=== PATIENT | female | born 1965 | race Caucasian/White ===

== ENCOUNTER → 2016-03-15 | Outpatient (CLI) | payer OTHER ==
--- NOTE | 2016-03-16 07:45 | REP ---
Clinical: Pain. Technique: AP, lateral, bilateral oblique and sunrise views of the left knee. Findings: Osteophyte formation along the lateral femoral condyle as well as tibial plateau and patellar margin are appreciated with associated increased sclerosis to the tibial surface and mild medial joint space narrowing. No acute fracture or dislocation. No obvious effusion. Impression: Mild tricompartmental osteoarthritic degenerative changes. Signed by Zachary Escamilla MD 03/16/2016 07:36 A
== END ==
LOC: M ADAMS 13:21
PROVIDERS: ATTEND Physician Assistant Medical
DX: M25.562 Pain in left knee (principal)

== ENCOUNTER → 2016-04-27 | Outpatient (CLI) | payer OTHER ==
--- NOTE | 2016-04-27 17:51 | REP ---
DUPLEX UPPER EXTREMITY ULTRASOUND: REASON: Arm pain. COMPARISON: None. Multiple sonographic images of the deep venous structures of the left upper extremity were obtained in the longitudinal and transverse scan planes along with Doppler interrogative technique, augmentation, and color flow imaging. There is a small amount of echogenic material seen in the left cephalic vein with a decreased response to augmentation. The remainder of the deep vein structures are normal. IMPRESSION: Small thrombus incompletely occluding the left cephalic vein questionably a deep venous structure. This should be correlated clinically with appropriate followup. Signed by Tommy Lin DO 04/27/2016 06:15 P
== END ==
LOC: M RAD 16:30
PROVIDERS: ATTEND Physician Assistant
DX: M77.12 Lateral epicondylitis, left elbow (principal)

== ENCOUNTER → 2016-04-27 | Outpatient (CLI) | payer OTHER ==
--- NOTE | 2016-04-27 16:00 | REP ---
Left elbow series: Five views: History: Lateral epicondylitis. Findings: Five views of the left elbow demonstrate normal alignment. Bones, joints, and soft tissues are unremarkable. No evidence of joint effusion, erosive change or periarticular calcification. No spurring is visible. Impression: Radiographically normal left elbow series. Signed by Maynor Bridges MD 04/27/2016 05:00 P
== END ==
LOC: M ADAMS 15:06
PROVIDERS: ATTEND Physician Assistant
DX: M77.12 Lateral epicondylitis, left elbow (principal)

== ENCOUNTER → 2016-04-27 | Outpatient (REF) | payer OTHER ==
[2016-04-27 20:18] LABS: BASO # 0.1 K/mm3 (0.0-0.2); BASO % 0.7 % (0.0-1.0); EOS # 0.2 K/mm3 (0.0-0.50); EOS % 1.8 % (0.0-3.0); LARGE UNSTAINED CELL # 0.4 K/mm3 (0.0-0.4); LARGE UNSTAINED CELL % 3.3 % (0.0-4.0); LYMPH # 3.8 K/mm3 (1.5-4.5); LYMPH % 36.5 % (24.0-44.0); MEAN CORPUSCULAR HEMOGLOBIN 31.9 pg (27.0-33.0); MEAN CORPUSCULAR HGB CONC 34.1 g/dl (32.0-36.5); MEAN CORPUSCULAR VOLUME 93.7 fl (80.0-96.0); MONO # 0.6 K/mm3 (0.0-0.8); MONO % 5.3 % (0.0-5.0); NEUTROPHILS # 5.5 K/mm3 (1.8-7.7); NEUTROPHILS % 52.4 % (36.0-66.0); PLATELET COUNT, AUTOMATED 234 k/mm3 (150-450); RED CELL DISTRIBUTION WIDTH 12.8 % (11.5-14.5); WHITE BLOOD COUNT 10.4 K/mm3 (4.0-10.0)
[2016-04-27 20:57] LABS: ERYTHROCYTE SEDIMENTATION RATE 15 mm/hr (0-20)
== END ==
LOC: M SFHCADAM 15:02
PROVIDERS: ATTEND Physician Assistant
DX: M77.12 Lateral epicondylitis, left elbow (principal)

== ENCOUNTER → 2016-06-08 | Outpatient (REF) | payer OTHER ==
[2016-06-08 19:39] LABS: MEAN CORPUSCULAR HEMOGLOBIN 31.9 pg (27.0-33.0); MEAN CORPUSCULAR HGB CONC 34.1 g/dl (32.0-36.5); MEAN CORPUSCULAR VOLUME 93.6 fl (80.0-96.0); RED CELL DISTRIBUTION WIDTH 13.2 % (11.5-14.5); WHITE BLOOD COUNT 10.9 K/mm3 (4.0-10.0)
== END ==
LOC: M SFHCADAM 14:18
PROVIDERS: ATTEND Physician Assistant
DX: I82.629 Acute embolism and thrombosis of deep veins of unspecified upper extremity (principal)

== ENCOUNTER 2016-12-04 05:09 | Emergency (ER) | payer OTHER, SELFPAY ==
[~2016-12-04] VITALS: Ht 160 cm; Wt 81.8 kg
[2016-12-04] MEDS ORDERED: METF500T13 PO (05:19)
[2016-12-04] MEDS ORDERED: LISI10TA4 PO (05:19)
[2016-12-04] MEDS ORDERED: XARE20TA PO (05:19)
[2016-12-04] MEDS ORDERED: METO50TA7 PO (05:19)
[2016-12-04] MEDS ORDERED: LEVO50TA5 PO (05:19)
[2016-12-04 05:21] VITALS: BP 138/100
== END 2016-12-04 07:30 | disposition left against medical advice (07) ==
LOC: M ED 05:09
DX: H57.9 Unspecified disorder of eye and adnexa (principal); Z53.29 Procedure and treatment not carried out because of patient's decision for other reasons

== ENCOUNTER 2016-12-11 15:02 | Emergency (ER) | payer OTHER, SELFPAY ==
[~2016-12-11] VITALS: Ht 160 cm; Wt 84.1 kg
[~2016-12-11 15:02] MED LIST: LEVO50TA5 PO; LISI10TA4 PO; METF500T13 PO; METO50TA7 PO; XARE20TA PO
[2016-12-11] MEDS ORDERED: TYLE325T5 PO (15:10)
[2016-12-11] MEDS ORDERED: ALBUTEROL SULFATE 2.5 MG/0.5 ML INH NEB SOLN NEB ONE (16:00)
--- NOTE | 2016-12-11 16:56 | REP ---
CHEST, TWO VIEWS: COMPARISON: 08/23/2014 There is no evidence of acute infiltrate. No pleural effusion is seen. The heart is normal in size. The mediastinal silhouette is unremarkable. The visualized osseous structures are intact. IMPRESSION: No acute pulmonary disease. Signed by Carlitos Barnhart MD 12/12/2016 07:56 P
[2016-12-11] MEDS ORDERED: predniSONE 20 MG TAB PO ONE (18:00)
[2016-12-11] MEDS ORDERED: ALBUTEROL 90 MCG/ACT 8GM HFA INHALER INH ONE (18:00)
[2016-12-11] MEDS ORDERED: PRED20TA PO (18:00)
[2016-12-11] MEDS ORDERED: PROAAER10 INH (18:02)
[2016-12-11 18:36] VITALS: BP 132/75
== END 2016-12-11 18:38 | disposition home or self-care (01) ==
LOC: M ED 15:02
DX: J20.9 Acute bronchitis, unspecified (principal); I10 Essential (primary) hypertension; E11.9 Type 2 diabetes mellitus without complications; Z86.718 Personal history of other venous thrombosis and embolism; J30.89 Other allergic rhinitis; F17.210 Nicotine dependence, cigarettes, uncomplicated

== ENCOUNTER → 2016-12-20 | Outpatient (REF) | payer OTHER ==
[~2016-12-20] MED LIST changes: +PRED20TA PO; +PROAAER10 INH; +TYLE325T5 PO
[2016-12-20 20:03] LABS: MEAN CORPUSCULAR HEMOGLOBIN 31.6 pg (27.0-33.0); MEAN CORPUSCULAR HGB CONC 33.3 g/dl (32.0-36.5); MEAN CORPUSCULAR VOLUME 94.9 fl (80.0-96.0); PLATELET COUNT, AUTOMATED 232 10^3/uL (150-450); RED CELL DISTRIBUTION WIDTH 13.2 % (11.5-14.5); WHITE BLOOD COUNT 11.3 10^3/uL (4.0-10.0)
[2016-12-20 20:43] LABS: ALBUMIN 3.3 GM/DL (3.2-5.2); ALBUMIN/GLOBULIN RATIO 0.85 (1.00-1.93); ALKALINE PHOSPHATASE 97 U/L (45-117); ALT/SGPT 41 U/L (12-78); ANION GAP 10 MEQ/L (8-16); AST/SGOT 26 U/L (15-37); BILIRUBIN,TOTAL 0.4 MG/DL (0.2-1.0); BLOOD UREA NITROGEN 6 MG/DL (7-18); CALCIUM LEVEL 9.1 MG/DL (8.5-10.1); CARBON DIOXIDE LEVEL 26 MEQ/L (21-32); CHLORIDE LEVEL 101 MEQ/L (98-107); CHOLESTEROL LEVEL 194 MG/DL (<200); GLOMERULAR FILTRATION RATE > 60.0 (>58); GLUCOSE, FASTING 142 MG/DL (70-105); POTASSIUM SERUM 4.4 MEQ/L (3.5-5.1); SODIUM LEVEL 137 MEQ/L (136-145); TOTAL PROTEIN 7.2 GM/DL (6.4-8.2); TRIGLYCERIDES LEVEL 466 MG/DL (<150)
== END ==
LOC: M SFHCADAM 11:44
PROVIDERS: ATTEND Physician Assistant
DX: I82.629 Acute embolism and thrombosis of deep veins of unspecified upper extremity (principal); E03.9 Hypothyroidism, unspecified; E11.9 Type 2 diabetes mellitus without complications; E78.5 Hyperlipidemia, unspecified; F17.200 Nicotine dependence, unspecified, uncomplicated; Z79.899 Other long term (current) drug therapy

== ENCOUNTER → 2017-03-28 | Outpatient (REF) | payer OTHER ==
[2017-03-28 20:20] LABS: HEMATOCRIT 44.8 % (36.0-47.0); HEMOGLOBIN 14.9 g/dl (12.0-16.0); MEAN CORPUSCULAR HEMOGLOBIN 31.5 pg (27.0-33.0); MEAN CORPUSCULAR HGB CONC 33.3 g/dl (32.0-36.5); MEAN CORPUSCULAR VOLUME 94.7 fl (80.0-96.0); PLATELET COUNT, AUTOMATED 229 10^3/uL (150-450); RED BLOOD COUNT 4.73 10^6/uL (4.00-5.40); RED CELL DISTRIBUTION WIDTH 12.8 % (11.5-14.5); WHITE BLOOD COUNT 11.7 10^3/uL (4.0-10.0)
[2017-03-28 20:37] LABS: ESTIMATED AVERAGE GLUCOSE 146 MG/DL (60-110); HEMOGLOBIN A1c 6.7 %
[2017-03-28 20:44] LABS: ALBUMIN 3.8 GM/DL (3.2-5.2); ALBUMIN/GLOBULIN RATIO 0.95 (1.00-1.93); ALKALINE PHOSPHATASE 84 U/L (45-117); ALT/SGPT 44 U/L (12-78); ANION GAP 7 MEQ/L (8-16); AST/SGOT 27 U/L (7-37); BILIRUBIN,TOTAL 0.4 MG/DL (0.2-1.0); BLOOD UREA NITROGEN 9 MG/DL (7-18); CARBON DIOXIDE LEVEL 28 MEQ/L (21-32); CHLORIDE LEVEL 104 MEQ/L (98-107); CREATININE FOR GFR 0.79 MG/DL (0.55-1.30); GLOMERULAR FILTRATION RATE > 60.0 (>58); GLUCOSE, FASTING 120 MG/DL (70-100); POTASSIUM SERUM 4.7 MEQ/L (3.5-5.1); SODIUM LEVEL 139 MEQ/L (136-145); TOTAL PROTEIN 7.8 GM/DL (6.4-8.2)
== END ==
LOC: M SFHCADAM 19:37
DX: E13.9 Other specified diabetes mellitus without complications (principal)

== ENCOUNTER → 2018-06-25 | Outpatient (REF) | payer OTHER ==
[2018-06-25 15:35] LABS: BLOOD UREA NITROGEN 8 MG/DL (7-18); CALCIUM LEVEL 9.3 MG/DL (8.5-10.1); CARBON DIOXIDE LEVEL 28 MEQ/L (21-32); CHLORIDE LEVEL 103 MEQ/L (98-107); CREATININE FOR GFR 0.84 MG/DL (0.55-1.30); GLOMERULAR FILTRATION RATE > 60.0 (>51); GLUCOSE, FASTING 149 MG/DL (70-100); POTASSIUM SERUM 4.7 MEQ/L (3.5-5.1); SODIUM LEVEL 137 MEQ/L (136-145)
[2018-06-25 15:53] LABS: HEMOGLOBIN A1c 7.5 %
== END ==
LOC: M SFHCADAM 12:59
PROVIDERS: ATTEND Physician Assistant
DX: I10 Essential (primary) hypertension (principal); E13.9 Other specified diabetes mellitus without complications

== ENCOUNTER → 2018-12-30 | Outpatient (REF) | payer OTHER ==
[2018-12-30 14:07] LABS: HEMATOCRIT 45.4 % (36.0-47.0); MEAN CORPUSCULAR HEMOGLOBIN 31.8 pg (27.0-33.0); MEAN CORPUSCULAR VOLUME 96.2 fl (80.0-96.0); PLATELET COUNT, AUTOMATED 228 10^3/uL (150-450); RED BLOOD COUNT 4.72 10^6/uL (4.00-5.40); WHITE BLOOD COUNT 9.7 10^3/uL (4.0-10.0)
[2018-12-30 14:22] LABS: ALBUMIN 3.6 GM/DL (3.2-5.2); ALT/SGPT 55 U/L (12-78); BILIRUBIN,TOTAL 0.6 MG/DL (0.2-1.0); BLOOD UREA NITROGEN 11 MG/DL (7-18); CALCIUM LEVEL 9.5 MG/DL (8.5-10.1); CARBON DIOXIDE LEVEL 29 MEQ/L (21-32); CHLORIDE LEVEL 102 MEQ/L (98-107); CHOLESTEROL LEVEL 133 MG/DL (<200); CREATININE FOR GFR 0.87 MG/DL (0.55-1.30); GLOMERULAR FILTRATION RATE > 60.0 (>51); GLUCOSE, FASTING 167 MG/DL (70-100); HDL CHOLESTEROL 35 MG/DL (>40); LDL CHOLESTEROL 19 MG/DL (<100); NON-HDL-C 98 MG/DL; POTASSIUM SERUM 4.4 MEQ/L (3.5-5.1); SODIUM LEVEL 140 MEQ/L (136-145); TOTAL PROTEIN 7.5 GM/DL (6.4-8.2); TRIGLYCERIDES LEVEL 395 MG/DL (<150)
[2018-12-30 14:44] LABS: MAU/CREAT RATIO 24.6 MCG/MG (0.0-30.0)
[2018-12-30 15:18] LABS: HEMOGLOBIN A1c 7.7 %
== END ==
LOC: M SFHCADAM 08:23
PROVIDERS: ATTEND Physician Assistant
DX: E03.9 Hypothyroidism, unspecified (principal); F17.210 Nicotine dependence, cigarettes, uncomplicated; E11.9 Type 2 diabetes mellitus without complications; E78.00 Pure hypercholesterolemia, unspecified

== ENCOUNTER → 2019-04-07 | Outpatient (REF) | payer OTHER ==
[2019-04-07 14:03] LABS: BLOOD UREA NITROGEN 11 MG/DL (7-18); CALCIUM LEVEL 9.5 MG/DL (8.5-10.1); CARBON DIOXIDE LEVEL 26 MEQ/L (21-32); CHLORIDE LEVEL 103 MEQ/L (98-107); CREATININE FOR GFR 0.81 MG/DL (0.55-1.30); FREE T4 1.14 NG/DL (0.76-1.46); GLOMERULAR FILTRATION RATE > 60.0 (>51); GLUCOSE, FASTING 147 MG/DL (70-100); POTASSIUM SERUM 4.7 MEQ/L (3.5-5.1); SODIUM LEVEL 138 MEQ/L (136-145)
[2019-04-07 14:34] LABS: HEMOGLOBIN A1c 7.4 %
== END ==
LOC: M SFHCADAM 09:59
PROVIDERS: ATTEND Physician Assistant
DX: E11.21 Type 2 diabetes mellitus with diabetic nephropathy (principal); E03.9 Hypothyroidism, unspecified

== ENCOUNTER 2019-05-15 07:35 | Inpatient (IN) | payer OTHER ==
[2019-05-15] VITALS (15 sets, daily range): BP systolic 112–179; BP diastolic 62–94
[~2019-05-15] VITALS: Ht 160 cm; Wt 87.8 kg
[~2019-05-15 07:35] MED LIST changes: +ceFAZolin SOD 2 GM in IV 1 EA IV ONE
[2019-05-15 08:11] LABS: BASO # 0.1 10^3/uL (0.0-0.2); BASO % 0.4 % (0.0-1.0); EOS # 0.2 10^3/uL (0.0-0.5); EOS % 1.4 % (0.0-3.0); HEMATOCRIT 41.1 % (36.0-47.0); HEMOGLOBIN 13.7 g/dl (12.0-15.5); LYMPH # 3.8 10^3/uL (1.5-5.0); LYMPH % 32.2 % (24.0-44.0); MEAN CORPUSCULAR HEMOGLOBIN 31.6 pg (27.0-33.0); MEAN CORPUSCULAR HGB CONC 33.3 g/dl (32.0-36.5); MEAN CORPUSCULAR VOLUME 94.7 fl (80.0-96.0); MONO # 0.9 10^3/uL (0.0-0.8); MONO % 7.2 % (0.0-5.0); NEUTROPHILS # 6.9 10^3/uL (1.5-8.5); NEUTROPHILS % 58.5 % (36.0-66.0); PLATELET COUNT, AUTOMATED 305 10^3/uL (150-450); RED BLOOD COUNT 4.34 10^6/uL (4.00-5.40); WHITE BLOOD COUNT 11.8 10^3/uL (4.0-10.0)
[2019-05-15] MEDS ORDERED: ACETAMINOPHEN 325 MG TAB PO ONE (08:30)
[2019-05-15] MEDS ORDERED: COMBIVENT RESPIMAT 100-20MCG INHALER 4GM INH ONE (08:30)
[2019-05-15 08:36] LABS: ALBUMIN 3.7 GM/DL (3.2-5.2); ALT/SGPT 30 U/L (12-78); BILIRUBIN,DIRECT 0.1 MG/DL (0.0-0.2); BILIRUBIN,TOTAL 0.3 MG/DL (0.2-1.0); BLOOD UREA NITROGEN 8 MG/DL (7-18); CALCIUM LEVEL 9.8 MG/DL (8.5-10.1); CARBON DIOXIDE LEVEL 24 MEQ/L (21-32); CHLORIDE LEVEL 100 MEQ/L (98-107); CK-MB VALUE MASS < 1.0 NG/ML (<3.6); CPK CREATINE PHOSPHOKINASE 76 U/L (26-192); CREATININE FOR GFR 0.85 MG/DL (0.55-1.30); GLOMERULAR FILTRATION RATE > 60.0 (>51); GLUCOSE, FASTING 157 MG/DL (70-100); LIPASE 216 U/L (73-393); MB/CK RELATIVE INDEX 1.32 (< OR =4); NT-PRO BNP 77 PG/ML (<125); POTASSIUM SERUM 4.5 MEQ/L (3.5-5.1); SODIUM LEVEL 132 MEQ/L (136-145); TOTAL PROTEIN 7.7 GM/DL (6.4-8.2); TROPONIN I < 0.02 NG/ML (< 0.10)
[2019-05-15] MEDS ORDERED: LEVO75TA4 PO (08:42)
[2019-05-15] MEDS ORDERED: ATOR40TA75 PO (08:42)
[2019-05-15] MEDS ORDERED: METF10004 PO (08:42)
[2019-05-15] MEDS ORDERED: GLUC500C37 PO (08:44)
[2019-05-15] MEDS ORDERED: VITA200028 PO (08:44)
--- NOTE | 2019-05-15 08:57 | REP ---
PORTABLE CHEST X-RAY: SINGLE VIEW. HISTORY: Chest pain. Comparison chest x-ray: December 11, 2016. FINDINGS: Cardiac silhouette is rather dramatically larger than it was December 11, 2016. Cardiac chamber enlargement versus pericardial effusion. There is mediastinal widening bilaterally as well. Vascular engorgement versus adenopathy. The lung zheng are clear. Pulmonary vasculature is not increased. Pleural angles are sharp. IMPRESSION: Moderate new cardiomegaly. Widened mediastinum most likely vascular engorgement. Cannot exclude adenopathy. Electronically Signed by Maynor Bridges MD 05/15/2019 09:31 A
[2019-05-15] MEDS ORDERED: ISOVUE-370 76% 100ML VIAL (Q9967) As Ordered ONE (09:26)
--- NOTE | 2019-05-15 10:24 | REP ---
CT PULMONARY ANGIOGRAM: With IV contrast. HISTORY: Chest pain. COMPARISON STUDIES: Comparison is made with today's portable chest x-ray. CONTRAST DOSE: 75 mL of Isovue [address] TECHNIQUE: Helical scanning is acquired and overlapping 1.5 mm and contiguous 3 mm axial images are reformatted. In addition, maximum intensity projection and multiplanar re-formation images are generated in sagittal and coronal imaging projections. CT PULMONARY ANGIOGRAPHIC FINDINGS: There is evidence of a diffuse goiter. In addition, there is bulky pretracheal and paratracheal mediastinal lymphadenopathy, measuring 6 x 6 cm in transverse dimension at the level of the top of the arch. This correlates with the mediastinal widening superiorly. There are scattered smaller nodes in the AP window region of the mediastinum and the just anterior to the superior vena cava. The superior vena cava is displaced laterally by the adenopathy and slightly compressed. It is patent. There is good opacification of the pulmonary arterial tree. There is no CT evidence to suggest pulmonary embolus. No aortic aneurysm or dissection is seen. There is however a large pericardial effusion and there is some flattening of the interventricular septum. Large pericardial effusion accounts for the widening of the cardiac silhouette on the radiographs. There is subcarinal lymphadenopathy. No visible upper abdominal nodes are seen. Visualized upper abdominal structures are unremarkable. The lung zheng are clear. No infiltrate is seen. No pleural effusion is seen. IMPRESSION: Bulky mediastinal lymphadenopathy. Large pericardial effusion. Slight straightening of the interventricular septum which may be a feature of right heart strain . Diffuse goiter at the thoracic inlet. Mild compression of the superior vena cava. Findings suggestive of lymphoma versus other metastatic malignancy with secondary pericardial effusion. Electronically Signed by Maynor Bridges MD 05/15/2019 12:08 P
[2019-05-15] MEDS ORDERED: BISACODYL 10 MG SUPP PR PRN (10:30)
[2019-05-15] MEDS ORDERED: ACETAMINOPHEN TAB 650MG DOSE (2X325MG) PO PRN (10:30)
[2019-05-15] MEDS ORDERED: ONDANSETRON 4MG/2ML VIAL (J2405) IV PRN ×2 (10:30→17:00)
[2019-05-15] MEDS ORDERED: LEVALBUTEROL 1.25 MG/0.5 ML CONCENTRATE NEB NEB PRN (10:30)
[2019-05-15 10:45] LABS: INR 1.01
[2019-05-15] MEDS ORDERED: ACET-683 PO (10:51)
[2019-05-15] MEDS ORDERED: THERTAB52 PO (10:53)
[2019-05-15] MEDS ORDERED: ACETAMINOPHEN 500 MG TAB PO PRN (11:15)
[2019-05-15] MEDS: MOM 30ML SUSPENSION UDC PO SCH (11:25)
[2019-05-15] MEDS ORDERED: GLUCOSE 4 GM CHEW TABLET PO PRN (11:45)
[2019-05-15] MEDS ORDERED: DEXTROSE 50% 50 ML SYRINGE IV PRN (11:45)
[2019-05-15] MEDS ORDERED: GLUCAGON FOR INJ 1 MG VIAL (J1610) SC PRN (11:45)
[2019-05-15] MEDS: HumaLOG INSULIN (NovoLOG) PER UNIT SC SCH ×2 (12:00→18:02)
[2019-05-15] MEDS ORDERED: BUPIVACAINE HCL 0.25% 10 ML VIAL As Ordered ONE (12:13)
[2019-05-15] MEDS ORDERED: BUPIVACAINE LIPOSOME/PF 1.3% 20ML VIAL (13.3MG/ML)(EXPAREL)(C9290 PER1MG) As Ordered ONE ×2 (12:13→14:08)
[2019-05-15] MEDS ORDERED: THROMBIN SOLN 20,000 UNITS KIT As Ordered ONE (12:25)
[2019-05-15] MEDS ORDERED: EPINEPHrine 1MG/10ML SYRINGE 1.5IN As Ordered ONE (12:26)
[2019-05-15] MEDS ORDERED: CETACAINE SPRAY 5GM As Ordered ONE (12:26)
[2019-05-15] MEDS ORDERED: MUPIROCIN 2% OINT 22 GM TUBE As Ordered ONE (12:26)
[2019-05-15] MEDS ORDERED: ALBUTEROL SULFATE 2.5 MG/0.5 ML INH NEB SOLN NEB PRN (12:30)
[2019-05-15] MEDS: PANTOPRAZOLE 40MG TAB (PROTONIX) PO SCH (12:30)
[2019-05-15] MEDS: DOCUSATE SODIUM 100 MG CAP PO SCH ×2 (12:30→20:37)
[2019-05-15] MEDS: KETOROLAC 30 MG/ML VIAL (J1885) IV SCH ×2 (12:30→17:41)
[2019-05-15] MEDS: HEPARIN SOD (PORCINE) 5000 UNITS/ML VIAL (J1644 PER 1000UNITS) SC SCH ×2 (12:30→20:36)
[2019-05-15 13:04] LABS: CK-MB VALUE MASS < 1.0 NG/ML (<3.6); CPK CREATINE PHOSPHOKINASE 70 U/L (26-192); MB/CK RELATIVE INDEX 1.43 (< OR =4); NT-PRO BNP 63 PG/ML (<125); TROPONIN I < 0.02 NG/ML (< 0.10)
[2019-05-15] MEDS ORDERED: ceFAZolin 2 GM/D5W 50 ML IV BAG (J0690 PER 500MG) As Ordered ONE (13:08)
--- NOTE | 2019-05-15 13:32 | HPE ---
DATE OF ADMISSION: 05/15/2019 CHIEF COMPLAINT: "my ears felt clogged. I couldn't lay down in bed." HISTORY OF PRESENT ILLNESS: This is a 54-year-old female who presented to the emergency room with sinus and ear problems since Sunday into Sunday. The patient says that her ears felt clogged and that she could not breathe very well through her nose. She otherwise denies any fever or chills. She has a chronic cough on and off, but usually clear. She had taken some Tylenol without any improvement. She took some sinus severe over the counter acetaminophen without any improvement. She thought that her cough was due to allergies that she gets this time of year. She has noticed that when she lays down at less than 45 degrees that she has trouble breathing and cannot get comfortable. She otherwise denies any night sweats. She denies any shortness of breath. She says that she is able to walk her four dogs around [place] one lap per dog without any difficulty. She denies any dyspnea on exertion. No chest pain, pressure or tightness. No lightheadedness or dizziness. She otherwise denies any weight loss when she was seen by Yeny Joiner in March, she weighs around 193 pounds and has not changed since. Her appetite has been the same. She denied any weakness, fatigue. She does get some diarrhea when she eats greasy food, but has not had any for a long time. She denies any bright red blood per rectum, melena or black tarry stools. [place] and says that she was managing okay, cooking and cleaning, doing the laundry, without any difficulty. She came into the hospital today because of the persistent sinus congestion as well as difficulty laying down in bed with some congestion. The patient denies any documented weight loss. She denies any night sweats. No changes in energy. Her appetite has been the same. She has had no recent travel and no sick contacts. The patient continues to smoke cigarettes, but has no diagnosis of chronic obstructive pulmonary disease (COPD) or emphysema. She is down to a 1/2 pack per day from her chronic 1 pack a day since she was a teenager. She otherwise has not had any use of any inhalers. She has not seen a airline reservationist in the past. Never had any heart issues or heart attack. She is a known diabetic and hypertensive. No headaches. No changes in vision. In the ER, she was found to have cardiomegaly on chest x-ray and tachycardic. CT of chest performed shows a large pericardial effusion. Dr. Woody Quispe, thoracic surgery, was consulted for stat echo. The patient has been kept nothing by mouth (n.p.o.) to go into the OR. She has bulky lymphadenopathy. Differential diagnosis includes lymphoma or primary lung cancer in light of the smoking history. The hospitalist was called to admit. The patient has been signed out to Dr. Silvino Cardona, [facility] provider, today. PAST MEDICAL HISTORY: 1. Diabetes. 2. Hypertension. 3. Hypercholesterolemia. 4. Active smoking, has smoked over 30 pack years of smoking and still at less than 1/2 a pack per day. 5. Hypothyroidism. 6. Bilateral degenerative disk disease of the hips. 7. Lumbar disk disease. 8. She had a deep vein thrombosis (DVT) in the upper arm in 2017, completed anticoagulation. 9. Nicotine dependence. ALLERGIES: No known drug allergies. SURGICAL HISTORY: 1. Tubal ligation. HOME MEDICATIONS: - metformin 1 gram twice a day and 500 q.p.m. - glucosamine one tablet twice a day - multivitamin one tablet q.p.m. - Tylenol 1 gram q. 6 hours as needed - Atorvastatin 40 mg q.p.m. - Vitamin D 2000 units q.p.m. - levothyroxine 75 mg q.a.m. - lisinopril 10 mg q.p.m. 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 She lives in [place] along with her and four dogs. She has a glass of wine, the last one was New Years Saundra. She does not usually drink on a weekly basis. Denies any recreational drug use. The patient had been smoking a pack a day since she was a teenager and down to about a 1/2 pack a day now, about a 30 pack year history of smoking. No other relatives in the home. No other pets. No recent travel. No sick exposure. FAMILY HISTORY: Mother is with heart failure at age 74, diabetes, hypertension, and hypercholesterolemia. Father still alive, age 75, with hypertension, Meniere's disease. She has one brother and one sister, both of which have hypertension. Maternal grandmother with questionable cancer. No breast, colon, or ovarian cancer in the family. REVIEW OF SYSTEMS: Per history of present illness (HPI), 12 point system otherwise negative. PHYSICAL EXAMINATION: Temperature 97.8, pulse 105, respiratory rate 20, blood pressure 140/66, 98% on room air. Generally, the patient is awake, alert and oriented times three, answering questions appropriately. She is in no respiratory distress. Currently at 45 degrees angle on the bed in the intensive care unit with an echo being done at the bedside. The patient has jugular venous distention (JVD). No thyromegaly or cervical lymphadenopathy. Moist mucous membranes. Pupils round and reactive, anicteric, with no jaundice. No use of respiratory accessory muscles. There is no carotid bruit. No stridor. Lungs are clear to auscultation. No wheezing, rales or rhonchi. Air entry is equal. Heart: S1, S2. Distant heart sounds with slightly displaced point of maximal impulse. Positive jugular venous distention. Abdomen is soft, nontender and nondistended. Obese abdomen. Extremities: No cyanosis or clubbing. Skin: [place] in color, dry, warm to touch. LABORATORY DATA: White count 11.8, hemoglobin 13, hematocrit 41, platelet count 305, with 58% neutrophils, 32% lymphocytes, 7% monocytes, 1.4 eosinophils. Sodium 132, potassium 4.5, chloride 100, bicarbonate 24, BUN 8, creatinine 0.85, glucose 157, calcium 9.8, total bilirubin 0.3, direct bilirubin 0.1, AST 13, ALT 30, alkaline phosphatase 70, total CK 76, MB fraction less than 1, troponin less than 0.02, BNP 77, total protein 7.7, albumin 3.7, lipase 216. INR 1.01. Respiratory panel 05/15/[address] is negative. IMAGING STUDIES: CT of chest with evidence of diffuse goiter. In addition, there is bulky pretracheal and peritracheal mediastinal lymphadenopathy measuring 6x6 cm in transverse dimension at the level of the arch, correlating with mediastinal widening superiorly. There are scattered smaller nodes in the AP window of the mediastinum anterior to superior vena cava. The superior vena cava is displaced laterally by the adenopathy and slightly compressed. It is patent. There is good opacification of the pulmonary arterial tree. There is no CT evidence to suggest pulmonary embolism. There is a large pericardial effusion and flattening of the interventricular septum that accounts for widening of the cardiac silhouette on the radiograph. There is a subcarinal lymphadenopathy with no visible upper abdominal nodes. Visualized upper abdominal structures are unremarkable. The lungs are clear. No infiltrate is seen. No pleural effusion is seen. Bulky mediastinal lymphadenopathy. Large pericardial effusion. Slight straightening of the interventricular septum which may be a feature of right heart strain. Diffuse goiter at the thoracic inlet. Mild compression of the superior vena cava. Findings suggestive of lymphoma versus other metastatic malignancy with secondary pericardial effusion. ASSESSMENT AND PLAN: This is a 54-year-old female with history of diabetes, hypertension, obesity, hypercholesterolemia, and active smoking, who presents to the emergency room with complaints of unable to lie down, feeling uncomfortable, with nasal congestion and ear fullness. The patient was found to have a large pericardial effusion with bulky mediastinal and hilar lymphadenopathy and diffuse goiter. She was admitted as an inpatient to the intensive care unit for emergency pericardial window. IMPRESSION: 1. Large pericardial effusion. In light of previous history of smoking and bulky lymphadenopathy, most likely secondary to a malignancy. Whether this is primary or due to lymphoma, we are currently uncertain. Thoracic surgeon, Dr. Woody Quispe, has been consulted for an emergent pericardial window and possible drainage placement. She is currently kept n.p.o. on IV fluids. Hyperglycemic protocol in light of her history of diabetes. Her has been made aware of the emergent need to bring her to surgery and stat echocardiogram has been performed. She still has good blood pressure, maintaining 140 to 150 and 98% on room air. Depending on the cytology report, will defer to Dr. Silvino Cardona, who is the [facility] physician secondary connector armature today to consult medical oncology in the near future. Will check Coxsackie virus, LOIS, as part of the differential. 2. Goiter. Check thyroid function tests and adjust patient's Synthroid as needed. Due to recent contrast study, we are unable to get radioactive iodine thyroid uptake scan, but may benefit from a thyroid ultrasound, which can be deferred in light of the emergent need for pericardial window today. 3. Hypertension. Currently controlled on metoprolol and lisinopril. Patient is not suffering for acute hypotension and does not appear to be in tamponade at this time. 4. Active smoking. The patient has been given a nicotine patch. She has been counseled about smoking cessation in light of the bulky lymphadenopathy and pericardial effusion. There is still a likelihood that this could be a primary lung cancer. We will await the cytology reports. Nebulizer treatments as needed. She does not appear to have any significant wheezing. Her lungs are clear on auscultation. 5. Type 2 diabetes. Due to n.p.o. status, the patient will be kept on IV fluids while nothing by mouth as she is headed to the operating room for a pericardial window. Hyperglycemic protocol and finger sticks every 6 hours. Hold oral hypoglycemics during the hospital stay in light of the recent IV contrast. Her metformin will also be held due to increased risk of lactic acidosis. 6. Vitamin D deficiency. Once she is taking oral intake, she may be resumed back on her home dose of vitamin D. 7. Hypercholesterolemia. Check lipid panel in the morning. 8. Obesity. Body mass index (BMI) of 34. Complicating care. No documented history of any obstructive sleep apnea. 9. Deep vein thrombosis prophylaxis. Compression stockings. The patient is going to the operating room and cannot be placed on anticoagulant. 10. Diet. Nothing by mouth status with IV fluids as the patient is going to the operating room. Patient has been signed out to [facility] Provider, Dr. Silvino BROWN
[2019-05-15] MEDS ORDERED: ROCURONIUM BROMIDE 50 MG/5 ML VIAL As Ordered ONE ×2 (13:35→13:46)
[2019-05-15] MEDS ORDERED: LIDOCAINE 2% INJ 100 MG/5 ML SDV (FOR ANES.) As Ordered ONE (13:35)
[2019-05-15] MEDS ORDERED: dexameTHASONE 4 MG/ML 1ML VIAL (J1100) As Ordered ONE (13:35)
[2019-05-15] MEDS ORDERED: propofoL 200 MG/20 ML VIAL As Ordered ONE (13:35)
[2019-05-15] MEDS ORDERED: MIDAZOLAM INJ 2 MG/2 ML VIAL (J2250) As Ordered ONE ×2 (13:35→16:11)
[2019-05-15] MEDS ORDERED: ONDANSETRON 4MG/2ML VIAL (J2405) As Ordered ONE (13:35)
[2019-05-15] MEDS ORDERED: fentaNYL 100 MCG/2 ML INJECTION (J3010) As Ordered ONE ×2 (13:35→13:36)
[2019-05-15] MEDS ORDERED: PHENYLephrine HCL 500 MCG/5 ML (100MCG/ML) SYRINGE (J2370) As Ordered ONE ×2 (13:38→13:44)
[2019-05-15] MEDS ORDERED: SUGAMMADEX SODIUM 500 MG/5 ML VIAL (BRIDION) As Ordered ONE (13:47)
--- NOTE | 2019-05-15 13:53 | CR ---
DATE OF CONSULTATION: 05/15/2019 The patient seen at the request of Dr. Husain and the hospitalist service for pericardial effusion and a mediastinal mass. HISTORY OF PRESENT ILLNESS: The patient is a 54-year-old white female who has noticed that her sinuses and her nose have been stuffy and running. She, however, has not had a cough nor sputum production. She has noticed that the last 3 days, she has not been able to lie flat and has propped herself up on pillows in order to breathe at night. Nonetheless, she does not complain of shortness of breath on exertion and is able to walk all four of her dogs without difficulty. When she does cough, she has increased chest pain. The chest pain is centered in the middle of the chest. Her cough has come in paroxysms. She attributed her cough to a postnasal drip. She has had no fevers, chills, or sweats, and no weight loss. She was seen in the emergency room where a chest x-ray revealed a large globular heart, and a chest CT revealed a moderate pericardial effusion with a large mediastinal mass. PAST MEDICAL HISTORY: 1. Diabetes. 2. Hypertension. 3. Hypercholesterolemia. 4. Hypothyroidism. PAST SURGERIES: A tubal ligation at the age of 28. 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 EXPOSURES: She has four dogs, David, at home. No birds or cats. No prior exposure to tuberculosis. HABITS: She smokes about 1/2 pack per day of cigarettes that she obtains from the [facility] [place]. She does not imbibe alcohol and no illicit drugs. TRAVEL HISTORY: No travel to the [facility] or [facility]. No foreign travel. FAMILY HISTORY: Mother of cardiac complications. Father is alive and well with diabetes. REVIEW OF SYSTEMS: CONSTITUTIONAL: See history of present illness (HPI). EYES: Without diplopia, amaurosis fugax, or prior jaundice. NOSE: Without epistaxis. MOUTH: Has dentures. PULMONARY: See HPI. CARDIAC: See HPI. Without intermittent claudication. Has noted some increased swelling in her ankles lately and indentation of her legs with her socks. No prior history of myocardial infarction. GASTROINTESTINAL (GI): Without nausea, vomiting, diarrhea, constipation, melena, hematochezia, hematemesis, or abdominal pain. GENITOURINARY (): Without hematuria or dysuria or prior history of renal stones. ENDOCRINE: With diabetes and with hypothyroidism. NEUROLOGICAL: Without paresthesias, paralyses, or prior seizures. HEMATOLOGIC: Without prolonged bleeding times. PSYCHIATRIC: Without pathological anxieties, depressions, or psychoses. INVESTIGATIONS: White count is 11.8 with a hemoglobin and hematocrit of 13.7 and 41.1 with a platelet count of 305. Differential shows 58% neutrophils, 32% lymphocytes, and 7% monocytes. There are no immature forms, no toxic granulations. Her electrolytes show a sodium of 132 with the remainder of electrolytes normal. The BUN and creatinine of 8 and 0.85 and a glucose of 157, an AST and ALT of 13 and 30 respectively. Albumin is 3.7. Troponin is less than 0.02. PT/INR is 13.0 and 1.01 respectively. Her chest x-ray shows a very large globular heart. It is done portably. Costophrenic angles are sharp. I see no infiltrates on the AP view. Chest CT done with contrast under angiographic protocol does not show a pulmonary embolism. She has a large mediastinal mass which measures 6 x 6 cm. It is not compressing the trachea. The esophagus is displaced. It extends almost to the sternal notch. She has a concentric pericardial effusion, however, more posterior than lateral. Maximum measurements are 2 cm laterally and 1 cm anteriorly. I do not see any lung masses per se. There are no liver lesions in that portion of the liver that is visualized on the CT scan. Adrenals have a normal configuration. The spleen looks to have a normal size. SVC is compressed to 6 x 8 mm just superior to right pulmonary artery crossing beneath it. Echocardiogram shows right atrial collapse. There is not enough room anteriorly to safely place a tube pericardiostomy per continuously. IMPRESSION: 1. Pericardial effusion. 2. Mediastinal mass. 3. Diabetes. 4. Hypertension. 5. Hypothyroidism. 6. Hypercholesterolemia. 7. Impending SVC syndrome with SVC compression PLAN AND DISCUSSION: The first order of business is to relieve the pericardial effusion. I will, therefore, take her to the operating room where I will undertake a pericardial window. Will then proceed to a mediastinoscopy and take samples of the mass. Hopefully, we will have a diagnosis by end of the day or at least by tomorrow. I will send them for frozen sections, as well as permanent sections. The patient understands the risks and benefits of the operation and is willing to proceed. I have spoken to her over the phone, as he is not allowed in the hospital per Department of Health ([place]) directive. MTDD
[2019-05-15] MEDS: LEVALBUTEROL 1.25 MG/0.5 ML CONCENTRATE NEB NEB SCH ×2 (14:00→20:01)
[2019-05-15] MEDS ORDERED: NORCO, ANEXSIA 5/325MG TABLET (HYDROcodone/ACETAMINOPHEN) PO PRN (14:30)
[2019-05-15] MEDS ORDERED: PERCOCET 5MG/325MG TAB PO PRN ×2 (14:30)
[2019-05-15 15:00] LABS: APPEARANCE, BODY FLUID TURBID (CLEAR); SOURCE, BODY FLUID PERICARDIAL; SPEC. GRAVITY BODY FLUIDS 1.036 (NOT ESTABLISHED)
[2019-05-15 15:01] LABS: PH BODY FLUID 7.784 UNITS (NOT ESTABLISHED); SOURCE, BODY FLUID pH PERICARDIAL
[2019-05-15 15:35] LABS: LDH, BODY FLUID 847 U/L (NOT ESTABLISHED); SOURCE, BODY FLUID ALBUMIN PERICARDIAL; SOURCE, BODY FLUID GLUCOSE PERICARDIAL; SOURCE, BODY FLUID LDH PERICARDIAL; SOURCE, BODY FLUID TOT PROTEIN PERICARDIAL; TOTAL PROTEIN, BODY FLUID 6.2 G/DL (NOT ESTABLISHED)
[2019-05-15] MEDS ORDERED: ACETAMINOPHEN 1000MG 100ML IV BTL (OFIRMEV) (J0131 PER 10MG) As Ordered ONE (15:38)
[2019-05-15] MEDS ORDERED: HYDROmorphone HCL 2 MG/ML 1ML VIAL (J1170) As Ordered ONE (16:16)
[2019-05-15 16:51] LABS: ABG BASE EXCESS -5.6 (-2.0-2.0); ABG HCO3 20.9 MEQ/L (22.0-26.0); ABG PARTIAL PRESSURE CO2 44.4 mmHg (35.0-45.0); ABG PARTIAL PRESSURE O2 81.4 mmHg (75.0-100.0); ABG STANDARD HCO3 19.8 MEQ/L (22.0-26.0); ABG TOTAL CO2 22.2 MEQ/L (22.0-29.0)
[2019-05-15] MEDS ORDERED: LR 1,000 ML IV SCH (17:00)
[2019-05-15] MEDS ORDERED: oxyCODONE 5MG TAB PO PRN (17:00)
[2019-05-15] MEDS ORDERED: METOCLOPRAMIDE INJ 10MG/2ML VIAL (J2765) IV PRN (17:00)
[2019-05-15] MEDS ORDERED: fentaNYL 100 MCG/2 ML INJECTION (J3010) IV PRN (17:00)
[2019-05-15 17:09] LABS: BASO % 0.2 % (0.0-1.0); EOS % 0.2 % (0.0-3.0); HEMATOCRIT 40.4 % (36.0-47.0); HEMOGLOBIN 13.4 g/dl (12.0-15.5); LYMPH # 2.6 10^3/uL (1.5-5.0); LYMPH % 15.1 % (24.0-44.0); MEAN CORPUSCULAR HEMOGLOBIN 31.8 pg (27.0-33.0); MEAN CORPUSCULAR HGB CONC 33.2 g/dl (32.0-36.5); MEAN CORPUSCULAR VOLUME 95.7 fl (80.0-96.0); MONO # 0.4 10^3/uL (0.0-0.8); MONO % 2.4 % (0.0-5.0); NEUTROPHILS % 81.4 % (36.0-66.0); PLATELET COUNT, AUTOMATED 303 10^3/uL (150-450); RED BLOOD COUNT 4.22 10^6/uL (4.00-5.40); WHITE BLOOD COUNT 17.2 10^3/uL (4.0-10.0)
[2019-05-15 17:13] LABS: BLOOD UREA NITROGEN 7 MG/DL (7-18); CALCIUM LEVEL 8.1 MG/DL (8.5-10.1); CARBON DIOXIDE LEVEL 22 MEQ/L (21-32); CHLORIDE LEVEL 105 MEQ/L (98-107); GLOMERULAR FILTRATION RATE > 60.0 (>51); GLUCOSE, FASTING 236 MG/DL (70-100); SODIUM LEVEL 135 MEQ/L (136-145)
--- NOTE | 2019-05-15 17:16 | REP ---
PORTABLE CHEST: AP portable view of the chest is performed and compared to prior study of 05/15/2019, earlier today. A drainage tube is seen overlying the right lung base and another is seen overlying the upper abdomen just to the right of midline. There has been drainage of the large pericardial effusion. There is a small amount of pericardial air noted. The cardiac silhouette has significantly decreased in size. Mediastinal mass is again noted. There appears to be a tiny right apical pneumothorax present. No infiltrate is seen in either lung. Electronically Signed by Carlitos Barnhart MD 05/15/2019 05:45 P
[2019-05-15] MEDS: KCL 20MEQ IN D5/NS 1000ML 1,000 ML IV SCH (17:40)
--- NOTE | 2019-05-15 17:43 | REPVR ---
PROCEDURE INFORMATION: Exam: CT Chest Without Contrast Exam date and time: 05/15/2019 4:54 PM Age: 54 years old Clinical indication: Other: Mediastinal hematoma; Additional info: Mediastinal hematoma after mediastinoscopy? ? TECHNIQUE: Imaging protocol: Computed tomography of the chest without contrast. 3D rendering: MIP and/or 3D reconstructed images were created by the technologist. Radiation optimization: All CT scans at this facility use at least one of these dose optimization techniques: automated exposure control; mA and/or kV adjustment per patient size (includes targeted exams where dose is matched to clinical indication); or iterative reconstruction. COMPARISON: CT ANGIO CHEST 05/15/2019 9:38 AM FINDINGS: Thyroid: Redemonstration of enlarged thyroid gland, potentially reflecting goiter. Lungs: Inferior approach right thoracostomy catheter in place. Trace right apical pneumothorax, likely secondary to placement of thoracostomy tube. Linear atelectasis in the right lower lobe. Heart: No cardiomegaly. Resolution of previously seen pericardial effusion, status post placement of inferior drainage catheter. Mediastinum: Small degree of anterior mediastinal gas, likely postprocedural. Aorta: Mild atherosclerotic calcifications of the aorta. Lymph nodes: Redemonstration of bulky conglomerate mediastinal adenopathy versus mediastinal mass. Bones/joints: No acute osseus lesion or fracture. Soft tissues: Postprocedural gas within the soft tissues of the anterior chest wall and neck. IMPRESSION: 1. Postoperative changes compatible with mediastinoscopy and placement of multiple surgical drains/tubes, as detailed above. 2. No evidence of acute anterior mediastinal hematoma. 3. Redemonstration of bulky conglomerate mediastinal adenopathy versus mediastinal mass. 4. Trace right apical pneumothorax, likely secondary to placement of right thoracostomy tube. 5. Resolution of previously seen pericardial effusion, status post placement of inferior drainage catheter. 6. Redemonstration of enlarged thyroid gland, potentially reflecting goiter. Recommend correlation with thyroid ultrasound. Electronically signed by: Maxim Mckeon On 05/15/2019 17:42:55 PM
[2019-05-15] MEDS: dexameTHASONE 20 MG/5 ML VIAL (J1100) IV SCH (18:02)
[2019-05-15] MEDS: METOPROLOL TART 50 MG TAB PO SCH (20:36)
[2019-05-15] MEDS: ceFAZolin SOD 1 GM in D5W MINI-BAG PLUS 50 ML IV SCH (20:37)
[2019-05-15] MEDS ORDERED: ATORVASTATIN 20 MG TAB PO SCH (21:00)
[2019-05-15] MEDS ORDERED: lisinopriL 10 MG TAB PO SCH (21:00)
[2019-05-15] MEDS ORDERED: VITAMIN D 1,000 INTERNATIONAL UNITS TABLET PO SCH (21:00)
[2019-05-16] VITALS (12 sets, daily range): BP systolic 116–187; BP diastolic 59–82
--- NOTE | 2019-05-16 00:35 | CR ---
DATE OF CONSULTATION: 05/15/2019 Extremely brief initial consult note. 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 REFERRING PHYSICIAN: Woody Quispe MD HISTORY OF PRESENT ILLNESS: Ms. Garvey is a 54-year-old woman with smoking history, presented to the emergency room following 3 days during which she has progressive inability to lie flat at night because of breathing difficulties, which she attributed to nasal congestion. She had apparently had no change in her baseline exercise tolerance but developed increasing chest pain when she coughed. On admission to the hospital today, plain chest x-ray showed moderate cardiomegaly and a widened mediastinum. CT angio showed bulky mediastinal lymphadenopathy and a large pericardial effusion with slight straightening of the interventricular septum suggesting right heart strain. In addition, diffuse goiter present. Mild SVC compression. The patient underwent a procedure under Dr. Quispe to decompress the pericardium. The patient tolerated procedure well but did have some bleeding. Her hemoglobin and hematocrit normal on admission. Preliminary pathology from pericardial lymph node and fluid cytology positive for small cell lung carcinoma. The patient was seen in the intensive care unit (ICU) shortly after she returned from the CT suite. Chest CT showed re-demonstration of enlarged thyroid, trace right apical pneumothorax likely secondary to thoracostomy tube, resolution of previously seen pericardial effusion, no cardiomegaly, small degree of anterior mediastinal gas, likely post procedural, and re-demonstration of bulky conglomerate mediastinal adenopathy versus mediastinal mass. Sugey was groggy, able to answer questions with one word but clearly unable to fully attend and be interviewed. She was informed of the cancer diagnosis by Dr. Quispe, and repeated back that she understood she had cancer. Dr. Quispe and I briefly spoke to her about the need for treatment fairly urgently with chemotherapy and radiation if possible. She did not engage in this conversation. Dr. Quispe contacted the patient's . IMPRESSION: Small cell lung carcinoma with large mediastinal conglomerate adenopathy versus mass, malignant pericardial effusion status post pericardiocentesis. Whether limited or advanced or extensive stage unclear. SVC impingement by mediastinal mass on imaging; no clinical evidence of neck swelling, facial swelling on inspection. PLAN: 1. Ms. Garvey needs immediate treatment for her small cell to prevent evolution to superior vena cava syndrome. As a temporizing measure, dexamethasone 10 mg three times a day should be started. This was discussed with Dr. Cardona. He is putting in the order. 2. Between Dr. Cardona, Dr. Quispe, and myself, we discussed optimal treatment for Ms. Garvey, which would be combined chemo radiation. Earlier in the evening, I discussed this with our nurse manager intermediate and with Dr. Jarvis Kilgore of radiation oncology. There will be difficulties delivering treatment over the weekend based on facility availability of radiation personnel, the same applies for chemotherapy. Because of this, we have all agreed as a first measure we will seek transfer to outside hospital where treatment could be immediately begun and continued. However, provisionally I have written orders and discussed with pharmacy carboplatin/etoposide with oral etoposide possibly being substituted on days two and three if it is available to us in appropriate time. I will return to interviewing and examine Sugey when she is more lucid. 3. Recommend CT abdomen/pelvis, head complete staging. Thank you for this consult. Will follow. 05/16/19 addendum: pt is to be transferred to [facility] for urgently needed treatment that cannot be administered here MTDD
[2019-05-16] MEDS: LEVALBUTEROL 1.25 MG/0.5 ML CONCENTRATE NEB NEB SCH ×2 (01:19→07:45)
[2019-05-16] MEDS: dexameTHASONE 20 MG/5 ML VIAL (J1100) IV SCH ×2 (01:25→10:25)
[2019-05-16] MEDS: KCL 20MEQ IN D5/NS 1000ML 1,000 ML IV SCH (04:37)
[2019-05-16] MEDS: KETOROLAC 30 MG/ML VIAL (J1885) IV SCH ×3 (05:33→12:21)
[2019-05-16] MEDS: ceFAZolin SOD 1 GM in D5W MINI-BAG PLUS 50 ML IV SCH ×2 (05:33→12:21)
[2019-05-16] MEDS: HumaLOG INSULIN (NovoLOG) PER UNIT SC SCH ×4 (05:34→12:21)
[2019-05-16 05:43] LABS: BASO % 0.1 % (0.0-1.0); HEMATOCRIT 38.5 % (36.0-47.0); HEMOGLOBIN 12.9 g/dl (12.0-15.5); LYMPH # 1.2 10^3/uL (1.5-5.0); LYMPH % 7.4 % (24.0-44.0); MEAN CORPUSCULAR HEMOGLOBIN 31.2 pg (27.0-33.0); MEAN CORPUSCULAR HGB CONC 33.5 g/dl (32.0-36.5); MEAN CORPUSCULAR VOLUME 93.2 fl (80.0-96.0); MONO # 0.6 10^3/uL (0.0-0.8); MONO % 3.5 % (0.0-5.0); NEUTROPHILS # 13.8 10^3/uL (1.5-8.5); NEUTROPHILS % 88.4 % (36.0-66.0); PLATELET COUNT, AUTOMATED 283 10^3/uL (150-450); RED BLOOD COUNT 4.13 10^6/uL (4.00-5.40); WHITE BLOOD COUNT 15.6 10^3/uL (4.0-10.0)
[2019-05-16 05:58] LABS: ABG BASE EXCESS -3.2 (-2.0-2.0); ABG HCO3 20.1 MEQ/L (22.0-26.0); ABG O2 SATURATION 95.4 % (95.0-99.0); ABG PARTIAL PRESSURE CO2 31.2 mmHg (35.0-45.0); ABG PARTIAL PRESSURE O2 75.6 mmHg (75.0-100.0); ABG STANDARD HCO3 21.8 MEQ/L (22.0-26.0); ABG TOTAL CO2 21.1 MEQ/L (22.0-29.0); ABG pH (ARTERIAL) 7.427 UNITS (7.350-7.450)
[2019-05-16] MEDS ORDERED: MUPIROCIN 2% OINT 22 GM TUBE TOP ONE (06:00)
[2019-05-16] MEDS ORDERED: LEVOTHYROXINE 75MCG TABLET (0.075MG) PO SCH (06:00)
[2019-05-16 06:01] LABS: BLOOD UREA NITROGEN 10 MG/DL (7-18); CALCIUM LEVEL 8.5 MG/DL (8.5-10.1); CARBON DIOXIDE LEVEL 23 MEQ/L (21-32); CHLORIDE LEVEL 103 MEQ/L (98-107); CHOLESTEROL LEVEL 96 MG/DL (<200); CHOLESTEROL RISK RATIO 2.181 (<5); CREATININE FOR GFR 0.77 MG/DL (0.55-1.30); FREE THYROXINE INDEX 2.9 % (1.3-4.8); GLOMERULAR FILTRATION RATE > 60.0 (>51); GLUCOSE, FASTING 240 MG/DL (70-100); HDL CHOLESTEROL 44 MG/DL (>40); LDL CHOLESTEROL 20 MG/DL (<100); NON-HDL-C 52 MG/DL; POTASSIUM SERUM 4.3 MEQ/L (3.5-5.1); SODIUM LEVEL 133 MEQ/L (136-145); T UPTAKE 32 % (30-39); THYROID STIMULATING HORMONE 0.662 uIU/ML (0.358-3.740); THYROXINE (T4) 9.1 UG/DL (4.5-12.0); TRIGLYCERIDES LEVEL 159 MG/DL (<150)
--- NOTE | 2019-05-16 07:42 | RO ---
DATE OF PROCEDURE: 05/15/2019 PREPROCEDURE DIAGNOSIS: Pericardial effusion, tamponade. POSTPROCEDURE DIAGNOSIS: Pericardial effusion, tamponade. PROCEDURE: 1. Pericardial window. 2. Pericardiostomy. 3. Distal sternectomy and xiphoidectomy. SURGEON: Dr. Woody Quispe M1 ARMOR CREWMAN: ANESTHESIA: FINDINGS: The pericardium was drained of 500 mL of serosanguineous fluid. It was definitely red tinged. A piece of pericardium was taken to create the window and sent for pathology. There was also a mediastinal node that I came across which I excised and sent for pathology. I did not see pericardial studding. There was no exudative process over the heart. DESCRIPTION OF PROCEDURE: Under satisfactory general anesthesia, the patient prepped and draped in the usual sterile fashion. A midline incision spanning the xiphoid process and the epigastrium was made. Incision was carried down through subcutaneous tissue and the linea alba was divided in the midline. The xiphoid process was freed of connective tissue and removed. The distal sternum was also removed in order to work with rongeurs in order to fit the Rultract blade beneath it. This was filed off to smooth it out. The sternum was elevated and pericardial fat was removed from the underlying pericardium. There was a 1 cm node which I noted and which I excised en toto and sent for pathology. The pericardium was incised with the above results of 500 mL of serosanguineous fluid being removed. The pleura was entered and a pericardial window was then created between the pericardium and the pleura by removing a piece of pericardium. After achieving adequate hemostasis, two chest tubes were placed, one in the pleura and one pericardial in the pericardial well. They were secured to the abdominal wall. The Rultract retractor was removed and the linea alba was closed with running #0 Vicryl suture, the subcutaneous tissue closed with running #3-0 Vicryl suture and the skin closed with running #3-0 Monopril subcuticular suture. Prior to closure of each layer, the incision was infiltrated with Exparel and Marcaine solution. The patient tolerated the procedure well and then was prepared for the mediastinoscopy. [facility]
--- NOTE | 2019-05-16 08:27 | REP ---
CHEST X-RAY: Two views. HISTORY: Pericardial effusion. COMPARISON STUDY: 4:38 p.m. film 05/15/2019. Also reviewed is the 7:49 a.m. film from 05/15/2019. FINDINGS: A right pleural drainage catheter and a pericardial drainage catheter are noted in place. Heart size is improved from yesterday morning's radiograph. There is no longer evidence of pneumopericardium. Mediastinal widening persists. There are two surgical clips above the suprasternal notch. There is bibasilar plate-like atelectasis. No infiltrate is seen. IMPRESSION: Mild bibasilar plate-like atelectasis. Pericardial and right pleural drainage catheters in place. Electronically Signed by Maynor Bridges MD 05/16/2019 08:41 A
--- NOTE | 2019-05-16 08:27 | RO ---
DATE OF PROCEDURE: 05/15/2019 PREPROCEDURE DIAGNOSIS: Mediastinal mass. POSTPROCEDURE DIAGNOSIS: Small cell carcinoma. PROCEDURE: Mediastinoscopy. SURGEON: Dr. Woody Quispe. CERTIFIED PHARMACY TECH: None. ANESTHESIA: General. FINDINGS: The mediastinal mass upon being biopsied bleed quite profusely. This was noted to be secondary to upper extremity hypertension secondary to her superior vena cava (SVC) compression. It was eventually controlled with compression and Tisseel glue along with prothrombin and Gelfoam. Frozen section came back small cell carcinoma. I personally went to the lab to look at the slides. DESCRIPTION OF PROCEDURE: Under satisfactory general anesthesia, the patient was prepped and draped in the usual sterile fashion. A suprasternal notch incision was made and carried down through the subcutaneous tissue. There were two very large veins which were identified just off the midline and ligated with #3-0 Vicryl suture. These were much larger than usual. The thyroid was also enlarged and had to be swept superiorly in order to enter the pretracheal space. Entering the pretracheal space was also made difficult with the amount of adipose tissue. Nonetheless, the pretracheal space was finally entered and the tumor was found to be densely adherent to the trachea once passing the innominate artery. The mass was aspirated and tested to make sure that it was not a vascular structure and then it was biopsied with two large chunks. These bled quite profusely and needed direct compression to stop them followed by electrocautery and Tisseel glue along with thrombin Gelfoam. After having achieved adequate hemostasis, the strap muscles were closed with running #3-0 Vicryl suture and the subcutaneous tissues were closed with #3-0 Vicryl sutures and the skin with #4-0 Monocryl subcuticular suture. The patient tolerated the procedure well left the operating room in satisfactory condition.
[2019-05-16] MEDS: METOPROLOL TART 50 MG TAB PO SCH (08:41)
[2019-05-16] MEDS: PANTOPRAZOLE 40MG TAB (PROTONIX) PO SCH (08:41)
[2019-05-16] MEDS: HEPARIN SOD (PORCINE) 5000 UNITS/ML VIAL (J1644 PER 1000UNITS) SC SCH (08:41)
[2019-05-16] MEDS: MOM 30ML SUSPENSION UDC PO SCH (08:42)
[2019-05-16] MEDS: DOCUSATE SODIUM 100 MG CAP PO SCH (08:42)
[2019-05-16] MEDS ORDERED: NICOTINE 14 MG/24 HR TRANSDERMAL TD SCH (09:00)
[2019-05-16] MEDS ORDERED: CALCIUM CARBONATE 500 MG CHEW U/D PO PRN (09:30)
--- NOTE | 2019-05-16 10:34 | IPN ---
DATE: 05/15/2019 This is now the first postoperative day for Ms. Garvey, status post a pericardial window tube pericardiostomy along with a mediastinoscopy for a mediastinal mass, which is biopsy-proven now as small cell carcinoma. Because we do not have the facilities, at this time, to treat her with inpatient chemotherapy, Dr. Cardona has arranged for her to be transferred to [facility]. I will remove her tubes today as she has drained a trivial amount over the last 12 hours. She had a considerable amount of pulmonary embolus (PE) yesterday postoperatively, which has been now relatively well controlled. After removing his chest tubes, it is even better. I did obtain a CT scan of her just after surgery as she had so much pain fearing that she may have had a mediastinal hematoma, as there was bleeding from the mediastinoscopy secondary to her venous obstruction, secondary to her compressed superior vena cava. There was no hematoma. Her vital signs show a maximum temperature (T-max) of 99.0 with a heart rate that ranges between 119 and 107 in a sinus tachycardia, respiratory rate of 18-24 without the use of accessory muscles, who is 95% saturated on 2 liters nasal cannula and now on room air. Her blood pressure is ranging between 140/73 to 187/79. Her intake and output over the past 24 hours is recorded as 1315 in and 1810 out for a negativity of 500 mL. Yesterday show put out a total of 177 mL out the pericardial tube and 163 mL out the pleural tube. In the last 12 hours, she has put out 15 mL and 34 mL respectively with standing today. On physical examination, her lungs show equal breath sounds on either side. There is some coarse rhonchi muscles which clear with coughing. Percussion note is full to the diaphragm. Cardiac exam is without murmurs, clicks, gallops or rubs. I cannot feel her point of maximum impulse (PMI). S1 and S2 are normal. Abdomen is soft and nontender. Bowel sounds are positive. There is no hepatomegaly. No costovertebral angle (CVA) tenderness. She has eating breakfast today without difficulty. Extremities still show 1+ pretibial edema with no calf tenderness. No differential swelling of the upper extremities. Skin is warm, dry and perfused without cyanosis or mottling including that of the nail beds and knees. Neck is supple. There is no jugular venous distention. No subcutaneous emphysema. Trachea is midline. Mouth shows her mucous membranes to be pink and moist. Lips and commissures are without lesions. There is no thrush. Eyes show her pupils to be equal and reactive. Extraocular movements intact. Sclerae nonicteric. Neurologic shows II-XII intact along with gross motor and gross sensation intact. Patient transferred from the chair to the bed without difficulty. Psychiatric showed her to be awake, alert and oriented times three with appropriate and affect and conversational. We have all told her, her diagnosis and she understands and she also understands that we are transferring her to [place]. Her white count today is 15.6 with hemoglobin and hematocrit 12.9 and 38.5 respectively with a platelet count of 283. Differential shows 88% neutrophils, 7% lymphocytes, 3% monocytes. There are no immature forms or toxic granulations. Her electrolytes show a marginally low sodium of 133 with the remainder of her electrolytes normal. BUN and creatinine are 10 and 0.77, with a glucose of 240 and a calcium of 8.5. She remains on Toradol. Her TSH is 0.662 within normal limits. Her chest x-ray today was done, for some reason anteroposterior (AP) and shows her lungs fully expanded to the chest wall. Chest tubes are in good place on the lateral film. I seen no infiltrates posteriorly on the lateral film and none on the AP film. Her mediastinal mass is unchanged but her heart size is back to normal and no longer globular as it was when she was admitted. Her pericardial fluid came back with a pH of 7.7 with a glucose of 158 and LDH of 847. There were 3400 white cells, 89% of which of mononuclear lymphocytes. This is probably going to represent a malignant type pericardial effusion. The cytology on the fluid is still pending. Bacteriology: Grafting shows no organisms. IMPRESSION: 1. Small cell carcinoma mediastinum without an obvious lung mass. 2. Pericardial effusion. 3. Impending SVC syndrome. 4. Hypertension. 5. Diabetes. 6. Hypothyroidism. 7. Hypercholesterolemia. PLAN/DISCUSSION: I have already removed the chest tubes today. She will be transferred to [place] later this morning. She has suture tags at the end of each incision in the neck and in the epigastrium, which can be removed with the tag which can be removed in 5 days but just cutting them off. She evidently has a followup appointment with the cancer center here in 3 weeks. I will not need to see her in surgical followup unless necessary.
--- NOTE | 2019-05-16 17:59 | DSES ---
DATE OF ADMISSION: 05/15/2019 DATE OF DISCHARGE: 05/16/2019 DISCHARGE DIAGNOSES: 1. Superior vena cava syndrome, national cancer institute (NCI) grade 2, moderate, secondary to small-cell lung carcinoma (CA). 2. Hypoxic respiratory failure, secondary to number one. 3. Pericardial effusion/tamponade, secondary to number one, status post pericardial window on 05/15/2019. 4. Pleural effusion, status post chest tube placement on 05/15/2019. 5. A 35-pack year smoking history. 6. Obesity. 7. Diabetes mellitus, type 2, non-insulin dependent without complication. 8. Hypertension, essential. 9. Hyperlipidemia. 10. Hypothyroidism. 11. Thyroid goiter without obstruction. 12. Vitamin D deficiency. HOSPITAL COURSE: The patient presented to [facility] ([facility]) Emergency Room (ER) with a three-day history of progressive orthopnea, dyspnea on exertion, and nasal and facial congestion which she felt was related to an upper respiratory infection. She was found by chest x-ray and then subsequent CT of the chest to have a widened mediastinum with cardiomegaly secondary to bulky mediastinal lymphadenopathy and a large pericardial effusion causing straightening of the intraventricular septum with mild superior vena cava (SVC) compression. Given this, she underwent an emergent mediastinoscopy with biopsies and pericardial window and chest tube placement. The pericardium was drained of 500 mL of serosanguineous fluid. Over the last 12 hours, it drained 15 mL. The chest tube drained 34 mL over the last 12 hours. Therefore given minimal output, Dr. Quispe elected to remove both tubes and thereby the patient was downgraded a medical/surgical bed. The case was discussed with the chief of medical oncology, Dr. Katelin James, who felt that the required definitive treatment would be immediate IV chemotherapy consisting of etoposide which because of the lack of staffing would not be able to be adequately delivered to the patient. There, it was elected to transfer the patient to [facility]. Accepting physician, Dr. Rios, accepted the patient in to a medical/surgical bed. She was transferred on current medications of: - nicotine patch 14 mg daily - insulin Lispro sliding scale before meals and at bedtime - levothyroxine 75 mcg by mouth daily - atorvastatin 40 mg by mouth daily - vitamin D 2000 by mouth daily - lisinopril 10 by mouth daily - metoprolol tartrate 50 by mouth twice a day - cefazolin 1 gram IV every eight hours - dexamethasone 10 mg IV every eight hours - pantoprazole 40 mg by mouth daily - docusate 100 by mouth daily - heparin 5000 subcutaneous twice a day - D5 half-normal with 20 KCl at 75 an hour
--- NOTE | 2019-05-16 18:36 | ECGEPIP ---
[facility] - ED Test Date: 2019-05-15 Pat Name: ALEXA TOMLIN Department: Room: - Gender: Female Automatic Blocker: aguila : 1965 Requested By: Laura Rodriges Order Number: [id number] Reading MD: Laura Rodriges Measurements Intervals [place] Rate: 97 P: 50 [place]: 175 QRS: 44 QRSD: 86 T: 52 QT: 331 QTc: 422 Interpretive Statements SINUS RHYTHM LOW QRS VOLTAGE IN PRECORDIAL LEADS PRWP INCREASED RATE 08/23/14 Electronically Signed on 05-16-2019 18:35:02 EDT by Laura Rodriges
[2019-05-16] MEDS ORDERED: HumaLOG INSULIN (NovoLOG) PER UNIT SC SCH (21:00)
--- NOTE | 2019-05-17 09:37 | ECHO ---
DATE OF PROCEDURE: 05/15/2019 PATIENT LOCATION: Room 3203 REFERRING PROVIDER: Dr. Yesenia Anglin REASON FOR THE STUDY: Pericardial effusion. 2D MEASUREMENTS: IVS: 1.2 cm LV: 4.2 cm LVPW: 1.2 cm LA: 3.6 cm Aorta: 3.5 cm IVC: 2.1 cm DOPPLER MEASUREMENTS: Peak velocity across the aortic valve: 1.5 meters per second Peak velocity across the LVOT: 1.0 meters per second Mitral E: 0.63, Mitral A: 0.86 with a ratio of 0.7 2D COMMENTS: 1. Normal left ventricular size, wall thickness, and normal global left ventricular systolic function. The estimated left ventricular systolic ejection fraction is 60-65%. 2. Normal left atrium. Normal right atrium and right ventricle. 3. The atrial septum appeared to be normal without evidence of defect or shunt. 4. Normal aortic root. 5. A large pleural effusion was noted with increased echogenicity that may be related to a condition of fibrinous material. There was some echocardiographic evidence of early cardiac tamponade with some collapse of the right atrium and variation in the mitral inflow pattern. The IVC also was dilated. 6. The aortic valve, mitral valve, and tricuspid valve appeared to be normal. The pulmonic valve was not well visualized. 7. The inferior vena cava was mildly enlarged, central venous pressure is probably elevated. DOPPLER: No significant valvular abnormalities detected. IMPRESSION: 1. Normal global left ventricular systolic function. There are some features of grade 1 left ventricular diastolic dysfunction manifested by abnormal relaxation. 2. Large pericardial effusion that may be related to malignancy with some early echocardiographic evidence of cardiac tamponade. It was reported that the patient was taken to the OR for pericardial window and biopsy. She was found to have on CT angio a large pericardial effusion with a mediastinal mass. MTDD
[2019-05-18 00:16] LABS: COXSACKIE TYPE B1 Negative (Neg:<1:8); COXSACKIE TYPE B2 Negative (Neg:<1:8); COXSACKIE TYPE B3 Negative (Neg:<1:8); COXSACKIE TYPE B4 Negative (Neg:<1:8); COXSACKIE TYPE B5 Negative (Neg:<1:8); COXSACKIE TYPE B6 Negative (Neg:<1:8)
[2019-05-20 00:07] LABS: ANTINUCLEAR ANTIBODIES DIRECT Negative (Negative); COXSACKIE TYPE A-16 IgM Negative titer (Neg:<1:10); COXSACKIE TYPE A-24 IgM Negative titer (Neg:<1:10); COXSACKIE TYPE A-7 IgM Negative titer (Neg:<1:10); COXSACKIE TYPE A-9 IgM Negative titer (Neg:<1:10)
== END 2019-05-16 13:28 | disposition short-term general hospital (02) | DRG 121 ==
LOC: M ED 07:35 → M ED INP 10:21 → ENRESERV 10:45 → M ICU 11:24
PROVIDERS: ADMIT Thoracic Surgery (Cardiothoracic Vascular Surgery); ATTEND Family Medicine
PROC: 0B9N00Z Drainage of Right Pleura with Drainage Device, Open Approach (ICD-10-PCS; 2019-05-15)
PROC: 0BB Respiratory System, Excision (ICD-10-PCS; 2019-05-15)
PROC: 0WBC0ZX Excision of Mediastinum, Open Approach, Diagnostic (ICD-10-PCS; 2019-05-15)
PROC: 0PB00ZZ Excision of Sternum, Open Approach (ICD-10-PCS; 2019-05-15)
PROC: 02BN0ZZ Excision of Pericardium, Open Approach (ICD-10-PCS; 2019-05-15)
PROC: 0W3C0ZZ Control Bleeding in Mediastinum, Open Approach (ICD-10-PCS; 2019-05-15)
PROC: 0W9D00Z Drainage of Pericardial Cavity with Drainage Device, Open Approach (ICD-10-PCS; principal; 2019-05-15 12:11)
PROC: 07B70ZX Excision of Thorax Lymphatic, Open Approach, Diagnostic (ICD-10-PCS; 2019-05-15 12:11)
DX: C34.90 Malignant neoplasm of unspecified part of unspecified bronchus or lung (principal); I31.4 Cardiac tamponade; J96.91 Respiratory failure, unspecified with hypoxia; I31.3 Pericardial effusion (noninflammatory); I87.1 Compression of vein; I10 Essential (primary) hypertension; F17.210 Nicotine dependence, cigarettes, uncomplicated; E11.9 Type 2 diabetes mellitus without complications; E78.00 Pure hypercholesterolemia, unspecified; E03.9 Hypothyroidism, unspecified; M16.0 Bilateral primary osteoarthritis of hip; M51.36 Other intervertebral disc degeneration, lumbar region; Z86.718 Personal history of other venous thrombosis and embolism; Z79.84 Long term (current) use of oral hypoglycemic drugs; Z79.899 Other long term (current) drug therapy; E66.9 Obesity, unspecified; Z68.34 Body mass index [BMI] 34.0-34.9, adult; R59.0 Localized enlarged lymph nodes; E04.0 Nontoxic diffuse goiter; E55.9 Vitamin D deficiency, unspecified; D48.7 Neoplasm of uncertain behavior of other specified sites

== ENCOUNTER 2019-11-17 07:51 | Emergency (ER) | payer OTHER ==
[~2019-11-17] VITALS: Ht 160 cm; Wt 83.2 kg
[~2019-11-17 07:51] MED LIST changes: +ACET-683 PO; +ATOR40TA75 PO; +FULP6INJ SC; +GLUC500C37 PO; +LEVO75TA4 PO; +METF10004 PO; +ONDA8TAB10 PO; +PROC10TA4 PO; +THERTAB52 PO; +VITA200028 PO; -ceFAZolin SOD 2 GM in IV 1 EA IV ONE
[2019-11-17] MEDS ORDERED: ONDANSETRON 4MG/2ML VIAL IV ONE (08:30)
[2019-11-17] MEDS ORDERED: ISOVUE-370 76% 100ML VIAL As Ordered ONE (08:30)
[2019-11-17] MEDS ORDERED: ASPIRIN 81 MG CHEW TABLET PO ONE (08:30)
[2019-11-17 08:33] LABS: BASO % 0.4 % (0.0-1.0); EOS # 0.1 10^3/uL (0.0-0.5); EOS % 1.3 % (0.0-3.0); HEMATOCRIT 40.7 % (36.0-47.0); HEMOGLOBIN 14.4 g/dl (12.0-15.5); LYMPH # 2.2 10^3/uL (1.5-5.0); LYMPH % 31.5 % (24.0-44.0); MEAN CORPUSCULAR HEMOGLOBIN 34.9 pg (27.0-33.0); MEAN CORPUSCULAR HGB CONC 35.4 g/dl (32.0-36.5); MEAN CORPUSCULAR VOLUME 98.5 fl (80.0-96.0); MONO # 0.5 10^3/uL (0.0-0.8); MONO % 7.2 % (0.0-5.0); NEUTROPHILS # 4.1 10^3/uL (1.5-8.5); NEUTROPHILS % 59.2 % (36.0-66.0); PLATELET COUNT, AUTOMATED 208 10^3/uL (150-450); RED BLOOD COUNT 4.13 10^6/uL (4.00-5.40)
[2019-11-17] MEDS ORDERED: MEMA10TA19 PO (08:33)
--- NOTE | 2019-11-17 08:34 | REPVR ---
PROCEDURE INFORMATION: Exam: XR Chest, 1 View Exam date and time: 11/17/2019 8:12 AM Age: 54 years old Clinical indication: Shortness of breath; Additional info: Chest pain TECHNIQUE: Imaging protocol: XR of the chest Views: 1 view. COMPARISON: NE - Chest, 2 view PA, Lat 05/16/2019 7:31:27 AM FINDINGS: Lungs: Unremarkable. No consolidation. Pleural space: Unremarkable. No pleural effusion. No pneumothorax. Heart/Mediastinum: Previous chest tube and mediastinal drain have been removed. Bones/joints: Unremarkable. IMPRESSION: No evidence for acute pulmonary disease. Electronically signed by: Corey Frederick On 11/17/2019 08:33:48 AM
[2019-11-17 08:47] LABS: INR 0.85; PROTHROMBIN TIME 11.8 SECONDS (12.5-14.3)
[2019-11-17 08:48] LABS: PARTIAL THROMBOPLASTIN TIME 27.3 SECONDS (24.2-38.5)
[2019-11-17 09:01] LABS: ALBUMIN 3.8 GM/DL (3.2-5.2); BILIRUBIN,DIRECT 0.1 MG/DL (0.0-0.2); BILIRUBIN,TOTAL 0.5 MG/DL (0.2-1.0); TOTAL PROTEIN 7.5 GM/DL (6.4-8.2)
--- NOTE | 2019-11-17 09:05 | REPVR ---
PROCEDURE INFORMATION: Exam: CT Angiography Chest With Contrast Exam date and time: 11/17/2019 8:42 AM Age: 54 years old Clinical indication: Pain; Other: HX pericardial effusion, RO pe TECHNIQUE: Imaging protocol: Computed tomographic angiography of the chest with intravenous contrast. 3D rendering (Not supervised by radiologist): MIP and/or 3D reconstructed images were created by the technologist. Radiation optimization: All CT scans at this facility use at least one of these dose optimization techniques: automated exposure control; mA and/or kV adjustment per patient size (includes targeted exams where dose is matched to clinical indication); or iterative reconstruction. Contrast material: ISOVUE 370; Contrast volume: 75 ml; Contrast route: INTRAVENOUS (IV); COMPARISON: CT ANGIO CHEST 05/15/2019 9:38 AM FINDINGS: Pulmonary arteries: No pulmonary embolus is identified. Aorta: The thoracic aorta is nonaneurysmal. Atherosclerotic vascular calcifications are again present. Lungs: There is a stable 4 mm nodule in the right middle lobe (image [id number]). Minor dependent atelectasis is present bilaterally. The lungs are otherwise clear. The central airways appear patent. Pleural space: Unremarkable. No pneumothorax. No pleural effusion. Heart: Coronary artery calcifications are again present. Previous pericardial effusion has essentially resolved. Lymph nodes: There is again conglomerate soft tissue density in the mediastinum, likely lymphadenopathy, with dominant areas of abnormality measuring approximately 4.8 x 3.9 cm in the precarinal region, 2.7 x 2.2 cm anterior to the SVC and 2.1 x 3.5 cm in the subcarinal region. Findings are overall fairly stable. Spleen: There is similar mild splenomegaly. Bones/joints: Degenerative changes again involve the spine and shoulders. Soft tissues: Unremarkable. IMPRESSION: 1. No pulmonary embolus identified. 2. Essential interval resolution of pericardial effusion since 05/15/19. 3. Persistent conglomerate soft tissue density in the mediastinum, likely lymphadenopathy, overall fairly stable. 4. Stable 4 mm right middle lobe nodule. For patients at low risk (minimal or absent history of smoking and of other known risk factors), no routine follow-up is indicated. For patients at high risk (history of smoking or of other known risk factors), consider optional CT at 12 months. (Baltazar et al., Fleischner Society, 2017) 5. Similar mild splenomegaly. Electronically signed by: Corey Frederick On 11/17/2019 09:04:38 AM
[2019-11-17] MEDS: MORPHINE 2 MG/ML 1ML VIAL (J2270) IV PRN ×2 (09:09→10:50)
[2019-11-17 12:00] VITALS: BP 124/80
--- NOTE | 2019-11-17 20:00 | ED PDOC ---
Post-Departure Follow-Up ruben medrano faxed formal report of ct chest for fu Faith Dixon MD Nov 17, 2019 20:00
--- NOTE | 2019-11-17 20:27 | ECGEPIP ---
[facility] - ED Test Date: 2019-11-17 Pat Name: ALEXA TOMLIN Department: Room: - Gender: Female Corporate Buyer: enedelia rangel : 1965 Requested By: Faith Marcelo Order Number: [id number] Reading MD: Laura Rodriges Measurements Intervals [place] Rate: 91 P: 46 ND: 183 QRS: 39 QRSD: 83 T: 43 QT: 327 QTc: 403 Interpretive Statements SINUS RHYTHM Electronically Signed on 11-17-2019 20:27:14 EDT by Laura Rodriges
--- NOTE | 2019-11-17 20:29 | ECGEPIP ---
[facility] - ED Test Date: 2019-11-17 Pat Name: ALEXA TOMLIN Department: Room: - Gender: Female Perinatal Nurse: enedelia rangel : 1965 Requested By: Faith Marcelo Order Number: [id number] Reading MD: Laura Rodriges Measurements Intervals [place] Rate: 102 P: 44 [place]: 168 QRS: 29 QRSD: 89 T: 39 QT: 327 QTc: 426 Interpretive Statements SINUS TACHYCARDIA ABNORMAL RHYTHM ECG INCREASED RATE 11/17/19 08:10 Electronically Signed on 11-17-2019 20:29:27 EDT by Laura Rodriges
== END 2019-11-17 12:15 | disposition home or self-care (01) ==
LOC: M ED 07:51
DX: R07.9 Chest pain, unspecified (principal); R00.0 Tachycardia, unspecified; R94.31 Abnormal electrocardiogram [ECG] [EKG]; R91.1 Solitary pulmonary nodule; E11.9 Type 2 diabetes mellitus without complications; I10 Essential (primary) hypertension; E78.5 Hyperlipidemia, unspecified; Z86.718 Personal history of other venous thrombosis and embolism; Z86.711 Personal history of pulmonary embolism; C34.90 Malignant neoplasm of unspecified part of unspecified bronchus or lung; Z87.891 Personal history of nicotine dependence; Z79.84 Long term (current) use of oral hypoglycemic drugs; Z79.899 Other long term (current) drug therapy
CPT/HCPCS: 71045; 71275; 80047; 80076; 85025; 85610; 85730; 93005; 93041; 94760; 96374; 96375; 99285; J2270; J2405; Q9967

== ENCOUNTER → 2019-12-29 | Outpatient (REF) | payer OTHER ==
[~2019-12-29] MED LIST changes: +MEMA10TA19 PO
[2019-12-29 16:41] LABS: ALBUMIN 3.8 GM/DL (3.2-5.2); BILIRUBIN,TOTAL 0.5 MG/DL (0.2-1.0); CHOLESTEROL RISK RATIO 3.181 (<5); CREATININE FOR GFR 1.52 MG/DL (0.55-1.30); FREE T4 1.34 NG/DL (0.76-1.46); GLOMERULAR FILTRATION RATE 38.2 (>51); POTASSIUM SERUM 5.1 MEQ/L (3.5-5.1); TOTAL PROTEIN 7.1 GM/DL (6.4-8.2)
[2019-12-29 18:46] LABS: HEMOGLOBIN A1c 7.2 %
== END ==
LOC: M SFHCADAM 09:59
PROVIDERS: ATTEND Physician Assistant
DX: E11.21 Type 2 diabetes mellitus with diabetic nephropathy (principal); E03.9 Hypothyroidism, unspecified; E78.5 Hyperlipidemia, unspecified; I10 Essential (primary) hypertension

== ENCOUNTER 2020-01-07 03:01 | Emergency (ER) | payer OTHER ==
[~2020-01-07] VITALS: Ht 160 cm; Wt 78.5 kg
[2020-01-07] MEDS ORDERED: ALLO100T PO (03:09)
[2020-01-07 04:02] LABS: BASO % 0.4 % (0.0-1.0); EOS # 0.1 10^3/uL (0.0-0.5); EOS % 1.3 % (0.0-3.0); HEMATOCRIT 35.4 % (36.0-47.0); HEMOGLOBIN 11.9 g/dl (12.0-15.5); LYMPH # 2.3 10^3/uL (1.5-5.0); LYMPH % 24.4 % (24.0-44.0); MEAN CORPUSCULAR HEMOGLOBIN 33.1 pg (27.0-33.0); MEAN CORPUSCULAR HGB CONC 33.6 g/dl (32.0-36.5); MEAN CORPUSCULAR VOLUME 98.6 fl (80.0-96.0); MONO # 0.7 10^3/uL (0.0-0.8); NEUTROPHILS # 6.1 10^3/uL (1.5-8.5); NEUTROPHILS % 66.5 % (36.0-66.0); PLATELET COUNT, AUTOMATED 248 10^3/uL (150-450); RED BLOOD COUNT 3.59 10^6/uL (4.00-5.40); WHITE BLOOD COUNT 9.2 10^3/uL (4.0-10.0)
[2020-01-07 04:53] LABS: CALCIUM LEVEL 9.7 MG/DL (8.5-10.1); CREATININE FOR GFR 1.48 MG/DL (0.55-1.30); GLOMERULAR FILTRATION RATE 39.4 (>51); POTASSIUM SERUM 4.4 MEQ/L (3.5-5.1)
[2020-01-07 04:55] LABS: ALBUMIN 3.8 GM/DL (3.2-5.2); BILIRUBIN,DIRECT 0.1 MG/DL (0.0-0.2)
[2020-01-07 05:10] LABS: BILIRUBIN,TOTAL 0.4 MG/DL (0.2-1.0); TOTAL PROTEIN 7.1 GM/DL (6.4-8.2)
[2020-01-07] MEDS ORDERED: NS 1,000 ML IV ONE (06:30)
[2020-01-07] MEDS ORDERED: MORPHINE 4 MG/ML 1ML VIAL/SYRINGE (J2270) IV ONE (06:30)
--- NOTE | 2020-01-07 08:14 | REPVR ---
PROCEDURE INFORMATION: Exam: CT Abdomen And Pelvis Without Contrast Exam date and time: 01/07/2020 6:30 AM Age: 54 years old Clinical indication: Abdominal pain; Flank; Right; Additional info: Right flank pain TECHNIQUE: Imaging protocol: Computed tomography of the abdomen and pelvis without contrast. Radiation optimization: All CT scans at this facility use at least one of these dose optimization techniques: automated exposure control; mA and/or kV adjustment per patient size (includes targeted exams where dose is matched to clinical indication); or iterative reconstruction. COMPARISON: CR HIPS BILAT W-AP PELVIS 08/05/2015 2:54 PM FINDINGS: Heart: Small pericardial effusion. Liver: Normal. No mass. Gallbladder and bile ducts: Possible sludge formation within the gallbladder. Pancreas: Normal. No ductal dilation. Spleen: Normal. No splenomegaly. Adrenal glands: Nodule left adrenal gland measures 2.5 cm. Kidneys and ureters: Stranding surrounding both kidneys. Calcification at the medial left renal sinus could be renal vascular versus nonobstructive within a collecting structure measures 0.33 cm. No ureteral calculus or obstruction. Stomach and bowel: Colonic diverticuli. Featureless nondistended left colon. Appendix: No evidence of appendicitis. Intraperitoneal space: Unremarkable. No free air. No significant fluid collection. Vasculature: Unremarkable. No abdominal aortic aneurysm. Lymph nodes: Unremarkable. No enlarged lymph nodes. Urinary bladder: Unremarkable as visualized. Reproductive: Unremarkable as visualized. Bones/joints: Nonspecific focus of sclerosis left iliac bone. Foci of areas of sclerosis scattered throughout the spine. Destructive process of the posterior aspect of L1 vertebral body with pathologic fracture through the cortex of the inferior endplate posteriorly. Lucent destructive process extends into the right pedicle. Soft tissues: Umbilical hernia containing fatty omentum. Focal protuberant extension of the midline upper abdominal margin into the subcutaneous soft tissues without definite breech of the peritoneal margin. Focal segment of confluent small bowel in the central abdomen right of midline suggesting wall thickening and artifact extension related to intraluminal nonspecific hyperdense material. There are a few scattered flecks of hyperdense material within the colon. IMPRESSION: 1. Destructive bone process of L1 with a pathologic fracture of the inferior endplate of L1 posteriorly. Findings are concerning for primary bone neoplasm or metastases. 2. Multiple foci of areas of sclerosis of the spine which are nonspecific although underlying process of mixed lytic and sclerotic metastases could be included in the differential. Although findings could reflect areas of bone island. Lesion within L4 could possibly reflect yoly angioma. Further evaluation clinically is recommended. In accordance to the clinical history of lung cancer further comparison surveillance assessment or further follow-up staging imaging or correlation to PET imaging is recommended. 3. Focal segment of confluent small bowel central abdomen right of midline with underlying wall thickening is nonspecific could suggest enteritis versus other etiology and appears to contain hyperdense intraluminal material. 4. Left adrenal gland mass/nodule. This is a newly developed finding within the left adrenal gland compared to the prior chest CT of 05/15/2019 and would be suspicious for possible metastases. Recommend adrenal CT. May consider chemical shift MRI (CS-MR). 5. Left renal sinus calcification which could be nonobstructive collecting structure versus renal vascular calcification. 6. Umbilical hernia containing fatty omentum. 7. Pericardial effusion. COMMENTS: Consistent with the [employer]'s Incidental Findings Committee white paper (J Am Talia Radiol 2017): For any incidental adrenal lesion greater than 1 cm but less than 4 cm classified in this report as benign, likely benign, or containing fat (including classification as an adenoma or myelolipoma), no follow-up imaging is recommended per consensus recommendations based on imaging criteria. Further lab evaluation could be pursued if warranted based on clinical findings. Electronically signed by: Dolly Hernandez On 01/07/2020 08:14:06 AM
[2020-01-07] MEDS ORDERED: NORC1TAB7 PO ×2 (11:26→11:28)
[2020-01-07] MEDS ORDERED: CEFD1CAP8 PO (11:26)
[2020-01-07 11:35] VITALS: BP 112/72
--- NOTE | 2020-01-07 12:22 | RADONC.CN ---
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 Moore and Dr. Rios. She completed WBRT with Dr. Moore earlier this year and 4 cycles of ch emoimmunotherapy (quartz valley doublet + atezolizumab) with good response noted. She remains on single agent atezolizumab which started in July 2019. She presented to the ED at [facility] with increasing low back pain. A CT abdomen pelvis was completed here which shows a pathologic L1 right pedicle fracture, without evidence of vertebral body collapse or retropulsion into the spinal canal. Per her myChart (my only access to her [facility] medical records at time of visit today) this metastatic lesion was present without pathologic fracture on CT abdomen from 09/26/19. I have been asked to assess for any urgent indication for RT to this lesion. Diagnosis/Treatment History Oncologic History As above Interval History Patient reports subacute onset of low back pain over the past 2 weeks. Last night the pain had progressed to the point where she could no longer sleep or lay comfortably. This prompted her to present to ED. Since coming to the ED her pain is under much better control. She is eager to go home. She reports the pain is located in the low back BL, but with a right sided predominance. It is constant sharp and does not radiate down the legs. The pain medication she has received has reduced it to 3/10 but last night it was 10/10. She reports no motor weakness of lower extremities, no saddle anesthesia, or sensory changes, and no bowel or bladder incontinence or retention. She expressed desire to keep her oncologic care in [place]. States she has a follow up with Dr. Moore on 01/19/20 to review an MRI head. Past Medical History: ES SCLC Hypothyroid HTN HPL Past Surgical History: Tubal ligation Thoracentesis Family History: Non-Contributory Social History: Former smoker 50+ pk year Non-drinker Allergies / Meds Allergies: Coded Allergies: No Known Allergies (Unverified , 05/15/19) Home Meds Active Scripts Hydrocodone/Acetaminophen ([place] 5-325 Tablet) 1 Each Tablet, 1-2 TAB PO Q4-6HP PRN for pain MDD 12 Tablet(s) for 5 Days, #30 TAB Prov:ALESSANDRO ZHENG PA-C 01/07/20 Hydrocodone/Acetaminophen ([place] 5-325 Tablet) 1 Each Tablet, 1-2 TAB PO Q4-6HP PRN for pain MDD 12 Tablet(s) for 5 Days, #30 TAB Prov:ALESSANDRO ZHENG PA-C 01/07/20 Cefdinir (Cefdinir) 300 Mg Capsule, 1 CAP PO BID for 10 Days, #20 CAP Prov:ALESSANDRO ZHENG PA-C 01/07/20 Ondansetron HCl (Ondansetron HCl) 8 Mg Tablet, 8 MG PO Q6H PRN for NAUSEA OR VOMITING, #30 TAB 3 Refills Prov:Katelin James MD 06/06/19 Reported Medications Allopurinol (Allopurinol) 100 Mg Tablet, 100 MG PO DAILY for 30 Days, #30 TAB 01/07/20 Memantine HCl (Memantine HCl) 10 Mg Tablet, 10 MG PO BID 11/17/19 Multivitamin,Therapeutic (Thera-Tabs) 1 Each Tablet, 1 TAB PO QPM, TAB 05/15/19 Acetaminophen (Acetaminophen) 500 Mg Tablet, 1000 MG PO Q6H PRN for PAIN 05/15/19 Glucosa Catalan 2Kcl/Chondroitin Catalan (Glucosamine & Chondroitin Cap) 1 Each Capsule, 1 EACH PO BID, CAP 05/15/19 Atorvastatin Calcium (Atorvastatin Calcium) 40 Mg Tablet, 40 MG PO QPM 05/15/19 Levothyroxine Sodium (LEVOTHYROXINE SODIUM) 75 Mcg Tablet, 75 MG PO QAM 05/15/19 Metformin HCl (Metformin HCl) 1,000 Mg Tablet, 1000 MG PO BID 1500MG TOTAL AT 1800 :PATIENT RECEIVED CONTRAST ON 05/15/19 05/15/19 Lisinopril (Lisinopril) 10 Mg Tab, 10 MG PO QPM 12/04/16 Metoprolol Tartrate (Metoprolol Tartrate) 50 Mg Tab, 50 MG PO BID 12/04/16 Metformin HCl (Metformin HCl) 500 Mg Tab, 500 MG PO QPM 1500MGS TOTAL AT 1800 :PATIENT RECEIVED CONTRAST ON 05/15/19 12/04/16 Discontinued Reported Medications Ergocalciferol (Vitamin D2) (Vitamin D2) 2,000 Unit Tablet, 2000 MG PO QPM 05/15/19 Discontinued Scripts Prochlorperazine Maleate (Prochlorperazine Maleate) 10 Mg Tablet, 10 MG PO Q8HP PRN for NAUSEA OR VOMITING, #30 TAB 3 Refills Prov:Katelin James MD 06/06/19 Review of Systems Constitutional: Denies: Chills, Fever, Night Sweats Eyes: Denies: Pain, Vision change HEENT: Denies: Head Aches, Dysphagia, Sore Throat Skin: Denies: Rash, Lesions, Bruising Pulmonary: Reports: Cough; Denies: Dyspnea Cardiovascular: Denies: Chest Pain, Palpitations, Edema Gastrointestinal: Denies: Nausea, Vomiting, Abdominal Pain, Diarrhea Genitourinary: Denies: Dysuria, Frequency, Incontinence Hematologic: Denies: Bruising, Petecchia, Enlarged Lymph Nodes Musculoskeletal: Reports: Back pain; Denies: Neck pain, Shoulder pain, Leg pain, Joint pain Neurological: Denies: Weakness, Numbness, Incoordination Psych: Reports: Mood Normal; Denies: Memory Issues, Thoughts of Self Harm Vital Signs Vital Signs Date Time Temp Pulse Resp B/P (MAP) Pulse Ox O2 Delivery O2 Flow Rate FiO2 01/07/20 10:45 104 98/63 (75) 98 01/07/20 07:28 16 Room Air 01/07/20 03:02 98.2 General Exam: Positive: Alert, Cooperative, No Acute Distress Eye Exam: Positive: PERRLA, EOMI ENT EXAM: Positive: Mucous membr. moist/pink, Pharynx Normal Neck Exam: Positive: Supple; Negative: Thyromegaly, Lymphadenopathy Chest Exam: Positive: Normal air movement; Negative: Rales, Rhonchi, Wheezing Heart Exam: Positive: Rate Normal, Regular Rhythm Abdomen Exam: Negative: Normal bowel sounds, BS Hyperactive, BS Hypoactive, Soft, Tenderness, Hepatospenomegaly, Mass, Hernia, Other Extremity Exam: Negative: Edema, Tenderness Skin Exam: Positive: Nl turgor and temperature; Negative: Rash Neuro Exam: Positive: Normal Gait, Normal Speech, Normal Tone, Sensation Intact, Cranial Nerves 3-12 NL, Reflexes 2+ Psych Exam: Positive: Mental status NL, Mood NL, Memory Intact Other Physical Findings Paraspinal tenderness right CVA Diagnostic and Laboratory Diagnostic Review Radiologic images, relevant labs and pathology reports were personally reviewed and discussed with Ms. Garvey. Laboratory Tests 01/07/20 03:50 Laboratory Tests 01/07/20 03:50: White Blood Count 9.2, Red Blood Count 3.59L, Hemoglobin 11.9L, Hematocrit 35.4L, Mean Corpuscular Volume 98.6H, Mean Corpuscular Hemoglobin 33.1H, Mean Corpuscular Hemoglobin Concent 33.6, Red Cell Distribution Width 14.2, Platelet Count 248, Immature Granulocyte % (Auto) 0.4, Neutrophils (%) (Auto) 66.5H, Lymphocytes (%) (Auto) 24.4, Monocytes (%) (Auto) 7.0H, Eosinophils (%) (Auto) 1.3, Basophils (%) (Auto) 0.4, Neutrophils # (Auto) 6.1, Lymphocytes # (Auto) 2.3, Monocytes # (Auto) 0.7, Eosinophils # (Auto) 0.1, Basophils # (Auto) 0.0, Nucleated Red Blood Cells % (auto) 0.0, Sodium Level 134L, Potassium Level 4.4, Chloride Level 101, Carbon Dioxide Level 23, Anion Gap 10, Blood Urea Nitrogen 13, Creatinine 1.48H, Glomerular Filtration Rate 39.4L, Fasting Glucose 150H, Calcium Level 9.7, Total Bilirubin 0.4, Direct Bilirubin 0.1, Aspartate Amino Transf (AST/SGOT) 26, Alanine Aminotransferase (ALT/SGPT) 27, Alkaline Phosphatase 69, Total Protein 7.1, Albumin 3.8, Albumin/Globulin Ratio 1.2, Lipase 156 01/07/20 06:42: Urine Color YELLOW, Urine Appearance CLOUDYH, Urine pH 5.0, Urine Specific [place] 1.017, Urine Protein NEGATIVE, Urine Glucose (UA) NEGATIVE, Urine Ketones NEGATIVE, Urine Blood NEGATIVE, Urine Nitrite NEGATIVE, Urine Bilirubin NEGATIVE, Urine Urobilinogen 0.2, Urine Leukocyte Esterase 3+H, Urine WBC (Auto) 13H, Urine RBC (Auto) 6H, Urine Hyaline Casts (Auto) 1, Urine Bacteria (Auto) 1+H, Urine Squamous Epithelial Cells 12, Urine Mucus (Auto) SMALL, Urine Sperm (Auto) Assessment and Plan Impression Ms. 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 Moore and Dr. Rios. She completed WBRT with Dr. Moore earlier this year and 4 cycles of chemoimmunotherapy (quartz valley doublet + atezolizumab) with good response noted. She remains on single agent atezolizumab which started in July 2019. She presented to the ED at [facility] with increasing low back pain. A CT abdomen pelvis was completed here which shows a pathologic L1 right pedicle fracture, without evidence of vertebral body collapse or retropulsion into the spinal canal. Per her Go[employer] (my only access to her [facility] medical records at time of visit today) this metastatic lesion was present without pathologic fracture on CT abdomen from 09/26/19. I have been asked to assess for any urgent indication for RT to this lesion. Stage SCLC stage IV (extensive stage) Performance Status ECOG 1 Plan We had an extensive discussion with Ms. Garvey regarding the diagnosis at hand and available therapeutic options. I believe her pain is related to new pathologic fracture of the right L1 pedicle from progression of a pre-existing metastasis there (it was mentioned on report from CT abdomen pelvis 09/25/09 from [facility], which patient showed me through her [facility]). I do not see any evidence of impingement on the spinal canal at this or any other level visible on her recent CT abdomen pelvis from this ED visit. She has no signs of cord compression. Therefore there is no urgent indication for radiation or elective admission to the hospital for cancer treatment. Rather as I know her radiation oncologist Dr. Moore well, I have (with the patient's permission) reached out to him to get her in for follow up sooner than later. He said he would get her in to the office this week. She may ultimately undergo additional diagnostic imaging (i.e. spine MRI) if he sees fit, but based on the lack of cord compression symptoms at this time I do not think that is an emergent need. We instructed the patient that if there were any questions,concerns or changes in clinical status in the interim to contact us. Recommendations No indication for emergent RT Appropriate follow up with Dr. Moore (radiation oncology @ [facility]) facilitated per patient's preference CRISTIAN ROSENBERG MD Jan 07, 2020 12:21
--- NOTE | 2020-01-07 13:13 | ED PDOC ---
Post-Departure Follow-Up ruben medrano faxed formal report of ct abd/p for fu Faith Dixon MD Jan 07, 2020 13:13
--- NOTE | 2020-01-07 13:52 | CR.PDOC ---
General Date of Consultation: Jan 07, 2020 Consultation REASON FOR CONSULTATION/CHIEF COMPLAINT: ERIKA, UTI, Pathological fracture of lumber vertebra HISTORY OF PRESENT ILLNESS: This is a 54 year old female with metastatic small cell cancer of lung s/p chemo now on immunotherapy , s/p whole brain radiation presented to ED with right lower back and flank pain . The pain started 3 days ago she was trying to manage it with tylenol, skelaxin , heating pads with no relief, The pain was sharp aching constant 10/10 in intensity before now 3/10 after getting pain meds in the ED. She came to the ED for this intractable pain. She reports no motor weakness of lower extremities, no saddle anesthesia, or sensory changes, and no bowel or bladder incontinence or retention. She had CT abd pelvis done and was found to have bone mets through out her spine and L1 right pedicle pathological fracture without cord compromise. She was found to have a dirty UA with only 13 wbcs and 1+ bacteria. She denied any dysuria or urgency or hematuria. She was also noted to have mild ERIKA with Creatinine of 1.47 which is in fact better than her number on 12/29/19 which wad 1.57. She denied any chest pain ro SOB, denied any diarrhea or abdominal pain, denied any headache, denied any bowel problems, denied any leg swelling. It is constant sharp and does not radiate down the legs. ALLERGIES: Please see below. HOME MEDICATIONS: Please see below. PAST MEDICAL HISTORY: SMALL CELL LUNG CANCER WITH BRAIN METS DIAGNOSED 04/2019 S?p Brain radiation Dr Rios Med Onc [phone], Dr Moore [phone] rad onc HTN DM TYPE 2 HYPOTHYROIDISM BL HIP DEGENERATIVE CHANGES AND SPURRING PER X-RAY 07/2015 LUMBAR MODERATE DDD PER X-RAY 07/2015 DVT UPPER EXTREMITY 04/28/16 HYPERLIPIDEMIA PAST SURGICAL HISTORY: TUBAL LIGATION 1989 FAMILY HISTORY: FATHER: ALIVE 75 YRS, LOW BLOOD SUGAR, MEINEIRE, HTN MOTHER: ALIVE 74 YRS, DM, HTN, HYPERCHOLESTEROLEMIA SIBLINGS: HTN, TACHYCARDIA MATERNAL GRAND MOTHER: ?STOMACH CA SOCIAL HISTORY: Ex smoker, No alcohol or drugs REVIEW OF SYSTEMS: All 11 point review of systems are negative except as above in HPI PHYSICAL EXAMINATION: VITAL SIGNS: Please see below. GENERAL APPEARANCE: Awake alert, oriented x 3 , in no acute distress. HEENT: Normocephalic , atraumatic, moist mucous membranes anicteric eyes RESPIRATORY: Clear to auscultation bilaterally CARDIOVASCULAR: S1, s2 regular mildly tachycardic, no rub murmur or gallop ABDOMEN: obese, soft, nontender , normal bowel sounds. Back: Tenderness to palpation on the right lower back just above the hip bone. EXTREMITIES: No edema NEUROLOGICAL: No focal neurodeficits, no bowel or bladder issues, LABORATORY DATA: Please see below. ASSESSMENT/PLAN: Mild ERIKA: probably due to poor oral intake on the back ground of lisinopril. No obstruction in CT abd and pelvis. Patient received 1 l ivf, BPs on the lower side. Instructed to stop lisinopril for now. Possible UTI: dirty UA, culture have been sent will give a course of Cefdinir Lumber vertebral LI right pedicle pathological fracture and mets through out the spine. Patient's Med-Onc was contacted by ED and they are going to schedule her with their own spinal surgeon and see her early current appointment is on 01/21/20. Seen by Dr Campuzano our rad-onc . She is a candidate for palliative radiation to the spine but as there is no cord compromise does not need to be admitted for this. pain control with norco. Dr Campuzano reached out to her own Rad -Onc at [facility] Dr Moore and he is going to see her this week. Vital Signs/I&O Vital Signs Date Time Temp Pulse Resp B/P (MAP) Pulse Ox O2 Delivery O2 Flow Rate FiO2 01/07/20 08:45 107 109/70 (83) 100 01/07/20 07:28 16 Room Air 01/07/20 03:02 98.2 Laboratory Data Labs 24H Laboratory Tests 2 01/07/20 03:50: Immature Granulocyte % (Auto) 0.4, Neutrophils (%) (Auto) 66.5H, Lymphocytes (%) (Auto) 24.4, Monocytes (%) (Auto) 7.0H, Eosinophils (%) (Auto) 1.3, Basophils (%) (Auto) 0.4, Neutrophils # (Auto) 6.1, Lymphocytes # (Auto) 2.3, Monocytes # (Auto) 0.7, Eosinophils # (Auto) 0.1, Basophils # (Auto) 0.0, Nucleated Red Blood Cells % (auto) 0.0, Anion Gap 10, Glomerular Filtration Rate 39.4L, Calcium Level 9.7, Total Bilirubin 0.4, Direct Bilirubin 0.1, Aspartate Amino Transf (AST/SGOT) 26, Alanine Aminotransferase (ALT/SGPT) 27, Alkaline Phosphatase 69, Total Protein 7.1, Albumin 3.8, Albumin/Globulin Ratio 1.2, Lipase 156 01/07/20 06:42: Urine Color YELLOW, Urine Appearance CLOUDYH, Urine pH 5.0, Urine Specific [place] 1.017, Urine Protein NEGATIVE, Urine Glucose (UA) NEGATIVE, Urine Ketones NEGATIVE, Urine Blood NEGATIVE, Urine Nitrite NEGATIVE, Urine Bilirubin NEGATIVE, Urine Urobilinogen 0.2, Urine Leukocyte Esterase 3+H, Urine WBC (Auto) 13H, Urine RBC (Auto) 6H, Urine Hyaline Casts (Auto) 1, Urine Bacteria (Auto) 1+H, Urine Squamous Epithelial Cells 12, Urine Mucus (Auto) SMALL, Urine Sperm (Auto) CBC/BMP Laboratory Tests 01/07/20 03:50 Microbiology Microbiology 01/07/20 Urine Culture, Received Pending Allergies Coded Allergies: No Known Allergies (Unverified , 05/15/19) Home Medications Scheduled Allopurinol (Allopurinol) 100 Mg Tablet, 100 MG PO DAILY for 30 Days, #30 (Reported) Atorvastatin Calcium (Atorvastatin Calcium) 40 Mg Tablet, 40 MG PO QPM, (Reported) Cefdinir (Cefdinir) 300 Mg Capsule, 1 CAP PO BID for 10 Days, #20 Glucosa Catalan 2Kcl/Chondroitin Catalan (Glucosamine & Chondroitin Cap) 1 Each Capsule, 1 EACH PO BID, (Reported) Levothyroxine Sodium (Levothyroxine Sodium) 75 Mcg Tablet, 75 MG PO QAM, (Re ported) Lisinopril (Lisinopril) 10 Mg Tab, 10 MG PO QPM, (Reported) Memantine HCl (Memantine HCl) 10 Mg Tablet, 10 MG PO BID, (Reported) Metformin HCl (Metformin HCl) 500 Mg Tab, 500 MG PO QPM, (Reported) 1500MGS TOTAL AT 1800 :PATIENT RECEIVED CONTRAST ON 05/15/19 Metformin HCl (Metformin HCl) 1,000 Mg Tablet, 1,000 MG PO BID, (Reported) 1500MG TOTAL AT 1800 :PATIENT RECEIVED CONTRAST ON 05/15/19 Metoprolol Tartrate (Metoprolol Tartrate) 50 Mg Tab, 50 MG PO BID, (Reported) Multivitamin,Therapeutic (Thera-Tabs) 1 Each Tablet, 1 TAB PO QPM, (Reported) Scheduled PRN Acetaminophen (Acetaminophen) 500 Mg Tablet, 1,000 MG PO Q6H PRN for PAIN, (Reported) Hydrocodone/Acetaminophen ([place] 5-325 Tablet) 1 Each Tablet, 1-2 TAB PO Q4-6HP PRN for pain for 5 Days, #30 Hydrocodone/Acetaminophen ([place] 5-325 Tablet) 1 Each Tablet, 1-2 TAB PO Q4-6HP PRN for pain for 5 Days, #30 Ondansetron HCl (Ondansetron HCl) 8 Mg Tablet, 8 MG PO Q6H PRN for NAUSEA OR VOMITING, #30 ELSA ROLDAN MD Jan 07, 2020 11:20
== END 2020-01-07 11:42 | disposition home or self-care (01) ==
LOC: M ED 03:01
DX: M84.58XA Pathological fracture in neoplastic disease, other specified site, initial encounter for fracture (principal); N39.0 Urinary tract infection, site not specified; N17.9 Acute kidney failure, unspecified; C34.90 Malignant neoplasm of unspecified part of unspecified bronchus or lung; C79.31 Secondary malignant neoplasm of brain; C79.51 Secondary malignant neoplasm of bone; E27.9 Disorder of adrenal gland, unspecified; K63.89 Other specified diseases of intestine; N28.89 Other specified disorders of kidney and ureter; K42.9 Umbilical hernia without obstruction or gangrene; I31.3 Pericardial effusion (noninflammatory); E11.9 Type 2 diabetes mellitus without complications; E03.9 Hypothyroidism, unspecified; Z86.718 Personal history of other venous thrombosis and embolism; F17.200 Nicotine dependence, unspecified, uncomplicated; Z92.21 Personal history of antineoplastic chemotherapy; Z79.84 Long term (current) use of oral hypoglycemic drugs; Z79.899 Other long term (current) drug therapy
CPT/HCPCS: 74176; 80048; 80076; 81001; 83690; 85025; 87088; 87186; 96361; 96374; 99284; J2270

== ENCOUNTER → 2020-02-19 | Outpatient (CLI) | payer OTHER ==
[~2020-02-19] MED LIST changes: +ALLO100T PO; +CEFD1CAP8 PO; +NORC1TAB7 PO
[2020-02-19 09:36] LABS: BASO % 0.5 % (0.0-1.0); EOS # 0.2 10^3/uL (0.0-0.5); EOS % 2.9 % (0.0-3.0); HEMOGLOBIN 11.1 g/dl (12.0-15.5); LYMPH # 0.9 10^3/uL (1.5-5.0); LYMPH % 15.4 % (24.0-44.0); MEAN CORPUSCULAR HEMOGLOBIN 34.7 pg (27.0-33.0); MEAN CORPUSCULAR HGB CONC 33.6 g/dl (32.0-36.5); MEAN CORPUSCULAR VOLUME 103.1 fl (80.0-96.0); MONO # 0.7 10^3/uL (0.0-0.8); MONO % 12.5 % (0.0-5.0); NEUTROPHILS % 67.7 % (36.0-66.0); PLATELET COUNT, AUTOMATED 198 10^3/uL (150-450); WHITE BLOOD COUNT 5.9 10^3/uL (4.0-10.0)
[2020-02-19 09:56] LABS: BILIRUBIN,TOTAL 0.2 MG/DL (0.2-1.0); CALCIUM LEVEL 9.1 MG/DL (8.5-10.1); CREATININE FOR GFR 1.31 MG/DL (0.55-1.30); GLOMERULAR FILTRATION RATE 45.4 (>51); POTASSIUM SERUM 4.2 MEQ/L (3.5-5.1); THYROID STIMULATING HORMONE 9.07 uIU/ML (0.358-3.740); TOTAL PROTEIN 6.2 GM/DL (6.4-8.2)
== END ==
LOC: M LAB 08:59
PROVIDERS: ATTEND Physician Assistant Medical
DX: C34.90 Malignant neoplasm of unspecified part of unspecified bronchus or lung (principal)

== ENCOUNTER → 2020-03-12 | Outpatient (CLI) | payer OTHER | LOC: M LABSMTC 09:46 | PROVIDERS: ATTEND Neurological Surgery | DX: Z20.822 Contact with and (suspected) exposure to COVID-19 (principal); C79.31 Secondary malignant neoplasm of brain ==

== ENCOUNTER → 2020-03-22 | Outpatient (CLI) | payer OTHER ==
[~2020-03-22] MED LIST changes: +LISI10TA22 PO; -LISI10TA4 PO
--- NOTE | 2020-03-22 09:55 | REP ---
INDICATION: CHRONIC KIDNEY DISEASE, STAGE 3A COMPARISON: None TECHNIQUE: Real time bhandari scale ultrasound examination using curved array transducer. FINDINGS: Bilateral kidneys are normal in contour, size, echogenicity, and reniform shape. No hydronephrosis, nephrolithiasis, cystic or renal mass lesion. Right kidney measures 9.5 x 4.3 x 3.8 cm. Left kidney measures 9.6 x 4.8 x 4.9 cm. Bladder is under distended and grossly normal. IMPRESSION: 1. Normal renal ultrasound <Electronically signed by Zachary Escamilla > 03/22/20 [id number]
== END ==
LOC: M RAD 09:22
PROVIDERS: ATTEND Physician Assistant
DX: N18.31 Chronic kidney disease, stage 3a (principal)

== ENCOUNTER 2020-04-12 15:01 | Inpatient (IN) | payer OTHER ==
[~2020-04-12] VITALS: Ht 157.5 cm; Wt 67.5 kg
--- OUTSIDE RECORDS SUMMARY | 2020-04-12 15:06 | CCD ---
Author Author [facility] Organization [facility] Address Unknown Phone Unavailable Care Team Providers Care Tumblers Supervisor Name Role Phone Yeny Joiner Unavailable PROBLEMS Type Condition ICD9-CM Code [id number] Code Onset Dates Condition S tatus SNOMED Code Notes Problem Essential (primary) hypertension I10 Active 59157038 Problem Hyperlipemia E78.5 Active 87405620 Problem Hypothyroidism E03.9 Active 77514335 Problem Vitamin D deficiency E55.9 Active 32084016 Problem Primary osteoarthritis of right hip M16.11 Acti ve 764089447 Problem Psoriasis L40.9 Active 7869885 Problem Controlled type 2 diabetes m ellitus without complication, without long- term current use of insulin E11.9 Active 13160362 4 Problem Pure hypercholesterolemia E78.00 Active 887219 004 Problem Cigarette nicotine dependence without complication F17.210 Active 42591635 Problem Enlarged thyroid E04.9 Active 1807513 Problem Oropharyngeal dysphagia R13.12 Active 93581404 Problem Primary malignant neoplasm o f lung metastatic to other site, unspecified laterality C34.90 Active 84933672 Problem Acute deep vein thrombosis ( DVT) of upper extremity, unspecified laterality, unspecified vein I82.629 Active 7536367 17342649 Problem 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 Activ e 50260483 Problem 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.218 Active [id number] Problem Small cell lung cancer C34.90 Active 125439069 Problem Brain mass G93.89 Active 872910934 ALLERGIES No Known Allergies ENCOUNTERS from 1965 to 2020-03-19 Encounter Location Date Provider Diagnosis [facility] [place] [address] [place] [address] Feb, Reg lin Joiner Hypothyroidism E03.9 ; Primary malignant neoplasm of lung metastatic to other site, unspecified laterality C34.90 ; Essential (primary) hypertension I10 and Controlled type 2 diabetes mellitus without complication, without long-term current use of insulin E11.9 IMMUNIZATIONS No Information SOCIAL HISTORY Tobacco Use: Social History Observation Description Date Details (start date - stop date) Former Smoker Sex Assigned At : Social History Observation Description Sex Assigned At Unknown Audit Question Answer Notes Total Score: 1 Interpretation: Alcohol Education Sexual Hx: Question Answer Notes Had sex in the last 12 months (vaginal, oral, or anal)? Yes Have you ever had an STD? No with Men only Use protection? No Drug and Alcohol Question Answer Notes Total Score: 0 Interpretation: No problems reported Alcohol Screening: Question Answer Notes Did you have a drink containing alcohol in the past year? Ye s Points 1 Interpretation Negative How often did you have six or more drinks on one occas ion in the past year? Never (0 points) How many drinks did you have on a typica l day when you were drinking in the past year? 1 or 2 (0 points) How often did you have a drink containing alcohol in t he past year? Monthly or less (1 point) BMI Care Goal Follow-Up Question Answer Notes Above Normal BMI Follow-Up Dietary management educatio n, guidance, and counseling Tobacco Use: Question Answer Notes Are you a: former smoker How long has it been since you last smoked? 3-6 months REASON FOR REFERRAL No Information VITAL SIGNS Weight 161.4 lbs Feb, Height 63 in Feb, BMI 28.59 kg/m2 Feb, Heart Rate 103 /min Feb, Respiratory Rate 18 /min Feb, Temperature 98.1 degrees Fahrenheit Feb, Oximetry 100 Feb, Blood pressure systolic 110 mm Hg Feb, Blood pressure diastolic 62 mm Hg Feb, MEDICATIONS Medication SIG (Take, Route, Frequency, Duration) Notes Start Da te End Date Status Aleve 220 MG 1 capsule with food or milk as needed Orally every 12 hrs for 7 day(s) Mar, Not-Taking Ventolin HFA 108 (90 Base) MCG/ACT 1 puff as needed In halation every 4 hrs as needed for SOB for 30 days Jan, Activ e Yuma 5-325 MG 1 tablet as needed Orally every 6 hrs Active Vqhvsq-Hyibuyltz-MSH Complex OTC 2 tablet Orally Once a day Active Blood Glucose Test - as directed In Vitro Dx: E11.21 Daily for 3 0 days Dec, Active Metformin HCl 1000 MG 1 tablet with a meal orally twice daily Active Lancets - as directed Dx: E11.21 Daily for 30 days Dec Active Glucometer as directed Dx E11.21 Daily for 30 days Dec, Active Clobetasol Propionate E 0.05 % 1 application Externall y Twice a day to rash on thigh for 10 day(s) Dec, Active Allopurinol 300 MG 1 tablet Orally Once a day for 30 day(s) June, Active Multivitamins OTC 1 tablet Orally Once a day Active Atorvastatin Calcium 20 MG 1 tablet Orally Once a day 2019 Active Metoprolol Tartrate 50 MG 1 tablet Orally Twice a day Active Memantine HCl 10 MG TAKE ONE TABLET BY MOUTH TWO TIMES A DAY Oral bid Active Aspirin 81 MG 1 tablet Orally Once a day Dec, Active Lisinopril 10 MG TAKE ONE TABLET BY MOUTH EVERY DAY orally once daily Not-Taking Cortisporin 3.5-83066-3 4 drops into affected ear Ot ic Three times a day for 10 day(s) Jan, Not-Taking Vitamin D (Cholecalciferol) 2000 1 tablet Orally Once a day Apr, Active Levothyroxine Sodium 125 MCG 1 tablet in the morning o n an empty stomach Orally Once a day Active Blood Pressure Kit - as directed _ Dx: I10 for 90 days Apr, Active PROCEDURES No Information RESULTS No Results REASON FOR VISIT 1 month lab follow up MEDICAL (GENERAL) HISTORY Type Description Date Medical History small cell lung cancer with brain mets diagnosed 04/2019, comp fx suspected spinal mets - Following with Oncology in [place] Medical History HTN Medical History DM Type 2 Medical History Hypothyroidism Medical History BL hip Degenerative changes and spuring per x-ray 07/2015 Medical History Lumbar moderate DDD per x-ray 07/2015 Medical History DVT upper extremity 04/28/16 Medical History Hyperlipidemia Medical History Nicotine dep Surgical History tubal ligation 1989 Hospitalization History child Hospitalization History chest pain 05/15- Goals Section No Information Health Concerns No Information MEDICAL EQUIPMENT No Information MENTAL STATUS No Information FUNCTIONAL STATUS No Information ASSESSMENTS Encounter Date Diagnosis Assessment Notes Treatment Notes Treatm ent Clinical Notes Feb, Hypothyroidism (ICD-10 - E03.9) Feb, Primary malignant neoplasm o f lung metastatic to other site, unspecified laterality (ICD-10 - C34.90) tx per oncology as above Feb, Essential (primary) hypertension (ICD-10 - I10) Feb, Controlled type 2 diabetes m ellitus without complication, without long-term current use of insulin (ICD-10 - E11.9) PLAN OF TREATMENT Medication Medication Name Sig Start Date Stop Date Metoprolol Tartrate 50 MG 1 tablet Orally Twice a day Metformin HCl 1000 MG 1 tablet with a meal orally twice daily Aspirin 81 MG 1 tablet Orally Once a day Dec, Levothyroxine Sodium 125 MCG 1 tablet in the morning o n an empty stomach Orally Once a day Atorvastatin Calcium 20 MG 1 tablet Orally Once a day Dec, Treatment Notes Assessment Notes Clinical Notes Primary malignant neoplasm of lung metas tatic to other site, unspecified laterality tx per oncology as above Next Appt Details 3 Months Reason: Insurance Providers Payer Name Payer Address Payer Phone Insured Name Patient Relati onship to Insured Coverage Start Date Coverage End Date [facility] [employer]POR[employer] CLAIMS DEPT [address] [facility] [phone] ALEXA TOMLIN self
--- OUTSIDE RECORDS SUMMARY | 2020-04-12 15:06 | CCD | Summary of Care ---
Author Author [facility] Organization [facility] Address Unknown Phone Unavailable Care Team Providers Care Commercial Underwriter Name Role Phone Yeny Joiner PCP Unavailable Reason for Visit * Reason Comments Follow-up follow up Encounter Details Care Team Description Date Type Department Jose Wei MD [address] [place] [address] Encounter for palliative care (Primary D x); Small cell lung cancer 03/09/2020 Telemedicine Multidisciplinary Programs [address] [facility] [address] [facility] [place] [address] Allergies Comments Active Allergy Reactions Severity Noted Date Pollen Extract Other (See 05/16/2019 Comments) documented as of this encounter (statuses as of 03/09/2020) Medications End Date Status Medication Sig Dispensed Refills Start Date 05/18/2020 Active Atorvastatin Calcium 40 Take 1 tablet 30 tablet MG Oral Tablet (LIPITOR) by mouth 0 every evening Additional Information Patient taking differently: 20 mg Oral Every evening, Reported on 01/19/2020 3:10 PM 05/18/2020 Active Metoprolol Tartrate 50 MG Take 1 tablet 60 tablet Oral Tablet (LOPRESSOR) by mouth Two 0 Times Daily Additional Information Patient taking differently: 25 mg Oral 2 Times Daily, Reported on 01/12/2020 12:53 PM 05/18/2020 Active Allopurinol 300 MG Oral Take 1 tablet 30 tablet Tablet (ZYLOPRIM) by mouth 0 daily Active metFORMIN HCl 1000 MG Take 1,000 mg 0 Oral Tablet (GLUCOPHAGE) by mouth nightly Active Glucosamine HCl Take 1 tablet 0 (GLUCOSAMINE PO) by mouth Two Times Daily Active Tab-A-William/Beta Carotene Take 1 tablet 0 Oral Tablet by mouth daily Active Aspirin 81 MG Oral Tablet Take 81 mg by 0 mouth daily Active HYDROcodone-Acetaminophen Take 1 tablet 0 5-325 MG Oral Tablet by mouth (LORTAB) every 6 (six) hours as needed for Pain Active Ondansetron HCl (ZOFRAN Take by mouth 0 PO) 03/24/2020 Active LORazepam 0.5 MG Oral Take 1 tablet 45 tablet 0 Tablet (Ativan) by mouth 1 every 8 (eight) hours as needed for Anxiety, Max Daily Dose: 1.5 mg documented as of this encounter (statuses as of 03/09/2020) Active Problems Problem Noted Date Encounter for palliative care 07/23/2019 Overview: Symptoms limited at postchemo nausea, n o longer depressed. Advised to bring back HCP form as we have only second pa ge scanned in [employer]. Has her with her son as alternate designated as HCP. Handed full set of advance directives for review. Small cell lung cancer 05/16/2019 Cancer Staging: Clinical stage from 08/27: Stage IVB (cT0, cN2, cM1c) - Signed by Corey Moore MD on 09/29/2019 documented as of this encounter (statuses as of 03/09/2020) Social History Date Tobacco Use Types Packs/Day Years Used Quit: 05/16/2019 Former Smoker Cigarettes 0.5 40 Smokeless Tobacco: Never Used Drinks/Week oz/Week Comments Alcohol Use Not Currently Sex Assigned at Date Recorded Not on file Date Recorded COVID-19 Exposure Response 02/23/2020 8:43 AM EST In the last month, have you been in contact with No / Unsure someone who was confirmed or suspected to have Coronavirus / COVID-19? documented as of this encounter Last Filed Vital Signs Reading Time Taken Comments Vital Sign 119/70 03/09/2020 1:23 PM EST pt reported bp Blood Pressure - - Pulse - - Temperature - - Respiratory Rate - - Oxygen Saturation - - Inhaled Oxygen Concentration 74.8 kg (165 lb) 03/09/2020 1:23 PM EST Weight 154.9 cm (5' 0.98") 03/09/2020 1:23 PM EST Height 31.19 03/09/2020 1:23 PM EST Body Mass Index documented in this encounter Patient Instructions * Patient Instructions* Jose Wei MD - 03/09/2020 2:15 PM EST Follow up in 6-8 weeks in infusion ideally or remotely. Lorazepam refilled at [facility] in [place]. Patient Education What Is Palliative Care? Both the person receiving treatment and family members help direct the plan of c are with the palliative care team. Palliative care is a way to improve quality of life for someone who is being nyasia ated for a serious illness. Topalliatemeans to ease the symptoms of an i llness.Palliative care providers are experts in easing symptoms that cause d istress. These may include pain, nausea,vomiting, anxiety, constipation, sleeping, and breathing problems. The people who are being treated and their samira ed ones are given emotional and spiritual support. Palliative care is given at t he same time astraditionalmedical care. Active treatment for the illness does not stop. Goals of palliative care Easing symptoms that cause distress. The main goal of palliative care is to ease symptoms. Symptoms may affect a persons ability to eat, be active, or spend time with others. Medicines and other methods are used. This gives the p erson a better quality of life while the illness is being treated. Coordinating care. This helps to make sure that each care provider is aware of the goals of care. Communication is done on a regular basis among all team m embers to make sure that the care goals are met. Meeting emotional and spiritual needs. The care team helps both the person being treated and family members cope with stress, depression, anxiety, and othe r issues. They can set up meetings with a counselor or guest advisor as kary red. Giving information and helping with decisions. Care providers can help peop le and their families get the information they need. They can also help when car e decisions need to be made. Helping create an advance care plan. This is a series of legal documents th at note a persons wishes for their future healthcare. It helps to make audrey e that if people cant speak for themselves, their wishes can still be molina ied out. The documents vary by state. Working with your palliative care team Palliative care is given by a team of people who focus on the physical, emotiona l, and psychosocial aspects of advanced illness. The team may include a palliati ve care provider or nurse, social media assistant, pharmacist, dietitian, counselor, spir itual advisor, and others. To get the most of palliative care, both the person a nd his or her loved ones have a role. What a person who is receiving medical treatment can do Tell your healthcare provider you are thinking about palliative care. Ask what p alliative services are available in your area. To ensure the best care, learn what you can about your illness and the goals of your care. If you are having pain and other symptoms due to a serious illness, a sk your healthcare provider for a palliative care referral. Treating these symptoms is best for your health and quality of life. If you need support in other ways, speak up. The care team is there to help you get what you need. What a family member can do Talk with the palliative care team often. Do your best to understand your loved ones illness and goals of care. When decisions need to be made, act on you r loved ones wishes. And if you have a concern or question, speak up. You can help the team make sure that your loved one has the best quality of life pos gwyn. Date Last Reviewed: 04/26/201619993803-6366 [employer] [address] [place] [address] 36. All rights reserved. This information is not intended as a substitute for p rofessional medical care. Always follow your healthcare professional's instructi ons. documented in this encounter Progress Notes * Jose Wei MD - 03/09/2020 2:15 PM ESTSummary: pall phone f/u Palliative Care Follow Up Note Appointment Location: Telephone Location/Type of Cancer: Lung Medical Oncologist: Flori Rios MD Interval History: Sugey Garvey is a 54 y.o. female seen today for follow up palliative care. Noted plans for reimaging GKS and chemo planned to start early next month. Appetite Ok, right hip pain, right leg desiree when getting cold. Takes Advil fo r the pain and heating pad, lorazepam 0.5 here and there, helping at night, able to sleep better. Overall no more nausea, having GK scheduled next week and chemo to start beginni ng of next month. Oncologic History: Lung, small cell lung cancer, [id number], extensive stage( brain mets, bone, pericardial effusion) Prior Therapy: - cisplatin/etoposide, s/p 4 cycles (atez added final two cycles), last dose on 07/23/2019; - maintenance atezolizumab - WBRT 3000 cGy in 10 fractions - completed 10/17/19. Concurrent memantine - palliative radiation to mediastinum and lower spine, 2000 cGy in 5 fractions c ompleted 01/20/2020 The information in this section was copied forward from a previous note for hist orical reference. Symptom Assessment 07/23/2019 02/04/2020 03/09/2020 Pain 0 10 - Pain Location - Back Hip(s) Fatigue No Yes - Drowsiness No Yes - Nausea Yes Yes No Vomitting Yes Yes No Lack Of Appetite No Yes No Constipation No No No Diarrhea No No No Dyspnea No - - Depression No - - Anxiety No Yes Yes OBJECTIVE: Vitals: Visit Vitals BP 119/70 Comment: pt reported bp Ht 1.549 m Wt 74.8 kg (165 lb) LMP (LMP Unknown) BMI 31.19 kg/m Physical Exam: Appears coherent Alert, oriented x 3 Data Reviewed: Pertinent data reviewed Reference #: [id number] My Prescriptions Patient Name: Sugey Garvey Date: 1965 Address: [address] [place] [address] Sex: Female Rx Written Rx Dispensed Drug Quantity Days Supply Prescriber Name Payment Method Dispenser 02/04/2020 02/06/2020 lorazepam 0.5 mg tablet 30 8 Jose Wei V Insuranc e [facility] #4 Others' Prescriptions Patient Name: Sugey Garvey Date: 1965 Address: [address] [place] [address] Sex: Female Rx Written Rx Dispensed Drug Quantity Days Supply Prescriber Name Payment Method Dispenser 01/12/2020 01/12/2020 hydrocodone-acetaminophen 5-325 mg tablet 30 5 [facility] Insurance [facility] #4 01/07/2020 01/07/2020 hydrocodone-acetaminophen 5-325 mg tablet 30 5 Radha Mora RPA-C Insurance [facility] #4 Patient Name: Sugey Garvey Date: 1965 Address: [address] [place] [address] Sex: Female Rx Written Rx Dispensed Drug Quantity Days Supply Prescriber Name Payment Method Dispenser 05/20/2019 05/20/2019 hydrocodone-acetaminophen 5-325 mg tablet 12 3 [facility] Insurance [facility] O * - Drugs marked with an asterisk are compound drugs. If the compound drug is ma de up of more than one controlled substance, then each controlled DIAGNOSIS: 1. Encounter for palliative care 2. Small cell lung cancer ASSESSMENT AND PLAN: Sugey Garvey is actually doing better than expected considering advanced todd gnancy and only palliative treatment available. 1. Encounter for palliative care- we discussed goals as remaining focused on sym ptoms and being able to address them timely. Sugey states she benefited from t he use of lorazepam, that she takes at night usually for both anxiety and sleep and I have refilled lorazepam 0.5 mg po q 8h prn for 45 tabs with NR. Sugey re michael positive otherwise willing to continue with treatment. 2. Widely metastatic small cell lung cancer- noted plans to continue with GK nex t week for brain lesions and systemic chemo to start next month. Advanced Care Planning: HCP on file HCP Status: Confirmed on File MOLST Status: Not Created Discussion of Hospice: Hospice 03/09/2020 Discussion of Hospice? No Referred to Hospice? - Other services involved in care today: Follow Up Appointment: Return in about 2 months (around 05/07/2020) for symptom c ontrol, goals of care. Issues to discuss during next visit: as above Refer to: This is a telephonic visit which was performed without the use of video technolo gy due to patient inability to connect with video. The patient was informed of t he risks including security breach, technological failure, inability to perform a physical exam which could delay or prevent an accurate diagnosis, and potentia l complications from treatment decisions rendered over a telephonic platform. Th e patient understands and consented to the use of a telephonic visit/telephone c all. Time spent on visit excluding Advance Care Plannin Time spent Advance Care Plannin Pasniciuc, Silviu V, MD documented in this encounter Plan of Treatment Care Team Description Date Type Specialty Chuy Ferguson MD [address] [place] [id number] 03/17/2020 Appointment 03/17/2020 Appointment Radiology Kameron Rios MD [address] [place] [address] [phone] 03/31/2020 Office Visit Hematology and Onco logy Health Maintenance Due Date Last Done Comments MMR Vaccines (1 of - 04/26/1966 Standard series) Varicella Vaccines (1 of [birth year]26/1966 2 - 2-dose childhood series) Pneumococcal Vaccine: 04/26/1973 Pediatrics (0 to 5 Years) and At-Risk Patients (6 to 64 Years) (1 of 3 - PCV13) DTaP,Tdap,and Td Vaccines 04/26/1974 (1 - Tdap) HIV Screening 04/26/1980 Cervical Cancer Screening 04/26/1988 5 years Breast Cancer Screening 2 04/26/2017 years Colon Cancer Screening 10 04/26/2017 yrs Influenza Vaccine 11/27/2019 Pneumococcal Vaccine: 65+ 04/26/2032 Years (1 of 1 - PPSV23) HIB Vaccines Aged Out No longer eligible based on patient's age to complete this topic Hepatitis A Vaccines Aged Out No longer eligibl e based on patient's age to complete this topic Hepatitis B Vaccines Aged Out No longer eligibl e based on patient's age to complete this topic IPV Vaccines Aged Out No longer eligible based on patient's age to complete this topic documented as of this encounter Results Not on filedocumented in this encounter Visit Diagnoses Diagnosis Encounter for palliative care - Primary Small cell lung cancer Malignant neoplasm of bronchus and lung , unspecified site documented in this encounter
--- OUTSIDE RECORDS SUMMARY | 2020-04-12 15:06 | CCD | Summary of Care ---
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 She pre medicate herself with imodium and zofran which works for pt she informed me. . Pt states she took both of these meds just right before MN last night for her MRI scan today. Pharmacy was contacted and informed of this information. Libertad Kruger RN talked with Filemon Gill pharmacist and he states pt is ok to have contrast this am. Gadolinium Derivatives Low 03/17/2020 Pollen Extract Other (See 05/16/2019 Comments) documented as of this encounter (statuses as of 03/31/2020) Medications End Date Status Medication Sig Dispensed Refills Start Date 05/18/2020 Active Atorvastatin Calcium 40 Take 1 tablet 30 tablet 11 MG Oral Tablet (LIPITOR) by mouth 0 every evening Additional Information Patient taking differently: 20 mg Oral Every evening, Reported on 01/19/2020 3:10 PM 05/18/2020 Active Metoprolol Tartrate 50 MG Take 1 tablet 60 tablet 11 Oral Tablet (LOPRESSOR) by mouth Two 0 Times Daily 05/18/2020 Active Allopurinol 300 MG Oral Take 1 tablet 30 tablet 11 Tablet (ZYLOPRIM) by mouth 0 daily Active [...] HCl (ZOFRAN Take by mouth 0 PO) Active Memantine HCl 5 MG Oral Take 10 mg by 0 Tablet (NAMENDA) mouth Two Times Daily Pt states she takes for her memory issues. 04/02/2020 Active Dexamethasone 4 MG Oral Take 2 4 tablet 0 Tablet (DECADRON) tablets by 1 mouth daily with breakfast for 2 daysTake on 04/01 and 04/02 (days 2 and 3 of chemo) 30 minutes before chemo pill etoposide 04/02/2020 Active Etoposide 50 MG Oral Take 3 12 capsule 0 03/31 Capsule (VEPESID) capsules by 1 mouth Two Times Daily for 2 daysTake on 04/01/ and 04/02 (days 2 and 3 of chemo) Active Ondansetron HCl 8 MG Oral Take 1 tablet 20 tablet 1 Tablet by mouth 1 (ZOFRAN)Indications: every 8 Secondary malignant (eight) hours neoplasm of brain and as needed spinal cord, Small cell for Nausea or lung cancer Vomiting Active Magnesium Oxide 400 MG Take 400 mg 30 capsule 3 Oral Capsule by mouth 1 daily documented as of this encounter (statuses as of 03/31/2020) Active Problems Problem Noted Date 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 Advised to bring back HCP form as we have only second pa scanned in [facility]. Has her with her son as alternate designated as HCP. Handed full set of advance directives for review. Small cell lung cancer 05/16/2019 Cancer Staging: Clinical stage from 08/27: Stage IVB (cT0, cN2, cM1c) - Signed by Corey Moore MD on 09/29/2019 documented as of this encounter (statuses as of 03/31/2020) Social History Date Tobacco Use Types Packs/Day Years Used Quit: 05/16/2019 Former Smoker Cigarettes 0.5 40 Smokeless Tobacco: Never Used Drinks/Week oz/Week Comments Alcohol Use Not Currently Sex Assigned at Date Recorded Not on file Date Recorded COVID-19 Exposure Response 03/31/2020 7:59 AM EST In the last month, have you been in contact with No / Unsure someone who was confirmed or suspected to have Coronavirus / COVID-19? documented as of this encounter Last Filed Vital Signs Reading Time Taken Comments Vital Sign 103/75 03/31/2020 9:01 AM EST Blood Pressure 131 03/31/2020 9:01 AM EST inf RN vahid Pulse 36.7 C (98 F) 03/31/2020 9:01 AM EST Temperature 16 03/31/2020 9:01 AM EST Respiratory Rate 98% 03/31/2020 9:01 AM EST ra Oxygen Saturation - - Inhaled Oxygen Concentration 72.9 kg (160 lb 12.8 oz) 03/31/2020 8:21 AM EST Weight - - Height 30.4 03/17/2020 6:30 AM EST Body Mass Index documented in this encounter Progress Notes * Kameron Rios MD - 03/31/2020 8:15 AM EST I saw and evaluated the patient. I have reviewed the notes, assessments, and/or procedures performed by physician vertical lathe operator, I concur with her/his documentation of Sugey Garvey with metastatic small cell lung cancer W will restart Cispla tin and Etoposide. * Filemon Cooper PA - 03/31/2020 8:15 AM EST Subjective: Patient ID: Sugey Garvey is a 54 y.o. 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 HPI: Annettehas a past medical history of Arthritis, Cancer, Diabetes mellitu s, DVT of upper extremity (deep vein thrombosis) (2017), Hypertension, and Thyro id disease. Ton Small cell lung cancer and Encounter for palliative care on their problem list. Ton a past surgical history that includes Tubal ligation (1996). Herfamily history includes Diabetes in her father and mother; Hypertension i n her brother, father, mother, and sister. Sugeyreports that she quit smoking about 5 months ago. Her smoking use included cigarettes. She has a 20.00 pack-year smoking history. She has never u sed smokeless tobacco. She reports previous alcohol use. She reports that she do es not use drugs. Ton a current medication list which includes the following prescripti on(s): allopurinol, aspirin, atorvastatin, glucosamine hcl, levothyroxine, levot hyroxine, lisinopril, loratadine, memantine, metformin, metformin, metoprolol, m ultivitamin, vitamin d3, dexamethasone, and memantine. Current Outpatient Medications on File Prior to Visit Medication Sig Dispense Refill Allopurinol 300 MG Oral Tablet (ZYLOPRIM) Take 1 tablet by mouth daily 30 tablet 11 Aspirin 81 MG Oral Tablet Take 81 mg by mouth daily Atorvastatin Calcium 40 MG Oral Tablet (LIPITOR) Take 1 tablet by mouth e very evening 30 tablet 11 Glucosamine HCl (GLUCOSAMINE PO) Take 1 tablet by mouth Two Times Daily Lisinopril 10 MG Oral Tablet (PRINIVIL,ZESTRIL) Take 1 tablet by mouth ev elias evening 30 tablet 11 Loratadine 10 MG Oral Tablet (CLARITIN) Take 1 tablet by mouth daily 30 t ablet 0 Memantine HCl 28 x 5 MG & 21 x 10 MG Oral Tablet (NAMENDA TITRATION PACK) 5 mg/day for =1 week; 5 mg twice daily for =1 week; 15 mg/day given in 5 mg and 10 mg doses for =1 week; then 10 mg twice daily 49 tablet 0 metFORMIN HCl 1000 MG Oral Tablet (GLUCOPHAGE) Take 1,000 mg by mouth nig htly metFORMIN HCl 1000 MG Oral Tablet (GLUCOPHAGE) Take 1,000 mg by mouth claudette ry morning Metoprolol Tartrate 50 MG Oral Tablet (LOPRESSOR) Take 1 tablet by mouth Two Times Daily 60 tablet 11 Tab-A-William/Beta Carotene Oral Tablet Take 1 tablet by mouth daily Vitamin D3 25 MCG (1000 UT) Oral Tablet (CHOLECALCIFEROL) Take 2 tablets by mouth nightly 60 tablet 11 [DISCONTINUED] Levothyroxine Sodium 25 MCG Oral Tablet (SYNTHROID) Take 2 5 mcg by mouth Daily [DISCONTINUED] Levothyroxine Sodium 50 MCG Oral Tablet (SYNTHROID) Take 5 0 mcg by mouth Daily Dexamethasone 2 MG Oral Tablet (DECADRON) Take 1 tablet by mouth See Admi n Instructions Take one pill two times a day for 3 days, then one pill once a da y for 3 days. (Patient not taking: Reported on 10/23/2019) 9 tablet 0 Memantine HCl 10 MG Oral Tablet (NAMENDA) Take 1 tablet by mouth Two Time s Daily (Patient not taking: Reported on 11/13/2019) 60 tablet 4 No current facility-administered medications on file prior to visit. Sugeyis allergic to pollen extract. Interim History: Patient here to restart Cisplatin and Etoposide after telemed with Dr Rios. Nitish jones needed to balance continuing treatment vs other option considering the pro gression of the disease. Patient had Gamma knife procedure last week for 12 nodu les with a concern for a numb lower lip. Patient does report feeling stronger re cently with a better ability to walk longer distances daily. Patient did state t hat she in concerned about the side effects from the current treatment and may d ecide to stop if the side effects are too much Review of Systems Constitutional: Negative for activity change, appetite change, chills, diaphores is, fatigue and fever. HENT: Negative. Eyes: Negative. Respiratory: Negative for cough, choking, chest tightness and shortness of breat h. Cardiovascular: Negative for chest pain. Gastrointestinal: Negative for abdominal pain, anal bleeding, constipation, diar berenice, nausea and vomiting. Endocrine: Negative. Genitourinary: Negative. Musculoskeletal: Negative for arthralgias and back pain. Skin: Negative for pallor and rash. Allergic/Immunologic: Negative. Neurological: Positive for numbness. Negative for dizziness, weakness, light-hea dedness and headaches. Lip numbness post gamma knife Hematological: Negative. Psychiatric/Behavioral: Negative. Objective: Physical Exam Constitutional: General: She is not in acute distress. Appearance: She is not toxic-appearing. HENT: Head: Normocephalic and atraumatic. Cardiovascular: Rate and Rhythm: Regular rhythm. Tachycardia present. Pulses: Normal pulses. Heart sounds: Normal heart sounds. No murmur. Pulmonary: Effort: Pulmonary effort is normal. No respiratory distress. Breath sounds: Normal breath sounds. No wheezing. Abdominal: General: Bowel sounds are normal. Tenderness: There is no abdominal tenderness. There is no guarding. Musculoskeletal: Normal range of motion. Skin: General: Skin is warm and dry. Coloration: Skin is not jaundiced or pale. Findings: No bruising. Neurological: General: No focal deficit present. Mental Status: She is alert. Mental status is at baseline. Psychiatric: Mood and Affect: Mood normal. Behavior: Behavior normal. Assessment: Sugey Wells a 54 y.o.femalewith stage IV small cell lung can cer metastatic to the mediastinum brain and bone. Patient here to restart Cisplatin and Etoposide after telemed with Dr Rios. Patient needed to balance continuing treatment vs other option considering the p rogression of the disease. Patient had Gamma knife procedure last week for 12 no dules with a concern for a numb lower lip. Patient does report feeling stronger recently with a better ability to walk longer distances daily. Patient did state that she in concerned about the side effects from the current treatment and may decide to stop if the side effects are too much. Patient to receive cisplatin a nd etoposide today with oral decadron and etoposide on days 2 &3 with return in 3 weeks for next treatment with ov, labs with dr Rios Plan: I did notify if the patient develops any problems or issues prior to return, the patient should feel free to give our office a call immediately 24 hours a day. Pt confirms having number to the and having [employer] account. Certain parts of this note may have been carried over from prior Hematology/Onco logy notes to maintain accuracy of patient's pertinent medical history and naa nuity of care. The details were verified and edited as appropriate. Patient was seen and discussed with Filemon Baker-C Hematology/Oncology Department documented in this encounter Plan of Treatment Care Team Description Date Type Specialty Chuy Ferguson MD [address] [facility] [place] [id number] 04/16/2020 Telemedicine Neurosurgery Corey Moore MD [address], [place] [id number] 04/20/2020 Telemedicine Radiation Oncology Filemon Cooper PA [address] [facility] [place] [address] 04/21/2020 Office Visit Hematology and Onco logy Order Schedule Name Type Priority Associated Diag noses 1 Occurrences starting 03/31/2020 until 09/28/2020 CBC and differential Lab STAT 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 1 Occurrences starting 03/31/2020 until 09/28/2020 Comprehensive Metabolic Lab Routine Second connor malignant Panel neoplasm of brain and spinal cord Small cell lung cancer 1 Occurrences starting 03/31/2020 until 09/28/2020 Magnesium Lab STAT Secondary malig nant neoplasm of brain and spinal cord Small cell lung cancer Health Maintenance Due Date Last Done Comments [...] this topic documented as of this encounter Procedures Comments Procedure Name Priority Date/Time Associated Diag nosis CBC AND DIFFERENTIAL Routine 03/31/2020 Secondary malignant 8:14 AM EST neoplasm of brain and spinal cord Small cell lung cancer MAGNESIUM LEVEL STAT 03/31/2020 Secondary todd gnant 8:14 AM EST neoplasm of brain and spinal cord Small cell lung cancer COMPREHENSIVE METABOLIC STAT 03/31/2020 Second connor malignant PANEL 8:14 AM EST neoplasm of brain a nd spinal cord Small cell lung cancer documented in this encounter Results * Magnesium (03/31/2020 8:14 AM EST) Magnesium 1.5 (L) 1.6 - 2.6 mg/dL [facility] Clin Pathology Specimen Plasma Performing Organization Address City/[facility] Ph one Number [facility] [address] [place], [place] [address] PATHOLOGY [facility] [address] [place], [place] [address] Clin Pathology * Comprehensive metabolic panel (03/31/2020 8:14 AM EST) Albumin 3.8 3.5 - 5.2 g/dL [facility] Clin Pathology Bilirubin, 0.3 <1.2 mg/dL [facility] Clin Pathology Calcium 10.8 (H) 8.6 - 10.0 mg/dL [facility] Clin Pathology Chloride 101 98 - 107 mmol/L [facility] Clin Pathology Creatinine 1.20 (H) 0.50 - 0.90 mg/dL [facility] Clin Pathology Glucose 147 (H) 70 - 140 mg/dL [facility] Clin Pathology Alkaline 127 (H) 35 - 104 U/L [facility] Clin Pathology Potassium 3.8 3.4 - 5.1 mmol/L [facility] Clin Pathology Total Protein 6.3 (L) 6.4 - 8.3 g/dL [facility] Clin Pathology Sodium 139 136 - 145 mmol/L [facility] Clin Pathology AST/SGO 45 (H) <32 U/L [facility] Clin Pathology Blood Urea 10 6 - 20 mg/dL [facility] Clin Pathology Osmolality, Figu[place] 289 275 - 300 mosm/kg [facility] BUN/Cre Ratio 8 [facility] Clin Pathology Bicarbonate 25 22 - 29 mmol/L [facility] Clin Pathology ALT/SGP 34 (H) <33 U/L [facility] Clin Pathology Anion Gap 14 8 - 15 mmol/L [facility] Clin Pathology GFR Non 51 (L) >60 mL/min/1.73m2 [facility] 2008 Med Univ Clin CDK-EPI Pathology GFR 59 (L) >60 mL/min/1.73m2 [facility] 2008 Med [facility] Clin CKD-EPI Pathology Specimen Plasma Performing Organization Address City/State/[facility] Ph one Number [facility] [address] [place], [place] [address] PATHOLOGY [facility] [address] [place], [place] [address] Clin Pathology * CBC and differential (03/31/2020 8:14 AM EST) White Blood 10.1 (H) 4 - 10 10*3/uL [facility] Clin Pathology Red Blood Cell 3.12 (L) 4.1 - 5.3 10*6/uL [facility] Clin Pathology Hemoglobin 11.0 (L) 11.5 - 15.5 g/dL [facility] Clin Pathology Hematocrit 33.2 (L) 36 - 45 % [facility] Clin Pathology Mean Cell 106.3 (H) 80 - 96 fL [facility] Volume [facility] Clin Pathology Mean Cell 35.3 (H) 27 - 33 pg [facility] Clin Pathology Mean Cell Hgb 33.2 32.0 - 36.0 g/dL [facility] Clin Pathology Red Cell Dist 16.4 (H) 11.5 - 14.5 % [facility] Width [facility] Clin Pathology Platelet Count 169 150 - 400 10*3/uL [facility] Clin Pathology Differential Automated Diff [facility] Type Med Univ Clin Pathology Neutrophil 82 % [facility] Clin Pathology Lymphocyte 10 % [facility] Clin Pathology Monocyte 8 % [facility] Clin Pathology Eosinophil 0 % [facility] Clin Pathology Basophil 0 % [facility] Clin Pathology Abs Neutrophil 8.26 (H) 1.8 - 7.0 10*3/uL [facility] Clin Pathology Abs Lymphocyte 0.97 (L) 1.2 - 4.0 10*3/uL [facility] Clin Pathology Abs Monocyte 0.78 0 - 0.8 10*3/uL [facility] Clin Pathology Abs Eosinophil 0.01 0 - 0.5 10*3/uL [facility] Clin Pathology Abs Basophil 0.04 0 - 0.2 10*3/uL [facility] Clin Pathology Nucleated Red 0 0 - 0 /100{WBCs} [facility] Blood Cells [facility] Clin Pathology Specimen EDTA Whole Blood Performing Organization Address City/State/[facility] Ph one Number [facility] [address] [place], [place] [address] PATHOLOGY [facility] [address] [place], [place] [address] Clin Pathology documented in this encounter Visit Diagnoses Diagnosis Secondary malignant neoplasm of brain a nd spinal cord - Primary Small cell lung cancer Malignant neoplasm of bronchus and lung , unspecified site documented in this encounter Administered Medications Action Date Dose Rate Site Medication Order MAR Action 03/31/2020 11:31 AM EST 106 mg 500 mL/hr CISplatin (PLATINOL) 106 mg in sodium New Bag chloride 0.9 % 500 mL (0.212 mg/mL) chemo infusion 106 mg (rounded from 105.6 mg = 60 mg/m 2 1.76 m2 Treatment plan recorded BSA), Intravenous, Administer over 60 Minutes , Once, Sun03/31/20 at 1145, For 1 dose 03/31/2020 9:41 AM EST 8 mg dexamethasone (DECADRON) tablet 8 mg Given 8 mg, Oral, Once, Sun03/31/20 at 0945, For 1 dose, Give prior to chemotherapy. , 03/31/2020 12:41 PM EST 140 mg 500 mL/hr etoposide (VEPESID) 140 mg in sodium New Bag chloride 0.9 % 500 mL chemo infusion 140 mg (rounded from 140.8 mg = 80 mg/m 2 1.76 m2 Treatment plan recorded BSA), Intravenous, Administer over 60 Minutes , Once, Sun03/31/20 at 1245, For 1 dose, Monitor for hypotension.Infuse through a 0.22 micron filter., 03/31/2020 10:47 AM EST 150 mg 450 mL/hr fosaprepitant dimeglumine (EMEND) 150 mg New Bag in sodium chloride 0.9 % 150 mL infusio n 150 mg, Intravenous, Once, Sun03/31/20 a t 0945, For 1 dose, Give 30 minutes befor e chemotherapy over 20-30 minutes., 03/31/2020 9:41 AM EST 0.5 mg LORazepam (ATIVAN) tablet 0.5 mg Given 0.5 mg, Oral, Once, Sun03/31/20 at 0945, For 1 dose, Give prior to chemotherapy, 03/31/2020 2:19 PM EST 400 mg Magnesium Oxide (MAG-OX) tablet 400 mg Given 400 mg, Oral, Once, Sun03/31/20 at 1415, For 1 dose 03/31/2020 9:41 AM EST 50 mg metoprolol (LOPRESSOR) tablet 50 mg Given 50 mg, Oral, Once, Sun03/31/20 at 0845, For 1 dose 03/31/2020 9:41 AM EST 16 mg ondansetron (ZOFRAN) tablet 16 mg Given 16 mg, Oral, Once, Sun03/31/20 at 0945, For 1 dose, Give prior to chemotherapy, 03/31/2020 2:18 PM EST 20 mEq potassium chloride (K-DUR) dissolvable Given tablet 20 mEq 20 mEq, Oral, Once, Sun03/31/20 at 1415, For 1 dose, May be dissolved in water for patients with a G-Tube or unable to swallow. If concern for clogging G-Tube , may contact Pharmacy to switch formulation to a powder packet., 03/31/2020 9:40 AM EST 500 mL/hr sodium chloride 0.9 % 1,000 mL bolus New Bag Intravenous, at 500 mL/hr, Once, Sun03/31/20 at 0945, For 1 dose, Infuse at 500 mL/hr until urine parameters are met. If after 1000 mL infused and urin e parameters are not met, contact ., documented in this encounter
--- OUTSIDE RECORDS SUMMARY | 2020-04-12 15:06 | CCD | Summary of Care ---
Author Author [facility] Organization [facility] Address Unknown Phone Unavailable Care Team Providers Care Transmission Maintenance Supervisor Name Role Phone Yeny Joiner PCP Unavailable Reason for Referral * Diagnostic Radiology (Routine) Referred By Contact Referred To Contact Status Reason Specialty Diagnoses / Procedures Kameron Rios MD [address] [place] [address] Email: [email or web address] Open Radiology Diagnoses Small cell lung cancer P rocedures CT Abdomen Pelvis with Contrast * Diagnostic Radiology (Routine) Referred By Contact Referred To Contact Status Reason Specialty Diagnoses / Procedures Kameron Rios MD [address] [place] [address] Email: [email or web address] Open Radiology Diagnoses Small cell lung cancer P rocedures CT Thorax with Contrast Reason for Visit * Reason Comments Follow-up Encounter Details Care Team Description Date Type Department Kameron Rios MD [address] [place] [address] [phone] Small cell lung cancer (Primary Dx) 02/26/2020 Telemedicine Hematology Oncology [address] [place] [id number] Allergies Comments Active Allergy Reactions Severity Noted Date Pollen Extract Other (See 05/16/2019 Comments) documented as of this encounter (statuses as of 03/06/2020) Medications End Date Status Medication Sig Dispensed [...] HCl (ZOFRAN Take by mouth 0 PO) documented as of this encounter (statuses as of 03/06/2020) Active Problems Problem Noted Date Encounter for palliative care 07/23/2019 Overview: Symptoms limited at postchemo nausea, n o longer depressed. Advised to bring back HCP form as we have only second pa ge scanned in Epic. Has her with her son as alternate designated as HCP. Handed full set of advance directives for review. Small cell lung cancer 05/16/2019 Cancer Staging: Clinical stage from 08/27: Stage IVB (cT0, cN2, cM1c) - Signed by Corey Moore MD on 09/29/2019 documented as of this encounter (statuses as of 03/06/2020) Social History Date Tobacco Use Types Packs/Day [...] of this encounter Last Filed Vital Signs Not on filedocumented in this encounter Progress Notes * Kameron Rios MD - 02/26/2020 12:15 PM EST Subjective: Patient ID: Sugey Garvey is a 54 y.o. female who was diagnosed with metast atic small cell lung carcinoma in 05/2019 She presented with a 0.7 cm brin lesion as her only site of metastatic disease. She did have a cytology negative perica rdial effusion and bulky mediastinal adenopathy. She had a pericardial window p laced. Because she was asymptomatic, Radiatio Oncology elected to observe the lesion in the brain. She was treated with Cisplatin and etoposide. Carboplatin was not used because she lived a considerable distance away and her insurance w ould not authorize growth factor support. A subsequent PET/CT scan after one inp atient cycle showed metastatic disease to the lumbar spine and left acetabulum. Hence,rather then get concomitant radiation to the chest, she was continued on systemic treatment with the Cisplatin and etoposide with the addition of Tecentr ig. Durvalumumab was not considered because her insurance would not authorize it . The patient's disease including her brain lesion responded to 4 cycles of the above, which were last given in 06/2019. and she was continued on maintenance Tecentrig. She did develop hypothyroidism requiring henry pplementation with Synthroid. She developed progressive brain lesions on 09/15/19 , which were treated with radiation therapy. Because she did not have any other signs of progression, she was continued on Tecentrig. Recent scans in 12/2019 s howed progressive disease in the chest and bones and she was treated with radiat ion to the mediastinum and lumbar spine. We recommended restarting systemic Cisp latin and Etoposide but she wanted to think more about that vs a more comfort ca re approach given her overall prognosis. This is a telephonic v isit which was performed without the use of video technology due to patient inab ility to connect with video. The patient was informed of the risks including sec urity breach, technological failure, inability to perform a physical exam which could delay or prevent an accurate diagnosis, and potential complications from t reatment decisions rendered over a telephonic platform. The patient understands and consented to the use of a telephonic visit/telephone call. Time spent on the telephonic visit today: 22 minutes The patient says her back pain has improved. An MRI of the brain on showed increased size and number of metastases. She has opted for gamma knife radiosurgery and that is being scheduled. She has decided that she wishes to pr oceed with systemic therapy. RUBÉN Mayes has a past medical history of Arthritis, Cancer, Diabetes mellitus, DVT of upper extremity (deep vein thrombosis) (2016), Hypertension, and Thyroid dis ease. Sugey has Small cell lung cancer and Encounter for palliative care on their pr oblem list. Sugey has a past surgical history that includes Tubal ligation (1996). Her family history includes Diabetes in her father and mother; Hypertension in h er brother, father, mother, and sister. Sugey reports that she quit smoking about 9 months ago. Her smoking use inclu ded cigarettes. She has a 20.00 pack-year smoking history. She has never used sm okeless tobacco. She reports previous alcohol use. She reports that she does not use drugs. Sugey has a current medication list which includes the following prescription( s): allopurinol, aspirin, atorvastatin, glucosamine hcl, hydrocodone-acetaminoph en, metformin, metoprolol, ondansetron hcl, and multivitamin. Current Outpatient Medications on File Prior to Visit Medication Sig Dispense Refill Allopurinol 300 MG Oral Tablet (ZYLOPRIM) Take 1 tablet by mouth daily 30 tablet 11 Aspirin 81 MG Oral Tablet Take 81 mg by mouth daily Atorvastatin Calcium 40 MG Oral Tablet (LIPITOR) Take 1 tablet by mouth e very evening (Patient taking differently: Take 20 mg by mouth every evening ) 30 tablet 11 Glucosamine HCl (GLUCOSAMINE PO) Take 1 tablet by mouth Two Times Daily HYDROcodone-Acetaminophen 5-325 MG Oral Tablet (LORTAB) Take 1 tablet by mouth every 6 (six) hours as needed for Pain metFORMIN HCl 1000 MG Oral Tablet (GLUCOPHAGE) Take 1,000 mg by mouth nig htly Metoprolol Tartrate 50 MG Oral Tablet (LOPRESSOR) Take 1 tablet by mouth Two Times Daily (Patient taking differently: Take 25 mg by mouth Two Times Daily ) 60 tablet 11 Ondansetron HCl (ZOFRAN PO) Take by mouth Tab-A-William/Beta Carotene Oral Tablet Take 1 tablet by mouth daily No current facility-administered medications on file prior to visit. Sugey is allergic to pollen extract. Review of Systems Constitutional: Positive for fatigue. HENT: Negative. Eyes: Negative. Respiratory: Negative. Cardiovascular: Negative. Gastrointestinal: Nausea is still present but relieved by Zofran. Endocrine: Negative. Genitourinary: Negative. Musculoskeletal: Positive for arthralgias. Skin: Negative. Neurological: Mild MOULTON. Hematological: Negative. Psychiatric/Behavioral: Negative. All other systems reviewed and are negative. Objective: Visit Vitals LMP (LMP Unknown) Labs on show normal CMP except creatinine 1.31. TSH was around 9. Physical Exam No physical exam was performed. Assessment: Patient with progressive metastatic small cell lung cancer. Her prognosis is not good and she has thought long and hard about options. For now she wishes to pro ceed with gamma knife to brain and subsequent chemotherapy, which would start af ter the gamma knife. In the interim we will obtain CT scans of the thorax, abdo men and pelvis. Plan: RTC 03/31/20 for labs OV with Cisplatin and oral Etoposide. documented in this encounter Plan of Treatment Care Team Description Date Type Specialty Jose Wei MD [address], [place] [id number] 03/09/2020 Telemedicine Surgery Chuy Ferguson MD [address] [facility] [address] [facility] [place] [phone] 03/17/2020 Appointment 03/17/2020 Appointment Radiology Kameron Rios MD [address] [place] [address] 03/31/2020 Office Visit Hematology and Onco logy Order Schedule Name Type Priority Associated Diag noses Expected: 02/26/2020, Expires: 2 CT Thorax with Contrast Imaging Routine Small cell lung cancer Expected: 02/26/2020, Expires: 2 CT Abdomen Pelvis with Imaging Routine Small c ell lung cancer Contrast 1 Occurrences starting 02/26/2020 until 08/25/2020 Creatinine with GFR Lab Routine Small cell lung cancer Ordered: 02/26/2020 POCT i-STAT Creatinine Point of Care Routine Small c ell lung cancer Testing-Docked Device Health Maintenance Due Date Last Done Comments MMR Vaccines (1 of 1 - 04/26/1966 Standard series) Varicella Vaccines (1 [...] filedocumented in this encounter Visit Diagnoses Diagnosis Small cell lung cancer - Primary Malignant neoplasm of bronchus and lung , unspecified site documented in this encounter
--- OUTSIDE RECORDS SUMMARY | 2020-04-12 15:06 | CCD ---
Author Author [facility] Organization [facility] Address Unknown Phone Unavailable Care Team Providers Care Manager Core Name Role Phone Yeny Joiner Unavailable PROBLEMS Type Condition ICD9-CM Code HFO43-FT Code Onset Dates Condition S tatus W/U Status Risk SNOMED Code Notes Problem Essential (primary) hypertension I10 Active conf irmed 09701107 Problem Hyperlipemia E78.5 Active confirmed 8450147 4 Problem Hypothyroidism E03.9 Active confirmed 70983 008 Problem Vitamin D deficiency E55.9 Active confirmed 38783357 Problem Primary osteoarthritis of right hip M16.11 Acti ve confirmed 785282454 Problem Psoriasis L40.9 Active confirmed 3073088 Problem Controlled type 2 diabetes m ellitus without complication, without long- term current use of insulin E11.9 Active confirmed 31 8284115 Problem Pure hypercholesterolemia E78.00 Active confirmed 952015199 Problem Cigarette nicotine dependence without complication F17.210 Active confirmed 84126716 Problem Enlarged thyroid E04.9 Active confirmed 371 6002 Problem Oropharyngeal dysphagia R13.12 Active confirmed 45428538 Problem Primary malignant neoplasm o f lung metastatic to other site, unspecified laterality C34.90 Active confirmed 66892884 Problem Acute deep vein thrombosis ( DVT) of upper extremity, unspecified laterality, unspecified vein I82.629 Active confirmed 1 37033742076250 Problem 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 Activ e confirmed 65059910 Problem 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.218 Active confirmed 80610128220095002 Problem Small cell lung cancer C34.90 Active confirmed 178964692 Problem Brain mass G93.89 Active confirmed 268538813 ALLERGIES No Known Allergies ENCOUNTERS from 1965 to 2020-04-09 Encounter Location Date Provider Diagnosis [facility] [place] [address] [place] [address] Mar, Reg lin Marisel IMMUNIZATIONS No Information SOCIAL HISTORY Tobacco Use: [...] REASON FOR REFERRAL No Information VITAL SIGNS No information MEDICATIONS Medication SIG (Take, Route, Frequency, Duration) Notes Start Da te End Date Status Aleve 220 MG 1 capsule with food or milk as needed Orally every 12 hrs for 7 day(s) Mar, Not-Taking Ventolin HFA 108 (90 Base) MCG/ACT 1 puff as needed In halation every 4 hrs as needed for SOB for 30 days Jan, Activ e [place] 5-325 MG 1 tablet as needed Orally every 6 hrs Active Iocjyj-Hemlmeama-QMO Complex OTC 2 tablet Orally Once a [...] EVERY DAY orally once daily Not-Taking Cortisporin 3.5-39340-0 4 drops into affected ear Ot ic [...] Information RESULTS No Results REASON FOR VISIT lisinopril MEDICAL (GENERAL) HISTORY Type Description Date Medical History small cell lung cancer with brain mets diagnosed 04/2019, comp fx suspected spinal mets - Following with Oncology in [place] Medical History HTN Medical History DM Type [...] No Information FUNCTIONAL STATUS No Information ASSESSMENTS No Information PLAN OF TREATMENT Medication Medication Name Sig [...] 1 tablet Orally Once a day Dec, Insurance Providers Payer Name Payer Address Payer Phone Insured Name Patient Relati onship to Insured Coverage Start Date Coverage End Date [employer] DE[employer] [address] [facility] [phone] [place] self
--- OUTSIDE RECORDS SUMMARY | 2020-04-12 15:07 | CCD ---
Author Author [facility] Organization [facility] Address Unknown Phone Unavailable Care Team Providers Care Actor Understudy Name Role Phone Yeny Joiner Unavailable PROBLEMS Type Condition ICD9-CM Code HRQ81-CC Code Onset Dates Condition S tatus SNOMED Code Notes Problem Essential (primary) hypertension I10 Active 14993415 Problem Hyperlipemia E78.5 Active 57038787 Problem Hypothyroidism E03.9 Active 02062917 Problem Vitamin D deficiency E55.9 Active 01370344 Problem Primary osteoarthritis of right hip M16.11 Acti ve 201798139 Problem Psoriasis L40.9 Active 4257553 Problem Controlled type 2 diabetes m ellitus without complication, without long- term current use of insulin E11.9 Active 80166153 4 Problem Pure hypercholesterolemia E78.00 Active 818077 004 Problem Cigarette nicotine dependence without complication F17.210 Active 64497425 Problem Enlarged thyroid E04.9 Active 4581647 Problem Oropharyngeal dysphagia R13.12 Active 00545551 Problem Primary malignant neoplasm o f lung metastatic to other site, unspecified laterality C34.90 Active 93023822 Problem Acute deep vein thrombosis ( DVT) of upper extremity, unspecified laterality, unspecified vein I82.629 Active 6821792 03839673 Problem 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 Activ e 63548096 Problem 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.218 Active 98204681308644538 Problem Small cell lung cancer C34.90 Active 375033858 Problem Brain mass G93.89 Active 766260211 ALLERGIES No Known Allergies ENCOUNTERS from 1965 to 2020-01-31 Encounter Location Date Provider Diagnosis [facility] [address] [place] [address] Jan, Reg lin Joiner Chronic swimmer's ear of right side H60.331 ; DOWELL (dyspnea on exertion) R06.00 ; Hypothyroidism E03.9 and Primary malignant neoplasm of lung metastatic to other site, unspecified laterality C34.90 IMMUNIZATIONS No Information SOCIAL HISTORY Tobacco Use: [...] FOR REFERRAL No Information VITAL SIGNS Weight 164 lbs Jan, Height 63 in Jan, BMI 29.05 kg/m2 Jan, Heart Rate 103 /min Jan, Respiratory Rate 18 /min Jan, Temperature 99.6 degrees Fahrenheit Jan, Oximetry 99 Jan, Blood pressure systolic 120 mm Hg Jan, Blood pressure diastolic 72 mm Hg Jan, MEDICATIONS Medication SIG (Take, Route, Frequency, Duration) Notes Start Da te End Date Status Aspirin 81 MG 1 tablet Orally Once a day Dec, Active Levothyroxine Sodium 125 MCG 1 tablet in the morning o n an empty stomach Orally Once a day Active Atorvastatin Calcium 20 MG 1 tablet Orally Once a day for 30 day (s) Dec, Active Vitamin D (Cholecalciferol) 2000 1 tablet Orally Once a day Apr, Active Metoprolol Tartrate 50 MG 1 tablet Orally Twice a day for 30 Active Blood Pressure Kit - as directed _ Dx: I10 for 90 days Apr, Active Cortisporin 3.5-20136-7 4 drops into affected ear Ot ic Three times a day for 10 day(s) Jan, Active Glucometer as directed Dx E11.21 Daily for 30 days Dec, Active Metformin HCl 1000 MG 1 tablet with a meal orally twice daily for 30 Active [place] 5-325 MG 1 tablet as needed Orally every 6 hrs Active Clobetasol Propionate E 0.05 % 1 application Externall y Twice a day to rash on thigh for 10 day(s) Dec, Active Allopurinol 300 MG 1 tablet Orally Once a day for 30 day(s) June, Active Lisinopril 10 MG TAKE ONE TABLET BY MOUTH EVERY DAY orally once daily Not-Taking Uesnnr-Tmqxqvmmy-BSG Complex OTC 2 tablet Orally Once a day Active Aleve 220 MG 1 capsule with food or milk as needed Orally every 12 hrs for 7 day(s) Mar, Not-Taking Ventolin HFA 108 (90 Base) MCG/ACT 1 puff as needed In halation every 4 hrs as needed for SOB for 30 days Jan, Activ e Memantine HCl 10 MG TAKE ONE TABLET BY MOUTH TWO TIMES A DAY Oral bid Active Blood Glucose Test - as directed In Vitro Dx: E11.21 Daily for 3 0 days Dec, Active Lancets - as directed Dx: E11.21 Daily for 30 days Dec Active Multivitamins OTC 1 tablet Orally Once a day Active PROCEDURES No Information RESULTS No Results REASON FOR VISIT 6 week lab follow up MEDICAL (GENERAL) HISTORY Type Description Date Medical History small cell lung cancer with brain mets diagnosed 04/2019, comp fx suspected spinal mets - Following with Oncology in [place] Medical History HTN Medical History DM Type [...] Notes Treatment Notes Treatm ent Clinical Notes Jan, Chronic swimmer's ear of right side (ICD-10 - H6 0.331) Has kira using Debrox but not working. Declines irrigation b/c she has tendency toward swimmer's ear if water in ear. Has been treated with Cortisporin in past for ear discomfort like she is experiencing now. Jan, DOWELL (dyspnea on exertion) (ICD-10 - R06.00) Has noticed increased DOWELL with wheezing when she walks long distances - worsening lately. May have some underlying smoking induced lung disease. No CP with exertion. Mild anemia on recent labs Jan, Hypothyroidism (ICD-10 - E03.9) Jan, Primary malignant neoplasm o f lung metastatic to other site, unspecified laterality (ICD-10 - C34.90) Await appt ei Oncology later this month to further discuss treatment options. She has also been referred tot he wellness specialist who can hopefully help alleviate her nausea and manage pain if needed PLAN OF TREATMENT Medication Medication Name Sig Start Date Stop Date Cortisporin 3.5-90000-5 4 drops into affected ear Ot ic Three times a day for 10 day(s) Jan, Ventolin HFA 108 (90 Base) MCG/ACT 1 puff as needed In halation every 4 hrs as needed for SOB for 30 days Jan, Treatment Notes Assessment Notes Clinical Notes Chronic swimmer's ear of right side Has kira using Debrox but not working. Declines irrigation b/c she has tendency toward swimmer's ear if water in ear. Has been treated with Cortisporin in past for ear discomfort like she is experie ncing now. DOWELL (dyspnea on exertion) Has noticed in creased DOWELL with wheezing when she walks long distances - worsening lately. May have some underlying smoking induced lung disease. No CP with exertion. Mild anemia on recent labs Primary malignant neoplasm of lung metas tatic to other site, unspecified laterality Await appt [facility] Oncology lat er this month to further discuss treatment options. She has also been referred tot he wellness specialist who can hopefully help alleviate her nausea and manage pain if needed Next Appt February Reason: Provider Name:Yeny Joiner, 2020-02 11:30:00 AM, [address], [place], [address], Insurance Providers Payer Name Payer Address Payer Phone Insured Name Patient Relati onship to Insured Coverage Start Date Coverage End Date [employer] DEPT [address] [facility] [phone] ALEXA [place]OM[place] self
--- OUTSIDE RECORDS SUMMARY | 2020-04-12 15:07 | CCD | Summary of Care ---
Author Author [facility] Organization [facility] Address Unknown Phone Unavailable Care Team Providers Care Ward Secretary Name Role Phone Yeny Joiner PCP Unavailable Reason for Referral * Diagnostic Radiology (Routine) Referred By Contact Referred To Contact Status Reason Specialty Diagnoses / Procedures Pavan Redmond NP [address] [place] [address] Email: [email or web address] Open Radiology Diagnoses Closed fracture of first lumbar vertebra, unspecified fracture morphology, initial encounter P rocedures MR Lumbar Spine without Contrast Reason for Visit * Reason Comments New Patient Spine fx, recently seen dur ing Chemo tx. Encounter Details Care Team Description Date Type Department Pavan Redmond NP [address] [place] [address] Closed fracture of first lumbar vertebra , unspecified fracture morphology, initial encounter (Primary Dx) 01/26/2020 Office Visit [facility] , [facility] [address] [place] [address] [place] [phone] Allergies Comments Active Allergy Reactions Severity Noted Date Pollen Extract Other (See 05/16/2019 Comments) documented as of this encounter (statuses as of 01/26/2020) Medications End Date Status Medication Sig Dispensed [...] Take 81 mg by 0 mouth daily 02/13/2020 Active Memantine HCl 10 MG Oral Take 1 tablet 60 tablet 4 Tablet (NAMENDA) by mouth Two 0 Times Daily Active HYDROcodone-Acetaminophen Take 1 tablet 0 5-325 MG Oral Tablet by mouth (LORTAB) every 6 (six) hours as needed for Pain 01/26/2020 Discontinued (Error) Lisinopril 10 MG Oral Take 1 tablet 30 tablet 11 Tablet (PRINIVIL,ZESTRIL) by mouth 0 every evening 01/26/2020 Discontinued (Medication Rec oncilation) Vitamin D3 25 MCG (1000 Take 2 60 tablet UT) Oral Tablet tablets by 0 (CHOLECALCIFEROL) mouth nightly 01/26/2020 Discontinued (Medication Rec oncilation) metFORMIN HCl 1000 MG Take 1,000 mg 0 Oral Tablet (GLUCOPHAGE) by mouth every morning 01/26/2020 Discontinued (Error) Loratadine 10 MG Oral Take 1 tablet 30 tablet 0 Tablet (CLARITIN) by mouth 0 daily 01/26/2020 Discontinued (Medication Rec oncilation) Memantine HCl 28 x 5 MG & 5 mg/day for 49 tablet 0 21 x 10 MG Oral Tablet =1 week; 5 mg 0 (NAMENDA TITRATION PACK) twice daily for =1 week; 15 mg/day given in 5 mg and 10 mg doses for =1 week; then 10 mg twice daily 01/26/2020 Discontinued (Medication Rec oncilation) Dexamethasone 2 MG Oral Take 1 tablet 9 tablet 0 Tablet (DECADRON) by mouth See 0 Admin Instructions Take one pill two times a day for 3 days, then one pill once a day for 3 days. 01/26/2020 Discontinued (Medication Rec oncilation) HYDROcodone-Acetaminophen Take 1 tablet 30 tablet 0 5-325 MG Oral Tablet by mouth 0 (LORTAB) every 4 (four) hours as needed for Pain, Max Daily Dose: 6 tablets documented as of this encounter (statuses as of 01/26/2020) Active Problems Problem Noted Date Encounter for palliative care 07/23/2019 Overview: Symptoms limited at postchemo nausea, n o longer depressed. Advised to bring back HCP form as we have only second pa ge scanned in [facility]. Has her with her son as alternate designated as HCP. Handed full set of advance directives for review. Small cell lung cancer 05/16/2019 Cancer Staging: Clinical stage from 08/27: Stage IVB (cT0, cN2, cM1c) - Signed by Corey Moore MD on 09/29/2019 documented as of this encounter (statuses as of 01/26/2020) Social History Date Tobacco Use Types Packs/Day Years Used Quit: 05/16/2019 Former Smoker Cigarettes 0.5 40 Smokeless Tobacco: Never Used Drinks/Week oz/Week Comments Alcohol Use Not Currently Sex Assigned at Date Recorded Not on file Date Recorded COVID-19 Exposure Response 01/26/2020 12:44 PM EST In the last month, have you been in contact with No / Unsure someone who was confirmed or suspected to have Coronavirus / COVID-19? documented as of this encounter Last Filed Vital Signs Reading Time Taken Comments Vital Sign - - Blood Pressure 110 01/26/2020 1:23 PM EST Pulse - - Temperature - - Respiratory Rate - - Oxygen Saturation - - Inhaled Oxygen Concentration 73.5 kg (162 lb) 01/26/2020 1:23 PM EST Weight 154.9 cm (5' 1") 01/26/2020 1:23 PM EST Height 30.61 01/26/2020 1:23 PM EST Body Mass Index documented in this encounter Progress Notes * Pavan Redmond NP - 01/26/2020 1:[address] Scanlon CHIEF COMPLAINT : Chief Complaint Patient presents with New Patient Spine fx, recently seen during Chemo tx. HISTORY OF PRESENT ILLNESS: Sugey is a pleasent 54 y.o. female who presents today for evaluation of low b ack pain and diagnosis of L1 fracture. Patient is being referred to us for eval uation of an L1 vertebral body fracture. She states that this likely happened a pproximately 3 weeks ago. She denies any particular injury. She states that sh mike did not fall or have any other kind of trauma. She does however state that sh mike does have a long history of cancer with multiple mets. She stated that the fr acture was identified on one of her more recent imaging studies. She was referr ed here for further evaluation. Patient states that she is having some minor di scomfort at this time radiating down into her right hip but other than that she does not have any significant discomfort. She states that she was given hydroco done and she will use this intermittently for her discomfort. She denies any nu mbness tingling or pain rating into her lower extremities. She denies any issue s with balance, bowel or bladder. Past medical history, allergies, medications, social history, and review of syst ems are in the medical history form that I have reviewed with her All pertinent positives and negatives and the review of systems are indicated ab ove. All other review of systems are negative. Past Medical History: Diagnosis Date Arthritis Cancer newly diagnosed, lung, brain,bladder Diabetes mellitus DVT of upper extremity (deep vein thrombosis) 2017 Hypertension Thyroid disease Past Surgical History: Procedure Laterality Date TUBAL LIGATION 1996 Social History Tobacco Use Smoking Status Former Smoker Packs/day: 0.50 Years: 40.00 Pack years: 20.00 Types: Cigarettes Quit date: 05/16/2019 Years since quittin.6 Smokeless Tobacco Never Used reports that she quit smoking about 8 months ago. Her smoking use included ciga rettes. She has a 20.00 pack-year smoking history. She has never used smokeless tobacco. She reports previous alcohol use. She reports that she does not use jose daniel gs. PHYSICAL EXAMINATION Vital Signs: Visit Vitals Pulse (!) 110 Ht 1.549 m (5' 1") Wt 73.5 kg (162 lb) LMP (LMP Unknown) BMI 30.61 kg/m , BMI :Body mass index is 30.61 kg/m. General : She is well groomed Mood/Affect: normal Orientation: alert oriented x 4 Gait : Patient does not have difficulty transitioning from sitting to standing, walks with a antalgic, nonmyelopathic gait Tenderness to palpation: does have pain on palpation over bilateral lumbar patrice pinals and midline spine. ROM: Deferred at this time Special test: Denies pain with passive range of motion of bilateral hips. Musculoskeletal Exam: No visual deformity swelling, effusion, or erythema of shashank ateral shoulders, elbows, wrists, hips, knees, and ankles and full AROM without discomfort or crepitus. No joint tenderness on palpation. Motor/ Sensory Examination On sensory examination: In tact to light touch throughout all dermatomes of bila teral lower extremities On motor examination : Upper Extremity Right Left Deltoid Biceps Triceps Wrist Extensor Wrist Flexor Log Rider Intrinsics Lower Extremity Iliopsoas 5 5 Quadriceps 5 5 Hamstrings 5 5 Tibialis anterior 5 5 EHL 5 5 Gastroc 5 5 Peroneals 5 5 IMAGING: X-rays of her lumbar spine were reviewed with the patient. Vertebral body heigh ts are well-maintained. There is questionable lesion noted at the L1 vertebral body. No instability noted with flexion or extension. CT of her abdomen was reviewed with the patient. Noted for destructive L1 lesio n. There is soft tissue mass extending into the neural canal. ASSESSMENT: 1. Closed fracture of first lumbar vertebra, unspecified fracture morphology, in itial encounter MR Lumbar Spine without Contrast PLAN: We have reviewed Sugey Earlene WestfallGuru symptoms, physical exam findings, imaging uriel dies and treatment to date. We have reviewed treatment options to include the e of physical therapy, NSAIDs and the possibility of injections. Our attempts will be to try to maximize conservative care. At this time I have ordered an MRI of her lumbar spine for further evaluation L1 lesion. I stated that once this is been completed I would like to see her back to review the results. She stated understanding and agreement this plan. At this time I discussed with patient that I would encourage her to remain as up right as possible. I stated that if she could limit her bending and lifting and twisting it this would be ideal to help her healing. We can discuss further in tervention at her follow-up visit. She agreed with this plan. Follow up visit info: Return for follow-up: After MRI Imaging next visit: None I have advised the patient to call our office with any questions, concerns, new or worsening symptoms. I have answered all questions to patient's stated satisfa ction. This document was dictated using [employer] software. A reasonable attempt at proof reading has been made to minimize errors. Please ca ll our office if you have any questions. Thanks very much for allowing me to participate in the care of this patient. If I can be of any service to you or your patients with disorders of the spine, ce rvical, thoracic, or lumbar, please do not hesitate to contact me. Sincerely, Pavan Redmond NP CC: Yeny Joiner PA documented in this encounter Plan of Treatment Care Team Description Date Type Specialty Jose Wei MD [address] [place] [address] [phone] 02/04/2020 Telemedicine Surgery 02/23/2020 Appointment Radiology Corey Moore MD [address] [place] [address] [phone] 02/23/2020 Office Visit Radiation Oncology Kameron Rios MD [address] [place], [place] [id number] 02/26/2020 Office Visit Hematology and Onco logy Order Schedule Name Type Priority Associated Diag noses Expected: 01/26/2020, Expires: 2 MR Lumbar Spine without Imaging Routine Closed fracture of first Contrast lumbar vertebra, unspecified fracture morphology, initial encounter Health Maintenance Due Date Last Done Comments [...] filedocumented in this encounter Visit Diagnoses Diagnosis Closed fracture of first lumbar vertebr a, unspecified fracture morphology, initial encounter - Primary documented in this encounter
--- OUTSIDE RECORDS SUMMARY | 2020-04-12 15:07 | CCD | Summary of Care ---
Author Author [facility] Organization [facility] Address Unknown Phone Unavailable Care Team Providers Care Director Of Distance Learning Name Role Phone Yeny Joiner PCP Unavailable Reason for Visit * Reason Comments Follow-up Encounter Details Care Team Description Date Type Department Mix, Corey Pabon MD [facility] [place] [address] Small cell lung cancer (Primary Dx) 02/24/2020 Telemedicine [facility] [address] [place] [phone] Allergies Comments Active Allergy Reactions Severity Noted Date Pollen Extract Other (See 05/16/2019 Comments) documented as of this encounter (statuses as of 02/24/2020) Medications End Date Status Medication Sig Dispensed [...] as of this encounter (statuses as of 02/24/2020) Active Problems Problem Noted Date Encounter for palliative care 07/23/2019 Overview: Symptoms limited at postchemo nausea, n o longer depressed. Advised to bring back HCP form as we have only second pa ge scanned in [employer]. Has her with her son as alternate designated as HCP. Handed full set of advance directives for review. Small cell lung cancer 05/16/2019 Cancer Staging: Clinical stage from 08/27: Stage IVB (cT0, cN2, cM1c) - Signed by Corey Moore MD on 09/29/2019 documented as of this encounter (statuses as of 02/24/2020) Social History Date Tobacco Use Types Packs/Day [...] Comments Vital Sign - - Blood Pressure - - Pulse - - Temperature - - Respiratory Rate - - Oxygen Saturation - - Inhaled Oxygen Concentration 73.9 kg (163 lb) 02/24/2020 9:38 AM EST Weight - - Height 30.8 01/26/2020 1:23 PM EST Body Mass Index documented in this encounter Progress Notes * Corey Moore MD - 02/24/2020 1:00 PM EST Radiation Oncology Outpatient Follow-up Visit Report Subjective: Diagnosis and Stage: Lung, small cell lung cancer, [id number], extensive stage (brain mets, bone, pericardial effusion) Prior Therapy: - cisplatin/etoposide, s/p 4 cycles (atez added final two cycles), last dose on 07/23/2019; - maintenance atezolizumab - WBRT 3000 cGy in 10 fractions - completed 10/17/19. Concurrent memantine - palliative radiation to mediastinum and lower spine, 2000 cGy in 5 fractions c ompleted 01/20/2020 Performance status: (2) Ambulatory and capable of self care, unable to carry ou t work activity, up and about > 50% or waking hours HPI: Sugey is a 54-year-old female with extensive stage small cell lung cancer , treated as above. Most recently, she completed palliative radiationTo the mediastinum and lumbar s pine. She has improved pain in her lower back. Still has some hip pain. Is se [facility]. MRI that was resulted during the course of her palliative rad iation showed findings consistent for progressive metastases, we opted for short interval follow-up. Presents today to review MRI. She has occasional mild headache, relieved with NSAID. A few times a week. occ asional nausea, good relief with Zofran. Denies focal weakness, difficulty with speech/balance/coordination. Notes her appetite is improving, and has gained s ome weight. Functional status also has improved. Medications: Current Outpatient Medications Medication Sig Dispense Refill Allopurinol 300 MG [...] by mouth daily No current facility-administered medications for this visit. Allergies: Pollen extract Patient's medications, allergies, past medical, surgical, social and family hist ories were reviewed and updated as appropriate. Objective: Vitals - 1 value per visit 01/21/2020 01/26/2020 02/24/2020 SYSTOLIC 84 - - DIASTOLIC 59 - - PULSE 105 110 - TEMPERATURE 98.4 - - RESPIRATIONS 18 - - Weight (kg) 74.118 kg 73.483 kg 73.936 kg HEIGHT - 154.9 cm - SPO2 98 - - BODY MASS INDEX 28.77 kg/m2 30.61 kg/m2 30.8 kg/m2 PAIN SCALE - SCORE 4 - 3 PAIN SCALE - LOCATION BACK - - PAIN SCALE - COMMENT - - right hip Wt Readings from Last 3 Encounters: 02/24/20 73.9 kg (163 lb) 01/26/20 73.5 kg (162 lb) 01/21/20 74.1 kg (163 lb 6.4 oz) Phone Exam - Limited No repiratory distress Speech fluent Psych: Mood, affect, train of thought unremarkable. Good insight. Diagnostic Test Results: MRI brain with and without contrast 02/23/2020 Clinical Indication: 54 years Female, brain metastases Multiplanar multisequence MR images of the brain without and with contrast were submitted for interpretation. Comparison: 01/19/20 Compared to the prior study, there is been an interval increase in the size of t he now a new nodular enhancing mass is noted within the right insular cortex see n best on the coronal postcontrast images measuring 4.7 x 4.2 x 3.7 mm periphera lly enhancing mass within the left uncus measuring 6.8 x 6.4 x 4.9 mm (AP, TR, C C). The right lateral cerebellar metastasis has increased in size and now measur es 8.3 x 8.2 x 7.2 mm. More posteriorly and superiorly within the right cerebell um there is an enhancing metastasis that measures 6.4 x 7.8 x 5.6 mm (AP, TR, CC ), as well as a left cerebellar metastasis that now measures 4.5 x 8.2 x 5.6 mm (AP, TR, CC). The right pontine metastasis appears slightly larger measuring 4.3 x 4.1 x 4.2 mm (AP, TR, CC). The ventricles and sulci are within normal limits. There is no midline shift. Additional scattered foci of abnormal signal intensity are noted within the roger ventricular and subcortical white matter bilaterally. These are nonspecific but likely related to small vessel ischemic disease. There is no acute intraparench ymal hemorrhage. There is no restricted diffusion. The pituitary gland is not enlarged. The cerebellar tonsils are normally located above the foramen magnum. Flow voids at the skull base are intact. Impression: Increased number and size of metastases. Assessment & Plan: Sugey Krishnan is a 54-year-old female with metastatic small cell lung cancer, tr eated with chemo/immunotherapy, WBRT, and palliative radiation therapy as above. Clinically she sounds to be a bit improved since last time I saw her. Given her intracranial progression, and history of whole brain radiation therapy, options would include repeat whole brain, radiosurgery, systemic therapy alone, or best supportive care. Would not favor repeat whole brain unless absolutely necessar y. Given her recalcitrant disease, number of lesions, and presence of one withi n the brainstem, would not rely on red cliff based doublet alone to induce respon se. Thus, I would recommend radiosurgery, if the patient is going to continue r eceiving treatment. She expresses a desire to continue with therapy, and is not interested in pursui ng comfort care approach at this time. She is scheduled to have further discuss ion with medical oncology regarding ongoing systemic therapy. Of note, she has not had any systemic imaging since completing palliative radiation to the chest and spine, so would recommend updating imaging prior to starting systemic therap y, for new baseline. If no active disease below the neck, it might be reasonabl e to consider radiosurgery alone, and saving salvage red cliff therapy for system ic recurrence. Discussed in detail the logistics of the gamma knife procedure, including placem ent of stereotactic frame with/without moderate sedation, local anesthetic. Ris ks were presented in laymen terms, including skin irritation, hair loss, bleedin g/infection at pin sites, transient worsening of neurologic symptoms, seizure, h eadache, nausea, radionecrosis, secondary malignancy. Potential for noting flex tional lesions on day of procedure was also mentioned, which could be treated in real time. Follow up and surveillance schedule with MRI was described. We will take initial steps to get her set up for gamma knife radiosurgery within the coming weeks. All questions were answered to her satisfaction, and she is agreeable to proceed as outlined. Corey Moore MD Charge Coordinator Radiation Oncology documented in this encounter Nursing Notes * Serenity Lovett - 02/24/2020 1:00 PM EST Radiation Oncology Lung Cancer Nursing Note Smoking Status: Ex-smoker Dyspnea: no Cough (hemoptysis or productive sputum): yes. Description: feels that it is fro m post nasal drip Oxygen use: no Appetite/weight loss: yes. Description: on and off - has lost approx 20 lbs in 4 months Energy/activity level: Low but improving Nausea/Vomiting: yes. Description: everyday - releived with zofran Skin Reaction: no Recent Falls: no Other: Asked for refills on zofran if possible documented in this encounter Plan of Treatment Care Team Description Date Type Specialty Kameron Rios MD [address], [place] [id number] 02/26/2020 Telemedicine Hematology and Onco Jose Johnson MD [address] [place], [place] [id number] 03/09/2020 Telemedicine Surgery Health Maintenance Due Date Last Done Comments [...]
--- OUTSIDE RECORDS SUMMARY | 2020-04-12 15:07 | CCD | Summary of Care ---
Author Author [facility] Organization [facility] Address Unknown Phone Unavailable Care Team Providers Care Analysis Lead Name Role Phone Yeny Joiner PCP Unavailable Reason for Referral * Diagnostic Radiology (Routine) Referred By Contact Referred To Contact Status Reason Specialty Diagnoses / Procedures Jerardo Tompkins MD [address] [place] [address] Email: [email or web address] Authorized Radiology Diagnoses Small cell lung cancer P rocedures MR Brain with and without Contrast Reason for Visit * Diagnostic Radiology (Routine) Referred By Contact Referred To Contact Status Reason Specialty Diagnoses / Procedures Jerardo Tompkins MD [address] [place] [id number] Email: [email or web address] Authorized Radiology Diagnoses Small cell lung cancer P rocedures MR Brain with and without Contrast Encounter Details Care Team Description Date Type Department Small cell lung cancer 02/23/2020 Hospital MRI Radiology Cance r Encounter Center [address] [place] [id number] Allergies Comments Active Allergy Reactions Severity Noted [...] 6 (six) hours as needed for Pain documented as of this encounter (statuses as [...] Signs Not on filedocumented in this encounter Plan of Treatment Care Team Description Date Type Specialty 02/24/2020 Appointment Radiology Corey Moore MD [address] [place] [address] [phone] 02/24/2020 Telemedicine Radiation Oncology Kameron Rios MD [address] [place] [address] [phone] 02/26/2020 Telemedicine Hematology and Onco Jose Johnson MD [address], [place] [id number] 03/09/2020 Telemedicine Surgery Health Maintenance Due Date [...] Procedure Name Priority Date/Time Associated Diag nosis MR BRAIN WITH AND WITHOUT Routine 02/23/2020 Smal l cell lung cancer CONTRAST [id number] 10:16 AM EST documented in this encounter Results * MR Brain with and without Contrast (02/23/2020 10:16 AM EST) Specimen Impressions Performed At Impression: Increased number and size of metastases. [facility] Narrative Performed At [facility] Clinical Indication: 54 years Female, b rain metastases Multiplanar multisequence MR images of the brain without and with contrast were submitted for interpretation. Comparison: 01/19/20 Compared to the prior study, there is b een an interval increase in the size of the now a new nodular enhancing mass is noted within the right insular cortex seen best on the coronal postcontrast i mages measuring 4.7 x 4.2 x 3.7 mm peripherally enhancing mass within the left uncus measuring 6.8 x 6.4 x 4.9 mm (AP, TR, CC). The right lateral cerebel lar metastasis has increased in size and now measures 8.3 x 8.2 x 7.2 mm. More p osteriorly and superiorly within the right cerebellum there is an enhancing metastasis that measures 6.4 x 7.8 x 5.6 mm (AP, TR, CC), as well as a left cere bellar metastasis that now measures 4.5 x 8.2 x 5.6 mm (AP, TR, CC). The right po ntine metastasis appears slightly larger measuring 4.3 x 4.1 x 4.2 mm (AP, TR, C C). The ventricles and sulci are within nor mal limits. There is no midline shift. Additional scattered foci of abnormal signal intensity are noted within the periventricular and subcortical white m atter bilaterally. These are nonspecific but likely related to small vessel isch emic disease. There is no acute intraparenchymal hem orrhage. There is no restricted diffusion. The pituitary gland is not enlarged. T he cerebellar tonsils are normally located above the foramen magnum. Flow voids at the skull base are intact. Procedure Note Interface, Received Via [facility] - 02/23/2020 12:31 PM EST Clinical Indication: 54 years Female, brain metastases Multiplanar multisequence MR images of the brain without and with contrast were submitted for interpretation. Comparison: 01/19/20 Compared to the prior study, there is been an interval increase in the size of the now a new nodular enhancing mass is noted within the right insular cortex seen best on the coronal postcontrast images measuring 4.7 x 4.2 x 3.7 mm peripherally enhancing mass within the left uncus measuring 6.8 x 6.4 x 4.9 mm (AP, TR, CC). The right lateral cerebellar metastasis has increased in size and now measures 8.3 x 8.2 x 7.2 mm. More posteriorly and superiorly within the right cerebellum there is an enhancing metastasis that measures 6.4 x 7.8 x 5.6 mm (AP, TR, CC), as well as a left cerebellar metastasis that now measures 4.5 x 8.2 x 5.6 mm (AP, TR, CC). The right pontine metastasis appears slightly larger measuring 4.3 x 4.1 x 4.2 mm (AP, TR, CC). The ventricles and sulci are within normal limits. There is no midline shift. Additional scattered foci of abnormal signal intensity are noted within the periventricular and subcortical white matter bilaterally. These are nonspecific but likely related to small vessel ischemic disease. There is no acute intraparenchymal hemorrhage. There is no restricted diffusion. The pituitary gland is not enlarged. The cerebellar tonsils are normally located above the foramen magnum. Flow voids at the skull base are intact. Impression: Increased number and size of metastases. Performing Organization Address City/State/[facility] Ph one Number [facility] [address] [place] [address] documented in this encounter Visit Diagnoses Diagnosis Small cell lung cancer Malignant neoplasm of bronchus and lung , unspecified site documented in this encounter Administered Medications Action Date Dose Rate Site Medication Order MAR Action 02/23/2020 10:02 AM EST 7 mLs gadobutrol (GADAVIST) contrast injection Given by IV 7 mL push 7 mL (rounded from 7.35 mL = 0.1 mL/kg 73.5 kg), Intravenous, 1 TIME IMAGING, 02/23/20 at 1000, For 1 dose, Imaging Protocol, Do not mix or administer in the same IV line with other medications., documented in this encounter
--- OUTSIDE RECORDS SUMMARY | 2020-04-12 15:07 | CCD | Summary of Care ---
Author Author [facility] Organization [facility] Address Unknown Phone Unavailable Care Team Providers Care Insulation Batting Machine Operator Name Role Phone Yeny Joiner PCP Unavailable Reason for Visit * Reason Comments Follow-up Encounter Details Care Team Description Date Type Department Kameron Rios MD [address] [place], [place] [id number] Small cell lung cancer (Primary Dx) 01/21/2020 Office Visit Hematology Oncology [address] [place] [phone] Allergies Comments Active Allergy Reactions Severity Noted Date Pollen Extract Other (See 05/16/2019 Comments) documented as of this encounter (statuses as of 01/21/2020) Medications End Date Status Medication Sig Dispensed Refills Start Date 05/18/2020 Active Atorvastatin Calcium 40 Take 1 tablet 30 tablet MG Oral Tablet (LIPITOR) by mouth 0 every evening Additional Information Patient taking differently: 20 mg Oral Every evening, Reported on 01/19/2020 3:10 PM 05/18/2020 Active Lisinopril 10 MG Oral Take 1 tablet 30 tablet 11 Tablet (PRINIVIL,ZESTRIL) by mouth 0 every evening Additional Information Patient not taking. Reported on 01/12/2020 12:53 PM 05/18/2020 Active Metoprolol Tartrate 50 MG Take 1 tablet 60 tablet 11 Oral Tablet (LOPRESSOR) by mouth Two 0 Times Daily Additional Information Patient taking differently: 25 mg Oral 2 Times Daily, Reported on 01/12/2020 12:53 PM 05/18/2020 Active Vitamin D3 25 MCG (1000 Take 2 60 tablet 11 UT) Oral Tablet tablets by 0 (CHOLECALCIFEROL) mouth nightly Additional Information Patient not taking. Reported on 01/12/2020 12:53 PM 05/18/2020 Active Allopurinol 300 MG Oral Take 1 tablet 30 tablet 11 Tablet (ZYLOPRIM) by mouth 0 daily Active metFORMIN HCl 1000 MG Take 1,000 mg 0 Oral Tablet (GLUCOPHAGE) by mouth nightly Active metFORMIN HCl 1000 MG Take 1,000 mg 0 Oral Tablet (GLUCOPHAGE) by mouth every morning Active Glucosamine HCl Take 1 tablet 0 (GLUCOSAMINE PO) by mouth Two Times Daily Active Tab-A-William/Beta Carotene Take 1 tablet 0 Oral Tablet by mouth daily Active Aspirin 81 MG Oral Tablet Take 81 mg by 0 mouth daily 07/21/2020 Active Loratadine 10 MG Oral Take 1 tablet 30 tablet 0 Tablet (CLARITIN) by mouth 0 daily Additional Information Patient not taking. Reported on 01/19/2020 3:10 PM 02/13/2020 Active Memantine HCl 10 MG Oral Take 1 tablet 60 tablet 4 Tablet (NAMENDA) by mouth Two 0 Times Daily 09/14/2020 Active Memantine HCl 28 x 5 MG & 5 mg/day for 49 tablet 0 21 x 10 MG Oral Tablet =1 week; 5 mg 0 (NAMENDA TITRATION PACK) twice daily for =1 week; 15 mg/day given in 5 mg and 10 mg doses for =1 week; then 10 mg twice daily Active Dexamethasone 2 MG Oral Take 1 tablet 9 tablet 0 Tablet (DECADRON) by mouth See 0 Admin Instructions Take one pill two times a day for 3 days, then one pill once a day for 3 days. Additional Information Patient not taking. Reported on 12/04/2019 11:53 AM Active HYDROcodone-Acetaminophen Take 1 tablet 0 5-325 MG Oral Tablet by mouth (LORTAB) every 6 (six) hours as needed for Pain Active HYDROcodone-Acetaminophen Take 1 tablet 30 tablet 0 5-325 MG Oral Tablet by mouth 0 (LORTAB) every 4 (four) hours as needed for Pain, Max Daily Dose: 6 tablets Additional Information Patient not taking. Reported on 01/21/2020 11:28 AM documented as of this encounter (statuses as of 01/21/2020) Active Problems Problem Noted Date Encounter for [...] as of this encounter (statuses as of 01/21/2020) Social History Date Tobacco Use Types Packs/Day Years Used Quit: 05/16/2019 Former Smoker Cigarettes 0.5 40 Smokeless Tobacco: Never Used Drinks/Week oz/Week Comments Alcohol Use Not Currently Sex Assigned at Date Recorded Not on file Date Recorded COVID-19 Exposure Response 01/21/2020 10:58 AM EST In the last month, have you been in contact with No / Unsure someone who was confirmed or suspected to have Coronavirus / COVID-19? documented as of this encounter Last Filed Vital Signs Reading Time Taken Comments Vital Sign 84/59 01/21/2020 11:45 AM EST Filemon Brown awar e Blood Pressure 105 01/21/2020 11:23 AM EST informed francisca Pulse 36.9 C (98.4 F) 01/21/2020 11:23 AM EST Temperature 18 01/21/2020 11:23 AM EST Respiratory Rate 98% 01/21/2020 11:23 AM EST ra Oxygen Saturation - - Inhaled Oxygen Concentration 74.1 kg (163 lb 6.4 oz) 01/21/2020 11:23 AM EST Weight - - Height 28.77 05/16/2019 2:57 PM EDT Body Mass Index documented in this encounter Progress Notes * Kameron Rios MD - 01/21/2020 11:15 AM EST I saw and evaluated the patient. I have reviewed the notes, assessments, and/or procedures performed by physician airplane pilot helper, I concur with her/his documentation of Sugey Garvey with progressive small cell lung cncer while on maintenance tecentrig. S/p radiation to lesions in spine and mediastinal adenopathy. There i s a question of recurrent brain mets She did not really progress on Cisplatin an d Etoposide and that would be a treatment option in a few weeks. She wants to p onder this more Before she says yes or no. * Filemon Cooper PA - 01/21/2020 11:15 AM EST Subjective: Patient ID: Sugey Garvey is a 54 y.o. 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 HPI: Ishans a past medical history of Arthritis, Cancer, Diabetes mellitu s, DVT of upper extremity (deep vein thrombosis) (2016), Hypertension, and Thyro id disease. Sugeyhas Small cell lung cancer and Encounter for palliative care on their problem list. Sugeyhas a past surgical history that includes Tubal [...] that she do es not use drugs. Ishans a current medication list which includes the [...] facility-administered medications on file prior to visit. Dat allergic to pollen extract. Interim History: Sugey Wells a 54 y.o.femalewith stage IV small cell lung c ancer metastatic to the mediastinum brain and bone. Currently she is on tecentri q, received 8 cycles as of 01/01 with some fatigue reported but not an concern b y patient. Patient has had an MRI of the brain with Dr Moore with new lesion noted , repeat MRI on 02/23/20 to assess changes. Patient has low blood pressure today , asymptomatic @84/55 (with pulse of 105 which is about average for her in previ ous encounters) Review of Systems Constitutional: Negative for activity change, appetite change, chills, diaphores is, fatigue and fever. HENT: Negative. Eyes: Negative. Respiratory: Negative for cough, chest tightness, shortness of breath and wheezi ng. Cardiovascular: Negative for chest pain. Gastrointestinal: Positive for nausea. Negative for abdominal pain, constipation , diarrhea and vomiting. Endocrine: Negative. Genitourinary: Negative. Musculoskeletal: Positive for arthralgias and back pain. Skin: Negative for pallor and rash. Allergic/Immunologic: Negative. Neurological: Negative for dizziness, weakness, light-headedness and headaches. Hematological: Negative. Psychiatric/Behavioral: Negative. Objective: Physical Exam Constitutional: General: She is not in acute distress. Appearance: She is not toxic-appearing. HENT: Head: Normocephalic. Cardiovascular: Rate and Rhythm: Tachycardia present. Pulses: Normal pulses. Heart sounds: Normal heart sounds. No murmur. Pulmonary: Effort: Pulmonary effort is normal. Breath sounds: No wheezing. Abdominal: General: Bowel sounds are normal. Tenderness: There is no abdominal tenderness. There is no guarding. Musculoskeletal: General: Tenderness present. Skin: General: Skin is warm and dry. Coloration: Skin is not jaundiced or pale. Findings: No bruising. Neurological: Mental Status: She is alert and oriented to person, place, and time. Mental s tatus is at baseline. Psychiatric: Mood and Affect: Mood normal. Assessment: Sugey Wells a 54 y.o.femalewith stage IV small cell katherine g cancer metastatic to the mediastinum brain and bone. 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 Currently she is on tecent riq, received 8 cycles as of 01/01 with some fatigue reported but not an concern by patient. Patient has had progression while treated with tecentriq. Patient has had an MRI of the brain with Dr Moore with new lesion noted, repeat MRI on to assess changes. Patient has low blood pressure today, asymptomatic @84/ 55 (with pulse of 105 which is about average for her in previous encounters). Nitish tient to have change of treatment to etoposide and Cisplatin if patient agrees the plan after repeat MRI on 02/22 with return in 5 weeks for beginning of next treatment plan, ov, labs with Dr Rios Plan: I did notify if the patient develops any problems or issues prior to return, the patient should feel free to give our office a call immediately 24 hours a day. Pt confirms having number to the [facility] and having mychart account. Certain parts of this note may have been carried over from prior Hematology/Onco logy notes to maintain accuracy of patient's pertinent medical history and naa nuity of care. The details were verified and edited as appropriate. Patient was seen and discussed with Filemon Baker PA-C Hematology/Oncology Department documented in this encounter Plan of Treatment Care Team Description Date Type Specialty Pavan Redmond NP [address] [place], [place] [id number] 01/26/2020 Office Visit Orthopedic Surgery 02/23/2020 Appointment Radiology Corey Moore MD [address] [place] [address] [phone] 02/23/2020 Office Visit Radiation Oncology Kameron Rios MD [address] [place] [address] [phone] 02/26/2020 Office Visit Hematology and Onco logy Order Schedule Name Type Priority Associated Diag noses 1 Occurrences starting 01/21/2020 until 07/20/2020 CBC and differential Lab STAT Small denae l lung cancer 1 Occurrences starting 01/21/2020 until 07/20/2020 Comprehensive metabolic Lab STAT Small cell lung cancer panel 1 Occurrences starting 01/21/2020 until 07/20/2020 TSH Lab Routine Small cell lung cancer Health Maintenance Due [...] Associated Diag nosis CBC AND DIFFERENTIAL Routine 01/21/2020 Small denae l lung cancer 11:03 AM EST TSH Routine 01/21/2020 Small cell lung cancer 11:03 AM EST COMPREHENSIVE METABOLIC STAT 01/21/2020 Small cell lung cancer PANEL 11:03 AM EST documented in this encounter Results * TSH (01/21/2020 11:03 AM EST) TSH 29.200 (H) 0.270 - 4.200 [facility] u[IU]/mL CLINICAL PATHOLOGY Specimen Plasma Performing Organization Address [place] Ph one Number [facility] CLINICAL [address] [place], [place] [address] PATHOLOGY * Comprehensive metabolic panel (01/21/2020 11:03 AM EST) Albumin 4.1 3.5 - 5.2 g/dL [facility] CLINICAL PATHOLOGY Bilirubin, 0.4 <1.2 mg/dL [facility] Total CLINICAL PATHOLOGY Calcium 10.5 (H) 8.6 - 10.0 mg/dL [facility] CLINICAL PATHOLOGY Chloride 94 (L) 98 - 107 mmol/L [facility] CLINICAL PATHOLOGY Creatinine 1.55 (H) 0.50 - 0.90 mg/dL [facility] CLINICAL PATHOLOGY Glucose 163 (H) 70 - 140 mg/dL [facility] CLINICAL PATHOLOGY Alkaline 76 35 - 104 U/L [facility] Phosphatase CLINICAL PATHOLOGY Potassium 4.2 3.4 - 5.1 mmol/L [facility] PATHOLOGY Total Protein 7.1 6.4 - 8.3 g/dL [facility] CLINICAL PATHOLOGY Sodium 129 (L) 136 - 145 mmol/L [facility] CLINICAL PATHOLOGY AST/SGO 28 <32 U/L [facility] CLINICAL PATHOLOGY Blood Urea 20 6 - 20 mg/dL [facility] Nitrogen CLINICAL PATHOLOGY Osmolality, [place] 275 275 - 300 mosm/kg [facility] CLINICAL PATHOLOGY BUN/Cre Ratio 13 [facility] CLINICAL PATHOLOGY Bicarbonate 22 22 - 29 mmol/L [facility] CLINICAL PATHOLOGY ALT/SGP 14 <33 U/L [facility] CLINICAL PATHOLOGY Anion Gap 14 8 - 15 mmol/L [facility] CLINICAL PATHOLOGY GFR Non 38 (L) >60 mL/min/1.73m2 [facility] 2008 CLINICAL CDK-EPI PATHOLOGY GFR 44 (L) >60 mL/min/1.73m2 [facility] 2008 CLINICAL CKD-EPI PATHOLOGY Specimen Plasma Performing Organization Address [place] Ph one Number [facility] [address] [place] [address] PATHOLOGY * CBC and differential (01/21/2020 11:03 AM EST) White Blood 4.3 4 - 10 10*3/uL [facility] Clin Pathology Red Blood Cell 3.52 (L) 4.1 - 5.3 10*6/uL [facility] Clin Pathology Hemoglobin 12.1 11.5 - 15.5 g/dL [facility] Clin Pathology Hematocrit 35.4 (L) 36 - 45 % [facility] Clin Pathology Mean Cell 100.4 (H) 80 - 96 fL [facility] Volume [facility] Clin Pathology Mean Cell 34.2 (H) 27 - 33 pg [facility] Univ Clin Pathology Mean Cell Hgb 34.1 32.0 - 36.0 g/dL [facility] Clin Pathology Red Cell Dist 14.8 (H) 11.5 - 14.5 % [facility] Width [facility] Clin Pathology Platelet Count 242 150 - 400 10*3/uL [facility] Clin Pathology Differential Automated Diff [facility] Type Med Univ Clin Pathology Neutrophil 80 % [facility] Clin Pathology Lymphocyte 10 % [facility] Clin Pathology Monocyte 8 % [facility] Clin Pathology Eosinophil 2 % [facility] Clin Pathology Basophil 0 % [facility] Clin Pathology Abs Neutrophil 3.45 1.8 - 7.0 10*3/uL [facility] Clin Pathology Abs Lymphocyte 0.44 (L) 1.2 - 4.0 10*3/uL [facility] Clin Pathology Abs Monocyte 0.35 0 - 0.8 10*3/uL [facility] Clin Pathology Abs Eosinophil 0.09 0 - 0.5 10*3/uL [facility] Clin Pathology Abs Basophil 0.02 0 - 0.2 10*3/uL [facility] Clin Pathology Nucleated Red 0 0 - 0 /100{WBCs} [facility] Blood Cells [facility] Clin Pathology Specimen EDTA Whole Blood Performing Organization Address [place] Ph one [facility] CLINICAL [address] [place], [place] [address] PATHOLOGY [facility] [address] [place], [place] [address] Clin Pathology documented in this encounter Visit Diagnoses Diagnosis Small cell lung cancer - Primary Malignant neoplasm of bronchus and lung , unspecified site documented in this encounter
--- OUTSIDE RECORDS SUMMARY | 2020-04-12 15:07 | CCD | Summary of Care ---
Author Author [facility] Organization [facility] Address Unknown Phone Unavailable Care Team Providers Care Aircraft Ordnance Systems Mechanic Name Role Phone Yeny Joiner PCP Unavailable Reason for Visit * Reason Comments Follow-up Encounter Details Care Team Description Date Type Department Jose Wei MD [address] [place] [address] Encounter for palliative care (Primary D x); Small cell lung cancer 02/04/2020 Telemedicine Multidisciplinary Programs [address] [facility] 3rd [place] [address] Allergies Comments Active Allergy Reactions Severity Noted Date Pollen Extract Other (See 05/16/2019 Comments) documented as of this encounter (statuses as of 02/04/2020) Medications End Date Status Medication Sig Dispensed [...] 6 (six) hours as needed for Pain 02/14/2020 Active LORazepam 0.5 MG Oral Take 1 tablet 30 tablet 0 Tablet (Ativan) by mouth 0 every 6 (six) hours as needed for Anxiety (or nausea) for up to 10 days, Max Daily Dose: 2 mg documented as of this encounter (statuses as of 02/04/2020) Active Problems Problem Noted Date Encounter for palliative care 07/23/2019 Overview: Symptoms limited at postchemo nausea, n o longer depressed. Advised to bring back HCP form as we have only second pa ge scanned in [employer]. Has her with her son as alternate designated as HCP. Handed full set of advance directives for review. Small cell lung cancer 05/16/2019 Cancer Staging: Clinical stage from 08/27: Stage IVB (cT0, cN2, cM1c) - Signed by Corey Moore MD on 09/29/2019 documented as of this encounter (statuses as of 02/04/2020) Social History Date Tobacco Use Types Packs/Day [...] Signs Not on filedocumented in this encounter Patient Instructions * Patient Instructions* Jose Wei MD - 02/04/2020 2:30 PM EST Lorazepam trial for both anxiety and nausea as needed. Follow up in 1 month at [facility] if for any other reason here or by phone/ telemedicine. Patient Education What Is Palliative Care? Both [...] set up meetings with a counselor or party plan sales unit advisor as kary red. Giving information and [...] a palliati ve care provider or nurse, health and social care teacher, pharmacist, dietitian, counselor, spir itual advisor, and [...] of life pos gwyn. Date Last Reviewed: 04/26/[id number] [employer] [place] [address] 42. All rights reserved. This information is not intended as a substitute for p rofessional medical care. Always follow your healthcare professional's instructi ons. documented in this encounter Progress Notes * Jose Wei MD - 02/04/2020 2:30 PM ESTSummary: phone follow up pall Palliative Care Follow Up Note Appointment Location: Telephone Location/Type of Cancer: Lung Medical Oncologist: Flori Moore MD- rad onc Interval History: Sugey Garvey is a 54 y.o. female seen today for follow up palliative care. Recalls being sick with chemo, hard to decide now. Had palliative radiation [id number], and mediastinum to 2000 cGy in 400 cGy lizabeth y fractions (5 fractions total). Back pain, "killing me", MRI scheduled Feb 23. Feeling anxious, hard time to sleep, 2 hours at a time. Takes half hydrocodone few times/week Getting sick easily, marinara sauce, melted cheese, gets nauseated, taking ondan setron twice/day, nausea may come unannounced. Sugey has progressed unfortunately, she underwent palliative radiation to spin e and mediastinum and has now equivocal brain imaging needing early follow up af ter WBRT. Oncologic History: Diagnosis and Stage: Lung, small cell lung cancer, [id number], extensive stage (brain mets, bone, pericardial effusion) Prior Therapy: - cisplatin/etoposide, s/p 4 cycles (atez added final two cycles), last dose on 07/23/2019; - maintenance atezolizumab - WBRT 3000 cGy in 10 fractions - completed 10/17/19. Concurrent memantine - started palliative radiation to mediastinum and lower spine, completed 05/31 nyasia atments as of 01/19/2020 The information in this section was copied forward from a previous note for hist orical reference. Symptom Assessment 07/23/2019 02/04/2020 Pain 0 10 Pain Location - Back Fatigue No Yes Drowsiness No Yes Nausea Yes Yes Vomitting Yes Yes Lack Of Appetite No Yes Constipation No No Diarrhea No No Dyspnea No - Depression No - Anxiety No Yes OBJECTIVE: Vitals: Visit Vitals LMP (LMP Unknown) Physical Exam: appears calm, comfortable Alert, oriented, coherent. Data Reviewed: Pertinent data reviewed Reference #: [id number] Others' Prescriptions Patient Name: Sugey Garvey Date: 1965 Address: [address] [place] [address] Sex: Female Rx Written Rx Dispensed Drug Quantity Days Supply Prescriber Name Payment Method Dispenser 01/12/2020 01/12/2020 hydrocodone-acetaminophen 5-325 mg tablet 30 5 [facility] 01/07/2020 01/07/2020 hydrocodone-acetaminophen 5-325 mg tablet 30 5 Radha Mora, RPA-C Insurance [facility] #4 Patient Name: Sugey Garvey Date: 1965 Address: [address] [place] [address] Sex: Female Rx Written Rx Dispensed Drug Quantity Days Supply Prescriber Name Payment Method Dispenser 05/20/2019 05/20/2019 hydrocodone-acetaminophen 5-325 mg tablet 12 3 [facility] Insurance [facility] O DIAGNOSIS: 1. Encounter for palliative care 2. Small cell lung cancer ASSESSMENT AND PLAN: Sugey Garvey has symptoms typically seen in advanced cancers and she is strug gling to make decisions regarding further treatment as she was offered to restar t Pt based chemo. 1. Encounter for palliative care- we discussed the difficult decision she is pre sented with and the fact that there is no right or wrong decision. Any type of p alliative treatment is intended/ expected to prolong her life and improve or slo w down symptoms caused by cancer progression. For anxiety and/ or nausea will in itiate a trial of lorazepam 0.5 mg (#30) that can be used also late hours for sl eep. Advised to eat small/ frequent meals. For sleep discussed OTC agents such a s melatonin and/or benadryl to try. We have also touched on home services as [facility] and hospice care in case she declines further treatment and the h igh likelihood of further decline. Sugey feels her was very strong and supporting her and would do whatever it takes to prolong her life. We discussed also suffering as a major limitation and its subjective nature and the fact that many times important decisions become apparent in time. 2. Small cell lung cancer- progressive/ widespread mets, still a candidate for P t based chemo, next set of scans critical, brain and spine. Advanced Care Planning: she has now HCP on file, daughter in law HCP Status: Not Created MOLST Status: Not Created Discussion of Hospice: Hospice 02/04/2020 Discussion of Hospice? Yes Referred to Hospice? No Other services involved in care today: Follow Up Appointment: Return in about 1 month (around 03/06/2020) for symptom con trol, goals of care. Issues to discuss during [...] Care Plannin Time spent Advance Care Plannin Jose Wei MD documented in this encounter Plan of Treatment Care Team Description Date Type Specialty 02/23/2020 Appointment Radiology Corey Moore MD [address] [place] [address] 02/23/2020 Office Visit Radiation Oncology 02/24/2020 Appointment Radiology Kameron Rios MD [address] [place] [address] 02/26/2020 Office Visit Hematology and Onco logy Health [...]
--- OUTSIDE RECORDS SUMMARY | 2020-04-12 15:08 | CCD | Summary of Care ---
Author Author [facility] Organization [facility] Address Unknown Phone Unavailable Care Team Providers Care Pay Per Click Strategist Name Role Phone Yeny Joiner PCP Unavailable Reason for Referral * Diagnostic Radiology (Routine) Referred By Contact Referred To Contact Status Reason Specialty Diagnoses / Procedures Jerardo Tompkins MD [address] [place] [address] Email: [email or web address] [address] [place] [phone] Authorized Diagnoses Small cell lung cancer P rocedures CT Simulation At Rad Onc (In Office) Reason for Visit * Reason Comments Follow-up Encounter Details Care Team Description Date Type Department Mix, Corey Pabon MD [address] [place] [address] [id number] Small cell lung cancer (Primary Dx) 01/12/2020 Office Visit [facility] RADIATION ONCOLOGY [address] [place] [address] 1[address] [place] [address] Allergies Comments Active Allergy Reactions Severity Noted Date Pollen Extract Other (See 05/16/2019 Comments) documented as of this encounter (statuses as of 01/14/2020) Medications End Date Status Medication Sig Dispensed Refills Start Date 05/18/2020 Active Atorvastatin Calcium 40 Take 1 tablet 30 tablet 11 MG Oral Tablet (LIPITOR) by mouth 0 every evening Additional Information Patient not taking. Reported on 12/04/2019 11:52 AM 05/18/2020 Active Lisinopril 10 MG Oral Take [...] 0 Tablet (CLARITIN) by mouth 0 daily 02/13/2020 Active Memantine HCl 10 MG [...] as of this encounter (statuses as of 01/14/2020) Active Problems Problem Noted Date Encounter for [...] as of this encounter (statuses as of 01/14/2020) Social History Date Tobacco Use Types Packs/Day Years Used Quit: 05/16/2019 Former Smoker Cigarettes 0.5 40 Smokeless Tobacco: Never Used Drinks/Week oz/Week Comments Alcohol Use Not Currently Sex Assigned at Date Recorded Not on file Date Recorded COVID-19 Exposure Response 01/12/2020 9:17 AM EST In the last month, have you been in contact with No / Unsure someone who was confirmed or suspected to have Coronavirus / COVID-19? documented as of this encounter Last Filed Vital Signs Reading Time Taken Comments Vital Sign 90/68 01/12/2020 12:49 PM EST Blood Pressure 103 01/12/2020 12:49 PM EST Pulse - - Temperature 18 01/12/2020 12:49 PM EST Respiratory Rate 99% 01/12/2020 12:49 PM EST Oxygen Saturation - - Inhaled Oxygen Concentration - - Weight - - Height - - Body Mass Index documented in this encounter Progress Notes * Jerardo Tompkins MD - 01/12/2020 12:30 PM EST Radiation Oncology Outpatient Follow-up Visit Report Date of visit: 01/12/2020 Subjective: Diagnosis and Stage: Lung, small cell lung cancer, [id number], extensive stage (brain mets, bone, pericardial effusion) Prior Therapy: 1. cisplatin/etoposide, s/p 4 cycles (atez added final two cycles), last dose o n 07/23/2019; 2. maintenance atezolizumab 3. WBRT 3000 cGy in 10 fractions - completed 10/17/19. Concurrent memantine Performance status: (2) Ambulatory and capable of self care, unable to carry ou t work activity, up and about > 50% or waking hours HPI: Sugey is a 54-year-old female with extensive stage small cell lung cancer as noted above. She was treated with systemic therapy and then WBRT for progres sive brain metastases. She presented to [facility] on 01/07/2020 with lower back pain since 01/04. CT abd/pelvis on 01/07/2020 showed progression of the L1 lesion . She also had repeat CT chest/abd/pelvis and bone scan on 01/12/2020. She is doing fair. She does note lower back pain which radiates to her right lucas e. She denies urinary trouble or new lower extremity weakness/numbness/tingling. Breathing is stable and she denies chest pain She denies other complaints or co ncerns and a full review of systems was otherwise negative. Medications: Current Outpatient Medications Medication Sig Dispense Refill Allopurinol 300 MG Oral Tablet (ZYLOPRIM) Take 1 tablet by mouth daily 30 tablet 11 Aspirin 81 MG Oral Tablet Take 81 mg by mouth daily Glucosamine HCl (GLUCOSAMINE PO) Take 1 tablet by mouth Two Times Daily HYDROcodone-Acetaminophen 5-325 MG Oral Tablet (LORTAB) Take 1 tablet by mouth every 6 (six) hours as needed for Pain Loratadine 10 MG Oral Tablet (CLARITIN) Take 1 tablet by mouth daily 30 t ablet 0 Memantine HCl 10 MG Oral Tablet (NAMENDA) Take 1 tablet by mouth Two Time s Daily 60 tablet 4 Memantine HCl 28 x 5 MG & [...] Two Times Daily ) 60 tablet 11 Tab-A-William/Beta Carotene Oral Tablet Take 1 tablet by mouth daily Atorvastatin Calcium 40 MG Oral Tablet (LIPITOR) Take 1 tablet by mouth e very evening (Patient not taking: Reported on 12/04/2019) 30 tablet 11 Dexamethasone 2 MG Oral Tablet (DECADRON) Take 1 tablet by mouth See Admi n Instructions Take one pill two times a day for 3 days, then one pill once a da y for 3 days. (Patient not taking: Reported on 12/04/2019) 9 tablet 0 Lisinopril 10 MG Oral Tablet (PRINIVIL,ZESTRIL) Take 1 tablet by mouth ev elias evening (Patient not taking: Reported on 01/12/2020) 30 tablet 11 Vitamin D3 25 MCG (1000 UT) Oral Tablet (CHOLECALCIFEROL) Take 2 tablets by mouth nightly (Patient not taking: Reported on 01/12/2020) 60 tablet 11 No current facility-administered medications for this visit. Facility-Administered Medications Ordered in Other Visits Medication Dose Route Frequency Provider Last Rate Last Admin iohexol (OMNIPAQUE) 240 MG/ML contrast 20 mL 20 mL Oral ONCE PRN Jose Hui MD 20 mL at 01/12/20 1110 Allergies: Pollen extract Patient's medications, allergies, past medical, surgical, social and family hist ories were reviewed and updated as appropriate. Objective: Vitals - 1 value per visit 12/25/2019 01/02/2020 01/12/2020 SYSTOLIC 90 102 90 DIASTOLIC 65 72 68 PULSE 100 102 103 TEMPERATURE 98.2 98.5 - RESPIRATIONS 16 16 18 Weight (kg) 78.382 kg 77.565 kg - HEIGHT - - - SPO2 97 98 99 BODY MASS INDEX 30.43 kg/m2 30.11 kg/m2 - PAIN SCALE - SCORE 0 0 5 PAIN SCALE - LOCATION - - BACK Wt Readings from Last 3 Encounters: 01/02/20 77.6 kg (171 lb) 12/25/19 78.4 kg (172 lb 12.8 oz) 12/04/19 81.9 kg (180 lb 9.6 oz) Physical Exam: Constitutional: NAD Eyes: Anicteric. EOMI. Ears/Nose/Throat: External exam of ears and nose unremarkable. Respiratory: Breathing unlabored at rest. Lungs CTAB. Musculoskeletal: Lower spine tenderness to palpation along midline. Skin: Upon gross examination of visible skin, no rashes, lesions, or ulcers note d. Psych: Mood, affect, and train of thought unremarkable. Judgment and insight bisi ear intact. Neuro: alert, oriented, cranial nerves grossly intact. No focal deficits. Moves all extremities. Diagnostic Test Results: 01/07/2020 CT abd/pelvis without contrast: 01/12/2020 CT chest: INDICATION: Follow-up extensive stage small cell lung cancer. TECHNIQUE: CT thorax with contrast. 1.25 mm thick sections were made using helic al technique from lung apices through lung bases. Intravenous contrast was admin istered for this examination. This study was followed by CT scans of the abdomen and pelvis. Automated dose lowering techniques and/or adjustment according to patient size w ere utilized for this exam. COMPARISON: 09/26/2019. FINDINGS: The patient has a lytic lesion in the posterior aspect of the T12 vert ebral body, with a soft tissue mass that extends posteriorly into the spinal can al. Otherwise, the visualized portion of the chest wall is unremarkable. The thyroid gland is enlarged, but has not changed. There is extensive mediastin al lymphadenopathy that has worsened dramatically since the previous examination . The lymph node masses extrinsically compress the main pulmonary artery and the right pulmonary artery. There is marked narrowing of the superior vena cava. I also see compression of the left atrial appendage. The heart size is normal, but there is a new small to moderate sized pericardial effusion. The images show no findings of pleural disease. The lungs are essentially clear. For findings below the diaphragm, please refer to the report of the concurrent C T scans of the abdomen and pelvis. IMPRESSION: 1. Enlarging lytic lesion in the posterior aspect of the T12 vertebral body, ac companied by a soft tissue mass that extends posteriorly into the spinal canal a nd threatens cord compression. 2. Markedly increased extent of mediastinal lymphadenopathy, with mass effect o n adjacent structures including significant narrowing of the superior vena cava. 3. New small to moderate pericardial effusion, probably malignant. At the time of this report, Dr. Moore of the Radiation Oncology service was alread y aware of the threat of spinal cord compression and superior vena cava syndrome in this patient, and there is a plan for palliative radiation therapy. 01/12/2020 CT abd/pelvis: FINDINGS: Heart: Small stable pericardial effusion. Liver: No mass. Gallbladder and bile ducts: Unremarkable. No ductal dilation. Pancreas: Normal. No ductal dilation. Spleen: Normal. No splenomegaly. Adrenal glands: Stable left adrenal mass estimated at 2.5 cm. Kidneys and ureters: Normal. No hydronephrosis. Stomach and bowel: No acute findings. No obstruction. No mucosal thickening. Appendix: No evidence of appendicitis. Intraperitoneal space: Unremarkable. No free air. No significant fluid collection. Vasculature: No abdominal aortic aneurysm. Lymph nodes: No significant adenopathy. Urinary bladder: Unremarkable as visualized. Reproductive: Unremarkable as visualized. Bones/joints: Destructive L1 lesion associated with pathologic fracture of the inferior endplate redemonstrated. Soft tissue mass extends into the neural canal. Stable sclerotic lesions in L2 and L4. Soft tissues: Fat containing umbilical hernia. IMPRESSION: Stable examination, no interval change from 01/07/2020. Left adrenal mass consistent with metastasis. Skeletal metastasis associated with intraspinal mass, consider follow-up MRI if indicated. Bone scan 01/12/2020: Final report pending. On our review, the L1 lesion does appear to show elevated activity. Assessment & Plan: Sugey Krishnan is a 54-year-old female with metastatic small cell lung cancer, 1 month status post whole brain radiation therapy. She also is continuing on atez olizumab. We reviewed her recent imaging from [facility] and her images from today; we will follow up on the reports from today's scans. She appears to have progression of disease in the chest as well as L1; she does also have other sites if disease in the L-spine which appear stable on last scan but were positive on last PET. We reviewed that we can offer palliative radiation therapy to the L-spine for pain, as well as to the chest for consolidation and prevention of further disease pr ogression. We reviewed the logistics of radiation therapy palliatively over 5 fr actions to each of these sites. Potential toxicity include fatigue; for the medi astinal treatment: esophagitis, and small risk of damage to heart and lungs; for the L-spine treatment: chance for increased frequency of bowel movements or uri nation, and small risk for vertebral body fracture. We explained that the risk o f fracture from disease however is much greater. The patient is agreeable to rad iation therapy to these two sites. We will proceed with CT simulation today. We will also order more hydrocodone for her pain (ISTOP: [id number]). We offered ref erral to palliative care, but she declined at this time. We will follow up on th e result of her upcoming MRI brain. We are happy to speak with her at any time i f needed. The patient was seen, examined, and counseled under the supervision of attending physician Dr. Corey Moore MD. Shari Tompkins MD Radiation Oncology PGY-5 I was present for all critical portions of the consultation and agree with the a shahrzad documentation, including the history as reviewed by me, the physical exam a s confirmed by me, and the plan of treatment, including revisions or changes mad e by me. I discussed the indication for radiation in the setting of progressive metastatic SCLC. I have explained the logistics of, and short/moth exterminator side effects of external beam radiation therapy. She has progressive disease within the mediastinum, and there is concern for SVC compression. Also has a spinal lesion with lytic destruction and erosion into canal. Note, this was felt to be a T12 lesion on chest CT (associated with 12th rib) but L1 on [place] CT. After discussin with radiology - it is most likely actually to be the T12 verterbal body, and patient only has 4 lumbar vertebral b odies. Nevertheless, we will offer palliative RT to both the mediastinum and th e lower T and L spine. All questions were answered to her satisfaction, and she demonstrated a good und erstanding of the plan as outlined above. She was encouraged to contact me at a ny time for further discussion regarding the above. Corey Moore MD Solar Mechanical Engineer Radiation Oncology documented in this encounter Plan of Treatment Care Team Description Date Type Specialty Corey Moore MD [address] [place] [address] 01/16/2020 Procedure visit Radiation Oncology 01/19/2020 Appointment Radiology Corey Moore MD [address] [place] [address] 01/19/2020 Office Visit Radiation Oncology Kameron Rios MD [address] [place], [place] [phone] 01/21/2020 Office Visit Hematology and Onco Kameron Salinas MD [address] [place], [place] [id number] 02/11/2020 Office Visit Hematology and Onco Kameron Salinas MD [address] [place], [place] [phone] 03/03/2020 Office Visit Hematology and Onco logy Health [...] Procedure Name Priority Date/Time Associated Diag nosis CT SIMULATION AT RAD ONC Routine 01/12/2020 Small cell lung cancer (IN OFFICE) 1:39 PM EST RADIOLOGY REPORT 01/07/2020 12:52 PM EST RADIOLOGY REPORT 11/17/2019 12:51 PM EDT documented in this encounter Results * CT Simulation At Rad Onc (In Office) (01/12/2020 1:39 PM EST) Specimen Performing Organization Address City/State/Zipcode Ph one Number [facility] [address] [place] [address] * RADIOLOGY REPORT (01/07/2020 12:52 PM EST) Narrative Performed At This result has an attachment that is n ot available. * RADIOLOGY REPORT (11/17/2019 12:51 PM EDT) Narrative Performed At This result has an attachment that is n ot available. documented in this encounter Visit Diagnoses Diagnosis Small cell lung cancer - Primary Malignant neoplasm of bronchus and lung , unspecified site documented in this encounter
--- OUTSIDE RECORDS SUMMARY | 2020-04-12 15:08 | CCD | Summary of Care ---
Author Author [facility] Organization [facility] Address Unknown Phone Unavailable Care Team Providers Care Talent Acquisition Relationship Manager Name Role Phone Yeny Joiner PCP Unavailable Reason for Referral * Diagnostic Radiology (Routine) Referred By Contact Referred To Contact Status Reason Specialty Diagnoses / Procedures Jerardo Tompkins MD [address] [place] [address] Email: [email or web address] Open Radiology Diagnoses Small cell lung cancer P rocedures MR Brain with and without Contrast * Consultation (Routine) Referred By Contact Referred To Contact Status Reason Specialty Diagnoses / Procedures Jerardo Tompkins MD [address] [place] [address] Email: [email or web address] Multidisciplinary Programs Provider[facility] [address] [place] [phone] Authorized Specialty Services Surgery Diagnoses Required Small cell lung cancer Reason for Visit * Reason Comments Follow-up Encounter Details Care Team Description Date Type Department Mix, Corey Pabon MD [address] [place] [address] [phone] Small cell lung cancer (Primary Dx) 01/19/[address] [facility] RADIATION ONCOLOGY [address] [place] [phone] Allergies Comments Active Allergy Reactions Severity Noted [...] form as we have only second pa yaa scanned in Epic. Has her with her [...] Signs Reading Time Taken Comments Vital Sign 78/58 01/19/2020 3:[address] Tompkins aware of BP and HR Blood Pressure 110 01/19/2020 3:02 PM EST Pulse - - Temperature - - Respiratory Rate 99% 01/19/2020 3:02 PM EST Oxygen Saturation - - Inhaled Oxygen Concentration 74.8 kg (165 lb) 01/19/2020 3:02 PM EST Weight - - Height 29.05 05/16/2019 2:57 PM EDT Body Mass Index documented in this encounter Progress Notes * Jerardo Tompkins MD - 01/19/2020 2:30 PM EST Radiation Oncology Outpatient Follow-up Visit Report Subjective: Diagnosis and Stage: Lung, small cell lung cancer, [id number], extensive stage (brain mets, bone, pericardial effusion) Prior Therapy: - cisplatin/etoposide, s/p 4 cycles (atez added final two cycles), last dose on 07/23/2019; - maintenance atezolizumab - WBRT 3000 cGy in 10 fractions - completed 10/17/19. Concurrent memantine - started palliative radiation to mediastinum and lower spine, completed 4/5 nyasia atments as of 01/19/2020 Performance status: (2) Ambulatory and capable of self care, unable to carry ou t work activity, up and about > 50% or waking hours HPI: Sguey is a 54-year-old female with extensive stage small cell lung cancer , treated as above. She returns today with MRI f/u. She denies new headache. She does note being wea k on her feet, and does note some imbalance, but she also notes not drinking muc h fluids. Denies chest pain. Lower back pain is still there but she does have so me days with improved pain. She does also note continued nausea which comes on s uddenly; it did improve somewhat with taking an 8 mg Zofran prophylactically. Sh e denies other complaints or concerns and a full review of systems was [...] 6 (six) hours as needed for Pain HYDROcodone-Acetaminophen 5-325 MG Oral Tablet (LORTAB) Take 1 tablet by mouth every 4 (four) hours as needed for Pain, Max Daily Dose: 6 tablets 30 tab let 0 Memantine HCl 10 MG Oral Tablet (NAMENDA) Take 1 tablet by mouth Two Time s Daily 60 tablet 4 metFORMIN HCl 1000 MG Oral Tablet (GLUCOPHAGE) [...] Tablet Take 1 tablet by mouth daily Dexamethasone 2 MG Oral Tablet (DECADRON) Take [...] taking: Reported on 01/12/2020) 30 tablet 11 Loratadine 10 MG Oral Tablet (CLARITIN) Take 1 tablet by mouth daily (Pat ient not taking: Reported on 01/19/2020) 30 tablet 0 Memantine HCl 28 x 5 MG & 21 x 10 MG Oral Tablet (NAMENDA TITRATION PACK) 5 mg/day for =1 week; 5 mg twice daily for =1 week; 15 mg/day given in 5 mg and 10 mg doses for =1 week; then 10 mg twice daily (Patient not taking: Reported on 01/19/2020) 49 tablet 0 Vitamin D3 25 MCG (1000 UT) Oral Tablet (CHOLECALCIFEROL) Take 2 tablets by mouth nightly (Patient not taking: Reported on 01/12/2020) 60 tablet 11 No current facility-administered medications for this visit. Allergies: Pollen extract Patient's medications, allergies, past medical, surgical, social and family hist ories were reviewed and updated as appropriate. Objective: Vitals - 1 value per visit 01/12/2020 01/16/2020 01/19/2020 SYSTOLIC 90 - 78 DIASTOLIC 68 - 58 PULSE 103 - 110 TEMPERATURE - - - RESPIRATIONS 18 - - Weight (kg) - 76.295 kg 74.844 kg HEIGHT - - - SPO2 99 - 99 BODY MASS INDEX - 29.62 kg/m2 29.05 kg/m2 PAIN SCALE - SCORE 5 - 3 PAIN SCALE - LOCATION BACK - BACK PAIN SCALE - COMMENT - - After taking hydrocodone Wt Readings from Last 3 Encounters: 01/19/20 74.8 kg (165 lb) 01/16/20 76.3 kg (168 lb 3.2 oz) 01/02/20 77.6 kg (171 lb) Physical Exam: Constitutional: NAD Eyes: Anicteric. EOMI. Ears/Nose/Throat: External exam of ears and nose unremarkable. Mask in place. Respiratory: Breathing unlabored at rest. Skin: Upon gross examination of visible skin, no rashes, lesions, or ulcers note d. Psych: Mood, affect, and train of thought unremarkable. Judgment and insight bisi ear intact. Neuro: alert, oriented, cranial nerves grossly intact. No focal deficits. Moves all extremities. Diagnostic Test Results: MRI brain with and without contrast 01/19/2020: FINDINGS: On the current examination the enhancement in the uncus of the left temporal lob e is a better delineated and demonstrates mild interval decrease measuring appro ximately 4 mm in the cephalocaudal by 3.7 mm in the anteroposterior by 5.5 mm in the transverse dimension. In the right aspect of the marylou there is new focus of enhancement measuring appr oximately 4 mm in diameter. There is an underlying focus of T2 hyperintensity as well. Otherwise no additional enhancing lesion is seen in the brain. The diffusion-weighted sequences are unremarkable for an acute ischemic event. T here is no evidence of edema or mass effect. The ventricles are midline and norm al size. On FLAIR and fast spin-echo T2-weighted sequences there are scattered p atchy areas of T2 hyperintensity in the subcortical white matter and more conflu ent in the periventricular white matter. The findings are nonspecific. In the ap propriate clinical setting they could represent chronic microvascular white nicholas er ischemic changes. The basal cisterns remain patent. IMPRESSION: Mild interval decrease in the size of the enhancing lesion in the left uncus. New focus of 4 mm in diameter enhancement in the right aspect of the marylou suspic ious for metastasis. Assessment & Plan: Sugey Krishnan is a 54-year-old female with metastatic small cell lung cancer, tr eated with chemo/immunotherapy, WBRT, and palliative radiation therapy as above. She is doing fair today. BP today is somewhat low, although she does note that s he did not drink much fluids before her scan today. Her dehydration likely expla ins her imbalance. With regard to her nausea, we instructed her to take a second Zofran as well later in the day to further help prevent nausea. We reviewed her MRI today; it does appear to show new lesions in the cerebellum, in the setting of response in the left uncus lesion. Since this is the first MRI 3 months out from radiation therapy, in the setting of small cell lung cancer, it appears unl ikely that she would have progression so soon after treatment. Rather, there is a possibility it could be treatment-related, possibly response to treatment. The refore, we favor following up with short-term MRI in 6 weeks. The patient is agr eeable to this. She is also agreeable to a palliative care referral at this time . We will plan to follow up in about 6 weeks with a repeat MRI brain, and also t o f/u on her current course of radiation, or sooner if needed. The patient was seen, examined, and counseled under the supervision of attending physician Dr. Corey Moore MD. Shari Tompkins MD Radiation Oncology PGY-5 I was present for all critical portions of the follow up visit and agree with th e above documentation, including the history as reviewed by me, the physical exa m as confirmed by me, and the plan of care, including revisions or changes made by me. Overall, she doing somewhat poorly, currently undergoing palliative RT t o mediastinum and spine. She is s/p WBRT, and MRI shows some of the lesions hav e become a bit more conspicuous, and note is made of a lesion in the marylou that i s 4 mm, concerning for metatsasis. Unclear if this is related to her current sy mptoms. Talked to her about options, including radiosurgery, or close observati on, and she is inclined towards the latter. Therefore, we will do a very short interval MRI at 6 weeks. If lesion in marylou (in particular) or others, show sign of progression, and her PS remains reasonable, will likely need to consider SRS. If not, will have to have bigger discussion about whether hospice is appropri ate. Corey Moore MD Communications Representative Radiation Oncology documented in this encounter Plan of Treatment Care Team Description Date Type Specialty Pavan Redmond, SECURITY OPERATIONS SPECIALIST [address] [place], [place] [id number] 01/26/2020 Office Visit Orthopedic Surgery 02/23/2020 Appointment Radiology Corey Moore MD [address] [place] [address] [phone] 02/23/2020 Office Visit Radiation Oncology Kameron Rios MD [address] [place] [address] [phone] 02/26/2020 Office Visit Hematology and Onco logy Order Schedule Name Type Priority Associated Diag noses Expected: 01/19/2020, Expires: 2 MR Brain with and without Imaging Routine Smal l cell lung cancer Contrast Ordered: 01/19/2020 POCT i-STAT Creatinine Point of Care Routine Small c ell lung cancer Testing-Docked Device Order Schedule Name Type Priority Associated Diag noses Ordered: 01/19/2020 Ref to Ambulatory Adult Outpatient Routine Small cell lung cancer Palliative Care Program Referral Health Maintenance Due Date Last Done Comments [...]
--- OUTSIDE RECORDS SUMMARY | 2020-04-12 15:08 | CCD ---
Author Author [facility] Organization [facility] Address Unknown Phone Unavailable Care Team Providers Care Vocational Director Name Role Phone Yeny Joiner Unavailable PROBLEMS Type Condition ICD9-CM Code QAU63-FB Code Onset Dates Condition S tatus SNOMED Code Notes Problem Hyperlipemia E78.5 Active 28456222 Problem Vitamin D deficiency E55.9 Active 29157406 Problem Essential (primary) hypertension I10 Active 40573488 Problem Psoriasis L40.9 Active 1685229 Problem Hypothyroidism E03.9 Active 29326783 Problem Oropharyngeal dysphagia R13.12 Active 37730417 Problem Controlled type 2 diabetes m ellitus without complication, without long- term current use of insulin E11.9 Active 42488378 4 Problem Pure hypercholesterolemia E78.00 Active 712907 004 Problem Small cell lung cancer C34.90 Active 551236458 Problem Acute deep vein thrombosis ( DVT) of upper extremity, unspecified laterality, unspecified vein I82.629 Active 5683614 72356550 Problem Enlarged thyroid E04.9 Active 7760975 Problem Primary osteoarthritis of right hip M16.11 Acti ve 163082146 Problem Cigarette nicotine dependence without complication F17.210 Active 66873208 Problem 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 Activ e 35743618 Problem Brain mass G93.89 Active 194727596 Problem 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.218 Active [id number] ALLERGIES No Known Allergies ENCOUNTERS from 1965 to 2020-01-14 Encounter Location Date Provider Diagnosis [facility] [address] [place] [address] Dec, Reg lin [place] Controlled type 2 diabetes mellitus without complication, without long-term current use of insulin E11.9 ; Hypothyroidism E03.9 ; Essential (primary) hypertension I10 ; Contact dermatitis, unspecified contact dermatitis type, unspecified trigger L25.9 and Stage 3a chronic kidney disease N18.31 IMMUNIZATIONS No Information SOCIAL HISTORY Tobacco Use: [...] FOR REFERRAL No Information VITAL SIGNS Weight 170.2 lbs Dec, Height 63 in Dec, BMI 30.15 kg/m2 Dec, Heart Rate 132 /min Dec, Respiratory Rate 20 /min Dec, Temperature 97.4 degrees Fahrenheit Dec, Oximetry 98 Dec, Blood pressure systolic 120 mm Hg Dec, Blood pressure diastolic 70 mm Hg Dec, MEDICATIONS Medication SIG (Take, Route, Frequency, Duration) Notes Start Da te End Date Status Metformin HCl 1000 MG 1 tablet with a meal orally twice daily for 30 Active Metoprolol Tartrate 50 MG 1 tablet Orally Twice a day for 30 Active Glucometer as directed Dx E11.21 Daily for 30 days Dec, Active Allopurinol 300 MG 1 tablet Orally Once a day for 30 day(s) June, Active Lancets - as directed Dx: E11.21 Daily for 30 days Dec Active Aleve 220 MG 1 capsule with food or milk as needed Orally every 12 hrs for 7 day(s) Mar, Active Lisinopril 10 MG TAKE ONE TABLET BY MOUTH EVERY DAY orally once daily Active Levothyroxine Sodium 125 MCG 1 tablet in the morning o n an empty stomach Orally Once a day Active Ongduh-Hstrrhjim-PDL Complex OTC 2 tablet Orally Once a day Active Vitamin D (Cholecalciferol) 2000 1 tablet Orally Once a day Apr, Active Atorvastatin Calcium 20 MG 1 tablet Orally Once a day for 30 day (s) Dec, Active Clobetasol Propionate E 0.05 % 1 application Externall y Twice a day to rash on thigh for 10 day(s) Dec, Active Memantine HCl 10 MG TAKE ONE TABLET BY MOUTH TWO TIMES A DAY Oral bid Active Multivitamins OTC 1 tablet Orally Once a day Active Blood Pressure Kit - as directed _ Dx: I10 for 90 days Apr, Active Blood Glucose Test - as directed In Vitro Dx: E11.21 Daily for 3 0 days Dec, Active Aspirin 81 MG 1 tablet Orally Once a day Dec, Active PROCEDURES No Information RESULTS No Results REASON FOR VISIT 3 month, pt s/t the her right thigh itches MEDICAL (GENERAL) HISTORY Type Description Date Medical History small cell lung cancer with brain mets diagnosed 04/2019 - Following with Oncology in [place] Medical History HTN Medical History DM Type [...] Notes Treatment Notes Treatm ent Clinical Notes Dec, Controlled type 2 diabetes m luz mariaitus without complication, without long-term current use of insulin (ICD-10 - E11.9) Dec, Hypothyroidism (ICD-10 - E03.9) Her Levothyroxine dose was increased about 3 weeks ago by Oncology Dec, Essential (primary) hypertension (ICD-10 - I10) Blood pressure is stable on meds. Continue current management. Attempt to follow DASH diet (lots of fruit, vegetable and low-fat dairy, low in saturated fat). Reduce salt to less than 2.4 grams/day. Engage in aerobic activities for 30 minutes on most days. Maintain a healthy weight. Limit alcohol intake to one drink a day Dec, Contact dermatitis, unspecif ied contact dermatitis type, unspecified trigger (ICD-10 - L25.9) Dec, Stage 3a chronic kidney disease (ICD-10 - N18.31 ) PLAN OF TREATMENT Medication Medication Name Sig Start Date Stop Date Lisinopril 10 MG TAKE ONE TABLET BY MOUTH EVERY DAY orally once daily Levothyroxine Sodium 125 MCG 1 tablet in the morning o n an empty stomach Orally Once a day Clobetasol Propionate E 0.05 % 1 application Externall y Twice a day to rash on thigh for 10 day(s) Dec, Atorvastatin Calcium 20 MG 1 tablet Orally Once a day for 30 day(s) Dec, Allopurinol 300 MG 1 tablet Orally Once a day for 30 day(s) 13 M 2019 Metformin HCl 1000 MG 1 tablet with a meal orally twice daily fo r 30 Treatment Notes Assessment Notes Clinical Notes Hypothyroidism Her Levothyroxine do se was increased about 3 weeks ago by Oncology Essential (primary) hypertension Blood p ressure is stable on meds. Continue current management. Attempt to follow DASH diet (lots of fruit, vegetable and low-fat dairy, low in saturated fat). Reduce salt to less than 2.4 grams/day. Engage in aerobic activities for 30 minutes on most days. Maintain a healthy weight. Limit alcohol intake to one drink a day Treatment Notes Test Name Order Date RENAL ULTRASOUND 2020-01-14 Future Test Test Name Order Date Basic Metabolic Profile (BMP) [id number] MICROALBUMIN RANDOM [id number] Next Appt Details 4 - 6 weeks, labs prior Reason: Provider Name:Yeny Joiner, 2020-01 02:45:00 PM, [address], [place], [phone], Insurance Providers Payer Name Payer Address Payer Phone Insured Name Patient Relati onship to Insured Coverage Start Date Coverage End Date [employer] DEPT [address] [place] [phone] ALEXA TOMLIN self
--- OUTSIDE RECORDS SUMMARY | 2020-04-12 15:08 | CCD | Summary of Care ---
Author Author [facility] Organization [facility] Address Unknown Phone Unavailable Care Team Providers Care Carpet Jack Name Role Phone Yeny Joiner PCP Unavailable Reason for Visit * Diagnostic Radiology (Routine) Referred By Contact Referred To Contact Status Reason Specialty Diagnoses / Procedures Filemon Cooper PA [address] [place] [address] Email: [email or web address] Authorized Radiology Diagnoses Small cell lung cancer P rocedures NM Bone Scan Imaging Whole Body Encounter Details Care Team Description Date Type Department Arrived 01/12/2020 [facility] Nuclear Medicine Encounter [address] [place] [address] Allergies Comments Active Allergy Reactions Severity Noted Date Pollen Extract Other (See 05/16/2019 Comments) documented as of this encounter (statuses as of 01/13/2020) Medications End Date Status Medication Sig Dispensed Refills Start Date 05/18/2020 Active Atorvastatin Calcium 40 Take 1 tablet 30 tablet MG Oral Tablet (LIPITOR) by mouth 0 every evening Additional Information Patient not taking. Reported on 12/04/2019 11:52 AM 05/18/2020 Active Lisinopril 10 MG Oral Take 1 tablet 30 tablet Tablet (PRINIVIL,ZESTRIL) by mouth 0 every evening [...] as of this encounter (statuses as of 01/13/2020) Active Problems Problem Noted Date Encounter for palliative care 07/23/2019 Overview: Symptoms limited at postchemo nausea, n o longer depressed. Advised to bring back HCP form as we have only second pa ge scanned in [facility]. Has her with her son as alternate designated as HCP. Handed full set of advance directives for review. Small cell lung cancer 05/16/2019 Cancer Staging: Clinical stage from 08/27: Stage IVB (cT0, cN2, cM1c) - Signed by Corey Moore MD on 09/29/2019 documented as of this encounter (statuses as of 01/13/2020) Social History Date Tobacco Use Types Packs/Day [...] Treatment Care Team Description Date Type Specialty 01/19/2020 Appointment Radiology Corey Moore MD [address] [place] [address] [phone] 01/19/2020 Office Visit Radiation Oncology Kameron Rios MD [address] [place] [address] 01/21/2020 Office Visit Hematology and Onco logy Kameron Rios MD [address] [place] [address] 02/11/2020 Office Visit Hematology and Onco logy Kameron Rios MD [address] [place] [address] 03/03/2020 Office Visit Hematology and Onco logy [...] Procedure Name Priority Date/Time Associated Diag nosis NM BONE SCAN IMAGING Routine 01/12/2020 Small denae l lung cancer WHOLE BODY [address] 12:36 PM EST documented in this encounter Results * NM Bone Scan Imaging Whole Body (01/12/2020 12:36 PM EST) Specimen Impressions Performed At IMPRESSION: [facility] RAD[facility] 1. Increased radiopharmaceutical uptake i n the L1 vertebral body corresponding to the lytic lesion on recent CT, likely r epresenting metastatic disease. 2. 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 Narrative Performed At [facility] RAD[facility]OLOG[facility] CLINICAL INDICATION: 54-year-old female with stage IV bladder cancer. TECHNIQUE: Two hours following the intravenous in jection of 23.2 mCi of Tc-99m labeled MDP, whole body and selected static sofia ges of the skeleton were obtained. COMPARISON: Relevant anatomic imaging s tudies available for comparison include: NM bone scan dated 05/19/[address] tho rax, abdomen and pelvis dated 01/12/2020. FINDINGS: There are foci of abnormally increased uptake seen in the L1 vertebral body which likely corresponds to a lytic les ion seen on recent CT. There are focal areas of mildly increased uptake seen i n the T9, L3, and L4 vertebral bodies which correlate with sclerotic lesions seen on CT. All of these lesions have increased from the prior study. There is symmetrically increased uptake in bilateral shoulders and sternoclavicular joints consistent with degenerative joint disease. Procedure Note Interface, Received Via [employer] System - 01/12/2020 6:55 PM EST CLINICAL INDICATION: 54-year-old female with stage IV bladder cancer. TECHNIQUE: Two hours following the intravenous injection of 23.2 mCi of Tc-99m labeled MDP, whole body and selected static images of the skeleton were obtained. COMPARISON: Relevant anatomic imaging studies available for comparison include: NM bone scan dated 05/19/[address] thorax, abdomen and pelvis dated 01/12/2020. FINDINGS: There are foci of abnormally increased uptake seen in the L1 vertebral body which likely corresponds to a lytic lesion seen on recent CT. There are focal areas of mildly increased uptake seen in the T9, L3, and L4 vertebral bodies which correlate with sclerotic lesions seen on CT. All of these lesions have increased from the prior study. There is symmetrically increased uptake in bilateral shoulders and sternoclavicular joints consistent with degenerative joint disease. IMPRESSION: 1. Increased radiopharmaceutical uptake in the L1 vertebral body corresponding to the lytic lesion on recent CT, likely representing metastatic disease. 2. 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 Performing Organization Address City/State/Zipcode Ph one Number [facility] [address] [place] [address] documented in this encounter
--- OUTSIDE RECORDS SUMMARY | 2020-04-12 15:08 | CCD | Summary of Care ---
Author Author [facility] Organization [facility] Address Unknown Phone Unavailable Care Team Providers Care Rn Social Services Name Role Phone Yeny Joiner PCP Unavailable Encounter Details Care Team Description Date Type Department Mix, Corey Pabon MD [address] [place] [address] Small cell lung cancer (Primary Dx) 01/16/2020 Procedure visit [facility] RADIATION ONCOLOGY [address] [facility] 1st [place] [phone] Allergies Comments Active Allergy Reactions Severity Noted Date Pollen Extract Other (See 05/16/2019 Comments) documented as of this encounter (statuses as of 01/19/2020) Medications End Date Status Medication Sig Dispensed [...] as of this encounter (statuses as of 01/19/2020) Active Problems Problem Noted Date Encounter for [...] as of this encounter (statuses as of 01/19/2020) Social History Date Tobacco Use Types Packs/Day Years Used Quit: 05/16/2019 Former Smoker Cigarettes 0.5 40 Smokeless Tobacco: Never Used Drinks/Week oz/Week Comments Alcohol Use Not Currently Sex Assigned at Date Recorded Not on file Date Recorded COVID-19 Exposure Response 01/16/2020 10:08 AM EST In the last month, have [...] Oxygen Saturation - - Inhaled Oxygen Concentration 76.3 kg (168 lb 3.2 oz) 01/16/2020 3:44 PM EST Weight - - Height 29.62 05/16/2019 2:57 PM EDT Body Mass Index documented in this encounter Progress Notes * Jerardo Tompkins MD - 01/16/2020 3:15 PM EST Radiation Oncology On-Treatment Visit Note Sugey is currently undergoing a course of Radiation Therapy. She was seen by me after treatment today. Image Guided Radiation Therapy imaging reviewed. Diagnosis: Cancer Staging Small cell lung cancer Staging form: Lung, AJCC 8th Edition - Clinical stage from 09/24/2019: Stage IVB (cT0, cN2, cM1c) - Signed by Corey Moore MD on 09/29/2019 ECOG Performance Status: 2 - Symptomatic, <50% confined to bed Prior Therapy: WBRT 3000 cGy in 10 fractions - completed 10/17/19 Treatment Site: mediastinum and lumbar spine Treatment intent: Palliative Dose in cGy No. of fractions Current Dose 1200 3 Prescribed Dose 2000 5 There is not a planned boost. She is not receiving concurrent systemic therapy. Medications: Current Outpatient Medications Medication Sig Dispense [...] taking: Reported on 12/04/2019) 9 tablet 0 Glucosamine HCl (GLUCOSAMINE PO) Take 1 tablet by mouth Two Times Daily HYDROcodone-Acetaminophen 5-325 MG Oral Tablet (LORTAB) Take 1 tablet by mouth every 6 (six) hours as needed for Pain HYDROcodone-Acetaminophen 5-325 MG Oral Tablet (LORTAB) Take 1 tablet by mouth every 4 (four) hours as needed for Pain, Max Daily Dose: 6 tablets 30 tab let 0 Lisinopril 10 MG Oral Tablet (PRINIVIL,ZESTRIL) [...] No current facility-administered medications for this visit. Chemotherapy 12/04/2019 01/02/2020 01/12/2020 Day, Cycle Day 1, Cycle 5 Day 1, Cycle 6 - atezolizumab (TECENTRIQ) IV 1,200 mg 1,200 mg - CISplatin (PLATINOL) IV - - - etoposide (VEPESID) IV - - - POC Glucose - - - i-STAT Creatinine - - 1.4(H) Vitals: Vitals - 1 value per visit 01/02/2020 01/12/2020 01/16/2020 SYSTOLIC 102 90 - DIASTOLIC 72 68 - PULSE 102 103 - TEMPERATURE 98.5 - - RESPIRATIONS 16 18 - Weight (kg) 77.565 kg - 76.295 kg HEIGHT - - - SPO2 98 99 - BODY MASS INDEX 30.11 kg/m2 - 29.62 kg/m2 PAIN SCALE - SCORE 0 5 - PAIN SCALE - LOCATION - BACK - Wt Readings from Last 3 Encounters: 01/16/20 76.3 kg (168 lb 3.2 oz) 01/02/20 77.6 kg (171 lb) 12/25/19 78.4 kg (172 lb 12.8 oz) Clinical Evaluation: Subjective She is tolerating therapy without difficulty. Pain is improving. She does note n ausea which comes on suddenly and sporadically through the day. She also has deny rrhea for which she takes Imodium. Objective Weight is slightly lower than prior. NAD Image Review Reviewed images have been satisfactory. Changes made as necessary. Impression and Plan: Sugey is tolerating radiation therapy as expected. Instructed her to take the Zofran prophylactically early in the day. Encouraged her to continue using the Imodium as needed. We reviewed what to expect from ongoing treatment. She was counseled, encourage d, and questions were addressed. We will continue radiation therapy as planned. The patient was seen, examined, and counseled under the supervision of attending physician Dr. Corey Moore MD. Shari Tompkins MD Radiation Oncology PGY-5 I was present for all critical portions of the on-treatment visit and agree with the above documentation, including the history as reviewed by me, the physical exam as confirmed by me, and the plan of care, including revisions or changes ma de by me. Corey Moore MD Vertical Mill Operator Radiation Oncology documented in this encounter Nursing Notes * Pham Curry RN - 01/16/2020 3:15 PM EST Radiation Oncology Nursing Documentation Skin Reaction: no Fatigue Level: no Mucositis: no Eating/Drinking: no Nausea/Vomiting: yes - nausea and vomiting, taking zofran, but states it does no t help because when the nausea comes on it is instantly and can't get zofran in time. Constipation: no Diarrhea: yes - taking immodium with relief Urinary Difficulty: no Recent Falls: no Referral to Nutrition: no Patient Education: Other: Narrative documented in this encounter Plan of Treatment Care Team Description Date Type Specialty 01/19/2020 [facility] Radiology Encounter Corey Moore MD [address] [place] [address] [phone] 01/19/2020 Office Visit Radiation Oncology Kameron Rios MD [address] [place] [address] 01/21/2020 Office Visit Hematology and Onco logy Pavan Redmond, BROOMMAKING SUPERVISOR [address] [place] [address] 01/26/2020 Office Visit Orthopedic Surgery Kameron Rios MD [address] [place] [address] 02/11/2020 Office Visit Hematology and Onco logy Kameron Rios MD [address] [place] [address] 03/03/2020 Office Visit Hematology and Onco logy Health Maintenance Due Date Last Done Comments MMR Vaccines (1 of - 04/26/1966 Standard series) Varicella Vaccines (04/26/1966 2 - 2-dose childhood series) Pneumococcal Vaccine: [...]
--- OUTSIDE RECORDS SUMMARY | 2020-04-12 15:08 | CCD | Summary of Care ---
Author Author [facility] Organization [facility] Address Unknown Phone Unavailable Care Team Providers Care Physician Representative Name Role Phone Yeny Joiner PCP Unavailable Reason for Referral * Diagnostic Radiology (Routine) Referred By Contact Referred To Contact Status Reason Specialty Diagnoses / Procedures Corey Moore MD [address] [place] [address] Email: [email or web address] Authorized Radiology Diagnoses Brain metastases P rocedures MR Brain with and without Contrast Reason for Visit * Diagnostic Radiology (Routine) Referred By Contact Referred To Contact Status Reason Specialty Diagnoses / Procedures Corey Moore MD [address] [place] [phone] Email: [email or web address] Authorized Radiology Diagnoses Brain metastases P rocedures MR Brain with and without Contrast Encounter Details Care Team Description Date Type Department Brain metastases 01/19/2020 [facility] MRI 550HAR Encounter [address] [place] [address] Allergies Comments Active Allergy Reactions Severity Noted Date Pollen Extract Other (See 05/16/2019 Comments) documented as of this encounter (statuses as of 01/20/2020) Medications End Date Status Medication Sig Dispensed [...] =1 week; then 10 mg twice daily Additional Information Patient not taking. Reported on 01/19/2020 3:10 PM Active Dexamethasone 2 MG Oral Take 1 [...] as of this encounter (statuses as of 01/20/2020) Active Problems Problem Noted Date Encounter for [...] as of this encounter (statuses as of 01/20/2020) Social History Date Tobacco Use Types Packs/Day Years Used Quit: 05/16/2019 Former Smoker Cigarettes 0.5 40 Smokeless Tobacco: Never Used Drinks/Week oz/Week Comments Alcohol Use Not Currently Sex Assigned at Date Recorded Not on file Date Recorded COVID-19 Exposure Response 01/19/2020 12:04 PM EST In the last month, have you been in contact with No / Unsure someone who was confirmed or suspected to have Coronavirus / COVID-19? documented as of this encounter Last Filed Vital Signs Not on filedocumented in this encounter Plan of Treatment Care Team Description Date Type Specialty Kameron Rios MD [address] [place] [address] [phone] 01/21/2020 Office Visit Hematology and Onco Pavan Nagy GANG SAW OPERATOR [address] [place] [address] 01/26/2020 Office Visit Orthopedic Surgery Kameron Rios MD [address] [place] [address] [phone] 02/11/2020 Office Visit Hematology and Onco logy Corey Moore MD [address] [place] [address] [phone] 02/18/2020 Office Visit Radiation Oncology Kameron Rios MD [address] [place] [address] [phone] 03/03/2020 Office Visit Hematology and Onco logy [...] nosis MR BRAIN WITH AND WITHOUT Routine 01/19/2020 Brai n metastases CONTRAST 51460 2:08 PM EST documented in this encounter Results * MR Brain with and without Contrast (01/19/2020 2:08 PM EST) Specimen Impressions Performed At IMPRESSION: [facility] Mild interval decrease in the size of t he enhancing lesion in the left uncus. New focus of 4 mm in diameter enhanceme nt in the right aspect of the marylou suspicious for metastasis. Narrative Performed At [facility] HISTORY: Status post radiation for brai n metastasis. COMPARISON: MRI brain September 15, 2019. TECHNIQUE: Multiplanar multiecho MRI of the brain emphasizing relative T1 and T2*information without and with intrave nous contrast administration was completed on a 3 Mitra magnet. FINDINGS: On the current examination the enhancem ent in the uncus of the left temporal lobe is a better delineated and demonst rates mild interval decrease measuring approximately 4 mm in the cephalocaudal by 3.7 mm in the anteroposterior by 5.5 mm in the transverse dimension. In the right aspect of the marylou there i s new focus of enhancement measuring approximately 4 mm in diameter. There i s an underlying focus of T2 hyperintensity as well. Otherwise no ad ditional enhancing lesion is seen in the brain. The diffusion-weighted sequences are un remarkable for an acute ischemic event. There is no evidence of edema or mass e ffect. The ventricles are midline and normal size. On FLAIR and fast spin-ech o T2-weighted sequences there are scattered patchy areas of T2 hyperinten sity in the subcortical white matter and more confluent in the periventricular w brea matter. The findings are nonspecific. In the appropriate clinica l setting they could represent chronic microvascular white matter ischemic jeannette nges. The basal cisterns remain patent. Procedure Note Interface, Received Via Radiant System - 01/19/2020 3:50 PM EST HISTORY: Status post radiation for brain metastasis. COMPARISON: MRI brain September 15, 2019. TECHNIQUE: Multiplanar multiecho MRI of the brain emphasizing relative T1 and T2*information without and with intravenous contrast administration was completed on a 3 Mitra magnet. FINDINGS: On the current examination the enhancement in the uncus of the left temporal lobe is a better delineated and demonstrates mild interval decrease measuring approximately 4 mm in the cephalocaudal by 3.7 mm in the anteroposterior by 5.5 mm in the transverse dimension. In the right aspect of the marylou there is new focus of enhancement measuring approximately 4 mm in diameter. There is an underlying focus of T2 hyperintensity as well. Otherwise no additional enhancing lesion is seen in the brain. The diffusion-weighted sequences are unremarkable for an acute ischemic event. There is no evidence of edema or mass effect. The ventricles are midline and normal size. On FLAIR and fast spin-echo T2-weighted sequences there are scattered patchy areas of T2 hyperintensity in the subcortical white matter and more confluent in the periventricular white matter. The findings are nonspecific. In the appropriate clinical setting they could represent chronic microvascular white matter ischemic changes. The basal cisterns remain patent. IMPRESSION: Mild interval decrease in the size of the enhancing lesion in the left uncus. New focus of 4 mm in diameter enhancement in the right aspect of the marylou suspicious for metastasis. 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
--- OUTSIDE RECORDS SUMMARY | 2020-04-12 15:08 | CCD | Summary of Care ---
Author Author [facility] Organization [facility] Address Unknown Phone Unavailable Care Team Providers Care Registration Rep Name Role Phone Yeny Joiner PCP Unavailable Encounter Details Care Team Description Date Type Department Mix, Corey Pabon MD [address] [place] [address] Small cell lung cancer (Primary Dx) 01/12/2020 Procedure visit [facility] RADIATION ONCOLOGY [address] [facility] 1st [place] [phone] Allergies Comments Active Allergy Reactions Severity Noted [...] have only second pa ge scanned in [employer]. Has her with her son as alternate [...] filedocumented in this encounter Progress Notes * Jerardo Tompkins MD - 01/12/2020 2:00 PM EST Radiation Oncology CT Simulation Note Indication Sugey Garvey is a 54 y.o. female who was diagnosed with ES-SCLC. She presen ts 01/12/[address] Simulation to plan a course of radiation therapy to the med iastinum and lower spine. CT Simulation Note She was placed on the CT simulator table in the supine position. The chest was c entered in the field of view. A Wing board was used for positioning. Radiopaque BBs were used to inez the approximate isocenter. CT pattern carrier was obtained to ensure that the intended treatment area was included in scan. No contrast was adminis tered. Multiple axial images were obtained from the entire region of interest wh ich were reviewed for image quality. The scanned images were transmitted to the treatment planning system. Sugey valentine lerated the simulation without any complications. Dr. Corey Moore MD was present for the entire procedure. Shari Tompkins MD Radiation Oncology PGY-5 I was present for all critical portions of the simulation, and agree with the ab ove documentation, which includes any necessary revisions made by me. Corey Moore MD International Logistics Manager Radiation Oncology documented in this encounter Plan of Treatment Care Team Description Date Type Specialty Corey Moore MD [address] [place] [address] [phone] 01/16/2020 Procedure visit Radiation Oncology 01/19/2020 Appointment Radiology Corey Moore MD [address] [place] [address] [phone] 01/19/2020 Office Visit Radiation Oncology Kameron Rios MD [address] [place] [address] [phone] 01/21/2020 Office Visit Hematology and Onco logy Kameron Rios MD [address] [place] [address] [phone] 02/11/2020 Office Visit Hematology and Onco logy Kameron Rios MD [address] [place] [address] [phone] 03/03/2020 Office Visit Hematology and Onco logy [...]
--- OUTSIDE RECORDS SUMMARY | 2020-04-12 15:09 | CCD | Summary of Care ---
Author Author [facility] Organization [facility] Address Unknown Phone Unavailable Care Team Providers Care Wastewater Treatment Operator Name Role Phone Yeny Joiner PCP Unavailable Reason for Referral * Diagnostic Radiology (Routine) Referred By Contact Referred To Contact Status Reason Specialty Diagnoses / Procedures Filemon Cooper PA [address] [place] [address] Email: [email or web address] Authorized Radiology Diagnoses Small cell lung cancer P rocedures NM Bone Scan Imaging Whole Body Reason for Visit * Diagnostic Radiology (Routine) Referred By Contact Referred To Contact Status Reason Specialty Diagnoses / Procedures Filemon Cooper PA [address] [place] [phone] Email: [email or web address] Authorized Radiology Diagnoses Small cell lung cancer P rocedures NM Bone Scan Imaging Whole Body Encounter Details Care Team Description Date Type Department Small cell lung cancer 01/12/2020 [facility] Nuclear Medicine Encounter [address] [place] [phone] Allergies Comments Active Allergy Reactions Severity Noted [...] Tablet (PRINIVIL,ZESTRIL) by mouth 0 every evening 05/18/2020 Active Metoprolol Tartrate 50 MG Take 1 tablet 60 tablet 11 Oral Tablet (LOPRESSOR) by mouth Two 0 Times Daily 05/18/2020 Active Vitamin D3 25 MCG (1000 Take 2 60 tablet 11 UT) Oral Tablet tablets by 0 (CHOLECALCIFEROL) mouth nightly 05/18/2020 Active Allopurinol 300 MG Oral Take [...] Additional Information Patient not taking. Reported on 11/19/2019 9:56 AM 02/13/2020 Active Memantine HCl 10 MG Oral [...] not taking. Reported on 12/04/2019 11:53 AM documented as of this encounter (statuses [...] Appointment Radiology Corey Moore MD [address] [place] [address] [phone] 01/19/2020 Office Visit Radiation Oncology Kameron Rios MD [address] [place] [address] 01/21/2020 Office Visit Hematology and Onco logy Kameron Rios MD [address] [place] [address] 02/11/2020 Office Visit Hematology and Onco Kameron Salinas MD [address] [place] [address] 03/03/2020 Office Visit Hematology and Onco logy [...] Small denae l lung cancer WHOLE BODY [id number] 12:36 PM EST documented in this encounter Results * NM Bone Scan Imaging Whole Body (01/12/2020 12:36 PM EST) Specimen Impressions Performed At IMPRESSION: [facility] 1. Increased radiopharmaceutical uptake i n the L1 vertebral body corresponding to the lytic lesion on recent CT, likely r epresenting metastatic disease. 2. 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 Narrative Performed At [facility] CLINICAL INDICATION: 54-year-old female with stage [...] joint disease. Procedure Note Interface, Received Via [facility] System - 01/12/2020 6:55 PM EST CLINICAL [...] likely representing osteoblastic disease. Performing Organization Address City/State/[facility] Ph one Number [facility] [address] [place] [address] documented in this encounter Visit Diagnoses Diagnosis Small cell lung cancer Malignant neoplasm of bronchus and lung , unspecified site documented in this encounter Administered Medications Action Date Dose Rate Site Medication Order MAR Action 01/12/2020 9:45 AM EST 26.6 millicuries TC-99M medronate (Tc-MDP) New Bag Intravenous, Once, 01/12/20 at 0945 , For 1 dose, Imaging Protocol documented in this encounter
--- OUTSIDE RECORDS SUMMARY | 2020-04-12 15:09 | CCD | Summary of Care ---
Author Author [facility] Organization [facility] Address Unknown Phone Unavailable Care Team Providers Care Optical Fabricator Name Role Phone Yeny Joiner PCP Unavailable Reason for Visit * Reason Comments Follow-up Encounter Details Care Team Description Date Type Department Kameron Rios MD [address], [place] [id number] Small cell lung cancer (Primary Dx) 01/02/2020 Office Visit Hematology Oncology [address] [place] [phone] Allergies Comments Active Allergy Reactions Severity Noted [...] not taking. Reported on 12/04/2019 11:53 AM 01/03/2020 Levothyroxine Sodium 125 Take 1 tablet 30 tablet 3 MCG Oral Tablet by mouth 0 (SYNTHROID) Daily Take with plain water 1/2 hr prior to other meds or food or beverages documented as of this encounter (statuses as [...] Signs Reading Time Taken Comments Vital Sign 102/72 01/02/2020 3:40 PM EST Blood Pressure 102 01/02/2020 3:40 PM EST Pulse 36.9 C (98.5 F) 01/02/2020 3:40 PM EST Temperature 16 01/02/2020 3:40 PM EST Respiratory Rate 98% 01/02/2020 3:40 PM EST ra Oxygen Saturation - - Inhaled Oxygen Concentration 77.6 kg (171 lb) 01/02/2020 1:13 PM EST Weight - - Height 30.11 05/16/2019 2:57 PM EDT Body Mass Index documented in this encounter Progress Notes * Kameron Rios MD - 01/02/2020 1:00 PM EST Subjective: Patient ID: Sugey Garvey is a 54 y.o. female with metastatic small cell anahi ng cancer. She is s/p 4 cycles of carboplatin and etoposide . She is currently on Tecentrig. She recently developed brain metastases and was treated with rad iation to the brain We have continued her on tecentrig because to date there had not been progression of her non- COMMERCIAL [employer] disease. She says she is feeling reasonab le well but fatigued. When she arrived her BP was low. She had taken her blood pressure medications this am. She says her pCP is lowering the dose She compla ins of some arthralgia and some back pain. RUBÉN Mayes has a past medical history [...] Sugey reports that she quit smoking about 8 months ago. Her smoking use inclu ded cigarettes. She has a 20.00 pack-year smoking history. She has never used sm okeless tobacco. She reports previous alcohol use. She reports that she does not use drugs. Sugey has a current medication list which includes the following prescription( s): allopurinol, aspirin, glucosamine hcl, lisinopril, memantine, memantine, met formin, metformin, metoprolol, multivitamin, vitamin d3, atorvastatin, dexametha sone, hydrocodone-acetaminophen, hydrocodone-acetaminophen, and loratadine. Current Outpatient Medications on File Prior to [...] taking: Reported on 01/12/2020) 30 tablet 11 Memantine HCl 10 MG Oral Tablet (NAMENDA) [...] taking: Reported on 01/19/2020) 49 tablet 0 metFORMIN HCl 1000 MG [...] taking: Reported on 01/12/2020) 60 tablet 11 Atorvastatin Calcium 40 MG Oral Tablet (LIPITOR) Take 1 tablet by mouth e very evening (Patient taking differently: Take 20 mg by mouth every evening ) 30 tablet 11 Dexamethasone 2 MG Oral Tablet (DECADRON) Take 1 tablet by mouth See Admi n Instructions Take one pill two times a day for 3 days, then one pill once a da y for 3 days. (Patient not taking: Reported on 12/04/2019) 9 tablet 0 Loratadine 10 MG Oral Tablet (CLARITIN) Take 1 tablet by mouth daily (Pat ient not taking: Reported on 01/19/2020) 30 tablet 0 No current facility-administered medications on file prior to visit. Sugey is allergic to pollen extract. Review of Systems Constitutional: Positive for fatigue. HENT: Negative. Eyes: Negative. Respiratory: Negative. Cardiovascular: Negative. Gastrointestinal: Negative. Endocrine: Negative. Genitourinary: Negative. Musculoskeletal: Negative. Skin: Negative. Neurological: Negative. Hematological: Negative. Psychiatric/Behavioral: Negative. All other systems reviewed and are negative. Objective: Visit Vitals BP 102/72 Pulse (!) 102 Temp 36.9 C (98.5 F) (Oral) Resp 16 Wt 77.6 kg (171 lb) LMP (LMP Unknown) SpO2 98% Comment: ra BMI 30.11 kg/m Physical Exam Constitutional: General: She is not in acute distress. Appearance: She is obese. She is not ill-appearing, toxic-appearing or diapho retic. Comments: frail HENT: Head: Normocephalic. Nose: No rhinorrhea. Eyes: General: No scleral icterus. Cardiovascular: Rate and Rhythm: Normal rate. Pulmonary: Effort: Pulmonary effort is normal. No respiratory distress. Breath sounds: No stridor. Abdominal: General: There is no distension. Palpations: Abdomen is soft. Tenderness: There is no abdominal tenderness. Musculoskeletal: General: No swelling or tenderness. Skin: General: Skin is warm and dry. Coloration: Skin is not jaundiced or pale. Findings: No bruising, erythema, lesion or rash. Neurological: Mental Status: She is alert and oriented to person, place, and time. Motor: No weakness. Psychiatric: Mood and Affect: Mood normal. Behavior: Behavior normal. Thought Content: Thought content normal. Judgment: Judgment normal. Office Visit on 01/02/2020 Component Date Value Ref Range Status TSH 01/02/2020 9.160* 0.270 - 4.200 u[IU]/mL Final Albumin 01/02/2020 4.4 3.5 - 5.2 g/dL Final Bilirubin, Total 01/02/2020 0.4 <1.2 mg/dL Final Calcium 01/02/2020 10.6* 8.6 - 10.0 mg/dL Final Chloride 01/02/2020 95* 98 - 107 mmol/L Final Creatinine 01/02/2020 1.60* 0.50 - 0.90 mg/dL Final Glucose 01/02/2020 150* 70 - 140 mg/dL Final Alkaline Phosphatase 01/02/2020 64 35 - 104 U/L Final Potassium 01/02/2020 4.7 3.4 - 5.1 mmol/L Final Total Protein 01/02/2020 7.0 6.4 - 8.3 g/dL Final Sodium 01/02/2020 131* 136 - 145 mmol/L Final AST/SGO 01/02/2020 24 <32 U/L Final Blood Urea Nitrogen 01/02/2020 22* 6 - 20 mg/dL Final Osmolality, [place] 01/02/2020 279 275 - 300 mosm/kg Final BUN/Cre Ratio 01/02/2020 14 Final Bicarbonate 01/02/2020 25 22 - 29 mmol/L Final ALT/SGP 01/02/2020 21 <33 U/L Final Anion Gap 01/02/2020 11 8 - 15 mmol/L Final GFR Non 2008 CDK-* 01/02/2020 36* >60 mL/min/1.73m2 Final GFR 2008 CKD-EPI 01/02/2020 42* >60 mL/min/1.73m2 Final White Blood Cell 01/02/2020 9.9 4 - 10 10*3/uL Final Red Blood Cell 01/02/2020 3.66* 4.1 - 5.3 10*6/uL Final Hemoglobin 01/02/2020 12.5 11.5 - 15.5 g/dL Final Hematocrit 01/02/2020 36.5 36 - 45 % Final Mean Cell Volume 01/02/2020 99.7* 80 - 96 fL Final Mean Cell Hemoglobin 01/02/2020 34.2* 27 - 33 pg Final Mean Cell Hgb Conc 01/02/2020 34.3 32.0 - 36.0 g/dL Final Red Cell Dist Width 01/02/2020 14.8* 11.5 - 14.5 % Final Platelet Count 01/02/2020 251 150 - 400 10*3/uL Final Differential Type 01/02/2020 Automated Diff Final Neutrophil 01/02/2020 62 % Final Lymphocyte 01/02/2020 29 % Final Monocyte 01/02/2020 7 % Final Eosinophil 01/02/2020 1 % Final Basophil 01/02/2020 1 % Final Abs Neutrophil 01/02/2020 6.14 1.8 - 7.0 10*3/uL Final Abs Lymphocyte 01/02/2020 2.92 1.2 - 4.0 10*3/uL Final Abs Monocyte 01/02/2020 0.69 0 - 0.8 10*3/uL Final Abs Eosinophil 01/02/2020 0.11 0 - 0.5 10*3/uL Final Abs Basophil 01/02/2020 0.07 0 - 0.2 10*3/uL Final Nucleated Red Blood Cells 01/02/2020 0 0 - 0 /100 Final Office Visit on 12/25/2019 Component Date Value Ref Range Status White Blood Cell 12/25/2019 9.1 4 - 10 10*3/uL Final Red Blood Cell 12/25/2019 3.77* 4.1 - 5.3 10*6/uL Final Hemoglobin 12/25/2019 12.7 11.5 - 15.5 g/dL Final Hematocrit 12/25/2019 37.3 36 - 45 % Final Mean Cell Volume 12/25/2019 99.0* 80 - 96 fL Final Mean Cell Hemoglobin 12/25/2019 33.8* 27 - 33 pg Final Mean Cell Hgb Conc 12/25/2019 34.2 32.0 - 36.0 g/dL Final Red Cell Dist Width 12/25/2019 14.7* 11.5 - 14.5 % Final Platelet Count 12/25/2019 225 150 - 400 10*3/uL Final Differential Type 12/25/2019 Automated Diff Final Neutrophil 12/25/2019 63 % Final Lymphocyte 12/25/2019 29 % Final Monocyte 12/25/2019 6 % Final Eosinophil 12/25/2019 1 % Final Basophil 12/25/2019 1 % Final Abs Neutrophil 12/25/2019 5.64 1.8 - 7.0 10*3/uL Final Abs Lymphocyte 12/25/2019 2.64 1.2 - 4.0 10*3/uL Final Abs Monocyte 12/25/2019 0.58 0 - 0.8 10*3/uL Final Abs Eosinophil 12/25/2019 0.13 0 - 0.5 10*3/uL Final Abs Basophil 12/25/2019 0.08 0 - 0.2 10*3/uL Final Nucleated Red Blood Cells 12/25/2019 0 0 - 0 /100 Final Albumin 12/25/2019 4.2 3.5 - 5.2 g/dL Final Bilirubin, Total 12/25/2019 0.4 <1.2 mg/dL Final Calcium 12/25/2019 9.9 8.6 - 10.0 mg/dL Final Chloride 12/25/2019 99 98 - 107 mmol/L Final Creatinine 12/25/2019 1.59* 0.50 - 0.90 mg/dL Final Glucose 12/25/2019 159* 70 - 140 mg/dL Final Alkaline Phosphatase 12/25/2019 64 35 - 104 U/L Final Potassium 12/25/2019 4.6 3.4 - 5.1 mmol/L Final Total Protein 12/25/2019 6.9 6.4 - 8.3 g/dL Final Sodium 12/25/2019 135* 136 - 145 mmol/L Final AST/SGO 12/25/2019 24 <32 U/L Final Blood Urea Nitrogen 12/25/2019 22* 6 - 20 mg/dL Final Osmolality, [place]ueroa 12/25/2019 287 275 - 300 mosm/kg Final BUN/Cre Ratio 12/25/2019 14 Final Bicarbonate 12/25/2019 22 22 - 29 mmol/L Final ALT/SGP 12/25/2019 22 <33 U/L Final Anion Gap 12/25/2019 14 8 - 15 mmol/L Final GFR Non 2009 CDK-* 12/25/2019 36* >60 mL/min/1.73m2 Final GFR 2009 CKD-EPI 12/25/2019 42* >60 mL/min/1.73m2 Final TSH 12/25/2019 21.060* 0.270 - 4.200 u[IU]/mL Final Office Visit on 12/04/2019 Component Date Value Ref Range Status White Blood Cell 12/04/2019 7.8 4 - 10 10*3/uL Final Red Blood Cell 12/04/2019 3.99* 4.1 - 5.3 10*6/uL Final Hemoglobin 12/04/2019 13.6 11.5 - 15.5 g/dL Final Hematocrit 12/04/2019 40.0 36 - 45 % Final Mean Cell Volume 12/04/2019 100.4* 80 - 96 fL Final Mean Cell Hemoglobin 12/04/2019 34.2* 27 - 33 pg Final Mean Cell Hgb Conc 12/04/2019 34.0 32.0 - 36.0 g/dL Final Red Cell Dist Width 12/04/2019 14.5 11.5 - 14.5 % Final Platelet Count 12/04/2019 212 150 - 400 10*3/uL Final Differential Type 12/04/2019 Automated Diff Final Neutrophil 12/04/2019 67 % Final Lymphocyte 12/04/2019 24 % Final Monocyte 12/04/2019 6 % Final Eosinophil 12/04/2019 2 % Final Basophil 12/04/2019 1 % Final Abs Neutrophil 12/04/2019 5.18 1.8 - 7.0 10*3/uL Final Abs Lymphocyte 12/04/2019 1.88 1.2 - 4.0 10*3/uL Final Abs Monocyte 12/04/2019 0.50 0 - 0.8 10*3/uL Final Abs Eosinophil 12/04/2019 0.13 0 - 0.5 10*3/uL Final Abs Basophil 12/04/2019 0.08 0 - 0.2 10*3/uL Final Nucleated Red Blood Cells 12/04/2019 0 0 - 0 /100 Final Albumin 12/04/2019 4.3 3.5 - 5.2 g/dL Final Bilirubin, Total 12/04/2019 0.3 <1.2 mg/dL Final Calcium 12/04/2019 9.5 8.6 - 10.0 mg/dL Final Chloride 12/04/2019 99 98 - 107 mmol/L Final Creatinine 12/04/2019 1.31* 0.50 - 0.90 mg/dL Final Glucose 12/04/2019 192* 70 - 140 mg/dL Final Alkaline Phosphatase 12/04/2019 71 35 - 104 U/L Final Potassium 12/04/2019 4.1 3.4 - 5.1 mmol/L Final Total Protein 12/04/2019 6.8 6.4 - 8.3 g/dL Final Sodium 12/04/2019 133* 136 - 145 mmol/L Final AST/SGO 12/04/2019 21 <32 U/L Final Blood Urea Nitrogen 12/04/2019 12 6 - 20 mg/dL Final Osmolality, [place] 12/04/2019 281 275 - 300 mosm/kg Final BUN/Cre Ratio 12/04/2019 9 Final Bicarbonate 12/04/2019 25 22 - 29 mmol/L Final ALT/SGP 12/04/2019 20 <33 U/L Final Anion Gap 12/04/2019 9 8 - 15 mmol/L Final GFR Non 2008 CDK-* 12/04/2019 46* >60 mL/min/1.73m2 Final GFR 2008 CKD-EPI 12/04/2019 53* >60 mL/min/1.73m2 Final TSH 12/04/2019 33.720* 0.270 - 4.200 u[IU]/mL Final ] Assessment: Patient with stage IV small cell lung cancer s/p chemotherapy and radiation to t he brain. We will treat with tecentrig today. She is slightly hypercalcemic and I have told her to hold her vitamin D. Her blood pressure improved some I have told her to hold her anti-hypertensives and contact her PCP. She may not need them. Her TSH is elevated. She may be becoming hypothyroid on tecentrig. She i s scheduled for repeat CT scans and bone scan on . Plan: RTC 01/23/20 for labs ov and tecentrig. documented in this encounter Nursing Notes * Claritza Herring RN - 01/02/2020 1:00 PM EST TREATMENT ADMINISTRATION NOTE: Sugey Garvey presents to infusion for Cycle 6, Day 1, of tecentriq . Suzie gee seen in clinic by team. See Oncology Nursing Assessment flowsheet for shayne ts assessment.PIV initiated without incident. PIV flushed easily and blood return was confirmed before, during, and after treatment. Reviewed lab work with Filemon Cooper/ Dr. Rios. Ok to proceed with treatment. Dr. Rios down to infusion to see patient. Patient instructed to hold at home v itamin D. Ok to discharge home. Patient tolerated infusion well. Following infusion, PIV discontinued per carter col. VS stable, and as noted below. Patient encouraged to call with any question s or concerns and aware of 24 hour on-call service.AVS provided with next appoin tment date and time. Patient discharged home, accompanied by self. Visit Vitals BP 102/72 Pulse (!) 102 Temp 36.9 C (98.5 F) (Oral) Resp 12 Wt 77.6 kg (171 lb) LMP (LMP Unknown) SpO2 98% Comment: ra BMI 30.11 kg/m * Renetta Gibson RN - 01/02/2020 1:00 PM EST This nurse was alerted of low blood pressure and elevated HR via machine. Lyndsey nt currently denying any Sx's and stated that she does take a blood pressure med and took this am. Manual BP 90/68 And HR 100 radial. aware of above. documented in this encounter Plan of Treatment Care Team Description Date Type Specialty Kameron Rios MD [address] [place] [address] [phone] 01/21/2020 Office Visit Hematology and Onco logy Pavan Redmond NP [address] [place] [address] 01/26/2020 Office Visit Orthopedic Surgery Kameron Rios MD [address] [place] [address] [phone] 02/11/2020 Office Visit Hematology and Onco logy 02/23/2020 Appointment Radiology Corey Moore MD [address] [place] [address] 02/23/2020 Office Visit Radiation Oncology Kameron Rios MD [address] [place] [address] 03/03/2020 Office Visit Hematology and Onco logy [...] Date/Time Associated Diag nosis CBC AND DIFFERENTIAL STAT 01/02/2020 Small denae l lung cancer 12:57 PM EST TSH STAT 01/02/2020 Small cell lung cancer 12:57 PM EST COMPREHENSIVE METABOLIC STAT 01/02/2020 Small cell lung cancer PANEL 12:57 PM EST documented in this encounter Results * CBC and differential (01/02/2020 12:57 PM EST) White Blood 9.9 4 - 10 10*3/uL [facility] Clin Pathology Red Blood Cell 3.66 (L) 4.1 - 5.3 10*6/uL [facility] Clin Pathology Hemoglobin 12.5 11.5 - 15.5 g/dL [facility] Clin Pathology Hematocrit 36.5 36 - 45 % [facility] Pathology Mean Cell 99.7 (H) 80 - 96 fL [facility] Volume [facility] Clin Pathology Mean Cell 34.2 (H) 27 - 33 pg [facility] Hemoglobin [facility] Clin Pathology Mean Cell Hgb 34.3 32.0 - 36.0 g/dL [facility] Clin Pathology Red Cell Dist 14.8 (H) 11.5 - 14.5 % [facility] Width [facility] Clin Pathology Platelet Count 251 150 - 400 10*3/uL [facility] Clin Pathology Differential Automated Diff [facility] Type [facility] Clin Pathology Neutrophil 62 % [facility] Clin Pathology Lymphocyte 29 % [facility] Clin Pathology Monocyte 7 % [facility] Clin Pathology Eosinophil 1 % [facility] Clin Pathology Basophil 1 % [facility] Clin Pathology Abs Neutrophil 6.14 1.8 - 7.0 10*3/uL [facility] Pathology Abs Lymphocyte 2.92 1.2 - 4.0 10*3/uL [facility] Clin Pathology Abs Monocyte 0.69 0 - 0.8 10*3/uL [facility] Clin Pathology Abs Eosinophil 0.11 0 - 0.5 10*3/uL [facility] Clin Pathology Abs Basophil 0.07 0 - 0.2 10*3/uL [facility] Clin Pathology Nucleated Red 0 0 - 0 /100{WBCs} [facility] Blood Cells [facility] Clin Pathology Specimen EDTA Whole Blood Performing Organization Address [facility] [place] [facility] one Number [facility] CL[facility] [address], [place] [address] PATHOLOGY [facility] [address] [place], [place] [address] Clin Pathology * Comprehensive metabolic panel (01/02/2020 12:57 PM EST) Albumin 4.4 3.5 - 5.2 g/dL [facility] CLINICAL PATHOLOGY Bilirubin, 0.4 <1.2 mg/dL [facility] Total CLINICAL PATHOLOGY Calcium 10.6 (H) 8.6 - 10.0 mg/dL [facility] CLINICAL PATHOLOGY Chloride 95 (L) 98 - 107 mmol/L [facility] PATHOLOGY Creatinine 1.60 (H) 0.50 - 0.90 mg/dL [facility] CLINICAL PATHOLOGY Glucose 150 (H) 70 - 140 mg/dL [facility] PATHOLOGY Alkaline 64 35 - 104 U/L [facility] Phosphatase CLINICAL PATHOLOGY Potassium 4.7 3.4 - 5.1 mmol/L [facility] PATHOLOGY Total Protein 7.0 6.4 - 8.3 g/dL [facility] PATHOLOGY Sodium 131 (L) 136 - 145 mmol/L [facility] CLINICAL PATHOLOGY AST/SGO 24 <32 U/L [facility] PATHOLOGY Blood Urea 22 (H) 6 - 20 mg/dL [facility] Nitrogen CLINICAL PATHOLOGY Osmolality, [place] 279 275 - 300 mosm/kg [facility] PATHOLOGY BUN/Cre Ratio 14 [facility] PATH[facility] Bicarbonate 25 22 - 29 mmol/L [facility] PATHOLOGY ALT/SGP 21 <33 U/L [facility] PATHOLOGY Anion Gap 11 8 - 15 mmol/L [facility] PATHOLOGY GFR Non 36 (L) >60 mL/min/1.73m2 [facility] 2008 CLINICAL CDK-EPI PATHOLOGY GFR 42 (L) >60 mL/min/1.73m2 [facility] 2008 CLINICAL CKD-EPI PATHOLOGY Specimen Plasma Performing Organization Address [facility] one Number [facility] [address], [place] [address] PATHOLOGY * TSH (01/02/2020 12:57 PM EST) TSH 9.160 (H) 0.270 - 4.200 [facility] u[IU]/mL CLINICAL PATHOLOGY Specimen Plasma Performing Organization Address [facility] one Number [facility] [address], [place] [address] PATHOLOGY documented in this encounter Visit Diagnoses Diagnosis Small cell lung cancer - Primary Malignant neoplasm of bronchus and lung , unspecified site documented in this encounter Administered Medications Action Date Dose Rate Site Medication Order MAR Action 01/02/2020 3:06 PM EST 1,200 mg 500 mL/hr atezolizumab (TECENTRIQ) 1,200 mg in New Bag sodium chloride 0.9 % 250 mL chemo infusion 1,200 mg, Intravenous, Administer over 30 Minutes, Once, Sun01/02/20 at 1415, For 1 dose, First dose to be administered over 60 minutes. All subsequent doses administered over 30 minutes. Only compatible with NaCl 0.9 %., documented in this encounter
--- OUTSIDE RECORDS SUMMARY | 2020-04-12 15:09 | CCD | Summary of Care ---
Author Author [facility] Organization [facility] Address Unknown Phone Unavailable Care Team Providers Care Back Tender Cylinder Name Role Phone Yeny oJiner PCP Unavailable Reason for Referral * Diagnostic Radiology (Routine) Referred By Contact Referred To Contact Status Reason Specialty Diagnoses / Procedures Filemon Cooper PA [address] [place] [address] Email: [email or web address] Authorized Radiology Diagnoses Small cell lung cancer P rocedures CT Abdomen Pelvis with Contrast * Diagnostic Radiology (Routine) Referred By Contact Referred To Contact Status Reason Specialty Diagnoses / Procedures Filemon Cooper PA [address] [place] [address] Email: [email or web address] Authorized Radiology Diagnoses Small cell lung cancer P rocedures CT Thorax with Contrast Reason for Visit * Diagnostic Radiology (Routine) Referred By Contact Referred To Contact Status Reason Specialty Diagnoses / Procedures Filemon Cooper PA [address] [place] [address] Email: [email or web address] Authorized Radiology Diagnoses Small cell lung cancer P rocedures CT Abdomen Pelvis with Contrast Encounter Details Care Team Description Date Type Department Small cell lung cancer 01/12/[address] SCAN [facility] Encounter [address] [facility] [address] [place] [address] Allergies Comments Active Allergy Reactions Severity Noted [...] Appointment Radiology Corey Moore MD [address] [place] [address] [phone] 01/19/2020 Office Visit Radiation Oncology Kameron Rios MD [address] [place], [place] [id number] 01/21/2020 Office Visit Hematology and Onco Kameron Salinas MD [address] [place] [address] [phone] 02/11/2020 Office Visit Hematology and Onco Kameron Salinas MD [address] [place] [address] [phone] 03/03/2020 Office Visit Hematology and Onco logy Date/Time Name Type Priority Associated Diag noses 01/12/2020 12:[address] Thorax with Contrast Imaging Routine Small cell lung cancer Order Schedule Name Type Priority Associated Diag noses As Needed for 1 Occurrences starting until 01/12/2020 CT Thorax with Contrast Imaging Routine Small cell lung cancer Health Maintenance [...] Name Priority Date/Time Associated Diag nosis CT ABDOMEN PELVIS WITH Routine 01/12/2020 Small c ell lung cancer CONTRAST 38153 12:05 PM EST documented in this encounter Results * CT Abdomen Pelvis with Contrast (01/12/2020 12:05 PM EST) Specimen Narrative Performed At PROCEDURE INFORMATION: [facility] Exam: CT Abdomen And Pelvis With Contra st Exam date and time: 01/12/2020 11:53 AM Age: 54 years old Clinical indication: Malignant neoplasm of unspecified part of unspecified bronchus or lung; Condition or disease; Cancer; Follow-up oncological assessment; Additional info: Reassessme nt of disease progression TECHNIQUE: Imaging protocol: Computed tomography o f the abdomen and pelvis with intravenous contrast. Radiation optimization: All CT scans at this facility use at least one of these dose optimization techniques: automated exposure control; mA and/or kV adjustment per patient size (includes t argeted exams where dose is matched to clinical indication); or iterative dinorah nstruction. Contrast material: OMNIPAQUE 300; Contr ast volume: 100 ml; Contrast route: INTRAVENOUS (IV); Other contrast: Oral, omnipaque 300, 90 0; COMPARISON: 1. CT ABD PELVIS W/O CONTRAST 0 6:[address] ABDOMEN PELVIS WITH CONTRAST [id number] 7 09/26/2019 11:47:13 AM FINDINGS: Heart: Small stable pericardial effusio n. Liver: No mass. Gallbladder and bile ducts: Unremarkabl e. No ductal dilation. Pancreas: Normal. No ductal dilation. Spleen: Normal. No splenomegaly. Adrenal glands: Stable left adrenal mas s estimated at 2.5 cm. Kidneys and ureters: Normal. No hydrone phrosis. Stomach and bowel: No acute findings. N o obstruction. No mucosal thickening. Appendix: No evidence of appendicitis. Intraperitoneal space: Unremarkable. No free air. No significant fluid collection. Vasculature: No abdominal aortic aneury sm. Lymph nodes: No significant adenopathy. Urinary bladder: Unremarkable as visual ized. Reproductive: Unremarkable as visualize d. Bones/joints: Destructive L1 lesion ass ociated with pathologic fracture of the inferior endplate redemonstrated. Soft tissue mass extends into the neur al canal. Stable sclerotic lesions in L2 and L4. Soft tissues: Fat containing umbilical hernia. IMPRESSION: Stable examination, no interval change from 01/07/2020. 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 THIS DOCUMENT HAS BEEN ELECTRONICALLY S IGNED BY HEAVEN LYNN MD Procedure Note Interface, Received Via [address] [employer] - 01/12/2020 2:34 PM EST PROCEDURE INFORMATION: Exam: CT Abdomen And Pelvis With Contrast Exam date and time: 01/12/2020 11:53 AM Age: 54 years old Clinical indication: Malignant neoplasm of unspecified part of unspecified bronchus or lung; Condition or disease; Cancer; Follow-up oncological assessment; Additional info: Reassessment of disease progression TECHNIQUE: Imaging protocol: Computed tomography of the abdomen and pelvis with intravenous contrast. Radiation optimization: All CT scans at this facility use at least one of these dose optimization techniques: automated exposure control; mA and/or kV adjustment per patient size (includes targeted exams where dose is matched to clinical indication); or iterative reconstruction. Contrast material: OMNIPAQUE 300; Contrast volume: 100 ml; Contrast route: INTRAVENOUS (IV); Other contrast: Oral, omnipaque 300, 900; COMPARISON: 1. CT ABD PELVIS W/O CONTRAST 01/07/2020 6:[address] ABDOMEN PELVIS WITH CONTRAST [id number] 09/26/2019 11:47:13 AM FINDINGS: Heart: Small stable pericardial effusion. Liver: [...] intraspinal mass, consider follow-up MRI if indicated. THIS DOCUMENT HAS BEEN ELECTRONICALLY SIGNED BY HEAVEN LYNN MD Performing Organization Address City/State/[facility] Ph one Number [facility] [address] [place] [address] documented in this encounter Visit Diagnoses Diagnosis Small cell lung cancer Malignant neoplasm of bronchus and lung , unspecified site documented in this encounter Administered Medications Action Date Dose Rate Site Medication Order [facility] Action 01/12/2020 11:10 AM EST 20 mLs iohexol (OMNIPAQUE) 240 MG/ML contrast Given 20 mL 20 mL, Oral, IMG once PRN, Contrast, Starting 01/12/20 at 1002, For 1 day, Imaging Protocol, Dilute before administering, Action Date Dose Rate Site Medication Order [facility] 01/12/2020 10:25 AM EST 20 mLs iohexol (OMNIPAQUE) 240 MG/ML contrast Given 20 mL 20 mL, Oral, 1 TIME IMAGING, 01/12/20 at 1015, For 1 dose, Imaging Protocol, Dilute before administering, 01/12/2020 12:15 PM EST 100 mLs iohexol (OMNIPAQUE) 300 MG/ML contrast New Bag injection 100 mL 100 mL, Intravenous, 1 TIME IMAGING, Mo n 01/12/20 at 1045, For 1 dose, Imaging Protocol documented in this encounter
--- OUTSIDE RECORDS SUMMARY | 2020-04-12 15:12 | CCD ---
Author Author [facility] Organization [facility] Address Unknown Phone Unavailable Care Team Providers Care Securities Vault Supervisor Name Role Phone Yuridia UGALDE Unavailable Unavailable Cristiana VAZQUEZ MD Unavailable Unavailable Cristiana VAZQUEZ MD Unavailable Unavailable Cristiana VAZQUEZ MD Unavailable Unavailable Cristiana VAZQUEZ MD Unavailable Unavailable Cristiana VAZQUEZ MD Unavailable Unavailable Cristiana VAZQUEZ MD Unavailable Unavailable Cristiana VAZQUEZ MD Unavailable Unavailable Cristiana VAZQUEZ MD Unavailable Unavailable Cristiana VAZQUEZ MD Unavailable Unavailable Cristiana VAZQUEZ MD Unavailable Unavailable Cristiana VAZQUEZ MD Unavailable Unavailable Cristiana VAZQUEZ MD Unavailable Unavailable Cristiana VAZQUEZ MD Unavailable Unavailable Cristiana VAZQUEZ MD Unavailable Unavailable Cristiana VAZQUEZ MD Unavailable Unavailable Cristiana VAZQUEZ MD Unavailable Unavailable Cristiana VAZQUEZ MD Unavailable Unavailable Cristiana VAZQUEZ MD Unavailable Unavailable Cristiana VAZQUEZ MD Unavailable Unavailable Cristiana VAZQUEZ MD Unavailable Unavailable Cristiana VAZQUEZ MD Unavailable Unavailable Cristiana VAZQUEZ MD Unavailable Unavailable Cristiana VAZQUEZ MD Unavailable Unavailable Cristiana VAZQUEZ MD Unavailable Unavailable Cristiana VAZQUEZ MD Unavailable Unavailable Cristiana VAZQUEZ MD Unavailable Unavailable Cristiana VAZQUEZ MD Unavailable Unavailable Cristiana VAZQUEZ MD Unavailable Unavailable TAYLOR S RUBEN MENSAH Unavailable Unavailable TAYLOR S RUBEN MENSAH Unavailable Unavailable TAYLOR S RUBEN MENSAH Unavailable Unavailable TAYLOR S RUBEN MENSAH Unavailable Unavailable TAYLOR S RUBEN MENSAH Unavailable Unavailable TAYLOR S RUBEN MENSAH Unavailable Unavailable TAYLOR S RUBEN MENSAH Unavailable Unavailable TAYLOR S RUBEN MENSAH Unavailable Unavailable TAYLOR, S RUBEN MENSAH Unavailable Unavailable TAYLOR, S RUBEN MENSAH Unavailable Unavailable TAYLOR, S RUBEN MENSAH Unavailable Unavailable TAYLOR, S RUBEN MENSAH Unavailable Unavailable TAYLOR, S RUBEN MENSAH Unavailable Unavailable TAYLOR, S RUBEN MENSAH Unavailable Unavailable TAYLOR, S RUBEN MENSAH Unavailable Unavailable TAYLOR, S RUBEN MENSAH Unavailable Unavailable TAYLOR, S RUEBN MENSAH Unavailable Unavailable CHIN, S RUBEN MENSAH Unavailable Unavailable TAYLOR, S RUBEN MENSAH Unavailable Unavailable TAYLOR, S RUBEN MENSAH Unavailable Unavailable CHIN, S RUBEN MENSAH Unavailable Unavailable TAYLOR, S RUBEN MENSAH Unavailable Unavailable TAYLOR, S RUBEN MENSAH Unavailable Unavailable TAYLOR, S RUBEN MENSAH Unavailable Unavailable TAYLOR, S RUBEN MENSAH Unavailable Unavailable TAYLOR, S RUBEN MENSAH Unavailable Unavailable TAYLOR, S RUBEN MENSAH Unavailable Unavailable TAYLOR S RUBEN MENSAH Unavailable Unavailable TAYLOR, S RUBEN MENSAH Unavailable Unavailable TAYLOR S RUBEN MENSAH Unavailable Unavailable TAYLOR S RUBEN MENSAH Unavailable Unavailable TAYLOR S RUBEN MENSAH Unavailable Unavailable TAYLOR S RUBEN MENSAH Unavailable Unavailable TAYLOR S RBUEN MENSAH Unavailable Unavailable TAYLOR, S RUBEN MENSAH Unavailable Unavailable TAYLOR S RUBEN MENSAH Unavailable Unavailable TAYLOR S RUBEN MENSAH Unavailable Unavailable TAYLOR, S RUBEN MENSAH Unavailable Unavailable TAYLOR S RUBEN MENSAH Unavailable Unavailable TAYLOR S RUBEN MENSAH Unavailable Unavailable TAYLOR S RUBEN MENSAH Unavailable Unavailable TAYLOR S RUBEN MENSAH Unavailable Unavailable TAYLOR S RUBEN MENSAH Unavailable Unavailable TAYLOR S RUBEN MENSAH Unavailable Unavailable TAYLOR S RUBEN MENSAH Unavailable Unavailable TAYLOR S RUBEN MENSAH Unavailable Unavailable TAYLOR S RUBEN MENSAH Unavailable Unavailable TAYLOR S RUBEN MENSAH Unavailable Unavailable Cristiana VAZQUEZ MD Unavailable Unavailable TAYLOR S RUBEN MENSAH Unavailable Unavailable TAYLOR S RUBEN MENSAH Unavailable Unavailable TAYLOR S RUBEN MENSAH Unavailable Unavailable TAYLOR S RUBEN MENSAH Unavailable Unavailable TAYLOR S RUBEN MENSAH Unavailable Unavailable TAYLOR S RUBEN MENSAH Unavailable Unavailable Scooby CHANEL . Unavailable Unavailable KAELA TSAI Unavailable Unavailable KENNY MCDERMOTT MD Unavailable Unavailable KENNY MCDERMOTT MD Unavailable Unavailable KENNY MCDERMOTT MD Unavailable Unavailable KENNY MCDERMOTT MD Unavailable Unavailable LINDA NGUYEN MD, PHD Unavailable Unavailabl LINDA Mora MD, PHD Unavailable Unavailabl LINDA Mora MD, PHD Unavailable Unavailabl e NGUYEN, LINDA NUNN MD, PHD Unavailable Unavailabl e NGUYEN, LINDA NUNN MD, PHD Unavailable Unavailabl e NGUYEN, LINDA NUNN MD, PHD Unavailable Unavailabl e NGUYEN, LINDA NUNN MD, PHD Unavailable Unavailabl e NGUYEN, LINDA NUNN MD, PHD Unavailable Unavailabl e NGUYEN, LINDA NUNN MD, PHD Unavailable Unavailabl e NGUYEN, LINDA NUNN MD, PHD Unavailable Unavailabl e NGUYEN, LINDA NUNN MD, PHD Unavailable Unavailabl e NGUYEN, LINDA NUNN MD, PHD Unavailable Unavailabl e NGUYEN, LINDA NUNN MD, PHD Unavailable Unavailabl e NGUYEN, LINDA NUNN MD, PHD Unavailable Unavailabl e NGUYEN, LINDA NUNN MD, PHD Unavailable Unavailabl e NGUYEN, LINDA NUNN MD, PHD Unavailable Unavailabl e NGUYEN, LINDA NUNN MD, PHD Unavailable Unavailabl e NGUYEN, LINDA NUNN MD, PHD Unavailable Unavailabl e NGUYEN, LINDA NUNN MD, PHD Unavailable Unavailabl e NGUYEN, LINDA NUNN MD, PHD Unavailable Unavailabl e NGUYEN, LINDA NUNN MD, PHD Unavailable Unavailabl e NGUYEN, LINDA NUNN MD, PHD Unavailable Unavailabl e NGUYEN, LINDA NUNN MD, PHD Unavailable Unavailabl e NGUYEN, LINDA NUNN MD, PHD Unavailable Unavailabl e NGUYEN, LINDA NUNN MD, PHD Unavailable Unavailabl e NGUYEN, LINDA NUNN MD, PHD Unavailable Unavailabl e NGUYEN, LINDA NUNN MD, PHD Unavailable Unavailabl e NGUYEN, LINDA NUNN MD, PHD Unavailable Unavailabl e NGUYEN, LINDA NUNN MD, PHD Unavailable Unavailabl e NGUYEN, LINDA NUNN MD, PHD Unavailable Unavailabl e NGUYEN, LINDA NUNN MD, PHD Unavailable Unavailabl e NGUYEN, LINDA NUNN MD, PHD Unavailable Unavailabl e NGUYEN, LINDA NUNN MD, PHD Unavailable Unavailabl Rocio Bills MD Unavailable Unavailable Rocio BAUGH MD Unavailable Unavailable Rocio BAUGH MD Unavailable Unavailable Rocio BAUGH MD Unavailable Unavailable PASNICIUC, Rocio MORRIS MD Unavailable Unavailable PASNICIUC, Rocio MORRIS MD Unavailable Unavailable PASNICIUC, Rocio MORRIS MD Unavailable Unavailable PASNICIUC, Rocio MORRIS MD Unavailable Unavailable PASNICIUC, Rocio MORRIS MD Unavailable Unavailable PASNICIUC, Rocio MORRIS MD Unavailable Unavailable PASNICIUC, Rocio MORRIS MD Unavailable Unavailable PASNICIUC, Rocio MORRIS MD Unavailable Unavailable PASNICIUC, Rocio MORRIS MD Unavailable Unavailable PASNICIUC, Rocio MORRIS MD Unavailable Unavailable PASNICIUC, Rocio MORRIS MD Unavailable Unavailable PASNICIUC, Rocio MORRIS MD Unavailable Unavailable PASNICIUC, Rocio MORRIS MD Unavailable Unavailable PASNICIUC, Rocio MORRIS MD Unavailable Unavailable MIX, TERENCE MENSAH Unavailable Unavailable MIX, TERENCE MENSAH Unavailable Unavailable MIX, TERENCE MENSAH Unavailable Unavailable MIX, TREENCE MESNAH Unavailable Unavailable MIX, TERENCE MENSAH Unavailable Unavailable MIX, TERENCE MENSAH Unavailable Unavailable MIX, TERENCE MENSAH Unavailable Unavailable MIX, TERENCE MENSAH Unavailable Unavailable MIX, TERENCE MENSAH Unavailable Unavailable MIX, TERENCE MENSAH Unavailable Unavailable MIX, TERENCE MENSAH Unavailable Unavailable MIX, TERENCE MENSAH Unavailable Unavailable MIX, TERENCE MENSAH Unavailable Unavailable MIX, TERENCE MENSAH Unavailable Unavailable MIX, TERENCE MENSAH Unavailable Unavailable MIX, TERENCE MENSAH Unavailable Unavailable MIX, TERENCE MENSAH Unavailable Unavailable MIX, TERENCE MENSAH Unavailable Unavailable MIX, TERENCE MENSAH Unavailable Unavailable MIX, TERENCE MENSAH Unavailable Unavailable MIX, TERENCE MENSAH Unavailable Unavailable MIX, TERENCE MENSAH Unavailable Unavailable MIX, TERENCE MENSAH Unavailable Unavailable MIX, TERENCE MENSAH Unavailable Unavailable MIX, TERENCE MENSAH Unavailable Unavailable MIX, TERENCE MENSAH Unavailable Unavailable MIX, TERENCE MENSAH Unavailable Unavailable MIX, TERENCE MENSAH Unavailable Unavailable MIX, TERENCE MENSAH Unavailable Unavailable MIX, TERENCE MENSAH Unavailable Unavailable MIX, TERENCE MENSAH Unavailable Unavailable MIX, TERENCE MENSAH Unavailable Unavailable MIX, TERENCE MENSAH Unavailable Unavailable MIX, TERENCE MENSAH Unavailable Unavailable MIX, TERENCE MENSAH Unavailable Unavailable MIX, TERENCE MENSAH Unavailable Unavailable SCHNANI DANIELS MD Unavailable Unavailable SCHNANI DANIELS MD Unavailable Unavailable SCHNANI DANIELS MD Unavailable Unavailable SCHNANI DANIELS MD Unavailable Unavailable SCHNANI DANIELS MD Unavailable Unavailable SCHNANI DANIELS MD Unavailable Unavailable NANI OJEDA MD Unavailable Unavailable NANI OJEDA MD Unavailable Unavailable SCHNANI DANIELS MD Unavailable Unavailable SCHNANI DANIELS MD Unavailable Unavailable SCHNANI DANIELS MD Unavailable Unavailable SCHICKER, LAUREE CHRIS MD Unavailable Unavailable SCHNANI DANIELS MD Unavailable Unavailable SCHNANI DANIELS MD Unavailable Unavailable SCHNANI DANIELS MD Unavailable Unavailable SCHNANI DANIELS MD Unavailable Unavailable SCHNANI DANIELS MD Unavailable Unavailable NANI OJEDA MD Unavailable Unavailable NANI OJEDA MD Unavailable Unavailable SCHNANI DANIELS MD Unavailable Unavailable SCHICKNANI DAMON MD Unavailable Unavailable SCHNANI DANIELS MD Unavailable Unavailable SCHNANI DANIELS MD Unavailable Unavailable SCHNANI DANIELS MD Unavailable Unavailable NANI OJEDA MD Unavailable Unavailable NANI OJEDA MD Unavailable Unavailable NANI OJEDA MD Unavailable Unavailable NANI OJEDA MD Unavailable Unavailable NANI OJEDA MD Unavailable Unavailable NANI OJEDA MD Unavailable Unavailable NANI OJEDA MD Unavailable Unavailable NANI OJEDA MD Unavailable Unavailable NANI OJEDA MD Unavailable Unavailable NANI OJEDA MD Unavailable Unavailable NANI OJEDA MD Unavailable Unavailable NANI OJEDA MD Unavailable Unavailable NANI OJEDA MD Unavailable Unavailable KINZA KAISER MD Unavailable Unavailable KINZA KAISER MD Unavailable Unavailable KINZA KAISER MD Unavailable Unavailable KINZA KAISER MD Unavailable Unavailable KINZA KAISER MD Unavailable Unavailable KINZA KAISER MD Unavailable Unavailable KINZA KAISER MD Unavailable Unavailable KINZA KAISER MD Unavailable Unavailable KINZA KAISER MD Unavailable Unavailable KINZA KAISER MD Unavailable Unavailable KINZA KAISER MD Unavailable Unavailable KINZA KAISER MD Unavailable Unavailable KINZA KAISER MD Unavailable Unavailable KINZA KAISER MD Unavailable Unavailable KINZA KAISER MD Unavailable Unavailable KINZA KAISER MD Unavailable Unavailable KINZA KAISER MD Unavailable Unavailable KINZA KAISER MD Unavailable Unavailable KINZA KAISER MD Unavailable Unavailable KINZA KAISER MD Unavailable Unavailable KINZA KAISER MD Unavailable Unavailable KINZA KAISER MD Unavailable Unavailable KINZA KAISER MD Unavailable Unavailable KINZA KAISER MD Unavailable Unavailable KINZA KAISER MD Unavailable Unavailable KAISERKINZA MEADE MD Unavailable Unavailable KAISERKINZA MEADE ALFREDCASSY MENSAH Unavailable Unavailable KAISERKINZA MEADE ALFREDCASSY MENSAH Unavailable Unavailable KAISERKINZA MEADE ALFREDCASSY MENSAH Unavailable Unavailable KAISERKINZA MEADE ALFREDCASSY MENSAH Unavailable Unavailable KAISERKINZA MEADE ALFREDCASSY MENSAH Unavailable Unavailable KAISERKINZA MEADE ALFREDCASSY MENSAH Unavailable Unavailable KAISERKINZA MEADE ALFREDCASSY MENSAH Unavailable Unavailable KAISERKINZA MEADE ALFREDCASSY MENSAH Unavailable Unavailable KAISERKINZA MEADE ALFREDCASSY MENSAH Unavailable Unavailable KAISERKINZA MEADE ALFREDCASSY MENSAH Unavailable Unavailable KAISERKINZA MEADE ALFREDCASSY MENSAH Unavailable Unavailable KAISERKINZA MEADE ALFREDCASSY MENSAH Unavailable Unavailable KAISERKINZA MEDAE ALFREDCASSY MENSAH Unavailable Unavailable KAISERKINZA MEADE ALFRED MD Unavailable Unavailable KAISERKINZA MEADE ALFREDCASSY MENSAH Unavailable Unavailable KAISERKINZA MEADE ALFREDCASSY MENSAH Unavailable Unavailable KAISERKINZA MEADE ALFREDCASSY MENSAH Unavailable Unavailable KAISERKINZA MEADE ALFREDCASSY MENSAH Unavailable Unavailable KAISERKINZA MEADE ALFREDCASSY MENSAH Unavailable Unavailable KAISERKINZA MEADE ALFREDCASSY MENSAH Unavailable Unavailable Aloi, M Pavan SHEET PILE HAMMER OPERATOR Unavailable Unavailable Aloi, M Pavan SHEET PILE HAMMER OPERATOR Unavailable Unavailable Aloi, M Pavan SHEET PILE HAMMER OPERATOR Unavailable Unavailable Aloi, M Pavan SHEET PILE HAMMER OPERATOR Unavailable Unavailable Aloi, M Pavan SHEET PILE HAMMER OPERATOR Unavailable Unavailable Aloi, M Pavan SHEET PILE HAMMER OPERATOR Unavailable Unavailable Aloi, M Pavan SHEET PILE HAMMER OPERATOR Unavailable Unavailable Aloi, M Pavan SHEET PILE HAMMER OPERATOR Unavailable Unavailable Aloi, M Pavan SHEET PILE HAMMER OPERATOR Unavailable Unavailable Aloi, M Pavan SHEET PILE HAMMER OPERATOR Unavailable Unavailable Aloi, M Pavan SHEET PILE HAMMER OPERATOR Unavailable Unavailable Aloi, M Pavan SHEET PILE HAMMER OPERATOR Unavailable Unavailable Aloi, M Pavan SHEET PILE HAMMER OPERATOR Unavailable Unavailable Aloi, M Pavan SHEET PILE HAMMER OPERATOR Unavailable Unavailable Aloi, M Pavan SHEET PILE HAMMER OPERATOR Unavailable Unavailable Aloi, M Pavan SHEET PILE HAMMER OPERATOR Unavailable Unavailable Aloi, M Pavan SHEET PILE HAMMER OPERATOR Unavailable Unavailable Aloi, M Pavan SHEET PILE HAMMER OPERATOR Unavailable Unavailable Aloi, M Pavan SHEET PILE HAMMER OPERATOR Unavailable Unavailable Aloi, M Pavan SHEET PILE HAMMER OPERATOR Unavailable Unavailable Aloi, M Pavan SHEET PILE HAMMER OPERATOR Unavailable Unavailable Aloi, M Pavan SHEET PILE HAMMER OPERATOR Unavailable Unavailable Aloi, M Pavan SHEET PILE HAMMER OPERATOR Unavailable Unavailable Aloi, M Pavan SHEET PILE HAMMER OPERATOR Unavailable Unavailable Aloi, M Pavan SHEET PILE HAMMER OPERATOR Unavailable Unavailable Aloi, M Pavan SHEET PILE HAMMER OPERATOR Unavailable Unavailable Aloi, M Pavan SHEET PILE HAMMER OPERATOR Unavailable Unavailable Aloi, M Pavan SHEET PILE HAMMER OPERATOR Unavailable Unavailable Aloi, M Pavan SHEET PILE HAMMER OPERATOR Unavailable Unavailable Aloi, M Pavan SHEET PILE HAMMER OPERATOR Unavailable Unavailable Aloi, M Pavan SHEET PILE HAMMER OPERATOR Unavailable Unavailable Aloi, M Pavan SHEET PILE HAMMER OPERATOR Unavailable Unavailable Aloi, M Pavan SHEET PILE HAMMER OPERATOR Unavailable Unavailable Aloi, M Pavan SHEET PILE HAMMER OPERATOR Unavailable Unavailable Aloi, M Pavan SHEET PILE HAMMER OPERATOR Unavailable Unavailable Aloi, M Pavan SHEET PILE HAMMER OPERATOR Unavailable Unavailable Aloi, M Pavan SHEET PILE HAMMER OPERATOR Unavailable Unavailable Jd Pelaez MD Unavailable Unavailable Jd Pelaez MD Unavailable Unavailable Jd Pelaez MD Unavailable Unavailable Jd Pelaez MD Unavailable Unavailable Jd Pelaez MD Unavailable Unavailable Jd Pelaez MD Unavailable Unavailable Jd Pelaez MD Unavailable Unavailable Jd Pelaez MD Unavailable Unavailable Jd Pelaez MD Unavailable Unavailable Jd Peleaz MD Unavailable Unavailable Jd Pelaez MD Unavailable Unavailable Jd Pelaez MD Unavailable Unavailable Jd Pealez MD Unavailable Unavailable Jd Pelaez MD Unavailable Unavailable Jd Pelaez MD Unavailable Unavailable Jd Pelaez MD Unavailable Unavailable Jd Pelaez MD Unavailable Unavailable Jd Pelaez MD Unavailable Unavailable Jd Pelaez MD Unavailable Unavailable Jd Pelaez MD Unavailable Unavailable Jd Pelaez MD Unavailable Unavailable Jd Pelaez MD Unavailable Unavailable Jd Pelaez MD Unavailable Unavailable Jd Pelaez MD Unavailable Unavailable Jd Pelaez MD Unavailable Unavailable Jd Pelaez MD Unavailable Unavailable Jd Pelaez MD Unavailable Unavailable Jd Pelaez MD Unavailable Unavailable Jd Pelaez MD Unavailable Unavailable Jd Pelaez MD Unavailable Unavailable Jd Pelaez MD Unavailable Unavailable Jd Pelaez MD Unavailable Unavailable Jd Pelaez MD Unavailable Unavailable Jd Pelaez MD Unavailable Unavailable Jd Pelaez MD Unavailable Unavailable Jd Pelaez MD Unavailable Unavailable Jd Pelaez MD Unavailable Unavailable Jd Pelaez MD Unavailable Unavailable Jd Pelaez MD Unavailable Unavailable Jd Pelaez MD Unavailable Unavailable Jd Pelaez MD Unavailable Unavailable Jd Pelaez MD Unavailable Unavailable Jd Pelaez MD Unavailable Unavailable Jd Pelaez MD Unavailable Unavailable Jd Pelaez MD Unavailable Unavailable Jd Pelaez MD Unavailable Unavailable Jd Pelaez MD Unavailable Unavailable Jd Pelaez MD Unavailable Unavailable Jd Pelaez MD Unavailable Unavailable Jd Pelaez MD Unavailable Unavailable Jd Pelaez MD Unavailable Unavailable Jd Pelaez MD Unavailable Unavailable Jd Pelaez MD Unavailable Unavailable Jd Pelaez MD Unavailable Unavailable Poiesz, J Kameron Unavailable Unavailable Poiesz, J Kameron Unavailable Unavailable Poiesz, J Kameron Unavailable Unavailable Poiesz, J Kameron Unavailable Unavailable Poiesz, J Kameron Unavailable Unavailable Poiesz, J Kameron Unavailable Unavailable Poiesz, J Kameron Unavailable Unavailable Poiesz, J Kameron Unavailable Unavailable Poiesz, J Kameron Unavailable Unavailable Poiesz, J Kameron Unavailable Unavailable Poiesz, J Kameron Unavailable Unavailable Poiesz, J Kameron Unavailable Unavailable Poiesz, J Kameron Unavailable Unavailable Poiesz, J Kameron Unavailable Unavailable Poiesz, J Kameron Unavailable Unavailable Poiesz, J Kameron Unavailable Unavailable Poiesz, J Kameron Unavailable Unavailable Poiesz, J Kameron Unavailable Unavailable Poiesz, J Kameron Unavailable Unavailable Poiesz, J Kameron Unavailable Unavailable Poiesz, J Kameron Unavailable Unavailable Poiesz, J Kameron Unavailable Unavailable Poiesz, J Kameron Unavailable Unavailable Poiesz, J Kameron Unavailable Unavailable Poiesz, J Kameron Unavailable Unavailable Poiesz, J Kameron Unavailable Unavailable Poiesz, J Kameron Unavailable Unavailable Poiesz, J Kameron Unavailable Unavailable Poiesz, J Kameron Unavailable Unavailable Poiesz, J Kameron Unavailable Unavailable Poiesz, J Kameron Unavailable Unavailable Poiesz, J Kameron Unavailable Unavailable Poiesz, J Kameron Unavailable Unavailable Poiesz, J Kameron Unavailable Unavailable Poiesz, J Kameron Unavailable Unavailable Poiesz, J Kameron Unavailable Unavailable Poiesz, J Kameron Unavailable Unavailable Poiesz, J Kameron Unavailable Unavailable Poiesz, J Kameron Unavailable Unavailable Poiesz, J Kameron Unavailable Unavailable Poiesz, J Kameron Unavailable Unavailable Poiesz, J Kameron Unavailable Unavailable Poiesz, J Kameron Unavailable Unavailable Poiesz, J Kameron Unavailable Unavailable Poiesz, J Kameron Unavailable Unavailable Poiesz, J Kameron Unavailable Unavailable Poiesz, J Kameron Unavailable Unavailable Poiesz, J Kameron Unavailable Unavailable Filemon Cooper Unavailable Unavailable Brown, Filemon PA Unavailable Unavailable Brown, Filemon PA Unavailable Unavailable Brown, Filemon PA Unavailable Unavailable Brown, Filemon PA Unavailable Unavailable Brown, Filemon PA Unavailable Unavailable Brown, Filemon PA Unavailable Unavailable Brown, Filemon PA Unavailable Unavailable Brown, Filemon PA Unavailable Unavailable Brown, Filemon PA Unavailable Unavailable Brown, Filemon PA Unavailable Unavailable Brown, Filemon PA Unavailable Unavailable Brown, Filemon PA Unavailable Unavailable Brown, Filemon PA Unavailable Unavailable Brown, Filemon PA Unavailable Unavailable Brown, Filemon PA Unavailable Unavailable Brown, Filemon PA Unavailable Unavailable Brown, Filemon PA Unavailable Unavailable Brown, Filemon PA Unavailable Unavailable Brown, Filemon PA Unavailable Unavailable Brown, Filemon PA Unavailable Unavailable Brown, Filemon PA Unavailable Unavailable Brown, Filemon PA Unavailable Unavailable Brown, Filemon PA Unavailable Unavailable Brown, Filemon PA Unavailable Unavailable Brown, Filemon PA Unavailable Unavailable Brown, Filemon PA Unavailable Unavailable Brown, Filemon PA Unavailable Unavailable Brown, Filemon PA Unavailable Unavailable Brown, Filemon PA Unavailable Unavailable Brown, Filemon PA Unavailable Unavailable Brown, Filemon PA Unavailable Unavailable Brown, Filemon PA Unavailable Unavailable Brown, Filemon PA Unavailable Unavailable Brown, Filemon PA Unavailable Unavailable Brown, Filemon PA Unavailable Unavailable Brown, Filemon PA Unavailable Unavailable Brown, Filemon PA Unavailable Unavailable Brown, Filemon PA Unavailable Unavailable Brown, Filemon PA Unavailable Unavailable Brown, Filemon PA Unavailable Unavailable Brown, Filemon PA Unavailable Unavailable Brown, Filemon PA Unavailable Unavailable Brown, Filemon PA Unavailable Unavailable Brown, Filemon PA Unavailable Unavailable Brown, Filemon PA Unavailable Unavailable Brown, Filemon PA Unavailable Unavailable Brown, Filemon PA Unavailable Unavailable Re-disclosure Warning The records that you are about to access may contain information from federally-assisted alcohol or drug abuse programs. If such information is present, then the following federally mandated warning applies: This information has been disclosed to you from records protected by federal confidentiality rules (42 CFR part 2). The federal rules prohibit you from making any further disclosure of this information unless further disclosure is expressly permitted by the written consent of the person to whom it pertains or as otherwise permitted by 42 CFR part 2. A general authorization for the release of medical or other information is NOT sufficient for this purpose. The Federal rules restrict any use of the information to criminally investigate or prosecute any alcohol or drug abuse patient.The records that you are about to access may contain highly sensitive health information, the redisclosure of which is protected by Article 27-F of the [facility] Public Health law. If you continue you may have access to information: Regarding HIV / AIDS; Provided by facilities licensed or operated by the [facility] Office of Mental Health; or Provided by the [facility] Office for People With Developmental Disabilities. If such information is present, then the following [facility] mandated warning applies: This information has been disclosed to you from confidential records which are protected by state law. State law prohibits you from making any further disclosure of this information without the specific written consent of the person to whom it pertains, or as otherwise permitted by law. Any unauthorized further disclosure in violation of state law may result in a fine or long-term sentence or both. A general authorization for the release of medical or other information is NOT sufficient authorization for further disc losure. Allergies and Adverse Reactions Type Description Substance Reaction Status Data Source(s ) Drug Class GADOLINIUM DERIVATIVES GADOLINIUM DERIVATIVES [facility] DRUG INGREDI POLLEN EXTRACT POLLEN EXTRACT [facility] Family History Family Member Name Family Member Gender Family Member Status Date o f Status Description Data Source(s) Unknown Unknown Problem MEDENT ([facility] Unknown Male Problem MEDENT ([facility]) Encounters Encounter Providers Location Date Indications Data Source(s ) Outpatient Attender: Filemon WATSON 04/21/2020 12:00:00 AM [facility] Outpatient Attender: TERENCE MOORE MD 04/20/2020 12:00:00 AM [facility] Outpatient Attender: EDOUARD NGUYEN MD, PHD 04/16/2020 12:00 :00 AM [facility] Unknown [address] [facility] [address] 04/09/2020 12:00:00 AM EST eCW1 ([facility]) Outpatient Attender: ALEXANDRA BAUGH MD [id number] 12:00:00 AM EST Encounter for palliative care [facility] Encounter for palliative care Outpatient Attender: Kameron Rios [id number] 12:00:00 AM EST - 03/31/2020 02:22:16 PM EST Secondary [facility] [facility] Secondary malignant neoplasm of brain Outpatient Attender: Kameron RiosReferrer: Kameron Rios 03/24/2020 12:00:00 AM EST Malignant neoplasm of unspecified part o f unspecified bronchus or lung [facility] Malignant neoplasm of unspecified part o f unspecified bronchus or lung Outpatient Attender: [facility]EN VAZQUEZ [facility] tender: EDOUARD NGUYEN MD, PHDAdmitter: EDOUARD NGUYEN MD, PHDReferrer: TERENCE MOORE MD [id number] 05:38:29 AM EST - 03/17/2020 12:30:00 PM EST Secondary malignant neoplasm of brain [facility] Secondary malignant neoplasm of brain Patient discharged. Outpatient Referrer: EDOUARD NGUYEN MD, PHD 0 03/17/2020 12:00:00 AM EST - 03/17/2020 11:59:00 PM EST [facility] Out[place] [address] [facility] [facility] [address] 03/11/2020 12:00:00 AM EST W1 ([facility]) Outpatient Attender: ALEXANDRA BAUGH MD [id number] 12:00:00 AM EST - 03/09/2020 08:24:46 AM EST Encounter for palliative care [facility] Encounter for palliative care Outpatient Attender: Kameron Rios 03/03/2020 12:00:00 AM [facility] Outpatient Attender: Kameron Rios [id number] 020 12:00:00 AM EST - 02/26/2020 12:12:58 PM EST Malignant neoplasm of unspecified part o f unspecified bronchus or lung [facility] Malignant neoplasm of unspecified part o f unspecified bronchus or lung Outpatient Attender: Kameron Rios 02/26/2020 12:00:00 AM [facility] Outpatient Referrer: Pavan MANUEL 02/24/2020 12: 00:00 AM EST Unspecified fracture of first lumbar vertebra, initial encounter for closed fracture [facility] Unspecified fracture of first lumbar solis tebra, initial encounter for closed fracture Outpatient Attender: TERENCE MOORE MDReferrer: Kameron GrubbsA-OSRONC 02/24/2020 12:00:00 AM EST [facility] follow Outpatient Referrer: TERENCE MOORE MD 02/23/2020 12:00 :00 AM EST Malignant neoplasm of unspecified part of unspecified bronchus or lung [facility] Malignant neoplasm of unspecified part o f unspecified bronchus or lung Outpatient Attender: TERENCE MOORE MD 02/23/2020 12:00:00 AM [facility] Outpatient Attender: TERENCE MOORE MD 02/18/2020 12:00:00 AM [facility] Outpatient Attender: Kameron Rios 02/11/2020 12:00:00 AM [facility] Outpatient Attender: Kameron Rios 02/05/2020 12:00:00 AM [facility] Outpatient Attender: ALEXANDRA BAUGH MD [id number] 12:00:00 AM EST - 02/05/2020 08:30:26 AM EST Encounter for palliative care [facility] Encounter for palliative care Outpatient [address] [facility] [facility], [facility] [address] 01/28/2020 12:00:00 AM EST W1 ([facility]) Outpatient Referrer: Pavan MANUEL 01/26/2020 12: 00:00 AM EST Other fracture of first lumbar vertebra, initial encounter for closed fracture [facility] Other fracture of first lumbar vertebra, initial encounter for closed fracture Outpatient Attender: Pavan MANUEL [id number] 01/26/2020 12: 00:00 AM EST Unspecified fracture of first lumbar vertebra, initial encounter for closed fracture [facility] Unspecified fracture of first lumbar solis tebra, initial encounter for closed fracture Outpatient Attender: TERENCE GrubbsA-RONCACTR 01/21/2020 05:04:04 PM [facility] Outpatient Attender: Kameron Brown-ONCCACTR 020 12:00:00 AM EST - 01/21/2020 12:16:47 PM EST Malignant neoplasm of unspecified part o f unspecified bronchus or lung [facility] Malignant neoplasm of unspecified part o f unspecified bronchus or lung Outpatient Attender: Kameron Rios 01/21/2020 12:00:00 AM [facility] Outpatient Attender: TERENCE MOORE MDReferrer: Kameron Brown-RONCACTMariah 01/19/2020 12:00:00 AM EST - 01/19/2020 04:11:02 PM EST [facility] follow Outpatient Referrer: TERENCE MOORE MD 01/19/2020 12:00 :00 AM EST Secondary malignant neoplasm of brain [facility] Secondary malignant neoplasm of brain Outpatient Attender: TERENCE MOORE MDReferrer: Kameron Rios [id number] 01/16/2020 12:00:00 AM EST on treat [facility] on treat Outpatient Attender: Kameron Rios 01/15/2020 12:00:00 AM [facility] Outpatient Referrer: Filemon WATSON 020 12:00:00 AM EST - 01/12/2020 11:59:00 PM [facility] Outpatient Attender: Filemon Cooper PAReferrer: Filemon WATSON 01/12/2020 12:00:00 AM EST - 01/13/2020 12:00:00 AM EST Malignant neoplasm of unspecified part of unspecified bronchus or lung [facility] Malignant neoplasm of unspecified part o f unspecified bronchus or lung Outpatient Attender: TERENCE MOORE MDReferrer: Kameron GrubbsA-RONCACTMariah 01/12/2020 12:00:00 AM EST - 01/12/2020 03:32:22 PM EST [facility] follow Outpatient Attender: TERENCE MOORE MDReferrer: Kameron GrubbsA-RONCACTMariah 01/12/2020 12:00:00 AM EST - 01/12/2020 03:34:46 PM EST [facility] follow Outpatient Referrer: Filemon WATSON 01/12/2020 12:00 :00 AM EST Malignant neoplasm of unspecified part of unspecified bronchus or lung [facility] Malignant neoplasm of unspecified part o f unspecified bronchus or lung Unknown [address] [facility] [address] 01/07/2020 12:00:00 AM EST eCW1 ([facility]) Outpatient Attender: Kameron GrubbsA-ONCCACTR 020 12:00:00 AM EST - 01/02/2020 03:54:15 PM EST Malignant neoplasm of unspecified part o f unspecified bronchus or lung [facility] Malignant neoplasm of unspecified part o f unspecified bronchus or lung Out[place] [address] [facility] [address] 01/01/2020 12:00:00 AM EST eCW1 ([facility]) Outpatient Attender: Kameron Brown-ONCCACTR 020 12:00:00 AM EDT - 12/25/2019 01:28:31 PM EDT Malignant neoplasm of unspecified part o f unspecified bronchus or lung [facility] Malignant neoplasm of unspecified part o f unspecified bronchus or lung Unknown [address] [facility] [address] 12/05/2019 12:00:00 AM EDT eCW1 ([facility]) Outpatient Attender: Filemon WATSON [id number] 12/04/2019 12:00 :00 AM EDT Malignant neoplasm of unspecified part of unspecified bronchus or lung [facility] Malignant neoplasm of unspecified part o f unspecified bronchus or lung Outpatient Attender: TERENCE MOORE MDReferrer: Kameron Rios [id number] 11/19/2019 12:00:00 AM EDT - 11/19/2019 12:36:16 PM EDT Malignant neoplasm of unspecified part of unspecified bronchus or lung [facility] Malignant neoplasm of unspecified part o f unspecified bronchus or lung Outpatient Attender: Kameron GrubbsA-ONCCACTR 020 12:00:00 AM EDT - 11/13/2019 02:11:25 PM EDT Malignant neoplasm of unspecified part o f unspecified bronchus or lung [facility] Malignant neoplasm of unspecified part o f unspecified bronchus or lung Outpatient Referrer: Kameron Rios 11/13/2019 12:00 :00 AM EDT Malignant neoplasm of unspecified part of unspecified bronchus or lung [facility] Malignant neoplasm of unspecified part o f unspecified bronchus or lung Outpatient Attender: Kameron Brown-ONCCACTR 020 12:00:00 AM EDT - 10/23/2019 02:30:20 PM EDT Malignant neoplasm of unspecified part o f unspecified bronchus or lung [facility] Malignant neoplasm of unspecified part o f unspecified bronchus or lung Outpatient Attender: TERENCE MOORE MD [id number] 10/21/2019 08:57:01 AM EDT [facility] Outpatient Attender: LINSEY GrubbsA-MLTCACTR 0 10/16/2019 09:36:00 AM EDT [facility] Outpatient Attender: CHRIS OJEDA MDReferrer: Kameron wade [id number] 10/15/2019 12:00:00 AM EDT treat [facility] treat Outpatient Attender: ALFRED KAISER MDReferrer: Kameron Rios [id number] 10/08/2019 12:00:00 AM EDT on treat [facility] on treat Outpatient Attender: TERENCE MOORE MD 10/08/2019 12:00:00 AM EDT [facility] Outpatient Attender: Kameron Rios [id number] 020 12:00:00 AM EDT - 10/02/2019 02:15:08 PM EDT Malignant neoplasm of unspecified part o f unspecified bronchus or lung [facility] Malignant neoplasm of unspecified part o f unspecified bronchus or lung Outpatient Referrer: Kameron Rios 09/27/2019 12:00:00 AM EDT [facility] Outpatient Referrer: Kameron Rios 09/26/2019 12:00 :00 AM EDT Malignant (primary) neoplasm, unspecified [facility] Malignant (primary) neoplasm, unspecifie d Outpatient Attender: LINSEY DESAI [id number] 0 09/24/2019 03:18:40 PM EDT [facility] Outpatient Attender: TERENCE MOORE MDReferrer: Kameron Rios [id number] 09/24/2019 12:00:00 AM EDT - 09/24/2019 03:29:36 PM EDT Malignant (primary) neoplasm, unspecified [facility] Malignant (primary) neoplasm, unspecifie d Outpatient Attender: TERENCE MOORE MDReferrer: Kameron Rios [id number] 09/24/2019 12:00:00 AM EDT - 09/24/2019 05:03:20 PM EDT follow up [facility] follow up Outpatient Referrer: KENNY MCDERMOTT MD 09/24/2019 12:0 0:00 AM EDT [facility] Outpatient Attender: TERENCE MOORE MDReferrer: Kameron Rios 07A-RONCACTMariah 09/15/2019 12:00:00 AM EDT - 09/16/2019 09:27:17 AM EDT Malignant (primary) neoplasm, unspecified [facility] Malignant (primary) neoplasm, unspecifie d Outpatient Referrer: IRIS CHANEL . 09/15/2019 12:0 0:00 AM EDT Malignant (primary) neoplasm, unspecified [facility] Malignant (primary) neoplasm, unspecifie d Outpatient Attender: Kameron GrubbsA-ONCCACTR 020 12:00:00 AM EDT - 09/11/2019 10:14:07 AM EDT Malignant (primary) neoplasm, unspecified [facility] Malignant (primary) neoplasm, unspecifie d Outpatient [address] [facility] [address] 09/09/2019 12:00:00 AM EDT eCW1 ([facility]) Outpatient Attender: Kameron Brown-ONCCACTR 020 12:00:00 AM EDT - 08/20/2019 10:11:19 AM EDT Malignant (primary) neoplasm, unspecified [facility] Malignant (primary) neoplasm, unspecifie d Outpatient Referrer: KENNY MCDERMOTT MD 0 12:00:00 AM EDT Malignant (primary) neoplasm, unspecified [facility] Malignant (primary) neoplasm, unspecifie d Outpatient Attender: Kameron Brown-ONCCACTR 020 12:00:00 AM EDT - 07/23/2019 03:43:20 PM EDT Malignant (primary) neoplasm, unspecified [facility] Malignant (primary) neoplasm, unspecifie d Outpatient Attender: ALEXANDRA BAUGH MDReferrer: Arlet MCDERMOTT MD [id number] 07/23/2019 12:00:00 AM EDT - 07/23/2019 01:20:29 PM ED T Encounter for palliative care [facility] Encounter for palliative care Outpatient Attender: TERENCE MOORE MDReferrer: Kameron Brown-RONCACTR 07/16/2019 12:00:00 AM EDT - 07/16/2019 04:34:48 PM EDT Malignant (primary) neoplasm, unspecified [facility] Malignant (primary) neoplasm, unspecifie d Outpatient Referrer: TERENCE MOORE MD 07/14/2019 12:00 :00 AM EDT Malignant (primary) neoplasm, unspecified [facility] Malignant (primary) neoplasm, unspecifie d [facility] [place] [address] [facility] [address] 07/14/2019 12:00:00 AM EDT eCW1 ([facility]) [facility] [place] [address] [facility] [address] 07/08/2019 12:00:00 AM EDT eCW1 ([facility]) Outpatient 07/04/2019 12:00:00 AM EDT [facility] Outpatient 07/03/2019 12:00:00 AM T [facility] Outpatient Attender: Kameron Brown-ONCCACTMariah 020 12:00:00 AM EDT - 07/03/2019 08:55:10 AM EDT Malignant (primary) neoplasm, unspecified [facility] Malignant (primary) neoplasm, unspecifie d Outpatient Attender: TERENCE MOORE MDReferrer: Kameron Brown-OSJO ANN 06/17/2019 12:00:00 AM EDT Malignant (primary) neoplasm, unspecified [facility] Malignant (primary) neoplasm, unspecifie d Outpatient Referrer: TERENCE MOORE MD 06/16/2019 12:00 :00 AM EDT Malignant (primary) neoplasm, unspecified [facility] Malignant (primary) neoplasm, unspecifie d Outpatient 06/13/2019 12:00:00 AM T [facility] Outpatient 06/12/2019 05:57:00 AM EDT [facility] Outpatient 06/12/2019 12:00:00 AM T [facility] Outpatient Attender: Kameron Brown-ONCCACTR 020 12:00:00 AM EDT - 06/11/2019 04:16:22 PM EDT Malignant (primary) neoplasm, unspecified [facility] Malignant (primary) neoplasm, unspecifie d Outpatient Attender: TERENCE Brown-OSUGOC 05/27/2019 12:00 :00 AM EDT Malignant (primary) neoplasm, unspecified [facility] Malignant (primary) neoplasm, unspecifie d [facility] [place] [facility] [address] 05/27/2019 12:00:00 AM EDT eCW1 ([facility]) Outpatient 05/25/2019 10:17:00 AM EDT [facility] [place] [facility] [address] 05/23/2019 12:00:00 AM EDT eCW1 ([facility]) Outpatient Attender: Spike Pelaez MD [id number] 05/21/2019 06:08:01 PM EDT [facility] Outpatient Referrer: Kameron Rios 05/19/2019 12:00:00 AM [facility] Outpatient Referrer: Kameron Rios 05/19/2019 12:00:00 AM [facility] Inpatient Attender: Kameron Chacon tter: Kameron RiosReferrer: Kameron Rios 05/17/2019 12:00:00 AM EDT superior vena cava syndrome, lung CA, needs chemo [facility] superior vena cava syndrome, lung CA, ne eds chemo Inpatient Attender: Kameron Chacon tter: Kameron RiosReferrer: KAELA TSAI [id number] 05/16/2019 12:00:00 AM EDT - 05/20/2019 03:53:00 PM EDT Malignant (primary) neoplasm, unspecified [facility] Malignant (primary) neoplasm, unspecifie d Patient discharged. [facility] [place] [facility] [address] 04/08/2019 12:00:00 AM EST eCW1 ([facility]) [facility] [place] [facility] [address] 02/28/2019 12:00:00 AM EST eCW1 ([facility]) Medications Medication Brand Name Start Date Product Form Dose Route Admi nistrative Instructions Pharmacy Instructions Status Indications Reaction Description Data Source(s) Magnesium Oxide 400 MG Oral Tablet Magnesium Oxide (MA G-OX) tablet 400 mg Magnesium Oxide (MAG-OX) tablet 400 mg 03/31/2020 02:15:00 PM EST 4 00 mg Oral completed 400 mg, Oral, Once, Sun at 1415, For 1 dose [facility] Medication administered onsite potassium chloride (K-DUR) dissolvable tablet 20 mEq 86047-6 [id number] 03/31/2020 02:15:00 PM EST 20 meq Oral completed 20 mEq, Oral, Once, Sun03/31/20 at 1415, For 1 dose
May be dissolved in water for patients with a G-Tube or unable to swallow. If concern for clogging G-Tube, may contact Pharmacy to switch formulation to a powder packet.
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
Monitor for hypotension.Infuse through a 0.22 micron filter.
[facility] Small cell lung cancer Secondary malignant neoplasm of brain an d spinal cord Medication administered onsite CISplatin (PLATINOL) 106 mg in sodium ch loride 0.9 % 500 mL (0.212 mg/mL) chemo infusion 03/31/2020 11:45:00 AM EST 60 mg/m2 Intravenous completed Small cell lung cancerSecondary malignant neoplasm of brain and spinal cord 106 mg (rounded from 105.6 mg = 60 mg/m2 1.76 m2 Treatment plan recorded BSA), Intravenous, Administer over 60 Minutes, Once, Sun03/31/20 at 1145, For 1 dose [facility] Small cell lung cancer Secondary malignant neoplasm of brain an d spinal cord Medication administered onsite Dexamethasone 4 MG Oral Tablet dexamethasone (DECADRON ) tablet 8 mg dexamethasone (DECADRON) tablet 8 mg 03/31/2020 09:45:00 AM EST 8 mg Oral completed Small cell lung cancerSecondary malignan t neoplasm of brain and spinal cord 8 mg, Oral, Once, Sun03/31/20 at 0945, For 1 dose
Give prior to chemotherapy.
[facility] Small cell lung cancer Secondary malignant neoplasm of brain an d spinal cord Medication administered onsite Ondansetron 8 MG Oral Tablet ondansetron (ZOFRAN) tabl et 16 mg ondansetron (ZOFRAN) tablet 16 mg 03/31/2020 09:45:00 AM EST 16 mg Oral completed Small cell lung cancerSecondary malignant neoplasm of brain and spinal cord 16 mg, Oral, Once, Sun03/31/20 at 0945, For 1 dose
Give prior to chemotherapy
[facility] Small cell lung cancer Secondary malignant neoplasm of brain an d spinal cord Medication administered onsite Lorazepam 0.5 MG Oral Tablet LORazepam (ATIVAN) tablet 0.5 mg LORazepam (ATIVAN) tablet 0.5 mg 03/31/2020 09:45:00 AM EST 0.5 mg Oral completed Small cell lung cancerSecondary malignant neoplasm of brain and spinal cord 0.5 mg, Oral, Once, Sun03/31/20 at 0945, For 1 dose
Give prior to chemotherapy
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
Give 30 minutes before chemotherapy over 20-30 minutes.
[facility] Small cell lung cancer Secondary malignant neoplasm of brain an d spinal cord Medication administered onsite sodium chloride 0.9 % 1,000 mL bolus 03/31/2020 09:45:00 A M EST Intravenous completed Small cell lung cancerSecondary malignant neoplasm of brain and spinal cord Intravenous, at 500 mL/hr, O nce, Sun03/31/20 at 0945, For 1 dose
Infuse at 500 mL/hr until urine parameters are met.If after 1000 mL infused and urine parameters are not met, contact .
[facility] Small cell lung cancer Secondary malignant neoplasm of brain an d spinal cord Medication administered onsite Metoprolol Tartrate 50 MG Oral Tablet metoprolol (LOPR ESSOR) tablet 50 mg metoprolol (LOPRESSOR) tablet 50 mg 03/31/2020 08:45:00 AM EST 50 mg Oral active 50 mg, Oral, Once, Sun03/31/20 at 0845, For 1 dose [facility] Medication administered onsite Ondansetron 8 MG Oral Tablet Ondansetron HCl 8 MG Oral Tablet (ZOFRAN) Ondansetron HCl 8 MG Oral Tablet (ZOFRAN) 03/31/2020 12:00:00 AM EST 8 mg Oral active Small cell lung cancerSecondary malignant neoplasm of brain and spinal cord Take 1 tablet by mouth every 8 (eight) hours as needed for Nausea or Vomiting [facility] Small cell lung cancer Secondary malignant neoplasm of brain an d spinal cord Dexamethasone 4 MG Oral Tablet Dexamethasone 4 MG Oral Tablet (DECADRON) Dexamethasone 4 MG Oral Tablet (DECADRON) 03/31/2020 12:00:00 AM EST 8 mg Oral active Take 2 tablets by mouth daily with breakfast for 2 daysTake on 04/01 and 04/02 (days 2 and 3 of chemo) 30 minutes before chemo pill etoposide [facility] Etoposide 50 MG Oral Capsule Etoposide 50 MG Oral Caps ule (VEPESID) Etoposide 50 MG Oral Capsule (VEPESID) 03/31/2020 12:00:00 AM EST 150 mg Oral active Take 3 capsules by mouth Two Times Daily for 2 daysTake on and 04/02 (days 2 and 3 of chemo) [facility] Magnesium Oxide 400 MG Oral Capsule Magnesium Oxide 400 MG O ral Capsule 03/31/2020 12:00:00 AM EST 400 mg Oral active Take 400 mg by mouth daily [facility] 0.5 mg 03/10/2020 12:00:00 AM EST tablet 45 TAKE ONE TABLET BY MOUTH EVERY 8 HOURS NEEDED FOR ANXIETY MAXIMUM DAILY DOSE = 3 TAKE ONE TABLET BY MOUTH EVERY 8 HOURS NEEDED FOR ANXIETY MAXIMUM DAILY DOSE = 3 SOLD: 03/13/2020 [facility] Lorazepam 0.5 MG Oral Tablet LORazepam 0.5 MG Oral Tab let (Ativan) LORazepam 0.5 MG Oral Tablet (Ativan) 03/09/2020 12:00:00 AM EST 0.5 mg Oral active Take 1 tablet by mouth every 8 (eight) hours as needed for Anxiety, Max Daily Dose: 1.5 mg [facility] gadobutrol (GADAVIST) contrast injection 7 mL [id number] 10:00:00 AM EST 0.1 mL/kg Intravenous completed 7 mL (ro unded from 7.35 mL = 0.1 mL/kg 73.5 kg), Intravenous, 1 TIME IMAGING, 02/23/20 at 1000, For 1 dose, Imaging Protocol
Do not mix or administer in the same IV line with other medications.
[facility] Medication administered onsite Lorazepam 0.5 MG Oral Tablet LORazepam 0.5 MG Oral Tab let (Ativan) LORazepam 0.5 MG Oral Tablet (Ativan) 02/04/2020 12:00:00 AM EST 0.5 mg Oral active Take 1 tablet by mouth every 6 (six) hours as needed for Anxiety (or nausea) for up to 10 days, Max Daily Dose: 2 mg [facility] 0.5 mg 02/04/2020 12:00:00 AM EST tablet 30 TAKE ONE TABLET BY MOUTH EVERY 6 HOURS NEEDED FOR ANXIETY OR NAUSEA * MAXIMUM DAILY DOSE = 4 TAKE ONE TABLET BY MOUTH EVERY 6 HOURS NEEDED FOR ANXIETY OR NAUSEA * MAXIMUM DAILY DOSE = 4 SOLD: 02/06/2020 [facility] 3.5-10,000-1 mg/mL-unit/mL-% 01/28/2020 12:00:00 AM EST solu tion 10 INSTILL 4 DROPS INTO AFFECTED EAR THREE TIMES A DAY FOR 10 DAYS INSTILL 4 DROPS INTO AFFECTED EAR THREE TIMES A DAY FOR 10 DAYS SOLD: 01/29/2020 [facility] 90 mcg/actuation 01/28/2020 12:00:00 AM EST HFA aerosol inha ler 18 INHALE ONE PUFF BY MOUTH EVERY 4 HOURS NEEDED FOR SHORTNESS OF BREATH INHALE ONE PUFF BY MOUTH EVERY 4 HOURS NEEDED FOR SHORTNESS OF BREATH SOLD: 01/29/2020 [facility] Cortisporin 3.5-96952-0 UNK 01/28/2020 12:00:00 AM EST 4.0 {drops_into_affected_ear} active Cortis porin 3.5-68056-4 eCW1 ([facility]) 200 ACTUAT Albuterol 0.09 MG/ACTUAT Mete red Dose Inhaler [Ventolin] Ventolin HFA 108 (90 Base) MCG/ACT Ventolin HFA 108 (90 Base) MCG/ACT 01/28/2020 12:00:00 AM EST 1.0 {puff_as_needed} active [place] HFA 108 (90 Base) MCG/ACT eCW1 ([facility]) 200 ACTUAT Albuterol 0.09 MG/ACTUAT Mete red Dose Inhaler [Ventolin] Ventolin HFA 108 (90 Base) MCG/ACT Ventolin HFA 108 (90 Base) MCG/ACT 01/28/2020 12:00:00 AM EST 1.0 {puff_as_needed} active [place] HFA 108 (90 Base) MCG/ACT eCW1 ([facility]) Cortisporin 3.5-44253-6 UNK 01/28/2020 12:00:00 AM EST 4.0 {drops_into_affected_ear} suspended Oniel isporin 3.5-16384-5 eCW1 ([facility]) 200 ACTUAT Albuterol 0.09 MG/ACTUAT Mete red Dose Inhaler [Ventolin] Ventolin HFA 108 (90 Base) MCG/ACT Ventolin HFA 108 (90 Base) MCG/ACT 01/28/2020 12:00:00 AM EST 1.0 {puff_as_needed} active [place] HFA 108 (90 Base) MCG/ACT eCW1 ([facility]) Cortisporin 3.5-78658-0 UNK 01/28/2020 12:00:00 AM EST 4.0 {drops_into_affected_ear} suspended Oniel isporin 3.5-09965-9 eCW1 ([facility]) gadobutrol (GADAVIST) contrast injection 7.5 mL [id number] 01/19/2020 02:15:00 PM EST 0.1 mL/kg Intravenous completed 7.5 mL (rounded from 7.76 mL = 0.1 mL/kg 77.6 kg), Intravenous, 1 TIME IMAGING, Sun01/19/20 at 1415, For 1 dose, Imaging Protocol
Do not mix or administer in the same IV line with other medi cations.
[facility] Medication administered onsite iohexol (OMNIPAQUE) 300 MG/ML contrast injection 100 mL [id number] 01/12/2020 10:45:00 AM EST 100 mL Intravenous completed 100 mL, Intravenous, 1 TIME IMAGING, Sun01/12/20 at 1045, For 1 dose, Imaging Protocol [facility] [facility] Medication administered onsite iohexol (OMNIPAQUE) 240 MG/ML contrast 20 mL [id number] 10:15:00 AM EST 20 mL Oral completed 20 mL, Oral, 1 TIME IMAGING, Sun01/12/20 at 1015, For 1 dose, Imaging Protocol
Dilute before administering
[facility] Medication administered onsite iohexol (OMNIPAQUE) 240 MG/ML contrast 20 mL [id number] 10:02:51 AM EST 20 mL Oral active 20 mL, Oral, IMG once PRN, Contrast, Starting Sun01/12/20 at 1002, For 1 day, Imaging Protocol
Dilute before administering
[facility] Medication administered onsite TC-99M medronate (Tc-MDP) [address]-5 01/12/2020 09:45:00 AM EST Intravenous completed Intravenous, Once, Sun01/12/20 at 0945, For 1 dose, Imaging Protocol [facility] Medication administered onsite 5-325 mg 01/12/2020 12:00:00 AM EST tablet 30 TAKE 1 TABLET BY MOUTH EVERY 4 HOURS NEEDED FOR PAIN MAXIMUM DAILY DOSE = 6 TABLETS TAKE 1 TABLET BY MOUTH EVERY 4 HOURS NEEDED FOR PAIN MAXIMUM DAILY DOSE = 6 TABLETS SOLD: 01/12/2020 [facility] Acetaminophen 325 MG / Hydrocodone Hector trate 5 MG Oral Tablet HYDROcodone- Acetaminophen 5-325 MG Oral Tablet (LORTAB) HYDROcodone-Acetaminophen 5-325 MG Oral Tablet (LORTAB) 01/12/2020 12:00:00 AM EST 1 {tbl} Oral aborted Take 1 tablet by mouth every 4 (four) hours as needed for Pain, Max Daily Dose: 6 tablets [facility] 300 mg 01/08/2020 12:00:00 AM EST tablet 30 TAKE ONE TABLET BY MOUTH EVERY DAY TAKE ONE TABLET BY MOUTH EVERY DAY SOLD: 02/13/2020 [facility] 300 mg 01/08/2020 12:00:00 AM EST tablet 30 TAKE ONE TABLET BY MOUTH EVERY DAY TAKE ONE TABLET BY MOUTH EVERY DAY SOLD: 01/12/2020 [facility] Metoprolol Tartrate 50 MG Oral Tablet Metoprolol Tartrate 12:00:00 AM EST active [facility] ([facility] atorvastatin 20 MG Oral Tablet Atorvastatin Calcium 01/08/2020 1 2:00:00 AM EST active [facility] ( [facility]) Lisinopril 10 MG Oral Tablet Lisinopril 01/08/2020 12:00:00 AM EST ORAL active [facility] ([facility]) Aspirin 81 MG Delayed Release Oral Tablet Aspirin 81 2019 12:00:00 AM EST active [facility] ( [facility]) Acetaminophen 325 MG / Hydrocodone Bitartrate 5 MG Ora l Tablet Hydrocodone-Acetaminophen 01/08/2020 12:00:00 AM EST ORAL active [facility] ([facility]) Metformin hydrochloride 1000 MG Oral Tablet Metformin HCL 01/08/2020 12:00:00 AM EST active [facility] Allopurinol 300 MG Oral Tablet Allopurinol 01/08/2020 12:00:00 AM EST active MED[facility] ([facility]) cefdinir 300 MG Oral Capsule Cefdinir 01/08/2020 12:00:00 AM EST active [facility] ([facility]) Glucosamine Chondroitin 1500 Complex 01/08/2020 12:00:00 AM EST active [facility] ([facility]) Ascorbic Acid 60 MG / Beta Carotene 5000 UNT / Copper Sulfate 40 MG / dl-alpha tocopheryl acetate 30 UNT / Sodium Selenite 0.04 MG / Zinc Oxide 40 MG Oral Tablet Multi Vitamin And Minerals 01/08/2020 12:00:00 AM EST active [facility] ([facility]) Levothyroxine Sodium 0.125 MG Oral Tablet Levothyroxine Sodi um 01/08/2020 12:00:00 AM EST active M EDENT ([facility]) Tecentriq Tecentriq 01/08/2020 12:00:00 AM EST act james MEDENT ([facility]) 300 mg 01/08/2020 12:00:00 AM EST tablet 30 TAKE ONE TABLET BY MOUTH EVERY DAY TAKE ONE TABLET BY MOUTH EVERY DAY SOLD: 03/13/2020 [facility] Metformin hydrochloride 1000 MG Oral Tablet 1,000 mg METFORM IN HCL 01/07/2020 12:00:00 AM EST tablet 60 TAKE ONE TABLET BY MOUTH TWICE A DAY WITH MEALS TAKE ONE TABLET BY MOUTH TWICE A DAY WITH MEALS SOLD: 03/13/2020 [facility] 5-325 mg 01/07/2020 12:00:00 AM EST tablet 30 TAKE 1-2 TABLETS BY MOUTH EVERY 4-6 HOURS NEEDED FOR PAIN. MAXIMUM DAILY DOSE = 12 TABLETS TAKE 1-2 TABLETS BY MOUTH EVERY 4-6 HOURS NEEDED FOR PAIN. MAXIMUM DAILY DOSE = 12 TABLETS SOLD: 01/07/2020 [facility] Metformin hydrochloride 1000 MG Oral Tablet 1,000 mg METFORM IN HCL 01/07/2020 12:00:00 AM EST tablet 60 TAKE ONE TABLET BY MOUTH TWICE A DAY WITH MEALS TAKE ONE TABLET BY MOUTH TWICE A DAY WITH MEALS SOLD: 01/12/2020 [facility] Metformin hydrochloride 1000 MG Oral Tablet 1,000 mg METFORM IN HCL 01/07/2020 12:00:00 AM EST tablet 60 TAKE ONE TABLET BY MOUTH TWICE A DAY WITH MEALS TAKE ONE TABLET BY MOUTH TWICE A DAY WITH MEALS SOLD: 02/13/2020 [facility] 300 mg 01/07/2020 12:00:00 AM EST capsule 20 TAKE ONE CAPSULE BY MOUTH TWICE A DAY TAKE ONE CAPSULE BY MOUTH TWICE A DAY SOLD: 01/07/2020 [facility] atezolizumab (TECENTRIQ) 1,200 mg in sod ium chloride 0.9 % 250 mL chemo infusion 01/02/2020 02:15:00 PM EST 1200 mg Intravenous completed Small cell lung cancer 1,200 mg, Intravenous, Admin ister over 30 Minutes, Once, Sun01/02/20 at 1415, For 1 dose
First dose to be administered over 60 minutes.All subsequent doses administered over 30 minutes.Only compatible with NaCl 0.9 %.
[facility] Small cell lung cancer Medication administered onsite atorvastatin 20 MG Oral Tablet ATORVASTATIN CALCIUM 01/02/2020 1 2:00:00 AM EST tablet 30 TAKE ONE TABLET BY MOUTH EVERY D AY TAKE ONE TABLET BY MOUTH EVERY DAY SOLD: 03/13/2020 [facility] atorvastatin 20 MG Oral Tablet ATORVASTATIN CALCIUM 01/02/2020 1 2:00:00 AM EST tablet 30 TAKE ONE TABLET BY MOUTH EVERY D AY TAKE ONE TABLET BY MOUTH EVERY DAY SOLD: 01/12/2020 [facility] 0.05 % 01/02/2020 12:00:00 AM EST cream 30 APPLY TO RASH ON THIGH TWO TIMES A DAY FOR 10 DAYS APPLY TO RASH ON THIGH TWO TIMES A DAY FOR 10 DAYS RAFIQ [facility] atorvastatin 20 MG Oral Tablet ATORVASTATIN CALCIUM 01/02/2020 1 2:00:00 AM EST tablet 30 TAKE ONE TABLET BY MOUTH EVERY D AY TAKE ONE TABLET BY MOUTH EVERY DAY SOLD: 02/13/2020 [facility] Clobetasol Propionate E 0.05 % Clobetasol Propionate E 0.05 % 01/01/2020 12:00:00 AM EST 1.0 {application} active Clobetasol Propionate E 0.05 % eCW1 ([facility]) atorvastatin 20 MG Oral Tablet Atorvastatin Calcium 20 MG Atorvastatin Calcium 20 MG 01/01/2020 12:00:00 AM EST 1.0 {tablet} activ e Atorvastatin Calcium 20 MG eCW1 ([facility]) atorvastatin 20 MG Oral Tablet Atorvastatin Calcium 20 MG Atorvastatin Calcium 20 MG 01/01/2020 12:00:00 AM EST 1.0 {tablet} activ e Atorvastatin Calcium 20 MG eCW1 ([facility]) Clobetasol Propionate E 0.05 % Clobetasol Propionate E 0.05 % 01/01/2020 12:00:00 AM EST 1.0 {application} active Clobetasol Propionate E 0.05 % eCW1 ([facility]) Clobetasol Propionate E 0.05 % Clobetasol Propionate E 0.05 % 01/01/2020 12:00:00 AM EST 1.0 {application} active Clobetasol Propionate E 0.05 % eCW1 ([facility]) Clobetasol Propionate E 0.05 % Clobetasol Propionate E 0.05 % 01/01/2020 12:00:00 AM EST 1.0 {application} active Clobetasol Propionate E 0.05 % eCW1 ([facility]) atorvastatin 20 MG Oral Tablet Atorvastatin Calcium 20 MG Atorvastatin Calcium 20 MG 01/01/2020 12:00:00 AM EST 1.0 {tablet} activ e Atorvastatin Calcium 20 MG eCW1 ([facility]) atorvastatin 20 MG Oral Tablet Atorvastatin Calcium 20 MG Atorvastatin Calcium 20 MG 01/01/2020 12:00:00 AM EST 1.0 {tablet} activ e Atorvastatin Calcium 20 MG eCW1 ([facility]) atorvastatin 20 MG Oral Tablet Atorvastatin Calcium 20 MG Atorvastatin Calcium 20 MG 01/01/2020 12:00:00 AM EST 1.0 {tablet} activ e Atorvastatin Calcium 20 MG eCW1 ([facility]) Clobetasol Propionate E 0.05 % Clobetasol Propionate E 0.05 % 01/01/2020 12:00:00 AM EST 1.0 {application} active Clobetasol Propionate E 0.05 % eCW1 ([facility]) 125 mcg 12/10/2019 12:00:00 AM EDT tablet 30 TAKE ONE TABLET BY MOUTH EVERY DAY WITH PLAIN WATER ONE HALF HOUR PRIOR TO OTHER MEDS OR FOOD OR BEVERAGES TAKE ONE TABLET BY MOUTH EVERY DAY WITH PLAIN WATER ONE HALF HOUR PRIOR TO OTHER MEDS OR FOOD OR BEVERAGES SOLD: 03/13/2020 [facility] 125 mcg 12/10/2019 12:00:00 AM EDT tablet 30 TAKE ONE TABLET BY MOUTH EVERY DAY WITH PLAIN WATER ONE HALF HOUR PRIOR TO OTHER MEDS OR FOOD OR BEVERAGES TAKE ONE TABLET BY MOUTH EVERY DAY WITH PLAIN WATER ONE HALF HOUR PRIOR TO OTHER MEDS OR FOOD OR BEVERAGES SOLD: 01/12/2020 [facility] 125 mcg 12/10/2019 12:00:00 AM EDT tablet 30 TAKE ONE TABLET BY MOUTH EVERY DAY WITH PLAIN WATER ONE HALF HOUR PRIOR TO OTHER MEDS OR FOOD OR BEVERAGES TAKE ONE TABLET BY MOUTH EVERY DAY WITH PLAIN WATER ONE HALF HOUR PRIOR TO OTHER MEDS OR FOOD OR BEVERAGES SOLD: 02/13/2020 [facility] 125 mcg 12/10/2019 12:00:00 AM EDT tablet 30 TAKE ONE TABLET BY MOUTH EVERY DAY WITH PLAIN WATER ONE HALF HOUR PRIOR TO OTHER MEDS OR FOOD OR BEVERAGES TAKE ONE TABLET BY MOUTH EVERY DAY WITH PLAIN WATER ONE HALF HOUR PRIOR TO OTHER MEDS OR FOOD OR BEVERAGES SOLD: 12/10/2019 [facility] atorvastatin 40 MG Oral Tablet ATORVASTATIN CALCIUM 12/06/2019 1 2:00:00 AM EDT tablet 30 TAKE ONE TABLET BY MOUTH EVERY D AY TAKE ONE TABLET BY MOUTH EVERY DAY SOLD: 12/10/2019 [facility] atezolizumab (TECENTRIQ) 1,200 mg in sod ium chloride 0.9 % 250 mL chemo infusion 12/04/2019 01:30:00 PM EDT 1200 mg Intravenous completed Small cell lung cancer 1,200 mg, Intravenous, Admin ister over 30 Minutes, Once, Judith 12/04/19 at 1330, For 1 dose
First dose to be administered over 60 minutes.All subsequent doses administered over 30 minutes.Only compatible with NaCl 0.9 %.
[facility] Small cell lung cancer Medication administered onsite Levothyroxine Sodium 0.125 MG Oral Table t Levothyroxine Sodium 125 MCG Oral Tablet (SYNTHROID) Levothyroxine Sodium 125 MCG Oral Tablet (SYNTHROID) 12/04/2019 12:00:00 AM EDT 125 ug Oral completed Take 1 tablet by mouth Daily Take with plain water 1/2 hr prior to other meds or food or beverages [facility] Levothyroxine Sodium 0.125 MG Oral Table t Levothyroxine Sodium 125 MCG Oral Tablet (SYNTHROID) Levothyroxine Sodium 125 MCG Oral Tablet (SYNTHROID) 11/25/2019 12:00:00 AM EDT 125 ug Oral aborted Take 1 tablet by mouth Daily Take with plain water 1/2 hr prior to other meds or food or beverages [facility] Levothyroxine Sodium 0.05 MG Oral Tablet Levothyroxine Sodium 50 MCG Oral Tablet (SYNTHROID) Levothyroxine Sodium 50 MCG Oral Tablet (SYNTHROID) 12:00:00 AM EDT 100 ug Oral active Take 2 t ablets by mouth Daily [facility] Levothyroxine Sodium 0.025 MG Oral Table t Levothyroxine Sodium 25 MCG Oral Tablet (SYNTHROID) Levothyroxine Sodium 25 MCG Oral Tablet (SYNTHROID) 11/13/2019 12:00:00 AM EDT 25 ug Oral active Take 1 tablet by mouth Daily [facility] Memantine hydrochloride 10 MG Oral Tablet MEMANTINE HCL 11/01/2019 12:00:00 AM EDT tablet 49 TAKE ONE TABLET BY MOUTH TWO TIMES A DAY TAKE ONE TABLET BY MOUTH TWO TIMES A DAY SOLD: 01/15/2020 [facility] Memantine hydrochloride 10 MG Oral Tablet MEMANTINE HCL 11/01/2019 12:00:00 AM EDT tablet 49 TAKE ONE TABLET BY MOUTH TWO TIMES A DAY TAKE ONE TABLET BY MOUTH TWO TIMES A DAY SOLD: 03/13/2020 [facility] Memantine hydrochloride 10 MG Oral Tablet MEMANTINE HCL 11/01/2019 12:00:00 AM EDT tablet 49 TAKE ONE TABLET BY MOUTH TWO TIMES A DAY TAKE ONE TABLET BY MOUTH TWO TIMES A DAY SOLD: 11/25/2019 [facility] Memantine hydrochloride 10 MG Oral Tablet MEMANTINE HCL 11/01/2019 12:00:00 AM EDT tablet 49 TAKE ONE TABLET BY MOUTH TWO TIMES A DAY TAKE ONE TABLET BY MOUTH TWO TIMES A DAY SOLD: 11/01/2019 [facility] Memantine hydrochloride 10 MG Oral Tablet MEMANTINE HCL 11/01/2019 12:00:00 AM EDT tablet 49 TAKE ONE TABLET BY MOUTH TWO TIMES A DAY TAKE ONE TABLET BY MOUTH TWO TIMES A DAY SOLD: 12/18/2019 [facility] Memantine hydrochloride 10 MG Oral Tablet MEMANTINE HCL 11/01/2019 12:00:00 AM EDT tablet 49 TAKE ONE TABLET BY MOUTH TWO TIMES A DAY TAKE ONE TABLET BY MOUTH TWO TIMES A DAY SOLD: 02/13/2020 [facility] atezolizumab (TECENTRIQ) 1,200 mg in sod ium chloride 0.9 % 250 mL chemo infusion 10/23/2019 01:15:00 PM EDT 1200 mg Intravenous completed Small cell lung cancer 1,200 mg, Intravenous, Admin ister over 30 Minutes, Once, [facility] 10/23/19 at 1315, For 1 dose
First dose to be administered over 60 minutes.All subsequent doses administered over 30 minutes.Only compatible with NaCl 0.9 %.
[facility] Small cell lung cancer Medication administered onsite Dexamethasone 2 MG Oral Tablet Dexamethasone 2 MG Oral Tablet (DECADRON) Dexamethasone 2 MG Oral Tablet (DECADRON) 10/15/2019 12:00:00 AM EDT 2 mg Oral aborted Take 1 tablet by mouth Two times daily with meals Take two times a day for 3 days, then once a day for 3 days. [facility] Dexamethasone 2 MG Oral Tablet Dexamethasone 2 MG Oral Tablet (DECADRON) Dexamethasone 2 MG Oral Tablet (DECADRON) 10/15/2019 12:00:00 AM EDT 2 mg Oral aborted Take 1 tablet by mouth See Admin Instructions Take one pill two times a day for 3 days, then one pill once a day for 3 days. [facility] 50 mg 10/10/2019 12:00:00 AM EDT tablet 60 TAKE ONE TABLET BY MOUTH TWICE A DAY TAKE ONE TABLET BY MOUTH TWICE A DAY SOLD: 03/13/2020 [email or web address] 50 mg 10/10/2019 12:00:00 AM EDT tablet 60 TAKE ONE TABLET BY MOUTH TWICE A DAY TAKE ONE TABLET BY MOUTH TWICE A DAY SOLD: 10/10/2019 [facility] 50 mg 10/10/2019 12:00:00 AM EDT tablet 60 TAKE ONE TABLET BY MOUTH TWICE A DAY TAKE ONE TABLET BY MOUTH TWICE A DAY SOLD: 11/10/2019 [facility] 50 mg 10/10/2019 12:00:00 AM EDT tablet 60 TAKE ONE TABLET BY MOUTH TWICE A DAY TAKE ONE TABLET BY MOUTH TWICE A DAY SOLD: 02/13/2020 [facility] 50 mg 10/10/2019 12:00:00 AM EDT tablet 60 TAKE ONE TABLET BY MOUTH TWICE A DAY TAKE ONE TABLET BY MOUTH TWICE A DAY SOLD: 12/10/2019 [facility] 50 mg 10/10/2019 12:00:00 AM EDT tablet 60 TAKE ONE TABLET BY MOUTH TWICE A DAY TAKE ONE TABLET BY MOUTH TWICE A DAY SOLD: 01/12/2020 [facility] 10 mg 10/06/2019 12:00:00 AM EDT tablet 30 TAKE ONE TABLET BY MOUTH EVERY DAY TAKE ONE TABLET BY MOUTH EVERY DAY SOLD: 10/10/2019 [facility] 10 mg 10/06/2019 12:00:00 AM EDT tablet 30 TAKE ONE TABLET BY MOUTH EVERY DAY TAKE ONE TABLET BY MOUTH EVERY DAY SOLD: 01/12/2020 [facility] 10 mg 10/06/2019 12:00:00 AM EDT tablet 30 TAKE ONE TABLET BY MOUTH EVERY DAY TAKE ONE TABLET BY MOUTH EVERY DAY SOLD: 11/10/2019 [facility] 10 mg 10/06/2019 12:00:00 AM EDT tablet 30 TAKE ONE TABLET BY MOUTH EVERY DAY TAKE ONE TABLET BY MOUTH EVERY DAY SOLD: 12/10/2019 [facility] 10 mg 10/06/2019 12:00:00 AM EDT tablet 30 TAKE ONE TABLET BY MOUTH EVERY DAY TAKE ONE TABLET BY MOUTH EVERY DAY SOLD: 02/13/2020 [facility] 10 mg 10/06/2019 12:00:00 AM EDT tablet 30 TAKE ONE TABLET BY MOUTH EVERY DAY TAKE ONE TABLET BY MOUTH EVERY DAY SOLD: 03/13/2020 [facility] 100 mcg 10/03/2019 12:00:00 AM EDT tablet 30 TAKE ONE TABLET BY MOUTH EVERY DAY TAKE ONE TABLET BY MOUTH EVERY DAY SOLD: 11/10/2019 [facility] 100 mcg 10/03/2019 12:00:00 AM EDT tablet 30 TAKE ONE TABLET BY MOUTH EVERY DAY TAKE ONE TABLET BY MOUTH EVERY DAY SOLD: 10/10/2019 [facility] 5-10 mg 09/29/2019 12:00:00 AM EDT tablets,dose pack 49 5MG A DAY FOR 1 WEEK, THEN 5MG TWO TIMES A DAY FOR 1 WEEK, THEN 15MG A DAY GIVEN IN 5MG AND 10MG DOSES FOR 1 WEEK, THEN 10MG TWICE DAILY 5MG A DAY FOR 1 WEEK, THEN 5MG TWO TIMES A DAY FOR 1 WEEK, THEN 15MG A DAY GIVEN IN 5MG AND 10MG DOSES FOR 1 WEEK, THEN 10MG TWICE DAILY SOLD: 09/30/2019 [facility] Memantine HCl 28 x 5 MG & 21 x 10 MG Oral Tablet (NAME NDA TITRATION PACK) [id number] 09/16/2019 12:00:00 AM EDT abort ed 5 mg/day for =1 week; 5 mg twice daily for =1 week; 15 mg/day given in 5 mg and 10 mg doses for =1 week; then 10 mg twice daily [facility] Memantine hydrochloride 10 MG Oral Table t Memantine HCl 10 MG Oral Tablet (NAMENDA) Memantine HCl 10 MG Oral Tablet (NAMENDA) 09/16/2019 12:00:0 0 AM EDT 10 mg Oral active Take 1 tablet by mouth Two Times Daily [facility] gadobutrol (GADAVIST) contrast injection 7.5 mL [id number] 09/15/2019 04:00:00 PM EDT 0.1 mL/kg Intravenous completed 7.5 mL (rounded from 7.99 mL = 0.1 mL/kg 79.9 kg), Intravenous, 1 TIME IMAGING, 09/15/19 at 1600, For 1 dose, Imaging Protocol
Do not mix or administer in the same IV line with other medic ations.
[facility] Medication administered onsite atezolizumab (TECENTRIQ) 1,200 mg in sod ium chloride 0.9 % 250 mL chemo infusion 09/11/2019 08:45:00 AM EDT 1200 mg Intravenous completed Small cell carcinoma 1,200 mg, Intravenous, Admin ister over 30 Minutes, Once, Judith 09/11/19 at 0845, For 1 dose
First dose to be administered over 60 minutes.All subsequent doses administered over 30 minutes.Only compatible with NaCl 0.9 %.
[facility] Small cell carcinoma Medication administered onsite 10 mg 09/11/2019 12:00:00 AM EDT tablet 30 TAKE ONE TABLET BY MOUTH EVERY DAY TAKE ONE TABLET BY MOUTH EVERY DAY SOLD: 09/11/2019 [facility] 25 mcg 09/11/2019 12:00:00 AM EDT tablet 30 TAKE ONE TABLET BY MOUTH EVERY DAY TAKE ONE TABLET BY MOUTH EVERY DAY SOLD: 09/11/2019 [facility] Levothyroxine Sodium 0.025 MG Oral Table t Levothyroxine Sodium 25 MCG Oral Tablet (Synthroid) Levothyroxine Sodium 25 MCG Oral Tablet (Synthroid) 09/11/2019 12:00:00 AM EDT 25 ug Oral aborted Take 1 tablet by mouth Daily [facility] atezolizumab (TECENTRIQ) 1,200 mg in sod ium chloride 0.9 % 250 mL chemo infusion 08/20/2019 09:15:00 AM EDT 1200 mg Intravenous completed Small cell carcinoma 1,200 mg, Intravenous, Admin ister over 30 Minutes, Once, [facility] 08/20/19 at 0915, For 1 dose
First dose to be administered over 60 minutes.All subsequent doses administered over 30 minutes.Only compatible with NaCl 0.9 %.
[facility] Small cell carcinoma Medication administered onsite iohexol (OMNIPAQUE) 300 MG/ML contrast injection 100 mL [id number] 08/14/2019 03:15:00 PM EDT 100 mL Intravenous completed 100 mL, Intravenous, 1 TIME IMAGING, [facility] 08/14/19 at 1515, For 1 dose, Imaging Protocol [facility] Medication administered onsite iohexol (OMNIPAQUE) 240 MG/ML contrast 20 mL [id number] 12:45:00 PM EDT 20 mL Oral completed 20 mL, Oral, 1 TIME IMAGING, [facility] 08/14/19 at 1245, For 1 dose, Imaging Protocol
Dilute before administering
[facility] Medication administered onsite 50 mg 08/12/2019 12:00:00 AM EDT tablet 60 TAKE ONE TABLET BY MOUTH TWICE A DAY TAKE ONE TABLET BY MOUTH TWICE A DAY SOLD: 09/11/2019 [facility] 50 mg 08/12/2019 12:00:00 AM EDT tablet 60 TAKE ONE TABLET BY MOUTH TWICE A DAY TAKE ONE TABLET BY MOUTH TWICE A DAY SOLD: 08/17/2019 [facility] 10 mg 07/30/2019 12:00:00 AM EDT tablet 30 TAKE ONE TABLET BY MOUTH EVERY 6 HOURS NEEDED FOR 7 DAYS TAKE ONE TABLET BY MOUTH EVERY 6 HOURS A S NEEDED FOR 7 DAYS SOLD: 07/30/2019 [facility] Etoposide 50 MG Oral Capsule Etoposide 50 MG Oral Caps ule (VEPESID) Etoposide 50 MG Oral Capsule (VEPESID) 07/24/2019 12:00:00 AM EDT 150 mg Oral active Take 3 capsules by mouth Two Times Daily for 2 daysDays 2 and 3 of chemo (07/23 and 07/24) [facility] Dexamethasone 4 MG Oral Tablet Dexamethasone 4 MG Oral Tablet (DECADRON) Dexamethasone 4 MG Oral Tablet (DECADRON) 07/24/2019 12:00:00 AM EDT 8 mg Oral active Take 2 tablets by mouth daily with breakfast for 2 daysDays 2 and 3, take 30 minutes prior to chemo in the morning [facility] Ondansetron 8 MG Oral Tablet Ondansetron HCl 8 MG Oral Tablet (ZOFRAN) Ondansetron HCl 8 MG Oral Tablet (ZOFRAN) 07/24/2019 12:00:00 AM EDT 8 mg Oral active Take 1 tablet by mouth Two Times Daily for 2 daysDays 2 and 3, take 30 minute before chemo morning and night [facility] sodium chloride 0.9 % 500 mL with potass ium chloride 10 mEq, magnesium sulfate 8 mEq infusion 07/23/2019 01:45:00 PM EDT Intravenous completed Small cell carcinoma at 500 mL/hr, Intravenous, O nce, Sun07/23/19 at 1345, For 1 dose
Post-cisplatin. Remove KCl from IV bag if K+>4.8 and/or remove Mag from bag if Mag > 2.2
[facility] Small cell carcinoma Medication administered onsite etoposide (VEPESID) 156 mg in sodium chloride 0.9 % 500 mL c hemo infusion 07/23/2019 01:00:00 PM EDT 80 mg/m2 Intravenous c ompleted Small cell carcinoma 156 mg (rounded from 156.8 m g = 80 mg/m2 1.96 m2 Treatment plan recorded BSA), Intravenous, Administer over 60 Minutes, Once, Sun07/23/19 at 1300, For 1 dose
Monitor for hypotension.Infuse through a 0.22 micron filter.
[facility] Small cell carcinoma Medication administered onsite CISplatin (PLATINOL) 157 mg in sodium chloride 3 % 407 mL ch emo infusion 07/23/2019 12:00:00 PM EDT 80 mg/m2 Intravenous c ompleted Small cell carcinoma 157 mg (rounded from 156.8 m g = 80 mg/m2 1.96 m2 Treatment plan recorded BSA), Intravenous, Administer over 60 Minutes, Once, Sun07/23/19 at 1200, For 1 dose [facility] Small cell carcinoma Medication administered onsite Magnesium Oxide 400 MG Oral Tablet Magnesium Oxide (MA G-OX) tablet 400 mg Magnesium Oxide (MAG-OX) tablet 400 mg 07/23/2019 11:00:00 AM EDT 4 00 mg Oral completed 400 mg, Oral, Once, Sun at 1115, For 1 dose [facility] Medication administered onsite atezolizumab (TECENTRIQ) 1,200 mg in sod ium chloride 0.9 % 250 mL chemo infusion 07/23/2019 10:15:00 AM EDT 1200 mg Intravenous completed Small cell carcinoma 1,200 mg, Intravenous, Admin ister over 30 Minutes, Once, Sun07/23/19 at 1015, For 1 dose
Only compatible with NaCl 0.9 %.
[facility] Small cell carcinoma Medication administered onsite Lorazepam 0.5 MG Oral Tablet LORazepam (ATIVAN) tablet 0.5 mg LORazepam (ATIVAN) tablet 0.5 mg 07/23/2019 09:45:00 AM EDT 0.5 mg Oral completed Small cell carcinoma 0.5 mg, Oral, Once, Wed 07/22 at 0945, For 1 dose
Give prior to chemotherapy
[facility] Small cell carcinoma Medication administered onsite fosaprepitant dimeglumine (EMEND) 150 mg in sodium chloride 0.9 % 150 mL infusion 07/23/2019 09:45:00 AM EDT 150 mg Intravenous completed Small cell carcinoma 150 mg, Intravenous, Once, W ed 07/23/19 at 0945, For 1 dose
Give 30 minutes before chemotherapy over 20-30 minutes.
[facility] Small cell carcinoma Medication administered onsite sodium chloride 0.9 % 1,000 mL bolus 07/23/2019 09:45:00 A M EDT Intravenous completed Small cell carcinoma Int ravenous, at 500 mL/hr, Once, Sun07/23/19 at 0945, For 1 dose
Infuse at 500 mL/hr until urine parameters are met.If after 1000 mL infused and urine parameters are not met, contact MD.
[facility] Small cell carcinoma Medication administered onsite Dexamethasone 4 MG Oral Tablet dexamethasone (DECADRON ) tablet 8 mg dexamethasone (DECADRON) tablet 8 mg 07/23/2019 09:45:00 AM EDT 8 mg Oral completed Small cell carcinoma 8 mg, Oral, Once, W ed 07/23/19 at 0945, For 1 dose
Give prior to chemotherapy.
[facility] Small cell carcinoma Medication administered onsite Ondansetron 8 MG Oral Tablet ondansetron (ZOFRAN) tabl et 16 mg ondansetron (ZOFRAN) tablet 16 mg 07/23/2019 09:45:00 AM EDT 16 mg Oral completed Small cell carcinoma 16 mg, Oral, Once, Sun at 0945, For 1 dose
Give prior to chemotherapy
[facility] Small cell carcinoma Medication administered onsite Loratadine 10 MG Oral Tablet Loratadine 10 MG Oral Tab let (CLARITIN) Loratadine 10 MG Oral Tablet (CLARITIN) 07/23/2019 12:00:00 AM EDT 10 mg Oral aborted Take 1 tablet by mouth daily [facility] gadobutrol (GADAVIST) contrast injection 8 mL [id number] 12:45:00 PM EDT 0.1 mL/kg Intravenous completed 8 mL (ro unded from 8.37 mL = 0.1 mL/kg 83.7 kg), Intravenous, 1 TIME IMAGING, 07/14/19 at 1245, For 1 dose, Imaging Protocol
Do not mix or administer in the same IV line with other medicat ions.
[facility] Medication administered onsite 1,000 mg 07/14/2019 12:00:00 AM EDT tablet 60 TAKE ONE TABLET BY MOUTH TWICE A DAY WITH A MEAL TAKE ONE TABLET BY MOUTH TWICE A DAY WITH A MEAL SOLD: 10/10/2019 [facility] Metformin hydrochloride 1000 MG Oral Tablet 1,000 mg METFORM IN HCL 07/14/2019 12:00:00 AM EDT tablet 60 TAKE ONE TABLET BY MOUTH TWICE A DAY WITH A MEAL TAKE ONE TABLET BY MOUTH TWICE A DAY WITH A MEAL SOLD: 12/10/2019 [facility] Metformin hydrochloride 1000 MG Oral Tablet 1,000 mg METFORM IN HCL 07/14/2019 12:00:00 AM EDT tablet 60 TAKE ONE TABLET BY MOUTH TWICE A DAY WITH A MEAL TAKE ONE TABLET BY MOUTH TWICE A DAY WITH A MEAL SOLD: 11/10/2019 [facility] Metformin hydrochloride 1000 MG Oral Tablet 1,000 mg METFORM IN HCL 07/14/2019 12:00:00 AM EDT tablet 60 TAKE ONE TABLET BY MOUTH TWICE A DAY WITH A MEAL TAKE ONE TABLET BY MOUTH TWICE A DAY WITH A MEAL SOLD: 09/11/2019 [facility] 1,000 mg 07/14/2019 12:00:00 AM EDT tablet 60 TAKE ONE TABLET BY MOUTH TWICE A DAY WITH A MEAL TAKE ONE TABLET BY MOUTH TWICE A DAY WITH A MEAL SOLD: 08/17/2019 [facility] 1,000 mg 07/14/2019 12:00:00 AM EDT tablet 60 TAKE ONE TABLET BY MOUTH TWICE A DAY WITH A MEAL TAKE ONE TABLET BY MOUTH TWICE A DAY WITH A MEAL SOLD: 07/17/2019 [facility] 300 mg 07/10/2019 12:00:00 AM EDT tablet 30 TAKE ONE TABLET BY MOUTH EVERY DAY TAKE ONE TABLET BY MOUTH EVERY DAY SOLD: 07/17/2019 [facility] 300 mg 07/10/2019 12:00:00 AM EDT tablet 30 TAKE ONE TABLET BY MOUTH EVERY DAY TAKE ONE TABLET BY MOUTH EVERY DAY SOLD: 08/17/2019 [facility] 300 mg 07/10/2019 12:00:00 AM EDT tablet 30 TAKE ONE TABLET BY MOUTH EVERY DAY TAKE ONE TABLET BY MOUTH EVERY DAY SOLD: 09/11/2019 [facility] 300 mg 07/10/2019 12:00:00 AM EDT tablet 30 TAKE ONE TABLET BY MOUTH EVERY DAY TAKE ONE TABLET BY MOUTH EVERY DAY SOLD: 10/10/2019 [facility] 300 mg 07/10/2019 12:00:00 AM EDT tablet 30 TAKE ONE TABLET BY MOUTH EVERY DAY TAKE ONE TABLET BY MOUTH EVERY DAY SOLD: 11/10/2019 [facility] 300 mg 07/10/2019 12:00:00 AM EDT tablet 30 TAKE ONE TABLET BY MOUTH EVERY DAY TAKE ONE TABLET BY MOUTH EVERY DAY SOLD: 12/10/2019 [facility] Allopurinol 300 MG Oral Tablet Allopurinol 300 MG 07/09/2019 12:00: 00 AM EDT 1.0 {tablet} active Allopurinol 300 MG eCW1 ([facility]) Allopurinol 300 MG Oral Tablet Allopurinol 300 MG 07/09/2019 12:00: 00 AM EDT 1.0 {tablet} active Allopurinol 300 MG eCW1 ([facility]) Allopurinol 300 MG Oral Tablet Allopurinol 300 MG 07/09/2019 12:00: 00 AM EDT 1.0 {tablet} active Allopurinol 300 MG eCW1 ([facility]) Allopurinol 300 MG Oral Tablet Allopurinol 300 MG 07/09/2019 12:00: 00 AM EDT active 1 tablet eCW1 ([facility]) Allopurinol 300 MG Oral Tablet Allopurinol 300 MG 07/09/2019 12:00: 00 AM EDT 1.0 {tablet} active Allopurinol 300 MG eCW1 ([facility]) Allopurinol 300 MG Oral Tablet Allopurinol 300 MG 07/09/2019 12:00: 00 AM EDT 1.0 {tablet} active Allopurinol 300 MG eCW1 ([facility]) Allopurinol 300 MG Oral Tablet Allopurinol 300 MG 07/09/2019 12:00: 00 AM EDT 1.0 {tablet} active Allopurinol 300 MG eCW1 ([facility]) Allopurinol 300 MG Oral Tablet Allopurinol 300 MG 07/09/2019 12:00: 00 AM EDT 1.0 {tablet} active Allopurinol 300 MG eCW1 ([facility]) Levothyroxine Sodium 0.075 MG Oral Table t Levothyroxine Sodium 75 MCG Oral Tablet (SYNTHROID) Levothyroxine Sodium 75 MCG Oral Tablet (SYNTHROID) 07/08/2019 12:00:00 AM EDT [facility] Etoposide 50 MG Oral Capsule Etoposide 50 MG Oral Caps ule (VEPESID) Etoposide 50 MG Oral Capsule (VEPESID) 07/03/2019 12:00:00 AM EDT 150 mg Oral active Take 3 capsules by mouth Two Times Daily for 2 daysTake on 07/02 and 07/03 (days 2 and 3 of chemo) [facility] Dexamethasone 4 MG Oral Tablet Dexamethasone 4 MG Oral Tablet (DECADRON) Dexamethasone 4 MG Oral Tablet (DECADRON) 07/03/2019 12:00:00 AM EDT 8 mg Oral active Take 2 tablets by mouth daily with breakfast for 2 daysTake on 07/02 and 07/03 30 minutes before chemo pills [facility] sodium chloride 0.9 % 500 mL with potass ium chloride 10 mEq, magnesium sulfate 8 mEq infusion 07/02/2019 03:15:00 PM EDT Intravenous completed Small cell carcinoma at 500 mL/hr, Intravenous, O nce, Sun07/02/19 at 1515, For 1 dose
Post-cisplatin. Remove KCl from IV bag if K+>4.8 and/or remove Mag from bag if Mag > 2.2
[facility] Small cell carcinoma Medication administered onsite etoposide (VEPESID) 156 mg in sodium chloride 0.9 % 500 mL c hemo infusion 07/02/2019 02:15:00 PM EDT 80 mg/m2 Intravenous c ompleted Small cell carcinoma 156 mg (rounded from 156.8 m g = 80 mg/m2 1.96 m2 Treatment plan recorded BSA), Intravenous, Administer over 60 Minutes, Once, Sun07/02/19 at 1415, For 1 dose
Monitor for hypotension.Infuse through a 0.22 micron filter.
[facility] Small cell carcinoma Medication administered onsite CISplatin (PLATINOL) 157 mg in sodium chloride 3 % 407 mL ch emo infusion 07/02/2019 01:15:00 PM EDT 80 mg/m2 Intravenous c ompleted Small cell carcinoma 157 mg (rounded from 156.8 m g = 80 mg/m2 1.96 m2 Treatment plan recorded BSA), Intravenous, Administer over 60 Minutes, Once, Sun07/02/19 at 1315, For 1 dose
Do not refrigerate. Protect from l ight.
[facility] Small cell carcinoma Medication administered onsite atezolizumab (TECENTRIQ) 1,200 mg in sod ium chloride 0.9 % 250 mL chemo infusion 07/02/2019 11:30:00 AM EDT 1200 mg Intravenous completed Small cell carcinoma 1,200 mg, Intravenous, Admin ister over 60 Minutes, Once, 07/02/19 at 1130, For 1 dose
Only compatible with NaCl 0.9 %.
[facility] Small cell carcinoma Medication administered onsite sodium chloride 0.9 % 1,000 mL bolus 07/02/2019 11:15:00 A M EDT Intravenous completed Small cell carcinoma Int ravenous, at 500 mL/hr, Once, 07/02/19 at 1115, For 1 dose
Infuse at 500 mL/hr until urine parameters are met.If after 1000 mL infused and urine parameters are not met, contact MD.
[facility] Small cell carcinoma Medication administered onsite Dexamethasone 4 MG Oral Tablet dexamethasone (DECADRON ) tablet 8 mg dexamethasone (DECADRON) tablet 8 mg 07/02/2019 11:15:00 AM EDT 8 mg Oral completed Small cell carcinoma 8 mg, Oral, Once, W ed 07/02/19 at 1115, For 1 dose
Give prior to chemotherapy.
[facility] Small cell carcinoma Medication administered onsite Ondansetron 8 MG Oral Tablet ondansetron (ZOFRAN) tabl et 16 mg ondansetron (ZOFRAN) tablet 16 mg 07/02/2019 11:15:00 AM EDT 16 mg Oral completed Small cell carcinoma 16 mg, Oral, Once, Wed 0 at 1115, For 1 dose
Give prior to chemotherapy
[facility] Small cell carcinoma Medication administered onsite Lorazepam 0.5 MG Oral Tablet LORazepam (ATIVAN) tablet 0.5 mg LORazepam (ATIVAN) tablet 0.5 mg 07/02/2019 11:15:00 AM EDT 0.5 mg Oral completed Small cell carcinoma 0.5 mg, Oral, Once, Wed at 1115, For 1 dose
Give prior to chemotherapy
[facility] Small cell carcinoma Medication administered onsite fosaprepitant dimeglumine (EMEND) 150 mg in sodium chloride 0.9 % 150 mL infusion 07/02/2019 11:15:00 AM EDT 150 mg Intravenous completed Small cell carcinoma 150 mg, Intravenous, Once, W ed 07/02/19 at 1115, For 1 dose
Give 30 minutes before chemotherapy over 20-30 minutes.
[facility] Small cell carcinoma Medication administered onsite Prochlorperazine 10 MG Oral Tablet Proch lorperazine Maleate 10 MG Oral Tablet (COMPAZINE) Prochlorperazine Maleate 10 MG Oral Tablet (COMPAZINE) 07/02/2019 12:00:00 AM EDT 10 mg Oral active Take 1 tablet by mouth every 6 (six) hours as needed for up to 7 days [facility] Ondansetron 4 MG Oral Tablet Ondansetron HCl 4 MG Oral Tablet (Zofran) Ondansetron HCl 4 MG Oral Tablet (Zofran) 07/02/2019 12:00:00 AM EDT 8 mg Oral active Take 2 tablets by mouth every 8 (eight) hours as needed for Nausea [facility] 10 mg 06/13/2019 12:00:00 AM EDT tablet 30 TAKE ONE TABLET BY MOUTH EVERY 8 HOURS NEEDED FOR NAUSEA AND VOMITING TAKE ONE TABLET BY MOUTH EVERY 8 HOURS NEEDED FOR NAUSEA AND VOMITING SOLD: 06/13/2019 [facility] 8 mg 06/13/2019 12:00:00 AM EDT tablet 18 TAKE ONE TABLET BY MOUTH EVERY 6 HOURS NEEDED FOR NAUSEA AND VOMITING TAKE ONE TABLET BY MOUTH EVERY 6 HOURS NEEDED FOR NAUSEA AND VOMITING SOLD: 06/13/2019 [facility] Dexamethasone 4 MG Oral Tablet Dexamethasone 4 MG Oral Tablet (DECADRON) Dexamethasone 4 MG Oral Tablet (DECADRON) 06/12/2019 12:00:00 AM EDT 8 mg Oral active Take 2 tablets by mouth daily with breakfast for 2 daysTake on 06/11 and 06/12 (days 2 and 3 of chemo) 30 minutes before chemo pill etoposide [facility] sodium chloride 0.9 % bolus 500 mL [id number] 06/11/2019 02:15:00 PM EDT 500 mL Intravenous completed Small cell carcinoma 500 mL, Intravenous, Once, Sun06/11/19 at 1415, For 1 dose
Give after Cisplatin. Remove KCL from IV bag if K+ > 4.8 and/or remove Mag from bag if Mag > 2.2.
[facility] Small cell carcinoma Medication administered onsite Magnesium Oxide 400 MG Oral Tablet Magnesium Oxide (MA G-OX) tablet 400 mg Magnesium Oxide (MAG-OX) tablet 400 mg 06/11/2019 01:15:00 PM EDT 4 00 mg Oral completed 400 mg, Oral, Once, Wed at 1315, For 1 dose [facility] Medication administered onsite etoposide (VEPESID) 156 mg in sodium chloride 0.9 % 500 mL c hemo infusion 06/11/2019 01:15:00 PM EDT 80 mg/m2 Intravenous c ompleted Small cell carcinoma 156 mg (rounded from 156.8 m g = 80 mg/m2 1.96 m2 Treatment plan recorded BSA), Intravenous, Administer over 60 Minutes, Once, 06/11/19 at 1315, For 1 dose
Monitor for hypotension.Infuse through a 0.22 micron filter.Monitor for hypotension.Infuse through a 0.22 micron filter.
[facility] Small cell carcinoma Medication administered onsite CISplatin (PLATINOL) 157 mg in sodium chloride 3 % 407 mL ch emo infusion 06/11/2019 12:15:00 PM EDT 80 mg/m2 Intravenous c ompleted Small cell carcinoma 157 mg (rounded from 156.8 m g = 80 mg/m2 1.96 m2 Treatment plan recorded BSA), Intravenous, Administer over 60 Minutes, Once, 06/11/19 at 1215, For 1 dose
Do not refrigerate. Protect from light.
[facility] Small cell carcinoma Medication administered onsite sodium chloride 0.9 % 1,000 mL bolus 06/11/2019 10:15:00 A M EDT Intravenous completed Small cell carcinoma Int ravenous, at 500 mL/hr, Once, 06/11/19 at 1015, For 1 dose
Infuse at 500 mL/hr until urine parameters are met.If after 1000 mL infused and urine parameters are not met, contact .
[facility] Small cell carcinoma Medication administered onsite fosaprepitant dimeglumine (EMEND) 150 mg in sodium chloride 0.9 % 150 mL infusion 06/11/2019 10:15:00 AM EDT 150 mg Intravenous completed Small cell carcinoma 150 mg, Intravenous, Once, W ed 06/11/19 at 1015, For 1 dose
Give 30 minutes before chemotherapy over 20-30 minutes.
[facility] Small cell carcinoma Medication administered onsite Lorazepam 0.5 MG Oral Tablet LORazepam (ATIVAN) tablet 0.5 mg LORazepam (ATIVAN) tablet 0.5 mg 06/11/2019 10:15:00 AM EDT 0.5 mg Oral completed Small cell carcinoma 0.5 mg, Oral, Once, Wed 06/10 at 1015, For 1 dose
Give prior to chemotherapy
[facility] Small cell carcinoma Medication administered onsite Ondansetron 8 MG Oral Tablet ondansetron (ZOFRAN) tabl et 16 mg ondansetron (ZOFRAN) tablet 16 mg 06/11/2019 10:15:00 AM EDT 16 mg Oral completed Small cell carcinoma 16 mg, Oral, Once, Wed at 1015, For 1 dose
Give prior to chemotherapy
[facility] Small cell carcinoma Medication administered onsite Dexamethasone 4 MG Oral Tablet dexamethasone (DECADRON ) tablet 8 mg dexamethasone (DECADRON) tablet 8 mg 06/11/2019 10:15:00 AM EDT 8 mg Oral completed Small cell carcinoma 8 mg, Oral, Once, W ed 06/11/19 at 1015, For 1 dose
Give prior to chemotherapy.
[facility] Small cell carcinoma Medication administered onsite Ondansetron 4 MG Oral Tablet Ondansetron HCl 4 MG Oral Tablet (Zofran) Ondansetron HCl 4 MG Oral Tablet (Zofran) 06/11/2019 12:00:00 AM EDT 4 mg Oral aborted Take 1 tablet by mouth every 8 (eight) hours as needed for Nausea [facility] Prochlorperazine 10 MG Oral Tablet Proch lorperazine Maleate 10 MG Oral Tablet (COMPAZINE) Prochlorperazine Maleate 10 MG Oral Tablet (COMPAZINE) 06/11/2019 12:00:00 AM EDT 10 mg Oral active Take 1 tablet by mouth every 6 (six) hours as needed [facility] Etoposide 50 MG Oral Capsule Etoposide 50 MG Oral Caps ule (VEPESID) Etoposide 50 MG Oral Capsule (VEPESID) 06/11/2019 12:00:00 AM EDT 150 mg Oral active Take 3 capsules by mouth Two Times Daily for 2 daysTake on 06/11 and 06/12 (days 2 and 3 of chemo) [facility] 1,000 mg 06/06/2019 12:00:00 AM EDT tablet 60 TAKE ONE TABLET BY MOUTH TWICE A DAY WITH MEALS TAKE ONE TABLET BY MOUTH TWICE A DAY WITH MEALS SOLD: 06/13/2019 [facility] 75 mcg 06/05/2019 12:00:00 AM EDT tablet 30 TAKE ONE TABLET BY MOUTH EVERY MORNING ON EMPTY STOMACH TAKE ONE TABLET BY MOUTH EVERY MORNING O N EMPTY STOMACH SOLD: 09/11/2019 [facility] 40 mg 06/05/2019 12:00:00 AM EDT tablet 30 TAKE ONE TABLET BY MOUTH EVERY DAY TAKE ONE TABLET BY MOUTH EVERY DAY SOLD: 07/17/2019 [facility] 40 mg 06/05/2019 12:00:00 AM EDT tablet 30 TAKE ONE TABLET BY MOUTH EVERY DAY TAKE ONE TABLET BY MOUTH EVERY DAY SOLD: 08/17/2019 [facility] 40 mg 06/05/2019 12:00:00 AM EDT tablet 30 TAKE ONE TABLET BY MOUTH EVERY DAY TAKE ONE TABLET BY MOUTH EVERY DAY SOLD: 09/11/2019 [facility] 40 mg 06/05/2019 12:00:00 AM EDT tablet 30 TAKE ONE TABLET BY MOUTH EVERY DAY TAKE ONE TABLET BY MOUTH EVERY DAY SOLD: 10/10/2019 [facility] 50 mg 06/05/2019 12:00:00 AM EDT tablet 60 TAKE ONE TABLET BY MOUTH TWICE A DAY TAKE ONE TABLET BY MOUTH TWICE A DAY SOLD: 07/17/2019 [facility] 40 mg 06/05/2019 12:00:00 AM EDT tablet 30 TAKE ONE TABLET BY MOUTH EVERY DAY TAKE ONE TABLET BY MOUTH EVERY DAY SOLD: 06/13/2019 [facility] 50 mg 06/05/2019 12:00:00 AM EDT tablet 60 TAKE ONE TABLET BY MOUTH TWICE A DAY TAKE ONE TABLET BY MOUTH TWICE A DAY SOLD: 06/13/2019 [facility] atorvastatin 40 MG Oral Tablet ATORVASTATIN CALCIUM 06/05/2019 1 2:00:00 AM EDT tablet 30 TAKE ONE TABLET BY MOUTH EVERY D AY TAKE ONE TABLET BY MOUTH EVERY DAY SOLD: 11/10/2019 [facility] 75 mcg 06/05/2019 12:00:00 AM EDT tablet 30 TAKE ONE TABLET BY MOUTH EVERY MORNING ON EMPTY STOMACH TAKE ONE TABLET BY MOUTH EVERY MORNING O N EMPTY STOMACH SOLD: 07/17/2019 [facility] 75 mcg 06/05/2019 12:00:00 AM EDT tablet 30 TAKE ONE TABLET BY MOUTH EVERY MORNING ON EMPTY STOMACH TAKE ONE TABLET BY MOUTH EVERY MORNING O N EMPTY STOMACH SOLD: 06/13/2019 [facility] 75 mcg 06/05/2019 12:00:00 AM EDT tablet 30 TAKE ONE TABLET BY MOUTH EVERY MORNING ON EMPTY STOMACH TAKE ONE TABLET BY MOUTH EVERY MORNING O N EMPTY STOMACH SOLD: 08/17/2019 [facility] Blood Pressure Kit - Blood Pressure Kit - 05/27/2019 12:00:00 AM EDT active Blood Pressure Kit - eCW1 ([facility]) Blood Pressure Kit - Blood Pressure Kit - 05/27/2019 12:00:00 AM EDT active Blood Pressure Kit - eCW1 ([facility]) Blood Pressure Kit - Blood Pressure Kit - 05/27/2019 12:00:00 AM EDT active Blood Pressure Kit - eCW1 ([facility]) Blood Pressure Kit - Blood Pressure Kit - 05/27/2019 12:00:00 AM EDT active Blood Pressure Kit - eCW1 ([facility]) Blood Pressure Kit - Blood Pressure Kit - 05/27/2019 12:00:00 AM EDT active Blood Pressure Kit - eCW1 ([facility]) Blood Pressure Kit - Blood Pressure Kit - 05/27/2019 12:00:00 AM EDT active Blood Pressure Kit - eCW1 ([facility]) Blood Pressure Kit - Blood Pressure Kit - 05/27/2019 12:00:00 AM EDT active Blood Pressure Kit - eCW1 ([facility]) Blood Pressure Kit - Blood Pressure Kit - 05/27/2019 12:00:00 AM EDT active as directed eCW1 ([facility]) Levothyroxine Sodium 0.1 MG Oral Tablet Levothyroxine Sodium 100 MCG Oral Tablet (SYNTHROID, LEVOTHROID) Levothyroxine Sodium 100 MCG Oral Tablet (SYNTHROID, LEVOTHROID) 05/21/2019 12:00:00 AM EDT 100 ug Oral aborte d Take 1 tablet by mouth every morning [facility] etoposide (VEPESID) 156 mg in sodium chloride 0.9 % 500 mL c hemo infusion 05/20/2019 01:00:00 PM EDT 80 mg/m2 Intravenous c ompleted Small cell carcinoma 156 mg (rounded from 156.8 m g = 80 mg/m2 1.96 m2 Treatment plan recorded BSA), Intravenous, Administer over 60 Minutes, Once, 05/20/19 at 1300, For 1 dose
Monitor for hypotension.Infuse through a 0.22 micron filter.Monitor for hypotension.Infuse through a 0.22 micron filter.
[facility] Small cell carcinoma Medication administered onsite ondansetron (ZOFRAN) injection 16 mg [id number] 05/20/2019 12:30: 00 PM EDT 16 mg Intravenous completed Small cell carcinoma 16 mg, Intravenous, Once, 05/20/19 at 1230, For 1 dose
Give 30 minutes prior to chemo
[facility] Small cell carcinoma Medication administered onsite Dexamethasone 4 MG Oral Tablet dexamethasone (DECADRON ) tablet 8 mg dexamethasone (DECADRON) tablet 8 mg 05/20/2019 12:30:00 PM EDT 8 mg Oral completed Small cell carcinoma 8 mg, Oral, Once, T ue 05/20/19 at 1230, For 1 dose
Give prior to chemotherapy.
[facility] Small cell carcinoma Medication administered onsite Ondansetron 8 MG Oral Tablet ondansetron (ZOFRAN) tabl et 8 mg ondansetron (ZOFRAN) tablet 8 mg 05/20/2019 09:00:00 AM EDT 8 mg Oral completed 8 mg, Oral, Once, e 05/20/19 at 0900, For 1 dose [facility] Medication administered onsite Prochlorperazine 10 MG Oral Tablet Proch lorperazine Maleate 10 MG Oral Tablet (COMPAZINE) Prochlorperazine Maleate 10 MG Oral Tablet (COMPAZINE) 05/20/2019 12:00:00 AM EDT 10 mg Oral active Take 1 tablet by mouth every 6 (six) hours as needed for up to 7 days [facility] Ondansetron 8 MG Disintegrating Oral Tab let Ondansetron 8 MG Oral Tablet Disintegrating Ondansetron 8 MG Oral Tablet Disintegrating 05/20/2019 12:00:00 AM EDT 8 mg Oral active Take 1 t ablet by mouth every 8 (eight) hours as needed for Nausea or Vomiting for up to 7 days [facility] Ondansetron 4 MG Oral Tablet Ondansetron HCl 4 MG Oral Tablet (ZOFRAN) Ondansetron HCl 4 MG Oral Tablet (ZOFRAN) 05/20/2019 12:00:00 AM EDT 4 mg Oral aborted Take 1 tablet by mouth every 12 (twelve) hours as needed for Nausea for up to 7 days [facility] Acetaminophen 325 MG / Hydrocodone Hector trate 5 MG Oral Tablet HYDROcodone- Acetaminophen 5-325 MG Oral Tablet (LORTAB) HYDROcodone-Acetaminophen 5-325 MG Oral Tablet (LORTAB) 05/20/2019 12:00:00 AM EDT 1 {tbl} Oral active Take 1 tablet by mouth every 6 (six) hours as needed for up to 7 days, Max Daily Dose: 4 tablets [facility] Benzocaine 15 MG / Menthol 3.6 MG Oral L ozenge Benzocaine-Menthol 15-3.6 MG Mouth/Throat Lozenge (CEPACOL) Benzocaine-Menthol 15-3.6 MG Mouth/Throa t Lozenge (CEPACOL) 05/20/2019 12:00:00 AM EDT 1 {lozenge} Mouth/Throat active Use as directed 1 lozenge in the mouth or throat every 2 (two) hours as needed [facility] atorvastatin 40 MG Oral Tablet Atorvastatin Calcium 40 MG Oral Tablet (LIPITOR) Atorvastatin Calcium 40 MG Oral Tablet (LIPITOR) 05/20/2019 12:00:00 AM EDT 40 mg Oral active Take 1 tablet by mouth e very evening [facility] Acetaminophen 325 MG Oral Tablet Acetaminophen 325 MG Oral T ablet 05/20/2019 12:00:00 AM EDT 650 mg Oral active Take 2 tablets by mouth every 6 (six) hours as needed for up to 10 days [facility] Lisinopril 10 MG Oral Tablet Lisinopril 10 MG Oral Tab let (PRINIVIL,ZESTRIL) Lisinopril 10 MG Oral Tablet (PRINIVIL,ZESTRIL) 05/20/2019 12:00:00 AM EDT 10 mg Oral aborted Take 1 tablet by mouth e very evening [facility] Metoprolol Tartrate 50 MG Oral Tablet Me toprolol Tartrate 50 MG Oral Tablet (LOPRESSOR) Metoprolol Tartrate 50 MG Oral Tablet (LOPRESSOR) 04/27 12:00:00 AM EDT 50 mg Oral active Take 1 tablet by mouth Two Times Daily [facility] Cholecalciferol 1000 UNT Oral Tablet Vit miranda D3 25 MCG (1000 UT) Oral Tablet (CHOLECALCIFEROL) Vitamin D3 25 MCG (1000 UT) Oral Tablet (CHOLECALCIFER OL) 05/20/2019 12:00:00 AM EDT 2000 U Oral aborted Take 2 tablets by mouth nightly [facility] Allopurinol 300 MG Oral Tablet Allopurinol 300 MG Oral Tablet (ZYLOPRIM) Allopurinol 300 MG Oral Tablet (ZYLOPRIM) 05/20/2019 12:00:00 AM EDT 300 mg Oral active Take 1 tablet by violette th daily [facility] etoposide (VEPESID) 156 mg in sodium chloride 0.9 % 500 mL c hemo infusion 05/19/2019 02:30:00 PM EDT 80 mg/m2 Intravenous c ompleted Small cell carcinoma 156 mg (rounded from 156.8 m g = 80 mg/m2 1.96 m2 Treatment plan recorded BSA), Intravenous, Administer over 60 Minutes, Once, 05/19/19 at 1430, For 1 dose
Monitor for hypotension.Infuse through a 0.22 micron filter.Monitor for hypotension.Infuse through a 0.22 micron filter.
[facility] Small cell carcinoma Medication administered onsite Dexamethasone 4 MG Oral Tablet dexamethasone (DECADRON ) tablet 8 mg dexamethasone (DECADRON) tablet 8 mg 05/19/2019 02:00:00 PM EDT 8 mg Oral completed Small cell carcinoma 8 mg, Oral, Once, M on 05/19/19 at 1400, For 1 dose
Give prior to chemotherapy.
[facility] Small cell carcinoma Medication administered onsite Ondansetron 8 MG Oral Tablet ondansetron (ZOFRAN) tabl et 16 mg ondansetron (ZOFRAN) tablet 16 mg 05/19/2019 02:00:00 PM EDT 16 mg Oral completed Small cell carcinoma 16 mg, Oral, Once, Mon at 1400, For 1 dose
Give prior to chemotherapy
[facility] Small cell carcinoma Medication administered onsite TC-99M medronate (Tc-MDP) [id number] 05/19/2019 10:45:00 AM EDT Intravenous completed Intravenous, Once, 05/19/19 at 1045, For 1 dose, Imaging Protocol [facility] Medication administered onsite 2 ML Metoclopramide 5 MG/ML Prefilled Sy ringe metoclopramide (REGLAN) injection 10 mg metoclopramide (REGLAN) injection 10 mg 05/18/2019 11:21:46 PM E DT 10 mg Intravenous active 10 mg, I ntravenous, Every 6 hours PRN, Heartburn, Starting 05/18/19 at 2321, For 30 days [facility] Medication administered onsite etoposide (VEPESID) 156 mg in sodium chloride 0.9 % 500 mL c hemo infusion 05/18/2019 03:30:00 PM EDT 80 mg/m2 Intravenous c ompleted Small cell carcinoma 156 mg (rounded from 156.8 m g = 80 mg/m2 1.96 m2 Treatment plan recorded BSA), Intravenous, Administer over 60 Minutes, Once, 05/18/19 at 1530, For 1 dose
Monitor for hypotension.Infuse through a 0.22 micron filter.Monitor for hypotension.Infuse through a 0.22 micron filter.
[facility] Small cell carcinoma Medication administered onsite sodium chloride 0.9 % bolus 500 mL [id number] 05/18/2019 03:00:00 PM EDT 500 mL Intravenous completed Small cell carcinoma 500 mL, Intravenous, Once, 05/18/19 at 1500, For 1 dose
Give after Cisplatin. Remove KCL from IV bag if K+ > 4.8 and/or remove Mag from bag if Mag > 2.2.
[facility] Small cell carcinoma Medication administered onsite CISplatin (PLATINOL) 157 mg in sodium chloride 3 % 407 mL ch emo infusion 05/18/2019 02:30:00 PM EDT 80 mg/m2 Intravenous c ompleted Small cell carcinoma 157 mg (rounded from 156.8 m g = 80 mg/m2 1.96 m2 Treatment plan recorded BSA), Intravenous, Administer over 60 Minutes, Once, 05/18/19 at 1430, For 1 dose
Do not refrigerate. Protect from light.
[facility] Small cell carcinoma Medication administered onsite fosaprepitant dimeglumine (EMEND) 150 mg in sodium chloride 0.9 % 150 mL infusion 05/18/2019 02:00:00 PM EDT 150 mg Intravenous completed Small cell carcinoma 150 mg, Intravenous, Once, S un 05/18/19 at 1400, For 1 dose
Give 30 minutes before chemotherapy over 20-30 minutes.
[facility] Small cell carcinoma Medication administered onsite Lorazepam 0.5 MG Oral Tablet LORazepam (ATIVAN) tablet 0.5 mg LORazepam (ATIVAN) tablet 0.5 mg 05/18/2019 02:00:00 PM EDT 0.5 mg Oral completed Small cell carcinoma 0.5 mg, Oral, Once, Sun 05/17 at 1400, For 1 dose
Give prior to chemotherapy
[facility] Small cell carcinoma Medication administered onsite Ondansetron 8 MG Oral Tablet ondansetron (ZOFRAN) tabl et 16 mg ondansetron (ZOFRAN) tablet 16 mg 05/18/2019 02:00:00 PM EDT 16 mg Oral completed Small cell carcinoma 16 mg, Oral, Once, Sun at 1400, For 1 dose
Give prior to chemotherapy
[facility] Small cell carcinoma Medication administered onsite Dexamethasone 4 MG Oral Tablet dexamethasone (DECADRON ) tablet 8 mg dexamethasone (DECADRON) tablet 8 mg 05/18/2019 02:00:00 PM EDT 8 mg Oral completed Small cell carcinoma 8 mg, Oral, Once, S un 05/18/19 at 1400, For 1 dose
Give prior to chemotherapy.
[facility] Small cell carcinoma Medication administered onsite sodium chloride 0.9 % 1,000 mL bolus 05/18/2019 12:30:00 P M EDT Intravenous completed Small cell carcinoma Int ravenous, at 500 mL/hr, Once, 05/18/19 at 1230, For 1 dose
Infuse at 500 mL/hr until urine parameters are met.If after 1000 mL infused and urine parameters are not met, contact .
[facility] Small cell carcinoma Medication administered onsite gadobutrol (GADAVIST) contrast injection 8.5 mL [id number] 05/17/2019 06:00:00 PM EDT 0.1 mL/kg Intravenous completed 8.5 mL (rounded from 8.65 mL = 0.1 mL/kg 86.5 kg), Intravenous, 1 TIME IMAGING, 05/17/19 at 1800, For 1 dose
Do not mix or administer in the same IV line with other medications.
[facility] Medication administered onsite 1 ML Lorazepam 2 MG/ML Injection LORazepam (ATIVAN) in jection 0.5 mg LORazepam (ATIVAN) injection 0.5 mg 05/17/2019 05:00:00 PM EDT 0.5 mg Intrave nous completed 0.5 mg, Intravenous, Once, Sat at 1700, For 1 dose [facility] Medication administered onsite Benzocaine 15 MG / Menthol 3.6 MG Oral L ozenge Benzocaine-Menthol (CEPACOL) 15- 3.6 MG lozenge 1 lozenge Benzocaine-Menthol (CEPACOL) 15-3.6 MG l ozenge 1 lozenge 05/17/2019 12:19:42 PM EDT 1 {lozenge} Mouth/Throat active 1 lozenge, Mouth/Throat, Every 2 hours PRN, Sore Throat, Starting 05/17/19 at 1219, For 30 days [facility] Medication administered onsite lidocaine (XYLOCAINE) 1 % injection 5 mL [id number] 05/17/2019 11:33:14 AM EDT 5 mL Subcutaneous active 5 m L, Subcutaneous, Once PRN, for PICC insertion, Starting 05/17/19 at 1133, For 30 days [facility] Medication administered onsite sodium chloride (preservative free) 0.9 % flush 10 mL 05/17/2019 11:33:14 AM EDT 10 mL Intravenous active [Ord er 1 Start] Name: sodium chloride (preservative free) 0.9 % flush 10 mL Signed Summary: 10 mL, Intravenous, PRN, Line Care, Starting 05/17/19 at 1133, For 30 days
Verify blood return before use. Flush with 10 mL of Sodium Chloride 0.9 % before and after infusions or blood sampling followed-by 2 mL Heparin 10 units/mL to lock. Reference Policy CM C-34H Central Line Policy.
[Order 1 End] [Order 2 Start] Name: heparin lock flush 10 UNIT/ML injection 20 Units Signed Summary: 20 Units, Intravenous, PRN, Line Care, Starting 05/17/19 at 1133, For 30 days
Verify blood return before use. Flush with 10 mL of Sodium Chloride 0.9 % before and after infusions or blood sampling followed-by 2 mL Heparin 10 units/mL to lock.Reference Policy C-34H Central Line Policy.
[Order 2 End] [Order 3 Start] Name: sodium chloride (preservative free) 0.9 % flush 10 mL Signed Summary: 10 mL, Intravenous, Every 12 hours, First dose on 05/17/19 at 1145, For 30 days
WHEN NOT IN USE - Verify blood return before use. Flush with 10 mL of Sodium Chloride 0.9 % and 2 mL Heparin 10 units/mL.Reference Policy C-34H Central Line Policy.
[Order 3 End] [Order 4 Start] Name: heparin lock flush 10 UNIT/ML injection 20 Units Signed Summary: 20 Units, Intravenous, Every 12 hours, First dose on 05/17/19 at 1145, For 30 days
WHEN NOT IN USE - Verify blood return before use. Flush with 10 mL of Sodium Chloride 0.9 % and 2 mL Heparin 10 units/mL.Reference Policy C-34H Central Line Policy.
[Order 4 End] [facility] Medication administered onsite Levothyroxine Sodium 0.05 MG Oral Tablet levothyroxine (SYNTHROID, LEVOTHROID) tablet 100 mcg levothyroxine (SYNTHROID, LEVOTHROID) tablet 100 mcg 0 05/17/2019 09:00:00 AM EDT 100 ug Oral active 100 mcg, Oral, Every morning, First dose (after last modification) on 05/17/19 at 0900, For 30 days [facility] Medication administered onsite Insulin Lispro 100 UNT/ML Injectable Rafiq ution [Humalog] insulin lispro (HumaLOG) injection LOW DOSE EATING INSULIN patients 1-8 Units insulin lispro (HumaLOG) injection LOW DOSE EATING INSULIN patients 1-8 Units 05/17/2019 08:00:00 AM EDT Subcutaneous active 1-8 Units, Subcutaneous, Three Times Daily-With Meals, First dose on 05/17/19 at 0800, For 30 days
Nursing MUST open the 'SQ Insulin Dosing Charts' Sidebar Report, or, the Patient Summary or Summary Report within the ED.
[facility] Medication administered onsite sodium polystyrene (KAYEXALATE) powder 15 g [id number] 05/17/2019 04:15:00 AM EDT 15 g Oral completed 15 g, Oral, Once, 05/17/19 at 0415, For 1 dose
Mix with 60 mL water and shake well.
[facility] Medication administered onsite Cholecalciferol 1000 UNT Oral Tablet Vit miranda D3 (CHOLECALCIFEROL) tablet 2,000 Units Vitamin D3 (CHOLECALCIFEROL) tablet 2,000 Units 2019 10:00:00 PM EDT 2000 U Oral active 2,000 Un its, Oral, Nightly, First dose on Sun05/16/19 at 2200, For 30 days
25 mcg vitamin D3 = 1,000 International Units vitamin D3.
[facility] Medication administered onsite Metoprolol Tartrate 50 MG Oral Tablet metoprolol (LOPR ESSOR) tablet 50 mg metoprolol (LOPRESSOR) tablet 50 mg 05/16/2019 09:00:00 PM EDT 50 mg Oral active 50 mg, Oral, 2 Times Daily, First dose on Sun05/16/19 at 2100, For 30 days [facility] Medication administered onsite Lisinopril 5 MG Oral Tablet lisinopril (PRINIVIL,ZESTR IL) tablet 10 mg lisinopril (PRINIVIL,ZESTRIL) tablet 10 mg 05/16/2019 09:00:00 PM EDT 10 mg Oral active 10 mg, Oral, E very evening, First dose on Sun05/16/19 at 2100, For 30 days [facility] Medication administered onsite atorvastatin 40 MG Oral Tablet atorvastatin (LIPITOR) tablet 40 mg atorvastatin (LIPITOR) tablet 40 mg 05/16/2019 09:00:00 PM EDT 40 mg Oral active 40 mg, Oral, Every evening, First dose on Sun05/16/19 at 2100, For 30 days [facility] Medication administered onsite Glucagon 1 MG Injection glucagon (human recombinant) ( GLUCAGEN) injection 1 mg glucagon (human recombinant) (GLUCAGEN) injection 1 mg 05/16/2019 06:42:47 PM EDT 1 mg Intramuscular active 1 mg, Intramuscular, PRN, for glucose <55 without IV access, Starting Sun05/16/19 at 1842, For 30 days [facility] Medication administered onsite Glucose 0.4 MG/MG Oral Gel glucose (GLUTOSE) 40 % oral gel 15 g glucose (GLUTOSE) 40 % oral gel 15 g 05/16/2019 06:42:47 PM EDT 15 g Oral active 15 g, Oral, PRN, Low blood s ugar, for gluose 55-69 mg/dl and able to take PO, Starting Sun05/16/19 at 1842, For 30 days [facility] Medication administered onsite dextrose 50 % IV solution 25 mL [id number] 05/16/2019 06:42:47 PM E DT 25 mL Intravenous active 25 mL, Intrav enous, PRN, Other, blood glucose <55, Starting Sun05/16/19 at 1842, For 30 days
Not for midline administration.
[facility] Medication administered onsite iohexol (OMNIPAQUE) 240 MG/ML contrast 20 mL [id number] 05:57:07 PM EDT 20 mL Oral completed 20 mL, Oral, O nce PRN, Contrast, Per Protocol, Starting Sun05/16/19 at 1757, For [address] to tell RN administration time of first dose. Dilute in 500 mL liquid x1 Now per protocol. Use "Contrast dose chart" link for dosing guidelines.
[facility] Medication administered onsite iohexol (OMNIPAQUE) 240 MG/ML contrast 20 mL [id number] 05:57:07 PM EDT 20 mL Oral completed 20 mL, Oral, O nce PRN, Contrast, Per Protocol, Starting Sun05/16/19 at 1757, For [address] Scanner prior. call manager to CT.Dilute in 500 mL liquid x1 non categorical preschool teacher to CT scan - per protocol. Use "Contrast dose chart" link for dosing guidelines.
[facility] Medication administered onsite Acetaminophen 325 MG / Hydrocodone Hector trate 5 MG Oral Tablet HYDROcodone- acetaminophen (LORTAB) 5-325 MG per tablet 1 tablet HYDROcodone-acetaminophen (LORTAB) 5-325 MG per tablet 1 tablet 05/16/2019 05:19:56 PM EDT 1 {tbl} Oral active 1 tablet, Oral, Every 6 hours PRN, Moderate Pain (Pain Scale Score 4-6), Starting Sun05/16/19 at 1719, For 6 days 14 hours
Maximum daily dose of acetaminophen is 3,000 mg from all sources in 24 hours.
[facility] Medication administered onsite Allopurinol 300 MG Oral Tablet allopurinol (ZYLOPRIM) tablet 300 mg allopurinol (ZYLOPRIM) tablet 300 mg 05/16/2019 05:15:00 PM EDT 300 mg Oral active 300 mg, Oral, Daily Standard, First dose on Sun at 1715, For 8 doses [facility] Medication administered onsite Acetaminophen 325 MG Oral Tablet acetaminophen (TYLENO L) tablet 650 mg acetaminophen (TYLENOL) tablet 650 mg 05/16/2019 05:12:58 PM EDT 65 0 mg Oral active 650 mg, Oral, E very 6 hours PRN, Mild Pain (Pain Scale Score 1- 3), Starting Sun05/16/19 at 1712, For 30 days
Maximum daily dose of acetaminophen is 3,000 mg from all sources in 24 hours.
[facility] Medication administered onsite NaCl infusion 0.9 % [id number] 05/16/2019 04:45:00 PM EDT Intravenous active at 100 mL/hr, Intrav enous, Continuous, Starting Sun05/16/19 at 1645, For 30 days [facility] Medication administered onsite Glucagon 1 MG Injection glucagon (human recombinant) ( GLUCAGEN) injection 1 mg glucagon (human recombinant) (GLUCAGEN) injection 1 mg 05/16/2019 04:41:30 PM EDT 1 mg Intramuscular active 1 mg, Intramuscular, PRN, for glucose <55 without IV access, Starting Sun05/16/19 at 1641, For 30 days [facility] Medication administered onsite dextrose 50 % IV solution 25 mL [id number] 05/16/2019 04:41:30 PM E DT 25 mL Intravenous active 25 mL, Intrav enous, PRN, Other, blood glucose <55, Starting Sun05/16/19 at 1641, For 30 days
Not for midline administration.
[facility] Medication administered onsite Glucose 0.4 MG/MG Oral Gel glucose (GLUTOSE) 40 % oral gel 15 g glucose (GLUTOSE) 40 % oral gel 15 g 05/16/2019 04:41:30 PM EDT 15 g Oral active 15 g, Oral, PRN, Low blood s ugar, for gluose 55-69 mg/dl and able to take PO, Starting Sun05/16/19 at 1641, For 30 days [facility] Medication administered onsite Bisacodyl 10 MG Rectal Suppository bisacodyl (DULCOLAX ) suppository 10 mg bisacodyl (DULCOLAX) suppository 10 mg 05/16/2019 04:39:56 PM EDT 10 mg Rectal active 10 mg, Rectal, Daily PRN, Constipation, Constipation, Starting 05/16/19 at 1639, For 30 days [facility] Medication administered onsite 50 mg 04/09/2019 12:00:00 AM EST tablet 60 TAKE ONE TABLET BY MOUTH TWICE A DAY TAKE ONE TABLET BY MOUTH TWICE A DAY SOLD: 05/11/2019 [facility] 50 mg 04/09/2019 12:00:00 AM EST tablet 60 TAKE ONE TABLET BY MOUTH TWICE A DAY TAKE ONE TABLET BY MOUTH TWICE A DAY SOLD: 04/11/2019 [facility] 500 mg 04/09/2019 12:00:00 AM EST tablet 30 TAKE ONE TABLET BY MOUTH EVERY EVENING WITH MEAL TAKE ONE TABLET BY MOUTH EVERY EVENING WITH MEAL SOLD: 05/11/2019 [facility] 500 mg 04/09/2019 12:00:00 AM EST tablet 30 TAKE ONE TABLET BY MOUTH EVERY EVENING WITH MEAL TAKE ONE TABLET BY MOUTH EVERY EVENING WITH MEAL SOLD: 04/11/2019 [facility] Naproxen sodium 220 MG Oral Capsule [Aleve] Aleve 220 MG Kesha ve 220 MG 04/08/2019 12:00:00 AM EST active 1 capsu le with food or milk as needed eCW1 ([facility]) Naproxen sodium 220 MG Oral Capsule [Aleve] Aleve 220 MG Kesha ve 220 MG 04/08/2019 12:00:00 AM EST 1.0 {capsule_with_food_or_milk_as_needed} suspended Aleve 220 MG eCW1 ([facility]) Metformin hydrochloride 500 MG Oral Tablet Metformin H Cl 500 MG Metformin HCl 500 MG 04/08/2019 12:00:00 AM EST active 1 tablet with a meal eCW1 ([facility]) Naproxen sodium 220 MG Oral Capsule [Aleve] Aleve 220 MG Kesha ve 220 MG 04/08/2019 12:00:00 AM EST 1.0 {capsule_with_food_or_milk_as_needed} active Aleve 220 MG eCW1 ([facility]) Naproxen sodium 220 MG Oral Capsule [Aleve] Aleve 220 MG Kesha ve 220 MG 04/08/2019 12:00:00 AM EST 1.0 {capsule_with_food_or_milk_as_needed} active Aleve 220 MG eCW1 ([facility]) Naproxen sodium 220 MG Oral Capsule [Aleve] Aleve 220 MG Kesha ve 220 MG 04/08/2019 12:00:00 AM EST 1.0 {capsule_with_food_or_milk_as_needed} active Aleve 220 MG eCW1 ([facility]) Naproxen sodium 220 MG Oral Capsule [Aleve] Aleve 220 MG Kesha ve 220 MG 04/08/2019 12:00:00 AM EST active 1 capsu le with food or milk as needed eCW1 ([facility]) Naproxen sodium 220 MG Oral Capsule [Aleve] Aleve 220 MG Kesha ve 220 MG 04/08/2019 12:00:00 AM EST 1.0 {capsule_with_food_or_milk_as_needed} suspended Aleve 220 MG eCW1 ([facility]) Naproxen sodium 220 MG Oral Capsule [Aleve] Aleve 220 MG Kesha ve 220 MG 04/08/2019 12:00:00 AM EST 1.0 {capsule_with_food_or_milk_as_needed} suspended Aleve 220 MG eCW1 ([facility]) Naproxen sodium 220 MG Oral Capsule [Aleve] Aleve 220 MG Kesha ve 220 MG 04/08/2019 12:00:00 AM EST 1.0 {capsule_with_food_or_milk_as_needed} active Aleve 220 MG eCW1 ([facility]) 10 mg 03/07/2019 12:00:00 AM EST tablet 30 TAKE ONE TABLET BY MOUTH EVERY DAY TAKE ONE TABLET BY MOUTH EVERY DAY SOLD: 08/17/2019 [facility] 10 mg 03/07/2019 12:00:00 AM EST tablet 30 TAKE ONE TABLET BY MOUTH EVERY DAY TAKE ONE TABLET BY MOUTH EVERY DAY SOLD: 04/11/2019 [facility] 10 mg 03/07/2019 12:00:00 AM EST tablet 30 TAKE ONE TABLET BY MOUTH EVERY DAY TAKE ONE TABLET BY MOUTH EVERY DAY SOLD: 06/13/2019 [facility] 10 mg 03/07/2019 12:00:00 AM EST tablet 30 TAKE ONE TABLET BY MOUTH EVERY DAY TAKE ONE TABLET BY MOUTH EVERY DAY SOLD: 05/11/2019 [facility] 10 mg 03/07/2019 12:00:00 AM EST tablet 30 TAKE ONE TABLET BY MOUTH EVERY DAY TAKE ONE TABLET BY MOUTH EVERY DAY SOLD: 07/17/2019 [facility] 10 mg 03/07/2019 12:00:00 AM EST tablet 30 TAKE ONE TABLET BY MOUTH EVERY DAY TAKE ONE TABLET BY MOUTH EVERY DAY SOLD: 03/13/2019 [facility] 50 mg 02/05/2019 12:00:00 AM EST tablet 60 TAKE ONE TABLET BY MOUTH TWICE A DAY TAKE ONE TABLET BY MOUTH TWICE A DAY SOLD: 03/13/2019 [facility] 75 mcg 12/31/2018 12:00:00 AM EST tablet 30 TAKE ONE TABLET BY MOUTH EVERY MORNING ON EMPTY STOMACH TAKE ONE TABLET BY MOUTH EVERY MORNING O N EMPTY STOMACH SOLD: 04/11/2019 [facility] 75 mcg 12/31/2018 12:00:00 AM EST tablet 30 TAKE ONE TABLET BY MOUTH EVERY MORNING ON EMPTY STOMACH TAKE ONE TABLET BY MOUTH EVERY MORNING O N EMPTY STOMACH SOLD: 03/13/2019 [facility] 75 mcg 12/31/2018 12:00:00 AM EST tablet 30 TAKE ONE TABLET BY MOUTH EVERY MORNING ON EMPTY STOMACH TAKE ONE TABLET BY MOUTH EVERY MORNING O N EMPTY STOMACH SOLD: 05/11/2019 [facility] 40 mg 12/04/2018 12:00:00 AM EDT tablet 30 TAKE ONE TABLET BY MOUTH EVERY DAY TAKE ONE TABLET BY MOUTH EVERY DAY SOLD: 05/11/2019 [facility] 40 mg 12/04/2018 12:00:00 AM EDT tablet 30 TAKE ONE TABLET BY MOUTH EVERY DAY TAKE ONE TABLET BY MOUTH EVERY DAY SOLD: 04/11/2019 [facility] 1,000 mg 12/04/2018 12:00:00 AM EDT tablet 60 TAKE ONE TABLET BY MOUTH TWICE A DAY WITH MEALS TAKE ONE TABLET BY MOUTH TWICE A DAY WITH MEALS SOLD: 04/11/2019 [facility] 1,000 mg 12/04/2018 12:00:00 AM EDT tablet 60 TAKE ONE TABLET BY MOUTH TWICE A DAY WITH MEALS TAKE ONE TABLET BY MOUTH TWICE A DAY WITH MEALS SOLD: 05/11/2019 [facility] 40 mg 12/04/2018 12:00:00 AM EDT tablet 30 TAKE ONE TABLET BY MOUTH EVERY DAY TAKE ONE TABLET BY MOUTH EVERY DAY SOLD: 03/13/2019 [facility] 1,000 mg 12/04/2018 12:00:00 AM EDT tablet 60 TAKE ONE TABLET BY MOUTH TWICE A DAY WITH MEALS TAKE ONE TABLET BY MOUTH TWICE A DAY WITH MEALS SOLD: 03/13/2019 [facility] Levothyroxine Sodium 0.1 MG Oral Tablet Levothyroxine Sodium 100 MCG Oral Tablet (SYNTHROID, LEVOTHROID) Levothyroxine Sodium 100 MCG Oral Tablet (SYNTHROID, LEVOTHROID) 100 ug Oral aborted Take 100 mc g by mouth Daily [facility] Cholecalciferol 2000 UNT Oral Tablet Vitamin D 50 MCG (1999) Oral Tablet Vitamin D 50 MCG (1999) Oral Tablet 2000 U Oral aborted Take 2,000 Units by mouth daily [facility] Metformin hydrochloride 1000 MG Oral Tab let metFORMIN HCl 1000 MG Oral Tablet (GLUCOPHAGE) metFORMIN HCl 1000 MG Oral Tablet (GLUCOPHAGE) 1000 mg Oral aborted Take 1,000 mg by mouth every morning [facility] Metoprolol Tartrate 50 MG Oral Tablet Me toprolol Tartrate 50 MG Oral Tablet (LOPRESSOR) Metoprolol Tartrate 50 MG Oral Tablet (LOPRESSOR) 50 mg Oral aborted Take 50 mg by mouth Two Time s Daily [facility] atorvastatin 40 MG Oral Tablet Atorvastatin Calcium 40 MG Oral Tablet (LIPITOR) Atorvastatin Calcium 40 MG Oral Tablet (LIPITOR) 40 mg Oral aborted Take 40 mg by mouth every evening [facility] Lisinopril 10 MG Oral Tablet Lisinopril 10 MG Oral Tab let (PRINIVIL,ZESTRIL) Lisinopril 10 MG Oral Tablet (PRINIVIL,ZESTRIL) 10 mg Oral aborted Take 10 mg by mouth daily [facility] Levothyroxine Sodium 0.05 MG Oral Tablet Levothyroxine Sodium 50 MCG Oral Tablet (SYNTHROID) Levothyroxine Sodium 50 MCG Oral Tablet (SYNTHROID) 50 ug Oral aborted Take 50 mcg by mouth [facility] Levothyroxine Sodium 0.025 MG Oral Table t Levothyroxine Sodium 25 MCG Oral Tablet (SYNTHROID) Levothyroxine Sodium 25 MCG Oral Tablet (SYNTHROID) 25 ug Oral aborted Take 25 mcg by mouth [facility] Insurance Providers Payer name Policy type / Coverage type Policy ID Covered libertarian ID Covered libertarian's relationship to chu Policy Chu Plan Information CORI [id number] SP [id number] CORI I [id number] Self [id number] MEDICAID M [id number] Self [id number] CORI EXCHANGE U [id number] Self [id number] [place] [id number] S [id number] CORI [employer] [facility] [place] [id number] SP [id number] CORI EXCHANGE U [id number] Self [id number] ANSI-Commercial [id number] ANSI-Commercial [id number] ANSI-Commercial [id number] SELF PAY ONLY [id number] SP [id number] [facility] MCDO [id number] SP [id number] [facility] [id number] SP [id number] SELF PAY ONLY [id number] SP [id number] [facility] Health Maintenance Organization (HMO) [id number] Self [id number] [employer] Compensation [id number] Self [id number] [facility] Community Plan Commercial [id number] Self [id number] [facility] COMM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, unspecified laterality Problem 01/29/2020 12:00:00 AM EST eCW1 ([facility]) [id number] Precordial pain Precordial pain Problem 12/15/2019 12:0 0:00 AM EDT MEDENT ([facility]) [id number] Dyspnea Dyspnea Problem 12/15/2019 12:00:00 AM ED T [facility] ([facility]) [id number] Electrocardiogram abnormal Electrocardiogram abnormal Problem 12/15/2019 12:00:00 AM EDT [facility] ([facility]) [id number] Essential hypertension Essential hypertension Problem 12/15/2019 12:00:00 AM EDT [facility] ([facility]) [id number] Disorder of pericardium Disorder of pericardium Proble m 12/15/2019 12:00:00 AM EDT [facility] ([facility]) [id number] Coronary arteriosclerosis Coronary arteriosclerosis Pr oblem 12/15/2019 12:00:00 AM EDT [facility] ([facility]) E04.9 [id number] Enlarged thyroid Problem 09/09/2019 12:00:00 AM EDT eCW1 ([facility]) G93.89 [id number] Brain mass Problem 05/27/2019 12:00:00 AM ED T eCW1 ([facility]) C34.90 [id number] Small cell lung cancer Problem 05/27/2019 12 :00:00 AM EDT eCW1 ([facility]) F17.218 [id number] Cigarette nicotine d ependence with other nicotine- induced disorder Problem 05/27/2019 12:00:00 AM EDT eCW1 ([facility]) G93.89 [id number] Brain mass Problem 05/27/2019 12:00:00 AM ED T eCW1 ([facility]) C34.90 [id number] Small cell lung cancer Problem 05/27/2019 12 :00:00 AM EDT eCW1 ([facility]) F17.218 [id number] Cigarette nicotine d ependence with other nicotine- induced disorder Problem 05/27/2019 12:00:00 AM EDT eCW1 ([facility]) C79.49 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 Secondary malignant neoplasm of other parts of nervous system Diagnosis 06:25:46 AM [facility] C79.31 Secondary malignant neoplasm of brain Se condary malignant neoplasm of brain Diagnosis 03/17/2020 06:25:46 AM [facility] S32.019A Unspecified fracture of firs t lumbar vertebra, initial encounter for closed fracture Unspecified fracture of first lumbar solis tebra, initial encounter for closed fracture Diagnosis 02/24/2020 10:54:42 AM [facility] follow follow Diagnosis 02/24/2020 09:44:13 AM [facility] S32.018A Other fracture of first lumb ar vertebra, initial encounter for closed fracture Other fracture of first lumbar vertebra, initial encounter for closed fracture Diagnosis 01/26/2020 01:02:24 PM [facility] on treat on treat Diagnosis 01/16/2020 02:51:46 PM [facility] follow up follow up Diagnosis 11/19/2019 09:43:53 AM [facility] treat treat Diagnosis 10/15/2019 03:23:59 PM [facility] C80.1 Malignant (primary) neoplasm, unspecifie d Malignant (primary) neoplasm, unspecified Diagnosis 09/26/2019 10:33:00 AM [facility] C34.90 Malignant neoplasm of unspecified part o f unspecified bronchus or lung Malignant neoplasm of unspecified part of unspecified bronchus or lung Diagnosis 09/25/2019 09:52:04 PM [facility] ct sim ct sim Diagnosis 09/24/2019 01:45:54 PM [facility] Z51.5 Encounter for palliative care Encounter for palliative care Diagnosis 07/23/2019 01:31:05 PM [facility] Small cell carcinoma Small cell carcinoma Diagnosis 05/17/2019 12:00:00 AM [facility] superior vena cava syndrome, lung CA, 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 03/31/2020 08:14:00 AM EST Small cell lung cancerSecondary malignant neoplasm of brain and spinal cord [facility] Small cell lung cancer Secondary malignant neoplasm of brain an d spinal cord MAGNESIUM MAGNESIUM LEVEL STAT 03/31/2020 8:14 AM EST 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 03/31/2020 08:14:00 AM EST Small cell lung cancerSecondary malignant neoplasm of brain and spinal cord [facility] Small cell lung cancer Secondary malignant neoplasm of brain an d spinal cord COMPREHENSIVE METABOLIC PANEL COMPREHENSIVE METABOLIC PANEL STA T 03/31/2020 8:14 AM EST 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 03/31/2020 08:14:00 AM EST Small cell lung cancerSecondary malignant neoplasm of brain and spinal cord [facility] Small cell lung cancer Secondary malignant neoplasm of brain an d spinal cord MRI BRAIN BRAIN STEM W/O &W/CONTRAST MATERIAL MR BRAI N WITH AND WITHOUT CONTRAST [id number] Routine 02/23/2020 10:16 AM EST Small cell lung cancer 02/23/2020 10:16:00 AM EST Small cell [facility] Small cell lung cancer BLOOD COUNT COMPLETE AUTO&AUTO DIFRNTL WBC COUNT CBC AND DIFFER ENTIAL Routine 01/21/2020 11:03 AM EST Small cell lung cancer 01/21/2020 11:03:00 AM EST Small cell [facility] Small cell lung cancer THYROID STIMULATING HORMONE TSH TSH Routine 01/21/20 20 11:03 AM EST Small cell lung cancer 01/21/2020 11:03:00 AM EST Small cell [facility] Small cell lung cancer COMPREHENSIVE METABOLIC PANEL COMPREHENSIVE METABOLIC PANEL STA T 01/21/2020 11:03 AM EST Small cell lung cancer 01/21/2020 11:03:00 AM EST Small cell [facility] Small cell lung cancer MRI BRAIN BRAIN STEM W/O &W/CONTRAST MATERIAL MR BRAI N WITH AND WITHOUT CONTRAST [id number] Routine 01/19/2020 2:08 PM EST Brain metastases 01/19/2020 02:08:00 PM EST Brain metastases Ups [facility] Brain metastases THER RAD SIMULAJ-AIDED FIELD SETTING COMPLEX CT SIMUL ATION AT RAD ONC (IN OFFICE) Routine 01/12/2020 1:39 PM EST Small cell lung cancer 01/12/2020 01:39:00 PM EST Small cell [facility] Small cell lung cancer BONE &/JOINT IMAGING WHOLE BODY NM BONE SCAN IMAGING WHOLE BODY [id number] Routine 01/12/2020 12:36 PM EST Small cell lung cancer 01/12/2020 12:36:22 PM EST Small cell [facility] Small cell lung cancer CT ABDOEN & PELVIS W/CONTRAST MATERIAL CT ABDOMEN PELVIS WI TH CONTRAST [id number] Routine 01/12/2020 12:05 PM EST Small cell lung cancer 01/12/2020 12:05:00 PM EST Small cell [facility] Small cell lung cancer RADIOLOGY REPORT RADIOLOGY REPORT 01/07/2020 12:52 PM EST 01/07/2020 12:52:10 PM [facility] BLOOD COUNT COMPLETE AUTO&AUTO DIFRNTL WBC COUNT CBC AND DIFFER ENTIAL STAT 01/02/2020 12:57 PM EST Small cell lung cancer 01/02/2020 12:57:00 PM EST Small cell [facility] Small cell lung cancer THYROID STIMULATING HORMONE TSH TSH STAT 01/02/20 12:57 PM EST Small cell lung cancer 01/02/2020 12:57:00 PM EST Small cell [facility] Small cell lung cancer COMPREHENSIVE METABOLIC PANEL COMPREHENSIVE METABOLIC PANEL STA T 01/02/2020 12:57 PM EST Small cell lung cancer 01/02/2020 12:57:00 PM EST Small cell [facility] Small cell lung cancer BLOOD COUNT COMPLETE AUTO&AUTO DIFRNTL WBC COUNT CBC AND DIFFER ENTIAL STAT 12/25/2019 12:02 PM EDT Small cell lung cancer 12/25/2019 12:02:00 PM EDT Small cell [facility] Small cell lung cancer THYROID STIMULATING HORMONE TSH TSH STAT 12/25/19 20 12:02 PM EDT Small cell lung cancer 12/25/2019 12:02:00 PM EDT Small cell [facility] Small cell lung cancer COMPREHENSIVE METABOLIC PANEL COMPREHENSIVE METABOLIC PANEL STA T 12/25/2019 12:02 PM EDT Small cell lung cancer 12/25/2019 12:02:00 PM EDT Small cell [facility] Small cell lung cancer BLOOD COUNT COMPLETE AUTO&AUTO DIFRNTL WBC COUNT CBC AND DIFFER ENTIAL STAT 12/04/2019 11:40 AM EDT Small cell lung cancer 12/04/2019 11:40:00 AM EDT Small cell [facility] Small cell lung cancer THYROID STIMULATING HORMONE TSH TSH STAT 12/04/19 20 11:40 AM EDT Small cell lung cancer 12/04/2019 11:40:00 AM EDT Small cell [facility] Small cell lung cancer COMPREHENSIVE METABOLIC PANEL COMPREHENSIVE METABOLIC PANEL STA T 12/04/2019 11:40 AM EDT Small cell lung cancer 12/04/2019 11:40:00 AM EDT Small cell [facility] Small cell lung cancer RADIOLOGY REPORT RADIOLOGY REPORT 11/17/2019 12:51 PM EDT 11/17/2019 12:51:38 PM [facility] XR CHEST FRONTAL ONLY [id number] XR CHEST FRONTAL ONLY [id number] STAT 11/13/2019 1:29 PM EDT Small cell lung cancer 11/13/2019 01:29:59 PM EDT Small cell [facility] Small cell lung cancer BLOOD COUNT COMPLETE AUTO&AUTO DIFRNTL WBC COUNT CBC AND DIFFER ENTIAL STAT 11/13/2019 11:36 AM EDT Small cell lung cancer 11/13/2019 11:36:00 AM EDT Small cell [facility] Small cell lung cancer THYROID STIMULATING HORMONE TSH TSH STAT 11/13/19 20 11:36 AM EDT Small cell lung cancer 11/13/2019 11:36:00 AM EDT Small cell [facility] Small cell lung cancer COMPREHENSIVE METABOLIC PANEL COMPREHENSIVE METABOLIC PANEL STA T 11/13/2019 11:36 AM EDT Small cell lung cancer 11/13/2019 11:36:00 AM EDT Small cell [facility] Small cell lung cancer BLOOD COUNT COMPLETE AUTO&AUTO DIFRNTL WBC COUNT CBC AND DIFFER ENTIAL Routine 10/23/2019 11:53 AM EDT Small cell lung cancer 10/23/2019 11:53:00 AM EDT Small cell [facility] Small cell lung cancer THYROID STIMULATING HORMONE TSH TSH Routine 10/23/19 20 11:53 AM EDT Small cell lung cancer 10/23/2019 11:53:00 AM EDT Small cell katherine g cancer [facility] Small cell lung cancer COMPREHENSIVE METABOLIC PANEL COMPREHENSIVE METABOLIC PANEL STA T 10/23/2019 11:53 AM EDT Small cell lung cancer 10/23/2019 11:53:00 AM EDT Small cell [facility] Small cell lung cancer MRI BRAIN BRAIN STEM W/O &W/CONTRAST MATERIAL MR YAZMIN Finney WITH AND WITHOUT CONTRAST [id number] Routine 09/15/2019 3:55 PM EDT Small cell carcinoma 09/15/2019 07:55:22 PM EDT Small cell [facility] Small cell carcinoma IRON TOTAL FE BINDING CAPACITY STAT 09/11/2019 8:1 0 AM EDT Small cell carcinoma 09/11/2019 12:10:00 PM EDT Small cell [facility] Small cell carcinoma BLOOD COUNT COMPLETE AUTO&AUTO DIFRNTL WBC COUNT CBC AND DIFFER ENTIAL Routine 09/11/2019 8:10 AM EDT Small cell carcinoma 09/11/2019 12:10:00 PM EDT Small cell [facility] Small cell carcinoma THYROID STIMULATING HORMONE TSH TSH Routine 09/11/19 8:10 AM EDT Small cell carcinoma 09/11/2019 12:10:00 PM EDT Small cell [facility] Small cell carcinoma THIAMINE VITAMIN B1 Routine 09/11/2019 8:10 AM EDT Small cell carcinoma 09/11/2019 12:10:00 PM EDT Small cell [facility] Small cell carcinoma PYRIDOXAL PHOSPHATE VITAMIN B6 Routine 09/11/2019 8:10 AM EDT Small cell carcinoma 09/11/2019 12:10:00 PM EDT Small cell [facility] Small cell carcinoma FERRITIN FERRITIN LEVEL STAT 09/11/2019 8:10 AM EDT Small cell carcinoma 09/11/2019 12:10:00 PM EDT Small cell [facility] Small cell carcinoma CYANOCOBALAMIN VITAMIN B-12 VITAMIN B12 STAT 09/11/2019 8:10 AM EDT Small cell carcinoma 09/11/2019 12:10:00 PM EDT [facility] Small cell carcinoma COMPREHENSIVE METABOLIC PANEL COMPREHENSIVE METABOLIC PANEL STA T 09/11/2019 8:10 AM EDT Small cell carcinoma 09/11/2019 12:10:00 PM EDT Small cell [facility] Small cell carcinoma FOLIC ACID SERUM FOLATE Routine 09/11/2019 8:07 AM EDT Small cell carcinoma 09/11/2019 12:07:00 PM EDT [facility] cell [facility] Small cell carcinoma IRON BINDING CAPACITY TOTAL FE BINDING CAPACITY Routine 08/20/2019 7:57 AM EDT 08/20/2019 11:57:00 AM EDT [facility] BLOOD COUNT COMPLETE AUTO&AUTO DIFRNTL WBC COUNT CBC AND DIFFER ENTIAL STAT 08/20/2019 7:57 AM EDT Small cell carcinoma 08/20/2019 11:57:00 AM EDT Small cell [facility] Small cell carcinoma THYROID STIMULATING HORMONE TSH TSH Routine 08/20/19 20 7:57 AM EDT Small cell carcinoma 08/20/2019 11:57:00 AM EDT [facility] Small cell carcinoma FERRITIN FERRITIN LEVEL Routine 08/20/2019 7:57 AM EDT 08/20/2019 11:57:00 AM [facility] CYANOCOBALAMIN VITAMIN B-12 VITAMIN B12 Routine 08/20/2019 7:57 AM EDT 08/20/2019 11:57:00 AM [facility] COMPREHENSIVE METABOLIC PANEL COMPREHENSIVE METABOLIC PANEL STA T 08/20/2019 7:57 AM EDT Small cell carcinoma 08/20/2019 11:57:00 AM EDT Small cell [facility] Small cell carcinoma BLOOD COUNT COMPLETE AUTO&AUTO DIFRNTL WBC COUNT CBC AND DIFFER ENTIAL STAT 07/23/2019 8:40 AM EDT Small cell carcinoma 07/23/2019 12:40:00 PM EDT Small cell [facility] Small cell carcinoma THYROID STIMULATING HORMONE TSH TSH Routine 07/23/2019 8:40 AM EDT 07/23/2019 12:40:00 PM T [facility] MAGNESIUM MAGNESIUM LEVEL STAT 07/23/2019 8:40 AM EDT Small cell carcinoma 07/23/2019 12:40:00 PM EDT [facility] Small cell carcinoma COMPREHENSIVE METABOLIC PANEL COMPREHENSIVE METABOLIC PANEL STA T 07/23/2019 8:40 AM EDT Small cell carcinoma 07/23/2019 12:40:00 PM EDT Small cell [facility] Small cell carcinoma MRI BRAIN BRAIN STEM W/O &W/CONTRAST MATERIAL MR BRAI N WITH AND WITHOUT CONTRAST [id number] Routine 07/14/2019 12:57 PM EDT Small cell carcinoma 07/14/2019 04:57:00 PM EDT Small cell [facility] Small cell carcinoma BLOOD COUNT COMPLETE AUTOMATED CBC AND DIFFERENTIAL Routine 07/02/2019 9:43 AM EDT Small cell carcinoma 07/02/2019 01:43:00 PM EDT Small cell [facility] Small cell carcinoma THYROID STIMULATING HORMONE TSH TSH Routine 07/02/2019 9:43 AM EDT 07/02/2019 01:43:00 PM [facility] MAGNESIUM MAGNESIUM LEVEL STAT 07/02/2019 9:43 AM EDT Small cell carcinoma 07/02/2019 01:43:00 PM EDT Small cell [facility] Small cell carcinoma COMPREHENSIVE METABOLIC PANEL COMPREHENSIVE METABOLIC PANEL STA T 07/02/2019 9:43 AM EDT Small cell carcinoma 07/02/2019 01:43:00 PM EDT Small cell [facility] Small cell carcinoma BLOOD COUNT COMPLETE AUTOMATED CBC AND DIFFERENTIAL STAT 06/11/2019 8:43 AM EDT Small cell carcinoma 06/11/2019 12:43:00 PM EDT Small cell [facility] Small cell carcinoma MAGNESIUM MAGNESIUM LEVEL Routine 06/11/2019 8:43 AM EDT 06/11/2019 12:43:00 PM [facility] COMPREHENSIVE METABOLIC PANEL COMPREHENSIVE METABOLIC PANEL STA T 06/11/2019 8:43 AM EDT Small cell carcinoma 06/11/2019 12:43:00 PM EDT Small cell [facility] Small cell carcinoma POCT GLUCOSE, DOCKED POCT GLUCOSE, DOCKED Routine 05/20/2019 12:01 PM EDT 05/20/2019 04:01:00 PM [facility] POCT GLUCOSE, DOCKED POCT GLUCOSE, DOCKED Routine 05/20/2019 8:25 AM EDT 05/20/2019 12:25:00 PM [facility] BLOOD COUNT COMPLETE AUTO&AUTO DIFRNTL WBC COUNT CBC AND DIFFER ENTIAL Routine 05/20/2019 2:20 AM EDT 05/20/2019 06:20:00 AM [facility] PHOSPHORUS INORGANIC PHOSPHORUS LEVEL Routine 05/20/2019 2:20 AM E DT 05/20/2019 06:20:00 AM [facility] MAGNESIUM MAGNESIUM LEVEL Routine 05/20/2019 2:20 AM EDT 05/20/2019 06:20:00 AM [facility] BASIC METABOLIC PANEL CALCIUM TOTAL BASIC METABOLIC PANEL Routi ne 05/20/2019 2:20 AM EDT 05/20/2019 06:20:00 AM EDT [facility] GLUCOSE QUANTITATIVE BLOOD XCPT REAGENT STRIP POCT GLUCOSEKATIUSKA Routine 05/19/2019 9:29 PM EDT 05/20/2019 01:29:00 AM [facility] GLUCOSE QUANTITATIVE BLOOD XCPT REAGENT STRIP POCT GLUCOSE, KATIUSKA SALEEM Routine 05/19/2019 5:14 PM EDT 05/19/2019 09:14:00 PM [facility] BONE &/JOINT IMAGING WHOLE BODY NM BONE SCAN IMAGING WHOLE BODY [id number] Routine 05/19/2019 2:10 PM EDT 05/19/2019 06:10:24 PM [facility] GLUCOSE QUANTITATIVE BLOOD XCPT REAGENT STRIP POCT GLUCOSEKATIUSKA Routine 05/19/2019 11:40 AM EDT 05/19/2019 03:40:00 PM [facility] GLUCOSE QUANTITATIVE BLOOD XCPT REAGENT STRIP POCT GLUCOSE, KATIUSKA SALEEM Routine 05/19/2019 8:09 AM EDT 05/19/2019 12:09:00 PM [facility] BLOOD COUNT COMPLETE AUTO&AUTO DIFRNTL WBC COUNT CBC AND DIFFER ENTIAL Routine 05/19/2019 1:33 AM EDT 05/19/2019 05:33:00 AM [facility] PHOSPHORUS INORGANIC PHOSPHORUS LEVEL Routine 05/19/2019 1:33 AM E DT 05/19/2019 05:33:00 AM [facility] MAGNESIUM MAGNESIUM LEVEL Routine 05/19/2019 1:33 AM EDT 05/19/2019 05:33:00 AM [facility] HEMOGLOBIN GLYCOSYLATED A1C HEMOGLOBIN A1C Routine 05/19/2019 1:33 AM EDT 05/19/2019 05:33:00 AM [facility] BASIC METABOLIC PANEL CALCIUM TOTAL BASIC METABOLIC PANEL Routi ne 05/19/2019 1:33 AM EDT 05/19/2019 05:33:00 AM EDT [facility] GLUCOSE QUANTITATIVE BLOOD XCPT REAGENT STRIP POCT GLUCOSEKATIUSKA Routine 05/18/2019 8:32 PM EDT 05/19/2019 12:32:00 AM [facility] GLUCOSE QUANTITATIVE BLOOD XCPT REAGENT STRIP POCT GLUCOSEKATIUSKA Routine 05/18/2019 5:17 PM EDT 05/18/2019 09:17:00 PM [facility] GLUCOSE QUANTITATIVE BLOOD XCPT REAGENT STRIP POCT GLUCOSEKATIUSKA Routine 05/18/2019 12:22 PM EDT 05/18/2019 04:22:00 PM [facility] GLUCOSE QUANTITATIVE BLOOD XCPT REAGENT STRIP POCT GLUCOSEKATIUSKA Routine 05/18/2019 8:30 AM EDT 05/18/2019 12:30:00 PM [facility] BLOOD COUNT COMPLETE AUTO&AUTO DIFRNTL WBC COUNT CBC AND DIFFER ENTIAL Routine 05/18/2019 2:50 AM EDT 05/18/2019 06:50:00 AM [facility] PHOSPHORUS INORGANIC PHOSPHORUS LEVEL Routine 05/18/2019 2:50 AM E DT 05/18/2019 06:50:00 AM [facility] MAGNESIUM MAGNESIUM LEVEL Routine 05/18/2019 2:50 AM EDT 05/18/2019 06:50:00 AM [facility] COMPREHENSIVE METABOLIC PANEL COMPREHENSIVE METABOLIC PANEL Rou julissa 05/18/2019 2:50 AM EDT 05/18/2019 06:50:00 AM EDT [facility] GLUCOSE QUANTITATIVE BLOOD XCPT REAGENT STRIP POCT GLUCOSEKATIUSKA Routine 05/17/2019 9:48 PM EDT 05/18/2019 01:48:00 AM [facility] PICC ULTRASOUND - BEDSIDE PROCEDURE PICC ULTRASOUND - BEDSI DE PROCEDURE Routine 05/17/2019 7:05 PM EDT 05/17/2019 11:05:00 PM [facility] GLUCOSE QUANTITATIVE BLOOD XCPT REAGENT STRIP POCT GLUCOSEKATIUSKA Routine 05/17/2019 6:45 PM EDT 05/17/2019 10:45:00 PM [facility] MRI BRAIN BRAIN STEM W/O &W/CONTRAST MATERIAL MR BRAI N WITH AND WITHOUT CONTRAST [id number] Routine 05/17/2019 6:34 PM EDT 05/17/2019 10:34:00 PM [facility] GLUCOSE QUANTITATIVE BLOOD XCPT REAGENT STRIP POCT GLUCOSEKATIUSKA Routine 05/17/2019 12:23 PM EDT 05/17/2019 04:23:00 PM [facility] TROPONIN QUANTITATIVE TROPONIN T Timed 05/17/2019 8:54 AM EDT 05/17/2019 12:54:00 PM EDT [facility] GLUCOSE QUANTITATIVE BLOOD XCPT REAGENT STRIP POCT GLUCOSE, DOC KED Routine 05/17/2019 8:16 AM EDT 05/17/2019 12:16:00 PM EDT [facility] BLOOD COUNT COMPLETE AUTO&AUTO DIFRNTL WBC COUNT CBC AND DIFFER ENTIAL Routine 05/17/2019 2:14 AM EDT 05/17/2019 06:14:00 AM EDT [facility] TROPONIN QUANTITATIVE TROPONIN T Timed 05/17/2019 2:14 AM EDT [facility]/17[facility]2019 [facility] COMPREHENSIVE METABOLIC PANEL Rere costa 05/17/2019 2:14 AM EDT 05/17/2019 06:14:00 AM EDT [facility] CT ABDOEN & PELVIS W/CONTRAST MATERIAL CT ABDOMEN PELVIS WI TH CONTRAST [id number] STAT 05/16/2019 10:59 PM EDT 05/17/2019 02:59:59 AM [facility] GLUCOSE QUANTITATIVE BLOOD XCPT REAGENT STRIP POCT GLUCOSE, DOC KED Routine 05/16/2019 8:56 PM EDT 05/17/2019 [facility]:56[facility] COMPLETE AUTO&AUTO DIFRNTL WBC COUNT CBC AND DIFFER ENTIAL Routine 05/16/2019 6:30 PM EDT 05/16/2019 10:30:00 PM [facility] TROPONIN QUANTITATIVE TROPONIN T Timed 05/16/2019 6:30 PM EDT 05/16/2019 [facility]:30[facility] COMPREHENSIVE METABOLIC PANEL COMPREHENSIVE METABOLIC PANEL Rere costa 05/16/2019 6:30 PM EDT 05/16/2019 10:30:00 PM EDT [facility] EKG 12-LEAD - CMAXX REPORT EKG 12-LEAD - CMAXX REPORT 05/16/2019 5:43 PM EDT 05/16/2019 09:43:47 PM EDT [facility] EKG 12-LEAD - CMAXX REPORT EKG 12-LEAD - CMAXX REPORT 05/16/2019 5:43 PM EDT 05/16/2019 09:43:47 PM EDT [facility] EKG 12-LEAD - CMAXX REPORT EKG 12-LEAD - CMAXX REPORT 05/16/2019 5:40 PM EDT 05/16/2019 09:40:11 PM EDT [facility] EKG 12-LEAD EKG 12-LEAD Routine 05/16/2019 5:40 PM EDT 05/16/2019 09:40:11 PM EDT [facility] GLUCOSE QUANTITATIVE BLOOD XCPT REAGENT STRIP POCT GLUCOSE, DOC KED Routine 05/16/2019 5:37 PM EDT 05/16/2019 09:37:00 PM EDT [facility] Results ID Date Data Source [id number] 03/31/2020 03:20:01 PM EST [facility] Name Value Range Interpretation Code Description Data Lynn rce(s) Supporting Document(s) Progress Note [facility] NVDGIl1zUeDHWhMh70/KWPblKYRon6RvTQlaMOg9HBwpDTFxG8GaXQF2tK2mTBL2GTeVUsFgPsIzGwLn lbm [file] ICAgICAgICAgICAgICAgICAgICAgICAgICAgICAgICAgICAgICAgICAgICAgICAgICAgICAgICAgICAN CiAgICAgICAgICAgICAgICAgICAgICAgICAgICAgIC AgICAgICAgICAgICAgICAgICAgICAgICAgICAgICAgICAgICAgICAgICAgICAgICAgICAgICAgICAgIC AgICAgICAgICANCiAgICAgICAgICAgICAgICAgICAgICAgICAgICAgICAgICAgICAgICAgICAgICAgIC AgICAgICAgICAgICAgICAgICAgICAgICAgICAgICAg ICAgICAgICAgICAgICAgICAgICANCiAgICAgICAgICAgICAgICAgICAgICAgICAgICAgICAgICAgICAg ICAgICAgICAgICAgICAgICAgICAgICAgICAgICAgICAgICAgICAgICAgICAgICAgICAgICAgICAgICAg ICANCiAgICAgICAgICAgICAgICAgICAgICAgICAgIC AgICAgICAgICAgICAgICAgICAgICAgICAgICAgICAgICAgICAgICAgICAgICAgICAgICAgICAgICAgIC AgICAgICAgICAgICANCiAgICAgICAgICAgICAgICAgICAgICAgICAgICAgICAgICAgICAgICAgICAgIC AgICAgICAgICAgICAgICAgICAgICAgICAgICAgICAg ICAgICAgICAgICAgICAgICAgICAgICANCiAgICAgICAgICAgICAgICAgICAgICAgICAgICAgICAgICAg ICAgICAgICAgICAgICAgICAgICAgICAgICAgICAgICAgICAgICAgICAgICAgICAgICAgICAgICAgICAg ICAgICANCiAgICAgICAgICAgICAgICAgICAgICAgIC AgICAgICAgICAgICAgICAgICAgICAgICAgICAgICAgICAgICAgICAgICAgICAgICAgICAgICAgICAgIC AgICAgICAgICAgICAgICANCiAgICAgICAgICAgICAgICAgICAgICAgICAgICAgICAgICAgICAgICAgIC AgICAgICAgICAgICAgICAgICAgICAgICAgICAgICAg ICAgICAgICAgICAgICAgICAgICAgICAgICANCiAgICAgICAgICAgICAgICAgICAgICAgICAgICAgICAg ICAgICAgICAgICAgICAgICAgICAgICAgICAgICAgICAgICAgICAgICAgICAgICAgICAgICAgICAgICAg ICAgICAgICANCjw/kTKpB1gqyPAtcxP4N9vxZi6TIz 5SKT1bg0NpELBtFYtahtDjGfzTWjAsHQHeVmxXNvd0IFbjMZ7FqALpO1TqZ5QrKVjbAT5YTHFpWBYleJ SjLVXeAOBrHtM1WYDxUArhAW9YlEIzPZjtXBEjHRUjVD7ZWBXzK074ozIdAV0RPq0LWkBtTS9lrc4VLQ cbTQWjMdbZVoc6JJnsFS7IoAGmsHAqPBJcMNUMDlJs I6flu5AuGsVpVSDDOSkuOM0It1ZcuMCgSRg+Wt6FLU4mc0UaSDkySFVpVX9ogy0CKKcLNrMsY3NhuCuv TECse2caMXGdSK5tnAPsJOG1YABsmi0tajZfNdMQo9lcn9qhYC4RSLU8SVPbOx7cKPTqITO9NiJ8UKFZ BP5UUXFsIJMnpSRkAUEkWOYMRQ1JKAzxNJO3NLWjaf FhfLDdQCaeVR7XHLTblcAbJTmiSQPICXb+Ci4KTJ2jg4XbFPeeLFEgLQ6dry5DPOtHEhGxO5F1kJZgV5 C0VKibZa0CFSAmBTFxFThsTISKKMhbNU4YXM3bsvR8BN7IzCMtKIUfUYExoIFwWHv0X88biHAaJJjfLB 0KICA+Antelmo+Tc2MZIBmVFDxNGYjScBkVQZCMuOnW4Hx N5WBx2RwF9DiSV10oRazckTqYXebXG9WQJ1qCUJaJJTASO4KuEXgyY8nkwKpJPQhEWDUFpBeM81ruLNj GXNeTCL4RVSuJt0IHYDqA6ZoazTfcSelrtYxCFLbCYELQG7PDJwtbnGalQRkbFkrKU38uOstDA9XKs4B MiEgFS2jdv3QoZDyQj5LJWJxIv0XSDCbZHSbSGYwMP V8WOEmDvWtCPslOKHhOLOeBNR8SSNfXPOjLG8WXzJtJTIfHLI9YdkrAVYcDBUmxu4TUKWmJSNeUDJ8RD OsXGKoZSHxIVjlIKKxXNSbGKO2AFDjYGVbGC6OOcKtSBScIBN7MwQmVWKcUPQrbm3OJJTqATXvOAs7Xx TgOXIaLZInOFiiJQOsBFYkKNZ6HFHkKUAfKY4DDpVy YHZdWTEsXdGoXRHoUAYvrj3XDKXuQXXhMnHqPqBfVRPlJPQeHKhqIXPwDAY5KhJiUGBhDMKqXU0PIlKv TRSyQZM0AzLcNLMrDXUdap1CFVRvPJFbDQX2IFUxSGWcXMRfTGlaEJDdGWU5GGH2SNIeOLSrRC2YSbYi KGJmSAJnVdOhTGZaPSAxbo5YEJRcWEKhChDgXERkDN DkBZIiKFgxQRSqFPU5JeO1RHOkWGXdWQ4ZWzIuCGKtTKW8EMHiHNWyLORbnt3KYLUjFKAuTgVpAWAcAD VrCEFoTPtzPZLaCHV7YlTwEIEwKYCuBT5HXfLfRFBhSOr2DpUuPVAwDXCwhg7HOQXoCQPxYTa2AVYzLO BuRYCkTYc9qvDbqKSmWBr3NP2EI2QendErSiLIAj6F o048RVIoJMWvZg3ZH4ulCb9vNAHuXZODHa3QXXp4XfqrY2UbWgN4HRIbIzWiCMOaDLBlYEXgDvR2Qlzr MWE+OIopHKKuNkQiBLk6AYCcXmDbNSMzOXUfYeXeDtn4GRWmOY6lOXWHHj9+DQpzdGFydHhyZWYNCjE5 OrL7MHwtJDNWAm9K ID Date Data Source [id number] 03/31/2020 01:17:29 PM [facility] Name Value Range Interpretation Code Description Data Lynn rce(s) Supporting Document(s) Progress Note [facility] IKQWMt1iJzALXnWg57/QNIvdBAHlk4YhVBvoEUk5YJypCJGiW3DeCZH7vX5lNPS8PTmNHcVbYyKxOwBe m [file] [employer] watch[employer]+S6AuFK4+zQRM5uRwF7uTNj+OJ29foXnH0GN8213uiju96vacOyOB38Neuw/sF+/c3uWbrtu74g+t6 [file] ICAgICAgICAgICAgICAgICAgICAgICAgICAgICAgICAgICAgICAgICAgICAgICAgICAgICAgICAgICAg ICAgICAgICAgICAgICAgICAgICAgICAgICAgDQogICAgICAgICAgICAgICAgICAgICAgICAgICAgICAg ICAgICAgICAgICAgICAgICAgICAgICAgICAgICAgIC AgICAgICAgICAgICAgICAgICAgICAgICAgICAgICAgICAgICAgDQogICAgICAgICAgICAgICAgICAgIC AgICAgICAgICAgICAgICAgICAgICAgICAgICAgICAgICAgICAgICAgICAgICAgICAgICAgICAgICAgIC AgICAgICAgICAgICAgICAgICAgDQogICAgICAgICAg ICAgICAgICAgICAgICAgICAgICAgICAgICAgICAgICAgICAgICAgICAgICAgICAgICAgICAgICAgICAg ICAgICAgICAgICAgICAgICAgICAgICAgICAgICAgDQogICAgICAgICAgICAgICAgICAgICAgICAgICAg ICAgICAgICAgICAgICAgICAgICAgICAgICAgICAgIC AgICAgICAgICAgICAgICAgICAgICAgICAgICAgICAgICAgICAgICAgDQogICAgICAgICAgICAgICAgIC AgICAgICAgICAgICAgICAgICAgICAgICAgICAgICAgICAgICAgICAgICAgICAgICAgICAgICAgICAgIC AgICAgICAgICAgICAgICAgICAgICAgDQogICAgICAg ICAgICAgICAgICAgICAgICAgICAgICAgICAgICAgICAgICAgICAgICAgICAgICAgICAgICAgICAgICAg ICAgICAgICAgICAgICAgICAgICAgICAgICAgICAgICAgDQogICAgICAgICAgICAgICAgICAgICAgICAg ICAgICAgICAgICAgICAgICAgICAgICAgICAgICAgIC AgICAgICAgICAgICAgICAgICAgICAgICAgICAgICAgICAgICAgICAgICAgDQogICAgICAgICAgICAgIC AgICAgICAgICAgICAgICAgICAgICAgICAgICAgICAgICAgICAgICAgICAgICAgICAgICAgICAgICAgIC AgICAgICAgICAgICAgICAgICAgICAgICAgDQogICAg ICAgICAgICAgICAgICAgICAgICAgICAgICAgICAgICAgICAgICAgICAgICAgICAgICAgICAgICAgICAg OTRbLMQwDHFnOHCzCHZbRUVuNRAiIMPlCTItWYLcQRDkXOHtQHs5S2nsJKJtIQVvXT8lNYx5Rb2+DQoN BlNvTCN2guFmsT0MZA2of2TlQZlnWSLhb3LgMTi4TR 7STIQnVOxhQJ2YFOrxzh2JCSEtTCLsuGILs4fkGcAzZAP3WXIsVewqMB8ZMNBnE0fwnfYdLEOiCDZSKS gtNHFDXYtfCCPZKO2IJiVdU6AynD65FVMPIw1+OQmwfpAuKaxXShR2DFNnu7VaBAe9BQ1EAYRzBqoio7 FuNxOaDWZCWCjvOB2VJSU1JUTvHNQhCw3VQBFhA299 hvFyVJ6AIz6RLaNbCJ5jkm5QXmXpVTXxZbcXOlg6ZAsbWY0AwVNhGAgKvw0ezbQcqtNPw4AvlaQxfENP iGu9dVMkSPNtopzfoTRbEAOeYT1LDXL3IICrKq8mWZGeDXMiEeCqCZDIWD5JVGRbZRStcNKaQFCtLRUB VT2EJIbmLYU6FLUnrwTcvCUpHQuxGD5EZXYfotMjMf kgMCBSDQo+Eh4ASE8zk3PyHGzbJDBsJS5hst7DUSsEHhIuO1Z2rEVvA0A5JPpqEk6FSLEhUCVqBgfiDD DUXJbiYN5EDO3lauC6GX5FsDShFJVgJSFjbLVrUIi5G92mrIEcFWrjNK0AIJS+Antelmo+Ce3JKKRmNFNrNA HmFuGsKSPOByKbM0GaS4UIv4NuS7SdCG24lWhmywSk WKyqSJ7QWW2zOITpWUAPXV1ZeZFzoV6voqHoVYNsMQVFUiAuK35toKGyYZJnLET4JLIsVx7RTZDpC7Dk nkKxrEzgwwSuBAHeYHBLUE4ZXWjpnhPxkALzfDnvEH06hAzkLA2KVi4ZPqFhZQ7yck6BdYPsCf1OGWCp Eh2HVLIvNSDxNWTtUMU7TOIiPhAdXYaaQKMxENYvBO M2GBVqCPIdUE2GDfWsNYScWue8FhaoJLVzQXOeni4SPMAkQGXnXVWmRKJtBPWjEKBiQSquTQEpGDCtQM X4EMHrIQCuHJ5HIwQfAGAhNZR4ZPOsYONnMQWrsb4YFGPjQANfJXB9KSTkGJVzWEJcZRzhBQAzHHW4MI J7SCZyFCSqCY6FKcGqFZBzKXtnAmRiLSXgZEOvwe3R VBNlHYJkCOL5SXKuEZPcMYElLDroTAQwNEL5LSr6SAZjMXFxPU1FYiIhZEOrFXL4FZJzYOVzREAcka9Y ZNOlNHWwZUU0CXUnWOEeRQEaQDudTICuNWYdOjY1IBNrGKEtRZ0DGxXkWRBeGPVrNVSvCOSlBTEjhb9Y VBBlJDTsIkA3DZHhRBAaPFMmDTcmWNYaOOOvDEmuXA HjJLFvYY8YFgZrCYDbNzX8JvmiAXLeCHMdsl8OBGJtEGLbMYS7FCIcWFQzUGSdCLtoTYVwZBT5HUJsVJ IoUPOuGQ7OZcQoNINiRoS9ZFXeTNEdVSNykn3KCHSrQMKyZOv9ZJFsDSMoEQQzRYujVYRrNBU2QykcNM QgGUXlJF3FOiIxLSDfLsX3MCUxBOFfIGPjak3IYMBl DOUpApU4QKWdMQLoGEKuBKdpBCMbRPM3GYOwTFQoTXJjEF0DEkRnFBHuOvjpKELnDAOcGGWxuf0QEHPx SMZdXvB5MBRyNLEjJCEzMHriMONcPXW2BQo4EJWvOXVhOS4ZGlXgYKZpPlhaAkloBIIpKXTsed0WZGVx USZqCVPmXDJcIYVuLTDaOCzbZXZmPGJ9DUSpXJXtED VgBZ9KWdWoTVpzMHLTPnh4HFylR5y9GNQiRg2TR9Ljg4HnBjWiTJLYPDsgCT8qdeQvPEQvDl2HF8mXNw ahSdN3TzKsJzi1T0KbBURrGcXoSzkdDfEuYlWjUXKhWY8dJDX5YNqdFaY0TLquAFVgGcHiOpN7MBMpBO LrAPGlOEL2JmLlTN0UHt5QYvJ5PIQ8fDNgJf4ELls8OSCUBwMbSF8QVRp= ID Date Data Source [id number] 03/31/2020 08:54:30 AM EST [facility] Name Value Range Interpretation Code Description Data Lynn rce(s) Supporting Document(s) Progress Note [facility] ADLWCb5sXtKDEnJg64/EYKjkZMZtr7PrNYukSUt3UQjjZPDwY2IrPWH6xE5cICJ3JQvVNvHqCvKzWbTq lbm [file] ICAgICAgICAgICAgICAgICAgICAgICAgICAgICAgIC AgICAgICAgICAgICAgICAgICAgICAgICAgICAgICAgDQogICAgICAgICAgICAgICAgICAgICAgICAgIC AgICAgICAgICAgICAgICAgICAgICAgICAgICAgICAgICAgICAgICAgICAgICAgICAgICAgICAgICAgIC AgICAgICAgICAgICAgDQogICAgICAgICAgICAgICAg ICAgICAgICAgICAgICAgICAgICAgICAgICAgICAgICAgICAgICAgICAgICAgICAgICAgICAgICAgICAg ICAgICAgICAgICAgICAgICAgICAgICAgDQogICAgICAgICAgICAgICAgICAgICAgICAgICAgICAgICAg ICAgICAgICAgICAgICAgICAgICAgICAgICAgICAgIC AgICAgICAgICAgICAgICAgICAgICAgICAgICAgICAgICAgDQogICAgICAgICAgICAgICAgICAgICAgIC AgICAgICAgICAgICAgICAgICAgICAgICAgICAgICAgICAgICAgICAgICAgICAgICAgICAgICAgICAgIC AgICAgICAgICAgICAgICAgDQogICAgICAgICAgICAg ICAgICAgICAgICAgICAgICAgICAgICAgICAgICAgICAgICAgICAgICAgICAgICAgICAgICAgICAgICAg ICAgICAgICAgICAgICAgICAgICAgICAgICAgDQogICAgICAgICAgICAgICAgICAgICAgICAgICAgICAg ICAgICAgICAgICAgICAgICAgICAgICAgICAgICAgIC AgICAgICAgICAgICAgICAgICAgICAgICAgICAgICAgICAgICAgDQogICAgICAgICAgICAgICAgICAgIC AgICAgICAgICAgICAgICAgICAgICAgICAgICAgICAgICAgICAgICAgICAgICAgICAgICAgICAgICAgIC AgICAgICAgICAgICAgICAgICAgDQogICAgICAgICAg ICAgICAgICAgICAgICAgICAgICAgICAgICAgICAgICAgICAgICAgICAgICAgICAgICAgICAgICAgICAg ICAgICAgICAgICAgICAgICAgICAgICAgICAgICAgDQogICAgICAgICAgICAgICAgICAgICAgICAgICAg ICAgICAgICAgICAgICAgICAgICAgICAgICAgICAgIC QyOAPxQCSpKQMmLKOyQYAxGGVlDGJvFVLmFQXeLKQyFUNbXXEyGPTfOXp6P1xtUAJqLPNdFS7sKUq1Xm 8+NRvFZuUrEVX7nyOguS4IUY6to8HnMYzeORDxk8KbVGe6CQ6BZCIhCJrqSF0LIPkfgs5FQYEfFLGssT RXn8rkKbMrIZP7SEWkYidcEY3QRIAoX2vkquOpPQCd PLHLNGtfQFONDVgrMDZSUERlOGOxEuDtYKlgCD8Cr9UxdXV7KDg+Co8VSI5fk7QeQCemTTHbJU2gyp3P RJkEZhZlJ1AaflZ8JCQgZKJpSj0JCGZbGMBngDOaRtSdOXWRTqHsC2QmoI66LFUDZf7+DQplbmRvYmoN MsCgVOSbz7VoGOx6LG2YVJRiIAg6aEUnAWGnF5Fnj3 LxPu55YJVzKyqbO9YcwLHqStAZdp41nklqJSIdYLHqQz5pYfPcPwEqENq0YLZuNU2lWRyiFM4SKJG9MD wtLTTaOGEvF7jURkYfYWMuXxRdrSiqWY9IUnKtF5YsltVttGBrRNOtEMSCBt4+DQplbmRvYmoNCjMzID Fej8GzAVq3ET6GSHGoVUsiRW1BSPAzzT7gOWlfRB0T IbUpBENgPFVLExUuL46wnAKrQAi3V2PtNkVvQWSzBzxyDQWcLAbpXqQoDGSoFoWeBJexMO6+ID4+DQog QL0QFXspxmAvUVGsMv7NASZeYXLmAS2sHGEyMQZfC8T9bVbdPVFMYcCaP5gxrwpvXG9uCRCaC656hIzj kgDzRDMsJBSeOy1QRWKuIVG7RMCnlVThZiVdYBFWFR kbEQ1TtCRkUQN0aS6xXPerKDOiPWPaH7lKDoUdhZbaLZ54kLrgemTjhCZsUCg+Ip7HIW7ec7BeXXe9nh PgORpkKAF8IJsmTVDzMEGlCYCnHEX7CKV9SCNPFsUyFUDkLXPzZZqwXFHtNCPayx9VPAYzYITvCLNdUg CdMRMlIAPdAQoxWTZhAPUaDhJ6EKKdOWLkFR7INxVs FYYfGALaVDvyMYTfZZAtbs4CLEInMWEsRLBeOFXcTYDkUVOjDYmhMRWpRYI4JcY7RWUiPOHjZM3QGiTn DTGtLOd5LxBlZMRbROYyac7LVHRhUWAjJet6BNBmLONgPOOrRYouYIFgFYEzBHA9RLAnNVVuEM9DPvLw MTJyHQVlGvXqFSIfSBPeha3OPOSrTATaSmxkFJQmRP VzOQVsQQvrXWAfTYFtUUEoAHCxRVOoGQ6PVqUjWXWwSRW5KkZzWRHpMZVtxh2COPFmACLaDQD8JbLjFC YrDWUdERgqPFVnGHL4GgEbPZOvFJJqGR7RNpLuATOpEOFqGLqvMZGeJPSbbn4TCWSiOTTfWYUnCSNyAL NoPRHxXSgePRIvQAB5BHt4WCPdRYZdDD6ROaUqAYLn IkjpTshxRMXaZFCipp8CXOZrYNAzVoZ0VUDhBCMuOHBlFEqsERNoMVT7FZRnZDHtZCRbDQ0RDgNgOLCl Fxe8HPWdAGKcZXLlvl7DRAAcBKJzOix3OCFoUZXhGGClBDcwLGIoXSG0HGDaEQPqYYXuZI5TSuUdCIDr BqjzWIEcGEWxSIRkti6FMQBaKTCsTPR8XHEmXRAsEB AoZJgxBQQkRGJnVcH6DHVpYZTlYS8YWaLsBHMgIpX6SOChNWLvFDXalj3WEGTlYZOnALJ4NCWzFFWhRL VoZEidBWYgVAWmYNO4RPUaSACxPT0LNyXwYBJmCrN3OjCzBORpNIWhgi9KSREkPAQtAwL9CaYvOGRpIZ NmUHstUAImFDGjFdh1AKLeNRNhHL4WMnAvQIxyTJHL Ppe1IIikD1a4QPDzTH4MF8Imj4OoLoIxYGDTREwjZK2qqhQrLPPyId0XC4qQVggqQrGfNRFfOJEsJpVi Rvm4YtunRSh7HaAbZErrQlR6WC9kESPfCZPuIGXoP9TgAXI6SgacVJH6EqDxYLMmJJVzXLY6OxLyBM4S Jz2PImD0NUR4eDHgZg6NQkT6IxSXDcNbJB5NRDv= ID Date Data Source [id number] 03/31/2020 08:26:34 AM [facility] Name Value Range Interpretation Code Description Data Lynn rce(s) Supporting Document(s) Leukocytes [#/volume] in Blood by Automated count 10.1 10*3/uL 4-10 [facility] Erythrocytes [#/volume] in Blood by Automated count 3.12 10*6/uL 4.1- 5.3 L [facility] Hemoglobin [Mass/volume] in Blood 11.0 g/dL 11.5-15.5 L [facility] Hematocrit [Volume Fraction] of Blood by Automated count 33.2 % 3 6-45 L [facility] Erythrocyte mean corpuscular volume [Entitic volume] b y Automated count 106.3 fL 80-96 [facility] Erythrocyte mean corpuscular hemoglobin [Entitic mass] by Automated count 35.3 pg 27-33 H [facility] Erythrocyte mean corpuscular hemoglobin concentration [Mass/volume] by Automated count 33.2 g/dL [facility]0-[facility] distribution width [Ratio] by Automated count 16.4 % 11.5-14.5 [facility] Platelets [#/volume] in Blood by Automated count 169 10*3/uL 150-400 [facility] Differential cell count method - Blood [facility] Neutrophils/100 leukocytes in Blood by Automated count 82 % [facility] Lymphocytes/100 leukocytes in Blood by Automated count 10 % [facility] Monocytes/100 leukocytes in Blood by Automated count 8 % [facility] Eosinophils/100 leukocytes in Blood by Automated count 0 % [facility] Basophils/100 leukocytes in Blood by Automated count 0 % [facility] Neutrophils [#/volume] in Blood by Automated count 8.26 10*3/uL 1.8-7 .0 [facility] Lymphocytes [#/volume] in Blood by Automated count 0.97 10*3/uL 1.2-4 .0 L [facility] Monocytes [#/volume] in Blood by Automated count 0.78 10*3/uL 0-0.8 [facility] Eosinophils [#/volume] in Blood by Automated count 0.01 10*3/uL 0-0.5 [facility] Basophils [#/volume] in Blood by Automated count 0.04 10*3/uL 0-0.2 [facility] Nucleated erythrocytes/100 leukocytes [Ratio] in Blood by Automated count 0 /100{WBCs} 0-0 [facility] ID Date Data Source [id number] 03/31/2020 08:54:32 AM [facility] Name Value Range Interpretation Code Description Data Lynn rce(s) Supporting Document(s) Albumin [Mass/volume] in Serum or Plasma by Bromocresol green (BCG) dye binding method 3.8 g/dL 3.5-5.2 [facility] Bilirubin.total [Mass/volume] in Serum or Plasma 0.3 mg/dL <1.2 [facility] Calcium [Mass/volume] in Serum or Plasma 10.8 mg/dL 8.6-10.0 [facility] Chloride [Moles/volume] in Serum or Plasma 101 mmol/L 98-107 [facility] Creatinine [Mass/volume] in Serum or Plasma 1.20 mg/dL 0.50-0.90 [facility] Glucose [Mass/volume] in Serum or Plasma 147 mg/dL 70-140 [facility] Alkaline phosphatase [Enzymatic activity/volume] in Serum or Plasma 127 U/L 35-104 [facility] Potassium [Moles/volume] in Serum or Plasma 3.8 mmol/L 3.4-5.1 [facility] Protein [Mass/volume] in Serum or Plasma 6.3 g/dL 6.4-8.3 L [facility] Sodium [Moles/volume] in Serum or Plasma 139 mmol/L 136-145 [facility] Aspartate aminotransferase [Enzymatic activity/volume] in Serum or Plasma 45 U/L <32 [facility] Urea nitrogen [Mass/volume] in Serum or Plasma 10 mg/dL 6-20 [facility] Osmolality of Serum or Plasma by calculation 289 mosm/kg 275-300 [facility] Creatinine/Urea nitrogen [Mass Ratio] in Serum or Plasma 8 [facility] Bicarbonate [Moles/volume] in Serum 25 mmol/L 22-29 [facility] Alanine aminotransferase [Enzymatic activity/volume] in Seru m or Plasma 34 U/L <33 [facility] Anion gap 3 in Serum or Plasma 14 mmol/L 8-15 [facility] Glomerular filtration rate/1.73 sq M pre dicted among non-blacks [Volume Rate/Area] in Serum or Plasma by Creatinine-based formula (MDRD) 51 mL/min/1.73m2 >60 [facility] Glomerular filtration rate/1.73 sq M pre dicted among blacks [Volume Rate/Area] in Serum or Plasma by Creatinine-based formula (MDRD) 59 mL/min/1.73m2 >60 L [facility] ID Date Data Source [id number] 03/31/2020 08:54:32 AM [facility] Name Value Range Interpretation Code Description Data Lynn rce(s) Supporting Document(s) Magnesium [Mass/volume] in Serum or Plasma 1.5 mg/dL 1.6-2.6 [facility] ID Date Data Source [id number] 03/26/2020 05:25:13 PM [facility] CT THORAX WITH CONTRAST [id number] RESUL TInterpreted by:Hawk Edmondson MBBSINDICATION: Small cell lung cancer. TECHNIQUE: CT thorax with contrast. 5 mm and 1.25 mm thick sections were made using helical technique from lung apices through adrenal glands. Intravenous contrast was administered. Automated dose lowering techniques and/or adjustment according to patient size were utilized for this exam.COMPARISON: CT chest dated 01/12/2020.FINDINGS: LOWER NECK : The thyroid gland is unchanged in size and appearance.CHEST WALL AND OSSEOUS STRUCTURES: Again seen are lytic lesions involving posterior aspect of the T12 vertebral body and pedicles. No new osseous lesions are identified. The chest wall soft tissues are unremarkable.MEDIASTINUM AND PULMONARY AJ: There is interval decrease in the size of mediastinal lymphadenopathy, particularly in the right upper paratracheal and prevascular region. The lymphadenopathy extrinsically compress the main pulmonary and right pulmonary arteries. There is marked narrowing of the superior vena cava. Again seen is compression of the left left atrium.HEART, PERICARDIUM AND GREAT VESSELS: The heart is normal in size. The ascending and descending aorta are of normal caliber. There are new nodular densities along the right aspect of the pericardium measuring up to 1.0 cm ; most consistent with metastases. Stable small to moderate sized pericardial effusion. No filling defect in central, lobar and segmental pulmonary arteries. The pulmonary veins are patent.LUNGS, PLEURA AND AIRWAYS: The trachea and central airways are patent. There are new anahi ng nodules as described below.* There is a new punctate nodule right lower lobe image 212/331.* New 6 mm nodule in the right lung apex best visualized on the coronal image 36/106.There are thickened interlobular septa in the right lung involving the right upper lobe, middle lobe and portions of the lower lobe. There is a new small right pleural effusion. UPPER ABDOMEN: For findings below the diaphragm, please refer to report for CT abdomen from the same date. IMPRESSION: 1. There are multiple new small pericardial soft tissue deposits, most consistent with metastases. Small pericardial effusion is unchanged.2. 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 There is development of small right pleural effusion.4. New 6 mm nodule in the right lung apex.5. Decreased size of mediastinal lymphadenopathy; however the mass effect on adjacent structures is unchanged.6. Redemonstration of lytic lesion in the posterior aspect of T12 vertebral body and pedicles.This document has been electronically signed by Farooq Otero MD on 03/26/2020 5:23 PM Name Value Range Interpretation Code Description Data Lynn rce(s) Supporting Document(s) ID Date Data Source [id number] 03/24/2020 06:40:41 PM [facility] CT ABDOMEN PELVIS WITH CONTRAST [id number] AL RESULTInterpreted by:Jorge Alberto Cornelius, MDPROCEDURE INFORMATION: Exam: CT Abdomen And Pelvis With Contrast Exam date and time: 03/24/2020 4:03 PM Age: 54 years old Clinical indication: Malignant neoplasm of unspecified part of unspecified bronchus or lung; Abdominal tenderness; Additional info: Small cell lung cancer TECHNIQUE: Imaging protocol: Computed tomography of the abdomen and pelvis with intravenous contrast. Radiation optimization: All CT scans at this facility use at least one of these dose optimization techniques: automated exposure control; mA and/or kV adjustment per patient size (includes targeted exams where dose is matched to clinical indication); or iterative reconstruction. Contrast material: OMNI 300; Contrast volume: 100 ml; Contrast route: INTRAVENOUS (IV); COMPARISON: CT ABDOMEN PELVIS WITH CONTRAST [id number] 01/12/2020 11:34 AM FINDINGS: Heart: There is small to moderate accumulation of pericardial fluid. Liver: Diffuse micronodular infiltration of the liver concerning for hepatic metastasis. Gallbladder and bile ducts: The gallbladder demonstrates contracted contour and configuration without stones or evidence of inflammation. The intrahepatic and extrahepatic bile ducts are normal in contour. Pancreas: The pancreas demonstrates normal contour and configuration. The pancreatic duct is normal. Spleen: The spleen demonstrates normal contour and configuration. Adrenal glands: 2.1 x 1.5 cm heterogeneously enhancing left adrenal mass with Hounsfield unit measurement of 65.9. Kidneys and ureters: The kidneys are nearly symmetric in size with normal contour and configuration. The collecting systems are normal. There are no significant renal calculi. Stomach and bowel: The colon and small bowel demonstrate normal contour and configuration. The stomach demonstrates normal contour and configuration. Appendix: There is no acute right lower quadrant inflammation or evidence of acute appendicitis. Intraperitoneal space: Unremarkable. No free air. No significant fluid collection. Retroperitoneal space: No significant retroperitoneal fluid. Vasculature: There is calcified plaque in the abdominal aorta and branch vessels. The vena cava is unremarkable. The mesenteric artery and veins demonstrates normal enhancement, contour, configuration and orientation. Lymph nodes: Right pericardial phrenic lymphadenopathy versus lymph node metastasis, correlate clinically. There are no abnormally enlarged retroperitoneal lymph nodes or masses. There are no abnormally enlarged mesenteric lymph nodes or masses. Urinary bladder: The urinary bladder is decompressed. Reproductive: The uterus demonstrates normal contour and configuration. Bones/joints: Lytic deformity posterior cortex L1 vertebral body and sclerotic lesion L4 vertebral body, no significant interval change when compared to prior examination dated, January 12, 2020. Soft tissues: Moderate to large umbilical ventral hernia with omental fat, correlate clinically. IMPRESSION: 1. Small to moderate pericardial effusion. 2. Right pericardial phrenic lymphadenopathy versus lymph node metastasis, correlate clinically, new when compared to prior examination dated, January 12, 2020. 3. Findings concerning for 2.1 cm left adrenal gland metastasis, no significant interval change when compared to prior examination dated, January 12, 2020. 4. Abdominal aortic and branch vessel peripheral artery disease. 5. Moderate to large umbilical ventral hernia with omental fat, correlate clinically. 6. Lytic deformity posterior cortex L1 vertebral body and sclerotic lesion L4 vertebral body, no significant interval change when compared to prior examination dated, January 12, 2020. 7. Diffuse hepatic metastasis, new when compared to prior examination dated, January 12, 2020. THIS DOCUMENT HAS BEEN ELECTRONICALLY SIGNED BY JORGE ALBERTO CORNELIUS MDThis document has been electronically signed by Jorge Alberto Cornelius MD on 03/24/2020 6:40 PM Name Value Range Interpretation Code Description Data Lynn rce(s) Supporting Document(s) ID Date Data Source [id number] 03/24/2020 03:01:37 PM [facility] Name Value Range Interpretation Code Description Data Lynn rce(s) Supporting Document(s) Creatinine [Mass/volume] in Blood 1.2 mg/dL 0.50-0.90 [facility] ID Date Data Source [id number] 03/17/2020 12:53:42 PM [facility] Name Value Range Interpretation Code Description Data Lynn rce(s) Supporting Document(s) Progress Note [facility] PCZGVf9dFgLJBqZu33/BOHijNABzn2ReSDsaKHq5NPhzIZMdX4HkCOM7qH8cTMY4RXiTRbOkKpXlWTJk [facility] [file] DQogICAgICAgICAgICAgICAgICAgICAgICAgICAgIC AgICAgICAgICAgICAgICAgICAgICAgICAgICAgICAgICAgICAgICAgICAgICAgICAgICAgICAgICAgIC AgICAgICAgICAgDQogICAgICAgICAgICAgICAgICAgICAgICAgICAgICAgICAgICAgICAgICAgICAgIC AgICAgICAgICAgICAgICAgICAgICAgICAgICAgICAg ICAgICAgICAgICAgICAgICAgICAgDQogICAgICAgICAgICAgICAgICAgICAgICAgICAgICAgICAgICAg ICAgICAgICAgICAgICAgICAgICAgICAgICAgICAgICAgICAgICAgICAgICAgICAgICAgICAgICAgICAg ICAgDQogICAgICAgICAgICAgICAgICAgICAgICAgIC AgICAgICAgICAgICAgICAgICAgICAgICAgICAgICAgICAgICAgICAgICAgICAgICAgICAgICAgICAgIC AgICAgICAgICAgICAgDQogICAgICAgICAgICAgICAgICAgICAgICAgICAgICAgICAgICAgICAgICAgIC AgICAgICAgICAgICAgICAgICAgICAgICAgICAgICAg ICAgICAgICAgICAgICAgICAgICAgICAgDQogICAgICAgICAgICAgICAgICAgICAgICAgICAgICAgICAg ICAgICAgICAgICAgICAgICAgICAgICAgICAgICAgICAgICAgICAgICAgICAgICAgICAgICAgICAgICAg ICAgICAgDQogICAgICAgICAgICAgICAgICAgICAgIC AgICAgICAgICAgICAgICAgICAgICAgICAgICAgICAgICAgICAgICAgICAgICAgICAgICAgICAgICAgIC AgICAgICAgICAgICAgICAgDQogICAgICAgICAgICAgICAgICAgICAgICAgICAgICAgICAgICAgICAgIC AgICAgICAgICAgICAgICAgICAgICAgICAgICAgICAg ICAgICAgICAgICAgICAgICAgICAgICAgICAgDQogICAgICAgICAgICAgICAgICAgICAgICAgICAgICAg ICAgICAgICAgICAgICAgICAgICAgICAgICAgICAgICAgICAgICAgICAgICAgICAgICAgICAgICAgICAg ICAgICAgICAgDQogICAgICAgICAgICAgICAgICAgIC AgICAgICAgICAgICAgICAgICAgICAgICAgICAgICAgICAgICAgICAgICAgICAgICAgICAgICAgICAgIC PcGCKdWWYuIGYuDXDvYUYwNOFgWLn8X2lsQXMkYVEjZY0nJBm4An6+PMsYQpGtSJF3szWljW6GMX7nd6 IoDIvvDUGkp0GxDDh1FA0LKZRrNMawBI7KDCuzjk6A MDRcBDTdhFPIp4ezFpUtPZE2PCRgPoohRY1BZNHwY7jcfpMtBSIwMXKRJYxdWESSIO2BDbPlT4OdxX83 IDINCj4+LFomniQeYhaOWfO8DZApf2CzNXr3SZ5BZYVfYhwox6QsVMwlXFALULsbRE3SVPX0VDG2JCDo Mb0WGICtO479biLtCW6RSw2TJzFeZP2xwc3HFBvsSZ YvNvcYGan3WNhxCH7JmMOzUHyLjz5fdxJilkNKy8PuekThoOFTHSvkFWNqP8CmpXcaHy7qYAEzYX4uDN 0oBJSfNPG7OkW9OITDFK8CJHTiVYIhqGSvLNEzGCIKHL6EMNjlBYO2HYKxsiZybFPwWPdgZD1QPGRbff QgMTYgMCBSDQo+Bb9EXH9kt1ElLIuuIPRcUV7jps1S HRlCCsXpA0I7oZCzT9X2DSrxPb2ARYClPUTrWRWsYSDQVWqdAH2XUZ1kxmK6YY3XiRRvLGYpTNXdkMXa REq3G25hpYWyNVfzFW9EGCD+Antelmo+Cd9VOQBtHKIpEMMlPkHqRCVJHaOmI7YtH1RBl4GdT3ZkKW22fGkw bpTdVNzvUL4QNG2hUJPfXKVSYK8TpASlkM8ekkKjZl LjYVTZCsYdM78zgNIvELPeYOT8NAZuXd3UOSAeC5ZmmoSszZhelmAdVIJfICSBQQ9ZNVjegpNhqZGubQ xyKF08vYqjIW6ETe5IJlGaEJ9hwy7BpIUbQg9OMBMqCQ1CMYZyCOArUEClTGP2DTRtZgFqLPvxRKQkWZ IzHKG0QSNoMPEwMO4UXpJsQXPwVWh1TEYhQNYyQNHd to3EKRHcOCYpRHI0EKKaGAUwQVKdWAvpVXMwQYJqZZR5VMOpWEWdOV5IIwBgLAYhOULrJztfOQLwYXFp bg5MPCSuKNToDeJ7URAbQWDoZABzMPryWSNgMFY0QgWmZIQcKIPyHC9GQxPkFQZuYTB6FCBqQZOqFGGq yr8ZIIXeNCLhBhhtDnTrEUKvVJFfCBcyZCEhYBR1RP k6RFEiFREtLR3IQbTxVAVnVEyeMVIuQGMyHUMtjs8CMYIkSBApOBFvFXEfOGIyVDMvEZqkFPXtIQK7Wf JeDRHfWSPnYX6SAuGqERWbYHu4AxygGOQrGRLxfp8GHLMfHXFkCUwaYBWtVKYlFVAhQGclVKZjOSAyLa y9WSRwZUYmCW2SQtPqSTFnELI8IJrkBQIwPVVrxb9I YZOzJCUkGRR4HCEpROKzUKGvLJt3trAguVVgVOb7KL6OJ7KrohCfNRbUDx6Xm543BBN6UKMeIk0WU8om Eo4jWFXjRLRAVk6JDJk8KHfsYTCfDChmY6YxUGNyGPr0LoK3EaSfKUJcVYH3JZA+NXmqNCT2EGWpP9Lv WqS0HIGmYbPzTClzAcD5AyW1ACD8Tn6iYZZPXc4+NAfvnCPqdQrhHYRFJkVjDTG2EImqBQUTLp3W ID Date Data Source [id number] 03/17/2020 12:46:05 PM [facility] Name Value Range Interpretation Code Description Data Lynn rce(s) Supporting Document(s) Operative Note [facility] VDGQLv5iBlLFWeHp82/MDEurYUCdn0EtFUbnNUs7OHadLZZsC5DuLBJ8iO3uLJX3NNqALwKlQrZeALVb lbm [file] OyVEoTHwRfVB4JSWk= ID Date Data Source [id number] 03/17/2020 11:36:29 AM [facility] Name Value Range Interpretation Code Description Data Lynn rce(s) Supporting Document(s) Glucose [Mass/volume] in Capillary blood by Glucometer 108 mg/dL 70- 140 [facility] ID Date Data Source [id number] 03/17/2020 09:30:26 AM [facility] Name Value Range Interpretation Code Description Data Lynn rce(s) Supporting Document(s) [facility] QLWLIp7yHwWDLtQv38/ZITvuRUKme6GaVGodMVj3DRzoXHTpX4AnOJK7zQ1aHMH4MIkYMaFhZhJvEKDm [facility] [file] RjAgMTAgMCBSDQogICAgICAvRjEgMTMgMCBSDQogIC ImDBKuZkEfCRTvZRZURw1EIfHrHFCjKO8trsUxrEP0HXF+Yd1MQFHnAR7CzWIOI8EkcZNxSZxeJ7PLRG 0PFQD2DD7UeEBoKN6JjBLYO4XxjNNpAm7yJQAit3JbKc2qP6CUOPFKYCLbZGopPFtzSADpTKn3O7M4ZQ EvX4NDQ715qSNpfDd4Kb9xY0HEROfXGwXfVUviQBru ESOfPIj2B0M1XOUoY5HKZ1WzSjDuzeQvB0T+LzVoIXWOPB2GSRACFSh5I3F7oWFwY2R8wLgOaCA7TL5U DK2QlALiuEKmc51+NjABVfQyTFZrV4JJLNCKMgZlIJigHXxvOMMrPMy3I3D6HHLdK5MGD8dpC6i6PZ6+ NwDBUsXuFMOiQc9ICuYdLu4FBeBfPV7rqc5MHPjnST AjQojDPhl1D7tjcky4nLLrFwT7Q8N8KbA5cCWdVM4FF0J0wSRhPDG2QFWfpGR+Zn6Gy3InXSDwNFy9W5 ybDWCjLMCyFjVmyO68Z++2jrrhwDD9B9b5ANSFqWAzdMqHjwGiM1hWWCV0e2V8AAg/Ks9IOEH8jDw8aG DhAMDvIVi4yL9bqSi3BcVnJF39ULGdEGvxlN2aEec7 E9Oiy7AeBi0eBg4qeQUxDz4WJyHbCWJ4kkXeAwJCFmO6nKanyockPPX5B3g8kFD5Bo65d2hblpAuz1Zn EbD8VYazOCQjDtSsseEyUIX8xbUrlE2kkxYiPr7XBLVtJDhfzdIuRyNCVu9VHnSgCD09LuzgfA1xkJV+ DQogICAgICAgICAgICAgICAgICAgICAgICAgICAgIC AgICAgICAgICAgICAgICAgICAgICAgICAgICAgICAgICAgICAgICAgICAgICAgICAgICAgICAgICAgIC AgICAgICAgICAgDQogICAgICAgICAgICAgICAgICAgICAgICAgICAgICAgICAgICAgICAgICAgICAgIC AgICAgICAgICAgICAgICAgICAgICAgICAgICAgICAg ICAgICAgICAgICAgICAgICAgICAgDQogICAgICAgICAgICAgICAgICAgICAgICAgICAgICAgICAgICAg ICAgICAgICAgICAgICAgICAgICAgICAgICAgICAgICAgICAgICAgICAgICAgICAgICAgICAgICAgICAg ICAgDQogICAgICAgICAgICAgICAgICAgICAgICAgIC AgICAgICAgICAgICAgICAgICAgICAgICAgICAgICAgICAgICAgICAgICAgICAgICAgICAgICAgICAgIC AgICAgICAgICAgICAgDQogICAgICAgICAgICAgICAgICAgICAgICAgICAgICAgICAgICAgICAgICAgIC AgICAgICAgICAgICAgICAgICAgICAgICAgICAgICAg ICAgICAgICAgICAgICAgICAgICAgICAgDQogICAgICAgICAgICAgICAgICAgICAgICAgICAgICAgICAg ICAgICAgICAgICAgICAgICAgICAgICAgICAgICAgICAgICAgICAgICAgICAgICAgICAgICAgICAgICAg ICAgICAgDQogICAgICAgICAgICAgICAgICAgICAgIC AgICAgICAgICAgICAgICAgICAgICAgICAgICAgICAgICAgICAgICAgICAgICAgICAgICAgICAgICAgIC AgICAgICAgICAgICAgICAgDQogICAgICAgICAgICAgICAgICAgICAgICAgICAgICAgICAgICAgICAgIC AgICAgICAgICAgICAgICAgICAgICAgICAgICAgICAg ICAgICAgICAgICAgICAgICAgICAgICAgICAgDQogICAgICAgICAgICAgICAgICAgICAgICAgICAgICAg ICAgICAgICAgICAgICAgICAgICAgICAgICAgICAgICAgICAgICAgICAgICAgICAgICAgICAgICAgICAg ICAgICAgICAgDQogICAgICAgICAgICAgICAgICAgIC AgICAgICAgICAgICAgICAgICAgICAgICAgICAgICAgICAgICAgICAgICAgICAgICAgICAgICAgICAgIC CfWKZsSKVaQLCgKCVgFOUuQOYdJSt6F3jmOSSpHFIiMC3vUXl2Zd8+KUcMMnQnAZA8ftSlbO8LJL4qj8 FfDGhaBRIou6KyATw9TN6PZAQqATbeOM9VZLsris2D EKObYKFvaVRRr6bbBiWmKLQ4ICSqHrcmHV0USLBxN1bcxwVeJKAsHWXIOKziONYZYB3EAmGdA6OygP00 IDINCj4+WPywtfInOkbRVbO4DWFwi5JdFDu4YA1BMDGwEdvuv1KoIkLyCYHYLZpaVR9EEQG6XIAsXXBf Ij4FPTNdU246vaMdMD4GKp0BOrUmJE4tdf7AAmKyHD ScYtfYDrs8NPdlIZ4ZlFYfBIsKcOWqZREcpbDjPj18EUQwiFXQZBKeeP4wZXKQBLRsxFdiMWDfMNRpYX 3oAV3bKFYnIAK5PjP3YPQWFF0XBLEmYWZakGQuBQQzQRWYWO2FEKqmYWM5OWVqymHroJTfQHpsUW3KDP JlbnQgMTkgMCBSDQo+Sm3MXD4mq5FsCZeiHNMdSO5j ji3EOPjTYgSuV0T4vFVjK3J1GCutLu2GECKtKUDpJCuvQFAKXQwgPZ6HNG0ruaU2WD8IaOMcASRfZNOg vVEtNNn0W19mzPNxPSvkTI9HERM+Antelmo+Ow4DVDCaFHWtQOFjNrQaLCPBApFdO1DuB7GSc4FaF8WpKQ70 kKokxaMwNGchRP7XYY9jOFCgARDVRO2PyNVfqO6dwx OwFBFmDNBCJtKsF66tcXDiOTKsQST6DKZxWo9DIVOdA5VupbNvaBhlnnYvYJKvBNVOCE6GSYelwwGjnV OzyKjeGE76cYeiAF3CEv6MXaMpBJ5iov0HaXHgZv0JRVBrXj5SRVEkNNCcHEJlDUQ6FBXpRdQeROseEN IpZQRqIDF6WDYwWKPkKL4FLtTzCYWdDPicGFTkCPJm BKCqvy8YUCXzSWOnPEp4GROwORHcCPHxTXhlXSIiGIRjSJR7TAPwLBXrAT5RUeJuWIDnSEGtGKLdIOVi HJHjej7GVNXrZZWgDpU3WzGsCULqLCDpPJpgDJSsLIK9PLb0BTBsIVRxLU6EMhXySMGmFYJsHTNtGBSz EILets3EOPWaJPJeIbH4XNQtIRWyRUHcYDtrEYSgTT B9YrN8UHMyGFZxQE1ZXhEdNIQpECX4QvxkCOOdPRYvdu7OZIRaAILaExU3WpJqPLZeEMSoCMslJMMtRB S4HYd0GPMeUIJhIU0VIkWkOKWuLNy5ZqwlJJRjSKVutr1EJNOuLSIbQCwpQaLxPYKrHIDzOLlcBSVhHE P7EBD9LLAjIHWuFY7QStDfUPMsDYctAIntMRKvYQFo od6BYYKmDNGlDBF1JHYvTOLcCYMaCEvlKLTcOSElINb3IFTtDGYcEE1POaAoIWVwKKAbQRNvDIBjSJAy qu1ULRTaEFStFKSmQKAnHCQyEKEtABx6vcRsvYZvZWg4BN8UL9LverBrUmACHi1We954HVFxHKYmOi4J W2lbJz7bPDDaKSGTUo9IBIk3RQMxSHA1YCLaWzNqIc JtRZA4HAUqZbLmIAD3MyNaMKz+SYv4B1Y7UhsvSCVcHqNeNRY5VIe9EIQ3YWIqGblcA9C2TW4xFQVYFm 4+HHnpnHJjrBhtFGCANdDrDUD8RXipUFPOXg0Z ID Date Data Source [id number] 03/17/2020 09:06:07 AM [facility] MR BRAIN WITH CONTRAST [id number] RESULT Interpreted by:Yuliana Perez MDEXAMINATION: MR BRAIN WITH CONTRAST [id number]: 54 year old female with 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 The images were acquired for use with the Brain[employer]endji neuronavigational system.FINDINGS/IMPRESSION: A stereotactic headframe for use with the BrainLab neuronavigational system is present. The images show a new enhancing nodular lesion in the left caudate nucleus. There is also interval increase in the size of the enhancing lesion in the left uncus now measuring approximately 1 cm x 0.7 cm, previously measuring approximately 0.8 cm x 0.4 cm. There is also interval increase in the size of the right pontine lesion, now measuring approximately 0.5 cm x 0.5 cm, previously measuring approximately 0.3 cm. There is redemonstration of enhancing lesion in the right insular region. There is suggestion of mild interval increase in the size of multiple bilateral cerebellar lesions with few new lesions seen in right cerebellum.This document h as been electronically signed by Yuliana Perez MD on 03/17/2020 9:00 AM Name Value Range Interpretation Code Description Data Lynn rce(s) Supporting Document(s) ID Date Data Source [id number] 03/17/2020 08:02:54 AM [facility] Name Value Range Interpretation Code Description Data Lynn rce(s) Supporting Document(s) History and Physical [facility] LSHJKm7jWmCMWtLg93/HJWjlCJYtf4MaMKqyTRu1KJosWIUeR5PbXCO4bE8bAKC9BTiLWlEwKkBxLGEw [facility] [file] AgICAgICAgICAgICAgICAgICAgICAgICAgICAgICAgICAgICAgICAgICAgICAgICAgICAgICAgICAgIC HkMDGjTBLhVZDxFHYeBA9UAURhFHFrMKRyOVMkWUAk ICAgICAgICAgICAgICAgICAgICAgICAgICAgICAgICAgICAgICAgICAgICAgICAgICAgICAgICAgICAg WTYsRJKmSUIfBPWfAJDvLJPhMBXtJFYxPV3KKKOcBXVwBTRrEAUcMTJlQJUrTFSnYAXwYLUrGCInAFCn ICAgICAgICAgICAgICAgICAgICAgICAgICAgICAgIC AiQLUrHRQgRFLuVTAzWJDfZZQqEHNeTPMaGLGzDRUnQQZvCB1ZDQQeNBUoQMXsKNZsBIXaODIqNXTfNY AgICAgICAgICAgICAgICAgICAgICAgICAgICAgICAgICAgICAgICAgICAgICAgICAgICAgICAgICAgIC JlHWFoBBAoBMKyUZXrTVCwJX7FXEHqYTGmFKBrDIZd ICAgICAgICAgICAgICAgICAgICAgICAgICAgICAgICAgICAgICAgICAgICAgICAgICAgICAgICAgICAg GIXhQEBiPIQrTDGxNRKfNUKcPUUeYFZkRJHuUC9IKKXlQCMhUZCtIGUjYMNnPCJkWSKkQORtAMNhNRUi ICAgICAgICAgICAgICAgICAgICAgICAgICAgICAgIC JeLKAhUZMdQRCnWXNyPCIcDGHdXHEsLGIdJPUlMCIpWWGfNCHuUQ0GMVXcMWJfSSVqGRTnHFLaIQUlCH AgICAgICAgICAgICAgICAgICAgICAgICAgICAgICAgICAgICAgICAgICAgICAgICAgICAgICAgICAgIC FqIOIxDDEoGJNpWANhGBPtCBKuII2MSSNzAAHiTGSi ICAgICAgICAgICAgICAgICAgICAgICAgICAgICAgICAgICAgICAgICAgICAgICAgICAgICAgICAgICAg TTHlREIsLTRgJKUmMLDnBNUjOFArSVQeFYUiNRWdPQ3HKOFhVSByJMOwGLWwEYXgNOKtDAOfDOQwLTNh ICAgICAgICAgICAgICAgICAgICAgICAgICAgICAgIC IeREQiVJKoLEThVOAfCOQvPCJwSBWsHLXfDYKbEZUwMZSuWVNtZBCkBK9BZLUxLAXhOTRqENNqNXJnYO AgICAgICAgICAgICAgICAgICAgICAgICAgICAgICAgICAgICAgICAgICAgICAgICAgICAgICAgICAgIC KcAIRbPYWhBSTsXOPeJUHlZBEnOQTuRB5ULR27gSSr p3C5MOQoNL4ejgg/Ab8RAKavpaKwaDPnIJ3QImMrCA5msa1EKqSiMG4xbn0ZIXbFSbXuO6G4bCQlZYAp IQVAIqYpM48vCZfbEu45HQukGJQnMeUzUSv5Ck4JLbKaN5ytGWBhYoQ2YGArNcL0SJWkUmV3BUTnGhJx WDctGM2He2LpfWJqDDq+Sj1NIQ6qi7XkORoxEVReKO 7ubk6UFMnSDxBiL6NmwpS8PJEtOOOjSq6TZMKjQUUeiACvLSOdXYWNFcMzA7XcdR28QYJMZw9+DQplbm ThSpoFDkNwGMHzg7EnTUw7JF2TQZJwJZg5cXFjCZABPMS1WJmsBEC2hZORENIdHWU8KTGXMEFjtTPnQa MhVsTfYeIlFKz5HFZgIP4uOBmxPW8WPUN2KNrkEFGb LEUpU1mEJmRjIGSwHlBdyWasCB8YUsSxR3SdioMqsNZyWEGdEEOQKr8+WGfykyYqHlaJTyGgCHRit3Pg UQe7WF3FOIJdGDnpKG2LFYGbpC3tPPdjTB0LAzInSdZxQYPHWjEnS71htXHhNZf1W9QoVnEvJMLdQrkr ZXMgPDwvTmFtZXMgWyBdDQogID4+ID4+WUuvFD7QFI qjmcPlFXVgQw5PIKZdFPThMK1zLFVpFEBmE9Q3kHcrXAIJRtOuC1jqujosQN1bLHQiR262oMuxcbHkTU Y2CCOgPz4YSWBtWUH1ZTNiwOTrGendZPIHRYimOB0ClZHzCNQ9gU2uQFdtFGApMUJwI1xPAwOpiPamAF 51bGwgbnVsbCBdDQo+Re2WIS1wb0YeHIp8qtRzEYcv KLGdXPgdLJYeRNDpOSAcDZO1UUX1KEBVOkQyPEAiGNPvELldCCElOFMhdz1QKNAbLWWzKdz8DeKgIRUd RUDvGTulYMVcZBD5WGJ0HKToNCUvHY3BDlWdCOVwDZJxOAnbEKSqCLGoai2TYXDgPYYeUmYiEhFpZLGy UANpKLivRDUkJEXnZCW1SSEuWSPtAW2SCfCnTJBrYQ F1ZvAuEZAjDKZcpy5BIQGoBNAuXhccCCPaBMYxRTAxXRrdJBJyOKJ5IEG2VMNzIPIdRF7EGbJfVHGoHL hrGDmvAJSjPVGieh7RDLPnWZNfFCY7NKQrVWKqAZVcLEgvUEPuHQSjLgF9LBNoBLXtRX8AAuTyXFJeRA T5CLamVAPuVTUmvu2KPCZyRQTnIUZqGDHgSHXuSWOk LOvyASJiSBGgOpLuGLPbEEQlGJ0LHsTbFRMnWIX3QNwyHAItXQKaxl1OVPWyUJJeDan8BBTxPKKmYJDj SKslSORvOHCbIUG0UHUcHYDbXY3VVeFmQVSpXVUqDobwFCFwLFNbab8MZDGzNIGxQKErIxVpWHCoGAUa XUmpHAPvROC6ZBGiTBZpHHUxKV6RWgDxICDqXtGqTT QeXQCoAWLsjj2HIXWkGXKcPRN1YNTiHKTpPQNiTUtgVMJwGAW7RTY1YXCeSDIiZK1HPtAlUUKaYjDgXo jwXAFcOTNtei7FSYSnCSAfBdP3TjSxCYOqLOCqAIagCUQgJRB5VdT7DXTcMLWjIN8HHcJrPMUlNlmfCn ykWCToEODavt9MSCFsDYZvCIZyRJFeWFErXBKlNAbj ITZuZIT2Gfl5UJJaMQNaNT0LXlCgQCVfKve9QdonMNJeUPMfxs6RuMGmxAsefn6TIZoEDp6ClTolOVSi NIwvRd4acLKxFJGqAIMVVl2XihCxFNCxLLBOZVqgZCXuZNZ7ECWxQDZwXVpaXzVdOhPiZvI4PuLyVIXa HgY7JIQ5BsD8RzdrDcGjSxDdA0UnGGWpCACpCTyjYg R0WOHfTYu1OPG+XS8hTAf+Si4Im9VsvmI4jtYiRGphNAX2OH3OLKCYX6WIWu== ID Date Data Source [id number] 03/17/2020 06:46:16 AM EST [facility] Name Value Range Interpretation Code Description Data Lynn rce(s) Supporting Document(s) Glucose [Mass/volume] in Capillary blood by Glucometer 123 mg/dL 70- 140 [facility] ID Date Data Source [id number] 03/12/2020 10:00:00 AM EST [facility] Name Value Range Interpretation Code Description Data Lynn rce(s) Supporting Document(s) SARS coronavirus 2 RNA Not Detected [facility] This lab was ordered by [facility] and reported by [facility]. ID Date Data Source [id number] 03/09/2020 03:03:19 PM EST [facility] Name Value Range Interpretation Code Description Data Lynn rce(s) Supporting Document(s) Progress Note [facility] DXQWWm8pUnACLsPb33/AFUfrUFMsw4JbYLgcPTk5EVbaQAPhU0KzKEP8pN2kHTV4CPsHJdBuFeWcYINd lbm [file] +Srinivasa/nZiMVNZtqW1g2yv8BkvEJuZJ8zbqxSQQjVS9Qg2bIwiyhcycBbnVIeFHyoyhBbj909OuVUWrXuk LgV67CCYvu0gwGCnhOaGAvh3YW+P7tsC0VWFrs9h6q dctgmUJe+aBpx+js53xZi3dMtZF2Gq2Nmu99uNDu6yr2KgZ0vVec2Hjm1re5pt7cxnOjEp7CNeCdOr3l uAMRq9y5RMuUODvIy8+53dRGmXVBvtxNUFdioOfElDAGhhGVmdA6OefGSwXZzDSUR5u0XsTki1A8O10E 7k7TnxlWTU32h6ZxFo8SvrnSF1UPHHCJHfPpV2/Z2I 81wFWWm8fA0slZy1KD+xMAXa/05jZfk27grD/8QT2sa0txq66YGWM4AQUCO7wppDt/th6FkB+0gL+OJp z6IlurM4ZvT4/OsrvxVa3bMXd2mFvdUOc1L1PH6yCMTNoX6kaqA4Vc3Q6DtSZjho/PB8z+EeW19O79Pv Uf9S4vtqOIMlEG7amDpRl2UI2GICiPEknxNf8NndHL BMQhVrTTCqMh8ZbtZKM47f+i+5qE4ld6hbo2era+4cKGdE8j/u1dEAjVLVU4X1zwji8q8hmtpyRGWAy6 lfOD4zPT7F9U6LZ0Cyg1eSEkKd8z7D2qCRvhZOb5TL9914B1NJOApPIZikSoXAj8kjogf2W+Nq+76bB1 Household Personal Assistant+CoNYEHRS8aJ+Pi+uowEN0sbnsLbWXKzhMYtvB0 [file] AgICAgICAgICAgICAgICAgICAgICAgICAgICAgICAg ICAgICAgICAgICAgICAgICAgICAgICAgICAgICAgICAgICAgICANCiAgICAgICAgICAgICAgICAgICAg ICAgICAgICAgICAgICAgICAgICAgICAgICAgICAgICAgICAgICAgICAgICAgICAgICAgICAgICAgICAg ICAgICAgICAgICAgICAgICAgICANCiAgICAgICAgIC AgICAgICAgICAgICAgICAgICAgICAgICAgICAgICAgICAgICAgICAgICAgICAgICAgICAgICAgICAgIC AgICAgICAgICAgICAgICAgICAgICAgICAgICAgICANCiAgICAgICAgICAgICAgICAgICAgICAgICAgIC AgICAgICAgICAgICAgICAgICAgICAgICAgICAgICAg ICAgICAgICAgICAgICAgICAgICAgICAgICAgICAgICAgICAgICAgICANCiAgICAgICAgICAgICAgICAg ICAgICAgICAgICAgICAgICAgICAgICAgICAgICAgICAgICAgICAgICAgICAgICAgICAgICAgICAgICAg ICAgICAgICAgICAgICAgICAgICAgICANCiAgICAgIC AgICAgICAgICAgICAgICAgICAgICAgICAgICAgICAgICAgICAgICAgICAgICAgICAgICAgICAgICAgIC AgICAgICAgICAgICAgICAgICAgICAgICAgICAgICAgICANCiAgICAgICAgICAgICAgICAgICAgICAgIC AgICAgICAgICAgICAgICAgICAgICAgICAgICAgICAg ICAgICAgICAgICAgICAgICAgICAgICAgICAgICAgICAgICAgICAgICAgICANCiAgICAgICAgICAgICAg ICAgICAgICAgICAgICAgICAgICAgICAgICAgICAgICAgICAgICAgICAgICAgICAgICAgICAgICAgICAg ICAgICAgICAgICAgICAgICAgICAgICAgICANCiAgIC AgICAgICAgICAgICAgICAgICAgICAgICAgICAgICAgICAgICAgICAgICAgICAgICAgICAgICAgICAgIC AgICAgICAgICAgICAgICAgICAgICAgICAgICAgICAgICAgICANCiAgICAgICAgICAgICAgICAgICAgIC AgICAgICAgICAgICAgICAgICAgICAgICAgICAgICAg ICAgICAgICAgICAgICAgICAgICAgICAgICAgICAgICAgICAgICAgICAgICAgICANCjw/qOMmZ6neoQEy ukB8R4iaVv9YBh2YAJ8tv7HzJSDgMPqghaCyNweEYgKuAVSqQtdJLzn0HHuiTC9UiNNgY6RzE2LkRUzw QD2HNLMsCNYwbMUjAVCrHDCoUjL6FZFkLZboDG8LoN UtLMcpGICxQLAhIkAzDIGoUZAdTRPoDZ7EHBJrU047guYcHe2ZUu8RNqDpHW2iem1ZPeCaFZXmEmcAHe w5LAscMF1PiAWziJLyYoLrNAFEYvDtX8uuw7ZaUpkcMRHLQEzkME0Lw0FmlAByHZe+Ex6COT2wb6YhFR dyHeCjAR0izr5BJLrUZfSrK9TrnMypHNBbs1rpYHWd JM2nrIAbVPV5KYXzpLCgyUJTXUUzxNMxxHUaClfhAZWlJMYmWD5vLa4fQINmOSGoSlE3WGLADX3ORIMi DCMeoREwLIBpJOWLBE3OVWpvNWX0YYUtnzGqaGSwJUciWU8USYFmkjFmZwNjCDTPCIm+So0FIE6vm7Cm GHroJTEyKV4teq2AQAcTRoDiM0S5wYWqK3N9VYglSq 4EWRMaHFHoOqFzWMCTHUaeZA7QPM4apjA2RD6LmTXwKNZoLEOlqVRvFSw8P76hsWJdZGcrYI4ZBQY+Pi A+Da4VVKPpWBKcANLjLdViSMPCDwNiI4KhR4MDu1CuQ1VoBY28gWjowbWgLAaaQS8TFJ1uWUDiZIVEGC 4SwZIfyD6svhJeEyBpKRYUGoCtD14zdCObOQXuYZJ7 YCIuFe8KRIBnR0FvgzRluAgvesAeCMBvYLRPPA8XSIesnsYbeHKuhJxjSD72fFzsXT9CYb3CWbAfTX9m ca8JxBBePz5PNYXeVW8PDROjWLJiXOVhLDR3QJMcBjOpINnqZBSxOYUtUBI1HHFaSKLtRU4YLyWyFBTp ZnV3JvYyCBQqAEMsyg4VJYBnZYUjSmE3MEMxIBIaYK FfIEvyLIZbGYLjNPJ1QYIeRDXqTL8TToBwFXFjVYJ7XxNnFTUpFBNely5IATAoZXOjDxatHVBrPCNpTC OaUOkmITKsKAL6UyFqBVNrYOMzOI7ESvIlUVJmXYL0HTlnBKDqBCLhrl8SHEPwGQXoCMOiYYRoRJCySX HtXEiuKJIsSHE0IrJ5DRLxDLKzMU1BNbUoHTXmPMSf QXubUVUfKJDzeg4DNLPfVYEeLIN4SvJsQPAgCHEjAJezFSElBYRbPuw6JGXuKHNyGQ9XPsZvASDrUKQ0 HnlyDKKbXVUaht9XDNZcJTNxFMe3WRAkWKZwRZUpMVzjWVAvULIaZNW7MEQkROBkQY7DVkBhXACfHdEf QWJhVGSkJKUscf9LOWIjUXQmRtZ8KTNnOMQkAIMdEK xaIVKeUVLdWLR0GNSxZXPgYF0CDjPpRUTcIdHdCZfjQJRiQYJejg8LYFXeKPRhHOJ7ENEaUQUqBXHfPM wwDTSgLVV7JzN6HWBzVYOsAD5OUfJeVZRdDdR4HlWwKABnMFKbnl7EUURcXFLeCJLaWAJjEISbKGLuTQ gpGMNmDSE6ZSXgHRTjKDSmMV2PQiKsCCUuRfo8KaIh EKKuKLEudr6XAAXqQMXoSfU9LjKmQIVtEAKxQGyzZLYsVJK3Zzv2CZXoEBGpWA1PJjJwENtpBKLNAaz4 OVecS9u8JYOoEE1JA3Zqb8ZqChokUZPXWVmrPW2amuYjBOPiQf0HR8wAUlrxPMq0TaYpTOgqFtD3SoFf TMytTIlaMSZ2DMisIZUtKP1kOXNuOkafOmO5WGMjUi E9InK3I8WaVqR5NtbuCFUpKAI3NfCjDK7OUs7TNyO9BSZ2xSTbXi2CUiy2XbsXMfMtZD3MNLf= ID Date Data Source [id number] 03/06/2020 09:56:01 AM [facility] Name Value Range Interpretation Code Description Data Lynn rce(s) Supporting Document(s) Progress Note [facility] LBKJLa1qQwFFSaDy18/HJLlrDEKcl3LbVKgnBNh9BGvdVGYxC5BpGFH5nA0lNVM1JFpAKsYbIrUpWBO5 lbm [file] ICAgICAgICAgICAgICAgICAgICAgICAgICAgICAgICAgICAgICAgICAgICAgICAgICAgICAgICAgICAg ICAgICAgICAgICAgICAgICAgICAgICAgICAgICAgICAgICAgDQogICAgICAgICAgICAgICAgICAgICAg ICAgICAgICAgICAgICAgICAgICAgICAgICAgICAgIC AgICAgICAgICAgICAgICAgICAgICAgICAgICAgICAgICAgICAgICAgICAgICAgDQogICAgICAgICAgIC AgICAgICAgICAgICAgICAgICAgICAgICAgICAgICAgICAgICAgICAgICAgICAgICAgICAgICAgICAgIC AgICAgICAgICAgICAgICAgICAgICAgICAgICAgDQog ICAgICAgICAgICAgICAgICAgICAgICAgICAgICAgICAgICAgICAgICAgICAgICAgICAgICAgICAgICAg ICAgICAgICAgICAgICAgICAgICAgICAgICAgICAgICAgICAgICAgDQogICAgICAgICAgICAgICAgICAg ICAgICAgICAgICAgICAgICAgICAgICAgICAgICAgIC AgICAgICAgICAgICAgICAgICAgICAgICAgICAgICAgICAgICAgICAgICAgICAgICAgDQogICAgICAgIC AgICAgICAgICAgICAgICAgICAgICAgICAgICAgICAgICAgICAgICAgICAgICAgICAgICAgICAgICAgIC AgICAgICAgICAgICAgICAgICAgICAgICAgICAgICAg DQogICAgICAgICAgICAgICAgICAgICAgICAgICAgICAgICAgICAgICAgICAgICAgICAgICAgICAgICAg ICAgICAgICAgICAgICAgICAgICAgICAgICAgICAgICAgICAgICAgICAgDQogICAgICAgICAgICAgICAg ICAgICAgICAgICAgICAgICAgICAgICAgICAgICAgIC AgICAgICAgICAgICAgICAgICAgICAgICAgICAgICAgICAgICAgICAgICAgICAgICAgICAgDQogICAgIC AgICAgICAgICAgICAgICAgICAgICAgICAgICAgICAgICAgICAgICAgICAgICAgICAgICAgICAgICAgIC AgICAgICAgICAgICAgICAgICAgICAgICAgICAgICAg ICAgDQogICAgICAgICAgICAgICAgICAgICAgICAgICAgICAgICAgICAgICAgICAgICAgICAgICAgICAg JGDcVHSaWWHwYUIyWICtVYClEPXsGZUkIXQxBOSfEPLtWCQyVWFvGYVmURRrIHb0N1skIEFsGVWvBN9e NIo0Vf9+VEsQDjIiEEH3ghHgfZ9GNS8gl6PwHIdeMB Bnl6NgCNo0MZ7XYESjNIvmEF1LLHjfzu1ENLVzRCDdyPAGp3mjXxAyDDE1MRKtBoawZN9RJWRkR7thte EiTNHgTKLGXBkxXMACQHmeXFCCUK1AZjDaZ7MqsT47ZSRSGu0+OViqssYpSpjSMfS9YQGvw5IxRPg9KS 0FEUIpPzdtl0ToVlqfTSMZILdmFB9PQSH1IXO8BISm Qq7LVHXkP021npUtEJ7SIe7GHtByDV8rao6ZQgvqUQDnRbwDOja5ZQuqNJ6QaDZqWUiXaw4oafRljaPU y9KtvcLalSEOAXQwZSFrHJbqEW2mNXP9AVJVJGUvjMBlMg8nFJ2hBDQmIGFnZlH6VPAVQI5TUTMbJWIv cWVjETCpQFDMHU8CFCauHRS3UGXyodYjgDUbPVyzFZ 9QYXJlbnQgMjYgMCBSDQo+Hx9QML6nr0EiZDbjLQQpXX9pnm5OIQdFWfTbF0Q6lAMeT7W7URecHq9TPY LhPYSxEdIuADGUQDsjDY8XYP8qkoH4QA9AqWDiVSLnSKEygJDqMYu0W14wcEAgCHcvPE2VYHG+Antelmo+Pg 7QFVTvGXWdZVEmHzNrMMCNRtSlL3GfE1ZSd5IaE7Ct QD03hMaoegTtUJodND8DLS7tTNPoAHQSHS5ZfPCisP9swbLkAgOtJGOZHuNmW33bqXAnBJRtAYY3WWTy Zj4TXZEvW8CpqjXfiFrnqmFjWPFfMKJZLQ9KPKscooPqfQIgbPjnAE42gGjjHJ4IRm1CCmDvJL6lzc9A bZHrPt3UQQWrBN9NVIEhTEQlNXLcVLT9WEUnBeUnMI qdPOSzIDClSBW2ACBcMFDdYC8JIvAlHRGoUyRiEVGxFOQoVBCizd8BEITzUZJjUPYuMVVjARWfFJLkSU drFIDcOMFuUJB2MTWaWPYvYY1JIxTjMWCuIYT5DhycCHOmRERaeb3GHSUtHDRvXDiwYaQoGNDuGSYwYR iyCEDcZFU6OZR1QIJjGNDsDA0UGuDwEVVoXFuhTIHi UBPeMSZwuc5XMBXpQMBbOTsxTgQnYUUdGUVfNMsgDYHlGOS6ZQW5HIZkGYPiJK8WScZkMGOuRVY1Fqxw URGmMLYusp6BNTMhHJWwZSD5UYKfFTOqQSQaNJkhPHApTMRfXhG4ACLqLXVtCC5UZhQrIPQqQKKfYOBq IETfWIJjzv6WWOHuNTAyEiDpMBIcIFBdQYJyPXubFN PiBTUqNWt5IEJdIUVmFR5MXsKeIOGaDhZsJsGhKMYvWNKdkc2SMXAjVCElQQO2KIRuVHPgBOBdNUlbEK OlYNL8XFRlFWXgERYqWB2KKtOiWVJfObC3RPHqNFXePLHpoa8MZMRlMEJsUWx6UrBzGACtAKLeNDnvAJ MnXNP8JLz9GAOeXLCaCG5ABrQuGDDhIdPiANCpVXPd URTkpe5BNYJpBRVlQqR4DZLwTCKxSLPmTLveYCPjPPJ8Czx8NKIkOWEuCF8YLoVuBNZtLfdqCzYlPSHb LSPimh1JXOUtKXCzJBUvVnHlOFArMDKyLKfnFOCuLSJ7PmH5IRAfVYVdSI7LQvTqNFzfSVVIQdu2BSrs A5t7LFIwMC6PZ3Qdj2NbMsjhWKXNEDknWJ6utqEuRI ToJr8FD2yPYjzqKINsLMEmXPOgGtQeIZQ1MZG1Tuo6OcDnRYA5LOVgEX9qCVAvQvSpJsTjMWAsHZWrGH R0QtbqUfNaWUI1PNWmELA0RlAtML5CPs7LUcL4HTC5iUXoSs4ZDoy9EVMKOeTpRT3FFSg= ID Date Data Source [id number] 02/25/2020 10:18:13 AM [facility] MR LUMBAR SPINE WITHOUT CONTRAST [id number] NAL RESULTInterpreted by:Elfego Lopez MDEXAM: LUMBAR SPINE MRIINDICATION: Low back pain. Known malignancy.COMPARISON: X-rays 01/26/2020, CT 01/12/2020 TECHNIQUE: Multiple MRI sequences of the lumbar spine were obtained in the sagittal and axial planes. FINDINGS: There is an oval bone lesion in the posterior half of the L1 vertebral body measuring up to 2.2 cm. This is low signal on T1 and high signal on T2. Moderate marrow edema in the vertebral body. This lesion is causing thinning of the posterior cortex. Posterior cortex is expanded and bowed in toward the spinal canal causing mild thecal sac compression. No loss of vertebral height. This lesion is lytic on CT.There are multiple other bone lesions that are low signal on T1 and T2. Most of these measure 5 mm or less. Largest is in the L4 vertebral body measuring 12 mm. These correspond to sclerotic lesions on CT.L1- L2: Mild disc space narrowing. Mild disc bulge. No disc herniation or stenosis.L2-3: Unremarkable.L3-4: Mild disc bulge. No disc herniation or stenosis.L4-5: Mild disc bulge. Moderate facet arthropathy left greater than right. No disc herniation or stenosis.L5-S1: Mild disc bulge. Moderate facet arthropathy right greater than left. No disc herniation or stenosis.IMPRESSION: 1. Multiple bone lesions consistent with metastatic disease. Largest is a lytic bone lesion in the L1 vertebral body causing mild bony expansion and mild thecal sac compression.2. Facet arthropathy and disc bulges throughout the lumbar spine. No stenosis.This document has been electronically signed by Elfego Lopez MD on 02/25/2020 10:16 AM Name Value Range Interpretation Code Description Data Lynn rce(s) Supporting Document(s) ID Date Data Source [id number] 02/24/2020 02:17:47 PM [facility] Name Value Range Interpretation Code Description Data [facility] rce(s) Supporting Document(s) Progress Note [facility] AJEJHv6xMnEYChCe32/MLEttUOMeq2CvLXuiCYc1SLslTJPhM1IiIGW0rM7vZIG1QOjCXnRhVdRbVxV0 [facility] [file] AgICAgICAgICAgICAgICAgICAgICAgICAgICAgICAg ICAgICAgICAgICAgICAgICAgICAgICAgICAgICAgICAgICAgICANCiAgICAgICAgICAgICAgICAgICAg ICAgICAgICAgICAgICAgICAgICAgICAgICAgICAgICAgICAgICAgICAgICAgICAgICAgICAgICAgICAg ICAgICAgICAgICAgICAgICAgICANCiAgICAgICAgIC AgICAgICAgICAgICAgICAgICAgICAgICAgICAgICAgICAgICAgICAgICAgICAgICAgICAgICAgICAgIC AgICAgICAgICAgICAgICAgICAgICAgICAgICAgICANCiAgICAgICAgICAgICAgICAgICAgICAgICAgIC AgICAgICAgICAgICAgICAgICAgICAgICAgICAgICAg ICAgICAgICAgICAgICAgICAgICAgICAgICAgICAgICAgICAgICAgICANCiAgICAgICAgICAgICAgICAg ICAgICAgICAgICAgICAgICAgICAgICAgICAgICAgICAgICAgICAgICAgICAgICAgICAgICAgICAgICAg ICAgICAgICAgICAgICAgICAgICAgICANCiAgICAgIC AgICAgICAgICAgICAgICAgICAgICAgICAgICAgICAgICAgICAgICAgICAgICAgICAgICAgICAgICAgIC AgICAgICAgICAgICAgICAgICAgICAgICAgICAgICAgICANCiAgICAgICAgICAgICAgICAgICAgICAgIC AgICAgICAgICAgICAgICAgICAgICAgICAgICAgICAg ICAgICAgICAgICAgICAgICAgICAgICAgICAgICAgICAgICAgICAgICAgICANCiAgICAgICAgICAgICAg ICAgICAgICAgICAgICAgICAgICAgICAgICAgICAgICAgICAgICAgICAgICAgICAgICAgICAgICAgICAg ICAgICAgICAgICAgICAgICAgICAgICAgICANCiAgIC AgICAgICAgICAgICAgICAgICAgICAgICAgICAgICAgICAgICAgICAgICAgICAgICAgICAgICAgICAgIC AgICAgICAgICAgICAgICAgICAgICAgICAgICAgICAgICAgICANCiAgICAgICAgICAgICAgICAgICAgIC AgICAgICAgICAgICAgICAgICAgICAgICAgICAgICAg ICAgICAgICAgICAgICAgICAgICAgICAgICAgICAgICAgICAgICAgICAgICAgICANCjw/pQLqZ2pejQUv kiH6X5bzDo0ZWh0CCV3zo8VpOJSoTRrczyTrJkxJDaBaPIKpBxtCUbf2KDbfUW8AmOCeP2ItH0CgUTix EW2HJZEiAKFpdVZaDEDzJYCiKsW7YKNyMYnaWJ1KbT NpZZieIPKyTZPqUaMaALNiCQPqVVWrQMLnEZIYBK5QYtLoM3NldP81VRINZr1+EQufpbZyDfeFKtZ0HL Yho8WgHQz1NB5JIGIlIsjed0IxGsIoYSIESEwdLA9HBLF6RJJ5HBGhVp4HVFHhR773fvUjES0HFw8ALt ExHI9unl6UBcTpWYXiKrwLAne5NQsuSI7NxQHaKHfR cc9ajeZdzgKAl7AhndDkwOLIjSEwRHBvABMcMIm2TNGWZOZhaUXzJs0zMR9hVCJeODEtGdLsUQVCKY8B GEFiBQAaqYDxUUXgEBBVTO6VMBeuGTN4ZQXkphKsfDZiWGwkHK4QGQLcusNpYzWvDVEYQQi+Yr3CWM4q n5OlFCfrKrNaRL0xaw1CYAgFJtDgO6Z5qMDwX5K5CP doRh8YEMEnLVPiMvSbQKHLQGfeDS1NRV6vtuB0WK8FkRYzULRbESFdvOHjSMq3Q44jsQJtJDuwSB1XUI A+Antelmo+Dh8DJKHoWPHgCORjVpSuTRYJNiMqQ0FeN5TXy8MpV9ArJE04fAtsgyRuYAbgHF5MFG1wHLStRJ IJQT8PcQRxdM1vqhYxJTJgUADXVuBsL87izVWxKEJh AOJ0HZCvYz7JHJXuU9EkynCjbSxsyqEmLCOfCHUMHG1BEUveobFvsJUuhEivFO11kFupJB0SUz3SJkFx FM0snn5BdWTkDw7BLXIrTD2LPEGnJZTmQKZuYMO6CPLbZvXrDNbfGIPjMFDqITB7JSBbXTZiUG5AAeQn HLXqVov5GuSbVHMxDGDddi4FYLFfMPItOYW0EVEeDR QdEPXcXDbmGKIsHQAqHYT0AIPmCMXaLD1YHbEmQXLgSPI4AjnoVYTsTJKwss9WFBBfFHQxMwh9QaTbSG KsILErRDgaMTTuHKH3YYU0ODTuEXXcWD2GPxVbMIMzWOgcNiHnTJPeOACmro0MSEFaUQSnZUU4TYLnMP XpVKQrGUfwDUEyOKStYvQ5RYTiYQAnMK5UKcHzLSBr UYWtWRHpUJFdVYNpjf5IAMJgUDDsPqV6DSZxVEKtOAOpWTevTHLjXJBcZzT3FGUxDNAtLD0OKiClCWOo WLC5NOZkHPCdKDSyzi9NGATlUCJeFqvxEZNtCNYvBCTmLUrcWWZkUOP6Ufr9XNCbUSRcAP7PYjXcTCSg OOS8UZLoGRCaITHwke1BEETsRMWlNAW4WXTqDUJnAS HjFMknYWJhVCT0SBU5GPGvHWXqFY4VHuPbSIKaFtT6DaTwLGKjIXJkhh3LJHIcJAYtVtT7RnSgODMuGL UnKAxeQIGbJWF3PlezUIDpLKQyVD1CHwKcXLWeItp2ZyeuCNFvWAFyvu0TTEGaVLKnEmeyFSUtADRmIY IgPJmbPLPnZWS9Iwz2SDAqNPJxCB4EGeZmKREnFals RejiQTMpDPWchb3SJBOmXAZkCWLjTuRiTKAdJRCyXFu9axVnzPPuIBk6ZN9RW1XfyqZzTdmPFp6Pb889 PQB4CHAqKe6FV5lcBq5hEPQaPZJBZc1MPZm0KLLjEDyzD2PbVFZcMTt8GcQeRHGwWmDiMCIqT8UwURA+ ILa2MLKeDrMgBTRuMQJnXHZgCPRmIyI5JOPoHDDbAu QnGK7iOKNYXm9+VRzvdRNlfNnkMYFWHmS7DhZkMFncCARNUh7N ID Date Data Source [id number] 02/23/2020 12:31:38 PM [facility] MR BRAIN WITH AND WITHOUT CONTRAST [id number] FINAL RESULTInterpreted by:ALEKSEY Fullerlinical Indication: 54 years Female, brain metastasesMultiplanar multisequence MR images of the brain without and with contrast were submitted for interpretation.Comparison: 01/19/20 Compared to the prior study, there [...] measuring 4.3 x 4.1 x 4.2 mm (A P, TR, CC).The ventricles and sulci are within normal limits. [...] intact. Impression: Increased number and size of metastases.This document has been electronically signed by Leeanne Bass MD on 02/23/2020 12:29 PM Name Value Range Interpretation Code Description Data Lynn matos(s) Supporting Document(s) ID Date Data Source [id number] 02/04/2020 03:36:27 PM EST [facility] Name Value Range Interpretation Code Description Data Lynn rce(s) Supporting Document(s) Progress Note [facility] JAXYPo8tQsIDVjPf52/XNGpjNNNyz0IoEVkmJPd5MAufQLZlZ3PxIKX0aH9mQFX8ZMxCFsJyEqZqVjG2 lbm [file] cane flume watchman/g87YGnBBEYla5SlwoWWg/a6v3k8jZoOGlGyGdz8ReTG2m0C+JLBqINOlrlpvvFXVYgehtWbreFoJ7 [file] Cj4+VRmkmVGylYwvNJXJEhM2TCR1WQcwODDGQr8I ID Date Data Source [id number] 01/27/2020 07:17:37 AM [facility] XR SPINE LUMBAR 2-3 VIEWS [id number] RES ULTInterpreted by:Edward Rios MDC[facility]ERSAR[facility] SPINECLINICAL STATEMENT: Low back pain. L1 fracture.TECHNIQUE: AP and lateral views of the lumbar spine. COMPARISON: None of this type. CT abdomen and pelvis dated 01/12/2020.FINDINGS:No acute fracture or subluxation is identified. Normal vertebral body heights and alignment are maintained. The known L1 lesion is not clearly demonstrated on this examination.Normal intervertebral disc spaces are preserved.IMPRESSION:Unremarkable examination.This document has been electronically signed by Edward Rios MD on 01/27/2020 7:15 AM Name Value Range Interpretation Code Description Data Lynn rce(s) Supporting Document(s) ID Date Data Source [id number] 01/26/2020 02:26:40 PM [facility] Name Value Range Interpretation Code Description Data Lynn rce(s) Supporting Document(s) Progress Note [facility] AXNTOe4fNeHFMyTd66/XBIeeWXRif8XkXDkjONu9SSruGEAiG0SoCQQ1fG5yASV0ASfLRfBiYgTdVUXs m [file] ICAgICAgICAgICAgICAgICAgICAgICAgICAgICAgIC AgICAgICAgICAgICAgICAgICAgICAgICAgICAgICAgICAgICAgICAgICAgICAgDQogICAgICAgICAgIC AgICAgICAgICAgICAgICAgICAgICAgICAgICAgICAgICAgICAgICAgICAgICAgICAgICAgICAgICAgIC AgICAgICAgICAgICAgICAgICAgICAgICAgICAgDQog ICAgICAgICAgICAgICAgICAgICAgICAgICAgICAgICAgICAgICAgICAgICAgICAgICAgICAgICAgICAg ICAgICAgICAgICAgICAgICAgICAgICAgICAgICAgICAgICAgICAgDQogICAgICAgICAgICAgICAgICAg ICAgICAgICAgICAgICAgICAgICAgICAgICAgICAgIC AgICAgICAgICAgICAgICAgICAgICAgICAgICAgICAgICAgICAgICAgICAgICAgICAgDQogICAgICAgIC AgICAgICAgICAgICAgICAgICAgICAgICAgICAgICAgICAgICAgICAgICAgICAgICAgICAgICAgICAgIC AgICAgICAgICAgICAgICAgICAgICAgICAgICAgICAg DQogICAgICAgICAgICAgICAgICAgICAgICAgICAgICAgICAgICAgICAgICAgICAgICAgICAgICAgICAg ICAgICAgICAgICAgICAgICAgICAgICAgICAgICAgICAgICAgICAgICAgDQogICAgICAgICAgICAgICAg ICAgICAgICAgICAgICAgICAgICAgICAgICAgICAgIC AgICAgICAgICAgICAgICAgICAgICAgICAgICAgICAgICAgICAgICAgICAgICAgICAgICAgDQogICAgIC AgICAgICAgICAgICAgICAgICAgICAgICAgICAgICAgICAgICAgICAgICAgICAgICAgICAgICAgICAgIC AgICAgICAgICAgICAgICAgICAgICAgICAgICAgICAg ICAgDQogICAgICAgICAgICAgICAgICAgICAgICAgICAgICAgICAgICAgICAgICAgICAgICAgICAgICAg ICAgICAgICAgICAgICAgICAgICAgICAgICAgICAgICAgICAgICAgICAgICAgDQogICAgICAgICAgICAg ICAgICAgICAgICAgICAgICAgICAgICAgICAgICAgIC NgAEWsPMKaEXDhZKJkNKRwHHSbKSIbUHCiHZZsMXLhBQXgGTBgXXEzKUIlPTAvMSNvZNYfNBRcXQq5M0 zdMKWfVLBxNI5wCGm5Ot8+QOsJJqOiVYD1xhCmhT3DJG2uc0LrQTnxTVWjp9KqGEi7JH7MWJVrEFpsMR 2TTUcsvt5LLRBxITAwvAKNz0vzXxFiFUD7ITEvOifz BN6QCXJlS4elvqVjSCBoXINGGGdoSXYDNEitNUNMFODfBTSqJpNlXKwqMP6Zh8ElxVC6MCj+Ch9USQ3p d8OkDLvyOAUyMZ3and9ZMEbSLaXgF6IucgB7HXWxWFXfAg3RSCAfNRUknJF5PRRtXSZZDdFxK7ZatU35 IDENCj4+IFesjuFmAjiTHkMdXCJgv0UiVBp7GR0SZW JsCGl5yPOsVXRkC3Hoe5PbDo54RVQcSeuiAMY9mDvnujBKTXVbq0agCV7JTKQ9UECbYxLkErHqNzThFC V3YpIlBO1tUZiyLZ6BTSM0IUlaFGSfCHBhP6vPEtRyJBHdViExsLdjPW8XGzErA5BugfUvjATzLKLhLB INCj4+XUsyxuNbZhkQFlJfYLMmh7ZmCYb7LQ1LIWBp GSyuFP5GDBUitB3wDKsbNB5WFmPpMwDeQLLRJlNxS05npHFrJUs0I6WmNgUdPBBvMwdkZYXlCMheBaBe ZXMgWyBdDQogID4+ID4+BAhcJD3PMEllagAmPRIoAs4JEHVuYPLwJT0bUTMyVTXbC6S1pAcjYLYXRsWm Z1gsaxghGT1oRVYiM802cRhbknHbIJF0HOHiJz6SVL GhPPW0MKXmmYGnYelhENICVBscXE6LoFCwTQV1fX0lAVniZCWfJHVtV1nMYhJlgJlcKZ87nBvtrnApkA BdDQo+Aa2CLO8lh7LbNFm4rfMqHYzxTAReZWhyVKVqCEZoOQSxGUU4UJQ9BTSANwElCMLpUHGwJGieDR XaSMHwtx0ESDRfRGXhOjP0ARVgFIDeBDFyBQwlSJTg HDO1AACbBNOrYXRfCE1IFjIcOMCtNAVdOSmxNVRmYEIbxu3PZWOtNHGtNfZ9DyHiWISzMRHbPVfiDTZx NPQcBkJ4TNJfBVDhKR8ZJrBwEGVbEVV4PGOcTVZgDVRjyz7SMXQyJAHpVkfiPOIaSHKyRGHtVQiyDVKk MALgOMtxRBUbQTXxTB0VJeFrMUNiZGC6XkHpURCuOP Rmen1XDOBiVYGtXIw8KpRzYRLdVVYuLGfcLZYfQHFuIZnwWXHsGUTrAL0RPuGzFMPnWAU4UkNiMLKaTL Fbdm3HKIEzXVTxJpMpHSRvKKZzQPKnLTmoVHWmKRUeJeCcURNqOEDkCQ5YMlYpGUHpAHBwVdNfXFKcEC Dxvo0XOLGnZMMbFCZ1YqHtTYKpHATdSCkcIKZqYNR8 PiJzNVShSHUkZF9PXwPvHFWyTiIbLKYyVSChVUKqyx2KAESfUVDuGvLsCvCdDUXcANWjETmfHQDlLGN3 RjQ8OVXuIDOqEW3BUaJuJIFxEvO2LfEhNAMiJMEvcx3LHAKiRKZnVkRyHMZoXJPuQZNmKVbaCZRfOZT0 WVQ9EVQqWKPgRA7BQnCgKPSsBygfEMQgERRhPJVnce 6AJPLkXFSyVQWvZqYsONMhJYPaXRbrCLAzQEI7JtNeTBPzFWWwVD5RJgJjZNHoFmh2EYboCPXhYKXrkx 8MMERnNXOrXVCeFlHxGTZwKNUyTSmnNUHtVAL7EHcdCJIzLXOaAA7RLkFmOHJiSzB1VXQaVDQiLFDhbu 4CRZNcIZKsLQVkEnZfAWPmCQFuIDogTJOzQTX8BeW8 XMNsNJShFJ2BYoJuYQEuQaQ3UPqkBWWhLXCcbj4ETIDbZLHvLVBwIEZvYOGgUJCyNOdvNEZtJIJ9MFvt HHJkJYDoGA0VXjRoSMQvLiDpRZilGKTpGGMsrb0BMAAoEICyJzP5WyPuXXMuSPRtSWaxEIFmQGL4MISw HAFjQLLgXC7SXpJfQAOhXjrrEPDnMZMbAOZobh8EDL AcYZSmUTS3BGKxVDHnZDRsUAe9gsYqiAOyQFs0CK0XC4McgzXjWQPPVh0Rm722JLQbCUZvVo5SN2wvEt 2uJGYdTPDDHd6BMFu8ONTnAxv2HkCnJVDpSNBxX7YfG6MlUzYrLlRyJbMwUpD+NYk9L4UeIVlySgVpUN QwTuDrLhHmDlOwEwEyF9ZrSvW7Ix5gVWABLv8+KIjeeUXkmLywKJNNNqB0KEN3FSyaPPCNVn8J ID Date Data Source [id number] 01/26/2020 08:33:09 AM [facility] Name Value Range Interpretation Code Description Data Lynn rce(s) Supporting Document(s) Progress Note [facility] SWJANe0gMhSFDzHs98/BGWozTVEco7PjROzlQEy8UGmpAYUlL7MzFSE6zK2mFME0NHoSWgCdJgFtJPZt lbm AcHaiBBuTzDERkYoyYFxSiDQkkOsvydNJgGN1MuAU7BABvS46bZZDoVOTqN9OwIUE3OVd+Lw8CWILfbW RyMT6WSanU6R9kffqRAl7vfG+gOAS8MKCvw2o2EPHLmzAIke3WkkmWyq0CtgrFCiTcTLjar+mjlldRM6 a/92GNjfP9EaZhM7E0Zbp0Q0vr0mDX/30W+75rWZbI /61+9EMlvkKr00+NDcjsTfLgM7sk9oNoObfuF2p+czNRO33ThXVgC6MDpOY5Z3zOueuTuyVemTP5ot+b z+Fm95npN04LrIdMA/HxRf/yXNiBaynb/gztlIc1I2fNbFdJ7VaSe+WD0hgzVwGJrYqz7Eal7pAe9Ttb HjWfs3z6wjH46sa5Q4K99cSd71zpGyaEcPSA9wbKap 7Up1K6S5kfVzMHsdqFPgDkPy9+eKOObM0t1Vb4JpKyEmYmHa6pckghOp1Ox+VW1B2d4YaqWyz4lL1OoY t+qAK12DYuNeVAEVa8Gi0ty1vJ5ZH2S3e+hkb6f9ldmjTiag/HQzuZKK7pBDqTlc1R2cLSWD8XTKu4qt xxkwEM7xhk5vZ3qIPhBN7wFxbG0PjZvw91kx8VVhY9 TaELTgmvYapC9aK6B57gv/EAxCySOdi8moUBosg4vLw2rtFp/2vijQoKHa2E+J2Q2t2epMnpq9mIYjJ7 TdMhJL3vkDo3rLgE7JWKh19OmKxXRS0ah0VfrfCYa+4qcKyc/i1WYjW6XCEsHps0ODOhVdmw9wnDLvM5 SaHz0ETR4gJGPcH6MN3r6tTEpuqswPweZI9TtV/Santi [file] AgICAgICAgICAgICAgICAgICAgICAgICAgICAgICAg ICAgICAgICAgICAgICAgICAgICAgICAgICAgICAgICAgICAgICAgICANCiAgICAgICAgICAgICAgICAg ICAgICAgICAgICAgICAgICAgICAgICAgICAgICAgICAgICAgICAgICAgICAgICAgICAgICAgICAgICAg ICAgICAgICAgICAgICAgICAgICAgICANCiAgICAgIC AgICAgICAgICAgICAgICAgICAgICAgICAgICAgICAgICAgICAgICAgICAgICAgICAgICAgICAgICAgIC AgICAgICAgICAgICAgICAgICAgICAgICAgICAgICAgICANCiAgICAgICAgICAgICAgICAgICAgICAgIC AgICAgICAgICAgICAgICAgICAgICAgICAgICAgICAg ICAgICAgICAgICAgICAgICAgICAgICAgICAgICAgICAgICAgICAgICAgICANCiAgICAgICAgICAgICAg ICAgICAgICAgICAgICAgICAgICAgICAgICAgICAgICAgICAgICAgICAgICAgICAgICAgICAgICAgICAg ICAgICAgICAgICAgICAgICAgICAgICAgICANCiAgIC AgICAgICAgICAgICAgICAgICAgICAgICAgICAgICAgICAgICAgICAgICAgICAgICAgICAgICAgICAgIC AgICAgICAgICAgICAgICAgICAgICAgICAgICAgICAgICAgICANCiAgICAgICAgICAgICAgICAgICAgIC AgICAgICAgICAgICAgICAgICAgICAgICAgICAgICAg ICAgICAgICAgICAgICAgICAgICAgICAgICAgICAgICAgICAgICAgICAgICAgICANCiAgICAgICAgICAg ICAgICAgICAgICAgICAgICAgICAgICAgICAgICAgICAgICAgICAgICAgICAgICAgICAgICAgICAgICAg ICAgICAgICAgICAgICAgICAgICAgICAgICAgICANCi AgICAgICAgICAgICAgICAgICAgICAgICAgICAgICAgICAgICAgICAgICAgICAgICAgICAgICAgICAgIC AgICAgICAgICAgICAgICAgICAgICAgICAgICAgICAgICAgICAgICANCiAgICAgICAgICAgICAgICAgIC AgICAgICAgICAgICAgICAgICAgICAgICAgICAgICAg ICAgICAgICAgICAgICAgICAgICAgICAgICAgICAgICAgICAgICAgICAgICAgICAgICANCjw/oILuT9ah jZVyroU4N3woUw4MOd9JLR1lm8ClKFXnOQeakgOgWonELrAoMLKeTgrGUxb3RWxjOL2CzHCzE2QnR9Gw ICupBL7LEUPzHCNudKWpAQAwLRNxUvL1XGQiSAwnHJ 7PgFAbERooPQGrYVIzMnSwTYIcSI6ZDPZrW138skWcEo8WYz1RSlDiKU9rob1HIkRvFDGmEzwYOln8BD umSX1QgDThuVQqRxAcGDMYVlXbC5aoq2LiMnReEEIVTJgdSH3Hx9FjxKRcDNs+Vx7XBG2cf9EwGFqbCa JeVI8gxv0THAwBRxXzK3NstLzfACUqq3tsCONzMI1y lLWuRCP0TGQgjELwIZIuAaLmoGVeJLKWIXFmaJRvAB0xBH8lRZSfYEVkXhU8OMYEDV6AMPEcJAMgfIYx EQDoRCVGYY2CSXbdCRD2JKGlfpAerRUeTUafTW1KVHOgkoTgBxBcDSVVXBa+Jx9QEB2no4PxHOmzQfJq MZ2yml9NQUtGNfFfV3F0uEBjG1Q3BMdtYb8XJKPcGM RzPMgaDNOAVFflAF5KON7uvaI2SY4IwLUtJOIwUPNmkMTtHCt2C45odZGdBJmqXD0BFUT+Antelmo+Pg0KIC LlGFKhTCJlAiHzJABCAhAuA2BoB4RMc5BqB2FwXW04uIeuuqBpYXmxBD8JPM3sRAXoITSXVJ4NcTMosC 3ufwImLHDdQOUZQgLuF10qoGKuSWCuYAIoLLEvNe6E CZSpY0SpcfOgoGhyfwAvOEYmSCVEHU9VRDbgqiQvtRJylTjmBE71pDtdSQ7MHm0KArWsBB6elx5ZiGUy Dm6HBPRzAW2SXSIoFUEbEFAsEHM7TYYeWlGsCToyGUEfDJDcLTT5DAKbDCAaXH3YNkJqOKDtBCd4PSId AXAeBXWend3BRZImDTOmHTDfINRqMNHzXSCpPZapAQ JqHKDnWNZ1AESyGIIvQB1WNjBxVUPkPDGrOaemYUFdWKFylb3GNAAhXYHjElM5CYBtLTNmHQKkRKwsKB JrXID3IYH6QDTuPHFeLZ5CBkMuLNUuPWV4ELMhEGIaHLSwsn0LYOZlOZMwHFZ6XLCoFMHvZFOnXXbdEG VcNOZ0AuQ3GAYoMQUbMN1XQkJtFHFlDPC2EItwYIBg BDBxqe6QQSEaIEEdSuffQvEaRSMnVXVcAEocASNuLWK4NWK0KMCnXZPwMV3JWfUyKVRqYUutQIuqYXNg OLIphc4ZZUTcCFYcOEH7CmYdSRAzKKBdHQvjDWHzMEI6NDB9QTRrEZLpTG8AEaTwWMDhUGnpPcbzTOQd IOPxju0UELRfAHHyZZOxTaRwCLFaDOJiRKfqISOpBX J8QALiCXQhZXYnJP6GIyZuXNNgGVe9OgHwOVEaOWVwcd2LRKTuYSXiNORfRLKpREKgMFMwYQafIJLiEC ImVLt2WADuDSIvDT8REoDiLSJjUeT5VqsyFZDvIPGhry7ShVBqmGmzlk3ABSsAWy7JjRnlJPQ4FZpaRb 9vpWCvJwPpCFUVZt8XvbEnMOMnEEARLKsqRLHcRUOr YKYmTqM4IpV1WLR5TsRoFNX4EqjrFmV3ZIk0YCV9UaY9KWNsNGSwBFduGLu5WpudStUrVDpaRBY5NDJ5 All2Tkd+LF5tWCp+Sq1Ly1OqtkJ0hhTxJNzjGOq1Vg5MMDEYJ1OCZb== ID Date Data Source [id number] 01/21/2020 03:11:36 PM [facility] Name Value Range Interpretation Code Description Data Lynn rce(s) Supporting Document(s) Progress Note [facility] INKVHs1eAeXGXvYz43/UZUiwYKBso4NlHGrdACr0ZLzvCGBdJ8ZtIAU5wO9zENH6QZnMQoGjZcDyCLL6 lbm [file] EFl9GrVBMzMpQL4GDXx= ID Date Data Source [id number] 01/21/2020 02:09:53 PM [facility] Name Value Range Interpretation Code Description Data Lynn rce(s) Supporting Document(s) Progress Note [facility] FUTJCq6tBwYGTpAv71/MDIzvQCSxn4NjWCllYLs2CWdqGORaJ9NtROB0xK3zJYT2HWbZJnDjRrWlZOZ6 lbm [file] HDH5rDZtZf5FTfIiJxzBUcLgNY1JQYa= ID Date Data Source [id number] 01/21/2020 12:13:04 PM [facility] Name Value Range Interpretation Code Description Data Lynn rce(s) Supporting Document(s) Progress Note [facility] GOFZXr2aGdSHAdDp38/RPYlmXTEpv3NsYQpmNUl8HDlyLYHyD1MxVNQ4xJ2fOHX5STaUXeEtPzLrSTJ0 lbm [file] AgICAgICAgICAgICAgICAgICAgICAgICAgICAgICAg ICAgICAgICAgICAgICAgICAgICAgICAgICAgICAgICAgICAgICAgICAgDQogICAgICAgICAgICAgICAg ICAgICAgICAgICAgICAgICAgICAgICAgICAgICAgICAgICAgICAgICAgICAgICAgICAgICAgICAgICAg ICAgICAgICAgICAgICAgICAgICAgICAgDQogICAgIC AgICAgICAgICAgICAgICAgICAgICAgICAgICAgICAgICAgICAgICAgICAgICAgICAgICAgICAgICAgIC AgICAgICAgICAgICAgICAgICAgICAgICAgICAgICAgICAgDQogICAgICAgICAgICAgICAgICAgICAgIC AgICAgICAgICAgICAgICAgICAgICAgICAgICAgICAg ICAgICAgICAgICAgICAgICAgICAgICAgICAgICAgICAgICAgICAgICAgICAgDQogICAgICAgICAgICAg ICAgICAgICAgICAgICAgICAgICAgICAgICAgICAgICAgICAgICAgICAgICAgICAgICAgICAgICAgICAg ICAgICAgICAgICAgICAgICAgICAgICAgICAgDQogIC AgICAgICAgICAgICAgICAgICAgICAgICAgICAgICAgICAgICAgICAgICAgICAgICAgICAgICAgICAgIC AgICAgICAgICAgICAgICAgICAgICAgICAgICAgICAgICAgICAgDQogICAgICAgICAgICAgICAgICAgIC AgICAgICAgICAgICAgICAgICAgICAgICAgICAgICAg ICAgICAgICAgICAgICAgICAgICAgICAgICAgICAgICAgICAgICAgICAgICAgICAgDQogICAgICAgICAg ICAgICAgICAgICAgICAgICAgICAgICAgICAgICAgICAgICAgICAgICAgICAgICAgICAgICAgICAgICAg ICAgICAgICAgICAgICAgICAgICAgICAgICAgICAgDQ ogICAgICAgICAgICAgICAgICAgICAgICAgICAgICAgICAgICAgICAgICAgICAgICAgICAgICAgICAgIC AgICAgICAgICAgICAgICAgICAgICAgICAgICAgICAgICAgICAgICAgDQogICAgICAgICAgICAgICAgIC AgICAgICAgICAgICAgICAgICAgICAgICAgICAgICAg NZEgISMzAQUpQMLnWBGwMOCdMFLoNXSeWNXdIDSiGCPeHMGjHJEuCSZuJBRlKIEeOVAiIVx1M2wfEKJe JDPoIX1jNWf6Gb1+DEeIBbNyWQT9szUwwH5RKO9uf5PnPDoaYAMmm4DhFYj5DF5IKQEqOZpxXQ9CPTlm wg3ELHMvMMLcnZOCb7smVxHyTRW8PCUoWxmmKF2XKT FdA3vdcyWlRBTcWJTZHTlyONLXNGorIYUCZTIoVAIaVpHbJNczBH7Ka9UqfEE1TGo+Ex5IKY9wn2CwDV fbEOZcDT3ska5TMRmIYvTpW4ZwscX4EJItCACpQx5GYJObEIEzmWHkBcZkAAYZCrXbT8LwrN68NZZQJk 4+URwecaVkHgpNGvJmQIHvt8DyTDb4AN7QIJWfFVi1 kWKjAKVlG9Qcj3HuQg51ZSWkBjouN0IbmNCnAgZVxx08wtogDNVeBIQoIHEbNpAsYyYlPMWfPAvsTSLF XJaBBgPuQ5Xll8RoEwX4KYZfAhMkCTujQICgSdS9TJ35uFsuWV2XTWIgQHKjJX35RGUbREZjEy8DCr0T VhWmBL4imw3QByRbCLGpHbxNTnv4QAweTW8HlRHoV0 AlfXQmi4cWXkEiU7TDUGU9XJObDt1RNZWcDqZvFPDyGUaoPM3qFTPkAYXWmQzwvmH1YN3ZCD8pkeGpJD 7LAkCyWr4mXx2HOzIvX9HfG5JiCYInKQDNOXslVB5VBQnfCF0kXG5Re1UGaJZqaA7kvy5PZNIbGKJiOy dxyv5XKdcfZ7P2iIjuVXQlMgDcVFWXZAclAO0ZDCLs ARH3KBJkGDMqRZWCTgXtT47zZR5BB7Zex73tPoP0SMOdQqCkLPdeTJ19jXfplvNntOPhqPgjTM4AWq1+ GJqyisDlQyqYRzpeLWGZYcPrTzFZWqJxBRTyTWXpCBNfYqI3MsUdXl5MDJLlRSTxVLRmCrAkKJGrZINr VYyxGVDmWAEdXMMwCAHaPDKzAE4CQzWpHKOvXnXvLQ AwIIMrIXTkcn2SIOGbGLZpHWQ3DiVdMNPcETPjYMgaHTYfMTM2LQF7JICmRSYcPO5UAaRxKUHfKGEnUr duFCMcGUFkvw9DPCCxTYPaYoX7DzUkKOYlBDYeJRetQUDgKYN3OHqdGAOrELFtDY9AWkVdNSMmOAS8UR AbXSCuJRKnof8OFVDtYHIlWRDxAZXrUNPlXTWgHQpp LTAlBWXqBIPjIDQkCBGeJD0QZcOqMHQuYWS1OmktZZWtSZHzjd0MDSAjXBZfXtzoZLUsMXAfIREsSYts XFYlMAOdDJS6KSMbUZDxUL8WWmHdRTFfOJByJUqgCDSzXMDnbq7QSNIsEOLbIYZ8ZSDzIYKrRNNnECkb ZLYpPSN6WfrtJOHbGYOhRQ4IMaLnRTIeRDH6TAtbTM QvGWUayn2ICYDhHQVhBds8ARRjWCSsSNYyBLiySQMwJGJ2ClWeEUWsXABrQG1YEsGcHKOzNjf9KzMdYD MsGNKdpd7YHDRrDCJsVuC3DlUkHPPjHEWpEUelJQGwWOH8HHZ8VQOpKANcQD0YDxPkZYNxFtw9HeUzES MwYRPmnf3SAIJeBVFxKAe1OpOdXHCfJMUaSCqbHADa LCM1YELmPMXrXWLuON6ABzNlIMVxWkWcIxNfOTPnULKbng4SSIGhPSGnONR9KtPnYUOdKIXzWWsiIBSv EODzFIYfTVDwSDPyPV8GKvZwRRRtIrP3WtVkQPLpBENcax5FGUHgJFRaEeSnLHSfYIVsZYGmXDznECXe JRJuOWEpIGUtKVOyMD9OIyUkECJqZrQ6LDUwTOHvXB Ynjq8RvIAuvDiuym3ADJjDYe2GgRyjCSR2QRouGy4brOOpQtLhJUUCVj6QtdGnGOMyYVHPCRtqVHHrKM smMOJ0DRSoKONfIlT3DzEaUxEfAIVbZjAtFxXqKlL2DoB8HLT0IvHvVCIwHBF1YLdvGUF0STX4OGA1XF XbJQS9Csr+HV3hABe+Mf0Yv4MvahU4fvXhTAnsDln6PH5HZNBIG9BHIi== ID Date Data Source [id number] 01/21/2020 11:21:40 AM [facility] Name Value Range Interpretation Code Description Data Lynn e(s) Supporting Document(s) Leukocytes [#/volume] in Blood by Automated count 4.3 10*3/uL 4-10 [facility] Erythrocytes [#/volume] in Blood by Automated count 3.52 10*6/uL 4.1- 5.3 L [facility] Hemoglobin [Mass/volume] in Blood 12.1 g/dL 11.5-15.5 [facility] Hematocrit [Volume Fraction] of Blood by Automated count 35.4 % 3 6-45 L [facility] Erythrocyte mean corpuscular volume [Entitic volume] b y Automated count 100.4 fL 80-96 H [facility] Erythrocyte mean corpuscular hemoglobin [Entitic mass] by Automated count 34.2 pg 27-33 H [facility] Erythrocyte mean corpuscular hemoglobin concentration [Mass/volume] by Automated count 34.1 g/dL [facility]0-[facility] distribution width [Ratio] by Automated count 14.8 % 11.5-14.5 H [facility] Platelets [#/volume] in Blood by Automated count 242 10*3/uL 150-400 [facility] Differential cell count method - Blood [facility] Neutrophils/100 leukocytes in Blood by Automated count 80 % [facility] Lymphocytes/100 leukocytes in Blood by Automated count 10 % [facility] Monocytes/100 leukocytes in Blood by Automated count 8 % [facility] Eosinophils/100 leukocytes in Blood by Automated count 2 % [facility] Basophils/100 leukocytes in Blood by Automated count 0 % [facility] Neutrophils [#/volume] in Blood by Automated count 3.45 10*3/uL 1.8-7 .0 [facility] Lymphocytes [#/volume] in Blood by Automated count 0.44 10*3/uL 1.2-4 .0 L [facility] Monocytes [#/volume] in Blood by Automated count 0.35 10*3/uL 0-0.8 [facility] Eosinophils [#/volume] in Blood by Automated count 0.09 10*3/uL 0-0.5 [facility] Basophils [#/volume] in Blood by Automated count 0.02 10*3/uL 0-0.2 [facility] Nucleated erythrocytes/100 leukocytes [Ratio] in Blood by Automated count 0 /100{WBCs} 0-0 [facility] ID Date Data Source [id number] 01/21/2020 12:03:55 PM [facility] Name Value Range Interpretation Code Description Data Lynn rce(s) Supporting Document(s) Albumin [Mass/volume] in Serum or Plasma by Bromocresol green (BCG) dye binding method 4.1 g/dL 3.5-5.2 [facility] Bilirubin.total [Mass/volume] in Serum or Plasma 0.4 mg/dL <1.2 [facility] Calcium [Mass/volume] in Serum or Plasma 10.5 mg/dL 8.6-10.0 H [facility] Chloride [Moles/volume] in Serum or Plasma 94 mmol/L 98-107 L [facility] Creatinine [Mass/volume] in Serum or Plasma 1.55 mg/dL 0.50-0.90 H [facility] Glucose [Mass/volume] in Serum or Plasma 163 mg/dL 70-140 H [facility] Alkaline phosphatase [Enzymatic activity/volume] in Serum or Plasma 76 U/L 35-104 [facility] Potassium [Moles/volume] in Serum or Plasma 4.2 mmol/L 3.4-5.1 [facility] Protein [Mass/volume] in Serum or Plasma 7.1 g/dL 6.4-8.3 [facility] Sodium [Moles/volume] in Serum or Plasma 129 mmol/L 136-145 L [facility] Aspartate aminotransferase [Enzymatic activity/volume] in Serum or Plasma 28 U/L <32 [facility] Urea nitrogen [Mass/volume] in Serum or Plasma 20 mg/dL 6-20 [facility] Osmolality of Serum or Plasma by calculation 275 mosm/kg 275-300 [facility] Creatinine/Urea nitrogen [Mass Ratio] in Serum or Plasma 13 [facility] Bicarbonate [Moles/volume] in Serum 22 mmol/L 22-29 [facility] Alanine aminotransferase [Enzymatic activity/volume] in Seru m or Plasma 14 U/L <33 [facility] Anion gap 3 in Serum or Plasma 14 mmol/L 8-15 [facility] Glomerular filtration rate/1.73 sq M pre dicted among non-blacks [Volume Rate/Area] in Serum or Plasma by Creatinine-based formula (MDRD) 38 mL/min/1.73m2 >60 L [facility] Glomerular filtration rate/1.73 sq M pre dicted among blacks [Volume Rate/Area] in Serum or Plasma by Creatinine-based formula (MDRD) 44 mL/min/1.73m2 >60 L [facility] ID Date Data Source [id number] 01/21/2020 12:03:55 PM [facility] Name Value Range Interpretation Code Description Data Lynn rce(s) Supporting Document(s) Thyrotropin [Units/volume] in Serum or Plasma 29.200 u[IU]/mL 0.270-4 .200 H [facility] ID Date Data Source [id number] 01/20/2020 03:54:51 PM [facility] Name Value Range Interpretation Code Description Data Lynn rce(s) Supporting Document(s) Progress Note [facility] SHFPOw0sDmPIUiWz45/LVGldPKLiv8NsPFfvOSt4HIwlHRKjT8ZmIZV4lV9eWXB6YLyKIvUdMtWzINB6 [facility] [file] ogICAgICAgICAgICAgICAgICAgICAgICAgICAgICAgICAgICAgICAgICAgICAgICAgICAgICAgICAgIC AgICAgICAgICAgICAgICAgICAgICAgICAgICAgICAg ICAgICAgICAgDQogICAgICAgICAgICAgICAgICAgICAgICAgICAgICAgICAgICAgICAgICAgICAgICAg ICAgICAgICAgICAgICAgICAgICAgICAgICAgICAgICAgICAgICAgICAgICAgICAgICAgDQogICAgICAg ICAgICAgICAgICAgICAgICAgICAgICAgICAgICAgIC AgICAgICAgICAgICAgICAgICAgICAgICAgICAgICAgICAgICAgICAgICAgICAgICAgICAgICAgICAgIC AgDQogICAgICAgICAgICAgICAgICAgICAgICAgICAgICAgICAgICAgICAgICAgICAgICAgICAgICAgIC AgICAgICAgICAgICAgICAgICAgICAgICAgICAgICAg ICAgICAgICAgICAgDQogICAgICAgICAgICAgICAgICAgICAgICAgICAgICAgICAgICAgICAgICAgICAg ICAgICAgICAgICAgICAgICAgICAgICAgICAgICAgICAgICAgICAgICAgICAgICAgICAgICAgDQogICAg ICAgICAgICAgICAgICAgICAgICAgICAgICAgICAgIC AgICAgICAgICAgICAgICAgICAgICAgICAgICAgICAgICAgICAgICAgICAgICAgICAgICAgICAgICAgIC AgICAgDQogICAgICAgICAgICAgICAgICAgICAgICAgICAgICAgICAgICAgICAgICAgICAgICAgICAgIC AgICAgICAgICAgICAgICAgICAgICAgICAgICAgICAg ICAgICAgICAgICAgICAgDQogICAgICAgICAgICAgICAgICAgICAgICAgICAgICAgICAgICAgICAgICAg ICAgICAgICAgICAgICAgICAgICAgICAgICAgICAgICAgICAgICAgICAgICAgICAgICAgICAgICAgDQog ICAgICAgICAgICAgICAgICAgICAgICAgICAgICAgIC AgICAgICAgICAgICAgICAgICAgICAgICAgICAgICAgICAgICAgICAgICAgICAgICAgICAgICAgICAgIC AgICAgICAgDQogICAgICAgICAgICAgICAgICAgICAgICAgICAgICAgICAgICAgICAgICAgICAgICAgIC AgICAgICAgICAgICAgICAgICAgICAgICAgICAgICAg KTEeWNExRWCvHEGmWCAhPHWbERd2A1chVKRrGNBeCR3cFMu8Cj9+VZfMUqMpJKS5wlAzsV6XXO2cc9Aw NBbyTHRcg8NtCMw4SE2SZHZqSSfiUF0ARIxtht1VIREgIMHwoIDMw6seWzHsBLY8EJGoVxatCJ8KJNOk N0lbnyPcEGPuAVSDITlnZMTQSXbyXXYLSEYnRCTmCy YvYpMhVMXwQANiTQBCVSZ5DTHsHzLyTKqvJT4Sm0JnuQU6JWy+Ba9SQK2nv5OuMUqxLRYqRF5qql3WZZ tSCbDwC1RjyoZ2AOR9WHLrFr2PUXNhLHLvdTVpOIXqCHMLTfEjB7AfsR03NMCDJc5+DQplbmRvYmoNCj T0QGBql5RgLBt0BB7SSMGlTFx0zFAwOUAwL5Lgb4Wd Pr01VOFpBzqoUaTpxvXsTZIGOVGljCLzeppsFYOiNBSlOVJzZs0qMCGxWRXxEwTzYUFZJU2PORJaRRTv iMJaHSMrNRAMKB6CLGxgJXD5QFVojpIcwAMtQPmyRU5UBAIfxrDcVyVsZVTCBLi+Uw7JJQ3at0VcIAia QqKcAG6pfq9QRYvLTvRoX0X6eAUoS3Z4POhjAt7SQL HqMGUlQgAqEKSMWNiiEE3KNT5uqnE1LK1FlOLrHVVsUEIdxEXuFCs7X44lgDRkTMjaBE9DYRL+Antelmo+Pg 3TWGHaNCLkUBCfCdNbRFOACaUuT3IaL2WNb7MrW6BqXJ57qWjbwnFgRZntWI7TZZ6iHSCfNDXSFN5TxS WehR4ojmCzSRQwDGJEBgFgM94wfHXsPACnESQjUKMx Bq2DVHLvC7WeboPrwGriqmMyPHFzZBPBAK9YRNouhoGehKAnjIvlRW19zLwtMY3NYy8LHhRgVB7bbs7S xSUtTb3YWNGhVc1OOQDbROZdPAOjKBX7SXVfIkVvKRsjSYUpNDXkPHR7HBNxNCOdAC9PMoBiCOBjZosi JaMfEAXkPYFwkz9SURPgNWS4PZZ4GKVdYFGhYKPxBQ pyOTUzMRPaFNT1SEOjCPAlCC5IUxNoIBKdFAByVmVfIKGaMPGpbe8KKRSiWJBvADZnNjHgXTHsBRRiKX nnOWJnGMM7ShA1ARQlJURuGU7SHfLdHJJdLBe2EanlAUSiAWApiv5ONAMlDMFmDCf0RBCxFHVxUAYiGG cdMNMwWSNkZNqeONGlQAMmES0OXlYqLBPlYZOpFsJj JEWyYARaqo6QUZNaKCJsIsW5OmHpAOTrODAzKHvzEZXyFNF9YAApPRUrJAAgLO4JEsOoHAVeCRtcFAiu UZDmXPCvdu3SPEBmBKKxKUr7NWFuIJWvTSUyQBygMFJtMXIhXNm0VDRsWYHfEA5BWiGfGYUwEuM6ShEz ARJnSJRxnl3YOXCxMDMgLPb7OBWhONVcBARcWHkdJF OeJTZeAMApNBHpZAOlZC0BEkHiCVSrCgRjDLrlDFLoRSMeok7EUATtETIpDmS4NHGoZDBaLIScPDgfPH BeNII4JtG0HPQsJUUsWP7PBbVvAMDmVaZ1GEWrJAYnKWEayc9XINQwRLPuKVDbDZSzHEQkFHPkLIuuHU QvGWQ2GBK9FZBmPPDqTJ1HSzKtUIOoErWlJZAeQDQt KWDfjn9SQGYlEVXjGwL3HsIwVCGpERBxACtxBMUhFAI6XHQhCCIbWKZsOU7KLoIsYMYqJgA6NWncHLHo MJHust5YXMKsISLdJshmAcPeGPYkFMWaUXowVAIpNIA1OSKdFCLkTHJfHY3DSjKjSKXwMdmwJUFeJOQu NSZrud5TZPRkBZEcHZsnQGLqGWNuCLVnDHzwJRXkPX NlDGu8RLIbFKIsEH1GKcGbGIXsMRYcWuxsWOClOLMook1ZDQZfAEC3FHXbZESwUNNkHJQeHWj8jrJagK RsXWh7XL1AH7RmhcSwEelBIy4Ms209YDN7KIXvZt8VA6qyNs2uDJZfHHNKHt4RNAf4TEK2PhhyXVGrY6 A0OHU4CVFkTSOdHVEnDYYqFWUjZwK+HNp0VYFaHaZ9 LGS5MAX8YFu2DqT8VKLpKgO0SBYsZeZhMX1gBDODQs1+UUtsiPNnxEyrFSSKUuTuTxMfHMjsTCWUFv5X ID Date Data Source [id number] 01/19/2020 03:50:39 PM [facility] MR BRAIN WITH AND WITHOUT CONTRAST [id number] FINAL RESULTInterpreted by:Marietta Mendez MDHISTORY: Status post radiation for brain metastasis.COMPARISON: MRI brain September 15, 2019.TECHNIQUE: Multiplanar multiecho MRI of the brain emphasizing relative T1 and T2*information without and with intravenous contrast administration was completed on a 3 Mitra magnet.FINDINGS:On the current examination the enhancement in the uncus of the left temporal lobe is a better delineated and demonstrates mild interval decrease measuring approximately 4 mm in the cephalocaudal by 3.7 mm in the anteroposterior by 5.5 mm in the transverse dimension.In the right aspect of the marylou there is new focus of enhancement measuring approximately 4 mm in diameter. There is an underlying focus of T2 hyperintensity as well. Otherwise no additional enhancing lesion is seen in the brain.The diffusion-weighted sequences are unremarkable for an acute [...] matter ischemic changes. The basal cisterns remain patent.IMPRESSION:Mild interval decrease in the size of the enhancing lesion in the left uncus.New focus of 4 mm in diameter enhancement in the right aspect of the marylou suspicious for metastasis.This document has been electronically signed by Marietta Mendez MD on 01/19/2020 3:48 PM Name Value Range Interpretation Code Description Data Lynn rce(s) Supporting Document(s) ID Date Data Source [id number] 01/19/2020 10:09:38 AM [facility] Name Value Range Interpretation Code Description Data Lynn rce(s) Supporting Document(s) Progress Note [facility] QGQRQo9fHwRYQwHq59/QFDmqQTGbj7HeHCowWYy4HSmbBYTlK3YyHLX4oU6yFKV0JZfQXfHhIyFyMPYu lbm [file] YpJ9XWPyQEWeR5ZjGDSkJCT+PT2wUHk+Lt4Ew6TettN8wcLwAAnoWBAhUo0WFSNTQ2YVKk== ID Date Data Source [id number] 01/14/2020 10:31:55 AM EST [facility] Name Value Range Interpretation Code Description Data Lynn rce(s) Supporting Document(s) Progress Note [facility] XMLNSm5eGjMHJkSs99/YPTyvHLFgi3FnFHrfCZe7AItjHGDgP8ZxPSX9oO9kEQF6WFhSRaUkPiCeUXV6 lbm [file] UsTGQyPJRfZ2L6XQl8WtB9FhH3KHP+LR1aCRy+Qc8Fz8UzfaN7rrWdREjjMYZ9Mu2MLXSAX8AGTc== ID Date Data Source [id number] 01/14/2020 10:30:15 AM EST [facility] Name Value Range Interpretation Code Description Data Lynn rce(s) Supporting Document(s) Progress Note [facility] BCAOHh8aAqAWDqHo61/UGEdgWKWwy3FxBTwsPXe5WYtlDBItV6PkQRG7wP1wJHQ3AAkOEqWzRbAoNSY8 lbm [file] mdkHqk7gYPi6uesFJpXWb+O2CJbg3dCCC1c4Ao78l50uK3+Z23s/dmrBIaT4eVeWsq9L+[employer] Trader+/q+Ny5+ [file] E/euasCRyYJodkq9CWTOX9m4h5uEws9I9D6pu1OxUDId+kV3KkAOIhi+EL3+/Erma/3or9nJFcijZd5UY X6p4MIlRxaSOq4l501OhgaR8VlajgB27wnpNyqvNsuvp64BFTa/1gbZfpxK7V+5WSVJRQqrk425hMkrl 0hwP72oGI4vS6uqkN7tWtR26nwezXNKZewEWS3ORJL IQXlGZrf8QHR8K13tjom3DRAtQrg4G44xnLVAthhhy7KfOLOMvpB4AvJRHIqD2NNDNBMhVfnfWEJSJR4 CGStdOKPyFvEL6fA35Pwkib9rTrr/+NL2l5QPTONAMH8u06XBXnZItGurCZyP694BgfxMHwVM3CWk5Yq iXqkEHfMbOoYnxD76fio4ELmGhViQ7QPJMdZiKAni9 6AhPWrGTsYCvj75rbCfp/José Miguel/0HNyfgy3CTX7CRFRySYaZg0sgzLPOHMAGhjWoNeJti3NoSdO45a1LLH [file] ICAgICAgICAgICAgICAgICAgICAgICAgICAgICAgICAgICAgICAgICAgICAgICAgICAgICAgICAgICAg ICAgICAgICAgICANCiAgICAgICAgICAgICAgICAgIC AgICAgICAgICAgICAgICAgICAgICAgICAgICAgICAgICAgICAgICAgICAgICAgICAgICAgICAgICAgIC AgICAgICAgICAgICAgICAgICAgICANCiAgICAgICAgICAgICAgICAgICAgICAgICAgICAgICAgICAgIC AgICAgICAgICAgICAgICAgICAgICAgICAgICAgICAg ICAgICAgICAgICAgICAgICAgICAgICAgICAgICAgICANCiAgICAgICAgICAgICAgICAgICAgICAgICAg ICAgICAgICAgICAgICAgICAgICAgICAgICAgICAgICAgICAgICAgICAgICAgICAgICAgICAgICAgICAg ICAgICAgICAgICAgICANCiAgICAgICAgICAgICAgIC AgICAgICAgICAgICAgICAgICAgICAgICAgICAgICAgICAgICAgICAgICAgICAgICAgICAgICAgICAgIC AgICAgICAgICAgICAgICAgICAgICAgICANCiAgICAgICAgICAgICAgICAgICAgICAgICAgICAgICAgIC AgICAgICAgICAgICAgICAgICAgICAgICAgICAgICAg ICAgICAgICAgICAgICAgICAgICAgICAgICAgICAgICAgICANCiAgICAgICAgICAgICAgICAgICAgICAg ICAgICAgICAgICAgICAgICAgICAgICAgICAgICAgICAgICAgICAgICAgICAgICAgICAgICAgICAgICAg ICAgICAgICAgICAgICAgICANCiAgICAgICAgICAgIC AgICAgICAgICAgICAgICAgICAgICAgICAgICAgICAgICAgICAgICAgICAgICAgICAgICAgICAgICAgIC AgICAgICAgICAgICAgICAgICAgICAgICAgICANCiAgICAgICAgICAgICAgICAgICAgICAgICAgICAgIC AgICAgICAgICAgICAgICAgICAgICAgICAgICAgICAg ICAgICAgICAgICAgICAgICAgICAgICAgICAgICAgICAgICAgICANCiAgICAgICAgICAgICAgICAgICAg ICAgICAgICAgICAgICAgICAgICAgICAgICAgICAgICAgICAgICAgICAgICAgICAgICAgICAgICAgICAg ICAgICAgICAgICAgICAgICAgICANCjw/dTJjI5wmbY CwgtD0T3qjXu4RSs3ZYX9fh6BpFARuAPqggfPcQdiBFqFiCDUnZwcDXme2EOaoKA5IiSMaI9ViL5NeRE mjQA7CJSGkMECohWIqMOSfPHAuNbN4NFPjOZcqZE0BuUGlMZhtSXMjLZSyFsBwKRQcRRRuASFeKCFfZH QEGGUrHCPpYuUzYKFfTNQnWV4BLPDaQ245lbThKg1C Vm4FFdYsWX6ifm3UBultSIXxDfmCLxt3GKixGA5WxGGvyNFyHUExUFTMQhNfZ8ppn6YyQfFlHBPIJRdo MQ8Hv3UqkHMvIIu+Dr7ZCR5ll2DnFYnvYKZbPY8ymy7UONzSGeYdW6VwrUxkBUMem7ycURBaZM3waVVx XGH9BFSnjKUfOXPaQrZpvHNoMEOWSLQqsYQaTN1bEu 1bHRWcTPGzJdEtFABSFC0JINBqDCWxeZMcXGTgYPYIGW8OURtmGWJ5FJJtvcArtQSaBTudPN8BHJFvkg QgMjkgMCBSDQo+Th0TNW8sw4YjNTvxYTAmLU6iss8QTDpKClOiJ1H4ePQdA2F5NCxnLo7SCGZdCSJwQg raCUUFBHreBV7GEL2rnzG5FW3NkEJeBJFxVMFurUOt UCo6T79chGQeTRxqMB9PWSO+Antelmo+Pd0BDOJrHKDyRCWeMgGtFNEJMtPiG0YwG9XLx4HeX3TpQP43wDzk yiYwSPzrPG5ZLE0pYSDrKMFIEU0NaMXunW2vzqYzXCJhLNORHvZzR11ihAQwTOXrRQV2JXMyDr8PEOBb H9PylmScqTrpaaGkDOFfMBCGWQ4VZJxiuoZcdUOgjW lmQN73yLenUI7BNl2DCgYjVI8niq8NnPMtBm1FYCTbHf9HWNXxJGRfOOBiZEX1JHTzMoFhUOuhUFUmZC WeCSU9HDMpDASjBD4FOnWzGIXnZjE4GhMwUSHbNMIosf7AJDWnNLVnYaV8XVTeICFmCGFzMXbcFDClDX JrNMX7BODkIKZnLN2FDrCbSVRgDFL7CFMbGDWgHKWq hp1UGENiVBLfTeg2DODdJABuSLVlITinAXDmOJT9Jjm0SWDpUKMeOH9UZxIxFUFfNTV0GKMqLIYsOXYc au0TKGFuQOFhOVB9HsXvXQPyFSQcMHjhOORcGGQjNvBpPRAiBWUxKO4TFsLlUSVeKRH4LFPiUXOcIOBc rk7FYWMpFRIqZqh6BGKcHUDxVLCpTGizZJIdOSU1KX O3VRYkBQOhWJ8AByUtWWSuLZe8QDQnZRCgYLOvqk2XLCLmTWTzTCJ0KBOvNGTzZKYwDIhkIZIrLJP8LT GlUVTySCFsSF1XMvBfKUVaUvJ0IQSuFAQdNEOlgo3NTGNzFOUzQJSaPIGnIEZsXGAvMXncQFEdRJYfGw juYBAmFNDyMM7ZCtCsRSBzYjK0XMQjOSMeBWWkor2I NFHnXJFwUUp6GdGnPQKeSYUeIGqrKVFxORKlHZNqNJAhCKSmJY0LGpRmEALvCcR6NhCcFABcIYIyrt3F CNPyWQXiIpu4WOKeGXNtSUYxVPwuWPXlZLD3XEG6LWBaVBZlFK4EFwWbPCAqGgEpGJHbMBAuMOLdua0W WZLpLQCdGUTaYKKzKEYuAJGwIKkvLNLfNBG0JAIqMD OcGMJjRH5WIgOxBGCaRaWmMrTcVXFwONYufy8FYEVhECGuMiJ0HiVyFVXoILPyLDlrAUPaPZN8YMfpHV JeROQoAN6WZkWwLVdrTJIEQqj8BSuuX9u5FTEcUu3QH8Yke2YiEbIbUOXSLQrxHR9nqxGgCHNlIv3UN1 gNYrxlEKSiYBGgZQMeSWiePNYyI4A6S3H7Ssy5AoYn D9C7Px0rLPI7BXWoQjLgBxI5CMZfOjEvVJw6RNQgHPz7CZOdKwXdXoUvZX0AAz3SKaO2ZJI9pVOaKv6S IpT1GtuWGkQfFL4KCPb= ID Date Data Source [id number] 01/13/2020 08:47:56 AM [facility] CT THORAX WITH CONTRAST [id number] RESUL TInterpreted by:Farooq Otero MDINDICATION: Follow-up extensive stage small cell lung cancer.TECHNIQUE: CT thorax with contrast. 1.25 mm thick sections were made using helical technique from lung apices through lung bases. Intravenous contrast was administered for this examination. This study was followed by CT scans of the abdomen and pelvis.Automated dose lowering techniques and/or adjustment according to patient size were utilized for this exam.COMPARISON: 09/26/2019.FINDINGS: The patient has a lytic lesion in the posterior aspect of the T12 vertebral body, with a soft tissue mass that extends posteriorly into the spinal canal. Otherwise, the visualized portion of the chest wall is unremarkable.The thyroid gland is enlarged, but has not changed. There is extensive mediastinal lymphadenopathy that has worsened dramatically since the previous examination. The lymph node masses extrinsically compress the main pulmonary artery and the right pulmonary artery. There is marked narrowing of the superior vena cava. I also see compression of the left atrial appendage. The heart size is normal, but there is a new small to moderate sized pericardial effusion.The images show no findings of pleural disease.The lungs are essentially clear.For findings below the diaphragm, please refer to the report of the concurrent CT scans of the abdomen and pelvis.IMPRESSION: 1. Enlarging lytic lesion in the posterior aspect of the T12 vertebral body, accompanied by a soft tissue mass that extends posteriorly into the spinal canal and threatens cord compression.2. Markedly increased extent of mediastinal lymphadenopathy, with mass effect on adjacent structures including significant narrowing of the superior vena cava.3. New small to moderate pericardial effusion, probably malignant.At the time of this report, Dr. 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, and the re is a plan for palliative radiation therapy.This document has been electronically signed by Farooq Otero MD on 01/13/2020 8:45 AM Name Value Range Interpretation Code Description Data Lynn rce(s) Supporting Document(s) ID Date Data Source [id number] 01/12/2020 06:55:41 PM [facility] NM BONE SCAN IMAGING WHOLE BODY [id number] AL RESULTInterpreted by:Veronique Olson MDCLINICAL INDICATION: 54-year-old female with stage IV bladder cancer.TECHNIQUE: Two hours following the intravenous injection of 23.2 mCi of Tc-99m labeled MDP, whole body and selected static images of the skeleton were obtained.COMPARISON: Relevant anatomic imaging studies available for comparison [...] these lesions have increased from the prior study.There is symmetrically increased uptake in bilateral shoulders and sternoclavicular joints consistent with degenerative joint disease. IMPRESSION: 1. Increased radiopharmaceutical uptake in the L1 vertebral body corresponding to the lytic lesion on recent CT, likely representing metastatic disease.2. 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 ABDOMEN PELVI S WITH CONTRAST [id number] 09/26/2019 11:47:13 AM FINDINGS: Heart: Small stable [...] THIS DOCUMENT HAS BEEN ELECTRONICALLY SIGNED BY SUDARSHAN HENDRICKSON MDThis document has been electronically signed by Sudarshan Hendrickson MD on 01/12/2020 2:34 PM Name Value Range Interpretation Code Description Data Lynn rce(s) Supporting Document(s) ID Date Data Source [id number] 01/14/2020 01:28:47 PM [facility] Name Value Range Interpretation Code Description Data Lynn rce(s) Supporting Document(s) Creatinine [Mass/volume] in Blood 1.4 mg/dL 0.50-0.90 [facility] ID Date Data Source [id number] 01/02/2020 01:06:47 PM [facility] Name Value Range Interpretation Code Description Data Lynn rce(s) Supporting Document(s) Leukocytes [#/volume] in Blood by Automated count 9.9 10*3/uL 4-10 [facility] Erythrocytes [#/volume] in Blood by Automated count 3.66 10*6/uL 4.1- 5.3 L [facility] Hemoglobin [Mass/volume] in Blood 12.5 g/dL 11.5-15.5 [facility] Hematocrit [Volume Fraction] of Blood by Automated count 36.5 % 3 6-45 [facility] Erythrocyte mean corpuscular volume [Entitic volume] by Auto mated count 99.7 fL 80-96 H [facility] Erythrocyte mean corpuscular hemoglobin [Entitic mass] by Automated count 34.2 pg 27-33 H [facility] Erythrocyte mean corpuscular hemoglobin concentration [Mass/volume] by Automated count 34.3 g/dL 32.0-36.0 [facility] width [Ratio] by Automated count 14.8 % 11.5-14.5 [facility] Platelets [#/volume] in Blood by Automated count 251 10*3/uL 150-400 [facility] Differential cell count method - Blood [facility] Neutrophils/100 leukocytes in Blood by Automated count 62 % [facility] Lymphocytes/100 leukocytes in Blood by Automated count 29 % [facility] Monocytes/100 leukocytes in Blood by Automated count 7 % [facility] Eosinophils/100 leukocytes in Blood by Automated count 1 % [facility] Basophils/100 leukocytes in Blood by Automated count 1 % [facility] Neutrophils [#/volume] in Blood by Automated count 6.14 10*3/uL 1.8-7 .0 [facility] Lymphocytes [#/volume] in Blood by Automated count 2.92 10*3/uL 1.2-4 .0 [facility] Monocytes [#/volume] in Blood by Automated count 0.69 10*3/uL 0-0.8 [facility] Eosinophils [#/volume] in Blood by Automated count 0.11 10*3/uL 0-0.5 [facility] Basophils [#/volume] in Blood by Automated count 0.07 10*3/uL 0-0.2 [facility] Nucleated erythrocytes/100 leukocytes [Ratio] in Blood by Automated count 0 /100{WBCs} 0-0 [facility] ID Date Data Source [id number] 01/02/2020 02:40:09 PM [facility] Name Value Range Interpretation Code Description Data Lynn rce(s) Supporting Document(s) Albumin [Mass/volume] in Serum or Plasma by Bromocresol green (BCG) dye binding method 4.4 g/dL 3.5-5.2 [facility] Bilirubin.total [Mass/volume] in Serum or Plasma 0.4 mg/dL <1.2 [facility] Calcium [Mass/volume] in Serum or Plasma 10.6 mg/dL 8.6-10.0 H [facility] Chloride [Moles/volume] in Serum or Plasma 95 mmol/L 98-107 L [facility] Creatinine [Mass/volume] in Serum or Plasma 1.60 mg/dL 0.50-0.90 H [facility] Glucose [Mass/volume] in Serum or Plasma 150 mg/dL 70-140 H [facility] Alkaline phosphatase [Enzymatic activity/volume] in Serum or Plasma 64 U/L 35-104 [facility] Potassium [Moles/volume] in Serum or Plasma 4.7 mmol/L 3.4-5.1 [facility] Protein [Mass/volume] in Serum or Plasma 7.0 g/dL 6.4-8.3 [facility] Sodium [Moles/volume] in Serum or Plasma 131 mmol/L 136-145 L [facility] Aspartate aminotransferase [Enzymatic activity/volume] in Serum or Plasma 24 U/L <32 [facility] Urea nitrogen [Mass/volume] in Serum or Plasma 22 mg/dL 6-20 H [facility] Osmolality of Serum or Plasma by calculation 279 mosm/kg 275-300 [facility] Creatinine/Urea nitrogen [Mass Ratio] in Serum or Plasma 14 [facility] Bicarbonate [Moles/volume] in Serum 25 mmol/L 22-29 [facility] Alanine aminotransferase [Enzymatic activity/volume] in Seru m or Plasma 21 U/L <33 [facility] Anion gap 3 in Serum or Plasma 11 mmol/L 8-15 [facility] Glomerular filtration rate/1.73 sq M pre dicted among non-blacks [Volume Rate/Area] in Serum or Plasma by Creatinine-based formula (MDRD) 36 mL/min/1.73m2 >60 L [facility] Glomerular filtration rate/1.73 sq M pre dicted among blacks [Volume Rate/Area] in Serum or Plasma by Creatinine-based formula (MDRD) 42 mL/min/1.73m2 >60 L [facility] ID Date Data Source [id number] 01/02/2020 02:40:09 PM [facility] Name Value Range Interpretation Code Description Data Lynn rce(s) Supporting Document(s) Thyrotropin [Units/volume] in Serum or Plasma 9.160 u[IU]/mL 0.270-4. 200 H [facility] ID Date Data Source [id number] 12/25/2019 03:33:46 PM EDT [facility] Name Value Range Interpretation Code Description Data Lynn rce(s) Supporting Document(s) Progress Note [facility] SOIWMb6zWsUUPeYi04/UAUvnMBJwv1YnIDsrBLo9AVimSZAeM3VlQCA7mX2eJHS0JBzLSfDmWoWiDBG4 [facility] [file] ICAgICAgICAgICAgICAgICAgICAgICAgICAgICAgIC AgICAgICAgICAgICAgICAgDQogICAgICAgICAgICAgICAgICAgICAgICAgICAgICAgICAgICAgICAgIC AgICAgICAgICAgICAgICAgICAgICAgICAgICAgICAgICAgICAgICAgICAgICAgICAgICAgICAgICAgDQ ogICAgICAgICAgICAgICAgICAgICAgICAgICAgICAg ICAgICAgICAgICAgICAgICAgICAgICAgICAgICAgICAgICAgICAgICAgICAgICAgICAgICAgICAgICAg ICAgICAgICAgDQogICAgICAgICAgICAgICAgICAgICAgICAgICAgICAgICAgICAgICAgICAgICAgICAg ICAgICAgICAgICAgICAgICAgICAgICAgICAgICAgIC AgICAgICAgICAgICAgICAgICAgDQogICAgICAgICAgICAgICAgICAgICAgICAgICAgICAgICAgICAgIC AgICAgICAgICAgICAgICAgICAgICAgICAgICAgICAgICAgICAgICAgICAgICAgICAgICAgICAgICAgIC AgDQogICAgICAgICAgICAgICAgICAgICAgICAgICAg ICAgICAgICAgICAgICAgICAgICAgICAgICAgICAgICAgICAgICAgICAgICAgICAgICAgICAgICAgICAg ICAgICAgICAgICAgDQogICAgICAgICAgICAgICAgICAgICAgICAgICAgICAgICAgICAgICAgICAgICAg ICAgICAgICAgICAgICAgICAgICAgICAgICAgICAgIC AgICAgICAgICAgICAgICAgICAgICAgDQogICAgICAgICAgICAgICAgICAgICAgICAgICAgICAgICAgIC AgICAgICAgICAgICAgICAgICAgICAgICAgICAgICAgICAgICAgICAgICAgICAgICAgICAgICAgICAgIC AgICAgDQogICAgICAgICAgICAgICAgICAgICAgICAg ICAgICAgICAgICAgICAgICAgICAgICAgICAgICAgICAgICAgICAgICAgICAgICAgICAgICAgICAgICAg ICAgICAgICAgICAgICAgDQogICAgICAgICAgICAgICAgICAgICAgICAgICAgICAgICAgICAgICAgICAg ICAgICAgICAgICAgICAgICAgICAgICAgICAgICAgIC GyXPNtPQIvPQOiNTSaPEBnHSNlVZJhTLHnYUa9C9yuIKBhATEsNS8wATd3Xk4+ZDvVCpZoLRO8qvDbeS 4ESO7ar9TeGRqiPDGbs7XoZPu8WR4FHTXgLSruVT3AJWfwqt8SZVTsZZMxoSYFi8aiPzPsHAF9LFQqSi gkFK3RNDGqT6ofefDhEPExVSULPS1ZBoOfA2ReoA73 IDENCj4+RYrwbhRcEthXDrR6IHRmx1TePKz3ND4MNSQuSxusj5YwMzKyGBFHXCjsOF0PJHF1BMAfHVUg Ol9LTPKeP529jbKzUQ4GWf9WCyBfLF4ler6HRmWkWRBoWpfLDab7HZplFG1BzLHsMBaVkb5auwSmbkSG u4DlimAagNHCCNQoVUIaNEogHR6mAGT4WALJSGRjpX StTM3tJW9jLOYgRTVlQpSmSNMVRQ0RAXWoXHPzxUQaZEAoCNIDEV4CDLouLYO6KRColiTblRHqCFtaSW 9QYXJlbnQgMTkgMCBSDQo+Bq1DRC2ml4FeMXbdJCDzCL3uxo4QISdOQiFcT4B8uLCaR4S5DPvfCr6GKY HnXAOyTYtwLGLUEPcsJP7STC5cxjZ6VB8XsHMaHLYw ALFxoZUqWJw6I56tyFIkEFusZF6JNLP+Antelmo+Mj6BBDPuQIBeBMUpQaPaDKPQTjMuV6IsI9GIh8ChY2Cd US73oZzifeQiHAlfLV8MPU5aFYTqQUCVIU7QiPNzaT6nwdGcXTTrLEUOGhEeD17gnPRrOCDyNSY0JCKs Nt4VUGKsP3UawbLscGewmwKuQUXlPFTRRV7VVTxydo OkzKYwlDoqUQ20zOhyHP3VOz3ZLhXuUV4chc6NaKOwEc4WLSNeLv4UCQWzSEMfCCQhUGK6RWCxHjYkIJ yyRSXsRCCpLXZ6YLFvXPDhWT5BYfBjKJVkRKW5GKUuXBNbYOTdks2SFSQzVAKwBKhtDYHgVYGbIYGcGT fnKPOwRFUzCXG6OYWsVRFkWT2QFsXtHYOcBHJ8QCEj IVVaHFCfsy4SCGWbMPUnTuCaLwMnAYZqFIFySNbyUVYxPRBcDVe7MLCjKUDbID3ZDhGbEYHaIOLbLoJd QPPoRYXxee7RNPVkKOYaTaV4UBYlTQBsPYMeYPreUGQlEQV2FfP2KEMsHUJePG8PBrDuGAYxEKB2PGPh EZJpMUSsjf5WQCOlUTAzQCT6EMPxPRVlSLSiJYtoMC PlVPT5MHUuOFNhQTYbMB8UIuBbOAFlEDNoCksrTQDbRRTujd5HFKOjEKUkXyN9OCEoXPZcAQIaBVbvIT CoLGW5XUY3TZKsFAVuFR9ELxKoSZWjFJU7DoVvGMLdIZQpjo2EKNBmTSGyJrC2SHQyJNPlZXQpHQnbFO VrXAX1EPEyYEYaBSViAB0PMyRiNQGbSAs8KlWgAYNs TAMnbc4FTWBfLUQeOWYzWSUtOPCbQTAtKCp8odUavIMySDi0QT7JF9ZoyvEbUcGTFc8Na447RROzWXAa En2MG3zfUx1dUTAsUYNHLt9AMXs2PuAiVGYpLJx0BJUbIAZePQHaCnuzMDyiGFO0KeEcT9F+IDxmYTE1 DSBoRmRnGsD3UZG3MuPwTLF4OJGiFPLqPLKpKf5c XSANCj4+BDmldJEfvJpqOUBZPsO8NrS3DCusMNTILx9B ID Date Data Source [id number] 12/25/2019 01:26:56 PM EDT [facility] Name Value Range Interpretation Code Description Data Lynn rce(s) Supporting Document(s) Progress Note [facility] WEBUOt9gTvTTPpNp87/MEKarVAQhr6JpGTtvOHa7FOcsGBQaW2NlADD0sB1tMRJ3VGiQTkHvHbTgJIF7 lbm [file] AgICAgICAgICAgICAgICAgICAgICAgICAgICAgICAgICAgICAgICAgICAgICAgICAgICAgICAgICAgIC AgICAgICAgICAgICAgICAgICAgICAgICAgICAgICAg ICAgICANCiAgICAgICAgICAgICAgICAgICAgICAgICAgICAgICAgICAgICAgICAgICAgICAgICAgICAg ICAgICAgICAgICAgICAgICAgICAgICAgICAgICAgICAgICAgICAgICAgICAgICANCiAgICAgICAgICAg ICAgICAgICAgICAgICAgICAgICAgICAgICAgICAgIC AgICAgICAgICAgICAgICAgICAgICAgICAgICAgICAgICAgICAgICAgICAgICAgICAgICAgICAgICANCi AgICAgICAgICAgICAgICAgICAgICAgICAgICAgICAgICAgICAgICAgICAgICAgICAgICAgICAgICAgIC AgICAgICAgICAgICAgICAgICAgICAgICAgICAgICAg ICAgICAgICANCiAgICAgICAgICAgICAgICAgICAgICAgICAgICAgICAgICAgICAgICAgICAgICAgICAg ICAgICAgICAgICAgICAgICAgICAgICAgICAgICAgICAgICAgICAgICAgICAgICAgICANCiAgICAgICAg ICAgICAgICAgICAgICAgICAgICAgICAgICAgICAgIC AgICAgICAgICAgICAgICAgICAgICAgICAgICAgICAgICAgICAgICAgICAgICAgICAgICAgICAgICAgIC ANCiAgICAgICAgICAgICAgICAgICAgICAgICAgICAgICAgICAgICAgICAgICAgICAgICAgICAgICAgIC AgICAgICAgICAgICAgICAgICAgICAgICAgICAgICAg ICAgICAgICAgICANCiAgICAgICAgICAgICAgICAgICAgICAgICAgICAgICAgICAgICAgICAgICAgICAg ICAgICAgICAgICAgICAgICAgICAgICAgICAgICAgICAgICAgICAgICAgICAgICAgICAgICANCiAgICAg ICAgICAgICAgICAgICAgICAgICAgICAgICAgICAgIC AgICAgICAgICAgICAgICAgICAgICAgICAgICAgICAgICAgICAgICAgICAgICAgICAgICAgICAgICAgIC AgICANCiAgICAgICAgICAgICAgICAgICAgICAgICAgICAgICAgICAgICAgICAgICAgICAgICAgICAgIC AgICAgICAgICAgICAgICAgICAgICAgICAgICAgICAg ICAgICAgICAgICAgICANCjw/iQLqC5eafRIrfhS3O0coVp6JZb1VJS5mt2ZcEXTeFSvxwdWlBlmQVzOh BQAjDqcNDig2XOuvGW8DlJZsE5CfT3SvZPobRU5OWFBqWOZueTBvUNPeZUBdErU5XSVyKFjsGX3TqXNd ZGedKFMwGXPrRaRtFMUxOJXiMNRfZXAzVOBSNH9JDl KnY1QooB64NIKBAq0+RIykocGhVecQChDaOACox6GsMDj4OM2KWLWtUhnjr1XrYfPyMJXLICcpCS8YIR Z0ZIYkOQKpLi4IOQHfF553ucNqRI3LQc8NCvVaFP7apb5MXyFfLOAnFfjCPxq5RZigHD5HhVUwDFzHyb 4rigVnfgRZl0BxzjXlcSCEX914tCGHLHJta3mbAMMV GTVdwWPaXM4kPM2kXXRgEIZtYmXdOYKQLD6PNIPmPRPjlAKnUGBuOMKFMZ9YDZajFOR7FKCdspEfjJTc SKsfEK1FMRLcqyDrRqHoHVVFHUn+Py6KAG8ak0PaKMvuZjLrJV5zlj8NBUaIAlXqB6S2xJEmA3G1CJxx Jh7ZHCXzMPDyDzcnTENVKZxtNH5OET2lstN4LZ6EaV MfCOHtMJAizMNxYKf3J13aaVKnJXxzBG3YWVP+Antelmo+Dc5HZWWvRIMpBKXmAxJuBMYDFoRfE7CgW1YXv4 CoX2TeTZ43eLckowAnARpdSA7QWN9cXADmGLRCXO2LuCKktS6cuaSzDCApJITFQcBxK47ivSSnOOCuIG OkCYBgDd2VFTIzK2GmnaFqbGutcjWfUMNtKOGOEK7E QRoaseVciHQqaZszUY68jTfvNF1XXy8INdLqMY8xpk8MaYVtGm1OFCNzWY1GNCSrDOAePVYcSDP4VTEe CcRhJJukIPMxSDVySLF4RBYrUFQeJJ3TZjFfHSSrNwVkEjYaIJEsUNXftb5WEGXlXCZsNHq5KyDqAJBo XQNtVTiuIAAaUTMoMKM5IWIqSKXnWQ5EDwVpSBKnPH ZdWRqdVAEoHPYogh0YMYNqPTWiUEOgUiWtSKOtAIIrSUkjFVZoGZM7AWtwTYZxGSHzAI0OPcEhIJUjJG w9MhDlDFXjKIFrdw3RPYWdGZCpNCqxZQHqMMMzILIhCOtqYGIvCCTlDWVuCAFmNRReAN6YAlTwAEPgWC WtToToHIPuFBWjcq5QHDVuMZTpHzEwXNHqBYTaZULu LAxkVOBiIRXqUxx5JDOnYKDaTA8QUjRmEPHkAQU4BYHcWBBpZUBacv4ZINDuDCLeEkh2QNHcACNeDZNx XQnmTQBqSCF9FoD8BOVfCZKoFO9THuDdPTInECP6ShPkXCCcTJMrhg3YNVKuYZZfKUYkSFHgINFnWROu NGteEXGbDDL4LLR3DTVjZAUiQL7YMaOlDJBdLiT2Rw SdPKXpWWEaqu4MNFNxNKIpLyR4GtDcUASkINZiNYtaLOJfXXW5KvEvFDEcKWMrGC2BXnWgINCqOtl7Wj euOACeOUTqwk5PSCMpBQQySTEtNRCsBNEkQOGkEVyeTEAsPGO1DmLdMXOvNIEtTK1WTrEnWRAhVfs2ZA KpFFDfDUFwsf1ADHTxFMBxCImuIKOnEDMlAOBrKWvy HVDaQSI2ZFCtHDXdDJXcZQ3VAyYiTNQmOpWxVUQqPHOeSYIfdq5HALLuTUSmXNWhJiTaDNCdGIGyMUei FDPkHEOvCXhzFDOdKLPlQT8KGjIeTVVmQjJbIhBfZKTaGTXdrb1GZZVkFXCdLeBqXQInYLObRNLzWJd9 jtTvfXMbBOy6UB5AU3LbfqIuShNSYy5Cz545TGBmQC BlXl2DM2tzSz6oTCGcHKEXSb8WROo0FpO6ARHpAqEsLMA0D5KcYYnnSShuZPQyTvQyBVSjTWB+IDw2MT WrGqC6EFUmOcf8J6YmY1B0NSNxXUWfGrBbNiB3YZ0kJSTXQj9+OOunkJRcsAjyZLAMPrCpTHC6WGbsXS VPRg0K ID Date Data Source [id number] 12/25/2019 12:34:42 PM EDT [facility] Name Value Range Interpretation Code Description Data Lynn rce(s) Supporting Document(s) Leukocytes [#/volume] in Blood by Automated count 9.1 10*3/uL 4-10 [facility] Erythrocytes [#/volume] in Blood by Automated count 3.77 10*6/uL 4.1- 5.3 L [facility] Hemoglobin [Mass/volume] in Blood 12.7 g/dL 11.5-15.5 [facility] Hematocrit [Volume Fraction] of Blood by Automated count 37.3 % 3 6-45 [facility] Erythrocyte mean corpuscular volume [Entitic volume] by Auto mated count 99.0 fL 80-96 H [facility] Erythrocyte mean corpuscular hemoglobin [Entitic mass] by Automated count 33.8 pg 27-33 H [facility] Erythrocyte mean corpuscular hemoglobin concentration [Mass/volume] by Automated count 34.2 g/dL 32.0-36.0 [facility] distribution width [Ratio] by Automated count 14.7 % 11.5-14.5 H [facility] Platelets [#/volume] in Blood by Automated count 225 10*3/uL 150-400 [facility] Differential cell count method - Blood [facility] Neutrophils/100 leukocytes in Blood by Automated count 63 % [facility] Lymphocytes/100 leukocytes in Blood by Automated count 29 % [facility] Monocytes/100 leukocytes in Blood by Automated count 6 % [facility] Eosinophils/100 leukocytes in Blood by Automated count 1 % [facility] Basophils/100 leukocytes in Blood by Automated count 1 % [facility] Neutrophils [#/volume] in Blood by Automated count 5.64 10*3/uL 1.8-7 .0 [facility] Lymphocytes [#/volume] in Blood by Automated count 2.64 10*3/uL 1.2-4 .0 [facility] Monocytes [#/volume] in Blood by Automated count 0.58 10*3/uL 0-0.8 [facility] Eosinophils [#/volume] in Blood by Automated count 0.13 10*3/uL 0-0.5 [facility] Basophils [#/volume] in Blood by Automated count 0.08 10*3/uL 0-0.2 [facility] Nucleated erythrocytes/100 leukocytes [Ratio] in Blood by Automated count 0 /100{WBCs} 0-0 [facility] ID Date Data Source [id number] 12/25/2019 01:40:56 PM EDT [facility] Name Value Range Interpretation Code Description Data Lynn rce(s) Supporting Document(s) Albumin [Mass/volume] in Serum or Plasma by Bromocresol green (BCG) dye binding method 4.2 g/dL 3.5-5.2 [facility] Bilirubin.total [Mass/volume] in Serum or Plasma 0.4 mg/dL <1.2 [facility] Calcium [Mass/volume] in Serum or Plasma 9.9 mg/dL 8.6-10.0 [facility] Chloride [Moles/volume] in Serum or Plasma 99 mmol/L 98-107 [facility] Creatinine [Mass/volume] in Serum or Plasma 1.59 mg/dL 0.50-0.90 H [facility] Glucose [Mass/volume] in Serum or Plasma 159 mg/dL 70-140 H [facility] Alkaline phosphatase [Enzymatic activity/volume] in Serum or Plasma 64 U/L 35-104 [facility] Potassium [Moles/volume] in Serum or Plasma 4.6 mmol/L 3.4-5.1 [facility] Protein [Mass/volume] in Serum or Plasma 6.9 g/dL 6.4-8.3 [facility] Sodium [Moles/volume] in Serum or Plasma 135 mmol/L 136-145 L [facility] Aspartate aminotransferase [Enzymatic activity/volume] in Serum or Plasma 24 U/L <32 [facility] Urea nitrogen [Mass/volume] in Serum or Plasma 22 mg/dL 6-20 H [facility] Osmolality of Serum or Plasma by calculation 287 mosm/kg 275-300 [facility] Creatinine/Urea nitrogen [Mass Ratio] in Serum or Plasma 14 [facility] Bicarbonate [Moles/volume] in Serum 22 mmol/L 22-29 [facility] Alanine aminotransferase [Enzymatic activity/volume] in Seru m or Plasma 22 U/L <33 [facility] Anion gap 3 in Serum or Plasma 14 mmol/L 8-15 [facility] Glomerular filtration rate/1.73 sq M pre dicted among non-blacks [Volume Rate/Area] in Serum or Plasma by Creatinine-based formula (MDRD) 36 mL/min/1.73m2 >60 L [facility] Glomerular filtration rate/1.73 sq M pre dicted among blacks [Volume Rate/Area] in Serum or Plasma by Creatinine-based formula (MDRD) 42 mL/min/1.73m2 >60 L [facility] ID Date Data Source [id number] 12/25/2019 01:40:56 PM EDT [facility] Name Value Range Interpretation Code Description Data Lynn rce(s) Supporting Document(s) Thyrotropin [Units/volume] in Serum or Plasma 21.060 u[IU]/mL 0.270-4 .200 H [facility] ID Date Data Source [id number] 12/04/2019 12:26:02 PM [facility] Name Value Range Interpretation Code Description Data Lynn rce(s) Supporting Document(s) Progress Note [facility] AUYMJb5nQmFJXxAg81/IUQdiRVYco2ZkVXkiVYf3AJleDSLkU7QfFLV1rU8lLIM7SRtYPlSlUqPoNFG0 lbm [file] mYOiSKSvXVTJ6yYaChBuSOLBxfT49i6flmm8Sc4gddV0JB/jWSjTP/r8NoqK/N0X0f/[employer]/ans3dw96DH [file] AgICAgICAgICAgICAgICAgICAgICAgICAgICAgICAg ICAgICAgICAgICAgICAgICAgICAgICAgICAgDQogICAgICAgICAgICAgICAgICAgICAgICAgICAgICAg ICAgICAgICAgICAgICAgICAgICAgICAgICAgICAgICAgICAgICAgICAgICAgICAgICAgICAgICAgICAg ICAgICAgICAgDQogICAgICAgICAgICAgICAgICAgIC AgICAgICAgICAgICAgICAgICAgICAgICAgICAgICAgICAgICAgICAgICAgICAgICAgICAgICAgICAgIC AgICAgICAgICAgICAgICAgICAgDQogICAgICAgICAgICAgICAgICAgICAgICAgICAgICAgICAgICAgIC AgICAgICAgICAgICAgICAgICAgICAgICAgICAgICAg ICAgICAgICAgICAgICAgICAgICAgICAgICAgICAgDQogICAgICAgICAgICAgICAgICAgICAgICAgICAg ICAgICAgICAgICAgICAgICAgICAgICAgICAgICAgICAgICAgICAgICAgICAgICAgICAgICAgICAgICAg ICAgICAgICAgICAgDQogICAgICAgICAgICAgICAgIC AgICAgICAgICAgICAgICAgICAgICAgICAgICAgICAgICAgICAgICAgICAgICAgICAgICAgICAgICAgIC AgICAgICAgICAgICAgICAgICAgICAgDQogICAgICAgICAgICAgICAgICAgICAgICAgICAgICAgICAgIC AgICAgICAgICAgICAgICAgICAgICAgICAgICAgICAg ICAgICAgICAgICAgICAgICAgICAgICAgICAgICAgICAgDQogICAgICAgICAgICAgICAgICAgICAgICAg ICAgICAgICAgICAgICAgICAgICAgICAgICAgICAgICAgICAgICAgICAgICAgICAgICAgICAgICAgICAg ICAgICAgICAgICAgICAgDQogICAgICAgICAgICAgIC AgICAgICAgICAgICAgICAgICAgICAgICAgICAgICAgICAgICAgICAgICAgICAgICAgICAgICAgICAgIC AgICAgICAgICAgICAgICAgICAgICAgICAgDQogICAgICAgICAgICAgICAgICAgICAgICAgICAgICAgIC AgICAgICAgICAgICAgICAgICAgICAgICAgICAgICAg PVOwUIDiOPAjUWVaZFXqZDDqDBKkTQAsMFUxXSZhYWCpZFUwUIj2H7psGTJcSEKjWW2tTWw4Wv7+DQoN OgXeJFF9scEfoI8TZC5pd8WjDLqeNQPvm5QdRYr7WF2VKOYjLRinUU6TJKkbjo9WHMGyBMVldURVu8me DwAgTEQ8VGYpAjlxLT9WHBTaV5earcFlYXHmFMRNEG jxQJDKPZppUAEMMRMzTTOrBxHpSSnzSL8Tt4CpkTX1LJf+Yh0RAV9zc8YlPUosQNDqSZ2mqa8FPTqJKo MyR0PgctR5MEUaHSMqBd1ZDWMzPAIqrYSsEsNdERSZGwEuC7KzlM25UNANFz2+DQplbmRvYmoNCjMyID Ids0NvLMr8YD0DAIZnZZo5uANfNIJjK3Syi4FeUy87 PRBkKexgG2CzfHMdLkMEly95pyvzFVVsFRGwCRZrJN8iUNFqGXWiGbA4FXXVKE3AYTEfJDZrwWAtWLPq FBEAKZ6TCXjkEIT6DLIalqNmqIWnRMajPG2GZOMnbnLeAaQeEUUMLNz+Es1UGA4ai0KfVKqeFtEuAO1j xi7AAUnGZdLhO7B5kEJwY2X1ZXueIp8QIAXhRGPvFw mzQVBDMCddJL9YXL4xfdK0OL5TwUWdNRVbKQRocXUzJEm5O41osFXhKInhJN5PQBZ+Antelmo+Bv4FRFTmZC BcCCMpIsUvWDHDXfHtU9WyK1YKz5FyR1RdNI13aImdfnPxHCyeKX5OFT2lCKHbESMHEY3KlUHtlI4mvy QvKIZmBLYOJsSuO63feBJeYPBqWATwUETmIv9LPAEp K0GvrgCczTjkesEpBTAbEFXDYO3TBDifudRjgIBqaMhlII42zCqsMB2MNd9PNaOpVD4ucw6KnREoAq8Q QMJuPH9TYPGeYRNdMSNqMGO5EJJzApKmRFmrSHQlTLByKOJ7RAQaWVZjLV8UTvXiKPQaGwk9LDLpOKAk TKRzwf3YTPOpFYGgKAS7XxPaKOGiESRqQLsuSTUoER UqCAE8TYZmWMLnUX8VWdTuNXYfGBD9KEWkVSWaBTVsej9PWGRdEUFcGNH1GZTyUYDdMAJdCIhqUSBkWL C7VML0PIPsRXTnOM8RDbJiZNYtJXl9CXzzSBJxNJFvlt9DKDSrMNWeJVkgHaInZJGvBSDnFDfpGTFeCG XnQTN5VCIlZGUuXE8YYpLdYZDkEUL5IWKbEQYgIDFh zh5YJPWkZXBsAqZ1SXKqGXQjUTObAHosOYFgXLBkQSP7GKOzPSQzQE6IGuPuAOVrFHCaAUDaXKUjNJEu dt9FNPAsCWMgHhK1RGXjMQLcYGBxCCqnRKOmIYY9FAR8JHGsBKMjXZ0IBeIkJMVwIVF2FRxjLNQxNPFr wc6THTOqGGDqXYnhFtQaLQLvWJJbXIeuZLBmQIF3Cr L6IBSkFHKyWC6KSkYkFLIyJnE6NWPlOTKaKEBjja2SKDVmCNIjIhiwPYNgOPThQAYeWExtQCNwHXH7NY MzKKPoVTVzFS5YIbLhBTZuYbasWIkjJHEvDRYpwu7DJUWgBRNkOYT0LFItFDJsDERhURvfCELjGMP5Mv LrLWLaIAJeJP3QCwApOJQbJng9GFyiOLBbAOOosm8L XBHdRIJpDLQ2NyRdZNVuIEVrGUttVWLmBJL5SmEuMRGxTBHxQY0DUhBdUAImHba9XItjEIJaJYFyhs0M FHJbABLwGOO7NfTjQAFpZSUeZKlhJQCwIXAsCoA0GYLhLDLaJD5DCtFoJUNsSoX0GCArGYBxXTLwix8Q ALDvGKVlLHyvIKOeYDMaZWSnKKm3upGgqSBoDIu2SR 5QS9HoadRdLjFAOi8Hp268MGAaBCAwYa2UT2avKe3gSZUbDEHAIt9VDJs5LBAeMDW3SLw0ZQH1ZGG2OB FhZTFiOTExNzZkMjUzNjM+OYv0YvM7NCe0PXCvVEJrMfPaQDWqJXN3RHO7LjQaXMF8Qs7cBFQRVh3+DQ aycDKpvJrgSXTTVaIuYMpzEKwuHFWZXl2D ID Date Data Source [id number] 12/04/2019 11:52:57 AM EDT [facility] Name Value Range Interpretation Code Description Data Lynn rce(s) Supporting Document(s) Leukocytes [#/volume] in Blood by Automated count 7.8 10*3/uL 4-10 [facility] Erythrocytes [#/volume] in Blood by Automated count 3.99 10*6/uL 4.1- 5.3 L [facility] Hemoglobin [Mass/volume] in Blood 13.6 g/dL 11.5-15.5 [facility] Hematocrit [Volume Fraction] of Blood by Automated count 40.0 % 3 6-45 [facility] Erythrocyte mean corpuscular volume [Entitic volume] b y Automated count 100.4 fL 80-96 H [facility] Erythrocyte mean corpuscular hemoglobin [Entitic mass] by Automated count 34.2 pg 27-33 H [facility] Erythrocyte mean corpuscular hemoglobin concentration [Mass/volume] by Automated count 34.0 g/dL 32.0-36.0 [facility] width [Ratio] by Automated count 14.5 % 11.5-14.5 [facility] Platelets [#/volume] in Blood by Automated count 212 10*3/uL 150-400 [facility] Differential cell count method - Blood [facility] Neutrophils/100 leukocytes in Blood by Automated count 67 % [facility] Lymphocytes/100 leukocytes in Blood by Automated count 24 % [facility] Monocytes/100 leukocytes in Blood by Automated count 6 % [facility] Eosinophils/100 leukocytes in Blood by Automated count 2 % [facility] Basophils/100 leukocytes in Blood by Automated count 1 % [facility] Neutrophils [#/volume] in Blood by Automated count 5.18 10*3/uL 1.8-7 .0 [facility] Lymphocytes [#/volume] in Blood by Automated count 1.88 10*3/uL 1.2-4 .0 [facility] Monocytes [#/volume] in Blood by Automated count 0.50 10*3/uL 0-0.8 [facility] Eosinophils [#/volume] in Blood by Automated count 0.13 10*3/uL 0-0.5 [facility] Basophils [#/volume] in Blood by Automated count 0.08 10*3/uL 0-0.2 [facility] Nucleated erythrocytes/100 leukocytes [Ratio] in Blood by Automated count 0 /100{WBCs} 0-0 [facility] ID Date Data Source [id number] 12/04/2019 12:33:03 PM EDT [facility] Name Value Range Interpretation Code Description Data Lynn rce(s) Supporting Document(s) Albumin [Mass/volume] in Serum or Plasma by Bromocresol green (BCG) dye binding method 4.3 g/dL 3.5-5.2 [facility] Bilirubin.total [Mass/volume] in Serum or Plasma 0.3 mg/dL <1.2 [facility] Calcium [Mass/volume] in Serum or Plasma 9.5 mg/dL 8.6-10.0 [facility] Chloride [Moles/volume] in Serum or Plasma 99 mmol/L 98-107 [facility] Creatinine [Mass/volume] in Serum or Plasma 1.31 mg/dL 0.50-0.90 H [facility] Glucose [Mass/volume] in Serum or Plasma 192 mg/dL 70-140 H [facility] Alkaline phosphatase [Enzymatic activity/volume] in Serum or Plasma 71 U/L 35-104 [facility] Potassium [Moles/volume] in Serum or Plasma 4.1 mmol/L 3.4-5.1 [facility] Protein [Mass/volume] in Serum or Plasma 6.8 g/dL 6.4-8.3 [facility] Sodium [Moles/volume] in Serum or Plasma 133 mmol/L 136-145 L [facility] Aspartate aminotransferase [Enzymatic activity/volume] in Serum or Plasma 21 U/L <32 [facility] Urea nitrogen [Mass/volume] in Serum or Plasma 12 mg/dL 6-20 [facility] Osmolality of Serum or Plasma by calculation 281 mosm/kg 275-300 [facility] Creatinine/Urea nitrogen [Mass Ratio] in Serum or Plasma 9 [facility] Bicarbonate [Moles/volume] in Serum 25 mmol/L 22-29 [facility] Alanine aminotransferase [Enzymatic activity/volume] in Seru m or Plasma 20 U/L <33 [facility] Anion gap 3 in Serum or Plasma 9 mmol/L 8-15 [facility] Glomerular filtration rate/1.73 sq M pre dicted among non-blacks [Volume Rate/Area] in Serum or Plasma by Creatinine-based formula (MDRD) 46 mL/min/1.73m2 >60 L [facility] Glomerular filtration rate/1.73 sq M pre dicted among blacks [Volume Rate/Area] in Serum or Plasma by Creatinine-based formula (MDRD) 53 mL/min/1.73m2 >60 L [facility] ID Date Data Source [id number] 12/04/2019 12:33:03 PM EDT [facility] Name Value Range Interpretation Code Description Data Lynn rce(s) Supporting Document(s) Thyrotropin [Units/volume] in Serum or Plasma 33.720 u[IU]/mL 0.270-4 .200 H [facility] ID Date Data Source [id number] 11/19/2019 01:19:41 PM EDT [facility] Name Value Range Interpretation Code Description Data Lynn rce(s) Supporting Document(s) Progress Note [facility] NGNZTy6zNeABJjTf95/RFEldKSVad5ItIZthMYh3ZBgmCQHnW9MpZSE1iK7iWUU6HXeIXyVcIgJlRVGk lbm [file] AgICAgICAgICAgICAgICAgICAgICAgICAgICAgICAg ICAgICAgICAgICAgICAgICAgICAgICAgICAgICAgICAgICAgICAgICAgICAgICAgICAgICAgICAgICAg XJUyYXWrMR1YUSZzSAHfAMVnPEYhITEhMLRjTMFrACDxVNGpIFHkMJDbBXGsDYQiDOKzEHYlCIIaBNUa ICAgICAgICAgICAgICAgICAgICAgICAgICAgICAgIC BiNPQqXKJhCQSxKYDfPITaSM4ARSLgONJuZMHlNTHiFJGaUZMcFQRlFFYnVVWaAEMbVTAwUERyWWFfOA AgICAgICAgICAgICAgICAgICAgICAgICAgICAgICAgICAgICAgICAgICAgICAgICAgICAgICAgICAgIA 0KICAgICAgICAgICAgICAgICAgICAgICAgICAgICAg ICAgICAgICAgICAgICAgICAgICAgICAgICAgICAgICAgICAgICAgICAgICAgICAgICAgICAgICAgICAg QTGvYMXwYPUhNQ7GJZWrIHAqENSbSSGbIZLkESDvTDJtIZHhFSUiBGTeYRMnXNEbGTTrZOLwCLCsGRBw ICAgICAgICAgICAgICAgICAgICAgICAgICAgICAgIC RbHMVzLNCzJMMyLFUnFSDmWXUmWM3NUFZiSWEhUUNaUZSnQZPvFMRfNFXyDRUeWUUqWXNeAGOlNTKgGJ AgICAgICAgICAgICAgICAgICAgICAgICAgICAgICAgICAgICAgICAgICAgICAgICAgICAgICAgICAgIC GoJV2JQWTqGWKvKMZpSCBnASMxVHIxVDOdGKUhCUDm ICAgICAgICAgICAgICAgICAgICAgICAgICAgICAgICAgICAgICAgICAgICAgICAgICAgICAgICAgICAg JVTiASRtOLSlDIWqGY8UCJNaFAEtYZNjRSDoLDLgAIBtMBOiNXSgHAIvNALpPEEhVIKjEBXiDRPeVEWw ICAgICAgICAgICAgICAgICAgICAgICAgICAgICAgIC PcGUXsCHKwZDKxYUKlXJWnUINrCLVfFW7KZQZoNFZlBZSkAIIjUOOeFMHjWFVkKCClPKKeNILdCTZfCM AgICAgICAgICAgICAgICAgICAgICAgICAgICAgICAgICAgICAgICAgICAgICAgICAgICAgICAgICAgIC DrJAJlVP4TMAMnCWTiXCLgTWPuIHCaSGFeTVCgWLBj ICAgICAgICAgICAgICAgICAgICAgICAgICAgICAgICAgICAgICAgICAgICAgICAgICAgICAgICAgICAg KLQeMZPoGTElLQPqPPQzUY8HTX15hAZav0A9QVHlYX5dmis/Gn3RSItaneHvkFTuQD7GEwNjXH4lao7E KkIjKT6bbt2IIIqBIaGtA5N5zYItUMSsQNOZYtQgY1 0yNRzqZf52ZTarAEClKhYyJXp7Cp2ZBiFbO2fuPGJjXiR7OQVtQfF6UTTkJwZ6AOSyFoKaMXtyAW0Pd7 VudCAzDQo+Az7YLT8ia5OiLBgbAzOaII5xae0AHTdHYxSjJ4ShjqV1VUJ8ZRRyYg9MAIIjCBYzgHOiHX NpMUJIOuMwM7BfzQ31KTMBFp7+DQplbmRvYmoNCjI0 DFIme9LmZPe2WY1CPGHwWLm3sIPuVEWfR9Dhd5CiWa99HIYjOrmlEQqvdOTiuWAGYU5bjMkqNFOaAPLu BL1lSm8nDLLhKZNnFzQfGMDVRS7HJQObDIWehGFiEYDrRBXVVY1PFYvlAOM8KRRfqmSakHKbUPkuQK1C YXJlbnQgMjMgMCBSDQo+Jx4KVI3nt0LrMUuuBBIhHC 8dgz9KOJgLYtRmU9I8wGBnQ6T7XImsOo0AYEZlGZDcIqRkLHJSOSxnYJ9QEQ9ingC6RC4BfVGhDTMqJE SvmRGdDIb9H97spXTmUMknSK5BJOK+Antelmo+Xj1MKEMxFCXvMCVaRkXdQUINCuCdH8EmW4UVh5DsO1LiWH 44hEnajxHwDUnwDF7DMO4jJGOrPDIVUU8ZhALwcZ2q vqRgWsNeCKXCZuLyE16aeCWmOQQiEVWyMMFgJx8QTTLuA6OyqfBqsOhizpYxLAClEQGJRE0EFTfwmxLi hNRhiYsvHJ47rPobXQ4ELl4VUyXrMK1aqd0SpMZdSw9BIGQbOe1RTXEhGMHqVTRrDMF9LPNdTiSoEEna JBOkKKVfUFQ6ZLNjLYZcBH3GGaKjFURsJfE1GbJvPG YqZDMvxc3UIGOjRAJjJpI0ACLaDPNtCWKwIKusNOPsDWWgRLO7MENyGKFoOA0JEjIcAYEyIKA7WzLqIR CtSXDbmq9JNYGiTQDiVDJ7BYAzSNUyBRJkMDpxVDIjYDX7WQCbOHDjKCAgZW7LRcYjTOPbVAizXlPcJH OdUYImdt1AOMMoFZVjGEU4DkSlHICeKMXyUYbxLUBt ZNLkAnQzTDQaDZWyPR3CTfFdLDFiAPC9YtDjRQDrDEWstk8BONSoWNQuLVq2OpRkPZPpNYQtQAgoYCNu GYQlXMUcMDIxWICkMH4OPeGdMVMgJWY4QFenSKIeUXZbzf6TSZGsCWIkRlJsIXChQMAlSBRcBAypXLWo YLAwHgn7CZYmYXMiHX5UBnZuLKZjGkW7LZjuFDOrJN Aowd2SWMHeDRTqGTV2LXSdIKRmXTUxQPkzOKNwSXG5OsNwPGShRQLpRY7RFkCfIDFuWtX0KYBlZQHlPB Mddw8VTUIxEWGvEIZ7YLFrZXJyJBZtMUqqZZCsTFS5QPHiRJLnGTRnAI8CNqJzQAEzRnc5QJGrVTRjNP Ctbe9OAYXvYDUsBxO9OMJpERZbFYAlXXyhNQCuTXY0 VmI1EUDoFDOmSG4FSlXgDFeqASAZAtg9ZUvqS1l6IXTnYq8CK2Shk8AgWcDkGEQVPVglNE3aamGgAUGd Zn0TS7tYFbk4UxIwSvV0UMNcQzVoOsUzGLWgVKhjZxV9PeYjXiJ6Cl6fEXb6BtOvGZAmSGFrWCMmGLB2 XhOjX0L4BGJxAyS8ZzXkUiKgTB8WTw8WToE9OYL6xEHuWx8AOvz1GdNCKqDvUT8CWEb= ID Date Data Source [id number] 11/17/2019 02:00:00 PM EDT [facility] Name Value Range Interpretation Code Description Data Lynn rce(s) Supporting Document(s) White Blood Count 7.0 5.0-10.0 [facility] Red Blood Count 4.13 4.00-5.40 [facility] Hemoglobin 14.4 [facility]) Platelets 208 172-450 [facility] Hematocrit 40.7 [facility]) ID Date Data Source [id number] 11/17/2019 02:00:00 PM EDT [facility] Name Value Range Interpretation Code Description Data Lynn rce(s) Supporting Document(s) Aspartate aminotransferase [Enzymatic activity/volume] in Se rum or Plasma 20 15-37 [facility] ([facility]) Albumin 3.8 3.2-5.2 [facility] Alanine aminotransferase [Enzymatic activity/volume] i n Serum or Plasma 35 30-65 [facility] Alk Phos 80 50-136 [facility] Total Bilirubin 0.5 0.0-1.0 [facility] A/G Ratio 1.0 1.00-1.93 [facility] Total Protein 7.5 6.4-8.2 [facility] ID Date Data Source [id number] 11/15/2019 08:47:36 AM EDT [facility] Name Value Range Interpretation Code Description Data Lynn rce(s) Supporting Document(s) Progress Note [facility] QKOYVb1nLvAXDkNv13/NGIapGHBsk6BcQYecUHa3WVdbUQAhO3FuIAX9fV0fRTS0BHjHPcRmJyCsWKO6 lbm [file] I+KD8cSPe+Ts1Nx0KsnlR8zxDxNGwaZMB1MY4VNMLZN1DANz== ID Date Data Source [id number] 11/15/2019 08:47:26 AM EDT [facility] Name Value Range Interpretation Code Description Data Lynn rce(s) Supporting Document(s) Progress Note [facility] QCSXLp2iEiZKVpBy36/RTTnlPSKqi1ZlUHizNIk9TAezWIFrN5JpESR2uL6bIEA5KGgDLnJrFhAaOCN2 lbm [file] //ticket [file] ICAgICAgICAgICAgICAgICAgICAgICAgICAgICAgICAgICAgICAgICAgICAgICAgICAgICAgICAgICAg ICAgICAgICAgICAgICAgICAgICAgICAgICANCiAgIC AgICAgICAgICAgICAgICAgICAgICAgICAgICAgICAgICAgICAgICAgICAgICAgICAgICAgICAgICAgIC AgICAgICAgICAgICAgICAgICAgICAgICAgICAgICAgICAgICANCiAgICAgICAgICAgICAgICAgICAgIC AgICAgICAgICAgICAgICAgICAgICAgICAgICAgICAg ICAgICAgICAgICAgICAgICAgICAgICAgICAgICAgICAgICAgICAgICAgICAgICANCiAgICAgICAgICAg ICAgICAgICAgICAgICAgICAgICAgICAgICAgICAgICAgICAgICAgICAgICAgICAgICAgICAgICAgICAg ICAgICAgICAgICAgICAgICAgICAgICAgICAgICANCi AgICAgICAgICAgICAgICAgICAgICAgICAgICAgICAgICAgICAgICAgICAgICAgICAgICAgICAgICAgIC AgICAgICAgICAgICAgICAgICAgICAgICAgICAgICAgICAgICAgICANCiAgICAgICAgICAgICAgICAgIC AgICAgICAgICAgICAgICAgICAgICAgICAgICAgICAg ICAgICAgICAgICAgICAgICAgICAgICAgICAgICAgICAgICAgICAgICAgICAgICAgICANCiAgICAgICAg ICAgICAgICAgICAgICAgICAgICAgICAgICAgICAgICAgICAgICAgICAgICAgICAgICAgICAgICAgICAg ICAgICAgICAgICAgICAgICAgICAgICAgICAgICAgIC ANCiAgICAgICAgICAgICAgICAgICAgICAgICAgICAgICAgICAgICAgICAgICAgICAgICAgICAgICAgIC AgICAgICAgICAgICAgICAgICAgICAgICAgICAgICAgICAgICAgICAgICANCiAgICAgICAgICAgICAgIC AgICAgICAgICAgICAgICAgICAgICAgICAgICAgICAg ICAgICAgICAgICAgICAgICAgICAgICAgICAgICAgICAgICAgICAgICAgICAgICAgICAgICANCiAgICAg ICAgICAgICAgICAgICAgICAgICAgICAgICAgICAgICAgICAgICAgICAgICAgICAgICAgICAgICAgICAg ICAgICAgICAgICAgICAgICAgICAgICAgICAgICAgIC AgICANCjw/vDYzX9ytjVUujuN2I7awBr1TNx2DZB4ia0GiVLJmZRhtpnNtWewEZmDrYDAeHhkRQrx7FL hzBB3VrNLzB2GlP5DqZJlvCQ6BIJOuYDAqmRTbOEDnCQCyHlK7LQApTXvyJT0HuZFxWWeaVODtDYIbCa UkOSBtYAKwZYArYZDwVIQODNHuDXFkPkWuCFxvJS9X a6AprGD8NUy+Jk6WLP2yt9OvGLqxUiFpBK2baq8DBHzONwQcR2IbviS8IKU2XKXpRz2RKEEyJDUfqMPy WTJgWXBSLjOnC6ShhQ90XBNQXr7+LFenwzAoQwnRSiN8FFEvr1QiFKt3RZ5UISLcSEr7wGKlTMQxX6Sw m3RdPi61QJMqYnvuTUjtbYXUXV3oMSnqSJLbRIGeLW 4xIq4vHWObPZSzBqC7RZPXTX2WLGUwXBDeaKTwIYHfWIHBIL4VEXarEWP0EROzijWcrSKuDHvlLI4ATT JlbnQgMzMgMCBSDQo+Cn0UXJ9gd7GmTZsjVGMsGW9dir5WSSpRPjCcE4F3wITgI4S5MRbbYs5WMMAnRQ QoIcTuMTFASOqmFW3LTS9rtmI2PH7NrKOfNGFgIZNx zXWrSZr4M59whQKmQPytVW8DGJT+Antelmo+Bm0XPLDfNKPjJWDuQvVbNAHFWiNtI8PcC2ACm3KzF2YmCT07 vRddpaUqCVwzUT7WIZ7jMJWhFUKBFW7KiLKfgX9zkeHvPzZxUUIPQnUoM98fuNCsDRBgDYLmIMHxHj6Y FTRdP3IfajUaxZsqcbHpFTFhYPXHDJ4ZOIswfcTmeG CtqSraJM33oWbyEZ3EUr2TUdXmME9vdm2WhEPtTh2EEGWtUz6BDRVtFTFjBIReHMA2IHAgIlXaGEsaFJ IySYQlOPW7RIWiFYViEF4MQzPnOKQrIxI0FVEgJTRpQFXnkd9JVMHdXIAxRKJ0BhNzPMVmCJKmAKjmMN OhBSFfLYC9FOBcWCBxWL4WQuBxRZKfTAYlKbugNPDg CGTgws6GEFMlAJWaNFA6JpKyUZFtKKIrOYlvRLHcZZM1NWNvCHIyJOImWX4RZwOzUAVhRVe7ZceqPATz TTPgcs3CPMKoNUNlUYAuDIXrOLHlWMHbVYbgURIaCBLePCQcIEEfZMUzNW1OOgIgVFPkFLR2ZfjxCRXr ZZOrgc6RLSNsSQKhAog1UPAlJOUiJVArEBmyKXNoHM S5Bli6ZCHrHCWhPT8BKtPvMZShBZI5SIEcNRErGVPrpg2KGVRhKJChQha5FGCqRDBmQRKaTVarRMMhRR V1GKAhBENbYRTzTT1BNkAnQRFaTFjjWyNdNAMkFTMlxq6FYXAtBSKlBSD4UrMrHZEmAPXeBQohJBMbYY M1Rrn8FLMtFGWeOM6EFzUsAHRmPZf4HESlUAGbEJOr lq0TDBHsEOVdOMArYiQfFSSaWGQqTMuqIINuMZMgTrL7MZGfZICfWN3UXzNfDVFyNhS1SDmxHXAbVUDw dt3FJAFqVWHlZQl4SdGrAOItMLKmBRmbOHPrSMPgDVIkBSImVLPjTW4OPdZaRGRxNkT4IJKiPGEbCKFk bi8SDKDqWLZkQsF2QoAmIGJxFXFjNDysWHLkKXWjBb Y0YOAkOJEeXM4UCbLiHXZeZfCgYSjnUBBvRVWjsd6HYQCrNZMnNcM8OOWrGDZbMWEmKYomNSOeXSRqEG d3RZFiHNCgLO4SKrSxQKAxXeNjYMmiABNoAXBoiu0XBNBuZGMxZHO8FYIoRXNsJXVdJLirNSBlYPP4JY PbQGIeWRNoFE5PNdApIPUiNtI0YZdkUIWyOVRfgn0I dEMazQccaj2MKAeXWz4TlZfyLJJ8WRyvIc9tyILnOFMfMGGMSu9EqgRdBZVuNHRQFQfjZDJeXFg8XCXq SoT2IDVjOOwnTNEeDUR0OZU9JEF3DTZpYgM3JzD3SPWaF7OzRJW4IGPnWMY6JiBuTcV0JoJ1LJhzIRIr NDc+YL5rANr+Vy2Qe4LltiR9otAjJTjbLTggLK1FFCMNU8PMVe== ID Date Data Source [id number] 11/13/2019 02:07:22 PM EDT [facility] XR CHEST FRONTAL ONLY [id number] RESULTI nterpreted by:Edwardo Montaño MDINDICATION: 54-year-old female, concern for pneumonia.TECHNIQUE: Frontal chest radiograph in the PA view, 11/13/2019 1:20 PM.COMPARISON: CT thorax dated 09/26/2019FINDINGS: The chest wall is normal in appearance.The mediastinal contours are normal.There is no evidence of pleural disease.The lungs are clear.IMPRESSION: No acute cardiopulmonary disease.This document has been electronically signed by Kavin Monte MD on 11/13/2019 2:05 PM Name Value Range Interpretation Code Description Data Lynn rce(s) Supporting Document(s) ID Date Data Source [id number] 11/13/2019 11:44:07 AM EDT [facility] Name Value Range Interpretation Code Description Data Lynn rce(s) Supporting Document(s) Leukocytes [#/volume] in Blood by Automated count 5.3 10*3/uL 4-10 [facility] Erythrocytes [#/volume] in Blood by Automated count 3.77 10*6/uL 4.1- 5.3 L [facility] Hemoglobin [Mass/volume] in Blood 13.0 g/dL 11.5-15.5 [facility] Hematocrit [Volume Fraction] of Blood by Automated count 37.9 % 3 6-45 [facility] Erythrocyte mean corpuscular volume [Entitic volume] b y Automated count 100.5 fL 80-96 H [facility] Erythrocyte mean corpuscular hemoglobin [Entitic mass] by Automated count 34.3 pg 27-33 H [facility] Erythrocyte mean corpuscular hemoglobin concentration [Mass/volume] by Automated count 34.2 g/dL 32.0-36.0 [facility] Erythrocyte distribution width [Ratio] by Automated count 14.1 % 11.5-14.5 [facility] Platelets [#/volume] in Blood by Automated count 161 10*3/uL 150-400 [facility] Differential cell count method - Blood [facility] Neutrophils/100 leukocytes in Blood by Automated count 54 % [facility] Lymphocytes/100 leukocytes in Blood by Automated count 35 % [facility] Monocytes/100 leukocytes in Blood by Automated count 8 % [facility] Eosinophils/100 leukocytes in Blood by Automated count 2 % [facility] Basophils/100 leukocytes in Blood by Automated count 1 % [facility] Neutrophils [#/volume] in Blood by Automated count 2.84 10*3/uL 1.8-7 .0 [facility] Lymphocytes [#/volume] in Blood by Automated count 1.88 10*3/uL 1.2-4 .0 [facility] Monocytes [#/volume] in Blood by Automated count 0.43 10*3/uL 0-0.8 [facility] Eosinophils [#/volume] in Blood by Automated count 0.10 10*3/uL 0-0.5 [facility] Basophils [#/volume] in Blood by Automated count 0.05 10*3/uL 0-0.2 [facility] Nucleated erythrocytes/100 leukocytes [Ratio] in Blood by Automated count 0 /100{WBCs} 0-0 [facility] ID Date Data Source [id number] 11/13/2019 12:29:07 PM EDT [facility] Name Value Range Interpretation Code Description Data Lynn rce(s) Supporting Document(s) Albumin [Mass/volume] in Serum or Plasma by Bromocresol green (BCG) dye binding method 4.0 g/dL 3.5-5.2 [facility] al Bilirubin.total [Mass/volume] in Serum or Plasma 0.2 mg/dL <1.2 [facility] Calcium [Mass/volume] in Serum or Plasma 9.1 mg/dL 8.6-10.0 [facility] Chloride [Moles/volume] in Serum or Plasma 98 mmol/L 98-107 [facility] Creatinine [Mass/volume] in Serum or Plasma 1.33 mg/dL 0.50-0.90 H [facility] Glucose [Mass/volume] in Serum or Plasma 215 mg/dL 70-140 H [facility] Alkaline phosphatase [Enzymatic activity/volume] in Serum or Plasma 70 U/L 35-104 [facility] Potassium [Moles/volume] in Serum or Plasma 4.2 mmol/L 3.4-5.1 [facility] Protein [Mass/volume] in Serum or Plasma 6.9 g/dL 6.4-8.3 [facility] Sodium [Moles/volume] in Serum or Plasma 133 mmol/L 136-145 L [facility] Aspartate aminotransferase [Enzymatic activity/volume] in Serum or Plasma 21 U/L <32 [facility] Urea nitrogen [Mass/volume] in Serum or Plasma 13 mg/dL 6-20 [facility] Osmolality of Serum or Plasma by calculation 283 mosm/kg 275-300 [facility] Creatinine/Urea nitrogen [Mass Ratio] in Serum or Plasma 9 [facility] Bicarbonate [Moles/volume] in Serum 25 mmol/L 22-29 [facility] Alanine aminotransferase [Enzymatic activity/volume] in Seru m or Plasma 21 U/L <33 [facility] Anion gap 3 in Serum or Plasma 11 mmol/L 8-15 [facility] Glomerular filtration rate/1.73 sq M pre dicted among non-blacks [Volume Rate/Area] in Serum or Plasma by Creatinine-based formula (MDRD) 45 mL/min/1.73m2 >60 L [facility] Glomerular filtration rate/1.73 sq M pre dicted among blacks [Volume Rate/Area] in Serum or Plasma by Creatinine-based formula (MDRD) 52 mL/min/1.73m2 >60 L [facility] ID Date Data Source [id number] [facility] Value Range Interpretation Code Description Data Lynn rce(s) Supporting Document(s) Thyrotropin [Units/volume] in Serum or Plasma 34.900 u[IU]/mL 0.270-4 .200 H [facility] ID Date Data Source [id number] 10/28/2019 09:02:08 AM [facility] Name Value Range Interpretation Code Description Data Lynn rce(s) Supporting Document(s) Progress Note [facility] [id number] lbm [file] ID Date Data Source [id number] 10/23/2019 12:14:03 PM T [facility] Name Value Range Interpretation Code Description Data Lynn rce(s) Supporting Document(s) Leukocytes [#/volume] in Blood by Automated count 10.7 10*3/uL 4-10 H [facility] Erythrocytes [#/volume] in Blood by Automated count 3.96 10*6/uL 4.1- 5.3 L [facility] Hemoglobin [Mass/volume] in Blood 13.9 g/dL 11.5-15.5 [facility] Hematocrit [Volume Fraction] of Blood by Automated count 40.5 % 3 6-45 [facility] Erythrocyte mean corpuscular volume [Entitic volume] b y Automated count 102.4 fL 80-96 H [facility] Erythrocyte mean corpuscular hemoglobin [Entitic mass] by Automated count 35.0 pg 27-33 H [facility] Erythrocyte mean corpuscular hemoglobin concentration [Mass/volume] by Automated count 34.2 g/dL 32.0-36.[facility] width [Ratio] by Automated count 14.5 % 11.5-14.5 [facility] Platelets [#/volume] in Blood by Automated count 201 10*3/uL 150-400 [facility] Differential cell count method - Blood [facility] Neutrophils/100 leukocytes in Blood by Automated count 69 % [facility] Lymphocytes/100 leukocytes in Blood by Automated count 21 % [facility] Monocytes/100 leukocytes in Blood by Automated count 7 % [facility] Eosinophils/100 leukocytes in Blood by Automated count 2 % [facility] Basophils/100 leukocytes in Blood by Automated count 1 % [facility] Neutrophils [#/volume] in Blood by Automated count 7.35 10*3/uL 1.8-7 .0 H [facility] Lymphocytes [#/volume] in Blood by Automated count 2.28 10*3/uL 1.2-4 .0 [facility] Monocytes [#/volume] in Blood by Automated count 0.75 10*3/uL 0-0.8 [facility] Eosinophils [#/volume] in Blood by Automated count 0.17 10*3/uL 0-0.5 [facility] Basophils [#/volume] in Blood by Automated count 0.15 10*3/uL 0-0.2 [facility] Nucleated erythrocytes/100 leukocytes [Ratio] in Blood by Automated count 0 /100{WBCs} 0-0 [facility] ID Date Data Source [id number] 10/23/2019 12:56:29 PM EDT [facility] Name Value Range Interpretation Code Description Data Lynn rce(s) Supporting Document(s) Albumin [Mass/volume] in Serum or Plasma by Bromocresol green (BCG) dye binding method 4.3 g/dL 3.5-5.2 [facility] Bilirubin.total [Mass/volume] in Serum or Plasma 0.2 mg/dL <1.2 [facility] Calcium [Mass/volume] in Serum or Plasma 9.5 mg/dL 8.6-10.0 [facility] Chloride [Moles/volume] in Serum or Plasma 98 mmol/L 98-107 [facility] Creatinine [Mass/volume] in Serum or Plasma 1.17 mg/dL 0.50-0.90 H [facility] Glucose [Mass/volume] in Serum or Plasma 289 mg/dL 70-140 [facility] Alkaline phosphatase [Enzymatic activity/volume] in Serum or Plasma 86 U/L 35-104 [facility] Potassium [Moles/volume] in Serum or Plasma 4.5 mmol/L 3.4-5.1 [facility] Protein [Mass/volume] in Serum or Plasma 7.3 g/dL 6.4-8.3 [facility] Sodium [Moles/volume] in Serum or Plasma 130 mmol/L 136-145 L [facility] Aspartate aminotransferase [Enzymatic activity/volume] in Serum or Plasma 18 U/L <32 [facility] Urea nitrogen [Mass/volume] in Serum or Plasma 31 mg/dL 6-20 H [facility] Osmolality of Serum or Plasma by calculation 287 mosm/kg 275-300 [facility] Creatinine/Urea nitrogen [Mass Ratio] in Serum or Plasma 27 [facility] Bicarbonate [Moles/volume] in Serum 22 mmol/L 22-29 [facility] Alanine aminotransferase [Enzymatic activity/volume] in Seru m or Plasma 26 U/L <33 [facility] Anion gap 3 in Serum or Plasma 10 mmol/L 8-15 [facility] Glomerular filtration rate/1.73 sq M pre dicted among non-blacks [Volume Rate/Area] in Serum or Plasma by Creatinine-based formula (MDRD) 53 mL/min/1.73m2 >60 L [facility] Glomerular filtration rate/1.73 sq M pre dicted among blacks [Volume Rate/Area] in Serum or Plasma by Creatinine-based formula (MDRD) 61 mL/min/1.73m2 >60 [facility] ID Date Data Source [id number] [facility] Value Range Interpretation Code Description Data Lynn rce(s) Supporting Document(s) Thyrotropin [Units/volume] in Serum or Plasma 22.700 u[IU]/mL 0.270-4 .200 H [facility] ID Date Data Source [id number] 10/21/2019 11:38:53 AM [facility] Name Value Range Interpretation Code Description Data Lynn rce(s) Supporting Document(s) Progress Note [facility] NRAQSr1lIjGBMuHu68/EPDltXNYbs3ZxMPvrEKs8OYttAXEmI0OwKLK4gS3vTWF5GXwNQqRxDjMdRWZ5 lbm [file] HaPyRB5WEh5WJqP4EJB9cTLqCy4ESsUiJeHLHtOrVW7CJFh= ID Date Data Source [id number] 10/16/2019 09:36:00 AM EDT [facility] Name Value Range Interpretation Code Description Data Lynn rce(s) Supporting Document(s) Progress Note [facility] HXPQGc3xYlGLQxHa36/TJZjnJYBbe1RtJYihZDu0ZRahJOGzZ4BcMIG4oW2kLZO7UYnJBxLxSkCkCZIx lbm [file] NjYwYTIzOWY+PY5pISp+Hs0Iy8DwaqS7phAhWVvaEECrQm2MKZPXF9OCSt== ID Date Data Source [id number] 10/15/2019 05:19:44 PM EDT [facility] Name Value Range Interpretation Code Description Data Lynn rce(s) Supporting Document(s) Progress Note [facility] LMDZEj2jQqWRGyFl05/VDHvjYOFaj6UnAVymYTu0QDoxDQMpM9AgBKW7dK4zOCN6TZeMSaOzNgBlYNA3 lbm [file] 9GDQo= ID Date Data Source [id number] 10/08/2019 06:10:48 PM EDT [facility] Name Value Range Interpretation Code Description Data Lynn rce(s) Supporting Document(s) Progress Note [facility] JPCDZy8dVqRXAmNm85/BMJklYLCuy1MaZXhwCRp2YUwrHXOtU7QcVTV8tN9tMTK9TPnZPpIdZpMrOCBz lbm [file] JESSI+RTqqFRufeUg8qLYiKLFaSx1GCYTjRHEmXIBfEW AgICAgICAgICAgICAgICAgICAgICAgICAgICAgICAgICAgICAgICAgICAgICAgICAgICAgICAgICAgIC ZhQAEvQQZpUAVuQSQmODKqIPUcRVXdFLSgQVRqBR5LSCXkYQOyAETaKMIkESHyNBSmHCItPTHyYPKoYX AgICAgICAgICAgICAgICAgICAgICAgICAgICAgICAg HAGcUBKfRHUpGDRzFMIeWTCbVYDpLNGzWIBfKXCfRAWfYIYyRIQyVM5CWUPrWSHiEINuUYBnQDUcGLUz ICAgICAgICAgICAgICAgICAgICAgICAgICAgICAgICAgICAgICAgICAgICAgICAgICAgICAgICAgICAg QOGxDDRjCZSbXUObXKXjCKSnJIIfQJ4NDCIjKHGfKL AgICAgICAgICAgICAgICAgICAgICAgICAgICAgICAgICAgICAgICAgICAgICAgICAgICAgICAgICAgIC CsQAHySDKsURPlWVTbNGTcOGAsNWJhFMPeENGiOQBtIT2VTQOxBKOvLGLhUABiXCDpSGFlRUBrNLQyAH AgICAgICAgICAgICAgICAgICAgICAgICAgICAgICAg LTPtVBExUNLtGMIwMWDyQGTiJAYvYGGiVLElFBYvJLUqOQJdOJMlGNLyWM0LNQEgJXPbVTMxJJNbXFNj ICAgICAgICAgICAgICAgICAgICAgICAgICAgICAgICAgICAgICAgICAgICAgICAgICAgICAgICAgICAg LPVdBWPuTLVeOYXpJRPjAGKyDOZqWQTpTR4EOYCvGW AgICAgICAgICAgICAgICAgICAgICAgICAgICAgICAgICAgICAgICAgICAgICAgICAgICAgICAgICAgIC WuDALqVIRzSOBaDMYhBCXnMJLjRYTjXBCrHFRpWTUpYUDrKJ0FITCaRHDcVGCdCESvLVMjZQRePMUqTL AgICAgICAgICAgICAgICAgICAgICAgICAgICAgICAg XTLeJWLqKWGsERZvCRBrYBEwMMDsIPCvPMLgJLVcMZXvNMOjVQBfQSAcQFRwFA1DHYStLNQfJGGfUABu ICAgICAgICAgICAgICAgICAgICAgICAgICAgICAgICAgICAgICAgICAgICAgICAgICAgICAgICAgICAg VSLcERYvEJTeCXTkFPEnTPUgZOGrHMSeFPNuZO3RPQ AgICAgICAgICAgICAgICAgICAgICAgICAgICAgICAgICAgICAgICAgICAgICAgICAgICAgICAgICAgIC UxLUTeEDYnGKXgQGJnPNQkGFXwWSArVFIxGBNaGHUbKDVeHAKfUN0TDA56jIVvz8H3DKTgNG1mveh/Pg 7NBLrnjtUddXRvRB3GSoTjTO4qev9HFtGgVR7cci9G FUfAAxDrA9Z0uRScLMToIYFCKvYdX65rAQezKp65ZYhuAPZzTkQkTRh0Rp0JPkPpS1afTVRvFaN2MMGa DqQ0NREnOtOeFJBiZPMrIE5JTAXiS109ouAkEg9MBx9YWzNqHM5ttd5UIyojYRJdBecUUjc1OQapDS9N fLKemSDjRCCpPHHVRwZiA9xqe5ViCymjPLPNQCinLX 8Vi0AqhBMhFDo+Mx8WXB2vq0OyJPlsMZIfCR5hpe0JIMyYZbGxM3IwoElsIAXrv6hdQTUsZK6whQEcIR D4QZclwY4lZeIDnYhfTFOtILSnNK0nRh9wSWPmKET1JnLgUUIRGD0PMTXyEJWruJBzMTPjTFOHKU9TNQ zyVQR4GMTzudVmuQSlEIahXA1HVMIsoqLwLnwnDXQU DQo+Bs7RQC7kc9EpKFj1TUKtg4QpNSj0YP2EHYPwAUgrKPUgGQ2ji1GnE2R3JwQ3rFZaU8nebnpcS7Pt bePlpxBnDYQlRROpYV5HMI4QUL8ELHJeEDafMA5MZVT4BAs9XuP3KNVeSYWoFIT2ZP5rLXkeKD2JMSf3 U3SdQ2KCOJIiNFZFBYMpuNL0IWMXNm8ND6YNYrhEMD IEXq7EYkJhE5UEJ6cNM74UYT9YTND+PiANCj4+YZblewAnCibUJrY4UFHmd6SdOAh7TY6XTVFiQUsuGH 7JPZDyzW4hHTpqFB8ZKeOmHQRkVUVZCsXsX29pfDEzWFo5B8ItLiDgNISnDqfkGZRiFIovQhTwMSOyFv BdDQogID4+ID4+ZHwpJG3ZBMeyntUvEOAbZo6GAYSs CGZjGJ0aXDUwPEKwU0W1pCldGVWQMtBgD4wmjjmtAT7kAOYpZ401hHujjuEaQQE3HPKfEi9XKWFjSZK2 RVFnqGHpNaWaPLLFHEffQE0DbVEwMUR0wB4pNVlwKPEeKKIaF8uSYvXtpFdxLQ61dCxzefGtdPMkMFm+ Rl6WLL8br2KyXUi8rgMlQAosCCCwVUixTTWgMYWsWF ByXAN3KQK3HHCZMqEyBBHiFGMwPOxbOJEuSZOjcn5VKCMyPWUyONPpLeMdFJUlONZeQHhzBQEqCRG9Cl LpJMHqNELnCJ8JIcQsFYIbOLFyRRtqPPBhSSLlcy4ZTGWsKOEtUvV3MpEqVEMjKGLwGTelDIDzRYV0NM y8TCLcKBBwDM2EMuDaKVTqWRNeYOKpIMGlRXJstr6D FEGpGHJwSdE3EvBrYWArXDCqYJnxUEWcVHI9Gai9YKTnAQUeDZ7OLmLzEVRgIEx0JBYuEJIdRXUbsk1Q UVXjQCGgQVM1HWScIKDdWJFuTAzzEPOaGUZwJRK0FYKtZQJaDG5DGhVwUWUvNPWbMICrSBNbTEObdr1L YLJtAEJeYHW3TUVwKLHnDSJvMCxyOERbCWTaIEP6PL ZgRNSgAH7FUhFyYJWcVTK6CQFgDROoHWEqow7BWZXuJJMcUCzyVZGlBEWyJPEmJVuiCTHkGXXbOkG7AP XsCFJmFI3EJfJxZWBySqB9RAnzINLfJBWakk7FGLGlDGWmKhd3OIEbUSXqYEKiQNzhDMYxUJY3OJE5US IdGZZcPB4OZyDfJCKvZaSdUZMvHUBrDEEphz4HTVKt ZCCcAJFsWTCqVUMgUJPwEFfsBQOmOGU7LoS2MEYuFCXuRV6CNqYwQYDkXtZ9MDWqXIPsROIwme7CTJPd PSAhCZcvRHPiFUPrMVLnSXonKDFcNSD7YkvzPEHpKLYfYZ2MXnEtUGBkIoh8RDBmOOMtFRTvnn8ZAODd NNHuLxq6FaUaANOsGGJlQBx0zgVbxHUiCDc0WI4FD5 OmfdLzSrEZHq5Qs017NEO6LPAkAv1RI6ovOq2rLDUvWPFPGv4KBMz9WXUbYGA0T8TrBEUnKwslMOn7Hm J0AUOfJgGdSXI6CFP+TJe5YYQ3STguEXQuKdTeTOX6DyrwEmd5CCLtYyQhVzZ9DY8lCQFPYy9+DQpzdG OzqLozWMWEGiM7ZIY9RSblANKNQj8Q ID Date Data Source [id number] 10/02/2019 02:41:44 PM EDT [facility] Name Value Range Interpretation Code Description Data Lynn rce(s) Supporting Document(s) Progress Note [facility] IFNSAg4dHsWSRyUb61/NQHsgGESah1KiVPxhQKo3CPsxUUPkQ6PzDSE3wA8oKJL0UUpAFvMpMyAkJTW4 lbm [file] SvK4ClFsUxDJQ7LlOvTX2GVq1IEvN3QOC8cHKxZo2CQMpvMLYKVzAsLZ9MDIu= ID Date Data Source [id number] 10/02/2019 12:26:28 PM EDT [facility] Name Value Range Interpretation Code Description Data Lynn rce(s) Supporting Document(s) Progress Note [facility] LZKJAm6zAcXDVkDd88/DZBwmRPHbr4FdHGcbMMs7CMgyWPXuJ7FzJFC6rL3qVYT1NWdHQqPaGrAkQHV5 lbm KbBxoZCsXtZMEuHzoLKrIuBMwtCpjtyFKmDQ6PvUU7LEGjJ24hTAHzPCMcA6QwKQTlGBB+Ca3RMOVfuN EwLK1ILxeU9S1iCbKJLn6/6w9EOFhvFCtGwkrUkzUXXO2nxA2d53UJiw0FMAnfgLcV0B1wqjPS56jXcj idMtyulBw6YmRUeBWb3L371DdX/ghV9VMCjjhF/Hf/ DxQ57bnP/BzXYfaoxS6zk/0JvdJcmWkKCmos8W2T++BV2duJgtrW5RMR/zK/oYMD0gIoVdgZ/Yu1/SRN 68ZzCXeUn6PUqJDzxVtKvc3uQtMEx8Xpg/rDD6L/i/wCXs82islzijek1m6nPHFTB8Hh6dB1kFlmRWzG dKfat4w51XnfJim2iVdRPMzQbpDVgLQl63bRK66Sh7 cjp0h37PTRKkCCJt01KMeB7T5ykeUHLyl10STAbOZaOqmOg1aWqY+Ad2Nmpm26u+pFcMKY3tbFKqG2Nn E88EHc7EEeaDm7kyKHhvL5cDBxZelSgV6xxjqmZQxJs3/dKzmcUeLn0YYkF+SdeCmL5x9adyHQcSqSim E9yyYUgSrl8Ld0KCb+hxWoU8UJsoDX58B3bo25wTdy dPVytqURlIVOV3ziY6d0NzkYWVk8u8yaXrJ0VCJOwnho4b7R/Evelin/nDQ/6JmJh8HgzIeSrR2kEQU6bvm YVX3QincKjlfirjX0qc62X/CQLb5NaY8xHb1KtGV+VblvI3K/2tAqv1zEZcMuya34ycXzvqvP2lQcBn/ sDhREYrnl1TFswBz8GD0EvQeBwpJyGVwinsATZg7R7 SYrRhN9NazhOJwEn4yJMEJ06UFKjdXP0jrED+eO9ZS0TGogm9/d6KnTYtyN96OnE5aGe267W2zmjizYd zRldTwa+Abdiel+s1iO8TC+JkZmuQ41jP/o5Z+nzXc+hcR23A9sroOot6TKpejWh3eFpeDZhaR5orpWtc/r [file] ZrhrR0scFmRWwnQXbyWJ5GOQNXP9IQNh== ID Date Data Source [id number] 10/02/2019 12:01:27 PM T [facility] Name Value Range Interpretation Code Description Data Lynn rce(s) Supporting Document(s) Leukocytes [#/volume] in Blood by Automated count 7.4 10*3/uL 4-10 [facility] Erythrocytes [#/volume] in Blood by Automated count 3.66 10*6/uL 4.1- 5.3 L [facility] Hemoglobin [Mass/volume] in Blood 12.9 g/dL 11.5-15.5 [facility] Hematocrit [Volume Fraction] of Blood by Automated count 38.3 % 3 6-45 [facility] Erythrocyte mean corpuscular volume [Entitic volume] b y Automated count 104.6 fL 80-96 H [facility] Erythrocyte mean corpuscular hemoglobin [Entitic mass] by Automated count 35.2 pg 27-33 H [facility] Erythrocyte mean corpuscular hemoglobin concentration [Mass/volume] by Automated count 33.7 g/dL 32.0-36.0 [facility] width [Ratio] by Automated count 15.0 % 11.5-14.5 H [facility] Platelets [#/volume] in Blood by Automated count 193 10*3/uL 150-400 [facility] Differential cell count method - Blood [facility] Neutrophils/100 leukocytes in Blood by Automated count 58 % [facility] Lymphocytes/100 leukocytes in Blood by Automated count 32 % [facility] Monocytes/100 leukocytes in Blood by Automated count 7 % [facility] Eosinophils/100 leukocytes in Blood by Automated count 2 % [facility] Basophils/100 leukocytes in Blood by Automated count 1 % [facility] Neutrophils [#/volume] in Blood by Automated count 4.30 10*3/uL 1.8-7 .0 [facility] Lymphocytes [#/volume] in Blood by Automated count 2.37 10*3/uL 1.2-4 .0 [facility] Monocytes [#/volume] in Blood by Automated count 0.49 10*3/uL 0-0.8 [facility] Eosinophils [#/volume] in Blood by Automated count 0.18 10*3/uL 0-0.5 [facility] Basophils [#/volume] in Blood by Automated count 0.05 10*3/uL 0-0.2 [facility] Nucleated erythrocytes/100 leukocytes [Ratio] in Blood by Automated count 0 /100{WBCs} 0-0 [facility] ID Date Data Source [id number] 10/02/2019 12:42:24 PM EDT [facility] Name Value Range Interpretation Code Description Data Lynn rce(s) Supporting Document(s) Albumin [Mass/volume] in Serum or Plasma by Bromocresol green (BCG) dye binding method 4.4 g/dL 3.5-5.2 [facility] Bilirubin.total [Mass/volume] in Serum or Plasma 0.2 mg/dL <1.2 [facility] Calcium [Mass/volume] in Serum or Plasma 10.1 mg/dL 8.6-10.0 H [facility] Chloride [Moles/volume] in Serum or Plasma 98 mmol/L 98-107 [facility] Creatinine [Mass/volume] in Serum or Plasma 1.21 mg/dL 0.50-0.90 H [facility] Glucose [Mass/volume] in Serum or Plasma 223 mg/dL 70-140 H [facility] Alkaline phosphatase [Enzymatic activity/volume] in Serum or Plasma 77 U/L 35-104 [facility] Potassium [Moles/volume] in Serum or Plasma 4.4 mmol/L 3.4-5.1 [facility] Protein [Mass/volume] in Serum or Plasma 7.8 g/dL 6.4-8.3 [facility] Sodium [Moles/volume] in Serum or Plasma 137 mmol/L 136-145 [facility] Aspartate aminotransferase [Enzymatic activity/volume] in Serum or Plasma 24 U/L <32 [facility] Urea nitrogen [Mass/volume] in Serum or Plasma 16 mg/dL 6-20 [facility] Osmolality of Serum or Plasma by calculation 291 mosm/kg 275-300 [facility] Creatinine/Urea nitrogen [Mass Ratio] in Serum or Plasma 13 [facility] Bicarbonate [Moles/volume] in Serum 26 mmol/L 22-29 [facility] Alanine aminotransferase [Enzymatic activity/volume] in Seru m or Plasma 19 U/L <33 [facility] Anion gap 3 in Serum or Plasma 13 mmol/L 8-15 [facility] Glomerular filtration rate/1.73 sq M pre dicted among non-blacks [Volume Rate/Area] in Serum or Plasma by Creatinine-based formula (MDRD) 51 mL/min/1.73m2 >60 L [facility] Glomerular filtration rate/1.73 sq M pre dicted among blacks [Volume Rate/Area] in Serum or Plasma by Creatinine-based formula (MDRD) 59 mL/min/1.73m2 >60 L [facility] ID Date Data Source [id number] 10/02/2019 12:42:24 PM EDT [facility] Name Value Range Interpretation Code Description Data Lynn rce(s) Supporting Document(s) Thyrotropin [Units/volume] in Serum or Plasma 62.000 u[IU]/mL 0.270-4 .200 H [facility] ID Date Data Source [id number] 09/30/2019 04:44:46 PM EDT [facility] CT THORAX WITH CONTRAST [id number] RESUL TInterpreted by:Jose Guadalupe Arizmendi MDCLINICAL INDICATION: Interval follow-up of extensive stage small cell lung cancer.TECHNIQUE: Helical axial images of the chest, abdomen and pelvis were obtained and displayed at 5 and 1.25 mm intervals. Automated dose lowering techniques and/or adjustment according to patient size were utilized for this exam. Intravenous contrast was administered. Oral contrast was given. COMPARISON: CT abdomen and pelvis dated 08/14/2019, 6 05/16/2019; PET/CT dated 06/16/2019.FINDINGS:Neck base: Redemonstrated enlarged t hyroid gland.Mediastinum: Redemonstrated mildly enhancing soft tissue in the precarinal/paratracheal, subcarinal location. Subcarinal mass measures approximately 3.5 x 30 cm, previously 3.1 x 2.4 cm. Now also there is punctate focus of calcification seen within. Tiny precarinal nodes, appearance unchanged. Also, subcentimeter nodes also seen in the parasagittal location at the gastroesophageal junction. The heart is stable in size without evidence of pericardial effusion. The aorta and the great vessels origins are relatively stable in appearance with homogeneous opacification.Axilla: Subcentimeter benign axillary lymph nodes are seen bilaterally.Lung: Subtle pleural nodularity seen at the apical posterior aspect of the upper lobes measuring approximately 3 mm, seen on axial image 55. Subtle linear appearing nodularity in the vicinity, likely atelectasis. Minor scarring/atelectatic seen in the left upper lobe. Scattered foci of emphysematous changes are seen in the lingula and the middle lobe. The visualized lung bases are otherwise clear. No large pleural effusion is identified. Trace coronary calcifications are partially visualized. Liver: Grossly normal in size, contour, and attenuation. No focal lesions are identified.Gallbladder: No radiopaque gallstones are identified.Bile ducts: There is no evidence of intrahepatic or extrahepatic biliary dilation.Pancreas: No mass is seen. There is no ductal dilatation. Stable mild fatty involution is present.Spleen: The spleen is at the upper limit of normal size and is normal in attenuation. No focal lesions are identified.Adrenals: There is mild nodular thickening of the left lateral adrenal limb, slightly more conspicuous in the interval. The right adrenal gland is normal in size and morphology..Kidneys: Renal enhancement and excretion is normal and symmetric bilaterally. No obstructing calculi or evidence of hydronephrosis in either kidney. Stable appearing nodular calcification adjacent the hilum at the left midpole is favored to represent vascular calcification. No focal lesions are identified. Mild bilateral perinephric stranding is noted, similar to prior..Stomach and bowel: Visualized bowel loops are nondilated. No evidence of acute appendicitis is seen. Scattered colonic diverticula are present, without evidence diverticulitis. There is redemonstrated mild perirenal tissue thickening, slightly less conspicuous in the interval.Lymph nodes: Stable mildly prominent periaortic station lymph nodes. The largest of these is again seen in the left periaortic station at the L1-L2 level, measuring up to 1.2 cm, unchanged. Lower paraesophageal lymph nodes are more conspicuous in the interval, though not enlarged by size criteria. Subcentimeter precaval, celiac axis lymph nodes are also seen.Bladder: No bladder wall thickening or radiopaque calculi are seen.Reproductive organs: Stable uterus and adnexal ovarian tissue. Indistinctness of the external genitalia, partially covered..Vessels: The abdominal aorta is normal in course and caliber. Catheter atherosclerotic calcifications are present.Abdominal wall: A fat-containing periumbilical hernia is redemonstrated..Free fluid/air: No evidence of free fluid or pneumoperitoneum.Bones: Accounting for 12 pair of ribs, last rib-bearing vertebra as T12. Accounting for last rib-bearing vertebra as T12, Small rounded sclerotic focus seen at T8 vertebra. Blastic osseous lesions identified at T12, L1, L3. Sclerotic lesion seen in the left iliac bone, axial image 216 measuring 7 mm. Asymmetrical sclerotic lesion seen at the left posterior acetabulum, seen on axial image 315. No pathologic fracture is identified.IMPRESSION:1. Redemonstrated osseous metastatic lesion, not significant different compared to prior exam. No pathologic fracture is seen.2. Mediastinal paratracheal and subcarinal mass, not significantly different compared to prior exam. Stable mild prominence of multiple para-aortic chain lymph nodes.3. Thickening of the lateral limb of the left adrenal gland is slightly more conspicuous in the interval. Attention on follow-up is suggested.4. Perirenal soft tissue thickening is likely less conspicuous in the interval. This may reflect an ongoing inflammatory process. Correlation with physical exam recommended.4. Enlarged thyroid gland as before. Fat-containing umbilical hernia. Other findings as given above.This document has been electronically signed by BERNARD Arizmendi on 09/30/2019 4:42 PM Name Value Range Interpretation Code Description Data Lynn rce(s) Supporting Document(s) ID Date Data Source [id number] 09/30/2019 04:44:46 PM EDT [facility] CT ABDOMEN PELVIS WITH CONTRAST [id number] AL RESULTInterpreted by:Jose Guadalupe Arizmendi [facility] [place]: Interval follow-up of extensive stage small cell lung cancer.TECHNIQUE: Helical axial images of the chest, abdomen and pelvis were obtained and displayed at 5 and 1.25 mm intervals. Automated dose lowering techniques and/or adjustment according to patient size were utilized for this exam. Intravenous contrast was administered. Oral contrast was given. COMPARISON: CT abdomen and pelvis dated 08/14/2019, 6 05/16/2019; PET/CT dated 06/16/2019.FINDINGS:Neck base: Redemonstrated enlarged thyroid gland.Mediastinum: Redemonstrated mildly enhancing soft tissue in the precarinal/paratracheal, subcarinal location. Subcarinal mass measures approximately 3.5 x 30 cm, previously 3.1 x 2.4 cm. Now also there is punctate focus of calcification seen within. Tiny precarinal nodes, appearance unchanged. Also, subcentimeter nodes also seen in the parasagittal location at the gastroesophageal junction. The heart is stable in size without evidence of pericardial effusion. The aorta and the great vessels origins are relatively stable in appearance with homogeneous opacification.Axilla: Subcentimeter benign axillary lymph nodes are seen bilaterally.Lung: Subtle pleural nodularity seen at the apical posterior aspect of the upper lobes measuring approximately 3 mm, seen on axial image 55. Subtle linear appearing nodularity in the vicinity, likely atelectasis. Minor scarring/atelectatic seen in the left upper lobe. Scattered foci of emphysematous changes are seen in the lingula and the middle l obe. The visualized lung bases are otherwise clear. No large pleural effusion is identified. Trace coronary calcifications are partially visualized. Liver: Grossly normal in size, contour, and attenuation. No focal lesions are identified.Gallbladder: No radiopaque gallstones are identified.Bile ducts: There is no evidence of intrahepatic or extrahepatic biliary dilation.Pancreas: No mass is seen. There is no ductal dilatation. Stable mild fatty involution is present.Spleen: The spleen is at the upper limit of normal size and is normal in attenuation. No focal lesions are identified.Adrenals: There is mild nodular thickening of the left lateral adrenal limb, slightly more conspicuous in the interval. The right adrenal gland is normal in size and morphology..Kidneys: Renal enhancement and excretion is normal and symmetric bilaterally. No obstructing calculi or evidence of hydronephrosis in either kidney. Stable appearing nodular calcification adjacent the hilum at the left midpole is favored to represent vascular calcification. No focal lesions are identified. Mild bilateral perinephric stranding is noted, similar to prior..Stomach and bowel: Visualized bowel loops are nondilated. No evidence of acute appendicitis is seen. Scattered colonic diverticula are present, without evidence diverticulitis. There is redemonstrated mild perirenal tissue thickening, slightly less conspicuous in the interval.Lymph nodes: Stable mildly prominent periaortic station lymph nodes. The largest of these is again seen in the left periaortic station at the L1-L2 level, measuring up to 1.2 cm, unchanged. Lower paraesophageal lymph nodes are more conspicuous in the interval, though not enlarged by size criteria. Subcentimeter precaval, celiac axis lymph nodes are also seen.Bladder: No bladder wall thickening or radiopaque calculi are seen.Reproductive organs: Stable uterus and adnexal ovarian tissue. Indistinctness of the external genitalia, partially covered..Vessels: The abdominal aorta is normal in course and caliber. Catheter atherosclerotic calcifications are present.Abdominal wall: A fat-containing periumbilical hernia is redemonstrated..Free fluid/air: No evidence of free fluid or pneumoperitoneum.Bones: Accounting for 12 pair of ribs, last rib-bearing vertebra as T12. Accounting for last rib-bearing vertebra as T12, Small rounded sclerotic focus seen at T8 vertebra. Blastic osseous lesions identified at T12, L1, L3. Sclerotic lesion seen in the left iliac bone, axial image 216 measuring 7 mm. Asymmetrical sclerotic lesion seen at the left posterior acetabulum, seen on axial image 315. No pathologic fracture is identified.IMPRESSION:1. Redemonstrated osseous metastatic lesion, not significant different compared to prior exam. No pathologic fracture is seen.2. Mediastinal paratracheal and subc arinal mass, not significantly different compared to prior exam. Stable mild prominence of multiple para-aortic chain lymph nodes.3. Thickening of the lateral limb of the left adrenal gland is slightly more conspicuous in the interval. Attention on follow-up is suggested.4. Perirenal soft tissue thickening is likely less conspicuous in the interval. This may reflect an ongoing inflammatory process. Correlation with physical exam recommended.4. Enlarged thyroid gland as before. Fat-containing umbilical hernia. Other findings as given above.This document has been electronically signed by BERNARD Arizmendi on 09/30/2019 4:42 PM Name Value Range Interpretation Code Description Data Lynn rce(s) Supporting Document(s) ID Date Data Source [id number] 09/25/2019 09:02:36 AM EDT [facility] Name Value Range Interpretation Code Description [facility](s[facility] Progress Note [facility] MAOZPk0wToVVWlCo80/JBDeqRTQit5KbFIibLHk5RZiwXLHkG8KbUSU7zH7xYTG5ZJpSCkIlXhBtGmRm [facility] [file] [id number]== ID Date Data Source [id number] 09/25/2019 09:00:20 AM EDT [facility] Name Value Range Interpretation Code Description Data Lynn rce(s) Supporting Document(s) Progress Note [facility] YUFBEe5pYfHCIuFg51/BRGxpEUUrh9UtVFvhHIh5DKxbXBNwN9FvOUW5dE6wARC8WPtPAgMgCtUhWfLa lbm [file] ENISQ6GTAl== ID Date Data Source [id number] 09/24/2019 03:18:40 PM EDT [facility] Name Value Range Interpretation Code Description Data Lynn rce(s) Supporting Document(s) Progress Note [facility] OZPXVg1iPeNDXmXo43/KKEwrOVUuo8QmNBnpVMm3QBprVWPzB5IbWRR9iO1qUBW6DWhSCzPlAgZmFdS2 lbm [file] [facility]///[id number]WN3wwGErGh+jn4UapSKRAgPfXl2AhM2O0zwEyy18 [file] ICAgICAgICAgICAgICAgICAgICAgICAgICAgICAgICAgICAgICAgICAgICAgICAgICAgICAgICAgICAg ICAgICAgICAgICAgICAgICAgICAgICAgICAgICAgIC ANCiAgICAgICAgICAgICAgICAgICAgICAgICAgICAgICAgICAgICAgICAgICAgICAgICAgICAgICAgIC AgICAgICAgICAgICAgICAgICAgICAgICAgICAgICAgICAgICAgICAgICANCiAgICAgICAgICAgICAgIC AgICAgICAgICAgICAgICAgICAgICAgICAgICAgICAg ICAgICAgICAgICAgICAgICAgICAgICAgICAgICAgICAgICAgICAgICAgICAgICAgICAgICANCiAgICAg ICAgICAgICAgICAgICAgICAgICAgICAgICAgICAgICAgICAgICAgICAgICAgICAgICAgICAgICAgICAg ICAgICAgICAgICAgICAgICAgICAgICAgICAgICAgIC AgICANCiAgICAgICAgICAgICAgICAgICAgICAgICAgICAgICAgICAgICAgICAgICAgICAgICAgICAgIC AgICAgICAgICAgICAgICAgICAgICAgICAgICAgICAgICAgICAgICAgICAgICANCiAgICAgICAgICAgIC AgICAgICAgICAgICAgICAgICAgICAgICAgICAgICAg ICAgICAgICAgICAgICAgICAgICAgICAgICAgICAgICAgICAgICAgICAgICAgICAgICAgICAgICANCiAg ICAgICAgICAgICAgICAgICAgICAgICAgICAgICAgICAgICAgICAgICAgICAgICAgICAgICAgICAgICAg ICAgICAgICAgICAgICAgICAgICAgICAgICAgICAgIC AgICAgICANCiAgICAgICAgICAgICAgICAgICAgICAgICAgICAgICAgICAgICAgICAgICAgICAgICAgIC AgICAgICAgICAgICAgICAgICAgICAgICAgICAgICAgICAgICAgICAgICAgICAgICANCiAgICAgICAgIC AgICAgICAgICAgICAgICAgICAgICAgICAgICAgICAg ICAgICAgICAgICAgICAgICAgICAgICAgICAgICAgICAgICAgICAgICAgICAgICAgICAgICAgICAgICAN CiAgICAgICAgICAgICAgICAgICAgICAgICAgICAgICAgICAgICAgICAgICAgICAgICAgICAgICAgICAg ICAgICAgICAgICAgICAgICAgICAgICAgICAgICAgIC AgICAgICAgICANCjw/qBBnU2hyuTSjowN1F6flBf5UKw3OFK4kp5YaFWElDVczafTkLtcQFhPeYRDmDr eGEub8PBgvJH3IqADsU5VxQ9CiMDdqCM8UFRTsFNJbcZOkVUDvRKJtGwZ9HXVlWMsdQU5XzLIzIVppSZ KeWUEfDE1JMEQjO578jdPpBI2BHf8QBkNfHG4gcs5Z WZfbHEEuNkcEZgz2VFwqPR2UgIOilAAkXPKoDBDLZwRzJ6ost2GkCvNtPEYNUXtsHL0Hf7MgtVNoOSn+ Yr2ZAH0dj1LqCJhzNWNxBX2hew6ZCDzHGsLcJ7WnlBvyMZCeg2nzNDOwJX7tmTUeBNN3ZBkrtnJlWMNp WLVtxZajIUWntRZkmFEvKEwXF4zbPUQhTz7pCU2bMW JqRVOoFxT8OPALQT1ROPBcRGXptRInRFYaJIXMHE9IVJbhFBE7BUHixrYwaDGyMIhbZP6HIPHzqzRcCA kgMCBSDQo+Zj4TFQ3rp9WxYBiaTDZcYY3leh7JQVhSTxMbV9X2rNOkM9J8FRldAf5YHRWeNLUvHQilMH YLAOtnVR7URU0mzvK1ZI5YzJUdCPDpXKVyaWLlLZx0 C15daQFyTPetGB7VMYI+Antelmo+Mx8VGLShTGNyTESfTpDdLXSOClXoQ4PtR6SYz4XeD4ZiGU95fUxigoAi WDppYC7QCH4fHBLiTJALVP2XvVAhxZ1qrqLzLOCrTFXGOmVyJ45aqWOsYXTyNIM0SDRhOk6XVIToG5Gs jtRmoAvtglVdTTJzWTNURS1LGUuqekHwgXMxrUosMF 99uOuxZQ4BXa2XDoHxKU0ygi8SkNIfWm7KSDQbVu6ZNNIqIGDiTONhGPK1WSBbZgVmQRfiGKTjPGAtCJ K1WEJtXJLiTJ2GCjCkUPBcAAlqHoRhOPAjOHOllv0LRCEdCBTxFZf7JSXnAJUaYGPbJVtcLKOzABIsUO S1SPPjAOFzNB6WBoJtQWCkCCFvSEgfLPTaUCZsjb7P PXYkJLXgHxPfEoHiLOHpNMZwLMueYCGmTVDzIkOrHQErHVXcWR2SRsHdXTYrVOL2YTjgAHOdUHJjwo7I VECvFUZwYnEoAZXyVOOkCVJkQPtdIUUzBBO0CXl6GIYjBZRnQU1FEsXfKOZxZBT1JSssTRWhDNRnkf4N OAXzCAZtFCo0IXWbTIVtUPZjJDpvKXFuCDA4TePfOZ AvBRRhSP7NOmVkCIStQZJ5HUYcZAYcHTHgiq0NPYRfRSZkQaq9UWSdLEHnFKRwVImoTYKfMVL2ZDG6EF CvVUCgAM2GUnMzFCFyHHfhIJLyQERbVRTooa6UCQAiYAFpVuL8BNMjKPGmDPBwHNkjADLgKHF3UUm7CJ XhHFOfCQ8LKrDpTLZwOAhjJzBgAYRpAVKyms2JHNHx JRVhNXZnCBMcEWZfLXYuNTt5rrAaoXZpXGg1MY1VT5XlbjEbOrQJEw9Oa418KHYhCFDhWq5PA4xmDf6k JMOmAUCWCa1KXUa3TQReGFHhUVTpRKNcV4PnAKVvKnOaNlI8FqL0FXKzHEM+ESo4VhD6HbG1UQPzXIE6 QiH5QNN0NbGeWcPjQNEmSLS8Hb3yJBTKJh6+MWlrgELwmCrpZHRCEiK3XQXdHWkdVAHXKz5V ID Date Data Source [id number] 09/22/2019 10:41:08 AM EDT [facility] Name Value Range Interpretation Code Description Data Lynn rce(s) Supporting Document(s) Progress Note [facility] KDQMXq1iVjPGLyMg56/CBPbwQXFpb5DwIYzrUAn3SLjqYDQaK1RkJEB3lP8aZIL6YUiONaWzNzYdJuT1 lbm [file] ICAgICAgICAgICAgICAgICAgICAgICAgICAgICAgICAgICAgICAgICAgICAgICAgICAgICAgICAgICAg ICAgICAgICAgICAgICAgICAgICAgICAgICAgICAgIC ANCiAgICAgICAgICAgICAgICAgICAgICAgICAgICAgICAgICAgICAgICAgICAgICAgICAgICAgICAgIC AgICAgICAgICAgICAgICAgICAgICAgICAgICAgICAgICAgICAgICAgICANCiAgICAgICAgICAgICAgIC AgICAgICAgICAgICAgICAgICAgICAgICAgICAgICAg ICAgICAgICAgICAgICAgICAgICAgICAgICAgICAgICAgICAgICAgICAgICAgICAgICAgICANCiAgICAg ICAgICAgICAgICAgICAgICAgICAgICAgICAgICAgICAgICAgICAgICAgICAgICAgICAgICAgICAgICAg ICAgICAgICAgICAgICAgICAgICAgICAgICAgICAgIC AgICANCiAgICAgICAgICAgICAgICAgICAgICAgICAgICAgICAgICAgICAgICAgICAgICAgICAgICAgIC AgICAgICAgICAgICAgICAgICAgICAgICAgICAgICAgICAgICAgICAgICAgICANCiAgICAgICAgICAgIC AgICAgICAgICAgICAgICAgICAgICAgICAgICAgICAg ICAgICAgICAgICAgICAgICAgICAgICAgICAgICAgICAgICAgICAgICAgICAgICAgICAgICAgICANCiAg ICAgICAgICAgICAgICAgICAgICAgICAgICAgICAgICAgICAgICAgICAgICAgICAgICAgICAgICAgICAg ICAgICAgICAgICAgICAgICAgICAgICAgICAgICAgIC AgICAgICANCiAgICAgICAgICAgICAgICAgICAgICAgICAgICAgICAgICAgICAgICAgICAgICAgICAgIC AgICAgICAgICAgICAgICAgICAgICAgICAgICAgICAgICAgICAgICAgICAgICAgICANCiAgICAgICAgIC AgICAgICAgICAgICAgICAgICAgICAgICAgICAgICAg ICAgICAgICAgICAgICAgICAgICAgICAgICAgICAgICAgICAgICAgICAgICAgICAgICAgICAgICAgICAN CiAgICAgICAgICAgICAgICAgICAgICAgICAgICAgICAgICAgICAgICAgICAgICAgICAgICAgICAgICAg ICAgICAgICAgICAgICAgICAgICAgICAgICAgICAgIC AgICAgICAgICANCjw/fOPiS5mecGRebpA5C7nmTu3XOp9SPA9iv3BtYRYgCUovbmYdPvlPKeXxFSCkRa lWEcu0LZlkZD6YhRGxJ1BiS9PuQXfcVC4DNOPdNHViiEFvNHJzAPDiWxE3FSZxIVeqTA1IaHZgKPjcSO AwIFIgNyAwIFIgOSAwIFIgMTEgMCBSIDEzIDAgUiBd FUuhLR7Dd9UnsNR4JWr+Fk6MXV6nk9FsYVsuYmUcEL4cju8PBUsXJbHtY8SoonM3DAF1BFZtBo2NHKBr QGTgbTFgGEEqOVCVHrLcN8EkcM07YKEOYa2+TVouyfVxKexPFsM0XOImr0OrSHn1ZY8CSFJqINb3nAFj LXZwL9Pyd2SxSo30RXFvUpnnHfAkegQqGQNUPESdeJ DssbiwALDnNTZjQo0uZo5sVAEnJBR4CzKwJORSAD2QCPFbNOAovKLdBSIgAOMPLM9AGNvcXJS1GTLjlu GfeYUcXRjiXJ0YMDSmxbYbHxXbDFMUQEb+Fr7OKG8my6VaIOcvCYKrME4dwv5LMPzVTvIqO5R5iJLsE6 F5FUooDr0KFOUiBWMoVmJtBLDBIJlfMD5DUB9kzpE1 RN5ZdYXsORJhPHXoqYTdPDv8B70owZNhRMcgXA2DMJP+Antelmo+Qg3JUCYhRSHyDKBhIcKoVESPGsYtL7Lu U9EQr0ZhU9FeDQ28pEpomwCkWDlaBP9PMO1uPEKxWARNEZ9LyIUmjD3pogVeZnYgRKJZXcLjM86dnLZx GJXuVXNaSSBaEf0WLNSiN7WnvnDozMhxrnHvRPAmBB ESXL4LXLdywaAcsZMheAylRI93sQkqMO9JRl5CKcWgML7ncw5BxGOrKl3UMWBsEs0ASNBpUCNlRVSeLB Y4KFPiBzYlQZkeYMUiIKJfIOU3HRWdQSIjND6VJfEyNJDsBqKnQDklIHYcJTSkxh3ASMKtRDGpQWJ2PJ LrIJCxSBOzWPedRUCtCHYyILS1IKUeYTKvXE8WGgUs UJXhVVV8YsNzSZEbFZLkfm7ABPRtJACoFNu9HVZlGZFuRGIaSEmoMVBmKEN7BiH0LZZsVNEmLS2STuWl GJPqKYe9OzklWQTvQQQmxn3HPPNtJWCsTVA1URAyGEAbXJDkHVbnJWQrTNZeYZjhNUUdEYTnZD4XOpEz KCYvIKK2NpZhBKYvOCUowk6YTWBrPDVxJYBrIwCqWC FjYSWcMOzpETGmKFG6NCLyEZPgOMJeFR0VPqGmUOWhTNJ8GTDoFOAeUUDyso4OPXUlLVTvMoB4AiFeJV CqXTUqBSmgZCNpGMS2SdEkWBXySLXmYA3KTvOuILSwPBL4XRVqUTTwDRBued8ZGDPxQNNpIqefQFOaCA GuMEYaROrzYMMtAZP2ROQ4XYGzHYUwNE3TSjVtTBUy VHarJRIwKVTzREDeiz9SFHAtZUYgXYzvZXZhDFMvIKHhEOvfCIJuJEZlYRNyJASyEXZmEN1YQdOmPVCz KcLwZStlZVKzAWPgwr4QZNZwFNVcUDDbJZXmSGZbZMYpLWjhHTJdCLJkFpD8CLJxVCJxCV3ZIzZlLVZt RwY9SCqiLQHmSQIvsk5ZIOLpLKWiMEl5XATmSJYeER EiSPzvYMUeFHIaTUQ8ELQpUWZoYF5YCyPhUXOtKcG7UYWuFJIfSUGamg7CUXNnLWToZdJ4ODAcGHKtMV ElJLeoXRLkJLLlVcw3FUGsAKIoDE5WCaSbFEUhCnA2YMSmYRVsAGYgtf5SLMYsLADeOVC8SWXlVCYeCM LvSBynPKSbZEJ5ClI9NNEoLLBsND0ILrRrYIMrQfRz XANzZCBgDCSkdo3XkZGhjRujfl3WFVgYTh0RxLiyTTR0JZteAx7nvFDjDFJdPMCAWl3PxsPxIRGeSSKW DDvtUFLeDJU9UXSvBidgEENfWnI7HCg2IJEzMSPaY2O8J4X2IBL2YeB6IRD6EjYiRPR0A1IyQUS8SPhi TgP8YIZ2QXNdJzNwDtP+ZP8qHCb+Yv2Sd7FcdpC3wdEqBWweTOT6VP7CEGDJV9NZGx== ID Date Data Source [id number] 09/19/2019 12:00:00 PM EDT [facility] Name Value Range Interpretation Code Description Data Lynn rce(s) Supporting Document(s) SARS coronavirus 2 RNA [facility] This lab was ordered by [facility] and reported by [facility]. ID Date Data Source [id number] 09/16/2019 02:06:07 PM EDT [facility] Name Value Range Interpretation Code Description Data Lynn rce(s) Supporting Document(s) Progress Note [facility] JUJHKi5nQhAKXtVl85/XLKsxXQHba4MfJYqaNCc1BDucTJPgD9XdXQE5nE1eGPM4RPoXOzQnQoGdRaMi lbm [file] AgICAgICAgICAgICAgICAgICAgICAgICAgICAgICAgICAgICAgICAgICAgICAgICAgICAgICAgICAgIC AgICAgICAgICAgICAgICAgICAgDQogICAgICAgICAg ICAgICAgICAgICAgICAgICAgICAgICAgICAgICAgICAgICAgICAgICAgICAgICAgICAgICAgICAgICAg ICAgICAgICAgICAgICAgICAgICAgICAgICAgICAgDQogICAgICAgICAgICAgICAgICAgICAgICAgICAg ICAgICAgICAgICAgICAgICAgICAgICAgICAgICAgIC AgICAgICAgICAgICAgICAgICAgICAgICAgICAgICAgICAgICAgICAgDQogICAgICAgICAgICAgICAgIC AgICAgICAgICAgICAgICAgICAgICAgICAgICAgICAgICAgICAgICAgICAgICAgICAgICAgICAgICAgIC AgICAgICAgICAgICAgICAgICAgICAgDQogICAgICAg ICAgICAgICAgICAgICAgICAgICAgICAgICAgICAgICAgICAgICAgICAgICAgICAgICAgICAgICAgICAg ICAgICAgICAgICAgICAgICAgICAgICAgICAgICAgICAgDQogICAgICAgICAgICAgICAgICAgICAgICAg ICAgICAgICAgICAgICAgICAgICAgICAgICAgICAgIC AgICAgICAgICAgICAgICAgICAgICAgICAgICAgICAgICAgICAgICAgICAgDQogICAgICAgICAgICAgIC AgICAgICAgICAgICAgICAgICAgICAgICAgICAgICAgICAgICAgICAgICAgICAgICAgICAgICAgICAgIC AgICAgICAgICAgICAgICAgICAgICAgICAgDQogICAg ICAgICAgICAgICAgICAgICAgICAgICAgICAgICAgICAgICAgICAgICAgICAgICAgICAgICAgICAgICAg ICAgICAgICAgICAgICAgICAgICAgICAgICAgICAgICAgICAgDQogICAgICAgICAgICAgICAgICAgICAg ICAgICAgICAgICAgICAgICAgICAgICAgICAgICAgIC AgICAgICAgICAgICAgICAgICAgICAgICAgICAgICAgICAgICAgICAgICAgICAgDQogICAgICAgICAgIC AgICAgICAgICAgICAgICAgICAgICAgICAgICAgICAgICAgICAgICAgICAgICAgICAgICAgICAgICAgIC AgICAgICAgICAgICAgICAgICAgICAgICAgICAgDQo8 G9jsEFJlPPSlDY1lMGd6Rw1+RGyINyNhGDJ6trNzyD1BUJ7pt9WdSYyyXPYsi0AxGPs9KU8LZXSgMEzp WK1RLVixed9PAYAoDLYwrXOUa7iqSnIbFJB1XJFsQbwcXZ7IIDMqC4sexfZkZGGkFFSGZIqnTPZKTNep UQUXGFQlONZfIyKqAYlkCP1Qd6BzoRS0XZd+Pg0KZW 1yd3LlHGmvGFZdLS3hqv2CRNwAEgSrK0VkekC8WGY8VSPtJr2NYMDlNCTmmYXyQTDpBAENCgDtB7PiyI 05AZUBGr6+ZMqnooClLjyXCiA0OYMly5ZgHUs9TT9RJHFaPMb8kANiRBLsB1Urv8DmWi09FMTiOdtgTV ZcppHCVDjgPCPVQANvqBL9QvHhAiIgOgEfFBJ7NWAd HI0hIZbuLB1ZTWN1GOplOSNyJXCmH9tJYvCzWJVsOiWuwSzyJU5SKnKeG0VxeoKicWErVCVlDSLRIl0+ QMdgeqNeXjhYYgCoTSZqz8FuHHd7NS9JBNZfMVarYX1CBAAmcB4kRGozIX9TUxTyGaPaMOGNAcZkL80z wNNbWRc1X5OwHsXySCPdKwvhIPPeTPkhLsByDNNiRw BdDQogID4+ID4+QSwnSL7KSGkxqiBeDRJbQg0KJIGeTCNyUT7dJUFzJAZrA2X7fSscNOMZDgLoZ9llon ykHE9tWIQoB394iYmszaFjXPC6URLgFr6YFXAlYIE5XJHjcDVdCcvrGCOHTJhxHW7IpMZuKYR7mO2qAR heXUHnSXCwX6uVJuAfgKyeGY10uQchckIqtXXwYZy+ Zo0LXJ1mv8XrSTs5svHtXHiwCXLlBIoqEETuLJYzVBGzXZW5XLR3FNGHOrUxDHFgAZRnPSkzNTTkHYEt fq9LQWZdIEPkIRMwAITeOACzFOLwNHfiRBHuXRDzSJZ9KURdREPhZA0PJbYuPDPvYUXnQJvtXKVbLUFb kp0LBKShSRAoDso7KiItDOEhHLPzTXjjPMNkKRZ8WT slCDPqXFSlIY6KJiYfBMPlALgoIWAcISCkRKFiwb0OAIQkDWNzSdYdEkSgSDIyVZGuOLdqCFEdENQkNh IsDYPxWSNnMX8NNhMaFHReSGL7ATCtLIMuHKOecr9VNQKoOWJwOeCySLYmLCRiSDBnJGadIDLrQPDoIj LgUTKfBQDoSP8DCcQgSVJmCNO0MGWeXCSgITQzsf9S RCKvTASvEGo3IOGlCXTsVVCmSBjyJBByZYZ9EJqgLKSwGBRmOE7UIdDnAGLlSXGsRoRsFSZjFLUgoz5U SVDeHZDdYrPkFvYlTMMjWKHrVOjyYAYmLQZ9PEIkTHAlNAUlQK9FGpYgCLDhNer5TNAzTZZuLBUqyx8H XLBfQUWeJVF4CURbNFZjPVBrXPwkAYOiRJP8Fno9EP JzJQGrHZ5PBaPmPGSzCfd3UrMpLDToCEHrkl1CMBRcTKIpHLh2UMIwSTJxZDYcXGcxWOIbMWL3TuElMS KdFTDoOC0YJtOyDVDqBgw5ZHJlUCVvVFGokt3THPVbWDWoWFH4LNYiLLZkENOlIXmlUCEbLFToGVO0ZI WoCAJoYK0WKiXaKHYwGkB1SgSsRZJvHTSzkt0NVVUr CBLlYmH9MBFcUSZvASGiENdsENKwPMFyAUp6FXCfAVJgXP1FIcOxSMavHAPYWxl4SQcjC7l8HEDtBH2I P9Wse8BuNcTqWYDSVXtxDN3xxsEiSRXzTm3VZ8yDFsd1NIGiFGktKkRwCbB1BWR4FXqoUID3SWV3BEBf Kre8Wv3aBMG2IXF4CZTfHBDaUqJzVMGwUZCaGqS4Yd ngYVVtSRxlFrVdMZ5OVy6BXbY1IAC1tSRzHj0IVfL7ZpESBiQuYK8MTDl= ID Date Data Source [id number] 09/16/2019 11:30:56 AM EDT [facility] MR BRAIN WITH AND WITHOUT CONTRAST [id number] FINAL RESULTInterpreted by:Jeanie Talbot MDEXAMINATION: MR BRAIN WITH AND WITHOUT CONTRAST [id number] INDICATION: brain met, surveillance.TECHNIQUE: Multiplanar and multisequence MR images of the brain were obtained on our Siemens 3.0 Mitra Magnetom Tameka MRI scanner.IV CONTRAST: Yes.COMPARISON: MRI of the brain dated DATE. FINDINGS: There has been interval increase in the size of the enhancing mass visualized in the uncus of the left temporal lobe. The mass now measures approximately 8 x 8 mm, and the cystic component of the mass not visualized on this exam. No other enhancing lesions identified. There are foci of increased T2 and FLAIR signal in the periventricular and subcortical white matter of the left and right frontal, parietal, and occipital lobes likely related to changes with small vessel ischemic disease, unchanged. The ventricles and cerebral sulci are normal. The basal cisterns are patent. There is no acute intracranial hemorrhage or evidence of acute infarction. Neither space-occupying mass, shift of the midline structures, nor abnormal extra-axial fluid collections are present. The pituitary gland is not enlarged. The pineal and cervicomedullary regions are normal. Normal flow voids of the major intracranial arterial vessels are identified. Imaged portions of the paranasal sinuses and mastoid air cells are clear. There are no intraocular or extraocular masses shown. IMPRESSION: 1. Interval increase in the size of the enhancing mass located in the uncus of the left temporal lobe, now measuring 8 mm x 8 mm, the cystic component of the mass is not seen on this exam, findings are likely related to progression of disease. No other enhancing lesions identified.This document has been electronically signed by Regino Bobo MD on 09/16/2019 11:28 AM Name Value Range Interpretation Code Description Data Lynn rce(s) Supporting Document(s) ID Date Data Source [id number] 09/11/2019 08:26:52 AM [facility] Name Value Range Interpretation Code Description Data [facility] rce(s) Supporting Document(s) Leukocytes [#/volume] in Blood by Automated count 7.4 10*3/uL 4-10 [facility] Erythrocytes [#/volume] in Blood by Automated count 3.34 10*6/uL 4.1- 5.3 L [facility] Hemoglobin [Mass/volume] in Blood 11.8 g/dL 11.5-15.5 [facility] Hematocrit [Volume Fraction] of Blood by Automated count 35.3 % 3 6-45 L [facility] Erythrocyte mean corpuscular volume [Entitic volume] b y Automated count 105.9 fL 80-96 H [facility] Erythrocyte mean corpuscular hemoglobin [Entitic mass] by Automated count 35.4 pg 27-33 H [facility] Erythrocyte mean corpuscular hemoglobin concentration [Mass/volume] by Automated count 33.5 g/dL 32.0-36.0 [facility] distribution width [Ratio] by Automated count 16.8 % 11.5-14.5 H [facility] Platelets [#/volume] in Blood by Automated count 241 10*3/uL 150-400 [facility] Differential cell count method - Blood [facility] Neutrophils/100 leukocytes in Blood by Automated count 58 % [facility] Lymphocytes/100 leukocytes in Blood by Automated count 31 % [facility] Monocytes/100 leukocytes in Blood by Automated count 7 % [facility] Eosinophils/100 leukocytes in Blood by Automated count 3 % [facility] Basophils/100 leukocytes in Blood by Automated count 1 % [facility] Neutrophils [#/volume] in Blood by Automated count 4.29 10*3/uL 1.8-7 .0 [facility] Lymphocytes [#/volume] in Blood by Automated count 2.34 10*3/uL 1.2-4 .0 [facility] Monocytes [#/volume] in Blood by Automated count 0.50 10*3/uL 0-0.8 [facility] Eosinophils [#/volume] in Blood by Automated count 0.20 10*3/uL 0-0.5 [facility] Basophils [#/volume] in Blood by Automated count 0.11 10*3/uL 0-0.2 [facility] Nucleated erythrocytes/100 leukocytes [Ratio] in Blood by Automated count 0 /100{WBCs} 0-0 [facility] ID Date Data Source 09/11/2019 09:34:31 AM [facility] Value Range Interpretation Code Description Data Lynn rce(s) Supporting Document(s) Cobalamin (Vitamin B12) [Mass/volume] in Serum or Plasma 512 pg/ml 2 11-946 [facility] ID Date Data Source 09/11/2019 09:34:31 AM [facility] Value Range Interpretation Code Description Data Lynn rce(s) Supporting Document(s) Ferritin [Mass/volume] in Serum or Plasma 147 ng/ml 13-150 [facility] ID Date Data Source 09/11/2019 09:34:31 AM [facility] Value Range Interpretation Code Description Data Lynn rce(s) Supporting Document(s) Albumin [Mass/volume] in Serum or Plasma by Bromocresol green (BCG) dye binding method 4.1 g/dL 3.5-5.2 [facility] Bilirubin.total [Mass/volume] in Serum or Plasma 0.2 mg/dL <1.2 [facility] Calcium [Mass/volume] in Serum or Plasma 10.1 mg/dL 8.6-10.0 H [facility] Chloride [Moles/volume] in Serum or Plasma 96 mmol/L 98-107 L [facility] Creatinine [Mass/volume] in Serum or Plasma 1.11 mg/dL 0.50-0.90 [facility] Glucose [Mass/volume] in Serum or Plasma 195 mg/dL 70-140 [facility] Alkaline phosphatase [Enzymatic activity/volume] in Serum or Plasma 69 U/L 35-104 [facility] Potassium [Moles/volume] in Serum or Plasma 4.2 mmol/L 3.4-5.1 [facility] Protein [Mass/volume] in Serum or Plasma 7.3 g/dL 6.4-8.3 [facility] Sodium [Moles/volume] in Serum or Plasma 132 mmol/L 136-145 L [facility] Aspartate aminotransferase [Enzymatic activity/volume] in Serum or Plasma 25 U/L <32 [facility] Urea nitrogen [Mass/volume] in Serum or Plasma 16 mg/dL 6-20 [facility] Osmolality of Serum or Plasma by calculation 281 mosm/kg 275-300 [facility] Creatinine/Urea nitrogen [Mass Ratio] in Serum or Plasma 14 [facility] Bicarbonate [Moles/volume] in Serum 25 mmol/L 22-29 [facility] Alanine aminotransferase [Enzymatic activity/volume] in Seru m or Plasma 14 U/L <33 [facility] Anion gap 3 in Serum or Plasma 11 mmol/L 8-15 [facility] Glomerular filtration rate/1.73 sq M pre dicted among non-blacks [Volume Rate/Area] in Serum or Plasma by Creatinine-based formula (MDRD) 56 mL/min/1.73m2 >60 L [facility] Glomerular filtration rate/1.73 sq M pre dicted among blacks [Volume Rate/Area] in Serum or Plasma by Creatinine-based formula (MDRD) 65 mL/min/1.73m2 >60 [facility] ID Date Data Source [id number] 09/11/2019 09:34:31 AM [facility] Name Value Range Interpretation Code Description Data Lynn rce(s) Supporting Document(s) Thyrotropin [Units/volume] in Serum or Plasma 67.320 u[IU]/mL 0.270-4 .200 [facility] ID Date Data Source [id number] 09/11/2019 10:13:53 AM [facility] Name Value Range Interpretation Code Description Data Lynn rce(s) Supporting Document(s) Iron [Mass/volume] in Serum or Plasma 86 ug/dl 37-145 [facility] Transferrin [Mass/volume] in Serum or Plasma 235 mg/dL 200-360 [facility] Iron binding capacity [Mass/volume] in Serum or Plasma 326 ug/dl 228 -428 [facility] Iron saturation [Mass Fraction] in Serum or Plasma 26.0 % 20-55 [facility] ID Date Data Source [id number] 09/15/2019 12:06:19 AM [facility] Value Range Interpretation Code Description Data Lynn rce(s) Supporting Document(s) Pyridoxine [Mass/volume] in Serum or Plasma 32.4 ug/L 2.0-32.8 [facility] (NOTE)This test was developed and its pe rformance characteristicsdetermined by [employer]. It has not been cleared or approvedby the Food and Drug Administration.Performed At: [facility] [id number] Sneed MD Ph:[phone] ID Date Data Source [id number] 09/15/2019 03:06:33 PM [facility] Value Range Interpretation Code Description Data Lynn rce(s) Supporting Document(s) Thiamine [Moles/volume] in Blood 211.5 nmol/L 66.5-200.0 H [facility] (NOTE)This test was developed and its pe rformance characteristicsdetermined by [employer]. It has not been cleared or approvedby the Food and Drug Administration.Performed At: [facility] [id number] Sneed MD Ph:[phone] ID Date Data Source [id number] 09/11/2019 09:32:41 AM [facility] Value Range Interpretation Code Description Data Lynn rce(s) Supporting Document(s) Folate [Mass/volume] in Serum or Plasma >4.77 [facility] ID Date Data Source [id number] 08/20/2019 12:24:23 PM [facility] Value Range Interpretation Code Description Data Lynn rce(s) Supporting Document(s) Progress Note [facility] FWKBCc3xHkJXRiDt21/MFMadTNKpe7SuAKcnNWd5ZIzyZRJsT4NoNFD3pZ4kYKK7RQgFZdHyWaAmTeB6 lbm [file] AgICAgICAgICAgICAgICAgICAgICAgICAgICAgICAgICAgICAgICAgICAgICAgICAgICAgICAgICAgIC NmAVNfWSMrYCXhTBSfJV9AEFGqBHRjAREcDEWqBEWe ICAgICAgICAgICAgICAgICAgICAgICAgICAgICAgICAgICAgICAgICAgICAgICAgICAgICAgICAgICAg JKLzAJPwJPHwAKAwULCbVJGiYNZpMWCkBK7FMFDsYHVmDTDoXVSdPIIoJWGjSLAaBNDfGBSsZRMrJLFn ICAgICAgICAgICAgICAgICAgICAgICAgICAgICAgIC VxCYJuTIYlYVXwQGQbPWAmZYSoNOExTFLrAAEcVLAfJNLiUN1USOPdDGNeAKLpLURbLRGuCLErEGNaJQ AgICAgICAgICAgICAgICAgICAgICAgICAgICAgICAgICAgICAgICAgICAgICAgICAgICAgICAgICAgIC LaCERgJNXaPOIuWHXmCEQeDZ7ZFWTqUTBgJYOtAFJj ICAgICAgICAgICAgICAgICAgICAgICAgICAgICAgICAgICAgICAgICAgICAgICAgICAgICAgICAgICAg TBTqZVYaVXGzGVNeDRRfQGXaVXKmPGZnKRRiMC7SQYJlGFMzRNFlCVQkCGLxNDNcWCZyQBYzTZRqIFMo ICAgICAgICAgICAgICAgICAgICAgICAgICAgICAgIC AtXFRrUJLsBZTiLFIfAGBnUBFfFMZaUDNdLQRdRDBqJKFfJSXfLT4YKYUtVGTnAOFxQYViSHJfGVZwEN AgICAgICAgICAgICAgICAgICAgICAgICAgICAgICAgICAgICAgICAgICAgICAgICAgICAgICAgICAgIC NkYZNyKUNfEQIyPSQiYIMxUWWhCQ3ZNHMhSCNnTWRn ICAgICAgICAgICAgICAgICAgICAgICAgICAgICAgICAgICAgICAgICAgICAgICAgICAgICAgICAgICAg SGRuURJdABEjXKRiWNIpOQEtSPZrGLZuEESnGMMdYP5IHSSlMCAlOIJeKUEcGEKuDVIcEREoTKBoXULo ICAgICAgICAgICAgICAgICAgICAgICAgICAgICAgIC WsVOXkICBtQCWeFQSfXYSdOOUuCRHkIPMtFMQbLTNfKSByWERcJJMvVN5DCUXnVXOrIRKbGSVvHBMuNA AgICAgICAgICAgICAgICAgICAgICAgICAgICAgICAgICAgICAgICAgICAgICAgICAgICAgICAgICAgIC UbFSYkQYEvAZEjCVToPAGtRMMsGPLtLS6JLI40aSIi n6M0PZWdMK6mznw/Yc1SSLkanuUxwBOuAE8HJlAtVL3mnq2VRoYyOB3uxu6VYLwMRnElM2M2aWZyVOJk QICLSsSqL82nXWjoDy72ODurXKNbYpSnLYl8Es6KMkOgC1odRZWfCpU2OSYjMaQxJBimIY4Bi2GvsVSb DQo+Zf4DTM8zh1PaPMouNGHtVU2rlx5YTXjUZnUoQ6 ZtieF1THRkFTNoMj0UTGKaWZDuuWLiZTQlBZXKJpAhT4IscV50RIBNRa4+DQplbmRvYmoNCjIwIDAgb2 WlSMy6RX9JJNIaAQl5hDJxHDAgT4Fxq5GzEz93TDEdIdffEuTlpxGtDJCRCWZbmOFffdtdAVLpHBXgEl 2pJU9aZFEoRME5EbS1NMBCVI7ZIRBfBPWinTLyCPRq CRNNDX8BMHhjAPY8VGDmzcKbbLToQJkmCB7DDYQuloSeXUhqMMWAIXo+Mx6PQE8js0YpDNbwNMMmVA5y cm1KWVjDFxIhZ7U7jJHkG9P8JPosRj1DCGCeZADgHJalHUBZVGnhKS4JRT8efdC3XT2WbVDfHZEaSODy kVByZKy4D64zvQLiWCggQS0XPYT+Antelmo+Pd6ORQRjLJ FtXDOdLvTiVYAXZvWxS8WeI7JWo5HwY7YsDJ26xEeoujOlZCjrSC4VND4pQMTrASBNLG1CxRXbxV9ljr ViMVXrFTMDRuMkI54mxSXpRQVpRLL7NDRtUu7AWQQtN6MiovWhxJaqpsQbMWGyDRKFBJ8BHGnodmEmkW UnqYoaAM48kHflIU9FMg5RNlSpNF7klk9RfFPmVg3V XJEyDo9FNUJjATIbUXFmPAZ3UHUbTmNsOHqxANMaNEKqPRU2KLBnATLkNC7SVyLqMCIjQMU3YNXwKMIl EMAhjx0VWTCmBROkDEObKMHkLDOaWMIjUAwbZBZgLTJhSAN8RYVuXPTlVI4OLaEaDDMzBNE3LzqmOAJv TLDvbm5JLQMeUQBjERmrEYAfYQNfWFLuXYndFWZkFS FeEsqvMJGxXEEcSF8CPfMcZAFiLXV0APAaBQPcQSDuuc8PSPRyECNbLzE5SeMbPRPcMOMwRVhoVPSuLA V0URD3CCAyOUNzXR1KHhMrWYMiTNMeFxKyWYXxQLWkpk2KWHBvBPMtXVEqBjWwNWMeQJTqCMreTEAeGK Q8DXP1HHDzGHDqYY3QTjYvYMVdATLsWWZxOCOuIFLl uh0FJDZgFBOgAmE9QyIeRIHsYZWmHKofCEGxAYE6SuQpAUGuCAKzDY2MWsXwOQSeZGQ6CibpEXInWQKu zy1UMBUiYYGnSyI2RDNoMNFkNORjACahAQZbQJR7DyB6TMPxTHAxLL2WPnMlXGXdPMs7LIcqKWDoXMJd uk7SGJBiYHOtAGmdANVlHKFyOAVpKDy0nyVnfMZcOK t3XV5CZ2KlmtZpUfBDJu3Xa580TJCaGVNtOy9IV5ijTp0yJSWlZERFAm9NNYm1HKN5PfZtZNycJkLrZL YwMWVmZmVlMDNlMGQyZjFjYzQ+WAi1TCo0EBZjQGShWBH4CsWaQYFmPGAwG0HgMPEuLCYjFI3qTMKVOy 4+ZDojmBBobIkdVNNBRjZ1ETkcKXnhJRIOJg0Z ID Date Data Source [id number] 08/20/2019 12:24:18 PM EDT [facility] Name Value Range Interpretation Code Description Data Lynn rce(s) Supporting Document(s) Progress Note [facility] GOPXWa3tVoMOSeSv70/YJBzfSQFfg1TqVMnwXAq9XPwnOFEmJ7GoKKX9bP0kBDW4BAeXBvDuChFuKjE4 lbm [file] jAIksDPoCrbl7ZX/Tonny/CrOo22OUPe6gH8d8XLUR4C fk0YellcXv3/inés+fLvi0wP19wew05e9WBFyAsA+lGDC6Za4C6mDe9zWFRRfUyszgqDrtrox/OrJFZqi [file] AgICAgICAgICAgICAgICAgICAgICAgICAgICAgICAgICAgICAgICAgICAgICAgICAgICAgICAgICAgIC XdUYHeWBVcLAUqORNbVFZtCLVvEN1HOVTlTXScYOFw ICAgICAgICAgICAgICAgICAgICAgICAgICAgICAgICAgICAgICAgICAgICAgICAgICAgICAgICAgICAg MUYuOZRnBZDaOAHkZNCxWMTeAWYkKDGrJGIyVQUmUD5DIKJzTEJxIXSkALRqMUVzKFIoEBJfZLQvHQMx ICAgICAgICAgICAgICAgICAgICAgICAgICAgICAgIC QdBIDzQKRuFBSaYHWyJZTmIXBiKBZmTQMvPKUgJITsPYYoWJRjZQDeBT8ALIIuVKNxQENvZLRuLJIxCX AgICAgICAgICAgICAgICAgICAgICAgICAgICAgICAgICAgICAgICAgICAgICAgICAgICAgICAgICAgIC CxBGOpOFQxJWHyNBUmAXYvRXVqIPFyWR8BXSVkCZXl ICAgICAgICAgICAgICAgICAgICAgICAgICAgICAgICAgICAgICAgICAgICAgICAgICAgICAgICAgICAg PVJcQBPvZHVyDUHnFWTtOYCgTNKqUMTrYTIuUSHuBWZaTA1FOTClHGOeTDTrXLMrYFYiJYZlKJLkEGGm ICAgICAgICAgICAgICAgICAgICAgICAgICAgICAgIC YpSUBpHPIgSCDvDZLmRTIiCQUfLZXfGPZbXEHmGUFtJDIvJPCnKOUuQXJvDL0CGTZxBGGmFWOoFRHoLW AgICAgICAgICAgICAgICAgICAgICAgICAgICAgICAgICAgICAgICAgICAgICAgICAgICAgICAgICAgIC ZzFTBwNWPwWAUdGZSpFHHvTLQiEASwWZZsZF2NTHQm ICAgICAgICAgICAgICAgICAgICAgICAgICAgICAgICAgICAgICAgICAgICAgICAgICAgICAgICAgICAg AGFsGWVrMGIoARHyDYXfHRGgEWQoOYAkEQPyNQRgRBIqSSPoJP4REPRpUWAaPQRiQOUaVGHxUWDlEUWo ICAgICAgICAgICAgICAgICAgICAgICAgICAgICAgIC TbVTNfBIJcVPQoWJVaINUcGDMbTLCcXZKrZFZsIEUtGJAxIADaRJBrTDTpNPJuXZ3FJJRmSLVlJOOxNC AgICAgICAgICAgICAgICAgICAgICAgICAgICAgICAgICAgICAgICAgICAgICAgICAgICAgICAgICAgIC RbDFIxEKLeLDTvFQZjSSZtUORgWYRtAFQaJWBoHY5C SM87iTLnw2Q6ELUlAE3jrqk/Uk1OZDwodjTpeIAqTP7CYnKiMZ4mgq3SSbJyNN5dpi4NDIjQVrJmF5F1 mCNnAGIuKKVIQyTjK87eSJwmKk32DLksIKPhXhAsTGz9Jc6FOoLeE4xmXHJzGpI6XXXgQyS6PZElUfK3 OUYvDpMzXZDnIBRpWQCiJSXSAZO0IPUqFuAfTvSoKR YsSEzpLGJDUMMlMOHyHjSjZXleAL8Bq1YcrXZ0JNi+Mj5NHT6cj3UhXLb1RFGsEA2zst9ASBsMLgFdE8 XwszL9LUEaQHGfMm9IAPRvCVUlrAE1IgIbUHRJVcSnA5SwgZ72FZEVFb3+DQplbmRvYmoNCjQyIDAgb2 AbTKx1NX4RQBYxEIw5tJQeLNWmL0Nnt7FvNb80KHAz AtzaWMB2kbJuSA2qMXPjRFGyIB8ntsakDKFxLFWwRd2cEN9jAMLeVPG6NzI1RJTEPY6TAAXlDGOgpPMd JDIeUWYGAD2DJZkeVSD2LVTtdzUzzPXdKGwtGA0VNZZfdeUkVMKdRNRDHXl+Vi6FYU9xk9MtUWi5IcXg JO3nlw4HZSeYGdMgZ6V4zYGsX4J6UYgxDw8MKARyMJ DxWtkxKAFBUUyjRJ0LJV7szyQ5MZ5ZyIKrCJGtHJXwcBQeXTw7K89erLZiVRwjFX0MBOA+Antelmo+Pg0KIC VmWUZgGBAuYfFzRRJEIiZsO8KqC4EPx4QzL4QsNX84pZsdbqCeJHtrER8DJM0pXBVuAOWFYA9TqRTlrT 7xyuI8PAQkTCLEGbDgU24tpPUiLYDdZNEjOESrDu6J KUQoY9EwrmIaxFarzoDgFXOqYSHBLX7MIEgsmmZgtDJgyRkkUS85uSilUK1CLj2ITtKcHI7jfc1XtYXb Fp5PTNI3WK2JQMHlEAZlXWRyXRI3XNAkNlRmFCfwKWNlKSTjBYW5JYDyITPtXJ6PAgExESBaTVk6ELAs PQUdQKYzrw4GUQMuZDH4QUJ2ZaZtDUNfAMQvGTacIZ LbXEFpCHV3HKXbRLJmMN3BWkPoOBKkHZMfOiZsDCWeWVLivk0TCPCtMJNeQLL2FAPiHJMfMOTyHHekYM YfOOF7FiX7NVJlCJBcUQ5SFuXsRZFmCId2XDZqHBYiJBZezf8GNPTgVVInEQP4RiHgIHNjXITyMGrcSG EqBJAaBwWyMTMkJHPjGS3FIvKpIEYpYMJ8RpWpIYQh SXLzdd2YKACtLHWyBmP9FXGiLYFkDHJwOIyvDSQrXXT3DsGoCSVoAWDuNX2QDiElPTUnJWB8USurIFQy FXByyz0HAOMpOETgLYEcNKAkLPGiTTWgWKdkECAnEYPcKTQoVDJqDMPpYH4CPlGyUPQgVqO2HeYeGDHg BPIgaf3OKJAqCLCfWRJ4HeIuJKBbMTKzUIpkRKNnKD V6SMR9TOVeENLqWV1JErCtAGUsJhriXvSmHCUqJAAmmb8GURVlKYBoXAl6OpXlQBVuUFVmRGopMWZjQK WzTHkhIRFkDUKxJB6KJjNpMXBjOsQaCCMkKRAiJLXifl6XRTMaJEGnBcS2NYGbHHFhGPEyDPrpMTUrXM OiXLUjXMMmHYMlXR7MItVoHPFrQbL5ZRYlQAVcDORi yl1JVEDkKCOmQlF5ZkGjBEXhJNGjLYgaQVLlUYScMWxlSHAcUMZoDN3EWtDhAGEpUSGtGQFaHKQrISQk vv4LWLNpEIV2HFLpHdAjDHEjRKCbGQpzWFAsJDZ1KGK0ESZxNRSgUE6WMaAzDTYdQVRtWLObXYQlDDQo se3EJYExYIK4GbS2UJFaKJZlBTOkPYjkXJVqCAN8CK v1HXTzQMJpFQ8DXjJsLBJyTAecKyhgFDOaFUOhdv0RSBCuPUO9OiJ1EIMhMJKoKQOpRMzaOYGtZKR9LK S1ZAMnODQwTX9LOwVyPEOjLIw9WKJvHJXqCHFppo0DKRCyPWB4NLf0TZRlHLZzMAQfJWrcPQYhJCL8Vt EzODZiFHJgYP4NBgUdALVoDBM9HMGtABLmSFKmse7X GIPkRHQ3CUe4UoEjKLMuIRRdLNfuACUjHJOgOSNsMLBiTDJtFG8BBmVgBKntWTGVDsh9QOrlX8o2SII2 GN0DE8Ijd9EqYXFsSRLVJEugJE1wrlQnKVBfDy5ZN5nXXennXCK2AzQsSUP4AIWhTWK8ZMLlHyjfGYVe JBAqMJloAk1nWEK2FhkiYaQlRBX3PlQfHtM0KQD7SG T2X2Z9JaVdEPGpThUdPP0LTc6SQlM6MVR4lBTpKp8NYEMkAsDVIwSpGJ6DDLc= ID Date Data Source [id number] 08/20/2019 08:19:25 AM EDT [facility] Name Value Range Interpretation Code Description Data Lynn rce(s) Supporting Document(s) Leukocytes [#/volume] in Blood by Automated count 7.2 10*3/uL 4-10 [facility] Erythrocytes [#/volume] in Blood by Automated count 2.79 10*6/uL 4.1- 5.3 L [facility] Hemoglobin [Mass/volume] in Blood 9.6 g/dL 11.5-15.5 L [facility] Hematocrit [Volume Fraction] of Blood by Automated count 29.0 % 3 6-45 L [facility] Erythrocyte mean corpuscular volume [Entitic volume] b y Automated count 104.0 fL 80-96 H [facility] Erythrocyte mean corpuscular hemoglobin [Entitic mass] by Automated count 34.6 pg 27-33 H [facility] Erythrocyte mean corpuscular hemoglobin concentration [Mass/volume] by Automated count 33.2 g/dL 32.0-36.0 [facility] distribution width [Ratio] by Automated count 22.9 % 11.5-14.5 H [facility] Platelets [#/volume] in Blood by Automated count 296 10*3/uL 150-400 [facility] Differential cell count method - Blood [facility] Neutrophils/100 leukocytes in Blood by Automated count 60 % [facility] Lymphocytes/100 leukocytes in Blood by Automated count 29 % [facility] Monocytes/100 leukocytes in Blood by Automated count 10 % [facility] Eosinophils/100 leukocytes in Blood by Automated count 0 % [facility] Basophils/100 leukocytes in Blood by Automated count 1 % [facility] Neutrophils [#/volume] in Blood by Automated count 4.34 10*3/uL 1.8-7 .0 [facility] Lymphocytes [#/volume] in Blood by Automated count 2.09 10*3/uL 1.2-4 .0 [facility] Monocytes [#/volume] in Blood by Automated count 0.69 10*3/uL 0-0.8 [facility] Eosinophils [#/volume] in Blood by Automated count 0.01 10*3/uL 0-0.5 [facility] Basophils [#/volume] in Blood by Automated count 0.04 10*3/uL 0-0.2 [facility] Nucleated erythrocytes/100 leukocytes [Ratio] in Blood by Automated count 0 /100{WBCs} 0-0 [facility] ID Date Data Source [id number] 08/20/2019 08:43:05 AM EDT [facility] Name Value Range Interpretation Code Description Data Lynn rce(s) Supporting Document(s) Albumin [Mass/volume] in Serum or Plasma by Bromocresol green (BCG) dye binding method 3.1 g/dL 3.5-5.2 [facility] Bilirubin.total [Mass/volume] in Serum or Plasma 0.2 mg/dL <1.2 [facility] Calcium [Mass/volume] in Serum or Plasma 8.8 mg/dL 8.6-10.0 [facility] Chloride [Moles/volume] in Serum or Plasma 95 mmol/L 98-107 L [facility] Creatinine [Mass/volume] in Serum or Plasma 1.01 mg/dL 0.50-0.90 [facility] Glucose [Mass/volume] in Serum or Plasma 298 mg/dL 70-140 [facility] Alkaline phosphatase [Enzymatic activity/volume] in Serum or Plasma 97 U/L 35-104 [facility] Potassium [Moles/volume] in Serum or Plasma 4.0 mmol/L 3.4-5.1 [facility] Protein [Mass/volume] in Serum or Plasma 6.4 g/dL 6.4-8.3 [facility] Sodium [Moles/volume] in Serum or Plasma 132 mmol/L 136-145 L [facility] Aspartate aminotransferase [Enzymatic activity/volume] in Serum or Plasma 18 U/L <32 [facility] Urea nitrogen [Mass/volume] in Serum or Plasma 10 mg/dL 6-20 [facility] Osmolality of Serum or Plasma by calculation 284 mosm/kg 275-300 [facility] Creatinine/Urea nitrogen [Mass Ratio] in Serum or Plasma 10 [facility] Bicarbonate [Moles/volume] in Serum 23 mmol/L 22-29 [facility] Alanine aminotransferase [Enzymatic activity/volume] in Seru m or Plasma 14 U/L <33 [facility] Anion gap 3 in Serum or Plasma 14 mmol/L 8-15 [facility] Glomerular filtration rate/1.73 sq M pre dicted among non-blacks [Volume Rate/Area] in Serum or Plasma by Creatinine-based formula (MDRD) 63 mL/min/1.73m2 >60 [facility] Glomerular filtration rate/1.73 sq M pre dicted among blacks [Volume Rate/Area] in Serum or Plasma by Creatinine-based formula (MDRD) 73 mL/min/1.73m2 >60 [facility] ID Date Data Source [id number] 08/20/2019 08:43:05 AM [facility] Name Value Range Interpretation Code Description Data Lynn rce(s) Supporting Document(s) Thyrotropin [Units/volume] in Serum or Plasma 1.100 u[IU]/mL 0.270-4. 200 [facility] ID Date Data Source [id number] 08/20/2019 10:31:49 AM [facility] Value Range Interpretation Code Description Data Lynn rce(s) Supporting Document(s) Cobalamin (Vitamin B12) [Mass/volume] in Serum or Plasma 615 pg/ml 2 11-946 [facility] ID Date Data Source [id number] 08/20/2019 10:31:49 AM [facility] Value Range Interpretation Code Description Data Lynn rce(s) Supporting Document(s) Ferritin [Mass/volume] in Serum or Plasma 373 ng/ml 13-150 H [facility] ID Date Data Source [id number] 08/20/2019 10:31:49 AM [facility] Value Range Interpretation Code Description Data Lynn rce(s) Supporting Document(s) Iron [Mass/volume] in Serum or Plasma 121 ug/dl 37-145 [facility] Transferrin [Mass/volume] in Serum or Plasma 165 mg/dL 200-360 L [facility] Iron binding capacity [Mass/volume] in Serum or Plasma 229 ug/dl 228 -428 [facility] Iron saturation [Mass Fraction] in Serum or Plasma 53.0 % 20-55 [facility] ID Date Data Source [id number] 08/24/2019 03:06:11 PM [facility] Value Range Interpretation Code Description Data Lynn rce(s) Supporting Document(s) Thiamine [Moles/volume] in Blood 132.6 nmol/L 66.5-200.0 [facility] (NOTE)This test was developed and its pe rformance characteristicsdetermined by [employer]. It has not been cleared or approvedby the Food and Drug Administration.Performed At: [facility] [place], [place] [id number] Sneed MD Ph:[phone] ID Date Data Source [id number] 08/26/2019 02:07:43 PM [facility] Name Value Range Interpretation Code Description Data Lynn rce(s) Supporting Document(s) Pyridoxine [Mass/volume] in Serum or Plasma 20.0 ug/L 2.0-32.8 [facility] (NOTE)This test was developed and its pe rformance characteristicsdetermined by [employer]. It has not been cleared or approvedby the Food and Drug Administration.Performed At: [address] [id number] Sneed MD Ph:[phone] ID Date Data Source [id number] 08/20/2019 03:33:03 PM [facility] Name Value Range Interpretation Code Description Data Lynn rce(s) Supporting Document(s) Folate [Mass/volume] in Serum or Plasma >4.77 [facility] ID Date Data Source [id number] 08/15/2019 06:28:18 PM [facility] CT THORAX WITH CONTRAST [id number] RESUL TInterpreted by:Farooq Otero MDINDICATION: Follow-up extensive stage small cell lung cancer.TECHNIQUE: CT thorax with contrast. 1 mm thick sections were made using helical technique from lung apices through lung bases. Intravenous contrast was administered for this examination. This study was followed by CT scans of the abdomen and pelvis.Automated dose lowering techniques and/or adjustment according to patient size were utilized for this exam.COMPARISON: PET/CT, 06/24/2019. CT thorax, 05/15/2019.FINDINGS: There is a new small sclerotic focus in the T8 vertebral body, and a larger mixed lytic and sclerotic focus in the T12 vertebral body, both of which are new. Otherwise the chest wall is normal in appearance.The thyroid gland remains markedly enlarged. The mediastinal lymph node mass that was present on 05/15/2019 has become markedly smaller. There are no new sites of lymphadenopathy in the mediastinum or pulmonary aj. The heart size remains within normal limits.I see no findings of pleural or pericardial disease.For findings the low diaphragm, please refer to the report of the concurrent CT scan of the abdomen and pelvis.The lungs are clear.IMPRESSION: 1. New skeletal lesions, in the thoracic spine, consistent with progression of metastatic disease.2. No other evidence of active malignancy in the thorax.3. Persisting marked enlargement of the thyroid gland.This document has been electronically signed by Farooq Otero MD on 08/15/2019 6:26 PM Name Value Range Interpretation Code Description Data Lynn rce(s) Supporting Document(s) ID Date Data Source [id number] 08/15/2019 11:09:58 AM [facility] CT ABDOMEN PELVIS WITH CONTRAST [id number] AL RESULTInterpreted by:Jose Antonio Guan, Gabriela Parker MDINDICATION: 54-year-old female, follow-up extensive stage small cell lung cancer.COMPARISON: PET CT 06/16/2019, CT abdomen pelvis 05/16/2019.TECHNIQUE: Helical axial scans were performed from the lung bases to below the pubic symphysis with intravenous and oral contrast. Subsequently, coronal and sagittal reformations were obtained. Automated dose lowering techniques and/or adjustment according to patient size were utilized for this examination.FINDINGS:Lung Bases: No pleural or pericardial effusion. Minimal scarring is present in the lung bases. The heart size is within normal limits. There are no pleural or pericardial effusions.. For findings above the diaphragm, please refer to same-day CT thorax report. Liver: Normal size and morphology. No focal lesions. There is no evidence of intrahepatic biliary duct the liver, spleen spleen, adrenals, gallbladder and kidneys are unremarkable. The pancreas is partially atrophic. There is no evidence of intra or extrahepatic biliary duct dilatation.The Stomach/Bowel: The unopacified stomach and small bowel loops are grossly unremarkable. There is mild thickening of the right to the transverse colon compared to the previous study. The left colon is collapsed and is suboptimally evaluated for wall thickening. There is lobular and nodular thickening in the perianal region extending anteriorly to the perineum. This is new since the previous study. Recommend correlation with physical examination to exclude a mass..Pelvis: Evaluation of the pelvis is as described above. In addition there is inferior descent of the pelvic floor with prolapse of the urinary bladder and rectum. The urinary bladder is partially collapsed and is suboptimally evaluated for wall thickening. No urinary bladder calculus is demonstrated. The uterus and is otherwise unremarkable.. Bilateral adnexal soft tissue densities are present consistent with the ovaries. The left measures 2.3 x 2 cm and the right measures 2.1 x 1.6 cm. It contains a cystic change measuring 1.6 cm.Lymph Nodes: There is a 1 x 1.8 cm periportal lymph node. A 2.1 x 1 cm portacaval lymph node is present and this is at the within normal limits in size for this location. A left para-aortic lymph node is present at the level of the SMA origin. There is a mildly prominent left para- aortic lymph node measuring 1.2 x 1.6 cm cm (image [id number]). Otherwise, there are no pathologically enlarged lymph nodes in the mesentery and retroperitoneum.Vascular Structures: The abdominal aorta is nonaneurysmal. The origin of the celiac axis, SMA, bilateral renal arteries, and the MCKAYLA are patent. There are stable atherosclerotic disease. There is normal opacification of the portal vein and its branches. There are phleboliths within the pelvis.Osseous Structures: There is interval development of a sclerotic lesion with a lucent center within the right L1 vertebral body. New sclerotic focus at L2. There is a new sclerotic lesion within the L4 vertebral body measuring 1.2 x 1.1 cm. There is also a new sclerotic focus within the left iliac bone measuring 0.7 cm.Body Wall: There is been interval resolution of the subcutane ous emphysema and stranding within the anterior abdominal wall. There is a small right paraumbilical hernia containing mesenteric fat.IMPRESSION:1. Interval development of multiple osseous lesions as above concerning for metastatic disease.2. Mildly prominent left para-aortic lymph node measuring 1.2 x 1.6 cm. Previously 1.2x 0.9 This node demonstrated no significant FDG avidity on the prior PET/CT. Findings nonspecific and close attention on follow-up exam is recommended.3. Lobulated and nodular prominent soft tissue in the perianal region extending into the perineum and follow-up is recommended with physical examination to exclude a mass.4. Inferior descent of the pelvic floor with prolapse of the rectum and urinary bladder base.5. Additional findings as above. Please refer to same-day CT thorax report for findings above the diaphragm.This document has been electronically signed by Jose Antonio Guan MD on 08/15/2019 11:07 AM Name Value Range Interpretation Code Description Data Lynn rce(s) Supporting Document(s) ID Date Data Source [id number] 07/23/2019 04:33:48 PM EDT [facility] Name Value Range Interpretation Code Description Data Lynn rce(s) Supporting Document(s) Progress Note [facility] [id number]/[id number]2 lbm [file] [id number]== ID Date Data Source [id number] 07/23/2019 04:33:43 PM EDT [facility] Name Value Range Interpretation Code Description Data Lynn rce(s) Supporting Document(s) Progress Note [facility] [id number]/KIHkjQFMdb3KsHNiqSJb3JGpiLWLrM1HmFGB9dS6kWDR8CMpCObGlGrHsWKH0 lbm [file] Hhkg4PsfCtaoC4SZmjhaHf+ZJzLyd+arabic linguist/0+j1f3rNyUtYMUO3QJxSevlzApr+A132Q0i1HUUba10z3kx 9tJEi6TdtvnE2RmOp0N6jRsgOSZmhsrRCWVBUgl8i4 9XxvSmVE1wOAJpT0NYdK+jS0a88Mmn7F9liHuhPooGdhnTb3XUUmGxLsJwn4ULLtdu4z6Z18BXGjYCns jrFmeTVMmgsaAaJKGDfMF6EhLYsR1Te3PgvbdeelZ0X09g4hQiSqXOyY2Tu4yAkyXGtjbtWVaWdjjqK9 uVJ+dlPb5n3KkvDRS8fMA3VfdA3K4Xhb79fV2XpwG8 Z1Jisv9IjteehAT+q2619DBsIujRpo0OGG8YFThgWT758ATNJd/3qoncupyG8dyjKoswWJPGGj6lWg12 yocEZjrd77k9udBDqUtj/GumFZ/Kmz8m8trWwtMD6k1vtFDsBGtwNayz7mq5MMDvevnF/bkVByZfsDYS qwqaiWSEQDzL0HLIHpoBlpv3VH4LmQ4VDaSRZSdcfi LsH9JwCo2UuIgawXRBcRmr5opPNHhxc0ed9JmG9d57r3EO1EJFlQA9xmDeRfrpc9ZQ4EJRqlLv2u3Vya Jy+rhgUOYVBX+n5j2Z/psOKux7I7SqkdZ1Fmr5fiSESPekQm/U8LPKklHRxoW7Lis2rWIqtpzcgiWLyW ZSpgotaghd3hq3cxxNtyX7qju8gdkZe8P6lp4utulm REgeAPU8x2jj77Y9IVs4dbni6m1E5A7r8Tab9gU9rvGXmPDchtkQMyPjZH0HyTLjPonaB76Rw0N8VAI8 KqMoCduRd/xYbAUyHotiPTnL4UkkKpUMOEc378SFPZRUqCoYjwp2WHFsZgtzI/Fwase48XXTMiJZV8L9 WVYUSE/PJWHRYZjEPSFzzCuIzw2cOw18IIYAwsQHSi [file] ICAgICAgICAgICAgICAgICAgICAgICAgICAgICAgICAgICAgICAgICAgICAgICANCiAgICAgICAgICAg ICAgICAgICAgICAgICAgICAgICAgICAgICAgICAgIC AgICAgICAgICAgICAgICAgICAgICAgICAgICAgICAgICAgICAgICAgICAgICAgICAgICAgICAgICANCi AgICAgICAgICAgICAgICAgICAgICAgICAgICAgICAgICAgICAgICAgICAgICAgICAgICAgICAgICAgIC AgICAgICAgICAgICAgICAgICAgICAgICAgICAgICAg ICAgICAgICANCiAgICAgICAgICAgICAgICAgICAgICAgICAgICAgICAgICAgICAgICAgICAgICAgICAg ICAgICAgICAgICAgICAgICAgICAgICAgICAgICAgICAgICAgICAgICAgICAgICAgICANCiAgICAgICAg ICAgICAgICAgICAgICAgICAgICAgICAgICAgICAgIC AgICAgICAgICAgICAgICAgICAgICAgICAgICAgICAgICAgICAgICAgICAgICAgICAgICAgICAgICAgIC ANCiAgICAgICAgICAgICAgICAgICAgICAgICAgICAgICAgICAgICAgICAgICAgICAgICAgICAgICAgIC AgICAgICAgICAgICAgICAgICAgICAgICAgICAgICAg ICAgICAgICAgICANCiAgICAgICAgICAgICAgICAgICAgICAgICAgICAgICAgICAgICAgICAgICAgICAg ICAgICAgICAgICAgICAgICAgICAgICAgICAgICAgICAgICAgICAgICAgICAgICAgICAgICANCiAgICAg ICAgICAgICAgICAgICAgICAgICAgICAgICAgICAgIC AgICAgICAgICAgICAgICAgICAgICAgICAgICAgICAgICAgICAgICAgICAgICAgICAgICAgICAgICAgIC AgICANCiAgICAgICAgICAgICAgICAgICAgICAgICAgICAgICAgICAgICAgICAgICAgICAgICAgICAgIC AgICAgICAgICAgICAgICAgICAgICAgICAgICAgICAg ICAgICAgICAgICAgICANCiAgICAgICAgICAgICAgICAgICAgICAgICAgICAgICAgICAgICAgICAgICAg ICAgICAgICAgICAgICAgICAgICAgICAgICAgICAgICAgICAgICAgICAgICAgICAgICAgICAgICANCjw/ qLQvC0croQPxupN9L5joZu1FEe8GAT1pg4TfHKHpAO aonoCiIrzVCdMxWNQnGdnTTbp7KOluBP3HwJOiN6FgK2QaLZthWS9EMIVmSJUhkWMwPTQpLQNoRbY6EX AjJOmcVU3IpRSlBQmpNRVhBBTxJdTwSWFtPEVpZNDdLKFjNSSCBRZxXXWrGlNpZNTvERKrVLlzBIAGLX Y2KRFjZiTxIRwrMR1Fe9NtpZO9QPy+Ww4EMV6mx9Ac GNeaEARiEU2uor6JLAfFHyBiU5TyeyR4BGTiBYXmJq8CBONnNWWwzKO0FWCgKQGSKpRmI5CcaE41ZDPZ Cj4+WAvhosUjKyhUWhUzRXDcf5GnQHg1EA9QTYAaWRp1nVLuKNZpF8Kmg0ZfZe96CQRxDvwfFGM0vhZr YQ3vYSUoJYGuJF9eiraeOCVqYJLcYS0uRh5hTLTeJB M5JhPzQWHDFW6MHFSpPIQdxNVgIJYrYSQPTS2XKKyyNQM5IUGraiZzoNHhXYpcZW1WKTQdzyFiBrnzHC BSDQo+Mv8VAM2wm2JzXSk4TQUlGG2psp0SGXnLQfUvQ7C4wMYxG0B3EQcjIu0LVSBeNDTkIyyxHRZLYJ pqWN5RYW5qrtN9BU0ZnCQnZYGvRNZtxGFlQLk8N05l lGTbRMuyGG6NHOK+Antelmo+Na8YERKbOAJsGPYiPmQdFDNGMcTrR4FmE5ZUa9FaP1RuVL00xGtqwxOlRMha OI2ELN9tKAEqROTZFL0RzMOfrV5oipZpQJLwDTKLCmMjJ22zjSIxHBFpGMS9LMQiRl8GOQYgU0AwkeMm xFsdogSqXWJbPOOZYH2HPJgfjlHucWEruLyvFE40xW swBB9IAw3QOxKlQE0rew9LqJYeGv7PWAO4Cm2LNVBeFZYtFZQhDJR3SADdHkLkTDegKYArRJUkNFO6DD DiLKHuSG6MOzBnDEKuODJ2IRRpVGBsJRVwwv0VNGJaDER2AwljCAQzHAKhAJQtFOwyHJGtKUZwQYQ7JD UwZKJvSU2VVgMyPVSePRIsCWWcOAYlSXPmxu6OYIWj GQNgCZR1IjNiALGcQSBuNHoqDDDxGQV0KeNlKBMwYRKlAO1DLvWrECAvRVu3ZYTyFHMyCMMybv3SDMUt UJJvWGE1TpDvVUDdZVQzXAlpEBGoKSZvQnNsLIZxMCRfXW4JMtCkONXoZBH1SKSnWKMfTCGeor4LDCDy HSQcJBZ0HuJuKOVxLJXqTWauBOVzVHZ9BbB4ENJyZU ZcNT9TLdRfXGXxJDF2XeVkIPIlYJPzui1SZZAlIACeSAK0FSTeCGLlXDIxQTrzUYEnJFSvDha2NWKdOT CeQD6EDpPkXKYqBtY1ESzpRLQgPEOmot0LXWMcRWCfOUkxDKBgXCBgKPHcNWjoXOMvPRX2CDn5GAQcRX PzFJ5THnYkIVBfEfteKQTyYQNpFGTods2PKLAeQEIx REW4GVXyNXRlDPErIUkqBWEvKOS0RTS7NAVrQUJwJP8HByCxUYYfVfw4BqSpRUSaMBCkdl7IJPNpYKCx IWJ2BBZuAGRbXXGbTCagNOUzQVLtDkjiSWIuUWJkYQ1VObKtNGVkIrL3RxisHEYkAJPtoi2YTGPfRDB5 ErD6WDSqGTCfUOYqLTekEXWiYPBbNqZ3UYTsKMGbLR 9IQpQhQOWsEDW9BtPqZHSfGQZyyr7EZETsWWK9LbR7GuQmXQGgCIVuIDmuMSYpMAXjGkD9LNGnSOBdEX 2YFbQqJWYrANAfAjQgPUElIRRgnh6UYTEqUZR7ZLV6JPPdYOAjGSBmIEhwQUVnJQU0EiH7QETuJHLlRS 8STaOiILFsFKX9MPQuGDLmHYFoyg3EMZDiNWC3LRu2 WBIzOFNjLUCpMBovMEPgXYW2QMV7JFRuNZVuFD8EKwYsIUAtVOEiRTIkFQJkVKCejc7RZJIwVRZ5Akp7 TuUrXUQaXBEvZHqwTVGvKBF9CEB2YVCwBGDvVB1AEcTbURNgLDimJHLmYIAzBUZwfx1StKZzbKauwz6T POlGWi4ZhRiiHPWnIQqsQb7boLY2DLYsOPDJJz8Skj NiEZGvQGIZZTlmLGFgYDX7RDVeF9DuH0VqZUMvQSGxJIkuQRV8WcR2EXN6ZLD7BhJ6JiGuXVQjOoO6CO ZgOZV5AUFjNGXbMFv1SNs2OLEaYDJ+QN1uTBa+Jr2Sb9AznhI1mpBwNKo5CSJ0HL9JWPDFY8WDOk== ID Date Data Source [id number] 07/23/2019 02:04:15 PM EDT [facility] Name Value Range Interpretation Code Description Data Lynn rce(s) Supporting Document(s) Progress Note [facility] QVJFKk8yYwDDTbAk38/YVGqrJQBta2UgRXitUSt3TFvzWQYcO2BsDFJ4pP6hLSY2VQnLOiOqSwGqPMO9 lbm [file] AwMDAwNzkxMyAwMDAwMCBuDQowMDAwMDEwODUxIDAw VLGdXB6OEaDuHNMxJECeYHHvRBXjSZWibx9RYLVoRUIhOxqcHCWkHEGxSCTwRNlyBEXeIWL5ONJ8ODJw URQjIP5SWbDdIIBbNMWjHlnzYNDeZIAckw1NZNPuONWxVwPkOqGoJBJxYZHjLFtuOYVtNPW9WNU3MVIs UOZtOD3GHoMzVJAgVEv5TDYsETCsWGTmzj2RTXHxQY ZtBHOlLxEyUPFcBKAeJUdpUXCyETN5YKU5UWIgHTWvAI1UKgYhFGUwTHq2VCPqMUMaKADsuo4GGYWsCS LcDYy2XOEsAHDeJQTzOLuvZUNzOYFoQBYfOEQxGBKzCG4DKrSaTZHbChXnQXDcQCGlLQGibz7FGEErAJ YpLxx2FQYqHJMpAQHvSTnhWVTeEQFqEPq6TZZzUZCg AM9BXwWfNRAyOwJkNDOfTUKwIDZuxu6ZPTJpHEZgQoE6YUYeOLCpDOCiCDotNLIuJNDnKiLeCKXkTIZy NM1JFlRoXSQfQgH5YNMhMOXrQZOitx5SJRRwPJSoCOqgYbEkPZVbTWQeHTdbVSPyKAO6KOMfHOWaEAQk BP8XHoLxTWMsAhH8GzmrREAxKJLxhw2OCZYyDAAfRl j1THRlQPZvDWSsILfkUQBhZCP7ZSkrGGMyURAiMY4VFvYaMAAiMpygCmSkDVQeIJJxar4ZnSGgtDbvuw 8MDMwXBw8QqIfxZES0ZRgsUc9zyWRdDSMjRATZFt0TexIbEOFgDWPAZSkqXNJeOBIiYbP1ZNVvCIYtCC D5CCAnJZbaCpusKKO6TrCzBWV1StF1Z0K1GtFlHHAz JAY5ZxB6OmKwSdE2WDM0AfnfTSNiXOt+AO3dEHh+Bz3Hk7WcrjH0cpQhPGnuIdS2Zi8AJKENB8DUCj== ID Date Data Source [id number] 07/23/2019 09:29:13 AM EDT [facility] Name Value Range Interpretation Code Description Data Lynn rce(s) Supporting Document(s) Leukocytes [#/volume] in Blood by Automated count 7.2 10*3/uL 4-10 [facility] Erythrocytes [#/volume] in Blood by Automated count 3.26 10*6/uL 4.1- 5.3 L [facility] Hemoglobin [Mass/volume] in Blood 10.8 g/dL 11.5-15.5 L [facility] Hematocrit [Volume Fraction] of Blood by Automated count 31.2 % 3 6-45 L [facility] Erythrocyte mean corpuscular volume [Entitic volume] by Auto mated count 95.7 fL 80-96 [facility] Erythrocyte mean corpuscular hemoglobin [Entitic mass] by Automated count 33.2 pg 27-33 [facility] Erythrocyte mean corpuscular hemoglobin concentration [Mass/volume] by Automated count 34.7 g/dL 32.0-36.0 [facility] distribution width [Ratio] by Automated count 19.3 % 11.5-14.5 [facility] Platelets [#/volume] in Blood by Automated count 348 10*3/uL 150-400 [facility] Differential cell count method - Blood [facility] Neutrophils/100 leukocytes in Blood by Automated count 41 % [facility] Lymphocytes/100 leukocytes in Blood by Automated count 43 % [facility] Monocytes/100 leukocytes in Blood by Automated count 10 % [facility] Basophils/100 leukocytes in Blood by Automated count 3 % [facility] Neutrophils [#/volume] in Blood by Automated count 2.95 10*3/uL 1.8-7 .0 [facility] Lymphocytes [#/volume] in Blood by Automated count 3.10 10*3/uL 1.2-4 .0 [facility] Monocytes [#/volume] in Blood by Automated count 0.72 10*3/uL 0-0.8 [facility] Basophils [#/volume] in Blood by Automated count 0.22 10*3/uL 0-0.2 [facility] Band form neutrophils/100 leukocytes in Blood by Manual count 2 % [facility] Metamyelocytes/100 leukocytes in Blood by Manual count 1 % [facility] Band form neutrophils [#/volume] in Blood by Manual count 0.14 10*3 /uL 0-0.6 [facility] Metamyelocytes [#/volume] in Blood by Manual count 0.07 10*3/uL 0-0 [facility] ID Date Data Source [id number] 07/23/2019 10:11:53 AM EDT [facility] Name Value Range Interpretation Code Description Data Lynn rce(s) Supporting Document(s) Albumin [Mass/volume] in Serum or Plasma by Bromocresol green (BCG) dye binding method 3.2 g/dL 3.5-5.2 L [facility] al Bilirubin.total [Mass/volume] in Serum or Plasma 0.3 mg/dL <1.2 [facility] Calcium [Mass/volume] in Serum or Plasma 9.5 mg/dL 8.6-10.0 [facility] Chloride [Moles/volume] in Serum or Plasma 96 mmol/L 98-107 [facility] Creatinine [Mass/volume] in Serum or Plasma 1.03 mg/dL 0.50-0.90 [facility] Glucose [Mass/volume] in Serum or Plasma 301 mg/dL 70-140 [facility] Alkaline phosphatase [Enzymatic activity/volume] in Serum or Plasma 122 U/L 35-104 [facility] Potassium [Moles/volume] in Serum or Plasma 4.5 mmol/L 3.4-5.1 [facility] Protein [Mass/volume] in Serum or Plasma 6.8 g/dL 6.4-8.3 [facility] Sodium [Moles/volume] in Serum or Plasma 132 mmol/L 136-145 L [facility] Aspartate aminotransferase [Enzymatic activity/volume] in Serum or Plasma 15 U/L <32 [facility] Urea nitrogen [Mass/volume] in Serum or Plasma 13 mg/dL 6-20 [facility] Osmolality of Serum or Plasma by calculation 284 mosm/kg 275-300 [facility] Creatinine/Urea nitrogen [Mass Ratio] in Serum or Plasma 13 [facility] Bicarbonate [Moles/volume] in Serum 24 mmol/L 22-29 [facility] Alanine aminotransferase [Enzymatic activity/volume] in Seru m or Plasma 17 U/L <33 [facility] Anion gap 3 in Serum or Plasma 12 mmol/L 8-15 [facility] Albumin/Globulin [Mass Ratio] in Serum or Plasma 0.9 [facility] Glomerular filtration rate/1.73 sq M pre dicted among non-blacks [Volume Rate/Area] in Serum or Plasma by Creatinine-based formula (MDRD) 62 mL/min/1.73m2 >60 [facility] Glomerular filtration rate/1.73 sq M pre dicted among blacks [Volume Rate/Area] in Serum or Plasma by Creatinine-based formula (MDRD) 71 mL/min/1.73m2 >60 [facility] ID Date Data Source [id number] 07/23/2019 10:11:53 AM [facility] Name Value Range Interpretation Code Description Data Lynn rce(s) Supporting Document(s) Magnesium [Mass/volume] in Serum or Plasma 1.5 mg/dL 1.6-2.6 L [facility] ID Date Data Source [id number] 07/23/2019 10:11:53 AM [facility] Value Range Interpretation Code Description Data Lynn rce(s) Supporting Document(s) Thyrotropin [Units/volume] in Serum or Plasma 0.482 u[IU]/mL 0.270-4. 200 [facility] ID Date Data Source [id number] 07/22/2019 11:10:56 AM [facility] Value Range Interpretation Code Description Data Lynn rce(s) Supporting Document(s) Progress Note [facility] GGSCQn3gVyHLRqJk17/JBXtaDGZjk7XaYNhxPDj7SIbvXTMdK5LgMYQ1uU1zCEF4HOcWMsQvJdXwMRC3 lbm [file] AwMDAxMjExNSAwMDAwMCBuDQowMDAwMDEyMzEyIDAw TUWhFS5GTxUhCWAbENJ2IXVjCBBsXVMuoc4LCXGpSEIfNeW8QAIpNIYmSDCxDBbtTRVuTBAjTfM1SMLm OSOlCH9EEhYuVCLiIET3DBUtJGXsQXMlef8EQIJdGYSjMPB9STXbPIVmIVFuMXxiPREcKCB7EXv3RWGl GHMyIO0IVzFhSQBvFeW2LVdbKOJiBNKjbo8IIKFaLZ EkStV3AIOqIBQtLDFgYXloXXNdDDO0AtW3HXZnFJUjIU1WPcTtUHKqIeE1VBGcQQBaHQZnnp4ACSAwDH ZvFCS0JSQmGONiRVLvIHueXFUyZGN7DHR1IFBaLRTbFJ7MTkCcAFTbMwmkEbUcQHDbDJAjej5ZmLPriT djyw1PJDkHSx1UfVrkKZV6YXllYj0uhTIxJVEeSUDG Dp2NfyJqJZQfEZJJNZcuEQFwLSWxOIFnKub1GIOiFsZvPFQmAjY7Man9RxppNtMsOTp3LwN9KvV6UyS5 ElE9YDM4BES5PKOjHrT4JKn6JUSrQSA4XGF+IE4kYBo+Ht5Mc6VmceN5ctXmVVzrMALpAF1ISZYDX5RH Cg== ID Date Data Source [id number] 07/14/2019 03:10:06 PM EDT [facility] MR BRAIN WITH AND WITHOUT CONTRAST [id number] FINAL RESULTInterpreted by:Brady Luciano MDEXAMINATION: MR BRAIN WITH AND WITHOUT CONTRAST [id number] INDICATION: History of small cell lung cancer with brain metastasis.TECHNIQUE: Multiplanar and multisequence MR images of the brain were obtained on our Siemens 3.0 Mitra Magnetom Tameka MRI scanner.IV CONTRAST: Yes.COMPARISON: MRI of the brain dated 05/17/2019. FINDINGS: There has been interval decrease in the size of a previously shown predominantly cystic peripherally enhancing mass in the uncus of the left temporal lobe. The mass now measures approximately 4 mm x 4.1 mm 4.2 mm in maximal AP by TV by CC dimensions respectively and by my measurements, previously measured approximately 9.3 mm AP by 8.8 mm TV by 10.4 mm CC. There are no new masses or areas of abnormal enhancement shown.Foci of increased T2 and FLAIR signal in the periventricular and subcortical white matter of the left and right frontal, parietal, and occipital lobes likely related to changes associated with small vessel ischemic disease are not significantly changed. The ventricles and cerebral sulci are normal. The basal cisterns are patent. There is no acute intracranial hemorrhage or evidence of acute infarction. Neither space-occupying mass, shift of the midline structures, nor abnormal extra-axial fluid collections are present. The pituitary gland is not enlarged. The pineal a nd cervicomedullary regions are normal. Normal flow voids of the major intracranial arterial vessels are identified. Imaged portions of the paranasal sinuses and mastoid air cells are clear. IMPRESSION: Interval decrease in the size of a peripherally enhancing mass with central cystic component in the course of the left temporal lobe. There are no new lesions shown.This document has been electronically signed by Brady Luciano MD on 07/14/2019 3:07 PM Name Value Range Interpretation Code Description Data Lynn rce(s) Supporting Document(s) ID Date Data Source [id number] 07/04/2019 07:56:29 AM EDT [facility] Name Value Range Interpretation Code Description Data Lynn rce(s) Supporting Document(s) Progress Note [facility] TPXPUt8cVqBXHxUz47/NWSxrTYVyu1HuWWteDIx5URewSNOcB8IsOTW3iX3dNGD4NZkZKfEkGxBvFKU3 lbm [file] AgICAgICAgICAgICAgICAgICAgICAgICAgICAgICAgICAgICAgICAgICAgICAgICAgICAgICAgICAgIC AgICAgICAgICAgICAgICANCiAgICAgICAgICAgICAg ICAgICAgICAgICAgICAgICAgICAgICAgICAgICAgICAgICAgICAgICAgICAgICAgICAgICAgICAgICAg ICAgICAgICAgICAgICAgICAgICAgICAgICANCiAgICAgICAgICAgICAgICAgICAgICAgICAgICAgICAg ICAgICAgICAgICAgICAgICAgICAgICAgICAgICAgIC AgICAgICAgICAgICAgICAgICAgICAgICAgICAgICAgICAgICANCiAgICAgICAgICAgICAgICAgICAgIC AgICAgICAgICAgICAgICAgICAgICAgICAgICAgICAgICAgICAgICAgICAgICAgICAgICAgICAgICAgIC AgICAgICAgICAgICAgICAgICANCiAgICAgICAgICAg ICAgICAgICAgICAgICAgICAgICAgICAgICAgICAgICAgICAgICAgICAgICAgICAgICAgICAgICAgICAg ICAgICAgICAgICAgICAgICAgICAgICAgICAgICANCiAgICAgICAgICAgICAgICAgICAgICAgICAgICAg ICAgICAgICAgICAgICAgICAgICAgICAgICAgICAgIC AgICAgICAgICAgICAgICAgICAgICAgICAgICAgICAgICAgICAgICANCiAgICAgICAgICAgICAgICAgIC AgICAgICAgICAgICAgICAgICAgICAgICAgICAgICAgICAgICAgICAgICAgICAgICAgICAgICAgICAgIC AgICAgICAgICAgICAgICAgICAgICANCiAgICAgICAg ICAgICAgICAgICAgICAgICAgICAgICAgICAgICAgICAgICAgICAgICAgICAgICAgICAgICAgICAgICAg ICAgICAgICAgICAgICAgICAgICAgICAgICAgICAgICANCiAgICAgICAgICAgICAgICAgICAgICAgICAg ICAgICAgICAgICAgICAgICAgICAgICAgICAgICAgIC AgICAgICAgICAgICAgICAgICAgICAgICAgICAgICAgICAgICAgICAgICANCiAgICAgICAgICAgICAgIC AgICAgICAgICAgICAgICAgICAgICAgICAgICAgICAgICAgICAgICAgICAgICAgICAgICAgICAgICAgIC AgICAgICAgICAgICAgICAgICAgICAgICANCjw/eHBh U6npcUPfysW3T2bbUy2HPk9ZIK2uw6WuXDNgMLxqixLgIzfILdDmBQOvWxoXTiz3KNupLF2PjUYdZ5Sc T0HbCFpsNF1QTZXwVWBpoGEzAQSfHIRnRlZ8GXTpJZpbMA2KfFIeYLotEYOeSMVjDY3NCUOqI622tnYm QQ9ZBi6NPaAcXU5hly1RWFueOKUrQebUMgw3ZGzvJK 4HlPYwkRNvCSPqTRABPkPnJ4cds8OdEgCpMDGJGLuwLH0Uv6BrrQElVJk+Ee8VUO5oz0PqDDupZCOeNW 1lyt1VQAnDNoYwH9GufPbaPIMis2fnVFBaNR3rxXMmOVO8SHZqgj5apdMgIcKFh1zag4eyJO6BTPN6XN LrJs1pNHBvOVHeWaIkPMYLOR3VZUEwYZMkuVWiMESu IKUZKK5WZLpxMAX2CVJkrdBvvLVgEVhzFT8KSOKymsEjVYvzEHMFQCm+Yp6PYQ2sz5GtMWodHZFmXU5n ym4YCPiJFyTdE9V0xDWbO1K3LJzyPx8TZAZqMPZaZRshWMAUODicCT4SHY9idaJ7TM7FiVLmMTHxENUg oCYwRZx3M33tgQVeWShaGT6AWVP+Antelmo+Zw0NDFIrJE LsCCSiNeNvYPVSDgPrI6ErA3MTp3VkE1NgMF71oVuqulNiRJzlHM5UPG7bXQLnHENKRS1OjCAahC7rih KxUADnOQLKIyFsH42ryERpCAIsFTD7DTDrLd9STYGhE8XtzuUflHtfgcIaEAJeARMURN6XCDobtwRtoB MgoQleRF16cEtgHV2YDb3EAaFmLA4qwj8KcUNbEn3F KYVkXe4ISEStPNZcJZPzDWP3EGKvJkKsFVzuGVNoXAQkOZW2FPFzFAOnHG3XPiImVMUsSFD0OUKlAYNo KITxoo4VHJVmPYBbUCOpSGQdNOGbRWXeQIogGQMvQOQlHVI3CPUeXTFoEN1YLcYsLGGoREA4NvewMSJr TBEesm7ZIAFiQPLxTDpvGqNhGAQqWQQsRDgqGGJkID SjLxvcBDOeFUZsXV3BAbFnJDSsTGC0UXtwQRHvKYJfyg3NNCKyHZWsOcE9IyOyUBEmDOSyTLqlLHHsNP S9SLJ3PWSiDGHoCP3CVlLtVJGfNVZxJeehJGBrRWKdqs6IPGXgREYqXVMuLPHpZOYfKBDpMNexKKSmYQ B5CGM8SFUrGIKoTU3URgVpVIRdMJVyJHPxRCExBQEw tu2AVINrGLOcQjS1MLCfDNJcEGQzCAjbHMAqAZU6UzG0FHQbNVDpQM8ALgGoSBIpKAR1MFAoOUAyFIMk ox2YDLOaSNCgKmP2KDRhKNPsPGYbVXqySBBhFDV7QsT6FXQoBGGnAH4UNbOtBPWuTPk0DFjlFQWyEVTy mp0IKKRhHLIiRZgkWOOwUZUvYRXqNFw9rhTygNMiPJ x0KX5HG4LoiqOmCaLONw0Xe970LGQtGLXqMg1UG8ndKz5yEXQhSLYCCh0SKUk0AiV7LPD4RHF7AVJ4Bu w8OiE8BBDiOHr6HMttRpikRQF+CCg9WYrwGnb6BhYkCLofLeWmSxraFhX1MAHfRRIbOYY9Lb0dNOVUFb 4+DAjxpMXahRivBHFSHeT8VNlvILivCZKEWx1Q ID Date Data Source [id number] 07/04/2019 07:56:24 AM EDT [facility] Name Value Range Interpretation Code Description Data Lynn rce(s) Supporting Document(s) Progress Note [facility] MTYGWd8bMbJYEtNl65/JQXooGBOod2VpIQemLNk0LVrhUAXkC7CzIIB7nR2fODL6OTeBZkIrXnGaXLC3 lbm [file] AgICAgICAgICAgICAgICAgICAgICAgICAgICAgICAgICAgICAgICAgICAgICAgICAgICAgICAgICAgIC AgICAgICAgICAgICAgICAgICAgICAgICAgICAgICAN CiAgICAgICAgICAgICAgICAgICAgICAgICAgICAgICAgICAgICAgICAgICAgICAgICAgICAgICAgICAg ICAgICAgICAgICAgICAgICAgICAgICAgICAgICAgICAgICAgICAgICANCiAgICAgICAgICAgICAgICAg ICAgICAgICAgICAgICAgICAgICAgICAgICAgICAgIC AgICAgICAgICAgICAgICAgICAgICAgICAgICAgICAgICAgICAgICAgICAgICAgICAgICANCiAgICAgIC AgICAgICAgICAgICAgICAgICAgICAgICAgICAgICAgICAgICAgICAgICAgICAgICAgICAgICAgICAgIC AgICAgICAgICAgICAgICAgICAgICAgICAgICAgICAg ICANCiAgICAgICAgICAgICAgICAgICAgICAgICAgICAgICAgICAgICAgICAgICAgICAgICAgICAgICAg ICAgICAgICAgICAgICAgICAgICAgICAgICAgICAgICAgICAgICAgICAgICANCiAgICAgICAgICAgICAg ICAgICAgICAgICAgICAgICAgICAgICAgICAgICAgIC AgICAgICAgICAgICAgICAgICAgICAgICAgICAgICAgICAgICAgICAgICAgICAgICAgICAgICANCiAgIC AgICAgICAgICAgICAgICAgICAgICAgICAgICAgICAgICAgICAgICAgICAgICAgICAgICAgICAgICAgIC AgICAgICAgICAgICAgICAgICAgICAgICAgICAgICAg ICAgICANCiAgICAgICAgICAgICAgICAgICAgICAgICAgICAgICAgICAgICAgICAgICAgICAgICAgICAg ICAgICAgICAgICAgICAgICAgICAgICAgICAgICAgICAgICAgICAgICAgICAgICANCiAgICAgICAgICAg ICAgICAgICAgICAgICAgICAgICAgICAgICAgICAgIC AgICAgICAgICAgICAgICAgICAgICAgICAgICAgICAgICAgICAgICAgICAgICAgICAgICAgICAgICANCi AgICAgICAgICAgICAgICAgICAgICAgICAgICAgICAgICAgICAgICAgICAgICAgICAgICAgICAgICAgIC AgICAgICAgICAgICAgICAgICAgICAgICAgICAgICAg ICAgICAgICANCjw/sPIvH8komYGjyeP6B3mrOb0JPn7WXP7vc0ThOGPhSWwakgJjWutMRrUdJADqTgqV Yfr9CDfxQY1VuYOuY9AiB6MkIEakDW2SATYsLIWlwHRtTLGlGDJnOrE6BKKaYCpcDS0IyAJbWBcrFDPo IFIgNyAwIFIgOSAwIFIgMTEgMCBSIDEzIDAgUiAxNS ThKGFiIIptVSYMKOI4CZQrOdGoTNanQR4Er9OxjUX8QPd+Nd2PCF8vr6XrNDkoFPJlDX5vhi0LXSgWHm XjV7OqydP7QCDxPEMdEl1WUMRbMAGpvVD5RYPiAJPHLpAaC8IvmM09LUUPMp9+DQplbmRvYmoNCjQwID Edo2FkDMq2DS2DDUDxXNk0lEXzAKQzF9Hhd8WdLo38 URVwFhxrNBL4ecZpQB0uRYCbIRElAU7gqajrDCNjBXRjTA92CcTuVrWaTID8WNMuBL7jDEpbTV2WIHW0 NKuwAPNlBVJtQ1uPCzCsZIOsHtAtlPbfEC3QRvNzA2InssUciDWoUAGrBFUTAs6+DQplbmRvYmoNCjQx RZIoy9ZbCGt0HD6MYOGxTArqWA7IXVIgcN5rFHzvGE 8BIgIkBxUbMLKWHqXxD11ppEKnEDf0T7PeMbSmUCQhRpmfVZMhFYjzNrCcCVAhAkKuTXbvAH0+ID4+DQ bdEO3TLSaxmiVjTDWdQq4AZNBsRMUbWK7iZOCgXDIlD0J5bIlpYSYEWrMuQ8zjmfgiHB0sEVItT830bO xtxcWrTAG5UBEpGf5GRGYbUYS6JBNjaYZlOgoaPTTL NXrdHN6CjEWqWBR4aZ3uDFjhEGTuPXUiR2cMDhUifYrgXJ91cJvsehRptMIcENr+Tr7DLS2ae2GnLKw6 luWdAHeoVZRtYSmfMZIyDQGqZFMbWJW0YRV9KFLOOfKjXWVvLCVmVKjkRJPzLQCwpg4GNONwVYF6UMD4 DUVgIZMpFSMhOYfbBVUwKOG8VYOyCUCgYDMnEB0TXl KbQOQrFNGmFJmkCYVrYWLruj7FZTMfDXMdXCI2GcVfFFSsUXLsCWovSPZvTLW6PGWyHKGxUHVzHF0DDg SvOCHpVYdwHwZxSZFjEJDswa9JIWBdBZXbABGqFXXoMRLyBQBxLOqdZDHpQMUoUdNcCHCoLWGkWH5PUr EnSSEcFBX6FKGhCPZuTDQlqz3NTTTuLKHdWCO3AMGq XZXvYDAuSNckLWXwVLE9WeN5FCLjTZRlAO3GEgDiHCNbWJU9GNVlMMEqZLOkpy7COXUuFLLdVqM6UXVg FOEwTQYzIWjfZUDbURDtMemlCGEzXVHsHD1TZlWqOHBdLmJ2CIvpOBTqEIActv4PCSTmHPXuPWKvIQJg UVUfYONePKleKMGfWNA5FrX4CQTkWBTiPD2SLwAaOM CwUpO8EJFoQRFjWCSehp9MYOZuMQSmJae2UJBsTVWqDCTqBNmkBKUhNFL7DJApGHQiBOPaJJ8ERzPtDE JrUuiaZPcrUSSbJHVkto2LIJDsMNFiRIQjVKZwORGgQUXvLRsqLUKbLCE9YfP9IWKeVOEsFZ5EKsCuHL DlDkz2JoDbKURdMSUqee2ICBLzOFLcHVS6POQaAMWw TNXpWKyxZWGgSDWrRQb1YVBtPXHvON9LRoWxUMXoHKQ5AKRkVFPcVMEovg2GBCZySNH3QNNeAbTnAWEu FRUbTJorUKZzFRHzJNBaKCUmCMUgXD0OYpUbYZVlXXEvTZojFZFnOPFllm7JTYJzKZK3Tsi6VpXvZAMb VABzXHbsSWCiJYFlFLK3NUOxECWgYB6VQnVlNRIdWX MvJppsIBWhALLohy3EFTGwLES9VJP9AjOoJIGtDBSsSHgrRBRlBAB1JMJqNDEuJIOcPP3NAlSrTVIhVD D6VytjAMPiFZFknj7VPMNrHMT4OSA7NBJnBRVpMENqGPvbPVTtNPO9HEO4PFWtSLKjPF1PTuXtCGXgGO S6UztwXYYhWZJkxz9INOShMMW5Vaw4TCLdYQBkOPIs FBa5bbJnkSLePOh0MQ3UE5VslpQhWAQGDg0Yc387ZNKoCJWpVw4SS6ntKb1fDRTwJVYHLd1MMQk9PnXy ZbApHhPgZ6I6GYDyBGVoKvGcARXhPJHyIXV8GnW+ZBk1IAXsWGLrTkLrZgY4GDCoQfR5J4ZfDSFpOiNu RUY9HH9iAWMHDh6+SUmvsCPmfRxzZOUGNkH1UGN2QWskMOKKDn5W ID Date Data Source [id number] 07/02/2019 10:19:26 AM EDT [facility] Name Value Range Interpretation Code Description Data Lynn e(s) Supporting Document(s) Albumin [Mass/volume] in Serum or Plasma by Bromocresol green (BCG) dye binding method 3.6 g/dL 3.5-5.2 [facility] Bil[facility].total [Mass/volume] in Serum or Plasma <1.2 [facility] Calcium [Mass/volume] in Serum or Plasma 8.8 mg/dL 8.6-10.0 [facility] Chloride [Moles/volume] in Serum or Plasma 98 mmol/L 98-107 [facility] Creatinine [Mass/volume] in Serum or Plasma 0.86 mg/dL 0.50-0.90 [facility] Glucose [Mass/volume] in Serum or Plasma 264 mg/dL 70-140 H [facility] Alkaline phosphatase [Enzymatic activity/volume] in Serum or Plasma 111 U/L 35-104 H [facility] Potassium [Moles/volume] in Serum or Plasma 3.6 mmol/L 3.4-5.1 [facility] Protein [Mass/volume] in Serum or Plasma 6.7 g/dL 6.4-8.3 [facility] Sodium [Moles/volume] in Serum or Plasma 137 mmol/L 136-145 [facility] Aspartate aminotransferase [Enzymatic activity/volume] in Serum or Plasma 16 U/L <32 [facility] Urea nitrogen [Mass/volume] in Serum or Plasma 12 mg/dL 6-20 [facility] Osmolality of Serum or Plasma by calculation 293 mosm/kg 275-300 [facility] Creatinine/Urea nitrogen [Mass Ratio] in Serum or Plasma 14 [facility] Bicarbonate [Moles/volume] in Serum 24 mmol/L 22-29 [facility] Alanine aminotransferase [Enzymatic activity/volume] in Seru m or Plasma 22 U/L <33 [facility] Anion gap 3 in Serum or Plasma 15 mmol/L 8-15 [facility] Albumin/Globulin [Mass Ratio] in Serum or Plasma 1.2 [facility] Glomerular filtration rate/1.73 sq M pre dicted among non-blacks [Volume Rate/Area] in Serum or Plasma by Creatinine-based formula (MDRD) 77 mL/min/1.73m2 >60 [facility] Glomerular filtration rate/1.73 sq M pre dicted among blacks [Volume Rate/Area] in Serum or Plasma by Creatinine-based formula (MDRD) 89 mL/min/1.73m2 >60 [facility] ID Date Data Source [id number] 07/02/2019 10:19:26 AM [facility] Name Value Range Interpretation Code Description Data Lynn rce(s) Supporting Document(s) Magnesium [Mass/volume] in Serum or Plasma 1.3 mg/dL 1.6-2.6 L [facility] ID Date Data Source [id number] 07/02/2019 10:20:54 AM [facility] Name Value Range Interpretation Code Description Data Lynn rce(s) Supporting Document(s) Leukocytes [#/volume] in Blood by Automated count 12.2 10*3/uL 4-10 H [facility] Erythrocytes [#/volume] in Blood by Automated count 3.76 10*6/uL 4.1- 5.3 L [facility] Hemoglobin [Mass/volume] in Blood 12.1 g/dL 11.5-15.5 [facility] Hematocrit [Volume Fraction] of Blood by Automated count 35.6 % 3 6-45 L [facility] Erythrocyte mean corpuscular volume [Entitic volume] by Auto mated count 94.7 fL 80-96 [facility] Erythrocyte mean corpuscular hemoglobin [Entitic mass] by Automated count 32.1 pg 27-33 [facility] Erythrocyte mean corpuscular hemoglobin concentration [Mass/volume] by Automated count 33.9 g/dL 32.0-36.0 [facility] E[facility] distribution width [Ratio] by Automated count 15.4 % 11.5-14.5 H [facility] Platelets [#/volume] in Blood by Automated count 392 10*3/uL 150-400 [facility] Differential cell count method - Blood [facility] Neutrophils/100 leukocytes in Blood by Automated count 53 % [facility] Lymphocytes/100 leukocytes in Blood by Automated count 31 % [facility] Monocytes/100 leukocytes in Blood by Automated count 7 % [facility] Eosinophils/100 leukocytes in Blood by Automated count 1 % [facility] Neutrophils [#/volume] in Blood by Automated count 6.47 10*3/uL 1.8-7 .0 [facility] Lymphocytes [#/volume] in Blood by Automated count 3.78 10*3/uL 1.2-4 .0 [facility] Monocytes [#/volume] in Blood by Automated count 0.85 10*3/uL 0-0.8 H [facility] Eosinophils [#/volume] in Blood by Automated count 0.12 10*3/uL 0-0.5 [facility] Band form neutrophils/100 leukocytes in Blood by Manual count 3 % [facility] Variant lymphocytes/100 leukocytes in Blood by Manual count 3 % [facility] Myelocytes/100 leukocytes in Blood by Manual count 1 % [facility] Metamyelocytes/100 leukocytes in Blood by Manual count 1 % [facility] Band form neutrophils [#/volume] in Blood by Manual count 0.37 10*3 /uL 0-0.6 [facility] Lymphocytes [#/volume] in Blood 0.37 10*3/uL 0 H [facility] Myelocytes [#/volume] in Blood by Manual count 0.12 10*3/uL 0-0 H [facility] Metamyelocytes [#/volume] in Blood by Manual count 0.12 10*3/uL 0-0 H [facility] Anisocytosis [Presence] in Blood by Light microscopy [facility] Polychromasia [Presence] in Blood by Light microscopy [facility] ID Date Data Source [id number] 07/02/2019 11:16:06 AM EDT [facility] Name Value Range Interpretation Code Description Data Lynn rce(s) Supporting Document(s) Thyrotropin [Units/volume] in Serum or Plasma 1.180 u[IU]/mL 0.270-4. 200 [facility] ID Date Data Source [id number] 06/17/2019 02:09:39 PM EDT [facility] Name Value Range Interpretation Code Description Data Lynn rce(s) Supporting Document(s) Progress [facility] UVSQAa0lGiDBAyIk68/GXBwsVFTgk1EsRCqfWOn4MEogWZRjT9YpLCN7nT6yGSX8XOhOBsUyMtRdCLBi [facility] [file] ICAgICAgICAgICAgICAgICAgICAgICAgICAgICAgIC YrMEMjGRHhZGDgSXWoEQEjJQJhDKPfFXFkFKNoECXuNNRuKQHxPOOoLGXbDN6EFTTyGOPjVMIfQXMdBY AgICAgICAgICAgICAgICAgICAgICAgICAgICAgICAgICAgICAgICAgICAgICAgICAgICAgICAgICAgIC BdJFGcIUBtLIYcSGOwGGWoNSYpLPXjILQoVS7PQWOl ICAgICAgICAgICAgICAgICAgICAgICAgICAgICAgICAgICAgICAgICAgICAgICAgICAgICAgICAgICAg FAMgAKOxFSWrYKCqSAEqXGBxKCBrVLPxSWNsZEXlCCBaEUKwEB0RKKYvGVWbZKFkQOYyBODvJPJfMKGn ICAgICAgICAgICAgICAgICAgICAgICAgICAgICAgIC FdCQSqESNcEBFyLLTbZRFcXLSoTIHrMKGxQUBuUAVtPMObMVKxPSCoUOZcULCtHR1WJNOxWOVpTZVcZM AgICAgICAgICAgICAgICAgICAgICAgICAgICAgICAgICAgICAgICAgICAgICAgICAgICAgICAgICAgIC YxJNLjGKZkXTMzWTGhHZIrUSUiRVTqDZSuWHHcXL7G ICAgICAgICAgICAgICAgICAgICAgICAgICAgICAgICAgICAgICAgICAgICAgICAgICAgICAgICAgICAg AIVnDHEmFRLoWBNuGMWlVWXxMCCkLCUmUIHuICPfUGEeSKWjRIMbCI0DIWQvULXlILPbXHGdZMZtOZEs ICAgICAgICAgICAgICAgICAgICAgICAgICAgICAgIC XuXQTkXHVrNNVvRKVjKMRiVHTrLAQpKDWpNCXpRVLgPFHwZEVcCXViXDFjDJSiJEAwZQ1WNAQgFKOiAX AgICAgICAgICAgICAgICAgICAgICAgICAgICAgICAgICAgICAgICAgICAgICAgICAgICAgICAgICAgIC AgICAgICAgICAgICAgICAgICAgICAgICAgICAgICAg AM9MHETcJCEqYVQjKXAgIVVlUTFeSKOsFWQdIYQrWYMdHBDqRDJfMCWmYWMvDHTnUGSlXWMnVWKfGBNd RVFtKGZnTOWhGQKnOFQeTVBmEWTtBMAgGQLdGQMzJIAsQNGvCYSpMKXgQM5LSXYxMVQcRWTfEYRwZCOi ICAgICAgICAgICAgICAgICAgICAgICAgICAgICAgIC GsRWEhPEGbAHHnDUIvQKUqZEUkGXTsTLZsBGFcCEQoLQCvHPYeXOWcDBHxSRHhQEQzXJJoCK8DSL41bK Eit6V7LMHyHM9wzlx/Fd9KMAidmiKjkDIsGF3TBpYwVX0qzb4XBdDpHY2srf5WGHeLEqSyP6I0zIRuNK XrHJPFEeEgC97nJKudXf69RShsYXNzDlOvMRr0Dt7F CwPcV9yoJJOvNiG0SASjWaN5BOKoZmU5RGZbOwCfFXhkWK3Nk1HgfYCpOQg+Dv7EXH8vk8ZkHVxbZZXo NT3yzy7FJNdEEdVqQ2FavnU6SOAfOFOdIt6VYMPeUIVfiIWqYEMtRTXYGxAgU0TniA09BEJLEf5+DQpl ghUeEssXNvAfEAFtb7IwLLv0PK6NDZFaHAc4zXCrJB IdH8Ifq8RjVh20WPMgBfbkWJlwbXXwvHSOUE6bhKzlJXQkUHVmFY2nMO0eGXGsGAFzYkFeUGCYHF8OMC QxCWAkaFSrFXBvNIKPDP3WQZsfMJV6UIYrwgBbyPJgUKplRZ3AZLGnciSrIqeaIFUMENb+Sd1HIA1va6 VsBKcaOWTvFN0yhj4RLTuFLzEbB5Z1nCSrO7W4GClh Pl1VARIcOWKsLrnsPCGJHPpjNX9MWQ0pjbS6UI6OfAUvMOToFDMzzMHoZRb5X13rhCWhZVzoPA1DJEA+ Antelmo+Qj5DFJOwXZFgMNOdBySeITBIDaKvQ8ZaK3GWi6HqV0SaTY40bJthtlSbKWtxXF1YDI4xGNDcDBZV QV6NjCAimC3obmCnPDPjXOQFGmAkL46qkPIuRSQjZV R1ZNXpRz3WBPDnV2FtrmBdjGtvpyVuKBNhFIZYYW6ZJSrvgvIuhYSfeKteXU89nXguJT4VDl1ARhVuLQ 6ijq6ZhUZdLw9VMJQfZp0EWCJuYDDdKQRyGTC8JISnFyTjGOegRUViNGQiJVY6DVAeXBIyPJ3WLpQfLY AyPpV9TwbeEFXuVYRqgh3NOAMcUNBqEFMwUCHvLCLt DGRxRYgyXQLnYUSpNXV0CAGoWKRyDC6HXbLtWMCsUOD3EbFrJMVuMROowo1LEDFkOJYsGod4ZDYsSNXv XYIfJWfiAMNvKBN3DHS3HSRpCGCyVS9HLdDkLSKvRPilJobcYOZaIOMwpe2BBQXoLRFqCVz1BfRdTEOs LJDfZLopIYRsCUX9CZx0JJMwBZIoPN1KEmYhKOXsCY GnKLKhMTZdRBIoff2SXXNxUQEpQRY5HzAcPVWbGKOvNPncMKZjDDAnITE1ASUwDUJfUT7SSzDhLQVzHC IlHAWpBAKfHCVgwf9AKAWvGDDkVTT2GwEoZQYlDKKsSRwfWLPwMKQzFcc0IWUxXOYjSX8IBvVaFHAwCu QpVCXvPXQiKRQasl9HQAScOLCrUfG8MgHqMSNxJGVn KQgcAVJqRICaTkT8NLBxRKMfIH9BZdFsSVExBtN9YUGpWGPxNALjlp7PSPZqXQGvXQM1EYRiESTwGEGl SYwfXJQpMTE3PXzrGGJvHEOnRG1EMqGiTHWdNeNnPrVeQCNwHGEbvd7RFXNmTVAoJMJ7ZUTxHMWbQBAm IAzhNPPpQRC6BmsiQUXwBQTkKJ7KTnCfMKAaWnZ4Xq ttNEKnAZOmwx4OPARzHSZwYfP5NBTkOPIaBHZlHEnuEEMeASP2RWd1NBVeNSEnGD7SEnIaIAAlYwf1Wq psMMLeZEMovj2FKKElLPFwTIGxXKXhIUGwQKFqLPfhJKMmKIP2AgO3ZAGwCJEdSZ7JBrOgDVmnQPXXAo d8ANmyI1z7EZMtLx7DU8Xwy8FxFjQoJFIZFZneRU9h poZlJGPcDn4SH1jPJewxEFUsYPGrUjJ8QAHhHXUnLExpHMU3SjQqJMF3XlHvJB6lBMFlH7W3TGIsOwt0 IbG7ZVMcW6SqLWqkT4L8MPX6XBB3JrKuHR3QRr9WPxU2RNK1cEWjLd2OOwkkGLGRXgBfKL3KRHf= ID Date Data Source [id number] 06/16/2019 07:00:00 PM [facility] PET W CT IMAGING SKULL TO THIGH [id number] AL RESULTInterpreted by:Azul Olson MDINDICATION: Small cell lung cancer, restaging scan, assess response to chemotherapy.RADIOPHARMACEUTICAL: F18-FDG.DOSE: 12.1 mCi.BLOOD GLUCOSE: 7 mg/dL.TECHNIQUE: The study was performed at the [facility]. Approximately 60 minutes following IV tracer administration, positron emission tomography was performed from the vertex of the skull through the proximal thighs. Non-contrast helical CT imaging was performed over the same range without breath-hold for attenuation correction of PET images and anatomic correlation, but not for primary interpretation as it is not of standard diagnostic quality. Images were reviewed in the axial, coronal and sagittal planes.COMPARISON: CT chest and abdomen pelvis from 05/14 and 05/16/2019 and MRI brain 05/17/2019.FINDINGS:HEAD AND NECK: There is normal distribution of F-18 radiopharmaceutical in the visualized brain with no evidence of abnormal radiopharmaceutical uptake. It should be noted that a contrast enhanced CT or MRI is more sensitive for evaluation of brain masses. No definite evidence of abnormal FDG activity in the region of the previously seen left uncal metastatic lesion on prior MRI. The thyroid is enlarged, goiterous in appearance with diffuse intense FDG uptake including a midline soft tissue focus anterior to the thyroid cartilage. CHEST: Conglomerate of FDG avid matted lymph nodes extending from the right high paratracheal and lower paratracheal stations, max SUV of 7.6 extending down to the subcarinal and precarinal stations with mild to moderate FDG activity. Right hilar lymph node with increased FDG activity, and an SUVmax of 7.8. There is no pleural effusion. Small pericardial effusion is noted. There is no air-space disease or suspicious lung nodule.Focal FDG activity noted posterior to the inferior sternum along the medial supradiaphragmatic margin and may be related to prior procedures along with medial periumbilical incisional ventral subcutaneous abdominal wall changes with diffuse FDG activity.ABDOMEN/PELVIS: Below the diaphragm, tracer is distributed physiologically in the gastrointestinal and genitourinary tracts. There is no significant lymphadenopathy and no FDG-avid disease.Subcentimeter left periaortic lymph nodes without significant FDG activity noted just inferior to the left adrenal gland.MUSCULOSKELETAL: There is a small lytic lesion in the left posterior acetabulum with FDG avidity, and an SUVmax of 5.3. Moderately FDG avid lytic lesion involving the posterior right L1 vertebral body, with an SUVmax of 4.3A sclerotic lesion with focal FDG activity measuring 0.9 cm in size in the L4 vertebral body is noted.IMPRESSION:1. Conglomerate of matted lymph nodes in the right paratracheal and anterior pretracheal stations extending to the subcarinal and precarinal stations consistent with known malignancy. These lesions have decreased in size since the prior CT from 05/16/2019.2. FDG avid r ight hilar lymph node likely metastatic in etiology.3. FDG avid lesions in the L1, L4 vertebral bodies and left posterior acetabulum consistent with osseous metastases.4. No obvious abnormal FDG activity in the region of the known left uncal metastatic lesion.5. Thyromegaly with diffuse FDG activity, likely represents a goiter and possible inflammatory thyroiditis. Further evaluation and characterization can be obtained within thyroid ultrasound. Continued follow-up is suggested.This document has been electronically signed by Mike Portillo MD on 06/16/2019 6:57 PM Name Value Range Interpretation Code Description Data Lynn rce(s) Supporting Document(s) ID Date Data Source [id number] 06/12/2019 08:13:51 AM T [facility] Name Value Range Interpretation Code Description Data [facility] rce(s) Supporting Document(s) Progress Note [facility] EVMAEe0qBmQPXvHb64/QVIjgAGRrk8DkVCtnRXx1CAxbXMJdN5UbMTR7qN8nVIB5FEvDBgTfUbPhOEB3 lbm [file] AgICAgICAgICAgICAgICAgICAgICAgICAgICAgICAgICAgICAgICAgICAgICAgICAgICAgICAgICAgIC AgICAgICAgICAgICAgICAgICAgDQogICAgICAgICAg ICAgICAgICAgICAgICAgICAgICAgICAgICAgICAgICAgICAgICAgICAgICAgICAgICAgICAgICAgICAg ICAgICAgICAgICAgICAgICAgICAgICAgICAgICAgDQogICAgICAgICAgICAgICAgICAgICAgICAgICAg ICAgICAgICAgICAgICAgICAgICAgICAgICAgICAgIC AgICAgICAgICAgICAgICAgICAgICAgICAgICAgICAgICAgICAgICAgDQogICAgICAgICAgICAgICAgIC AgICAgICAgICAgICAgICAgICAgICAgICAgICAgICAgICAgICAgICAgICAgICAgICAgICAgICAgICAgIC AgICAgICAgICAgICAgICAgICAgICAgDQogICAgICAg ICAgICAgICAgICAgICAgICAgICAgICAgICAgICAgICAgICAgICAgICAgICAgICAgICAgICAgICAgICAg ICAgICAgICAgICAgICAgICAgICAgICAgICAgICAgICAgDQogICAgICAgICAgICAgICAgICAgICAgICAg ICAgICAgICAgICAgICAgICAgICAgICAgICAgICAgIC AgICAgICAgICAgICAgICAgICAgICAgICAgICAgICAgICAgICAgICAgICAgDQogICAgICAgICAgICAgIC AgICAgICAgICAgICAgICAgICAgICAgICAgICAgICAgICAgICAgICAgICAgICAgICAgICAgICAgICAgIC AgICAgICAgICAgICAgICAgICAgICAgICAgDQogICAg ICAgICAgICAgICAgICAgICAgICAgICAgICAgICAgICAgICAgICAgICAgICAgICAgICAgICAgICAgICAg ICAgICAgICAgICAgICAgICAgICAgICAgICAgICAgICAgICAgDQogICAgICAgICAgICAgICAgICAgICAg ICAgICAgICAgICAgICAgICAgICAgICAgICAgICAgIC AgICAgICAgICAgICAgICAgICAgICAgICAgICAgICAgICAgICAgICAgICAgICAgDQogICAgICAgICAgIC AgICAgICAgICAgICAgICAgICAgICAgICAgICAgICAgICAgICAgICAgICAgICAgICAgICAgICAgICAgIC AgICAgICAgICAgICAgICAgICAgICAgICAgICAgDQo8 U9kpKKOzDJKkXJ4dWMc8Lg3+ADoDAlKrUZL4jcWaoC8TDC7cg0VhMRreNUNbj2QnKPf8QQ0TVXOyRNzb GW1ZDHvxoj8KMCZkZRNvyISKx4tgBnNpDAF0OTQqNpwzMG4MSXGaM0oebmFrINZuOVCIDE5USgBvG4Kb xY78YSXXNl0+DXkkjsBiZjxZYeZ8ZWScp7QrWLb9BA 5LKSFcGzsfs8UqRuGiQKLGNQokAH4AKXM7IDOpCYVkIh8KIVFuK448umReDF8HFj4DAiWyWN9bcw6RKm AmHJVhOpxCYpg7AEkeNF3KaTNdRSeZfz0unkSxqoQFk7LovkQlrQEQSEAgTXZuIOtlWD8oYST6WDJFHO VqnGX7IaF6OtCrWgFfEBs0GLUyKT3gITkgDK9INBA4 EYtgWUOfOFCtO9fINhQjOWFdOjHiiSbqQW2PNgXuJ0SucoKuqIHwKEQyHDYWCo8+DQplbmRvYmoNCjIx XNBwy4FbLKc4KZ1APNFuQEkkLF4ZWOLzqB2tQEutHD0YUqGgXmZkFAJONzYtA45bwCFzOAl2Q6PcMeNx ZGVkRmlsZXMgPDwvTmFtZXMgWyBdDQogID4+ID4+DQ uqAK3FCCxwvyRiBHAgCl3PEQBuQFGrPO4sVZJbRWJqD4P3sFznNSHTQqWjU5ukjqbeMI4tTILrQ080lO wnryVpNUE8CHQgGk8SBUQpKHU7PTMjcUMcEMviNMDBWHooAW5SmEUpEGQ8lX6sIUneONSnXYMoF2lYFe TtzWfvPJ81pMvpuhFoqBImDKu+Lm0QMS1so8PtHTx6 mdIpMYtgTTTbJXzaXMTzTWZxDAOrAWL5UKH1LDXYLnHsLRRfIJHcTOqdOMFbBNUjwn4FXTSeZAOtQdtm ItJaYJSrZPZkKHgoVQTgWGP5NYC3IIMyJVYjER8MEqNtTERuQBPuWAopKDFzUHLqbj0DSPHiUMLoLQAf PaRyENWyYCFnNNrsBACfTGShOVI6HQAwAMRoIB9TFr BoNHTbQKN8BXLuPROdGVBrjm0RNVVcJJCyIaz6QUFeQLKkPVQoZZxnTZWsQGDaPJqcEJKyOBToLS2JAi XmBGKhHNGeSbwmZICxUNOojh3JVWZbLZWrENNyRCYnSCYgQFJdVLfhMCHdJPE1JTR9MOLiETUyRE6UUn PiQZEwSZF5UzZzVZKgSIOpuw8RRZPiXXOmGsK2HBFq AXSeZSZdDDnwHEZpESB3Cka6EOSpSIUfUH8QJoFrCSYqUMV9FtutFZOyUAKngq5SLADxVJCeMns3GZJp YDHzWFFqNGkfZSOdIHW9OOv2MQQtXTMwQJ7KGeVnMJBbOQo8ByMbALGyBXZijm6BGPDiEOUjUXZ3SkNn UXAxBAFcUYrcYEKpQZM7HRH5NFLkDENvLF8XQuXdFL jjOCQMYxj5HZfyM4c9MXZdXk4KS7Jgg0DvRzOjVGLATSvyKG8mioHvNQPxLo5HE9gALjleKFQoX3OrYJ JdLRZ6FnG1OEPvOhVqZaeoEMQlIgV4TE8cVHZgDTZvXEGyXVB4SqJgOLw5QKI3XMH3QVT7DaIcGVe7Pr CvEK2LWp8CIoM4MEZ0gVGlLv3UDDicSMkRMdPhXW4LPNn= ID Date Data Source [id number] 06/12/2019 08:13:46 AM EDT [facility] Name Value Range Interpretation Code Description Data Lynn rce(s) Supporting Document(s) Progress Note [facility] ZQNXOy6cGwBPIsLw71/AUQchZMZok8MaHTlsZSs1RSeuBTLqD0YhFFO0uP5nHXL2PJuADpAeQlAuYTW1 lbm [file] [employer]/6ZTtiblOSXopSVLGREh1nYDRyKkRS+wBlfpLZ5Tqp3jL6Z5qzPm4C3d18gMvUCQeAkr9FCGScMrmm [file] FkMjIxNWZjYWY+XY4nYWj+Ke2Ev0RrkdQ1dtRmLHz3YoM8LC7FMVPOB9JEKe== ID Date Data Source [id number] 06/11/2019 09:22:29 AM EDT [facility] Name Value Range Interpretation Code Description Data Lynn rce(s) Supporting Document(s) Leukocytes [#/volume] in Blood by Automated count 11.0 10*3/uL 4-10 [facility] Erythrocytes [#/volume] in Blood by Automated count 4.22 10*6/uL 4.1- 5.3 [facility] Hemoglobin [Mass/volume] in Blood 13.7 g/dL 11.5-15.5 [facility] Hematocrit [Volume Fraction] of Blood by Automated count 38.7 % 3 6-45 [facility] Erythrocyte mean corpuscular volume [Entitic volume] by Auto mated count 91.7 fL 80-96 [facility] Erythrocyte mean corpuscular hemoglobin [Entitic mass] by Automated count 32.4 pg 27-33 [facility] Erythrocyte mean corpuscular hemoglobin concentration [Mass/volume] by Automated count 35.3 g/dL 32.0-36.0 [facility] distribution width [Ratio] by Automated count 13.9 % 11.5-14.5 [facility] Platelets [#/volume] in Blood by Automated count 380 10*3/uL 150-400 [facility] Differential cell count method - Blood [facility] Neutrophils/100 leukocytes in Blood by Automated count 73 % [facility] Lymphocytes/100 leukocytes in Blood by Automated count 16 % [facility] Monocytes/100 leukocytes in Blood by Automated count 6 % [facility] Basophils/100 leukocytes in Blood by Automated count 1 % [facility] Neutrophils [#/volume] in Blood by Automated count 8.03 10*3/uL 1.8-7 .0 H [facility] Lymphocytes [#/volume] in Blood by Automated count 1.76 10*3/uL 1.2-4 .0 [facility] Monocytes [#/volume] in Blood by Automated count 0.66 10*3/uL 0-0.8 [facility] Basophils [#/volume] in Blood by Automated count 0.11 10*3/uL 0-0.2 [facility] Myelocytes/100 leukocytes in Blood by Manual count 4 % [facility] Myelocytes [#/volume] in Blood by Manual count 0.44 10*3/uL 0-0 [facility] ID Date Data Source [id number] 06/11/2019 10:29:28 AM EDT [facility] Name Value Range Interpretation Code Description Data Lynn rce(s) Supporting Document(s) Albumin [Mass/volume] in Serum or Plasma by Bromocresol green (BCG) dye binding method 4.1 g/dL 3.5-5.2 [facility] Bilirubin.total [Mass/volume] in Serum or Plasma 0.3 mg/dL <1.2 [facility] Calcium [Mass/volume] in Serum or Plasma 9.6 mg/dL 8.6-10.0 [facility] Chloride [Moles/volume] in Serum or Plasma 97 mmol/L 98-107 L [facility] Creatinine [Mass/volume] in Serum or Plasma 0.85 mg/dL 0.50-0.90 [facility] Glucose [Mass/volume] in Serum or Plasma 176 mg/dL 70-140 [facility] Alkaline phosphatase [Enzymatic activity/volume] in Serum or Plasma 115 U/L 35-104 H [facility] Potassium [Moles/volume] in Serum or Plasma 4.3 mmol/L 3.4-5.1 [facility] Protein [Mass/volume] in Serum or Plasma 7.1 g/dL 6.4-8.3 [facility] Sodium [Moles/volume] in Serum or Plasma 137 mmol/L 136-145 [facility] Aspartate aminotransferase [Enzymatic activity/volume] in Serum or Plasma 25 U/L <32 [facility] Urea nitrogen [Mass/volume] in Serum or Plasma 10 mg/dL 6-20 [facility] Osmolality of Serum or Plasma by calculation 288 mosm/kg 275-300 [facility] Creatinine/Urea nitrogen [Mass Ratio] in Serum or Plasma 12 [facility] Bicarbonate [Moles/volume] in Serum 24 mmol/L 22-29 [facility] Alanine aminotransferase [Enzymatic activity/volume] in Seru m or Plasma 28 U/L <33 [facility] Anion gap 3 in Serum or Plasma 16 mmol/L 8-15 [facility] Albumin/Globulin [Mass Ratio] in Serum or Plasma 1.4 [facility] Glomerular filtration rate/1.73 sq M pre dicted among non-blacks [Volume Rate/Area] in Serum or Plasma by Creatinine-based formula (MDRD) 78 mL/min/1.73m2 >60 [facility] Glomerular filtration rate/1.73 sq M pre dicted among blacks [Volume Rate/Area] in Serum or Plasma by Creatinine-based formula (MDRD) >60 [facility] ID Date Data Source [id number] 06/11/2019 12:12:29 PM [facility] Name Value Range Interpretation Code Description Data Lynn rce(s) Supporting Document(s) Magnesium [Mass/volume] in Serum or Plasma 1.6 mg/dL 1.6-2.6 [facility] ID Date Data Source [id number] 05/27/2019 12:59:29 PM [facility] Name Value Range Interpretation Code Description Data Lynn rce(s) Supporting Document(s) Progress Note [facility] VGLDIf1qOcOLMjNi79/PQZmjFCQvc9DoHNsxIWv0RIwdRSRhZ4FlWIX1oW8dFRH1AOzVKzMvWxVjAuAx [facility] [file] ICAgICAgICAgICAgICAgICAgICAgICAgICAgICAgICAgICAgICAgICAgICAgICAgICAgICAgICAgICAg ICAgICAgICAgICAgICAgICAgICAgICAgICAgICAgICAgDQogICAgICAgICAgICAgICAgICAgICAgICAg ICAgICAgICAgICAgICAgICAgICAgICAgICAgICAgIC AgICAgICAgICAgICAgICAgICAgICAgICAgICAgICAgICAgICAgICAgICAgDQogICAgICAgICAgICAgIC AgICAgICAgICAgICAgICAgICAgICAgICAgICAgICAgICAgICAgICAgICAgICAgICAgICAgICAgICAgIC AgICAgICAgICAgICAgICAgICAgICAgICAgDQogICAg ICAgICAgICAgICAgICAgICAgICAgICAgICAgICAgICAgICAgICAgICAgICAgICAgICAgICAgICAgICAg ICAgICAgICAgICAgICAgICAgICAgICAgICAgICAgICAgICAgDQogICAgICAgICAgICAgICAgICAgICAg ICAgICAgICAgICAgICAgICAgICAgICAgICAgICAgIC AgICAgICAgICAgICAgICAgICAgICAgICAgICAgICAgICAgICAgICAgICAgICAgDQogICAgICAgICAgIC AgICAgICAgICAgICAgICAgICAgICAgICAgICAgICAgICAgICAgICAgICAgICAgICAgICAgICAgICAgIC AgICAgICAgICAgICAgICAgICAgICAgICAgICAgDQog ICAgICAgICAgICAgICAgICAgICAgICAgICAgICAgICAgICAgICAgICAgICAgICAgICAgICAgICAgICAg ICAgICAgICAgICAgICAgICAgICAgICAgICAgICAgICAgICAgICAgDQogICAgICAgICAgICAgICAgICAg ICAgICAgICAgICAgICAgICAgICAgICAgICAgICAgIC AgICAgICAgICAgICAgICAgICAgICAgICAgICAgICAgICAgICAgICAgICAgICAgICAgDQogICAgICAgIC AgICAgICAgICAgICAgICAgICAgICAgICAgICAgICAgICAgICAgICAgICAgICAgICAgICAgICAgICAgIC AgICAgICAgICAgICAgICAgICAgICAgICAgICAgICAg DQogICAgICAgICAgICAgICAgICAgICAgICAgICAgICAgICAgICAgICAgICAgICAgICAgICAgICAgICAg RKAlADTdKNIsEVSkXCIfLMCjFWDgCEKlLAByRDDxTDXmVIIzRHXdRONjTGw1L8zdGVDvMCQkXG2aEYh2 Jz8+CPfFIiTcFAY3khZduQ0FVF4rp5GsUJqfUJGhz3 AuTAu5JN6TDQPuAYacYM5HZNphgh3RNCNoTHNmyOLUf1plJcZxBQH9GTOeOnfeDT9IOLHzL7yucvYnBX ZxSJAKXKsmNSRFDAuiNSAXEWDaXOBdUnDxAgEsWFXxKR4XFUZbV360rrTkJB0WSg5HFfBsJK1mdq1ANw FcRKKgGzkPNtu3EQewDY5EmRAlkYWeUIGlWRAQJfBd X3ulu5RhXsJwRAJLZGlgME4Xn8LqnRCtVUc+Bk9NDM8ti2FmCZxnAVRwWY9xyp0AKCzWSeOmG9CjqPcm MALwq6dyYMKiAR0upPWtXAD4TD0uF5lwSOpxJTRAjTmzOV8EJUL5SNHfWdSvVxOtQQNzSTsqZNNKWVhM ChWmY6Diu6GxWbT5JFTlHfHlPPzdCFSwJrI5UV85cH ejWH5TORHcJKDqBF59UAPbNUZyEl0TZc4DYaBkQR1sjq5OCePaCYSiDktTWcc3YPgtOK2GjUMrZ2AaiZ Dsg4jQFrVwM2WGJNM8UDXgKw6LDBHaXuAhWSZqBVzwDV3qPWWzAQURvWvwzuU9IM9NGV8jgpRsEF0FWh GaWg5gCl4GPxVfD9AmY6UdTLDvQFGWXXbhEJ8FNGan VP0kLO0Qw2QJnRJotC8ewz2QUSZrKCNzOzblvt2DIlmkV1K2aUdjSSAxWqHpQRFTRRfcZY1ZLSQvRME5 QWAgCPMlBZRAYjKgJ65yOF6TV7Gok28uAuL9PRBvDmDjYTdaVA22qJsvauRlhQRarBzxOI4SZp0+DQpl bmRvYmoNCnhyZWYNCjAgMzMNCjAwMDAwMDAwMDAgNj T2XhFyCt3XNEJxJBNyGMYdObHhGQNzFLDkUGgfIGBfXZEjCCErTYEkBQCqXD9PLlJkUNBiAnE3TGxkCE FsWVCapw3OGDVmSMLrFZY5SoYfVLByTCWgAEjbLTSzAXU4YCC1BMFcTYTdZY6LLdGzXVMiRVD3MYcmDY ZiCCRihi8OJRFyPWHgNWKeAdBdRQWyWEQoOIqqTQTw UAV7PXC2GEAyKZAmGN7QLdSuGYZnIPU7KKRrZZJeRZVjyj3VNHQhBIAnSxVcMBVgYFOePGHxPHofUVBm JVT0SvTfQPOaWBXaQI6XXeUoMQOvLFT5UQJkDBAbPIXxbo6EKESuDXIzGhR1OrKpZKOoIVArPPegRMPz PVU6JDy1ATLlIEWxHI3HMnNxSBXoIWl3CJopPTExHO Zhme7CBZLnTHXyMKp7GHGhEJGuUUPuFYtnVNBuMCI4VCM9JFIqAXRmRN6YAkZtPATnHUv9SAflZIDyXT Qogg7ILADgVBGfWXK3NJHaHHNcPAWiXFiaSBDvOPXlObt6AAKjSGBjHM9BZiTiVNSrOuZ1XrTlCFJyUE Ogwj5MCCBkLLXmZRs7YJQyTQWcZDCxUBwtYHSgXQZw BBO1IELjZQJtWU2BCvSxPJWvTuSgIFagHFXdHXXlgq7ETOWkFOVkSuU6HmOtHJKtKMGkMYzlVXBeQTZw NTa1MIKcHGCtCC8FSiRbAARrKqQ6GqeyMFClXENwvg3WVFSdFUVtOch5SGXqJHYgJBTaEYxaGKOjIUM8 UqS0LJQqZGWiIE0BZwXaZOFmQgH3UyIyMXRpNKBhtr 4QFTViJHKkMRz6SiTaCAXrYQArICbeJIAiYBE8BYNlWSGrMCNrAG3DMzOmROwhFLLVYhq2PDfrE8k2QG XkFw9KN5Vsq3UgPuUkZMUMILdnTT5lywSvZGUtFo2SF1hWFpsiYNmnOiKmSUE2NgM2SoAlLXPwUaK3En V9FwGpSUR3Ha4mWEM2MYSwKFC5XvA0WbAqRKP8FFJ5 XRomJxfuWZJ2UQKySsSsOZ0CPk3ZCeC9AIS5zAXlZi9SSnAaZGRWCyEuJQ7YRYg= ID Date Data Source [id number] 05/21/2019 06:08:01 PM EDT [facility] Name Value Range Interpretation Code Description Data Lynn rce(s) Supporting Document(s) Progress Note [facility] GSLHLm4xBvWEJwIc90/VLMsqFBJbu4OzTWfiQMw8EJjqTULgK2NjJKE1dI2jJZG2EDpHWyBxClSiXqG9 lbm UoFmvKBtLuCUYjZctSVuDhSOkiLqdnqWHyMH8YnIJ9NTPeN79jHUJrKTPvW9VcDHV0FSM+Vt6ZYKIopS OoBF5QJapJ3A1cgqaOWr9zgM5zpRNHQOlD9l06KYFIIYdHDWmrwLTkcz5pcUX6HdwEjYWa/wcuP3kLCU 4ec4ymvaqVDWn9K+/ucAhr8CLc+uVr2RBjJMoj+G/x MYik6I/Fn/5utwtvuSh7/JjIpEkxUCoZ9MO+0cLnBxLTEhp5w6TATXMh75ujAU5IKBpYQ4rEx9b5Zq6V t4ipRDUWwngJF9qsoYqfpI2dePGbmDYtzsdeej4R07ox45ndemg98RUwi34aTpqR97qtCAsaCicOQVpi bq5jZlgeCQwtrTaTxvxEvBW9KNEDU9Xel6zEIYQct2 Z+Pzq2LFHkwhBAybYdEZHpqUq56N1Bc9ZEBxvtUBdUeUn8YlqN3uRE2p+X53fEUs/Ho8YAE8GeVRBzZp TMKmgShyXgCpcxH87LpsmOUodxI0+3Zsmbum5Ws5t9knyFnuO0ls/rbB0dgZNgjES1LBiyl/fwC1AK4C RrZZwj+5wRnFUoXe9lH+1END0UqFH5kNJvwCuVu0Ha Q2sPAg0gGsva/O64viRHtPtWc2yYwIBR6uvr446itLlodZA2u9014+Luy7Z3eTaKi9MOZSxenSSrDxDT CMyfhWkcJ1xHlbbbXkBo6y8Xa+f98tJS8FrlVnbcQo0qB36179kdhWBAv09JQNBxQR89iAZoF1dOnth4 KKgDmwaB3eUyBXuOjGwEqwPrjukVTgvd6pSPmYMT4N QjzHKjNgvnzPW8jb0ZTAdLr3ruPOrfN7Iap0DqJNKfsgYxAUN/cXvt2bMyCpiR8WmjSyAM1HSK8IMq3j 6rqCh7/copLWVsCU6n4DRV+MpKtjob/tGJaaYU51vu6nJsAcJL8S2pZpH6836NdodLB4YfG/xb9Urgep z5seZQ+2DkF0sSsFsnCcF1DVQiK6oIlQ+BbE8apuOd WY4w8YSdaVXKkGDLJ3Fzof+r1L5qIwiYQDOnws0EPbUTAmpqaHpU+yNUO4ARwQVzLxlCwIaCJBJotnRP NCjU9e1wdOpQYid10gYYAWejnSuRDhSIr1pV8VhJyKXPUipg46Dk/WTgHk08CIOjlcL57ne4cOaW1Tlh S4+WRsjBr8xexHHGlkuF3OYsM5AqsthwNUoTVy9x2T Q5QJFvJ2JsU6da+S1Q4CQN8bv3mpPvD1TEmDkCCnpvUTRGoebrYKVu23UbQ2g469+WdSf//m/RPd+dNU [employer]+rgyKAm3BSngVYMgDRkuTn/Fi0Hd5YscrDD+t9BSXT3sg4wrCh3NJuj0PxVrlStIlDKZ/u5jv86xPJ [file] OPR0HFQyDJMkVOVtGmJ3Cqe3GNv+VT5tDNx+Yk6Ig9HmsrM6nyJqUNmqUtOnBZ3MOZQYU2RJXw== ID Date Data Source [id number] 05/20/2019 12:04:36 PM EDT [facility] Name Value Range Interpretation Code Description Data Lynn rce(s) Supporting Document(s) Consultation [facility] EDITCt9rLtJLJqBk05/YPIwpWQEft1DfWHkgUFp3VEdvCNCwP6IbCCB9aU0vDOB9GIcGMiQnXxDqVmE1 lbm [file] ogIFtdDQplbmRvYmoNCjIgMCBvYmoNCiAgPDwNCiAg QTPyXUObV4CsbJWnK1ALXs7PNAc0U1oxZRmyMz1ZqFYqSGAqRNmtVZLhG7CwlfVuOMhwM2VmODFiPLIu Pv9YUTQmWGSoW9HbJOWpLNEdEn5GBBVsOLJyS0SvVOY7NTQyLn5VZMXmBKMpR4LpVDF9IGIoDj1+DQog XVGmG8mNWxrrM9DmIDtsNz2OFiKkENOfXTk6L5M2CV IsWFw8P2VNU3OTLMTwFKqwTPjpZSZoYFt9E4U0ZBUyJ1MXN6Tntutfeb3+SK0GD61RFPJtJVs8T5Z1kA EpW7J2sOzXpYW4IP1QHX3VwOw9rMNjlH7+WS4PK6OCQdRrZWw4S9D3qTIwM5O6iKcHkGX7FT9UBM5DgB KaPUGrriZkBv8zF7OHBIzFBgXKEWQ4WH6NyZIiUM2B yYFPH5SdxGCxKi9rOEtsbARiaI3zUd4oPOkfAOEuM0STS7UKAS8KSEe3M6O2gMBhK1K9lPxPzTS8LI0K KN7KbFozrJEsWo2qELzqQKPlXP2+DQogID4+PXbnkqQmCmrYPxRdXTHhy6EuZJl7MI1CLK7aiJyiIRM6 Nl8AaCT0oUVsF7uNIS3KtGGcE75mxBZvNYHrPh9BUu T4dvWxeF5QYI21uIOlq0N4XSVcC7bdPFkcb39jALslHAwWKY7fNWFTPYeiTQhbTQM5QzKyvazfUTPjIp 6IItYpNJj9pL4vpTO8QUX8PpwwqUVvPUixEiZzSfKjPeU2iKpmdmb3PTdgNM7vOTczwdwnRFFxEms+DQ goEZVwWFOoIvoSHACveT9flgT3slXeYAifnBZaBq6e g0z9MzicRl7qIx6fKWo0UvJmKeJaRFJkGa0zuD07YUlfprBwJk4RQcLqOBS8F0ImGmbVRVP+DQogIDwv bZl1iAVzUGKmPy7FQMAvSMArLFGjNUKxWTAlAFTlXYEwNGJpEXRsZNLoDYMeZLMmHPPcKSYzGOPkSFCs ICAgICAgICAgICAgICAgICAgICAgICAgICAgICAgIC NePTKqCWNcAMKyXQIpXMYzKUSrZQ1LVOOmNJYjKMHhLMHgCYYiNBZaUBRqPXMrHYMpKWEdAZUfCZPsYD AgICAgICAgICAgICAgICAgICAgICAgICAgICAgICAgICAgICAgICAgICAgICAgICAgICAgICAgICAgIC YwLJ1KYROcGMNvOCWsNGYnOBIeAVVkLKJbTVBkBHQc ICAgICAgICAgICAgICAgICAgICAgICAgICAgICAgICAgICAgICAgICAgICAgICAgICAgICAgICAgICAg QPKdGJSwKJPwNLXcOV7QGHSvIYGcNVWgDWHvAWUaMITdURJlBKPaBTKmERPpTVZbIITuEFYpIZGwNMFx ICAgICAgICAgICAgICAgICAgICAgICAgICAgICAgIC XrKZIaALHjGVMyPKUtNZAkLQEqCQEyTP4KMZRmNIJyELGpVGViQOOxUGCxZPFdOLIsIUJpIPGtOCKtTR AgICAgICAgICAgICAgICAgICAgICAgICAgICAgICAgICAgICAgICAgICAgICAgICAgICAgICAgICAgIC NeHEJrAZ3SAXPzMHIoHJSfCTVsGLFtJHSpOBTpKETw ICAgICAgICAgICAgICAgICAgICAgICAgICAgICAgICAgICAgICAgICAgICAgICAgICAgICAgICAgICAg RLKkAYCzTYSmNZGsGMXlEX3SDFFqTIYrUXMuIUOiOTJcJIPkXUSkKJVfSGIzOJFmIBXcPFEtNPVyXQQb ICAgICAgICAgICAgICAgICAgICAgICAgICAgICAgIC XaXJTyLOEtZTKwTYUbNTHcZLNqWPEsGXMnHT8HFJOoHXFiOJHoISQbXJZpLGXqBRVyCAMuKBRhPUMzQO AgICAgICAgICAgICAgICAgICAgICAgICAgICAgICAgICAgICAgICAgICAgICAgICAgICAgICAgICAgIC NsTVNwUQYiJS0BQMGzJPYyMBHzUZBqQUOyYLDsBMUd ICAgICAgICAgICAgICAgICAgICAgICAgICAgICAgICAgICAgICAgICAgICAgICAgICAgICAgICAgICAg CURaCJBgWOVsZAMoQFKoVLEuGY9QIIQzPXIeOATdASYoMJQdBLCpJOJzAADhSAKtBFNaWJXfPURlWUEr ICAgICAgICAgICAgICAgICAgICAgICAgICAgICAgIC WaAEJwQQDaRQZvHRYeZPAcCFWrDGCxJYLtLOErSI1ECR85aVBdd8D9BUCcKG6shue/Zt9ZRQmjnfGibF WcBG5LReGzGU3bdj4QZpQdBJ8gfr0TGGvUAbQdD7K9fSXaZLBhOEOFHrMnZ36aSPolWk15GDgoHOIuDd EwKIe0Ru2DZhVdK2taCQJuHbQ5FULnCrI0YIWfDjJd HHkrZI8Iy9DqkGInBLc+Ix1HHG1fn2VdJMwcVeKyGB2lja9ZFUzRJoKrG8QjnrK3ARNlUHOrJa8RLRNj UREhlRZhTgAxLTAQAcSkY2GxrQ21PQRPZx7+NYynaePnFybXHrZlAQRco5OyEXs4BK7PLTYiTFm4sPSp L91yr7PmlRYjPuidBbFqebbdIWRuFIUUNPRcKLDWuU SfvNAiFBZkFk7uKD4jSGBhOMFcGuBwIMXUPE9OTIYpHWTwpXRkQWRrJDPLOD6NZVtxYTY3LBSydwUtmO TwUPvqEC6NJWQrraMhKpYdIHOAKXi+Eh9GBT0cj3XqSLujLJOyGL0auy8YQSyBBzBhZ6N2fPJyQ5X4EI utXc5ORXZfIHRvVvWpIXJGCHzqJG2RCB2rbxN5RG7F qGMxZMGeBQHirVRtUOb4H28liQCoGBcjRW3URSI+Antelmo+Eq4YBHAmSIKxVIMfNuVsLCXSNgAjQ0ZaD0RL v4PpS9EtBV61tBxqfhMaWKmxDT7EWV5aZQTyOLMTSG0TbYWdzF4jnvKxIoEoHWTJPxBvP44cvZIxMVEn FIAvCVJvNo1MBUEwG6NcduBwaOfhoaItYVBfBQMQYL 7JTQkvyeRrkVIueNmnSE30aXjdQA1HWv9IEsYdNN8cbl2LhOZhTm2BNZTxOY2SBMFkJAQbVQZaNGE8VI JhMkFhQSdjIQKtWCBrCGN6PCUnTDBcXU1UYmEfWBFeJPN4CFscRSRzIOVypk5ENZZvGSWsMnE1AILwWC DqJRJuRXxkHGMuBHLyJHT2ZHRjHTHoBL0FEiMjKPSj XTF9EDAhXCRmIMFwdo8HGSGmFBOyLnrkSBDvPTYxEQIkGWopDGUiADQ6UGh2PBGnACJqZE1QXuCpVMQo EGUrJEXyWYSoQRKajq1YSPBiGYAaLaE8GODeESSfHSCwRQusPLEuAYK0EsZ1IJJxZCRfUJ1VKzImIMNf NBK4FsFaVWQpHXCzuw2ARTGvQQUeIbD2WSGvQGAhRN JcGIicMBRwKGI7Gkv5ZMLzGZXuCF3EKoBtBSKfYXw7PsWwDCOjRUIhwd0BXLJbOWPkIYbbMFQtPTApUU OmDMrlOBYlPNG4FOO4ZLQzDSRfPP3GRiFhRNCoHQfdQdIjVSShDXBdea4AHJNuWFAjXMI1IUPwSXEwUE XjCXugEBNnBYDsOkxeZDEcHUGwBN7NXiDwVFRyHLN1 HtQxFJOnNJSojh0OJYPqMXCaQBTvVKAgTVUsOKPnJNfaEEMqXEIsLQE7ZXQtIFTyFV6FKqRoIWXsNAE9 BtHbJDLbIAGdtl2PQHLvYMKqLeG6YUIyTTVlYSElUWy3yuZmoYKpWNb7WP6AL6MstpGjTfKBGn6Cx697 XIX5EBMrNz0CP0paXj3gGCXhMZDNPu4KQSy7XiGpJM KlWcQdPXHnDKSsGic0KoNqIfrzLJC2VgU7VbY+RWm9HQXhFZFpZQHjTHK5BZC6ONJcM0HuOFUuYgzkFD haUm2aHNBXGo5+RKrojXBbnJbhXXUALeScRIWvLCedZENSGl1F ID Date Data Source [id number] 05/20/2019 12:04:06 PM EDT [facility] Name Value Range Interpretation Code Description Data Lynn rce(s) Supporting Document(s) Glucose [Mass/volume] in Capillary blood by Glucometer 183 mg/dL 70- 140 [facility] ID Date Data Source [id number] 05/20/2019 11:40:05 AM EDT [facility] Name Value Range Interpretation Code Description Data Lynn rce(s) Supporting Document(s) Consultation [facility] SSCKOg7oXzWSKcLb37/WKAiiLLTjm6NrLVplDWe3JRyzSGLzW6TjKOO6zW2nVSY5QHwFWsDjUfKzRrS4 lbm [file] VkjCywIZKEFhj9JaJRHaFgYO4DUSr= ID Date Data Source [id number] 05/20/2019 10:43:59 AM EDT [facility] Name Value Range Interpretation Code Description Data Lynn rce(s) Supporting Document(s) Discharge Summary [facility] QDANIp5bUaIFLlVc80/NAOdqKGSkk6SjYUtoHEn8WLyjTWOcJ3VkKQI5fS5zLIF3NOzJXhWaBjSbIyX5 lbm [file] MOTOR OPERATOR+Qh9KJYOaGR5YoOOOB6NboSOcUFyvD0BYXZ7KJLM5QA0HeYQrGK0BhEYIJ1JzjBWdPn0vYVLwf8Gn Jw6vA9ZXOKDCCKDpZTgzAFqdWVVeIYq1O2H9ZUWoK2MWL421lZMijZn6Bt2sF6EAXKmFLjMfZTloUHhr TQWuGAv7R0Y9SKYhC2QJS3VsPbLiypPoV4G+PiAvUE WTEX8XIOHNPIt5E6O2kEVyX9O2iRfRoJW7TH1XNM9LeFZpfTTnj60+PjCTNvCaWEQkC1KKEYSCMfQlIS hcZVebLCXxNWh3A2C5YVJhB2ZLJ7emT6w7WQ4+XyKNNfIbUOMoKf7GPpZdTw9TRdShDO2pya9HVllpCN SmHltWEfz7M4sqlgw8iIZiZcI2L8G6UgP7jREdSH8J S2A8jWWwZSL9TEIkzZS+Ce6Ar6UnWZYmTMk2Z5thZWDhYOByCaWwyG29S++6cgqqjNQ5S5t7QTRBvWQs nUbGhnVzD5rMDWH4x2O8DHd/Sx1MYZI6sAg9xFHnLKSyTMp4eX1hfWf3VmGxDV78DLZdBKfcdE4rFsw9 H2Oil4BaKj7rHj7cxPQuYf2ETrAnNYU6wrLuEiPGTd N6lIdjmtgoVWR3G7f2xGL4Qr95l4mqzjOpa5KkWpS9QAfaNMKqBtRjwyCtKLH3uwSuvL7ogeYhTg1IOU DxZEcdgsQcVqNMZy7OErLbRZ30YtyhlE4bwYW+DQogICAgICAgICAgICAgICAgICAgICAgICAgICAgIC AgICAgICAgICAgICAgICAgICAgICAgICAgICAgICAg ICAgICAgICAgICAgICAgICAgICAgICAgICAgICAgICAgICAgICAgDQogICAgICAgICAgICAgICAgICAg ICAgICAgICAgICAgICAgICAgICAgICAgICAgICAgICAgICAgICAgICAgICAgICAgICAgICAgICAgICAg ICAgICAgICAgICAgICAgICAgICAgDQogICAgICAgIC AgICAgICAgICAgICAgICAgICAgICAgICAgICAgICAgICAgICAgICAgICAgICAgICAgICAgICAgICAgIC AgICAgICAgICAgICAgICAgICAgICAgICAgICAgICAgDQogICAgICAgICAgICAgICAgICAgICAgICAgIC AgICAgICAgICAgICAgICAgICAgICAgICAgICAgICAg ICAgICAgICAgICAgICAgICAgICAgICAgICAgICAgICAgICAgICAgICAgDQogICAgICAgICAgICAgICAg ICAgICAgICAgICAgICAgICAgICAgICAgICAgICAgICAgICAgICAgICAgICAgICAgICAgICAgICAgICAg ICAgICAgICAgICAgICAgICAgICAgICAgDQogICAgIC AgICAgICAgICAgICAgICAgICAgICAgICAgICAgICAgICAgICAgICAgICAgICAgICAgICAgICAgICAgIC AgICAgICAgICAgICAgICAgICAgICAgICAgICAgICAgICAgDQogICAgICAgICAgICAgICAgICAgICAgIC AgICAgICAgICAgICAgICAgICAgICAgICAgICAgICAg ICAgICAgICAgICAgICAgICAgICAgICAgICAgICAgICAgICAgICAgICAgICAgDQogICAgICAgICAgICAg ICAgICAgICAgICAgICAgICAgICAgICAgICAgICAgICAgICAgICAgICAgICAgICAgICAgICAgICAgICAg ICAgICAgICAgICAgICAgICAgICAgICAgICAgDQogIC AgICAgICAgICAgICAgICAgICAgICAgICAgICAgICAgICAgICAgICAgICAgICAgICAgICAgICAgICAgIC AgICAgICAgICAgICAgICAgICAgICAgICAgICAgICAgICAgICAgDQogICAgICAgICAgICAgICAgICAgIC AgICAgICAgICAgICAgICAgICAgICAgICAgICAgICAg PMZlHDYrRCHySCHbDYPdIIUtUZKvYFPaTAXhIZVqXVMhFSQyAEBgMAWlTMYhATQvDNh5R1ayGUXpUJPu ZO4tQFi7Op8+SFtXMkDaSCB0yyZerH6OZF4qp9KyASnkBFOkj7CbOUb8KP8NFAOdEWiuHL4SHCfdie0X RSHwDUBwxTAUb5rqTxPaRHF1JLObTdjkKD3HCSZqG2 jnhdFvTEYdHZFIMXxsJPOFQWmqRJWUKMQdFSJvOmRlQuHmWNIyIQ9UTMTxX412teTzST4BBm4WUeIfHA 9gae9KAvogTQXmAvvRYue5LDnbWH6IkWGvrPYmAZXrNXABJnJuO5owe2RsEpodCTBTYXzcLE7Hq4OqhT AxDQo+Wd0MMY5yk4YfNSpxYQCaNJ4plx4VUNdXQvNw V8NeuNuwOOWnu2ZcCVMpWHEPcZ4yWZL0JJE8ZUJcnFwktJZBf1xvVE9aKXROZWIbwJZjSrH8LaOeIaYr UTL4IgFzBL0lIRzoGZ3TSBS0TCyoBDGgIQFeS9qUGfJqYYVyMqSpmWhnPB8KFfEfY5GyjhLvlHCmPGCn IFINCj4+QDaqugNhCuuNLaDnMYAkd6ReXHx5IM5VEC DhWIgtAL4FKFDqxO3fYVddIS1XBcGmFrLyFDNFStKcU43lqEAmJBq8P5OlMtIpFQFfMdfoGTQyHIsuDq FtZXMgWyBdDQogID4+ID4+FBrqWH1PVJacilLeDNJqKj9RTDPbVEJoNT5lAVAnPBWzN5F7rWxgZQMVCp FdP8hmnvlcTK5jWFAvH323pVtlrjIzEWP0LEPyKw8L KZZuHDL9OEDauKSrWwluBUCXMKnhVE5PxDNsUIM1hE8fOPzfPKXzNJCxL8vTXuOtgGrvJI33pTwejsJc bCBdDQo+Bf5MPS1lo5NhFXa9xwExHAccRSOjAImjJLZlQSPgDICkWGE1MUK6ZBKYJmOhOZTcNINgIAkz PLTqYZUzpi2WDJVcCLFxJNl6QIUyTPHyGRVfDVvbIW HcDBW0DvZ0LHYxEPEmBS2OJjZeTTLxPLRkXJjcGXNoUUCmpg4AKPMmCKNhDUZ5QRFpSGZdXPAlWScyUD ZdZZK1YaQ7BUYmBAFaIV0WKoHyXIDzTCxtRORsWKGzKXCtlk8ERXNnETJbONY1JIXeDFWnNMKxFMazQT GiCNR5KnU2FIYqECAzGC2KQsWpMVSgWIW8CnEoGXXv DTBbyw5FFZBxNMLlDqZuQVNiTNFdJLKoFVobTLCjPEK4NJG9DAPeQDGkDC0UNwZtQMJbEAkwBUXdBOFn BAYkqb8HCALxSJEuWGQ4KlCpGGBaGOYqETbwSMGnSBRuBGEyXGYiESFbOA5HXbRgWJFrOxK4GVdfJXGa LBFztu1CXWScDTBiOJtvIoPxMBFmCECbJXrdKWCyKV QhRAmiWTHgTVDeTP0TAqGnMPDaCdVhMYPiPPXoITHngm2HJQQqGBXcJgG6KKKtCCLgAUHtGIqzNWPoMM QnMsGhZBIrMOJqHI0VLlYnHLCvIrW8MhwoJXHhJQUyla3EMBXiUKMhEcGgYTEkPTUmKKPhPFslNLUjTT I5GSnaHOYjONTjAV3ASuFeDUFlTuF3FYDvAOZiAOZd cx8XJJKdHUHrXCp2SWElENOvASFbKIthEKPhTAW1PCQ0PPXqYUNxCO6CWmDsHFHgElF0TKMuEMQrDAWn jq7DUACcXFBcFpj0TTPmVLPcQGJlSXliQNFxZXD3TWFhSYHgLQVzDC5TKvFkHQqeFYRDVcv4SXotU3p3 ZCKuFT3IX7Kwk9CjTbRtSUJNUKghQV8lnuSpVLLqEx 1YE9jGGtuzUmErG5QbMOk8KUY4QHZiZVNvAeUxGmQ4NfMjUfV3GO9pGCTiKaBtZDNmXUHkEtBiDTS2Nf K8VXKjKDD5UGMeZQslCgLgIK2XEm4SFeQ7TYX0lSSnXz3XXsfpJJiKVoFaJD3EQKa= ID Date Data Source [id number] 05/20/2019 08:31:52 AM [facility] Name Value Range Interpretation Code Description Data Lynn rce(s) Supporting Document(s) Glucose [Mass/volume] in Capillary blood by Glucometer 187 mg/dL 70- 140 H [facility] ID Date Data Source [id number] 05/20/2019 02:58:33 AM [facility] Name Value Range Interpretation Code Description Data Lynn rce(s) Supporting Document(s) Bicarbonate [Moles/volume] in Serum 20 mmol/L 22-29 L [facility] Chloride [Moles/volume] in Serum or Plasma 98 mmol/L 98-107 [facility] Creatinine [Mass/volume] in Serum or Plasma 0.71 mg/dL 0.50-0.90 [facility] Glucose [Mass/volume] in Serum or Plasma 206 mg/dL 70-140 H [facility] Potassium [Moles/volume] in Serum or Plasma 4.4 mmol/L 3.4-5.1 [facility] Sodium [Moles/volume] in Serum or Plasma 131 mmol/L 136-145 L [facility] Urea nitrogen [Mass/volume] in Serum or Plasma 12 mg/dL 6-20 [facility] Anion gap 3 in Serum or Plasma 13 mmol/L 8-15 [facility] Osmolality of Serum or Plasma by calculation 278 mosm/kg 275-300 [facility] Creatinine/Urea nitrogen [Mass Ratio] in Serum or Plasma 17 [facility] Calcium [Mass/volume] in Serum or Plasma 9.0 mg/dL 8.6-10.0 [facility] Glomerular filtration rate/1.73 sq M pre dicted among non-blacks [Volume Rate/Area] in Serum or Plasma by Creatinine-based formula (MDRD) >6 0 [facility] Glomerular filtration rate/1.73 sq M pre dicted among blacks [Volume Rate/Area] in Serum or Plasma by Creatinine-based formula (MDRD) >60 [facility] ID Date Data Source [id number] 05/20/2019 02:58:33 AM [facility] Name Value Range Interpretation Code Description Data Lynn rce(s) Supporting Document(s) Magnesium [Mass/volume] in Serum or Plasma 2.0 mg/dL 1.6-2.6 [facility] ID Date Data Source [id number] 05/20/2019 02:58:33 AM [facility] Value Range Interpretation Code Description Data Lynn rce(s) Supporting Document(s) Phosphate [Mass/volume] in Serum or Plasma 3.4 mg/dL 2.5-4.5 [facility] ID Date Data Source [id number] 05/20/2019 03:12:30 AM [facility] Value Range Interpretation Code Description Data Lynn rce(s) Supporting Document(s) Leukocytes [#/volume] in Blood by Automated count 9.8 10*3/uL 4-10 [facility] Erythrocytes [#/volume] in Blood by Automated count 4.58 10*6/uL 4.1- 5.3 [facility] Hemoglobin [Mass/volume] in Blood 14.5 g/dL 11.5-15.5 [facility] Hematocrit [Volume Fraction] of Blood by Automated count 42.7 % 3 6-45 [facility] Erythrocyte mean corpuscular volume [Entitic volume] by Auto mated count 93.1 fL 80-96 [facility] Erythrocyte mean corpuscular hemoglobin [Entitic mass] by Automated count 31.7 pg 27-33 [facility] Erythrocyte mean corpuscular hemoglobin concentration [Mass/volume] by Automated count 34.1 g/dL 32.0-36.0 [facility] al Erythrocyte distribution width [Ratio] by Automated count 13.1 % 11.5-14.5 [facility] Platelets [#/volume] in Blood by Automated count 318 10*3/uL 150-400 [facility] Confirmed Differential cell count method - Blood [facility] Neutrophils/100 leukocytes in Blood by Automated count 87 % [facility] Lymphocytes/100 leukocytes in Blood by Automated count 10 % [facility] Monocytes/100 leukocytes in Blood by Automated count 3 % [facility] Eosinophils/100 leukocytes in Blood by Automated count 0 % [facility] Basophils/100 leukocytes in Blood by Automated count 0 % [facility] Neutrophils [#/volume] in Blood by Automated count 8.59 10*3/uL 1.8-7 .0 H [facility] Lymphocytes [#/volume] in Blood by Automated count 0.94 10*3/uL 1.2-4 .0 L [facility] Monocytes [#/volume] in Blood by Automated count 0.29 10*3/uL 0-0.8 [facility] Eosinophils [#/volume] in Blood by Automated count 0.00 10*3/uL 0-0.5 [facility] Basophils [#/volume] in Blood by Automated count 0.03 10*3/uL 0-0.2 [facility] Nucleated erythrocytes/100 leukocytes [Ratio] in Blood by Automated count 0 /100{WBCs} 0-0 [facility] ID Date Data Source [id number] 05/19/2019 09:42:12 PM [facility] Name Value Range Interpretation Code Description Data Lynn rce(s) Supporting Document(s) Glucose [Mass/volume] in Capillary blood by Glucometer 276 mg/dL 70- 140 H [facility] ID Date Data Source [id number] 05/19/2019 05:54:23 PM [facility] Name Value Range Interpretation Code Description Data Lynn rce(s) Supporting Document(s) [facility] GDHUCz1zPsLRGpTf52/CJUfvYVTbo9AaRCaePXp8YAifRGUuQ1CyGYT8cC2uUZI6FAjAYdJcMlZaXsKi lbm IzHqmQWxScCXGjXcsXSvPnZHulQtjesSQvTK9UqRM5RBNpV03vSAMqLWHhQ9SwOVSbSOM+Ox7LGCZdgJ KkKS7LDjqA1Zotw1w57rlZ6o7YURRzIhnUgS0E6HKvxwIcBvz33J5A7/4h5VluIylDdwMr/PvT0/KMma ri4yrj0pWTA7FaYlrIAXZIGUZRv+zEcyzLYtm/mz+9 YUWUub94T1ejDhCrL/8b2mVURCo5nNSQ+pmwggGTKfp0tlKcPuA0COjniu/y8EhhRPdajqiG2omnz48M y8pXvfXl21RwpJcjXryw4GuSgS3uy88ox72Nj4Juh3gCObkrZ4u144rUHSHLaBh0uOjEoCDqJlegW9WS H59UfO9c5uDBjnSDM3K65PEFaa0HsW3nJjhI6RSd/h P3cQrX43aAPq3mPgktKEcSt3RbRR9KhpK+kys9PXpvQAVX5kpp16dxOjssFhWzumrnRE/JFOegnzgzAz qZebA8GlLFJFaVLKnzEaWRIa3/tBDXC6JiL+Nd+I4raUBqNlJKhGKaA1YaD6GMuz/XwvTenZkTpkRdCi FEEDER T[employer]ER+JyPHDFpaBkI1i6TXE5mnrl1tscWl6VWGm3Ur2tv [file] TFYS8CuQ09VPbqTl+a8l5NrxQRJ+vp of digital marketing/JFuQlL24M+X lR08CkKbPaEpgcsuGtmXPlE0RhG07CJERCDgKwaI8aXzva3YRAKHcOfwhcNza7B+xiQpgPbBKOSTQXAO xrtj+Hb9QbBBP0W+QE80zfbGsPfwnt1V/gpgZrqRr0g9snU618o0QnnsoCScqrgfclBqMBsuWx8zlPKd 0EfpZ/x+Yy2Sa8rcnehURc7O2rukMMO5fPB4d17BNx EezE/0bMuemRmmSowBC8O6vxPxe4EcJdkH+MBGj47RmaYzRJuLN+3A77vPlm2Z5p1tP7dH9xJjHgSQHf f1OemvoyDySazwWv9L1XrHO9WNIXSisGeLHbAKH6hEru1HtntReHUgRC2sUsUHSdstE+iHoU51UH1JuW ezY6xVxxLO5nYz9IR2KjndX80C5gzyKA/W58KGzR5q 1maWe0YUjWTiiHRN3y3eEXsF+Gbx8ME1jZR1wlQjea26fM0+ZqvfuzNfj584LUDEgJCqSodA7NGhcioc aqLakOhN5GzoRnCoG3Ob9800yn5z12qmwhfnbGlz7vk8ZPAGOqEWP39OztGUEa6+ukM8R/nwnhhDahv1 88hkPYiswaUfzNVq6dk++QZ05Bti9IUfXkd7NWHA [file] Rw8cKDHWDa0+UBggyKZgqRviVCEVVjS8VratEQvfIKKJEi6S ID Date Data Source [id number] 05/19/2019 05:16:43 PM T [facility] Name Value Range Interpretation Code Description Data Lynn rce(s) Supporting Document(s) Glucose [Mass/volume] in Capillary blood by Glucometer 157 mg/dL 70- 140 H [facility] ID Date Data Source [id number] 05/19/2019 03:37:[facility] WHOLE BODY [id number] AL RESULTInterpreted by:Krista Anderson, [facility] [place] MDINDICATION Staging of small cell lung cancer.TECHNIQUE-Scan region: Anterior and posterior whole body images were acquired.-Spot images: Anterior and posterior pelvis; bilateral oblique chest; and bilateral lateral skull.-Injected dose: 22 mCi Tc-99m MDP.-Post-injection imaging delay: [address] chest, abdomen pelvis, 05/16/2019. FINDINGSThere is diffuse hazy activity projects over the right hemithorax on the posterior projection which likely corresponds to right-sided pleural effusion on CT.Chronic degenerative changes are noted within the shoulders, spine, sacroiliac joints, left greater than right hip, knees, and ankles.No other abnormal focal uptake is identified within the skeleton to suggest osteoblastic osseous metastasis.IMPRESSION1. No convincing evidence of osteoblastic osseous metastasis.2. Diffuse hazy activity over the right hemithorax on the posterior projection likely corresponds to pleural effusion on CT.3. Additional findings as described.This document has been electronically signed by Krista Anderson MD on 05/19/2019 3:35 PM Name Value Range Interpretation Code Description Data Lynn rce(s) Supporting Document(s) ID Date Data Source [id number] 05/19/2019 12:01:54 PM [facility] Value Range Interpretation Code Description Data Lynn rce(s) Supporting Document(s) Glucose [Mass/volume] in Capillary blood by Glucometer 189 mg/dL 70- 140 H [facility] ID Date Data Source [id number] 05/19/2019 08:14:43 AM T [facility] Value Range Interpretation Code Description Data Lynn rce(s) Supporting Document(s) Glucose [Mass/volume] in Capillary blood by Glucometer 171 mg/dL 70- 140 H [facility] ID Date Data Source [id number] 05/19/2019 02:42:50 PM [facility] Value Range Interpretation Code Description Data Lynn rce(s) Supporting Document(s) Hemoglobin A1c/Hemoglobin.total in Blood by HPLC 7.7 % 4.0-6.0 H [facility] (NOTE)<5.7% Average risk of diabetes (ADA)5.7-6.4% Increased risk of diabetes(ADA)>/= 6.5% Diagnostic for diabetes(ADA) Glucose mean value [Mass/volume] in Blood Estimated fr om glycated hemoglobin 174 mg/dL <126 H [facility] ID Date Data Source [id number] 05/19/2019 01:52:22 AM EDT [facility] Name Value Range Interpretation Code Description Data Lynn rce(s) Supporting Document(s) Leukocytes [#/volume] in Blood by Automated count 7.5 10*3/uL 4-10 [facility] Erythrocytes [#/volume] in Blood by Automated count 4.23 10*6/uL 4.1- 5.3 [facility] Hemoglobin [Mass/volume] in Blood 13.5 g/dL 11.5-15.5 [facility] Hematocrit [Volume Fraction] of Blood by Automated count 39.7 % 3 6-45 [facility] Erythrocyte mean corpuscular volume [Entitic volume] by Auto mated count 94.1 fL 80-96 [facility] Erythrocyte mean corpuscular hemoglobin [Entitic mass] by Automated count 31.9 pg 27-33 [facility] Erythrocyte mean corpuscular hemoglobin concentration [Mass/volume] by Automated count 33.9 g/dL 32.0-36.0 [facility] width [Ratio] by Automated count 13.3 % 11.5-14.5 [facility] Platelets [#/volume] in Blood by Automated count 244 10*3/uL 150-400 [facility] Differential cell count method - Blood [facility] Neutrophils/100 leukocytes in Blood by Automated count 84 % [facility] Lymphocytes/100 leukocytes in Blood by Automated count 13 % [facility] Monocytes/100 leukocytes in Blood by Automated count 3 % [facility] Eosinophils/100 leukocytes in Blood by Automated count 0 % [facility] Basophils/100 leukocytes in Blood by Automated count 0 % [facility] Neutrophils [#/volume] in Blood by Automated count 6.37 10*3/uL 1.8-7 .0 [facility] Lymphocytes [#/volume] in Blood by Automated count 0.96 10*3/uL 1.2-4 .0 L [facility] Monocytes [#/volume] in Blood by Automated count 0.19 10*3/uL 0-0.8 [facility] Eosinophils [#/volume] in Blood by Automated count 0.00 10*3/uL 0-0.5 [facility] Basophils [#/volume] in Blood by Automated count 0.02 10*3/uL 0-0.2 [facility] Nucleated erythrocytes/100 leukocytes [Ratio] in Blood by Automated count 0 /100{WBCs} 0-0 [facility] ID Date Data Source [id number] 05/19/2019 08:52[facility] Value Range Interpretation Code Description Data Lynn rce(s) Supporting Document(s) Bicarbonate [Moles/volume] in Serum 20 mmol/L 22-29 L [facility] Chloride [Moles/volume] in Serum or Plasma 97 mmol/L 98-107 L [facility] Creatinine [Mass/volume] in Serum or Plasma 0.59 mg/dL 0.50-0.90 [facility] Glucose [Mass/volume] in Serum or Plasma 182 mg/dL 70-140 H [facility] Potassium [Moles/volume] in Serum or Plasma 4.5 mmol/L 3.4-5.1 [facility] Sodium [Moles/volume] in Serum or Plasma 134 mmol/L 136-145 L [facility] Urea nitrogen [Mass/volume] in Serum or Plasma 10 mg/dL 6-20 [facility] Anion gap 3 in Serum or Plasma 17 mmol/L 8-15 H [facility] Osmolality of Serum or Plasma by calculation 281 mosm/kg 275-300 [facility] Creatinine/Urea nitrogen [Mass Ratio] in Serum or Plasma 16 [facility] Calcium [Mass/volume] in Serum or Plasma 8.4 mg/dL 8.6-10.0 L [facility] Glomerular filtration rate/1.73 sq M pre dicted among non-blacks [Volume Rate/Area] in Serum or Plasma by Creatinine-based formula (MDRD) >6 0 [facility] Glomerular filtration rate/1.73 sq M pre dicted among blacks [Volume Rate/Area] in Serum or Plasma by Creatinine-based formula (MDRD) >60 [facility] ID Date Data Source [id number] 05/19/2019 08:52:40 AM [facility] Value Range Interpretation Code Description Data Lynn rce(s) Supporting Document(s) Phosphate [Mass/volume] in Serum or Plasma 4.0 mg/dL 2.5-4.5 [facility] ID Date Data Source [id number] 05/19/2019 08:52:40 AM [facility] Name Value Range Interpretation Code Description Data Lynn rce(s) Supporting Document(s) Magnesium [Mass/volume] in Serum or Plasma 2.2 mg/dL 1.6-2.6 [facility] ID Date Data Source [id number] 05/18/2019 10:07:43 PM [facility] Name Value Range Interpretation Code Description Data Lynn rce(s) Supporting Document(s) Glucose [Mass/volume] in Capillary blood by Glucometer 213 mg/dL 70- 140 H [facility] ID Date Data Source [id number] 05/18/2019 05:20:43 PM [facility] Name Value Range Interpretation Code Description Data Lynn rce(s) Supporting Document(s) Glucose [Mass/volume] in Capillary blood by Glucometer 148 mg/dL 70- 140 H [facility] ID Date Data Source [id number] 05/18/2019 12:24:35 PM [facility] Name Value Range Interpretation Code Description Data Lynn rce(s) Supporting Document(s) Glucose [Mass/volume] in Capillary blood by Glucometer 127 mg/dL 70- 140 [facility] ID Date Data Source [id number] 05/18/2019 09:45:30 AM [facility] MR BRAIN WITH AND WITHOUT CONTRAST [id number] FINAL RESULTInterpreted by:Marietta Mendez MDHISTORY: Staging small cell lung cancer.COMPARISON: NoneTECHNIQUE: Multiplanar and multiecho MRI of the brain emphasizing relative T1 and T2*information without and with intravenous contrast administration was completed on a 1.5 Mitra magnet.FINDINGS: The study is degraded by motion.The diffusion-weighted sequences are unremarkable for an acute ischemic event. There are a few scattered patchy areas of T2 prolongation and more confluent lines in the left periatrial white matter which have nonspecific appearance and could represent mild chronic microvascular white matter ischemic changes in the appropriate clinical setting. In the left uncus there is a rim-enhancing lesion which measures approximately 0.7 cm in diameter. This center of the lesion appears cystic however the enhancement at the periphery raises the question of metastasis. There is no evidence of other enhancing abnormality. No gross evidence of leptomeningeal enhancement within the technical limitations of the study. The foramen magnum and basal cisterns are patent. The pituitary gland is not enlarged.The visualized paranasal sinuses are we ll-aerated.IMPRESSION:Rim-enhancing cystic otherwise lesion measuring approximately 0.7 cm in diameter in the left uncus is suspicious for metastasis.This document has been electronically signed by Marietta Mendez MD on 05/18/2019 9:43 AM Name Value Range Interpretation Code Description Data Lynn rce(s) Supporting Document(s) ID Date Data Source [id number] 05/18/2019 08:33:17 AM [facility] Name Value Range Interpretation Code Description Data Lynn rce(s) Supporting Document(s) Glucose [Mass/volume] in Capillary blood by Glucometer 142 mg/dL 70- 140 H [facility] ID Date Data Source [id number] 05/18/2019 03:07:42 AM [facility] Name Value Range Interpretation Code Description Data Lynn rce(s) Supporting Document(s) Leukocytes [#/volume] in Blood by Automated count 10.3 10*3/uL 4-10 H [facility] Erythrocytes [#/volume] in Blood by Automated count 3.88 10*6/uL 4.1- 5.3 L [facility] Hemoglobin [Mass/volume] in Blood 12.5 g/dL 11.5-15.5 [facility] Hematocrit [Volume Fraction] of Blood by Automated count 36.4 % 3 6-45 [facility] Erythrocyte mean corpuscular volume [Entitic volume] by Auto mated count 93.9 fL 80-96 [facility] Erythrocyte mean corpuscular hemoglobin [Entitic mass] by Automated count 32.3 pg 27-33 [facility] Erythrocyte mean corpuscular hemoglobin concentration [Mass/volume] by Automated count 34.4 g/dL 32.0-36.0 [facility] distribution width [Ratio] by Automated count 13.7 % 11.5-14.5 [facility] Platelets [#/volume] in Blood by Automated count 232 10*3/uL 150-400 [facility] Differential cell count method - Blood [facility] Neutrophils/100 leukocytes in Blood by Automated count 63 % [facility] Lymphocytes/100 leukocytes in Blood by Automated count 27 % [facility] Monocytes/100 leukocytes in Blood by Automated count 8 % [facility] Eosinophils/100 leukocytes in Blood by Automated count 1 % [facility] Basophils/100 leukocytes in Blood by Automated count 1 % [facility] Neutrophils [#/volume] in Blood by Automated count 6.48 10*3/uL 1.8-7 .0 [facility] Lymphocytes [#/volume] in Blood by Automated count 2.82 10*3/uL 1.2-4 .0 [facility] Monocytes [#/volume] in Blood by Automated count 0.84 10*3/uL 0-0.8 H [facility] Eosinophils [#/volume] in Blood by Automated count 0.07 10*3/uL 0-0.5 [facility] Basophils [#/volume] in Blood by Automated count 0.09 10*3/uL 0-0.2 [facility] Nucleated erythrocytes/100 leukocytes [Ratio] in Blood by Automated count 0 /100{WBCs} 0-0 [facility] ID Date Data Source [id number] 05/18/2019 03:32:32 AM EDT [facility] Name Value Range Interpretation Code Description Data Lynn rce(s) Supporting Document(s) Albumin [Mass/volume] in Serum or Plasma by Bromocresol green (BCG) dye binding method 3.2 g/dL 3.5-5.2 [facility] Bilirubin.total [Mass/volume] in Serum or Plasma 0.3 mg/dL <1.2 [facility] Calcium [Mass/volume] in Serum or Plasma 8.0 mg/dL 8.6-10.0 L [facility] Chloride [Moles/volume] in Serum or Plasma 100 mmol/L 98-107 [facility] Creatinine [Mass/volume] in Serum or Plasma 0.55 mg/dL 0.50-0.90 [facility] Glucose [Mass/volume] in Serum or Plasma 133 mg/dL 70-140 [facility] Alkaline phosphatase [Enzymatic activity/volume] in Serum or Plasma 52 U/L 35-104 [facility] Potassium [Moles/volume] in Serum or Plasma 4.4 mmol/L 3.4-5.1 [facility] Protein [Mass/volume] in Serum or Plasma 6.0 g/dL 6.4-8.3 L [facility] Sodium [Moles/volume] in Serum or Plasma 138 mmol/L 136-145 [facility] Aspartate aminotransferase [Enzymatic activity/volume] in Serum or Plasma 27 U/L <32 [facility] Urea nitrogen [Mass/volume] in Serum or Plasma 9 mg/dL 6-20 [facility] Osmolality of Serum or Plasma by calculation 286 mosm/kg 275-300 [facility] Creatinine/Urea nitrogen [Mass Ratio] in Serum or Plasma 17 [facility] Bicarbonate [Moles/volume] in Serum 25 mmol/L 22-29 [facility] Alanine aminotransferase [Enzymatic activity/volume] in Seru m or Plasma 20 U/L <33 [facility] Anion gap 3 in Serum or Plasma 13 mmol/L 8-15 [facility] Albumin/Globulin [Mass Ratio] in Serum or Plasma 1.1 [facility] Glomerular filtration rate/1.73 sq M pre dicted among non-blacks [Volume Rate/Area] in Serum or Plasma by Creatinine-based formula (MDRD) >6 0 [facility] Glomerular filtration rate/1.73 sq M pre dicted among blacks [Volume Rate/Area] in Serum or Plasma by Creatinine-based formula (MDRD) >60 [facility] ID Date Data Source [id number] 05/18/2019 12:57:05 PM [facility] Value Range Interpretation Code Description Data Lynn rce(s) Supporting Document(s) Magnesium [Mass/volume] in Serum or Plasma 2.2 mg/dL 1.6-2.6 [facility] ID Date Data Source [id number] 05/18/2019 12:57:05 PM [facility] Value Range Interpretation Code Description Data Lynn rce(s) Supporting Document(s) Phosphate [Mass/volume] in Serum or Plasma 2.6 mg/dL 2.5-4.5 [facility] ID Date Data Source [id number] 05/17/2019 09:52:36 PM [facility] Value Range Interpretation Code Description Data Lynn rce(s) Supporting Document(s) Glucose [Mass/volume] in Capillary blood by Glucometer 137 mg/dL 70- 140 [facility] ID Date Data Source [id number] 05/17/2019 06:54:15 PM [facility] Value Range Interpretation Code Description Data Lynn rce(s) Supporting Document(s) Glucose [Mass/volume] in Capillary blood by Glucometer 127 mg/dL 70- 140 [facility] ID Date Data Source [id number] 05/17/2019 12:32:17 PM EDT [facility] Name Value Range Interpretation Code Description Data Lynn rce(s) Supporting Document(s) Glucose [Mass/volume] in Capillary blood by Glucometer 128 mg/dL 70- 140 [facility] ID Date Data Source [id number] 05/17/2019 10:03:51 AM EDT [facility] Name Value Range Interpretation Code Description Data Lynn rce(s) Supporting Document(s) EKG [facility] [id number]xa4O9K4oFOyL9KjfWBek0fjI7ExL2NnFFXpGYRCTX7GpMOz jb2 [file] MDAwMDAgbiAKMDAwMDAwMTQwNiAwMDAwMCBuIAowMD GzKXO7BTHqNKTiWHPbML1rAuZcRJGyXJZ5MFeyTCZlRACciqGONXJxCMBzEMybXECoNSWeYASuPVodNL XyFMKhYWM2WFZiRELzNI5iOpQdEXKhVFOrMEIkIaC4RfPhBaCLeOIfvPoyxoe7POhhW4g2VAFzEAkeVN 6uyqDcYNTkKircVq9icQQ3UAMvMrpMOt5Hu4XkuxU1toIrQaS3GNV2EmShSM4U ID Date Data Source [id number] 05/17/2019 09:48:07 AM EDT [facility] Name Value Range Interpretation Code Description Data Lynn rce(s) Supporting Document(s) Troponin T.cardiac [Mass/volume] in Serum or Plasma <0.01 [facility] ID Date Data Source [id number] 05/17/2019 08:24:51 AM EDT [facility] Name Value Range Interpretation Code Description Data Lynn rce(s) Supporting Document(s) History and Physical [facility] [id number]L7cF7kCCW5DMmGPiYcHkPdQaBl lbm [file] [employer] [file] [id number] ID Date Data Source [id number] [facility] Interpretation Code Description Data Lynn rce(s) Supporting Document(s) Glucose [Mass/volume] in Capillary blood by Glucometer 143 mg/dL 70- 140 H [facility] ID Date Data Source [id number] [facility] Value Range Interpretation Code Description Data Lynn rce(s) Supporting Document(s) Troponin T.cardiac [Mass/volume] in Serum or Plasma <0.01 [facility] ID Date Data Source [id number] 05/17/2019 02:58:34 AM [facility] Value Range Interpretation Code Description Data Lynn rce(s) Supporting Document(s) Albumin [Mass/volume] in Serum or Plasma by Bromocresol green (BCG) dye binding method 3.3 g/dL 3.5-5.2 [facility] Bilirubin.total [Mass/volume] in Serum or Plasma 0.3 mg/dL <1.2 [facility] Calcium [Mass/volume] in Serum or Plasma 8.3 mg/dL 8.6-10.0 L [facility] Chloride [Moles/volume] in Serum or Plasma 101 mmol/L 98-107 [facility] Creatinine [Mass/volume] in Serum or Plasma 0.68 mg/dL 0.50-0.90 [facility] Glucose [Mass/volume] in Serum or Plasma 206 mg/dL 70-140 H [facility] Alkaline phosphatase [Enzymatic activity/volume] in Serum or Plasma 54 U/L 35-104 [facility] Potassium [Moles/volume] in Serum or Plasma 5.4 mmol/L 3.4-5.1 H [facility] Protein [Mass/volume] in Serum or Plasma 6.4 g/dL 6.4-8.3 [facility] Sodium [Moles/volume] in Serum or Plasma 134 mmol/L 136-145 L [facility] Aspartate aminotransferase [Enzymatic activity/volume] in Serum or Plasma 18 U/L <32 [facility] Urea nitrogen [Mass/volume] in Serum or Plasma 12 mg/dL 6-20 [facility] Osmolality of Serum or Plasma by calculation 284 mosm/kg 275-300 [facility] Creatinine/Urea nitrogen [Mass Ratio] in Serum or Plasma 18 [facility] Bicarbonate [Moles/volume] in Serum 20 mmol/L 22-29 L [facility] Alanine aminotransferase [Enzymatic activity/volume] in Seru m or Plasma 14 U/L <33 [facility] Anion gap 3 in Serum or Plasma 13 mmol/L 8-15 [facility] Albumin/Globulin [Mass Ratio] in Serum or Plasma 1.1 [facility] Glomerular filtration rate/1.73 sq M pre dicted among non-blacks [Volume Rate/Area] in Serum or Plasma by Creatinine-based formula (MDRD) >6 0 [facility] Glomerular filtration rate/1.73 sq M pre dicted among blacks [Volume Rate/Area] in Serum or Plasma by Creatinine-based formula (MDRD) >60 [facility] ID Date Data Source [id number] 05/17/2019 03:00:40 AM EDT [facility] Name Value Range Interpretation Code Description Data Lynn rce(s) Supporting Document(s) Leukocytes [#/volume] in Blood by Automated count 19.1 10*3/uL 4-10 H [facility] Erythrocytes [#/volume] in Blood by Automated count 3.95 10*6/uL 4.1- 5.3 L [facility] Hemoglobin [Mass/volume] in Blood 12.7 g/dL 11.5-15.5 [facility] Hematocrit [Volume Fraction] of Blood by Automated count 37.0 % 3 6-45 [facility] Erythrocyte mean corpuscular volume [Entitic volume] by Auto mated count 93.6 fL 80-96 [facility] Erythrocyte mean corpuscular hemoglobin [Entitic mass] by Automated count 32.2 pg 27-33 [facility] Erythrocyte mean corpuscular hemoglobin concentration [Mass/volume] by Automated count 34.4 g/dL 32.0-36.0 [facility] E[facility]th[facility] distribution width [Ratio] by Automated count 13.4 % 11.5-14.5 [facility] Platelets [#/volume] in Blood by Automated count 265 10*3/uL 150-400 [facility] Confirmed Differential cell count method - Blood [facility] Neutrophils/100 leukocytes in Blood by Automated count 85 % [facility] Lymphocytes/100 leukocytes in Blood by Automated count 9 % [facility] Monocytes/100 leukocytes in Blood by Automated count 6 % [facility] Eosinophils/100 leukocytes in Blood by Automated count 0 % [facility] Basophils/100 leukocytes in Blood by Automated count 0 % [facility] Neutrophils [#/volume] in Blood by Automated count 16.20 10*3/uL 1.8- 7.0 H [facility] Lymphocytes [#/volume] in Blood by Automated count 1.72 10*3/uL 1.2-4 .0 [facility] Monocytes [#/volume] in Blood by Automated count 1.07 10*3/uL 0-0.8 H [facility] Eosinophils [#/volume] in Blood by Automated count 0.01 10*3/uL 0-0.5 [facility] Basophils [#/volume] in Blood by Automated count 0.08 10*3/uL 0-0.2 [facility] Nucleated erythrocytes/100 leukocytes [Ratio] in Blood by Automated count 0 /100{WBCs} 0-0 [facility] ID Date Data Source [id number] 05/16/2019 11:14:46 PM T [facility] CT ABDOMEN PELVIS WITH CONTRAST [id number] AL RESULTInterpreted by:VAHE WigginsROCEDURE INFORMATION: Exam: CT Abdomen And Pelvis With Contrast Exam date and time: 05/16/2019 10:59 PM Age: 54 years old Clinical indication: Abdominal pain; Acute; Additional info: Metastasis work up TECHNIQUE: Imaging protocol: Computed tomography of the abdomen and pelvis with intravenous contrast. Radiation optimization: All CT scans at this facility use at least one of these dose optimization techniques: automated exposure control; mA and/or kV adjustment per patient size (includes targeted exams where dose is matched to clinical indication); or iterative reconstruction. Contrast material: OMNI 300; Contrast volume: 100 ml; Contrast route: IV; COMPARISON: No relevant prior studies available. FINDINGS: Liver: Normal. No mass. Gallbladder and bile ducts: Normal. No calcified stones. No ductal dilation. Pancreas: Normal. No ductal dilation. Spleen: Normal. No splenomegaly. Adrenals: Normal. No mass. Kidneys an d ureters: Normal. No hydronephrosis. Stomach and bowel: Tiny right effusion with mild adjacent atelectasis. Appendix: Short appendix. Intraperitoneal space: Slight infiltration anterior omental fat superiorly adjacent liver with a few tiny foci of air. Please correlate for recent procedure. Vasculature: Unremarkable. No abdominal aortic aneurysm. Lymph nodes: Unremarkable. No enlarged lymph nodes. Bladder: Tiny focus of air non dependently within the bladder. Reproductive: Unremarkable as visualized. Bones/joints: Unremarkable. No acute fracture. Soft tissues: Moderate subcutaneous emphysema anterior abdominal wall. Other findings: Small fat containing. Few tiny foci air adjacent to pericardium anteriorly. IMPRESSION: 1. No definite metastatic disease abdomen/pelvis. 2. Moderate subcutaneous emphysema anterior abdominal wall as well as a few tiny foci of air adjacent to the visualized pericardium. There is also slight infiltration of the anterior omental fat superiorly with a tiny focus of air. These findings are presumably related to recent intervention. Please correlate clinically. 3. Tiny focus of air non dependently within the bladder presumably related to recent instrumentation. Lacking this history, gas- forming cystitis should be excluded. 4. Tiny right pleural effusion with mild adjacent atelectasis. THIS DOCUMENT HAS BEEN ELECTRONICALLY SIGNED BY EDMUNDO GONZALEZ MDThis document has been electronically signed by Edmundo Gonzalez MD on 05/16/2019 11:14 PM Name Value Range Interpretation Code Description Data Lynn rce(s) Supporting Document(s) ID Date Data Source [id number] 05/16/2019 08:57:26 PM [facility] Value Range Interpretation Code Description Data Lynn rce(s) Supporting Document(s) Glucose [Mass/volume] in Capillary blood by Glucometer 181 mg/dL 70- 140 H [facility] ID Date Data Source [id number] 05/16/2019 06:49:49 PM EDT [facility] Name Value Range Interpretation Code Description Data Lynn rce(s) Supporting Document(s) Leukocytes [#/volume] in Blood by Automated count 20.0 10*3/uL 4-10 H [facility] Erythrocytes [#/volume] in Blood by Automated count 4.11 10*6/uL 4.1- 5.3 [facility] Hemoglobin [Mass/volume] in Blood 13.1 g/dL 11.5-15.5 [facility] Hematocrit [Volume Fraction] of Blood by Automated count 38.2 % 3 6-45 [facility] Erythrocyte mean corpuscular volume [Entitic volume] by Auto mated count 92.8 fL 80-96 [facility] Erythrocyte mean corpuscular hemoglobin [Entitic mass] by Automated count 32.0 pg 27-33 [facility] Erythrocyte mean corpuscular hemoglobin concentration [Mass/volume] by Automated count 34.4 g/dL 32.0-36.0 [facility] Erythrocyte distribution width [Ratio] by Automated count 13.3 % 11.5-14.5 [facility] Platelets [#/volume] in Blood by Automated count 287 10*3/uL 150-400 [facility] Differential cell count method - Blood [facility] Neutrophils/100 leukocytes in Blood by Automated count 89 % [facility] Lymphocytes/100 leukocytes in Blood by Automated count 7 % [facility] Monocytes/100 leukocytes in Blood by Automated count 4 % [facility] Eosinophils/100 leukocytes in Blood by Automated count 0 % [facility] Basophils/100 leukocytes in Blood by Automated count 0 % [facility] Neutrophils [#/volume] in Blood by Automated count 17.61 10*3/uL 1.8- 7.0 H [facility] Lymphocytes [#/volume] in Blood by Automated count 1.48 10*3/uL 1.2-4 .0 [facility] Monocytes [#/volume] in Blood by Automated count 0.88 10*3/uL 0-0.8 H [facility] Eosinophils [#/volume] in Blood by Automated count 0.00 10*3/uL 0-0.5 [facility] Basophils [#/volume] in Blood by Automated count 0.07 10*3/uL 0-0.2 [facility] Nucleated erythrocytes/100 leukocytes [Ratio] in Blood by Automated count 0 /100{WBCs} 0-0 [facility] ID Date Data Source [id number] 05/16/2019 07:13:34 PM EDT [facility] Name Value Range Interpretation Code Description Data Lynn rce(s) Supporting Document(s) Troponin T.cardiac [Mass/volume] in Serum or Plasma <0.01 [facility] ID Date Data Source [id number] 05/16/2019 07:13:34 PM EDT [facility] Name Value Range Interpretation Code Description Data Lynn rce(s) Supporting Document(s) Albumin [Mass/volume] in Serum or Plasma by Bromocresol green (BCG) dye binding method 3.6 g/dL 3.5-5.2 [facility] Bilirubin.total [Mass/volume] in Serum or Plasma 0.3 mg/dL <1.2 [facility] Calcium [Mass/volume] in Serum or Plasma 8.9 mg/dL 8.6-10.0 [facility] Chloride [Moles/volume] in Serum or Plasma 96 mmol/L 98-107 L [facility] Creatinine [Mass/volume] in Serum or Plasma 0.76 mg/dL 0.50-0.90 [facility] Glucose [Mass/volume] in Serum or Plasma 179 mg/dL 70-140 H [facility] Alkaline phosphatase [Enzymatic activity/volume] in Serum or Plasma 58 U/L 35-104 [facility] Potassium [Moles/volume] in Serum or Plasma 5.1 mmol/L 3.4-5.1 [facility] Protein [Mass/volume] in Serum or Plasma 6.9 g/dL 6.4-8.3 [facility] Sodium [Moles/volume] in Serum or Plasma 131 mmol/L 136-145 L [facility] Aspartate aminotransferase [Enzymatic activity/volume] in Serum or Plasma 18 U/L <32 [facility] Urea nitrogen [Mass/volume] in Serum or Plasma 12 mg/dL 6-20 [facility] Osmolality of Serum or Plasma by calculation 276 mosm/kg 275-300 [facility] Creatinine/Urea nitrogen [Mass Ratio] in Serum or Plasma 16 [facility] Bicarbonate [Moles/volume] in Serum 21 mmol/L 22-29 L [facility] Alanine aminotransferase [Enzymatic activity/volume] in Seru m or Plasma 16 U/L <33 [facility] Anion gap 3 in Serum or Plasma 14 mmol/L 8-15 [facility] Albumin/Globulin [Mass Ratio] in Serum or Plasma 1.1 [facility] Glomerular filtration rate/1.73 sq M pre dicted among non-blacks [Volume Rate/Area] in Serum or Plasma by Creatinine-based formula (MDRD) >6 0 [facility] Glomerular filtration rate/1.73 sq M pre dicted among blacks [Volume Rate/Area] in Serum or Plasma by Creatinine-based formula (MDRD) >60 [facility] ID Date Data Source [id number] 05/16/2019 05:40:42 PM EDT [facility] Name Value Range Interpretation Code Description Data Lynn rce(s) Supporting Document(s) Glucose [Mass/volume] in Capillary blood by Glucometer 187 mg/dL 70- 140 H [facility] Procedure Social History Code Duration Value Status Description Data Source(s ) Alcohol intake 03/31/2020 12:00:00 AM EST Ex-drinker (finding) comp leted Ex- drinker (finding) [facility] Tobacco use and exposure 03/31/2020 12:00:00 AM EST Never used co mpleted Never used [facility] Cigarette pack-years 03/31/2020 12:00:00 AM EST UNK completed [facility] Cigarettes smoked current (pack per day) - Reported 03/31/19 12:00:00 AM EST UNK [facility] Smoking 03/31/2020 12:00:00 AM EST Former smoker completed Former smoker [facility] Smoking 03/11/2020 12:00:00 AM EST Former Smoker completed Former Smoker eCW1 ([facility]) Smoking 03/11/2020 12:00:00 AM EST Former Smoker completed Former Smoker eCW1 ([facility]) Alcohol intake 03/09/2020 12:00:00 AM EST Ex-drinker (finding) comp leted Ex- drinker (finding) [facility] Alcohol intake 03/06/2020 12:00:00 AM EST Ex-drinker (finding) comp leted Ex- drinker (finding) [facility] Alcohol intake 02/24/2020 12:00:00 AM EST Ex-drinker (finding) comp leted Ex- drinker (finding) [facility] Smoking 01/29/2020 12:00:00 AM EST Former Smoker completed Former Smoker eCW1 ([facility]) Alcohol intake 01/26/2020 12:00:00 AM EST Ex-drinker (finding) comp leted Ex- drinker (finding) [facility] Alcohol intake 01/21/2020 12:00:00 AM EST Ex-drinker (finding) comp leted Ex- drinker (finding) [facility] Alcohol intake 01/19/2020 12:00:00 AM EST Ex-drinker (finding) comp leted Ex- drinker (finding) [facility] Alcohol intake 01/12/2020 12:00:00 AM EST Ex-drinker (finding) comp leted Ex- drinker (finding) [facility] Alcohol intake 01/02/2020 12:00:00 AM EST Ex-drinker (finding) comp leted Ex- drinker (finding) [facility] Smoking 01/01/2020 12:00:00 AM EST Former Smoker completed Former Smoker eCW1 ([facility]) Smoking 01/01/2020 12:00:00 AM EST Former Smoker completed Former Smoker eCW1 ([facility]) Alcohol intake 12/25/2019 12:00:00 AM EDT Ex-drinker (finding) comp leted Ex- drinker (finding) [facility] Alcohol intake 12/04/2019 12:00:00 AM EDT Ex-drinker (finding) comp leted Ex- drinker (finding) [facility] Alcohol intake 11/19/2019 12:00:00 AM EDT Ex-drinker (finding) comp leted Ex- drinker (finding) [facility] Alcohol intake 11/13/2019 12:00:00 AM EDT Ex-drinker (finding) comp leted Ex- drinker (finding) [facility] Alcohol intake 10/28/2019 12:00:00 AM EDT Ex-drinker (finding) comp leted Ex- drinker (finding) [facility] Alcohol intake 10/15/2019 12:00:00 AM EDT Ex-drinker (finding) comp leted Ex- drinker (finding) [facility] Alcohol intake 10/02/2019 12:00:00 AM EDT Ex-drinker (finding) comp leted Ex- drinker (finding) [facility] Alcohol intake 09/15/2019 12:00:00 AM EDT Ex-drinker (finding) comp leted Ex- drinker (finding) [facility] Cigarette pack-years 09/15/2019 12:00:00 AM EDT UNK completed [facility] Cigarettes smoked current (pack per day) - Reported 09/15/19 12:00:00 AM EDT UNK completed [facility] Smoking 09/15/2019 12:00:00 AM EDT Former smoker completed Former smoker [facility] Alcohol intake 09/11/2019 12:00:00 AM EDT Ex-drinker (finding) comp leted Ex- drinker (finding) [facility] Cigarette pack-years 09/11/2019 12:00:00 AM EDT UNK completed [facility] Cigarettes smoked current (pack per day) - Reported 09/11/19 12:00:00 AM EDT UNK completed [facility] Smoking 09/11/2019 12:00:00 AM EDT Former smoker completed Former smoker [facility] Smoking 09/09/2019 12:00:00 AM EDT Former Smoker completed Former Smoker eCW1 ([facility]) Smoking 09/09/2019 12:00:00 AM EDT Former Smoker completed Former Smoker eCW1 ([facility]) Alcohol intake 08/20/2019 12:00:00 AM EDT Ex-drinker (finding) comp leted Ex- drinker (finding) [facility] Cigarette pack-years 08/20/2019 12:00:00 AM EDT UNK [facility] Cigarettes smoked current (pack per day) - Reported 08/20/19 12:00:00 AM EDT UNK completed [facility] Smoking 08/20/2019 12:00:00 AM EDT Former smoker completed Former smoker [facility] Alcohol intake 07/23/2019 12:00:00 AM EDT Ex-drinker (finding) comp leted Ex- drinker (finding) [facility] Cigarette pack-years 07/23/2019 12:00:00 AM EDT UNK [facility] Cigarettes smoked current (pack per day) - Reported 07/23/19 12:00:00 AM EDT UNK completed [facility] Smoking 07/23/2019 12:00:00 AM EDT Former smoker completed Former smoker [facility] Alcohol intake 07/02/2019 12:00:00 AM EDT Ex-drinker (finding) comp leted Ex- drinker (finding) [facility] Cigarette pack-years 07/02/2019 12:00:00 AM EDT UNK completed [facility] Cigarettes smoked current (pack per day) - Reported 07/02/19 12:00:00 AM EDT UNK completed [facility] Smoking 07/02/2019 12:00:00 AM EDT Current every day smoker co mpleted Current every day smoker [facility] Alcohol intake 06/11/2019 12:00:00 AM EDT Ex-drinker (finding) comp leted Ex- drinker (finding) [facility] Cigarette pack-years 06/11/2019 12:00:00 AM EDT UNK [facility] Cigarettes smoked current (pack per day) - Reported 06/11/19 12:00:00 AM EDT UNK completed [facility] Smoking 06/11/2019 12:00:00 AM EDT Current every day smoker co mpleted Current every day smoker [facility] Alcohol intake 05/16/2019 12:00:00 AM EDT Ex-drinker (finding) comp leted Ex- drinker (finding) [facility] Cigarette pack-years 05/16/2019 12:00:00 AM EDT UNK [facility] Cigarettes smoked current (pack per day) - Reported 05/16/19 12:00:00 AM EDT UNK completed [facility] Smoking 05/16/2019 12:00:00 AM EDT Current every day smoker co mpleted Current every day smoker [facility] 05/16/2019 12:00:00 AM EDT Cigarette Smoker completed Cig arette Smoker [facility] 05/16/2019 12:00:00 AM EDT Current smoker completed Curre nt smoker [facility] 05/16/2019 12:00:00 AM EDT Cigarette Smoker completed Cig arette Smoker [facility] 05/16/2019 12:00:00 AM EDT Current smoker completed Curre nt smoker [facility] 05/16/2019 12:00:00 AM EDT Cigarette Smoker completed Cig arette Smoker [facility] 05/16/2019 12:00:00 AM EDT Current smoker completed Curre nt smoker [facility] 05/16/2019 12:00:00 AM EDT Cigarette Smoker completed Cig arette Smoker [facility] 05/16/2019 12:00:00 AM EDT Current smoker completed Curre nt smoker [facility] 05/16/2019 12:00:00 AM EDT Cigarette Smoker completed Cig arette Smoker [facility] 05/16/2019 12:00:00 AM EDT Current smoker completed Curre nt [facility] Vital Signs ID Date Data Source UNK Name Value Range Interpretation Code Description Data Source(s) Diastolic blood pressure 62 mm[Hg] 62 mm[Hg] eCW1 ([facility]) Systolic blood pressure 110 mm[Hg] 110 mm[Hg] e CW1 ([facility]) Body temperature 98.1 [degF] 98.1 [degF] eCW1 ( [facility]) Respiratory rate 18 /min 18 /min eCW1 ([facility]) Heart rate 103 /min 103 /min eCW[facility] Body mass index (BMI) [Ratio] 28.59 kg/m2 28.59 kg/m2 eCW1 ([facility]) Body height 63 [in_i] 63 [in_i] eCW1 ([facility]) Body weight 161.4 [lb_av] 161.4 [lb_av] eCW1 ([facility]) Diastolic blood pressure 72 mm[Hg] 72 mm[Hg] eCW1 ([facility]) Systolic blood pressure 120 mm[Hg] 120 mm[Hg] e CW1 ([facility]) Body temperature 99.6 [degF] 99.6 [degF] eCW1 ( [facility]) Respiratory rate 18 /min 18 /min eCW1 ([facility]) Heart rate 103 /min 103 /min eCW1 ([facility] Body mass index (BMI) [Ratio] 29.05 kg/m2 29.05 kg/m2 W1 ([facility]) Body height 63 [in_i] 63 [in_i] eCW1 ([facility]) Body weight 164 [lb_av] 164 [lb_av] eCW1 ([facility]) Diastolic blood pressure--supine 76 mm[Hg] 76 mm[Hg] MEDENT ([facility]) Ra, med cuff Systolic blood pressure--supine 104 mm[Hg] 104 mm[Hg] MEDENT ([facility]) Ra, med cuff Diastolic blood pressure--sitting 70 mm[Hg] 70 mm[Hg] MEDENT ([facility]) Ra, med cuff Systolic blood pressure--sitting 98 mm[Hg] 98 mm[Hg] MEDENT ([facility]) Ra, med cuff Respiratory rate 16 /min 16 /min MEDENT ( [facility]) Heart rate 72 /min 72 /min MEDENT ([facility] Body mass index (BMI) [Ratio] 30.3 kg/m2 30.3 k g/m2 MEDENT ([facility]) Body height 63 [in_i] 63 [in_i] MEDENT ([facility] 5'3" Body weight 171.00 [lb_av] 171.00 [lb_av] MEDEN T ([facility]) Diastolic blood pressure 70 mm[Hg] 70 mm[Hg] eCW1 ([facility]) Systolic blood pressure 120 mm[Hg] 120 mm[Hg] e CW1 ([facility]) Body temperature 97.4 [degF] 97.4 [degF] eCW1 ( [facility]) Respiratory rate 20 /min 20 /min eCW1 ([facility]) Heart rate 132 /min 132 /min eCW1 ([facility]) Body mass index (BMI) [Ratio] 30.15 kg/m2 30.15 kg/m2 eCW1 ([facility]) Body height 63 [in_i] 63 [in_i] eCW1 ([facility]) Body weight 170.2 [lb_av] 170.2 [lb_av] eCW1 ([facility]) Diastolic blood pressure 70 mm[Hg] 70 mm[Hg] eCW1 ([facility]) Systolic blood pressure 110 mm[Hg] 110 mm[Hg] e CW1 ([facility]) Body temperature 96.8 [degF] 96.8 [degF] eCW1 ( [facility]) Respiratory rate 18 /min 18 /min eCW1 ([facility]) Heart rate 95 /min 95 /min eCW1 ([facility]) Body mass index (BMI) [Ratio] 32.17 kg/m2 32.17 kg/m2 eCW1 ([facility]) Body height 63 [in_i] 63 [in_i] eCW1 ([facility]) Body weight 181.6 [lb_av] 181.6 [lb_av] eCW1 ([facility]) Diastolic blood pressure 68 mm[Hg] 68 mm[Hg] eCW1 ([facility]) Systolic blood pressure 120 mm[Hg] 120 mm[Hg] e CW1 ([facility]) Body temperature 97.1 [degF] 97.1 [degF] eCW1 ( [facility]) Respiratory rate 18 /min 18 /min eCW1 ([facility]) Heart rate 96 /min 96 /min eCW1 ([facility]) Body mass index (BMI) [Ratio] 31.49 kg/m2 31.49 kg/m2 eCW1 ([facility]) Body height 63 [in_us] 63 [in_us] eCW1 ([facility]) Body weight Measured 177.8 [lb_av] 177.8 [lb_av ] eCW1 ([facility]) Diastolic blood pressure 72 mm[Hg] 72 mm[Hg] eCW1 ([facility]) Systolic blood pressure 120 mm[Hg] 120 mm[Hg] e CW1 ([facility]) Body temperature 97.4 [degF] 97.4 [degF] eCW1 ( [facility]) Respiratory rate 18 /min 18 /min eCW1 ([facility]) Heart rate 98 /min 98 /min eCW1 ([facility]) Body mass index (BMI) [Ratio] 33.72 kg/m2 33.72 kg/m2 eCW1 ([facility]) Body height 63 [in_us] 63 [in_us] eCW1 ([facility]) Body weight Measured 190.4 [lb_av] 190.4 [lb_av ] eCW1 ([facility]) ID Date Data Source [id number] 03/31/2020 03:20:01 PM [facility] Name Value Range Interpretation Code Description Data Source(s) WEIGHT RECORDED 160.8 lb 160.8 lb [facility] ID Date Data Source [id number] 03/17/2020 12:53:42 PM [facility] Name Value Range Interpretation Code Description Data Source(s) WEIGHT RECORDED 159 lb 159 lb [facility] Body height Measured 60.98 in 60.98 in [facility] ID Date Data Source [id number] 03/10/2020 09:01:32 AM [facility] Value Range Interpretation Code Description Data Source(s) WEIGHT RECORDED 165 lb 165 lb [facility] Body height Measured 60.98 in 60.98 in [facility] ID Date Data Source [id number] 02/24/2020 02:17:47 PM [facility] Name Value Range Interpretation Code Description Data Source(s) WEIGHT RECORDED 163 lb 163 lb [facility] ID Date Data Source [id number] 01/26/2020 02:26:40 PM [facility] Value Range Interpretation Code Description Data Source(s) WEIGHT RECORDED 162 lb 162 lb [facility] Body height Measured 61 in 61 in [facility] ID Date Data Source [id number] 01/21/2020 03:11:36 PM [facility] Name Value Range Interpretation Code Description Data Source(s) WEIGHT RECORDED 163.4 lb 163.4 lb [facility] ID Date Data Source [id number] 01/21/2020 02:09:53 PM [facility] Name Value Range Interpretation Code Description Data Source(s) WEIGHT RECORDED 165 lb 165 lb [facility] ID Date Data Source [id number] 01/19/2020 10:09:38 AM [facility] Name Value Range Interpretation Code Description Data Source(s) WEIGHT RECORDED 168.2 lb 168.2 lb [facility] ID Date Data Source [id number] 01/20/2020 03:54:51 PM EST [facility] Hospital Name Value Range Interpretation Code Description Data Source(s) WEIGHT RECORDED [address] [facility] Hospital ID Date Data Source [id number] 12/25/2019 03:33:46 PM EDT [facility] Hospital Name Value Range Interpretation Code Description Data Source(s) WEIGHT RECORDED 172.[address] [facility] Hospital ID Date Data Source [id number] 12/04/2019 03:10:01 PM EDT [facility] Hospital Name Value Range Interpretation Code Description Data Source(s) WEIGHT RECORDED 180.6 lb 180.6 lb [facility] ID Date Data Source [id number] 12/02/2019 12:02:17 PM EDT [facility] Name Value Range Interpretation Code Description Data Source(s) WEIGHT RECORDED 181.8 lb 181.8 lb [facility] ID Date Data Source [id number] 11/15/2019 08:47:36 AM EDT [facility] Name Value Range Interpretation Code Description Data Source(s) WEIGHT RECORDED 185.2 lb 185.2 lb [facility] ID Date Data Source [id number] 10/28/2019 09:02:08 AM EDT [facility] Hospital Name Value Range Interpretation Code Description Data Source(s) WEIGHT RECORDED 185.2 lb 185.2 lb [facility] ID Date Data Source [id number] 10/15/2019 05:19:44 PM EDT [facility] Hospital Name Value Range Interpretation Code Description Data Source(s) WEIGHT RECORDED 183.[address] [facility] Hospital ID Date Data Source [id number] 10/08/2019 06:10:48 PM EDT [facility] Hospital Name Value Range Interpretation Code Description Data Source(s) WEIGHT RECORDED 183.[address] [facility] Hospital ID Date Data Source [id number] 10/02/2019 02:41:44 PM EDT [facility] Name Value Range Interpretation Code Description Data Source(s) WEIGHT RECORDED [address] [facility] Hospital ID Date Data Source [id number] 09/25/2019 09:00:20 AM EDT [facility] Name Value Range Interpretation Code Description Data Source(s) WEIGHT RECORDED 181.6 lb 181.6 lb [facility] ID Date Data Source [id number] 09/16/2019 02:06:07 PM EDT [facility] Name Value Range Interpretation Code Description Data Source(s) WEIGHT RECORDED 176 lb 176 lb [facility] ID Date Data Source [id number] 09/22/2019 10:41:08 AM EDT [facility] Name Value Range Interpretation Code Description Data Source(s) WEIGHT RECORDED 179.4 lb 179.4 lb [facility] ID Date Data Source [id number] 08/26/2019 02:07:52 PM EDT [facility] Value Range Interpretation Code Description Data Source(s) WEIGHT RECORDED 176.2 lb 176.2 lb [facility] ID Date Data Source [id number] 08/05/2019 09:13:03 AM EDT [facility] Value Range Interpretation Code Description Data Source(s) WEIGHT RECORDED 177.8 lb 177.8 lb [facility] ID Date Data Source [id number] 07/22/2019 11:10:56 AM EDT [facility] Name Value Range Interpretation Code Description Data Source(s) WEIGHT RECORDED 177 lb 177 lb [facility] ID Date Data Source [id number] 07/04/2019 07:56:29 AM EDT [facility] Value Range Interpretation Code Description Data Source(s) WEIGHT RECORDED 184 lb 184 lb [facility] ID Date Data Source [id number] 06/12/2019 08:13:51 AM EDT [facility] Name Value Range Interpretation Code Description Data Source(s) WEIGHT RECORDED 184.6 lb 184.6 lb [facility] ID Date Data Source [id number] 05/29/2019 09:03:46 AM EDT [facility] Name Value Range Interpretation Code Description Data Source(s) WEIGHT RECORDED 190.7 lb 190.7 lb [facility] Body height Measured 63.19 in 63.19 in [facility] Patient Treatment Plan of Care Planned Activity Planned Date Details Description Data Source (s) Magnesium Oxide 400 MG Oral Capsule 03/31/2020 12:00:00 AM [facility] Ondansetron 8 MG Oral Tablet 03/31/2020 12:00:00 AM [facility] Etoposide 50 MG Oral Capsule 03/31/2020 12:00:00 AM [facility] Dexamethasone 4 MG Oral Tablet 03/31/2020 12:00:00 AM [facility] Lorazepam 0.5 MG Oral Tablet 03/09/2020 12:00:00 AM [facility] Lorazepam 0.5 MG Oral Tablet 02/04/2020 12:00:00 AM [facility] 200 ACTUAT Albuterol 0.09 MG/ACTUAT Metered Dose Inhal er [Ventolin] 01/28/2020 12:00:00 AM [place] [address] ([facility]) Cortisporin [id number] 01/28/2020 12:00:00 AM [place] [address] ([facility]) Acetaminophen 325 MG / Hydrocodone Bitartrate 5 MG Ora l Tablet 01/12/2020 12:00:[address] [facility] atorvastatin 20 MG Oral Tablet 01/01/2020 12:00:00 AM EST [facility] ([facility]) atorvastatin 20 MG Oral Tablet 01/01/2020 12:00:00 AM EST [facility] ([facility]) Clobetasol Propionate E 0.05 % 01/01/2020 12:00:00 AM EST [facility] ([facility]) atorvastatin 20 MG Oral Tablet 01/01/2020 12:00:00 AM EST [facility] ([facility]) Clobetasol Propionate E 0.05 % 01/01/2020 12:00:00 AM EST [facility] ([facility]) atorvastatin 20 MG Oral Tablet 01/01/2020 12:00:00 AM EST [facility] ([facility]) Levothyroxine Sodium 0.125 MG Oral Tablet 12/04/2019 12:00:00 AM [facility] Levothyroxine Sodium 0.125 MG Oral Tablet 11/25/2019 12:00:00 AM [facility] Levothyroxine Sodium 0.05 MG Oral Tablet 11/13/2019 12:00:00 AM [facility] Levothyroxine Sodium 0.025 MG Oral Tablet 11/13/2019 12:00:00 AM [facility] Dexamethasone 2 MG Oral Tablet 10/15/2019 12:00:00 AM [facility] Dexamethasone 2 MG Oral Tablet 10/15/2019 12:00:00 AM [facility] Memantine hydrochloride 10 MG Oral Tablet 09/16/2019 12:00:00 AM [facility] Memantine HCl 28 x 5 MG & 21 x 10 MG Oral Tablet (NAME NDA TITRATION PACK) 09/16/2019 12:00:00 AM [facility] Levothyroxine Sodium 0.025 MG Oral Tablet 09/11/2019 12:00:00 AM [facility] Ondansetron 8 MG Oral Tablet 07/24/2019 12:00:00 AM [facility] Dexamethasone 4 MG Oral Tablet 07/24/2019 12:00:00 AM [facility] Etoposide 50 MG Oral Capsule 07/24/2019 12:00:00 AM [facility] Loratadine 10 MG Oral Tablet 07/23/2019 12:00:00 AM [facility] Allopurinol 300 MG Oral Tablet 07/09/2019 12:00:00 AM [place] [address] ([facility]) Allopurinol 300 MG Oral Tablet 07/09/2019 12:00:00 AM [place] [address] ([facility]) Allopurinol 300 MG Oral Tablet 07/09/2019 12:00:00 AM [place] [address] ([facility]) Levothyroxine Sodium 0.075 MG Oral Tablet 07/08/2019 12:00:00 AM [facility] Dexamethasone 4 MG Oral Tablet 07/03/2019 12:00:00 AM [facility] Etoposide 50 MG Oral Capsule 07/03/2019 12:00:00 AM [facility] Ondansetron 4 MG Oral Tablet 07/02/2019 12:00:00 AM [facility] Prochlorperazine 10 MG Oral Tablet 07/02/2019 12:00:00 AM [facility] Dexamethasone 4 MG Oral Tablet 06/12/2019 12:00:00 AM [facility] Ondansetron 4 MG Oral Tablet 06/11/2019 12:00:00 AM [facility] Prochlorperazine 10 MG Oral Tablet 06/11/2019 12:00:00 AM [facility] Etoposide 50 MG Oral Capsule 06/11/2019 12:00:00 AM [facility] Blood Pressure Kit - 05/27/2019 12:00:00 AM [facility] eCW1 ([facility]) Levothyroxine Sodium 0.1 MG Oral Tablet 05/21/2019 12:00:00 AM [facility] Allopurinol 300 MG Oral Tablet 05/20/2019 12:00:00 AM [facility] Metoprolol Tartrate 50 MG Oral Tablet 05/20/2019 12:00:00 AM [facility] atorvastatin 40 MG Oral Tablet 05/20/2019 12:00:00 AM [facility] Cholecalciferol 1000 UNT Oral Tablet 05/20/2019 12:00:00 AM [facility] Lisinopril 10 MG Oral Tablet 05/20/2019 12:00:00 AM [facility] Benzocaine 15 MG / Menthol 3.6 MG Oral Lozenge 05/20/2019 12:00:00 AM [facility] Prochlorperazine 10 MG Oral Tablet 05/20/2019 12:00:00 AM [facility] Ondansetron 8 MG Disintegrating Oral Tablet 05/20/2019 12:00:00 AM [facility] Ondansetron 4 MG Oral Tablet 05/20/2019 12:00:00 AM [facility] Acetaminophen 325 MG / Hydrocodone Bitartrate 5 MG Ora l Tablet 05/20/2019 12:00:00 AM [facility] Acetaminophen 325 MG Oral Tablet 05/20/2019 12:00:00 AM [facility] sodium chloride (preservative free) 0.9 % flush 10 mL 05/17/2019 11:33:14 AM [facility] dextrose 50 % IV solution 25 mL 05/16/2019 06:42:47 PM [facility] Glucagon 1 MG Injection 05/16/2019 06:42:47 PM [facility] Glucose 0.4 MG/MG Oral Gel 05/16/2019 06:42:47 PM [facility] dextrose 50 % IV solution 25 mL 05/16/2019 04:41:30 PM EDT [facility] Gl[facility] 1 MG [facility] 220 MG Oral Capsule [Aleve] 04/08/2019 12:00:00 AM EST eCW1 ([facility]) Metformin hydrochloride 500 MG Oral Tablet 04/08/2019 12:00:[address] eCW1 ([facility]) Metformin hydrochloride 1000 MG Oral Tablet [facility] Levothyroxine Sodium 0.025 MG Oral Tablet [facility] Levothyroxine Sodium 0.05 MG Oral Tablet [facility] Cholecalciferol 2000 UNT Oral Tablet [facility] Metoprolol Tartrate 50 MG Oral Tablet [facility] Lisinopril 10 MG Oral Tablet [facility] atorvastatin 40 MG Oral Tablet [facility] Levothyroxine Sodium 0.1 MG Oral Tablet [facility]
--- OUTSIDE RECORDS SUMMARY | 2020-04-12 16:01 | CCD ---
Author Author [facility] Organization [facility] Address Unknown Phone Unavailable Care Team Providers Care Cna Per Diem Name Role Phone Yuridia UGALDE Unavailable Unavailable [...] LINDA NUNN MD, PHD Unavailable Unavailabl e NUGYEN, LINDA NUNN MD, PHD Unavailable Unavailabl e [...] Unavailable MIX, TERENCE MENSAH Unavailable Unavailable MIX, ETRENCE MENSAH Unavailable Unavailable MIX, TERENCE MENSAH Unavailable [...] Unavailable Unavailable SCHNANI DANIELS MD Unavailable Unavailable SCHANNI DANIELS MD Unavailable Unavailable SCHNANI DANIELS MD [...] Unavailable NANI OJEDA MD Unavailable Unavailable NANI OEJDA MD Unavailable Unavailable NANI OJEDA MD Unavailable [...] Unavailable KINZA KAISER MD Unavailable Unavailable KINZA AKISER MD Unavailable Unavailable KINZA KAISER MD Unavailable [...] MEADE ALFREDCASSY MENSAH Unavailable Unavailable KAISERKINZA MEADE ALFRED MD Unavailable Unavailable KAISERKINZA MEADE ALFREDCASSY MENSAH Unavailable Unavailable KAISERKINZA MEADE ALFREDCASSY MENSAH Unavailable Unavailable KAISERKINZA MEADE ALFREDCASSY MENSAH Unavailable Unavailable KAISERKINZA MEADE ALFREDCASSY MENSAH Unavailable Unavailable KAISERKINZA MEADE ALFREDCASSY MENSAH Unavailable Unavailable KAISERKINZA MEADE ALFREDCASSY MENSAH Unavailable Unavailable Aloi, M Pavan ROOM SERVICE WAITER/WAITRESS Unavailable Unavailable Aloi, M Pavan ROOM SERVICE WAITER/WAITRESS Unavailable Unavailable Aloi, M Pavan ROOM SERVICE WAITER/WAITRESS Unavailable Unavailable Aloi, M Pavan ROOM SERVICE WAITER/WAITRESS Unavailable Unavailable Aloi, M Pavan ROOM SERVICE WAITER/WAITRESS Unavailable Unavailable Aloi, M Pavan ROOM SERVICE WAITER/WAITRESS Unavailable Unavailable Aloi, M Pavan ROOM SERVICE WAITER/WAITRESS Unavailable Unavailable Aloi, M Pavan ROOM SERVICE WAITER/WAITRESS Unavailable Unavailable Aloi, M Pavan ROOM SERVICE WAITER/WAITRESS Unavailable Unavailable Aloi, M Pavan ROOM SERVICE WAITER/WAITRESS Unavailable Unavailable Aloi, M Pavan ROOM SERVICE WAITER/WAITRESS Unavailable Unavailable Aloi, M Pavan ROOM SERVICE WAITER/WAITRESS Unavailable Unavailable Aloi, M Pavan ROOM SERVICE WAITER/WAITRESS Unavailable Unavailable Aloi, M Pavan ROOM SERVICE WAITER/WAITRESS Unavailable Unavailable Aloi, M Pavan ROOM SERVICE WAITER/WAITRESS Unavailable Unavailable Aloi, M Pavan ROOM SERVICE WAITER/WAITRESS Unavailable Unavailable Aloi, M Pavan ROOM SERVICE WAITER/WAITRESS Unavailable Unavailable Aloi, M Pavan ROOM SERVICE WAITER/WAITRESS Unavailable Unavailable Aloi, M Pavan ROOM SERVICE WAITER/WAITRESS Unavailable Unavailable Aloi, M Pavan ROOM SERVICE WAITER/WAITRESS Unavailable Unavailable Aloi, M Pavan ROOM SERVICE WAITER/WAITRESS Unavailable Unavailable Aloi, M Pavan ROOM SERVICE WAITER/WAITRESS Unavailable Unavailable Aloi, M Pavan ROOM SERVICE WAITER/WAITRESS Unavailable Unavailable Aloi, M Pavan ROOM SERVICE WAITER/WAITRESS Unavailable Unavailable Aloi, M Pavan ROOM SERVICE WAITER/WAITRESS Unavailable Unavailable Aloi, M Pavan ROOM SERVICE WAITER/WAITRESS Unavailable Unavailable Aloi, M Pavan ROOM SERVICE WAITER/WAITRESS Unavailable Unavailable Aloi, M Pavan ROOM SERVICE WAITER/WAITRESS Unavailable Unavailable Aloi, M Pavan ROOM SERVICE WAITER/WAITRESS Unavailable Unavailable Aloi, M Pavan ROOM SERVICE WAITER/WAITRESS Unavailable Unavailable Aloi, M Pavan ROOM SERVICE WAITER/WAITRESS Unavailable Unavailable Aloi, M Pavan ROOM SERVICE WAITER/WAITRESS Unavailable Unavailable Aloi, M Pavan ROOM SERVICE WAITER/WAITRESS Unavailable Unavailable Aloi, M Pavan ROOM SERVICE WAITER/WAITRESS Unavailable Unavailable Aloi, M Pavan ROOM SERVICE WAITER/WAITRESS Unavailable Unavailable Aloi, M Pavan ROOM SERVICE WAITER/WAITRESS Unavailable Unavailable Aloi, M Pavan ROOM SERVICE WAITER/WAITRESS Unavailable Unavailable Jd Pelaez MD Unavailable Unavailable [...] is protected by Article 27-F of the [facility] Public Health law. If you continue you may have access to information: Regarding HIV / AIDS; Provided by facilities licensed or operated by the [facility] Office of Mental Health; or Provided by the [facility] Office for People With Developmental Disabilities. If such information is present, then the following [facility] mandated warning applies: This information has [...] law may result in a fine or shelter sentence or both. A general authorization for the release of medical or other information is NOT sufficient authorization for further disc losure. Allergies and Adverse Reactions Type Description Substance Reaction Status Data Source(s ) Drug Class GADOLINIUM DERIVATIVES GADOLINIUM DERIVATIVES [facility] DRUG INGREDI POLLEN EXTRACT [facility]EN EXTRACT [facility] Family History Family Member Name Family Member Gender Family Member Status Date o f Status Description Data Source(s) Unknown Unknown Problem MEDENT ([facility] Unknown Male Problem MEDENT ([facility]) Encounters Encounter Providers Location Date Indications Data Source(s ) Outpatient Attender: Filemon WATSON 04/21/2020 12:00:00 AM [facility] Outpatient Attender: TERENCE MOORE MD 04/20/2020 12:00:00 AM [facility] Outpatient Attender: EDOUARD NGUYEN MD, PHD 04/16/2020 12:00 :00 AM [facility] Unknown [address] [facility] [address] 04/09/2020 12:00:00 AM EST eCW1 ([facility]) Outpatient Attender: ALEXANDRA BAUGH MD [id number] 12:00:00 AM EST Encounter for palliative care [facility] Encounter for palliative care Outpatient Attender: Kameron Rios [id number] 021 12:00:00 AM EST - 03/31/2020 02:22:16 PM EST Secondary malignant neoplasm of brain [facility] Secondary malignant neoplasm of brain Outpatient Attender: Kameron RiosReferrer: Kameron Rios 03/24/2020 12:00:00 AM EST Malignant neoplasm of unspecified part o f unspecified bronchus or lung [facility] Malignant neoplasm of unspecified part o f unspecified bronchus or lung [facility]: EDOUARD NGUYEN MD, PHDAdmitter: EDOUARD NGUYEN MD, PHDReferrer: TERENCE MOORE MD [id number] 05:38:29 AM EST - 03/17/2020 12:30:00 PM EST Secondary malignant neoplasm of brain [facility] Secondary malignant neoplasm of brain Patient discharged. Outpatient Referrer: EDOUARD NGUYEN MD, PHD 0 03/17/2020 12:00:00 AM EST - 03/17/2020 11:59:00 PM EST [facility] Outpatient [address] [facility] [address] 03/11/2020 12:00:00 AM EST W1 ([facility]) Outpatient Attender: ALEXANDRA BAUGH MD [id number] 12:00:00 AM EST - 03/09/2020 08:24:46 AM EST Encounter for palliative care [facility] Encounter for palliative care Outpatient Attender: Kameron Rios 03/03/2020 12:00:00 AM [facility] Outpatient Attender: Kameron Rios [id number] 020 12:00:00 AM EST - 02/26/2020 12:12:58 PM EST Malignant neoplasm of unspecified part o f unspecified bronchus or lung [facility] Malignant neoplasm of unspecified part o f unspecified bronchus or lung Outpatient Attender: Kameron Rios 02/26/2020 12:00:00 AM [facility] Outpatient Referrer: Pavan MANUEL 02/24/2020 12: 00:00 AM EST Unspecified fracture of first lumbar vertebra, initial encounter for closed fracture [facility] Unspecified fracture of first lumbar solis tebra, initial encounter for closed fracture Outpatient Attender: TERENCE MOORE MDReferrer: Kameron GrubbsA-OSRONC 02/24/2020 12:00:00 AM EST [facility] follow Outpatient Referrer: TERENCE MOORE MD 02/23/2020 12:00 :00 AM EST Malignant neoplasm of unspecified part of unspecified bronchus or lung [facility] Malignant neoplasm of unspecified part o f unspecified bronchus or lung Outpatient Attender: TERENCE MOORE MD 02/23/2020 12:00:00 AM [facility] Outpatient Attender: TERENCE MOORE MD 02/18/2020 12:00:00 AM [facility] Outpatient Attender: Kameron Rios 02/11/2020 12:00:00 AM [facility] Outpatient Attender: Kameron Rios 02/05/2020 12:00:00 AM [facility] Outpatient Attender: ALEXANDRA BAUGH MD [id number] 12:00:00 AM EST - 02/05/2020 08:30:26 AM EST Encounter for palliative care [facility] Encounter for palliative care Outpatient [address] [facility], [facility] [address] 01/28/2020 12:00:00 AM EST W1 ([facility]) Outpatient Referrer: Pavan MANUEL 01/26/2020 12: 00:00 AM EST Other fracture of first lumbar vertebra, initial encounter for closed fracture [facility] Other fracture of first lumbar vertebra, initial encounter for closed fracture Outpatient Attender: Pavan MANUEL [id number] 01/26/2020 12: 00:00 AM EST Unspecified fracture of first lumbar vertebra, initial encounter for closed fracture [facility] Unspecified fracture of first lumbar solis tebra, initial encounter for closed fracture Outpatient Attender: TERENCE GrubbsA-RONCACTR 01/21/2020 05:04:04 PM [facility] Outpatient Attender: Kameron Brown-ONCCACTR 020 12:00:00 AM EST - 01/21/2020 12:16:47 PM EST Malignant neoplasm of unspecified part o f unspecified bronchus or lung [facility] Malignant neoplasm of unspecified part o f unspecified bronchus or lung Outpatient Attender: Kameron Rios 01/21/2020 12:00:00 AM [facility] Outpatient Attender: TERENCE MOORE MDReferrer: Kameron Brown-RONCACTMariah 01/19/2020 12:00:00 AM EST - 01/19/2020 04:11:02 PM EST [facility] follow Outpatient Referrer: TERENCE MOORE MD 01/19/2020 12:00 :00 AM EST Secondary malignant neoplasm of brain [facility] Secondary malignant neoplasm of brain Outpatient Attender: TERENCE MOORE MDReferrer: Kameron Rios [id number] 01/16/2020 12:00:00 AM EST on treat [facility] on treat Outpatient Attender: Kameron Rios 01/15/2020 12:00:00 AM [facility] Outpatient Referrer: Filemon WATSON 020 12:00:00 AM EST - 01/12/2020 11:59:00 PM [facility] Outpatient Attender: Filemon Cooper PAReferrer: Filemon WATSON 01/12/2020 12:00:00 AM EST - 01/13/2020 12:00:00 AM EST Malignant neoplasm of unspecified part of unspecified bronchus or lung [facility] Malignant neoplasm of unspecified part o f unspecified bronchus or lung Outpatient Attender: TERENCE MOORE MDReferrer: Kameron GrubbsA-RONCACTMariah 01/12/2020 12:00:00 AM EST - 01/12/2020 03:32:22 PM EST [facility] follow Outpatient Attender: TERENCE MOORE MDReferrer: Kameron GrubbsA-RONCACTMariah 01/12/2020 12:00:00 AM EST - 01/12/2020 03:34:46 PM EST [facility] follow Outpatient Referrer: Filemon WATSON 01/12/2020 12:00 :00 AM EST Malignant neoplasm of unspecified part of unspecified bronchus or lung [facility] Malignant neoplasm of unspecified part o f unspecified bronchus or lung [place] [address] [facility] [address] 01/07/2020 12:00:00 AM EST eCW1 ([facility]) Outpatient Attender: Kameron GrubbsA-ONCCACTR 020 12:00:00 AM EST - 01/02/2020 03:54:15 PM EST Malignant neoplasm of unspecified part o f unspecified bronchus or lung [facility] Malignant neoplasm of unspecified part o f unspecified bronchus or lung Outpatient [address] [facility] [address] 01/01/2020 12:00:00 AM EST eCW1 ([facility]) Outpatient Attender: Kameron Brown-ONCCACTR 020 12:00:00 AM EDT - 12/25/2019 01:28:31 PM EDT Malignant neoplasm of unspecified part o f unspecified bronchus or lung [facility] Malignant neoplasm of unspecified part o f unspecified bronchus or lung [place] [address] [facility] [address] 12/05/2019 12:00:00 AM EDT eCW1 ([facility]) Outpatient Attender: Filemon WATSON [id number] 12/04/2019 12:00 :00 AM EDT Malignant neoplasm of unspecified part of unspecified bronchus or lung [facility] Malignant neoplasm of unspecified part o f unspecified bronchus or lung Outpatient Attender: TERENCE MOORE MDReferrer: Kameron Rois [id number] 11/19/2019 12:00:00 AM EDT - 11/19/2019 12:36:16 PM EDT Malignant neoplasm of unspecified part of unspecified bronchus or lung [facility] Malignant neoplasm of unspecified part o f unspecified bronchus or lung Outpatient Attender: Kameron GrubbsA-ONCCACTR 020 12:00:00 AM EDT - 11/13/2019 02:11:25 PM EDT Malignant neoplasm of unspecified part o f unspecified bronchus or lung [facility] Malignant neoplasm of unspecified part o f unspecified bronchus or lung Outpatient Referrer: Kameron Rios 11/13/2019 12:00 :00 AM EDT Malignant neoplasm of unspecified part of unspecified bronchus or lung [facility] Malignant neoplasm of unspecified part o f unspecified bronchus or lung Outpatient Attender: Kameron Brown-ONCCACTR 020 12:00:00 AM EDT - 10/23/2019 02:30:20 PM EDT Malignant neoplasm of unspecified part o f unspecified bronchus or lung [facility] Malignant neoplasm of unspecified part o f unspecified bronchus or lung Outpatient Attender: TERENCE MOORE MD [id number] 10/21/2019 08:57:01 AM EDT [facility] Outpatient Attender: LINSEY GrubbsA-MLTCACTR 0 10/16/2019 09:36:00 AM EDT [facility] Outpatient Attender: CHRIS OJEDA MDReferrer: Kameron wade [id number] 10/15/2019 12:00:00 AM EDT treat [facility] treat Outpatient Attender: ALFRED KAISER MDReferrer: Kameron Rios [id number] 10/08/2019 12:00:00 AM EDT on treat [facility] on treat Outpatient Attender: TERENCE MOORE MD 10/08/2019 12:00:00 AM EDT [facility] Outpatient Attender: Kameron Rios [id number] 020 12:00:00 AM EDT - 10/02/2019 02:15:08 PM EDT Malignant neoplasm of unspecified part o f unspecified bronchus or lung [facility] Malignant neoplasm of unspecified part o f unspecified bronchus or lung Outpatient Referrer: Kameron Rios 09/27/2019 12:00:00 AM EDT [facility] Outpatient Referrer: Kameron Rios 09/26/2019 12:00 :00 AM EDT Malignant (primary) neoplasm, unspecified [facility] Malignant (primary) neoplasm, unspecifie d Outpatient Attender: LINSEY DESAI [id number] 0 09/24/2019 03:18:40 PM EDT [facility] Outpatient Attender: TERENCE MOORE MDReferrer: Kameron Rios [id number] 09/24/2019 12:00:00 AM EDT - 09/24/2019 03:29:36 PM EDT Malignant (primary) neoplasm, unspecified [facility] Malignant (primary) neoplasm, unspecifie d Outpatient Attender: TERENCE MOORE MDReferrer: Kameron Rios [id number] 09/24/2019 12:00:00 AM EDT - 09/24/2019 05:03:20 PM EDT follow up [facility] follow up Outpatient Referrer: KENNY MCDERMOTT MD 09/24/2019 12:0 0:00 AM EDT [facility] Outpatient Attender: TERENCE MOORE MDReferrer: Kameron Rios 07A-RONCACTMariah 09/15/2019 12:00:00 AM EDT - 09/16/2019 09:27:17 AM EDT Malignant (primary) neoplasm, unspecified [facility] Malignant (primary) neoplasm, unspecifie d Outpatient Referrer: IRIS CHANEL . 09/15/2019 12:0 0:00 AM EDT Malignant (primary) neoplasm, unspecified [facility] Malignant (primary) neoplasm, unspecifie d Outpatient Attender: Kameron GrubbsA-ONCCACTR 020 12:00:00 AM EDT - 09/11/2019 10:14:07 AM EDT Malignant (primary) neoplasm, unspecified [facility] Malignant (primary) neoplasm, unspecifie d Outpatient [address] [facility] [address] 09/09/2019 12:00:00 AM EDT eCW1 ([facility]) Outpatient Attender: Kameron Brown-ONCCACTR 020 12:00:00 AM EDT - 08/20/2019 10:11:19 AM EDT Malignant (primary) neoplasm, unspecified [facility] Malignant (primary) neoplasm, unspecifie d Outpatient Referrer: KENNY MCDERMOTT MD 0 12:00:00 AM EDT Malignant (primary) neoplasm, unspecified [facility] Malignant (primary) neoplasm, unspecifie d Outpatient Attender: Kameron Brown-ONCCACTR 020 12:00:00 AM EDT - 07/23/2019 03:43:20 PM EDT Malignant (primary) neoplasm, unspecified [facility] Malignant (primary) neoplasm, unspecifie d Outpatient Attender: ALEXANDRA BAUGH MDReferrer: Arlet MCDERMOTT MD [id number] 07/23/2019 12:00:00 AM EDT - 07/23/2019 01:20:29 PM ED T Encounter for palliative care [facility] Encounter for palliative care Outpatient Attender: TERENCE MOORE MDReferrer: Kameron Brown-RONCACTR 07/16/2019 12:00:00 AM EDT - 07/16/2019 04:34:48 PM EDT Malignant (primary) neoplasm, unspecified [facility] Malignant (primary) neoplasm, unspecifie d Outpatient Referrer: TERENCE MOORE MD 07/14/2019 12:00 :00 AM EDT Malignant (primary) neoplasm, unspecified [facility] Malignant (primary) neoplasm, unspecifie d [facility] [place] [address] [facility] [address] 07/14/2019 12:00:00 AM EDT eCW1 ([facility]) [facility] [place] [address] [facility] [address] 07/08/2019 12:00:00 AM EDT eCW1 ([facility]) Outpatient 07/04/2019 12:00:00 AM EDT [facility] Outpatient 07/03/2019 12:00:00 AM T [facility] Outpatient Attender: Kameron Brown-ONCCACTMariah 020 12:00:00 AM EDT - 07/03/2019 08:55:10 AM EDT Malignant (primary) neoplasm, unspecified [facility] Malignant (primary) neoplasm, unspecifie d Outpatient Attender: TERENCE MOORE MDReferrer: Kameron Brown-OSJO ANN 06/17/2019 12:00:00 AM EDT Malignant (primary) neoplasm, unspecified [facility] Malignant (primary) neoplasm, unspecifie d Outpatient Referrer: TERENCE MOORE MD 06/16/2019 12:00 :00 AM EDT Malignant (primary) neoplasm, unspecified [facility] Malignant (primary) neoplasm, unspecifie d Outpatient 06/13/2019 12:00:00 AM T [facility] Outpatient 06/12/2019 05:57:00 AM EDT [facility] Outpatient 06/12/2019 12:00:00 AM T [facility] Outpatient Attender: Kameron Brown-ONCCACTR 020 12:00:00 AM EDT - 06/11/2019 04:16:22 PM EDT Malignant (primary) neoplasm, unspecified [facility] Malignant (primary) neoplasm, unspecifie d Outpatient Attender: TERENCE Brown-OSUGOC 05/27/2019 12:00 :00 AM EDT Malignant (primary) neoplasm, unspecified [facility] Malignant (primary) neoplasm, unspecifie d [facility] [place] [facility] [address] 05/27/2019 12:00:00 AM EDT eCW1 ([facility]) Outpatient 05/25/2019 10:17:00 AM EDT [facility] [place] [facility] [address] 05/23/2019 12:00:00 AM EDT eCW1 ([facility]) Outpatient Attender: Spike Pelaez MD [id number] 05/21/2019 06:08:01 PM EDT [facility] Outpatient Referrer: Kameron Rios 05/19/2019 12:00:00 AM [facility] Outpatient Referrer: Kameron Rios 05/19/2019 12:00:00 AM [facility] Inpatient Attender: Kameron Chacon tter: Kameron RiosReferrer: Kameron Rios 05/17/2019 12:00:00 AM EDT superior vena cava syndrome, lung CA, needs chemo [facility] superior vena cava syndrome, lung CA, ne eds chemo Inpatient Attender: Kameron Chacon tter: Kameron RiosReferrer: KAELA TSAI [id number] 05/16/2019 12:00:00 AM EDT - 05/20/2019 03:53:00 PM EDT Malignant (primary) neoplasm, unspecified [facility] Malignant (primary) neoplasm, unspecifie d Patient discharged. [facility] [place] [facility] [address] 04/08/2019 12:00:00 AM EST eCW1 ([facility]) [facility] [place] [facility] [address] 02/28/2019 12:00:00 AM EST eCW1 ([facility]) Medications Medication Brand Name Start Date Product Form Dose Route Admi nistrative Instructions Pharmacy Instructions Status Indications Reaction Description Data Source(s) Magnesium Oxide 400 MG Oral Tablet Magnesium Oxide (MA G-OX) tablet 400 mg Magnesium Oxide (MAG-OX) tablet 400 mg 03/31/2020 02:15:00 PM EST 4 00 mg Oral completed 400 mg, Oral, Once, Sun at 1415, For 1 dose [facility] Medication administered onsite potassium chloride (K-DUR) dissolvable tablet 20 mEq 22052-5 [id number] 03/31/2020 02:15:00 PM EST 20 meq Oral completed 20 mEq, Oral, Once, Sun03/31/20 at 1415, For 1 dose
May be dissolved in water for patients with a G-Tube or unable to swallow. If concern for clogging G-Tube, may contact Pharmacy to switch formulation to a powder packet.
[facility] Medication administered onsite etoposide (VEPESID) 140 mg [...] for hypotension.Infuse through a 0.22 micron filter.
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
Give prior to chemotherapy.
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
Give prior to chemotherapy
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
Give prior to chemotherapy
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
[facility] Small cell lung cancer Secondary malignant neoplasm [...] urine parameters are not met, contact .
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 Medication administered onsite Metoprolol Tartrate 50 MG Oral Tablet metoprolol (LOPR ESSOR) tablet 50 mg metoprolol (LOPRESSOR) tablet 50 mg 03/31/2020 08:45:00 AM EST 50 mg Oral active 50 mg, Oral, Once, Sun03/31/20 at 0845, For 1 dose [facility] Medication administered onsite Ondansetron 8 MG Oral Tablet Ondansetron HCl 8 MG Oral Tablet (ZOFRAN) Ondansetron HCl 8 MG Oral Tablet (ZOFRAN) 03/31/2020 12:00:00 AM EST 8 mg Oral active Small cell lung cancerSecondary malignant neoplasm of brain and spinal cord Take 1 tablet by mouth every 8 (eight) hours as needed for Nausea or Vomiting [facility] Small cell lung cancer Secondary malignant neoplasm [...] chemo) 30 minutes before chemo pill etoposide [facility] Etoposide 50 MG Oral Capsule Etoposide 50 MG Oral Caps ule (VEPESID) Etoposide 50 MG Oral Capsule (VEPESID) 03/31/2020 12:00:00 AM EST 150 mg Oral active Take 3 capsules by mouth Two Times Daily for 2 daysTake on and 04/02 (days 2 and 3 of chemo) [facility] Magnesium Oxide 400 MG Oral Capsule Magnesium Oxide 400 MG O ral Capsule 03/31/2020 12:00:00 AM EST 400 mg Oral active Take 400 mg by mouth daily [facility] 0.5 mg 03/10/2020 12:00:00 AM EST tablet [...] for Anxiety, Max Daily Dose: 1.5 mg [facility] gadobutrol (GADAVIST) contrast injection 7 mL [id number] 10:00:00 AM EST 0.1 mL/kg Intravenous completed 7 mL (ro unded from 7.35 mL = 0.1 mL/kg 73.5 kg), Intravenous, 1 TIME IMAGING, 02/23/20 at 1000, For 1 dose, Imaging Protocol
Do not mix or administer in the same IV line with other medications.
[facility] Medication administered onsite Lorazepam 0.5 MG Oral Tablet LORazepam 0.5 MG Oral Tab let (Ativan) LORazepam 0.5 MG Oral Tablet (Ativan) 02/04/2020 12:00:00 AM EST 0.5 mg Oral active Take 1 tablet by mouth every 6 (six) hours as needed for Anxiety (or nausea) for up to 10 days, Max Daily Dose: 2 mg [facility] 0.5 mg 02/04/2020 12:00:00 AM EST tablet 30 TAKE ONE TABLET BY MOUTH EVERY 6 HOURS NEEDED FOR ANXIETY OR NAUSEA * MAXIMUM DAILY DOSE = 4 TAKE ONE TABLET BY MOUTH EVERY 6 HOURS NEEDED FOR ANXIETY OR NAUSEA * MAXIMUM DAILY DOSE = 4 SOLD: 02/06/2020 [facility] 3.5-10,000-1 mg/mL-unit/mL-% 01/28/2020 12:00:00 AM EST [...] OF BREATH SOLD: 01/29/2020 [facility] Cortisporin 3.5-43930-5 UNK 01/28/2020 12:00:00 AM EST 4.0 {drops_into_affected_ear} active Cortis porin 3.5-94606-0 eCW1 ([facility]) 200 ACTUAT Albuterol 0.09 MG/ACTUAT Mete red Dose Inhaler [Ventolin] Ventolin HFA 108 (90 Base) MCG/ACT Ventolin HFA 108 (90 Base) MCG/ACT 01/28/2020 12:00:00 AM EST 1.0 {puff_as_needed} active [place] HFA 108 (90 Base) MCG/ACT eCW1 (Formerly [facility]) 200 ACTUAT Albuterol 0.09 MG/ACTUAT Mete red Dose Inhaler [Ventolin] Ventolin HFA 108 (90 Base) MCG/ACT Ventolin HFA 108 (90 Base) MCG/ACT 01/28/2020 12:00:00 AM EST 1.0 {puff_as_needed} active [place] HFA 108 (90 Base) MCG/ACT eCW1 (Formerly [facility]) Cortisporin 3.5-83658-5 UNK 01/28/2020 12:00:00 AM EST 4.0 {drops_into_affected_ear} suspended Oniel isporin 3.5-58722-8 eCW1 (Formerly [facility]) 200 ACTUAT Albuterol 0.09 MG/ACTUAT Mete red Dose Inhaler [Ventolin] Ventolin HFA 108 (90 Base) MCG/ACT Ventolin HFA 108 (90 Base) MCG/ACT 01/28/2020 12:00:00 AM EST 1.0 {puff_as_needed} active [place] HFA 108 (90 Base) MCG/ACT eCW1 (Formerly [facility]) Cortisporin 3.5-09548-8 UNK 01/28/2020 12:00:00 AM EST 4.0 {drops_into_affected_ear} suspended Oniel isporin 3.5-20395-8 eCW1 (Formerly [facility]) gadobutrol (GADAVIST) contrast injection 7.5 mL [id number] 01/19/2020 02:15:00 PM EST 0.1 mL/kg Intravenous completed 7.5 mL (rounded from 7.76 mL = 0.1 mL/kg 77.6 kg), Intravenous, 1 TIME IMAGING, Sun01/19/20 at 1415, For 1 dose, Imaging Protocol
Do not mix or administer in the same IV line with other medi cations.
[facility] Medication administered onsite iohexol (OMNIPAQUE) 300 MG/ML contrast injection 100 mL [id number] 01/12/2020 10:45:00 AM EST 100 mL Intravenous completed 100 mL, Intravenous, 1 TIME IMAGING, Sun01/12/20 at 1045, For 1 dose, Imaging Protocol [facility] Medication administered onsite iohexol (OMNIPAQUE) 240 MG/ML contrast 20 mL [id number] 10:15:00 AM EST 20 mL Oral completed 20 mL, Oral, 1 TIME IMAGING, Sun01/12/20 at 1015, For 1 dose, Imaging Protocol
Dilute before administering
[facility] Medication administered onsite iohexol (OMNIPAQUE) 240 MG/ML contrast 20 mL [id number] 10:02:51 AM EST 20 mL Oral active 20 mL, Oral, IMG once PRN, Contrast, Starting Sun01/12/20 at 1002, For 1 day, Imaging Protocol
Dilute before administering
[facility] Medication administered onsite TC-99M medronate (Tc-MDP) [address]-9 01/12/2020 09:45:00 AM EST Intravenous completed Intravenous, Once, Sun01/12/20 at 0945, For 1 dose, Imaging Protocol [facility] Medication administered onsite 5-325 mg 01/12/2020 12:00:00 [...] for Pain, Max Daily Dose: 6 tablets [facility] 300 mg 01/08/2020 12:00:00 AM EST tablet [...] EST active [facility] ([facility]) atorvastatin 20 MG Oral Tablet Atorvastatin Calcium 01/08/2020 1 2:00:00 AM EST active [facility] ( [facility]) Lisinopril 10 MG Oral Tablet Lisinopril 01/08/2020 12:00:00 AM EST ORAL active [facility] ([facility] Aspirin 81 MG Delayed Release Oral Tablet Aspirin 81 2019 12:00:00 AM EST active [facility] ( [facility]) Acetaminophen 325 MG / Hydrocodone Bitartrate 5 MG Ora l Tablet Hydrocodone-Acetaminophen 01/08/2020 12:00:00 AM EST ORAL active [facility] ([facility]) Metformin hydrochloride 1000 MG Oral Tablet Metformin HCL 01/08/2020 12:00:00 AM EST active [facility]) Allopurinol 300 MG Oral Tablet Allopurinol 01/08/2020 12:00:00 AM EST active [facility] ([facility]) cefdinir 300 MG Oral Capsule Cefdinir 01/08/2020 12:00:00 AM EST active [facility] ([facility]) Glucosamine Chondroitin 1500 Complex 01/08/2020 12:00:00 AM EST active [facility] ([facility]) Ascorbic Acid 60 MG / Beta Carotene 5000 UNT / Copper Sulfate 40 MG / dl-alpha tocopheryl acetate 30 UNT / Sodium Selenite 0.04 MG / Zinc Oxide 40 MG Oral Tablet Multi Vitamin And Minerals 01/08/2020 12:00:00 AM EST active [facility] ([facility]) Levothyroxine Sodium 0.125 MG Oral Tablet Levothyroxine Sodi um 01/08/2020 12:00:00 AM EST active M EDENT ([facility]) Tecentriq Tecentriq 01/08/2020 12:00:00 AM EST act james [facility] ([facility]) 300 mg 01/08/2020 12:00:00 AM [...] TWICE A DAY WITH MEALS SOLD: 03/13/2020 [facility] 5-325 mg 01/07/2020 12:00:00 AM EST [...] BY MOUTH TWICE A DAY SOLD: 01/07/2020 [facility] atezolizumab (TECENTRIQ) 1,200 mg in sod ium chloride 0.9 % 250 mL chemo infusion 01/02/2020 02:15:00 PM EST 1200 mg Intravenous completed Small cell lung cancer 1,200 mg, Intravenous, Admin ister over 30 Minutes, Once, Sun01/02/20 at 1415, For 1 dose
First dose to be administered over 60 minutes.All subsequent doses administered over 30 minutes.Only compatible with NaCl 0.9 %.
[facility] Small cell lung cancer Medication administered onsite [...] active Clobetasol Propionate E 0.05 % eCW1 (Formerly [facility]) atorvastatin 20 MG Oral Tablet Atorvastatin Calcium 20 MG Atorvastatin Calcium 20 MG 01/01/2020 12:00:00 AM EST 1.0 {tablet} activ e Atorvastatin Calcium 20 MG eCW1 (Formerly [facility]) atorvastatin 20 MG Oral Tablet Atorvastatin Calcium 20 MG Atorvastatin Calcium 20 MG 01/01/2020 12:00:00 AM EST 1.0 {tablet} activ e Atorvastatin Calcium 20 MG eCW1 (Formerly [facility]) Clobetasol Propionate E 0.05 % Clobetasol Propionate E 0.05 % 01/01/2020 12:00:00 AM EST 1.0 {application} active Clobetasol Propionate E 0.05 % eCW1 (Formerly [facility]) Clobetasol Propionate E 0.05 % Clobetasol Propionate E 0.05 % 01/01/2020 12:00:00 AM EST 1.0 {application} active Clobetasol Propionate E 0.05 % eCW1 (Formerly [facility]) Clobetasol Propionate E 0.05 % Clobetasol Propionate E 0.05 % 01/01/2020 12:00:00 AM EST 1.0 {application} active Clobetasol Propionate E 0.05 % eCW1 (Formerly [facility]) atorvastatin 20 MG Oral Tablet Atorvastatin Calcium 20 MG Atorvastatin Calcium 20 MG 01/01/2020 12:00:00 AM EST 1.0 {tablet} activ e Atorvastatin Calcium 20 MG eCW1 (Formerly [facility]) atorvastatin 20 MG Oral Tablet Atorvastatin Calcium 20 MG Atorvastatin Calcium 20 MG 01/01/2020 12:00:00 AM EST 1.0 {tablet} activ e Atorvastatin Calcium 20 MG eCW1 (Formerly [facility]) atorvastatin 20 MG Oral Tablet Atorvastatin Calcium 20 MG Atorvastatin Calcium 20 MG 01/01/2020 12:00:00 AM EST 1.0 {tablet} activ e Atorvastatin Calcium 20 MG eCW1 (Formerly [facility]) Clobetasol Propionate E 0.05 % Clobetasol Propionate E 0.05 % 01/01/2020 12:00:00 AM EST 1.0 {application} active Clobetasol Propionate E 0.05 % eCW1 (Formerly [facility]) 125 mcg 12/10/2019 12:00:00 AM EDT tablet [...] 30 minutes.Only compatible with NaCl 0.9 %.
[facility] Small cell lung cancer Medication administered onsite Levothyroxine Sodium 0.125 MG Oral Table t Levothyroxine Sodium 125 MCG Oral Tablet (SYNTHROID) Levothyroxine Sodium 125 MCG Oral Tablet (SYNTHROID) 12/04/2019 12:00:00 AM EDT 125 ug Oral completed Take 1 tablet by mouth Daily Take with plain water 1/2 hr prior to other meds or food or beverages [facility] Levothyroxine Sodium 0.125 MG Oral Table t Levothyroxine Sodium 125 MCG Oral Tablet (SYNTHROID) Levothyroxine Sodium 125 MCG Oral Tablet (SYNTHROID) 11/25/2019 12:00:00 AM EDT 125 ug Oral aborted Take 1 tablet by mouth Daily Take with plain water 1/2 hr prior to other meds or food or beverages [facility] Levothyroxine Sodium 0.05 MG Oral Tablet Levothyroxine Sodium 50 MCG Oral Tablet (SYNTHROID) Levothyroxine Sodium 50 MCG Oral Tablet (SYNTHROID) 12:00:00 AM EDT 100 ug Oral active Take 2 t ablets by mouth Daily [facility] Levothyroxine Sodium 0.025 MG Oral Table t Levothyroxine Sodium 25 MCG Oral Tablet (SYNTHROID) Levothyroxine Sodium 25 MCG Oral Tablet (SYNTHROID) 11/13/2019 12:00:00 AM EDT 25 ug Oral active Take 1 tablet by mouth Daily [facility] Memantine hydrochloride 10 MG Oral Tablet MEMANTINE [...] Intravenous, Admin ister over 30 Minutes, Once, [facility] 10/23/19 at 1315, For 1 dose
First dose to be administered over 60 minutes.All subsequent doses administered over 30 minutes.Only compatible with NaCl 0.9 %.
[facility] Small cell lung cancer Medication administered onsite Dexamethasone 2 MG Oral Tablet Dexamethasone 2 MG Oral Tablet (DECADRON) Dexamethasone 2 MG Oral Tablet (DECADRON) 10/15/2019 12:00:00 AM EDT 2 mg Oral aborted Take 1 tablet by mouth Two times daily with meals Take two times a day for 3 days, then once a day for 3 days. [facility] Dexamethasone 2 MG Oral Tablet Dexamethasone 2 MG Oral Tablet (DECADRON) Dexamethasone 2 MG Oral Tablet (DECADRON) 10/15/2019 12:00:00 AM EDT 2 mg Oral aborted Take 1 tablet by mouth See Admin Instructions Take one pill two times a day for 3 days, then one pill once a day for 3 days. [facility] 50 mg 10/10/2019 12:00:00 AM EDT tablet 60 TAKE ONE TABLET BY MOUTH TWICE A DAY TAKE ONE TABLET BY MOUTH TWICE A DAY SOLD: 03/13/2020 [facility] 50 mg 10/10/2019 12:00:00 AM EDT tablet [...] TABLET BY MOUTH EVERY DAY SOLD: 10/10/2019 [facility] 5-10 mg 09/29/2019 12:00:00 AM EDT [...] WEEK, THEN 10MG TWICE DAILY SOLD: 09/30/2019 [facility] Memantine HCl 28 x 5 MG & 21 x 10 MG Oral Tablet (NAME NDA TITRATION PACK) 8725-1323-19 09/16/2019 12:00:00 AM EDT abort ed 5 mg/day for =1 week; 5 mg twice daily for =1 week; 15 mg/day given in 5 mg and 10 mg doses for =1 week; then 10 mg twice daily [facility] Memantine hydrochloride 10 MG Oral Table t Memantine HCl 10 MG Oral Tablet (NAMENDA) Memantine HCl 10 MG Oral Tablet (NAMENDA) 09/16/2019 12:00:0 0 AM EDT 10 mg Oral active Take 1 tablet by mouth Two Times Daily [facility] gadobutrol (GADAVIST) contrast injection 7.5 mL [id number] 09/15/2019 04:00:00 PM EDT 0.1 mL/kg Intravenous completed 7.5 mL (rounded from 7.99 mL = 0.1 mL/kg 79.9 kg), Intravenous, 1 TIME IMAGING, 09/15/19 at 1600, For 1 dose, Imaging Protocol
Do not mix or administer in the same IV line with other medic ations.
[facility] Medication administered onsite atezolizumab (TECENTRIQ) 1,200 mg in sod ium chloride 0.9 % 250 mL chemo infusion 09/11/2019 08:45:00 AM EDT 1200 mg Intravenous completed Small cell carcinoma 1,200 mg, Intravenous, Admin ister over 30 Minutes, Once, Judith 09/11/19 at 0845, For 1 dose
First dose to be administered over 60 minutes.All subsequent doses administered over 30 minutes.Only compatible with NaCl 0.9 %.
[facility] Small cell carcinoma Medication administered onsite 10 [...] aborted Take 1 tablet by mouth Daily [facility] atezolizumab (TECENTRIQ) 1,200 mg in sod ium chloride 0.9 % 250 mL chemo infusion 08/20/2019 09:15:00 AM EDT 1200 mg Intravenous completed Small cell carcinoma 1,200 mg, Intravenous, Admin ister over 30 Minutes, Once, [facility] 08/20/19 at 0915, For 1 dose
First dose to be administered over 60 minutes.All subsequent doses administered over 30 minutes.Only compatible with NaCl 0.9 %.
[facility] Small cell carcinoma Medication administered onsite iohexol (OMNIPAQUE) 300 MG/ML contrast injection 100 mL [id number] 08/14/2019 03:15:00 PM EDT 100 mL Intravenous completed 100 mL, Intravenous, 1 TIME IMAGING, [facility] 08/14/19 at 1515, For 1 dose, Imaging Protocol [facility] Medication administered onsite iohexol (OMNIPAQUE) 240 MG/ML contrast 20 mL [id number] 12:45:00 PM EDT 20 mL Oral completed 20 mL, Oral, 1 TIME IMAGING, [facility] 08/14/19 at 1245, For 1 dose, Imaging Protocol
Dilute before administering
[facility] Medication administered onsite 50 mg 08/12/2019 12:00:00 [...] and 3 of chemo (07/23 and 07/24) [facility] Dexamethasone 4 MG Oral Tablet Dexamethasone 4 MG Oral Tablet (DECADRON) Dexamethasone 4 MG Oral Tablet (DECADRON) 07/24/2019 12:00:00 AM EDT 8 mg Oral active Take 2 tablets by mouth daily with breakfast for 2 daysDays 2 and 3, take 30 minutes prior to chemo in the morning [facility] Ondansetron 8 MG Oral Tablet Ondansetron HCl 8 MG Oral Tablet (ZOFRAN) Ondansetron HCl 8 MG Oral Tablet (ZOFRAN) 07/24/2019 12:00:00 AM EDT 8 mg Oral active Take 1 tablet by mouth Two Times Daily for 2 daysDays 2 and 3, take 30 minute before chemo morning and night [facility] sodium chloride 0.9 % 500 mL with potass ium chloride 10 mEq, magnesium sulfate 8 mEq infusion 07/23/2019 01:45:00 PM EDT Intravenous completed Small cell carcinoma at 500 mL/hr, Intravenous, O nce, Sun07/23/19 at 1345, For 1 dose
Post-cisplatin. Remove KCl from IV bag if K+>4.8 and/or remove Mag from bag if Mag > 2.2
[facility] Small cell carcinoma Medication administered onsite etoposide [...] for hypotension.Infuse through a 0.22 micron filter.
[facility] Small cell carcinoma Medication administered onsite CISplatin (PLATINOL) 157 mg in sodium chloride 3 % 407 mL ch emo infusion 07/23/2019 12:00:00 PM EDT 80 mg/m2 Intravenous c ompleted Small cell carcinoma 157 mg (rounded from 156.8 m g = 80 mg/m2 1.96 m2 Treatment plan recorded BSA), Intravenous, Administer over 60 Minutes, Once, Sun07/23/19 at 1200, For 1 dose [facility] Small cell carcinoma Medication administered onsite Magnesium Oxide 400 MG Oral Tablet Magnesium Oxide (MA G-OX) tablet 400 mg Magnesium Oxide (MAG-OX) tablet 400 mg 07/23/2019 11:00:00 AM EDT 4 00 mg Oral completed 400 mg, Oral, Once, Sun at 1115, For 1 dose [facility] Medication administered onsite atezolizumab (TECENTRIQ) 1,200 mg in sod ium chloride 0.9 % 250 mL chemo infusion 07/23/2019 10:15:00 AM EDT 1200 mg Intravenous completed Small cell carcinoma 1,200 mg, Intravenous, Admin ister over 30 Minutes, Once, Sun07/23/19 at 1015, For 1 dose
Only compatible with NaCl 0.9 %.
[facility] Small cell carcinoma Medication administered onsite Lorazepam 0.5 MG Oral Tablet LORazepam (ATIVAN) tablet 0.5 mg LORazepam (ATIVAN) tablet 0.5 mg 07/23/2019 09:45:00 AM EDT 0.5 mg Oral completed Small cell carcinoma 0.5 mg, Oral, Once, Wed 07/22 at 0945, For 1 dose
Give prior to chemotherapy
[facility] Small cell carcinoma Medication administered onsite fosaprepitant dimeglumine (EMEND) 150 mg in sodium chloride 0.9 % 150 mL infusion 07/23/2019 09:45:00 AM EDT 150 mg Intravenous completed Small cell carcinoma 150 mg, Intravenous, Once, W ed 07/23/19 at 0945, For 1 dose
Give 30 minutes before chemotherapy over 20-30 minutes.
[facility] Small cell carcinoma Medication administered onsite sodium chloride 0.9 % 1,000 mL bolus 07/23/2019 09:45:00 A M EDT Intravenous completed Small cell carcinoma Int ravenous, at 500 mL/hr, Once, Sun07/23/19 at 0945, For 1 dose
Infuse at 500 mL/hr until urine parameters are met.If after 1000 mL infused and urine parameters are not met, contact MD.
[facility] Small cell carcinoma Medication administered onsite Dexamethasone 4 MG Oral Tablet dexamethasone (DECADRON ) tablet 8 mg dexamethasone (DECADRON) tablet 8 mg 07/23/2019 09:45:00 AM EDT 8 mg Oral completed Small cell carcinoma 8 mg, Oral, Once, W ed 07/23/19 at 0945, For 1 dose
Give prior to chemotherapy.
[facility] Small cell carcinoma Medication administered onsite Ondansetron 8 MG Oral Tablet ondansetron (ZOFRAN) tabl et 16 mg ondansetron (ZOFRAN) tablet 16 mg 07/23/2019 09:45:00 AM EDT 16 mg Oral completed Small cell carcinoma 16 mg, Oral, Once, Sun at 0945, For 1 dose
Give prior to chemotherapy
[facility] Small cell carcinoma Medication administered onsite Loratadine 10 MG Oral Tablet Loratadine 10 MG Oral Tab let (CLARITIN) Loratadine 10 MG Oral Tablet (CLARITIN) 07/23/2019 12:00:00 AM EDT 10 mg Oral aborted Take 1 tablet by mouth daily [facility] gadobutrol (GADAVIST) contrast injection 8 mL [id number] 12:45:00 PM EDT 0.1 mL/kg Intravenous completed 8 mL (ro unded from 8.37 mL = 0.1 mL/kg 83.7 kg), Intravenous, 1 TIME IMAGING, 07/14/19 at 1245, For 1 dose, Imaging Protocol
Do not mix or administer in the same IV line with other medicat ions.
[facility] Medication administered onsite 1,000 mg 07/14/2019 12:00:00 AM EDT tablet 60 TAKE ONE TABLET BY MOUTH TWICE A DAY WITH A MEAL TAKE ONE TABLET BY MOUTH TWICE A DAY WITH A MEAL SOLD: 10/10/2019 [facility] Metformin hydrochloride 1000 MG Oral Tablet 1,000 [...] 1.0 {tablet} active Allopurinol 300 MG eCW1 (Formerly [facility]) Allopurinol 300 MG Oral Tablet Allopurinol 300 MG 07/09/2019 12:00: 00 AM EDT 1.0 {tablet} active Allopurinol 300 MG eCW1 (Former[facility]) Allopurinol 300 MG Oral Tablet Allopurinol 300 MG 07/09/2019 12:00: 00 AM EDT 1.0 {tablet} active Allopurinol 300 MG eCW1 (Former[facility]) Allopurinol 300 MG Oral Tablet Allopurinol 300 MG 07/09/2019 12:00: 00 AM EDT active 1 tablet eCW1 ([facility]) Allopurinol 300 MG Oral Tablet Allopurinol 300 MG 07/09/2019 12:00: 00 AM EDT 1.0 {tablet} active Allopurinol 300 MG eCW1 (Former[facility]) Allopurinol 300 MG Oral Tablet Allopurinol 300 MG 07/09/2019 12:00: 00 AM EDT 1.0 {tablet} active Allopurinol 300 MG eCW1 ([facility]) Allopurinol 300 MG Oral Tablet Allopurinol 300 MG 07/09/2019 12:00: 00 AM EDT 1.0 {tablet} active Allopurinol 300 MG eCW1 ([facility]) Allopurinol 300 MG Oral Tablet Allopurinol 300 MG 07/09/2019 12:00: 00 AM EDT 1.0 {tablet} active Allopurinol 300 MG eCW1 (Former[facility]) Levothyroxine Sodium 0.075 MG Oral Table t Levothyroxine Sodium 75 MCG Oral Tablet (SYNTHROID) Levothyroxine Sodium 75 MCG Oral Tablet (SYNTHROID) 07/08/2019 12:00:00 AM EDT [facility] Etoposide 50 MG Oral Capsule Etoposide 50 MG Oral Caps ule (VEPESID) Etoposide 50 MG Oral Capsule (VEPESID) 07/03/2019 12:00:00 AM EDT 150 mg Oral active Take 3 capsules by mouth Two Times Daily for 2 daysTake on 07/02 and 07/03 (days 2 and 3 of chemo) [facility] Dexamethasone 4 MG Oral Tablet Dexamethasone 4 MG Oral Tablet (DECADRON) Dexamethasone 4 MG Oral Tablet (DECADRON) 07/03/2019 12:00:00 AM EDT 8 mg Oral active Take 2 tablets by mouth daily with breakfast for 2 daysTake on 07/02 and 07/03 30 minutes before chemo pills [facility] sodium chloride 0.9 % 500 mL with potass ium chloride 10 mEq, magnesium sulfate 8 mEq infusion 07/02/2019 03:15:00 PM EDT Intravenous completed Small cell carcinoma at 500 mL/hr, Intravenous, O nce, Sun07/02/19 at 1515, For 1 dose
Post-cisplatin. Remove KCl from IV bag if K+>4.8 and/or remove Mag from bag if Mag > 2.2
[facility] Small cell carcinoma Medication administered onsite etoposide [...] for hypotension.Infuse through a 0.22 micron filter.
[facility] Small cell carcinoma Medication administered onsite CISplatin [...]
Do not refrigerate. Protect from l ight.
[facility] Small cell carcinoma Medication administered onsite atezolizumab (TECENTRIQ) 1,200 mg in sod ium chloride 0.9 % 250 mL chemo infusion 07/02/2019 11:30:00 AM EDT 1200 mg Intravenous completed Small cell carcinoma 1,200 mg, Intravenous, Admin ister over 60 Minutes, Once, 07/02/19 at 1130, For 1 dose
Only compatible with NaCl 0.9 %.
[facility] Small cell carcinoma Medication administered onsite sodium chloride 0.9 % 1,000 mL bolus 07/02/2019 11:15:00 A M EDT Intravenous completed Small cell carcinoma Int ravenous, at 500 mL/hr, Once, 07/02/19 at 1115, For 1 dose
Infuse at 500 mL/hr until urine parameters are met.If after 1000 mL infused and urine parameters are not met, contact MD.
[facility] Small cell carcinoma Medication administered onsite Dexamethasone 4 MG Oral Tablet dexamethasone (DECADRON ) tablet 8 mg dexamethasone (DECADRON) tablet 8 mg 07/02/2019 11:15:00 AM EDT 8 mg Oral completed Small cell carcinoma 8 mg, Oral, Once, W ed 07/02/19 at 1115, For 1 dose
Give prior to chemotherapy.
[facility] Small cell carcinoma Medication administered onsite Ondansetron 8 MG Oral Tablet ondansetron (ZOFRAN) tabl et 16 mg ondansetron (ZOFRAN) tablet 16 mg 07/02/2019 11:15:00 AM EDT 16 mg Oral completed Small cell carcinoma 16 mg, Oral, Once, Wed 0 at 1115, For 1 dose
Give prior to chemotherapy
[facility] Small cell carcinoma Medication administered onsite Lorazepam 0.5 MG Oral Tablet LORazepam (ATIVAN) tablet 0.5 mg LORazepam (ATIVAN) tablet 0.5 mg 07/02/2019 11:15:00 AM EDT 0.5 mg Oral completed Small cell carcinoma 0.5 mg, Oral, Once, Wed at 1115, For 1 dose
Give prior to chemotherapy
[facility] Small cell carcinoma Medication administered onsite fosaprepitant dimeglumine (EMEND) 150 mg in sodium chloride 0.9 % 150 mL infusion 07/02/2019 11:15:00 AM EDT 150 mg Intravenous completed Small cell carcinoma 150 mg, Intravenous, Once, W ed 07/02/19 at 1115, For 1 dose
Give 30 minutes before chemotherapy over 20-30 minutes.
[facility] Small cell carcinoma Medication administered onsite Prochlorperazine 10 MG Oral Tablet Proch lorperazine Maleate 10 MG Oral Tablet (COMPAZINE) Prochlorperazine Maleate 10 MG Oral Tablet (COMPAZINE) 07/02/2019 12:00:00 AM EDT 10 mg Oral active Take 1 tablet by mouth every 6 (six) hours as needed for up to 7 days [facility] Ondansetron 4 MG Oral Tablet Ondansetron HCl 4 MG Oral Tablet (Zofran) Ondansetron HCl 4 MG Oral Tablet (Zofran) 07/02/2019 12:00:00 AM EDT 8 mg Oral active Take 2 tablets by mouth every 8 (eight) hours as needed for Nausea [facility] 10 mg 06/13/2019 12:00:00 AM EDT tablet [...] chemo) 30 minutes before chemo pill etoposide [facility] sodium chloride 0.9 % bolus 500 mL [id number] 06/11/2019 02:15:00 PM EDT 500 mL Intravenous completed Small cell carcinoma 500 mL, Intravenous, Once, Sun06/11/19 at 1415, For 1 dose
Give after Cisplatin. Remove KCL from IV bag if K+ > 4.8 and/or remove Mag from bag if Mag > 2.2.
[facility] Small cell carcinoma Medication administered onsite Magnesium Oxide 400 MG Oral Tablet Magnesium Oxide (MA G-OX) tablet 400 mg Magnesium Oxide (MAG-OX) tablet 400 mg 06/11/2019 01:15:00 PM EDT 4 00 mg Oral completed 400 mg, Oral, Once, Wed at 1315, For 1 dose [facility] Medication administered onsite etoposide (VEPESID) 156 mg [...] for hypotension.Infuse through a 0.22 micron filter.
[facility] Small cell carcinoma Medication administered onsite CISplatin [...] dose
Do not refrigerate. Protect from light.
[facility] Small cell carcinoma Medication administered onsite sodium chloride 0.9 % 1,000 mL bolus 06/11/2019 10:15:00 A M EDT Intravenous completed Small cell carcinoma Int ravenous, at 500 mL/hr, Once, 06/11/19 at 1015, For 1 dose
Infuse at 500 mL/hr until urine parameters are met.If after 1000 mL infused and urine parameters are not met, contact .
[facility] Small cell carcinoma Medication administered onsite fosaprepitant dimeglumine (EMEND) 150 mg in sodium chloride 0.9 % 150 mL infusion 06/11/2019 10:15:00 AM EDT 150 mg Intravenous completed Small cell carcinoma 150 mg, Intravenous, Once, W ed 06/11/19 at 1015, For 1 dose
Give 30 minutes before chemotherapy over 20-30 minutes.
[facility] Small cell carcinoma Medication administered onsite Lorazepam 0.5 MG Oral Tablet LORazepam (ATIVAN) tablet 0.5 mg LORazepam (ATIVAN) tablet 0.5 mg 06/11/2019 10:15:00 AM EDT 0.5 mg Oral completed Small cell carcinoma 0.5 mg, Oral, Once, Wed 06/10 at 1015, For 1 dose
Give prior to chemotherapy
[facility] Small cell carcinoma Medication administered onsite Ondansetron 8 MG Oral Tablet ondansetron (ZOFRAN) tabl et 16 mg ondansetron (ZOFRAN) tablet 16 mg 06/11/2019 10:15:00 AM EDT 16 mg Oral completed Small cell carcinoma 16 mg, Oral, Once, Wed at 1015, For 1 dose
Give prior to chemotherapy
[facility] Small cell carcinoma Medication administered onsite Dexamethasone 4 MG Oral Tablet dexamethasone (DECADRON ) tablet 8 mg dexamethasone (DECADRON) tablet 8 mg 06/11/2019 10:15:00 AM EDT 8 mg Oral completed Small cell carcinoma 8 mg, Oral, Once, W ed 06/11/19 at 1015, For 1 dose
Give prior to chemotherapy.
[facility] Small cell carcinoma Medication administered onsite Ondansetron 4 MG Oral Tablet Ondansetron HCl 4 MG Oral Tablet (Zofran) Ondansetron HCl 4 MG Oral Tablet (Zofran) 06/11/2019 12:00:00 AM EDT 4 mg Oral aborted Take 1 tablet by mouth every 8 (eight) hours as needed for Nausea [facility] Prochlorperazine 10 MG Oral Tablet Proch lorperazine Maleate 10 MG Oral Tablet (COMPAZINE) Prochlorperazine Maleate 10 MG Oral Tablet (COMPAZINE) 06/11/2019 12:00:00 AM EDT 10 mg Oral active Take 1 tablet by mouth every 6 (six) hours as needed [facility] Etoposide 50 MG Oral Capsule Etoposide 50 MG Oral Caps ule (VEPESID) Etoposide 50 MG Oral Capsule (VEPESID) 06/11/2019 12:00:00 AM EDT 150 mg Oral active Take 3 capsules by mouth Two Times Daily for 2 daysTake on 06/11 and 06/12 (days 2 and 3 of chemo) [facility] 1,000 mg 06/06/2019 12:00:00 AM EDT tablet [...] EDT active Blood Pressure Kit - eCW1 ([facility]) Blood Pressure Kit - Blood Pressure Kit - 05/27/2019 12:00:00 AM EDT active Blood Pressure Kit - eCW1 ([facility]) Blood Pressure Kit - Blood Pressure Kit - 05/27/2019 12:00:00 AM EDT active Blood Pressure Kit - eCW1 ([facility]) Blood Pressure Kit - Blood Pressure Kit - 05/27/2019 12:00:00 AM EDT active Blood Pressure Kit - eCW1 ([facility]) Blood Pressure Kit - Blood Pressure Kit - 05/27/2019 12:00:00 AM EDT active Blood Pressure Kit - eCW1 ([facility]) Blood Pressure Kit - Blood Pressure Kit - 05/27/2019 12:00:00 AM EDT active Blood Pressure Kit - eCW1 ([facility]) Blood Pressure Kit - Blood Pressure Kit - 05/27/2019 12:00:00 AM EDT active Blood Pressure Kit - eCW1 ([facility]) Blood Pressure Kit - Blood Pressure Kit - 05/27/2019 12:00:00 AM EDT active as directed eCW1 ([facility]) Levothyroxine Sodium 0.1 MG Oral Tablet Levothyroxine Sodium 100 MCG Oral Tablet (SYNTHROID, LEVOTHROID) Levothyroxine Sodium 100 MCG Oral Tablet (SYNTHROID, LEVOTHROID) 05/21/2019 12:00:00 AM EDT 100 ug Oral aborte d Take 1 tablet by mouth every morning [facility] etoposide (VEPESID) 156 mg in sodium chloride [...] for hypotension.Infuse through a 0.22 micron filter.
[facility] Small cell carcinoma Medication administered onsite ondansetron (ZOFRAN) injection 16 mg [id number] 05/20/2019 12:30: 00 PM EDT 16 mg Intravenous completed Small cell carcinoma 16 mg, Intravenous, Once, 05/20/19 at 1230, For 1 dose
Give 30 minutes prior to chemo
[facility] Small cell carcinoma Medication administered onsite Dexamethasone 4 MG Oral Tablet dexamethasone (DECADRON ) tablet 8 mg dexamethasone (DECADRON) tablet 8 mg 05/20/2019 12:30:00 PM EDT 8 mg Oral completed Small cell carcinoma 8 mg, Oral, Once, T ue 05/20/19 at 1230, For 1 dose
Give prior to chemotherapy.
[facility] Small cell carcinoma Medication administered onsite Ondansetron 8 MG Oral Tablet ondansetron (ZOFRAN) tabl et 8 mg ondansetron (ZOFRAN) tablet 8 mg 05/20/2019 09:00:00 AM EDT 8 mg Oral completed 8 mg, Oral, Once, e 05/20/19 at 0900, For 1 dose [facility] Medication administered onsite Prochlorperazine 10 MG Oral Tablet Proch lorperazine Maleate 10 MG Oral Tablet (COMPAZINE) Prochlorperazine Maleate 10 MG Oral Tablet (COMPAZINE) 05/20/2019 12:00:00 AM EDT 10 mg Oral active Take 1 tablet by mouth every 6 (six) hours as needed for up to 7 days [facility] Ondansetron 8 MG Disintegrating Oral Tab let Ondansetron 8 MG Oral Tablet Disintegrating Ondansetron 8 MG Oral Tablet Disintegrating 05/20/2019 12:00:00 AM EDT 8 mg Oral active Take 1 t ablet by mouth every 8 (eight) hours as needed for Nausea or Vomiting for up to 7 days [facility] Ondansetron 4 MG Oral Tablet Ondansetron HCl 4 MG Oral Tablet (ZOFRAN) Ondansetron HCl 4 MG Oral Tablet (ZOFRAN) 05/20/2019 12:00:00 AM EDT 4 mg Oral aborted Take 1 tablet by mouth every 12 (twelve) hours as needed for Nausea for up to 7 days [facility] Acetaminophen 325 MG / Hydrocodone Hector trate 5 MG Oral Tablet HYDROcodone- Acetaminophen 5-325 MG Oral Tablet (LORTAB) HYDROcodone-Acetaminophen 5-325 MG Oral Tablet (LORTAB) 05/20/2019 12:00:00 AM EDT 1 {tbl} Oral active Take 1 tablet by mouth every 6 (six) hours as needed for up to 7 days, Max Daily Dose: 4 tablets [facility] Benzocaine 15 MG / Menthol 3.6 MG Oral L ozenge Benzocaine-Menthol 15-3.6 MG Mouth/Throat Lozenge (CEPACOL) Benzocaine-Menthol 15-3.6 MG Mouth/Throa t Lozenge (CEPACOL) 05/20/2019 12:00:00 AM EDT 1 {lozenge} Mouth/Throat active Use as directed 1 lozenge in the mouth or throat every 2 (two) hours as needed [facility] atorvastatin 40 MG Oral Tablet Atorvastatin Calcium 40 MG Oral Tablet (LIPITOR) Atorvastatin Calcium 40 MG Oral Tablet (LIPITOR) 05/20/2019 12:00:00 AM EDT 40 mg Oral active Take 1 tablet by mouth e very evening [facility] Acetaminophen 325 MG Oral Tablet Acetaminophen 325 MG Oral T ablet 05/20/2019 12:00:00 AM EDT 650 mg Oral active Take 2 tablets by mouth every 6 (six) hours as needed for up to 10 days [facility] Lisinopril 10 MG Oral Tablet Lisinopril 10 MG Oral Tab let (PRINIVIL,ZESTRIL) Lisinopril 10 MG Oral Tablet (PRINIVIL,ZESTRIL) 05/20/2019 12:00:00 AM EDT 10 mg Oral aborted Take 1 tablet by mouth e very evening [facility] Metoprolol Tartrate 50 MG Oral Tablet Me toprolol Tartrate 50 MG Oral Tablet (LOPRESSOR) Metoprolol Tartrate 50 MG Oral Tablet (LOPRESSOR) 04/27 12:00:00 AM EDT 50 mg Oral active Take 1 tablet by mouth Two Times Daily [facility] Cholecalciferol 1000 UNT Oral Tablet Vit miranda D3 25 MCG (1000 UT) Oral Tablet (CHOLECALCIFEROL) Vitamin D3 25 MCG (1000 UT) Oral Tablet (CHOLECALCIFER OL) 05/20/2019 12:00:00 AM EDT 2000 U Oral aborted Take 2 tablets by mouth nightly [facility] Allopurinol 300 MG Oral Tablet Allopurinol 300 MG Oral Tablet (ZYLOPRIM) Allopurinol 300 MG Oral Tablet (ZYLOPRIM) 05/20/2019 12:00:00 AM EDT 300 mg Oral active Take 1 tablet by violette th daily [facility] etoposide (VEPESID) 156 mg in sodium chloride [...] for hypotension.Infuse through a 0.22 micron filter.
[facility] Small cell carcinoma Medication administered onsite Dexamethasone 4 MG Oral Tablet dexamethasone (DECADRON ) tablet 8 mg dexamethasone (DECADRON) tablet 8 mg 05/19/2019 02:00:00 PM EDT 8 mg Oral completed Small cell carcinoma 8 mg, Oral, Once, M on 05/19/19 at 1400, For 1 dose
Give prior to chemotherapy.
[facility] Small cell carcinoma Medication administered onsite Ondansetron 8 MG Oral Tablet ondansetron (ZOFRAN) tabl et 16 mg ondansetron (ZOFRAN) tablet 16 mg 05/19/2019 02:00:00 PM EDT 16 mg Oral completed Small cell carcinoma 16 mg, Oral, Once, Mon at 1400, For 1 dose
Give prior to chemotherapy
[facility] Small cell carcinoma Medication administered onsite TC-99M medronate (Tc-MDP) [id number] 05/19/2019 10:45:00 AM EDT Intravenous completed Intravenous, Once, 05/19/19 at 1045, For 1 dose, Imaging Protocol [facility] Medication administered onsite 2 ML Metoclopramide 5 MG/ML Prefilled Sy ringe metoclopramide (REGLAN) injection 10 mg metoclopramide (REGLAN) injection 10 mg 05/18/2019 11:21:46 PM E DT 10 mg Intravenous active 10 mg, I ntravenous, Every 6 hours PRN, Heartburn, Starting 05/18/19 at 2321, For 30 days [facility] Medication administered onsite etoposide (VEPESID) 156 mg [...] for hypotension.Infuse through a 0.22 micron filter.
[facility] Small cell carcinoma Medication administered onsite sodium chloride 0.9 % bolus 500 mL [id number] 05/18/2019 03:00:00 PM EDT 500 mL Intravenous completed Small cell carcinoma 500 mL, Intravenous, Once, 05/18/19 at 1500, For 1 dose
Give after Cisplatin. Remove KCL from IV bag if K+ > 4.8 and/or remove Mag from bag if Mag > 2.2.
[facility] Small cell carcinoma Medication administered onsite CISplatin [...] dose
Do not refrigerate. Protect from light.
[facility] Small cell carcinoma Medication administered onsite fosaprepitant dimeglumine (EMEND) 150 mg in sodium chloride 0.9 % 150 mL infusion 05/18/2019 02:00:00 PM EDT 150 mg Intravenous completed Small cell carcinoma 150 mg, Intravenous, Once, S un 05/18/19 at 1400, For 1 dose
Give 30 minutes before chemotherapy over 20-30 minutes.
[facility] Small cell carcinoma Medication administered onsite Lorazepam 0.5 MG Oral Tablet LORazepam (ATIVAN) tablet 0.5 mg LORazepam (ATIVAN) tablet 0.5 mg 05/18/2019 02:00:00 PM EDT 0.5 mg Oral completed Small cell carcinoma 0.5 mg, Oral, Once, Sun 05/17 at 1400, For 1 dose
Give prior to chemotherapy
[facility] Small cell carcinoma Medication administered onsite Ondansetron 8 MG Oral Tablet ondansetron (ZOFRAN) tabl et 16 mg ondansetron (ZOFRAN) tablet 16 mg 05/18/2019 02:00:00 PM EDT 16 mg Oral completed Small cell carcinoma 16 mg, Oral, Once, Sun at 1400, For 1 dose
Give prior to chemotherapy
[facility] Small cell carcinoma Medication administered onsite Dexamethasone 4 MG Oral Tablet dexamethasone (DECADRON ) tablet 8 mg dexamethasone (DECADRON) tablet 8 mg 05/18/2019 02:00:00 PM EDT 8 mg Oral completed Small cell carcinoma 8 mg, Oral, Once, S un 05/18/19 at 1400, For 1 dose
Give prior to chemotherapy.
[facility] Small cell carcinoma Medication administered onsite sodium chloride 0.9 % 1,000 mL bolus 05/18/2019 12:30:00 P M EDT Intravenous completed Small cell carcinoma Int ravenous, at 500 mL/hr, Once, 05/18/19 at 1230, For 1 dose
Infuse at 500 mL/hr until urine parameters are met.If after 1000 mL infused and urine parameters are not met, contact .
[facility] Small cell carcinoma Medication administered onsite gadobutrol (GADAVIST) contrast injection 8.5 mL [id number] 05/17/2019 06:00:00 PM EDT 0.1 mL/kg Intravenous completed 8.5 mL (rounded from 8.65 mL = 0.1 mL/kg 86.5 kg), Intravenous, 1 TIME IMAGING, 05/17/19 at 1800, For 1 dose
Do not mix or administer in the same IV line with other medications.
[facility] Medication administered onsite 1 ML Lorazepam 2 MG/ML Injection LORazepam (ATIVAN) in jection 0.5 mg LORazepam (ATIVAN) injection 0.5 mg 05/17/2019 05:00:00 PM EDT 0.5 mg Intrave nous completed 0.5 mg, Intravenous, Once, Sat at 1700, For 1 dose [facility] Medication administered onsite Benzocaine 15 MG / Menthol 3.6 MG Oral L ozenge Benzocaine-Menthol (CEPACOL) 15- 3.6 MG lozenge 1 lozenge Benzocaine-Menthol (CEPACOL) 15-3.6 MG l ozenge 1 lozenge 05/17/2019 12:19:42 PM EDT 1 {lozenge} Mouth/Throat active 1 lozenge, Mouth/Throat, Every 2 hours PRN, Sore Throat, Starting 05/17/19 at 1219, For 30 days [facility] Medication administered onsite lidocaine (XYLOCAINE) 1 % injection 5 mL [id number] 05/17/2019 11:33:14 AM EDT 5 mL Subcutaneous active 5 m L, Subcutaneous, Once PRN, for PICC insertion, Starting 05/17/19 at 1133, For 30 days [facility] Medication administered onsite sodium chloride (preservative free) [...] C-34H Central Line Policy.
[Order 4 End] [facility] Medication administered onsite Levothyroxine Sodium 0.05 MG Oral Tablet levothyroxine (SYNTHROID, LEVOTHROID) tablet 100 mcg levothyroxine (SYNTHROID, LEVOTHROID) tablet 100 mcg 0 05/17/2019 09:00:00 AM EDT 100 ug Oral active 100 mcg, Oral, Every morning, First dose (after last modification) on 05/17/19 at 0900, For 30 days [facility] Medication administered onsite Insulin Lispro 100 UNT/ML [...] Summary or Summary Report within the ED.
[facility] Medication administered onsite sodium polystyrene (KAYEXALATE) powder 15 g [id number] 05/17/2019 04:15:00 AM EDT 15 g Oral completed 15 g, Oral, Once, 05/17/19 at 0415, For 1 dose
Mix with 60 mL water and shake well.
[facility] Medication administered onsite Cholecalciferol 1000 UNT Oral Tablet Vit miranda D3 (CHOLECALCIFEROL) tablet 2,000 Units Vitamin D3 (CHOLECALCIFEROL) tablet 2,000 Units 2019 10:00:00 PM EDT 2000 U Oral active 2,000 Un its, Oral, Nightly, First dose on Sun05/16/19 at 2200, For 30 days
25 mcg vitamin D3 = 1,000 International Units vitamin D3.
[facility] Medication administered onsite Metoprolol Tartrate 50 MG Oral Tablet metoprolol (LOPR ESSOR) tablet 50 mg metoprolol (LOPRESSOR) tablet 50 mg 05/16/2019 09:00:00 PM EDT 50 mg Oral active 50 mg, Oral, 2 Times Daily, First dose on Sun05/16/19 at 2100, For 30 days [facility] Medication administered onsite Lisinopril 5 MG Oral Tablet lisinopril (PRINIVIL,ZESTR IL) tablet 10 mg lisinopril (PRINIVIL,ZESTRIL) tablet 10 mg 05/16/2019 09:00:00 PM EDT 10 mg Oral active 10 mg, Oral, E very evening, First dose on Sun05/16/19 at 2100, For 30 days [facility] Medication administered onsite atorvastatin 40 MG Oral Tablet atorvastatin (LIPITOR) tablet 40 mg atorvastatin (LIPITOR) tablet 40 mg 05/16/2019 09:00:00 PM EDT 40 mg Oral active 40 mg, Oral, Every evening, First dose on Sun05/16/19 at 2100, For 30 days [facility] Medication administered onsite Glucagon 1 MG Injection glucagon (human recombinant) ( GLUCAGEN) injection 1 mg glucagon (human recombinant) (GLUCAGEN) injection 1 mg 05/16/2019 06:42:47 PM EDT 1 mg Intramuscular active 1 mg, Intramuscular, PRN, for glucose <55 without IV access, Starting Sun05/16/19 at 1842, For 30 days [facility] Medication administered onsite Glucose 0.4 MG/MG Oral Gel glucose (GLUTOSE) 40 % oral gel 15 g glucose (GLUTOSE) 40 % oral gel 15 g 05/16/2019 06:42:47 PM EDT 15 g Oral active 15 g, Oral, PRN, Low blood s ugar, for gluose 55-69 mg/dl and able to take PO, Starting Sun05/16/19 at 1842, For 30 days [facility] Medication administered onsite dextrose 50 % IV solution 25 mL [id number] 05/16/2019 06:42:47 PM E DT 25 mL Intravenous active 25 mL, Intrav enous, PRN, Other, blood glucose <55, Starting Sun05/16/19 at 1842, For 30 days
Not for midline administration.
[facility] Medication administered onsite iohexol (OMNIPAQUE) 240 MG/ML contrast 20 mL [id number] 05:57:07 PM EDT 20 mL Oral completed 20 mL, Oral, O nce PRN, Contrast, Per Protocol, Starting Sun05/16/19 at 1757, For [address] to tell RN administration time of first dose. Dilute in 500 mL liquid x1 Now per protocol. Use "Contrast dose chart" link for dosing guidelines.
[facility] Medication administered onsite iohexol (OMNIPAQUE) 240 MG/ML contrast 20 mL [id number] 05:57:07 PM EDT 20 mL Oral completed 20 mL, Oral, O nce PRN, Contrast, Per Protocol, Starting Sun05/16/19 at 1757, For [address] Scanner prior. outbound call center representative to CT.Dilute in 500 mL liquid x1 insulation power unit tender to CT scan - per protocol. Use "Contrast dose chart" link for dosing guidelines.
[facility] Medication administered onsite Acetaminophen 325 MG / [...] mg from all sources in 24 hours.
[facility] Medication administered onsite Allopurinol 300 MG Oral Tablet allopurinol (ZYLOPRIM) tablet 300 mg allopurinol (ZYLOPRIM) tablet 300 mg 05/16/2019 05:15:00 PM EDT 300 mg Oral active 300 mg, Oral, Daily Standard, First dose on Sun at 1715, For 8 doses [facility] Medication administered onsite Acetaminophen 325 MG Oral [...] mg from all sources in 24 hours.
[facility] Medication administered onsite NaCl infusion 0.9 % [id number] 05/16/2019 04:45:00 PM EDT Intravenous active at 100 mL/hr, Intrav enous, Continuous, Starting Sun05/16/19 at 1645, For 30 days [facility] Medication administered onsite Glucagon 1 MG Injection glucagon (human recombinant) ( GLUCAGEN) injection 1 mg glucagon (human recombinant) (GLUCAGEN) injection 1 mg 05/16/2019 04:41:30 PM EDT 1 mg Intramuscular active 1 mg, Intramuscular, PRN, for glucose <55 without IV access, Starting Sun05/16/19 at 1641, For 30 days [facility] Medication administered onsite dextrose 50 % IV solution 25 mL [id number] 05/16/2019 04:41:30 PM E DT 25 mL Intravenous active 25 mL, Intrav enous, PRN, Other, blood glucose <55, Starting Sun05/16/19 at 1641, For 30 days
Not for midline administration.
[facility] Medication administered onsite Glucose 0.4 MG/MG Oral Gel glucose (GLUTOSE) 40 % oral gel 15 g glucose (GLUTOSE) 40 % oral gel 15 g 05/16/2019 04:41:30 PM EDT 15 g Oral active 15 g, Oral, PRN, Low blood s ugar, for gluose 55-69 mg/dl and able to take PO, Starting Sun05/16/19 at 1641, For 30 days [facility] Medication administered onsite Bisacodyl 10 MG Rectal Suppository bisacodyl (DULCOLAX ) suppository 10 mg bisacodyl (DULCOLAX) suppository 10 mg 05/16/2019 04:39:56 PM EDT 10 mg Rectal active 10 mg, Rectal, Daily PRN, Constipation, Constipation, Starting 05/16/19 at 1639, For 30 days [facility] Medication administered onsite 50 mg 04/09/2019 12:00:00 [...] with food or milk as needed eCW1 ([facility]) Naproxen sodium 220 MG Oral Capsule [Aleve] Aleve 220 MG Kesha ve 220 MG 04/08/2019 12:00:00 AM EST 1.0 {capsule_with_food_or_milk_as_needed} suspended Aleve 220 MG eCW1 ([facility]) Metformin hydrochloride 500 MG Oral Tablet Metformin H Cl 500 MG Metformin HCl 500 MG 04/08/2019 12:00:00 AM EST active 1 tablet with a meal eCW1 ([facility]) Naproxen sodium 220 MG Oral Capsule [Aleve] Aleve 220 MG Kesha ve 220 MG 04/08/2019 12:00:00 AM EST 1.0 {capsule_with_food_or_milk_as_needed} active Aleve 220 MG eCW1 ([facility]) Naproxen sodium 220 MG Oral Capsule [Aleve] Aleve 220 MG Kesha ve 220 MG 04/08/2019 12:00:00 AM EST 1.0 {capsule_with_food_or_milk_as_needed} active Aleve 220 MG eCW1 ([facility]) Naproxen sodium 220 MG Oral Capsule [Aleve] Aleve 220 MG Kesha ve 220 MG 04/08/2019 12:00:00 AM EST 1.0 {capsule_with_food_or_milk_as_needed} active Aleve 220 MG eCW1 ([facility]) Naproxen sodium 220 MG Oral Capsule [Aleve] Aleve 220 MG Kesha ve 220 MG 04/08/2019 12:00:00 AM EST active 1 capsu le with food or milk as needed eCW1 ([facility]) Naproxen sodium 220 MG Oral Capsule [Aleve] Aleve 220 MG Kesha ve 220 MG 04/08/2019 12:00:00 AM EST 1.0 {capsule_with_food_or_milk_as_needed} suspended Aleve 220 MG eCW1 ([facility]) Naproxen sodium 220 MG Oral Capsule [Aleve] Aleve 220 MG Kesha ve 220 MG 04/08/2019 12:00:00 AM EST 1.0 {capsule_with_food_or_milk_as_needed} suspended Aleve 220 MG eCW1 ([facility]) Naproxen sodium 220 MG Oral Capsule [Aleve] Aleve 220 MG Kesha ve 220 MG 04/08/2019 12:00:00 AM EST 1.0 {capsule_with_food_or_milk_as_needed} active Aleve 220 MG eCW1 ([facility]) 10 mg 03/07/2019 12:00:00 AM EST tablet [...] Take 100 mc g by mouth Daily [facility] Cholecalciferol 2000 UNT Oral Tablet Vitamin D 50 MCG (1999) Oral Tablet Vitamin D 50 MCG (1999) Oral Tablet 2000 U Oral aborted Take 2,000 Units by mouth daily [facility] Metformin hydrochloride 1000 MG Oral Tab let metFORMIN HCl 1000 MG Oral Tablet (GLUCOPHAGE) metFORMIN HCl 1000 MG Oral Tablet (GLUCOPHAGE) 1000 mg Oral aborted Take 1,000 mg by mouth every morning [facility] Metoprolol Tartrate 50 MG Oral Tablet Me toprolol Tartrate 50 MG Oral Tablet (LOPRESSOR) Metoprolol Tartrate 50 MG Oral Tablet (LOPRESSOR) 50 mg Oral aborted Take 50 mg by mouth Two Time s Daily [facility] atorvastatin 40 MG Oral Tablet Atorvastatin Calcium 40 MG Oral Tablet (LIPITOR) Atorvastatin Calcium 40 MG Oral Tablet (LIPITOR) 40 mg Oral aborted Take 40 mg by mouth every evening [facility] Lisinopril 10 MG Oral Tablet Lisinopril 10 MG Oral Tab let (PRINIVIL,ZESTRIL) Lisinopril 10 MG Oral Tablet (PRINIVIL,ZESTRIL) 10 mg Oral aborted Take 10 mg by mouth daily [facility] Levothyroxine Sodium 0.05 MG Oral Tablet Levothyroxine Sodium 50 MCG Oral Tablet (SYNTHROID) Levothyroxine Sodium 50 MCG Oral Tablet (SYNTHROID) 50 ug Oral aborted Take 50 mcg by mouth [facility] Levothyroxine Sodium 0.025 MG Oral Table t Levothyroxine Sodium 25 MCG Oral Tablet (SYNTHROID) Levothyroxine Sodium 25 MCG Oral Tablet (SYNTHROID) 25 ug Oral aborted Take [address] [facility] Insurance Providers Payer name Policy type / Coverage type Policy ID Covered democrat ID Covered democrat's relationship to chu Policy Chu Plan Information CORI [id number] SP [id number] CORI I [id number] Self [id number] MEDICAID M [id number] Self [id number] CORI EXCHANGE U [id number] Self [id number] [place] [id number] S [id number] CORI [facility] [place] [id number] SP [id number] CORI EXCHANGE U [id number] Self [id number] ANSI-Commercial [id number] ANSI-Commercial [id number] ANSI-Commercial [id number] SELF PAY ONLY [id number] SP [id number] [facility] M[employer]O [id number] SP [id number] [facility] [id number] SP [id number] SELF PAY ONLY [id number] SP [id number] [facility] Health Maintenance Organization (HMO) [id number] Self [id number] [employer] Compensation [id number] Self [id number] [facility] Community Plan Commercial [id number] Self [id number] [facility] [id number] SP [id number] [facility] O [id number] S [id number] [facility] Health Maintenance Organization (HMO) Self SELF PAY ONLY [id number] SP [id number] SELF PAY UNAVAILABLE SP UNAVAILA BLE SELF PAY ONLY UNAVAILABLE SP UNAV AILABLE Problems, Conditions, and Diagnoses Code Display Name Description Problem Type Effective Dates Data Source(s) C34.90 [id number] 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, unspecified laterality Problem 01/29/2020 12:00:00 AM EST eCW1 ([facility]) [id number] Precordial pain Precordial pain Problem 12/15/2019 12:0 0:00 AM EDT [facility] ([facility]) [id number] Dyspnea Dyspnea Problem 12/15/2019 12:00:00 AM ED T [facility] ([facility]) [id number] Electrocardiogram abnormal Electrocardiogram abnormal Problem 12/15/2019 12:00:00 AM EDT [facility] ([facility]) [id number] Essential hypertension Essential hypertension Problem 12/15/2019 12:00:00 AM EDT [facility] ([facility]) [id number] Disorder of pericardium Disorder of pericardium Proble m 12/15/2019 12:00:00 AM EDT [facility] ([facility]) [id number] Coronary arteriosclerosis Coronary arteriosclerosis Pr oblem 12/15/2019 12:00:00 AM EDT [facility] ([facility]) E04.9 [id number] Enlarged thyroid Problem 09/09/2019 12:00:00 AM EDT eCW1 ([facility]) G93.89 [id number] Brain mass Problem 05/27/2019 12:00:00 AM ED T eCW1 ([facility]) C34.90 [id number] Small cell lung cancer Problem 05/27/2019 12 :00:00 AM EDT eCW1 ([facility]) F17.218 [id number] Cigarette nicotine d ependence with other nicotine- induced disorder Problem 05/27/2019 12:00:00 AM EDT eCW1 ([facility]) G93.89 [id number] Brain mass Problem 05/27/2019 12:00:00 AM ED T eCW1 ([facility] [facility]) C34.90 [id number] Small cell lung cancer Problem 05/27/2019 12 :00:00 AM EDT eCW1 ([facility]ly [facility]) F17.218 [id number] Cigarette nicotine d ependence with other nicotine- induced disorder Problem 05/27/2019 12:00:00 AM EDT eCW1 ([facility]) C79.49 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 S32.018A Other fracture of first lumb ar vertebra, initial encounter for closed fracture Other fracture of first lumbar vertebra, initial encounter for closed fracture Diagnosis 01/26/2020 01:02:24 PM [facility] on treat on treat Diagnosis 01/16/2020 02:51:[address] [facility] follow up follow up Diagnosis 11/19/2019 09:43:[address] [facility] treat treat Diagnosis 10/15/2019 03:23:[address] [facility] C80.1 Malignant (primary) neoplasm, unspecifie d Malignant (primary) neoplasm, unspecified Diagnosis 09/26/2019 10:33:00 AM [facility] C34.90 Malignant neoplasm of unspecified part o f unspecified bronchus or lung Malignant neoplasm of unspecified part of unspecified bronchus or lung Diagnosis 09/25/2019 09:52:04 [address] [facility] ct sim ct sim Diagnosis 09/24/2019 01:45:[address] 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, lung CA, needs chemo Diagnosis 05/17/2019 12:00:00 AM [facility] superior vena cava syndrome, lung CA superior ve na cava syndrome, lung CA Diagnosis 05/16/2019 03:27:59 PM [facility] Surgeries/Procedures Procedure Description Date Indications Data Source(s) BLOOD COUNT COMPLETE AUTO&AUTO DIFRNTL WBC COUNT CBC AND DIFFER ENTIAL Routine 03/31/2020 8:14 AM EST 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 03/31/2020 08:14:00 AM EST Small cell lung cancerSecondary malignant neoplasm of brain and spinal cord 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 MAGNESIUM MAGNESIUM LEVEL STAT 03/31/2020 8:14 AM EST 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 03/31/2020 08:14:00 AM EST Small cell lung cancerSecondary malignant neoplasm of brain and spinal cord 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 COMPREHENSIVE METABOLIC PANEL COMPREHENSIVE METABOLIC PANEL STA T 03/31/2020 8:14 AM EST 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 03/31/2020 08:14:00 AM EST Small cell lung cancerSecondary malignant neoplasm of brain and spinal cord 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 MRI BRAIN BRAIN STEM W/O &W/CONTRAST MATERIAL MR BRAI N WITH AND WITHOUT CONTRAST [id number] Routine 02/23/2020 10:16 AM EST Small cell lung cancer 02/23/2020 10:16:00 AM EST Small cell [facility] Small cell lung cancer BLOOD COUNT COMPLETE AUTO&AUTO DIFRNTL WBC COUNT CBC AND DIFFER ENTIAL Routine 01/21/2020 11:03 AM EST Small cell lung cancer 01/21/2020 11:03:00 AM EST Small cell [facility] Small cell lung cancer THYROID STIMULATING HORMONE TSH TSH Routine 01/21/20 20 11:03 AM EST Small cell lung cancer 01/21/2020 11:03:00 AM EST Small cell [facility] Small cell lung cancer COMPREHENSIVE METABOLIC PANEL COMPREHENSIVE METABOLIC PANEL STA T 01/21/2020 11:03 AM EST Small cell lung cancer 01/21/2020 11:03:00 AM EST Small cell [facility] Small cell lung cancer MRI BRAIN BRAIN STEM W/O &W/CONTRAST MATERIAL MR BRAI N WITH AND WITHOUT CONTRAST [id number] Routine 01/19/2020 2:08 PM EST Brain metastases 01/19/2020 02:08:00 PM EST Brain metastases [facility] Brain metastases THER RAD SIMULAJ-AIDED FIELD SETTING COMPLEX CT SIMUL ATION AT RAD ONC (IN OFFICE) Routine 01/12/2020 1:39 PM EST Small cell lung cancer 01/12/2020 01:39:00 PM EST Small cell [facility] Small cell lung cancer BONE &/JOINT IMAGING WHOLE BODY NM BONE SCAN IMAGING WHOLE BODY [id number] Routine 01/12/2020 12:36 PM EST Small cell lung cancer 01/12/2020 12:36:22 PM EST Small cell [facility] Small cell lung cancer CT ABDOEN & PELVIS W/CONTRAST MATERIAL CT ABDOMEN PELVIS WI TH CONTRAST [id number] Routine 01/12/2020 12:05 PM EST Small cell lung cancer 01/12/2020 12:05:00 PM EST Small cell [facility] Small cell lung cancer RADIOLOGY REPORT RADIOLOGY REPORT 01/07/2020 12:52 PM EST 01/07/2020 12:52:10 PM [facility] BLOOD COUNT COMPLETE AUTO&AUTO DIFRNTL WBC COUNT CBC AND DIFFER ENTIAL STAT 01/02/2020 12:57 PM EST Small cell lung cancer 01/02/2020 12:57:00 PM EST Small cell [facility] Small cell lung cancer THYROID STIMULATING HORMONE TSH TSH STAT 01/02/20 12:57 PM EST Small cell lung cancer 01/02/2020 12:57:00 PM EST Small cell [facility] Small cell lung cancer COMPREHENSIVE METABOLIC PANEL COMPREHENSIVE METABOLIC PANEL STA T 01/02/2020 12:57 PM EST Small cell lung cancer 01/02/2020 12:57:00 PM EST Small cell [facility] Small cell lung cancer BLOOD COUNT COMPLETE AUTO&AUTO DIFRNTL WBC COUNT CBC AND DIFFER ENTIAL STAT 12/25/2019 12:02 PM EDT Small cell lung cancer 12/25/2019 12:02:00 PM EDT Small cell [facility] Small cell lung cancer THYROID STIMULATING HORMONE TSH TSH STAT 12/25/19 20 12:02 PM EDT Small cell lung cancer 12/25/2019 12:02:00 PM EDT Small cell [facility] Small cell lung cancer COMPREHENSIVE METABOLIC PANEL COMPREHENSIVE METABOLIC PANEL STA T 12/25/2019 12:02 PM EDT Small cell lung cancer 12/25/2019 12:02:00 PM EDT Small cell [facility] Small cell lung cancer BLOOD COUNT COMPLETE AUTO&AUTO DIFRNTL WBC COUNT CBC AND DIFFER ENTIAL STAT 12/04/2019 11:40 AM EDT Small cell lung cancer 12/04/2019 11:40:00 AM EDT Small cell [facility] Small cell lung cancer THYROID STIMULATING HORMONE TSH TSH STAT 12/04/19 20 11:40 AM EDT Small cell lung cancer 12/04/2019 11:40:00 AM EDT Small cell [facility] Small cell lung cancer COMPREHENSIVE METABOLIC PANEL COMPREHENSIVE METABOLIC PANEL STA T 12/04/2019 11:40 AM EDT Small cell lung cancer 12/04/2019 11:40:00 AM EDT [facility] cell [facility] Small cell lung cancer RADIOLOGY REPORT RADIOLOGY REPORT 11/17/2019 12:51 PM EDT 11/17/2019 12:51:38 PM [facility] XR CHEST FRONTAL ONLY [id number] XR CHEST FRONTAL ONLY [id number] STAT 11/13/2019 1:29 PM EDT Small cell lung cancer 11/13/2019 01:29:59 PM EDT Small cell [facility] Small cell lung cancer BLOOD COUNT COMPLETE AUTO&AUTO DIFRNTL WBC COUNT CBC AND DIFFER ENTIAL STAT 11/13/2019 11:36 AM EDT Small cell lung cancer 11/13/2019 11:36:00 AM EDT Small cell [facility] Small cell lung cancer THYROID STIMULATING HORMONE TSH TSH STAT 11/13/19 20 11:36 AM EDT Small cell lung cancer 11/13/2019 11:36:00 AM EDT Small cell [facility] Small cell lung cancer COMPREHENSIVE METABOLIC PANEL COMPREHENSIVE METABOLIC PANEL STA T 11/13/2019 11:36 AM EDT Small cell lung cancer 11/13/2019 11:36:00 AM EDT Small cell [facility] Small cell lung cancer BLOOD COUNT COMPLETE AUTO&AUTO DIFRNTL WBC COUNT CBC AND DIFFER ENTIAL Routine 10/23/2019 11:53 AM EDT Small cell lung cancer 10/23/2019 11:53:00 AM EDT Small cell [facility] Small cell lung cancer THYROID STIMULATING HORMONE TSH TSH Routine 10/23/19 20 11:53 AM EDT Small cell lung cancer 10/23/2019 11:53:00 AM EDT Small cell katherine g cancer [facility] Small cell lung cancer COMPREHENSIVE METABOLIC PANEL COMPREHENSIVE METABOLIC PANEL STA T 10/23/2019 11:53 AM EDT Small cell lung cancer 10/23/2019 11:53:00 AM EDT Small cell [facility] Small cell lung cancer MRI BRAIN BRAIN STEM W/O &W/CONTRAST MATERIAL MR YAZMIN Finney WITH AND WITHOUT CONTRAST [id number] Routine 09/15/2019 3:55 PM EDT Small cell carcinoma 09/15/2019 07:55:22 PM EDT Small cell [facility] Small cell carcinoma IRON TOTAL FE BINDING CAPACITY STAT 09/11/2019 8:1 0 AM EDT Small cell carcinoma 09/11/2019 12:10:00 PM EDT Small cell [facility] Small cell carcinoma BLOOD COUNT COMPLETE AUTO&AUTO DIFRNTL WBC COUNT CBC AND DIFFER ENTIAL Routine 09/11/2019 8:10 AM EDT Small cell carcinoma 09/11/2019 12:10:00 PM EDT [facility] cell [facility] Small cell carcinoma THYROID STIMULATING HORMONE TSH TSH Routine 09/11/19 8:10 AM EDT Small cell carcinoma 09/11/2019 12:10:00 PM EDT [facility] cell [facility] Small cell carcinoma THIAMINE VITAMIN B1 Routine 09/11/2019 8:10 AM EDT Small cell carcinoma 09/11/2019 12:10:00 PM EDT [facility] cell [facility] Small cell carcinoma PYRIDOXAL PHOSPHATE VITAMIN B6 Routine 09/11/2019 8:10 AM EDT Small cell carcinoma 09/11/2019 12:10:00 PM EDT [facility] cell [facility] Small cell carcinoma FERRITIN FERRITIN LEVEL STAT 09/11/2019 8:10 AM EDT Small cell carcinoma 09/11/2019 12:10:00 PM EDT [facility] cell [facility] Small cell carcinoma CYANOCOBALAMIN VITAMIN B-12 VITAMIN B12 STAT 09/11/2019 8:10 AM EDT Small cell carcinoma 09/11/2019 12:10:00 PM EDT [facility] Small cell carcinoma COMPREHENSIVE METABOLIC PANEL COMPREHENSIVE METABOLIC PANEL STA T 09/11/2019 8:10 AM EDT Small cell carcinoma 09/11/2019 12:10:00 PM EDT [facility] cell [facility] Small cell carcinoma FOLIC ACID SERUM FOLATE Routine 09/11/2019 8:07 AM EDT Small cell carcinoma 09/11/2019 12:07:00 PM EDT [facility] cell [facility] Small cell carcinoma IRON BINDING CAPACITY TOTAL FE BINDING CAPACITY Routine 08/20/2019 7:57 AM EDT 08/20/2019 11:57:[address] [facility] BLOOD COUNT COMPLETE AUTO&AUTO DIFRNTL WBC COUNT CBC AND DIFFER ENTIAL STAT 08/20/2019 7:57 AM EDT Small cell carcinoma 08/20/2019 11:57:00 AM EDT [facility] cell [facility] Small cell carcinoma THYROID STIMULATING HORMONE TSH TSH Routine 08/20/19 20 7:57 AM EDT Small cell carcinoma 08/20/2019 11:57:00 AM EDT [facility] Small cell carcinoma FERRITIN FERRITIN LEVEL Routine 08/20/2019 7:57 AM EDT 08/20/2019 11:57:00 AM [facility] CYANOCOBALAMIN VITAMIN B-12 VITAMIN B12 Routine 08/20/2019 7:57 AM EDT 08/20/2019 11:57:00 AM [facility] COMPREHENSIVE METABOLIC PANEL COMPREHENSIVE METABOLIC PANEL STA T 08/20/2019 7:57 AM EDT Small cell carcinoma 08/20/2019 11:57:00 AM EDT [facility] cell [facility] Small cell carcinoma BLOOD COUNT COMPLETE AUTO&AUTO DIFRNTL WBC COUNT CBC AND DIFFER ENTIAL STAT 07/23/2019 8:40 AM EDT Small cell carcinoma 07/23/2019 12:40:00 PM EDT [facility] cell [facility] Small cell carcinoma THYROID STIMULATING HORMONE TSH TSH Routine 07/23/2019 8:40 AM EDT 07/23/2019 12:40:00 PM T [facility] MAGNESIUM MAGNESIUM LEVEL STAT 07/23/2019 8:40 AM EDT Small cell carcinoma 07/23/2019 12:40:00 PM EDT [facility] Small cell carcinoma COMPREHENSIVE METABOLIC PANEL COMPREHENSIVE METABOLIC PANEL STA T 07/23/2019 8:40 AM EDT Small cell carcinoma 07/23/2019 12:40:00 PM EDT [facility] cell [facility] Small cell carcinoma MRI BRAIN BRAIN STEM W/O &W/CONTRAST MATERIAL MR BRAI N WITH AND WITHOUT CONTRAST [id number] Routine 07/14/2019 12:57 PM EDT Small cell carcinoma 07/14/2019 04:57:00 PM EDT [facility] cell [facility] Small cell carcinoma BLOOD COUNT COMPLETE AUTOMATED CBC AND DIFFERENTIAL Routine 07/02/2019 9:43 AM EDT Small cell carcinoma 07/02/2019 01:43:00 PM EDT [facility] cell [facility] Small cell carcinoma THYROID STIMULATING HORMONE TSH TSH Routine 07/02/2019 9:43 AM EDT 07/02/2019 01:43:00 PM [facility] MAGNESIUM MAGNESIUM LEVEL STAT 07/02/2019 9:43 AM EDT Small cell carcinoma 07/02/2019 01:43:00 PM EDT [facility] cell [facility] Small cell carcinoma COMPREHENSIVE METABOLIC PANEL COMPREHENSIVE METABOLIC PANEL STA T 07/02/2019 9:43 AM EDT Small cell carcinoma 07/02/2019 01:43:00 PM EDT [facility] cell [facility] Small cell carcinoma BLOOD COUNT COMPLETE AUTOMATED CBC AND DIFFERENTIAL STAT 06/11/2019 8:43 AM EDT Small cell carcinoma 06/11/2019 12:43:00 PM EDT [facility] cell [facility] Small cell carcinoma MAGNESIUM MAGNESIUM LEVEL Routine 06/11/2019 8:43 AM EDT 06/11/2019 12:43:00 PM [facility] COMPREHENSIVE METABOLIC PANEL COMPREHENSIVE METABOLIC PANEL STA T 06/11/2019 8:43 AM EDT Small cell carcinoma 06/11/2019 12:43:00 PM EDT [facility] cell [facility] Small cell carcinoma POCT GLUCOSE, DOCKED POCT GLUCOSE, DOCKED Routine 05/20/2019 12:01 PM EDT 05/20/2019 04:01:00 PM [facility] POCT GLUCOSE, DOCKED POCT GLUCOSE, DOCKED Routine 05/20/2019 8:25 AM EDT 05/20/2019 12:25:00 PM [facility] BLOOD COUNT COMPLETE AUTO&AUTO DIFRNTL WBC COUNT CBC AND DIFFER ENTIAL Routine 05/20/2019 2:20 AM EDT 05/20/2019 06:20:00 AM [facility] PHOSPHORUS INORGANIC PHOSPHORUS LEVEL Routine 05/20/2019 2:20 AM E DT 05/20/2019 06:20:00 AM [facility] MAGNESIUM MAGNESIUM LEVEL Routine 05/20/2019 2:20 AM EDT 05/20/2019 06:20:00 AM [facility] BASIC METABOLIC PANEL CALCIUM TOTAL BASIC METABOLIC PANEL Routi ne 05/20/2019 2:20 AM EDT 05/20/2019 06:20:[address] [facility] GLUCOSE QUANTITATIVE BLOOD XCPT REAGENT STRIP POCT GLUCOSEKATIUSKA Routine 05/19/2019 9:29 PM EDT 05/20/2019 01:29:00 AM [facility] GLUCOSE QUANTITATIVE BLOOD XCPT REAGENT STRIP POCT GLUCOSE, KATIUSKA SALEEM Routine 05/19/2019 5:14 PM EDT 05/19/2019 09:14:00 PM [facility] BONE &/JOINT IMAGING WHOLE BODY NM BONE SCAN IMAGING WHOLE BODY [id number] Routine 05/19/2019 2:10 PM EDT 05/19/2019 06:10:24 PM [facility] GLUCOSE QUANTITATIVE BLOOD XCPT REAGENT STRIP POCT GLUCOSEKATIUSKA Routine 05/19/2019 11:40 AM EDT 05/19/2019 03:40:00 PM [facility] GLUCOSE QUANTITATIVE BLOOD XCPT REAGENT STRIP POCT GLUCOSE, KATIUSKA SALEEM Routine 05/19/2019 8:09 AM EDT 05/19/2019 12:09:00 PM [facility] BLOOD COUNT COMPLETE AUTO&AUTO DIFRNTL WBC COUNT CBC AND DIFFER ENTIAL Routine 05/19/2019 1:33 AM EDT 05/19/2019 05:33:00 AM [facility] PHOSPHORUS INORGANIC PHOSPHORUS LEVEL Routine 05/19/2019 1:33 AM E DT 05/19/2019 05:33:00 AM [facility] MAGNESIUM MAGNESIUM LEVEL Routine 05/19/2019 1:33 AM EDT 05/19/2019 05:33:00 AM [facility] HEMOGLOBIN GLYCOSYLATED A1C HEMOGLOBIN A1C Routine 05/19/2019 1:33 AM EDT 05/19/2019 05:33:00 AM [facility] BASIC METABOLIC PANEL CALCIUM TOTAL BASIC METABOLIC PANEL Routi ne 05/19/2019 1:33 AM EDT 05/19/2019 05:33:[address] [facility] GLUCOSE QUANTITATIVE BLOOD XCPT REAGENT STRIP POCT GLUCOSEKATIUSKA Routine 05/18/2019 8:32 PM EDT 05/19/2019 12:32:00 AM [facility] GLUCOSE QUANTITATIVE BLOOD XCPT REAGENT STRIP POCT GLUCOSEKATIUSKA Routine 05/18/2019 5:17 PM EDT 05/18/2019 09:17:00 PM [facility] GLUCOSE QUANTITATIVE BLOOD XCPT REAGENT STRIP POCT GLUCOSEKATIUSKA Routine 05/18/2019 12:22 PM EDT 05/18/2019 04:22:00 PM [facility] GLUCOSE QUANTITATIVE BLOOD XCPT REAGENT STRIP POCT GLUCOSEKATIUSKA Routine 05/18/2019 8:30 AM EDT 05/18/2019 12:30:00 PM [facility] BLOOD COUNT COMPLETE AUTO&AUTO DIFRNTL WBC COUNT CBC AND DIFFER ENTIAL Routine 05/18/2019 2:50 AM EDT 05/18/2019 06:50:00 AM [facility] PHOSPHORUS INORGANIC PHOSPHORUS LEVEL Routine 05/18/2019 2:50 AM E DT 05/18/2019 06:50:00 AM [facility] MAGNESIUM MAGNESIUM LEVEL Routine 05/18/2019 2:50 AM EDT 05/18/2019 06:50:00 AM [facility] COMPREHENSIVE METABOLIC PANEL COMPREHENSIVE METABOLIC PANEL Rou julissa 05/18/2019 2:50 AM EDT 05/18/2019 06:50:[address] [facility] GLUCOSE QUANTITATIVE BLOOD XCPT REAGENT STRIP POCT GLUCOSEKATIUSKA Routine 05/17/2019 9:48 PM EDT 05/18/2019 01:48:00 AM [facility] PICC ULTRASOUND - BEDSIDE PROCEDURE PICC ULTRASOUND - BEDSI DE PROCEDURE Routine 05/17/2019 7:05 PM EDT 05/17/2019 11:05:00 PM [facility] GLUCOSE QUANTITATIVE BLOOD XCPT REAGENT STRIP POCT GLUCOSEKATIUSKA Routine 05/17/2019 6:45 PM EDT 05/17/2019 10:45:00 PM [facility] MRI BRAIN BRAIN STEM W/O &W/CONTRAST MATERIAL MR BRAI N WITH AND WITHOUT CONTRAST [id number] Routine 05/17/2019 6:34 PM EDT 05/17/2019 10:34:00 PM [facility] GLUCOSE QUANTITATIVE BLOOD XCPT REAGENT STRIP POCT GLUCOSEKATIUSKA Routine 05/17/2019 12:23 PM EDT 05/17/2019 04:23:00 PM [facility] TROPONIN QUANTITATIVE TROPONIN T Timed 05/17/2019 8:54 AM EDT 05/17/2019 12:54:00 PM EDT [facility] GLUCOSE QUANTITATIVE BLOOD XCPT REAGENT STRIP POCT GLUCOSE, DOC KED Routine 05/17/2019 8:16 AM EDT 05/17/2019 12:16:00 PM EDT [facility] BLOOD COUNT COMPLETE AUTO&AUTO DIFRNTL WBC COUNT CBC AND DIFFER ENTIAL Routine 05/17/2019 2:14 AM EDT 05/17/2019 06:14:00 AM EDT [facility] TROPONIN QUANTITATIVE TROPONIN T Timed 05/17/2019 2:14 AM EDT 05[facility]17[facility]2019 [facility] COMPREHENSIVE METABOLIC PANEL Rere costa 05/17/2019 2:14 AM EDT 05/17/2019 06:14:[address] [facility] CT ABDOEN & PELVIS W/CONTRAST MATERIAL CT ABDOMEN PELVIS WI TH CONTRAST [id number] STAT 05/16/2019 10:59 PM EDT 05/17/2019 02:59:59 AM [facility] GLUCOSE QUANTITATIVE BLOOD XCPT REAGENT STRIP POCT GLUCOSE, DOC KED Routine 05/16/2019 8:56 PM EDT 05/17/2019 [facility]:56[facility]PLETE AUTO&AUTO DIFRNTL WBC COUNT CBC AND DIFFER ENTIAL Routine 05/16/2019 6:30 PM EDT 05/16/2019 10:30:00 PM [facility] TROPONIN QUANTITATIVE TROPONIN T Timed 05/16/2019 6:30 PM EDT 05/16/2019 [facility]:30[facility]IVE [facility]ABOLIC PANEL COMPREHENSIVE METABOLIC PANEL Rere costa 05/16/2019 6:30 PM EDT 05/16/2019 10:30:[address] [facility] EKG 12-LEAD - CMAXX REPORT EKG 12-LEAD - CMAXX REPORT 05/16/2019 5:43 PM EDT 05/16/2019 09:43:[address] [facility] EKG 12-LEAD - CMAXX REPORT EKG 12-LEAD - CMAXX REPORT 05/16/2019 5:43 PM EDT 05/16/2019 09:43:[address] [facility] EKG 12-LEAD - CMAXX REPORT EKG 12-LEAD - CMAXX REPORT 05/16/2019 5:40 PM EDT 05/16/2019 09:40:[address] [facility] EKG 12-LEAD EKG 12-LEAD Routine 05/16/2019 5:40 PM EDT 05/16/2019 09:40:11 PM EDT [facility] GLUCOSE QUANTITATIVE BLOOD XCPT REAGENT STRIP POCT GLUCOSE, DOC KED Routine 05/16/2019 5:37 PM EDT 05/16/2019 09:37:00 PM EDT [facility] Results ID Date Data Source [id number] 03/31/2020 03:20:01 PM EST [facility] Name Value Range Interpretation Code Description Data Lynn rce(s) Supporting Document(s) Progress Note [facility] [id number]/FOKtyVMXcq8NdEPtpULx0XIydWEQkZ5SxPIH6uG1zSOO1WEmOSeIbNeNbIuSb lbm [file] ICAgICAgICAgICAgICAgICAgICAgICAgICAgICAgICAgICAgICAgICAgICAgICAgICAgICAgICAgICAN CiAgICAgICAgICAgICAgICAgICAgICAgICAgICAgIC AgICAgICAgICAgICAgICAgICAgICAgICAgICAgICAgICAgICAgICAgICAgICAgICAgICAgICAgICAgIC AgICAgICAgICANCiAgICAgICAgICAgICAgICAgICAgICAgICAgICAgICAgICAgICAgICAgICAgICAgIC AgICAgICAgICAgICAgICAgICAgICAgICAgICAgICAg ICAgICAgICAgICAgICAgICAgICANCiAgICAgICAgICAgICAgICAgICAgICAgICAgICAgICAgICAgICAg ICAgICAgICAgICAgICAgICAgICAgICAgICAgICAgICAgICAgICAgICAgICAgICAgICAgICAgICAgICAg ICANCiAgICAgICAgICAgICAgICAgICAgICAgICAgIC AgICAgICAgICAgICAgICAgICAgICAgICAgICAgICAgICAgICAgICAgICAgICAgICAgICAgICAgICAgIC AgICAgICAgICAgICANCiAgICAgICAgICAgICAgICAgICAgICAgICAgICAgICAgICAgICAgICAgICAgIC AgICAgICAgICAgICAgICAgICAgICAgICAgICAgICAg ICAgICAgICAgICAgICAgICAgICAgICANCiAgICAgICAgICAgICAgICAgICAgICAgICAgICAgICAgICAg ICAgICAgICAgICAgICAgICAgICAgICAgICAgICAgICAgICAgICAgICAgICAgICAgICAgICAgICAgICAg ICAgICANCiAgICAgICAgICAgICAgICAgICAgICAgIC AgICAgICAgICAgICAgICAgICAgICAgICAgICAgICAgICAgICAgICAgICAgICAgICAgICAgICAgICAgIC AgICAgICAgICAgICAgICANCiAgICAgICAgICAgICAgICAgICAgICAgICAgICAgICAgICAgICAgICAgIC AgICAgICAgICAgICAgICAgICAgICAgICAgICAgICAg ICAgICAgICAgICAgICAgICAgICAgICAgICANCiAgICAgICAgICAgICAgICAgICAgICAgICAgICAgICAg ICAgICAgICAgICAgICAgICAgICAgICAgICAgICAgICAgICAgICAgICAgICAgICAgICAgICAgICAgICAg ICAgICAgICANCjw/hMFrQ6jdhHOgqqH3R8ldTj2UBk 9VRD3ok3HzMTLeIHloniDrBdrCWcJoWRZoWqzBLfu4VShmWA2MrWVaG2ZoQ5AeOXixQG2OXNEhCDVnzW MaCVCeUJObPvH7TWYySPxiAU6PfUGeQKxuJFFtSIAjKQ8GNIUkV120vzVjAD6SQf1IOhVzIA8lzx7WMY eyAPNbChhBRdd6EFnwET4WdRFohYYvMQZwYJYTAkFn Z9hws1YqKkJuMTAWORceAZ5Ez5UzmZJiMHk+Gd3IOM8sk2LkKAoyGAZkQF4bpu3MCXwOMrOaN3OmjHkj YLCnf6gxDEVjHL8gdUNjCLC2EKIyrd1bfhRaWmKQm3lzf7ooKM6KSGJ4ELZwBr5lPDLgNIL6MwI3NHDJ GX4VZNUfECTkpPGtANPeZSTWGW7DVJxbIFS6OXDiyn FxvUHvQWimYP7LMMDmmoHqGXkdMKBOPOp+Kw0EAM2wi9DlBObyILItFF9uzv1QZBqMSnZzD2B8jMTvU1 P1OZlsVn9POLFmJWWvRElqWIHXKXoaBZ2TPH9nysJ9MB8VrYVbVXRaAKDfsDNdZRg4G96biPNvBDflZZ 0KICA+Antelmo+Pa8AMONtKRNoILHgCmGzVVRSHrEcZ5Gs E6FRd9TyB8JbUH09gFbhdqUhNAbsTZ7DIB2qJEHvHQXWPM7IkWZkjT8bnpHmDIKxQQCTPmIaW28tiSRc DRYvFZO2RTPwPs4RVQEcQ5RciqKmrLxspyRzDDXiCQNUYJ2IZPbcyoXwuSJirSzxZC96wQefQS2NFs3G ZnGbRO3ktj4UnKSmKj3DMGVbWu6GKNRpBGZhBJFeCX P1UUVvIjFjZSvkPFLtVYQdSGP8SAJwGUVoBB1LMyZwDUXeJUJ9ZrdgWFKrONWugv0PMVCiGUVhJYR6DF DgGEWsAQViDHioXSZiMFZxMMN1ZOXlTGFqJS6SQaJmHKMaGJU1UhWmQQSbQMBxfr9GCDPpBOVqEBf6Zc DxMMLvPHDnEKdfMIBpKCQtXUU8XUNbBTXoWV4CWcGq SLXaCIEkPbIpBYRzCFLfcb9UHCQjLKRzBgMvTmMyRPDrAGAiTWldWELdDOO4DzQxPTMlLQHwEB8QPaGr SBToIUF8MqLcOIErWWOoul8FKVLiUMGcRKK6KAEwISDfYBUfAGrdBSGnIWL1YRS3PFGvJJRbSY4YPtDj LLQiZDMyXzQvPOHqGWVbkv3HRFIlGDSzCxWuXSDlFN UwHPFpJFzfEJDdJRW6QdI0OSCzXBWjSL6WBkTePVLsTFN2YTKyQTSmNDKixw1FLCApZZMnVbRyASEoZJ UwSLLaNPabVIFdETZ8PvCqJGVcRCGhCU3RGfWtCCRoFZc8XaOaHJXgXIKztw1YLPCpTCMqECa8UIWsZH AaFIPzOZp0uhHzcSTiIXk2RV7UO7UstzQtJrJJAl2S a647TATmVBMoGx9OB3qyMn5sQENoECSMIw3KVBe4VamsI8XhXoF6MGOqBgGvSFFeIHTpQYDjKpC6Iqgb MWE+RRggIBJnQbIyPRx7CJTxZdTqNTWnVOSqNqDnRfl1VTXyRL3vHTMXAf0+DQpzdGFydHhyZWYNCjE5 IgJ9ZXiwWPDGCi6G ID Date Data Source [id number] 03/31/2020 01:17:29 PM [facility] Name Value Range Interpretation Code Description Data Lynn rce(s) Supporting Document(s) Progress Note [facility] KYATGc0nXcATApQo75/XRFkqEZYsp0RoEYmvWIv4SLmxMJTgC3JaEZD3yK8sOYS0WCwCFpWwWkSrSoOx m [file] employee communications coordinator+K3KkPE0+qXAA7jIeG7sKRa+SX14jrLbA9UJ0280ycls31fziAhRR97Fwqb/sF+/d7xOnnti18v+t6 [file] ICAgICAgICAgICAgICAgICAgICAgICAgICAgICAgICAgICAgICAgICAgICAgICAgICAgICAgICAgICAg ICAgICAgICAgICAgICAgICAgICAgICAgICAgDQogICAgICAgICAgICAgICAgICAgICAgICAgICAgICAg ICAgICAgICAgICAgICAgICAgICAgICAgICAgICAgIC AgICAgICAgICAgICAgICAgICAgICAgICAgICAgICAgICAgICAgDQogICAgICAgICAgICAgICAgICAgIC AgICAgICAgICAgICAgICAgICAgICAgICAgICAgICAgICAgICAgICAgICAgICAgICAgICAgICAgICAgIC AgICAgICAgICAgICAgICAgICAgDQogICAgICAgICAg ICAgICAgICAgICAgICAgICAgICAgICAgICAgICAgICAgICAgICAgICAgICAgICAgICAgICAgICAgICAg ICAgICAgICAgICAgICAgICAgICAgICAgICAgICAgDQogICAgICAgICAgICAgICAgICAgICAgICAgICAg ICAgICAgICAgICAgICAgICAgICAgICAgICAgICAgIC AgICAgICAgICAgICAgICAgICAgICAgICAgICAgICAgICAgICAgICAgDQogICAgICAgICAgICAgICAgIC AgICAgICAgICAgICAgICAgICAgICAgICAgICAgICAgICAgICAgICAgICAgICAgICAgICAgICAgICAgIC AgICAgICAgICAgICAgICAgICAgICAgDQogICAgICAg ICAgICAgICAgICAgICAgICAgICAgICAgICAgICAgICAgICAgICAgICAgICAgICAgICAgICAgICAgICAg ICAgICAgICAgICAgICAgICAgICAgICAgICAgICAgICAgDQogICAgICAgICAgICAgICAgICAgICAgICAg ICAgICAgICAgICAgICAgICAgICAgICAgICAgICAgIC AgICAgICAgICAgICAgICAgICAgICAgICAgICAgICAgICAgICAgICAgICAgDQogICAgICAgICAgICAgIC AgICAgICAgICAgICAgICAgICAgICAgICAgICAgICAgICAgICAgICAgICAgICAgICAgICAgICAgICAgIC AgICAgICAgICAgICAgICAgICAgICAgICAgDQogICAg ICAgICAgICAgICAgICAgICAgICAgICAgICAgICAgICAgICAgICAgICAgICAgICAgICAgICAgICAgICAg ABJnRFZePFElSONpXWLiNKNdBNFgIUGnNFMgVYRgGZMfLDDlZNa3F1qtFUOkVAPeJC0pHQp0Kd6+DQoN JfYeUCS8moIckT4HPJ9bu2EhOQopXETav8MhKHo8RR 3WOOCbINtqHU4NQIaeeh6AQETmEYQmxOTCw8fwUyVdOLP2BTDvIfndFN1LPTUtY5nqoxGcWMWrWWYWKV bfWEHUQEnkEBUUMO1BBnNuM8HqzL13RREVIs6+BBrpemDnVbnWWfH7LQRhu1HsLHx4AW7XRVLsKyosy0 ZkKmLaPAAJQNgdQB1BVKC9XDVnQZAfPg6ZYVSwX660 ycMhEO7WKz2KWqKdQB5luf8PYnZzTTXlTkxRIfb4GJoyRB9ScHUsNKcAzn9ickYntdOWt2HdfkTzjUAT sBl0tZYhLWGpmxvibPRiLXRrEK3TFHZ4LOSqPn4rYGVgUGJtGeWzBNLDZR6QXXQxKCHzoJUcYXRmHUTH RJ0DHThoGWS5KKOormVpeRPcBRmuDU5ROBYjdvJvYo kgMCBSDQo+Ia9DKA4va6RlDKxmRVNbDX1thv8YMSkDTcSrD8W0tSKkL8K4QJcgNt4KLIQyGFHmDrxyZX RSZJysOK9JKG4fcaC6YF5HnEHxYYHxUZCrlCHhAFk0S36fiMAbWJctOD1EWOP+Antelmo+Ak2DMRSaXYStBF ScFnVxFJEUReLxV6QiU9FCf4MoK3PbGP93zVhmnoCp MKtoZW5QQC9lCIAdZFPFRL9PiAErzT5xdmXrMVWuIQLOJoZkS71thXBsVGLeBLR5FINfJm8XUDFdT9Zo pyRtwEeobwHjTMRzJFIPXE0MLUiczsYvlSXspAncQE19qRfzJE1VKr8GBeLcNB9ggw9DhACjQm8YBLJy Pi4PFLNtUABkTDBkVVG0WDNlGiDlGDlnLLOzIUKrFD Z4XQFwNNJmHK0NSaTeBPBqYcv7PlvsYRYpZQHyan6VWLQiHDFlRLHeJOLrWBJcGCQbUPxeESJyQUFpBL B4QZGlRBZrKR0EGbZfOCUhHLK1NUOeKRGgQNFlgo0ZBRDiVQKtJOJ9COIrPBFqNQDxFHlwDWPbMLG0PF E6NWDaWUZpGJ2RGlUoSTEpYCtsBqGxDZXmHGFgvf5T UNVjVUIqECE8JDSkGYWqOHSuXCgwIYRfVBJ0XNt6XRCrFWUkRR4NXoNsCRUvYBR5YXCxHULvOCAjbj2F POCmWFTdYDU5QDWxQOPuQSGfQZznENLbPDHzDaS8NPQoPCQrWH8DWlNuELLgPVDgURCrMGNjNFMima0I BMWwECCpTlE0RBExWWRbCDSmBGruCNYxGCFhBUbhRC LcCWIoMY0TAfGsQLJmFhD4DialEVYkVJPvak6KXFDfRFCtBLA3CFYsPSBpGUCgECezNHMeIAB3EWEeQW JsGQYkYV5GCiLyLEPlYhA9BKRuJZFiJLPyps6YZZXkDPYfVMb2HMQtJWDnJCJdONxxLAFsRRA0PsifQT ApOIUnSP4AUwOgHGPwBlO3YFYdAVQsYTVice1RQYSr BIIiDxB9RXQnPLTwQHPdXBzoBWXxCSE7IXFgYQSyFAVzUO3VJpIuYGKbYujeKAMuQTPpCTOytr5SLUMw MHAoJsW4MQHyGIAfPHUdKIrsBVXtUTV1QXx5ZTNcWICzLH9FLwImWSDaOjlrGqqlTOKcSSUcme1OEGKy XJLnCVRhCRBpTLMxVOVyICoxINGvLBJ9WANiKMGkQH SfVM8VHgUvYKohKEIXTzn3IYrzU4u3LDKjHa8DS3Hzm8PoCqZuLGHUCSxyWR5qblKuFZZpZx2WZ2rAFs nfMoV9GzCrFgj4J2TmHBFcIxUmWxmoTvHmVrBqHGGfLP6nLWN5UImjPtC2GHozWTLkHeHyEcA4FTIeVU QwAWSkSPH7RnFpHP3KMr3KAuH4HUS1zLClQw4KIys0BFGPOgKcCK5NFZb= ID Date Data Source [id number] 03/31/2020 08:54:30 AM EST [facility] Name Value Range Interpretation Code Description Data Lynn rce(s) Supporting Document(s) Progress Note [facility] TOFLId4zHcIEGrKv11/APOdgBYQrn6VcQZjzJMo6FIuxVZGlD4EuJAJ5mP8rGQR7PUyRWePgTjNgQaSp lbm [file] ICAgICAgICAgICAgICAgICAgICAgICAgICAgICAgIC AgICAgICAgICAgICAgICAgICAgICAgICAgICAgICAgDQogICAgICAgICAgICAgICAgICAgICAgICAgIC AgICAgICAgICAgICAgICAgICAgICAgICAgICAgICAgICAgICAgICAgICAgICAgICAgICAgICAgICAgIC AgICAgICAgICAgICAgDQogICAgICAgICAgICAgICAg ICAgICAgICAgICAgICAgICAgICAgICAgICAgICAgICAgICAgICAgICAgICAgICAgICAgICAgICAgICAg ICAgICAgICAgICAgICAgICAgICAgICAgDQogICAgICAgICAgICAgICAgICAgICAgICAgICAgICAgICAg ICAgICAgICAgICAgICAgICAgICAgICAgICAgICAgIC AgICAgICAgICAgICAgICAgICAgICAgICAgICAgICAgICAgDQogICAgICAgICAgICAgICAgICAgICAgIC AgICAgICAgICAgICAgICAgICAgICAgICAgICAgICAgICAgICAgICAgICAgICAgICAgICAgICAgICAgIC AgICAgICAgICAgICAgICAgDQogICAgICAgICAgICAg ICAgICAgICAgICAgICAgICAgICAgICAgICAgICAgICAgICAgICAgICAgICAgICAgICAgICAgICAgICAg ICAgICAgICAgICAgICAgICAgICAgICAgICAgDQogICAgICAgICAgICAgICAgICAgICAgICAgICAgICAg ICAgICAgICAgICAgICAgICAgICAgICAgICAgICAgIC AgICAgICAgICAgICAgICAgICAgICAgICAgICAgICAgICAgICAgDQogICAgICAgICAgICAgICAgICAgIC AgICAgICAgICAgICAgICAgICAgICAgICAgICAgICAgICAgICAgICAgICAgICAgICAgICAgICAgICAgIC AgICAgICAgICAgICAgICAgICAgDQogICAgICAgICAg ICAgICAgICAgICAgICAgICAgICAgICAgICAgICAgICAgICAgICAgICAgICAgICAgICAgICAgICAgICAg ICAgICAgICAgICAgICAgICAgICAgICAgICAgICAgDQogICAgICAgICAgICAgICAgICAgICAgICAgICAg ICAgICAgICAgICAgICAgICAgICAgICAgICAgICAgIC PfOVSwGAWlVVDuSQBrVHMoQIGjWNQpLBTqUUCjIZDfTSAhCDJqKCWnWGu2L4ljVONbNHNrWN6wAGs3Pm 8+TLvNJvTzAQZ0qsUzoR8AWM7im1IwKQduOSVdu5NeJDg9AV3YHBHtBXcpPU5COBfcpc0ERMBkUHHlqN HQu2oeArMiCSQ8YLLeLdluTI6JYNHcP0svldQyJEXu ATSJHOqkUYFRPWcqLFZYVSXnUSHdXfTiMUgvYU1Cv4WfmYK3OAp+Fw1ZZV4lt2OlBVioBAWiFO1mki8J DBmLCeGvR6BqaiT9RWWbAAYuZz1DIINrCSEruMWaCcLdAMXKSgJkW4FbtK52WHBMHb5+DQplbmRvYmoN QzOaBOXjh4AiUIq3NJ7APUBvHLc4vNHsCTFqQ5Gcb0 PxIh00IQMwHmxjY1WwjMInDaDQws06nwqkHEJwKLNvZe8wLeJiAvLhFOx9MZIbBW2jEGzfMS9NVLG0TR grFYSdXDElL9pAQeKpUYTzRrZjzLqzTD0HDtIhA9ScpaKzwJMzIQBpDTQBRj2+DQplbmRvYmoNCjMzID Xfz9KjEUj6DC8BXWNsHWmkNZ2TMDOjyM2yEHtyOR4N HtMpRGSdZCBKDlVsJ36svZMkYTf6V3YtCeAhRGZkIdnnAUJwHUnpOnKxGJFmZgZqIWluTE7+ID4+DQog VT9LORclujLzFBNkDa4MIAGdPKOlDY0qGGNlHDPdB4Q2sRrqFXZGMvAbF1ypxedgUH8cHDNoM757jAkw ntUoNBWuOUJlHq0YULSeTCK7OAOyfBTaFsYiZTHBDM voOZ8KiVZpTXU2zT0hTJffDEPaBMKaN8fPUdYibJxgWL66aJmnqtXxwKGhDNp+Kk2QYH1mw5LgCYk1ss OkLPvqZKY3YWuvZELmHRSzRGNtSPL6CBG1ZSDRIdVhPCDaZUNtZNawSGGwGZUpid0TTXUlBBVqOYHsTa PzOSUlKWNmJOesNGCpZRFmRsG9RFJwDAVqPH6OUuJf LTWuRGHvOUyoICBtMRMrmg2EFGAoHBNiTLHwSSOkXVFqGFQrBObrGPRwGPN8XoM9IMKwBQWuAJ2KYbWg OCMuLMo7GwFyLXIdZLTtph3VNYTuUIWsWkv1UREnLQRdWZXxGCwmRMUrMAJoKUB2QRExETOxHI0EAdCr AVCeYOYvIoPnOQDgVHVgqo1OGZVhVANxOwdsXYWiDM WmWTClWXvjFDBrLXQtZFLwCTFaRYZvTN6YFwTzQTVpMAV2RsKfIFAvFZNdvg4EYRUnLZLmZSK2WeJtNN LjMRBpYEtvIRIbJDC0FnQmJUIsTQIqDU7LHqFrQGRuFUYxFRjjPWWlFHVcup9JHKWfPHZkJDEkEJIzJN NpYBDzTJkgYWOhUZJ6FRj0IBTuQXVaTS6DTkOkIWFu CnmnFkpiNBKdVIWbcw7WMNBvOPUaMeO9VTQgJJEiGBVnZFgqXCZbSRE1ZPQiBXJfLEOmFE9BCyOcINGp Zgv8XTEaGPAePQUcob2IKDCaXJPbMwk0FVTtLKTcSCQtXDnlPTNzJZM6DYZlIZRhONFgWA2EBbEfUIHz UheeGDCzKBXsMPYxml8VXOOdYLOqMGM8XCEdZKQxYL LpSJvqNYVpUEGfVrQ6GGWxHIMuJP2KOiHfAMJpNjH3HHJuVMUlHJEupd0HSWLfHXBmEZB5RRFeZWIbUU IoOEhnVZJbFJNcMWQ2VIMvDEHuBL7FSpJuKWWcGdK4WwJzCDFiDOJnzq9CVCTtRHGeIdK1LbUwRGPmOW CjFMmnFMHtRSWqNws0KTJhZMWtUC7HYiFkHPorPICR Qbm9PEzsJ0h2FFNeIH3EW1Blc1KeQyWnVULTSJymSN8uozYkTAQzUx4UV5cLVkmmKjYiOABrZQFeKcUx Mhb8IccxPGw4FfOkKZfdCjH1CW1aBBYiIFXiIRWjY6IlDZI4WppnLAC1HlOqGSEwHQXqJEU3QrSsYI8L Lo0QFnG2VDE0lUJoTb3RWlT0RyTWIiSyYZ6SQAg= ID Date Data Source [id number] 03/31/2020 08:26:34 AM [facility] Name Value Range Interpretation Code Description Data Lynn rce(s) Supporting Document(s) Leukocytes [#/volume] in Blood by Automated count 10.1 10*3/uL 4-10 [facility] Erythrocytes [#/volume] in Blood by Automated count 3.12 10*6/uL 4.1- 5.3 [facility] Hemoglobin [Mass/volume] in Blood 11.0 g/dL 11.5-15.5 [facility] Hematocrit [Volume Fraction] of Blood by Automated count 33.2 % 3 6-45 [facility] Erythrocyte mean corpuscular volume [Entitic volume] b y Automated count 106.3 fL 80-96 [facility] Erythrocyte mean corpuscular hemoglobin [Entitic mass] by Automated count 35.3 pg 27-33 [facility] Erythrocyte mean corpuscular hemoglobin concentration [Mass/volume] by [facility] 33.2 g[facility]0-[facility] width [Ratio] by Automated count 16.4 % 11.5-14.5 [facility] Platelets [#/volume] in Blood by Automated count 169 10*3/uL 150-400 [facility] Differential cell count method - Blood [facility] Neutrophils/100 leukocytes in Blood by Automated count 82 % [facility] Lymphocytes/100 leukocytes in Blood by Automated count 10 % [facility] Monocytes/100 leukocytes in Blood by Automated count 8 % [facility] Eosinophils/100 leukocytes in Blood by Automated count 0 % [facility] Basophils/100 leukocytes in Blood by Automated count 0 % [facility] Neutrophils [#/volume] in Blood by Automated count 8.26 10*3/uL 1.8-7 .0 [facility] Lymphocytes [#/volume] in Blood by Automated count 0.97 10*3/uL 1.2-4 .0 [facility] Monocytes [#/volume] in Blood by Automated count 0.78 10*3/uL 0-0.8 [facility] Eosinophils [#/volume] in Blood by Automated count 0.01 10*3/uL 0-0.5 [facility] Basophils [#/volume] in Blood by Automated count 0.04 10*3/uL 0-0.2 [facility] Nucleated erythrocytes/100 leukocytes [Ratio] in Blood by Automated count 0 /100{WBCs} 0-0 [facility] ID Date Data Source [id number] 03/31/2020 08:54:32 AM [facility] Name Value Range Interpretation Code Description Data Lynn rce(s) Supporting Document(s) Albumin [Mass/volume] in Serum or Plasma by Bromocresol green (BCG) dye binding method 3.8 g/dL 3.5-5.2 [facility] Bilirubin.total [Mass/volume] in Serum or Plasma 0.3 mg/dL <1.2 [facility] Calcium [Mass/volume] in Serum or Plasma 10.8 mg/dL 8.6-10.0 [facility] Chloride [Moles/volume] in Serum or Plasma 101 mmol/L 98-107 [facility] Creatinine [Mass/volume] in Serum or Plasma 1.20 mg/dL 0.50-0.90 [facility] Glucose [Mass/volume] in Serum or Plasma 147 mg/dL 70-140 [facility] Alkaline phosphatase [Enzymatic activity/volume] in Serum or Plasma 127 U/L 35-104 [facility] Potassium [Moles/volume] in Serum or Plasma 3.8 mmol/L 3.4-5.1 [facility] Protein [Mass/volume] in Serum or Plasma 6.3 g/dL 6.4-8.3 [facility] Sodium [Moles/volume] in Serum or Plasma 139 mmol/L 136-145 [facility] Aspartate aminotransferase [Enzymatic activity/volume] in Serum or Plasma 45 U/L <32 [facility] Urea nitrogen [Mass/volume] in Serum or Plasma 10 mg/dL 6-20 [facility] Osmolality of Serum or Plasma by calculation 289 mosm/kg 275-300 [facility] Creatinine/Urea nitrogen [Mass Ratio] in Serum or Plasma 8 [facility] Bicarbonate [Moles/volume] in Serum 25 mmol/L 22-29 [facility] Alanine aminotransferase [Enzymatic activity/volume] in Seru m or Plasma 34 U/L <33 [facility] Anion gap 3 in Serum or Plasma 14 mmol/L 8-15 [facility] Glomerular filtration rate/1.73 sq M pre dicted among non-blacks [Volume Rate/Area] in Serum or Plasma by Creatinine-based formula (MDRD) 51 mL/min/1.73m2 >60 [facility] Glomerular filtration rate/1.73 sq M pre dicted among blacks [Volume Rate/Area] in Serum or Plasma by Creatinine-based formula (MDRD) 59 mL/min/1.73m2 >60 [facility] ID Date Data Source [id number] 03/31/2020 08:54:32 AM [facility] Name Value Range Interpretation Code Description Data Lynn rce(s) Supporting Document(s) Magnesium [Mass/volume] in Serum or Plasma 1.5 mg/dL 1.6-2.6 [facility] ID Date Data Source [id number] 03/26/2020 05:25:13 PM [facility] CT THORAX WITH CONTRAST [id number] RESUL TInterpreted by:Hawk Edmondson MBBSINDICATION: Small cell [...] rce(s) Supporting Document(s) ID Date Data Source [id number] 03/24/2020 06:40:41 PM [facility] CT ABDOMEN PELVIS WITH CONTRAST [id number] AL RESULTInterpreted by:Jorge Alberto Cornelius, MDPROCEDURE INFORMATION: [...] (IV); COMPARISON: CT ABDOMEN PELVIS WITH CONTRAST [id number] 01/12/2020 11:34 AM FINDINGS: Heart: There is [...] rce(s) Supporting Document(s) ID Date Data Source [id number] 03/24/2020 03:01:37 PM [facility] Name Value Range Interpretation Code Description Data Lynn rce(s) Supporting Document(s) Creatinine [Mass/volume] in Blood 1.2 mg/dL 0.50-0.90 [facility] ID Date Data Source [id number] 03/17/2020 12:53:42 PM [facility] Name Value Range Interpretation Code Description Data Lynn rce(s) Supporting Document(s) Progress Note [facility] OBXYHc2bHyQODhYi45/PNEbaAJIua2UkMKhkOQj2TPuyOEZhI4IePZT0sA7oQAG1XImFBwJkIrYrHNXj [facility] [file] DQogICAgICAgICAgICAgICAgICAgICAgICAgICAgIC AgICAgICAgICAgICAgICAgICAgICAgICAgICAgICAgICAgICAgICAgICAgICAgICAgICAgICAgICAgIC AgICAgICAgICAgDQogICAgICAgICAgICAgICAgICAgICAgICAgICAgICAgICAgICAgICAgICAgICAgIC AgICAgICAgICAgICAgICAgICAgICAgICAgICAgICAg ICAgICAgICAgICAgICAgICAgICAgDQogICAgICAgICAgICAgICAgICAgICAgICAgICAgICAgICAgICAg ICAgICAgICAgICAgICAgICAgICAgICAgICAgICAgICAgICAgICAgICAgICAgICAgICAgICAgICAgICAg ICAgDQogICAgICAgICAgICAgICAgICAgICAgICAgIC AgICAgICAgICAgICAgICAgICAgICAgICAgICAgICAgICAgICAgICAgICAgICAgICAgICAgICAgICAgIC AgICAgICAgICAgICAgDQogICAgICAgICAgICAgICAgICAgICAgICAgICAgICAgICAgICAgICAgICAgIC AgICAgICAgICAgICAgICAgICAgICAgICAgICAgICAg ICAgICAgICAgICAgICAgICAgICAgICAgDQogICAgICAgICAgICAgICAgICAgICAgICAgICAgICAgICAg ICAgICAgICAgICAgICAgICAgICAgICAgICAgICAgICAgICAgICAgICAgICAgICAgICAgICAgICAgICAg ICAgICAgDQogICAgICAgICAgICAgICAgICAgICAgIC AgICAgICAgICAgICAgICAgICAgICAgICAgICAgICAgICAgICAgICAgICAgICAgICAgICAgICAgICAgIC AgICAgICAgICAgICAgICAgDQogICAgICAgICAgICAgICAgICAgICAgICAgICAgICAgICAgICAgICAgIC AgICAgICAgICAgICAgICAgICAgICAgICAgICAgICAg ICAgICAgICAgICAgICAgICAgICAgICAgICAgDQogICAgICAgICAgICAgICAgICAgICAgICAgICAgICAg ICAgICAgICAgICAgICAgICAgICAgICAgICAgICAgICAgICAgICAgICAgICAgICAgICAgICAgICAgICAg ICAgICAgICAgDQogICAgICAgICAgICAgICAgICAgIC AgICAgICAgICAgICAgICAgICAgICAgICAgICAgICAgICAgICAgICAgICAgICAgICAgICAgICAgICAgIC NtYJGaFXKmHRLxFTCnJXPhYVFlPCc4P3wuMGVeHLMuIY8eDLu9An9+CRgPYpTxBEX0nvXvmL9YJF9oq6 ImYFarOCGwz1LfQYy1DV8YOKXiSJqtWV3TGKrtop6K MELqNZAxlDBCy0hvPnWhVEX1IQHdSlhcKZ5EPPYzU3ernrTpTZHbIJPHXAhlGTKDKV3RSgXgU4DrzD97 IDINCj4+VDnnqlFjXdgCUvM3JMEai9LfNIo1RX9BTROsFgeuu9EgVNleGUFEKYyhIN2PMTL1KZU0BMGz Nk8OPFHsS049odFlSI1RHe2NHvYsWD5uuu0IAYgfCX OcAouKFpq2WEqwQF0QoSPbSMkEfd5qwiZzhvMRh0FwueDtlGTTZFvnFDDgH3HbtNidCr4rFCQuLB3iBS 9lWWAgJAS5CaP3VSDSVZ4MEDWxEPNnsEToUNVsDBQOBK6ZNMvpANY7XODxvaAzeCPmIKcaPW9OFXGvmi QgMTYgMCBSDQo+Rt8XRD0ep0XtFArrTFFeME4har2P OOdYJmLgE7Z3zAFwI5Y2WXjfWo9YOGBiXNLbOWErDBYHJNdnCM5OQH6rndA0KJ6IaFHuRBUrKQBbzTMg ETv5T14apSJdJPvoMQ1BIZM+Antelmo+Li4XIAMsAOFuLTQdAaCuCKBPYoEcE4RjS1GXh3UnI4NzIY58zJql gmMbSGcjEG4JVB7jCYBuXTBHKI5NgVJhmB6uaqPyLn IkTFZUFaLvO14ltFIxLEPaNNS5ORAmKm4RLVRqS0VbaeCbmZhrjoFwBTFiRMKCRG0LWCirslMxaVZuxY juBY55sHtxWH3KYt0STuIoHQ7hmf2NkQHmIa6WARYoJZ3USDKgQCIwSKYqLMR9RERdJvNxZTrcGBFmTJ OzZWP4HJVyTYMtVL2XLfScPRKzQUk6JMQwNOZgDZNe fc1FRJXxDXLmBUG8TNJdOAHkGJPaPNaaYWJoXDFqXCW4YQTbYZLkDN9QLyDxAAPwTOQrBtlhQWKaBJUw do0UYFTxRDQpAgL0YSPcWOGmVZJkPLjnMBGnCDZ6VnXdMYVjEQUfEA1KZgMtJNPhOPH1ELUpPPBeCFCh kj2SWWYlCOWzCojyYzEdMCFnWGVtCFhbBOPvPEW6KD y4HZXfRMSqJB3VFhRtZBCvQHkyPWTqWZTgJGWhgc6WGFTmEKBkYQVfGJVsTVBiTBXxBEqqDUUbUYG4Fq TeVKXfSTDiMU1FGwUgGPDcLQx3SnfmWEErCYDbia0IDALtZSRqMQzuHSZfAWLlUFWmPJxfYGLwWQTeYc o0MNAwQXItYM5YQjBlLMOyOEV3LZahWAFiKAUbjt0K ROQzPMCwZEX1KTWsBUEmCBQvKZe5hhRjyBMfBHu2WM6MG7XvnlOpRWmOSl4Lc727WWT9XGNkLl1LY1sx Zv3bDTVcUQYZBe1DSEs0IHqlAYFnJSbeN8ReZLWlBHy6HaJ0EsHrTYKeHFJ1WXA+CZorMIA6AIYiD4Wq TsL7UYCcKhYyQYfeJbI6RuD4DNL1Gs1eZSIKYd9+OMwxhDXpvXjrWKZZBnMlMLJ5JPyuIWTGJx4R ID Date Data Source [id number] 03/17/2020 12:46:05 PM [facility] Name Value Range Interpretation Code Description Data Lynn rce(s) Supporting Document(s) Operative Note [facility] YDTUZr7xYlGABpXy91/YSVocEPSyr7SaVRpcHOc9NXrbPIHlQ4BdMHM5eS7uMZJ4IJmKMnSgMiYrMLLx lbm [file] YqPKnVYmBkFI5FCBa= ID Date Data Source [id number] 03/17/2020 11:36:29 AM [facility] Name Value Range Interpretation Code Description Data Lynn rce(s) Supporting Document(s) Glucose [Mass/volume] in Capillary blood by Glucometer 108 mg/dL 70- 140 [facility] ID Date Data Source [id number] 03/17/2020 09:30:26 AM [facility] Name Value Range Interpretation Code Description Data Lynn rce(s) Supporting Document(s) [facility] QEAICv5sPpVBKzRn55/UFRwaUZQwo2JdVXxbIYa8NFrvBXFhV3DaWJW9aD5oIDG5OHmIMdXhVxKrTSWl [facility] [file] RjAgMTAgMCBSDQogICAgICAvRjEgMTMgMCBSDQogIC ErPAOzBbOjBBMaTIRQUx2BMvTiBIUaPT2wxpWyeLM5GGN+Iv9YCMEoQU8AtWDTY5LymTQvUNdnR5TGIE 2SWCX5NK5SvIGmQF1ZwAOVI0WkjBOvBm9bOBOwf3QdTg7wL5FKOUIJLEOfGKrlJEjkEQEyYFw8G7C4YS TgR0BOG096dVVixKh0Hj3uA0ZXOZbXWjPvEPajMNxv VHCrSNr7N8C7UFOcO2LXA6AeYqDrnnOjT5F+ZoNxJNGHOV0NNZZVSZt9S6I2nGDdE6P5pLzNeFD3MJ5A HO2NjAYpeLUbu44+FzSUEuSgEIZpY5GRWGCFXqMcNPgeMDmkWCVaOOw6A8D0BSNvC6VSI6kdC2w1XY1+ JnEGXsYvCXMjIf7QXvUhHl0NLqZqGX2zzk1NILsxWB LpGxuONwu1E6tgfcu0iKMlIbC2N2H5UwN5vUIdBH7TN1M8wTJcOPT4SONcuKO+It6Ee3SzNUJsNHc6P0 ixCSFaMHNlBkNboU12B++0dqdczYE7T3v4NMOCzAWxdIfQmxRwP0wLFJH8j3E5QYy/Xi4NVFQ7kZm6vZ SdCRJlRAx6sK6paFz7RjVuYO68PTZnQAuixJ6tVqo7 A4Dbe8MaZk1gCe9vzRDlVw6QUsGkAWH2psJzAdQXGcP0qWtsqiwsQGV0E0k2kTY3Rp00z4zyzdTuz1Bw OkP8VCizNSMfRfXbdpSxJCU8lkSagU1xdyJnZh7CBJBcVJfginPaBzDSKw2FEtZaIZ86GrncfC7fpXA+ DQogICAgICAgICAgICAgICAgICAgICAgICAgICAgIC AgICAgICAgICAgICAgICAgICAgICAgICAgICAgICAgICAgICAgICAgICAgICAgICAgICAgICAgICAgIC AgICAgICAgICAgDQogICAgICAgICAgICAgICAgICAgICAgICAgICAgICAgICAgICAgICAgICAgICAgIC AgICAgICAgICAgICAgICAgICAgICAgICAgICAgICAg ICAgICAgICAgICAgICAgICAgICAgDQogICAgICAgICAgICAgICAgICAgICAgICAgICAgICAgICAgICAg ICAgICAgICAgICAgICAgICAgICAgICAgICAgICAgICAgICAgICAgICAgICAgICAgICAgICAgICAgICAg ICAgDQogICAgICAgICAgICAgICAgICAgICAgICAgIC AgICAgICAgICAgICAgICAgICAgICAgICAgICAgICAgICAgICAgICAgICAgICAgICAgICAgICAgICAgIC AgICAgICAgICAgICAgDQogICAgICAgICAgICAgICAgICAgICAgICAgICAgICAgICAgICAgICAgICAgIC AgICAgICAgICAgICAgICAgICAgICAgICAgICAgICAg ICAgICAgICAgICAgICAgICAgICAgICAgDQogICAgICAgICAgICAgICAgICAgICAgICAgICAgICAgICAg ICAgICAgICAgICAgICAgICAgICAgICAgICAgICAgICAgICAgICAgICAgICAgICAgICAgICAgICAgICAg ICAgICAgDQogICAgICAgICAgICAgICAgICAgICAgIC AgICAgICAgICAgICAgICAgICAgICAgICAgICAgICAgICAgICAgICAgICAgICAgICAgICAgICAgICAgIC AgICAgICAgICAgICAgICAgDQogICAgICAgICAgICAgICAgICAgICAgICAgICAgICAgICAgICAgICAgIC AgICAgICAgICAgICAgICAgICAgICAgICAgICAgICAg ICAgICAgICAgICAgICAgICAgICAgICAgICAgDQogICAgICAgICAgICAgICAgICAgICAgICAgICAgICAg ICAgICAgICAgICAgICAgICAgICAgICAgICAgICAgICAgICAgICAgICAgICAgICAgICAgICAgICAgICAg ICAgICAgICAgDQogICAgICAgICAgICAgICAgICAgIC AgICAgICAgICAgICAgICAgICAgICAgICAgICAgICAgICAgICAgICAgICAgICAgICAgICAgICAgICAgIC KyANUrJHCaLWKyNHQkQKHdVIXnTPk9E9tqLKNiCCZlGV6cHQv1Bb5+MOzDGpKuOSC6ejSklD5VFE6mr0 VdENueEHKfv8RwWHz2WX5KKPGoQEuqKS0GGNngbi5J KGUtZCLvhQVYm8jxBfVoTHQ6WEAyMiewNT9FJKHzV9dkxtHsNYLdTWPTIThkRBGUUQ0CAmKtJ4FqbV04 IDINCj4+OUuzolYjSdzUKyZ4NYTtc5RyIDr4JM3VFMXoRlqjd8UgPwQfXFZUWRhoWB9ORPK7CHDcTHIp Jr6TTOWbC451huAxEU0OBw5ODoZeDM6pzy3BQlHoUC VkJzxMHpj6MNjpAL1RwBBhQCcJmPFsODZquyKxWc68AERjxYIOXFHxoA0uKODBZQXdfFmnMQMwCQShWW 9lJN8kWMOlRNO8JeN3AZWYNB0GRRXzRTCdmJLkXGCiZBPLHJ0OMLxgBQA6UNRsesTcvCXsDEigGF1NIJ JlbnQgMTkgMCBSDQo+Mb8QSO3rg8JtRYbtKSVvGM1k ok3OEAcJCiRjF4S3wPWwE7X6MKbsWi8LKPVwYQFlEVcoNUFCCWzrMB1ROQ5tghM8ZP5VjWXtJEAyIIDl wKVbRVj5W04hzJUvKWvoNB5AYWX+Antelmo+Tt8WHFVuKSRjPAAvAdCbOKYPRfBjQ0XbL2TQh6WeN2DfTQ44 dKdughUzVGvxGG9YTV4gGPFgWALGCE5GwCMkfW6zan ZjZOAzPXAHXaGeY57alEJqDBQlOFU1KLJxOr0APLHuF4JcxcHmmKgsolPvZXFtDSJZDE7SWBqihaAtjB IbaEiiCS66uGnzVI7RRz1AOqIpCH3gke3MrAHsTl4HFNQrNl6OFMUyFKFwYYOkKVM1IZSsLwNyVArnYX QwBLIvJNU4QGUmBGNcME7HIhSjJUHpJCxaDBKjHOFg OBMesn0SOSGlRJQeBKa9BCZrLEUaNYElLPuaZQQcOSBaJIR7CCTmGWKgUI5KQxIbLERgUNUkUQMzDIVn WKOhdb3WMSFbFFLsCiN2WdDfGIJwXKOwYXjeRHZcFZZ8SNd8KKLlBVQbNA9KFaNhKOUpQRFrXBNfVSMe XWWlql5BMZJpFPGeKvV6DRXbAUKuCLZnZLyiTVBuIY A2KmB7JHReLANcHA5WMbApGBLaDKE5SmeySRFeZRJzux4FCAQjKRTgZrU6GyAmDIRiWPAcYRvxBJOgOG X7VEd4BYAtMBKuTT3UIiBlWNTzJHl9TkcsEMMvPXDalq8DETZeVBAtCWvkFwBaUUUbIHKfSWdbSDYtTV E5TFA7QLLfKZBxYN0VFzMsUFBuVDldPIgqNTCyPFFx uu4ICBIgJYSeGCU7RSElHWKrQTJpLIypCQAuERRlOCy2LMAqCUZtXY7AMuRcEDQbJIAyTKFtGCPbGLRq ha9QWCWlFZMaBPOrGJWxXKVfLIXoPBg0ruMfeNWhAZp8ST6KD5LrerMtQfJAWt3Yo084YGGeABZqPb6F Q8cnQc4mBNWnXFMAGp6DHQl1MMRtZVE8QIDrCzHpPi FeACW7ALHcQuXtJRI2EcPbEQx+IBo3P4X3RpkvOSHnVpKxYTS6RVz3MEG5INWkXkxeH5R6US7qEUSNXf 4+RQqvzDRyvKhsBAGVWdEiJOM2YPkoJHBLPf5D ID Date Data Source [id number] 03/17/2020 09:06:07 AM [facility] MR BRAIN WITH CONTRAST [id number] RESULT Interpreted by:Yuliana Perez MDEXAMINATION: MR BRAIN WITH CONTRAST [id number]: 54 year old female with 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 The images were acquired for use with the [employer]eePear[employer] neuronavigational system.FINDINGS/IMPRESSION: A stereotactic headframe for use [...] rce(s) Supporting Document(s) ID Date Data Source [id number] 03/17/2020 08:02:54 AM [facility] Name Value Range Interpretation Code Description Data Lynn rce(s) Supporting Document(s) History and Physical [facility] UQQDJp3qTxGTFfPt83/KPNbdZVPlw0UbVSssYYx8MNmmRQUfB8FmSKW4dX4iTNN3OJnYMqMaJoCgDTQc [facility] [file] AgICAgICAgICAgICAgICAgICAgICAgICAgICAgICAgICAgICAgICAgICAgICAgICAgICAgICAgICAgIC PmQWGsNHMoCTRiOQUkXT3ISQVoTSJbWMQnGNDyPXRq ICAgICAgICAgICAgICAgICAgICAgICAgICAgICAgICAgICAgICAgICAgICAgICAgICAgICAgICAgICAg KATpVBGqMSWuTMDmVDYyCVMtGDWjGNUsVW3FHSOeJNPnKUQdWWKjLAFtACZdBYNyFFUeDBLaADImFXKm ICAgICAgICAgICAgICAgICAgICAgICAgICAgICAgIC KxFKPeMEHdDDVnMAUzWDPoCESfOJFdWZHdOCOtGKTtVJEgRT4ENUNcQBBuMAMqRCJbTHGqAVQtCKTsOU AgICAgICAgICAgICAgICAgICAgICAgICAgICAgICAgICAgICAgICAgICAgICAgICAgICAgICAgICAgIC RlNXJyFXFlIJNhTFTgABGeOE7TFEOlPCHvEHBhDSEv ICAgICAgICAgICAgICAgICAgICAgICAgICAgICAgICAgICAgICAgICAgICAgICAgICAgICAgICAgICAg KIEwYSZoPTJpQLMzTYEiGBHnPBNfDRZkTHPcCY8AKRDmYCUjVXIyEBYwUZMvPFEsQRVzENSiXKKjXTAc ICAgICAgICAgICAgICAgICAgICAgICAgICAgICAgIC WuWOSsGKUfBFGjQBRtZYRqBRFxFEYrBZCyGRZsFCQlAWRoNOIiYT4FHZKnESLfYQYqUYFzFOYwLHAmEN AgICAgICAgICAgICAgICAgICAgICAgICAgICAgICAgICAgICAgICAgICAgICAgICAgICAgICAgICAgIC CqDNRyHEIjDGZxXSQqXBRiLYZlXX7DMRTiNBYfRCGj ICAgICAgICAgICAgICAgICAgICAgICAgICAgICAgICAgICAgICAgICAgICAgICAgICAgICAgICAgICAg HWRoUCLbIDAtQAQeBCLbIVNxWDYsCQRkDULwVZFhAP4MQWTwJUGrSDCtMFRxGMZuQXOiJXHhTKBhRJMu ICAgICAgICAgICAgICAgICAgICAgICAgICAgICAgIC LvILFwGWLoXJTeMXRmJTAjICQoVVEzGHAeDOLeLPUrKXDyPSXyYDQfJO4ZIDXcFUHdUYTjYWGlYDDrPM AgICAgICAgICAgICAgICAgICAgICAgICAgICAgICAgICAgICAgICAgICAgICAgICAgICAgICAgICAgIC HrLWNpSIZkDJRcQAAhJNKiDCIvAFFuSE0WAX18sVTu c3G9EZBiXK9afgl/Xd5NQNuimjZwjHNwUC4OHfIiMA6ifl3OIcFhXO0bkz9UBDbVDnGsX9U5rFFbRXVu HXTCAaCqD09lICudSe07KKroOAKhNrGrXQn5Bf1JRmGlX1ajIZWoQaN6ZSSvSpD7FQZnIhI6XMGaWxLa JIviXD5Sf0HcuOXaATu+Wc4WIW7fc0PhMEhkYCJsBM 4oog5KBEqDMwPhD6DvxeL1KWXgBKGtZp5HZYQuERUtpQPgXUXaRYCKAlSeU3KrcW53APZRIy9+DQplbm NzVqoUYnAnBBYbm5UtVAt4PP3TVFFwSVt8hYFgOOLLNWK4FLsfQJD2tSHUTHMiWCU6BIPGNUZrlYJhSn EgXjLwVbLnMWo7YRXfZS6yNQadXN2RGKM7RLlvQMGc SPJjD5vUWiAeKYZiPjSzbFgwUD4UFjOoN3JnxxObgRAbZXDhTFNQCh2+ENfjbaQoDryIUpIpSSRnq0Lg OUa8FC7APGYbYJlbYV9PUURgtX4gBZvsDG8XBsYbBxLqCOXEMrXeB88teRNfOCv4Z9LwSgQnYDYjKsfv ZXMgPDwvTmFtZXMgWyBdDQogID4+ID4+XAvaWR8CSP lpglGeRUKhHc1LRWAnDJPzLA4dDBSuIPLnP0K2iBeaTDYGLaHrJ0azldlvIA0kSJUkP815mKhnpgYpOX R3NBEhHb6YHRTgBPO9XWJhsPYgUlmrJCEJNZtlSD4RvDShEOG2mX6tMGplXHZvYETjC7oGKyIkuTdlWU 51bGwgbnVsbCBdDQo+Ko5XYD5nz7HqGLh2enHcOHqr WUVvEOiiVDHnXOAkBHWkUBT4WDB7QYEUGvPdTSGwOQFoGMegRXNuWETvtk5VQHDuYWCyJgl9PjMcGYDq MSUuVLhsBRXiRHK9MCH5ZCYnKBHpBM6GRzIfDPNqUEZjEDaiZWBwYIEswq3PUBRaJHDzXnIwArKaIPFb TYMvYDfpFYOeMGUqXXV9YPAyFCDjAA1HVjGmGMKpYJ Z6VxOcCAWrRVPmbq9HSNTdIITwEkuyBMRgKGHsQSYvCXrpYRAnWKQ2ZCB0JMWgIVCgHU6YClLbXKHsHO gfGEhxQUXhQEFhou2HVNFtAYBjIFB2DMAeRSTzZDLsRCyzXOZbKCEyMgP6SQSbUQLiED8EGmYdXQOyFK U8NZpzLXZgRGMfzd0USJIeVAZpKYIjJSSwDRFrLJWc FYreTZCgTOObBqBnTIFnKNBvBG1NIiSwCSCoBKD0BDtdKXZgGBLdck4UPGGkKRBaYjj2DIEfOKPvPGNg XYtbVWMyDRRnNUS2FEDqUBHyVC5GTaToRUNlNMYxDddeRCQjXACjpz1EYVVpIHOcCJDzDiZsVWTkBCHn LIhrMVAxNSW5EREpWYKcPURnTL6QLzJaXYGdLcHsKE MzCQGqFEIbdl3PFCLfEBViLRG4OLZmEQNaTHNnZIpcBGBtAMF7QAY2HYVxNRTfHL7EOlMlZZYsYsObEg kqRXPzXIVbjy8DPRQsJERjBwZ5ZgBwYXFpCSHhTNpvHHXfNGC9QgI1GIOxJSZcGS3IKwVdJSVvYkxwTu swKFKxNCNilk3TCCLtBFUsFZQaCYQnXJIvBUFlNNst UGZaWYY4Uls9WUGyXMUhMK3JRiLdFTMgCiz1CpflRSUkRSXeka9BnTJaoWgzim3XYXvJUe0SoSvhVDZj PYgdWa1tsCCbKKDdXEQMCj3JeePcLEFrTWQLPQpdDCQsDTC4HHAxEWMiTBdpZzXsJmZbYxH9KyIwEBGn LtV6JAL0DjZ6BjqkLwGiXaZjV6YgUOHkWKSfMLucHe N6NURyQCe8MNV+YP6uFPs+Rj8Ib4AbkxR8mkZbERzjMOZ8IN5CGXTMQ9ONRe== ID Date Data Source [id number] 03/17/2020 06:46:16 AM EST [facility] Name Value Range Interpretation Code Description Data Lynn rce(s) Supporting Document(s) Glucose [Mass/volume] in Capillary blood by Glucometer 123 mg/dL 70- 140 [facility] ID Date Data Source [id number] 03/12/2020 10:00:00 AM EST [facility] Name Value Range Interpretation Code Description Data Lynn rce(s) Supporting Document(s) SARS coronavirus 2 RNA Not Detected [facility] This lab was ordered by [facility] and reported by [facility]. ID Date Data Source [id number] 03/09/2020 03:03:19 PM EST [facility] Name Value Range Interpretation Code Description Data Lynn rce(s) Supporting Document(s) Progress Note [facility] IAWHWc9lOwMBDtMj79/VPAcjZLLmo3HrDPejBJi4LSguDPUsC8KtTFU6eZ9eEBR7CPdVMjIeFdUwEXZw lbm [file] AgICAgICAgICAgICAgICAgICAgICAgICAgICAgICAg ICAgICAgICAgICAgICAgICAgICAgICAgICAgICAgICAgICAgICANCiAgICAgICAgICAgICAgICAgICAg ICAgICAgICAgICAgICAgICAgICAgICAgICAgICAgICAgICAgICAgICAgICAgICAgICAgICAgICAgICAg ICAgICAgICAgICAgICAgICAgICANCiAgICAgICAgIC AgICAgICAgICAgICAgICAgICAgICAgICAgICAgICAgICAgICAgICAgICAgICAgICAgICAgICAgICAgIC AgICAgICAgICAgICAgICAgICAgICAgICAgICAgICANCiAgICAgICAgICAgICAgICAgICAgICAgICAgIC AgICAgICAgICAgICAgICAgICAgICAgICAgICAgICAg ICAgICAgICAgICAgICAgICAgICAgICAgICAgICAgICAgICAgICAgICANCiAgICAgICAgICAgICAgICAg ICAgICAgICAgICAgICAgICAgICAgICAgICAgICAgICAgICAgICAgICAgICAgICAgICAgICAgICAgICAg ICAgICAgICAgICAgICAgICAgICAgICANCiAgICAgIC AgICAgICAgICAgICAgICAgICAgICAgICAgICAgICAgICAgICAgICAgICAgICAgICAgICAgICAgICAgIC AgICAgICAgICAgICAgICAgICAgICAgICAgICAgICAgICANCiAgICAgICAgICAgICAgICAgICAgICAgIC AgICAgICAgICAgICAgICAgICAgICAgICAgICAgICAg ICAgICAgICAgICAgICAgICAgICAgICAgICAgICAgICAgICAgICAgICAgICANCiAgICAgICAgICAgICAg ICAgICAgICAgICAgICAgICAgICAgICAgICAgICAgICAgICAgICAgICAgICAgICAgICAgICAgICAgICAg ICAgICAgICAgICAgICAgICAgICAgICAgICANCiAgIC AgICAgICAgICAgICAgICAgICAgICAgICAgICAgICAgICAgICAgICAgICAgICAgICAgICAgICAgICAgIC AgICAgICAgICAgICAgICAgICAgICAgICAgICAgICAgICAgICANCiAgICAgICAgICAgICAgICAgICAgIC AgICAgICAgICAgICAgICAgICAgICAgICAgICAgICAg ICAgICAgICAgICAgICAgICAgICAgICAgICAgICAgICAgICAgICAgICAgICAgICANCjw/ySNrW6yprCHg umC3K2orQx2BZr0JXB8mq3ZxWSHeGRtlvfBsDrpTEuYrDPUdAnkJEdk0NTeqXS3CjXHyA3LnI7CsLOoz TW7JBJUvZEXmoVOjSLSpQLRmScU9ZWKfURdnFW8JgS QkLOanCEXvNEVrXjUpSVQyFIDnGPKzRR8BIGZoY425kuEnLb4TJg2IYlYxNC4uzl3XFfWcYTBlJzyOCz x7CAjfYF2QdRPvoRCcPeDbOZCIXfPhZ0tky5ZgKqxkXHKHTJlaMV7Be1GrfZYlNYv+Vl1BRB8mi4PiYM wmJnDsSY7znz2OOJvIFkRsL4UulCosMLJjf7buSVZo FX6ttUFpHHG7WTPeyLFcpWDDJMLrzZJjsELpPrwqVYHsYGRoYA7lKl5oOUZtOAUpCsI6QGEKYN0RQEGf RLHvdQYbHFMtBLFKZC3FTAyoWZL5ZZLeugEpgSHtZQfpYR6MZMWfibFoIeZbSYOJSPi+Lj5BZE0kq1Vz JHicBZKgBG8oeo1AMTtCTuCkE3K5hZQhA2F1VKbdDv 8DRCQaIAOxLvVxZSMTRKjhFO6XSD5hhqJ4PY0IcQAtQGAzZQJisVYaYZr4Y69luTLiQPsxSC7PISX+Pi A+Ud2OSXXdXQKzLWOaDsIsFOABMgQaL7MmZ1PIk0LrI7LtFO81bPohqgRgUDwxBR1VBF7hENBpLTHYOD 7CnAMaeW3hwyLmWqGxXTSBKkPwL44yhKMwOLLwDTC3 CYNqCk1BCSOwM9UwtuApwLoluiRmYSJfJMCGEF0PKUwodgUmbWCgbHqeAG68oBzfPA1NRs0IZrRnTU6f ky8FsYGgWy1EAVBvHC4EOPYjWVZwOINqWRE3XOJtGhFiHMnfENCfJHTtZJY9NLTgCNXiNH5WKlYnWKXb JbY1LeSeBLBnDSJjlv6GMIOeYLDlOgS5HAFkNIEfOJ IuSIwjJMYlQAZnFVO0NRGgPQYwHK5LBwCxLVQaYNR3VpGwWYFjMJTdgr4TXIAlVHQbTphcXGIdCKQpXQ DrXTarMSTtDKI5VfBoHVXsKGEaLB1LMvCmQUXhVMB9CTdwRZWbWABvzu1ILTZcKWBdCTAvXBJzXRQfSH FfWDbzCITaWGI8GgW9DSAnPOZuTT4XVnOqLYZyCFWz VKjtRSFeLVXjcz8WHEExHQWoEWW0KyXnOMYmACLvWVmqAVAkMBFzFmm4SIWyUAUeMN1KIrMlETCiGVO9 KdjrDEEfRQCquy6PYHHjSPZiZRi8QQLiIYPiCJStHFtsFYNvMMRsVWQ8KUMgGVBkBE5EKsPcARMxIjJp QRJtGBShUMRrhl6VPYTyJLUqXlP1MRMbPFWiFEAvUL knEJHrYKEwPDY5UTFzDCLkFH0POgSjMJBfCwXlBJbmJDDxODCdgt3QUXUcRUSfJGE1GDDeNFZgFNGzBV qnVIFcQJT4LiI8FKFjITXwES0EBhPoFUYgLoJ5QoMpZKGlDCLarb8TGUHlTLEeKUSiNRPxYNEoTGBmQH lzIZMoCNT3WOWaTQAoORSqIL9OZgJnQKCvClv1ApNf NKKqUKJowe7LFTWtJGXoAaP5NsZwSQZoPONaDPbySTEgZZD6Kad3UNCeEOKgLE1HShMeUKrbXRURGvf3 IXqhA2s4VMKwNG5PV1Veu2XwBpnsOPNHRQhoAJ1narNzGPRvGg4KE3kEDtmeRZv8NpGuVGlpPaR1VdDh DXzmDWxyEVN4LPrlIJGzAZ1lMHFxGpkmJrU5ZTXwSu S1OcE4F3ZtPsH0UwwgTNOiCOZ8ChByPT8VWv5SZnA8FNL2eVBdTo7GRyc1ZyhKQcLxZU9VFWj= ID Date Data Source [id number] 03/06/2020 09:56:01 AM [facility] Name Value Range Interpretation Code Description Data Lynn rce(s) Supporting Document(s) Progress Note [facility] LHBIDy7tFbFIWiTz72/YDLwsDWFap1DdTTkcVGn8RJtxHBKbU3DnJJE5pW2eJVL6GOhSUgTmCiUsFCZ2 lbm [file] ICAgICAgICAgICAgICAgICAgICAgICAgICAgICAgICAgICAgICAgICAgICAgICAgICAgICAgICAgICAg ICAgICAgICAgICAgICAgICAgICAgICAgICAgICAgICAgICAgDQogICAgICAgICAgICAgICAgICAgICAg ICAgICAgICAgICAgICAgICAgICAgICAgICAgICAgIC AgICAgICAgICAgICAgICAgICAgICAgICAgICAgICAgICAgICAgICAgICAgICAgDQogICAgICAgICAgIC AgICAgICAgICAgICAgICAgICAgICAgICAgICAgICAgICAgICAgICAgICAgICAgICAgICAgICAgICAgIC AgICAgICAgICAgICAgICAgICAgICAgICAgICAgDQog ICAgICAgICAgICAgICAgICAgICAgICAgICAgICAgICAgICAgICAgICAgICAgICAgICAgICAgICAgICAg ICAgICAgICAgICAgICAgICAgICAgICAgICAgICAgICAgICAgICAgDQogICAgICAgICAgICAgICAgICAg ICAgICAgICAgICAgICAgICAgICAgICAgICAgICAgIC AgICAgICAgICAgICAgICAgICAgICAgICAgICAgICAgICAgICAgICAgICAgICAgICAgDQogICAgICAgIC AgICAgICAgICAgICAgICAgICAgICAgICAgICAgICAgICAgICAgICAgICAgICAgICAgICAgICAgICAgIC AgICAgICAgICAgICAgICAgICAgICAgICAgICAgICAg DQogICAgICAgICAgICAgICAgICAgICAgICAgICAgICAgICAgICAgICAgICAgICAgICAgICAgICAgICAg ICAgICAgICAgICAgICAgICAgICAgICAgICAgICAgICAgICAgICAgICAgDQogICAgICAgICAgICAgICAg ICAgICAgICAgICAgICAgICAgICAgICAgICAgICAgIC AgICAgICAgICAgICAgICAgICAgICAgICAgICAgICAgICAgICAgICAgICAgICAgICAgICAgDQogICAgIC AgICAgICAgICAgICAgICAgICAgICAgICAgICAgICAgICAgICAgICAgICAgICAgICAgICAgICAgICAgIC AgICAgICAgICAgICAgICAgICAgICAgICAgICAgICAg ICAgDQogICAgICAgICAgICAgICAgICAgICAgICAgICAgICAgICAgICAgICAgICAgICAgICAgICAgICAg WBZwLUBmIZRuDUIgGAUjWDAqEAGoOHDeYHJxCJUjBKVjGIStKNKfTVHxMVHqWFc6V2rzTVZmWRSjOC3y QBm2Tw2+BKuWSyCuCKK7hiKacX9QYP7dm0EbXSrzFR Pes6OmRCh2PF0QULJcCPhjSY0SSEsuzj7CSRXzGAFpyCIOi3fmYuJhKAV0URCkGfogRE9PSNJdS7ekod IiTCZhCJZAMAzyMWVYWBxkDRBSOV5WIqRdC1ThnA74SIWPVq7+PMlsijIvHrxQOlU9WNBft0YvPWk9XR 3AODSpZejht5RtVisvKEEYVLwfEZ2WVBZ2MPS8PHSy La9HFRFmH960xpRvWL2VEd4BJaFxVC2edt8TFkiyKBYjWbmMHzu2QBylEX5SeZHgGOsMrn7qdpThiuJS m0AxuhScdCPIKJQhMZOfDMstKE1jJCM3WBOMBYIshKAbMy1aFM1fMULnFSWwJpQ0PDLLBP6BUEEzBQPc zFRvEZIrNXPCEL7BYOvoYKM1BJPzagOjxHQrTOhuPQ 9QYXJlbnQgMjYgMCBSDQo+Hw4QFN2gq2CcRBkjQGCnBT3iwx2ARHqKEhByI1G7aODqT5S3RZfsVz0BCC CjBLDaHdTmSBUGWHwaSJ0DIY5iqhJ2QK1MlLCiHNMgJUJgwUXfSEl7D49sdWCbKRpfLP6KMAH+Antelmo+Pg 5AGQAyRXBnJTUhHvPeIKHMCgVyK6EeG9TSg4YgU4Sr DP32mBffnoQdDIksXO5NSS4kNNUdDWSYXU2ReCBlaF1wyfTnZxXrQOENOcMiR35fgEVoAIZmRRP0CTRv Ha2IHSIlQ0MbawAieIzhwlMyQDBlMENRWF1WFVppqnCazEBwzAtzAC51uVpgJI0KNg2VMmHjIL1xfl5X zCWcQv7STJUaAZ8QXVTeUQAiTRUdGMS0BEPiIrTdOA wlRKBsUZGpYJV5HLXcRMVdMU6MZrEsPLZfGaPjPCUhTBXxVMIacw1RCWGdXHEdINRgIFRoGOIcLURqZE tmADKsRMKkOTH3FWTdPAOyFT6QNoIzMJDtDOQ9IohvRNIaCUVaqz4ZGYAgHUSvFGqxTsRcYNSbDSKcHA xuPPLrGYI9MYL0JSDzXXBqVE3PKdDvXALdPLcsHKTi FXGqQUMvsn6SGSQrUZKcZYltEzWuMNMsMJKdOHxhCLNcFJF5VUC9PKEtOQVhCU1HJzWyVKIwGAY0Qvhn JGHiHKNhrz6XBRHcQUEiADP9KPAbMSNhGTRtTRknHZJjAOEuRvY0OGJcHFUdBJ9IDoGrUHNkVYLyKQWz MTAtEXVqgc4HCUXnSEDaBcBdRCTsUUHrOUJgMLdfUV WgJVQpALo4RPGuUWDzIF6YQcZvOIAjPdEdCwDdBTDfXVJtwd9MSOTqIPSaTVQ8UEUwOTJhNHRcEQmmQV XoZON6RFVrAIXhSONeRK1YMzMiVWRpPwH9ARJgIGHaHVMvis4TRTXoFNKaFGo4TxIhNTYpEIYhTDroON VtWWC4BFu3BOWdKZLeXT5YUeMuFFRoJlVjKBKfFKVk NTMkeg9IEENqWZHsAwK3NFJgXELvJOBvKJajFBYcJJE3Mph4ZQDsPJJdWK7JKgSoHYSsWpyuPwBwTULo VDQstn6IWVJxRMMlLGLwJeUyNNDjJPSoWSrhTLHlUVC3EzT9UAQwRCXdBV4WOoCtPHmzWIQBWiu2BKyy F9i9NSAhFL4NM1Vxd7GcLyhcRJCQVMtnQU8tyoNkRC XgRk9RD1dCPadkRMYhAFGzMCHvRpFjIKF2MCX8Peo5XuJxPKG0VGWvZP8oPCCeUjLnVzTmGMCbHKZmJK R9WnutRqEsQZG6LKPiQUU9IvDwXQ5QSq8JJqS1QWM4mBRgSx4BNas7MMNJVrFfAB6MVCf= ID Date Data Source [id number] 02/25/2020 10:18:13 AM [facility] MR LUMBAR SPINE WITHOUT CONTRAST [id number] NAL RESULTInterpreted by:Elfego Lopez MDEXAM: LUMBAR SPINE [...] rce(s) Supporting Document(s) ID Date Data Source [id number] 02/24/2020 02:17:47 PM [facility] Name Value Range Interpretation Code Description Data [facility] rce(s) Supporting Document(s) Progress Note [facility] DFFFCy4rGeRDHhAh16/TNLwfKYBqk0AeJAgoOOk3CKqlUSUtI6RvYGJ3uW4oDEQ3CIoQTzGcAeBzPcT4 [facility] [file] AgICAgICAgICAgICAgICAgICAgICAgICAgICAgICAg ICAgICAgICAgICAgICAgICAgICAgICAgICAgICAgICAgICAgICANCiAgICAgICAgICAgICAgICAgICAg ICAgICAgICAgICAgICAgICAgICAgICAgICAgICAgICAgICAgICAgICAgICAgICAgICAgICAgICAgICAg ICAgICAgICAgICAgICAgICAgICANCiAgICAgICAgIC AgICAgICAgICAgICAgICAgICAgICAgICAgICAgICAgICAgICAgICAgICAgICAgICAgICAgICAgICAgIC AgICAgICAgICAgICAgICAgICAgICAgICAgICAgICANCiAgICAgICAgICAgICAgICAgICAgICAgICAgIC AgICAgICAgICAgICAgICAgICAgICAgICAgICAgICAg ICAgICAgICAgICAgICAgICAgICAgICAgICAgICAgICAgICAgICAgICANCiAgICAgICAgICAgICAgICAg ICAgICAgICAgICAgICAgICAgICAgICAgICAgICAgICAgICAgICAgICAgICAgICAgICAgICAgICAgICAg ICAgICAgICAgICAgICAgICAgICAgICANCiAgICAgIC AgICAgICAgICAgICAgICAgICAgICAgICAgICAgICAgICAgICAgICAgICAgICAgICAgICAgICAgICAgIC AgICAgICAgICAgICAgICAgICAgICAgICAgICAgICAgICANCiAgICAgICAgICAgICAgICAgICAgICAgIC AgICAgICAgICAgICAgICAgICAgICAgICAgICAgICAg ICAgICAgICAgICAgICAgICAgICAgICAgICAgICAgICAgICAgICAgICAgICANCiAgICAgICAgICAgICAg ICAgICAgICAgICAgICAgICAgICAgICAgICAgICAgICAgICAgICAgICAgICAgICAgICAgICAgICAgICAg ICAgICAgICAgICAgICAgICAgICAgICAgICANCiAgIC AgICAgICAgICAgICAgICAgICAgICAgICAgICAgICAgICAgICAgICAgICAgICAgICAgICAgICAgICAgIC AgICAgICAgICAgICAgICAgICAgICAgICAgICAgICAgICAgICANCiAgICAgICAgICAgICAgICAgICAgIC AgICAgICAgICAgICAgICAgICAgICAgICAgICAgICAg ICAgICAgICAgICAgICAgICAgICAgICAgICAgICAgICAgICAgICAgICAgICAgICANCjw/bDWrO8clpFDq ipT6T5zjLg6ETn7WQE0ep6EtXTMwTZsjzcPbTjxMKkMbWLMsSseEOwb1XZmeVQ9LnSEoT8CoX6VqQZqs UO5VVBVsSRKnvFNqGLMaCSRtYrY2XSIeVThsTN1VyR FdIDegJPFfYGXcAoLnNOBqIADyDPBuLDJbSDXQLP6UVgAvI5GdkE68FXCVAr4+TGamxrLsYyeDJhN9MW Ipa0TsLOq8AR8IRNWsRfbgx6CzZnAnBDIUISuySG4XXIG6RVC8PONtSt4EPLOgZ025mrMoZE7GGe0UVl WyTS7wbz8KMhFnCWRePviLKxw1PTadNV1WaHLsUIrD lm9pmgYwtiYPo5PkhfBwsCYWvUAcPJDcXSLvDLo1YWCYXQKpiQKmAl7hCU3pBPPbJDTtHuSfLZFUVO7N KIGhWHJcsSGcYDJaODWVJK3LGTvzKII0JXRqhoSnwGFbUHwjFR0UOMXcsiPeZyGhVZJMQAt+Tl1TSM2w u2DgWRfkBpTiDJ7snq7QTLcFRpNkL0C5ePRoC4P2XR njIj2KRHSzUACrKiUvGPTZQKntOA9CKO8nmvD0NO1FdRFmLSRuBNPqbSUtKTa1O89tlPJgBAhiDH3XNQ A+Antelmo+Zx0GTFGdUYQxKHDoVvTyTBNPWzXjF7BzF2MFs7MjK3YgGE37lIfkioPiZPpkGC9FQS7lLFDqWF DMFA2VdJXsfF5sycEjBMYjSMPLJrIiG40vwZAxMNWc RPB1WTZlIf1MRNCiA2YmsoVahXnwtqWeMSSxGQDMWI1LIHzgqgNgzNZidUxaEA39nMsjXK5FLh0BHmCy EG3ppr4BuGNhYw2IOMRsRM3TORHjJNDuZQLcYEP7CKQaAgQtPCbgEOWwEZFqBUT9KPSvFTVuJA7DBuAi GYCeKss9NpLaAMNgUSKbcp4GXOOpAPSaWLF3JMQdKP YaAWMyVVtqUGFpSVCwCXO4ILTnCSNwBX1NJzUyVEWvYJU8OyqzSXJsJLKuyz1KSFFzSZBpLpj6ZfEtVU JpUVGiMLpaLRNfFKS1MUA7ECUbAMIkIP7ZLsJhJUQjLStyWsFzCASrEXRlqv6QKZBfNAFtYCE1UATdSW SqACXvOYpzBUMtMUVsYlJ5QIYcWXQnXU4CPtZuPCFp ZLSlPOCzPBYsTXRqas5EIPFmEQNiEoK7QNMqZEBwBXOoPXwtAWXaSHDlMkF5SFOlKXWsJE2RUnSlIYGd XOK3TGTbVCLvBVLowm5FVIStEBJoKrhnPSQaIGWbVJBoAFrjACGaKVB0Qkb9DWMgCZHfHW4QLwVsGCZp PDE7DLYwEVEoVQLjlo7WLEGyBAIpTTV5ASPeYLUwBG LlKGwvIUSwNBW9GOF7TWWiEBSfUG8CKaUxJIKqPpP0VkNjQILaIKFwtk5VYRXhWAFtSnD1CrPeRELvDS LjFLvzSIEuATQ8UtgdMOZdKZGhXD1FMqXiLCWsTqe9XumkMOXeUFKydx2CIFYyIIIdNaqfKVWjJSCtDI GyESgoSPIoVPA9Xhp6OTCsADHfID2EKnQhKEFqGmdz YjvxGSPeFXSwfl4AFRRsQTLnUOZsXrVjLMGxYJDlXLw0cdKraRLfSZy5ZO8XN9VcavBmPunFNn9Lv090 JSS5PPTqJw6FB9tyTp8jAJJwGJMBZo4IKLc6KQWvMOcwN4NjNXAwNIl9NtLlYYOsHhLiBLTkL1CtFUW+ OLr6KIUmDbVaWVNlPLNcTUQqFPPgKpW1GIFvMLUzQw EgRZ2jEVYCLc9+KWcfwMAqjPbdCTFZBgV1HfDqWUrjPAUQRe5O ID Date Data Source [id number] 02/23/2020 12:31:38 PM [facility] MR BRAIN WITH AND WITHOUT CONTRAST [id number] FINAL RESULTInterpreted by:ALEKSEY Fullerlinical Indication: 54 years [...] matos(s) Supporting Document(s) ID Date Data Source [id number] 02/04/2020 03:36:27 PM EST [facility] Name Value Range Interpretation Code Description Data Lynn rce(s) Supporting Document(s) Progress Note [facility] KYTOKr4fWgKLPkPz71/GAUidOGTtl7QmPZyuSZg4TCssGSRoW7YoWRD4bI5dERP9FNqWLvSyPfLyZvO7 lbm [file] employee communications coordinator/f69PUsRKKTdy4EydlDWs/w5c4x8tVyNWgBiUbx6FzKV5o3G+JLBqINOlrlpvvFXVYgehtWbreFoJ7 [file] Cj4+ZOennJYpnYpoGGQAWgM3WFA2AGmuLRXFAg9T ID Date Data Source [id number] 01/27/2020 07:17:37 AM [facility] XR SPINE LUMBAR 2-3 VIEWS 19700JIJOQ RES ULTInterpreted by:Edward Rios [facility] SPINECLINICAL STATEMENT: Low back pain. L1 fracture.TECHNIQUE: [...] rce(s) Supporting Document(s) ID Date Data Source [id number] 01/26/2020 02:26:40 PM [facility] Name Value Range Interpretation Code Description Data Lynn rce(s) Supporting Document(s) Progress Note [facility] NEMKRj9xHlXJQiGe08/MJZkpHWSuf3FkMAdoHRb0IPrtRNKcF1LdSEN4mQ3zKZG0UFaUSvDjNpMvUEJo m [file] ICAgICAgICAgICAgICAgICAgICAgICAgICAgICAgIC AgICAgICAgICAgICAgICAgICAgICAgICAgICAgICAgICAgICAgICAgICAgICAgDQogICAgICAgICAgIC AgICAgICAgICAgICAgICAgICAgICAgICAgICAgICAgICAgICAgICAgICAgICAgICAgICAgICAgICAgIC AgICAgICAgICAgICAgICAgICAgICAgICAgICAgDQog ICAgICAgICAgICAgICAgICAgICAgICAgICAgICAgICAgICAgICAgICAgICAgICAgICAgICAgICAgICAg ICAgICAgICAgICAgICAgICAgICAgICAgICAgICAgICAgICAgICAgDQogICAgICAgICAgICAgICAgICAg ICAgICAgICAgICAgICAgICAgICAgICAgICAgICAgIC AgICAgICAgICAgICAgICAgICAgICAgICAgICAgICAgICAgICAgICAgICAgICAgICAgDQogICAgICAgIC AgICAgICAgICAgICAgICAgICAgICAgICAgICAgICAgICAgICAgICAgICAgICAgICAgICAgICAgICAgIC AgICAgICAgICAgICAgICAgICAgICAgICAgICAgICAg DQogICAgICAgICAgICAgICAgICAgICAgICAgICAgICAgICAgICAgICAgICAgICAgICAgICAgICAgICAg ICAgICAgICAgICAgICAgICAgICAgICAgICAgICAgICAgICAgICAgICAgDQogICAgICAgICAgICAgICAg ICAgICAgICAgICAgICAgICAgICAgICAgICAgICAgIC AgICAgICAgICAgICAgICAgICAgICAgICAgICAgICAgICAgICAgICAgICAgICAgICAgICAgDQogICAgIC AgICAgICAgICAgICAgICAgICAgICAgICAgICAgICAgICAgICAgICAgICAgICAgICAgICAgICAgICAgIC AgICAgICAgICAgICAgICAgICAgICAgICAgICAgICAg ICAgDQogICAgICAgICAgICAgICAgICAgICAgICAgICAgICAgICAgICAgICAgICAgICAgICAgICAgICAg ICAgICAgICAgICAgICAgICAgICAgICAgICAgICAgICAgICAgICAgICAgICAgDQogICAgICAgICAgICAg ICAgICAgICAgICAgICAgICAgICAgICAgICAgICAgIC CoQAIoPEUrNRDzQJSjGGJwICBbGVKnDRWxXPVvNQZsGUXbAXHcGNLdFNLnNIKcIZXmXWXxNELaOHe6S1 zdANJoOMZpBG9bURj3Xr7+WNwZRxIwTYB7hoPwmP8AUP0hs2IhATfyMWYxc5FrCKy7NC7ZTSGyVPbkTX 4ZCLsjqb7WODKjBJFqgUBCu7syKqWdQDI5WTVeLokp CT3MAKVeX3lemwPvAZJcVOGBKJgpFYAGJLoyQRXDPGTqMRDlMqOvIGyeUQ9Gs6WdnYG9LOw+Yk6QJZ6x c5WkOZdrZHNgMM7rrn4PFBlPSjNqP1StirG5ITYxCJWfTl3VTIIpSRRnxYS8KRArVIBMDsDuN9GlzQ15 IDENCj4+PIjxbpIhVlxCKlQtRTNjy4QtAQh2TG6IBG EfVFf6iIOcTIGcT5Mbe2GrVr03QZJiKbfjUQK6eRbbcrJEXCOyx1vcYS1WFQR8CQXvHeJhEuPjLuUvYN E2OuGwVZ5uBYikNR5LVZV6TJzzGDZcLZFgS3wIPmMhAIBiZjXwaVeePZ0PTxHeO9YncaPmdINwHRZiJV INCj4+LSygbwUuWsiQZtVfJZCwu9TdFXi5OM4ESFUa SCedCF0PGMAvwL3kQJjrNG2OJyMbFbAlGOWFAqUtL88goVKqJYi8Z6FfVeVvDWEiVhjmCQZbSBntUxRk ZXMgWyBdDQogID4+ID4+EAwdEB8SBFpolhZsTMTmGp3NKKJgFJDlYV5aEDUfZROfY2U2nRltGYENCuEf Z5olzkybXX7gTUSbD720kToxxpSdTGI0WWZkFe2KHN ZmCLJ0ENPumCRvDlhnJEUZXCuxXL4GxKRrLKL8iG7aHJdxZOXuKULzB1lJAsFetQfsIZ48nDtkrbWpvM BdDQo+Su0QUN1uo0VaILg7llWaRIihBROzSYqdXKGiUKVuIXDuHFX9XAR3FCJAPsLgFYUyYNFwBBwwIG ZtVMZrgo0PPHSdSIKqUoW2NOYfCOPrFDWhWRojWNFl UKO9IOHtWYHoFFDlYM2MCpClQESoJWUuAInnGLIaBXMxgx8LXBRbAFQdMzL4ObQiYEDnIXOwZYsiIIZm ERPpAjM8RSDxJEKjLE9RUmRlVEKhELG4CIWaKATcVSDteq1QZNTfBDCmWhevLVAkQPVpFIWqHOvmRRPl ZDHfKWriZEHhHHWjQN8BReWtZNHgWCQ8HzKoRCDcUK Oqtr0LIQKiUKYbCCo4ZnTbDJNiEYGgBIerRCIiWKAmVBncBLCnLULxAA0KOgOxOAXuQCY0NvMnVZHtKQ Qhas2FWHJrSTIoIjNlGCGgGVDbOPIsKTnlGJNyZOZnDmZbPVShMSRnXF5RHfVzFFIqXIElVzHxFHGfTT Eaxi4CDSUoGNRwBPC3OfMgMUEwPZAqDEntEESaFLN5 SdPuYVCgIXKbYO4JDpAzNDTeNmYvMTKcIYAgFHPzku8NVJQvIRFeEePpHvEoHYVeRFMtDFtxLOUiJQN6 FgO3NDQlLKVzWI1IQhQrCWBsNjB4VdOfSPTqJAKjsl7LGZMkIMZwBkYxRYBjQRWoEJZhPSvqSDYzSAN6 NOP7PHQzHRGdIG1LNlWdHFZdFhjrDETwFFBwLVWewc 9IRIFoDWWdJWTeGwVfTHLpZXXeTSfbSQTgZUL1QtDdGDIaBKFdMF1ISzBsBWZeKca7HGrlUXFcMFAdto 2LSXQlZRTnIVZfDyBxGLWkHZNsNHddEEIgREP8QFyfFSNdBSItHO1ERqSiBFWnPnQ1NJLxDHRwITUacm 8XKWMaJROzNJVpAoXmQMQmNXUiJSaoYBEoSCB5EhH9 VZYvBUUxWE0VQbLiTWWoEmD3ZCxsTFPnFRTnqm8GJMBwGZHjCDHbYZSnPNChHVXgXWtoRMHaKRD7MJbo WWCsIBLtND4QFwEwKOSkJqHhXMpuOLNvBDBkdf8EXAKxFJJsTtY7ZtNyIGDcIIPfPEgaQQQePFV6ARZy OCAsUPFjID1IXiHdIUKaAohcWDAmWELvXYQqog3XZT NaMINtRPX0IDPrIECqIVMdSPm3sfPheKKfEAr0JH7MG1CgvpSeIEZTSr8Lo334ZRKjPCIrSy4DJ6ysId 9yKKMlBXBHMu8EHKd3PLUlKbl1CzPfDCZfKKAfZ8HgM2TpNyWtMtJrLdWcLaV+AQb4J0XaUNanUyLeQM CdXhBxXwFeLlNbAxGhK1DyRbW2Cz1rXBABUw1+UQpdvLBtgIanEOLDThL7ILE9IEbbHCDOWi5O ID Date Data Source [id number] 01/26/2020 08:33:09 AM [facility] Name Value Range Interpretation Code Description Data Lynn rce(s) Supporting Document(s) Progress Note [facility] RKMZDl7qDbBXUjAu34/YMEoxTCVuk8VnZHygADc3OQzdWTDzX0TxPUG5vC9fRAK3RLtVFsYpMtJfEVCe lbm NpTerNBsVvPXTdNhaRUpHpZAgrQwbaaGRmVA8NcOH3PJYaS58cBCVgDWYeB6MdLSY4OVv+Qw3FXGCchR VaID2AIhyV4R0dyagKVk2ehM+aFKA4IVXbm1f9WJIIwnQStt7ZydiWjc8VudrRGfSpLNywr+mjlldRM6 a/16TUqvR7ThIgG6B4Ocy7W9jw7lKB/30W+75rWZbI /61+7NHftzGn69+HQyhpKmLhG8sm9gAfDutnX3x+sfFLI40JlMLyA7QXwVF8U9wIsxzZfyQrcMM6cz+b z+Zz75kkI81HmAjAJ/HxRf/yXNiBaynb/uanaAk7B7oPbMiD2SyNt+PQ7wkfJgBOpAkr9Xif8aIu2Ddb EoIrv8j6oqQ98aa6T1J96dOq13iyEerMdQGF4otKqv 2Sp4E1E9ocMmLXtnxUEiLcLx8+jHXZtX6w5Iv3BaShScZyYx6uoqcrCg0Wu+QH4A1p9TpoEor1sA6NvB t+wAP80ONeLrEKBSt3Mu9uw1hF5UK5V6s+jjd0q7ngkdYfob/LAiaEGW2hHCqIzl7Y4rSLJG2KZNi7lf tjlwFZ9joz2vT9bRVsIH7uFvhZ0WtEmq12er9VMoK6 IyOJPgatNpmP3aT2Y49br/MKpAmSLbf5hsPIwfr2fFv2rcYx/6kttLkSLf6Z+P6M9g3udVneg2eJOeG3 EmJzWN8ckUj1dZbW7FDMl32ZiSrWQB8ap1IjgzIZd+4qcKyc/u5GZyS7XTRmAad6GNLpFmps8udECxF9 UvPd1HVV1yXCFvK4YE7f7bRGrmhwuJkmUH3RaE/Santi [file] AgICAgICAgICAgICAgICAgICAgICAgICAgICAgICAg ICAgICAgICAgICAgICAgICAgICAgICAgICAgICAgICAgICAgICAgICANCiAgICAgICAgICAgICAgICAg ICAgICAgICAgICAgICAgICAgICAgICAgICAgICAgICAgICAgICAgICAgICAgICAgICAgICAgICAgICAg ICAgICAgICAgICAgICAgICAgICAgICANCiAgICAgIC AgICAgICAgICAgICAgICAgICAgICAgICAgICAgICAgICAgICAgICAgICAgICAgICAgICAgICAgICAgIC AgICAgICAgICAgICAgICAgICAgICAgICAgICAgICAgICANCiAgICAgICAgICAgICAgICAgICAgICAgIC AgICAgICAgICAgICAgICAgICAgICAgICAgICAgICAg ICAgICAgICAgICAgICAgICAgICAgICAgICAgICAgICAgICAgICAgICAgICANCiAgICAgICAgICAgICAg ICAgICAgICAgICAgICAgICAgICAgICAgICAgICAgICAgICAgICAgICAgICAgICAgICAgICAgICAgICAg ICAgICAgICAgICAgICAgICAgICAgICAgICANCiAgIC AgICAgICAgICAgICAgICAgICAgICAgICAgICAgICAgICAgICAgICAgICAgICAgICAgICAgICAgICAgIC AgICAgICAgICAgICAgICAgICAgICAgICAgICAgICAgICAgICANCiAgICAgICAgICAgICAgICAgICAgIC AgICAgICAgICAgICAgICAgICAgICAgICAgICAgICAg ICAgICAgICAgICAgICAgICAgICAgICAgICAgICAgICAgICAgICAgICAgICAgICANCiAgICAgICAgICAg ICAgICAgICAgICAgICAgICAgICAgICAgICAgICAgICAgICAgICAgICAgICAgICAgICAgICAgICAgICAg ICAgICAgICAgICAgICAgICAgICAgICAgICAgICANCi AgICAgICAgICAgICAgICAgICAgICAgICAgICAgICAgICAgICAgICAgICAgICAgICAgICAgICAgICAgIC AgICAgICAgICAgICAgICAgICAgICAgICAgICAgICAgICAgICAgICANCiAgICAgICAgICAgICAgICAgIC AgICAgICAgICAgICAgICAgICAgICAgICAgICAgICAg ICAgICAgICAgICAgICAgICAgICAgICAgICAgICAgICAgICAgICAgICAgICAgICAgICANCjw/tKQaB6hz iZKeszY4K8hnZe1HZy4GHT7ei4MgMBZxRBtswgQjOekVSeOoDSLvMifQRzf5DLzlJJ2SqWRhD1VzG0Qk UJmaUA5YPLKrJABkzFIlXBIeKFTlPyE6MHDdIDgpJO 5LxMDgUVqgXRZxYLQzDjMwBZQdPR2APATfQ786rpZkYz9MRs8LJgAwKW0csr1ACwDgLIYuDjqICdz8AK hpYI4NgVZswYVePeAnFAYOOiLlR6lrb5RrBkOwDQMANIlaVQ6Qj1DtjHAeEOw+Aj8RSM8as9VhCFaxUd HhCC5glb0GDCsZWqXiQ8JacIcrGQUhh2jhHVYrSQ9r lXZhCHF8OROkyVPuGPHfMcRrcYBmMJNXEUPxaPNnKS4pJC7gKYDtXFXbUfW8ZHHEAM9FLEIhPWNacUYk NWFiTNLRAX8ZJRflHNR4HVShzfOrcYSuFKhdDM1TRCUfskVnAlVhPRDKTAc+Zm4QTV6ou7SbDSaoEdXq ZJ5uzf0WMGdZVuSyZ8L4uSQjS2J1NErkEf9FCZBbCK DrPEvdOEWUDGjrYX8RXD8uamW1SM3HlNHfULHqEANiuMQzDLb2Y82nlXMvQElrVO8GCUL+Antelmo+Pg0KIC RjKTBnXBHaPgQjMNQKLiXjB8OqL7UHf1LaQ5ZnLB50yNlaapXwZDopJY6QWD7hMCLnMBLBPF0VeERlzT 1dusHiRFRuOGFUSnXyO87gwZOfUZRkQFAlGCLxUw0G FGDaU7TpgsHopXhpiqWjPFJqAOZZDV9BDJgpdoUnbHGczZckFC38iAfkTK7WUf2HYfVrLI9cen6FyTMs Bd4HCWFuDY8GWMWjPEHzICGaDUZ1TUYxKfEqAMyqSMIbHLQeHEF1TTHeIKNpGJ3WObNrYFOeZHb6UXYn IKCuCTQuzc4KJUQnPJRfKNMkKXHpKFQdDBKzENmcSX UbFTCtZWO0BNTxRNOaTJ8PJpMaKKZvVYIvNuolTMDdONMpgt3MQFFbCVEnWgO1TQGbUTEkQUPdIYjkHB WqWOL9AQR7YDIcLYSmLD2OSqDhDZAmPBG1ICHeAYKbERYfbq5IVWLdZVAqIMA0RJKmSWJyDECwSDetBT KfAZD1YtK4XSErOPCaZU2FRkWjMJZoPUI2GMfpZOKp JMQlcj4WMTYtRLXbHhqgYgVwZPHiSMEnXTdiGCQjRDV8TZH6CEQrNBXmVJ9WMtUcMBFtCNboXIxwMVHm AKPydj3MCGUxVHTaDAG7ZkJpQGDhIPZfDDvlZTTqJVT9BWO5BLDpTFIcRU1BRlNgJLFeDAvmIsibTKGm LGBwyj7YIBZfAUGoARJgCgEfOTDsLOHvXZcdYUCbXX F3HJGuSHEvHKJhLU0MAzNrNRKyEQh6AiGxIDNhIQWprh8IROTeIPFqQILsROQhWACiFDQuRXrtIZHnYF GqGZg8LFTpXKPyKV7LBbYzQIQnAqG8BcnmOPPuMOGrbi0MkPIprGpkwe2ZVLzNEe8HmAmoLWF2SJczHk 0xiASkAtPzGMIVKs8JvcToYONkMOBQVDrdWUAfECKm FIXvYdV8PdM2GJK1KsLqEZQ6BgngQlQ2NPu2KYN6KsK4ACFuKMLaTAmwBNn5EigbJtEmEWrlRAN6QHF8 Cuq2Wvp+NG0mVCh+Ej6Hs6VlnuT2laPmYEzmQBa8Vn5YPQHKV1WFAq== ID Date Data Source [id number] 01/21/2020 03:11:36 PM [facility] Name Value Range Interpretation Code Description Data Lynn rce(s) Supporting Document(s) Progress Note [facility] JSTTTb3iWsDFFtJw21/ESJdsTDGgk8SqWPznFXl4OMnrHUBsQ3ShQTN9cI6uUJZ5FUrSWnHrViVeBEP3 lbm [file] NLo5YqRKFpWpGK9QKBn= ID Date Data Source [id number] 01/21/2020 02:09:53 PM [facility] Name Value Range Interpretation Code Description Data Lynn rce(s) Supporting Document(s) Progress Note [facility] QRFICo9cSvUWPrTu87/KYUlsAVWkh7XsGBshGJe3LSolQVRmF5UtYXK4aN9hHHF9LOiIHmNcYtAoVDL7 lbm [file] SYY3oGQuQh9JUoIvPetCGcXpZB8PHTp= ID Date Data Source [id number] 01/21/2020 12:13:04 PM [facility] Name Value Range Interpretation Code Description Data Lynn rce(s) Supporting Document(s) Progress Note [facility] SJBPBw3xScVLZwGs48/DAPkgGAPkh9VbHGbaVJd7NEbmTLCxQ2ErVPG0qK1gNAT6BYwHHeTjTpThHXJ8 lbm [file] AgICAgICAgICAgICAgICAgICAgICAgICAgICAgICAg ICAgICAgICAgICAgICAgICAgICAgICAgICAgICAgICAgICAgICAgICAgDQogICAgICAgICAgICAgICAg ICAgICAgICAgICAgICAgICAgICAgICAgICAgICAgICAgICAgICAgICAgICAgICAgICAgICAgICAgICAg ICAgICAgICAgICAgICAgICAgICAgICAgDQogICAgIC AgICAgICAgICAgICAgICAgICAgICAgICAgICAgICAgICAgICAgICAgICAgICAgICAgICAgICAgICAgIC AgICAgICAgICAgICAgICAgICAgICAgICAgICAgICAgICAgDQogICAgICAgICAgICAgICAgICAgICAgIC AgICAgICAgICAgICAgICAgICAgICAgICAgICAgICAg ICAgICAgICAgICAgICAgICAgICAgICAgICAgICAgICAgICAgICAgICAgICAgDQogICAgICAgICAgICAg ICAgICAgICAgICAgICAgICAgICAgICAgICAgICAgICAgICAgICAgICAgICAgICAgICAgICAgICAgICAg ICAgICAgICAgICAgICAgICAgICAgICAgICAgDQogIC AgICAgICAgICAgICAgICAgICAgICAgICAgICAgICAgICAgICAgICAgICAgICAgICAgICAgICAgICAgIC AgICAgICAgICAgICAgICAgICAgICAgICAgICAgICAgICAgICAgDQogICAgICAgICAgICAgICAgICAgIC AgICAgICAgICAgICAgICAgICAgICAgICAgICAgICAg ICAgICAgICAgICAgICAgICAgICAgICAgICAgICAgICAgICAgICAgICAgICAgICAgDQogICAgICAgICAg ICAgICAgICAgICAgICAgICAgICAgICAgICAgICAgICAgICAgICAgICAgICAgICAgICAgICAgICAgICAg ICAgICAgICAgICAgICAgICAgICAgICAgICAgICAgDQ ogICAgICAgICAgICAgICAgICAgICAgICAgICAgICAgICAgICAgICAgICAgICAgICAgICAgICAgICAgIC AgICAgICAgICAgICAgICAgICAgICAgICAgICAgICAgICAgICAgICAgDQogICAgICAgICAgICAgICAgIC AgICAgICAgICAgICAgICAgICAgICAgICAgICAgICAg DMSkHLEpBNXuBHEdBREdZLTqTSQvNCNhPCZxUWKwCWBxAYMfPQAaPNTfJWQhNASzRHVhQHe8S1bqHXHb ZCFdMC7vNHj3Sd4+DVpODuCdWKN2hwGviT5QEO8uy5XfDNiqICNdm9ViRYm9CI6XUOBoGYomCY6VYZhh jy1YMNGwPWLgdBHKn3qqWePhIDS2PGCfOzplPS4MBN ElB0nkrkDpZSWoWUMURIrbUHLRKYhgJOXOYITaZXZdSqBdZWspTV4Na6RxbYV4OXz+Zn1FFJ0op8MeBX wtFFCwGB6yue2PUGfELkBeP2ZnxiC6MWYzVPLrUy3JEIVuVNEpwLGdHjSdMWAWAhMyH1QnwG64SKUWRy 4+OTmugoQzEboISnMxQDIan4BqQVi2GH9UYFEfYEw1 nDNsFBLdT0Qpn8RhNh25YCLxOartI2UhwUIbHaHEgc98lmidSEAuEEDyHYPxXdKqKiFiDVVwEBlxMJMQ JYyFVgYkP9Orj0OxErL4TYVoCbFgKFeqCPIqReY6ST20tAuxSR4SXKUhFUDpLW05YSMiIRBhJa0PZj7W BkYqKU6usr0FDaStSHFnVbzIYem9XSbcXW9QcEZmZ4 VkeWEcy1jWJjOeE6JIHYQ1WDGtXw9JDNWxBpCiPYLdTHscSC0nYTUvWFTAvMphxyY4RK3EOL1demQzAX 0GJpCcWr4hIk1UUtUtS5HuM9ShZHOuAFBSULxvJU2OVRktMV6oGJ7Nr2ZFaAFwrW1iyg5UFJVtXXNoWz bueg3FJcfvJ0L0dLwfOYPlErWkZZYJZOiiDI1SQKZf NSR1WPDzXRZtKBTWZzSqJ57jUD1VD5Yrp25rGvW8LUIzEiRpPCsrOO32fXwubwHlnCEuiGpuEG9PCe2+ XZqlfnHjRjxWOgsxOLSLQrTeYfIMBcStIZBwGYMyJYWhZjK9WgHsQm0YCBDdQLXuAWDfYyYyVXLzUHUt BQjzPZJfHHRiBUGkVDIvTDBnWX4YAaJoWDCvNkTeVP YkDWQqMOUfdy0EALTbANMyDWB4KkTcLXHhCJDwSWegKXYiOMX3JGD9RUVtSHVzZB1WYlFpTMOzPJDnFb lyMDMgHQVcqu2WQOVsLYKfFyI7ZzBgZQQsRWZlZGxtWVAnUYT5ZAghKDPnTWZhYK5XVsApHVUdVEO4XG WiPCFcLGIszl3EUWFqHPOqEJLjXVVfYOHxMUPdOGlv UXQcHUZxEHFeXIXeMBCgGH8XCyJwRKAkVSS8PgyxRCBmXECocm8WNDDjOHEiBfpaELTrJQZlOLPvPAbi TVGdLZCdPAN0PLCtLDCuDZ3OAjWtMCGmRVKaROrhRLMfDHKpzw0XGMXsHHAxPXU2HWGpQPZoCKPkMPqx ZOJvOAP0IbzzIOPdEHIkBH4OKbFrWQWqRPC1JFjiGQ XeSCYgsv5EMJTnMDVdGgu9EULwBNSsZFWiTWjbEWKeQMB3MdGuLXSzZZEtVO7UZtOjIPIyEca7HbExES AxOUJbjm9TOEGlYZXtLhX7RmLoCONyKFEtTMfmXVYkGBG2HUJ2DVAqRIKyDU2HOlEwUYSzEub1JkFiXN MwGULrls3RZSWaLPBuFUz3KqYfDBPsEHJwEMlcWATg FIL3VXCiLTDrIRCrRN5MKkQsITUpQiLuMoNrVTPxYAKvhw7ZRQKaHQHzXVM5YhDlZGBlLMIvWZkkZBXk LVIwHGJvYRNeHHVrCY7SNrIkAPJjYkI2HcQbYWTrEIBivr2KNPEaOCSoKgGiDFNzEFJyBJBqYWegUGFr VMXuJHTuTWSbPEFmJT7HTmMeNTHmDdZ1IRWkTLRoCE Xeeu8UiEGrzCedvx0FYWjGLt4BtFikJII0FEquPm4jpJRdNdEoWTUUYe2YnwMyLGDyPLGMXVzaOXYmSN pdVPB7WCSvVPBiCfZ9YwMjEcLsMZPgDuCeKeKdOsB7DtH1YWY2EcEqUARoGLK0JTlbFXU4LOP4IEE1CI NiMKS5Urb+WC6mPCw+Ws5Zr6RvwyZ6ehOkWIfwOng0NB0MMAFYM2SYTf== ID Date Data Source [id number] 01/21/2020 11:21:40 AM [facility] Name Value Range Interpretation Code Description Data Lynn e(s) Supporting Document(s) Leukocytes [#/volume] in Blood by Automated count 4.3 10*3/uL 4-10 [facility] Erythrocytes [#/volume] in Blood by Automated count 3.52 10*6/uL 4.1- 5.3 L [facility] Hemoglobin [Mass/volume] in Blood 12.1 g/dL 11.5-15.5 [facility] Hematocrit [Volume Fraction] of Blood by Automated count 35.4 % 3 6-45 L [facility] Erythrocyte mean corpuscular volume [Entitic volume] b y Automated count 100.4 fL 80-96 H [facility] Erythrocyte mean corpuscular hemoglobin [Entitic mass] by Automated count 34.2 pg 27-33 H [facility] Erythrocyte mean corpuscular hemoglobin concentration [Mass/volume] by Automated count 34.1 g/dL [facility].0-36.[facility] width [Ratio] by Automated count 14.8 % 11.5-14.5 H [facility] Platelets [#/volume] in Blood by Automated count 242 10*3/uL 150-400 [facility] Differential cell count method - Blood [facility] Neutrophils/100 leukocytes in Blood by Automated count 80 % [facility] Lymphocytes/100 leukocytes in Blood by Automated count 10 % [facility] Monocytes/100 leukocytes in Blood by Automated count 8 % [facility] Eosinophils/100 leukocytes in Blood by Automated count 2 % [facility] Basophils/100 leukocytes in Blood by Automated count 0 % [facility] Neutrophils [#/volume] in Blood by Automated count 3.45 10*3/uL 1.8-7 .0 [facility] Lymphocytes [#/volume] in Blood by Automated count 0.44 10*3/uL 1.2-4 .0 L [facility] Monocytes [#/volume] in Blood by Automated count 0.35 10*3/uL 0-0.8 [facility] Eosinophils [#/volume] in Blood by Automated count 0.09 10*3/uL 0-0.5 [facility] Basophils [#/volume] in Blood by Automated count 0.02 10*3/uL 0-0.2 [facility] Nucleated erythrocytes/100 leukocytes [Ratio] in Blood by Automated count 0 /100{WBCs} 0-0 [facility] ID Date Data Source [id number] 01/21/2020 12:03:55 PM [facility] Name Value Range Interpretation Code Description Data Lynn rce(s) Supporting Document(s) Albumin [Mass/volume] in Serum or Plasma by Bromocresol green (BCG) dye binding method 4.1 g/dL 3.5-5.2 [facility] Bil[facility].total [Mass/volume] in Serum or Plasma 0.4 mg/dL <1.2 [facility] Calcium [Mass/volume] in Serum or Plasma 10.5 mg/dL 8.6-10.0 H [facility] Chloride [Moles/volume] in Serum or Plasma 94 mmol/L 98-107 L [facility] Creatinine [Mass/volume] in Serum or Plasma 1.55 mg/dL 0.50-0.90 [facility] Glucose [Mass/volume] in Serum or Plasma 163 mg/dL 70-140 H [facility] Alkaline phosphatase [Enzymatic activity/volume] in Serum or Plasma 76 U/L 35-104 [facility] Potassium [Moles/volume] in Serum or Plasma 4.2 mmol/L 3.4-5.1 [facility] Protein [Mass/volume] in Serum or Plasma 7.1 g/dL 6.4-8.3 [facility] Sodium [Moles/volume] in Serum or Plasma 129 mmol/L 136-145 L [facility] Aspartate aminotransferase [Enzymatic activity/volume] in Serum or Plasma 28 U/L <32 [facility] Urea nitrogen [Mass/volume] in Serum or Plasma 20 mg/dL 6-20 [facility] Osmolality of Serum or Plasma by calculation 275 mosm/kg 275-300 [facility] Creatinine/Urea nitrogen [Mass Ratio] in Serum or Plasma 13 [facility] Bicarbonate [Moles/volume] in Serum 22 mmol/L 22-29 [facility] Alanine aminotransferase [Enzymatic activity/volume] in Seru m or Plasma 14 U/L <33 [facility] Anion gap 3 in Serum or Plasma 14 mmol/L 8-15 [facility] Glomerular filtration rate/1.73 sq M pre dicted among non-blacks [Volume Rate/Area] in Serum or Plasma by Creatinine-based formula (MDRD) 38 mL/min/1.73m2 >60 L [facility] Glomerular filtration rate/1.73 sq M pre dicted among blacks [Volume Rate/Area] in Serum or Plasma by Creatinine-based formula (MDRD) 44 mL/min/1.73m2 >60 L [facility] ID Date Data Source [id number] 01/21/2020 12:03:55 PM [facility] Name Value Range Interpretation Code Description Data Lynn rce(s) Supporting Document(s) Thyrotropin [Units/volume] in Serum or Plasma 29.200 u[IU]/mL 0.270-4 .200 H [facility] ID Date Data Source [id number] 01/20/2020 03:54:51 PM [facility] Name Value Range Interpretation Code Description Data Lynn rce(s) Supporting Document(s) Progress Note [facility] DEQXBg1fPpAROrCc40/FXJxpODWdg6LkLLavLLp4HCkuOCEbT7QvNQF5oL3vFPB2WTjAObYsCiIiNLY8 [facility] [file] ogICAgICAgICAgICAgICAgICAgICAgICAgICAgICAgICAgICAgICAgICAgICAgICAgICAgICAgICAgIC AgICAgICAgICAgICAgICAgICAgICAgICAgICAgICAg ICAgICAgICAgDQogICAgICAgICAgICAgICAgICAgICAgICAgICAgICAgICAgICAgICAgICAgICAgICAg ICAgICAgICAgICAgICAgICAgICAgICAgICAgICAgICAgICAgICAgICAgICAgICAgICAgDQogICAgICAg ICAgICAgICAgICAgICAgICAgICAgICAgICAgICAgIC AgICAgICAgICAgICAgICAgICAgICAgICAgICAgICAgICAgICAgICAgICAgICAgICAgICAgICAgICAgIC AgDQogICAgICAgICAgICAgICAgICAgICAgICAgICAgICAgICAgICAgICAgICAgICAgICAgICAgICAgIC AgICAgICAgICAgICAgICAgICAgICAgICAgICAgICAg ICAgICAgICAgICAgDQogICAgICAgICAgICAgICAgICAgICAgICAgICAgICAgICAgICAgICAgICAgICAg ICAgICAgICAgICAgICAgICAgICAgICAgICAgICAgICAgICAgICAgICAgICAgICAgICAgICAgDQogICAg ICAgICAgICAgICAgICAgICAgICAgICAgICAgICAgIC AgICAgICAgICAgICAgICAgICAgICAgICAgICAgICAgICAgICAgICAgICAgICAgICAgICAgICAgICAgIC AgICAgDQogICAgICAgICAgICAgICAgICAgICAgICAgICAgICAgICAgICAgICAgICAgICAgICAgICAgIC AgICAgICAgICAgICAgICAgICAgICAgICAgICAgICAg ICAgICAgICAgICAgICAgDQogICAgICAgICAgICAgICAgICAgICAgICAgICAgICAgICAgICAgICAgICAg ICAgICAgICAgICAgICAgICAgICAgICAgICAgICAgICAgICAgICAgICAgICAgICAgICAgICAgICAgDQog ICAgICAgICAgICAgICAgICAgICAgICAgICAgICAgIC AgICAgICAgICAgICAgICAgICAgICAgICAgICAgICAgICAgICAgICAgICAgICAgICAgICAgICAgICAgIC AgICAgICAgDQogICAgICAgICAgICAgICAgICAgICAgICAgICAgICAgICAgICAgICAgICAgICAgICAgIC AgICAgICAgICAgICAgICAgICAgICAgICAgICAgICAg SHFmMHSkYTUhHQOxSGMkGEYeYXp5R3aqUEYhADTgTC8bDBd2Ve0+OCwOHuCuQRR1qsNxfU0QDD0ny9Ol XPqlYEOhw9AiAIx8MV4EFATuPEtoST2VSUvnpg2CKUHeKKFhfDMBp7fyTzAyAKK5CZRrEyqzMR7GHSDp S0vdnnHwBBMdAPLEBPlyAJLQGOyzRUHWROXyEQIaNz WsZsHhWLQrHRLxQCEWFBE3OCJyCuGmXThvSF8Rh0HwuDH4BGx+Mu1ICC8al2XgHKcjJQQhFU9kzp9AIR vZQiLeO4ZxxeA5RLZ9AEEhIy4OANXzLTWqbILtSXRtLTAYHiWkC2YdiH04MGWHTx2+DQplbmRvYmoNCj W4QTCjz5KuNRw2KC5NLSVzPTl4oFFzCKHhO2Alc5Nf It70BIUrDrjzExCghxEtZFRHAYQgbYUmbnlyHHIbSPAlENEvUo1hWKLwEXByGoPhNVESAM2OTTRxYPJd yZQvZUSoZBSEMT1WOZuiCNC1EFFqllYdkGMwFRjhNM8EWGUkqgSeUaYlYFYGAIl+Xa1CCR5qt5ZjDBxy FdXzQX5acg9WYDhNOzOhS5B0pZWtP4D5MGduKi6EBW BxSXThBjNyKRBLRThyRE9EYV7eecE7PQ8YxYJtWIGjZUGlaPJvDSt6X24xtTGsRNfwEA5ALVE+Antelmo+Pg 4OFVObLDUnZHSdYlJdUXVINeUtR3ZpS1DTm4QaG6DaZJ86gDawlwKuUPjjRM8VPX8dCIXtZDTEBO2VyK LruI9mykPbFETtFNLQJsRiI59slDWyVXKwISTcNWVl Gb5ZZIWfK5ApkuCkhIqzkoJeVXMsVUHTOL3JAGohfmYzpXClzFdcWN79eRuwKD6ONf9NTuAtOH8wpo6M hLMlDr3XVJThTu7KYJThAFBpNLMwFMM6OBXxWoWrGSdlFAYmSXKtHTZ0OQRnDZBaME7JJzWfJJUeDmoy OtQbHMNbZUAfgp9YLTAqSDR6GRX8ESNoZSLgYBIkVL lsEBPzJAPcSJP2KVFwFOXzES2TExQbYAKdNXYeVgBqWDTcNFQzqb4ICMVcTHUpCDVqHiOdYZZgRPZhWE ndPIUcLOE4NfR7SMFqEXQbRT7VTuTwIVXnQLc3VdruFOQoHOEqqx5TUIImWQXvYYf2ATPoKTBuJPFbHJ wuQPIvLXKuGNptYJJuYBLrMS3IAuXeKGPoDVRwQpZj EHPdCQWcqa3SVJHjFIMnEbW0BmAbFPPbOKRoMGtlNLTtAWA0JTZuJYAuLJCwOB3KFlJfXDPtTSamQVpi MLYiURRnzr3OFWZbEOAkAFh0PJUfSYVbCTBqECweJWVvKAChNLl8OZNvPNLfOG2YUkKtHFQyKsF1VkFd IYFlGVMxvd1CDDYfEZHeOMf7PVYwZZPtKCFgBYhbGQ DqVRPpSVEqLANxLANkQK0FEhPuLFTnPiKoHXpwWFOqGIRuci8WZTNhHIAsFiC3XWIiCHYzPAQnLEhyBN KtBSG2FlT2ENHdJJZhGP2SXaJbBFGdJlR4BVDcZFGtXPLdzp8ZQNUzDDGcWFCtEDSpAGNdNULyCMqqZM LyOGF0QSC7HJKsIXLwQD0YFsJtHLUzIeJmRBMzKZWb LILfky7ZCTXmYYMfBjN8KiShBGPlHBItXBnkMRSyTSR6WBNoFODlVZJaSB5MFcScNBPmGiN6YDqdZBLa FXWshf0GEIRpDRMuJrgmZmVzOLDxPYWwKEhsFFYuQTJ2TKMaFFTtJJMmPQ7NHxVkPQThDdsvNWWjBLLz GRJigh3OVUBcMSTcQDebBIAdINMtIWFyUZjrCLHdZY VgAJk6EHTzIZGmAA2YSeVqZOVkZVSgBpgvVIEcXUUkwe7EQROcTFS4GCCpKZJyABIrJPWqIFx6wuWqqR JyINq7AQ5GE8MbtkNhRyoINs8Eo319SLI0RWSiCe1NT4brWe5aQTMbBALBGx4QSIt7QOB3WwtyHRJpH0 R0VHM3XAEoMRGaBBWqZHKwQUAfRbL+KTc4ZRJnXtX3 LCK8KGX3XBv0ZjU6KMFbNqA7CGPlUuTjSG8mBQFDVq7+XPlwoSHskRxkTSTMQkLvQjReTWjrREDMKz6S ID Date Data Source [id number] 01/19/2020 03:50:39 PM [facility] MR BRAIN WITH AND WITHOUT CONTRAST [id number] FINAL RESULTInterpreted by:Marietta Mendez MDHISTORY: Status post [...] rce(s) Supporting Document(s) ID Date Data Source [id number] 01/19/2020 10:09:38 AM [facility] Name Value Range Interpretation Code Description Data Lynn rce(s) Supporting Document(s) Progress Note [facility] ZEGOSb5xQmTDFtZh61/TIBsaFXYni3StMZneISo4HYdrMHLeU2CxDXG4pC3yNIQ5WNuENjCtPpQcHXNm lbm [file] AaB8DRDoYXTsF3UvPTVlJTP+AB8rJYq+Tw4Qi2XytrS4vhRpCQbnCPLpDt7IARVMA0HGBw== ID Date Data Source [id number] 01/14/2020 10:31:55 AM EST [facility] Name Value Range Interpretation Code Description Data Lynn rce(s) Supporting Document(s) Progress Note [facility] ECYXUe3dJnULFdCx75/FMZawJJJvu5KtNAooEHk0GWckRAZmE3RbOMZ5tT2aTXP7XNlIInYkXaWnGUO8 lbm [file] BeZORmXLSfA7B2NKx4DvX1OiX2JLG+QW7nUKr+Cy6Xp9GyofY4nzXuZEarGMX3Xf3CNCLNR1TVSq== ID Date Data Source [id number] 01/14/2020 10:30:15 AM EST [facility] Name Value Range Interpretation Code Description Data Lynn rce(s) Supporting Document(s) Progress Note [facility] EUUEQa9uTrBCRiZp54/WLOpgQPFmf7CzLCppIDd5HDncVYPfI7LkJRD7gU5kUZQ9YCqXClTsChZgWRR3 lbm [file] xqeMlx3wMNk2mlkQCrSDx+A8KUkm3tXWN2o1Lh01n56jM4+Z23s/hliPOtU8uTyUys8M+[employer]+/q+Ny5+ [file] E/nsnyUZkKKczgw7RWYPN5t2b6qJzq2C0K3yw4QtSQZf+eE6ApOYHbk+EL3+/Erma/4zs1yWYtlyXw2IB K6y3REkXskAHm6t055OvknQ6CqfniG23nnaLysiErqxo86BFCx/9nnUzocR7B+4DALHZUhse772tDple 4jdX87yPK8cB5bmwS5wDgJ92afyuXOZOqjZKM7BPID CHMxYRea6NVX0D42kqja3FGCjKxe4K24tvUWObgiip8RcNUIMueZ2QyUKEMaU5FZCRXLqJerzORFEVF7 UOYfnKLOrYkUT9oY48Csohs2pXsd/+HI0a5GXIPEYJB2p07JPMvAYtJsyZFhU833WzeaGChWQ4XNs7Oi tOleLTfGmOaTbvV95gtg0BAiHoXvF8BPKOkXzQWze7 4RkDDgPFiCAvm50efLda/José Miguel/2ONazzg5HGM9CMIVpVXqYe4nqtVCCFBYDznKdGzHqr7ZoPhV42x7IBR [file] ICAgICAgICAgICAgICAgICAgICAgICAgICAgICAgICAgICAgICAgICAgICAgICAgICAgICAgICAgICAg ICAgICAgICAgICANCiAgICAgICAgICAgICAgICAgIC AgICAgICAgICAgICAgICAgICAgICAgICAgICAgICAgICAgICAgICAgICAgICAgICAgICAgICAgICAgIC AgICAgICAgICAgICAgICAgICAgICANCiAgICAgICAgICAgICAgICAgICAgICAgICAgICAgICAgICAgIC AgICAgICAgICAgICAgICAgICAgICAgICAgICAgICAg ICAgICAgICAgICAgICAgICAgICAgICAgICAgICAgICANCiAgICAgICAgICAgICAgICAgICAgICAgICAg ICAgICAgICAgICAgICAgICAgICAgICAgICAgICAgICAgICAgICAgICAgICAgICAgICAgICAgICAgICAg ICAgICAgICAgICAgICANCiAgICAgICAgICAgICAgIC AgICAgICAgICAgICAgICAgICAgICAgICAgICAgICAgICAgICAgICAgICAgICAgICAgICAgICAgICAgIC AgICAgICAgICAgICAgICAgICAgICAgICANCiAgICAgICAgICAgICAgICAgICAgICAgICAgICAgICAgIC AgICAgICAgICAgICAgICAgICAgICAgICAgICAgICAg ICAgICAgICAgICAgICAgICAgICAgICAgICAgICAgICAgICANCiAgICAgICAgICAgICAgICAgICAgICAg ICAgICAgICAgICAgICAgICAgICAgICAgICAgICAgICAgICAgICAgICAgICAgICAgICAgICAgICAgICAg ICAgICAgICAgICAgICAgICANCiAgICAgICAgICAgIC AgICAgICAgICAgICAgICAgICAgICAgICAgICAgICAgICAgICAgICAgICAgICAgICAgICAgICAgICAgIC AgICAgICAgICAgICAgICAgICAgICAgICAgICANCiAgICAgICAgICAgICAgICAgICAgICAgICAgICAgIC AgICAgICAgICAgICAgICAgICAgICAgICAgICAgICAg ICAgICAgICAgICAgICAgICAgICAgICAgICAgICAgICAgICAgICANCiAgICAgICAgICAgICAgICAgICAg ICAgICAgICAgICAgICAgICAgICAgICAgICAgICAgICAgICAgICAgICAgICAgICAgICAgICAgICAgICAg ICAgICAgICAgICAgICAgICAgICANCjw/wIMaH0qqkF WromV5D1cmFy1CYe0LUZ9dr8NvANMcBRmjdcMjQrzYBdTmPCDbZnmLMdr1CBcqBH4CfNPmD2GxM9SiUO tqSA3NNAKpCBLuhEXnDSXbBCDmEfH3APYiQTeeUP1VrQToZWhvGKZzVNQdRuSiCZQuLBDcBEIlSBPvVO WKFAAeRTZqSbOrJDOeXUPgMN1JEUGmQ086vrUcHl6U Rq8MMaWtQP0sno2MOzhwSQKwDwhUYpg5CBvfNU3ZdIHzaINaBHBoSOZWYuCkM8kxu5MwQxBwJMIMLXce QC4Dr4RpmJXaTLi+Oj3DGN8xu4XjNWueZFVlIX6mmp4LBAvEElAfS7HrqWysGGAve4meVWUcSL5keSNh ALT4CIOgqHQvWEKrYgKnmQBhHSYXQGOxjEHeQW3uRm 4eBWJeOYRcAnRwKAOPYI8UILVcXEMeaEDyAEIvVCFTMM2YYEbfZVX1HECcphMnwBZpIFdiUH7TLXRyku QgMjkgMCBSDQo+Mu3TBW5bv0EjPWqbRDLyLQ0bja1ENRoUUkTkJ4K3cEEaZ4W2BAzeFg7MGEOzMQFoYu adWPLNRQnbVK0EWO8igpS8RZ9AjUMdQXSdCTNdxIGu HLw6B87evUIvJWegLB2QPJG+Antelmo+Ox2HCNIiEYIsOTXyFjWzAPEXDmEvF7FcR6XSp7StB5KoIK35fWor pvKsVEflTN9RZB9sELZoOLKVQU5MfKJqzC5peeUrDLMmXANNNhRkD80jtMHtDOOaKOE5FVZtQn1SMTJv P5XcuuLxrHcvybZhPSGdUPPOJM0BHRzkzkOcfRNdmH dtER60xHtsLM2CEs9HWiXcDD6jzr8MmFUxRp6PMLTlSp8KEUNfZABsVXUxDXL5TVVpYtQfYEcgOFHoET QbFLD9SRDfTPHrRL4AXfOwSINhVaD5QsBvBPPbRAClbf1BSSZqLOAkOiV4BEQqCUJkPNTsAErmAWRgYB DqLAV6MKYkYXZjYL8NVeHcGCMpLUT4XHNzFPUgYIWm cc7XTBYuYLYvUxr6PQJpDGIoGUGxCZwyKEHuJRV5Ihs7SAHlQJGtSX1VVxGiEPLwLZS8HBLfWIGoRLHq qf6VMGSjSGViESR0WcThQOWtAVWbVErqUHGdRGQfDxYcOEYaYDWdBH4KWfQbEXXdHPP7PFDoEWFhMXFn yk8POLLpHVCrVfk8XWEjNVMiNBGgHFqkVEArSKE0NZ O9GSSpYNKbOF6HLqHtNJDvGHf6XIQwXEEbHRDfok4MXXSwVMOpFDX3RPDsNLQjBFVhGPbkPEZdBNQ3IL OgWLEcUCLpIP3QGuCqIIMlXuO7GIAoPBXkINXcmq4OQAQqQIDyPXCuETAgMRCiKKSkDIfaBEClGVDmAa ufHHGbPRNcXC5NAeCeRBIhCxE4KSDdEYZtQIFexs9M WVJcWFWyKQn1OpOcNYFpBQYyJOypZVBmYWGrALEhBVMgICKoBB2UUgCqWNEjKcT6PqPbBUXjCKQjdp7M PRTbZFRaQig0XLJlASPnHXOtEAimELDyOMV4NMY8NIWkEKWcAR5ONiKqUHXtUcCeNWStPVHvHGCxkw9Z JACdETIsEEGxSOMyBJGfNHFuNKjlMTQpIUU8OLOqWU NwAKXxTZ1BTlBpGBIiJhSaFbPnNAJgSGVjqd4CEWPaTGXyPlW0IfKnMRNdBOOoDUslFEDqTGR9WZpfCT BfVUGeZT4ZYzHwCNfdKTONUxp9HFllC2j4TJUkWd8ZI1Bds0KoPxDhVWTRQWzzFH2trlEiCZIlLk3FS0 oXJsogQSVwOVQfRDUwMPuwXGNoS8F8S7Y4Cwk0NwZs P8M5Ts2lNJT3MCIfCgLiKvG0UBHdHaYvFOf2CIFaDMv6YIQyZoKwFcPnDQ8FWm6LRsQ7FKX9pBKgHt9H RxO1TflJYqBtDX1WCFp= ID Date Data Source [id number] 01/13/2020 08:47:56 AM [facility] CT THORAX WITH CONTRAST [id number] RESUL TInterpreted by:Farooq Otero MDINDICATION: Follow-up extensive [...] rce(s) Supporting Document(s) ID Date Data Source [id number] 01/12/2020 06:55:41 PM [facility] NM BONE SCAN IMAGING WHOLE BODY [id number] AL RESULTInterpreted by:Veronique Olson MDCLINICAL INDICATION: 54-year-old [...] rce(s) Supporting Document(s) ID Date Data Source [id number] 01/12/2020 02:34:44 PM [facility] CT ABDOMEN PELVIS WITH CONTRAST [id number] AL RESULTInterpreted by:VAHE CuiROCEDURE INFORMATION: Exam: CT [...] 2. CT ABDOMEN PELVI S WITH CONTRAST [id number] 09/26/2019 11:47:13 AM FINDINGS: Heart: Small stable [...] rce(s) Supporting Document(s) ID Date Data Source [id number] 01/14/2020 01:28:47 PM [facility] Name Value Range Interpretation Code Description Data Lynn rce(s) Supporting Document(s) Creatinine [Mass/volume] in Blood 1.4 mg/dL 0.50-0.90 [facility] ID Date Data Source [id number] 01/02/2020 01:06:47 PM [facility] Name Value Range Interpretation Code Description Data Lynn rce(s) Supporting Document(s) Leukocytes [#/volume] in Blood by Automated count 9.9 10*3/uL 4-10 [facility] Erythrocytes [#/volume] in Blood by Automated count 3.66 10*6/uL 4.1- 5.3 L [facility] Hemoglobin [Mass/volume] in Blood 12.5 g/dL 11.5-15.5 [facility] Hematocrit [Volume Fraction] of Blood by Automated count 36.5 % 3 6-45 [facility] Erythrocyte mean corpuscular volume [Entitic volume] by Auto mated count 99.7 fL 80-96 H [facility] Erythrocyte mean corpuscular hemoglobin [Entitic mass] by Automated count 34.2 pg 27-33 H [facility] Erythrocyte mean corpuscular hemoglobin concentration [Mass/volume] by Automated count 34.3 g/dL 32.0-36.0 [facility] width [Ratio] by Automated count 14.8 % 11.5-14.5 [facility] Platelets [#/volume] in Blood by Automated count 251 10*3/uL 150-400 [facility] Differential cell count method - Blood [facility] Neutrophils/100 leukocytes in Blood by Automated count 62 % [facility] Lymphocytes/100 leukocytes in Blood by Automated count 29 % [facility] Monocytes/100 leukocytes in Blood by Automated count 7 % [facility] Eosinophils/100 leukocytes in Blood by Automated count 1 % [facility] Basophils/100 leukocytes in Blood by Automated count 1 % [facility] Neutrophils [#/volume] in Blood by Automated count 6.14 10*3/uL 1.8-7 .0 [facility] Lymphocytes [#/volume] in Blood by Automated count 2.92 10*3/uL 1.2-4 .0 [facility] Monocytes [#/volume] in Blood by Automated count 0.69 10*3/uL 0-0.8 [facility] Eosinophils [#/volume] in Blood by Automated count 0.11 10*3/uL 0-0.5 [facility] Basophils [#/volume] in Blood by Automated count 0.07 10*3/uL 0-0.2 [facility] Nucleated erythrocytes/100 leukocytes [Ratio] in Blood by Automated count 0 /100{WBCs} 0-0 [facility] ID Date Data Source [id number] 01/02/2020 02:40:09 PM [facility] Name Value Range Interpretation Code Description Data Lynn rce(s) Supporting Document(s) Albumin [Mass/volume] in Serum or Plasma by Bromocresol green (BCG) dye binding method 4.4 g/dL 3.5-5.2 [facility] Bil[facility].total [Mass/volume] in Serum or Plasma 0.4 mg/dL <1.2 [facility] Calcium [Mass/volume] in Serum or Plasma 10.6 mg/dL 8.6-10.0 H [facility] Chloride [Moles/volume] in Serum or Plasma 95 mmol/L 98-107 L [facility] Creatinine [Mass/volume] in Serum or Plasma 1.60 mg/dL 0.50-0.90 H [facility] Glucose [Mass/volume] in Serum or Plasma 150 mg/dL 70-140 H [facility] Alkaline phosphatase [Enzymatic activity/volume] in Serum or Plasma 64 U/L 35-104 [facility] Potassium [Moles/volume] in Serum or Plasma 4.7 mmol/L 3.4-5.1 [facility] Protein [Mass/volume] in Serum or Plasma 7.0 g/dL 6.4-8.3 [facility] Sodium [Moles/volume] in Serum or Plasma 131 mmol/L 136-145 L [facility] Aspartate aminotransferase [Enzymatic activity/volume] in Serum or Plasma 24 U/L <32 [facility] Urea nitrogen [Mass/volume] in Serum or Plasma 22 mg/dL 6-20 H [facility] Osmolality of Serum or Plasma by calculation 279 mosm/kg 275-300 [facility] Creatinine/Urea nitrogen [Mass Ratio] in Serum or Plasma 14 [facility] Bicarbonate [Moles/volume] in Serum 25 mmol/L 22-29 [facility] Alanine aminotransferase [Enzymatic activity/volume] in Seru m or Plasma 21 U/L <33 [facility] Anion gap 3 in Serum or Plasma 11 mmol/L 8-15 [facility] Glomerular filtration rate/1.73 sq M pre dicted among non-blacks [Volume Rate/Area] in Serum or Plasma by Creatinine-based formula (MDRD) 36 mL/min/1.73m2 >60 L [facility] Glomerular filtration rate/1.73 sq M pre dicted among blacks [Volume Rate/Area] in Serum or Plasma by Creatinine-based formula (MDRD) 42 mL/min/1.73m2 >60 L [facility] ID Date Data Source [id number] 01/02/2020 02:40:09 PM [facility] Name Value Range Interpretation Code Description Data Lynn rce(s) Supporting Document(s) Thyrotropin [Units/volume] in Serum or Plasma 9.160 u[IU]/mL 0.270-4. 200 [facility] ID Date Data Source [id number] 12/25/2019 03:33:46 PM EDT [facility] Name Value Range Interpretation Code Description Data Lynn rce(s) Supporting Document(s) Progress Note [facility] FTRDAs5gBsRJHuOu07/FZNbrWXQsa8MuXVncSGe3KMfhGHKmT8NvWEE2sB2uEXW3JCkMFmMfEcTrQDK1 [facility] [file] ICAgICAgICAgICAgICAgICAgICAgICAgICAgICAgIC AgICAgICAgICAgICAgICAgDQogICAgICAgICAgICAgICAgICAgICAgICAgICAgICAgICAgICAgICAgIC AgICAgICAgICAgICAgICAgICAgICAgICAgICAgICAgICAgICAgICAgICAgICAgICAgICAgICAgICAgDQ ogICAgICAgICAgICAgICAgICAgICAgICAgICAgICAg ICAgICAgICAgICAgICAgICAgICAgICAgICAgICAgICAgICAgICAgICAgICAgICAgICAgICAgICAgICAg ICAgICAgICAgDQogICAgICAgICAgICAgICAgICAgICAgICAgICAgICAgICAgICAgICAgICAgICAgICAg ICAgICAgICAgICAgICAgICAgICAgICAgICAgICAgIC AgICAgICAgICAgICAgICAgICAgDQogICAgICAgICAgICAgICAgICAgICAgICAgICAgICAgICAgICAgIC AgICAgICAgICAgICAgICAgICAgICAgICAgICAgICAgICAgICAgICAgICAgICAgICAgICAgICAgICAgIC AgDQogICAgICAgICAgICAgICAgICAgICAgICAgICAg ICAgICAgICAgICAgICAgICAgICAgICAgICAgICAgICAgICAgICAgICAgICAgICAgICAgICAgICAgICAg ICAgICAgICAgICAgDQogICAgICAgICAgICAgICAgICAgICAgICAgICAgICAgICAgICAgICAgICAgICAg ICAgICAgICAgICAgICAgICAgICAgICAgICAgICAgIC AgICAgICAgICAgICAgICAgICAgICAgDQogICAgICAgICAgICAgICAgICAgICAgICAgICAgICAgICAgIC AgICAgICAgICAgICAgICAgICAgICAgICAgICAgICAgICAgICAgICAgICAgICAgICAgICAgICAgICAgIC AgICAgDQogICAgICAgICAgICAgICAgICAgICAgICAg ICAgICAgICAgICAgICAgICAgICAgICAgICAgICAgICAgICAgICAgICAgICAgICAgICAgICAgICAgICAg ICAgICAgICAgICAgICAgDQogICAgICAgICAgICAgICAgICAgICAgICAgICAgICAgICAgICAgICAgICAg ICAgICAgICAgICAgICAgICAgICAgICAgICAgICAgIC QtRMRoEGHaFOAxWTVoGOHtGXDyVPOmJVCoBOi5B8ajHXIvWGWnQY5sZZp3Ez9+ZOyQQdQbDNS3xoAkvB 9DMA0va8TvMXjuZBAyg6WuZCq5KO4UOPYuKAzzPN3DTFnycb6EKMHnWFNyjPQLz8biEeWlDVU4EGVnGf qkQX0MQKJmW4rfjqJkSNCuKVGNTJ1XHoVvJ2DpkU35 IDENCj4+YLvyfbEeXynUQyN3BCFsu7VzATo8XH7MIDJqWkuwx9UlVcShAQXQIXxgRR7NRZH5TQFvEHUz Yz3VBCKpV891dnFhPO3MUg8UBnAyFM3wrg0AWfCvBHRhJwsHUph6YQpiAX0VzHXtHAwDxx5lqbFjurNZ m2TxyiLqfNAPSRNcWKMxXZdtKZ9qUUV7HZEBUQYmnR WqRW7sRI9iRRFgQXFsKcEtYLWYOO9IHNLfEXWuoYLmFIPhUXASPY1REJrhPIS3VYBljdPvsKJiJQxpZX 9QYXJlbnQgMTkgMCBSDQo+Wa9CTO2nu7OlLIuvQMKgSP4jkq4SSUrUGoWoB5U7fPGjO1T8JJrlDp1FDH PvUCJeQGqpDDDVBSrmYJ1ZTY3imvF5PM3IwJIrXMAu UYTrdJGeUTl8C98hdJRaLTwlBJ2WUUP+Antelmo+Br0SQNXuSRYkLADiMhZqHRHDGuNzT8PrT5CIh5HwX2Hw EC81nOcjmmEgRRgsKA1ESI8aLCDbOELIRT6CrFVegN3jfoOdZFArBFMYQaVeQ56toBNpOJWhRMV1REYk Xl5WSUJaG8EifpEfzFsbmsBpGYSpCCKGGW9WJMcydj AcwXOmhDmoLD35jXkxYN9JPm1TZtVfWB6boy4TaQLuFj5VDMGuWu7MRUBlPENkSDBjDOG3BPZsGxHpQB lpOCNoTLLtLSX4REUzHZAzZC0OZeAwKUNwSUU5FDEnFJZhLEMtxr5FMJSiXFJqJNqnAYFkCDJeWKUfGW avVGJfLYQpDMK7IGAsJEAuOS9DPvIeWZGsRPR3IQDn IRUxNIOrrx1EXDQjSWCpLoOyCfZqCIKoYCHfZOjhUSFxFPIpXDa9MTEsLVFbUT3GNmJfFCPfTAHkLyUw YMBiIGIjuh0RXCTtYJCkHhA8HSYtYJSuYKDuBJzxNKJhQGU2PoR6ACQbTKLuUM8UJgZmVVKoMIJ3GIIa HGPiIMRcwv5KVKAeLRLzUVQ4SYYbSVUyPQFjKRhjHW SvNRU8FYNsPGXbWJQtLZ2KLbAvGXBaRLByFoklPXJiSFBqma4BIAUwKOCtNqU6ZIEfZDJtRHAaEUpkGC ZrEZB1YQH3OSMcQIFfLP3BZhOfZHAnXBC8YfGuFCMcZNYguk6AQYWgWGGdJdG8WWYnFIYiKDGjLBkbOB YwEGY7LQRtYKRnNMIlAM4ECaJsQSRwVYe5NxEiJDIu UMUavb1VLWZgNZZiUVImBYErBLUyHOByNZn7sfZzoFGzIHs4FU3FC5KkezDeKjXWMi1Sn079MLYdISIx Qu6EQ8iwUr0oTIYcOAXVYl4OBHp9McJaEJUnWLa9DORxVTKzBOKxFgpwHXnwHUE9UiHdK1Q+IDxmYTE1 OACwWbDtIcT1NGQ6GtRdCIB5WBQlCUUgBOYcXt3z XSANCj4+KMafeREgiNnzNCTDBmE1KmT7ZMrxYMJGMt9G ID Date Data Source [id number] 12/25/2019 01:26:56 PM EDT [facility] Name Value Range Interpretation Code Description Data Lynn rce(s) Supporting Document(s) Progress Note [facility] OZCPZr3zMbWMHtAh87/TKRzrNMAfb4KwCUqfGTj3PPorMCPiB5QzLTT4wH3zGUK7DVhFWeOzFgGvTHI8 lbm [file] AgICAgICAgICAgICAgICAgICAgICAgICAgICAgICAgICAgICAgICAgICAgICAgICAgICAgICAgICAgIC AgICAgICAgICAgICAgICAgICAgICAgICAgICAgICAg ICAgICANCiAgICAgICAgICAgICAgICAgICAgICAgICAgICAgICAgICAgICAgICAgICAgICAgICAgICAg ICAgICAgICAgICAgICAgICAgICAgICAgICAgICAgICAgICAgICAgICAgICAgICANCiAgICAgICAgICAg ICAgICAgICAgICAgICAgICAgICAgICAgICAgICAgIC AgICAgICAgICAgICAgICAgICAgICAgICAgICAgICAgICAgICAgICAgICAgICAgICAgICAgICAgICANCi AgICAgICAgICAgICAgICAgICAgICAgICAgICAgICAgICAgICAgICAgICAgICAgICAgICAgICAgICAgIC AgICAgICAgICAgICAgICAgICAgICAgICAgICAgICAg ICAgICAgICANCiAgICAgICAgICAgICAgICAgICAgICAgICAgICAgICAgICAgICAgICAgICAgICAgICAg ICAgICAgICAgICAgICAgICAgICAgICAgICAgICAgICAgICAgICAgICAgICAgICAgICANCiAgICAgICAg ICAgICAgICAgICAgICAgICAgICAgICAgICAgICAgIC AgICAgICAgICAgICAgICAgICAgICAgICAgICAgICAgICAgICAgICAgICAgICAgICAgICAgICAgICAgIC ANCiAgICAgICAgICAgICAgICAgICAgICAgICAgICAgICAgICAgICAgICAgICAgICAgICAgICAgICAgIC AgICAgICAgICAgICAgICAgICAgICAgICAgICAgICAg ICAgICAgICAgICANCiAgICAgICAgICAgICAgICAgICAgICAgICAgICAgICAgICAgICAgICAgICAgICAg ICAgICAgICAgICAgICAgICAgICAgICAgICAgICAgICAgICAgICAgICAgICAgICAgICAgICANCiAgICAg ICAgICAgICAgICAgICAgICAgICAgICAgICAgICAgIC AgICAgICAgICAgICAgICAgICAgICAgICAgICAgICAgICAgICAgICAgICAgICAgICAgICAgICAgICAgIC AgICANCiAgICAgICAgICAgICAgICAgICAgICAgICAgICAgICAgICAgICAgICAgICAgICAgICAgICAgIC AgICAgICAgICAgICAgICAgICAgICAgICAgICAgICAg ICAgICAgICAgICAgICANCjw/oMIfU7lvwOMfdiR2V3yuNz1SMt5OYD9wy5EdAFOuFVazneMwVlqZGiYv MCEuXdeTIpq4ARaiDJ0DcXHjV2HsZ2AxYVwwPI9CTCGwOHQxbJUvEBMbBQKvOxY1KGNwIDniUY3QpUIj AWwpCIJhAFPtFsDcQAEpWJXaNFStPAJqWYBHGU7FFt PxQ2WqlB59PTCMGk7+ZSnhuhAsOjmJSrWuFIQxn8AzZVn2IP3WJCTnOdcpq8OdRoGuMMXDOMyjLT0QVU G3CUQmUXEaJp4KHVKgT714mgYzQF6LQz2ICnJfUH9jad8XHlXbAVHoFdmJSwm8OYdkVP5XgYMvHGuVfu 5mwwXciuMVi2NiujBeoDODM687qVXNQLZwp7ifIQLJ PDBadMTjZW0yDD3kPYGvODOvWfFoYJRYOW1PUVShDXLtrGHyXOKcQGJOCB1RGRfwCRT0UABvflQjlMYm KDryAT1MLDOvdbZhDdTfMJXQGWg+Zf2OAZ2zl7EsAYxgSmQrBF8jqr6CVTeIMmJaZ2L2iQQqG6M6VPvy Kb1AKLMrTEElCvplOZYVRKvfHK1PWE1jlgB4RI5PuR MaFWPwKJCncPYfJZt3R53xuZEjFFarPC4UZKD+Antelmo+Ji0DZRAfYEEcVQRzRjChGHKMRsXuL3SfP0GEl3 JoY1NgHC62bQiphqXvCZoeYI5EMW3uWXYeIEFWOU5VzXEmuO4lcmUxXNHxVSRWQqLuL35nsTKaZPHmYO KoTAQvSi6YEUTmB7ZkshWznLfhdaGrRUHxGOXCUF3D INmtlkOjkIVneVugQB22dEcnVP6CQr5ZVxDkVM0qnc5EvALrYy8UAXUhHQ9YUBSlTCLeBTOkRHC8EVRy VjNaVUsiRFQrIZJjMWI4IWPzJKPkCO8CSzQtJUZnFuCbNxBzWYGtRTZpxi3VMNZuPBMqOSf6MwYjYOOt XTHwAWqsMSWyNCBlFCA4RYQfWETnOH4HNdMoZMTzXD IdBQanUTEwACApte4SUGKvONTlVTOnAvOrBHBaMUHmPZjoXZRjUZY6BJxcUQFnVTCsSK6ABlXuUTBtRY u3MgKxSLSbOMBwbe4QCIOcDKQyMMoqCQVlVYVkSRVeYRkaTURxFLTxOZBkHBHxJEWvKU7MFdKlWMLnHD FyYsRfRDHtCTHhnk9PUPKaXYBtUnMtPLHkETFtTPDz EPjkMJDoATHsNit3WUIbAYBxRE0PPqJvLRGuLSQ1RRZxZAIjIZSuau7OTFOxOTBoZya4RVMaZBWrMCOy LPldIQTlOVX6EhN1BWUtVDZkKC2ZDdPtQIHuXVX6OdWaWRUbAXOmay7AMRRxVRDqQXWwLPGkJMAqUFAt NDbyLTEfLZI3GGK5UCVbCNFmZV4TEsWzBEYgTaA5Ho YpTBHcMMBuqm3UPWSvQZCfKfN8ZmNfOJDpPPYuKNhqTEWfYJZ6YaJjSJBxPGSmHO5SQgLvOGFuKdz7Ca rqBAWjGTRwdb0EUFUdFMEnDWOjIPBcXZFuZQQvLDuxRHVxQJM3IlZbWMAiHSCuOJ4YCjBmOOLwPbu0PC YfDAQfCEQixl1ZQBDlOCTuLLfqMFDpSAYnEWImOZma AQUrPLG9IDSnLQWsNEExMN9GUyGxXRFhBpTsCMQcOPXwXYZbeq5JNWQoPJYuYGRsQqYhBTZqYINdBErl ADZzNBGxZUahLOSfJIAhVC8LFaPtJNXkZuHgToQuUPSxWRTifv1AMCRuUYWpOmChQIRxFFAhXFMbWVa3 xeAqmRTsTPk9PT1FY3JfrcRnNwZWIm4Ma167OWLrMJ BgPg1HV7fcPm9vMYMzKRCEMi6WOSt7XzY6YCEvMcThFLM9W6PgDLidUQzhFXMdHjIwUHJiWGV+IDw2MT HfDjK2LRNkKfu5U5QjO6V9QKEzAGIsZdGqQiW4KO4aUTARXf1+QGrdoNDhvDaxMYKKQlGyMJN1BFqrNU VPRg0K ID Date Data Source [id number] 12/25/2019 12:34:42 PM EDT [facility] Name Value Range Interpretation Code Description Data Lynn rce(s) Supporting Document(s) Leukocytes [#/volume] in Blood by Automated count 9.1 10*3/uL 4-10 [facility] Erythrocytes [#/volume] in Blood by Automated count 3.77 10*6/uL 4.1- 5.3 L [facility] Hemoglobin [Mass/volume] in Blood 12.7 g/dL 11.5-15.5 [facility] Hematocrit [Volume Fraction] of Blood by Automated count 37.3 % 3 6-45 [facility] Erythrocyte mean corpuscular volume [Entitic volume] by Auto mated count 99.0 fL 80-96 H [facility] Erythrocyte mean corpuscular hemoglobin [Entitic mass] by Automated count 33.8 pg 27-33 H [facility] Erythrocyte mean corpuscular hemoglobin concentration [Mass/volume] by [facility] 34.2 g/[facility].0-[facility] [Ratio] by Automated count 14.7 % 11.5-14.5 H [facility] Platelets [#/volume] in Blood by Automated count 225 10*3/uL 150-400 [facility] Differential cell count method - Blood [facility] Neutrophils/100 leukocytes in Blood by Automated count 63 % [facility] Lymphocytes/100 leukocytes in Blood by Automated count 29 % [facility] Monocytes/100 leukocytes in Blood by Automated count 6 % [facility] Eosinophils/100 leukocytes in Blood by Automated count 1 % [facility] Basophils/100 leukocytes in Blood by Automated count 1 % [facility] Neutrophils [#/volume] in Blood by Automated count 5.64 10*3/uL 1.8-7 .0 [facility] Lymphocytes [#/volume] in Blood by Automated count 2.64 10*3/uL 1.2-4 .0 [facility] Monocytes [#/volume] in Blood by Automated count 0.58 10*3/uL 0-0.8 [facility] Eosinophils [#/volume] in Blood by Automated count 0.13 10*3/uL 0-0.5 [facility] Basophils [#/volume] in Blood by Automated count 0.08 10*3/uL 0-0.2 [facility] Nucleated erythrocytes/100 leukocytes [Ratio] in Blood by Automated count 0 /100{WBCs} 0-0 [facility] ID Date Data Source [id number] 12/25/2019 01:40:56 PM EDT [facility] Name Value Range Interpretation Code Description Data Lynn rce(s) Supporting Document(s) Albumin [Mass/volume] in Serum or Plasma by Bromocresol green (BCG) dye binding method 4.2 g/dL 3.5-5.2 [facility] Bil[facility].total [Mass/volume] in Serum or Plasma 0.4 mg/dL <1.2 [facility] Calcium [Mass/volume] in Serum or Plasma 9.9 mg/dL 8.6-10.0 [facility] Chloride [Moles/volume] in Serum or Plasma 99 mmol/L 98-107 [facility] Creatinine [Mass/volume] in Serum or Plasma 1.59 mg/dL 0.50-0.90 [facility] Glucose [Mass/volume] in Serum or Plasma 159 mg/dL 70-140 [facility] Alkaline phosphatase [Enzymatic activity/volume] in Serum or Plasma 64 U/L 35-104 [facility] Potassium [Moles/volume] in Serum or Plasma 4.6 mmol/L 3.4-5.1 [facility] Protein [Mass/volume] in Serum or Plasma 6.9 g/dL 6.4-8.3 [facility] Sodium [Moles/volume] in Serum or Plasma 135 mmol/L 136-145 L [facility] Aspartate aminotransferase [Enzymatic activity/volume] in Serum or Plasma 24 U/L <32 [facility] Urea nitrogen [Mass/volume] in Serum or Plasma 22 mg/dL 6-20 [facility] Osmolality of Serum or Plasma by calculation 287 mosm/kg 275-300 [facility] Creatinine/Urea nitrogen [Mass Ratio] in Serum or Plasma 14 [facility] Bicarbonate [Moles/volume] in Serum 22 mmol/L 22-29 [facility] Alanine aminotransferase [Enzymatic activity/volume] in Seru m or Plasma 22 U/L <33 [facility] Anion gap 3 in Serum or Plasma 14 mmol/L 8-15 [facility] Glomerular filtration rate/1.73 sq M pre dicted among non-blacks [Volume Rate/Area] in Serum or Plasma by Creatinine-based formula (MDRD) 36 mL/min/1.73m2 >60 L [facility] Glomerular filtration rate/1.73 sq M pre dicted among blacks [Volume Rate/Area] in Serum or Plasma by Creatinine-based formula (MDRD) 42 mL/min/1.73m2 >60 L [facility] ID Date Data Source [id number] 12/25/2019 01:40:56 PM EDT [facility] Name Value Range Interpretation Code Description Data Lynn rce(s) Supporting Document(s) Thyrotropin [Units/volume] in Serum or Plasma 21.060 u[IU]/mL 0.270-4 .200 [facility] ID Date Data Source [id number] 12/04/2019 12:26:02 PM [facility] Name Value Range Interpretation Code Description Data Lynn rce(s) Supporting Document(s) Progress Note [facility] VLAZQj7uGgNQNnJc23/JMNqfPQSva3FyVDzuSDl8NKdzJTGlG1XlLNS9qP8wZWZ1CEoXXwVtKlAbMZY5 lbm [file] kUWxBXRmWDYK6sWyUrUaHIJYrbP29l5beoe0Td3oqiM8WI/jWSjTP/r8NoqK/N0X0f/Color Coater/inw3cu77EF [file] AgICAgICAgICAgICAgICAgICAgICAgICAgICAgICAg ICAgICAgICAgICAgICAgICAgICAgICAgICAgDQogICAgICAgICAgICAgICAgICAgICAgICAgICAgICAg ICAgICAgICAgICAgICAgICAgICAgICAgICAgICAgICAgICAgICAgICAgICAgICAgICAgICAgICAgICAg ICAgICAgICAgDQogICAgICAgICAgICAgICAgICAgIC AgICAgICAgICAgICAgICAgICAgICAgICAgICAgICAgICAgICAgICAgICAgICAgICAgICAgICAgICAgIC AgICAgICAgICAgICAgICAgICAgDQogICAgICAgICAgICAgICAgICAgICAgICAgICAgICAgICAgICAgIC AgICAgICAgICAgICAgICAgICAgICAgICAgICAgICAg ICAgICAgICAgICAgICAgICAgICAgICAgICAgICAgDQogICAgICAgICAgICAgICAgICAgICAgICAgICAg ICAgICAgICAgICAgICAgICAgICAgICAgICAgICAgICAgICAgICAgICAgICAgICAgICAgICAgICAgICAg ICAgICAgICAgICAgDQogICAgICAgICAgICAgICAgIC AgICAgICAgICAgICAgICAgICAgICAgICAgICAgICAgICAgICAgICAgICAgICAgICAgICAgICAgICAgIC AgICAgICAgICAgICAgICAgICAgICAgDQogICAgICAgICAgICAgICAgICAgICAgICAgICAgICAgICAgIC AgICAgICAgICAgICAgICAgICAgICAgICAgICAgICAg ICAgICAgICAgICAgICAgICAgICAgICAgICAgICAgICAgDQogICAgICAgICAgICAgICAgICAgICAgICAg ICAgICAgICAgICAgICAgICAgICAgICAgICAgICAgICAgICAgICAgICAgICAgICAgICAgICAgICAgICAg ICAgICAgICAgICAgICAgDQogICAgICAgICAgICAgIC AgICAgICAgICAgICAgICAgICAgICAgICAgICAgICAgICAgICAgICAgICAgICAgICAgICAgICAgICAgIC AgICAgICAgICAgICAgICAgICAgICAgICAgDQogICAgICAgICAgICAgICAgICAgICAgICAgICAgICAgIC AgICAgICAgICAgICAgICAgICAgICAgICAgICAgICAg OJVnNABpIMUcHHJoADLgSFDiPLLmZBSqIXUdKOArDYZnAAEdILx9Q4anZQKgRLBnLZ7qIJt8Uk3+DQoN LxVoKTT8iqItzZ9MQD6jw1OaANjuGETyp7MiTTk2CP8ESQEkHHugTW7JWChgqi5QEKXoXXVlzHCPo5fd JbOzMDQ6GGQwEivyGK3NRXBdY0jmusWhLKWxXVBXIA vuCAPEOTgaESTSTTTxPHQxMfVlHLhaGH2Oz7IuuJA3APj+Uy6QGM9yl6HwOSabINRxAS3kom8OEQwQMh MqH0MgyrQ0FFUgIVJwKy7KURCdOTDhoLAzAuBxPBTIDqFkA5TynJ82KFUUZn2+DQplbmRvYmoNCjMyID Nyx5PaYQk3VU7UVXKiOQl0kBWtSGZaB8Zlo3ChNv54 TQDkPyriO6NsvNTzBoBEed72uqpiIVTbHLZePGAcCO2jHLMaNMPzElC8SRGQNQ4FFSJtIPFpgMTfDNMb PPTMUA1SWNzmKKW6JQJpotEvmBRdKXjsFP4ISEXgctYeTuAjDDCTIEb+Ef0QYX0oj0XpAKduJqBpBM4n yp9XQFjTEdIvM6A7hBMwF2H4GVddGq6SQMGpXZOwLu aaMXPGGEkrAG6GQD3hggV8TK0JoMGdOURwCDYmtSFgQKp4D96wfXBrDPazYS0GUOL+Antelmo+Og1NIVXfYU GuUOInKkYkXMNVYoKvV4GnM5GMe8YtM7GhII20zXenaiWeOQrvZT9NPQ7vDUYsCYNVMW3JjRYqpK7zjy QpKSJkTNUMNnDqD24daWUsONHaLUCwBPNxDt9WBSLb N3MyzbJaxLojlcHdHPGeEAXKAN7XNVkgpiMvhORlcAvyVO14xUmyON2RSi2JPxKhAG3gsb0TzMSlLj3T IYZrMG1WBTEsNJXvMZCoMJU6TZQrGrOgSJmhNYWlEZWpLJX5IUMxLVKzCN8DGkFzVLIhBwv1RVFoDNRm MMFdyq6MHNAkRKBiIFN3QbMsFCPtMBIbZBxdMTVpXX DdXQN9KHWmGYRrOJ9FXdWkQAHzIGN0PEOcJHGlFKEdoi2OXZJlRWVbEKN4CHGyLTCrUCPoQAxeTAHkKQ X7BQP7MSKqEVGcVU9AYcPaXUYoNQy3KZxdAGQcWQUbvb4ACWYcRQPuFCpkKyRcCHSjRVTxHEnbZHXuZJ JkSVD5VPTwJJMdOL8PFtEgUZJiYVT7BEDjZKUxFLCm mo3HPTSmIWUpBcA4QBYmNGCfUGQcKBxdRUZxRPBhFXH3RJZrFLUbVC1TFsWsNXDxPWVsYSCrUKSoVTXg ma1EFIAlDQEcShU3CEOjJHWcISFvKFjjITYlABW0PXY6FQEnNGLdCD2MMqWxDWBrVON7TMsxILFhXJJk sn3LQPGaHPRmXDyoQoNtCSJnQHLzRHlaDFYcAOD9Ef W2UTBpZADyXR4OOfXcIEOzLjJ5PHIxGBVsQQUlpz2FMZKuMTDfLrqgDUTcJDSwMFOvJTeoVZXbBEZ8WN KeBLZyTROuOS1ZUqNhJGWoAppzIQugBHIoZMWugo4PQZBnLMUtLKC2PRMmWABbRARuMIbcLBJnHFG3Jc WjKNRrWTAhWC8UNmSbBHLgCwd8ODndVXUtBKUuuz6M FHNnATWaMVL6XeSmVXBjPEOcORbwXIOgLJR5TxKdNSSpUZHaZL8XZiJqVMIhTbh9HHfsYLGwZJZjhp3A AGZpBSDwYIH2IwBzASZjOTPtCRhwXOYuWLQtTyQ4HOExDRIeWU3DAfXoEAZqZpE9KWMcZFNgMWFmjs2H LLWbUUXeDEdxBTTnQKJpIUNkDRm7geEvwAUzTNk1UB 8KP1IzexLzXoQWMk4Rh148AZFcYGLnQs0UW2unSo7zJXHpRZUQYm7ITWo3RYTqQTI3FVg7TIO6DUN0PN FhZTFiOTExNzZkMjUzNjM+FLd6QbJ1YXf1YDHdMZPmEfRpQZBfGIG3BRC2CbByOEO9Uo4xZHUADl3+DQ yxaJWifDgoKZWAUrRrKGnhWKzoXJBJOn8R ID Date Data Source [id number] 12/04/2019 11:52:57 AM EDT [facility] Name Value Range Interpretation Code Description Data Lynn rce(s) Supporting Document(s) Leukocytes [#/volume] in Blood by Automated count 7.8 10*3/uL 4-10 [facility] Erythrocytes [#/volume] in Blood by Automated count 3.99 10*6/uL 4.1- 5.3 L [facility] Hemoglobin [Mass/volume] in Blood 13.6 g/dL 11.5-15.5 [facility] Hematocrit [Volume Fraction] of Blood by Automated count 40.0 % 3 6-45 [facility] Erythrocyte mean corpuscular volume [Entitic volume] b y Automated count 100.4 fL 80-96 H [facility] Erythrocyte mean corpuscular hemoglobin [Entitic mass] by Automated count 34.2 pg 27-33 H [facility] Erythrocyte mean corpuscular hemoglobin concentration [Mass/volume] by Automated count 34.0 g/dL 32.0-36.[facility] width [Ratio] by Automated count 14.5 % 11.5-14.5 [facility] Platelets [#/volume] in Blood by Automated count 212 10*3/uL 150-400 [facility] Differential cell count method - Blood [facility] Neutrophils/100 leukocytes in Blood by Automated count 67 % [facility] Lymphocytes/100 leukocytes in Blood by Automated count 24 % [facility] Monocytes/100 leukocytes in Blood by Automated count 6 % [facility] Eosinophils/100 leukocytes in Blood by Automated count 2 % [facility] Basophils/100 leukocytes in Blood by Automated count 1 % [facility] Neutrophils [#/volume] in Blood by Automated count 5.18 10*3/uL 1.8-7 .0 [facility] Lymphocytes [#/volume] in Blood by Automated count 1.88 10*3/uL 1.2-4 .0 [facility] Monocytes [#/volume] in Blood by Automated count 0.50 10*3/uL 0-0.8 [facility] Eosinophils [#/volume] in Blood by Automated count 0.13 10*3/uL 0-0.5 [facility] Basophils [#/volume] in Blood by Automated count 0.08 10*3/uL 0-0.2 [facility] Nucleated erythrocytes/100 leukocytes [Ratio] in Blood by Automated count 0 /100{WBCs} 0-0 [facility] ID Date Data Source [id number] 12/04/2019 12:33:03 PM EDT [facility] Name Value Range Interpretation Code Description Data Lynn rce(s) Supporting Document(s) Albumin [Mass/volume] in Serum or Plasma by Bromocresol green (BCG) dye binding method 4.3 g/dL 3.5-5.2 [facility] Bilirubin.total [Mass/volume] in Serum or Plasma 0.3 mg/dL <1.2 [facility] Calcium [Mass/volume] in Serum or Plasma 9.5 mg/dL 8.6-10.0 [facility] Chloride [Moles/volume] in Serum or Plasma 99 mmol/L 98-107 [facility] Creatinine [Mass/volume] in Serum or Plasma 1.31 mg/dL 0.50-0.90 H [facility] Glucose [Mass/volume] in Serum or Plasma 192 mg/dL 70-140 H [facility] Alkaline phosphatase [Enzymatic activity/volume] in Serum or Plasma 71 U/L 35-104 [facility] Potassium [Moles/volume] in Serum or Plasma 4.1 mmol/L 3.4-5.1 [facility] Protein [Mass/volume] in Serum or Plasma 6.8 g/dL 6.4-8.3 [facility] Sodium [Moles/volume] in Serum or Plasma 133 mmol/L 136-145 L [facility] Aspartate aminotransferase [Enzymatic activity/volume] in Serum or Plasma 21 U/L <32 [facility] Urea nitrogen [Mass/volume] in Serum or Plasma 12 mg/dL 6-20 [facility] Osmolality of Serum or Plasma by calculation 281 mosm/kg 275-300 [facility] Creatinine/Urea nitrogen [Mass Ratio] in Serum or Plasma 9 [facility] Bicarbonate [Moles/volume] in Serum 25 mmol/L 22-29 [facility] Alanine aminotransferase [Enzymatic activity/volume] in Seru m or Plasma 20 U/L <33 [facility] Anion gap 3 in Serum or Plasma 9 mmol/L 8-15 [facility] Glomerular filtration rate/1.73 sq M pre dicted among non-blacks [Volume Rate/Area] in Serum or Plasma by Creatinine-based formula (MDRD) 46 mL/min/1.73m2 >60 L [facility] Glomerular filtration rate/1.73 sq M pre dicted among blacks [Volume Rate/Area] in Serum or Plasma by Creatinine-based formula (MDRD) 53 mL/min/1.73m2 >60 L [facility] ID Date Data Source [id number] 12/04/2019 12:33:03 PM EDT [facility] Name Value Range Interpretation Code Description Data Lynn rce(s) Supporting Document(s) Thyrotropin [Units/volume] in Serum or Plasma 33.720 u[IU]/mL 0.270-4 .200 H [facility] ID Date Data Source [id number] 11/19/2019 01:19:41 PM EDT [facility] Name Value Range Interpretation Code Description Data Lynn rce(s) Supporting Document(s) Progress Note [facility] GKXNIb5zZkZUEtBn63/PVLcvTIEql7VhYOlvVWj8UFktNYSfE1VfVVG4eJ8pIXE4RYfOXsJoWsQkSHEg lbm [file] AgICAgICAgICAgICAgICAgICAgICAgICAgICAgICAg ICAgICAgICAgICAgICAgICAgICAgICAgICAgICAgICAgICAgICAgICAgICAgICAgICAgICAgICAgICAg HTTeEKFzXC6ZKUAoJJCsMKPzVAOcHEEzKELaCVUyXBZlEZItPZOpKKUjQNDtQYBrZVRdPIJiYQQwPNWv ICAgICAgICAgICAgICAgICAgICAgICAgICAgICAgIC DpBBZeAODqRNQfSOWsCPJaMQ5XIPQuHVJpIHHyXZRwHUPxLCUjTVFfSFOvZLEiSNMnIYEuOTTiZYAcII AgICAgICAgICAgICAgICAgICAgICAgICAgICAgICAgICAgICAgICAgICAgICAgICAgICAgICAgICAgIA 0KICAgICAgICAgICAgICAgICAgICAgICAgICAgICAg ICAgICAgICAgICAgICAgICAgICAgICAgICAgICAgICAgICAgICAgICAgICAgICAgICAgICAgICAgICAg YHHeFGTbPCZrSY2UHWZdKTMmHMCnHMQyRVCjVULfUHJoERShIABsFXAlQJKnKOUiFEVgXEKgENUiHNCs ICAgICAgICAgICAgICAgICAgICAgICAgICAgICAgIC MpFREmZVKbBZPzMPHvHYOrZSIzOL4DPAWfFPKnCQYpPYEhGOHyBECeOESiHIThBJVpPSIgIYEdYZMiMT AgICAgICAgICAgICAgICAgICAgICAgICAgICAgICAgICAgICAgICAgICAgICAgICAgICAgICAgICAgIC AmCC8AXBRfEIQxEJPwQFMsUODuBEIvUGNyRELkWUZk ICAgICAgICAgICAgICAgICAgICAgICAgICAgICAgICAgICAgICAgICAgICAgICAgICAgICAgICAgICAg NPImSZBgSOGzWDAfKZ5OGSWdRICzSUFlWUTpRNQyWSNrPWMyHGWaAVQtNQPoCFIoZGGuECVvSCOsRONx ICAgICAgICAgICAgICAgICAgICAgICAgICAgICAgIC IlNBCyEYCkJYSeMEIbIAAiXPXiSIHbUU7DMYSwIOYfFBNtMTMzWESaHAJyQHAuHGOaJASaJDNsISOdUK AgICAgICAgICAgICAgICAgICAgICAgICAgICAgICAgICAgICAgICAgICAgICAgICAgICAgICAgICAgIC NeJRSkVY9BSEUsUKHeHUAeYATzHZKlYBXaWRDjXQSk ICAgICAgICAgICAgICAgICAgICAgICAgICAgICAgICAgICAgICAgICAgICAgICAgICAgICAgICAgICAg AFGqVPJpFZJoVTMlLIWiGZ8CBH99iIZjc3J9USKhUO9sfep/Fz3RRWianbTnvZVfOS4LEwWfVA2vxh2Z UkCmNN4mch5SHNcKAsUbB8A0oTWeKPQlABLSUkKaC2 2aHRomOs58ESntWOMpEiAlCZq4Zh6ZZxKoQ1seOREzWyL4IZTwNdW9CDMaQoR1QIQpDbCbESdlAG0Wi6 VudCAzDQo+Vd2BPU0nn5YsANqbSnSuOJ1ggj0HFOgMSvRvG1YenhE2CUA7ADArMe8EZLFlZQBypVCcYI BgRHGPUjVyF8MeeZ87UIDKWq8+DQplbmRvYmoNCjI0 XZRoz8YjKEr9OT3MMUVmSHm7kPTdDFNuZ5Cxp2EjFl59PRFuBipcOPafoCVzsZXYTB8wrCffSGNkHOOp FZ1gNa0hSPNwBVKwEvAzXAKYMA7ESLAiPFKehBJsWTCdNJOJRL5TCEedKFA2XXJcpxVueQNzNKsfHB2M YXJlbnQgMjMgMCBSDQo+Rt6RGE9gn0ZpYWicODPnJW 4ask2NWUeNPzUxI3T8jZEhW5N7THwbTr1EKFKvQSFdOoWcIDGUCDszEG8ZKZ1tzfY6JU1OqBUcMFTuSE PjzHCsQKl2L65ioNFtPOjwGO3XSVC+Antelmo+Xj8FYWCfAIVsJXXuHeOhWGKBRcPyA9EdL9CHc0JgK7WsPQ 34gZxixfSgXUqpVL4ZQD7oAANuZAYNQV3TdILhcM0v niFkGpDcNAFMNiRrQ32dmVSvNQRqBMKmPTYsNa4KZXTrH1GnjwYzkFxujkAhKCFrZMRCJA5MGNrwxnCa eJRlvSlkYJ54sCexUB9RWh8XAtAeEW1fzj1WrOGnHx7UTBJvHq6HIBJoJFJvHKZjAQQ8CNQiMsHvJTdl LPOeGYOcGYD5FJWtKPTkOC5YIlCeCEPzZgJ1GeGpPB DkTKIjjd0GVORwDJEyYcO2ODBhRBBaBCVsLDpvKTNwOYNiDYP1IPFeHDXdQT1UOiNoQNQwHJT3KgRuRG InAMWrrw1PDCSqHFAhUNK2QMHuCIWzPFLoFQzcHYAbERC2KDVuOPRgYUTxWN2HEcWuLZKrWIlkIzBgQE PuQZEbow1HEBDxVFKvUHN1XwTkXWAoXADfMAwnPAFp KXOpZpNjKGIkOXYuZI3NBjPjNGWbNEF1QuGaHIUxOXMdnu5FHDIlHVJrNGw4YnGnDBUgULNwSRogABJm XNMyZBAmYKDfQDYnRB5SAwEnTXZnRXQ9TJekBEQwOTUtzo0PHQTiAQZsXcAsCCYoUHSxOINhYRmtTQJd RCNrJae7MEUrQUXkZH5UUzHtAFYwNdG8UBkvEJFmNV Cycz2GIMEaERAyGSB2RTIdTJUsREEhMJliZPIwLGH2EmIpZBQuBCHmFK7BUiMkTVCgXqQ8OHAbVLAqNJ Jooa5CVMCsXQPiSUQ8PZHwKXKaXPMrWAjeMJAqGRU3TKNbFECfLAUbUV2LIjDuESWbGsv3ZNBhMEFpXS Zkfx7SRDNrBCKqCaL9CJKcOZIoOIMuFDinXIJrOEY1 ObR1WMAnMNWfEX7CNzIyPWylUKYKJtk8REaxF5q8BLLoCb2HF8Qdh1KvKcJcMDEZKHiuDA8vxaYyVZTp Hd4PM4lPOdt1UoPvJnE6UBVtRmKxKzNsHHOzPSigGwZ7FiKfGkF1Xc1tKJb8ZxEfWFNdVEPqXGEoFGL8 MeXcV9D9OGQzOoN8GbAmVfFfVF5FSu6MRdP6RZD9aVVpXt1UMxv5TrHNGxUiSE2QZJq= ID Date Data Source [id number] 11/17/2019 02:00:00 PM EDT [facility] ID Date Data Source [id number] 11/17/2019 02:00:00 PM EDT [facility] ([facility] Name Value Range Interpretation Code Description Data Lynn rce(s) Supporting Document(s) Aspartate aminotransferase [Enzymatic activity/volume] in Se rum or Plasma 20 15-37 [facility] ([facility]) Albumin 3.8 3.2-5.2 [facility] Alanine aminotransferase [Enzymatic activity/volume] i n Serum or Plasma 35 30-65 [facility] Alk Phos 80 50-136 [facility] Total Bilirubin 0.5 0.0-1.0 [facility] A/G Ratio 1.0 1.00-1.93 [facility] Total Protein 7.5 6.4-8.2 [facility] ([facility] ID Date Data Source [id number] 11/15/2019 08:47:36 AM EDT [facility] Name Value Range Interpretation Code Description Data Lynn rce(s) Supporting Document(s) Progress Note [facility] DCZACi0fTxFXYlWd16/NYUcyUSUpf4LyKDhgLLl8VJuiIEAhB2YvOIB9hI4dYOT4DNoTLpHyBnYaUCU8 lbm [file] I+UC9pBEu+Aj0Rc3RlkkV4syVcJTxjPTM4KJ1MRQUKM9OBDb== ID Date Data Source [id number] 11/15/2019 08:47:26 AM EDT [facility] Name Value Range Interpretation Code Description Data Lynn rce(s) Supporting Document(s) Progress Note [facility] MDWJKr4jYfRGYuMk41/LHTajYTChn1NnFUpfXPu4VHrkVMJuM5DnKDH8tB8pWFW5GTiLNeGzIsObKOD6 lbm [file] //public policy associate+EdkySnJrEqmvnBeBMIWK7eLqAEcmRqkjK28AYceVA5j5pKn/kJOn/uE5VN+6oUuZPtNMcUrP8I [file] ICAgICAgICAgICAgICAgICAgICAgICAgICAgICAgICAgICAgICAgICAgICAgICAgICAgICAgICAgICAg ICAgICAgICAgICAgICAgICAgICAgICAgICANCiAgIC AgICAgICAgICAgICAgICAgICAgICAgICAgICAgICAgICAgICAgICAgICAgICAgICAgICAgICAgICAgIC AgICAgICAgICAgICAgICAgICAgICAgICAgICAgICAgICAgICANCiAgICAgICAgICAgICAgICAgICAgIC AgICAgICAgICAgICAgICAgICAgICAgICAgICAgICAg ICAgICAgICAgICAgICAgICAgICAgICAgICAgICAgICAgICAgICAgICAgICAgICANCiAgICAgICAgICAg ICAgICAgICAgICAgICAgICAgICAgICAgICAgICAgICAgICAgICAgICAgICAgICAgICAgICAgICAgICAg ICAgICAgICAgICAgICAgICAgICAgICAgICAgICANCi AgICAgICAgICAgICAgICAgICAgICAgICAgICAgICAgICAgICAgICAgICAgICAgICAgICAgICAgICAgIC AgICAgICAgICAgICAgICAgICAgICAgICAgICAgICAgICAgICAgICANCiAgICAgICAgICAgICAgICAgIC AgICAgICAgICAgICAgICAgICAgICAgICAgICAgICAg ICAgICAgICAgICAgICAgICAgICAgICAgICAgICAgICAgICAgICAgICAgICAgICAgICANCiAgICAgICAg ICAgICAgICAgICAgICAgICAgICAgICAgICAgICAgICAgICAgICAgICAgICAgICAgICAgICAgICAgICAg ICAgICAgICAgICAgICAgICAgICAgICAgICAgICAgIC ANCiAgICAgICAgICAgICAgICAgICAgICAgICAgICAgICAgICAgICAgICAgICAgICAgICAgICAgICAgIC AgICAgICAgICAgICAgICAgICAgICAgICAgICAgICAgICAgICAgICAgICANCiAgICAgICAgICAgICAgIC AgICAgICAgICAgICAgICAgICAgICAgICAgICAgICAg ICAgICAgICAgICAgICAgICAgICAgICAgICAgICAgICAgICAgICAgICAgICAgICAgICAgICANCiAgICAg ICAgICAgICAgICAgICAgICAgICAgICAgICAgICAgICAgICAgICAgICAgICAgICAgICAgICAgICAgICAg ICAgICAgICAgICAgICAgICAgICAgICAgICAgICAgIC AgICANCjw/hRUtH9wvdDKpqzU2O8mlHm5EHb0CQV8ye2KhVPLwOVgzipIsIhlESxWoNOXtQutYCyv3PN yqKE6AjNIaE0KpS6RsUTsaMK2YTOIxEHKgdHKlFNPyZNDuRuB5BTZjSMhuLY4PuISgXDxfSZXpIAZnOt KsNIYvFWMaNDVuTDXyGTPXUUPqHFKrNdIgHTgvNC3D z5ZyvQU4KGb+Oc5XUN6mi2EySQqrQnEqEF7dnl6JZSdVKsIdN8NbfcU7DMD8ETRgLy2PRVVkSTBdfJPo JQOeCMESLzQpJ4DiaZ61IOMOTz4+HMorfaFzVgiGJuJ1ZSZua3MzVWw8JL9SFYYzTXy7aAYgEHUzU5Iq k0RyMb19AIDxStvzTGusrIHJMW1rZNvfMCWpCOXaPU 1kMr0xQRGoNLTwBgP1FTCDLV9LBHRkHNAqcDWmECQyHTLIDE6GPEscFMO3AQAieqHbqJRbPIbfNB7XGR JlbnQgMzMgMCBSDQo+Hg5DPQ0og4JfAPdlIHCqDI6hkb6BCPvCUfIzP3A9lCJwX4Y8FHegGc5WJLZjUI FkDuObSPYIIYweYI2NED9nxoQ2UF7GgFXuGBCxPMGj uEDaAYz8A83olGAzXPlsOH8YPEE+Antelmo+Pn8YTXYvBPYbCNWqNaFtUVLZTfMmJ2CqR6WDv4KzO2KzOJ20 oStmljUoTDkoOC1SUG1dAMWwKVXTWV9YrGZdhN6lhgHgOzHpVORBVcAmO93hlBRkVPZaOVOxCMTxXw3P JMHcT0MinoPfbVrlxyMmHDBrJIVUGT2NZCcezoNixR EbgGnbOK26oGxnOR7HEa1FKcVaSI8vsh1PeRTxXn9OASBqGx4NUOZpMUEzHZGyYUU0LQLwHbXeRNqdZR ExBSNhELC4OJGiXZDfUZ5QAxFtNGIyCiB0REVsGXDkUOAhzz8YVLGoQSEiQQA4BoJjQOHqVAZsWNvyGF HeSYIvOYL9ASEySJXjRQ5JYtHtJZUxMFIaLtfhWKAu POLprt7BVHWvNMZnDNU4SwYeRGQoDOZhPHnlAKZmGFI8UALfVQAhNYIyRV3ALgRjLZXcUPo9RzmzGTOi YRBxmt7HNFUmKFMtNFEjWQMhQFCbTAXdWNswSCTjAKYnRNIkJNUjCNPlAB2VIvPzDXJvCAT7ObobZAKc TYKhra9PVSZjYAQcKls2SAXgZHUbPNFuCImxIEMcXZ D0Xdj6RKXcDQBoPL4IEyPdOOAxAKP1FMMhETPjOQMjmt4KFNCzXQUyZwc7CQAzXAIdYONsUQrrNMNkBK M9PNLjNCXrCXJhIS8SDaFxGXJwYPrmXzYiMQMoHJEpnm3OSJUaPILfVOM7XgGsDZDgGXUeRHoxBOQoTS W5Tkq4FQLgBRGhQP5YWaUaDBYmZGk5ZTIxGQJeOZGw nz1TRFPjKUSxXNRxCjVdRDUpZPNlFIqnPFMdRKQqHjD2PHWhIBMfXM2QInXpHMNhXoO1LTpjJWKgCOFl zx1FNXEjVJNdYYl0BhReFPHlAETwFLxpMJZbOADbJCBfFGQqDDKoWL0WKzVmHDDtKcH1PKVwMJLiRBCo xq3VZMNtDYWxZyC0UaEgUJCaVTKrUYpqSXXhNSIkRp W1YZGvFQEpUV6MQgZxULWiLbBiHIreKYVlHTHncd8NYANjANGySyX8BUJeHUGbDBRuURfpYFMsXUBiPL q2YQKfIBWbPD0MAtDtNBBoKqMiDTquDZIyOZKulx6DRSDaWBMyAZR7JCAcXXHvISNgDSssPEZeOYM7PQ LfAVDjSVSmRW1OBjXgLLOiPoK4APbkKKFjAXLeld2U nXDysOctkz6JNTlYWd2HoQnbNSU4DTdpKk7prYCmJKSnQKUXSm3WgrIuLYNdTJZUQGmyARLzMPv8DXRe LfQ4APEuBDukPBAdILY2GJU1QHU2EROcFcT4AsV5JSLxB5McDZR8LHGxJBK5HbDnQpJ7HjV8IQemOMGg NDc+ZJ6vBCt+Ht7Ke4WfazK1khSsINmgXUdeWY1IQEJHF8PKDm== ID Date Data Source [id number] 11/13/2019 02:07:22 PM EDT [facility] XR CHEST FRONTAL ONLY [id number] RESULTI nterpreted by:Edwardo Montaño MDINDICATION: 54-year-old female, [...] rce(s) Supporting Document(s) ID Date Data Source [id number] 11/13/2019 11:44:07 AM EDT [facility] Name Value Range Interpretation Code Description Data Lynn rce(s) Supporting Document(s) Leukocytes [#/volume] in Blood by Automated count 5.3 10*3/uL 4-10 [facility] Erythrocytes [#/volume] in Blood by Automated count 3.77 10*6/uL 4.1- 5.3 L [facility] Hemoglobin [Mass/volume] in Blood 13.0 g/dL 11.5-15.5 [facility] Hematocrit [Volume Fraction] of Blood by Automated count 37.9 % 3 6-45 [facility] Erythrocyte mean corpuscular volume [Entitic volume] b y Automated count 100.5 fL 80-96 [facility] [facility] Erythrocyte mean corpuscular hemoglobin [Entitic mass] by Automated count 34.3 pg 27-33 [facility] Erythrocyte mean corpuscular hemoglobin concentration [Mass/volume] by Automated count 34.2 g/dL 32.0-36.0 [facility] al Erythrocyte distribution width [Ratio] by Automated count 14.1 % 11.5-14.5 [facility] Platelets [#/volume] in Blood by Automated count 161 10*3/uL 150-400 [facility] Differential cell count method - Blood [facility] Neutrophils/100 leukocytes in Blood by Automated count 54 % [facility] Lymphocytes/100 leukocytes in Blood by Automated count 35 % [facility] Monocytes/100 leukocytes in Blood by Automated count 8 % [facility] Eosinophils/100 leukocytes in Blood by Automated count 2 % [facility] Basophils/100 leukocytes in Blood by Automated count 1 % [facility] Neutrophils [#/volume] in Blood by Automated count 2.84 10*3/uL 1.8-7 .0 [facility] Lymphocytes [#/volume] in Blood by Automated count 1.88 10*3/uL 1.2-4 .0 [facility] Monocytes [#/volume] in Blood by Automated count 0.43 10*3/uL 0-0.8 [facility] Eosinophils [#/volume] in Blood by Automated count 0.10 10*3/uL 0-0.5 [facility] Basophils [#/volume] in Blood by Automated count 0.05 10*3/uL 0-0.2 [facility] Nucleated erythrocytes/100 leukocytes [Ratio] in Blood by Automated count 0 /100{WBCs} 0-0 [facility] ID Date Data Source [id number] 11/13/2019 12:29:07 PM EDT [facility] Name Value Range Interpretation Code Description Data Lynn rce(s) Supporting Document(s) Albumin [Mass/volume] in Serum or Plasma by Bromocresol green (BCG) dye binding method 4.0 g/dL 3.5-5.2 [facility] al Bilirubin.total [Mass/volume] in Serum or Plasma 0.2 mg/dL <1.2 [facility] Calcium [Mass/volume] in Serum or Plasma 9.1 mg/dL 8.6-10.0 [facility] Chloride [Moles/volume] in Serum or Plasma 98 mmol/L 98-107 [facility] Creatinine [Mass/volume] in Serum or Plasma 1.33 mg/dL 0.50-0.90 [facility] Glucose [Mass/volume] in Serum or Plasma 215 mg/dL 70-140 [facility] Alkaline phosphatase [Enzymatic activity/volume] in Serum or Plasma 70 U/L 35-104 [facility] Potassium [Moles/volume] in Serum or Plasma 4.2 mmol/L 3.4-5.1 [facility] Protein [Mass/volume] in Serum or Plasma 6.9 g/dL 6.4-8.3 [facility] Sodium [Moles/volume] in Serum or Plasma 133 mmol/L 136-145 [facility] Aspartate aminotransferase [Enzymatic activity/volume] in Serum or Plasma 21 U/L <32 [facility] Urea nitrogen [Mass/volume] in Serum or Plasma 13 mg/dL 6-20 [facility] Osmolality of Serum or Plasma by calculation 283 mosm/kg 275-300 [facility] Creatinine/Urea nitrogen [Mass Ratio] in Serum or Plasma 9 [facility] Bicarbonate [Moles/volume] in Serum 25 mmol/L 22-29 [facility] Alanine aminotransferase [Enzymatic activity/volume] in Seru m or Plasma 21 U/L <33 [facility] Anion gap 3 in Serum or Plasma 11 mmol/L 8-15 [facility] Glomerular filtration rate/1.73 sq M pre dicted among non-blacks [Volume Rate/Area] in Serum or Plasma by Creatinine-based formula (MDRD) 45 mL/min/1.73m2 >60 [facility] Glomerular filtration rate/1.73 sq M pre dicted among blacks [Volume Rate/Area] in Serum or Plasma by Creatinine-based formula (MDRD) 52 mL/min/1.73m2 >60 [facility] ID Date Data Source [id number] [facility] Value Range Interpretation Code Description Data Lynn rce(s) Supporting Document(s) Thyrotropin [Units/volume] in Serum or Plasma 34.900 u[IU]/mL 0.270-4 .200 [facility] ID Date Data Source [id number] 10/28/2019 09:02:08 AM [facility] Name Value Range Interpretation Code Description Data Lynn rce(s) Supporting Document(s) Progress Note [facility] GTEAXz6lWhHPFcQf47/OXFamRPXvh2QkPLwvKKg2VJnbHPKqE2PwYLH5bV6mAIN6GQdMGfRnBjGsRRSb lbm [file] ID Date Data Source [id number] 10/23/2019 12:14:03 PM T [facility] Name Value Range Interpretation Code Description Data Lynn rce(s) Supporting Document(s) Leukocytes [#/volume] in Blood by Automated count 10.7 10*3/uL 4-10 [facility] Erythrocytes [#/volume] in Blood by Automated count 3.96 10*6/uL 4.1- 5.3 L [facility] Hemoglobin [Mass/volume] in Blood 13.9 g/dL 11.5-15.5 [facility] Hematocrit [Volume Fraction] of Blood by Automated count 40.5 % 3 6-45 [facility] Erythrocyte mean corpuscular volume [Entitic volume] b y Automated count 102.4 fL 80-96 [facility] Erythrocyte mean corpuscular hemoglobin [Entitic mass] by Automated count 35.0 pg 27-33 [facility] Erythrocyte mean corpuscular hemoglobin concentration [Mass/volume] by Automated count 34.2 g/dL 32.0-36.[facility] [Ratio] by Automated count 14.5 % 11.5-14.5 [facility] Platelets [#/volume] in Blood by Automated count 201 10*3/uL 150-400 [facility] Differential cell count method - Blood [facility] Neutrophils/100 leukocytes in Blood by Automated count 69 % [facility] Lymphocytes/100 leukocytes in Blood by Automated count 21 % [facility] Monocytes/100 leukocytes in Blood by Automated count 7 % [facility] Eosinophils/100 leukocytes in Blood by Automated count 2 % [facility] Basophils/100 leukocytes in Blood by Automated count 1 % [facility] Neutrophils [#/volume] in Blood by Automated count 7.35 10*3/uL 1.8-7 .0 [facility] Lymphocytes [#/volume] in Blood by Automated count 2.28 10*3/uL 1.2-4 .0 [facility] Monocytes [#/volume] in Blood by Automated count 0.75 10*3/uL 0-0.8 [facility] Eosinophils [#/volume] in Blood by Automated count 0.17 10*3/uL 0-0.5 [facility] Basophils [#/volume] in Blood by Automated count 0.15 10*3/uL 0-0.2 [facility] Nucleated erythrocytes/100 leukocytes [Ratio] in Blood by Automated count 0 /100{WBCs} 0-0 [facility] ID Date Data Source [id number] 10/23/2019 12:56:29 PM EDT [facility] Name Value Range Interpretation Code Description Data Lynn rce(s) Supporting Document(s) Albumin [Mass/volume] in Serum or Plasma by Bromocresol green (BCG) dye binding method 4.3 g/dL 3.5-5.2 [facility] Bil[facility].total [Mass/volume] in Serum or Plasma 0.2 mg/dL <1.2 [facility] Calcium [Mass/volume] in Serum or Plasma 9.5 mg/dL 8.6-10.0 [facility] Chloride [Moles/volume] in Serum or Plasma 98 mmol/L 98-107 [facility] Creatinine [Mass/volume] in Serum or Plasma 1.17 mg/dL 0.50-0.90 [facility] Glucose [Mass/volume] in Serum or Plasma 289 mg/dL 70-140 [facility] Alkaline phosphatase [Enzymatic activity/volume] in Serum or Plasma 86 U/L 35-104 [facility] Potassium [Moles/volume] in Serum or Plasma 4.5 mmol/L 3.4-5.1 [facility] Protein [Mass/volume] in Serum or Plasma 7.3 g/dL 6.4-8.3 [facility] Sodium [Moles/volume] in Serum or Plasma 130 mmol/L 136-145 [facility] Aspartate aminotransferase [Enzymatic activity/volume] in Serum or Plasma 18 U/L <32 [facility] Urea nitrogen [Mass/volume] in Serum or Plasma 31 mg/dL 6-20 [facility] Osmolality of Serum or Plasma by calculation 287 mosm/kg 275-300 [facility] Creatinine/Urea nitrogen [Mass Ratio] in Serum or Plasma 27 [facility] Bicarbonate [Moles/volume] in Serum 22 mmol/L 22-29 [facility] Alanine aminotransferase [Enzymatic activity/volume] in Seru m or Plasma 26 U/L <33 [facility] Anion gap 3 in Serum or Plasma 10 mmol/L 8-15 [facility] Glomerular filtration rate/1.73 sq M pre dicted among non-blacks [Volume Rate/Area] in Serum or Plasma by Creatinine-based formula (MDRD) 53 mL/min/1.73m2 >60 [facility] Glomerular filtration rate/1.73 sq M pre dicted among blacks [Volume Rate/Area] in Serum or Plasma by Creatinine-based formula (MDRD) 61 mL/min/1.73m2 >60 [facility] ID Date Data Source [id number] [facility] Name Value Range Interpretation Code Description Data Lynn rce(s) Supporting Document(s) Thyrotropin [Units/volume] in Serum or Plasma 22.700 u[IU]/mL 0.270-4 .200 [facility] ID Date Data Source [id number] 10/21/2019 11:38:53 AM [facility] Name Value Range Interpretation Code Description Data Lynn rce(s) Supporting Document(s) Progress Note [facility] NYAEBq9lHjROLiZy18/LAVujXLYug7JjHJjiKEs2FZxeXPEbP5BiEQZ6jK5mOBX8UIgWFkYjBbQkDKD5 lbm [file] QiYcQX0FVy5HWuG6ZQS7oRJaIv6OMgNuIcOXMyGkHV2MKIc= ID Date Data Source [id number] 10/16/2019 09:36:00 AM EDT [facility] Name Value Range Interpretation Code Description Data Lynn rce(s) Supporting Document(s) Progress Note [facility] TINPKi5uYgVTZtUa34/EZLlxSLXtf4KwOQlpREx3SLgoMLMrY4VtAMW4xK2fSVO4FAbIOuKvFiXzVIHi lbm [file] NjYwYTIzOWY+OH5oHEh+Ph8Sf0RqflO3ixLkMMbmEHXsSf1NNSFHW2AQUb== ID Date Data Source [id number] 10/15/2019 05:19:44 PM EDT [facility] Name Value Range Interpretation Code Description Data Lynn rce(s) Supporting Document(s) Progress Note [facility] VIYQSx0uRaYEQySy72/PPWwcGKHki6FfCYspXNc0FGfjIDYnM5MeCTE2cS3zOYI3CElCFhFbFzBvUKS1 lbm [file] [id number]= ID Date Data Source [id number] 10/08/2019 06:10:48 PM EDT [facility] Name Value Range Interpretation Code Description Data Lynn rce(s) Supporting Document(s) Progress Note [facility] UKOPSx4pKaJCFpSf83/JRYuuPOMrh9HeAFxhTMh1OJrzKDEeK0KiQHZ7kX1yFUT9TOrXXrKlZvYwUCIg lbm [file] JESSI+JRvzAAkjqDm4gCHeQUCkEw2JJSErBPDdRQSmMA AgICAgICAgICAgICAgICAgICAgICAgICAgICAgICAgICAgICAgICAgICAgICAgICAgICAgICAgICAgIC FhLGBvOLAvKVBjKABlOTHnLAFdEKGyAVJcVAKrUG1NDQPwFSKxCWRrDWRmQVAeOLYeZARxUPJgSUFcTF AgICAgICAgICAgICAgICAgICAgICAgICAgICAgICAg IBZfPCJbVXLrOCSfKLXlNYInHZRbYYGlGSBpJQAqEYAsKLUkRLUqVW1MLYVnQAVrWUJwTHWtUFUnGPZf ICAgICAgICAgICAgICAgICAgICAgICAgICAgICAgICAgICAgICAgICAgICAgICAgICAgICAgICAgICAg MIMsDOGmMNSjLRGsGOVyVLArOSRlJM6RMVBlAVVmDY AgICAgICAgICAgICAgICAgICAgICAgICAgICAgICAgICAgICAgICAgICAgICAgICAgICAgICAgICAgIC EfZHJkHRSjQZWaRCLpHJXjRZZbSDDgGTQmFPRkLNHhLF2KZDSlSXRxAQHaIOWhJEFcOVGwJNQoPTKeXA AgICAgICAgICAgICAgICAgICAgICAgICAgICAgICAg PEBaKXWvNFHlZUOzTHOyVGKjFUGkRZUdICJnCLWgMRFoZMMuXATsCLGeTO5OLPAaIBHkCBYlTPVuMCPk ICAgICAgICAgICAgICAgICAgICAgICAgICAgICAgICAgICAgICAgICAgICAgICAgICAgICAgICAgICAg ZSMvAYVhPVMgSXWrYFPcDSSrHAOoJEEfWI8LTZHyQO AgICAgICAgICAgICAgICAgICAgICAgICAgICAgICAgICAgICAgICAgICAgICAgICAgICAgICAgICAgIC IcSWQpULFkUWPxYPDxEKJsVQSyBWDdCOUzIGZvLUNzCQAjZM8HIYYlJOClJOYuUKOxNMUxMWIfMBXoZI AgICAgICAgICAgICAgICAgICAgICAgICAgICAgICAg TQOoYVZoHVRmWSDyRKMtUZUjLAZgTMCqUOWdJCZeYYScYYFkKXUhWCHhJYBxTZ0ILUVjJVEtEZKsJPHa ICAgICAgICAgICAgICAgICAgICAgICAgICAgICAgICAgICAgICAgICAgICAgICAgICAgICAgICAgICAg RHFpDPNpKLVeNKOgMXMdRGSoJXVjQWVsOSXpYM6TAL AgICAgICAgICAgICAgICAgICAgICAgICAgICAgICAgICAgICAgICAgICAgICAgICAgICAgICAgICAgIC AzHRTsRPXcXBRqXUTkUUZaAZErXTTuKZYoMRGgPSEuKZQdCSPiZB7HKM49nWTwl6K1PGQkJT4afwx/Pg 6VJSbcokQulLFwGZ8NUrHkEV0wld1KOnHbYA2qyp6U JTqYOsCzW6W1xOKyGIDiREMQJkLsE14wILamRi72CIkbEAMeQcStMXv7Ie4ZVjKoR4qbBPAlMmH7SVJp YhV6WODoWcQkDRRuZAMjGN1UGSXqS043udEmFq2PPk2LYdNxNF2ngq7ULyrcNEHsBfmFAxb7FBruFB2P dBMuxGTwLNVtUGGRAsYfT3ezo9VuEdskUMYMXEfyLY 0Xa4GbqBWuIWx+Ie4AEK6kc7RnTAmfGRJrRU5zvt3JJEfFTrUeB3SwrNfzPABgr3biZTGaQJ9aoLDsEH K1JNkikP4sOoXAbBkyLYPmCQGaQQ2tUd6zPCByRXF3NcNfDVWIUF0RTYYcZSBdsBGtKEUkDMMGAE6BLR wgYMF9NFCzmtHxzDGxCStoNZ1CQMRjrvDiKdhfGONQ DQo+Re8UJM2nw6HhQZr7UDPhf7BsCKu8VD1WWNFhJVfiAANbGW7tp2QrJ9D7PbY9iHJuW7wlvmkmU9Bz zpIogbOlAEVvXSXzNJ7NAA9BXV5AJYZrQYzhIE1HIVA4CHt3TkG9WXKwQQSrIRJ2AZ9cTPekOT3NHKq9 G7YeV0GFIGJjHQLSNIHjqVM1PWBLGc2PR1PFNreCRK FACf5JYlVeT9FZZ0zER75PTN0GQAZ+PiANCj4+TUbxfnEtNsbFBfE2MHAfr8NwWId9OW5RBYMdRIlcTG 0RYEIuaP0oXBesBF0MVlCpJLSmTYMZUrUxM02gvHTgGYn2M5RtMgDjSHYqXwboYHCnFXnmKdOoJGQkRt BdDQogID4+ID4+POsxUN3AHOwnlfDfJGZeUz7PWMWe CETzBH4rDRGvZODxC2D3xFwaWZKVBvUfO2feicvwJK0wYFDlV052vEijveSwWSN5VDTcJk8CCNAgWID6 MFJqeRHmUhCbKJQXIMjfUW2ZwHQnXNR5lF6mVKllWARqEQBrX1jEEoAvcFqvKS00yTbhjoUnqMKmPVr+ Ok4ENP0qq4YxNFl2hbQqDUfnKYJqZIzkAMGsUSZmFB PvEET4OVH1EHSUQmDlTCRmJBOlCZuyQYMxTXUopi7SGYIqTYGwMMOzSnTgVBBxGFApJVztRHFjOJS4Mf MhMZDoFNAnUX4AUqTfHBBuBVCsTNeaWOQrFVCmeg4WWFDjHDYdDaI1MoRaHLAyLMGjGSefXCPpGCZ3OO m3FEXfCREgTC6MDzEbHJAuOKTrAEBnMESiTBVwsn7O OKHuGVYhHtW7DnIyLJUqDKAkBBlkYDKlRFS1Etu1CUVrLTZyHE6IZdVjYTEqOWc6SOQfTYMgQSOawt4L DARxXCYwWEX8HEXiKHSyCZVoJHclSPWqOQEkGXM7MFJcEFCyUN9DLnToUSFuEPSdSHYuISMfTBFiuc0I BGSgOAHdCPH3VTVaWJTrCVDpRAfdXATqZTIuJST2OE GhOOQpQJ5MPgStHALhTBO3ETAcNQGhZYTdyw3SCOBeTAMbXAxiNPXsQAYcUZQlXLhuLOYaXIWiEpB1TC QzYQZrNO4HNnXrJQIcQaY7TAefOAJhKTHsiy9GBABuWDOeJmd5IXOlHRAgBJHoVGlqUWDzUYO3UFH3CA OxIPYjOI9JZhBuJVUlHnWaTVKbSTMuRXGbgh1CHEEu ZKBkCXDkSMTjTHWkELBpLVxtHUJzOLI4QqP5CAQnPOGpEE9SKbXdLCVwFpU8PIRxCJMjTKOdmk3GTDTe JXQxVQouUCFzEVOsMVTgYNciKMWjEFQ7PdhiKOSgSJMjST0RHeHbEKJwUyz0DSYpXIVzMQUfnv1YRTUo QVGeAtk8WoUwREXgJHRyCRo8jgDqqFPqNNd1MJ8XO2 KuqhYoNmJQTs3Dv015PQJ5ZSMqUq6EQ0vwFi3aKGPhVMYQCk9WRNe3ACEvAKG2X9IcXZVmKmegFBb3Zi R8HLUtHkOxUOZ5HQV+PTb6DCK5HOpgWXQmZbCkTMP9LdiuQud0WPLlSwAyMeG0RS2pJWDASi2+DQpzdG YzpXwkJPEXZyW2WZY6ILiyDZMUJl4F ID Date Data Source [id number] 10/02/2019 02:41:44 PM EDT [facility] Name Value Range Interpretation Code Description Data Lynn rce(s) Supporting Document(s) Progress Note [facility] RONGEj5cStOHDeDk67/GTSnwSTZcn7EdOAenOEa3UOuxBQFhJ2PvQHX5lG7pKCH0JJhMSjLeZeBcMUG6 lbm [file] SnO0YmHpCuODL2FrHwAE6RDi3IYqX5QDW3qZPhMc7ITLfdBPTFZmRlUT5UKAe= ID Date Data Source [id number] 10/02/2019 12:26:28 PM EDT [facility] Name Value Range Interpretation Code Description Data Lynn rce(s) Supporting Document(s) Progress Note [facility] HWRENs2uSgXPDkNe21/MDPwdPJHkh0ZuYMueNOb9TZisWTMsF8NnYSH4zB4cGFX6AViVSmIyWrFgJFW1 lbm CvGfuDNyCjTEOuZzoRFhNgLGfjAyhidQHoPX5WsBB5ESOqQ60mONYoLSRsP5WpBCOsYOL+Tx6PGKLxdE AvFM7ZGpiH5U1oNiVSTz9/8g3RFEnaRCzWkzgMkdECEW5uoS3b28BOhl2KQIknzYqU7Q9nmlBU83bBeg dgQfhweCu7DlXQaVQv5F305TyL/mtV4SOYbmsJ/Hf/ FxR41rgZ/ExQLtwquJ3no/4AazXwfDvBCuna3B6A++CU8tyZgzsE6YHP/zK/tNOB6jDrHjkS/Yu1/SRN 79WgUCtYi7XAlZWpzDqKws9wXpLEo0Wsv/rDD6L/i/vRFa87acdpszra8e5dQRPFZ7Zt6aS2oFtnKIeP lFypo2f08IeeDwn8mTrSGFgPgnDPsRTl20xLD25Dy6 ufa8o96LCCOxJXRx04QPdS2C8yiqIIXiy48PDBtMSsKrvGw6dWpY+Kg5Jxfy28v+pQwHGW4zuMHzF4Pi L72SIm9WLdpMb0mzLWgqG1qYDpIosQjC9cjejsEHcMz8/gUhqqMkRv1IDfO+XidEvA8i9zaxVTiDmZpr V5afIUjIce2Hz5KJk+sjWsA4ANhoUD02D8iy70nZfz eBIcnoWDwCBUH2yxH7d7FcgTDOr3i1rhVsT4DHDAtqgl5g4R/Evelin/nDQ/5HiPt4NnjUyCbH7mNWN1dva DTA7UevyCkolqyyW2cv49P/RUBo7WpQ9xUk2WcPK+LnfrP3R/1mZkl3zGYuScqx23plPzahqE6uNeKj/ jQiKPEoiu0QYtqZu7IB0KjBbTzqHwZNyksbSDVx8F5 JUdZjE6ZnjwXKjFx2pXFOW07GKXpzRM1hkJB+sI9VY7IWsui6/q5TxWZkxV04OrO5eMc015I8vrneiLw zRldTwa+Abdiel+l9gR9TI+EzNefG86fS/o5Z+nzXc+wvE00M6kdrGdq4ZEvycZg8sRtqTKxyR3utcXfa/r [file] WqlyS6feWkCGwkQEyuSO5QBYGMS3ORXz== ID Date Data Source [id number] 10/02/2019 12:01:27 PM T [facility] Name Value Range Interpretation Code Description Data Lynn rce(s) Supporting Document(s) Leukocytes [#/volume] in Blood by Automated count 7.4 10*3/uL 4-10 [facility] Erythrocytes [#/volume] in Blood by Automated count 3.66 10*6/uL 4.1- 5.3 L [facility] Hemoglobin [Mass/volume] in Blood 12.9 g/dL 11.5-15.5 [facility] Hematocrit [Volume Fraction] of Blood by Automated count 38.3 % 3 6-45 [facility] Erythrocyte mean corpuscular volume [Entitic volume] b y Automated count 104.6 fL 80-96 H [facility] Erythrocyte mean corpuscular hemoglobin [Entitic mass] by Automated count 35.2 pg 27-33 H [facility] Erythrocyte mean corpuscular hemoglobin concentration [Mass/volume] by Automated count 33.7 g/dL 32.0-36.0 [facility] width [Ratio] by Automated count 15.0 % 11.5-14.5 [facility] Platelets [#/volume] in Blood by Automated count 193 10*3/uL 150-400 [facility] Differential cell count method - Blood [facility] Neutrophils/100 leukocytes in Blood by Automated count 58 % [facility] Lymphocytes/100 leukocytes in Blood by Automated count 32 % [facility] Monocytes/100 leukocytes in Blood by Automated count 7 % [facility] Eosinophils/100 leukocytes in Blood by Automated count 2 % [facility] Basophils/100 leukocytes in Blood by Automated count 1 % [facility] Neutrophils [#/volume] in Blood by Automated count 4.30 10*3/uL 1.8-7 .0 [facility] Lymphocytes [#/volume] in Blood by Automated count 2.37 10*3/uL 1.2-4 .0 [facility] Monocytes [#/volume] in Blood by Automated count 0.49 10*3/uL 0-0.8 [facility] Eosinophils [#/volume] in Blood by Automated count 0.18 10*3/uL 0-0.5 [facility] Basophils [#/volume] in Blood by Automated count 0.05 10*3/uL 0-0.2 [facility] Nucleated erythrocytes/100 leukocytes [Ratio] in Blood by Automated count 0 /100{WBCs} 0-0 [facility] ID Date Data Source [id number] 10/02/2019 12:42:24 PM EDT [facility] Name Value Range Interpretation Code Description Data Lynn rce(s) Supporting Document(s) Albumin [Mass/volume] in Serum or Plasma by Bromocresol green (BCG) dye binding method 4.4 g/dL 3.5-5.2 [facility] Bil[facility].total [Mass/volume] in Serum or Plasma 0.2 mg/dL <1.2 [facility] Calcium [Mass/volume] in Serum or Plasma 10.1 mg/dL 8.6-10.0 [facility] Chloride [Moles/volume] in Serum or Plasma 98 mmol/L 98-107 [facility] Creatinine [Mass/volume] in Serum or Plasma 1.21 mg/dL 0.50-0.90 [facility] Glucose [Mass/volume] in Serum or Plasma 223 mg/dL 70-140 [facility] Alkaline phosphatase [Enzymatic activity/volume] in Serum or Plasma 77 U/L 35-104 [facility] Potassium [Moles/volume] in Serum or Plasma 4.4 mmol/L 3.4-5.1 [facility] Protein [Mass/volume] in Serum or Plasma 7.8 g/dL 6.4-8.3 [facility] Sodium [Moles/volume] in Serum or Plasma 137 mmol/L 136-145 [facility] Aspartate aminotransferase [Enzymatic activity/volume] in Serum or Plasma 24 U/L <32 [facility] Urea nitrogen [Mass/volume] in Serum or Plasma 16 mg/dL 6-20 [facility] Osmolality of Serum or Plasma by calculation 291 mosm/kg 275-300 [facility] Creatinine/Urea nitrogen [Mass Ratio] in Serum or Plasma 13 [facility] Bicarbonate [Moles/volume] in Serum 26 mmol/L 22-29 [facility] Alanine aminotransferase [Enzymatic activity/volume] in Seru m or Plasma 19 U/L <33 [facility] Anion gap 3 in Serum or Plasma 13 mmol/L 8-15 [facility] Glomerular filtration rate/1.73 sq M pre dicted among non-blacks [Volume Rate/Area] in Serum or Plasma by Creatinine-based formula (MDRD) 51 mL/min/1.73m2 >60 L [facility] Glomerular filtration rate/1.73 sq M pre dicted among blacks [Volume Rate/Area] in Serum or Plasma by Creatinine-based formula (MDRD) 59 mL/min/1.73m2 >60 L [facility] ID Date Data Source [id number] 10/02/2019 12:42:24 PM EDT [facility] Name Value Range Interpretation Code Description Data Lynn rce(s) Supporting Document(s) Thyrotropin [Units/volume] in Serum or Plasma 62.000 u[IU]/mL 0.270-4 .200 [facility] ID Date Data Source [id number] 09/30/2019 04:44:46 PM EDT [facility] CT THORAX WITH CONTRAST [id number] RESUL TInterpreted by:Jose Guadalupe Arizmendi MDCLINICAL INDICATION: [...] rce(s) Supporting Document(s) ID Date Data Source [id number] 09/30/2019 04:44:46 PM EDT [facility] CT ABDOMEN PELVIS WITH CONTRAST [id number] AL RESULTInterpreted by:Jose Guadalupe Arizmendi [facility]: Interval follow-up of extensive stage small [...] rce(s) Supporting Document(s) ID Date Data Source [id number] 09/25/2019 09:02:36 AM EDT [facility] Name Value Range Interpretation Code Description [facility](s) Progress Note [facility] MCRVPl0gGbLNHgFm98/TCDbfJTZef7XlSXfjSAu0TPmxPNMnC5XfZHV7rX0rUSH0CDfSKyKmBwCbJaWy [facility] [file] [id number]== ID Date Data Source [id number] 09/25/2019 09:00:20 AM EDT [facility] Name Value Range Interpretation Code Description Data Lynn rce(s) Supporting Document(s) Progress Note [facility] PRAAHe7wYuIIMcVy08/UDLsdTLEon9ZgELhnMFi1QTrvYVWuW2GcJVJ2rJ0fXCJ1LFaVZgEeSnRrHpBr lbm [file] [id number]== ID Date Data Source [id number] 09/24/2019 03:18:40 PM EDT [facility] Name Value Range Interpretation Code Description Data Lynn rce(s) Supporting Document(s) Progress Note [facility] ZAMYUr6uFvBIMxGj31/EEQcxNYGad2XcKFnoHHz5LOfdSUDyX8FfXPO3dN9lBQX7EUlPMoQuVvKfKiB1 lbm [file] [facility]///655fG151vpfYjB7js55fRYMY7DHRPF16UM9dxRGyWn+jq4SwtVPUPjUdWl0YnF2F7mkLuv11 [file] ICAgICAgICAgICAgICAgICAgICAgICAgICAgICAgICAgICAgICAgICAgICAgICAgICAgICAgICAgICAg ICAgICAgICAgICAgICAgICAgICAgICAgICAgICAgIC ANCiAgICAgICAgICAgICAgICAgICAgICAgICAgICAgICAgICAgICAgICAgICAgICAgICAgICAgICAgIC AgICAgICAgICAgICAgICAgICAgICAgICAgICAgICAgICAgICAgICAgICANCiAgICAgICAgICAgICAgIC AgICAgICAgICAgICAgICAgICAgICAgICAgICAgICAg ICAgICAgICAgICAgICAgICAgICAgICAgICAgICAgICAgICAgICAgICAgICAgICAgICAgICANCiAgICAg ICAgICAgICAgICAgICAgICAgICAgICAgICAgICAgICAgICAgICAgICAgICAgICAgICAgICAgICAgICAg ICAgICAgICAgICAgICAgICAgICAgICAgICAgICAgIC AgICANCiAgICAgICAgICAgICAgICAgICAgICAgICAgICAgICAgICAgICAgICAgICAgICAgICAgICAgIC AgICAgICAgICAgICAgICAgICAgICAgICAgICAgICAgICAgICAgICAgICAgICANCiAgICAgICAgICAgIC AgICAgICAgICAgICAgICAgICAgICAgICAgICAgICAg ICAgICAgICAgICAgICAgICAgICAgICAgICAgICAgICAgICAgICAgICAgICAgICAgICAgICAgICANCiAg ICAgICAgICAgICAgICAgICAgICAgICAgICAgICAgICAgICAgICAgICAgICAgICAgICAgICAgICAgICAg ICAgICAgICAgICAgICAgICAgICAgICAgICAgICAgIC AgICAgICANCiAgICAgICAgICAgICAgICAgICAgICAgICAgICAgICAgICAgICAgICAgICAgICAgICAgIC AgICAgICAgICAgICAgICAgICAgICAgICAgICAgICAgICAgICAgICAgICAgICAgICANCiAgICAgICAgIC AgICAgICAgICAgICAgICAgICAgICAgICAgICAgICAg ICAgICAgICAgICAgICAgICAgICAgICAgICAgICAgICAgICAgICAgICAgICAgICAgICAgICAgICAgICAN CiAgICAgICAgICAgICAgICAgICAgICAgICAgICAgICAgICAgICAgICAgICAgICAgICAgICAgICAgICAg ICAgICAgICAgICAgICAgICAgICAgICAgICAgICAgIC AgICAgICAgICANCjw/oAUdC3knsNWvquT2R3otSs6GKd1BWO7ag5NkSJHcLGegmtWaVhyJXsEhJVHmMd bTHlb7QVqtMF4WgKMmR3SwQ8LgWHbwUX8WPIOwABGvsYCvERFgRPFuTwE6SCDuGWmoEY1ZkSMbTYrwQF GgBZPrPM9HMWUiC628dbBrCT5VSi1MWaFyRS2pjh9N DSjjZWCyUhpXHhg0ERwaOE6EtXBdzYQoXDGvSZYPBaKsN6wfw1YeLtXhMWVXHIkbIF8Le2NofKPuCEu+ Bs6EOG4ut4RmOLjcOGDpUM7zsn7DQIeWFbEeX2VkvImqBKMoa7uxTBAyUE8qmTVbWSF8AKierbLoIDDw XYInkTjjKMOtyBMgkDYqVSmDL3tySXSgLi4vEV7mBL WgPKRrUgP1LTJVYY2MPQKpFJFoyMGbWATkPLIZNU5GDQmoFOG7KUPxfmGegHUrVUpxFO5LWQRmhuLtYW kgMCBSDQo+As7JAG9hd4ThPVieNTJfBQ4uuo7MDBxYIvHtU3C4uFRdM0Q8MCrrKa3DVHFqVYRwEUkzBI WNSJwfTL6COU8sibP3EO0SbMEsLMYtPFAvhYKbZVc3 J17qdVXtDGbxPJ7WTMM+Antelmo+Iv0JYEWtIPSiIWIfBsOpZZLKDeHfZ9YgF3VZm2BaB1AtAR84iPpzpcJr ARipTY0BMG4eIUClNDVPJX8HbZEqqN0fsqQvJFEoGJLMWcHaU68ciXJsNYKnUZL7XAZmMq0JZBUrQ2Bl scKixXewmzAiSZGnRUDBPY9HOEjfgrLwdXYlgWwkRF 92aOmqOU7XSa3RVqKpGR5azg8FrTTxYg2TYUAuTq9YJOQkLCSnPRVnMFU2EPYnWiBgQMxwSXQiOAGnYS U5HLGzRYNpHZ5TDeHwHQAgWWyaUkSeKPAjBQEreh0LKRVbOKXxAXo4RXLcHMUtCVEiLKlmAPRsYCLmWT K4NGWyRZCiIG5HLyQdLDOkTNBeRVqrVFYpCKFysw9V CMNuFRBmLeIkZjPzVXMlKTPwIZmrFWUpUQBlLzYiRQPnRRRyGS9BCnTpYBAcIJO8FYbeZTMzVGWbqc2K KPMwXWEfPaEiGADbWUBnEZYjZSevTVQsOBT4HWg5YEHnQFTuBE5IMaCuUOXmSNG1FFllSXIjOIOekd1N ZIFpWJAmSNo9WCWrJRRwSPQnRFsjRRDjBWU9EsPeYY RbWKZoGJ6BXlMvMMLlOUD3DVJfWVFmAXYvjq5TMOToAYZxGgv4NARtSKStSQYgBVgnWKBdTVK1GJA9EF HkFHYnOG8CXgOcFGSqJMxxSFFjZDQjCYRiss6SKAHhQOOxGoX3WQZcCUXsLYTyMYlxXECsLHL2CCn5TK AtPGLgBA6OHvWcSCFmAUlpScVtHDDbFRGxsh5INVHi LHWsLVEuUELzSITgIHAbSWj9mwBpxLDlJYx0VB9KZ6VpsqXbIbVWIc5Ii895CJCcVMNeRi8KM2tyBn0n RDRmNWONAt2OTDi0FITdAGRwLDQkMLCjG3ZsZDVqNuFiGfD6JtP5QFVgCMW+UKx4SiL0HtQ4PCUkXYP8 OoH3PRZ9IzKtDqStFTKgKXX0Jr1dOSSIUo4+KVswnIEbeLzsHMAVBpW5OJLxSIuvCAGRZf6B ID Date Data Source [id number] 09/22/2019 10:41:08 AM EDT [facility] Name Value Range Interpretation Code Description Data Lynn rce(s) Supporting Document(s) Progress Note [facility] RCBAWm7iHaGWUySd50/GEBhiZCGqx4JdBTvhAFw8SVswVJFnV0VjVXQ9tB2aLWQ3JExZKxLoIxKmFbO6 lbm [file] ICAgICAgICAgICAgICAgICAgICAgICAgICAgICAgICAgICAgICAgICAgICAgICAgICAgICAgICAgICAg ICAgICAgICAgICAgICAgICAgICAgICAgICAgICAgIC ANCiAgICAgICAgICAgICAgICAgICAgICAgICAgICAgICAgICAgICAgICAgICAgICAgICAgICAgICAgIC AgICAgICAgICAgICAgICAgICAgICAgICAgICAgICAgICAgICAgICAgICANCiAgICAgICAgICAgICAgIC AgICAgICAgICAgICAgICAgICAgICAgICAgICAgICAg ICAgICAgICAgICAgICAgICAgICAgICAgICAgICAgICAgICAgICAgICAgICAgICAgICAgICANCiAgICAg ICAgICAgICAgICAgICAgICAgICAgICAgICAgICAgICAgICAgICAgICAgICAgICAgICAgICAgICAgICAg ICAgICAgICAgICAgICAgICAgICAgICAgICAgICAgIC AgICANCiAgICAgICAgICAgICAgICAgICAgICAgICAgICAgICAgICAgICAgICAgICAgICAgICAgICAgIC AgICAgICAgICAgICAgICAgICAgICAgICAgICAgICAgICAgICAgICAgICAgICANCiAgICAgICAgICAgIC AgICAgICAgICAgICAgICAgICAgICAgICAgICAgICAg ICAgICAgICAgICAgICAgICAgICAgICAgICAgICAgICAgICAgICAgICAgICAgICAgICAgICAgICANCiAg ICAgICAgICAgICAgICAgICAgICAgICAgICAgICAgICAgICAgICAgICAgICAgICAgICAgICAgICAgICAg ICAgICAgICAgICAgICAgICAgICAgICAgICAgICAgIC AgICAgICANCiAgICAgICAgICAgICAgICAgICAgICAgICAgICAgICAgICAgICAgICAgICAgICAgICAgIC AgICAgICAgICAgICAgICAgICAgICAgICAgICAgICAgICAgICAgICAgICAgICAgICANCiAgICAgICAgIC AgICAgICAgICAgICAgICAgICAgICAgICAgICAgICAg ICAgICAgICAgICAgICAgICAgICAgICAgICAgICAgICAgICAgICAgICAgICAgICAgICAgICAgICAgICAN CiAgICAgICAgICAgICAgICAgICAgICAgICAgICAgICAgICAgICAgICAgICAgICAgICAgICAgICAgICAg ICAgICAgICAgICAgICAgICAgICAgICAgICAgICAgIC AgICAgICAgICANCjw/wGCuU2yatVMfraW7R6azMi7AXv9NMU2wq7AkFLClGLrzurGmNucKTqIaOYWsQm bBHrz4TXdvJJ2MaGTjX7ZgY5NnLTugQD6AWDVnKGBakFKpDEAyTYKyFuE9OZWfVDecKW6RuVMpWLdaBI AwIFIgNyAwIFIgOSAwIFIgMTEgMCBSIDEzIDAgUiBd AVqxLX5Dc0VqwGP4BOw+Tq4XEM9is8CgHLowReCcQI8ocx9EZBuZGlTqC1VafmB0OYQ1OYCkKt0NIZTx VNBywFQvJVBzLDCCMdBmG9FpwU82ZBAJNr9+WClqzcMbUckYDeB5YVUxm7IiXGz2OT7WBRMyJWg2qDKx JTVrP2Aou3MhVd62RTUiPzfjSmKrqdDfCOFTLDTkbN JnwrlzBPIbJSBgRd5nSh6oLZVlWXA0AiUxABTXRK7VCYVdGUXdtRDrRODlUAQGUD1FKYepGQB0ZXCqwb IgbAPrWXwwRR4BOSBbidBmGjIjHKLMSZr+Fg1NKG0ey2GrBMjtQVDgWV1zgz8VTDzHEpReH9L8cQMnU4 L6DLrhPr5FEGYvHJMhFpEeLBNDYVrvSR7HMS5cyqL7 KW8QeKYpQLByWNNexAXxJZf6U30jnYWpOXmdKE6BCEZ+Antelmo+Ma2XKVIfTOPlMHGxBlKiBQGVPdHaZ2Eg E8PHt5UtT3VvNU43hMbtxnIhTEwzSX8LRH4xAJQxNKXMSF6IqCCbsY4sbbLgGqCdVROGIiCaI10ypCUg KJAoMEPqJZLkIs0JNDYyV8HnqwBwtMqkrvIzKSHqHW GDXT4ULKfkpvHypEJeiDggOD55ePgbFZ9KKy1CRqFnNA9ejl0PsYBdCe6PTNIsGr9GEXDbWGTnVXHaPQ G6ZIRoOoYxBFfyJEBpPERvMHL9MRBxEAVyOV4GPmLlCVIxXlQwAEejWOYzDIHymo9TCRPhZVHyDTG0XS KuRSHfGZAwKFcpYLOtANUrUKO2GPYyUTPjKC9AEyEd NAYnZRB4SfUaXZRkNNRqha8ZBNPyRQErXKl9IQUzOQAgQHHoNSmnWSRgIHI7YfT7XPScRCWoNL8BTpQs NSXoIIk4AndoTUTlGSHdku7AAKNlMDXrHPQ3PWNlWCQbUCLhNSmjIDNdPAAsABicSBYfZUTtZE9XWpBz QKOrMED9UdCvUWTbPSLbrx2DRHWxHCHqCNMtNiTiJT WrOYOzNJoxIRBkJLU8NHWrURRjPLEdCZ1XMaAyRMRpIBA2YINdUBJbAOTzyl2UCCUeOTLiEpU0TvVcXW BnTZElNGftMPMfSQM0JqOyBKFmVBYgFV8LRcPhJLLaQIL0EFZfYHKqMCPnqz1UXPHvWSBeFgxvJZGfNN FsLRCyXMmrKVVbVGE9SGL3XDNcLMTlTU0XLrUtAOPf FIpaUZKrKMWoTSYsqi8PPVBtSBQyUBplOWNcLBEfHPMvLMvoQHFsLOGaAIYbSMRqLJJiZG5NEpUhHMLr JtUeJYhgTHPvMWGhuv9MXNIbEOCgRUWuFVSqLXIcXGYzXZdsYDBeNKHoPqV2WOTjBPLtGO5CAmQaBDDk InV1QShlTUKyHUVanu6IPGRcCPIpYNg8GPZeOJSyOP VzVHoyVNSyMOKdAZS5ZKPbMUSnZK0PYvEiTSLoNoT1ZBDuPHTvODVgok1QFXWjALHhAnN0TQVdUEZmDE AqJScdDFDnHRRlCsw2CNQrNGOlTX5WHzReOGNcPzF5UXVdUESdNPTebn0JZLSjWETvBCT3NPGoGLTyMD EtVGamBVUpPLO1FrZ3OBQqRGPuIP0IKmVuRWCmAoKf KRLpLGCyJITqms7KcJNwgXqwto9QWKhWVh7YsFemGQG9PFogMf8yyQVpLGJiFXTZJu9BpmGtHGYcWHMX PZscHNJpHQT4FLPmZqpwVDYiFbC8XZz7NUAcYPMbR8T6Y5I2HNI0YtV2DTP7EvJmZDZ2C2EdFPX4ELcg QtX7ANW5FWSjXxPyEpK+OL4wSZg+Ml8Rm6MxcuQ2jzEkSQuaFOV1EZ5PHSORF5JNHg== ID Date Data Source [id number] 09/19/2019 12:00:00 PM EDT [facility] Name Value Range Interpretation Code Description Data Lynn rce(s) Supporting Document(s) SARS coronavirus 2 RNA [facility] This lab was ordered by [facility] and reported by [facility]. ID Date Data Source [id number] 09/16/2019 02:06:07 PM EDT [facility] Name Value Range Interpretation Code Description Data Lynn rce(s) Supporting Document(s) Progress Note [facility] GVILBo3iPyHSHbGa39/CRFztHBFll6DdBRatNCz5KScmALTyO2BaFNU1yX6oJBO3ZKmVCyEwCdXyArWs lbm [file] AgICAgICAgICAgICAgICAgICAgICAgICAgICAgICAgICAgICAgICAgICAgICAgICAgICAgICAgICAgIC AgICAgICAgICAgICAgICAgICAgDQogICAgICAgICAg ICAgICAgICAgICAgICAgICAgICAgICAgICAgICAgICAgICAgICAgICAgICAgICAgICAgICAgICAgICAg ICAgICAgICAgICAgICAgICAgICAgICAgICAgICAgDQogICAgICAgICAgICAgICAgICAgICAgICAgICAg ICAgICAgICAgICAgICAgICAgICAgICAgICAgICAgIC AgICAgICAgICAgICAgICAgICAgICAgICAgICAgICAgICAgICAgICAgDQogICAgICAgICAgICAgICAgIC AgICAgICAgICAgICAgICAgICAgICAgICAgICAgICAgICAgICAgICAgICAgICAgICAgICAgICAgICAgIC AgICAgICAgICAgICAgICAgICAgICAgDQogICAgICAg ICAgICAgICAgICAgICAgICAgICAgICAgICAgICAgICAgICAgICAgICAgICAgICAgICAgICAgICAgICAg ICAgICAgICAgICAgICAgICAgICAgICAgICAgICAgICAgDQogICAgICAgICAgICAgICAgICAgICAgICAg ICAgICAgICAgICAgICAgICAgICAgICAgICAgICAgIC AgICAgICAgICAgICAgICAgICAgICAgICAgICAgICAgICAgICAgICAgICAgDQogICAgICAgICAgICAgIC AgICAgICAgICAgICAgICAgICAgICAgICAgICAgICAgICAgICAgICAgICAgICAgICAgICAgICAgICAgIC AgICAgICAgICAgICAgICAgICAgICAgICAgDQogICAg ICAgICAgICAgICAgICAgICAgICAgICAgICAgICAgICAgICAgICAgICAgICAgICAgICAgICAgICAgICAg ICAgICAgICAgICAgICAgICAgICAgICAgICAgICAgICAgICAgDQogICAgICAgICAgICAgICAgICAgICAg ICAgICAgICAgICAgICAgICAgICAgICAgICAgICAgIC AgICAgICAgICAgICAgICAgICAgICAgICAgICAgICAgICAgICAgICAgICAgICAgDQogICAgICAgICAgIC AgICAgICAgICAgICAgICAgICAgICAgICAgICAgICAgICAgICAgICAgICAgICAgICAgICAgICAgICAgIC AgICAgICAgICAgICAgICAgICAgICAgICAgICAgDQo8 H3ypJBZyQOLbAC6sSAw9Ro0+DBvCKuJiKSR9kaLfqD7LTM6jk1VfTTsgZSHcf6TxMSb1YT3QXWLgTBtt DT8YQCsqqe1ZQJWuMZUgjYURv4atKpPgQPD7YACbWvfqCQ3BRBBuY4vtgmBnPQDpSYEAVXdmBKPHEVqn WWJCWKUsIDCmRuAjXIlsAM0Kj3ArkXV8XVi+Pg0KZW 4jh7CkTJcwJEAaFD5com6QSWbFCeDnK5SkpqR4EHX3DYMrGk9QGOQbCEPukGSgOBFrCRDMEjChM4MphS 26BXWKBb3+FSlcfvUmNhpXVaT1QHZvp0MeFJp0RE8RCQIjGBz7kILvBWLzJ7Xgg5NyPs21UAIaClolTE LpdiCQSHqqYILMMKYafLR4KoDyUlWqAvDlSPQ4FONy QG1xZVhxWZ9GYPS5HPruPHLkJMBgN1kQXqEnPSAwTjSllFusSF6ZMdDvC5DggjTnkXAdQUEfCLFLLk1+ ELsgwySxIaaOPfXcAJWin5KbODg2JL1ZVEUuKMkmLY1YWKXepO2tZQcrEK8DHgYbImOoWSOQIiFbU44w oRKzOVw5A1WmRqVwGJBkIwjvIHIiTBrmWnHuCAMhWr BdDQogID4+ID4+LQfwSD0KXDqdxqYsHVYtDd0VXMSnWEQrCT7eAYVcRJAeU8Z5uFynRVJVOaNpO8nvtq vfED5tGTHqU030eQtjopRyERA1EPCgHf4GPGBiOJJ5AITpwGBaSlmnQBPNBKctPM6SzRJuULY1cF8qZX zfOGUaKSWsA4mYDpLnyBvjQZ84mYgrpcXxeVQqWUh+ Tt9FVO8om1CjQPa0qsXjZWcwVGIbHAlhMGFgLBEvIWOuWCA3OLI3CXHASfMdFCYoVZXoJLjzHJUuOPOo ot4RTIPuGKBlOJKvPPNhSMFbRJMwQDvgVQQfLSXxMJX7RSUlFBQaQC0RVqBrOXQeDTHyUZbeFFXwXNSm ce8OJRZvWUIgFkf8FiCaRDKoJMKsYEkvBMIyCQN0KE yaSZTsNRYdQU8GUoQlUAUyMZveSYWzWHSxRITkrd4FTUEzIVWiKvRqWlCfXESuOHUsQRzwLTXgPZAhDu VhYPSvYOLsLJ4NTvQuAYWjLPV2RFUsZGXqGUVuzi2ZVWRaAVZtNwMgVSDyOMEyXCZhDSfuKCGhUONrFb McPFGsBGVyRM4HWdBxSFIlDLX9IFTkHDCzATGknt2W FSHkDREfPAg9FUNfOPRaUDKxGPmxINChWWP2CWjtFIKgAYXzZH1UHaHrWJNkJNMbOpVuURWaDIFxgj8K YEPgOTHoAlRaNsZpUYVfBEEnVRxdXAIePZD1VFCqFIGyKONdZE9TBdPnOILaKbi1KJCfWREhIAMvee8O BNXvLAZtDDS0UNDhBHQdYPQhIIxjYCJuOSJ0Ddv5IB FmGNCcQQ6PDmWaVIRcKrv1FdOfCSQvFPKifn9PQJJtPMKzYUe9MRUqMBCwXYQdUDttUQPeUCT1FkRqFT EoURHtWZ0DBqRnUYAbLev6EVWtXZDgAZRrsw0ROVYyEYScADO9HFNcSVAsGBLfNLsrXXUfYVJnIOQ9UQ NtCGAfEO4ANdDbJGPaIaU1YtQkVEVoYSCgjj0WOKOz HPKtTiR4SVXtOJItBUKpETuqTAPqNGBiLQv4IANbFOChAK2EBaJcNXzmYXYTIzb1BRkdZ8j9POVvOE9C J8Ayz1CfNqIfHZLHROirTU0dikVeUCGvPn3TX8jZQek5JQGbCNdwLiCmGmQ6VJW8RHosEUT5IBS1PVYr Alk7Kn2yTVZ0EKT3IPNmWDUbFuBjFYPtCGHkSeE4Wb gbYIFdRBpoIdZvHV0YBf3IKtK1LTD3mZPxGf4OSaY6NiPRAeZjZT0HBDu= ID Date Data Source [id number] 09/16/2019 11:30:56 AM EDT [facility] MR BRAIN WITH AND WITHOUT CONTRAST [id number] FINAL RESULTInterpreted by:Jeanie Talbto MDEXAMINATION: MR BRAIN WITH AND WITHOUT CONTRAST [id number] INDICATION: brain met, surveillance.TECHNIQUE: Multiplanar and multisequence [...] rce(s) Supporting Document(s) ID Date Data Source [id number] 09/11/2019 08:26:52 AM [facility] Name Value Range Interpretation Code Description Data [facility] rce(s) Supporting Document(s) Leukocytes [#/volume] in Blood by Automated count 7.4 10*3/uL 4-10 [facility] Erythrocytes [#/volume] in Blood by Automated count 3.34 10*6/uL 4.1- 5.3 L [facility] Hemoglobin [Mass/volume] in Blood 11.8 g/dL 11.5-15.5 [facility] Hematocrit [Volume Fraction] of Blood by Automated count 35.3 % 3 6-45 L [facility] Erythrocyte mean corpuscular volume [Entitic volume] b y Automated count 105.9 fL 80-96 H [facility] Erythrocyte mean corpuscular hemoglobin [Entitic mass] by Automated count 35.4 pg 27-33 H [facility] Erythrocyte mean corpuscular hemoglobin concentration [Mass/volume] by Automated count 33.5 g/dL 32.0-[facility] width [Ratio] by Automated count 16.8 % 11.5-14.5 [facility] Platelets [#/volume] in Blood by Automated count 241 10*3/uL 150-400 [facility] Differential cell count method - Blood [facility] Neutrophils/100 leukocytes in Blood by Automated count 58 % [facility] Lymphocytes/100 leukocytes in Blood by Automated count 31 % [facility] Monocytes/100 leukocytes in Blood by Automated count 7 % [facility] Eosinophils/100 leukocytes in Blood by Automated count 3 % [facility] Basophils/100 leukocytes in Blood by Automated count 1 % [facility] Neutrophils [#/volume] in Blood by Automated count 4.29 10*3/uL 1.8-7 .0 [facility] Lymphocytes [#/volume] in Blood by Automated count 2.34 10*3/uL 1.2-4 .0 [facility] Monocytes [#/volume] in Blood by Automated count 0.50 10*3/uL 0-0.8 [facility] Eosinophils [#/volume] in Blood by Automated count 0.20 10*3/uL 0-0.5 [facility] Basophils [#/volume] in Blood by Automated count 0.11 10*3/uL 0-0.2 [facility] Nucleated erythrocytes/100 leukocytes [Ratio] in Blood by Automated count 0 /100{WBCs} 0-0 [facility] ID Date Data Source 09/11/2019 09:34:31 AM [facility] Value Range Interpretation Code Description Data Lynn rce(s) Supporting Document(s) Cobalamin (Vitamin B12) [Mass/volume] in Serum or Plasma 512 pg/ml 2 11-946 [facility] ID Date Data Source 09/11/2019 09:34:31 AM [facility] Value Range Interpretation Code Description Data Lynn rce(s) Supporting Document(s) Ferritin [Mass/volume] in Serum or Plasma 147 ng/ml 13-150 [facility] ID Date Data Source 09/11/2019 09:34:31 AM [facility] Value Range Interpretation Code Description Data Lynn rce(s) Supporting Document(s) Albumin [Mass/volume] in Serum or Plasma by Bromocresol green (BCG) dye binding method 4.1 g/dL 3.5-5.2 [facility] Bil[facility].total [Mass/volume] in Serum or Plasma 0.2 mg/dL <1.2 [facility] Calcium [Mass/volume] in Serum or Plasma 10.1 mg/dL 8.6-10.0 [facility] Chloride [Moles/volume] in Serum or Plasma 96 mmol/L 98-107 L [facility] Creatinine [Mass/volume] in Serum or Plasma 1.11 mg/dL 0.50-0.90 [facility] Glucose [Mass/volume] in Serum or Plasma 195 mg/dL 70-140 [facility] Alkaline phosphatase [Enzymatic activity/volume] in Serum or Plasma 69 U/L 35-104 [facility] Potassium [Moles/volume] in Serum or Plasma 4.2 mmol/L 3.4-5.1 [facility] Protein [Mass/volume] in Serum or Plasma 7.3 g/dL 6.4-8.3 [facility] Sodium [Moles/volume] in Serum or Plasma 132 mmol/L 136-145 L [facility] Aspartate aminotransferase [Enzymatic activity/volume] in Serum or Plasma 25 U/L <32 [facility] Urea nitrogen [Mass/volume] in Serum or Plasma 16 mg/dL 6-20 [facility] Osmolality of Serum or Plasma by calculation 281 mosm/kg 275-300 [facility] Creatinine/Urea nitrogen [Mass Ratio] in Serum or Plasma 14 [facility] Bicarbonate [Moles/volume] in Serum 25 mmol/L 22-29 [facility] Alanine aminotransferase [Enzymatic activity/volume] in Seru m or Plasma 14 U/L <33 [facility] Anion gap 3 in Serum or Plasma 11 mmol/L 8-15 [facility] Glomerular filtration rate/1.73 sq M pre dicted among non-blacks [Volume Rate/Area] in Serum or Plasma by Creatinine-based formula (MDRD) 56 mL/min/1.73m2 >60 [facility] Glomerular filtration rate/1.73 sq M pre dicted among blacks [Volume Rate/Area] in Serum or Plasma by Creatinine-based formula (MDRD) 65 mL/min/1.73m2 >60 [facility] ID Date Data Source [id number] 09/11/2019 09:34:31 AM [facility] Name Value Range Interpretation Code Description Data Lynn rce(s) Supporting Document(s) Thyrotropin [Units/volume] in Serum or Plasma 67.320 u[IU]/mL 0.270-4 .200 [facility] ID Date Data Source [id number] 09/11/2019 10:13:53 AM [facility] Name Value Range Interpretation Code Description Data Lynn rce(s) Supporting Document(s) Iron [Mass/volume] in Serum or Plasma 86 ug/dl 37-145 [facility] Transferrin [Mass/volume] in Serum or Plasma 235 mg/dL 200-360 [facility] Iron binding capacity [Mass/volume] in Serum or Plasma 326 ug/dl 228 -428 [facility] Iron saturation [Mass Fraction] in Serum or Plasma 26.0 % 20-55 [facility] ID Date Data Source [id number] 09/15/2019 12:06:19 AM [facility] Value Range Interpretation Code Description Data Lynn rce(s) Supporting Document(s) Pyridoxine [Mass/volume] in Serum or Plasma 32.4 ug/L 2.0-32.8 [facility] (NOTE)This test was developed and its pe rformance characteristicsdetermined by [employer]. It has not been cleared or approvedby the Food and Drug Administration.Performed At: [facility] [id number] Sneed MD Ph:[phone] ID Date Data Source [id number] 09/15/2019 03:06:33 PM [facility] Value Range Interpretation Code Description Data Lynn rce(s) Supporting Document(s) Thiamine [Moles/volume] in Blood 211.5 nmol/L 66.5-200.0 H [facility] (NOTE)This test was developed and its pe rformance characteristicsdetermined by [employer]. It has not been cleared or approvedby the Food and Drug Administration.Performed At: [facility] [id number] Sneed MD Ph:[phone] ID Date Data Source [id number] 09/11/2019 09:32:41 AM [facility] Value Range Interpretation Code Description Data Lynn rce(s) Supporting Document(s) Folate [Mass/volume] in Serum or Plasma >4.77 [facility] ID Date Data Source [id number] 08/20/2019 12:24:23 PM [facility] Value Range Interpretation Code Description Data Lynn rce(s) Supporting Document(s) Progress Note [facility] BTPGUi8hNnUTSvIb36/EFJgdGWBih6QzYMcpOPv6YKtiQTIaY6YwVTK9oW5sBFJ7AJlVSwIoEwVgPpQ0 lbm [file] AgICAgICAgICAgICAgICAgICAgICAgICAgICAgICAgICAgICAgICAgICAgICAgICAgICAgICAgICAgIC SyTMYhEWSzOFEnGVQiXZ9SGKUwBUYgDNZrHCNpZFMh ICAgICAgICAgICAgICAgICAgICAgICAgICAgICAgICAgICAgICAgICAgICAgICAgICAgICAgICAgICAg OCYdBBIxILAcQJOuXMIbTIAtFVWbRLQqBJ7VPZLwLBVzRVMjNGQvPYIqPTSeYJJaTTItTZFpYQQwVHJn ICAgICAgICAgICAgICAgICAgICAgICAgICAgICAgIC VyXDMyFNNoQQPvHJGuTMAiZWQbTTPxVDWaZNYrRKPxHTPoTZ6KYFLwFMRqWFBiETUnMZIqWBBrMWLaQR AgICAgICAgICAgICAgICAgICAgICAgICAgICAgICAgICAgICAgICAgICAgICAgICAgICAgICAgICAgIC UwGSGnAULkGDUrFVMxNSBcIQ3BSNLuCMHxTEYqGQJf ICAgICAgICAgICAgICAgICAgICAgICAgICAgICAgICAgICAgICAgICAgICAgICAgICAgICAgICAgICAg YXEeYQHmJNTuUQCiBXXdQOQeAKYvWZPyABTcTS8RCLGnLJIjDCCfQJYhEGBoPYFaDYFwMZLmCTJsWNGf ICAgICAgICAgICAgICAgICAgICAgICAgICAgICAgIC RfHVTsYNWoPQTkHEJhERBzHSInBRXhFZEmKPXuTBYuFJMnNYCtLV6NRFGbNJXvLWDxOSTqESSkEORmUB AgICAgICAgICAgICAgICAgICAgICAgICAgICAgICAgICAgICAgICAgICAgICAgICAgICAgICAgICAgIC YyRLEfWMJrLRZjYPRoRUFvQZAvUO9DZNYyPPGlZUAw ICAgICAgICAgICAgICAgICAgICAgICAgICAgICAgICAgICAgICAgICAgICAgICAgICAgICAgICAgICAg NZEyQAKiCAYaXYWqCYNwPLFsEPPlGKMnVOOmNVBxGP1CZGPlFBMdWPKwBWUjLKEgBXOkDEHhQXSmHJAl ICAgICAgICAgICAgICAgICAgICAgICAgICAgICAgIC NqSRSsEDKmXESaGDOgDTOiHIFcMEWyWZMwLFAfEOStWFBaGHSjRXFtYF1UAQSuOXHpPYSeAKLxYORyFG AgICAgICAgICAgICAgICAgICAgICAgICAgICAgICAgICAgICAgICAgICAgICAgICAgICAgICAgICAgIC DuXKJgWSSoENQyZJEgLDSrWFHnFUYfIT6FWV35iNGl q3F3QTQkGS5qjym/Dn6ZXSrlwsUyvTYsIT5YJbLpES0gqa4MWzHiWU2gpr8YPRwOSaKcL7M0bNJrAREn JLMLIdIdG62uVVueFn00MXxcHLIsWlSwJRf6Ve4FFhXbC1crGEAbExX4XJLgGsRzLQpsDB7Tk9CeuUBl DQo+Lj7QNG6ot2QpXBssJPJrHJ3xcx9MFWxJGmReA4 CpzeT3SJQfVYLhFn5ZMOWvGDLskXVrFRFwEQUPKbYyP6NweN38HZJIKf6+DQplbmRvYmoNCjIwIDAgb2 GsUKu3MS6FFBTtFTb7qENkNRIqD6Oky5McLh08JJSnZoxuTuQlkcIsSVUQWDBlgUQvwpvtGTRsTCSoBw 8iGJ9bYHSnFUT9YiV9TDCBYK4MHRQwCYVqrMUpTUCr OFSQYH4CYFupDLQ3FOFfssLdoTXwAVkbYR1TSGNwuoTrNUmuYDWHJBe+Tx8TWW7rs5TgOSsuBHRxMD5n mr5PKMbFFwVbW4S7qNSyE3R4ISqkYj1SODKnNHGnLXjyZPQLWNhxGS2LYK1eegY4MY6VyCKzAHVyHGSz pSHvEPs7S03sdGOrZQdbZK8MEZR+Antelmo+Hr3WZZDuYJ JeZKGiYhNeHCDAWjVfA4TmF3RPu3TmD8ExEC09oYlncqDfZNflVD9PBV3wSZTmDGXLFP5QzGKlnW9xvx NfQWPfBVXURmBnF47hzSZrMRNbGKM3ZIGeUf5TPFRwP7QiftRkqArmolWmJCNvUWHLAW5WCCwqpcHuwB YinOagBQ91aMcvRF3XBf2OQwWeZO7rlo6CbBPwMn2K FSXdRb0RFNOtJPJmBKIzOHH8YNXzLuPkJRejZIPwLSXoWAN6VHYySZFnBN0WDrIySLKnOMK2AJZkEMRe HBQavv3IJEBzDROjQIRgJQBeBDJdXMKbEMrdGOIcDGKwZOM4RLXnTVXvDR7BYzHfUNShGUT0PagnWOKt HQDfqs1PNOMbCKCuRQplABHmBSFuUCXeRHbuWEOaOS YjPcxdWPEeSNXfCI2KSqHgELIsLPD4OHPrVZCeORUrbj2FCMPpXEEnFcF8CdBaOPSoIANgSCsxGAUhEM H5LID1INSrZKQyNT2EXoNiNDCaFGLfJoJtJYTeVIStdz1IYCYxTYRxHGYbWgKvCQAcFTWaOJzjLNDpDH N2FSL5RAKiMMRzOX9ORoKyAKCeJKJjNOOxGXRcRADv cn0RICQlMXLsDrG3WbXpOMXlBEGkADhaJENwHBB2AtKrYKJtODUxEP9RTuKiKDViHGJ9DhzvKAQpFPLc db2PMVWyRFCgUjA9OUIoBBVeKNRqGUynKCFgIXE9YkW9KGHqARJkBV1PRkEmJODnSAh1KKfrTWIqAXYj eu8YNDYaLVGyIUvnYQPmMAZzNKMaGKf8tsXkrCTfUJ b4WY3FQ9FfnwCzLwBAFk5Gn657BIOjVTAvHg1AV4rfFh9hMCHtKBHRAr1ORQn0VUS4DqXcSTreWiCwXS YwMWVmZmVlMDNlMGQyZjFjYzQ+NQi1OMb8QDIvIZGrDIZ0TiHcVDIwHDMpY6BoYAEhGFRiIQ5tUJTNYb 4+ZBdibHKrkWnyTPAJKgA6IRclVWfnEJGZZv5U ID Date Data Source [id number] 08/20/2019 12:24:18 PM EDT [facility] Name Value Range Interpretation Code Description Data Lynn rce(s) Supporting Document(s) Progress Note [facility] UDHWJc5lDnVFHgEh42/PRTrrCKSac7LoATigLIz8KNcrMLSdS5KxPBZ5qR0uWUT1UZvDMsZvNiNfGfU7 lbm [file] wISywFFbFmby2CP/Tonny/FuBz21OLFo8cN8s5VKSS8Z al1HfyrnCo6/inés+mNru6dB84cdb88e3OYKiQcQ+oCZG2De7K3dWb8kWTZOhZtwxryMgyppf/OrJFZqi [file] AgICAgICAgICAgICAgICAgICAgICAgICAgICAgICAgICAgICAgICAgICAgICAgICAgICAgICAgICAgIC WiCVRtAFGjXGFpNMYpXDWsVMKlUA6VULPiRGAqDRTd ICAgICAgICAgICAgICAgICAgICAgICAgICAgICAgICAgICAgICAgICAgICAgICAgICAgICAgICAgICAg YDOwNRRoCRFbQCLhGKNzVKFkTCGgLLHmLQIeQXUrRW1LCBTbDWVgHLEdOZUmKFIaXKClXUVyIACmXPEa ICAgICAgICAgICAgICAgICAgICAgICAgICAgICAgIC NsLZOyTAVeOGAwMMEjSJBmETDrHFYzDEIzOIItEREyFUJrHZLqHTMqFO9VSQSzPYXfMDKzNJRbNPKuHP AgICAgICAgICAgICAgICAgICAgICAgICAgICAgICAgICAgICAgICAgICAgICAgICAgICAgICAgICAgIC TiHVFpTSHiCPUpMRBbATNnBQCqNFYyYO9DSSTtVRZc ICAgICAgICAgICAgICAgICAgICAgICAgICAgICAgICAgICAgICAgICAgICAgICAgICAgICAgICAgICAg ALMdUZIgNZCoFOHhLKPaYQXjXHFuCIUmXBEaUHFqQGTcID5YOCNyCOKkECFdPBMpLMTqUHEzVSCkVGFp ICAgICAgICAgICAgICAgICAgICAgICAgICAgICAgIC BqFCAoIGQhRLCoTREiJEWyDHYtGZXvYZVzVRTeXPQfRDFyMDFrCTWdNQHqFA0OVBOuVLLpYPCzEBCbAC AgICAgICAgICAgICAgICAgICAgICAgICAgICAgICAgICAgICAgICAgICAgICAgICAgICAgICAgICAgIC GxWWOxMTSbQWCpKBCcRKEzJCGhRHWwYYBnZY6YTYDk ICAgICAgICAgICAgICAgICAgICAgICAgICAgICAgICAgICAgICAgICAgICAgICAgICAgICAgICAgICAg MHNxXDTfGURaZLLyFSRdQFNxZPFjOKHiETXiXMIfIRChXQHmHR4FYBCpKULxKWDuUBImASAbJVYjMNXw ICAgICAgICAgICAgICAgICAgICAgICAgICAgICAgIC FxMHJbRKZbRBUtULJzMMVqBOSfMTPkWCLrWLGnRBImXCRcPOEbLNDiDIHkBTMzVH2SHPPxKGHhWPZiJL AgICAgICAgICAgICAgICAgICAgICAgICAgICAgICAgICAgICAgICAgICAgICAgICAgICAgICAgICAgIC OgBLUrXWEsMCRdSRQgBRUfYJTmRTIjVBFvZUXuBE9X ZS73dITuw4K2GAWaZP8vlht/Js1ERRofljRtfMMvIE0QJfGjST9brd0GGgJyZN8tll4BVPiNFxVmH1W6 aGIyTVEsBAYYOeIxU88aOMojCm84WKhdTVKmGqThUQu1Ua2UTzHlN6diGDEbNwF0AYCmRzN4SNIcSjA8 PMKaXcBfTTHtBHOeQESgPZJSTNK3VQEdWgEvIiCjOP MwQOblSBTJUJLrQBJiKoYaDNxzTN7Vq9IlcIM7WJp+Sm9XDM0kl0CpVRb4CKAdHF9zsg2NZTyQIiGtU2 YikrS2AUZpICYzAv9CLNElFSIwoEF9LbQxVKBBNuKaD9SpeY49CMANFz3+DQplbmRvYmoNCjQyIDAgb2 XaFZr5ZW2KSCYbDDu7uUEeDRPoH9Aso8HnEe65ADRh BnstPYV4ztIdBX9aVBIwEMRbAK6erhfbZXZyZKRaDs0mJC1lYWAgLYT2DlU6PQINPT8NGSEqFIAveOPm EDLdDOICND2YRBopORG7HCEvewGnpSEqCTpkFM2HMBOceyDwCUHyNECHPEh+Qr0KZD9dw6NqKOk8OjFm TS5sfz5QDLiONbJoE1T9kBEsP3J1XVmeVs4XQPOyCE BiKwamDEIGMNuiNT2QUK2jvqT8OD4BaRJeAZHeSEKodWLvBQt9Q91edQRnVEdnIP0YOPW+Antelmo+Pg0KIC MqLXBjSWKfIsGaPAZHCfXnR6CcG8TZb1FbT3LcMG59vGkjtjXkHQylYX8XNV3dZXLlFUGBTB2HzAYhoD 9uoeW8BDKsRPHCEaOsA25thQOlTMDwLRBsQWQzOr8B NARmP2ClrvEtcLqvgyGdJSNnFHMVJQ8LSItxsbOlvEOdzKjeAL34wTgyOA3RGp5SKkOeQQ4pex6LbBXh Lv3WKUY2BM4AKBLiKMWfQLIzVNN6TKIyZuYqYEtvQEPxVSCgCQO2QJNaTFZmKA0MNxNuEZQhXVs5MMZf ZZLcJJKrkq3RRQLrDXP1GBM2VvVaEGCsTQQfZXbjAB PuKLIcURX8GCPaDVDmRF6CNnLlYHOdSXPfDgJtPGBrLGVyvt8UPHHhJZXpIGP4FKAoCJNrALYyGEfiHE QvFJL3SgG7TUSsOZUrNG3WBaEfPPNjHPb0RKPuVUDuWDOseb1FRNHrZLClSZC8ZsDbKXEwSHDgXUbjBX ZeEQZdHsYbVSRkCFVlEZ8QHmKxJOXqKFE9GhPuNWVa CAKpgs8XAHLhEJQkJfK2EZNpKLViRCOlKIocHIAiJJF3TpSkSWSrEBXbOU2WFeInLCVyATI4DSmzRHHx KTIcvf5HUQRfGOKnYPOkMAJtUQAzIYWkAOdqNYCuHQQdXXYmBKTqPCNoLF4ZZiUwIJHyReR0IqXrDPYu RTNbfl0XHVDeLMSeNPM2VcCvQXIeBTYhYCvrVKUxGZ D3TQU7RGVrODRsYI8TTaQfRTZeNrswQoYdEREpVPPmni1DLDEyFOWhDRz2LqXaUCSpVNZtZJhxZQVzEG TiYQytRYZtWMBeKU6UQnQfMVOeEsRjEUPdYMPwVYLwhs3QVBXhARXxQkR6YYMlZMQoVWHiGGhqWYByXZ LrKPQpOQWvIIXbQN1JMyHuVXOcXbU8YOGiKWBrNBYf ue2GTFHnAEElYqM6NsJbQVOrWNGaKSloMKNkXOFcUTfsAYDdWNTiYS6UUkYnHGNdGTLeSQMeAUMrPFBx ou7ZBULmLPP4CQTwEgLaGNSgRFKxIZcrGMAqWAC3VOB2TIHxRCDhYK7FLcNrAWSpEAIyYFQtHQLjHLWg ci6EUJDjKQS3LgS0TOWmRQCuLTDtYUdvPTCvOGQ5LR e0AEBuXZJwIR3NPwMxMIMbSUoxAcupUCIsTLUwao8HFVScAUT3WaE7UPFmHZRlDGXwAKnbNMPoGUI4WU G9CSDdTIObRA3CBaZdIRNdIXz2CKGmHXCmYDLwxz4BRNGkFQM4HRf9KZQhALQvRQBmZDkfLHBgIDN1Ft OmAUHaMZGbJO8PGaYgEYLmMSS5ZOFyOJPpGONncq2Z WSZqKEY1HIi3RcQgKXChQDQbVDteTTSiQKInOTCuAPHhVAWfYG5OWnUwMJphOOMSPpk9IXsuZ5u6KFS0 ZU2IS6Jva5ThTZUwCZTYMAylUB2omdRxSEXhUm0IK4nWEtidVPP1YeTfGLC1DKUfBGX8SSKpCehoXTKk FYAeLFeoVp1dJKG5DsdtClZdYGJ1GzOzBdH3SMK3NR H4C7U1FnVjOJQgYmRaQU9ENs3SEoW5AIG8kTKoQs7JOOWoDnTEDrZeGJ9XCHt= ID Date Data Source [id number] 08/20/2019 08:19:25 AM EDT [facility] Name Value Range Interpretation Code Description Data Lynn rce(s) Supporting Document(s) Leukocytes [#/volume] in Blood by Automated count 7.2 10*3/uL 4-10 [facility] Erythrocytes [#/volume] in Blood by Automated count 2.79 10*6/uL 4.1- 5.3 L [facility] Hemoglobin [Mass/volume] in Blood 9.6 g/dL 11.5-15.5 L [facility] Hematocrit [Volume Fraction] of Blood by Automated count 29.0 % 3 6-45 L [facility] Erythrocyte mean corpuscular volume [Entitic volume] b y Automated count 104.0 fL 80-96 H [facility] Erythrocyte mean corpuscular hemoglobin [Entitic mass] by Automated count 34.6 pg 27-33 H [facility] Erythrocyte mean corpuscular hemoglobin concentration [Mass/volume] [facility] 33[facility]2 g[facility] width [Ratio] by Automated count 22.9 % 11.5-14.5 [facility] Platelets [#/volume] in Blood by Automated count 296 10*3/uL 150-400 [facility] Differential cell count method - Blood [facility] Neutrophils/100 leukocytes in Blood by Automated count 60 % [facility] Lymphocytes/100 leukocytes in Blood by Automated count 29 % [facility] Monocytes/100 leukocytes in Blood by Automated count 10 % [facility] Eosinophils/100 leukocytes in Blood by Automated count 0 % [facility] Basophils/100 leukocytes in Blood by Automated count 1 % [facility] Neutrophils [#/volume] in Blood by Automated count 4.34 10*3/uL 1.8-7 .0 [facility] Lymphocytes [#/volume] in Blood by Automated count 2.09 10*3/uL 1.2-4 .0 [facility] Monocytes [#/volume] in Blood by Automated count 0.69 10*3/uL 0-0.8 [facility] Eosinophils [#/volume] in Blood by Automated count 0.01 10*3/uL 0-0.5 [facility] Basophils [#/volume] in Blood by Automated count 0.04 10*3/uL 0-0.2 [facility] Nucleated erythrocytes/100 leukocytes [Ratio] in Blood by Automated count 0 /100{WBCs} 0-0 [facility] ID Date Data Source [id number] 08/20/2019 08:43:05 AM EDT [facility] Name Value Range Interpretation Code Description Data Lynn rce(s) Supporting Document(s) Albumin [Mass/volume] in Serum or Plasma by Bromocresol green (BCG) dye binding method 3.1 g/dL 3.5-5.2 [facility] Bil[facility].total [Mass/volume] in Serum or Plasma 0.2 mg/dL <1.2 [facility] Calcium [Mass/volume] in Serum or Plasma 8.8 mg/dL 8.6-10.0 [facility] Chloride [Moles/volume] in Serum or Plasma 95 mmol/L 98-107 L [facility] Creatinine [Mass/volume] in Serum or Plasma 1.01 mg/dL 0.50-0.90 H [facility] Glucose [Mass/volume] in Serum or Plasma 298 mg/dL 70-140 H [facility] Alkaline phosphatase [Enzymatic activity/volume] in Serum or Plasma 97 U/L 35-104 [facility] Potassium [Moles/volume] in Serum or Plasma 4.0 mmol/L 3.4-5.1 [facility] Protein [Mass/volume] in Serum or Plasma 6.4 g/dL 6.4-8.3 [facility] Sodium [Moles/volume] in Serum or Plasma 132 mmol/L 136-145 L [facility] Aspartate aminotransferase [Enzymatic activity/volume] in Serum or Plasma 18 U/L <32 [facility] Urea nitrogen [Mass/volume] in Serum or Plasma 10 mg/dL 6-20 [facility] Osmolality of Serum or Plasma by calculation 284 mosm/kg 275-300 [facility] Creatinine/Urea nitrogen [Mass Ratio] in Serum or Plasma 10 [facility] Bicarbonate [Moles/volume] in Serum 23 mmol/L 22-29 [facility] Alanine aminotransferase [Enzymatic activity/volume] in Seru m or Plasma 14 U/L <33 [facility] Anion gap 3 in Serum or Plasma 14 mmol/L 8-15 [facility] Glomerular filtration rate/1.73 sq M pre dicted among non-blacks [Volume Rate/Area] in Serum or Plasma by Creatinine-based formula (MDRD) 63 mL/min/1.73m2 >60 [facility] Glomerular filtration rate/1.73 sq M pre dicted among blacks [Volume Rate/Area] in Serum or Plasma by Creatinine-based formula (MDRD) 73 mL/min/1.73m2 >60 [facility] ID Date Data Source [id number] 08/20/2019 08:43:05 AM [facility] Name Value Range Interpretation Code Description Data Lynn rce(s) Supporting Document(s) Thyrotropin [Units/volume] in Serum or Plasma 1.100 u[IU]/mL 0.270-4. 200 [facility] ID Date Data Source [id number] 08/20/2019 10:31:49 AM [facility] Value Range Interpretation Code Description Data Lynn rce(s) Supporting Document(s) Cobalamin (Vitamin B12) [Mass/volume] in Serum or Plasma 615 pg/ml 2 11-946 [facility] ID Date Data Source [id number] 08/20/2019 10:31:49 AM [facility] Value Range Interpretation Code Description Data Lynn rce(s) Supporting Document(s) Ferritin [Mass/volume] in Serum or Plasma 373 ng/ml 13-150 H [facility] ID Date Data Source [id number] 08/20/2019 10:31:49 AM [facility] Value Range Interpretation Code Description Data Lynn rce(s) Supporting Document(s) Iron [Mass/volume] in Serum or Plasma 121 ug/dl 37-145 [facility] Transferrin [Mass/volume] in Serum or Plasma 165 mg/dL 200-360 L [facility] Iron binding capacity [Mass/volume] in Serum or Plasma 229 ug/dl 228 -428 [facility] Iron saturation [Mass Fraction] in Serum or Plasma 53.0 % 20-55 [facility] ID Date Data Source [id number] 08/24/2019 03:06:11 PM [facility] Value Range Interpretation Code Description Data Lynn rce(s) Supporting Document(s) Thiamine [Moles/volume] in Blood 132.6 nmol/L 66.5-200.0 [facility] (NOTE)This test was developed and its pe rformance characteristicsdetermined by [employer]. It has not been cleared or approvedby the Food and Drug Administration.Performed At: [facility] [place], [place] [id number] Sneed MD Ph:[phone] ID Date Data Source [id number] 08/26/2019 02:07:43 PM [facility] Name Value Range Interpretation Code Description Data Lynn rce(s) Supporting Document(s) Pyridoxine [Mass/volume] in Serum or Plasma 20.0 ug/L 2.0-32.8 [facility] (NOTE)This test was developed and its pe rformance characteristicsdetermined by [employer]. It has not been cleared or approvedby the Food and Drug Administration.Performed At: [address] [id number] Sneed MD Ph:[phone] ID Date Data Source [id number] 08/20/2019 03:33:03 PM [facility] Name Value Range Interpretation Code Description Data Lynn rce(s) Supporting Document(s) Folate [Mass/volume] in Serum or Plasma >4.77 [facility] ID Date Data Source [id number] 08/15/2019 06:28:18 PM [facility] CT THORAX WITH CONTRAST [id number] RESUL TInterpreted by:Farooq Otero MDINDICATION: Follow-up extensive [...] rce(s) Supporting Document(s) ID Date Data Source [id number] 08/15/2019 11:09:58 AM [facility] CT ABDOMEN PELVIS WITH CONTRAST [id number] AL RESULTInterpreted by:Jose Antonio Guan, Gabriela Parker [...] rce(s) Supporting Document(s) ID Date Data Source [id number] 07/23/2019 04:33:48 PM EDT [facility] Name Value Range Interpretation Code Description Data Lynn rce(s) Supporting Document(s) Progress Note [facility] QGHAXd2gKfGUZwDs60/XZJzmASEfn1IuWYgpERr6IPctTHJnM8BjUHR6jJ6gTZG4IHwCMdMgUnPlXNP9 lbm [file] 7Ni2JpdhM7syPyJDgcEQN9WF3BMESQL6HPDm== ID Date Data Source [id number] 07/23/2019 04:33:43 PM EDT [facility] Name Value Range Interpretation Code Description Data Lynn rce(s) Supporting Document(s) Progress Note [facility] NOZKMc7jFiTVDnEn40/RAThpFWWiw3RcWChbQXx3HMepRWJwU8QfXGZ7mG7zMMM1LFxRFsUlNvTqHHU5 lbm [file] ICAgICAgICAgICAgICAgICAgICAgICAgICAgICAgICAgICAgICAgICAgICAgICANCiAgICAgICAgICAg ICAgICAgICAgICAgICAgICAgICAgICAgICAgICAgIC AgICAgICAgICAgICAgICAgICAgICAgICAgICAgICAgICAgICAgICAgICAgICAgICAgICAgICAgICANCi AgICAgICAgICAgICAgICAgICAgICAgICAgICAgICAgICAgICAgICAgICAgICAgICAgICAgICAgICAgIC AgICAgICAgICAgICAgICAgICAgICAgICAgICAgICAg ICAgICAgICANCiAgICAgICAgICAgICAgICAgICAgICAgICAgICAgICAgICAgICAgICAgICAgICAgICAg ICAgICAgICAgICAgICAgICAgICAgICAgICAgICAgICAgICAgICAgICAgICAgICAgICANCiAgICAgICAg ICAgICAgICAgICAgICAgICAgICAgICAgICAgICAgIC AgICAgICAgICAgICAgICAgICAgICAgICAgICAgICAgICAgICAgICAgICAgICAgICAgICAgICAgICAgIC ANCiAgICAgICAgICAgICAgICAgICAgICAgICAgICAgICAgICAgICAgICAgICAgICAgICAgICAgICAgIC AgICAgICAgICAgICAgICAgICAgICAgICAgICAgICAg ICAgICAgICAgICANCiAgICAgICAgICAgICAgICAgICAgICAgICAgICAgICAgICAgICAgICAgICAgICAg ICAgICAgICAgICAgICAgICAgICAgICAgICAgICAgICAgICAgICAgICAgICAgICAgICAgICANCiAgICAg ICAgICAgICAgICAgICAgICAgICAgICAgICAgICAgIC AgICAgICAgICAgICAgICAgICAgICAgICAgICAgICAgICAgICAgICAgICAgICAgICAgICAgICAgICAgIC AgICANCiAgICAgICAgICAgICAgICAgICAgICAgICAgICAgICAgICAgICAgICAgICAgICAgICAgICAgIC AgICAgICAgICAgICAgICAgICAgICAgICAgICAgICAg ICAgICAgICAgICAgICANCiAgICAgICAgICAgICAgICAgICAgICAgICAgICAgICAgICAgICAgICAgICAg ICAgICAgICAgICAgICAgICAgICAgICAgICAgICAgICAgICAgICAgICAgICAgICAgICAgICAgICANCjw/ cJEmM4ymzONucjL1L3ntGx5QEw9NLE9sp6EuGHEuLN aoayVsSknWUnXtUNAjXbpYTob6VKrzRF9ZoLTjI0PnW7AzWIaeSP1VJKAsLLVlyZAwMQMgQCWaZiX5LZ SbLBrnFG2ZkHSbLCwrKCGrLGMfWgTeRSOrQIFfYWGaSPKdWEBDLZUmXNDdXgDdDYHzAWKcTNfmHHFCIY B2FYMzLxTlKQopBL9Nk5RhyKN0YOk+Jn1UWS3rt9Og EPohYZPwRJ5phq6DAKvPLsUtA8VwxtK4PGBkQETySq3VLZTyAEXdkCZ0SNQrJAOJSeEcO5WvrZ06NMZI Cj4+BPehpgWxVbbOJbRrZPXax2AyTCp2EE2LEHIzQRs5cLTbVVQgD0Qze3ZuYy41AKUdKttnTAB1btQn OR0xFGBtLWTcHF2exobsLOHrDLDlDI0eOa7wYPXmSX T3TxQwDBDQMD0XGEFkTBXvsKFuMOMtARXOJB2UFWzhPNE1YWBsyhHviOQsQGdbHM0MHHQxjkEzZwtbIT BSDQo+Qm4QFL7jw3EgKAr2CIPbFV4kyo3QYEfMRyGgE1G6zMQyR6R0DDiuJv6JJDKuCXBwSvsiSNEIHY maPJ0WAX6ftdM8IX0BmFXpUJWiVQYmwWPyAJu3R22s tDBsIEmyUW4YMEV+Antelmo+Si5NHQZwZHAjSPGvVuShWFJNRbVwM4NpK8JBx6FxA3WeKU22nCxkruKsRUyl LX4YRZ8iNQSfLIITBH8PqIWjeM8cepTvTCVeFXRAUfTmS81jaKOdGWVxBBZ2NJLzTf2SSPKeR0SchoEv sHddkuJyEIGpCZXEXE2PKRspstEucUEtvZntMQ46nD woAZ1NAt2JYjUxNH0hfm2ZcTXmZz0NSNB8Zt1DZJKsLZEjHGByUGP8ZOCdRrLdIFggHGVlJQNjROX0SC DvSDEiAS5MLtQbLANoULW7CNQgUACjEMUupq3FNCVmFBQ5LkueAHJoALNqJDPyNSauTRXqEXJcZBH9XJ SwKWMyYW6CHyJuOJXfEPBeVDTbGSMcJAStui6ONULi UJWiDSE2CnXrBWJnUBMjCXbpPXDyPOT2SfFnXLMoBEIaWT9JJiGvZMZdANs8IFMiHHRhHKPpet1JVMQy TAToJVE4QxMhATDoYPSaRJhrYBNsAWBqLdBaGASaNRIuHO1TUlTyEVNyBJT6RUUhAOOsJHZldl3QAJCm RUQcZXZ5OzOzLPKlWKSuFGunFHExQMA3OkU7DKVbOZ KhAG8ZDaQkEKVmFJC7FuGnPFEgDRQoqm2STNUcKFNfKVA7FEHtRLLfCWQjXRruUELwFEPuLqj8JHBkPR VxCO1DLwRyYOJbWlE9JWylSFJlIVTkvy0CBFMiDOByIHljDTFmQXQpQVNnSYvoCMRhTMO9VKy1PXRzXF OvEV1QXpQrLSArVsnrZKSbFSAdCQGwre9RQXFyRWNn XBZ0GEKtEOMfRDBxOJdcISBbLPH4CTE6TIYxLVYqHD1LEaNdAXCpUbt9XjKrGGOnPTHikf1TZQOzBUSe OIL5PKYpPXJyVTLoATcsOQYaORDsKkcjQSXhYGAbRT4FSyDlWYKoWwX1AovzDJNdGRImcj3BZHKcNAH3 NuX9RVFeXVOoYBWpEAhlKPIbIQDkJhY1KPKjWWCoCZ 9BVkXxSUFvGLL7NcRhWKEhAXWqjp2DPZTzBUT3FaO1PbRbPWHuNWOqGDbqGAXkLYQzMgO6BKDhKLKeNQ 8ADoMjSNVdJKHdZaZnQCRnCMIllx0LMLHaFRK2WRY6ADEcQKKoGUOmILqvIQFtEJZ5LaO8RRNyXNZzKI 0PHbYmHIKoHVZ1JINcZYTuWPEwau7YHKRcURO4HWb1 QTZnIIPjGIEpNIwgNSJqVWI3RNT9ATKhGPChMM7OHnYzJLIoZBViKCSuTQQxSJRext9OLKCkFCF6Ntz4 TnTrYXGpQJUqWBukGJUjSVE1HMP0WGKaJCVrWU9KRxJpMSEvVBiyUYXoPXSjVCHyty6QuFKrvUvigq6L QTxZNm4KkHcdWJEySTtrZk3rnWF9HYLgQIWZYf0Sxj RjGXVxENPAJDfcWCWwPZD9WZZmD8AjB8JgMFQzJFDsHZxzKPW5YkX4ULP1YMC9XeZ0VcNdFKCjUxX0KF VsOLX2EXDuLYFnSAs7WAk6QJOgNGF+NT3jGCj+Am4Lv2QhdvF0wqVmUPz2EIW1PI3GZTTXR8RNYh== ID Date Data Source [id number] 07/23/2019 02:04:15 PM EDT [facility] Name Value Range Interpretation Code Description Data Lynn rce(s) Supporting Document(s) Progress Note [facility] WEWHVo0pHjIMOlTt77/TTSbpEMBez5MySChwFNq9JFubUNZuB8SkQVC3aK8nOJC2OZsRQjFiNoOpQRF8 lbm [file] AwMDAwNzkxMyAwMDAwMCBuDQowMDAwMDEwODUxIDAw ZOMwWP0EBgAtKIZwMMFyXDYfIWNgKMRwot4WVSJbKDMuKtqyHLJaRSQgBJBiKOptESCtJKT8SWR5HJXd QULkEZ8PWdDkIRTmXDQuJsnbKSVlHRZbgp1NXWGlKOTiWhIkFdKtWBRsAFUpODjfWHKxYIH6TDQ1AFNc HJKhPA4PNsIhISEhQDu4NAIgGKKqDJAfzl3ENWJbSM CjOSQaFqIjCBYfKFDqZCumPCRmASN1AFN8TLHwFTJbFT9ICpVbIOLvSLd2IRMdOGMeDVJjxf6CSGXiFV FdOTe7LXRbBKXsLQZmQXduUDXoHGTdGTQxUUOdSDCgRY1KIeTsEFTfRaDjHMYeVMZcQHQfco7KVTSwBR CsVve5GWJnSHAaYZYtMQftZSWqJEVrFAu3YVYvZVMe PM2OOpPvGPRaHeFnOTGbZFTxPQWrlf2TMCWrBIAzXrZ5TMPtTEGwGEGcVLzyAZUbSNOqIcUlKVMeSOUg FU8EAcJlNGArZxX8IQHtZZFrRGJpea1ULBYwLGHwFMbcIiRiQGBxUSHjBBsrPUNlYYA3PXJoCKFbVSGc ZC8GTeJfGRVjGbZ4VoukNNVcYAThqv4ZYTLfHNCpJn x3YAOsRJVzHBEgQUnlCFRjAUI9MArtPZPoTMKtTW6ERyIwJTDqYpiqAdZyKMEdDIOzot3HfVAykGesze 2MAIuVIt7XrTizFKH5FMlsYa7wqWLgHAHkSZCCQa7YrcWcJXUmMZSNRBucWZPmZHLbUwN6KSCtJYIkEY P0SUUsEDszTtifNEV2IvPfHFM0BaN1K6S3FkGgKCYw +GU1tNPb+Px6Ty9RwfzX0eeFmPKrdEtU9Pw7IUBKEW3BUIv== ID Date Data Source [id number] 07/23/2019 09:29:13 AM EDT [facility] Name Value Range Interpretation Code Description Data Lynn rce(s) Supporting Document(s) Leukocytes [#/volume] in Blood by Automated count 7.2 10*3/uL 4-10 [facility] Erythrocytes [#/volume] in Blood by Automated count 3.26 10*6/uL 4.1- 5.3 L [facility] Hemoglobin [Mass/volume] in Blood 10.8 g/dL 11.5-15.5 L [facility] Hematocrit [Volume Fraction] of Blood by Automated count 31.2 % 3 6-45 L [facility] Erythrocyte mean corpuscular volume [Entitic volume] by Auto mated count 95.7 fL 80-96 [facility] Erythrocyte mean corpuscular hemoglobin [Entitic mass] by Automated count 33.2 pg 27-33 H [facility] Erythrocyte mean corpuscular hemoglobin concentration [Mass/volume] by Automated count 34.7 g/dL 32.0-36.0 [facility] distribution width [Ratio] by Automated count 19.3 % 11.5-14.5 H [facility] Platelets [#/volume] in Blood by Automated count 348 10*3/uL 150-400 [facility] Differential cell count method - Blood [facility] Neutrophils/100 leukocytes in Blood by Automated count 41 % [facility] Lymphocytes/100 leukocytes in Blood by Automated count 43 % [facility] Monocytes/100 leukocytes in Blood by Automated count 10 % [facility] Basophils/100 leukocytes in Blood by Automated count 3 % [facility] Neutrophils [#/volume] in Blood by Automated count 2.95 10*3/uL 1.8-7 .0 [facility] Lymphocytes [#/volume] in Blood by Automated count 3.10 10*3/uL 1.2-4 .0 [facility] Monocytes [#/volume] in Blood by Automated count 0.72 10*3/uL 0-0.8 [facility] Basophils [#/volume] in Blood by Automated count 0.22 10*3/uL 0-0.2 H [facility] Band form neutrophils/100 leukocytes in Blood by Manual count 2 % [facility] Metamyelocytes/100 leukocytes in Blood by Manual count 1 % [facility] Band form neutrophils [#/volume] in Blood by Manual count 0.14 10*3 /uL 0-0.6 [facility] Metamyelocytes [#/volume] in Blood by Manual count 0.07 10*3/uL 0-0 H [facility] ID Date Data Source [id number] 07/23/2019 10:11:53 AM EDT [facility] Name Value Range Interpretation Code Description Data Lynn rce(s) Supporting Document(s) Albumin [Mass/volume] in Serum or Plasma by Bromocresol green (BCG) dye binding method 3.2 g/dL 3.5-5.2 L [facility] Bilirubin.total [Mass/volume] in Serum or Plasma 0.3 mg/dL <1.2 [facility] Calcium [Mass/volume] in Serum or Plasma 9.5 mg/dL 8.6-10.0 [facility] Chloride [Moles/volume] in Serum or Plasma 96 mmol/L 98-107 L [facility] Creatinine [Mass/volume] in Serum or Plasma 1.03 mg/dL 0.50-0.90 H [facility] Glucose [Mass/volume] in Serum or Plasma 301 mg/dL 70-140 H [facility] Alkaline phosphatase [Enzymatic activity/volume] in Serum or Plasma 122 U/L 35-104 H [facility] Potassium [Moles/volume] in Serum or Plasma 4.5 mmol/L 3.4-5.1 [facility] Protein [Mass/volume] in Serum or Plasma 6.8 g/dL 6.4-8.3 [facility] Sodium [Moles/volume] in Serum or Plasma 132 mmol/L 136-145 L [facility] Aspartate aminotransferase [Enzymatic activity/volume] in Serum or Plasma 15 U/L <32 [facility] Urea nitrogen [Mass/volume] in Serum or Plasma 13 mg/dL 6-20 [facility] Osmolality of Serum or Plasma by calculation 284 mosm/kg 275-300 [facility] Creatinine/Urea nitrogen [Mass Ratio] in Serum or Plasma 13 [facility] Bicarbonate [Moles/volume] in Serum 24 mmol/L 22-29 [facility] Alanine aminotransferase [Enzymatic activity/volume] in Seru m or Plasma 17 U/L <33 [facility] Anion gap 3 in Serum or Plasma 12 mmol/L 8-15 [facility] Albumin/Globulin [Mass Ratio] in Serum or Plasma 0.9 [facility] Glomerular filtration rate/1.73 sq M pre dicted among non-blacks [Volume Rate/Area] in Serum or Plasma by Creatinine-based formula (MDRD) 62 mL/min/1.73m2 >60 [facility] Glomerular filtration rate/1.73 sq M pre dicted among blacks [Volume Rate/Area] in Serum or Plasma by Creatinine-based formula (MDRD) 71 mL/min/1.73m2 >60 [facility] ID Date Data Source [id number] 07/23/2019 10:11:53 AM [facility] Name Value Range Interpretation Code Description Data Lynn rce(s) Supporting Document(s) Magnesium [Mass/volume] in Serum or Plasma 1.5 mg/dL 1.6-2.6 L [facility] ID Date Data Source [id number] 07/23/2019 10:11:53 AM [facility] Value Range Interpretation Code Description Data Lynn rce(s) Supporting Document(s) Thyrotropin [Units/volume] in Serum or Plasma 0.482 u[IU]/mL 0.270-4. 200 [facility] ID Date Data Source [id number] 07/22/2019 11:10:56 AM [facility] Value Range Interpretation Code Description Data Lynn rce(s) Supporting Document(s) Progress Note [facility] MTWILq9tZdHEPtIq38/XHLgyCERwq5IwIEefJPm3TUxvQCDoV0AqELK3tW2nYSN3WAnVWpFlLnLwYZP1 lbm [file] AwMDAxMjExNSAwMDAwMCBuDQowMDAwMDEyMzEyIDAw TYGeXH9ADuUbDXXuREC9AQXcTPMmOQZpkc6YTBGxDRWdDrU5MWBoZCNqUYCuXAhbSZWjMKFaCmP9AIXj JVRsFQ0XRzAsRVQeDEP9OSFzKTLsOWAmwm6EXRFbAVPjOGZ1VAEzIIVlVAQzPAgpKNBqAWO2MFc6VHAq KWJaTF3FPcQuAWOmHbM0TAezJEFhEBFqkc4YVJBoMM NaFsG5WRZxNZWoSHAnNDjcPJMzULC2JtY8ARVnAFYwIU6QClYpKRJhHrD5DDJaYYHuQSQcwg7OAHEaZE VmMVX6ZVPwIYLdRGJnEZgzJDFiBAR4LFA5AZXxKJFgGF9EDqWsGEXiTwwxVtRkAHYjHDYtfq2ZyKKeaN pght3VBSbYZn2DaElwVQY0RLxyKk1ztJHyKPIkQBBN Xs6NlkXoFEOhPATAZScyENLvDKYmUMYlDvv4NLPeHlVlOKAmZeR7Ylb6TbjwIvAcEMr6GjW0OzS1ZwT2 OdA8YGC1WBE5QLDoUmY8ITj9FQFkKDS2JVQ+DL9tYJe+Ti7Yw7JirlM3unHaDAkzHQGtTQ2BATBCL1SI Cg== ID Date Data Source [id number] 07/14/2019 03:10:06 PM EDT [facility] MR BRAIN WITH AND WITHOUT CONTRAST [id number] FINAL RESULTInterpreted by:Brady Luciano MDEXAMINATION: MR BRAIN WITH AND WITHOUT CONTRAST [id number] INDICATION: History of small cell lung cancer [...] rce(s) Supporting Document(s) ID Date Data Source [id number] 07/04/2019 07:56:29 AM EDT [facility] Name Value Range Interpretation Code Description Data Lynn rce(s) Supporting Document(s) Progress Note [facility] FNITDi8oSaQWVbXh56/CBNdxQNSuz7YgWNkfKUj4WXedGPKoL1XbUVR8kK6yJCF6BFyPNpTfZmWbJYL3 lbm [file] AgICAgICAgICAgICAgICAgICAgICAgICAgICAgICAgICAgICAgICAgICAgICAgICAgICAgICAgICAgIC AgICAgICAgICAgICAgICANCiAgICAgICAgICAgICAg ICAgICAgICAgICAgICAgICAgICAgICAgICAgICAgICAgICAgICAgICAgICAgICAgICAgICAgICAgICAg ICAgICAgICAgICAgICAgICAgICAgICAgICANCiAgICAgICAgICAgICAgICAgICAgICAgICAgICAgICAg ICAgICAgICAgICAgICAgICAgICAgICAgICAgICAgIC AgICAgICAgICAgICAgICAgICAgICAgICAgICAgICAgICAgICANCiAgICAgICAgICAgICAgICAgICAgIC AgICAgICAgICAgICAgICAgICAgICAgICAgICAgICAgICAgICAgICAgICAgICAgICAgICAgICAgICAgIC AgICAgICAgICAgICAgICAgICANCiAgICAgICAgICAg ICAgICAgICAgICAgICAgICAgICAgICAgICAgICAgICAgICAgICAgICAgICAgICAgICAgICAgICAgICAg ICAgICAgICAgICAgICAgICAgICAgICAgICAgICANCiAgICAgICAgICAgICAgICAgICAgICAgICAgICAg ICAgICAgICAgICAgICAgICAgICAgICAgICAgICAgIC AgICAgICAgICAgICAgICAgICAgICAgICAgICAgICAgICAgICAgICANCiAgICAgICAgICAgICAgICAgIC AgICAgICAgICAgICAgICAgICAgICAgICAgICAgICAgICAgICAgICAgICAgICAgICAgICAgICAgICAgIC AgICAgICAgICAgICAgICAgICAgICANCiAgICAgICAg ICAgICAgICAgICAgICAgICAgICAgICAgICAgICAgICAgICAgICAgICAgICAgICAgICAgICAgICAgICAg ICAgICAgICAgICAgICAgICAgICAgICAgICAgICAgICANCiAgICAgICAgICAgICAgICAgICAgICAgICAg ICAgICAgICAgICAgICAgICAgICAgICAgICAgICAgIC AgICAgICAgICAgICAgICAgICAgICAgICAgICAgICAgICAgICAgICAgICANCiAgICAgICAgICAgICAgIC AgICAgICAgICAgICAgICAgICAgICAgICAgICAgICAgICAgICAgICAgICAgICAgICAgICAgICAgICAgIC AgICAgICAgICAgICAgICAgICAgICAgICANCjw/eHBh C0dfqPCaorD2F9xlPv4PSi2TMX8fx7HxNRBdVMlnvlRkFibQCiCzCZYaIcxDZup9XHvnFJ1SgVPhB8Ns L9MiKMfsCL0VJKZrVMUglUWyVVAgWBXxQqC3DZIvRQnxQD2QjBSvJMynVCMvAVPdPE9SLIBxI381kpDm XB8ODq4ZIsTsDS6xet5CPYjrNGXcEsrUJgx4LArgCF 5YzILzjSWjEJHnARGERzDkB0irt6HjHoTqCAZDVAhvFN7Yx0GgzKSpMOm+Kz5NPZ6jw2RrGBlfPSBkNE 3yup2JSVuYIqFvK8XppIyrUQLem3jhFOFcND3rcRHmBWU7LXSawb1ltoBbIcCGg1xjd1peDF5VJTD9PT IeYj7xAIDkGGLnYaPbKCFCPA0NXBPqNEEatLHtFRHg NNHQRA3QFNdzNBT0WWIwccOnmGQhPZdpRO5BNXRzrlJsFUonULNTBZa+Em3LYF7fo5KuNYudHBEiTL2c ho7FNUwZYzJyF0X9rIXlP7D7PRslDz9LJMPxAFLpZEigQXGYSLfvAD3SPF2epwR5HX6PvOFdTKUtDGAz bYLfELq3K27uxEPjVHhyHB8WPQU+Antelmo+Bb3CNOPyXJ CqYUJuYgIvHMIALePzC9YlG5LEm6BhZ2ExVC27gEsvjmAoOMxlZG0KJN5yZOOyUBJLKJ1YqCXaoE3mct AqPTZeZZCXPnQiA82tjVPiSDDbMEI7TOFwWu0DFXBfQ6JbrcKsbGusnjUgDJUaAMIJIB8TBEijurGelM HgrIlfOB46rKnnYV2IMk6DXoUgMN5fjr4QlZDtPg4B QTVmIn0CXJDrLUBrTJVcWEH3TVNgEnTvVXtqPFOvQZEdPFU3HMNgXFEfOW6JGbKpFHCpLTZ9LFRqTRHg OJBrzv3OOCEnZALjSGGyOISxQOXgTXBtUDnrOLMqDJNmKTZ7NTTfGBKaOB0MMuZjXUBvQMT7BxgyFBRo QLFmqr5UTDNsBGEmTBrxGlLqBLRsDWInXBjyMPJcZH XgArhuKCQhZMDlVF9ARcPlSOAnCCH1LEuuDDZiTHEjue2QOKSjEIKeYaL3AnAsAXTyOBXvDPrfQRTyEN P3BJZ7YLDbHCLuOX7GCdMiZCWqEANoFdsdTSOvLVLjyt2BLRVoELFfHZUgSMCiJGUgNEQqQEjgTQEbTV B4ONB3NZBaDVIqTD3HFaRyHSCvJQCzWTCrNISfONLq ej6IDCWyNEUoLgN0WJFqAFGvPSYkKXvzRCEtMYR9NvF2VXBnNWSoXX1XPqXfYZQfDTR1LAGnGKOhGZBi fw9KWIWrEKEvEgG9ADQpLQPaXVEjLUorCLRdSGZ3KsU9VHIpKYBcKP7WIcCjWSRzIJs8BAepZSJdORMm hz6DGSRiSSMdWEayIGHyEKBqBBZlIDm1swLrkBGmDO q0NW2GF9EawvPsNeJRRg3Wq515ABEoPQRxNp7IZ3wpRb5zTFUxSYCONa1WOVi6JvS7NOG1UDY5IQU4Gf u6TtT6EJMaRBl5PCdnHyxjTYH+ZAf9JBpvEya2QuWxJEmhTkDhFclkJtK2MGVjZARxOOO2Ii2xOAYFJd 4+BNdvaQCziFgeNOYSWyA7IRnsWBydSYXKIe8M ID Date Data Source [id number] 07/04/2019 07:56:24 AM EDT [facility] Name Value Range Interpretation Code Description Data Lynn rce(s) Supporting Document(s) Progress Note [facility] AEEJGz0pAoJOPqOh18/PKJwjKJFws5IyWKszERb8NDpgONTiB3RzKKO0hH7hOWF8QSjMWzLoQjNiYGC9 lbm [file] AgICAgICAgICAgICAgICAgICAgICAgICAgICAgICAgICAgICAgICAgICAgICAgICAgICAgICAgICAgIC AgICAgICAgICAgICAgICAgICAgICAgICAgICAgICAN CiAgICAgICAgICAgICAgICAgICAgICAgICAgICAgICAgICAgICAgICAgICAgICAgICAgICAgICAgICAg ICAgICAgICAgICAgICAgICAgICAgICAgICAgICAgICAgICAgICAgICANCiAgICAgICAgICAgICAgICAg ICAgICAgICAgICAgICAgICAgICAgICAgICAgICAgIC AgICAgICAgICAgICAgICAgICAgICAgICAgICAgICAgICAgICAgICAgICAgICAgICAgICANCiAgICAgIC AgICAgICAgICAgICAgICAgICAgICAgICAgICAgICAgICAgICAgICAgICAgICAgICAgICAgICAgICAgIC AgICAgICAgICAgICAgICAgICAgICAgICAgICAgICAg ICANCiAgICAgICAgICAgICAgICAgICAgICAgICAgICAgICAgICAgICAgICAgICAgICAgICAgICAgICAg ICAgICAgICAgICAgICAgICAgICAgICAgICAgICAgICAgICAgICAgICAgICANCiAgICAgICAgICAgICAg ICAgICAgICAgICAgICAgICAgICAgICAgICAgICAgIC AgICAgICAgICAgICAgICAgICAgICAgICAgICAgICAgICAgICAgICAgICAgICAgICAgICAgICANCiAgIC AgICAgICAgICAgICAgICAgICAgICAgICAgICAgICAgICAgICAgICAgICAgICAgICAgICAgICAgICAgIC AgICAgICAgICAgICAgICAgICAgICAgICAgICAgICAg ICAgICANCiAgICAgICAgICAgICAgICAgICAgICAgICAgICAgICAgICAgICAgICAgICAgICAgICAgICAg ICAgICAgICAgICAgICAgICAgICAgICAgICAgICAgICAgICAgICAgICAgICAgICANCiAgICAgICAgICAg ICAgICAgICAgICAgICAgICAgICAgICAgICAgICAgIC AgICAgICAgICAgICAgICAgICAgICAgICAgICAgICAgICAgICAgICAgICAgICAgICAgICAgICAgICANCi AgICAgICAgICAgICAgICAgICAgICAgICAgICAgICAgICAgICAgICAgICAgICAgICAgICAgICAgICAgIC AgICAgICAgICAgICAgICAgICAgICAgICAgICAgICAg ICAgICAgICANCjw/gGQbT4ktfCWeobD9H1vwIu8NTh4RHV2jj5XqZGIuEBqkfeTtFbxKSrLgCCHnCluR Frw7IBueSX9OqEYuL4MxE9CqRTplMW4EXMDxBCCqkWPgSAHyFAFzXzV8BAMvJMkuOK1RcINeFKziALSu IFIgNyAwIFIgOSAwIFIgMTEgMCBSIDEzIDAgUiAxNS JqJMAsVTniFIYAQTN5RCUnJuEtISjzQK0Ae0HxdOY1VFa+Mh4VTH8ts5EsVVawPOFyAE2lec0UCIaGVp MeX1JclbE2IKStLWNqFv8JDLSqQCCfqRR4LEByWYPZFoNtG3UnkL75JVUHJc9+DQplbmRvYmoNCjQwID Taf5IgQWd5ZL6ZHGOvPOg0sJNyQDHrX8Qix2OwWp04 MXZiGipsRUL4vgRoFM4nPPDdNWNhKA5wnwjaQYSxKHHoIX18FbSgIoCtQOP9ZGYoLL3oSEyvSO1JONJ9 EHzxMYJdENGkX0tVSrHhAVLkCaRrwCypBS1HDhGsF7MbzjHplNDdNJRiZCSCUd6+DQplbmRvYmoNCjQx CGEgt3DgYGk6SF3AVZJeEMxkRY1MSROsuD3kSGbkBF 1AKzBxKrVpDGYWPeYcY77rqIZzMWw1W5LyExOtJNQnJashBCVcDXwrJqJlCBMbIaSbLEcrHI4+ID4+DQ pqKI4ETAdvzmZnBJPnLr6ZRYIeOKHxCQ3vZLUtLVLjQ4A4jZvyZJRPNkKvV0jqblrtAM6kJQTzY293vJ znspRzJAU1LSXyQn1IALDqGMZ3OJZmlFBbSckeZKMC OZwbBV3SnDPlHSN9oW1pTGlsZIEsCXZaF3lUYtKkcNfqQA94yWklcfMjxWUfALh+Us5XNV2rt7QrFMb4 ieUqTPuyDGErEQaxTLLeDLZmJSFsZZM8HTR1MPUHIqEyGZPzBGPjMWbiEELzQVPpzt2KSXTyNMO5NRA7 EENfNEDpXMDjDMgfMUWxEFS1LCRrICSjEWBvPT9HLp IoWTPzPUYxDQxsJYXoEHYmpm7XTOSuTDCrODB5UmWiXNFuOQZuVBkoAWPxVYG3UWKnPCFeVAKhJU5PYu CvLUPtAIvvYoVoLIKmGNBiie2PURUkPDFuTBQzFWOtIUEiYZFzQQnxGNGpNLQqQfJrXNLsATWuTA0OMz WvLWEvFVS2MJTdKRKbQIDunh5JXYBcPUDiMPF9DYSk REZpAVVxWXtqSHTdUOB4ZuI7XBAhVZEdSC0RWsVrONDnRGY1BAZeTSEqXWKful9VSEFxFXPuBpC0RHOx ADBpBNEdINckCSLrQOKtJlxcRQSyUEAiDS4NTvRxPOLrBcK4EAisCPLnYPOicw2UHVAxQGUtXSUfGCXw HWRoMJRuQDpkBOMuUYM2XpI7MYYlKSDzJF2ORmUyXT HbJqZ7HYHyCADtFQCjst7DPSLoDSTzEmx8JSJiTPHwILHaACqkYANcVEK9HNTxKPVzXJRfTN8LRyLhLF GzOwsbNFikCVArECDvqf5DEYIoCPBgXZQaUDKaTOQgOYDoOCokWQFdSOY2EuB5USOhQJUjUC2ORtAfKO SkFqs4PaMdJSVwMTVpmz5HVCMxGMGuFND5UYKdLLQp CUZmGOihCGVdEWGdRVn8ZUXpLPUbXS5TWgQsPMRdENY8KUKwPWKkRPHuzb2JYSBcKHB6ETTtTjEmRPJy WOKcLCvzWOGjDANtFOVaEFJsGRYeXQ0JFdHmLVKjGJUdPSecRIZiIJNmpr9QHJNjWYK5Ihg8WwIhLAGn KIKpWTruJXDqNUVoQHD6TDOySIKhXR7FKkXcWKAzNR YbOfqfOJHeXGZlrv1URCGySSE3TDY6YqBmAVHkWYPlRIoeAZXjMMQ3EJZaKJHoEMGiZT6BOhZvFDQkJT R4HxwnJDPvGAQsgb9NPMDjAKJ3SFF0ERIlYAJyAPXxCLygFZHmBAL0GWA5ROOcWHSiTH0HQwZwOIFkPS E8FsesLKUjSWYftw4GPXNyJYZ9Coi7QCAgNNTuVWSz HJx7iqXmiMAyNFl0YF9FV1PxzhJeKXCOVz4Gm330FDGmWLVrBb4TU9lgGw3bFVPsYJLYZu5YTFr9WpKa OeDsYwPsP5H1LFTlVSGvTrKrOQTnOCOsZTK9MbP+MUd7GJYcTOFkMoSyToX1IADkGlL0H6UdDCVfBdYi XZR3HN4kDKHWDi4+WWiifGKojUwsEJSOPvN7LOG0PIgrRCPZPi6U ID Date Data Source [id number] 07/02/2019 10:19:26 AM EDT [facility] Name Value Range Interpretation Code Description Data Lynn e(s) Supporting Document(s) Albumin [Mass/volume] in Serum or Plasma by Bromocresol green (BCG) dye binding method 3.6 g/[facility] [Mass/volume] in Serum or Plasma <1.2 [facility] Calcium [Mass/volume] in Serum or Plasma 8.8 mg/dL 8.6-10.0 [facility] Chloride [Moles/volume] in Serum or Plasma 98 mmol/L 98-107 [facility] Creatinine [Mass/volume] in Serum or Plasma 0.86 mg/dL 0.50-0.90 [facility] Glucose [Mass/volume] in Serum or Plasma 264 mg/dL 70-140 [facility] Alkaline phosphatase [Enzymatic activity/volume] in Serum or Plasma 111 U/L 35-104 [facility] Potassium [Moles/volume] in Serum or Plasma 3.6 mmol/L 3.4-5.1 [facility] Protein [Mass/volume] in Serum or Plasma 6.7 g/dL 6.4-8.3 [facility] Sodium [Moles/volume] in Serum or Plasma 137 mmol/L 136-145 [facility] Aspartate aminotransferase [Enzymatic activity/volume] in Serum or Plasma 16 U/L <32 [facility] Urea nitrogen [Mass/volume] in Serum or Plasma 12 mg/dL 6-20 [facility] Osmolality of Serum or Plasma by calculation 293 mosm/kg 275-300 [facility] Creatinine/Urea nitrogen [Mass Ratio] in Serum or Plasma 14 [facility] Bicarbonate [Moles/volume] in Serum 24 mmol/L 22-29 [facility] Alanine aminotransferase [Enzymatic activity/volume] in Seru m or Plasma 22 U/L <33 [facility] Anion gap 3 in Serum or Plasma 15 mmol/L 8-15 [facility] Albumin/Globulin [Mass Ratio] in Serum or Plasma 1.2 [facility] Glomerular filtration rate/1.73 sq M pre dicted among non-blacks [Volume Rate/Area] in Serum or Plasma by Creatinine-based formula (MDRD) 77 mL/min/1.73m2 >60 [facility] Glomerular filtration rate/1.73 sq M pre dicted among blacks [Volume Rate/Area] in Serum or Plasma by Creatinine-based formula (MDRD) 89 mL/min/1.73m2 >60 [facility] ID Date Data Source [id number] 07/02/2019 10:19:26 AM [facility] Name Value Range Interpretation Code Description Data Lynn rce(s) Supporting Document(s) Magnesium [Mass/volume] in Serum or Plasma 1.3 mg/dL 1.6-2.6 L [facility] ID Date Data Source [id number] 07/02/2019 10:20:54 AM [facility] Name Value Range Interpretation Code Description Data Lynn rce(s) Supporting Document(s) Leukocytes [#/volume] in Blood by Automated count 12.2 10*3/uL 4-10 [facility] Erythrocytes [#/volume] in Blood by Automated count 3.76 10*6/uL 4.1- 5.3 L [facility] Hemoglobin [Mass/volume] in Blood 12.1 g/dL 11.5-15.5 [facility] Hematocrit [Volume Fraction] of Blood by Automated count 35.6 % 3 6-45 L [facility] Erythrocyte mean corpuscular volume [Entitic volume] by Auto mated count 94.7 fL 80-96 [facility] Erythrocyte mean corpuscular hemoglobin [Entitic mass] by Automated count 32.1 pg 27-33 [facility] Erythrocyte mean corpuscular hemoglobin concentration [Mass/volume] by Autom[facility] count 33.9 [facility].0[facility] width [Ratio] by Automated count 15.4 % 11.5-14.5 [facility] Platelets [#/volume] in Blood by Automated count 392 10*3/uL 150-400 [facility] Differential cell count method - Blood [facility] Neutrophils/100 leukocytes in Blood by Automated count 53 % [facility] Lymphocytes/100 leukocytes in Blood by Automated count 31 % [facility] Monocytes/100 leukocytes in Blood by Automated count 7 % [facility] Eosinophils/100 leukocytes in Blood by Automated count 1 % [facility] Neutrophils [#/volume] in Blood by Automated count 6.47 10*3/uL 1.8-7 .0 [facility] Lymphocytes [#/volume] in Blood by Automated count 3.78 10*3/uL 1.2-4 .0 [facility] Monocytes [#/volume] in Blood by Automated count 0.85 10*3/uL 0-0.8 [facility] Eosinophils [#/volume] in Blood by Automated count 0.12 10*3/uL 0-0.5 [facility] Band form neutrophils/100 leukocytes in Blood by Manual count 3 % [facility] Variant lymphocytes/100 leukocytes in Blood by Manual count 3 % [facility] Myelocytes/100 leukocytes in Blood by Manual count 1 % [facility] Metamyelocytes/100 leukocytes in Blood by Manual count 1 % [facility] Band form neutrophils [#/volume] in Blood by Manual count 0.37 10*3 /uL 0-0.6 [facility] Lymphocytes [#/volume] in Blood 0.37 10*3/uL 0 H [facility] Myelocytes [#/volume] in Blood by Manual count 0.12 10*3/uL 0-0 [facility] Metamyelocytes [#/volume] in Blood by Manual count 0.12 10*3/uL 0-0 H [facility] Anisocytosis [Presence] in Blood by Light microscopy [facility] Polychromasia [Presence] in Blood by Light microscopy [facility] ID Date Data Source [id number] 07/02/2019 11:16:06 AM EDT [facility] Name Value Range Interpretation Code Description Data Lynn rce(s) Supporting Document(s) Thyrotropin [Units/volume] in Serum or Plasma 1.180 u[IU]/mL 0.270-4. 200 [facility] ID Date Data Source [id number] 06/17/2019 02:09:39 PM EDT [facility] Name Value Range Interpretation Code Description Data Lynn rce(s) Supporting Document(s) Progress [facility] CUWVBe5cSmUJPdVx46/GINibGMWkj4HdHAypMBy5ELnjPKDeN4RiNMR7iS4tKLO7PEiYYaCwTrJnZDJq [facility] [file] ICAgICAgICAgICAgICAgICAgICAgICAgICAgICAgIC HhAREbZIYsHCUlINRdDFBmLADaKTEzHJRwHCQyNGPnMGGhWZNdQLUwENPmYO6OGLMbPQXmLXRtIDImJT AgICAgICAgICAgICAgICAgICAgICAgICAgICAgICAgICAgICAgICAgICAgICAgICAgICAgICAgICAgIC DkNSHpIQWrBRHzQFNcQKFlGJXrIJPnTXUtKU1VHCWu ICAgICAgICAgICAgICAgICAgICAgICAgICAgICAgICAgICAgICAgICAgICAgICAgICAgICAgICAgICAg PAQdTUWwYQCrFKJyRFZnTCJyBXWkHIUjAMSrXVZvUEZnPTOoEQ0UBUDxCJRuINDaGBYxKNDmGAHsTUGk ICAgICAgICAgICAgICAgICAgICAgICAgICAgICAgIC IoZPIrIOQzQDNwBDQsCXEaQUCxPZFmZIKdRXLuWZUsZZWgDBXaGFJhNJTrJIFtUC6KLCHlXQNkBYIjQO AgICAgICAgICAgICAgICAgICAgICAgICAgICAgICAgICAgICAgICAgICAgICAgICAgICAgICAgICAgIC LbUMIpDWRtPRUfTHAuWGBpRHGsJERwOWYnRLNhZW6C ICAgICAgICAgICAgICAgICAgICAgICAgICAgICAgICAgICAgICAgICAgICAgICAgICAgICAgICAgICAg EOTdIAIxWOWnANBeHFDmGSRiBODfQMHzIOUjCQKbTFPnRRDiWKBuDT8EIQWhHTFfGULyODKtIBWtBNVb ICAgICAgICAgICAgICAgICAgICAgICAgICAgICAgIC PqYTXeYCAzVXOrANBnNOMqFJWsXUFhQHDjPLTeENAmHDXdWKKlYIPoXYWdCBVrWIYfOL9MELTrOKHcUU AgICAgICAgICAgICAgICAgICAgICAgICAgICAgICAgICAgICAgICAgICAgICAgICAgICAgICAgICAgIC AgICAgICAgICAgICAgICAgICAgICAgICAgICAgICAg OC0TZGSiPZNgDMRlWZQxDNZgVLApYJDkFDBlDVIzSKMbPZMhXGFtZQBlMHOdNZDrJJEaBMSwIGRsGUOr RLGfKBWmSLDnKRQgGPZgRGMbFEScVOWbXPVzAVFiDQHsIFLhYNUkNYSdPG2PCKQlWUZzWYSqEAZlSGSe ICAgICAgICAgICAgICAgICAgICAgICAgICAgICAgIC OtREKlTDUyHLNzVIMgZMHjMDSvZBYoNJReEQKqMAQvCRTrIPWhDRLjEOQgVEFuEQFgMKBwFE2WJC65xT Fhc9C4QWJcXT2ovsa/Bg5QYIjjypNoaFGuHE1WQmXsXA7kgj6FMfOyLT0mup2NKZoNXuLkG3L3nNPgET TlRHGEUmGvV15vCFdwMc40HLpjIFGuGiRuWFp5Nq1B KkDyT5piGBLeThX4NTIyCmI0VSXlXgS4OLQpNyHtSVhtEV0Gz5ZjpTAgMIy+Dc9ATR9ij3BfTIsyFBOt HL8wxk1PMAgKTpPkM8ItfeS2KGTbQOVtWa5BTWTvTIRuvCYiVECkLSRPZjTiB6AgbJ45HQUVYb8+DQpl nkVpGzpECmDwCKVej9WpIYd8NJ5LIHGzWOy0iTZiBI SiJ6Sug0KsCc57XJAlBampZUathHJjdDXADB1mjJyfYJCbHXXkEO4qEL3mNHQdUYTzCmFoQSMSOX9EDD BsTHVcrMVwHTIcDVJHIT2LRYxzIFI8LPJnxaIpeRSwPDbaMA8CZKCguaRcFdhmPDDRWPq+Zx7ADK7nf2 ZrDKuoJWUiNU9zew0MVPwFQvKtA6P0hRRvB3C3MXvt Ly7DNTIiIHNvQlzyEPNXCUjePM1GAV0goyW1UC5JcOXmVZVoPUZfkGXkOPf6W09crXWuXVxdPE6ZZNY+ Antelmo+Ee5WMBKbLRGqNBGyFcTzXSWNKvZlA6CwC7RWu0VxK4OhOI25jTxfsnNoSAdcYB2LFH3hIUBeNEHP JO9GpOKclD8ofuFuMPKfYHFNEhXbG31jbNXbZVCxMX E9SUEmHv6GSQKqK5TbgjPpnOcqvxUiSILyRPSRXT5LFHltdvRqnOQyzMkvWB62yQqiKK4VKw1ZKfKdJF 3dzh9WuFCcSl3NXWUkSj6XMSHcPCHhPUKzNXD3BKUaBgPlFVtiZKGcSDAaBLI5EJEsOCTqOL7SLcYcOH JwJlF5JdieBSZmUMFaql2DEEVcITQuAFKjKLKtSAYt IOUwGXmhHBMjSVNdJGD0FPPzHHWdZO7EAnUiWZIsLOA1NvDvGPCrYRJxco0UXJThZXKsRwu2SOZtWTUh XMAcRWsgHCBbSAV8OJM1LHQrAVNsJP2PKkDzZNCvGBvdAesmXKCtADTpnh3KILQoPCAbOXu1ViAkDRTw KONqRWkhWODyUXK0IAc9SHHcMCRjSF5ECdDxXXOlAD UhNLCfLLGtOGCcli0WTVIzRFPtPIA9TiUtIKDvGJQpENkxUPFkXKSoPTZ8SAPtHJUeLF4MLxErLUSuWY YvANItKYYfMXOjlx3GRNUzJKEoGYC7AxDsIEVhCWAdZAhvHEAoTDVyKas8RFDrTZQvAK4VSnLpLSEgJk WpUPSrJULmDCLzby2KABLjZBXrYfA1BwYgIMVoDAJf TTdxPPZmLUJvHgP2ABMkSWZwGH2QMoEuPPSlYoY3QFVgUEQdQJUmkv1EAMGaPUCuEDC3MGIoJWIiNUBw HCooOWBrHKA9KPnyBDOsMOXgLX8FIuYfJNOxRaUhWjDhKWBwKZQksd9MZWBoNWEjPTQ1TDCkBOBmNHEu MXwgEUKcUEK4OqsbULSmPMZkLY4ROrGnUMCrTeS4Zm dbASKvIVTrtg7NALTrEUAxTbN2HKBxPRPsDEGaHYgzWUZpRNI5HCr3ILGfLLKxYZ1WVbXrFVAiDsk2Oe icKTVaPYUsui7KTNPoTSVuZHKoTXUcUFWrQYOsXUkoJEOvSHJ9JrM2VQTpKOXoUJ5MHaDzCIxiHVGNWh n8KHzeF5v4UFNuKu0FV6Jzy1JwQjJqIBSJOHrhIC2j haExEQWxWn1WH5fMLjpoAMOkQHPkMwO8OHYcPFDnYMgdTPA3FvUzXXE1GlQaBC1zJYAiJ9Z1TQUbMec2 BeJ1ZOIxK4GqPYpxH9U8QUV3XOA2DtKeID3YWo4ZXeH7GMO6nDZnRc8KKidoEEPVEtClEF6EFPu= ID Date Data Source [id number] 06/16/2019 07:00:00 PM [facility] PET W CT IMAGING SKULL TO THIGH [id number] AL RESULTInterpreted by:Azul Olson MDINDICATION: Small cell lung cancer, restaging scan, assess response to chemotherapy.RADIOPHARMACEUTICAL: F18-FDG.DOSE: 12.1 mCi.BLOOD GLUCOSE: 7 mg/dL.TECHNIQUE: The study was performed at the [facility]. Approximately 60 minutes following IV tracer administration, [...] rce(s) Supporting Document(s) ID Date Data Source [id number] 06/12/2019 08:13:51 AM T [facility] Name Value Range Interpretation Code Description Data [facility] rce(s) Supporting Document(s) Progress Note [facility] JWFQIh7cJcKBVvBm25/UYGjhYNRpq3QgNJafXJp0OGmmOQOmY0UwTSF8nK5bJIV9NKrGRjKoEkQbDDF8 lbm [file] ClPF9IYa4FAsL4AQL3kLXiZc9NCVtcHOjTEkFpJV4JOAy= ID Date Data Source [id number] 06/12/2019 08:13:46 AM EDT [facility] Name Value Range Interpretation Code Description Data Lynn rce(s) Supporting Document(s) Progress Note [facility] ILXUUp0aIjYRQgXd53/FTRgzRTBna5EqKLioOFi2CXdrGMTnJ2OhBXY8xC9sRWO7UGyZGnVrOqOhTFY0 lbm [file] [employer]/3HAtimuYLJyjNUKQQSr0lQYUgVtMH+iWsaeCP6Job6rC5A5nzBo0F0k29fSaNIWhTtx6VUWAbWyng [file] FkMjIxNWZjYWY+LZ4wRFb+Jc4Ae2TtluJ7gmBlKPv2PmU8MB2HPTSDA3SODf== ID Date Data Source [id number] 06/11/2019 09:22:29 AM EDT [facility] Name Value Range Interpretation Code Description Data Lynn rce(s) Supporting Document(s) Leukocytes [#/volume] in Blood by Automated count 11.0 10*3/uL 4-10 H [facility] Erythrocytes [#/volume] in Blood by Automated count 4.22 10*6/uL 4.1- 5.3 [facility] Hemoglobin [Mass/volume] in Blood 13.7 g/dL 11.5-15.5 [facility] Hematocrit [Volume Fraction] of Blood by Automated count 38.7 % 3 6-45 [facility] Erythrocyte mean corpuscular volume [Entitic volume] by Auto mated count 91.7 fL 80-96 [facility] Erythrocyte mean corpuscular hemoglobin [Entitic mass] by Automated count 32.4 pg 27-33 [facility] Erythrocyte mean corpuscular hemoglobin concentration [Mass/volume] by Automated count 35.3 g/dL 32.0-36.0 [facility] width [Ratio] by Automated count 13.9 % 11.5-14.5 [facility] Platelets [#/volume] in Blood by Automated count 380 10*3/uL 150-400 [facility] Differential cell count method - Blood [facility] Neutrophils/100 leukocytes in Blood by Automated count 73 % [facility] Lymphocytes/100 leukocytes in Blood by Automated count 16 % [facility] Monocytes/100 leukocytes in Blood by Automated count 6 % [facility] Basophils/100 leukocytes in Blood by Automated count 1 % [facility] Neutrophils [#/volume] in Blood by Automated count 8.03 10*3/uL 1.8-7 .0 H [facility] Lymphocytes [#/volume] in Blood by Automated count 1.76 10*3/uL 1.2-4 .0 [facility] Monocytes [#/volume] in Blood by Automated count 0.66 10*3/uL 0-0.8 [facility] Basophils [#/volume] in Blood by Automated count 0.11 10*3/uL 0-0.2 [facility] Myelocytes/100 leukocytes in Blood by Manual count 4 % [facility] Myelocytes [#/volume] in Blood by Manual count 0.44 10*3/uL 0-0 [facility] ID Date Data Source [id number] 06/11/2019 10:29:28 AM EDT [facility] Name Value Range Interpretation Code Description Data Lynn rce(s) Supporting Document(s) Albumin [Mass/volume] in Serum or Plasma by Bromocresol green (BCG) dye binding method 4.1 g/dL 3.5-5.2 [facility] Bil[facility].total [Mass/volume] in Serum or Plasma 0.3 mg/dL <1.2 [facility] Calcium [Mass/volume] in Serum or Plasma 9.6 mg/dL 8.6-10.0 [facility] Chloride [Moles/volume] in Serum or Plasma 97 mmol/L 98-107 L [facility] Creatinine [Mass/volume] in Serum or Plasma 0.85 mg/dL 0.50-0.90 [facility] Glucose [Mass/volume] in Serum or Plasma 176 mg/dL 70-140 H [facility] Alkaline phosphatase [Enzymatic activity/volume] in Serum or Plasma 115 U/L 35-104 H [facility] Potassium [Moles/volume] in Serum or Plasma 4.3 mmol/L 3.4-5.1 [facility] Protein [Mass/volume] in Serum or Plasma 7.1 g/dL 6.4-8.3 [facility] Sodium [Moles/volume] in Serum or Plasma 137 mmol/L 136-145 [facility] Aspartate aminotransferase [Enzymatic activity/volume] in Serum or Plasma 25 U/L <32 [facility] Urea nitrogen [Mass/volume] in Serum or Plasma 10 mg/dL 6-20 [facility] Osmolality of Serum or Plasma by calculation 288 mosm/kg 275-300 [facility] Creatinine/Urea nitrogen [Mass Ratio] in Serum or Plasma 12 [facility] Bicarbonate [Moles/volume] in Serum 24 mmol/L 22-29 [facility] Alanine aminotransferase [Enzymatic activity/volume] in Seru m or Plasma 28 U/L <33 [facility] Anion gap 3 in Serum or Plasma 16 mmol/L 8-15 H [facility] Albumin/Globulin [Mass Ratio] in Serum or Plasma 1.4 [facility] Glomerular filtration rate/1.73 sq M pre dicted among non-blacks [Volume Rate/Area] in Serum or Plasma by Creatinine-based formula (MDRD) 78 mL/min/1.73m2 >60 [facility] Glomerular filtration rate/1.73 sq M pre dicted among blacks [Volume Rate/Area] in Serum or Plasma by Creatinine-based formula (MDRD) >60 [facility] ID Date Data Source [id number] 06/11/2019 12:12:29 PM [facility] Name Value Range Interpretation Code Description Data Lynn rce(s) Supporting Document(s) Magnesium [Mass/volume] in Serum or Plasma 1.6 mg/dL 1.6-2.6 [facility] ID Date Data Source [id number] 05/27/2019 12:59:29 PM [facility] Name Value Range Interpretation Code Description Data Lynn rce(s) Supporting Document(s) Progress Note [facility] JZBUWb8zTlFPNuFm85/HIXkoSGWfd8KuRLzhKTz7QNmlKDXoS9CsDVD9iO2jWAU6HVlMWtHuMqHcOwQl [facility] [file] ICAgICAgICAgICAgICAgICAgICAgICAgICAgICAgICAgICAgICAgICAgICAgICAgICAgICAgICAgICAg ICAgICAgICAgICAgICAgICAgICAgICAgICAgICAgICAgDQogICAgICAgICAgICAgICAgICAgICAgICAg ICAgICAgICAgICAgICAgICAgICAgICAgICAgICAgIC AgICAgICAgICAgICAgICAgICAgICAgICAgICAgICAgICAgICAgICAgICAgDQogICAgICAgICAgICAgIC AgICAgICAgICAgICAgICAgICAgICAgICAgICAgICAgICAgICAgICAgICAgICAgICAgICAgICAgICAgIC AgICAgICAgICAgICAgICAgICAgICAgICAgDQogICAg ICAgICAgICAgICAgICAgICAgICAgICAgICAgICAgICAgICAgICAgICAgICAgICAgICAgICAgICAgICAg ICAgICAgICAgICAgICAgICAgICAgICAgICAgICAgICAgICAgDQogICAgICAgICAgICAgICAgICAgICAg ICAgICAgICAgICAgICAgICAgICAgICAgICAgICAgIC AgICAgICAgICAgICAgICAgICAgICAgICAgICAgICAgICAgICAgICAgICAgICAgDQogICAgICAgICAgIC AgICAgICAgICAgICAgICAgICAgICAgICAgICAgICAgICAgICAgICAgICAgICAgICAgICAgICAgICAgIC AgICAgICAgICAgICAgICAgICAgICAgICAgICAgDQog ICAgICAgICAgICAgICAgICAgICAgICAgICAgICAgICAgICAgICAgICAgICAgICAgICAgICAgICAgICAg ICAgICAgICAgICAgICAgICAgICAgICAgICAgICAgICAgICAgICAgDQogICAgICAgICAgICAgICAgICAg ICAgICAgICAgICAgICAgICAgICAgICAgICAgICAgIC AgICAgICAgICAgICAgICAgICAgICAgICAgICAgICAgICAgICAgICAgICAgICAgICAgDQogICAgICAgIC AgICAgICAgICAgICAgICAgICAgICAgICAgICAgICAgICAgICAgICAgICAgICAgICAgICAgICAgICAgIC AgICAgICAgICAgICAgICAgICAgICAgICAgICAgICAg DQogICAgICAgICAgICAgICAgICAgICAgICAgICAgICAgICAgICAgICAgICAgICAgICAgICAgICAgICAg EQCgVCLcOJLdCJUbWFNdOPCsXPVkZUOvUDHsCPYvDOOaVREoIWStNPReUSy8E6tqPLTzCCNwEQ5pPKj8 Jz8+AKrCPrYyOOU9ubSclQ0WUN2yx5ZpLKynPHEeq7 DwSMo2BF6WIODjPTstWF6FDVzmwl2WYZQjMHYqmBRGr2xmOwGzGDI4IFDvBzdqOC4HGCBgA3xberVsNW IxFZHTSDwqBGVKPJamZHWWNBBlNPPuTvRwVgCuZKZjDV4OATKfR593ufLdYY8HBp8FMfDmVJ5but3JMi PfDRAhEhxQHcw2KBphGK9EhPBnuUBjRTZeKYILKlRp C2bwo5LpHlXeYEXNOUbaKM9Ko0SdzBThQZj+Bj0XNT7vs6JgGOrmHFNzVH7fzi4QNTuDHiAyW1QgeOgf EOTdm6noJRQtRC8bsDDcNUI4EV1cG3uhEXmmGRVSdXhvRZ1JAAZ1HDEnTuRxFbExJRRoHEzxBWWVDMbE VuHuA5Jyl8XtEkP2FXWpZoAfZOysUUYzNaU4RF07uW alGJ7LOJNlWSMuTR76KPUnJTCgRd1ZQd1QQxHtCQ0pvo6FGuPmIGAtWuyQZvv9ZSslCF8TjMFnY4VzqK Vvz6gYAxAkU4FTHLX0PTNgRf4URALjBmGfNSJaVSsuKP5tHKXcWFIJtWufxsG4RS8ZVH3ruiIwUH3LEs XtId3sYd1CPkLwM9ElW6PzZCIoIDRFRWtfXP8QERlb RM4xVF5Gj6HEfQDqiU5gab8ONIReIYOmBgaufu8VKxwaR8W2uHyyRZSzWaNyLUUZVWbzBC3BWYQsELI9 EOQkSJWkCMKNHvOoQ84hVI5XV9Ozq38hDaB4IDIiBxObCBvqRE02tZzzvjQskTUytZgcZM6BWb5+DQpl bmRvYmoNCnhyZWYNCjAgMzMNCjAwMDAwMDAwMDAgNj S8RfLiQc7DNGUgKENsKWGmHkBeRKJiBGHcJLypPBTzOSHfCKTnYOQwUYZkGF0FSvZkLNJsUjF2KEihUS YhBMFsjk4EIDWcQACbXEX0YoTjKHDsHHCzUIfnIJKiMPD0MYX9FANaJLDlBD2ZKrLkHBScXGM6TBhvVI EaBKRdzr6JTLNlWSWkPAXlCdXfCWIkQLKlCWzyUADp HLU3TIU7RRRpAQVgHP3FJuOvTOPyFTE1FPTtWQChNFGstw1ROZBqSLWwAwCwESNnLFVtDBTuEDjwPQIl FHA7KwQkAMGkVLAbLE7VGeKnNSCqNRG2EYNlLWXiSPTvdq4JZGJlYGTjKfH7JvAuMZUrHBFdGQyzKNJg ESY3PJb1GDCpDDIyFM8PUrMiRARxSGh3ICckZSOgQV Kaff5GRXPtYTWpDOd5AWNrVNHlGKSfQFvaWPQjNDZ8IZK3SYNoBOTgFA4ZAhPfGWBpYHx9JTrvZGOfMP Bcul2RUTXcKBAlOCF8FCVjRXQnVKUtOKyaGTOaLTSyXdf4EBXxMSJeTV2WDxAlNJXcKtR7XjAxUMOyWT Mflc9ZYBTnAXDnBJj3INXrNCTvHTFaEDsmECTcPEHx GOM1TPXpOQRmTP7WZmWqONFxRiVnVClmRCIrKIEmon3YRJWzSAEvMjJ6ZhPkDTQoIPQmWQckKPWvKIXc QDv7KWTwGNSiLO7DEiUeIQKqNjZ7UfzbWMCgFICypt8ODEQlISGpRnd5TUBdASYkDXYpDAbnUCPsVDV7 KiX4DQWfBUCfCE3LQyMqCDDmYxA6EcChNMAaIENknk 8VNNZuKZGyMTd0EfFaCULsZISkWQebVNMdXQC5ZQQsVOYbDXTaFI3CXzPxHCqlBHZKNpo2CLbmO3a7VE WmWf9RT1Vij2PiSkUfOHILLVefQY3ztbEcOEJgXh5QD3fLPjpaGIeiMdScAPR0HsG8XwIhHIUoMlZ5Mx L2HyUmGZG3Mu8sSRD9TGUyHFQ3UvL9CxBwUNB2WIB7 ZPfsLweeXKO7CDFpWaDzAR6GXr5CKzG5CPG7hFUrRe8BCeSxZEPKRpSkHE6KAOh= ID Date Data Source [id number] 05/21/2019 06:08:01 PM EDT [facility] Name Value Range Interpretation Code Description Data Lynn rce(s) Supporting Document(s) Progress Note [facility] PQJPBu3iXtLOFpMk94/QRPydBLBaw6IqBPjeZSa4XEfjQDVmM7SyRWB6lP0tBAP4UQpYLvBnVuNqAjC2 lbm [file] TBG8IOBzNVIyBYYoCvH2Faq1OAr+QP1bANb+Iw0Ja6MnxwV3ccNeWFgmOeCkCO3WYTOMZ5ZDWs== ID Date Data Source [id number] 05/20/2019 12:04:36 PM EDT [facility] Name Value Range Interpretation Code Description Data Lynn rce(s) Supporting Document(s) Consultation [facility] TFJUAm2tArZGMjLn65/ODKtaLWKel5OqQZleUIe0JXbwGSKqG7WeESR8yI0vXFU5NGzHQfJpNbRxJwS5 lbm [file] ogIFtdDQplbmRvYmoNCjIgMCBvYmoNCiAgPDwNCiAg HDZcGDBoU6KquOSwO3YJIi7KVCf8M9htLZghQb3EgUAyQYKfIXiuQCEoV9UkqlQhLCcvD6HxVFEkXSRq Qh6CWFYiEAMfJ8SuZJWaACHeUq9ZFFRlHYHnH6EpLFW4YYFuYf4UFQXjJFPuW7HkCCQ3RGCqBl0+DQog FUBzH3vQKrtrH2BwBPzfCa0MSlZjCTYwBMx2S7I3DZ ReUKl5S9UXR2HGILSyXCxgDAbiLGMuXNf0E3U5JKYzD6NRL1Byhjqjyl3+PN4QX69LZMFySPy0L2D3fH MxZ5Z8bTgHoGI1XU3GJB1QtMx8zAVbiL3+PB6UI4SIJcCqFUx0Q7X0kIYhQ1P2rXbQmPN0YJ6IVI1RuE YbYQYeciJlZb1uF0TRTLkQAiPJTKS4EZ8JmGSoOJ8I mXURZ5KreHUgYe9rVQgzlEThzA0cVh3gUFguEFStN0BEE2MWJY7BCGw0H4R7dXPrC9D8eQtUoMC7LR7W MF5QuLoqaTOpVv4uKJowGQTyZL0+DQogID4+XIufihZjMlfGXyVmMXIov1MoRFy0QY3TIJ4nvGrsAHI2 Sw6ZkLF5cKNxL5yLLI9XaZAeA62cqZNjWLOpUv8IXj P7mjBuzU0IKD47wZWka5R3ZQAuM3qfMBvib08hSThoQGiUDV7yHILHOPojGFocZWS7HsUhhqeuYLXjUv 4WVzHxNKe3xI5pmFQ2HGR2TrtwkTBaWVqsYkJjMmPmEsY2yRsfymg8WWlbGE1yCBbapjzpDUElMjf+DQ gqAUNqOEMkCqbFXHOwyF3kyqR6htOoXOjenUEcBm7k q2s7MwmfCm5dBu2aLIr9AxHeVyEhQQEtTo5veZ76MPsivgUvUw2UPbScECY5B2QmQskMTGD+DQogIDwv jNf4vOKtBBUtLu4SEVGsYURhCPDpXIJbQWIfMHHkTAJfFJTfRNIbBRWaWKMnTIOmUTLrNDQrXPWhGGBq ICAgICAgICAgICAgICAgICAgICAgICAgICAgICAgIC XqPKGbVQPnPZDuBANxJQHbKNRdQO6XSZZvCKInYWNjMEGsDNVwNRIqXONgXZDjRTJiNNYwFYKkOLCvVT AgICAgICAgICAgICAgICAgICAgICAgICAgICAgICAgICAgICAgICAgICAgICAgICAgICAgICAgICAgIC LnZN8PELBbDHIeZNNcQXGyRQMpJLSyRGNzIXXwTWOb ICAgICAgICAgICAgICAgICAgICAgICAgICAgICAgICAgICAgICAgICAgICAgICAgICAgICAgICAgICAg QKTwDXAtNUIoALHaVU3BJKPqTZHnFHAyDZDqNTHvFAHcBYGrRLFnUGTfSWBrFVXiZUYdZDGxFBVmRTSe ICAgICAgICAgICAgICAgICAgICAgICAgICAgICAgIC BoVEToFKInPBHsRTTiPOIvNUGeBXZjFG8OMXSzPYLxVFSaENBxDTCwODBcAJZaMUCuAUNxIWFxOZLfPO AgICAgICAgICAgICAgICAgICAgICAgICAgICAgICAgICAgICAgICAgICAgICAgICAgICAgICAgICAgIC SaIAEsKA3YOWLpUYXbWGNxKGEyLJToPVCzFPDlBDGo ICAgICAgICAgICAgICAgICAgICAgICAgICAgICAgICAgICAgICAgICAgICAgICAgICAgICAgICAgICAg MBHhKTJfJDNcURFkRMEjMV9KLBXbAAYlGGPyJELbZPCqSYPpZSHhRCJrWNTfCLKaHAFnQUZrNQXgZTGp ICAgICAgICAgICAgICAgICAgICAgICAgICAgICAgIC IwVMPsCMQuHHDvTGExLDJuWFUmIASgPOZdML8OZCTiIYSwDWXwLJKbCZKcHMNkNGQfHYMxLQKxLCJpIC AgICAgICAgICAgICAgICAgICAgICAgICAgICAgICAgICAgICAgICAgICAgICAgICAgICAgICAgICAgIC PlQJCrZUTzJS3GPRXuSBWeMHRjXMObDKCtBYXiHYDz ICAgICAgICAgICAgICAgICAgICAgICAgICAgICAgICAgICAgICAgICAgICAgICAgICAgICAgICAgICAg BMDuAYKeWJAsZVEqLNZiQRPyWQ3KLDZuHZBnOMSaPHEeCELgCSHlZVPmMFTeDTBdLHAuEWXpQUQiKSOm ICAgICAgICAgICAgICAgICAgICAgICAgICAgICAgIC LhXIPyLYCpQXHhJHNaUJRjJSVqIMRvWBOyFJWqGU5MVS57nGZlc2V2YJAfLS4gspg/Cn8YYUfwuaYyiH SkVT0PSqOlGR0zsa1OQjQrGW7tod0UJRcPVpUnW4H5fNUwYVLaSUZTFoKiF00nXUqoAf26ALzfTNQzFn BpKFe3Un5VYaSaW6dzFYCsBhW7BJUsFyJ8NIRvVwCt ULyiZA2Lf2GinBMqYCb+Hu7DEJ3gq1GqOLhqSeDwWA3msd0GWUyZMsTgE8ZseuU1MVGdUYLwKn1DXFAe APLjrVOgJoJrAYRGBbIlO3KusD20GGXZCm4+OTripqMaAdcBZrQhYHOxa4VmGJd1FZ5AMLJqGFa7pRDh M77vx2RpoIIlIbkoFcJeiqwrAXIrYMVPSPAuLLTZeT QihCLzHHDvAz0cIY5dHDCeNNErXhGhIHTWYZ0LCCKdQWRiwJXwFUTeAUXEVA4THPzrCPQ8KFJnkvYrpZ TwBXslYQ6MQRXoaiPeFnBqFPOHNIv+Bk4QOC5ow8LrLWfwCMViPT6arm5AZDkBRuPoK6E5pMHuV2F6ZU mhRf1IVRLpLAAkSnGsQWQQFMhhHS1KJF2tsfE2MG9S tYLwXTJiKPSwoKEcNEs8B86ziVRlQEqkUR8HFBZ+Antelmo+Lm5SJMBqBSRdIKAiWaThVZVXLoItC3ZbF1UT m9JoD8VaOU35lOfzjkJtNZprAB4QNK6cGVFbWZSKFW7TjSXtmU6dljVgHiQcUCAZJdEiM40pcGQyDDZw CHAoKAFzEa0YZJXwR7JmhvBhxFcltkKnUKHmUSLDJV 0QQJgegeWfuHWlxQbhBA61vFkgEG2QSb2RBqImNX8bta6QbODgVr0QMDPnVB6JRDVwOVJsWMAdRPO1KR WwRkOjVDjoXNYsFEMzXSH9MVUcLXBgQO2GZgXjNAAsRWG0JTakSDHtFMSbqr1YWAXwFEMiXaX9YFRlDT JpLQVpELtpEZNtXVUpTUO9PMSoIUQsEH5YWeXlFXAp XZW7HJDpRUZpYQAqyk3QIQXjUQSvPdlqLKKxOAVdQIHkNZtdNOToPBD3BJt8RNSuXSXdHE7ALiUqLEIt VWIzDFUgGQKlBSMzwg7QPQGnLDIsGpF1AWSkDIBxOJSeEIjnYPTlMGC9QgL5EYLhMANnNE1ESbRaBJUt QBM7ZcHuQIWuRPDjsq3BSZZmLYJgTcO8CRXlPVQlWJ TvIYiyYTFtSXE5Kdg4SRIuNUMwXC5OHfLtVIZrBLk7VyFyUGUjEGAunm0MGSTgDUDcFWliIIKsCADlVE LfXKybFLTiDBW3MJY3QNHfRJItFZ4WXkPcVYAmROtmDmJsVYMtYMDijy5JQZXgICKyAMN6CBFmOEWmLJ ViRFlrSCQwHTIoUcyrYVVbLRFmNQ0EVvLrJMXxMWF0 UlTwGLPlOAUulm0DSQHeHDFtSIBpXVScTKEuGWChZQsdRTPkHGYlNMY7FWLuVZJzYZ6DPkIfUUToCVV6 HeQmCLJsPUQspg9DPYNuHMIqLtO0SNAnIMLzIKHtGVm2wwNihQNmIAz0LO1HG6QmzrBlHtNIJc6Kk447 CDW8FKKlJm5DJ0rcFg9dEVJkBASAJd2DLXk8DrQdGL AaHcIhIMRdMLLoBqu0MzHfGbbbLEH8LbC3ZaJ+IIi5AYRqPWWmAGIqXUF4PWP5RMQkM9HnNRNpCmgkAC xiDv0aYONYBw9+LSupqNSpxOocXEBXNhFtVJPrKJwpOYBOVs2K ID Date Data Source [id number] 05/20/2019 12:04:06 PM EDT [facility] Name Value Range Interpretation Code Description Data Lynn rce(s) Supporting Document(s) Glucose [Mass/volume] in Capillary blood by Glucometer 183 mg/dL 70- 140 H [facility] ID Date Data Source [id number] 05/20/2019 11:40:05 AM EDT [facility] Name Value Range Interpretation Code Description Data Lynn rce(s) Supporting Document(s) Consultation [facility] VSCTKh4hDqRSTxPx17/AFUlyBVZkr7XtIYthXIe4QBvhSHZyH5ReVEA0lR2rFMK8OAlEYhAcAbYaPdW6 lbm [file] HaqDwsIHLTOhm6HbDPFaBgTM0SSTe= ID Date Data Source [id number] 05/20/2019 10:43:59 AM EDT [facility] Name Value Range Interpretation Code Description Data Lynn rce(s) Supporting Document(s) Discharge Summary [facility] LQUHRk2lRkAJPfLe36/TVZohMIUvk5OkWDazXJr7DDyvSNTaU4PlDUV0eE7uZWG2GBjFEtRbSqUaIiJ9 lbm [file] [employer]+Bu6OUUQwYZ7NkVFBL4TgwQHbUOesC6EUYT5TABQ5GK1SjYLfZS0WbZSZX4IanMHyMf2jFIGdq2Yy Fq5zC8ZGZNJJHWYeCHtaSVnuNZWoKAr6R9R8OULnW1IEC666lWCdbCr3Rx4nK6CNCJwFHtXeSYgjUSbt ZVBfVUw1P3Z5EGMiA3CJX6SaZuSzzrKqP0X+PiAvUE UQBA3QBPEWAUm8M9G1uWOdQ5S2vUxVbKT1LM6VSP3EpMWrgNUgh26+GjDFXxGxFOTiB6NXAQSUVnVwZN faHEfgAHUwOAu2N2T3TNOtE4SES5eoH7m1MV5+QoXXHeOiNPMtDb7HGsRkAx0TFsFgLH7tti2WDupaGH CnCnzCVzx0Z1hcwzz7fYRuKmH0C7R5CgS4qVYwSY5N Q5D9uGWjLMK7HLWabQE+Hi6Wi3KgIVLxTQu7G6lrVGZpVFRxOmUofE16D++8bgluoAL2B3q6ALJPcLZk cKeYuyGxQ1sOTKX6f9J1BYp/Ip1DDPP9iBh8fNSfVZEcAHs3hP5yoGg2ImUzLP17TWLmLFmpdE0jSru6 B4Qjt4UoEp5sTd3cwVCfWd2VLbHzKBC3bbOiPcLWUg E9jKizypsrMLP0I5f6iUB7Av71z2mabmIpk6LtUvC3EFdxBEPxEgHqlfJfLCJ3zlZfaG7vesQeVn2LFG AkBYaknrNtRqLBAx8JOuTwGH78KngwpR8hyMB+DQogICAgICAgICAgICAgICAgICAgICAgICAgICAgIC AgICAgICAgICAgICAgICAgICAgICAgICAgICAgICAg ICAgICAgICAgICAgICAgICAgICAgICAgICAgICAgICAgICAgICAgDQogICAgICAgICAgICAgICAgICAg ICAgICAgICAgICAgICAgICAgICAgICAgICAgICAgICAgICAgICAgICAgICAgICAgICAgICAgICAgICAg ICAgICAgICAgICAgICAgICAgICAgDQogICAgICAgIC AgICAgICAgICAgICAgICAgICAgICAgICAgICAgICAgICAgICAgICAgICAgICAgICAgICAgICAgICAgIC AgICAgICAgICAgICAgICAgICAgICAgICAgICAgICAgDQogICAgICAgICAgICAgICAgICAgICAgICAgIC AgICAgICAgICAgICAgICAgICAgICAgICAgICAgICAg ICAgICAgICAgICAgICAgICAgICAgICAgICAgICAgICAgICAgICAgICAgDQogICAgICAgICAgICAgICAg ICAgICAgICAgICAgICAgICAgICAgICAgICAgICAgICAgICAgICAgICAgICAgICAgICAgICAgICAgICAg ICAgICAgICAgICAgICAgICAgICAgICAgDQogICAgIC AgICAgICAgICAgICAgICAgICAgICAgICAgICAgICAgICAgICAgICAgICAgICAgICAgICAgICAgICAgIC AgICAgICAgICAgICAgICAgICAgICAgICAgICAgICAgICAgDQogICAgICAgICAgICAgICAgICAgICAgIC AgICAgICAgICAgICAgICAgICAgICAgICAgICAgICAg ICAgICAgICAgICAgICAgICAgICAgICAgICAgICAgICAgICAgICAgICAgICAgDQogICAgICAgICAgICAg ICAgICAgICAgICAgICAgICAgICAgICAgICAgICAgICAgICAgICAgICAgICAgICAgICAgICAgICAgICAg ICAgICAgICAgICAgICAgICAgICAgICAgICAgDQogIC AgICAgICAgICAgICAgICAgICAgICAgICAgICAgICAgICAgICAgICAgICAgICAgICAgICAgICAgICAgIC AgICAgICAgICAgICAgICAgICAgICAgICAgICAgICAgICAgICAgDQogICAgICAgICAgICAgICAgICAgIC AgICAgICAgICAgICAgICAgICAgICAgICAgICAgICAg MQZuWWVqXLKlHAPyIPBpBRGtTXKqHQXdWCUrVHAjGOEnFNFjFYFoEZNvFAJcYGXvDQp3J8umFGXbMEBa GZ6wOOw2Um0+XOgAJjWbCMU7boTblL8YCQ0uu8YpBZdhWUAvn1NgMAw7GJ9KXRXmOYmbLZ4LBKwifx5C XMFjKESocHYRt0ltVtNtTHY1VFHgKcjlFZ1AWFApW0 eqjhUjHGHbPTFFVQrjRUDVXShbRKAJXRVaIYTrBfScQcMbQLNvZI0TPVGaL088rbLeFO5XNc1SObFfFJ 5rki6SVnsxBWKcIfrVCjx8FQenVK9JfPEetAWkJSYdUMFRYsPjM8fbw0HsHnpeNDLJWMuyNH1Fc9XbvW AxDQo+Wl2IAV1tb6FtZCpsUWSoJQ7fbz3YFZnZHbLh X4QfaQejLKSvd4DqVNEaERMUeD7qUJV0XZZ9CUSbpBymkQLLe3wwKC5dTELUBTTyxUVqYmD2UfNfXgNc ATD3IhNoMQ5gQLcyQJ1LYBK5JVtyORAqYDBmV0pTDgXmEFJfRzOihNhdJK8TCkXcW4MpefQomBFkHHZm IFINCj4+EUnqjfDvExaRFcFeIOGzs3JqWIg4BZ2LEW FgWObfCJ2WOCMicE5sPRkzQD3URuRwXpXkQPMSGmHtM03doERrJFw0V1ExZsBnSXTlNovsAWQqOSstDn FtZXMgWyBdDQogID4+ID4+PAlkXC2RGIvgmxQaLRWvQe6MCVGiZURoTS8vQQOhUOOjR2E2dEoiNDOGWo ZhF9ocrwopEA0qZLAkM648xPdmtjWhSPO4RNSnNr5D JXKdPKY9BLFhdJFfSbtlVHBWMQlvMK2UdRSvCOP5iI6tOIgtSGDqKIMlL1wXEhEhtGqrNE11rEwgyeNm bCBdDQo+Ti1KSC2sz2VaBVh1keSsESqrPPLtXQogDSRwHUKuHZXdKTG2TMF1KIASFeZtYLJrVZKdDLor VKBrNWLcuk8LGXRlSIQoBSd6LWSxCDBcVOPpUVtqGY FlKOE2YtO3ZZLkWJOzGL3GPzFfBJGqIUMrDLufQGZxNYQsgv6MSNSrVDGuRWS3LBTbIDCfXUUtBXegSD SfHRJ7BlA7LJMeJRJsXS3IHcJpUKMvJLmnZBBbTHZpGKKwcn1LGQHaLCOsQNK4WLYgUZOjMWBbCWgxKO JkNWJ3AyQ3KOBnWCIkDQ5RWiNoMLHxQQW9HyLrROHu FKPwro5BOMMmVBXuEgCpBCStMHWbVTUuSNifIDTkJVC0NXL7FLVtCQMqKF2FGyRaALVmNXpnAIAjBZZf OFYara0OXAJeYIFaCXX9GoUnJHGuHONbOUlgEBDiAXTmCKSaYZKzULCyZI2XEdQrQOTaUxH7NUqtWDIr RNDawz0OSICrGGXoSKlyGnUyXWMgDEFuPQfdUBNuZK XpJLdzTBOtALDpCR7MWrAyQMUrOfSrCQTlLMBmVHWwzr0ZACVjIXJqKwC1TZCzEHKdTADbCKhpZKXjCT HrOtQrIUArBEEfXF2FVoJoLHNmIxY4GebeSWFvQCDahu7FBGBfEZQcArEtZFAlFLXaJSXdLSjhXCYuRU H2SNvrCYZaBUNwRM2YWkLzIQXfHcO5PUAhNKKjXMJy gp1HIWUlZIOcZYq0LRJfUEShWBHfWXdjMCCnAYA8JUI8PUUfPJYlAI1ZLhQwIIYmNnE1ILSrUPDbOJNk ig4JJUWgQMPjMas2VRHrEHDmIBWaRXrrQYBhEXA0XGIwSGHhJYFnKH9GGsUyMRidGEYLRvq3ZSprZ7t1 CWGaJA3PG8Skv0NsEhZzMZXEMBylRI7edwFqBKWjIc 5SY2mXAdliHoXtP8AkRYu0XFD0CXIjGLAmPbNoYuZ7GyQcOjU6MW5tHRWeZdTkHBKgUEOoUnZxVYG8Va C7DTJyPPV2DINcHSisIiLbKS3CKo8NYuY9FUR0pUBpAq8COsmoJHhOYjPyUR1VDLb= ID Date Data Source [id number] 05/20/2019 08:31:52 AM [facility] Name Value Range Interpretation Code Description Data Lynn rce(s) Supporting Document(s) Glucose [Mass/volume] in Capillary blood by Glucometer 187 mg/dL 70- 140 [facility] ID Date Data Source [id number] 05/20/2019 02:58:33 AM [facility] Name Value Range Interpretation Code Description Data Lynn rce(s) Supporting Document(s) Bicarbonate [Moles/volume] in Serum 20 mmol/L 22-29 L [facility] Chloride [Moles/volume] in Serum or Plasma 98 mmol/L 98-107 [facility] Creatinine [Mass/volume] in Serum or Plasma 0.71 mg/dL 0.50-0.90 [facility] Glucose [Mass/volume] in Serum or Plasma 206 mg/dL 70-140 [facility] Potassium [Moles/volume] in Serum or Plasma 4.4 mmol/L 3.4-5.1 [facility] Sodium [Moles/volume] in Serum or Plasma 131 mmol/L 136-145 L [facility] Urea nitrogen [Mass/volume] in Serum or Plasma 12 mg/dL 6-20 [facility] Anion gap 3 in Serum or Plasma 13 mmol/L 8-15 [facility] Osmolality of Serum or Plasma by calculation 278 mosm/kg 275-300 [facility] Creatinine/Urea nitrogen [Mass Ratio] in Serum or Plasma 17 [facility] Calcium [Mass/volume] in Serum or Plasma 9.0 mg/dL 8.6-10.0 [facility] Glomerular filtration rate/1.73 sq M pre dicted among non-blacks [Volume Rate/Area] in Serum or Plasma by Creatinine-based formula (MDRD) >6 0 [facility] Glomerular filtration rate/1.73 sq M pre dicted among blacks [Volume Rate/Area] in Serum or Plasma by Creatinine-based formula (MDRD) >60 [facility] ID Date Data Source [id number] 05/20/2019 02:58:33 AM [facility] Name Value Range Interpretation Code Description Data Lynn rce(s) Supporting Document(s) Magnesium [Mass/volume] in Serum or Plasma 2.0 mg/dL 1.6-2.6 [facility] ID Date Data Source [id number] 05/20/2019 02:58:33 AM [facility] Value Range Interpretation Code Description Data Lynn rce(s) Supporting Document(s) Phosphate [Mass/volume] in Serum or Plasma 3.4 mg/dL 2.5-4.5 [facility] ID Date Data Source [id number] 05/20/2019 03:12:30 AM [facility] Value Range Interpretation Code Description Data Lynn rce(s) Supporting Document(s) Leukocytes [#/volume] in Blood by Automated count 9.8 10*3/uL 4-10 [facility] Erythrocytes [#/volume] in Blood by Automated count 4.58 10*6/uL 4.1- 5.3 [facility] Hemoglobin [Mass/volume] in Blood 14.5 g/dL 11.5-15.5 [facility] Hematocrit [Volume Fraction] of Blood by Automated count 42.7 % 3 6-45 [facility] Erythrocyte mean corpuscular volume [Entitic volume] by Auto mated count 93.1 fL 80-96 [facility] Erythrocyte mean corpuscular hemoglobin [Entitic mass] by Automated count 31.7 pg 27-33 [facility] Erythrocyte mean corpuscular hemoglobin concentration [Mass/volume] by Automated count 34.1 g/dL 32.0-36.0 [facility] Erythrocyte distribution width [Ratio] by Automated count 13.1 % 11.5-14.5 [facility] Platelets [#/volume] in Blood by Automated count 318 10*3/uL 150-400 [facility] Confirmed Differential cell count method - Blood [facility] Neutrophils/100 leukocytes in Blood by Automated count 87 % [facility] Lymphocytes/100 leukocytes in Blood by Automated count 10 % [facility] Monocytes/100 leukocytes in Blood by Automated count 3 % [facility] Eosinophils/100 leukocytes in Blood by Automated count 0 % [facility] Basophils/100 leukocytes in Blood by Automated count 0 % [facility] Neutrophils [#/volume] in Blood by Automated count 8.59 10*3/uL 1.8-7 .0 [facility] Lymphocytes [#/volume] in Blood by Automated count 0.94 10*3/uL 1.2-4 .0 L [facility] Monocytes [#/volume] in Blood by Automated count 0.29 10*3/uL 0-0.8 [facility] Eosinophils [#/volume] in Blood by Automated count 0.00 10*3/uL 0-0.5 [facility] Basophils [#/volume] in Blood by Automated count 0.03 10*3/uL 0-0.2 [facility] Nucleated erythrocytes/100 leukocytes [Ratio] in Blood by Automated count 0 /100{WBCs} 0-0 [facility] ID Date Data Source [id number] 05/19/2019 09:42:12 PM [facility] Name Value Range Interpretation Code Description Data Lynn rce(s) Supporting Document(s) Glucose [Mass/volume] in Capillary blood by Glucometer 276 mg/dL 70- 140 [facility] ID Date Data Source [id number] 05/19/2019 05:54:23 PM [facility] Name Value Range Interpretation Code Description Data Lynn rce(s) Supporting Document(s) [facility] CGNPGm2dRaAXZfMf15/AMNisGJSih7TgKUnzNHy5VYqtGZZaJ3RgSGL4sJ5pXWB3VLvIObYmCwDmRhXo lbm GrRdnYEkOlFPRwJjiGZxGmOEmgTanuiXFtQK6FyBH2GLRjZ22bKPTyFLJhT8OvEJIySAS+Sn2FGMZifE MjTS0VAijV1Zvgh3n10uqZ8c9DZOClHfdZlH0S3EVooxPrWvu87B7Z4/1c1AwdFmhXkwTb/PvT0/KMma bi1hpw9cVYB9TsHmpNIBIBZERVe+zEcyzLYtm/mz+9 IYZDhv98O9sfAkXbY/6q8bACOUg8rBRM+wrgfjZPMyw4xlQfVsH9RDvaro/u7HayTVnmgnyV9iamr63Q w8qNhuZs75JffFqvUeen7IpJmS0au14gk19Dn9Kqy1sJXjekE4j242bJKADJrDb9mZxAjFGfRysfY7FO Y00NqU1t3aUEcsJSH9A88BHMca0AmT3pXcfZ6XYi/h A5bItK55eYVl5dOspgONjVo3YfFM1XouJ+fjj2XCpeMMCW8gtd24ixMvkhCbGdrjczTK/JFOegnzgzAz mNsiK5RqFFHUxUCTjdIeQJZe2/wHIAB5BdV+Nd+L8soDQhBkSPtVQkQ2ScF6XPro/XwvTenZkTpkRdCi [employer]ATOR+FkOXSRpuAwP9u3SWC8ihfb9rpyHa7AUYt9Qn0mh [file] WNBL5DxO27FUwkYs+q7m0RodLOD+vp strategy/ICsVwU04T+X bV53TuYtFrAvtanrYmeFXxH6YjF74XJBLSGaPrwF0lKazo1FUWZHjEebmqYqz1Z+xiQpgPbBKOSTQXAO xrtj+Tp0LoACE5A+JI18rowEgOpqxv7E/cweOboLy4h5iqR561d3FnuanLChjvlsngFeYXvpDa1kzXBj 0EfpZ/x+Dy9Wm6hraoxRXi5T9dkwYKH6pVS7d13RCf EezE/7iRgosNmiMwwTF0E1tmNqe7QiPjfR+GWZh80RxyFwRDkTN+9I71yBdd9J3u3lM4pE3xUqHyZEZg v8CikjywAiDhcjTy5R5XyCX1SDDONmlNnYIvIVM5pTap7JadbGpNXfTJ7vZxUPFopfS+gOyI29XV0EfM zvN1qHzyFJ7yOn0BZ1LiqoE15D5iolRK/O01WCyR9d 5ulWa1RFqMJarBSY4y6zHSqP+Miq6LE7cDZ9vzNsmr95nI4+VvhvarVnn080RVSEbXYcHszX4JTnwhpl okGgdGcO5LvlSzXrN8Ek8648rx1n47voxqqteBvj3rn5JABMAxTCY60RwlOFHq7+ukM8R/nwnhhDahv1 07hjSFgierBmwJFk1be++HE44Mjn0FXxHsi8DCDW [file] Pv4oSMMMLc9+WPafrKSmsRvnWNMDSnD3YjpnBMzjWHKTPn8U ID Date Data Source [id number] 05/19/2019 05:16:43 PM T [facility] Name Value Range Interpretation Code Description Data Lynn rce(s) Supporting Document(s) Glucose [Mass/volume] in Capillary blood by Glucometer 157 mg/dL 70- 140 H [facility] ID Date Data Source [id number] 05/19[facility]2019 03:37:[facility] WHOLE BODY [id number] AL RESULTInterpreted by:Krista Anderson, [facility] Farooq MDINDICATION Staging of small cell lung [...] rce(s) Supporting Document(s) ID Date Data Source [id number] 05/19/2019 12:01:54 PM [facility] Value Range Interpretation Code Description Data Lynn rce(s) Supporting Document(s) Glucose [Mass/volume] in Capillary blood by Glucometer 189 mg/dL 70- 140 [facility] ID Date Data Source [id number] 05/19/2019 08:14:43 AM T [facility] Value Range Interpretation Code Description Data Lynn rce(s) Supporting Document(s) Glucose [Mass/volume] in Capillary blood by Glucometer 171 mg/dL 70- 140 [facility] ID Date Data Source [id number] 05/19/2019 02:42:50 PM [facility] Value Range Interpretation Code Description Data Lynn rce(s) Supporting Document(s) Hemoglobin A1c/Hemoglobin.total in Blood by HPLC 7.7 % 4.0-6.0 [facility] (NOTE)<5.7% Average risk of diabetes (ADA)5.7-6.4% Increased risk of diabetes(ADA)>/= 6.5% Diagnostic for diabetes(ADA) Glucose mean value [Mass/volume] in Blood Estimated fr om glycated hemoglobin 174 mg/dL <126 [facility] ID Date Data Source [id number] 05/19/2019 01:52:22 AM EDT [facility] Name Value Range Interpretation Code Description Data Lynn rce(s) Supporting Document(s) Leukocytes [#/volume] in Blood by Automated count 7.5 10*3/uL 4-10 [facility] Erythrocytes [#/volume] in Blood by Automated count 4.23 10*6/uL 4.1- 5.3 [facility] Hemoglobin [Mass/volume] in Blood 13.5 g/dL 11.5-15.5 [facility] Hematocrit [Volume Fraction] of Blood by Automated count 39.7 % 3 6-45 [facility] Erythrocyte mean corpuscular volume [Entitic volume] by Auto mated count 94.1 fL 80-96 [facility] Erythrocyte mean corpuscular hemoglobin [Entitic mass] by Automated count 31.9 pg 27-33 [facility] Erythrocyte mean corpuscular hemoglobin concentration [Mass/volume] by Automated count 33.9 g/dL 32.0-36.0 [facility] width [Ratio] by Automated count 13.3 % 11.5-14.5 [facility] Platelets [#/volume] in Blood by Automated count 244 10*3/uL 150-400 [facility] Differential cell count method - Blood [facility] Neutrophils/100 leukocytes in Blood by Automated count 84 % [facility] Lymphocytes/100 leukocytes in Blood by Automated count 13 % [facility] Monocytes/100 leukocytes in Blood by Automated count 3 % [facility] Eosinophils/100 leukocytes in Blood by Automated count 0 % [facility] Basophils/100 leukocytes in Blood by Automated count 0 % [facility] Neutrophils [#/volume] in Blood by Automated count 6.37 10*3/uL 1.8-7 .0 [facility] Lymphocytes [#/volume] in Blood by Automated count 0.96 10*3/uL 1.2-4 .0 L [facility] Monocytes [#/volume] in Blood by Automated count 0.19 10*3/uL 0-0.8 [facility] Eosinophils [#/volume] in Blood by Automated count 0.00 10*3/uL 0-0.5 [facility] Basophils [#/volume] in Blood by Automated count 0.02 10*3/uL 0-0.2 [facility] Nucleated erythrocytes/100 leukocytes [Ratio] in Blood by Automated count 0 /100{WBCs} 0-0 [facility] ID Date Data Source [id number] [facility]2019 [facility]52[facility] Value Range Interpretation Code Description Data Lynn rce(s) Supporting Document(s) Bicarbonate [Moles/volume] in Serum 20 mmol/L 22-29 [facility] Chloride [Moles/volume] in Serum or Plasma 97 mmol/L 98-107 [facility] Creatinine [Mass/volume] in Serum or Plasma 0.59 mg/dL 0.50-0.90 [facility] Glucose [Mass/volume] in Serum or Plasma 182 mg/dL 70-140 [facility] Potassium [Moles/volume] in Serum or Plasma 4.5 mmol/L 3.4-5.1 [facility] Sodium [Moles/volume] in Serum or Plasma 134 mmol/L 136-145 [facility] Urea nitrogen [Mass/volume] in Serum or Plasma 10 mg/dL 6-20 [facility] Anion gap 3 in Serum or Plasma 17 mmol/L 8-15 [facility] Osmolality of Serum or Plasma by calculation 281 mosm/kg 275-300 [facility] Creatinine/Urea nitrogen [Mass Ratio] in Serum or Plasma 16 [facility] Calcium [Mass/volume] in Serum or Plasma 8.4 mg/dL 8.6-10.0 L [facility] Glomerular filtration rate/1.73 sq M pre dicted among non-blacks [Volume Rate/Area] in Serum or Plasma by Creatinine-based formula (MDRD) >6 0 [facility] Glomerular filtration rate/1.73 sq M pre dicted among blacks [Volume Rate/Area] in Serum or Plasma by Creatinine-based formula (MDRD) >60 [facility] ID Date Data Source [id number] 05/19/2019 08:52:40 AM [facility] Value Range Interpretation Code Description Data Lynn rce(s) Supporting Document(s) Phosphate [Mass/volume] in Serum or Plasma 4.0 mg/dL 2.5-4.5 [facility] ID Date Data Source [id number] 05/19/2019 08:52:40 AM [facility] Name Value Range Interpretation Code Description Data Lynn rce(s) Supporting Document(s) Magnesium [Mass/volume] in Serum or Plasma 2.2 mg/dL 1.6-2.6 [facility] ID Date Data Source [id number] 05/18/2019 10:07:43 PM [facility] Name Value Range Interpretation Code Description Data Lynn rce(s) Supporting Document(s) Glucose [Mass/volume] in Capillary blood by Glucometer 213 mg/dL 70- 140 H [facility] ID Date Data Source [id number] 05/18/2019 05:20:43 PM [facility] Name Value Range Interpretation Code Description Data Lynn rce(s) Supporting Document(s) Glucose [Mass/volume] in Capillary blood by Glucometer 148 mg/dL 70- 140 [facility] ID Date Data Source [id number] 05/18/2019 12:24:35 PM [facility] Name Value Range Interpretation Code Description Data Lynn rce(s) Supporting Document(s) Glucose [Mass/volume] in Capillary blood by Glucometer 127 mg/dL 70- 140 [facility] ID Date Data Source [id number] 05/18/2019 09:45:30 AM [facility] MR BRAIN WITH AND WITHOUT CONTRAST [id number] FINAL RESULTInterpreted by:Marietta Mendez MDHISTORY: Staging small [...] rce(s) Supporting Document(s) ID Date Data Source [id number] 05/18/2019 08:33:17 AM [facility] Name Value Range Interpretation Code Description Data Lynn rce(s) Supporting Document(s) Glucose [Mass/volume] in Capillary blood by Glucometer 142 mg/dL 70- 140 H [facility] ID Date Data Source [id number] 05/18/2019 03:07:42 AM [facility] Name Value Range Interpretation Code Description Data Lynn rce(s) Supporting Document(s) Leukocytes [#/volume] in Blood by Automated count 10.3 10*3/uL 4-10 [facility] Erythrocytes [#/volume] in Blood by Automated count 3.88 10*6/uL 4.1- 5.3 L [facility] Hemoglobin [Mass/volume] in Blood 12.5 g/dL 11.5-15.5 [facility] Hematocrit [Volume Fraction] of Blood by Automated count 36.4 % 3 6-45 [facility] Erythrocyte mean corpuscular volume [Entitic volume] by Auto mated count 93.9 fL 80-96 [facility] Erythrocyte mean corpuscular hemoglobin [Entitic mass] by Automated count 32.3 pg 27-33 [facility] Erythrocyte mean corpuscular hemoglobin concentration [Mass/volume] by Automated count 34.4 g/dL 32.0-36.0 [facility] width [Ratio] by Automated count 13.7 % 11.5-14.5 [facility] Platelets [#/volume] in Blood by Automated count 232 10*3/uL 150-400 [facility] Differential cell count method - Blood [facility] Neutrophils/100 leukocytes in Blood by Automated count 63 % [facility] Lymphocytes/100 leukocytes in Blood by Automated count 27 % [facility] Monocytes/100 leukocytes in Blood by Automated count 8 % [facility] Eosinophils/100 leukocytes in Blood by Automated count 1 % [facility] Basophils/100 leukocytes in Blood by Automated count 1 % [facility] Neutrophils [#/volume] in Blood by Automated count 6.48 10*3/uL 1.8-7 .0 [facility] Lymphocytes [#/volume] in Blood by Automated count 2.82 10*3/uL 1.2-4 .0 [facility] Monocytes [#/volume] in Blood by Automated count 0.84 10*3/uL 0-0.8 [facility] Eosinophils [#/volume] in Blood by Automated count 0.07 10*3/uL 0-0.5 [facility] Basophils [#/volume] in Blood by Automated count 0.09 10*3/uL 0-0.2 [facility] Nucleated erythrocytes/100 leukocytes [Ratio] in Blood by Automated count 0 /100{WBCs} 0-0 [facility] ID Date Data Source [id number] 05/18/2019 03:32:32 AM EDT [facility] Name Value Range Interpretation Code Description Data Lynn rce(s) Supporting Document(s) Albumin [Mass/volume] in Serum or Plasma by Bromocresol green (BCG) dye binding method 3.2 g/dL 3.5-5.2 [facility] Bil[facility].total [Mass/volume] in Serum or Plasma 0.3 mg/dL <1.2 [facility] Calcium [Mass/volume] in Serum or Plasma 8.0 mg/dL 8.6-10.0 L [facility] Chloride [Moles/volume] in Serum or Plasma 100 mmol/L 98-107 [facility] Creatinine [Mass/volume] in Serum or Plasma 0.55 mg/dL 0.50-0.90 [facility] Glucose [Mass/volume] in Serum or Plasma 133 mg/dL 70-140 [facility] Alkaline phosphatase [Enzymatic activity/volume] in Serum or Plasma 52 U/L 35-104 [facility] Potassium [Moles/volume] in Serum or Plasma 4.4 mmol/L 3.4-5.1 [facility] Protein [Mass/volume] in Serum or Plasma 6.0 g/dL 6.4-8.3 L [facility] Sodium [Moles/volume] in Serum or Plasma 138 mmol/L 136-145 [facility] Aspartate aminotransferase [Enzymatic activity/volume] in Serum or Plasma 27 U/L <32 [facility] Urea nitrogen [Mass/volume] in Serum or Plasma 9 mg/dL 6-20 [facility] Osmolality of Serum or Plasma by calculation 286 mosm/kg 275-300 [facility] Creatinine/Urea nitrogen [Mass Ratio] in Serum or Plasma 17 [facility] Bicarbonate [Moles/volume] in Serum 25 mmol/L 22-29 [facility] Alanine aminotransferase [Enzymatic activity/volume] in Seru m or Plasma 20 U/L <33 [facility] Anion gap 3 in Serum or Plasma 13 mmol/L 8-15 [facility] Albumin/Globulin [Mass Ratio] in Serum or Plasma 1.1 [facility] Glomerular filtration rate/1.73 sq M pre dicted among non-blacks [Volume Rate/Area] in Serum or Plasma by Creatinine-based formula (MDRD) >6 0 [facility] Glomerular filtration rate/1.73 sq M pre dicted among blacks [Volume Rate/Area] in Serum or Plasma by Creatinine-based formula (MDRD) >60 [facility] ID Date Data Source [id number] 05/18/2019 12:57:05 PM [facility] Value Range Interpretation Code Description Data Lynn rce(s) Supporting Document(s) Magnesium [Mass/volume] in Serum or Plasma 2.2 mg/dL 1.6-2.6 [facility] ID Date Data Source [id number] 05/18/2019 12:57:05 PM [facility] Value Range Interpretation Code Description Data Lynn rce(s) Supporting Document(s) Phosphate [Mass/volume] in Serum or Plasma 2.6 mg/dL 2.5-4.5 [facility] ID Date Data Source [id number] 05/17/2019 09:52:36 PM [facility] Value Range Interpretation Code Description Data Lynn rce(s) Supporting Document(s) Glucose [Mass/volume] in Capillary blood by Glucometer 137 mg/dL 70- 140 [facility] ID Date Data Source [id number] 05/17/2019 06:54:15 PM [facility] Value Range Interpretation Code Description Data Lynn rce(s) Supporting Document(s) Glucose [Mass/volume] in Capillary blood by Glucometer 127 mg/dL 70- 140 [facility] ID Date Data Source [id number] 05/17/2019 12:32:17 PM EDT [facility] Name Value Range Interpretation Code Description Data Lynn rce(s) Supporting Document(s) Glucose [Mass/volume] in Capillary blood by Glucometer 128 mg/dL 70- 140 [facility] ID Date Data Source [id number] 05/17/2019 10:03:51 AM EDT [facility] Name Value Range Interpretation Code Description Data Lynn rce(s) Supporting Document(s) EKG [facility] PWLUBw3bNuPPZhJya9PvAtSbTNCkNC2tmza3H1M6aFOwQ7XdwLHri7dkL2EiP8OjGWJzRZHWAO3NpLIs jb2 [file] MDAwMDAgbiAKMDAwMDAwMTQwNiAwMDAwMCBuIAowMD WtMLS3EWKzSFGiTNIiGG8bQbQcSPVuLRW9OJmsPTXqJBIffsLDSLCuCXWwGKrrXUNqRIEsSVPhHJpjVU WpPGApQCP5TVPtISSiSN6hGqMsEJMfBPFwNSDgQtB9OqUaAmLVmNPehWalwdf5BFrjN2m2QXWyOOikBE 5babMzSCSdCxjzRl9qiAC5RGZcBvzKUe6Cs7CjehD8olHqPtP8AIT3SmDoGO4X ID Date Data Source [id number] 05/17/2019 09:48:07 AM EDT [facility] Name Value Range Interpretation Code Description Data Lynn rce(s) Supporting Document(s) Troponin T.cardiac [Mass/volume] in Serum or Plasma <0.01 [facility] ID Date Data Source [id number] 05/17/2019 08:24:51 AM EDT [facility] Name Value Range Interpretation Code Description Data Lynn rce(s) Supporting Document(s) History and Physical [facility] MREFDj0aBnRLFcBe14/WNEqiCUSti7RtWOebJXc8LXssGMJjW6PiGWQ0vV2tAWA6MWlVMzGtDmNrCoAr lbm [file] bMuzzOu+ma62VdkN2ktN4WMwhdLbipi2PMrsJ1olRc0wdwyWZST1zuSEqSQOfWX/hnzXiwK0iTei/INDUSTRIAL MAINTENANCE REPAIRER [file] C3qwQxCIlfWrCoUC5GKLAWH3BUUh== ID Date Data Source [id number] [facility] Interpretation Code Description Data Lynn rce(s) Supporting Document(s) Glucose [Mass/volume] in Capillary blood by Glucometer 143 mg/dL 70- 140 H [facility] ID Date Data Source [id number] [facility]/17[facility]2019 02[facility]49[facility] Interpretation Code Description Data Lynn rce(s) Supporting Document(s) Troponin T.cardiac [Mass/volume] in Serum or Plasma <0.01 [facility] ID Date Data Source [id number] 05/17/2019 02:58:34 AM [facility] Value Range Interpretation Code Description Data Lynn rce(s) Supporting Document(s) Albumin [Mass/volume] in Serum or Plasma by Bromocresol green (BCG) dye binding method 3.3 g/dL [facility] Bil[facility] [Mass/volume] in Serum or Plasma 0.3 mg/dL <1.2 [facility] Calcium [Mass/volume] in Serum or Plasma 8.3 mg/dL 8.6-10.0 L [facility] Chloride [Moles/volume] in Serum or Plasma 101 mmol/L 98-107 [facility] Creatinine [Mass/volume] in Serum or Plasma 0.68 mg/dL 0.50-0.90 [facility] Glucose [Mass/volume] in Serum or Plasma 206 mg/dL 70-140 H [facility] Alkaline phosphatase [Enzymatic activity/volume] in Serum or Plasma 54 U/L 35-104 [facility] Potassium [Moles/volume] in Serum or Plasma 5.4 mmol/L 3.4-5.1 H [facility] Protein [Mass/volume] in Serum or Plasma 6.4 g/dL 6.4-8.3 [facility] Sodium [Moles/volume] in Serum or Plasma 134 mmol/L 136-145 L [facility] Aspartate aminotransferase [Enzymatic activity/volume] in Serum or Plasma 18 U/L <32 [facility] Urea nitrogen [Mass/volume] in Serum or Plasma 12 mg/dL 6-20 [facility] Osmolality of Serum or Plasma by calculation 284 mosm/kg 275-300 [facility] Creatinine/Urea nitrogen [Mass Ratio] in Serum or Plasma 18 [facility] Bicarbonate [Moles/volume] in Serum 20 mmol/L 22-29 L [facility] Alanine aminotransferase [Enzymatic activity/volume] in Seru m or Plasma 14 U/L <33 [facility] Anion gap 3 in Serum or Plasma 13 mmol/L 8-15 [facility] Albumin/Globulin [Mass Ratio] in Serum or Plasma 1.1 [facility] Glomerular filtration rate/1.73 sq M pre dicted among non-blacks [Volume Rate/Area] in Serum or Plasma by Creatinine-based formula (MDRD) >6 0 [facility] Glomerular filtration rate/1.73 sq M pre dicted among blacks [Volume Rate/Area] in Serum or Plasma by Creatinine-based formula (MDRD) >60 [facility] ID Date Data Source [id number] 05/17/2019 03:00:40 AM EDT [facility] Name Value Range Interpretation Code Description Data Lynn rce(s) Supporting Document(s) Leukocytes [#/volume] in Blood by Automated count 19.1 10*3/uL 4-10 H [facility] Erythrocytes [#/volume] in Blood by Automated count 3.95 10*6/uL 4.1- 5.3 L [facility] Hemoglobin [Mass/volume] in Blood 12.7 g/dL 11.5-15.5 [facility] Hematocrit [Volume Fraction] of Blood by Automated count 37.0 % 3 6-45 [facility] Erythrocyte mean corpuscular volume [Entitic volume] by Auto mated count 93.6 fL 80-96 [facility] Erythrocyte mean corpuscular hemoglobin [Entitic mass] by Automated count 32.2 pg 27-33 [facility] Erythrocyte mean corpuscular hemoglobin concentration [Mass/volume] by Autom[facility] 34.4 g[facility].0[facility] width [Ratio] by Automated count 13.4 % 11.5-14.5 [facility] Platelets [#/volume] in Blood by Automated count 265 10*3/uL 150-400 [facility] Confirmed Differential cell count method - Blood [facility] Neutrophils/100 leukocytes in Blood by Automated count 85 % [facility] Lymphocytes/100 leukocytes in Blood by Automated count 9 % [facility] Monocytes/100 leukocytes in Blood by Automated count 6 % [facility] Eosinophils/100 leukocytes in Blood by Automated count 0 % [facility] Basophils/100 leukocytes in Blood by Automated count 0 % [facility] Neutrophils [#/volume] in Blood by Automated count 16.20 10*3/uL 1.8- 7.0 H [facility] Lymphocytes [#/volume] in Blood by Automated count 1.72 10*3/uL 1.2-4 .0 [facility] Monocytes [#/volume] in Blood by Automated count 1.07 10*3/uL 0-0.8 H [facility] Eosinophils [#/volume] in Blood by Automated count 0.01 10*3/uL 0-0.5 [facility] Basophils [#/volume] in Blood by Automated count 0.08 10*3/uL 0-0.2 [facility] Nucleated erythrocytes/100 leukocytes [Ratio] in Blood by Automated count 0 /100{WBCs} 0-0 [facility] ID Date Data Source [id number] 05/16/2019 11:14:46 PM T [facility] CT ABDOMEN PELVIS WITH CONTRAST [id number] AL RESULTInterpreted by:VAHE WigginsROCEDURE INFORMATION: Exam: CT [...] rce(s) Supporting Document(s) ID Date Data Source [id number] 05/16/2019 08:57:26 PM [facility] Value Range Interpretation Code Description Data Lynn rce(s) Supporting Document(s) Glucose [Mass/volume] in Capillary blood by Glucometer 181 mg/dL 70- 140 H [facility] ID Date Data Source [id number] 05/16/2019 06:49:49 PM EDT [facility] Name Value Range Interpretation Code Description Data Lynn rce(s) Supporting Document(s) Leukocytes [#/volume] in Blood by Automated count 20.0 10*3/uL 4-10 H [facility] Erythrocytes [#/volume] in Blood by Automated count 4.11 10*6/uL 4.1- 5.3 [facility] Hemoglobin [Mass/volume] in Blood 13.1 g/dL 11.5-15.5 [facility] Hematocrit [Volume Fraction] of Blood by Automated count 38.2 % 3 6-45 [facility] Erythrocyte mean corpuscular volume [Entitic volume] by Auto mated count 92.8 fL 80-96 [facility] Erythrocyte mean corpuscular hemoglobin [Entitic mass] by Automated count 32.0 pg 27-33 [facility] Erythrocyte mean corpuscular hemoglobin concentration [Mass/volume] by Automated count 34.4 g/dL 32.0-36.0 [facility] E[facility]th[facility] distribution width [Ratio] by Automated count 13.3 % 11.5-14.5 [facility] Platelets [#/volume] in Blood by Automated count 287 10*3/uL 150-400 [facility] Differential cell count method - Blood [facility] Neutrophils/100 leukocytes in Blood by Automated count 89 % [facility] Lymphocytes/100 leukocytes in Blood by Automated count 7 % [facility] Monocytes/100 leukocytes in Blood by Automated count 4 % [facility] Eosinophils/100 leukocytes in Blood by Automated count 0 % [facility] Basophils/100 leukocytes in Blood by Automated count 0 % [facility] Neutrophils [#/volume] in Blood by Automated count 17.61 10*3/uL 1.8- 7.0 H [facility] Lymphocytes [#/volume] in Blood by Automated count 1.48 10*3/uL 1.2-4 .0 [facility] Monocytes [#/volume] in Blood by Automated count 0.88 10*3/uL 0-0.8 H [facility] Eosinophils [#/volume] in Blood by Automated count 0.00 10*3/uL 0-0.5 [facility] Basophils [#/volume] in Blood by Automated count 0.07 10*3/uL 0-0.2 [facility] Nucleated erythrocytes/100 leukocytes [Ratio] in Blood by Automated count 0 /100{WBCs} 0-0 [facility] ID Date Data Source [id number] 05/16/2019 07:13:34 PM EDT [facility] Name Value Range Interpretation Code Description Data Lynn rce(s) Supporting Document(s) Troponin T.cardiac [Mass/volume] in Serum or Plasma <0.01 [facility] ID Date Data Source [id number] 05/16/2019 07:13:34 PM EDT [facility] Name Value Range Interpretation Code Description Data Lynn rce(s) Supporting Document(s) Albumin [Mass/volume] in Serum or Plasma by Bromocresol green (BCG) dye binding method 3.6 g/dL 3.5-5.2 [facility] Bilirubin.total [Mass/volume] in Serum or Plasma 0.3 mg/dL <1.2 [facility] Calcium [Mass/volume] in Serum or Plasma 8.9 mg/dL 8.6-10.0 [facility] Chloride [Moles/volume] in Serum or Plasma 96 mmol/L 98-107 L [facility] Creatinine [Mass/volume] in Serum or Plasma 0.76 mg/dL 0.50-0.90 [facility] Glucose [Mass/volume] in Serum or Plasma 179 mg/dL 70-140 H [facility] Alkaline phosphatase [Enzymatic activity/volume] in Serum or Plasma 58 U/L 35-104 [facility] Potassium [Moles/volume] in Serum or Plasma 5.1 mmol/L 3.4-5.1 [facility] Protein [Mass/volume] in Serum or Plasma 6.9 g/dL 6.4-8.3 [facility] Sodium [Moles/volume] in Serum or Plasma 131 mmol/L 136-145 L [facility] Aspartate aminotransferase [Enzymatic activity/volume] in Serum or Plasma 18 U/L <32 [facility] Urea nitrogen [Mass/volume] in Serum or Plasma 12 mg/dL 6-20 [facility] Osmolality of Serum or Plasma by calculation 276 mosm/kg 275-300 [facility] Creatinine/Urea nitrogen [Mass Ratio] in Serum or Plasma 16 [facility] Bicarbonate [Moles/volume] in Serum 21 mmol/L 22-29 L [facility] Alanine aminotransferase [Enzymatic activity/volume] in Seru m or Plasma 16 U/L <33 [facility] Anion gap 3 in Serum or Plasma 14 mmol/L 8-15 [facility] Albumin/Globulin [Mass Ratio] in Serum or Plasma 1.1 [facility] Glomerular filtration rate/1.73 sq M pre dicted among non-blacks [Volume Rate/Area] in Serum or Plasma by Creatinine-based formula (MDRD) >6 0 [facility] Glomerular filtration rate/1.73 sq M pre dicted among blacks [Volume Rate/Area] in Serum or Plasma by Creatinine-based formula (MDRD) >60 [facility] ID Date Data Source [id number] 05/16/2019 05:40:42 PM EDT [facility] Name Value Range Interpretation Code Description Data Lynn rce(s) Supporting Document(s) Glucose [Mass/volume] in Capillary blood by Glucometer 187 mg/dL 70- 140 H [facility] Procedure Social History Code Duration Value Status Description Data Source(s ) Alcohol intake 03/31/2020 12:00:00 AM EST Ex-drinker (finding) comp leted Ex- drinker (finding) [facility] Tobacco use and exposure 03/31/2020 12:00:00 AM EST Never used co mpleted Never used [facility] Cigarette pack-years 03/31/2020 12:00:00 AM EST UNK completed [facility] Cigarettes smoked current (pack per day) - Reported 03/31/19 12:00:00 AM EST UNK [facility] Smoking 03/31/2020 12:00:00 AM EST Former smoker completed Former smoker [facility] Smoking 03/11/2020 12:00:00 AM EST Former Smoker completed Former Smoker eCW1 (Formerly [facility]) Smoking 03/11/2020 12:00:00 AM EST Former Smoker completed Former Smoker eCW1 (Formerly [facility]) Alcohol intake 03/09/2020 12:00:00 AM EST Ex-drinker (finding) comp leted Ex- drinker (finding) [facility] Alcohol intake 03/06/2020 12:00:00 AM EST Ex-drinker (finding) comp leted Ex- drinker (finding) [facility] Alcohol intake 02/24/2020 12:00:00 AM EST Ex-drinker (finding) comp leted Ex- drinker (finding) [facility] Smoking 01/29/2020 12:00:00 AM EST Former Smoker completed Former Smoker eCW1 (Formerly [facility]) Alcohol intake 01/26/2020 12:00:00 AM EST Ex-drinker (finding) comp leted Ex- drinker (finding) [facility] Alcohol intake 01/21/2020 12:00:00 AM EST Ex-drinker (finding) comp leted Ex- drinker (finding) [facility] Alcohol intake 01/19/2020 12:00:00 AM EST Ex-drinker (finding) comp leted Ex- drinker (finding) [facility] Alcohol intake 01/12/2020 12:00:00 AM EST Ex-drinker (finding) comp leted Ex- drinker (finding) [facility] Alcohol intake 01/02/2020 12:00:00 AM EST Ex-drinker (finding) comp leted Ex- drinker (finding) [facility] Smoking 01/01/2020 12:00:00 AM EST Former Smoker completed Former Smoker eCW1 (Formerly [facility]) Smoking 01/01/2020 12:00:00 AM EST Former Smoker completed Former Smoker eCW1 (Formerly [facility]) Alcohol intake 12/25/2019 12:00:00 AM EDT Ex-drinker (finding) comp leted Ex- drinker (finding) [facility] Alcohol intake 12/04/2019 12:00:00 AM EDT Ex-drinker (finding) comp leted Ex- drinker (finding) [facility] Alcohol intake 11/19/2019 12:00:00 AM EDT Ex-drinker (finding) comp leted Ex- drinker (finding) [facility] Alcohol intake 11/13/2019 12:00:00 AM EDT Ex-drinker (finding) comp leted Ex- drinker (finding) [facility] Alcohol intake 10/28/2019 12:00:00 AM EDT Ex-drinker (finding) comp leted Ex- drinker (finding) [facility] Alcohol intake 10/15/2019 12:00:00 AM EDT Ex-drinker (finding) comp leted Ex- drinker (finding) [facility] Alcohol intake 10/02/2019 12:00:00 AM EDT Ex-drinker (finding) comp leted Ex- drinker (finding) [facility] Alcohol intake 09/15/2019 12:00:00 AM EDT Ex-drinker (finding) comp leted Ex- drinker (finding) [facility] Cigarette pack-years 09/15/2019 12:00:00 AM EDT UNK completed [facility] Cigarettes smoked current (pack per day) - Reported 09/15/19 12:00:00 AM EDT UNK completed [facility] Smoking 09/15/2019 12:00:00 AM EDT Former smoker completed Former smoker [facility] Alcohol intake 09/11/2019 12:00:00 AM EDT Ex-drinker (finding) comp leted Ex- drinker (finding) [facility] Cigarette pack-years 09/11/2019 12:00:00 AM EDT UNK completed [facility] Cigarettes smoked current (pack per day) - Reported 09/11/19 12:00:00 AM EDT UNK completed [facility] Smoking 09/11/2019 12:00:00 AM EDT Former smoker completed Former smoker [facility] Smoking 09/09/2019 12:00:00 AM EDT Former Smoker completed Former Smoker eCW1 (Formerly [facility]) Smoking 09/09/2019 12:00:00 AM EDT Former Smoker completed Former Smoker eCW1 (Formerly [facility]) Alcohol intake 08/20/2019 12:00:00 AM EDT Ex-drinker (finding) comp leted Ex- drinker (finding) [facility] Cigarette pack-years 08/20/2019 12:00:00 AM EDT UNK [facility] Cigarettes smoked current (pack per day) - Reported 08/20/19 12:00:00 AM EDT UNK completed [facility] Smoking 08/20/2019 12:00:00 AM EDT Former smoker completed Former smoker [facility] Alcohol intake 07/23/2019 12:00:00 AM EDT Ex-drinker (finding) comp leted Ex- drinker (finding) [facility] Cigarette pack-years 07/23/2019 12:00:00 AM EDT UNK [facility] Cigarettes smoked current (pack per day) - Reported 07/23/19 12:00:00 AM EDT UNK completed [facility] Smoking 07/23/2019 12:00:00 AM EDT Former smoker completed Former smoker [facility] Alcohol intake 07/02/2019 12:00:00 AM EDT Ex-drinker (finding) comp leted Ex- drinker (finding) [facility] Cigarette pack-years 07/02/2019 12:00:00 AM EDT UNK completed [facility] Cigarettes smoked current (pack per day) - Reported 07/02/19 12:00:00 AM EDT UNK completed [facility] Smoking 07/02/2019 12:00:00 AM EDT Current every day smoker co mpleted Current every day smoker [facility] Alcohol intake 06/11/2019 12:00:00 AM EDT Ex-drinker (finding) comp leted Ex- drinker (finding) [facility] Cigarette pack-years 06/11/2019 12:00:00 AM EDT UNK [facility] Cigarettes smoked current (pack per day) - Reported 06/11/19 12:00:00 AM EDT UNK completed [facility] Smoking 06/11/2019 12:00:00 AM EDT Current every day smoker co mpleted Current every day smoker [facility] Alcohol intake 05/16/2019 12:00:00 AM EDT Ex-drinker (finding) comp leted Ex- drinker (finding) [facility] Cigarette pack-years 05/16/2019 12:00:00 AM EDT UNK [facility] Cigarettes smoked current (pack per day) - Reported 05/16/19 12:00:00 AM EDT UNK completed [facility] Smoking 05/16/2019 12:00:00 AM EDT Current every day smoker co mpleted Current every day smoker [facility] 05/16/2019 12:00:00 AM EDT Cigarette Smoker completed Cig arette Smoker [facility] 05/16/2019 12:00:00 AM EDT Current smoker completed Curre nt smoker [facility] 05/16/2019 12:00:00 AM EDT Cigarette Smoker completed Cig arette Smoker [facility] 05/16/2019 12:00:00 AM EDT Current smoker completed Curre nt smoker [facility] 05/16/2019 12:00:00 AM EDT Cigarette Smoker completed Cig arette Smoker [facility] 05/16/2019 12:00:00 AM EDT Current smoker completed Curre nt smoker [facility] 05/16/2019 12:00:00 AM EDT Cigarette Smoker completed Cig arette Smoker [facility] 05/16/2019 12:00:00 AM EDT Current smoker completed Curre nt smoker [facility] 05/16/2019 12:00:00 AM EDT Cigarette Smoker completed Cig arette Smoker [facility] 05/16/2019 12:00:00 AM EDT Current smoker completed Curre nt [facility] Vital Signs ID Date Data Source UNK Name Value Range Interpretation Code Description Data Source(s) Diastolic blood pressure 62 mm[Hg] 62 mm[Hg] eCW1 (Formerly [facility]) Systolic blood pressure 110 mm[Hg] 110 mm[Hg] e CW1 (Formerly [facility]) Body temperature 98.1 [degF] 98.1 [degF] eCW1 ( Formerly [facility]) Respiratory rate 18 /min 18 /min eCW1 ([facility]) Heart rate 103 /min 103 /min eCW1 ([facility]) Body mass index (BMI) [Ratio] 28.59 kg/m2 28.59 kg/m2 eCW1 (Formerly [facility]) Body height 63 [in_i] 63 [in_i] eCW1 ([facility]) Body weight 161.4 [lb_av] 161.4 [lb_av] eCW1 ([facility]) Diastolic blood pressure 72 mm[Hg] 72 mm[Hg] eCW1 (Formerly [facility]) Systolic blood pressure 120 mm[Hg] 120 mm[Hg] e CW1 (Formerly [facility]) Body temperature 99.6 [degF] 99.6 [degF] eCW1 ( Formerly [facility]) Respiratory rate 18 /min 18 /min eCW1 ([facility]) Heart rate 103 /min 103 /min eCW1 ([facility]) Body mass index (BMI) [Ratio] 29.05 kg/m2 29.05 kg/m2 W1 (Formerly [facility]) Body height 63 [in_i] 63 [in_i] eCW1 ([facility]) Body weight 164 [lb_av] 164 [lb_av] eCW1 ([facility]) Diastolic blood pressure--supine 76 mm[Hg] 76 mm[Hg] MEDENT ([facility]) Ra, med cuff Systolic blood pressure--supine 104 mm[Hg] 104 mm[Hg] MEDENT ([facility]) Ra, med cuff Diastolic blood pressure--sitting 70 mm[Hg] 70 mm[Hg] MEDENT ([facility]) Ra, med cuff Systolic blood pressure--sitting 98 mm[Hg] 98 mm[Hg] MEDENT ([facility]) Ra, med cuff Respiratory rate 16 /min 16 /min MEDENT ( [facility]) Heart rate 72 /min 72 /min [facility] ([facility]) Body mass index (BMI) [Ratio] 30.3 kg/m2 30.3 k g/m2 MEDENT ([facility]) Body height 63 [in_i] 63 [in_i] MEDENT ([facility]) 5'3" Body weight 171.00 [lb_av] 171.00 [lb_av] MEDEN T ([facility]) Diastolic blood pressure 70 mm[Hg] 70 mm[Hg] eCW1 (Formerly [facility]) Systolic blood pressure 120 mm[Hg] 120 mm[Hg] e CW1 (Formerly [facility]) Body temperature 97.4 [degF] 97.4 [degF] eCW1 ( Formerly [facility]) Respiratory rate 20 /min 20 /min eCW1 ([facility]) Heart rate 132 /min 132 /min eCW1 ([facility]) Body mass index (BMI) [Ratio] 30.15 kg/m2 30.15 kg/m2 eCW1 (Formerly [facility]) Body height 63 [in_i] 63 [in_i] eCW1 ([facility]) Body weight 170.2 [lb_av] 170.2 [lb_av] eCW1 ([facility]) Diastolic blood pressure 70 mm[Hg] 70 mm[Hg] eCW1 (Formerly [facility]) Systolic blood pressure 110 mm[Hg] 110 mm[Hg] e CW1 (Formerly [facility]) Body temperature 96.8 [degF] 96.8 [degF] eCW1 ( Formerly [facility]) Respiratory rate 18 /min 18 /min eCW1 ([facility]) Heart rate 95 /min 95 /min eCW1 ([facility]) Body mass index (BMI) [Ratio] 32.17 kg/m2 32.17 kg/m2 eCW1 (Formerly [facility]) Body height 63 [in_i] 63 [in_i] eCW1 ([facility]) Body weight 181.6 [lb_av] 181.6 [lb_av] eCW1 ([facility]) Diastolic blood pressure 68 mm[Hg] 68 mm[Hg] eCW1 (Formerly [facility]) Systolic blood pressure 120 mm[Hg] 120 mm[Hg] e CW1 (Formerly [facility]) Body temperature 97.1 [degF] 97.1 [degF] eCW1 ( Formerly [facility]) Respiratory rate 18 /min 18 /min eCW1 ([facility]) Heart rate 96 /min 96 /min eCW1 ([facility]) Body mass index (BMI) [Ratio] 31.49 kg/m2 31.49 kg/m2 eCW1 (Formerly [facility]) Body height 63 [in_us] 63 [in_us] eCW1 ([facility]) Body weight Measured 177.8 [lb_av] 177.8 [lb_av ] eCW1 (Formerly [facility]) Diastolic blood pressure 72 mm[Hg] 72 mm[Hg] eCW1 (Formerly [facility]) Systolic blood pressure 120 mm[Hg] 120 mm[Hg] e CW1 (Formerly [facility]) Body temperature 97.4 [degF] 97.4 [degF] eCW1 ( Formerly [facility]) Respiratory rate 18 /min 18 /min eCW1 ([facility]) Heart rate 98 /min 98 /min eCW1 ([facility]) Body mass index (BMI) [Ratio] 33.72 kg/m2 33.72 kg/m2 eCW1 (Formerly [facility]) Body height 63 [in_us] 63 [in_us] eCW1 ([facility]) Body weight Measured 190.4 [lb_av] 190.4 [lb_av ] eCW1 (Formerly [facility]) ID Date Data Source [id number] 03/31/2020 03:20:01 PM [facility] Name Value Range Interpretation Code Description Data Source(s) WEIGHT RECORDED 160.8 lb 160.8 lb [facility] ID Date Data Source [id number] 03/17/2020 12:53:42 PM [facility] Name Value Range Interpretation Code Description Data Source(s) WEIGHT RECORDED 159 lb 159 lb [facility] Body height Measured 60.98 in 60.98 in [facility] ID Date Data Source [id number] 03/10/2020 09:01:32 AM [facility] Value Range Interpretation Code Description Data Source(s) WEIGHT RECORDED 165 lb 165 lb [facility] Body height Measured 60.98 in 60.98 in [facility] ID Date Data Source [id number] 02/24/2020 02:17:47 PM [facility] Name Value Range Interpretation Code Description Data Source(s) WEIGHT RECORDED 163 lb 163 lb [facility] ID Date Data Source [id number] 01/26/2020 02:26:40 PM [facility] Value Range Interpretation Code Description Data Source(s) WEIGHT RECORDED 162 lb 162 lb [facility] Body height Measured 61 in 61 in [facility] ID Date Data Source [id number] 01/21/2020 03:11:36 PM [facility] Name Value Range Interpretation Code Description Data Source(s) WEIGHT RECORDED 163.4 lb 163.4 lb [facility] ID Date Data Source [id number] 01/21/2020 02:09:53 PM [facility] Name Value Range Interpretation Code Description Data Source(s) WEIGHT RECORDED 165 lb 165 lb [facility] ID Date Data Source [id number] 01/19/2020 10:09:38 AM [facility] Name Value Range Interpretation Code Description Data Source(s) WEIGHT RECORDED 168.2 lb 168.2 lb [facility] ID Date Data Source [id number] 01/20/2020 03:54:51 PM EST [facility] Name Value Range Interpretation Code Description Data Source(s) WEIGHT RECORDED 171 lb 171 lb [facility] ID Date Data Source [id number] 12/25/2019 03:33:46 PM EDT [facility] Name Value Range Interpretation Code Description Data Source(s) WEIGHT RECORDED 172.8 lb 172.8 lb [facility] ID Date Data Source [id number] 12/04/2019 03:10:01 PM EDT [facility] Name Value Range Interpretation Code Description Data Source(s) WEIGHT RECORDED 180.6 lb 180.6 lb [facility] ID Date Data Source [id number] 12/02/2019 12:02:17 PM EDT [facility] Name Value Range Interpretation Code Description Data Source(s) WEIGHT RECORDED 181.8 lb 181.8 lb [facility] ID Date Data Source [id number] 11/15/2019 08:47:36 AM EDT [facility] Name Value Range Interpretation Code Description Data Source(s) WEIGHT RECORDED 185.2 lb 185.2 lb [facility] ID Date Data Source [id number] 10/28/2019 09:02:08 AM EDT [facility] Name Value Range Interpretation Code Description Data Source(s) WEIGHT RECORDED 185.2 lb 185.2 lb [facility] ID Date Data Source [id number] 10/15/2019 05:19:44 PM EDT [facility] Name Value Range Interpretation Code Description Data Source(s) WEIGHT RECORDED 183.6 lb 183.6 lb [facility] Hospital ID Date Data Source [id number] 10/08/2019 06:10:48 PM EDT [facility] Name Value Range Interpretation Code Description Data Source(s) WEIGHT RECORDED 183.6 lb 183.6 lb [facility] Hospital ID Date Data Source [id number] 10/02/2019 02:41:44 PM EDT [facility] Name Value Range Interpretation Code Description Data Source(s) WEIGHT RECORDED 182 lb 182 lb [facility] Hospital ID Date Data Source [id number] 09/25/2019 09:00:20 AM EDT [facility] Name Value Range Interpretation Code Description Data Source(s) WEIGHT RECORDED 181.6 lb 181.6 lb [facility] ID Date Data Source [id number] 09/16/2019 02:06:07 PM EDT [facility] Name Value Range Interpretation Code Description Data Source(s) WEIGHT RECORDED 176 lb 176 lb [facility] ID Date Data Source [id number] 09/22/2019 10:41:08 AM EDT [facility] Name Value Range Interpretation Code Description Data Source(s) WEIGHT RECORDED 179.4 lb 179.4 lb [facility] ID Date Data Source [id number] 08/26/2019 02:07:52 PM EDT [facility] Value Range Interpretation Code Description Data Source(s) WEIGHT RECORDED 176.2 lb 176.2 lb [facility] ID Date Data Source [id number] 08/05/2019 09:13:03 AM EDT [facility] Value Range Interpretation Code Description Data Source(s) WEIGHT RECORDED 177.8 lb 177.8 lb [facility] ID Date Data Source [id number] 07/22/2019 11:10:56 AM EDT [facility] Name Value Range Interpretation Code Description Data Source(s) WEIGHT RECORDED 177 lb 177 lb [facility] ID Date Data Source [id number] 07/04/2019 07:56:29 AM EDT [facility] Value Range Interpretation Code Description Data Source(s) WEIGHT RECORDED 184 lb 184 lb [facility] ID Date Data Source [id number] 06/12/2019 08:13:51 AM EDT [facility] Name Value Range Interpretation Code Description Data Source(s) WEIGHT RECORDED 184.6 lb 184.6 lb [facility] ID Date Data Source [id number] 05/29/2019 09:03:46 AM EDT [facility] Name Value Range Interpretation Code Description Data Source(s) WEIGHT RECORDED 190.7 lb 190.7 lb [facility] Body height Measured 63.19 in 63.[address] [facility] Patient Treatment Plan of Care Planned Activity Planned Date Details Description Data Source (s) Magnesium Oxide 400 MG Oral Capsule 03/31/2020 12:00:00 AM [facility] Ondansetron 8 MG Oral Tablet 03/31/2020 12:00:00 AM [facility] Etoposide 50 MG Oral Capsule 03/31/2020 12:00:00 AM [facility] Dexamethasone 4 MG Oral Tablet 03/31/2020 12:00:00 AM [facility] Lorazepam 0.5 MG Oral Tablet 03/09/2020 12:00:00 AM [facility] Lorazepam 0.5 MG Oral Tablet 02/04/2020 12:00:00 AM [facility] 200 ACTUAT Albuterol 0.09 MG/ACTUAT Metered Dose Inhal er [Ventolin] 01/28/2020 12:00:00 AM [place] [address] (Formerly [facility]) Cortisporin [id number] 01/28/2020 12:00:00 AM [place] [address] (Formerly [facility]) Acetaminophen 325 MG / Hydrocodone Bitartrate 5 MG Ora l Tablet 01/12/2020 12:00:00 AM [facility] ospital atorvastatin 20 MG Oral Tablet 01/01/2020 12:00:00 AM EST [facility] (Formerly [facility]) atorvastatin 20 MG Oral Tablet 01/01/2020 12:00:00 AM EST [facility] (Formerly [facility]) Clobetasol Propionate E 0.05 % 01/01/2020 12:00:00 AM EST [facility] (Formerly [facility]) atorvastatin 20 MG Oral Tablet 01/01/2020 12:00:00 AM EST [facility] (Formerly [facility]) Clobetasol Propionate E 0.05 % 01/01/2020 12:00:00 AM EST [facility] (Formerly [facility]) atorvastatin 20 MG Oral Tablet 01/01/2020 12:00:00 AM EST [facility] (Formerly [facility]) Levothyroxine Sodium 0.125 MG Oral Tablet 12/04/2019 12:00:[address] [facility] Levothyroxine Sodium 0.125 MG Oral Tablet 11/25/2019 12:00:[address] [facility] Levothyroxine Sodium 0.05 MG Oral Tablet 11/13/2019 12:00:00 AM [facility] Levothyroxine Sodium 0.025 MG Oral Tablet 11/13/2019 12:00:[address] [facility] Dexamethasone 2 MG Oral Tablet 10/15/2019 12:00:00 AM [facility] Dexamethasone 2 MG Oral Tablet 10/15/2019 12:00:00 AM [facility] Memantine hydrochloride 10 MG Oral Tablet 09/16/2019 12:00:[address] [facility] Memantine HCl 28 x 5 MG & 21 x 10 MG Oral Tablet (NAME NDA TITRATION PACK) 09/16/2019 12:00:00 AM [facility] Levothyroxine Sodium 0.025 MG Oral Tablet 09/11/2019 12:00:[address] [facility] Ondansetron 8 MG Oral Tablet 07/24/2019 12:00:00 AM [facility] Dexamethasone 4 MG Oral Tablet 07/24/2019 12:00:00 AM [facility] Etoposide 50 MG Oral Capsule 07/24/2019 12:00:00 AM [facility] Loratadine 10 MG Oral Tablet 07/23/2019 12:00:00 AM [facility] Allopurinol 300 MG Oral Tablet 07/09/2019 12:00:00 AM [place] [address] (Formerly [facility]) Allopurinol 300 MG Oral Tablet 07/09/2019 12:00:00 AM [place] [address] ([facility]ly [facility]) Allopurinol 300 MG Oral Tablet 07/09/2019 12:00:00 AM [place] [address] ([facility]ly [facility]) Levothyroxine Sodium 0.075 MG Oral Tablet 07/08/2019 12:00:[address] [facility] Dexamethasone 4 MG Oral Tablet 07/03/2019 12:00:00 AM [facility] Etoposide 50 MG Oral Capsule 07/03/2019 12:00:00 AM [facility] Ondansetron 4 MG Oral Tablet 07/02/2019 12:00:00 AM [facility] Prochlorperazine 10 MG Oral Tablet 07/02/2019 12:00:00 AM [facility] Dexamethasone 4 MG Oral Tablet 06/12/2019 12:00:00 AM [facility] Ondansetron 4 MG Oral Tablet 06/11/2019 12:00:00 AM [facility] Prochlorperazine 10 MG Oral Tablet 06/11/2019 12:00:00 AM [facility] Etoposide 50 MG Oral Capsule 06/11/2019 12:00:00 AM [facility] Blood Pressure Kit - 05/27/2019 12:00:00 AM [facility] eCW[facility] (Formerly [facility]) Levothyroxine Sodium 0.1 MG Oral Tablet 05/21/2019 12:00:00 AM [facility] Allopurinol 300 MG Oral Tablet 05/20/2019 12:00:00 AM [facility] Metoprolol Tartrate 50 MG Oral Tablet 05/20/2019 12:00:00 AM [facility] atorvastatin 40 MG Oral Tablet 05/20/2019 12:00:00 AM [facility] Cholecalciferol 1000 UNT Oral Tablet 05/20/2019 12:00:00 AM [facility] Lisinopril 10 MG Oral Tablet 05/20/2019 12:00:00 AM [facility] Benzocaine 15 MG / Menthol 3.6 MG Oral Lozenge 05/20/2019 12:00:00 AM [facility] Prochlorperazine 10 MG Oral Tablet 05/20/2019 12:00:00 AM [facility] Ondansetron 8 MG Disintegrating Oral Tablet 05/20/2019 12:00:00 AM [facility] Ondansetron 4 MG Oral Tablet 05/20/2019 12:00:00 AM [facility] Acetaminophen 325 MG / Hydrocodone Bitartrate 5 MG Ora l Tablet 05/20/2019 12:00:00 AM [facility]spital Acetaminophen 325 MG Oral Tablet 05/20/2019 12:00:00 AM [facility] sodium chloride (preservative free) 0.9 % flush 10 mL 05/17/2019 11:33:14 AM [facility]spital dextrose 50 % IV solution 25 mL 05/16/2019 06:42:47 PM [facility] Glucagon 1 MG Injection 05/16/2019 06:42:47 PM [facility] Glucose 0.4 MG/MG Oral Gel 05/16/2019 06:42:47 PM [facility] dextrose 50 % IV solution 25 mL 05/16/2019 04:41:30 PM EDT [facility] Glucagon 1 MG [facility]MG [facility]16[facility] Rectal [facility]/16[facility]2019 [facility] Nap[facility] sodium 220 MG Oral Capsule [Aleve] 04/08/2019 12:00:00 AM EST eCW1 (Formerly [facility]) Metformin hydrochloride 500 MG Oral Tablet 04/08/2019 12:00:[address] eCW1 (Formerly [facility]) Metformin hydrochloride 1000 MG Oral Tablet [facility] Levothyroxine Sodium 0.025 MG Oral Tablet [facility] Levothyroxine Sodium 0.05 MG Oral Tablet [facility] Cholecalciferol 2000 UNT Oral Tablet [facility] Metoprolol Tartrate 50 MG Oral Tablet [facility] Lisinopril 10 MG Oral Tablet [facility] atorvastatin 40 MG Oral Tablet [facility] Levothyroxine Sodium 0.1 MG Oral Tablet [facility]
--- NOTE | 2020-04-12 16:22 | REP ---
INDICATION: CHEST PAIN. COMPARISON: Comparison chest x-ray 17 November 2019. TECHNIQUE: Portable upright AP chest radiograph. FINDINGS: The lungs are well inflated and free of infiltrate. Pleural angles are sharp. Heart size is normal. Pulmonary vasculature is not increased. Monitoring electrodes are seen. IMPRESSION: No active disease. <Electronically signed by Ottoniel Bridges > 04/12/20 [id number]
[2020-04-12] MEDS ORDERED: NS 1,000 ML IV ONE (17:15)
[2020-04-12 17:25] LABS: INR 1.01; PROTHROMBIN TIME 13.5 SECONDS (12.5-14.3)
[2020-04-12 17:26] LABS: PARTIAL THROMBOPLASTIN TIME 27.9 SECONDS (24.2-38.5)
[2020-04-12 17:30] LABS: EOS % 3.1 % (0.0-3.0); LYMPH # 0.3 10^3/uL (1.5-5.0); LYMPH % 84.4 % (24.0-44.0); MEAN CORPUSCULAR HEMOGLOBIN 35.3 pg (27.0-33.0); MEAN CORPUSCULAR HGB CONC 35.7 g/dl (32.0-36.5); MEAN CORPUSCULAR VOLUME 98.9 fl (80.0-96.0); MONO % 9.4 % (0.0-8.0); PLATELET COUNT, AUTOMATED 14 10^3/uL (150-450); RED BLOOD COUNT 2.83 10^6/uL (4.00-5.40); WHITE BLOOD COUNT 0.3 10^3/uL (4.0-10.0)
[2020-04-12 17:44] LABS: ALBUMIN 3.2 GM/DL (3.2-5.2); ALT/SGPT 33 U/L (12-78); BILIRUBIN,DIRECT 0.2 MG/DL (0.0-0.2); BILIRUBIN,TOTAL 0.4 MG/DL (0.2-1.0); CK-MB VALUE MASS < 1.0 NG/ML (<3.6); CPK CREATINE PHOSPHOKINASE 53 U/L (26-192); LIPASE 73 U/L (73-393); MAGNESIUM LEVEL 1.3 MG/DL (1.8-2.4); MB/CK RELATIVE INDEX 1.89 (< OR =4); NT-PRO BNP 354 PG/ML (<125); TOTAL PROTEIN 6.8 GM/DL (6.4-8.2); TROPONIN I < 0.02 NG/ML (< 0.10)
[2020-04-12] MEDS ORDERED: ACETAMINOPHEN 325 MG TAB PO ONE (17:45)
[2020-04-12] MEDS ORDERED: MAG SULF 1GM/100ML (MAG RUN) 1 GM in IV 1 EA IV ONE (18:30)
[2020-04-12] MEDS ORDERED: ZYLO300T6 PO (19:12)
[2020-04-12] MEDS ORDERED: ATOR1TAB21 PO (19:12)
[2020-04-12] MEDS ORDERED: LEVO125T4 PO (19:14)
[2020-04-12 19:57] LABS: RSV AMPLIFICATION NEGATIVE (NEGATIVE)
[2020-04-12] MEDS: PIPERACILLIN/TAZOBACTAM SOD 4.5 GM in D5W MINI-BAG PLUS 50 ML IV SCH (20:07)
[2020-04-12] MEDS: FILGRASTIM 480 MCG/0.8 ML SYRINGE (J1442) SC SCH (20:12)
--- NOTE | 2020-04-12 20:26 | HPEPDOC ---
General Date of Admission Apr 12, 2020 Date of Service: Apr 12, 2020 Chief Complaint The patient is a 54-year-old female admitted with a reason for visit of Chest Pain. History of Present Illness Mrs. Garvey is a 54 year old female with SCLC with mets to the brain here with chest pain found to have ERIKA and severe neutropenia. She recently had chemotherapy on Mar 31 through . About 2 to 3 days ago, she started to have chest pain. Chest pain was intermit, but became more continuous. Rated 5 to 6/10. Yesterday, it became continuous and continued until she vomited here in the ED. Chest pain resolved, but she was found to have ERIKA and severe neutropenia. Spoke with Dr. Galo. Recommended Zosyn and neupogen. Heme/Onc recommends transfusing platelets if PLT count drops below 10 or she's having mucosal bleeding. Patient will be admitted fro severe neutropenia and ERIKA. Home Medications Scheduled Allopurinol (Zyloprim) 300 Mg Tablet, 300 MG PO DAILY, (Reported) Atorvastatin Calcium (Atorvastatin Calcium) 20 Mg Tablet, 20 MG PO QHS, (Reported) Glucosa Catalan 2Kcl/Chondroitin Catalan (Glucosamine & Chondroitin Cap) 1 Each Capsule, 1 EACH PO BID, (Reported) Levothyroxine Sodium (Levothyroxine Sodium) 125 Mcg Tablet, 125 MCG PO QAM, (Reported) Metformin HCl (Metformin HCl) 1,000 Mg Tablet, 1,000 MG PO BID, (Reported) Metoprolol Tartrate (Metoprolol Tartrate) 50 Mg Tab, 50 MG PO BID, (Reported) Multivitamin,Therapeutic (Thera-Tabs) 1 Each Tablet, 1 TAB PO DAILY, (Reported) Scheduled PRN Acetaminophen (Acetaminophen) 500 Mg Tablet, 1,000 MG PO Q6H PRN for PAIN, (Reported) Ondansetron HCl (Ondansetron HCl) 8 Mg Tablet, 8 MG PO Q6H PRN for NAUSEA OR VOMITING Allergies Coded Allergies: No Known Allergies (Unverified , 05/15/19) Past Medical History Medical History 1. 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 Suspected spinal mets - following with oncology in [place] 3. Hypertension 4. Diabetes mellitus type 2 5. Hypothyroidism 6. Degenerative disc disease 7. DVT in upper extremity 04/2016 Surgical History 1. Tubal ligation Family History Father: Meniere's disease, Hypertension Mother: Diabetes mellitus, hypertension, hypercholesterolemia Social History * Smoker: former Smoker Alcohol: Denies Drugs: denies A-FIB/CHADSVASC A-FIB History Current/History of A-Fib/PAF?: No Review of Systems Constitutional: Denies: Fever Eyes: Denies: Vision change ENT: Reports: Sore Throat (after vomiting today) Skin: Denies: Rash Pulmonary: Reports: Dyspnea (after vomiting) Cardiovascular: Reports: Chest Pain (started 3 days ago, pointy pain, was intermittent, then constant for 1 day, then went away after vomiting) Gastrointestinal: Reports: Nausea, Vomiting (once in the ED); Denies: Abdominal Pain Genitourinary: Denies: Dysuria Hematologic: Denies: Bruising Neurological: Reports: Other Symptoms (denies paresthesia) Physical Examination General Exam: Positive: Alert, Cooperative, Mild Distress Eye Exam: Positive: EOMI; Negative: Sclera icteric ENT Exam: Positive: Tongue Midline Neck Exam: Positive: Supple Chest Exam: Positive: Clear to auscultation Heart Exam: Positive: Tachycardic, Regular Rhythm Abdomen Exam: Positive: Normal bowel sounds, Soft; Negative: Tenderness Extremity Exam: Positive: Edema Neuro Exam: Positive: Cranial Nerves 3-12 NL Psych Exam: Positive: Mental status NL, Mood NL Vital Signs Vital Signs Date Time Temp Pulse Resp B/P (MAP) Pulse Ox O2 Delivery O2 Flow Rate FiO2 04/12/20 17:46 121 99 04/12/20 17:45 118/81 (93) 04/12/20 15:18 99.7 22 Room Air Laboratory Data Labs 24H Laboratory Tests 2 04/12/20 16:41: Immature Granulocyte % (Auto) 3.1H, Neutrophils (%) (Auto) 0.0L, Lymphocytes (%) (Auto) 84.4H, Monocytes (%) (Auto) 9.4H, Eosinophils (%) (Auto) 3.1H, Basophils (%) (Auto) 0.0, Neutrophils # (Auto) 0.0L, Lymphocytes # (Auto) 0.3L, Monocytes # (Auto) 0.0, Eosinophils # (Auto) 0.0, Basophils # (Auto) 0.0, Nucleated Red Blood Cells % (auto) 0.0, Immature Platelet Fraction 8.8, Prothrombin Time 13.5, Prothromb Time International Ratio 1.01, Activated Partial Thromboplast Time 27.9, Magnesium Level 1.3L, Total Bilirubin 0.4, Direct Bilirubin 0.2, Aspartate Amino Transf (AST/SGOT) 35, Alanine Aminotransferase (ALT/SGPT) 33, Alkaline Phosphatase 167H, Total Creatine Kinase 53, Creatine Kinase MB < 1.0, Creatine Kinase MB Relative Index 1.89, Troponin I < 0.02, KA-Iur-J-Type Natriuretic Peptide 354H, Total Protein 6.8, Albumin 3.2, Albumin/Globulin Ratio 0.9L, Lipase 73, Thyroid Stimulating Hormone (TSH) 18.900H 04/12/20 16:59: POC Glucose (Misc Panel) 139H, POC Sodium (Misc Panel) 134L, POC Potassium (Misc Panel) 3.6, POC Chloride (Misc Panel) 100, POC Total CO2 (Misc Panel) 23.0, POC Blood Urea Nitrogen (Misc Panel 28H, POC Ionized Calcium (Misc Panel) 5.6H, POC Creatinine (Misc Panel) 2.0H, POC Hematocrit (Misc Panel) 29.0L 04/12/20 18:45: Coronavirus (COVID-19)(PCR) NEGATIVE, Influenza Type A (RT-PCR) NEGATIVE, Influenza Type B (RT-PCR) NEGATIVE, Respiratory Syncytial Virus (PCR) NEGATIVE CBC/BMP Laboratory Tests 04/12/20 16:41 Assessment/Plan Mrs. Garvey is a 54 year old female with SCLC with mets to the brain here with chest pain found to have ERIKA and severe neutropenia. She recently had chemotherapy from Mar 31 to which most likely caused her pancytopenia. Consulted Dr. Galo who recommended Neupogen and Zosyn. Will monitor for improvement in WBC while here. Hemo/Onc recommendations appreciated. Otherwise, patient has ERIKA, will give IVF. Patient also has an increase in TSH, will increase levothyroxine from 125mcg to 150mcg Plan / VTE VTE Prophylaxis Ordered?: Yes VTE Exclusion Pharmacological: Thrombocytopenia Plan Plan 1. Severe neutropenia -2/2 chemotherapy -Start Neupogen -Zosyn for antibiotic prophylaxis. Patient has not yet had fever -Hematology oncology consulted, recommendations appreciated 2. Thrombocytopenia -No mucosal bleeding -Monitor -If drops below 10 or has bleeding, Can transfuse platelets 3. ERIKA -Creatinine on admission was 2 -Baseline creatinine around 1.3 -IVF 4. Hypothyroidism -TSH increased from prior (9 increased to 18) -Will increase levothyroxine from 125mcg to 150mcg -Patient should follow up with PCP about hypothyroidism management 5. Diabetes mellitus -Sliding scale insulin and carbohydrate consistent diet 6. DVT ppx -TEDs, no chemical PPX due to thrombocytopenia NAZ MODI DO Apr 12, 2020 20:26
[2020-04-12] MEDS ORDERED: ONDANSETRON 4MG/2ML VIAL IV PRN (20:30)
[2020-04-12] MEDS ORDERED: GLUCOSE 4GM CHEW TABLET PO PRN (20:30)
[2020-04-12] MEDS ORDERED: GLUCAGON INJ 1MG VIAL SC PRN (20:30)
[2020-04-12] MEDS ORDERED: ACETAMINOPHEN 500 MG TAB PO PRN (20:30)
[2020-04-12] MEDS ORDERED: DEXTROSE 50% 50 ML SYRINGE IV PRN (20:30)
--- OUTSIDE RECORDS SUMMARY | 2020-04-12 20:30 | CCD ---
Author Author [facility] Organization [facility] Address Unknown Phone Unavailable Care Team Providers Care Design Cell Engineer Name Role Phone Yuridia UGALDE Unavailable Unavailable [...] RUBEN MENSAH Unavailable Unavailable TAYLOR, S RUBEN MENASH Unavailable Unavailable TAYLOR, S RUBEN MENSAH Unavailable [...] Unavailable TAYLOR, S RUBEN MENSAH Unavailable Unavailable ATYLOR S RUBEN MENSAH Unavailable Unavailable TAYLOR S [...] LINDA NUNN MD, PHD Unavailable Unavailabl e NGYUEN, LINDA NUNN MD, PHD Unavailable Unavailabl e [...] MIX, TERENCE MENSAH Unavailable Unavailable MIX, TERENCE MESNAH Unavailable Unavailable MIX, TERENCE MENSAH Unavailable [...] Unavailable KINZA KAISER MD Unavailable Unavailable KINZA KAIESR MD Unavailable Unavailable KINZA KAISER MD Unavailable [...] ALFREDCASSY MENSAH Unavailable Unavailable Aloi, M Pavan WELDER OPERATOR Unavailable Unavailable Aloi, M Pavan WELDER OPERATOR Unavailable Unavailable Aloi, M Pavan WELDER OPERATOR Unavailable Unavailable Aloi, M Pavan WELDER OPERATOR Unavailable Unavailable Aloi, M Pavan WELDER OPERATOR Unavailable Unavailable Aloi, M Pavan WELDER OPERATOR Unavailable Unavailable Aloi, M Pavan WELDER OPERATOR Unavailable Unavailable Aloi, M Pavan WELDER OPERATOR Unavailable Unavailable Aloi, M Pavan WELDER OPERATOR Unavailable Unavailable Aloi, M Pavan WELDER OPERATOR Unavailable Unavailable Aloi, M Pavan WELDER OPERATOR Unavailable Unavailable Aloi, M Pavan WELDER OPERATOR Unavailable Unavailable Aloi, M Pavan WELDER OPERATOR Unavailable Unavailable Aloi, M Pavan WELDER OPERATOR Unavailable Unavailable Aloi, M Pavan WELDER OPERATOR Unavailable Unavailable Aloi, M Pavan WELDER OPERATOR Unavailable Unavailable Aloi, M Pavan WELDER OPERATOR Unavailable Unavailable Aloi, M Pavan WELDER OPERATOR Unavailable Unavailable Aloi, M Pavan WELDER OPERATOR Unavailable Unavailable Aloi, M Pavan WELDER OPERATOR Unavailable Unavailable Aloi, M Pavan WELDER OPERATOR Unavailable Unavailable Aloi, M Pavan WELDER OPERATOR Unavailable Unavailable Aloi, M Pavan WELDER OPERATOR Unavailable Unavailable Aloi, M Pavan WELDER OPERATOR Unavailable Unavailable Aloi, M Pavan WELDER OPERATOR Unavailable Unavailable Aloi, M Pavan WELDER OPERATOR Unavailable Unavailable Aloi, M Pavan WELDER OPERATOR Unavailable Unavailable Aloi, M Pavan WELDER OPERATOR Unavailable Unavailable Aloi, M Pavan WELDER OPERATOR Unavailable Unavailable Aloi, M Pavan WELDER OPERATOR Unavailable Unavailable Aloi, M Pavan WELDER OPERATOR Unavailable Unavailable Aloi, M Pavan WELDER OPERATOR Unavailable Unavailable Aloi, M Pavan WELDER OPERATOR Unavailable Unavailable Aloi, M Pavan WELDER OPERATOR Unavailable Unavailable Aloi, M Pavan WELDER OPERATOR Unavailable Unavailable Aloi, M Pavan WELDER OPERATOR Unavailable Unavailable Aloi, M Pavan WELDER OPERATOR Unavailable Unavailable Jd Pelaez MD Unavailable [...] Unavailable Unavailable Jd Pelaez MD Unavailable Unavailable dJ Pelaez MD Unavailable Unavailable Jd Pelaez MD [...] is protected by Article 27-F of the [facility] Public Health law. If you continue you may have access to information: Regarding HIV / AIDS; Provided by facilities licensed or operated by the [facility] Office of Mental Health; or Provided by the [facility] Office for People With Developmental Disabilities. If such information is present, then the following [facility] mandated warning applies: This information has [...] law may result in a fine or care home sentence or both. A general authorization for the release of medical or other information is NOT sufficient authorization for further disc losure. Allergies and Adverse Reactions Type Description Substance Reaction Status Data Source(s ) Drug Class GADOLINIUM DERIVATIVES GADOLINIUM DERIVATIVES [facility] DRUG INGREDI POLLEN EXTRACT [facility] Family History Family Member Name Family Member Gender Family Member Status Date o f Status Description Data Source(s) Unknown Unknown Problem MEDENT ([facility]) Unknown Male Problem MEDENT ([facility]) Encounters Encounter Providers Location Date Indications Data Source(s ) Outpatient Attender: Filemon WATSON 04/21/2020 12:00:00 AM [facility] Outpatient Attender: TERENCE MOORE MD 04/20/2020 12:00:00 AM [facility] Outpatient Attender: EDOUARD NGUYEN MD, PHD 04/16/2020 12:00 :00 AM [facility] [place] [address] [facility] [address] 04/09/2020 12:00:00 AM EST eCW1 (Formerly [facility]) Outpatient Attender: ALEXANDRA BAUGH MD [id number] 12:00:00 AM EST Encounter for palliative care [facility] Encounter for palliative care Outpatient Attender: Kameron Rios [id number] 021 12:00:00 AM EST - 03/31/2020 02:22:16 PM EST Secondary malignant neoplasm of brain [facility] Secondary malignant neoplasm of brain Outpatient Attender: Kameron RiosReferrer: Kameron Rios 03/24/2020 12:00:00 AM EST Malignant neoplasm of unspecified part o f unspecified bronchus or lung [facility] Malignant neoplasm of unspecified part o f unspecified bronchus or lung [facility]: EDOUARD NGUYEN MD, PHDAdmitter: EDOUARD NGUYEN MD, PHDReferrer: TERENCE MOORE MD [id number] 05:38:29 AM EST - 03/17/2020 12:30:00 PM EST Secondary malignant neoplasm of brain [facility] Secondary malignant neoplasm of brain Patient discharged. Outpatient Referrer: EDOUARD NGUYEN MD, PHD 0 03/17/2020 12:00:00 AM EST - 03/17/2020 11:59:00 PM EST [facility] [place] [address] [facility] [address] 03/11/2020 12:00:00 AM EST W1 ([facility]ly [facility]) Outpatient Attender: ALEXANDRA BAUGH MD [id number] 12:00:00 AM EST - 03/09/2020 08:24:46 AM EST Encounter for palliative care [facility] Encounter for palliative care Outpatient Attender: Kameron Rios 03/03/2020 12:00:00 AM [facility] Outpatient Attender: Kameron Rios [id number] 020 12:00:00 AM EST - 02/26/2020 12:12:58 PM EST Malignant neoplasm of unspecified part o f unspecified bronchus or lung [facility] Malignant neoplasm of unspecified part o f unspecified bronchus or lung Outpatient Attender: Kameron Rios 02/26/2020 12:00:00 AM [facility] Outpatient Referrer: Pavan MANUEL 02/24/2020 12: 00:00 AM EST Unspecified fracture of first lumbar vertebra, initial encounter for closed fracture [facility] Unspecified fracture of first lumbar solis tebra, initial encounter for closed fracture Outpatient Attender: TERENCE MOORE MDReferrer: Kameron GrubbsA-OSRONC 02/24/2020 12:00:00 AM EST [facility] follow Outpatient Referrer: TERENCE MOORE MD 02/23/2020 12:00 :00 AM EST Malignant neoplasm of unspecified part of unspecified bronchus or lung [facility] Malignant neoplasm of unspecified part o f unspecified bronchus or lung Outpatient Attender: TERENCE MOORE MD 02/23/2020 12:00:00 AM [facility] Outpatient Attender: TERENCE MOORE MD 02/18/2020 12:00:00 AM [facility] Outpatient Attender: Kameron Rios 02/11/2020 12:00:00 AM [facility] Outpatient Attender: Kameron Rios 02/05/2020 12:00:00 AM [facility] Outpatient Attender: ALEXANDRA BAUGH MD [id number] 12:00:00 AM EST - 02/05/2020 08:30:26 AM EST Encounter for palliative care [facility] Encounter for palliative care Outpatient [address], [facility] [address] 01/28/2020 12:00:00 AM EST W1 ([facility]ly [facility]) Outpatient Referrer: Pavan MANUEL 01/26/2020 12: 00:00 AM EST Other fracture of first lumbar vertebra, initial encounter for closed fracture [facility] Other fracture of first lumbar vertebra, initial encounter for closed fracture Outpatient Attender: Pavan MANUEL [id number] 01/26/2020 12: 00:00 AM EST Unspecified fracture of first lumbar vertebra, initial encounter for closed fracture [facility] Unspecified fracture of first lumbar solis tebra, initial encounter for closed fracture Outpatient Attender: TERENCE GrubbsA-RONCACTR 01/21/2020 05:04:04 PM [facility] Outpatient Attender: Kameron Brown-ONCCACTR 020 12:00:00 AM EST - 01/21/2020 12:16:47 PM EST Malignant neoplasm of unspecified part o f unspecified bronchus or lung [facility] Malignant neoplasm of unspecified part o f unspecified bronchus or lung Outpatient Attender: Kameron Rios 01/21/2020 12:00:00 AM [facility] Outpatient Attender: TERENCE MOORE MDReferrer: Kameron Brown-RONCACTMariah 01/19/2020 12:00:00 AM EST - 01/19/2020 04:11:02 PM EST [facility] follow Outpatient Referrer: TERENCE MOORE MD 01/19/2020 12:00 :00 AM EST Secondary malignant neoplasm of brain [facility] Secondary malignant neoplasm of brain Outpatient Attender: TERENCE MOORE MDReferrer: Kameron Rios [id number] 01/16/2020 12:00:00 AM EST on treat [facility] on treat Outpatient Attender: Kameron Rios 01/15/2020 12:00:00 AM [facility] Outpatient Referrer: Filemon WATSON 020 12:00:00 AM EST - 01/12/2020 11:59:00 PM [facility] Outpatient Attender: Filemon Cooper PAReferrer: Filemon WATSON 01/12/2020 12:00:00 AM EST - 01/13/2020 12:00:00 AM EST Malignant neoplasm of unspecified part of unspecified bronchus or lung [facility] Malignant neoplasm of unspecified part o f unspecified bronchus or lung Outpatient Attender: TERENCE MOORE MDReferrer: Kameron GrubbsA-RONCACTMariah 01/12/2020 12:00:00 AM EST - 01/12/2020 03:32:22 PM EST [facility] follow Outpatient Attender: TERENCE MOORE MDReferrer: Kameron GrubbsA-RONCACTMariah 01/12/2020 12:00:00 AM EST - 01/12/2020 03:34:46 PM EST [facility] follow Outpatient Referrer: Filemon WATSON 01/12/2020 12:00 :00 AM EST Malignant neoplasm of unspecified part of unspecified bronchus or lung [facility] Malignant neoplasm of unspecified part o f unspecified bronchus or lung [place] [address] [address] 01/07/2020 12:00:00 AM EST eCW1 ([facility]ly [facility]) Outpatient Attender: Kameron GrubbsA-ONCCACTR 020 12:00:00 AM EST - 01/02/2020 03:54:15 PM EST Malignant neoplasm of unspecified part o f unspecified bronchus or lung [facility] Malignant neoplasm of unspecified part o f unspecified bronchus or lung Outpatient [address] [facility] [address] 01/01/2020 12:00:00 AM EST eCW1 ([facility]ly [facility]) Outpatient Attender: Kameron Brown-ONCCACTR 020 12:00:00 AM EDT - 12/25/2019 01:28:31 PM EDT Malignant neoplasm of unspecified part o f unspecified bronchus or lung [facility] Malignant neoplasm of unspecified part o f unspecified bronchus or lung [place] [address] [address] 12/05/2019 12:00:00 AM EDT eCW1 ([facility]ly [facility]) Outpatient Attender: Filemon WATSON [id number] 12/04/2019 12:00 :00 AM EDT Malignant neoplasm of unspecified part of unspecified bronchus or lung [facility] Malignant neoplasm of unspecified part o f unspecified bronchus or lung Outpatient Attender: TERENCE MOORE MDReferrer: Kameron Rios [id number] 11/19/2019 12:00:00 AM EDT - 11/19/2019 12:36:16 PM EDT Malignant neoplasm of unspecified part of unspecified bronchus or lung [facility] Malignant neoplasm of unspecified part o f unspecified bronchus or lung Outpatient Attender: Kameron GrubbsA-ONCCACTR 020 12:00:00 AM EDT - 11/13/2019 02:11:25 PM EDT Malignant neoplasm of unspecified part o f unspecified bronchus or lung [facility] Malignant neoplasm of unspecified part o f unspecified bronchus or lung Outpatient Referrer: Kameron Rios 11/13/2019 12:00 :00 AM EDT Malignant neoplasm of unspecified part of unspecified bronchus or lung [facility] Malignant neoplasm of unspecified part o f unspecified bronchus or lung Outpatient Attender: Kameron Brown-ONCCACTR 020 12:00:00 AM EDT - 10/23/2019 02:30:20 PM EDT Malignant neoplasm of unspecified part o f unspecified bronchus or lung [facility] Malignant neoplasm of unspecified part o f unspecified bronchus or lung Outpatient Attender: TERENCE MOORE MD [id number] 10/21/2019 08:57:01 AM EDT [facility] Outpatient Attender: LINSEY GrubbsA-MLTCACTR 0 10/16/2019 09:36:00 AM EDT [facility] Outpatient Attender: CHRIS OJEDA MDReferrer: Kameron wade [id number] 10/15/2019 12:00:00 AM EDT treat [facility] treat Outpatient Attender: ALFRED KAISER MDReferrer: Kameron Rios [id number] 10/08/2019 12:00:00 AM EDT on treat [facility] on treat Outpatient Attender: TERENCE MOORE MD 10/08/2019 12:00:00 AM EDT [facility] Outpatient Attender: Kameron Rios [id number] 020 12:00:00 AM EDT - 10/02/2019 02:15:08 PM EDT Malignant neoplasm of unspecified part o f unspecified bronchus or lung [facility] Malignant neoplasm of unspecified part o f unspecified bronchus or lung Outpatient Referrer: Kameron Rios 09/27/2019 12:00:00 AM EDT [facility] Outpatient Referrer: Kameron Rios 09/26/2019 12:00 :00 AM EDT Malignant (primary) neoplasm, unspecified [facility] Malignant (primary) neoplasm, unspecifie d Outpatient Attender: LINSEY DESAI [id number] 0 09/24/2019 03:18:40 PM EDT [facility] Outpatient Attender: TERENCE MOORE MDReferrer: Kameron Rios [id number] 09/24/2019 12:00:00 AM EDT - 09/24/2019 03:29:36 PM EDT Malignant (primary) neoplasm, unspecified [facility] Malignant (primary) neoplasm, unspecifie d Outpatient Attender: TERENCE MOORE MDReferrer: Kameron Rios [id number] 09/24/2019 12:00:00 AM EDT - 09/24/2019 05:03:20 PM EDT follow up [facility] follow up Outpatient Referrer: KENNY MCDERMOTT MD 09/24/2019 12:0 0:00 AM EDT [facility] Outpatient Attender: TERENCE MOORE MDReferrer: Kameron Rios 07A-RONCACTMariah 09/15/2019 12:00:00 AM EDT - 09/16/2019 09:27:17 AM EDT Malignant (primary) neoplasm, unspecified [facility] Malignant (primary) neoplasm, unspecifie d Outpatient Referrer: IRIS CHANEL . 09/15/2019 12:0 0:00 AM EDT Malignant (primary) neoplasm, unspecified [facility] Malignant (primary) neoplasm, unspecifie d Outpatient Attender: Kameron GrubbsA-ONCCACTR 020 12:00:00 AM EDT - 09/11/2019 10:14:07 AM EDT Malignant (primary) neoplasm, unspecified [facility] Malignant (primary) neoplasm, unspecifie d Outpatient [address] [facility] [address] 09/09/2019 12:00:00 AM EDT eCW1 ([facility]) Outpatient Attender: Kameron Brown-ONCCACTR 020 12:00:00 AM EDT - 08/20/2019 10:11:19 AM EDT Malignant (primary) neoplasm, unspecified [facility] Malignant (primary) neoplasm, unspecifie d Outpatient Referrer: KENNY MCDERMOTT MD 0 12:00:00 AM EDT Malignant (primary) neoplasm, unspecified [facility] Malignant (primary) neoplasm, unspecifie d Outpatient Attender: Kameron Brown-ONCCACTR 020 12:00:00 AM EDT - 07/23/2019 03:43:20 PM EDT Malignant (primary) neoplasm, unspecified [facility] Malignant (primary) neoplasm, unspecifie d Outpatient Attender: ALEXANDRA BAUGH MDReferrer: Arlet MCDERMOTT MD [id number] 07/23/2019 12:00:00 AM EDT - 07/23/2019 01:20:29 PM ED T Encounter for palliative care [facility] Encounter for palliative care Outpatient Attender: TERENCE MOORE MDReferrer: Kameron Brown-RONCACTR 07/16/2019 12:00:00 AM EDT - 07/16/2019 04:34:48 PM EDT Malignant (primary) neoplasm, unspecified [facility] Malignant (primary) neoplasm, unspecifie d Outpatient Referrer: TERENCE MOORE MD 07/14/2019 12:00 :00 AM EDT Malignant (primary) neoplasm, unspecified [facility] Malignant (primary) neoplasm, unspecifie d [facility] [place] [address] [address] 07/14/2019 12:00:00 AM EDT eCW1 ([facility]ly [facility]) [facility] [place] [address] [address] 07/08/2019 12:00:00 AM EDT eCW1 ([facility]) Outpatient 07/04/2019 12:00:00 AM EDT [facility] Outpatient 07/03/2019 12:00:00 AM T [facility] Outpatient Attender: Kameron Brown-ONCCACTMariah 020 12:00:00 AM EDT - 07/03/2019 08:55:10 AM EDT Malignant (primary) neoplasm, unspecified [facility] Malignant (primary) neoplasm, unspecifie d Outpatient Attender: TERENCE MOORE MDReferrer: Kameron Brown-OSJO ANN 06/17/2019 12:00:00 AM EDT Malignant (primary) neoplasm, unspecified [facility] Malignant (primary) neoplasm, unspecifie d Outpatient Referrer: TERENCE MOORE MD 06/16/2019 12:00 :00 AM EDT Malignant (primary) neoplasm, unspecified [facility] Malignant (primary) neoplasm, unspecifie d Outpatient 06/13/2019 12:00:00 AM T [facility] Outpatient 06/12/2019 05:57:00 AM EDT [facility] Outpatient 06/12/2019 12:00:00 AM T [facility] Outpatient Attender: Kameron Brown-ONCCACTR 020 12:00:00 AM EDT - 06/11/2019 04:16:22 PM EDT Malignant (primary) neoplasm, unspecified [facility] Malignant (primary) neoplasm, unspecifie d Outpatient Attender: TERENCE Brown-OSUGOC 05/27/2019 12:00 :00 AM EDT Malignant (primary) neoplasm, unspecified [facility] Malignant (primary) neoplasm, unspecifie d [facility] [place] [facility] [address] 05/27/2019 12:00:00 AM EDT eCW1 ([facility]) Outpatient 05/25/2019 10:17:00 AM EDT [facility] [address] [facility] [address] 05/23/2019 12:00:00 AM EDT eCW1 ([facility]ly [facility]) Outpatient Attender: Spike Pelaez MD [id number] 05/21/2019 06:08:01 PM EDT [facility] Outpatient Referrer: Kameron Rios 05/19/2019 12:00:00 AM [facility] Outpatient Referrer: Kameron Rios 05/19/2019 12:00:00 AM [facility] Inpatient Attender: Kameron Chacon tter: Kameron RiosReferrer: Kameorn Rios 05/17/2019 12:00:00 AM EDT superior vena cava syndrome, lung CA, needs chemo [facility] superior vena cava syndrome, lung CA, ne eds chemo Inpatient Attender: Kameron Chacon tter: Kameron RiosReferrer: KAELA TSAI [id number] 05/16/2019 12:00:00 AM EDT - 05/20/2019 03:53:00 PM EDT Malignant (primary) neoplasm, unspecified [facility] Malignant (primary) neoplasm, unspecifie d Patient discharged. [facility] [address] [facility] [place] [address] 04/08/2019 12:00:00 AM EST eCW1 ([facility]) [facility] [place] [facility] [place] [address] 02/28/2019 12:00:00 AM EST eCW1 ([facility]) Medications Medication Brand Name Start Date Product Form Dose Route Admi nistrative Instructions Pharmacy Instructions Status Indications Reaction Description Data Source(s) Magnesium Oxide 400 MG Oral Tablet Magnesium Oxide (MA G-OX) tablet 400 mg Magnesium Oxide (MAG-OX) tablet 400 mg 03/31/2020 02:15:00 PM EST 4 00 mg Oral completed 400 mg, Oral, Once, Sun at 1415, For 1 dose [facility] Medication administered onsite potassium chloride (K-DUR) dissolvable tablet 20 mEq 93511-4 [id number] 03/31/2020 02:15:00 PM EST 20 meq Oral completed 20 mEq, Oral, Once, Sun03/31/20 at 1415, For 1 dose
May be dissolved in water for patients with a G-Tube or unable to swallow. If concern for clogging G-Tube, may contact Pharmacy to switch formulation to a powder packet.
[facility] Medication administered onsite etoposide (VEPESID) 140 mg [...] for hypotension.Infuse through a 0.22 micron filter.
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
Give prior to chemotherapy.
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
Give prior to chemotherapy
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
Give prior to chemotherapy
[facility] Small cell lung cancer Secondary malignant neoplasm [...] 30 minutes before chemotherapy over 20-30 minutes.
[facility] Small cell lung cancer Secondary malignant neoplasm [...] urine parameters are not met, contact .
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 Medication administered onsite Metoprolol Tartrate 50 MG Oral Tablet metoprolol (LOPR ESSOR) tablet 50 mg metoprolol (LOPRESSOR) tablet 50 mg 03/31/2020 08:45:00 AM EST 50 mg Oral active 50 mg, Oral, Once, Sun03/31/20 at 0845, For 1 dose [facility] Medication administered onsite Ondansetron 8 MG Oral Tablet Ondansetron HCl 8 MG Oral Tablet (ZOFRAN) Ondansetron HCl 8 MG Oral Tablet (ZOFRAN) 03/31/2020 12:00:00 AM EST 8 mg Oral active Small cell lung cancerSecondary malignant neoplasm of brain and spinal cord Take 1 tablet by mouth every 8 (eight) hours as needed for Nausea or Vomiting [facility] Small cell lung cancer Secondary malignant neoplasm [...] chemo) 30 minutes before chemo pill etoposide [facility] Etoposide 50 MG Oral Capsule Etoposide 50 MG Oral Caps ule (VEPESID) Etoposide 50 MG Oral Capsule (VEPESID) 03/31/2020 12:00:00 AM EST 150 mg Oral active Take 3 capsules by mouth Two Times Daily for 2 daysTake on and 04/02 (days 2 and 3 of chemo) [facility] Magnesium Oxide 400 MG Oral Capsule Magnesium Oxide 400 MG O ral Capsule 03/31/2020 12:00:00 AM EST 400 mg Oral active Take 400 mg by mouth daily [facility] 0.5 mg 03/10/2020 12:00:00 AM EST tablet [...] for Anxiety, Max Daily Dose: 1.5 mg [facility] gadobutrol (GADAVIST) contrast injection 7 mL [id number] 10:00:00 AM EST 0.1 mL/kg Intravenous completed 7 mL (ro unded from 7.35 mL = 0.1 mL/kg 73.5 kg), Intravenous, 1 TIME IMAGING, 02/23/20 at 1000, For 1 dose, Imaging Protocol
Do not mix or administer in the same IV line with other medications.
[facility] Medication administered onsite Lorazepam 0.5 MG Oral Tablet LORazepam 0.5 MG Oral Tab let (Ativan) LORazepam 0.5 MG Oral Tablet (Ativan) 02/04/2020 12:00:00 AM EST 0.5 mg Oral active Take 1 tablet by mouth every 6 (six) hours as needed for Anxiety (or nausea) for up to 10 days, Max Daily Dose: 2 mg [facility] 0.5 mg 02/04/2020 12:00:00 AM EST tablet 30 TAKE ONE TABLET BY MOUTH EVERY 6 HOURS NEEDED FOR ANXIETY OR NAUSEA * MAXIMUM DAILY DOSE = 4 TAKE ONE TABLET BY MOUTH EVERY 6 HOURS NEEDED FOR ANXIETY OR NAUSEA * MAXIMUM DAILY DOSE = 4 SOLD: 02/06/2020 [facility] 3.5-10,000-1 mg/mL-unit/mL-% 01/28/2020 12:00:00 AM EST [...] OF BREATH SOLD: 01/29/2020 [facility] Cortisporin 3.5-75699-3 UNK 01/28/2020 12:00:00 AM EST 4.0 {drops_into_affected_ear} active Cortis porin 3.5-86171-1 eCW1 ([facility]) 200 ACTUAT Albuterol 0.09 MG/ACTUAT Mete red Dose Inhaler [Ventolin] Ventolin HFA 108 (90 Base) MCG/ACT Ventolin HFA 108 (90 Base) MCG/ACT 01/28/2020 12:00:00 AM EST 1.0 {puff_as_needed} active Toro tolin HFA 108 (90 Base) MCG/ACT eCW1 ([facility]) 200 ACTUAT Albuterol 0.09 MG/ACTUAT Mete red Dose Inhaler [Ventolin] Ventolin HFA 108 (90 Base) MCG/ACT Ventolin HFA 108 (90 Base) MCG/ACT 01/28/2020 12:00:00 AM EST 1.0 {puff_as_needed} active Toro tolin HFA 108 (90 Base) MCG/ACT eCW1 ([facility]) Cortisporin 3.5-83176-4 UNK 01/28/2020 12:00:00 AM EST 4.0 {drops_into_affected_ear} suspended Oniel isporin 3.5-94120-7 eCW1 ([facility]) 200 ACTUAT Albuterol 0.09 MG/ACTUAT Mete red Dose Inhaler [Ventolin] Ventolin HFA 108 (90 Base) MCG/ACT Ventolin HFA 108 (90 Base) MCG/ACT 01/28/2020 12:00:00 AM EST 1.0 {puff_as_needed} active Toro tolin HFA 108 (90 Base) MCG/ACT eCW1 ([facility]) Cortisporin 3.5-18323-1 UNK 01/28/2020 12:00:00 AM EST 4.0 {drops_into_affected_ear} suspended Oniel isporin 3.5-12632-9 eCW1 ([facility]) gadobutrol (GADAVIST) contrast injection 7.5 mL [id number] 01/19/2020 02:15:00 PM EST 0.1 mL/kg Intravenous completed 7.5 mL (rounded from 7.76 mL = 0.1 mL/kg 77.6 kg), Intravenous, 1 TIME IMAGING, Sun01/19/20 at 1415, For 1 dose, Imaging Protocol
Do not mix or administer in the same IV line with other medi cations.
[facility] Medication administered onsite iohexol (OMNIPAQUE) 300 MG/ML contrast injection 100 mL [id number] 01/12/2020 10:45:00 AM EST 100 mL Intravenous completed 100 mL, Intravenous, 1 TIME IMAGING, Sun01/12/20 at 1045, For 1 dose, Imaging Protocol [facility] Medication administered onsite iohexol (OMNIPAQUE) 240 MG/ML contrast 20 mL [id number] 10:15:00 AM EST 20 mL Oral completed 20 mL, Oral, 1 TIME IMAGING, Sun01/12/20 at 1015, For 1 dose, Imaging Protocol
Dilute before administering
[facility] Medication administered onsite iohexol (OMNIPAQUE) 240 MG/ML contrast 20 mL [id number] 10:02:51 AM EST 20 mL Oral active 20 mL, Oral, IMG once PRN, Contrast, Starting Sun01/12/20 at 1002, For 1 day, Imaging Protocol
Dilute before administering
[facility] Medication administered onsite TC-99M medronate (Tc-MDP) [address]-1 01/12/2020 09:45:00 AM EST Intravenous completed Intravenous, Once, Sun01/12/20 at 0945, For 1 dose, Imaging Protocol [facility] Medication administered onsite 5-325 mg 01/12/2020 12:00:00 [...] for Pain, Max Daily Dose: 6 tablets [facility] 300 mg 01/08/2020 12:00:00 AM EST tablet [...] EST active [facility] ([facility] atorvastatin 20 MG Oral Tablet Atorvastatin Calcium 01/08/2020 1 2:00:00 AM EST active MEDENT ( [facility]) Lisinopril 10 MG Oral Tablet Lisinopril 01/08/2020 12:00:00 AM EST ORAL active [facility] Aspirin 81 MG Delayed Release Oral Tablet Aspirin 81 2019 12:00:00 AM EST active MEDENT ( [facility]) Acetaminophen 325 MG / Hydrocodone Bitartrate 5 MG Ora l Tablet Hydrocodone-Acetaminophen 01/08/2020 12:00:00 AM EST ORAL active MEDENT ([facility]) Metformin hydrochloride 1000 MG Oral Tablet Metformin HCL 01/08/2020 12:00:00 AM EST active [facility] Allopurinol 300 MG Oral Tablet Allopurinol 01/08/2020 12:00:00 AM EST active [facility]ENT ([facility]) cefdinir 300 MG Oral Capsule Cefdinir 01/08/2020 12:00:00 AM EST active MEDENT ([facility]) Glucosamine Chondroitin 1500 Complex 01/08/2020 12:00:00 AM EST active MEDENT ([facility]) Ascorbic Acid 60 MG / Beta Carotene 5000 UNT / Copper Sulfate 40 MG / dl-alpha tocopheryl acetate 30 UNT / Sodium Selenite 0.04 MG / Zinc Oxide 40 MG Oral Tablet Multi Vitamin And Minerals 01/08/2020 12:00:00 AM EST active MEDENT ([facility]) Levothyroxine Sodium 0.125 MG Oral Tablet Levothyroxine Sodi um 01/08/2020 12:00:00 AM EST active M EDENT ([facility]) Tecentriq Tecentriq 01/08/2020 12:00:00 AM EST act james MEDENT ([facility]) 300 mg 01/08/2020 12:00:00 AM EST tablet [...] TWICE A DAY WITH MEALS SOLD: 03/13/2020 [facility] 5-325 mg 01/07/2020 12:00:00 AM EST [...] BY MOUTH TWICE A DAY SOLD: 01/07/2020 [facility] atezolizumab (TECENTRIQ) 1,200 mg in sod ium chloride 0.9 % 250 mL chemo infusion 01/02/2020 02:15:00 PM EST 1200 mg Intravenous completed Small cell lung cancer 1,200 mg, Intravenous, Admin ister over 30 Minutes, Once, Sun01/02/20 at 1415, For 1 dose
First dose to be administered over 60 minutes.All subsequent doses administered over 30 minutes.Only compatible with NaCl 0.9 %.
[facility] Small cell lung cancer Medication administered onsite [...] active Clobetasol Propionate E 0.05 % eCW1 ([facility]) atorvastatin 20 MG Oral Tablet Atorvastatin Calcium 20 MG Atorvastatin Calcium 20 MG 01/01/2020 12:00:00 AM EST 1.0 {tablet} activ e Atorvastatin Calcium 20 MG eCW1 ([facility]) atorvastatin 20 MG Oral Tablet Atorvastatin Calcium 20 MG Atorvastatin Calcium 20 MG 01/01/2020 12:00:00 AM EST 1.0 {tablet} activ e Atorvastatin Calcium 20 MG eCW1 ([facility]) Clobetasol Propionate E 0.05 % Clobetasol Propionate E 0.05 % 01/01/2020 12:00:00 AM EST 1.0 {application} active Clobetasol Propionate E 0.05 % eCW1 ([facility]) Clobetasol Propionate E 0.05 % Clobetasol Propionate E 0.05 % 01/01/2020 12:00:00 AM EST 1.0 {application} active Clobetasol Propionate E 0.05 % eCW1 ([facility]) Clobetasol Propionate E 0.05 % Clobetasol Propionate E 0.05 % 01/01/2020 12:00:00 AM EST 1.0 {application} active Clobetasol Propionate E 0.05 % eCW1 ([facility]) atorvastatin 20 MG Oral Tablet Atorvastatin Calcium 20 MG Atorvastatin Calcium 20 MG 01/01/2020 12:00:00 AM EST 1.0 {tablet} activ e Atorvastatin Calcium 20 MG eCW1 ([facility]) atorvastatin 20 MG Oral Tablet Atorvastatin Calcium 20 MG Atorvastatin Calcium 20 MG 01/01/2020 12:00:00 AM EST 1.0 {tablet} activ e Atorvastatin Calcium 20 MG eCW1 ([facility]) atorvastatin 20 MG Oral Tablet Atorvastatin Calcium 20 MG Atorvastatin Calcium 20 MG 01/01/2020 12:00:00 AM EST 1.0 {tablet} activ e Atorvastatin Calcium 20 MG eCW1 ([facility]) Clobetasol Propionate E 0.05 % Clobetasol Propionate E 0.05 % 01/01/2020 12:00:00 AM EST 1.0 {application} active Clobetasol Propionate E 0.05 % eCW1 ([facility]) 125 mcg 12/10/2019 12:00:00 AM EDT tablet [...] 30 minutes.Only compatible with NaCl 0.9 %.
[facility] Small cell lung cancer Medication administered onsite Levothyroxine Sodium 0.125 MG Oral Table t Levothyroxine Sodium 125 MCG Oral Tablet (SYNTHROID) Levothyroxine Sodium 125 MCG Oral Tablet (SYNTHROID) 12/04/2019 12:00:00 AM EDT 125 ug Oral completed Take 1 tablet by mouth Daily Take with plain water 1/2 hr prior to other meds or food or beverages [facility] Levothyroxine Sodium 0.125 MG Oral Table t Levothyroxine Sodium 125 MCG Oral Tablet (SYNTHROID) Levothyroxine Sodium 125 MCG Oral Tablet (SYNTHROID) 11/25/2019 12:00:00 AM EDT 125 ug Oral aborted Take 1 tablet by mouth Daily Take with plain water 1/2 hr prior to other meds or food or beverages [facility] Levothyroxine Sodium 0.05 MG Oral Tablet Levothyroxine Sodium 50 MCG Oral Tablet (SYNTHROID) Levothyroxine Sodium 50 MCG Oral Tablet (SYNTHROID) 12:00:00 AM EDT 100 ug Oral active Take 2 t ablets by mouth Daily [facility] Levothyroxine Sodium 0.025 MG Oral Table t Levothyroxine Sodium 25 MCG Oral Tablet (SYNTHROID) Levothyroxine Sodium 25 MCG Oral Tablet (SYNTHROID) 11/13/2019 12:00:00 AM EDT 25 ug Oral active Take 1 tablet by mouth Daily [facility] Memantine hydrochloride 10 MG Oral Tablet MEMANTINE [...] Intravenous, Admin ister over 30 Minutes, Once, [facility] 10/23/19 at 1315, For 1 dose
First dose to be administered over 60 minutes.All subsequent doses administered over 30 minutes.Only compatible with NaCl 0.9 %.
[facility] Small cell lung cancer Medication administered onsite Dexamethasone 2 MG Oral Tablet Dexamethasone 2 MG Oral Tablet (DECADRON) Dexamethasone 2 MG Oral Tablet (DECADRON) 10/15/2019 12:00:00 AM EDT 2 mg Oral aborted Take 1 tablet by mouth Two times daily with meals Take two times a day for 3 days, then once a day for 3 days. [facility] Dexamethasone 2 MG Oral Tablet Dexamethasone 2 MG Oral Tablet (DECADRON) Dexamethasone 2 MG Oral Tablet (DECADRON) 10/15/2019 12:00:00 AM EDT 2 mg Oral aborted Take 1 tablet by mouth See Admin Instructions Take one pill two times a day for 3 days, then one pill once a day for 3 days. [facility] 50 mg 10/10/2019 12:00:00 AM EDT tablet 60 TAKE ONE TABLET BY MOUTH TWICE A DAY TAKE ONE TABLET BY MOUTH TWICE A DAY SOLD: 03/13/2020 [facility] 50 mg 10/10/2019 12:00:00 AM EDT tablet [...] TABLET BY MOUTH EVERY DAY SOLD: 10/10/2019 [facility] 5-10 mg 09/29/2019 12:00:00 AM EDT [...] WEEK, THEN 10MG TWICE DAILY SOLD: 09/30/2019 [facility] Memantine HCl 28 x 5 MG & 21 x 10 MG Oral Tablet (NAME NDA TITRATION PACK) [id number] 09/16/2019 12:00:00 AM EDT abort ed 5 mg/day for =1 week; 5 mg twice daily for =1 week; 15 mg/day given in 5 mg and 10 mg doses for =1 week; then 10 mg twice daily [facility] Memantine hydrochloride 10 MG Oral Table t Memantine HCl 10 MG Oral Tablet (NAMENDA) Memantine HCl 10 MG Oral Tablet (NAMENDA) 09/16/2019 12:00:0 0 AM EDT 10 mg Oral active Take 1 tablet by mouth Two Times Daily [facility] gadobutrol (GADAVIST) contrast injection 7.5 mL [id number] 09/15/2019 04:00:00 PM EDT 0.1 mL/kg Intravenous completed 7.5 mL (rounded from 7.99 mL = 0.1 mL/kg 79.9 kg), Intravenous, 1 TIME IMAGING, 09/15/19 at 1600, For 1 dose, Imaging Protocol
Do not mix or administer in the same IV line with other medic ations.
[facility] Medication administered onsite atezolizumab (TECENTRIQ) 1,200 mg in sod ium chloride 0.9 % 250 mL chemo infusion 09/11/2019 08:45:00 AM EDT 1200 mg Intravenous completed Small cell carcinoma 1,200 mg, Intravenous, Admin ister over 30 Minutes, Once, Judith 09/11/19 at 0845, For 1 dose
First dose to be administered over 60 minutes.All subsequent doses administered over 30 minutes.Only compatible with NaCl 0.9 %.
[facility] Small cell carcinoma Medication administered onsite 10 [...] aborted Take 1 tablet by mouth Daily [facility] atezolizumab (TECENTRIQ) 1,200 mg in sod ium chloride 0.9 % 250 mL chemo infusion 08/20/2019 09:15:00 AM EDT 1200 mg Intravenous completed Small cell carcinoma 1,200 mg, Intravenous, Admin ister over 30 Minutes, Once, [facility] 08/20/19 at 0915, For 1 dose
First dose to be administered over 60 minutes.All subsequent doses administered over 30 minutes.Only compatible with NaCl 0.9 %.
[facility] Small cell carcinoma Medication administered onsite iohexol (OMNIPAQUE) 300 MG/ML contrast injection 100 mL [id number] 08/14/2019 03:15:00 PM EDT 100 mL Intravenous completed 100 mL, Intravenous, 1 TIME IMAGING, [facility] 08/14/19 at 1515, For 1 dose, Imaging Protocol [facility] Medication administered onsite iohexol (OMNIPAQUE) 240 MG/ML contrast 20 mL [id number] 12:45:00 PM EDT 20 mL Oral completed 20 mL, Oral, 1 TIME IMAGING, [facility] 08/14/19 at 1245, For 1 dose, Imaging Protocol
Dilute before administering
[facility] Medication administered onsite 50 mg 08/12/2019 12:00:00 [...] and 3 of chemo (07/23 and 07/24) [facility] Dexamethasone 4 MG Oral Tablet Dexamethasone 4 MG Oral Tablet (DECADRON) Dexamethasone 4 MG Oral Tablet (DECADRON) 07/24/2019 12:00:00 AM EDT 8 mg Oral active Take 2 tablets by mouth daily with breakfast for 2 daysDays 2 and 3, take 30 minutes prior to chemo in the morning [facility] Ondansetron 8 MG Oral Tablet Ondansetron HCl 8 MG Oral Tablet (ZOFRAN) Ondansetron HCl 8 MG Oral Tablet (ZOFRAN) 07/24/2019 12:00:00 AM EDT 8 mg Oral active Take 1 tablet by mouth Two Times Daily for 2 daysDays 2 and 3, take 30 minute before chemo morning and night [facility] sodium chloride 0.9 % 500 mL with potass ium chloride 10 mEq, magnesium sulfate 8 mEq infusion 07/23/2019 01:45:00 PM EDT Intravenous completed Small cell carcinoma at 500 mL/hr, Intravenous, O nce, Sun07/23/19 at 1345, For 1 dose
Post-cisplatin. Remove KCl from IV bag if K+>4.8 and/or remove Mag from bag if Mag > 2.2
[facility] Small cell carcinoma Medication administered onsite etoposide [...] for hypotension.Infuse through a 0.22 micron filter.
[facility] Small cell carcinoma Medication administered onsite CISplatin (PLATINOL) 157 mg in sodium chloride 3 % 407 mL ch emo infusion 07/23/2019 12:00:00 PM EDT 80 mg/m2 Intravenous c ompleted Small cell carcinoma 157 mg (rounded from 156.8 m g = 80 mg/m2 1.96 m2 Treatment plan recorded BSA), Intravenous, Administer over 60 Minutes, Once, Sun07/23/19 at 1200, For 1 dose [facility] Small cell carcinoma Medication administered onsite Magnesium Oxide 400 MG Oral Tablet Magnesium Oxide (MA G-OX) tablet 400 mg Magnesium Oxide (MAG-OX) tablet 400 mg 07/23/2019 11:00:00 AM EDT 4 00 mg Oral completed 400 mg, Oral, Once, Sun at 1115, For 1 dose [facility] Medication administered onsite atezolizumab (TECENTRIQ) 1,200 mg in sod ium chloride 0.9 % 250 mL chemo infusion 07/23/2019 10:15:00 AM EDT 1200 mg Intravenous completed Small cell carcinoma 1,200 mg, Intravenous, Admin ister over 30 Minutes, Once, Sun07/23/19 at 1015, For 1 dose
Only compatible with NaCl 0.9 %.
[facility] Small cell carcinoma Medication administered onsite Lorazepam 0.5 MG Oral Tablet LORazepam (ATIVAN) tablet 0.5 mg LORazepam (ATIVAN) tablet 0.5 mg 07/23/2019 09:45:00 AM EDT 0.5 mg Oral completed Small cell carcinoma 0.5 mg, Oral, Once, Wed 07/22 at 0945, For 1 dose
Give prior to chemotherapy
[facility] Small cell carcinoma Medication administered onsite fosaprepitant dimeglumine (EMEND) 150 mg in sodium chloride 0.9 % 150 mL infusion 07/23/2019 09:45:00 AM EDT 150 mg Intravenous completed Small cell carcinoma 150 mg, Intravenous, Once, W ed 07/23/19 at 0945, For 1 dose
Give 30 minutes before chemotherapy over 20-30 minutes.
[facility] Small cell carcinoma Medication administered onsite sodium chloride 0.9 % 1,000 mL bolus 07/23/2019 09:45:00 A M EDT Intravenous completed Small cell carcinoma Int ravenous, at 500 mL/hr, Once, Sun07/23/19 at 0945, For 1 dose
Infuse at 500 mL/hr until urine parameters are met.If after 1000 mL infused and urine parameters are not met, contact MD.
[facility] Small cell carcinoma Medication administered onsite Dexamethasone 4 MG Oral Tablet dexamethasone (DECADRON ) tablet 8 mg dexamethasone (DECADRON) tablet 8 mg 07/23/2019 09:45:00 AM EDT 8 mg Oral completed Small cell carcinoma 8 mg, Oral, Once, W ed 07/23/19 at 0945, For 1 dose
Give prior to chemotherapy.
[facility] Small cell carcinoma Medication administered onsite Ondansetron 8 MG Oral Tablet ondansetron (ZOFRAN) tabl et 16 mg ondansetron (ZOFRAN) tablet 16 mg 07/23/2019 09:45:00 AM EDT 16 mg Oral completed Small cell carcinoma 16 mg, Oral, Once, Sun at 0945, For 1 dose
Give prior to chemotherapy
[facility] Small cell carcinoma Medication administered onsite Loratadine 10 MG Oral Tablet Loratadine 10 MG Oral Tab let (CLARITIN) Loratadine 10 MG Oral Tablet (CLARITIN) 07/23/2019 12:00:00 AM EDT 10 mg Oral aborted Take 1 tablet by mouth daily [facility] gadobutrol (GADAVIST) contrast injection 8 mL [id number] 12:45:00 PM EDT 0.1 mL/kg Intravenous completed 8 mL (ro unded from 8.37 mL = 0.1 mL/kg 83.7 kg), Intravenous, 1 TIME IMAGING, 07/14/19 at 1245, For 1 dose, Imaging Protocol
Do not mix or administer in the same IV line with other medicat ions.
[facility] Medication administered onsite 1,000 mg 07/14/2019 12:00:00 AM EDT tablet 60 TAKE ONE TABLET BY MOUTH TWICE A DAY WITH A MEAL TAKE ONE TABLET BY MOUTH TWICE A DAY WITH A MEAL SOLD: 10/10/2019 [facility] Metformin hydrochloride 1000 MG Oral Tablet 1,000 [...] 1.0 {tablet} active Allopurinol 300 MG eCW1 ([facility]) Allopurinol 300 MG Oral Tablet Allopurinol 300 MG 07/09/2019 12:00: 00 AM EDT 1.0 {tablet} active Allopurinol 300 MG eCW1 ([facility]) Allopurinol 300 MG Oral Tablet Allopurinol 300 MG 07/09/2019 12:00: 00 AM EDT 1.0 {tablet} active Allopurinol 300 MG eCW1 ([facility]) Allopurinol 300 MG Oral Tablet Allopurinol 300 MG 07/09/2019 12:00: 00 AM EDT active 1 tablet eCW1 ([facility]) Allopurinol 300 MG Oral Tablet Allopurinol 300 MG 07/09/2019 12:00: 00 AM EDT 1.0 {tablet} active Allopurinol 300 MG eCW1 ([facility]) Allopurinol 300 MG Oral Tablet Allopurinol 300 MG 07/09/2019 12:00: 00 AM EDT 1.0 {tablet} active Allopurinol 300 MG eCW1 ([facility]) Allopurinol 300 MG Oral Tablet Allopurinol 300 MG 07/09/2019 12:00: 00 AM EDT 1.0 {tablet} active Allopurinol 300 MG eCW1 ([facility]) Allopurinol 300 MG Oral Tablet Allopurinol 300 MG 07/09/2019 12:00: 00 AM EDT 1.0 {tablet} active Allopurinol 300 MG eCW1 ([facility]) Levothyroxine Sodium 0.075 MG Oral Table t Levothyroxine Sodium 75 MCG Oral Tablet (SYNTHROID) Levothyroxine Sodium 75 MCG Oral Tablet (SYNTHROID) 07/08/2019 12:00:00 AM EDT [facility] Etoposide 50 MG Oral Capsule Etoposide 50 MG Oral Caps ule (VEPESID) Etoposide 50 MG Oral Capsule (VEPESID) 07/03/2019 12:00:00 AM EDT 150 mg Oral active Take 3 capsules by mouth Two Times Daily for 2 daysTake on 07/02 and 07/03 (days 2 and 3 of chemo) [facility] Dexamethasone 4 MG Oral Tablet Dexamethasone 4 MG Oral Tablet (DECADRON) Dexamethasone 4 MG Oral Tablet (DECADRON) 07/03/2019 12:00:00 AM EDT 8 mg Oral active Take 2 tablets by mouth daily with breakfast for 2 daysTake on 07/02 and 07/03 30 minutes before chemo pills [facility] sodium chloride 0.9 % 500 mL with potass ium chloride 10 mEq, magnesium sulfate 8 mEq infusion 07/02/2019 03:15:00 PM EDT Intravenous completed Small cell carcinoma at 500 mL/hr, Intravenous, O nce, Sun07/02/19 at 1515, For 1 dose
Post-cisplatin. Remove KCl from IV bag if K+>4.8 and/or remove Mag from bag if Mag > 2.2
[facility] Small cell carcinoma Medication administered onsite etoposide [...] for hypotension.Infuse through a 0.22 micron filter.
[facility] Small cell carcinoma Medication administered onsite CISplatin [...]
Do not refrigerate. Protect from l ight.
[facility] Small cell carcinoma Medication administered onsite atezolizumab (TECENTRIQ) 1,200 mg in sod ium chloride 0.9 % 250 mL chemo infusion 07/02/2019 11:30:00 AM EDT 1200 mg Intravenous completed Small cell carcinoma 1,200 mg, Intravenous, Admin ister over 60 Minutes, Once, 07/02/19 at 1130, For 1 dose
Only compatible with NaCl 0.9 %.
[facility] Small cell carcinoma Medication administered onsite sodium chloride 0.9 % 1,000 mL bolus 07/02/2019 11:15:00 A M EDT Intravenous completed Small cell carcinoma Int ravenous, at 500 mL/hr, Once, 07/02/19 at 1115, For 1 dose
Infuse at 500 mL/hr until urine parameters are met.If after 1000 mL infused and urine parameters are not met, contact MD.
[facility] Small cell carcinoma Medication administered onsite Dexamethasone 4 MG Oral Tablet dexamethasone (DECADRON ) tablet 8 mg dexamethasone (DECADRON) tablet 8 mg 07/02/2019 11:15:00 AM EDT 8 mg Oral completed Small cell carcinoma 8 mg, Oral, Once, W ed 07/02/19 at 1115, For 1 dose
Give prior to chemotherapy.
[facility] Small cell carcinoma Medication administered onsite Ondansetron 8 MG Oral Tablet ondansetron (ZOFRAN) tabl et 16 mg ondansetron (ZOFRAN) tablet 16 mg 07/02/2019 11:15:00 AM EDT 16 mg Oral completed Small cell carcinoma 16 mg, Oral, Once, Wed 0 at 1115, For 1 dose
Give prior to chemotherapy
[facility] Small cell carcinoma Medication administered onsite Lorazepam 0.5 MG Oral Tablet LORazepam (ATIVAN) tablet 0.5 mg LORazepam (ATIVAN) tablet 0.5 mg 07/02/2019 11:15:00 AM EDT 0.5 mg Oral completed Small cell carcinoma 0.5 mg, Oral, Once, Wed at 1115, For 1 dose
Give prior to chemotherapy
[facility] Small cell carcinoma Medication administered onsite fosaprepitant dimeglumine (EMEND) 150 mg in sodium chloride 0.9 % 150 mL infusion 07/02/2019 11:15:00 AM EDT 150 mg Intravenous completed Small cell carcinoma 150 mg, Intravenous, Once, W ed 07/02/19 at 1115, For 1 dose
Give 30 minutes before chemotherapy over 20-30 minutes.
[facility] Small cell carcinoma Medication administered onsite Prochlorperazine 10 MG Oral Tablet Proch lorperazine Maleate 10 MG Oral Tablet (COMPAZINE) Prochlorperazine Maleate 10 MG Oral Tablet (COMPAZINE) 07/02/2019 12:00:00 AM EDT 10 mg Oral active Take 1 tablet by mouth every 6 (six) hours as needed for up to 7 days [facility] Ondansetron 4 MG Oral Tablet Ondansetron HCl 4 MG Oral Tablet (Zofran) Ondansetron HCl 4 MG Oral Tablet (Zofran) 07/02/2019 12:00:00 AM EDT 8 mg Oral active Take 2 tablets by mouth every 8 (eight) hours as needed for Nausea [facility] 10 mg 06/13/2019 12:00:00 AM EDT tablet [...] chemo) 30 minutes before chemo pill etoposide [facility] sodium chloride 0.9 % bolus 500 mL [id number] 06/11/2019 02:15:00 PM EDT 500 mL Intravenous completed Small cell carcinoma 500 mL, Intravenous, Once, Sun06/11/19 at 1415, For 1 dose
Give after Cisplatin. Remove KCL from IV bag if K+ > 4.8 and/or remove Mag from bag if Mag > 2.2.
[facility] Small cell carcinoma Medication administered onsite Magnesium Oxide 400 MG Oral Tablet Magnesium Oxide (MA G-OX) tablet 400 mg Magnesium Oxide (MAG-OX) tablet 400 mg 06/11/2019 01:15:00 PM EDT 4 00 mg Oral completed 400 mg, Oral, Once, Wed at 1315, For 1 dose [facility] Medication administered onsite etoposide (VEPESID) 156 mg [...] for hypotension.Infuse through a 0.22 micron filter.
[facility] Small cell carcinoma Medication administered onsite CISplatin [...] dose
Do not refrigerate. Protect from light.
[facility] Small cell carcinoma Medication administered onsite sodium chloride 0.9 % 1,000 mL bolus 06/11/2019 10:15:00 A M EDT Intravenous completed Small cell carcinoma Int ravenous, at 500 mL/hr, Once, 06/11/19 at 1015, For 1 dose
Infuse at 500 mL/hr until urine parameters are met.If after 1000 mL infused and urine parameters are not met, contact .
[facility] Small cell carcinoma Medication administered onsite fosaprepitant dimeglumine (EMEND) 150 mg in sodium chloride 0.9 % 150 mL infusion 06/11/2019 10:15:00 AM EDT 150 mg Intravenous completed Small cell carcinoma 150 mg, Intravenous, Once, W ed 06/11/19 at 1015, For 1 dose
Give 30 minutes before chemotherapy over 20-30 minutes.
[facility] Small cell carcinoma Medication administered onsite Lorazepam 0.5 MG Oral Tablet LORazepam (ATIVAN) tablet 0.5 mg LORazepam (ATIVAN) tablet 0.5 mg 06/11/2019 10:15:00 AM EDT 0.5 mg Oral completed Small cell carcinoma 0.5 mg, Oral, Once, Wed 06/10 at 1015, For 1 dose
Give prior to chemotherapy
[facility] Small cell carcinoma Medication administered onsite Ondansetron 8 MG Oral Tablet ondansetron (ZOFRAN) tabl et 16 mg ondansetron (ZOFRAN) tablet 16 mg 06/11/2019 10:15:00 AM EDT 16 mg Oral completed Small cell carcinoma 16 mg, Oral, Once, Wed at 1015, For 1 dose
Give prior to chemotherapy
[facility] Small cell carcinoma Medication administered onsite Dexamethasone 4 MG Oral Tablet dexamethasone (DECADRON ) tablet 8 mg dexamethasone (DECADRON) tablet 8 mg 06/11/2019 10:15:00 AM EDT 8 mg Oral completed Small cell carcinoma 8 mg, Oral, Once, W ed 06/11/19 at 1015, For 1 dose
Give prior to chemotherapy.
[facility] Small cell carcinoma Medication administered onsite Ondansetron 4 MG Oral Tablet Ondansetron HCl 4 MG Oral Tablet (Zofran) Ondansetron HCl 4 MG Oral Tablet (Zofran) 06/11/2019 12:00:00 AM EDT 4 mg Oral aborted Take 1 tablet by mouth every 8 (eight) hours as needed for Nausea [facility] Prochlorperazine 10 MG Oral Tablet Proch lorperazine Maleate 10 MG Oral Tablet (COMPAZINE) Prochlorperazine Maleate 10 MG Oral Tablet (COMPAZINE) 06/11/2019 12:00:00 AM EDT 10 mg Oral active Take 1 tablet by mouth every 6 (six) hours as needed [facility] Etoposide 50 MG Oral Capsule Etoposide 50 MG Oral Caps ule (VEPESID) Etoposide 50 MG Oral Capsule (VEPESID) 06/11/2019 12:00:00 AM EDT 150 mg Oral active Take 3 capsules by mouth Two Times Daily for 2 daysTake on 06/11 and 06/12 (days 2 and 3 of chemo) [facility] 1,000 mg 06/06/2019 12:00:00 AM EDT tablet [...] EDT active Blood Pressure Kit - eCW1 ([facility]) Blood Pressure Kit - Blood Pressure Kit - 05/27/2019 12:00:00 AM EDT active Blood Pressure Kit - eCW1 ([facility]) Blood Pressure Kit - Blood Pressure Kit - 05/27/2019 12:00:00 AM EDT active Blood Pressure Kit - eCW1 ([facility]) Blood Pressure Kit - Blood Pressure Kit - 05/27/2019 12:00:00 AM EDT active Blood Pressure Kit - eCW1 ([facility]) Blood Pressure Kit - Blood Pressure Kit - 05/27/2019 12:00:00 AM EDT active Blood Pressure Kit - eCW1 ([facility]) Blood Pressure Kit - Blood Pressure Kit - 05/27/2019 12:00:00 AM EDT active Blood Pressure Kit - eCW1 ([facility]) Blood Pressure Kit - Blood Pressure Kit - 05/27/2019 12:00:00 AM EDT active Blood Pressure Kit - eCW1 ([facility]) Blood Pressure Kit - Blood Pressure Kit - 05/27/2019 12:00:00 AM EDT active as directed eCW1 ([facility]) Levothyroxine Sodium 0.1 MG Oral Tablet Levothyroxine Sodium 100 MCG Oral Tablet (SYNTHROID, LEVOTHROID) Levothyroxine Sodium 100 MCG Oral Tablet (SYNTHROID, LEVOTHROID) 05/21/2019 12:00:00 AM EDT 100 ug Oral aborte d Take 1 tablet by mouth every morning [facility] etoposide (VEPESID) 156 mg in sodium chloride [...] for hypotension.Infuse through a 0.22 micron filter.
[facility] Small cell carcinoma Medication administered onsite ondansetron (ZOFRAN) injection 16 mg [id number] 05/20/2019 12:30: 00 PM EDT 16 mg Intravenous completed Small cell carcinoma 16 mg, Intravenous, Once, 05/20/19 at 1230, For 1 dose
Give 30 minutes prior to chemo
[facility] Small cell carcinoma Medication administered onsite Dexamethasone 4 MG Oral Tablet dexamethasone (DECADRON ) tablet 8 mg dexamethasone (DECADRON) tablet 8 mg 05/20/2019 12:30:00 PM EDT 8 mg Oral completed Small cell carcinoma 8 mg, Oral, Once, T ue 05/20/19 at 1230, For 1 dose
Give prior to chemotherapy.
[facility] Small cell carcinoma Medication administered onsite Ondansetron 8 MG Oral Tablet ondansetron (ZOFRAN) tabl et 8 mg ondansetron (ZOFRAN) tablet 8 mg 05/20/2019 09:00:00 AM EDT 8 mg Oral completed 8 mg, Oral, Once, e 05/20/19 at 0900, For 1 dose [facility] Medication administered onsite Prochlorperazine 10 MG Oral Tablet Proch lorperazine Maleate 10 MG Oral Tablet (COMPAZINE) Prochlorperazine Maleate 10 MG Oral Tablet (COMPAZINE) 05/20/2019 12:00:00 AM EDT 10 mg Oral active Take 1 tablet by mouth every 6 (six) hours as needed for up to 7 days [facility] Ondansetron 8 MG Disintegrating Oral Tab let Ondansetron 8 MG Oral Tablet Disintegrating Ondansetron 8 MG Oral Tablet Disintegrating 05/20/2019 12:00:00 AM EDT 8 mg Oral active Take 1 t ablet by mouth every 8 (eight) hours as needed for Nausea or Vomiting for up to 7 days [facility] Ondansetron 4 MG Oral Tablet Ondansetron HCl 4 MG Oral Tablet (ZOFRAN) Ondansetron HCl 4 MG Oral Tablet (ZOFRAN) 05/20/2019 12:00:00 AM EDT 4 mg Oral aborted Take 1 tablet by mouth every 12 (twelve) hours as needed for Nausea for up to 7 days [facility] Acetaminophen 325 MG / Hydrocodone Hector trate 5 MG Oral Tablet HYDROcodone- Acetaminophen 5-325 MG Oral Tablet (LORTAB) HYDROcodone-Acetaminophen 5-325 MG Oral Tablet (LORTAB) 05/20/2019 12:00:00 AM EDT 1 {tbl} Oral active Take 1 tablet by mouth every 6 (six) hours as needed for up to 7 days, Max Daily Dose: 4 tablets [facility] Benzocaine 15 MG / Menthol 3.6 MG Oral L ozenge Benzocaine-Menthol 15-3.6 MG Mouth/Throat Lozenge (CEPACOL) Benzocaine-Menthol 15-3.6 MG Mouth/Throa t Lozenge (CEPACOL) 05/20/2019 12:00:00 AM EDT 1 {lozenge} Mouth/Throat active Use as directed 1 lozenge in the mouth or throat every 2 (two) hours as needed [facility] atorvastatin 40 MG Oral Tablet Atorvastatin Calcium 40 MG Oral Tablet (LIPITOR) Atorvastatin Calcium 40 MG Oral Tablet (LIPITOR) 05/20/2019 12:00:00 AM EDT 40 mg Oral active Take 1 tablet by mouth e very evening [facility] Acetaminophen 325 MG Oral Tablet Acetaminophen 325 MG Oral T ablet 05/20/2019 12:00:00 AM EDT 650 mg Oral active Take 2 tablets by mouth every 6 (six) hours as needed for up to 10 days [facility] Lisinopril 10 MG Oral Tablet Lisinopril 10 MG Oral Tab let (PRINIVIL,ZESTRIL) Lisinopril 10 MG Oral Tablet (PRINIVIL,ZESTRIL) 05/20/2019 12:00:00 AM EDT 10 mg Oral aborted Take 1 tablet by mouth e very evening [facility] Metoprolol Tartrate 50 MG Oral Tablet Me toprolol Tartrate 50 MG Oral Tablet (LOPRESSOR) Metoprolol Tartrate 50 MG Oral Tablet (LOPRESSOR) 04/27 12:00:00 AM EDT 50 mg Oral active Take 1 tablet by mouth Two Times Daily [facility] Cholecalciferol 1000 UNT Oral Tablet Vit miranda D3 25 MCG (1000 UT) Oral Tablet (CHOLECALCIFEROL) Vitamin D3 25 MCG (1000 UT) Oral Tablet (CHOLECALCIFER OL) 05/20/2019 12:00:00 AM EDT 2000 U Oral aborted Take 2 tablets by mouth nightly [facility] Allopurinol 300 MG Oral Tablet Allopurinol 300 MG Oral Tablet (ZYLOPRIM) Allopurinol 300 MG Oral Tablet (ZYLOPRIM) 05/20/2019 12:00:00 AM EDT 300 mg Oral active Take 1 tablet by violette th daily [facility] etoposide (VEPESID) 156 mg in sodium chloride [...] for hypotension.Infuse through a 0.22 micron filter.
[facility] Small cell carcinoma Medication administered onsite Dexamethasone 4 MG Oral Tablet dexamethasone (DECADRON ) tablet 8 mg dexamethasone (DECADRON) tablet 8 mg 05/19/2019 02:00:00 PM EDT 8 mg Oral completed Small cell carcinoma 8 mg, Oral, Once, M on 05/19/19 at 1400, For 1 dose
Give prior to chemotherapy.
[facility] Small cell carcinoma Medication administered onsite Ondansetron 8 MG Oral Tablet ondansetron (ZOFRAN) tabl et 16 mg ondansetron (ZOFRAN) tablet 16 mg 05/19/2019 02:00:00 PM EDT 16 mg Oral completed Small cell carcinoma 16 mg, Oral, Once, Mon at 1400, For 1 dose
Give prior to chemotherapy
[facility] Small cell carcinoma Medication administered onsite TC-99M medronate (Tc-MDP) [id number] 05/19/2019 10:45:00 AM EDT Intravenous completed Intravenous, Once, 05/19/19 at 1045, For 1 dose, Imaging Protocol [facility] Medication administered onsite 2 ML Metoclopramide 5 MG/ML Prefilled Sy ringe metoclopramide (REGLAN) injection 10 mg metoclopramide (REGLAN) injection 10 mg 05/18/2019 11:21:46 PM E DT 10 mg Intravenous active 10 mg, I ntravenous, Every 6 hours PRN, Heartburn, Starting 05/18/19 at 2321, For 30 days [facility] Medication administered onsite etoposide (VEPESID) 156 mg [...] for hypotension.Infuse through a 0.22 micron filter.
[facility] Small cell carcinoma Medication administered onsite sodium chloride 0.9 % bolus 500 mL [id number] 05/18/2019 03:00:00 PM EDT 500 mL Intravenous completed Small cell carcinoma 500 mL, Intravenous, Once, 05/18/19 at 1500, For 1 dose
Give after Cisplatin. Remove KCL from IV bag if K+ > 4.8 and/or remove Mag from bag if Mag > 2.2.
[facility] Small cell carcinoma Medication administered onsite CISplatin [...] dose
Do not refrigerate. Protect from light.
[facility] Small cell carcinoma Medication administered onsite fosaprepitant dimeglumine (EMEND) 150 mg in sodium chloride 0.9 % 150 mL infusion 05/18/2019 02:00:00 PM EDT 150 mg Intravenous completed Small cell carcinoma 150 mg, Intravenous, Once, S un 05/18/19 at 1400, For 1 dose
Give 30 minutes before chemotherapy over 20-30 minutes.
[facility] Small cell carcinoma Medication administered onsite Lorazepam 0.5 MG Oral Tablet LORazepam (ATIVAN) tablet 0.5 mg LORazepam (ATIVAN) tablet 0.5 mg 05/18/2019 02:00:00 PM EDT 0.5 mg Oral completed Small cell carcinoma 0.5 mg, Oral, Once, Sun 05/17 at 1400, For 1 dose
Give prior to chemotherapy
[facility] Small cell carcinoma Medication administered onsite Ondansetron 8 MG Oral Tablet ondansetron (ZOFRAN) tabl et 16 mg ondansetron (ZOFRAN) tablet 16 mg 05/18/2019 02:00:00 PM EDT 16 mg Oral completed Small cell carcinoma 16 mg, Oral, Once, Sun at 1400, For 1 dose
Give prior to chemotherapy
[facility] Small cell carcinoma Medication administered onsite Dexamethasone 4 MG Oral Tablet dexamethasone (DECADRON ) tablet 8 mg dexamethasone (DECADRON) tablet 8 mg 05/18/2019 02:00:00 PM EDT 8 mg Oral completed Small cell carcinoma 8 mg, Oral, Once, S un 05/18/19 at 1400, For 1 dose
Give prior to chemotherapy.
[facility] Small cell carcinoma Medication administered onsite sodium chloride 0.9 % 1,000 mL bolus 05/18/2019 12:30:00 P M EDT Intravenous completed Small cell carcinoma Int ravenous, at 500 mL/hr, Once, 05/18/19 at 1230, For 1 dose
Infuse at 500 mL/hr until urine parameters are met.If after 1000 mL infused and urine parameters are not met, contact .
[facility] Small cell carcinoma Medication administered onsite gadobutrol (GADAVIST) contrast injection 8.5 mL [id number] 05/17/2019 06:00:00 PM EDT 0.1 mL/kg Intravenous completed 8.5 mL (rounded from 8.65 mL = 0.1 mL/kg 86.5 kg), Intravenous, 1 TIME IMAGING, 05/17/19 at 1800, For 1 dose
Do not mix or administer in the same IV line with other medications.
[facility] Medication administered onsite 1 ML Lorazepam 2 MG/ML Injection LORazepam (ATIVAN) in jection 0.5 mg LORazepam (ATIVAN) injection 0.5 mg 05/17/2019 05:00:00 PM EDT 0.5 mg Intrave nous completed 0.5 mg, Intravenous, Once, Sat at 1700, For 1 dose [facility] Medication administered onsite Benzocaine 15 MG / Menthol 3.6 MG Oral L ozenge Benzocaine-Menthol (CEPACOL) 15- 3.6 MG lozenge 1 lozenge Benzocaine-Menthol (CEPACOL) 15-3.6 MG l ozenge 1 lozenge 05/17/2019 12:19:42 PM EDT 1 {lozenge} Mouth/Throat active 1 lozenge, Mouth/Throat, Every 2 hours PRN, Sore Throat, Starting 05/17/19 at 1219, For 30 days [facility] Medication administered onsite lidocaine (XYLOCAINE) 1 % injection 5 mL [id number] 05/17/2019 11:33:14 AM EDT 5 mL Subcutaneous active 5 m L, Subcutaneous, Once PRN, for PICC insertion, Starting 05/17/19 at 1133, For 30 days [facility] Medication administered onsite sodium chloride (preservative free) [...] C-34H Central Line Policy.
[Order 4 End] [facility] Medication administered onsite Levothyroxine Sodium 0.05 MG Oral Tablet levothyroxine (SYNTHROID, LEVOTHROID) tablet 100 mcg levothyroxine (SYNTHROID, LEVOTHROID) tablet 100 mcg 0 05/17/2019 09:00:00 AM EDT 100 ug Oral active 100 mcg, Oral, Every morning, First dose (after last modification) on 05/17/19 at 0900, For 30 days [facility] Medication administered onsite Insulin Lispro 100 UNT/ML [...] Summary or Summary Report within the ED.
[facility] Medication administered onsite sodium polystyrene (KAYEXALATE) powder 15 g [id number] 05/17/2019 04:15:00 AM EDT 15 g Oral completed 15 g, Oral, Once, 05/17/19 at 0415, For 1 dose
Mix with 60 mL water and shake well.
[facility] Medication administered onsite Cholecalciferol 1000 UNT Oral Tablet Vit miranda D3 (CHOLECALCIFEROL) tablet 2,000 Units Vitamin D3 (CHOLECALCIFEROL) tablet 2,000 Units 2019 10:00:00 PM EDT 2000 U Oral active 2,000 Un its, Oral, Nightly, First dose on Sun05/16/19 at 2200, For 30 days
25 mcg vitamin D3 = 1,000 International Units vitamin D3.
[facility] Medication administered onsite Metoprolol Tartrate 50 MG Oral Tablet metoprolol (LOPR ESSOR) tablet 50 mg metoprolol (LOPRESSOR) tablet 50 mg 05/16/2019 09:00:00 PM EDT 50 mg Oral active 50 mg, Oral, 2 Times Daily, First dose on Sun05/16/19 at 2100, For 30 days [facility] Medication administered onsite Lisinopril 5 MG Oral Tablet lisinopril (PRINIVIL,ZESTR IL) tablet 10 mg lisinopril (PRINIVIL,ZESTRIL) tablet 10 mg 05/16/2019 09:00:00 PM EDT 10 mg Oral active 10 mg, Oral, E very evening, First dose on Sun05/16/19 at 2100, For 30 days [facility] Medication administered onsite atorvastatin 40 MG Oral Tablet atorvastatin (LIPITOR) tablet 40 mg atorvastatin (LIPITOR) tablet 40 mg 05/16/2019 09:00:00 PM EDT 40 mg Oral active 40 mg, Oral, Every evening, First dose on Sun05/16/19 at 2100, For 30 days [facility] Medication administered onsite Glucagon 1 MG Injection glucagon (human recombinant) ( GLUCAGEN) injection 1 mg glucagon (human recombinant) (GLUCAGEN) injection 1 mg 05/16/2019 06:42:47 PM EDT 1 mg Intramuscular active 1 mg, Intramuscular, PRN, for glucose <55 without IV access, Starting Sun05/16/19 at 1842, For 30 days [facility] Medication administered onsite Glucose 0.4 MG/MG Oral Gel glucose (GLUTOSE) 40 % oral gel 15 g glucose (GLUTOSE) 40 % oral gel 15 g 05/16/2019 06:42:47 PM EDT 15 g Oral active 15 g, Oral, PRN, Low blood s ugar, for gluose 55-69 mg/dl and able to take PO, Starting Sun05/16/19 at 1842, For 30 days [facility] Medication administered onsite dextrose 50 % IV solution 25 mL [id number] 05/16/2019 06:42:47 PM E DT 25 mL Intravenous active 25 mL, Intrav enous, PRN, Other, blood glucose <55, Starting Sun05/16/19 at 1842, For 30 days
Not for midline administration.
[facility] Medication administered onsite iohexol (OMNIPAQUE) 240 MG/ML contrast 20 mL [id number] 05:57:07 PM EDT 20 mL Oral completed 20 mL, Oral, O nce PRN, Contrast, Per Protocol, Starting Sun05/16/19 at 1757, For [address] to tell RN administration time of first dose. Dilute in 500 mL liquid x1 Now per protocol. Use "Contrast dose chart" link for dosing guidelines.
[facility] Medication administered onsite iohexol (OMNIPAQUE) 240 MG/ML contrast 20 mL [id number] 05:57:07 PM EDT 20 mL Oral completed 20 mL, Oral, O nce PRN, Contrast, Per Protocol, Starting Sun05/16/19 at 1757, For 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 Use "Contrast dose chart" link for dosing guidelines.
[facility] Medication administered onsite Acetaminophen 325 MG / [...] mg from all sources in 24 hours.
[facility] Medication administered onsite Allopurinol 300 MG Oral Tablet allopurinol (ZYLOPRIM) tablet 300 mg allopurinol (ZYLOPRIM) tablet 300 mg 05/16/2019 05:15:00 PM EDT 300 mg Oral active 300 mg, Oral, Daily Standard, First dose on Sun at 1715, For 8 doses [facility] Medication administered onsite Acetaminophen 325 MG Oral [...] mg from all sources in 24 hours.
[facility] Medication administered onsite NaCl infusion 0.9 % [id number] 05/16/2019 04:45:00 PM EDT Intravenous active at 100 mL/hr, Intrav enous, Continuous, Starting Sun05/16/19 at 1645, For 30 days [facility] Medication administered onsite Glucagon 1 MG Injection glucagon (human recombinant) ( GLUCAGEN) injection 1 mg glucagon (human recombinant) (GLUCAGEN) injection 1 mg 05/16/2019 04:41:30 PM EDT 1 mg Intramuscular active 1 mg, Intramuscular, PRN, for glucose <55 without IV access, Starting Sun05/16/19 at 1641, For 30 days [facility] Medication administered onsite dextrose 50 % IV solution 25 mL [id number] 05/16/2019 04:41:30 PM E DT 25 mL Intravenous active 25 mL, Intrav enous, PRN, Other, blood glucose <55, Starting Sun05/16/19 at 1641, For 30 days
Not for midline administration.
[facility] Medication administered onsite Glucose 0.4 MG/MG Oral Gel glucose (GLUTOSE) 40 % oral gel 15 g glucose (GLUTOSE) 40 % oral gel 15 g 05/16/2019 04:41:30 PM EDT 15 g Oral active 15 g, Oral, PRN, Low blood s ugar, for gluose 55-69 mg/dl and able to take PO, Starting Sun05/16/19 at 1641, For 30 days [facility] Medication administered onsite Bisacodyl 10 MG Rectal Suppository bisacodyl (DULCOLAX ) suppository 10 mg bisacodyl (DULCOLAX) suppository 10 mg 05/16/2019 04:39:56 PM EDT 10 mg Rectal active 10 mg, Rectal, Daily PRN, Constipation, Constipation, Starting 05/16/19 at 1639, For 30 days [facility] Medication administered onsite 50 mg 04/09/2019 12:00:00 [...] with food or milk as needed eCW1 ([facility]) Naproxen sodium 220 MG Oral Capsule [Aleve] Aleve 220 MG Kesha ve 220 MG 04/08/2019 12:00:00 AM EST 1.0 {capsule_with_food_or_milk_as_needed} suspended Aleve 220 MG eCW1 ([facility]) Metformin hydrochloride 500 MG Oral Tablet Metformin H Cl 500 MG Metformin HCl 500 MG 04/08/2019 12:00:00 AM EST active 1 tablet with a meal eCW1 ([facility]) Naproxen sodium 220 MG Oral Capsule [Aleve] Aleve 220 MG Kesha ve 220 MG 04/08/2019 12:00:00 AM EST 1.0 {capsule_with_food_or_milk_as_needed} active Aleve 220 MG eCW1 ([facility]) Naproxen sodium 220 MG Oral Capsule [Aleve] Aleve 220 MG Kesha ve 220 MG 04/08/2019 12:00:00 AM EST 1.0 {capsule_with_food_or_milk_as_needed} active Aleve 220 MG eCW1 ([facility]) Naproxen sodium 220 MG Oral Capsule [Aleve] Aleve 220 MG Kesha ve 220 MG 04/08/2019 12:00:00 AM EST 1.0 {capsule_with_food_or_milk_as_needed} active Aleve 220 MG eCW1 ([facility]) Naproxen sodium 220 MG Oral Capsule [Aleve] Aleve 220 MG Kesha ve 220 MG 04/08/2019 12:00:00 AM EST active 1 capsu le with food or milk as needed eCW1 ([facility]) Naproxen sodium 220 MG Oral Capsule [Aleve] Aleve 220 MG Kesha ve 220 MG 04/08/2019 12:00:00 AM EST 1.0 {capsule_with_food_or_milk_as_needed} suspended Aleve 220 MG eCW1 ([facility]) Naproxen sodium 220 MG Oral Capsule [Aleve] Aleve 220 MG Kesha ve 220 MG 04/08/2019 12:00:00 AM EST 1.0 {capsule_with_food_or_milk_as_needed} suspended Aleve 220 MG eCW1 ([facility]) Naproxen sodium 220 MG Oral Capsule [Aleve] Aleve 220 MG Kesha ve 220 MG 04/08/2019 12:00:00 AM EST 1.0 {capsule_with_food_or_milk_as_needed} active Aleve 220 MG eCW1 ([facility]) 10 mg 03/07/2019 12:00:00 AM EST tablet [...] Take 100 mc g by mouth Daily [facility] Cholecalciferol 2000 UNT Oral Tablet Vitamin D 50 MCG (1999) Oral Tablet Vitamin D 50 MCG (1999) Oral Tablet 2000 U Oral aborted Take 2,000 Units by mouth daily [facility] Metformin hydrochloride 1000 MG Oral Tab let metFORMIN HCl 1000 MG Oral Tablet (GLUCOPHAGE) metFORMIN HCl 1000 MG Oral Tablet (GLUCOPHAGE) 1000 mg Oral aborted Take 1,000 mg by mouth every morning [facility] Metoprolol Tartrate 50 MG Oral Tablet Me toprolol Tartrate 50 MG Oral Tablet (LOPRESSOR) Metoprolol Tartrate 50 MG Oral Tablet (LOPRESSOR) 50 mg Oral aborted Take 50 mg by mouth Two Time s Daily [facility] atorvastatin 40 MG Oral Tablet Atorvastatin Calcium 40 MG Oral Tablet (LIPITOR) Atorvastatin Calcium 40 MG Oral Tablet (LIPITOR) 40 mg Oral aborted Take 40 mg by mouth every evening [facility] Lisinopril 10 MG Oral Tablet Lisinopril 10 MG Oral Tab let (PRINIVIL,ZESTRIL) Lisinopril 10 MG Oral Tablet (PRINIVIL,ZESTRIL) 10 mg Oral aborted Take 10 mg by mouth daily [facility] Levothyroxine Sodium 0.05 MG Oral Tablet Levothyroxine Sodium 50 MCG Oral Tablet (SYNTHROID) Levothyroxine Sodium 50 MCG Oral Tablet (SYNTHROID) 50 ug Oral aborted Take 50 mcg by mouth [facility] Levothyroxine Sodium 0.025 MG Oral Table t Levothyroxine Sodium 25 MCG Oral Tablet (SYNTHROID) Levothyroxine Sodium 25 MCG Oral Tablet (SYNTHROID) 25 ug Oral aborted Take 25 mcg by mouth [facility] Insurance Providers Payer name Policy type / Coverage type Policy ID Covered constitution party ID Covered constitution party's relationship to chu Policy Chu Plan Information CORI [id number] SP [id number] CORI I [id number] Self [id number] MEDICAID M [id number] Self [id number] CORI EXCHANGE U [id number] Self [id number] [place] [id number] S [id number] [facility]I [facility] [id number] SP [id number] CORI EXCHANGE U [id number] Self [id number] ANSI-Commercial [id number] ANSI-Commercial [id number] ANSI-Commercial [id number] SELF PAY ONLY [id number] SP [id number] [facility] COMMUNITY PLAN MCDO [id number] SP [id number] [facility] COMMUNITY PLAN JEWISH [facility] [id number] SP [id number] SELF PAY ONLY [id number] SP [id number] [facility] Health Maintenance Organization (HMO) [id number] Self [id number] Consolidated Claims Workers Compensation [id number] Self [id number] [facility] Community Plan Commercial [id number] Self [id number] [facility] COMMUNITY PLAN [facility] [id number] SP [id number] [facility] O [id number] S [id number] [facility] Health Maintenance Organization (HMO) Self SELF PAY ONLY [id number] SP [id number] SELF PAY UNAVAILABLE SP UNAVAILA BLE SELF PAY ONLY UNAVAILABLE SP UNAV AILABLE Problems, Conditions, and Diagnoses Code Display Name Description Problem Type Effective Dates Data Source(s) C34.90 [id number] 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, unspecified laterality Problem 01/29/2020 12:00:00 AM EST eCW1 ([facility]) [id number] Precordial pain Precordial pain Problem 12/15/2019 12:0 0:00 AM EDT MED[facility] ([facility]) [id number] Dyspnea Dyspnea Problem 12/15/2019 12:00:00 AM ED T [facility] ([facility]) [id number] Electrocardiogram abnormal Electrocardiogram abnormal Problem 12/15/2019 12:00:00 AM EDT [facility] ([facility]) [id number] Essential hypertension Essential hypertension Problem 12/15/2019 12:00:00 AM EDT [facility] ([facility]) [id number] Disorder of pericardium Disorder of pericardium Proble m 12/15/2019 12:00:00 AM EDT [facility] ([facility]) [id number] Coronary arteriosclerosis Coronary arteriosclerosis Pr oblem 12/15/2019 12:00:00 AM EDT [facility] ([facility]) E04.9 [id number] Enlarged thyroid Problem 09/09/2019 12:00:00 AM EDT eCW1 ([facility]) G93.89 [id number] Brain mass Problem 05/27/2019 12:00:00 AM ED T eCW1 ([facility]) C34.90 [id number] Small cell lung cancer Problem 05/27/2019 12 :00:00 AM EDT eCW1 ([facility]) F17.218 [id number] Cigarette nicotine d ependence with other nicotine- induced disorder Problem 05/27/2019 12:00:00 AM EDT eCW1 ([facility]) G93.89 [id number] Brain mass Problem 05/27/2019 12:00:00 AM ED T eCW1 ([facility]) C34.90 [id number] Small cell lung cancer Problem 05/27/2019 12 :00:00 AM EDT eCW1 ([facility]) F17.218 [id number] Cigarette nicotine d ependence with other nicotine- induced disorder Problem 05/27/2019 12:00:00 AM EDT eCW1 ([facility]) C79.49 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 Secondary malignant neoplasm of other parts of nervous system Diagnosis 06:25:46 AM [facility] C79.31 Secondary malignant neoplasm of brain Se condary malignant neoplasm of brain Diagnosis 03/17/2020 06:25:46 AM [facility] S32.019A Unspecified fracture of firs t lumbar vertebra, initial encounter for closed fracture Unspecified fracture of first lumbar solis tebra, initial encounter for closed fracture Diagnosis 02/24/2020 10:54:42 AM [facility] follow follow Diagnosis 02/24/2020 09:44:13 AM [facility] S32.018A Other fracture of first lumb ar vertebra, initial encounter for closed fracture Other fracture of first lumbar vertebra, initial encounter for closed fracture Diagnosis 01/26/2020 01:02:24 PM [facility] on treat on treat Diagnosis 01/16/2020 02:51:46 PM [facility] follow up follow up Diagnosis 11/19/2019 09:43:53 AM [facility] treat treat Diagnosis 10/15/2019 03:23:59 PM [facility] C80.1 Malignant (primary) neoplasm, unspecifie d Malignant (primary) neoplasm, unspecified Diagnosis 09/26/2019 10:33:00 AM [facility] C34.90 Malignant neoplasm of unspecified part o f unspecified bronchus or lung Malignant neoplasm of unspecified part of unspecified bronchus or lung Diagnosis 09/25/2019 09:52:04 PM [facility] ct sim ct sim Diagnosis 09/24/2019 01:45:54 PM [facility] Z51.5 Encounter for palliative care Encounter for palliative care Diagnosis 07/23/2019 01:31:05 PM [facility] Small cell carcinoma Small cell carcinoma Diagnosis 05/17/2019 12:00:00 AM [facility] superior vena cava syndrome, lung CA, 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, lung CA, needs chemo Diagnosis 05/17/2019 12:00:00 AM [facility] superior vena cava syndrome, lung CA superior ve na cava syndrome, lung CA Diagnosis 05/16/2019 03:27:59 PM [facility] Surgeries/Procedures Procedure Description Date Indications Data Source(s) BLOOD COUNT COMPLETE AUTO&AUTO DIFRNTL WBC COUNT CBC AND DIFFER ENTIAL Routine 03/31/2020 8:14 AM EST 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 03/31/2020 08:14:00 AM EST Small cell lung cancerSecondary malignant neoplasm of brain and spinal cord 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 MAGNESIUM MAGNESIUM LEVEL STAT 03/31/2020 8:14 AM EST 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 03/31/2020 08:14:00 AM EST Small cell lung cancerSecondary malignant neoplasm of brain and spinal cord 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 COMPREHENSIVE METABOLIC PANEL COMPREHENSIVE METABOLIC PANEL STA T 03/31/2020 8:14 AM EST 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 03/31/2020 08:14:00 AM EST Small cell lung cancerSecondary malignant neoplasm of brain and spinal cord 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 MRI BRAIN BRAIN STEM W/O &W/CONTRAST MATERIAL MR BRAI N WITH AND WITHOUT CONTRAST [id number] Routine 02/23/2020 10:16 AM EST Small cell lung cancer 02/23/2020 10:16:00 AM EST [facility] cell [facility] Small cell lung cancer BLOOD COUNT COMPLETE AUTO&AUTO DIFRNTL WBC COUNT CBC AND DIFFER ENTIAL Routine 01/21/2020 11:03 AM EST Small cell lung cancer 01/21/2020 11:03:00 AM EST [facility] cell [facility] Small cell lung cancer THYROID STIMULATING HORMONE TSH TSH Routine 01/21/20 20 11:03 AM EST Small cell lung cancer 01/21/2020 11:03:00 AM EST Small cell [facility] Small cell lung cancer COMPREHENSIVE METABOLIC PANEL COMPREHENSIVE METABOLIC PANEL STA T 01/21/2020 11:03 AM EST Small cell lung cancer 01/21/2020 11:03:00 AM EST Small cell [facility] Small cell lung cancer MRI BRAIN BRAIN STEM W/O &W/CONTRAST MATERIAL MR BRAI N WITH AND WITHOUT CONTRAST [id number] Routine 01/19/2020 2:08 PM EST Brain metastases 01/19/2020 02:08:00 PM EST Brain metastases [facility] Brain metastases THER RAD SIMULAJ-AIDED FIELD SETTING COMPLEX CT SIMUL ATION AT RAD ONC (IN OFFICE) Routine 01/12/2020 1:39 PM EST Small cell lung cancer 01/12/2020 01:39:00 PM EST Small cell [facility] Small cell lung cancer BONE &/JOINT IMAGING WHOLE BODY NM BONE SCAN IMAGING WHOLE BODY [id number] Routine 01/12/2020 12:36 PM EST Small cell lung cancer 01/12/2020 12:36:22 PM EST Small cell [facility] Small cell lung cancer CT ABDOEN & PELVIS W/CONTRAST MATERIAL CT ABDOMEN PELVIS WI TH CONTRAST [id number] Routine 01/12/2020 12:05 PM EST Small cell lung cancer 01/12/2020 12:05:00 PM EST Small cell [facility] Small cell lung cancer RADIOLOGY REPORT RADIOLOGY REPORT 01/07/2020 12:52 PM EST 01/07/2020 12:52:10 PM [facility] BLOOD COUNT COMPLETE AUTO&AUTO DIFRNTL WBC COUNT CBC AND DIFFER ENTIAL STAT 01/02/2020 12:57 PM EST Small cell lung cancer 01/02/2020 12:57:00 PM EST Small cell [facility] Small cell lung cancer THYROID STIMULATING HORMONE TSH TSH STAT 01/02/20 12:57 PM EST Small cell lung cancer 01/02/2020 12:57:00 PM EST Small cell [facility] Small cell lung cancer COMPREHENSIVE METABOLIC PANEL COMPREHENSIVE METABOLIC PANEL STA T 01/02/2020 12:57 PM EST Small cell lung cancer 01/02/2020 12:57:00 PM EST Small cell [facility] Small cell lung cancer BLOOD COUNT COMPLETE AUTO&AUTO DIFRNTL WBC COUNT CBC AND DIFFER ENTIAL STAT 12/25/2019 12:02 PM EDT Small cell lung cancer 12/25/2019 12:02:00 PM EDT Small cell [facility] Small cell lung cancer THYROID STIMULATING HORMONE TSH TSH STAT 12/25/19 20 12:02 PM EDT Small cell lung cancer 12/25/2019 12:02:00 PM EDT Small cell [facility] Small cell lung cancer COMPREHENSIVE METABOLIC PANEL COMPREHENSIVE METABOLIC PANEL STA T 12/25/2019 12:02 PM EDT Small cell lung cancer 12/25/2019 12:02:00 PM EDT Small cell [facility] Small cell lung cancer BLOOD COUNT COMPLETE AUTO&AUTO DIFRNTL WBC COUNT CBC AND DIFFER ENTIAL STAT 12/04/2019 11:40 AM EDT Small cell lung cancer 12/04/2019 11:40:00 AM EDT Small cell [facility] Small cell lung cancer THYROID STIMULATING HORMONE TSH TSH STAT 12/04/19 20 11:40 AM EDT Small cell lung cancer 12/04/2019 11:40:00 AM EDT Small cell [facility] Small cell lung cancer COMPREHENSIVE METABOLIC PANEL COMPREHENSIVE METABOLIC PANEL STA T 12/04/2019 11:40 AM EDT Small cell lung cancer 12/04/2019 11:40:00 AM EDT Small cell [facility] Small cell lung cancer RADIOLOGY REPORT RADIOLOGY REPORT 11/17/2019 12:51 PM EDT 11/17/2019 12:51:38 PM [facility] XR CHEST FRONTAL ONLY [id number] XR CHEST FRONTAL ONLY [id number] STAT 11/13/2019 1:29 PM EDT Small cell lung cancer 11/13/2019 01:29:59 PM EDT Small cell [facility] Small cell lung cancer BLOOD COUNT COMPLETE AUTO&AUTO DIFRNTL WBC COUNT CBC AND DIFFER ENTIAL STAT 11/13/2019 11:36 AM EDT Small cell lung cancer 11/13/2019 11:36:00 AM EDT Small cell [facility] Small cell lung cancer THYROID STIMULATING HORMONE TSH TSH STAT 11/13/19 20 11:36 AM EDT Small cell lung cancer 11/13/2019 11:36:00 AM EDT Small cell [facility] Small cell lung cancer COMPREHENSIVE METABOLIC PANEL COMPREHENSIVE METABOLIC PANEL STA T 11/13/2019 11:36 AM EDT Small cell lung cancer 11/13/2019 11:36:00 AM EDT Small cell [facility] Small cell lung cancer BLOOD COUNT COMPLETE AUTO&AUTO DIFRNTL WBC COUNT CBC AND DIFFER ENTIAL Routine 10/23/2019 11:53 AM EDT Small cell lung cancer 10/23/2019 11:53:00 AM EDT Small cell [facility] Small cell lung cancer THYROID STIMULATING HORMONE TSH TSH Routine 10/23/19 20 11:53 AM EDT Small cell lung cancer 10/23/2019 11:53:00 AM EDT Small cell katherine g cancer [facility] Small cell lung cancer COMPREHENSIVE METABOLIC PANEL COMPREHENSIVE METABOLIC PANEL STA T 10/23/2019 11:53 AM EDT Small cell lung cancer 10/23/2019 11:53:00 AM EDT Small cell [facility] Small cell lung cancer MRI BRAIN BRAIN STEM W/O &W/CONTRAST MATERIAL MR YAZMIN Finney WITH AND WITHOUT CONTRAST [id number] Routine 09/15/2019 3:55 PM EDT Small cell carcinoma 09/15/2019 07:55:22 PM EDT Small cell [facility] Small cell carcinoma IRON TOTAL FE BINDING CAPACITY STAT 09/11/2019 8:1 0 AM EDT Small cell carcinoma 09/11/2019 12:10:00 PM EDT Small cell [facility] Small cell carcinoma BLOOD COUNT COMPLETE AUTO&AUTO DIFRNTL WBC COUNT CBC AND DIFFER ENTIAL Routine 09/11/2019 8:10 AM EDT Small cell carcinoma 09/11/2019 12:10:00 PM EDT Small cell [facility] Small cell carcinoma THYROID STIMULATING HORMONE TSH TSH Routine 09/11/19 8:10 AM EDT Small cell carcinoma 09/11/2019 12:10:00 PM EDT Small cell [facility] Small cell carcinoma THIAMINE VITAMIN B1 Routine 09/11/2019 8:10 AM EDT Small cell carcinoma 09/11/2019 12:10:00 PM EDT Small cell [facility] Small cell carcinoma PYRIDOXAL PHOSPHATE VITAMIN B6 Routine 09/11/2019 8:10 AM EDT Small cell carcinoma 09/11/2019 12:10:00 PM EDT Small cell [facility] Small cell carcinoma FERRITIN FERRITIN LEVEL STAT 09/11/2019 8:10 AM EDT Small cell carcinoma 09/11/2019 12:10:00 PM EDT Small cell [facility] Small cell carcinoma CYANOCOBALAMIN VITAMIN B-12 VITAMIN B12 STAT 09/11/2019 8:10 AM EDT Small cell carcinoma 09/11/2019 12:10:00 PM EDT [facility] Small cell carcinoma COMPREHENSIVE METABOLIC PANEL COMPREHENSIVE METABOLIC PANEL STA T 09/11/2019 8:10 AM EDT Small cell carcinoma 09/11/2019 12:10:00 PM EDT Small cell [facility] Small cell carcinoma FOLIC ACID SERUM FOLATE Routine 09/11/2019 8:07 AM EDT Small cell carcinoma 09/11/2019 12:07:00 PM EDT [facility] cell [facility] Small cell carcinoma IRON BINDING CAPACITY TOTAL FE BINDING CAPACITY Routine 08/20/2019 7:57 AM EDT 08/20/2019 11:57:00 AM EDT [facility] BLOOD COUNT COMPLETE AUTO&AUTO DIFRNTL WBC COUNT CBC AND DIFFER ENTIAL STAT 08/20/2019 7:57 AM EDT Small cell carcinoma 08/20/2019 11:57:00 AM EDT [facility] cell [facility] Small cell carcinoma THYROID STIMULATING HORMONE TSH TSH Routine 08/20/19 20 7:57 AM EDT Small cell carcinoma 08/20/2019 11:57:00 AM EDT [facility] Small cell carcinoma FERRITIN FERRITIN LEVEL Routine 08/20/2019 7:57 AM EDT 08/20/2019 11:57:00 AM [facility] CYANOCOBALAMIN VITAMIN B-12 VITAMIN B12 Routine 08/20/2019 7:57 AM EDT 08/20/2019 11:57:00 AM [facility] COMPREHENSIVE METABOLIC PANEL COMPREHENSIVE METABOLIC PANEL STA T 08/20/2019 7:57 AM EDT Small cell carcinoma 08/20/2019 11:57:00 AM EDT [facility] cell [facility] Small cell carcinoma BLOOD COUNT COMPLETE AUTO&AUTO DIFRNTL WBC COUNT CBC AND DIFFER ENTIAL STAT 07/23/2019 8:40 AM EDT Small cell carcinoma 07/23/2019 12:40:00 PM EDT [facility] cell [facility] Small cell carcinoma THYROID STIMULATING HORMONE TSH TSH Routine 07/23/2019 8:40 AM EDT 07/23/2019 12:40:00 PM T [facility] MAGNESIUM MAGNESIUM LEVEL STAT 07/23/2019 8:40 AM EDT Small cell carcinoma 07/23/2019 12:40:00 PM EDT [facility] Small cell carcinoma COMPREHENSIVE METABOLIC PANEL COMPREHENSIVE METABOLIC PANEL STA T 07/23/2019 8:40 AM EDT Small cell carcinoma 07/23/2019 12:40:00 PM EDT [facility] cell [facility] Small cell carcinoma MRI BRAIN BRAIN STEM W/O &W/CONTRAST MATERIAL MR BRAI N WITH AND WITHOUT CONTRAST [id number] Routine 07/14/2019 12:57 PM EDT Small cell carcinoma 07/14/2019 04:57:00 PM EDT Small cell [facility] Small cell carcinoma BLOOD COUNT COMPLETE AUTOMATED CBC AND DIFFERENTIAL Routine 07/02/2019 9:43 AM EDT Small cell carcinoma 07/02/2019 01:43:00 PM EDT Small cell [facility] Small cell carcinoma THYROID STIMULATING HORMONE TSH TSH Routine 07/02/2019 9:43 AM EDT 07/02/2019 01:43:00 PM [facility] MAGNESIUM MAGNESIUM LEVEL STAT 07/02/2019 9:43 AM EDT Small cell carcinoma 07/02/2019 01:43:00 PM EDT Small cell [facility] Small cell carcinoma COMPREHENSIVE METABOLIC PANEL COMPREHENSIVE METABOLIC PANEL STA T 07/02/2019 9:43 AM EDT Small cell carcinoma 07/02/2019 01:43:00 PM EDT Small cell [facility] Small cell carcinoma BLOOD COUNT COMPLETE AUTOMATED CBC AND DIFFERENTIAL STAT 06/11/2019 8:43 AM EDT Small cell carcinoma 06/11/2019 12:43:00 PM EDT Small cell [facility] Small cell carcinoma MAGNESIUM MAGNESIUM LEVEL Routine 06/11/2019 8:43 AM EDT 06/11/2019 12:43:00 PM [facility] COMPREHENSIVE METABOLIC PANEL COMPREHENSIVE METABOLIC PANEL STA T 06/11/2019 8:43 AM EDT Small cell carcinoma 06/11/2019 12:43:00 PM EDT Small cell [facility] Small cell carcinoma POCT GLUCOSE, DOCKED POCT GLUCOSE, DOCKED Routine 05/20/2019 12:01 PM EDT 05/20/2019 04:01:00 PM [facility] POCT GLUCOSE, DOCKED POCT GLUCOSE, DOCKED Routine 05/20/2019 8:25 AM EDT 05/20/2019 12:25:00 PM [facility] BLOOD COUNT COMPLETE AUTO&AUTO DIFRNTL WBC COUNT CBC AND DIFFER ENTIAL Routine 05/20/2019 2:20 AM EDT 05/20/2019 06:20:00 AM [facility] PHOSPHORUS INORGANIC PHOSPHORUS LEVEL Routine 05/20/2019 2:20 AM E DT 05/20/2019 06:20:00 AM [facility] MAGNESIUM MAGNESIUM LEVEL Routine 05/20/2019 2:20 AM EDT 05/20/2019 06:20:00 AM [facility] BASIC METABOLIC PANEL CALCIUM TOTAL BASIC METABOLIC PANEL Routi ne 05/20/2019 2:20 AM EDT 05/20/2019 06:20:00 AM EDT [facility] GLUCOSE QUANTITATIVE BLOOD XCPT REAGENT STRIP POCT GLUCOSEKATIUSKA Routine 05/19/2019 9:29 PM EDT 05/20/2019 01:29:00 AM [facility] GLUCOSE QUANTITATIVE BLOOD XCPT REAGENT STRIP POCT GLUCOSE, KATIUSKA SALEEM Routine 05/19/2019 5:14 PM EDT 05/19/2019 09:14:00 PM [facility] BONE &/JOINT IMAGING WHOLE BODY NM BONE SCAN IMAGING WHOLE BODY [id number] Routine 05/19/2019 2:10 PM EDT 05/19/2019 06:10:24 PM [facility] GLUCOSE QUANTITATIVE BLOOD XCPT REAGENT STRIP POCT GLUCOSEKATIUSKA Routine 05/19/2019 11:40 AM EDT 05/19/2019 03:40:00 PM [facility] GLUCOSE QUANTITATIVE BLOOD XCPT REAGENT STRIP POCT GLUCOSE, KATIUSKA SALEEM Routine 05/19/2019 8:09 AM EDT 05/19/2019 12:09:00 PM [facility] BLOOD COUNT COMPLETE AUTO&AUTO DIFRNTL WBC COUNT CBC AND DIFFER ENTIAL Routine 05/19/2019 1:33 AM EDT 05/19/2019 05:33:00 AM [facility] PHOSPHORUS INORGANIC PHOSPHORUS LEVEL Routine 05/19/2019 1:33 AM E DT 05/19/2019 05:33:00 AM [facility] MAGNESIUM MAGNESIUM LEVEL Routine 05/19/2019 1:33 AM EDT 05/19/2019 05:33:00 AM [facility] HEMOGLOBIN GLYCOSYLATED A1C HEMOGLOBIN A1C Routine 05/19/2019 1:33 AM EDT 05/19/2019 05:33:00 AM [facility] BASIC METABOLIC PANEL CALCIUM TOTAL BASIC METABOLIC PANEL Routi ne 05/19/2019 1:33 AM EDT 05/19/2019 05:33:00 AM EDT [facility] GLUCOSE QUANTITATIVE BLOOD XCPT REAGENT STRIP POCT GLUCOSEKATIUSKA Routine 05/18/2019 8:32 PM EDT 05/19/2019 12:32:00 AM [facility] GLUCOSE QUANTITATIVE BLOOD XCPT REAGENT STRIP POCT GLUCOSEKATIUSKA Routine 05/18/2019 5:17 PM EDT 05/18/2019 09:17:00 PM [facility] GLUCOSE QUANTITATIVE BLOOD XCPT REAGENT STRIP POCT GLUCOSEKATIUSKA Routine 05/18/2019 12:22 PM EDT 05/18/2019 04:22:00 PM [facility] GLUCOSE QUANTITATIVE BLOOD XCPT REAGENT STRIP POCT GLUCOSEKATIUSKA Routine 05/18/2019 8:30 AM EDT 05/18/2019 12:30:00 PM [facility] BLOOD COUNT COMPLETE AUTO&AUTO DIFRNTL WBC COUNT CBC AND DIFFER ENTIAL Routine 05/18/2019 2:50 AM EDT 05/18/2019 06:50:00 AM [facility] PHOSPHORUS INORGANIC PHOSPHORUS LEVEL Routine 05/18/2019 2:50 AM E DT 05/18/2019 06:50:00 AM [facility] MAGNESIUM MAGNESIUM LEVEL Routine 05/18/2019 2:50 AM EDT 05/18/2019 06:50:00 AM [facility] COMPREHENSIVE METABOLIC PANEL COMPREHENSIVE METABOLIC PANEL Rou julissa 05/18/2019 2:50 AM EDT 05/18/2019 06:50:00 AM EDT [facility] GLUCOSE QUANTITATIVE BLOOD XCPT REAGENT STRIP POCT GLUCOSEKATIUSKA Routine 05/17/2019 9:48 PM EDT 05/18/2019 01:48:00 AM [facility] PICC ULTRASOUND - BEDSIDE PROCEDURE PICC ULTRASOUND - BEDSI DE PROCEDURE Routine 05/17/2019 7:05 PM EDT 05/17/2019 11:05:00 PM [facility] GLUCOSE QUANTITATIVE BLOOD XCPT REAGENT STRIP POCT GLUCOSEKATIUSKA Routine 05/17/2019 6:45 PM EDT 05/17/2019 10:45:00 PM [facility] MRI BRAIN BRAIN STEM W/O &W/CONTRAST MATERIAL MR BRAI N WITH AND WITHOUT CONTRAST [id number] Routine 05/17/2019 6:34 PM EDT 05/17/2019 10:34:00 PM [facility] GLUCOSE QUANTITATIVE BLOOD XCPT REAGENT STRIP POCT GLUCOSEKATIUSKA Routine 05/17/2019 12:23 PM EDT 05/17/2019 04:23:00 PM [facility] TROPONIN QUANTITATIVE TROPONIN T Timed 05/17/2019 8:54 AM EDT 05/17/2019 12:54:00 PM EDT [facility] GLUCOSE QUANTITATIVE BLOOD XCPT REAGENT STRIP POCT GLUCOSE, DOC KED Routine 05/17/2019 8:16 AM EDT 05/17/2019 12:16:00 PM EDT [facility] BLOOD COUNT COMPLETE AUTO&AUTO DIFRNTL WBC COUNT CBC AND DIFFER ENTIAL Routine 05/17/2019 2:14 AM EDT 05/17/2019 06:14:00 AM EDT [facility] TROPONIN QUANTITATIVE TROPONIN T Timed 05/17/2019 2:14 AM EDT [facility]17[facility]OLIC PANEL COMPREHENSIVE METABOLIC PANEL Rere costa 05/17/2019 2:14 AM EDT 05/17/2019 06:14:00 AM EDT [facility] CT ABDOEN & PELVIS W/CONTRAST MATERIAL CT ABDOMEN PELVIS WI TH CONTRAST [id number] STAT 05/16/2019 10:59 PM EDT 05/17/2019 02:59:59 AM [facility] GLUCOSE QUANTITATIVE BLOOD XCPT REAGENT STRIP POCT GLUCOSE, DOC KED Routine 05/16/2019 8:56 PM EDT 05/17/2019 [facility]LOOD COUNT COMPLETE AUTO&AUTO DIFRNTL WBC COUNT CBC AND DIFFER ENTIAL Routine 05/16/2019 6:30 PM EDT 05/16/2019 10:30:00 PM [facility] TROPONIN QUANTITATIVE TROPONIN T Timed 05/16/2019 6:30 PM EDT 05/16/2019 [facility]:30[facility] COMPREHENSIVE METABOLIC PANEL COMPREHENSIVE METABOLIC PANEL Rere costa 05/16/2019 6:30 PM EDT 05/16/2019 10:30:00 PM EDT [facility] EKG 12-LEAD - CMAXX REPORT EKG 12-LEAD - CMAXX REPORT 05/16/2019 5:43 PM EDT 05/16/2019 09:43:47 PM EDT [facility] EKG 12-LEAD - CMAXX REPORT EKG 12-LEAD - CMAXX REPORT 05/16/2019 5:43 PM EDT 05/16/2019 09:43:47 PM EDT [facility] EKG 12-LEAD - CMAXX REPORT EKG 12-LEAD - CMAXX REPORT 05/16/2019 5:40 PM EDT 05/16/2019 09:40:11 PM EDT [facility] EKG 12-LEAD EKG 12-LEAD Routine 05/16/2019 5:40 PM EDT 05/16/2019 09:40:11 PM EDT [facility] GLUCOSE QUANTITATIVE BLOOD XCPT REAGENT STRIP POCT GLUCOSE, DOC KED Routine 05/16/2019 5:37 PM EDT 05/16/2019 09:37:00 PM EDT [facility] Results ID Date Data Source [id number] 03/31/2020 03:20:01 PM EST [facility] Name Value Range Interpretation Code Description Data Lynn rce(s) Supporting Document(s) Progress Note [facility] [id number] lbm [file] ICAgICAgICAgICAgICAgICAgICAgICAgICAgICAgICAgICAgICAgICAgICAgICAgICAgICAgICAgICAN CiAgICAgICAgICAgICAgICAgICAgICAgICAgICAgIC AgICAgICAgICAgICAgICAgICAgICAgICAgICAgICAgICAgICAgICAgICAgICAgICAgICAgICAgICAgIC AgICAgICAgICANCiAgICAgICAgICAgICAgICAgICAgICAgICAgICAgICAgICAgICAgICAgICAgICAgIC AgICAgICAgICAgICAgICAgICAgICAgICAgICAgICAg ICAgICAgICAgICAgICAgICAgICANCiAgICAgICAgICAgICAgICAgICAgICAgICAgICAgICAgICAgICAg ICAgICAgICAgICAgICAgICAgICAgICAgICAgICAgICAgICAgICAgICAgICAgICAgICAgICAgICAgICAg ICANCiAgICAgICAgICAgICAgICAgICAgICAgICAgIC AgICAgICAgICAgICAgICAgICAgICAgICAgICAgICAgICAgICAgICAgICAgICAgICAgICAgICAgICAgIC AgICAgICAgICAgICANCiAgICAgICAgICAgICAgICAgICAgICAgICAgICAgICAgICAgICAgICAgICAgIC AgICAgICAgICAgICAgICAgICAgICAgICAgICAgICAg ICAgICAgICAgICAgICAgICAgICAgICANCiAgICAgICAgICAgICAgICAgICAgICAgICAgICAgICAgICAg ICAgICAgICAgICAgICAgICAgICAgICAgICAgICAgICAgICAgICAgICAgICAgICAgICAgICAgICAgICAg ICAgICANCiAgICAgICAgICAgICAgICAgICAgICAgIC AgICAgICAgICAgICAgICAgICAgICAgICAgICAgICAgICAgICAgICAgICAgICAgICAgICAgICAgICAgIC AgICAgICAgICAgICAgICANCiAgICAgICAgICAgICAgICAgICAgICAgICAgICAgICAgICAgICAgICAgIC AgICAgICAgICAgICAgICAgICAgICAgICAgICAgICAg ICAgICAgICAgICAgICAgICAgICAgICAgICANCiAgICAgICAgICAgICAgICAgICAgICAgICAgICAgICAg ICAgICAgICAgICAgICAgICAgICAgICAgICAgICAgICAgICAgICAgICAgICAgICAgICAgICAgICAgICAg ICAgICAgICANCjw/mDWrY2bscXWbtgX6R6foEk0JVc 2LSD3tw6FqNDCgSGstjnZuMwzIUfVxKUPmAbuJHfw5SSijVU0NsBJfB7CtP0HsMYhvXG8IHZHwSUJjpH AnZJZgYYCgVdG9XDGiZEbjVL3SvOMgNEmyQEWmNCXrXY2FWRTtN868pwWcOT0NNr6ZQhGnKU6grn2RSM azFFFhOsfLGdk4HEcrRQ0FkEZsuEJsUNHpGCKKZeAl X6mwv3ZgEaPyKSMLCPtiMB8Cx3LjiVEjZSi+Yw2MUH3mo4MuJUvlVZNqAL8akn0TASfNTdMyD6YwgJqy XSAgv4esINKhFE0quJLhHJX9ISHqwg1mthSrFgJVv8hyw5pmQL7CLGG7BAOgCw4lZQZkTZX1AbV9OHDM KG3WUODiKQBjpHBdMABkDCMCDU0PGLcmEYC2GLOhsv ZmwRDbOSpuOQ3XQZCmevPpCRkvVFJOIOb+Dl1TOF7fu1EsDNukQKOxRO9xlr0BJUdQFwVpL9N1uWMuP6 S9ZLiqLj4YNKCeYMWpWUyhNNXWTHalIR7NFT8mltC6IJ2EfXKeHYCdMSFssXChEYt0A00vlQBnRHukYI 0KICA+Antelmo+Ab3PBVIyEDEyIWInSrWmPXNMCrXvB1Ev W6THt4OaL4JjHY97uOprhaCpPRoyDG2VPP0zFKXrZOTDEM3MaLEedK9coxCoKCMlQAMHUeStC99ghWGc PAVdCRW5TRIhUj2EWFStA3XwrgRqtXfgqaOwOQYeJQYJDL9FZYyftyBohTSqpGzyRM21qHbmUV7BCi4L CcXrYX6cnl6IrLPmSk5QNONsDn7WKXDrKRCkECPzDJ A9DOAxDeYfCJotTZXlEUAfGMY1MUPzLFPwZT1ZFqBcPHNgHRA3BgrlQGCzRXXnxi9SLRDyLJFeKZL5XW JyLAEqAUFwGNahDGUaHAQuGAU0KKOdPEWfNH1LPpQpZPJtEJS9YiSnJWZiNMMnvv1ZJSFiNXZiCNg6Uf IxPSIcCRZyHGciUOCsQAHsFST7WBSoEWUiSA8CSaJg PRLpXWHuFfMzCGAwKSGsyc5PZVYwLNCiXwZrPyZaVRJhIDQuUCqpJLOoZGX6OkUxJTBuXADsWU5EOsEi FPJeIQQ2XdXwJDZkAGTwko7ZBEGyLYGiWLE9YPOeMDMnEJDlIOnlCNUaOQQ2UOZ8PNJfLVVaDN3XGlSw EAVbTIEiXhKmSBJtITYimt9ITJErCFPvBuYmPWGgLY OiKRKhAHtyYNZdJQH6ArR0PKQfQCPvHV9UVlUzGDQgRLS8SHTtEBIkEANrle9BYWYxSTKjXlOkEGOaQX MfZUPkIAzyFJMxRVC7OuIbTNExCPGuZH6FBaWdARKgJRf0QhYxKLVpPQXoic7NDBVtAQCaBCh3PKEiBM JdBBOtYNy6qlRwcCVtEBw7EX3IF1QotyUwOlAGSz7E l977EZZzEFMwAg1TK8xtVn4qPAKySZJHZh5ABNn4JpwiX5FgJjD7OIEeNxTgNJTkEZZuJAOiSeQ5Fwzz MWE+UDjrONFePtRcDDa7FLCjPjSzZKGfQBMeZcHwCjb0MTAkFX6sMZRRBg9+DQpzdGFydHhyZWYNCjE5 DwZ8WHutJSQBUo5L ID Date Data Source [id number] 03/31/2020 01:17:29 PM [facility] Name Value Range Interpretation Code Description Data Lynn rce(s) Supporting Document(s) Progress Note [facility] MKPUSe7yRdGITpIi28/IZNneHUQgw0HuGYjzNLo1ZGzvZDMvY4OcNSU7pH5fDHQ3MGrKCtKwEjNeIlLx m [file] pipe covering molder+J7FsTP8+sGFE8bToR5mKCi+YB08fcWwI8KA2945xsdn40zjyYhHC32Vmxj/sF+/j1bNeyhe45w+t6 [file] ICAgICAgICAgICAgICAgICAgICAgICAgICAgICAgICAgICAgICAgICAgICAgICAgICAgICAgICAgICAg ICAgICAgICAgICAgICAgICAgICAgICAgICAgDQogICAgICAgICAgICAgICAgICAgICAgICAgICAgICAg ICAgICAgICAgICAgICAgICAgICAgICAgICAgICAgIC AgICAgICAgICAgICAgICAgICAgICAgICAgICAgICAgICAgICAgDQogICAgICAgICAgICAgICAgICAgIC AgICAgICAgICAgICAgICAgICAgICAgICAgICAgICAgICAgICAgICAgICAgICAgICAgICAgICAgICAgIC AgICAgICAgICAgICAgICAgICAgDQogICAgICAgICAg ICAgICAgICAgICAgICAgICAgICAgICAgICAgICAgICAgICAgICAgICAgICAgICAgICAgICAgICAgICAg ICAgICAgICAgICAgICAgICAgICAgICAgICAgICAgDQogICAgICAgICAgICAgICAgICAgICAgICAgICAg ICAgICAgICAgICAgICAgICAgICAgICAgICAgICAgIC AgICAgICAgICAgICAgICAgICAgICAgICAgICAgICAgICAgICAgICAgDQogICAgICAgICAgICAgICAgIC AgICAgICAgICAgICAgICAgICAgICAgICAgICAgICAgICAgICAgICAgICAgICAgICAgICAgICAgICAgIC AgICAgICAgICAgICAgICAgICAgICAgDQogICAgICAg ICAgICAgICAgICAgICAgICAgICAgICAgICAgICAgICAgICAgICAgICAgICAgICAgICAgICAgICAgICAg ICAgICAgICAgICAgICAgICAgICAgICAgICAgICAgICAgDQogICAgICAgICAgICAgICAgICAgICAgICAg ICAgICAgICAgICAgICAgICAgICAgICAgICAgICAgIC AgICAgICAgICAgICAgICAgICAgICAgICAgICAgICAgICAgICAgICAgICAgDQogICAgICAgICAgICAgIC AgICAgICAgICAgICAgICAgICAgICAgICAgICAgICAgICAgICAgICAgICAgICAgICAgICAgICAgICAgIC AgICAgICAgICAgICAgICAgICAgICAgICAgDQogICAg ICAgICAgICAgICAgICAgICAgICAgICAgICAgICAgICAgICAgICAgICAgICAgICAgICAgICAgICAgICAg GWCzMTKqPHXgZKGgIBSoCQUvTHPiZGIvMZPeJATgEMMjUPQqAEc4A1agHYHnEVPrTC3nYKi4Mk8+DQoN HsQhQBA5ygOdkX2DLQ8vb9EuIDgvLHCbe0BnPBp4HC 2CKIThTCwiAY8LFEatvb1CHCAxPUEqyERDh0cyPdGpUCV5OGUgNnpmZK0NYZQoR6gjwjDjLTDfJZFLDD uqHAXKCQfeKTSLLH5GTxAqI3WmjW36SPMVSw0+UXbphjEpCvcZPaL8OMKnp9IoMJp7PP0WROIqHhyhy8 HeShIsNLFOTTcqEE8OKOR7FVYpHLBhDy0ZBCEiX204 qbIoVR7XQw8MYyEfXG8pix7DZeKnTGEdWsqFTqr6EMpuLK2NcNMiZYqWvz2ckdRfsrGWp7BahlFodRLZ oQt2bUHcAYMalnwvrGPeGXUiEP1ESIL8XQUiDz0fFVFjNOOfOoRcURTTPY6YJEUhUNTyrRRcGJPsUTZC MX4AMCqiLCG5SUWzsuBdbOXbWYmjZI8UBJAzwfFoYb kgMCBSDQo+Yu2DSS7ub7VmIRoxVHHgNU2ajl1BNHeKXdAuJ3J7bBXvW9I4GBxtSj9JAQRpIHHcAhhvML FURWntUL6ERF4nqeX6PU7KkIHcGZAzEKKcnDNbBUk7O94tbCEnHAdwBI9UCSR+Antelmo+Ux7AXBCsJJOqPV XvPqSaMXDXLaDeK1NyE5AVi0DjA3CkNW42kQiswiUu TQvvFW6UZY8pXDYjMLBTII7VtPXqmI4wcyHjKTRwBNAGIbRhX17czIAzCHDrOFB2JXWqFl4FKYXfD9Tu bqQjmJagciBpFZUiTBQIVT6EEDpzqdTlwTXfbFaxTL75gMzgKN9ZJy0TDeYqBS6vql3UmLIvIf6UPXIs Ya1TUQIjDRAiQNOqWWF0NRLzDnBjSDhlERUhGUEsOU W7OBPgRYTvCG3WHtXqXESiSto4ZsapEQBgKRPyho5ATOPwBMWeJBHoVMQgCJZhSOBmUJvcSCSfUIHvVZ F0BRGwWJBoSE4JKmMwEMSjRPV6UNUlKSTgLPAfeg8QGXCkFXNvKQE2RLZxRHOhTTOaMUlrTCAzCBE5XV P0YEXrESMiDO9OTnMgRKWaKFevXyUxVVSwCNKpgx0O KLQwBVLhGNF4XKLkECAtGKRqUFeyDTIcPTY4KNa5LPDaLFGlLV4NKjLaAZNzIDJ3VOYgAYEmAZDdat3R VUDzCJZiUAY4XVJeAFUuWEPdMYzvPQJwQWZmDeE9OYSuVTDiTA8FEwQlZVZaLFAoJEYgAZUjJTFxnx6W NCVzHKBfArG7ISZbUNBhQXMgJTzdYQSeEPMzVXiuAF EcCSDyOQ9XCaNyQVZcLgH1VjvhTAKnRDQnaq8LCABdOOZdROP3SXMgIKPyKFPfMBcgKMLbKYK9QNQaIQ JeGQSlQU4EVvFfSCUuZtD5STQoJQVtYSKhfl2QZSVvBHHcKBu2SWRjEBTxIZJuZPkmMRDzPYH3EfhiKZ TtVWIqRC0VHlMvDXPlScY8YMBfEKDzOQZori5OUKVg MCJtMgH3CQHnZCGrBNRjNChfDKDiJKP5KTDcRUGeTLUoJN3IScGeGVKvBqkvPYWkDTVrSZQwpz3VXFJe FOIrPmD9GXNsBHOsPKGwPPcdNWMfMLO6EHr5VFYlBTZnSO5UGiXpNIOvBzpgRvmcVBWhMALutb1KJCLv SIJlQTSdQUSmJNDeLZHoXNfyAWBlCGD9OMEeYPEsUD RpPI5ECbVzKRmsEVHUBti7LBisX8q5PKSdFr9TH9Nuz8QrEcXgYGXQVUxhKA2ignBmGCTjFd0SV5nHSd xpMuR9JcHhFri4M4ZmEPUmKxUjJdpdShTjXzNwVTPeEU7bEWK2PCkyLpN0FBhlWHKjHwFkTeL8NJKwNZ RdPNKbTGY3DwEbYT8UJd9MHuA7MED0hOZnUq3NAvt4ZPMMLaKrFI6FYCl= ID Date Data Source [id number] 03/31/2020 08:54:30 AM EST [facility] Name Value Range Interpretation Code Description Data Lynn rce(s) Supporting Document(s) Progress Note [facility] LEZTZk1fKcYSHkEj57/ROEakVCJhf8NmTClaRKl0KTsdHXAkB4OuNTP7lS4bAKO0EYzSRcRgIkLbVdAr lbm [file] ICAgICAgICAgICAgICAgICAgICAgICAgICAgICAgIC AgICAgICAgICAgICAgICAgICAgICAgICAgICAgICAgDQogICAgICAgICAgICAgICAgICAgICAgICAgIC AgICAgICAgICAgICAgICAgICAgICAgICAgICAgICAgICAgICAgICAgICAgICAgICAgICAgICAgICAgIC AgICAgICAgICAgICAgDQogICAgICAgICAgICAgICAg ICAgICAgICAgICAgICAgICAgICAgICAgICAgICAgICAgICAgICAgICAgICAgICAgICAgICAgICAgICAg ICAgICAgICAgICAgICAgICAgICAgICAgDQogICAgICAgICAgICAgICAgICAgICAgICAgICAgICAgICAg ICAgICAgICAgICAgICAgICAgICAgICAgICAgICAgIC AgICAgICAgICAgICAgICAgICAgICAgICAgICAgICAgICAgDQogICAgICAgICAgICAgICAgICAgICAgIC AgICAgICAgICAgICAgICAgICAgICAgICAgICAgICAgICAgICAgICAgICAgICAgICAgICAgICAgICAgIC AgICAgICAgICAgICAgICAgDQogICAgICAgICAgICAg ICAgICAgICAgICAgICAgICAgICAgICAgICAgICAgICAgICAgICAgICAgICAgICAgICAgICAgICAgICAg ICAgICAgICAgICAgICAgICAgICAgICAgICAgDQogICAgICAgICAgICAgICAgICAgICAgICAgICAgICAg ICAgICAgICAgICAgICAgICAgICAgICAgICAgICAgIC AgICAgICAgICAgICAgICAgICAgICAgICAgICAgICAgICAgICAgDQogICAgICAgICAgICAgICAgICAgIC AgICAgICAgICAgICAgICAgICAgICAgICAgICAgICAgICAgICAgICAgICAgICAgICAgICAgICAgICAgIC AgICAgICAgICAgICAgICAgICAgDQogICAgICAgICAg ICAgICAgICAgICAgICAgICAgICAgICAgICAgICAgICAgICAgICAgICAgICAgICAgICAgICAgICAgICAg ICAgICAgICAgICAgICAgICAgICAgICAgICAgICAgDQogICAgICAgICAgICAgICAgICAgICAgICAgICAg ICAgICAgICAgICAgICAgICAgICAgICAgICAgICAgIC VyWHMjLOWyXCPdBBSlUQMmVSKbVVMeCGIxAGSrNXSoKPToLRHhRTNtZUb8E6xiGIWpNUQbAD9rTYb5Wf 8+MQhAUnJpYHO6piGczG0IEU5eg1DxXPqhJQJlv2CvTZg9EP9VNIXqBHzcSM0AKJdvds8PHSPgQYJzoQ QFt3tpJaYxEHZ8XBGdUzldSL1DPJVaC8ymnyMpRYCc WKIZDCdtIDFKKOzzTRJEKMHjSUOvPgXeVYkdWN6Ec4FseJZ8GWw+Kk0FII5wz8FjBZifMWGeEV7vpr4G WRzXNbIxX0RkawO3PBWrYUVpBj0BPGLfWNVfeRYeNtQuCEBDDeRpX3RokH79PJXFJx6+DQplbmRvYmoN AfVgSMAgq8HaEGd4NM1HVEFhPVp3oMEeSICuH8Jpo6 TlOw77OZJuZkjbU0KukKFkBrDIea80vegwQXHqVELvPg7cDeZaZiZxPWv7XCVbWN6kTFsxXW3HMNR4ES wiEJCuPQYiE8mFCyFzWFLzHnWvyKxaXK4QNgOaN5DfdeXthCCiDYKpYQPBTa0+DQplbmRvYmoNCjMzID Axt7DyNDu1KX6NQFTvKJpcVW0DNTNvwA3qZVxfZM9C JrZdAAWvUCFSVaHwG54cjOLeCEw6G0TcHnQlCJRgJvqpCIEhFLurLnKvRATlSnMiPFfuAQ8+ID4+DQog II6ZYXtshuRkMXYtRw4MIUFvSQPuDI4hROJmUMIaG4E2wJyjAZGNSyMqY7gbemznZQ9mIXYlP799lGot leNiPFKoQRMiJx9OYMIvLNK3YEAxbYLuWhDqWWAGBJ xsNA7GeDBvOVN1oY7oKMnmPDPxFIEmA4kJQzNmqNrjJT48tDbcxeGhxAWbYFg+Mt6ZUX7pq5UzNAf8wa GvDEpwTRX3ZEmcOOHoDJWxWAGlZOK4CQE7IAPQYdYaJZHkAWYtHVvdMCSxBHYnim3UNFAeKFVjJDOwZb WfWKGrIRBePFtpUOXfHYQcAbR7KZBxAEZyCB2HXlVs DIKhVTCoUPnzLBTlXUMyue4KDLRzMMQyOVSjXKCuFAByKSLwUUhwFHZdDUU7KgW0IBAgJNHpWL9LOjYq ZIEkJZd7ZxMaILXwAXApqg2KYUZuVRUgHtm8JSYmJWItWHCzPIbnZCBfTRCnBPJ9RQMfNODhBZ7LZqSz WXSxYTCxAvDzPXRlXMHvws6NPOBuXIEjZcszAWScTS EoNFQlUDysSNKgLTJaWKGpXZDuHHPgSC9BRmLfYXUmGAD5PyTzMMYaHGPgio3NOVXqCISrHCL2SyNiUZ XmWHYjYKouXTWgOIX3AkMdGWIpSMGcPE6UScEwDKEhMHFzLGlcKFVhSCUruf9TIZIpSBRxVNHzXCXxFH JeAJPsWSvyGKJiARV4MXv0DJSwAQMiWB9UFnIgLAAd HguaBzbsRVXyIORvjo6KDHZrAIXsMmW5PGZiYCDgRFGpJWtaIBFbKZU2KTInIYVwENUmXY9IZgObVCZz Iuo2FSMvQXUhXGWays3UIRJpZXWpDbi2LBWhWXJmNGCbIPfiNXDvDSO5WQRuMFTyZHKfXV7ATvOiFDWw PiidOIOvCUUnCWCfeq9GWTDvZAUxBRB4EGUwSCSzYR UjCGkcVEZnJCGoWwW1ADFiHWDzZH7RZnGwMRVrByO6ZOKfFOUtQBKqvk6CSRUjSCYfMPW7HSQlMBLsJZ YpIDjuJUYfAUQcSDM0QWIbBQBcHB6RMsKxLRSqKyD5VzBnTWNzUSElsg3NBGGtRQGdUuC5UmAjWUPdNQ OuMMxkDNTzRFEcSyn6OUIqUBLuUF9KKzInVJldLIOH Qra0GGhlB5a4XUYjIE0XG7Nwq0GiNzZeIUPALEcrSO0ojfFnZRRjUt2DI6yQSmbdRgBaVTLhSIGdUxTw Pya2KjrrTYe7WjRjOVbrAkB4XU0bALEkVKFzPUEoU2EzIEB7VgfwMZG8SpJmIPEkBNWtAGY6KxGqKQ5U Ch3ER[id number]= ID Date Data Source [id number] 03/31/2020 08:26:34 AM [facility] Name Value Range Interpretation Code Description Data Lynn rce(s) Supporting Document(s) Leukocytes [#/volume] in Blood by Automated count 10.1 10*3/uL 4-10 [facility] Erythrocytes [#/volume] in Blood by Automated count 3.12 10*6/uL 4.1- 5.3 [facility] Hemoglobin [Mass/volume] in Blood 11.0 g/dL 11.5-15.5 L [facility] Hematocrit [Volume Fraction] of Blood by Automated count 33.2 % 3 6-45 L [facility] Erythrocyte mean corpuscular volume [Entitic volume] b y Automated count 106.3 fL 80-96 [facility] Erythrocyte mean corpuscular hemoglobin [Entitic mass] by Automated count 35.3 pg 27-33 [facility] Erythrocyte mean corpuscular hemoglobin concentration [Mass/volume] by Automated count 33.2 g/dL 32.0-[facility] distribution width [Ratio] by Automated count 16.4 % 11.5-14.5 [facility] Platelets [#/volume] in Blood by Automated count 169 10*3/uL 150-400 [facility] Differential cell count method - Blood [facility] Neutrophils/100 leukocytes in Blood by Automated count 82 % [facility] Lymphocytes/100 leukocytes in Blood by Automated count 10 % [facility] Monocytes/100 leukocytes in Blood by Automated count 8 % [facility] Eosinophils/100 leukocytes in Blood by Automated count 0 % [facility] Basophils/100 leukocytes in Blood by Automated count 0 % [facility] Neutrophils [#/volume] in Blood by Automated count 8.26 10*3/uL 1.8-7 .0 [facility] Lymphocytes [#/volume] in Blood by Automated count 0.97 10*3/uL 1.2-4 .0 [facility] Monocytes [#/volume] in Blood by Automated count 0.78 10*3/uL 0-0.8 [facility] Eosinophils [#/volume] in Blood by Automated count 0.01 10*3/uL 0-0.5 [facility] Basophils [#/volume] in Blood by Automated count 0.04 10*3/uL 0-0.2 [facility] Nucleated erythrocytes/100 leukocytes [Ratio] in Blood by Automated count 0 /100{WBCs} 0-0 [facility] ID Date Data Source [id number] 03/31/2020 08:54:32 AM [facility] Name Value Range Interpretation Code Description Data Lynn rce(s) Supporting Document(s) Albumin [Mass/volume] in Serum or Plasma by Bromocresol green (BCG) dye binding method 3.8 g/dL 3.5-5.2 [facility] Bilirubin.total [Mass/volume] in Serum or Plasma 0.3 mg/dL <1.2 [facility] Calcium [Mass/volume] in Serum or Plasma 10.8 mg/dL 8.6-10.0 [facility] Chloride [Moles/volume] in Serum or Plasma 101 mmol/L 98-107 [facility] Creatinine [Mass/volume] in Serum or Plasma 1.20 mg/dL 0.50-0.90 [facility] Glucose [Mass/volume] in Serum or Plasma 147 mg/dL 70-140 [facility] Alkaline phosphatase [Enzymatic activity/volume] in Serum or Plasma 127 U/L 35-104 [facility] Potassium [Moles/volume] in Serum or Plasma 3.8 mmol/L 3.4-5.1 [facility] Protein [Mass/volume] in Serum or Plasma 6.3 g/dL 6.4-8.3 [facility] Sodium [Moles/volume] in Serum or Plasma 139 mmol/L 136-145 [facility] Aspartate aminotransferase [Enzymatic activity/volume] in Serum or Plasma 45 U/L <32 [facility] Urea nitrogen [Mass/volume] in Serum or Plasma 10 mg/dL 6-20 [facility] Osmolality of Serum or Plasma by calculation 289 mosm/kg 275-300 [facility] Creatinine/Urea nitrogen [Mass Ratio] in Serum or Plasma 8 [facility] Bicarbonate [Moles/volume] in Serum 25 mmol/L 22-29 [facility] Alanine aminotransferase [Enzymatic activity/volume] in Seru m or Plasma 34 U/L <33 [facility] Anion gap 3 in Serum or Plasma 14 mmol/L 8-15 [facility] Glomerular filtration rate/1.73 sq M pre dicted among non-blacks [Volume Rate/Area] in Serum or Plasma by Creatinine-based formula (MDRD) 51 mL/min/1.73m2 >60 [facility] Glomerular filtration rate/1.73 sq M pre dicted among blacks [Volume Rate/Area] in Serum or Plasma by Creatinine-based formula (MDRD) 59 mL/min/1.73m2 >60 L [facility] ID Date Data Source [id number] 03/31/2020 08:54:32 AM [facility] Name Value Range Interpretation Code Description Data Lynn rce(s) Supporting Document(s) Magnesium [Mass/volume] in Serum or Plasma 1.5 mg/dL 1.6-2.6 [facility] ID Date Data Source [id number] 03/26/2020 05:25:[address] [facility] [address] THORAX WITH CONTRAST [id number] RESUL TInterpreted by:Hawk Edmondson MBBSINDICATION: Small cell [...] rce(s) Supporting Document(s) ID Date Data Source [id number] 03/24/2020 06:40:[address] [facility] [address] ABDOMEN PELVIS WITH CONTRAST [id number] RESULTInterpreted by:Jorge Alberto Cornelius, MDPROCEDURE INFORMATION: [...] (IV); COMPARISON: CT ABDOMEN PELVIS WITH CONTRAST [id number] 01/12/2020 11:34 AM FINDINGS: Heart: There is [...] rce(s) Supporting Document(s) ID Date Data Source [id number] 03/24/2020 03:01:37 PM [facility] Name Value Range Interpretation Code Description Data Lynn rce(s) Supporting Document(s) Creatinine [Mass/volume] in Blood 1.2 mg/dL 0.50-0.90 [facility] ID Date Data Source [id number] 03/17/2020 12:53:42 PM [facility] Name Value Range Interpretation Code Description Data Lynn rce(s) Supporting Document(s) Progress Note [facility] URQKRn0jMlDUCtNw01/TLDzeXDWzv8YhGPloEOm2HEtrYOSbR1IjBBY0eQ2ePUG0RYcLMjNjSqSbZHEq [facility] [file] DQogICAgICAgICAgICAgICAgICAgICAgICAgICAgIC AgICAgICAgICAgICAgICAgICAgICAgICAgICAgICAgICAgICAgICAgICAgICAgICAgICAgICAgICAgIC AgICAgICAgICAgDQogICAgICAgICAgICAgICAgICAgICAgICAgICAgICAgICAgICAgICAgICAgICAgIC AgICAgICAgICAgICAgICAgICAgICAgICAgICAgICAg ICAgICAgICAgICAgICAgICAgICAgDQogICAgICAgICAgICAgICAgICAgICAgICAgICAgICAgICAgICAg ICAgICAgICAgICAgICAgICAgICAgICAgICAgICAgICAgICAgICAgICAgICAgICAgICAgICAgICAgICAg ICAgDQogICAgICAgICAgICAgICAgICAgICAgICAgIC AgICAgICAgICAgICAgICAgICAgICAgICAgICAgICAgICAgICAgICAgICAgICAgICAgICAgICAgICAgIC AgICAgICAgICAgICAgDQogICAgICAgICAgICAgICAgICAgICAgICAgICAgICAgICAgICAgICAgICAgIC AgICAgICAgICAgICAgICAgICAgICAgICAgICAgICAg ICAgICAgICAgICAgICAgICAgICAgICAgDQogICAgICAgICAgICAgICAgICAgICAgICAgICAgICAgICAg ICAgICAgICAgICAgICAgICAgICAgICAgICAgICAgICAgICAgICAgICAgICAgICAgICAgICAgICAgICAg ICAgICAgDQogICAgICAgICAgICAgICAgICAgICAgIC AgICAgICAgICAgICAgICAgICAgICAgICAgICAgICAgICAgICAgICAgICAgICAgICAgICAgICAgICAgIC AgICAgICAgICAgICAgICAgDQogICAgICAgICAgICAgICAgICAgICAgICAgICAgICAgICAgICAgICAgIC AgICAgICAgICAgICAgICAgICAgICAgICAgICAgICAg ICAgICAgICAgICAgICAgICAgICAgICAgICAgDQogICAgICAgICAgICAgICAgICAgICAgICAgICAgICAg ICAgICAgICAgICAgICAgICAgICAgICAgICAgICAgICAgICAgICAgICAgICAgICAgICAgICAgICAgICAg ICAgICAgICAgDQogICAgICAgICAgICAgICAgICAgIC AgICAgICAgICAgICAgICAgICAgICAgICAgICAgICAgICAgICAgICAgICAgICAgICAgICAgICAgICAgIC YsHCOlHVPnYTImOJZcYOKoPYGbMUh1G4hxGJNdCNRbGW6nZUf8Wa5+QQiCAdOzEQF6tzGiiY0CCW2ab3 MlZSrbNNBli5CoDQa7CF7IEBEmYFpwIO2MCBnwmn4Y URHmIZPfdVJNf7qiGeQxJMV0MILdTwldCR9UESFmB8qherLsNILfDETERQxdSHGQHA5VOeQgL4AsqF70 IDINCj4+ZMswzhRfRpmLHxB3YZIpn5TlAYm0HQ7QKSXxMetsn5LyRWxmOUUATXglVL0VFXZ7SOL6XVYg Bj6HFWEdW043mvVwWT9KWo1JMvOdDT9hmt6ALNtdKY ImVpnCSic9RIkvPW4KvPHjFMyCry1rjyBnycDIs4ByndUtuPGEYDpkZBQuE2SqxMtuOq5dSRIfOQ9dPU 8qLOLrFUO7EnM4TYOWVP6PSZKtWQIviOJeNOGiJLVAOK8RWMpjVDR2OTSnzpFlnXSiFHomKU6QJIZewe QgMTYgMCBSDQo+Vg9LPV9gj3LgBWjaMIPfXJ1ief2N ADzJTtHhO0F4eIOxR3T0VVkzQl1CEACaIBLqSTMiYVIJAVypZG3RVG1goyV3KJ1DiGEwOCUpBRKegBLi OWk9B20bfOFtUDcwDI8NDYT+Antelmo+At7QYEWgUAUzGTPkUnMwKKGXDmUkP6QrX3GFp2YaV6OzWM30uEbg rvRuZXvgNZ9FIO3hOFLtXXKVNO4CxVKtnB0gbwSaUg IaFHOVPcPaU44idBVgPCHmOEE0HESvXn1VRWJzI4EgqcDlyYucfeKvCFYmYNUTSD6CSMhlagZszQQjaW wkIU18lShcMR9DSx5FIsHoLX8aup7XrSAhQq3WYWAeII2PVWZeWVTjRGLwFET8UEDwImUaONdxTRZxYE IhEWE4BLXlHYWmAZ1GLhQvOCCgAAe1WIAwAHSuJFKp ls7MOQYaCMPkUAL3XTSiWUGvPHCaONrmGOLpIWScXSK4VXCwMFHeLA8KBhXsGMNiFYSkAhmmKGUjDFBj hg9LHMGkOTMaZjN4ZYCmMDOcBELpABupTZVeMPG2KkSeGABqIRYrXS9FDqEbWYPsOEZ8JLSvLSIhVEEt th7DNNLkDYOcPegkHqNmVPMdTNWmPSawWGWjCIL7RN p8RWNyAMDbYZ5RAiLoNIXfWBcnPQIcOAJrTRPtrj6TPXMuNKGaZFZkMNNoASJcPXMzOWoqOSMwJCX6Jp SsOLRcDQYaTN9OVlWwXKNqHKr9BgwoPFIrMQSoer3RSMInSXCvPWzqJDSrFYKrKUOtWEdwHBQzDERtBy w5BIUkTHIdBP1VWgUnKKAqNYY2EGktUKXyILWmtr0T VKOpKRYsZFE6XRCnITHvFJOvNJn8znRykKCjMCl0MD1PJ3XlyrYqTBrOEn8Vx048WOH5IZHrOj4YF4wp Yv6aPDGnAGLBJc8KXDm3WIknJAFpCDouF3XiVZEcIXe5HuF3EmYsNARfJUL1VWK+TRsoRDS4TOZcZ8Kr FvF2EYSsRvJiVCnnAdJ0MtM5ZVO5Xr2sPWRPPk5+MUvcmGRttEweNBNYWvGoIWI0XJotJXURSo3O ID Date Data Source [id number] 03/17/2020 12:46:05 PM [facility] Name Value Range Interpretation Code Description Data Lynn rce(s) Supporting Document(s) Operative Note [facility] QINZEd8xKjQAVkDw75/QHJxdRTDbj1LsRXcnDRb9EZvkZIAsD5EiBGY9xW5nLFU9JMlROnWaGuIsEPGp lbm [file] XnZQoQSqVsKJ5GFLl= ID Date Data Source [id number] 03/17/2020 11:36:29 AM [facility] Name Value Range Interpretation Code Description Data Lynn rce(s) Supporting Document(s) Glucose [Mass/volume] in Capillary blood by Glucometer 108 mg/dL 70- 140 [facility] ID Date Data Source [id number] 03/17/2020 09:30:26 AM [facility] Name Value Range Interpretation Code Description Data Lynn rce(s) Supporting Document(s) [facility] ELEMDa1wKyJSMrCs33/ICDmnIYRxz9MeLVaeRJo5TEidYEMtD1CxHOM2hQ6mCDE4UGvQHlHjRtInXMDw [facility] [file] RjAgMTAgMCBSDQogICAgICAvRjEgMTMgMCBSDQogIC BqYHNmRcPwJLCzGPBOTb8UBtXdUTVrDI3fffButRC8SPR+Cb4IFSRuPR1PsWERP6ZomLWqIRemR0IKOY 4HIUO1IG0RxCVjYY1TcHGMU1DqdZUlGv9cNUNue0VcIk3gK4YMJCPXYGJuIIqyEMzaLEOoBNv3C1R7PT SyG7QLW580gSNypSo8Sp1zE1BXJSrYHuVeZRfjOTjl WFAiCUx5M7H2XSWwO7PSW6WaNkAariXhO2Q+RzJzEVXHZZ1RRFLPLCw8J9J7iSWtW5D9yZxQjLU6OO7O ZA5KeZXjpTHma41+FrVCFjIlQEThU0QZPVKGJfXlUQkvIQwiOFCkBCa3Z9E1JEFsM7ZRH2bzT4u4ZK7+ GbDRAlMySJVmHu8VHuPzUp0BQiXnDK4jrn5CGHrbUL WjZdeUJsf8H2hyegd0qPXvSpB4D1I7LrS2mPVlDJ4OO7D1iAJlMKN5ENCdgFC+Dk5Vg1VgCHVxWCc1F2 dwXOWqPFBdSmEioU80O++7echhyLA1F8l8ZTDJfWPqpWfOthTrD5jIGIK2o1K9EKe/Hn8MXGY5cZf0oD IcIBAdJUv9hZ2fkHf4TjTwWT89FSYzRQfpiL9vYmz2 Q9Bjj9TpMs0rBd3sfDYpMo0QMuKtSED3leVoDbBYQrP6kJsigocrFBZ2R2w7fBX1Hd29b7tkzcLcn3Zv OcD5ZOreFLPlXoPpduUyUEI7blFioB6ewuBjGx4MWJWnBGjapeDcDgTUNo4IDnJlVU09NzndgD8vaIQ+ DQogICAgICAgICAgICAgICAgICAgICAgICAgICAgIC AgICAgICAgICAgICAgICAgICAgICAgICAgICAgICAgICAgICAgICAgICAgICAgICAgICAgICAgICAgIC AgICAgICAgICAgDQogICAgICAgICAgICAgICAgICAgICAgICAgICAgICAgICAgICAgICAgICAgICAgIC AgICAgICAgICAgICAgICAgICAgICAgICAgICAgICAg ICAgICAgICAgICAgICAgICAgICAgDQogICAgICAgICAgICAgICAgICAgICAgICAgICAgICAgICAgICAg ICAgICAgICAgICAgICAgICAgICAgICAgICAgICAgICAgICAgICAgICAgICAgICAgICAgICAgICAgICAg ICAgDQogICAgICAgICAgICAgICAgICAgICAgICAgIC AgICAgICAgICAgICAgICAgICAgICAgICAgICAgICAgICAgICAgICAgICAgICAgICAgICAgICAgICAgIC AgICAgICAgICAgICAgDQogICAgICAgICAgICAgICAgICAgICAgICAgICAgICAgICAgICAgICAgICAgIC AgICAgICAgICAgICAgICAgICAgICAgICAgICAgICAg ICAgICAgICAgICAgICAgICAgICAgICAgDQogICAgICAgICAgICAgICAgICAgICAgICAgICAgICAgICAg ICAgICAgICAgICAgICAgICAgICAgICAgICAgICAgICAgICAgICAgICAgICAgICAgICAgICAgICAgICAg ICAgICAgDQogICAgICAgICAgICAgICAgICAgICAgIC AgICAgICAgICAgICAgICAgICAgICAgICAgICAgICAgICAgICAgICAgICAgICAgICAgICAgICAgICAgIC AgICAgICAgICAgICAgICAgDQogICAgICAgICAgICAgICAgICAgICAgICAgICAgICAgICAgICAgICAgIC AgICAgICAgICAgICAgICAgICAgICAgICAgICAgICAg ICAgICAgICAgICAgICAgICAgICAgICAgICAgDQogICAgICAgICAgICAgICAgICAgICAgICAgICAgICAg ICAgICAgICAgICAgICAgICAgICAgICAgICAgICAgICAgICAgICAgICAgICAgICAgICAgICAgICAgICAg ICAgICAgICAgDQogICAgICAgICAgICAgICAgICAgIC AgICAgICAgICAgICAgICAgICAgICAgICAgICAgICAgICAgICAgICAgICAgICAgICAgICAgICAgICAgIC NvNXZrYZFmHIDfKPQrWVChPSXzYVf2I5yeVLLbGAChDO3hUNf1Vd9+LGlVMiDhXTY2zjItpO0IJX2ef9 BpEYhjLFXwj5BzPSv1GI2MSLGvGZodUP7VAIcotc2H SVWkVQUheDAIx6qxGsJwJRM4TUZcNqqyTR4AXDIyB9auuhVoDEEyJTLLWVznJAULHK1VWwKmN4JbdE53 IDINCj4+UExdvoQtCpqYNqC3SRToc2BtNWh9HY6KGJSzJrosa1OpUiJiBXFVBTuxBL4UKOT4FTNmSHUo Ab2WYBMfZ472hjNhKO3BZd1AZqAzSI5fks8PSsZfIV CfFgmQWgf2DKsyOX6XwWCxAAhPnIJpPJFinjUpNc01KCZplCVIBJKmoW5fUSMQBDKelZpnKQYfYBWbUP 0aDN5hJGEeIFJ2QkE0FMCALV2RSHOvWPBruEVkMLUrNNMIAF3YLMxoJAT3JBRlmbJaoTFsICjwTY1IHT JlbnQgMTkgMCBSDQo+Eh7OVF6xt0ScHCjlZMMyRG5y ch8DCVaYKzFoU8N7eIWuA0T2RZkjBf1RYMNoCGKgPUuaARLNQSjeFI7TIC0xriY8CI3BjAInRRWqJBQn vPPvADt0B99ndRItCIzlPJ7UTDI+Antelmo+Xz8ETANpKQOvCUNtKqEzNQUZWhAfK8ZlZ3ZRi5SgY5BiSJ02 nQrfcbRrBShqID2TUL3wACJwDYVQJW3FjMZpuN4xes MyNZNjCZSDGbItI92gsWBkJBOsFZD0LPPwEm6JIJKdQ7QijcHhsCfqhkEuMVGiXNKLPN3LHUzrnsHxoX EmmVtcRB36wBpzEO1GRs8XRfXdLH2bmh9FsZLuJw0ZOFZgHj9ZBKYqASKvSGOxIKY5SCPvDuTjLWzqYL OvAWMcLGU9SZRvDKJnUJ4NNrFcKCKlEXhzXEPgEGRd JTQcpx7ENOKoXGEvXCt3GPCwPJSvRZXrPOtoYLWgZKPzZVT6ADJyYKPcGW2QJqWdAOWrSRWhOODaREKo PGLgab7DMDUxEQEwWhA9AaUlFUIsPYGlLOqbSSCxQIQ8CLs4MDDiDCJdYN6APpZpIXMnQIDiZUWhYDJg WHKeyb5KLVYfGBRwSfT6LCEjHTQkIGVlZSvaXTKcSM V0AkU3TJKiTXRiMC0DBwMyIMXiTQK0YyfhEZPzNJUggb1SFENkDGQeFcN4ZdPoEMIpTUKqLCnwPQDsEB H3JYp9ELKgHTQjUN5ELfXbSIXuVNr3UplvIVRnNDAaaf2SFPKnWFArLVzhPgYzPQDtMBEdDLgnAJSsFC E8HDM9INYlSEAaSX6SQwWyHRDaLXzrXBnwSTJrLDZj ln5ZSGKhVNHmLYH3OGOdSVAmREVzXTqgJJQkXKCwKZw1WFTtOBIvXP6EXrKjVFToYKGtMGLgYKVgZTTc ro3WNCKuOMFcGMHpQUHlJNDmNRSnQSj4giYmlMFgESp6FY1QL7UnxoNqOfQFJo8Pe942QLTeJWLuSl4X P8jeCp3rGGNnCONVBh6QURw7UQHdCCX0OIEvUmArUv TcBDX7WNItBvVzGXF8KkQoGLv+ZKg3C0G5FgefIHTjRwBtRDJ4ONl9CBA9UZPbSxrzA1E2NE3xAXZHCc 4+GAwavPXjxNqyZDQAMdDcLYF1HCveTHOHDt2P ID Date Data Source [id number] 03/17/2020 09:06:07 AM [facility] MR BRAIN WITH CONTRAST [id number] RESULT Interpreted by:Yuliana Perez MDEXAMINATION: MR BRAIN WITH CONTRAST [id number]: 54 year old female with 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 The images were acquired for use with the [employer] neuronavigational system.FINDINGS/IMPRESSION: A stereotactic headframe for use [...] rce(s) Supporting Document(s) ID Date Data Source [id number] 03/17/2020 08:02:54 AM [facility] Name Value Range Interpretation Code Description Data Lynn rce(s) Supporting Document(s) History and Physical [facility] WGNEOw5wDxGVVlKp99/GTVvkWFPcz1XlWEysPSa6SYrrOTZlR8WoCVP5uO9qRLK6TIfZUnMgUlPxQPVj [facility] [file] AgICAgICAgICAgICAgICAgICAgICAgICAgICAgICAgICAgICAgICAgICAgICAgICAgICAgICAgICAgIC WxGRVxUYWgKTPrTTVmHE3WVCBwVONlENKyUVJhZHTi ICAgICAgICAgICAgICAgICAgICAgICAgICAgICAgICAgICAgICAgICAgICAgICAgICAgICAgICAgICAg FMOzCJNwDCFwSNKuQSSnZIGmMXKvUDCjVC9CSFYcPKHyDEToMQJrCKHpCKCsKHRvYPQgGHIvTWOmHGXc ICAgICAgICAgICAgICAgICAgICAgICAgICAgICAgIC UmHLPdYJNeBLUeKAMwUGCuXHSoAQEzEBIoWHXvYMFrYXBpCZ5OWQXcQCUoAVVsRBHoMNEkDSWsESXtOJ AgICAgICAgICAgICAgICAgICAgICAgICAgICAgICAgICAgICAgICAgICAgICAgICAgICAgICAgICAgIC PgIOFqBXQhUGTvMXQeUIVlAT1TWEKzQNGaRCZyXORf ICAgICAgICAgICAgICAgICAgICAgICAgICAgICAgICAgICAgICAgICAgICAgICAgICAgICAgICAgICAg GZYeMWSwPNGwKCAmSPQiHIXrKIGjLFMzBZYrMK3HKFGnDBCbYTSjWOAyYXQnWNFkENJfCREsPNHoLVDm ICAgICAgICAgICAgICAgICAgICAgICAgICAgICAgIC UtYTGbZUDuUCApEORfGLIvNAExLDZpNPWyNLZzLGRlMCAoDFCuNE3LGKFsFXKkXQPdBZBbVBWrMJDlIG AgICAgICAgICAgICAgICAgICAgICAgICAgICAgICAgICAgICAgICAgICAgICAgICAgICAgICAgICAgIC ScUCUrLFOdFTZuNDEcWYHoMKUwNI9CXNFsGQRgIWNw ICAgICAgICAgICAgICAgICAgICAgICAgICAgICAgICAgICAgICAgICAgICAgICAgICAgICAgICAgICAg SLGeNDPiLGXhSZFlFFFcLHRmWIBzMGQxWMAnONAzRJ6KGSQoCXJvQKZbQHHmPPHhSSNzQNFoWLQiGNDf ICAgICAgICAgICAgICAgICAgICAgICAgICAgICAgIC UoFAXkAQPsWAYqPUBnCOWlYTZoFPGqYYDmHTLoAIAzJVMyUVWiUYEnYC7VJEUrRYWqQOEbLUVqMNDvDA AgICAgICAgICAgICAgICAgICAgICAgICAgICAgICAgICAgICAgICAgICAgICAgICAgICAgICAgICAgIC McFWDoCYIzGVUlYJEfZWVzPZKzPUKrYA0NID32rEQp o6S9VVQlTB1qnrp/Lw0SVCbfblOceGMkOB8CLbQiIR9jxz0IHvGnKL2knx3OCVgVZmEbR2F6jRTnBZYk XSAVJqNeB94kMSeeTh17VYgqYDKeWgFbVGs9Hl8IOaHfH1fiUVWaGdT4ORMgCoN8AGZdCdV9HOQeXxOn CPpoNC4Da7GjvRIkQFx+Rx4GMB2nb2FhSCbcEEBvHO 4kqw0JZEeVSmIaS7YisqH4AJBdBJPzXa2FXUMtKPRyxOSxLWDaCVEXFnQrC4EloD80YNXZQh2+DQplbm GjIntJZfAjKFWbb5OnGLg6BH2GMRToUZy6eYOaBNVNNDR0LAvrHNN8oQZYIRHpXNK8FGISAGPchIFzXx YlFeYoMqYeENg9YQMwJN2tKPqrUV2DNAM8HKdlCPCo GCEwM6nPAmXgSVAaZjEapSkhCK5VRsTdE7TsxaGvpFDoRLUoVJGZZk0+CEkdyeIlJbfSLtXvOZWqh1Xf YMn7FL1FHEQlAQzhWW9FOFUyyF2zKEspRT8PPsBfRqDiAPSCFdRhU08ayQVmARq5N0GiEsFwDKAhGijr ZXMgPDwvTmFtZXMgWyBdDQogID4+ID4+NGqlNX8TZT pzclMzCNTpWr3MRWOhRTJxVL9yQLSkXEIiO5H3cNdeGFLJCvBnZ6tmfnkkJU1lABWyR858tOgtudQiHI G6DLWvVt1HWGOnYNS7QDEueWZhJawrHHSNYGxoIV8GsTZzTTY8mZ7lXMjuGLGuVTIcD9iFVtVggZqgCF 51bGwgbnVsbCBdDQo+Ne0OMT6pm5QmNVm0otUiRZld GHPwWJeaTMLqPOKjHZUaTUN1NIT6DPDONtMrOEIfWZPhQLftGITdLWXlto2SEBNuPHVjKdv9ZbPcCUPz CHQeHUgfJIIhZPY5RPA0QXVdSVTyBH0WVdXjXFChXBMlHLqkNRQbEFAljr5GBSVgGDGjCbPnMwYmFSIx HKInCNmpBPTrCORnTBE8VKUdQOOxWL9QTiAtGZAtKI U6FsTqKUNuDRGihr5ECZNkDDVpTalrRZHhDBPfXJQwWNlvBHIcFQX0VUI4BUEhGHWsYM9WRkWjPOBbEQ gpJHccRMTqUITeja2JXVMeQJAjVSA9NVTlXPOuQUWeYMyqTKSaKDSnKkN7HSAsPGIzKI9HAcFzBITdJU N1WEioAUKkFYQtuu7CMJIoNTKzBCNyPVBbZVSrQVZv GXjsYWPsRMGjVgGgMIQvAKRzZX1ZMrEhZBRaMKP9BAjtJSLnJGTxth7ETSUuJYXhZzs9QPPqMFQkNMFz TXfsOJJhEYAdPBT3RKAjZCZlIC3DEgHpEFIrTKPlEtqoKSNmZSNdty7EYZGtDBYpNCFoMpMyHFCpPGDp IJyiPOGfSCA1XQBoELNnCCIhNY6IFzLpCLKnEsEuPP OgKTIjXHMzqi8RHQJqDERlGMV8XYCrMBCdSIRkULcpICVwGFV6ZSB4NZGjMINtIJ8BKeRcWOMnNdNvJb ejOBUdESMysd3CXYVoMRRrAvW1ImWtNKKmGGFkTWnmVPBjFDL0SdJ3VQQtYQDyWH5PQbGbXPBqLahgLd ofUSKlFWOjfj6BOINhKRTsVRZbORIuJAYsTCVsZAkr WITpUUG3Zsf3EEAlLKPsYR3KRzAnHBUtWds4JcykMAAwFJUylc2VyXIdkEdvtq8EXNvYYp2RrLmrSPQc NSooIw7lqEGuADDrTPVDQe6QicXoTOExDJDXZVzvZIRsAXG6TJPnTUQcNDqeQsPkRdPwAeX3HgOnSDBk NvM2BLL4AiU8DqtfPsOkGvLwF1SgLDUdRZRnDVrgZz O9ZVLbTFr7SKD+DS7pGGq+Qs2Fz1XtgxE9rrUwXSgdLQV0KG7EFCVQY2VBGs== ID Date Data Source [id number] 03/17/2020 06:46:16 AM EST [facility] Name Value Range Interpretation Code Description Data Lynn rce(s) Supporting Document(s) Glucose [Mass/volume] in Capillary blood by Glucometer 123 mg/dL 70- 140 [facility] ID Date Data Source [id number] 03/12/2020 10:00:00 AM EST [facility] Name Value Range Interpretation Code Description Data Lynn rce(s) Supporting Document(s) SARS coronavirus 2 RNA Not Detected [facility] This lab was ordered by [facility] and reported by [facility]. ID Date Data Source [id number] 03/09/2020 03:03:19 PM EST [facility] Name Value Range Interpretation Code Description Data Lynn rce(s) Supporting Document(s) Progress Note [facility] QHCSSx4sIiFHOiFs76/YTBatUGSlf0WdQBgmPOh2KHunIDSlX6AhRHX7uF1tPPW9HSqPTjMiVbXjNBVj lbm [file] +Srinivasa/vLxFHRWqiY4q5mt0AjzKIvJZ7uuxkLYKoHA6Ha6tHqcspereBzdJPiLBiigxHxf645AvTPPqHsi KqO14UTRbu0dgPDlvPeMIot4PK+B3xfR0HQQkp5f0f dctgmUJe+aBpx+iz08bGs5nYiAK2Ou0Ufs98iRPr0nf8TtX4bHia5Qgg6zf8lb2hygJvWs6KUoCfBs8u sISTi6q5QCyEIDiDx1+97vIHbMUNlglLDViutPfDsOZPzcKFwcV4QhzAXwHVqOSJS6e5EpHjt5H5X27Z 7b4UmhnLMO37t4LhOj1HmhkXN4ZGIXZNMyCtH0/Z2I 48yGSWb3nH8zoQw6US+xMAXa/64dFqe70pbV/5CD6nr1itz13HYHA2ZUTXZ6cxwEz/th6FkB+0gL+OJp q7RmzoD6UmS4/FxrbfUs5hTRy2cOsoIOf8Z6OR9dFRYSiD7nxxI2Kl1Z2RlQMysa/PB8z+AtH16F73Tb Rl9B5mixCMMoGK8saScPh2MM5OEVsGFvzxPj8HxtYM YLHvOiHSYcGq6SlgAKF80l+i+7tY7vy1wxw8nzp+7dACrE2l/j1tDUoMCBV6I6coyt6u5soitsBCPTg0 grZX8mLT3U8N4YU8Lmx2oXNpQa0c8K9rWNmwQWl9IF1152D0KKJBuVNHppNcDWb8edjhg7N+Nq+76bB1 Solid Waste Technician+ZzCUIBWM2aQ+Pi+esxLB9oasgEcYHBecXEokQ5 [file] U0EeK8J9VzZeM5MnpzKVUpTIP1RhUyXB5IKy6NLoP5FTU0yQEqVj2YVhu4OitANgJfPL2AWXa= ID Date Data Source [id number] 03/06/2020 09:56:01 AM [facility] Name Value Range Interpretation Code Description Data Lynn rce(s) Supporting Document(s) Progress Note [facility] BCHUPl6dQgUPIrQv94/MGDeyWXRpe2EbEUexLRd8KWgfGEQzE1IwNRK3gY9yRPF8OTcUDbOkCkPfMOO9 lbm [file] ICAgICAgICAgICAgICAgICAgICAgICAgICAgICAgICAgICAgICAgICAgICAgICAgICAgICAgICAgICAg ICAgICAgICAgICAgICAgICAgICAgICAgICAgICAgICAgICAgDQogICAgICAgICAgICAgICAgICAgICAg ICAgICAgICAgICAgICAgICAgICAgICAgICAgICAgIC AgICAgICAgICAgICAgICAgICAgICAgICAgICAgICAgICAgICAgICAgICAgICAgDQogICAgICAgICAgIC AgICAgICAgICAgICAgICAgICAgICAgICAgICAgICAgICAgICAgICAgICAgICAgICAgICAgICAgICAgIC AgICAgICAgICAgICAgICAgICAgICAgICAgICAgDQog ICAgICAgICAgICAgICAgICAgICAgICAgICAgICAgICAgICAgICAgICAgICAgICAgICAgICAgICAgICAg ICAgICAgICAgICAgICAgICAgICAgICAgICAgICAgICAgICAgICAgDQogICAgICAgICAgICAgICAgICAg ICAgICAgICAgICAgICAgICAgICAgICAgICAgICAgIC AgICAgICAgICAgICAgICAgICAgICAgICAgICAgICAgICAgICAgICAgICAgICAgICAgDQogICAgICAgIC AgICAgICAgICAgICAgICAgICAgICAgICAgICAgICAgICAgICAgICAgICAgICAgICAgICAgICAgICAgIC AgICAgICAgICAgICAgICAgICAgICAgICAgICAgICAg DQogICAgICAgICAgICAgICAgICAgICAgICAgICAgICAgICAgICAgICAgICAgICAgICAgICAgICAgICAg ICAgICAgICAgICAgICAgICAgICAgICAgICAgICAgICAgICAgICAgICAgDQogICAgICAgICAgICAgICAg ICAgICAgICAgICAgICAgICAgICAgICAgICAgICAgIC AgICAgICAgICAgICAgICAgICAgICAgICAgICAgICAgICAgICAgICAgICAgICAgICAgICAgDQogICAgIC AgICAgICAgICAgICAgICAgICAgICAgICAgICAgICAgICAgICAgICAgICAgICAgICAgICAgICAgICAgIC AgICAgICAgICAgICAgICAgICAgICAgICAgICAgICAg ICAgDQogICAgICAgICAgICAgICAgICAgICAgICAgICAgICAgICAgICAgICAgICAgICAgICAgICAgICAg MADxJOFwDGOvYYDvMAQsLQYsJWWcKPCmBEVjIRTmHUVcIKEsXXZsYKYzMBVrNIh6J0cgIIPyDDPyMY9h KIq9Rp6+RCrCXlZpSYD4tpLtsP0ERH9iq6LmEAamFL Hid0HvQDx0UL1PEQMnRFyiOZ9QZHsenr3OSDHzMGAneGWHc7cbJqHgMNG2KNFrKgukZJ7CYAJdB5efpz ItECPzVUSSVCkiBXJFGJohCJUASR9YZcPlR2GkzB20DUCECo4+TDqocoJhTsrCJpM4JTVzn2IoGHs6OE 0WIGRqMtnmy2EjRkejHLIYKEutSF9FOMZ8SBN6ZHYn Hj7IXVEnM861eiOzJM4GQw0MKaBqUG2epp7ONgweSWJiCeqYCxg9VHbpRG7ZmTKmCRjHrt0penRafrNI d2ZbyaXwnQTVFOMlVFLaJHhlFN2qWPF0KAPZSDTybLLxAl4qTV2fKEHxBHOtXkP7VFGKPA1SEYZrUVIe nNIkDDGiQDKUSF4MOLfkMKR1JTHylwAofWLyXUhmWH 9QYXJlbnQgMjYgMCBSDQo+Py7NQJ4rr6KrOQnwPGMsCT8ggo0RNYlGUdEzJ8F0wHRpT9K2SCxxIk9NQD MzHNRpDzBwQRFKREvcSF5UON3wzuV9AK2QmAPuVIZlPGYcxWPwDEd2E55keEIhVLdjML4XNFW+Antelmo+Pg 7MGMHiDDViUVBlRbRkVWCYHvTbX8ZvM4HKg6NqV1Ez XZ00tYmbfaLpKGzzRY0TLK3hSQOyAVEDFS5SxQIwcI9bvdWqGnPdBBVOZxEnT52blFYqGPSuEHR2QVQm Hs4PKTIpF6DrqeHtmLyahtXfGHZfWYENWV0KHMxmbhQogGJviRuvUH39pYwsTO6XFz0ZKxAjAO8otd3H lDYvWx7MHQTqUN5PRIJaWATzFFJzJHL7PRBwZzHrPQ qwXAIbARBvYQH5DTJpZAPrIX0HKtSxILWaSfVkMVZgXWPoFDFroy2CMZXwSUSiBZRiPHXlXSRqNRXuTN bfLKOwKYTtCHO9PTJkVHDpOY6VZlKlAWAyVFC9CtfiEEFhVRZhnr4FJUHkDNIeWHobXjRkGGVlUAYzMI kkTZJoNUE6SZQ7ENFgWBJkBA4VIdRzBDLxFKfpXAQx NZCwCJNxtv6VYOYiGNQdPRcpVeNxLKHhTOSwDMjqPDYsWPT1TTP3VTUjVAUkKF7TJcJjJHGbXMZ2Kdzx DIGuSKVzcm6EIPOqSTUqKSQ5DHAyGDDqHGLvAFqhMTVjACYqSkD0AJWwXMGlEG4CQqLiTITpBQJbSCZw OWQiDTAwtp7YOEOtHANnFgVdYIRzVCLoLOXgUJziLA KlMGQcNBw9VNJoLOWbOM6ZMbOmTHVaJaQpChWqZSYpZHTgwg6SWJPbHMViMOE5WOSwZZEfGGIzVIdgNK AmRDE9CVVrBZEoPFKhBH6OMbFyLAOcTdH3XUNyJVClUFCxzg4GHWWnTOPsIPi0QpXaOUZtIMUwDMptPT QiXDY4BGw7ARTwHXCtTU1ARiXbJKMbBwKrOAByBCWh VZPujt9YEBKrUTNcVdE4BCCvVJStJSBaNNsxLGSeDOB1Zqi5YNBaMZWtZG7FNiJcRNAcSilpBtSpBLHt KZYkip4QPPEqZOCdFJJeUxEpXTElLTNtLWytVHEjCYE4BqC9TNHuJDOmOI0HVqZkLUweALAEEgb9BYia S0s2ENQnBJ0ML2Luw1CkTjfrAAOTNGuiNC1xfeAoDV ZuSi0PA4sACgjuAGIlYUYwNOIhVbMgWAO9EJS1Nub8BhOkDGA6XBOmJV1jKAEzOnJfXySbSEWzJJBcDC V9AobpLsLjVLS7JIVoJBB0YwWfVE9XZn8TQfH0SZL8jBAeDq3TBcy3GLXMQhUrLF2OPGq= ID Date Data Source [id number] 02/25/2020 10:18:13 AM [facility] MR LUMBAR SPINE WITHOUT CONTRAST [id number] NAL RESULTInterpreted by:Elfego Lopez MDEXAM: LUMBAR SPINE [...] rce(s) Supporting Document(s) ID Date Data Source [id number] 02/24/2020 02:17:47 PM [facility] Name Value Range Interpretation Code Description Data [facility] rce(s) Supporting Document(s) Progress Note [facility] AWKBYe5yYkOXQeLs91/FFTazMVWyu7XiFWrqKGd0GNqiMXRcG0YoLBG9mW1tPOT2FCwADjNgOdIoKiC3 [facility] [file] AgICAgICAgICAgICAgICAgICAgICAgICAgICAgICAg ICAgICAgICAgICAgICAgICAgICAgICAgICAgICAgICAgICAgICANCiAgICAgICAgICAgICAgICAgICAg ICAgICAgICAgICAgICAgICAgICAgICAgICAgICAgICAgICAgICAgICAgICAgICAgICAgICAgICAgICAg ICAgICAgICAgICAgICAgICAgICANCiAgICAgICAgIC AgICAgICAgICAgICAgICAgICAgICAgICAgICAgICAgICAgICAgICAgICAgICAgICAgICAgICAgICAgIC AgICAgICAgICAgICAgICAgICAgICAgICAgICAgICANCiAgICAgICAgICAgICAgICAgICAgICAgICAgIC AgICAgICAgICAgICAgICAgICAgICAgICAgICAgICAg ICAgICAgICAgICAgICAgICAgICAgICAgICAgICAgICAgICAgICAgICANCiAgICAgICAgICAgICAgICAg ICAgICAgICAgICAgICAgICAgICAgICAgICAgICAgICAgICAgICAgICAgICAgICAgICAgICAgICAgICAg ICAgICAgICAgICAgICAgICAgICAgICANCiAgICAgIC AgICAgICAgICAgICAgICAgICAgICAgICAgICAgICAgICAgICAgICAgICAgICAgICAgICAgICAgICAgIC AgICAgICAgICAgICAgICAgICAgICAgICAgICAgICAgICANCiAgICAgICAgICAgICAgICAgICAgICAgIC AgICAgICAgICAgICAgICAgICAgICAgICAgICAgICAg ICAgICAgICAgICAgICAgICAgICAgICAgICAgICAgICAgICAgICAgICAgICANCiAgICAgICAgICAgICAg ICAgICAgICAgICAgICAgICAgICAgICAgICAgICAgICAgICAgICAgICAgICAgICAgICAgICAgICAgICAg ICAgICAgICAgICAgICAgICAgICAgICAgICANCiAgIC AgICAgICAgICAgICAgICAgICAgICAgICAgICAgICAgICAgICAgICAgICAgICAgICAgICAgICAgICAgIC AgICAgICAgICAgICAgICAgICAgICAgICAgICAgICAgICAgICANCiAgICAgICAgICAgICAgICAgICAgIC AgICAgICAgICAgICAgICAgICAgICAgICAgICAgICAg ICAgICAgICAgICAgICAgICAgICAgICAgICAgICAgICAgICAgICAgICAgICAgICANCjw/iSVqN3nutLZy zgW5S9qfKq6KNu9KPI7tz4WqTHKnWSsurnXsTblVCgNlRRFqMfiCJyf0SOfpJV4QvEDgN0TlV0SfNEjh BL8FHJLxZLDquUWjIAWnGQZzFhV9ZIZyFBdxKU0RmN VqLVmuIOYcRNQtOeUmAHXpRTSoENGwDNTuTLOZBQ9UZaXcY1TjxV63CHVLXb1+RJjrudOrKunYLhO8FC Wlm4WrGSj2YV5RULUzVwlqf5BiAuIoJEDPEZejUT9GEWI5SWQ4WHQiDa4IUFDcJ353yxNvMP8JJh0FPy FnRR7cfh8VGzVhQRPqXqsDWjj2LEzrEV9ZhQNhCKdC rg0eamEigrEBb0TcqiRdeTGMxUTjAUGmGRZcXYe7DIGSKJFzfCMjYj6xPU7sPWShFTFmDsVtZLAWEW6Q DSRyVJSlqAKrUMXuWPGGLQ8TAThvBYS8WHZfqoUsxELiPCwaJN5AVJCazgTzYdNtULRHKTu+Ng1ZNH6h s0VsBWqpAiKdXO1qmb8SXUmNXaKlQ1X1nTGtI1O9JH nfYo1GKLUkHPNrAfJcXEUBQXdaDV5HQE5jtcB0DK9YmILeIXHqRSSupYKcKDa9P35cyRHbLQmzHR0LES A+Antelmo+Oj2EQIVaLOSiCTWyFzVaXVOKZgZyL1ZaW1BAk9TnN2AuGX66zBhfajJhFYuyPL9OQO7kWYMkVF WVEG4OzQJhwG3jfzDwRBFyIQWWDkMxQ95nzZRnEWHk BLD4BASkMw0IUOMoO5NhtjJvyWvdszNdEGDsAINIVT4OAVnmioIcgTRzmEnlNS32mMfmNZ9MMy4IHoWp DL9nll4MqTJsJh8ITKYxFP9UKSAtHOZhPUHiLYM6OBTaFtOsYBinVZVzYBJzXPV0LBNqJMNbHT8RIlXt NXVjEds3CcPePLElRHDnvs6JTHXhBYIiYDP9CRHnBC WnXKPyGInjHDJbIVPgNMB2CPMrYYJdRN1PMcTaVFYcBHR2QxyuLMYrDCTamz5XGQLrQCDoExs0AkMrMW RyMEKhIAjbKUAxIOW5FKM1ITKmLOHrNW1FYmHkNSAsXLceLaBtRPPpZZLdyl7OJMDnKLUpOBE2QRTbNV GqQDBtJVkqKVNdVNJyNfJ7JQGnQAUlMS9YSnXeCVQg PXLiIAFqSDOyJIRjup0IOIDnKCMlQkQ4SIHpPCTmKIFyBIjvPBKhPLHdCxP4QZCnRQTjMJ8BVoMoJRMj DGB1CNHkYIJvWJBrxc6SBIWnMBKsDfmrMJHpLYGvJOIyKLsyQMTyWKY0Hnv5LFDeIUEyUT8RAyUsQRGo ODD3RQCcMLHmSCCvbt1SVUKuWHXoMYJ8CUEbFMBoFY AaPColZRYqXXD8JOO0HERkSUKpTU6TIoFkGJMeYwI1DhJlCFVyIWJmfx9MUHFcSFNfLzD0TiXwVZQcEA JtXOpjTUYhITH7QgbhOAOfQSWtQX0EAeKfLAZkTeh3WpxzNJUoXNLdce2TYCPdYKCiYtkoTVHyTPBxSO EwXRfcFGKaFKK9Hsh3LQDoCZQpSX0YUmKwWMVxHxth BgqyTHQgHGZlpq5RNARbAPNgWKQfWjAlOTFxXINiNEf1cuUnlKVaUGc3KU2XX1ZhrfPuSsnKIa6Zi720 XFU3ZTZfOq1DM8ctCs6qNOMmRXJXUd5IPPh6VOUpLXznZ2TlARPtVTx0OjCkUHCxRsAcVJWrP6XpCVX+ NOb9EEMlDrDcXONrBJHcXZCbKFXkEwG8PYQgRDIgHc RbET0xFMLOPx6+BRkcpBVvwXbaRJTQSzC8XsExTQyqLDRQPl5K ID Date Data Source [id number] 02/23/2020 12:31:38 PM [facility] MR BRAIN WITH AND WITHOUT CONTRAST [id number] FINAL RESULTInterpreted by:ALEKSEY Fullerlinical Indication: 54 years [...] matos(s) Supporting Document(s) ID Date Data Source [id number] 02/04/2020 03:36:27 PM EST [facility] Name Value Range Interpretation Code Description Data Lynn rce(s) Supporting Document(s) Progress Note [facility] CCEQYm9gKpQGGkJb77/GFQcwQLVur7WkKKttAHw4NVbiEZQaB3JgBVF8dX0kLQP5JVcGCkYxPaGtWvS9 lbm [file] pipe covering molder/n56FGrXIBTir3TnopGAl/a8u8a2uRdHIiQkBat4WnMW3w0L+JLBqINOlrlpvvFXVYgehtWbreFoJ7 [file] Cj4+QAqiwSPlbRssPMSSNyQ8BLL1TPvrEEOVNr7P ID Date Data Source [id number] 01/27/2020 07:17:37 AM [facility] XR SPINE LUMBAR 2-3 VIEWS 24387VIBDN RES ULTInterpreted by:Edward Rios [facility] SPINECLINICAL STATEMENT: Low back pain. L1 fracture.TECHNIQUE: [...] rce(s) Supporting Document(s) ID Date Data Source [id number] 01/26/2020 02:26:40 PM [facility] Name Value Range Interpretation Code Description Data Lynn rce(s) Supporting Document(s) Progress Note [facility] TDFWZv7iBiLUHbPo39/GUMyjGMTgv2ZtCQqpPId3VPhySFOjA9IiKEF7wM4mITS6LFzGBeGjMjMjEYNo m [file] ICAgICAgICAgICAgICAgICAgICAgICAgICAgICAgIC AgICAgICAgICAgICAgICAgICAgICAgICAgICAgICAgICAgICAgICAgICAgICAgDQogICAgICAgICAgIC AgICAgICAgICAgICAgICAgICAgICAgICAgICAgICAgICAgICAgICAgICAgICAgICAgICAgICAgICAgIC AgICAgICAgICAgICAgICAgICAgICAgICAgICAgDQog ICAgICAgICAgICAgICAgICAgICAgICAgICAgICAgICAgICAgICAgICAgICAgICAgICAgICAgICAgICAg ICAgICAgICAgICAgICAgICAgICAgICAgICAgICAgICAgICAgICAgDQogICAgICAgICAgICAgICAgICAg ICAgICAgICAgICAgICAgICAgICAgICAgICAgICAgIC AgICAgICAgICAgICAgICAgICAgICAgICAgICAgICAgICAgICAgICAgICAgICAgICAgDQogICAgICAgIC AgICAgICAgICAgICAgICAgICAgICAgICAgICAgICAgICAgICAgICAgICAgICAgICAgICAgICAgICAgIC AgICAgICAgICAgICAgICAgICAgICAgICAgICAgICAg DQogICAgICAgICAgICAgICAgICAgICAgICAgICAgICAgICAgICAgICAgICAgICAgICAgICAgICAgICAg ICAgICAgICAgICAgICAgICAgICAgICAgICAgICAgICAgICAgICAgICAgDQogICAgICAgICAgICAgICAg ICAgICAgICAgICAgICAgICAgICAgICAgICAgICAgIC AgICAgICAgICAgICAgICAgICAgICAgICAgICAgICAgICAgICAgICAgICAgICAgICAgICAgDQogICAgIC AgICAgICAgICAgICAgICAgICAgICAgICAgICAgICAgICAgICAgICAgICAgICAgICAgICAgICAgICAgIC AgICAgICAgICAgICAgICAgICAgICAgICAgICAgICAg ICAgDQogICAgICAgICAgICAgICAgICAgICAgICAgICAgICAgICAgICAgICAgICAgICAgICAgICAgICAg ICAgICAgICAgICAgICAgICAgICAgICAgICAgICAgICAgICAgICAgICAgICAgDQogICAgICAgICAgICAg ICAgICAgICAgICAgICAgICAgICAgICAgICAgICAgIC ZgGMMaSHBfGETmELGhFKGsCXRlSIPwWEDrBAMuMPJjTMReRJAaTMDtVNBvTKOxEAAmNQUpETFlUJs9M9 fuXVTyKUPgHH5eKVj5Jz0+DHsTXpHyNKQ0vnLsdU4NHF3rw1LmWCohHTLcn1YiCQw4AI2ARYRfHAdeDY 3SKTskew9DJNMvMACbxEEFl1kdJwDvPSW5IAGiArnp US9GKLJsK6hrpyFtAORaLNGBXMklJZXFNLawVXVCGVSmEYBaQgQbOUldSF7Mo2FeiGQ1CQx+Xz8MKX5o u9MzFBarWMVdZJ0ipm1FTBkBGmIeZ3PehaT3THQnURWwBc9ZBOUaXSQgjPZ0YIDzYRQOIdGrX7HuoX87 IDENCj4+NZkrtbEzKioLGgReSTQck3QhMQj0NI0UGG EuQVv2eXXxXEYpM5Uaw0AwSv90JMSwHorjYYR2mWpwdeDRITVso4kkGN7FCRP9RIAcKjNlKaEkRlNjTJ O7CgTlER3nLAwqLB6ESVI6KTyrERPiUTZbA6lBQlSjTEKpRiPcmFkyPP5VLbKeA0KejxAnwCOxOHEoLN INCj4+MAmhmtMjZrzTVaYiIMTtm8GaOKw1WM0UIKTy QYzgNX1DMURlsN2sWAqgGT4OAmQtZaWoSHRQSlWlW17mfDSkVFd5W2NoHjWgZRMlJntfXDEbFBfoYmEw ZXMgWyBdDQogID4+ID4+EXauSE6WJFsobhZxJDTwIx1QMWWtGLUvDD2oODQjUHGoV9A9jInoOOOACzCt Y1kzirpzJF7lKDOoE911pDdhdoGeOGB6GFQmYy4WUS XkJLU2QMJzlEUbFyabXTBXXRppOW7TpYAfYHE7wS2vUFbkSBIaDYJzP0zILsIbxRldWB70sWtthlJenA BdDQo+Oz8CQZ6yj9HbBHa1szXpCSeqEMSqWTmiYGLeUHCzVIUlWTA3ELL9QJOSHrCwLQZoOGYzNVuqDV LrHKCguo3TAFZaRTAeRlM5UKNeMPYlQTXuYMkoPHAf LKQ1LWDdXNAxDHNbPW6QBaWgJNBvACKxCFviMFWfLDNohz4NLISqIEIxVdI0ZdVoFXBjIPZaSGzvKHXz EUDiExJ2PQYwJXCmZT9XQhUrJZWpNKA4KGRkQJTuCUEnsd5IGDOdMGCuSxusLZIvUHBuZHVrMZknJMJl PMTmGSazGKPwDOKkHD1JZpNeCIKkZLA0JiEsGTJvGH Gela9HRAWtFNTbGVp4GwOrVKPpCNDrGRoeRQTpPIZtKHmkOHPoLVToXA6NAzMpQIVzQEJ9DyRmARSpYK Rfhd8JVNFaKPJiKzJqQCCyDHHoDXTtCMdwYRDkONVmRyOuTQDfNFGnBE5ROlQwWKIyYOHvPjSoICJmED Pnbt2ZFEAoCXYxVPW9FqIuJHJhVYXrKQpfLMKbQQG0 PrTdULAnDQPpIQ4MNjExNDMoEmGvDUSnWPGlPDDzua2HQSOaVOSfHcAmJxUxSDDpZUWlRSqeYQWkUBZ3 HlE7EUHpTZWnEE2FQgSuOQBgCiZ7VoCeFGAtTVBpqf3DAUWaNJGqRvYyBYXuPDLpCFPqCUbrJLNlXRH5 FSC4GCFpXXTuGA7MGkBrALUsZniqOMMjZWQdTOGzii 3GBOQzMTAqIXLvSuGdGYFeXWOnUSinZHTyJJN0RcRnVOWbVKQsSB3AFmUnEOWaCsx4LQubGTKrRMSzvr 8XQSLmYIMyDXNxFnKtCHLxZWXbRJkbUQHoFOW4JJpoNIKgBINhHW7CCuGaENRtKeG4UUPqPXXpFMSqpd 8YOZGyKBUfTMBzDlNzPUMdIXYcMLxyFCEcSRS6YfF9 OJAsRAKdTJ6EOuJeVRUsOcI9BRgqNQNhJDWhap5HPDIdQBMpXEMrNTOtHWDvTRJuZFbvYBKyYOZ9NEqn LSItXBQcFK0CIfVaGMFhNiUaBVxvDNLhRYDiih5YVCJyMQVtFlO2NzHxRGKaZSAeFVheQYWhTUX4ATNz DMHnQPPoPX7XCsArDOAoPxigDCGqKDZyFBXlte4UFM LgYYRwZFR7ZPOrJLTsSYZfUMw5nyBwrTUqXNd9XL0LV2RpssJxKDUZXm9Cx873GPMvBXJbRi9IT2inIu 3dARVgFXIKGg5TSIj0AHRrCmz2MhCgIRGuUXJiI6IzF3DiHhRpVrMdLaWlThT+MFl5Z2AeLMvdDaZqUW IhTwQgSkOuIeTyDvHyZ6OiNxO0Hm1fOUGUJr5+ZFsgjYExrTefRVKOVvY1LCA5URlgTJEFDd1J ID Date Data Source [id number] 01/26/2020 08:33:09 AM [facility] Name Value Range Interpretation Code Description Data Lynn rce(s) Supporting Document(s) Progress Note [facility] XHQNXd7xBkCGVlDy67/FYLkaBXWvg9VuSCjrIKf0DWrhOYZpN0HwFZE0eB5aRAQ1NPhWRjCqOkBvBDEm lbm AeToqDNzXmWRYmJfnKKeAdPFcaNeupsFXzCU6YsNQ2HVTsT03iQATbHUWlF4OnKJP5PZf+Qd5LXVKbhA YdXQ0ETewS3L4wxmpKCy8rfC+oQGO9ILJxo9s2XWWEyqUTyh8TmynPvi4IizhYBvNfWMjot+mjlldRM6 a/78MLefJ5RwRzC4E6Ghi2J4vl8fFB/30W+75rWZbI /61+1AXvpjQg69+VOkkpNkXbP1zy7eEvQsvlT0h+biHFR68CyMXbC7GCvHW5B7cDqvqOzbMnyQT2zi+b z+Qi65cxG90ZjUlHF/HxRf/yXNiBaynb/zzarSx9G9pOuOyS7RqFp+ZI5gneSwPYjPoz6Mur8tEj4Sco VzMyf9v3jcK23vv6N4T43dKa64gnMkvVlVRN9jlJnc 9Ao0Y7D3eiAcUCtjcDWnVuUl7+sAMZvV8h1In3HgHvFpIsOh6qngmtJq0Wf+GA0F3r6WmqTda0wJ1YlN t+pBM01PBnDePPYLa3Om3vx2gY6LZ9L9v+uxx1n3vebhHuil/PZdxNGV6kQBfExz9A6pXZNB4LRSb2mx ckqvTI8smv1jJ8rWBaCI1tUyxK3AgZul98mp8ROvY1 QcBLFileFnqX7aU8K58uw/SRbDoXSed4qcJZdpp4iBd6opBb/6pldUeABq6H+S4T3j5vkWleu7vIAeR4 VbQjTN2btLz3dIqO7MPUg70RdNhJLS2im1KmyyHLq+4qcKyc/x2JLuL3TDOhPam7KVKsGlhd6ikSMdO7 YwGf0OLP9iQGMiA4MN3v6lGHskgxhAuuKJ3BgU/Santi [file] AgICAgICAgICAgICAgICAgICAgICAgICAgICAgICAg ICAgICAgICAgICAgICAgICAgICAgICAgICAgICAgICAgICAgICAgICANCiAgICAgICAgICAgICAgICAg ICAgICAgICAgICAgICAgICAgICAgICAgICAgICAgICAgICAgICAgICAgICAgICAgICAgICAgICAgICAg ICAgICAgICAgICAgICAgICAgICAgICANCiAgICAgIC AgICAgICAgICAgICAgICAgICAgICAgICAgICAgICAgICAgICAgICAgICAgICAgICAgICAgICAgICAgIC AgICAgICAgICAgICAgICAgICAgICAgICAgICAgICAgICANCiAgICAgICAgICAgICAgICAgICAgICAgIC AgICAgICAgICAgICAgICAgICAgICAgICAgICAgICAg ICAgICAgICAgICAgICAgICAgICAgICAgICAgICAgICAgICAgICAgICAgICANCiAgICAgICAgICAgICAg ICAgICAgICAgICAgICAgICAgICAgICAgICAgICAgICAgICAgICAgICAgICAgICAgICAgICAgICAgICAg ICAgICAgICAgICAgICAgICAgICAgICAgICANCiAgIC AgICAgICAgICAgICAgICAgICAgICAgICAgICAgICAgICAgICAgICAgICAgICAgICAgICAgICAgICAgIC AgICAgICAgICAgICAgICAgICAgICAgICAgICAgICAgICAgICANCiAgICAgICAgICAgICAgICAgICAgIC AgICAgICAgICAgICAgICAgICAgICAgICAgICAgICAg ICAgICAgICAgICAgICAgICAgICAgICAgICAgICAgICAgICAgICAgICAgICAgICANCiAgICAgICAgICAg ICAgICAgICAgICAgICAgICAgICAgICAgICAgICAgICAgICAgICAgICAgICAgICAgICAgICAgICAgICAg ICAgICAgICAgICAgICAgICAgICAgICAgICAgICANCi AgICAgICAgICAgICAgICAgICAgICAgICAgICAgICAgICAgICAgICAgICAgICAgICAgICAgICAgICAgIC AgICAgICAgICAgICAgICAgICAgICAgICAgICAgICAgICAgICAgICANCiAgICAgICAgICAgICAgICAgIC AgICAgICAgICAgICAgICAgICAgICAgICAgICAgICAg ICAgICAgICAgICAgICAgICAgICAgICAgICAgICAgICAgICAgICAgICAgICAgICAgICANCjw/gQWuO9bc nVMrsoO2X7sbWo3TEw6ODY5ea4WaRKCpLUdwisNhSsoLAiYzXUMyUlwTKdj5QYhrPG2BhDCtG6DaI0Ej GYmiSX3ASZSdKQRduSYjZSGzYDXxQdG6IZWuGVxtNP 8CaWJfCGobBWPqITCkTiWkQEUoAT7KRUOjH261vdEuBa1CZa3BQyQfAB8aqt5KAgDeXJJeSnaEIcq1XK uhTF6DhHZxvJLsEwEmJLVYNsTiJ1ezh1XhAbCxFCOEXJdyVA9Qf7UdsVJfNIh+Sa8XJI6we3KzIKgdFd EdRY6trg1HLOvZUaPaK7RniFdcCZNat5jpIMHaCS7q bRVoXLT1BGKqrIGmZLBjFhSqdYEnBLLAZMWqeSEpMT8lJX9hYAEoLEVkCkZ7YYVIVL5YWUUgMJZcwEQk APTwTDVBLQ3HZZnmWKP8ZJNhwxVyzMEtWWgrFU5HTJPixaKcOeCaIYRTYXe+Ie8KGX0ar6AbMCofHgCi NU5qmj6FRKxKCmSiL0N6eWRdS5E8PZekVb1IUFYqOG EwBHqeXSJAJZrzDR3FNA3txyQ1IZ6IcBFbXCDzIALlxLTtPKs8B01xgJKoJWqbUS5MMRE+Antelmo+Pg0KIC PqDVXeOWMsKkTqYYTPZvXbO1EoQ4AOq5QaW4MoZM00pIipwiFhSGzkRL0LZU8wTBCeFEAGYC8DtLAftE 6aqgVmNCIzVYUBEwVuL92apYBgPKWuTPReMUMkEk8A IBDvE1FgwbCfxQvwfmPsSOHxPPNTHP8MZZsqauFyqZFizYyjJA23rBwtEF3HKe5KEgOlHZ8zhh6XzHBb Lb7VWHCwLI5OECUvCPYsRSXcRPY8JAZcReRbPBmcZAEfVADaWZI2VJXcHQVaZA9MMnRqLSCpPMd1IDSs GDJhXYWdxl2GBZMtVXTgSELuRFMaYUAeCGYgHUxcCA DtGZSrYWW9WCIuQVKmGQ6DEfRmJBJfTJIkEvtqXDCtWDBtir2RBCYuLCJjTwL1LIVvSTUoCGIsSIotNI XmVFD2QMY6UKAkAVIuQJ6ANqIzYQZrJMK8ZJCnPTFuEVNgej3FDMEzXGRmGRG7CTAzGGXiVJYjAPxnLG MmBJP6LxN2WXGlJZAtQU2SZdFoNBVzCJA0WGruXDXf USKypa1IYODmQEJbWxkaLyBeUDPsMWCgUZbvWFSpNGK9TZW3HZIjKGKhHN3ABcLqTNOvBUocHHecGNFk PHObqd1STDBjYURaIAX9XoAnGBZaPKOfPLbrTYXeJWY5DYC7HGTrGPHyAB9VWaGmHXPlNKwcIekeQSXf WNUyjz4GWUAfUJSlZMKaHvKnPVOrNMJhSWrxWIBlTL A2INNdJZGuXRGjTA3IJqHsCEAfACv1AyHvBZZdATXovg7MKHAzFGNdSRLsVRAkEQWdIZLaQNehYCOoST WuCAv9EJDzYOIhGW7YBxIrMXNaGfC3JvccWKStQUZajg7FuSCoiGvutj2DAIhEIw0HvEuwYCE2QThnKc 4deEBkRnWtTWGRSz9GltVqYIGlQRXBXHnyDFLaZSAa TUEzNeS5McK4ISE8LnOoIGE2YzwwDqH2AZf3VZV5EgJ4WKHqFAMnZNkwOEd3YotdLiVxULwaXGP6FTC7 Whr4Lyu+ZH9zKYy+Gk7Qb3KajkP6bcRcJUccHLa5Ub2DZUVVQ1TNMf== ID Date Data Source [id number] 01/21/2020 03:11:36 PM [facility] Name Value Range Interpretation Code Description Data Lynn rce(s) Supporting Document(s) Progress Note [facility] PPSXKz0lQkAPIqQc54/FCGwwXZVdv2AiHQlmXVx6VGepKDDjV1VrSVM8zG8yFPP4FGlGFlPvIhZdVUF4 lbm [file] UJm0NbLOXwCvQO1RPSc= ID Date Data Source [id number] 01/21/2020 02:09:53 PM [facility] Name Value Range Interpretation Code Description Data Lynn rce(s) Supporting Document(s) Progress Note [facility] WRICCj1nSmVVPtNh13/RHDjkIYFgg0HdSVgiJBb5OBcfEWHtY4ZsQWK9dB2aEJM1FShHDbOgTlOcXAG7 lbm [file] KWD0lVQpZt2VMqCwDexZUwHlTO9YDXk= ID Date Data Source [id number] 01/21/2020 12:13:04 PM [facility] Name Value Range Interpretation Code Description Data Lynn rce(s) Supporting Document(s) Progress Note [facility] WNWNOj6jIoZULoVo18/EESgpOSVxg9NkTGwwOYo0POkyEJPeR1ZiAOU5aO8qUXV9FXlXOwTnMoGgBDF1 lbm [file] AgICAgICAgICAgICAgICAgICAgICAgICAgICAgICAg ICAgICAgICAgICAgICAgICAgICAgICAgICAgICAgICAgICAgICAgICAgDQogICAgICAgICAgICAgICAg ICAgICAgICAgICAgICAgICAgICAgICAgICAgICAgICAgICAgICAgICAgICAgICAgICAgICAgICAgICAg ICAgICAgICAgICAgICAgICAgICAgICAgDQogICAgIC AgICAgICAgICAgICAgICAgICAgICAgICAgICAgICAgICAgICAgICAgICAgICAgICAgICAgICAgICAgIC AgICAgICAgICAgICAgICAgICAgICAgICAgICAgICAgICAgDQogICAgICAgICAgICAgICAgICAgICAgIC AgICAgICAgICAgICAgICAgICAgICAgICAgICAgICAg ICAgICAgICAgICAgICAgICAgICAgICAgICAgICAgICAgICAgICAgICAgICAgDQogICAgICAgICAgICAg ICAgICAgICAgICAgICAgICAgICAgICAgICAgICAgICAgICAgICAgICAgICAgICAgICAgICAgICAgICAg ICAgICAgICAgICAgICAgICAgICAgICAgICAgDQogIC AgICAgICAgICAgICAgICAgICAgICAgICAgICAgICAgICAgICAgICAgICAgICAgICAgICAgICAgICAgIC AgICAgICAgICAgICAgICAgICAgICAgICAgICAgICAgICAgICAgDQogICAgICAgICAgICAgICAgICAgIC AgICAgICAgICAgICAgICAgICAgICAgICAgICAgICAg ICAgICAgICAgICAgICAgICAgICAgICAgICAgICAgICAgICAgICAgICAgICAgICAgDQogICAgICAgICAg ICAgICAgICAgICAgICAgICAgICAgICAgICAgICAgICAgICAgICAgICAgICAgICAgICAgICAgICAgICAg ICAgICAgICAgICAgICAgICAgICAgICAgICAgICAgDQ ogICAgICAgICAgICAgICAgICAgICAgICAgICAgICAgICAgICAgICAgICAgICAgICAgICAgICAgICAgIC AgICAgICAgICAgICAgICAgICAgICAgICAgICAgICAgICAgICAgICAgDQogICAgICAgICAgICAgICAgIC AgICAgICAgICAgICAgICAgICAgICAgICAgICAgICAg KVNqEERgMCGlTFWyDUKcWKXhRHNtRYQpTIVqKFHaIQJuMZHnLYWnLWFcZPOiHBBxJDNcARe9A8heGGGu VUJySW9nQNo8Gx3+HXdXDoQuANP5fuHmiC1YKU7gz9DoTNbuJDLat7FqHEl9FH5HEKWpEQzjEE9MJGwz jx6ZOMRlDDHgaWPOd8lwVxGcWYI8KUJePmauPZ9JPO LqJ7fciaVkPYYjKLHXCWhmUQIXFXfmYTDUWVWzLAFqJjJiFYebKF5Tu3WixDS9ERo+Dj5BLZ9wo0PkEH fmICXaHX7aef9THWoSRjHmF6KntdR6TPBrHRBgSj8COWGjTQVyhNQjVrShMAMWTdMlM6JiyG78QSBNGq 4+HVurstUyVjuMQqYeMSBwp8SeKLm2RV6ILSAyVVe4 eJJuDUWzH7Hto5VfIm44FWGaXnwtB7FbtCWtIoYBdz64ceflILGpLRMlYORjFrNiBeRvBESrNKhtMFET XUmSRkSaX9Ttx0KxThL9CYYmGwZxIPwpTFQsFhA9JJ86qRdqPI9BSUJzUMWyMS21RQLfWSAgFt2KVr3X FuPqDM0ljj3EUaBhRNQbUegTXgx7TXplNI6OpLPmD9 AhsNQgt0sPXqXiF3MROEA5KGKxYk2IOGXsGfKtGLBvLHlvAO8cUAMhLXMQiUabsnX1SD7KRJ6gkcZrYL 7RTsLvJx2sRu6LVnArZ7ItU4DlRSAcHQWACWhgPT4XMTnlKQ8dYP6Bv4RGhSWqcM0qtl1XOWIpXJFhFi qcbk1DWsywH2Q4oPbuOHVhMaIhYGYKCEtbHW7QNTZh KDK5TNYuJXFsTSDOOgKlV54bYJ6DX4Cxs05cXnN6NMOzNnGhMKqdUN63zFxqspSmvAQfoJnmBI6DTy0+ KAaknqQvYngZJkyvNQWZVyTgHjLCAlToMRRcEECtGLYgQvR9SuSxCq1SSSCnBJCzWQFnRbZuSLClFXGs QNgtQGRoDIOkNVZyPBBhMKDgXK6CGbFcNUBpYpAvZC OpEIRbQNBsbj2IQAPaTKLoHJQ8TyEiHMOyOFRtSYbbDDQuPPZ2OQQ6GFBrZFDnEV9REuIiKPFmCHYtNd poATEpBRBbtz2HUMNxLMOpQvS5AoOhNQYkOQZpOPokMIUtIQW7OAadEOTqLSGkOM7DTiRpZJMvRLR2ZV UyHCHmYKUgtg2DGIHtIURyIYXkXTGwAFGzXUKoITzv ZKPtZZUuRYNeKICwGBWtVH9OWbVlWPCyFES3MioxIRAmKIPjwh1TKQCkCUQgKmtlCYQvDERoFKOhPTbk FAHqYDWrIKD1KWXlHXTcNF0AZrZjOSOzDORrYRobZTEqNCHylh5NRRBiIDQpEEY3XVDlWZAfQSBwLRpi WKNdTTZ1SsloIZYqOBJnCJ2ZMjBnEDMuDZU0YTsjQX SwCIUmfi2LLFFjWPOtGpf7INSoSUWoVYEcMJifLJGqJNR7PgIzJTDaGCJaYC9VPfBdUDZuMae3QcVuBC YuBMVrpi2CGVCaMPTwCkH1BuAhLHDvJADqALaoVGZsSTM1JAT7DUMjFZUcZK3SJwEzAHWfQhv0UrRrEW DkBRSujs1NRQSyDLCnOJt2SuDzJWDiBQWvPMmiONDz OPE7ANSvSKHmSTZvHE8ZKuGhIYWwHdKaThTrOXKtQOMomm1XCJJiNQIfYTF2EyNcFFWoIIElZIxhVYBy QIVpEIYjHTZoNXIbBE0RBjFiVKMyVbE9PmLnUFWdECVoyu6FLUXtCDHrSqEbZBBqKYBxELJoCCsqOGHe FOQpEQVnIOGiSFZtQG1APqDzNCDhGsS5HNBsLRVmLK Houo5EnIFqeTvqvn7SHGnPTx7AcSytFNF7MZkpWe5heHYoPfUmDEQRZf9HdxBdFAFdFCGOTFaoWHLsJJ kfLBQ7JZYxTKHpYaR8TdXtWeMiROMcHbDqZmPmBcN5NbI6UEI7QvHiIAOkXID7XXmgYKL8OUV7BZM2FK GjBKP9Djk+TU4sTTr+Bp1Qy4PssgH5zpKxFNfnTbg2NS3MSENET3HFHr== ID Date Data Source [id number] 01/21/2020 11:21:40 AM [facility] Name Value Range Interpretation Code Description Data Lynn e(s) Supporting Document(s) Leukocytes [#/volume] in Blood by Automated count 4.3 10*3/uL 4-10 [facility] Erythrocytes [#/volume] in Blood by Automated count 3.52 10*6/uL 4.1- 5.3 L [facility] Hemoglobin [Mass/volume] in Blood 12.1 g/dL 11.5-15.5 [facility] Hematocrit [Volume Fraction] of Blood by Automated count 35.4 % 3 6-45 L [facility] Erythrocyte mean corpuscular volume [Entitic volume] b y Automated count 100.4 fL 80-96 H [facility] Erythrocyte mean corpuscular hemoglobin [Entitic mass] by Automated count 34.2 pg 27-33 H [facility] Erythrocyte mean corpuscular hemoglobin concentration [Mass/volume] by Automated count 34.1 g/dL 32.0-36.0 [facility] distribution width [Ratio] by Automated count 14.8 % 11.5-14.5 H [facility] Platelets [#/volume] in Blood by Automated count 242 10*3/uL 150-400 [facility] Differential cell count method - Blood [facility] Neutrophils/100 leukocytes in Blood by Automated count 80 % [facility] Lymphocytes/100 leukocytes in Blood by Automated count 10 % [facility] Monocytes/100 leukocytes in Blood by Automated count 8 % [facility] Eosinophils/100 leukocytes in Blood by Automated count 2 % [facility] Basophils/100 leukocytes in Blood by Automated count 0 % [facility] Neutrophils [#/volume] in Blood by Automated count 3.45 10*3/uL 1.8-7 .0 [facility] Lymphocytes [#/volume] in Blood by Automated count 0.44 10*3/uL 1.2-4 .0 L [facility] Monocytes [#/volume] in Blood by Automated count 0.35 10*3/uL 0-0.8 [facility] Eosinophils [#/volume] in Blood by Automated count 0.09 10*3/uL 0-0.5 [facility] Basophils [#/volume] in Blood by Automated count 0.02 10*3/uL 0-0.2 [facility] Nucleated erythrocytes/100 leukocytes [Ratio] in Blood by Automated count 0 /100{WBCs} 0-0 [facility] ID Date Data Source [id number] 01/21/2020 12:03:55 PM [facility] Name Value Range Interpretation Code Description Data Lynn rce(s) Supporting Document(s) Albumin [Mass/volume] in Serum or Plasma by Bromocresol green (BCG) dye binding method 4.1 g/dL 3.5-5.2 [facility] Bilirubin.total [Mass/volume] in Serum or Plasma 0.4 mg/dL <1.2 [facility] Calcium [Mass/volume] in Serum or Plasma 10.5 mg/dL 8.6-10.0 H [facility] Chloride [Moles/volume] in Serum or Plasma 94 mmol/L 98-107 L [facility] Creatinine [Mass/volume] in Serum or Plasma 1.55 mg/dL 0.50-0.90 H [facility] Glucose [Mass/volume] in Serum or Plasma 163 mg/dL 70-140 H [facility] Alkaline phosphatase [Enzymatic activity/volume] in Serum or Plasma 76 U/L 35-104 [facility] Potassium [Moles/volume] in Serum or Plasma 4.2 mmol/L 3.4-5.1 [facility] Protein [Mass/volume] in Serum or Plasma 7.1 g/dL 6.4-8.3 [facility] Sodium [Moles/volume] in Serum or Plasma 129 mmol/L 136-145 L [facility] Aspartate aminotransferase [Enzymatic activity/volume] in Serum or Plasma 28 U/L <32 [facility] Urea nitrogen [Mass/volume] in Serum or Plasma 20 mg/dL 6-20 [facility] Osmolality of Serum or Plasma by calculation 275 mosm/kg 275-300 [facility] Creatinine/Urea nitrogen [Mass Ratio] in Serum or Plasma 13 [facility] Bicarbonate [Moles/volume] in Serum 22 mmol/L 22-29 [facility] Alanine aminotransferase [Enzymatic activity/volume] in Seru m or Plasma 14 U/L <33 [facility] Anion gap 3 in Serum or Plasma 14 mmol/L 8-15 [facility] Glomerular filtration rate/1.73 sq M pre dicted among non-blacks [Volume Rate/Area] in Serum or Plasma by Creatinine-based formula (MDRD) 38 mL/min/1.73m2 >60 L [facility] Glomerular filtration rate/1.73 sq M pre dicted among blacks [Volume Rate/Area] in Serum or Plasma by Creatinine-based formula (MDRD) 44 mL/min/1.73m2 >60 L [facility] ID Date Data Source [id number] 01/21/2020 12:03:55 PM [facility] Name Value Range Interpretation Code Description Data Lynn rce(s) Supporting Document(s) Thyrotropin [Units/volume] in Serum or Plasma 29.200 u[IU]/mL 0.270-4 .200 H [facility] ID Date Data Source [id number] 01/20/2020 03:54:51 PM [facility] Name Value Range Interpretation Code Description Data Lynn rce(s) Supporting Document(s) Progress Note [facility] RKGZXv4lCzKVWkJd07/XAXxpCMOvm8QgHYxcWQc0YWqlCNAkJ9KzMEK5hZ2jQFP7ZOxSSqPwFdYkTCM7 [facility] [file] ogICAgICAgICAgICAgICAgICAgICAgICAgICAgICAgICAgICAgICAgICAgICAgICAgICAgICAgICAgIC AgICAgICAgICAgICAgICAgICAgICAgICAgICAgICAg ICAgICAgICAgDQogICAgICAgICAgICAgICAgICAgICAgICAgICAgICAgICAgICAgICAgICAgICAgICAg ICAgICAgICAgICAgICAgICAgICAgICAgICAgICAgICAgICAgICAgICAgICAgICAgICAgDQogICAgICAg ICAgICAgICAgICAgICAgICAgICAgICAgICAgICAgIC AgICAgICAgICAgICAgICAgICAgICAgICAgICAgICAgICAgICAgICAgICAgICAgICAgICAgICAgICAgIC AgDQogICAgICAgICAgICAgICAgICAgICAgICAgICAgICAgICAgICAgICAgICAgICAgICAgICAgICAgIC AgICAgICAgICAgICAgICAgICAgICAgICAgICAgICAg ICAgICAgICAgICAgDQogICAgICAgICAgICAgICAgICAgICAgICAgICAgICAgICAgICAgICAgICAgICAg ICAgICAgICAgICAgICAgICAgICAgICAgICAgICAgICAgICAgICAgICAgICAgICAgICAgICAgDQogICAg ICAgICAgICAgICAgICAgICAgICAgICAgICAgICAgIC AgICAgICAgICAgICAgICAgICAgICAgICAgICAgICAgICAgICAgICAgICAgICAgICAgICAgICAgICAgIC AgICAgDQogICAgICAgICAgICAgICAgICAgICAgICAgICAgICAgICAgICAgICAgICAgICAgICAgICAgIC AgICAgICAgICAgICAgICAgICAgICAgICAgICAgICAg ICAgICAgICAgICAgICAgDQogICAgICAgICAgICAgICAgICAgICAgICAgICAgICAgICAgICAgICAgICAg ICAgICAgICAgICAgICAgICAgICAgICAgICAgICAgICAgICAgICAgICAgICAgICAgICAgICAgICAgDQog ICAgICAgICAgICAgICAgICAgICAgICAgICAgICAgIC AgICAgICAgICAgICAgICAgICAgICAgICAgICAgICAgICAgICAgICAgICAgICAgICAgICAgICAgICAgIC AgICAgICAgDQogICAgICAgICAgICAgICAgICAgICAgICAgICAgICAgICAgICAgICAgICAgICAgICAgIC AgICAgICAgICAgICAgICAgICAgICAgICAgICAgICAg ZMWnJNPfAJJcMJBmOKUqLLXcWWw0B6ovRNYoJPUrEY2rRCx0Nv7+ERiEJnOwFFT2ypQybL7XTE5zo2Sc AVajAWXrc9AbZZd0MU7LLAMeJKthAB7YQCmtdh4KGSAyCXEpfALAg3saTaZtEPR8NJYjUsksHV4QSYIi A5gasbWsRZRjAUGNSBchBJBGOWrwVFPOBMNfPUWdHq RxVsAvEAXrVGCdWSJSHAG9IBXhOnWnTGzhKT8Dh3KlcMC8WTn+Dj6KIX6xg3ToSDeqOSLnUY6nzx9API uLAuUiC8GlxbS6JHR2PIXiRw1RDEIcHDKgtUQwGNEiFGSFBqRpG8UmoC03UFAELm4+DQplbmRvYmoNCj S2SLSwb1FqTSq2VR0GEIPzTIz7aKIoMBEqZ5Uos5Jb Hp26DGPiRurgUoYqufAxMOAOXCGdmMSrhallABQxFVXkPSHhXs7qNVGpYTXkTfGyNETQHT6PIHRuCZJn tQUvEIAjGQFCOR4ZFVexYRL0ILYvauAjxJZtMNjwAN1TAKXowjNmGjCnIPPCHPw+Ur0EBG8vw2LxNZcq JbLbQN3dif3TTJsNJeRlG2R9hIOzC4M2HFfmJv9KRL ApEUJsAhOyZYAOHIolRS4YDW6mpsN3KQ9OrRNqVYYqZBEzmUQrTPs4K51skWAuOOrtFQ4QOBM+Antelmo+Pg 9KQERxNPDgNCKmFuOhMPYNAdIpK4AaX2EYe7RnF5YiRI63qVhhopXqJHuhES6IRU3aOSCdREQSMH1AlF HvtS0jfbHnPCSmPXNMAwAoO76ghUXcFOQcTVNxCVEl Ns5QVEDxK1GyzuUoiKfavfMbKSBmTDMCST3VUQycscLrgBCivYdxSQ60cIhiYI3WZl6IHfUhDK0kih5F aQTbZz4JTLSxOw6FQMXgSSJwOWNmFZL1HYVkJwMkXOzhCCFnHGQhEQM2GKTmXTIrCS4OPtOaYUFxKiby TlKyIGWqKIIyqq2GLFRcKDL7IHD7IUQdRHOjZDVtCZ dgWGFiAQKhCAH7AOApPQIaYD8RJvGyXVTxQLXzGmCyRYXhWPVqdg0MOMTbRJIgMDAbOpAoFUTcCUWaXB nrZGIkMXI4LzF3GMMzAUDmTC8RZbQcTMZhQHa3IbjmOUDbCYOqlh5WFZPhEGVsKHf8LYOkTTTqZADwSF yeTWPxEMYoJOtkIAEtXHRuFG6BHoJkCYNeRXJgJfRp RAIaRNMayo9LBOLeMXJaYvG6VdVyFSAqEFUwDUohIXRpTEQ4DLYnPOTcBNLhAC8TTqCaXMSjKXaiXYqk ESAaVRTesr6JGVNhVVRvDOi9AIWgMVLoGPOxDJzsWPJrJMQnDEl4OKNnVUOaEF3OQgQbYGEyEcH4KjWo YRTzIIEuer7CEICaUOXzRFc6BPPtWGAoHCNpDLvuIV GoFMEnTYDfLBZlSXFqIS0WObFfRYVkZjYmUNneCKIeVDPpha6XKYKnWRUuSkY8HTQuTCSrEJWoGDuqIY DkPWC4NwB1VIBaMWTaTQ7YAoUzBTOfAaD6EBWyWTWiZARzfw8FJEOgLZVyRNKbLJUuNQCfTZUpIOkrZP TwSFW1ENO4KPThDNFrOA0NJpHiJLZgDbVeFVHxUMUt USCzrn5BPVVzHRAtYiQ7CnCgXPWiFINvNUysJSJrFQH0AKXgSXGsMKWyCH8AGoAeVQJiXeG0RFanJLDb IPZxpj4XWTMeJUGyGjrnSkLfXZUrMCMhMAvdQSWkMJE0MVOmOSVyBSBcCR6XDiQsLAHhQqyuEWXrQDTp KQWrpj9SYELyYZNnBWkiMLDmFJUeQQJjBAezRJCeZW LjEJy7BLObWJXbFW2WBkLbCHGaEDJvMecbVZQzCCIbxh0FOJSyDFI8UFMhHNRfUIUvQFUbDSu4kaSmoH VxZZw5FU0JF5EcmlZdTgpHPf9Nv787ZRP6VFGaHx2TL9ovVd4pNAAwVWUSKe7BBRm1UWG0FaxsEXHzJ4 H3PSU9WQOdZSDzSKUtRCFqBCEcLtP+KBx5DFBnCjD1 RSW6CZI0BEs4CjQ0GIBaXcY1MBHaLpHrJG2kREVWKn7+PBwalAIwmJppJODIAtCgCgJeWXuvYCXVPv9H ID Date Data Source [id number] 01/19/2020 03:50:39 PM [facility] MR BRAIN WITH AND WITHOUT CONTRAST [id number] FINAL RESULTInterpreted by:Mraietta Mendez MDHISTORY: Status post radiation for brain [...] transverse dimension.In the right aspect of the maryolu there is new focus of enhancement measuring [...] rce(s) Supporting Document(s) ID Date Data Source [id number] 01/19/2020 10:09:38 AM [facility] Name Value Range Interpretation Code Description Data Lynn rce(s) Supporting Document(s) Progress Note [facility] TNDCJi0gJdMXZvFx22/THRgrGQBjf9VmRLmgTOb1JOrdPUBsL1EuBWM9nQ1bJWC4KBzMFzPjEuSjRYFk lbm [file] DxA0NQOvYLAmB6VuGHNpCVW+VC6dPOs+Vi2Wd4BymeP4lmVuUChrQCWyMh9SQYRMK6MGRr== ID Date Data Source [id number] 01/14/2020 10:31:55 AM EST [facility] Name Value Range Interpretation Code Description Data Lynn rce(s) Supporting Document(s) Progress Note [facility] NIXXNv8jRqVZAxOn45/FDYwlMEJje7SiFTfpQIy4PPdjKSFpD8WfOPM0bQ2nEIE4BIyFGzVlSbWeVGV8 lbm [file] NsDVMmUPEeW3E2CAz4LqJ0PgO6KHC+JF7yIBx+Zk9Po9BfquF7vrUwRSdlBNK3Fx3HQWGRH7MIBn== ID Date Data Source [id number] 01/14/2020 10:30:15 AM EST [facility] Name Value Range Interpretation Code Description Data Lynn rce(s) Supporting Document(s) Progress Note [facility] YUIRAa4pWuXSMcJn25/LTUvcUUCft7UdYHdtWAx8RBlbEQTeQ5MrYZB5vL6tJBY8AUfHEiCvLzBwYUV3 lbm [file] kfbBrc0kVPz4rovOCpGYe+T2ZSpl0cRPQ8k9Ix86r42qD2+Z23s/mymOQiW6hJoLni4Q+Bobbin Inspector+/q+Ny5+ [file] E/qdktNOmHChyas1LGXHO5t8j1dVif1N4L3nu7YaTAIg+jM6LvXQFfm+EL3+/Erma/6gn7aCVxgcUf1VO S5l0PUwIggPSl8m976BzzwC5SxupnA90wojEeczMcojq46UEEb/6etVkdwK7K+9XBIYXCyda329zKsxd 8fwM86lZD1jO3dzvD7mRqW62vbgrOLOCcmIAR0FEMC FZZpBFov4EXB9L42ftjm0AVIjRpq8X13sfKZTqzqkl8DeHVPAgeM3GsVGIYtQ4IOZYWIvZqrrVHIQMN4 XRRcjYVXkClRM5oM30Oabbi2fJyo/+EV6w2DYMVNKDH8d88WRWaOQkBbiDCbS993TgbqZYsJN5UCm6Zy cSyfIQvTrZfCjfM51ufw5BAbQjNlN0YUUIrSvOAif2 9YxEOkTPiXOhj22kmApa/José Miguel/9SHuvbx7OFY5QMCBiLBeYn9ytiTMPVLHRqxKtVqHsd2UsAnW21p8HNX [file] ICAgICAgICAgICAgICAgICAgICAgICAgICAgICAgICAgICAgICAgICAgICAgICAgICAgICAgICAgICAg ICAgICAgICAgICANCiAgICAgICAgICAgICAgICAgIC AgICAgICAgICAgICAgICAgICAgICAgICAgICAgICAgICAgICAgICAgICAgICAgICAgICAgICAgICAgIC AgICAgICAgICAgICAgICAgICAgICANCiAgICAgICAgICAgICAgICAgICAgICAgICAgICAgICAgICAgIC AgICAgICAgICAgICAgICAgICAgICAgICAgICAgICAg ICAgICAgICAgICAgICAgICAgICAgICAgICAgICAgICANCiAgICAgICAgICAgICAgICAgICAgICAgICAg ICAgICAgICAgICAgICAgICAgICAgICAgICAgICAgICAgICAgICAgICAgICAgICAgICAgICAgICAgICAg ICAgICAgICAgICAgICANCiAgICAgICAgICAgICAgIC AgICAgICAgICAgICAgICAgICAgICAgICAgICAgICAgICAgICAgICAgICAgICAgICAgICAgICAgICAgIC AgICAgICAgICAgICAgICAgICAgICAgICANCiAgICAgICAgICAgICAgICAgICAgICAgICAgICAgICAgIC AgICAgICAgICAgICAgICAgICAgICAgICAgICAgICAg ICAgICAgICAgICAgICAgICAgICAgICAgICAgICAgICAgICANCiAgICAgICAgICAgICAgICAgICAgICAg ICAgICAgICAgICAgICAgICAgICAgICAgICAgICAgICAgICAgICAgICAgICAgICAgICAgICAgICAgICAg ICAgICAgICAgICAgICAgICANCiAgICAgICAgICAgIC AgICAgICAgICAgICAgICAgICAgICAgICAgICAgICAgICAgICAgICAgICAgICAgICAgICAgICAgICAgIC AgICAgICAgICAgICAgICAgICAgICAgICAgICANCiAgICAgICAgICAgICAgICAgICAgICAgICAgICAgIC AgICAgICAgICAgICAgICAgICAgICAgICAgICAgICAg ICAgICAgICAgICAgICAgICAgICAgICAgICAgICAgICAgICAgICANCiAgICAgICAgICAgICAgICAgICAg ICAgICAgICAgICAgICAgICAgICAgICAgICAgICAgICAgICAgICAgICAgICAgICAgICAgICAgICAgICAg ICAgICAgICAgICAgICAgICAgICANCjw/kSJsP6fbcO NjjiR4A5xzRb5QBm7ULA0qa2MmPWDoFVvputYtBbkBOfXuQYQmKuwRWjw5WWrbDD2UoSXwM0PnR2FoBV mhRL7TYIVgDQWujSQqBNErRFEhPcP9CNClDTilFA6XgIMoUDbqPIGaAZQaFvOfWCHnOAHtNVRwDRKyCB HDZGVqMIZrXyVxQMUjWLNeQN7VZERmY821fbCyBy0D Ct5KPuKnNC6inm2HKayjKSRiBwrXInf8VYmyGL8MdPVcpXJrUXMfNMOEJhWxZ4pum7McQhAzIPQMHKtc NU6Pd7UbsPWhXOb+Pl3PTM9dl6RuYEiwRCZuUT2tjt5FBGdVJmRfQ1NarZbpMZCpr0dqEPSzVN4rdMWq QNT8IDAkjRIgWQGiCyFhkDZaGVYICNSlsDXcFC4mRg 8iHTVvYXYwMhCwOFUIAB7JIAKvRJQtwSFtPNNnPFLDKH9SMZizZYW0UYEyinHamHQxOTrdFF4JYRWbie QgMjkgMCBSDQo+Fc6MUA4ug7EjWQwyTEEsXD4uwb7OFSdFFqWbD0V3qHPqO8C5WRknTw3GNIUgJUEzDx iqRQDSHUroUS8ECV5pxcF9VW9FuFDrFJNlVWGimIGs AMw7F47gfZHqDNhoPX3KGSA+Antelmo+Nf4IUQKqMFOrBLPqDcRtCOLSAxJzM0BzE2RIp9XlA3RrSO43aDby jlLmFEahXA0OKR8fLMXhFIPJJL5IhODeeJ0jlyOlHPKwUWPPEmZvH52ydETxCOMeBLH7GGHuHk7CCZGe M5PanfZmqIizkwCfUUWaPTUOZA6FOTeiqySjiXLoyD fcXA83fGukIG7AOo6QMlDmMU6pgu0OlNYbJx1VDLFfCr6CGKEyGHRbFBVjBUP7QWPcNcNoGOkmAAIzAV YfWTB0WQAoYLSjIN6EXoQqWRXeSqN0XgSzLUAlFPAwmo3ENQMjJOVbDnD5HLIjLHLnFVDxVWjoKOSqRY GhAGZ8YWHrQSPsNL7GKkHsQMFnVZF3VTOiRNJzPJNj qz2AYPQfWEPmAbi4VRWnDTOkCVYbVWjgZBRmAHF9Snr2UJEsLEThOZ6SKqUkWUVjWUE2NDYcTMYlLXXg lh4GUUMpJTPvWNB7DtKoNDUrXWUwCZozFASaSBBkLlPlYKWtXKEdSQ2NTzBtAIBnNQR6DIGcLZDkCANg uj8AGAMfXEEhZgs0AKYkVOPcCWRjUEhjNYDcQNL4DX V4NCKiQGLlCK3BGjBvQKNwMKi9NMZxASQvYCWlyc8IJEDsIWUnUQP4LFReOYOrYPNwYTifRTJvCZD9WR VgUADkKHKeLW8TCvYuGYMhEiT4WEGuLLIdKNDuqq2PQJEfIZXrKYUpXRWfGDPdTZHfFGycBOApFZGfGc apUGDyRIUvAK1OKdYrUYQaEgH2DHImCTGkBRNsur6H USQfZZPkYPc4DdYmZRRvLQRdBSqjZRNxOJQxIYDxEYPhOGSgCS0GDmOdPKOyVbC0CoUzHKPlCBBujo4I VURyUFIvUvx0VVEzHROxWMNkCAggVYCzIPN1XNW7AKHlROUxDE9GYtQwGXQvZbDrLTVfEPUvVJAxfd7Q LPDcQDPfINMmBFJsNKTkUJLgFZuuWUQgSQF3CEYcWY OyABVxGA0KYvFvZKSzJfAfIpGnDFGeBQJkqh8TAFWqRGTaRpY4OlOpLWEgMSAdYBtkKOHrMRJ9SFduAJ NtWQCnRE3ZToVuMMbgFTTUZzd5MZgyB0h8CSKpTa3XU3Bva6LiGdZbKVALNJidGQ6ytnSwOJZbXt2CJ0 pCDlfsNLSbOXQdCDVsUHmiOQHaD4R6D6U2Hwj2IbKr D5E2Xb8lHYT5KSFhZfEgQuV0NJVePwIuXLw5YDVcOHh9BYNrWmSuSoIhRP0LUu0HRcP9LXL9vPNmHv4M RsB3GbuWDbZcDA8HXIs= ID Date Data Source [id number] 01/13/2020 08:47:[address] [facility] [address] THORAX WITH CONTRAST [id number] RESUL TInterpreted by:Farooq Otero MDINDICATION: Follow-up extensive [...] rce(s) Supporting Document(s) ID Date Data Source [id number] 01/12/2020 06:55:41 PM [facility] NM BONE SCAN IMAGING WHOLE BODY [id number] AL RESULTInterpreted by:Veronique Olson MDCLINICAL INDICATION: 54-year-old [...] rce(s) Supporting Document(s) ID Date Data Source [id number] 01/12/2020 02:34:[address] [facility] [address] ABDOMEN PELVIS WITH CONTRAST [id number] AL RESULTInterpreted by:VAHE CuiROCEDURE INFORMATION: Exam: CT [...] 2. CT ABDOMEN PELVI S WITH CONTRAST [id number] 09/26/2019 11:47:13 AM FINDINGS: Heart: Small stable [...] rce(s) Supporting Document(s) ID Date Data Source [id number] 01/14/2020 01:28:47 PM [facility] Name Value Range Interpretation Code Description Data Lynn rce(s) Supporting Document(s) Creatinine [Mass/volume] in Blood 1.4 mg/dL 0.50-0.90 [facility] ID Date Data Source [id number] 01/02/2020 01:06:47 PM [facility] Name Value Range Interpretation Code Description Data Lynn rce(s) Supporting Document(s) Leukocytes [#/volume] in Blood by Automated count 9.9 10*3/uL 4-10 [facility] Erythrocytes [#/volume] in Blood by Automated count 3.66 10*6/uL 4.1- 5.3 L [facility] Hemoglobin [Mass/volume] in Blood 12.5 g/dL 11.5-15.5 [facility] Hematocrit [Volume Fraction] of Blood by Automated count 36.5 % 3 6-45 [facility] Erythrocyte mean corpuscular volume [Entitic volume] by Auto mated count 99.7 fL 80-96 H [facility] Erythrocyte mean corpuscular hemoglobin [Entitic mass] by Automated count 34.2 pg 27-33 H [facility] Erythrocyte mean corpuscular hemoglobin concentration [Mass/volume] by Automated count 34.3 g/dL 32.0-36.0 [facility] width [Ratio] by Automated count 14.8 % 11.5-14.5 [facility] Platelets [#/volume] in Blood by Automated count 251 10*3/uL 150-400 [facility] Differential cell count method - Blood [facility] Neutrophils/100 leukocytes in Blood by Automated count 62 % [facility] Lymphocytes/100 leukocytes in Blood by Automated count 29 % [facility] Monocytes/100 leukocytes in Blood by Automated count 7 % [facility] Eosinophils/100 leukocytes in Blood by Automated count 1 % [facility] Basophils/100 leukocytes in Blood by Automated count 1 % [facility] Neutrophils [#/volume] in Blood by Automated count 6.14 10*3/uL 1.8-7 .0 [facility] Lymphocytes [#/volume] in Blood by Automated count 2.92 10*3/uL 1.2-4 .0 [facility] Monocytes [#/volume] in Blood by Automated count 0.69 10*3/uL 0-0.8 [facility] Eosinophils [#/volume] in Blood by Automated count 0.11 10*3/uL 0-0.5 [facility] Basophils [#/volume] in Blood by Automated count 0.07 10*3/uL 0-0.2 [facility] Nucleated erythrocytes/100 leukocytes [Ratio] in Blood by Automated count 0 /100{WBCs} 0-0 [facility] ID Date Data Source [id number] 01/02/2020 02:40:09 PM [facility] Name Value Range Interpretation Code Description Data Lynn rce(s) Supporting Document(s) Albumin [Mass/volume] in Serum or Plasma by Bromocresol green (BCG) dye binding method 4.4 g/dL [facility] Bil[facility].total [Mass/volume] in Serum or Plasma 0.4 mg/dL <1.2 [facility] Calcium [Mass/volume] in Serum or Plasma 10.6 mg/dL 8.6-10.0 H [facility] Chloride [Moles/volume] in Serum or Plasma 95 mmol/L 98-107 L [facility] Creatinine [Mass/volume] in Serum or Plasma 1.60 mg/dL 0.50-0.90 H [facility] Glucose [Mass/volume] in Serum or Plasma 150 mg/dL 70-140 H [facility] Alkaline phosphatase [Enzymatic activity/volume] in Serum or Plasma 64 U/L 35-104 [facility] Potassium [Moles/volume] in Serum or Plasma 4.7 mmol/L 3.4-5.1 [facility] Protein [Mass/volume] in Serum or Plasma 7.0 g/dL 6.4-8.3 [facility] Sodium [Moles/volume] in Serum or Plasma 131 mmol/L 136-145 L [facility] Aspartate aminotransferase [Enzymatic activity/volume] in Serum or Plasma 24 U/L <32 [facility] Urea nitrogen [Mass/volume] in Serum or Plasma 22 mg/dL 6-20 H [facility] Osmolality of Serum or Plasma by calculation 279 mosm/kg 275-300 [facility] Creatinine/Urea nitrogen [Mass Ratio] in Serum or Plasma 14 [facility] Bicarbonate [Moles/volume] in Serum 25 mmol/L 22-29 [facility] Alanine aminotransferase [Enzymatic activity/volume] in Seru m or Plasma 21 U/L <33 [facility] Anion gap 3 in Serum or Plasma 11 mmol/L 8-15 [facility] Glomerular filtration rate/1.73 sq M pre dicted among non-blacks [Volume Rate/Area] in Serum or Plasma by Creatinine-based formula (MDRD) 36 mL/min/1.73m2 >60 L [facility] Glomerular filtration rate/1.73 sq M pre dicted among blacks [Volume Rate/Area] in Serum or Plasma by Creatinine-based formula (MDRD) 42 mL/min/1.73m2 >60 L [facility] ID Date Data Source [id number] 01/02/2020 02:40:09 PM [facility] Name Value Range Interpretation Code Description Data Lynn rce(s) Supporting Document(s) Thyrotropin [Units/volume] in Serum or Plasma 9.160 u[IU]/mL 0.270-4. 200 H [facility] ID Date Data Source [id number] 12/25/2019 03:33:46 PM EDT [facility] Name Value Range Interpretation Code Description Data Lynn rce(s) Supporting Document(s) Progress Note [facility] OEGYSx6mVoEQYhHw48/DHRafBMIbt4ThBLbnLVf0YUioZRSrC8AtRQM4pJ7jJES5SEfPVzBqMhFoSRF5 [facility] [file] ICAgICAgICAgICAgICAgICAgICAgICAgICAgICAgIC AgICAgICAgICAgICAgICAgDQogICAgICAgICAgICAgICAgICAgICAgICAgICAgICAgICAgICAgICAgIC AgICAgICAgICAgICAgICAgICAgICAgICAgICAgICAgICAgICAgICAgICAgICAgICAgICAgICAgICAgDQ ogICAgICAgICAgICAgICAgICAgICAgICAgICAgICAg ICAgICAgICAgICAgICAgICAgICAgICAgICAgICAgICAgICAgICAgICAgICAgICAgICAgICAgICAgICAg ICAgICAgICAgDQogICAgICAgICAgICAgICAgICAgICAgICAgICAgICAgICAgICAgICAgICAgICAgICAg ICAgICAgICAgICAgICAgICAgICAgICAgICAgICAgIC AgICAgICAgICAgICAgICAgICAgDQogICAgICAgICAgICAgICAgICAgICAgICAgICAgICAgICAgICAgIC AgICAgICAgICAgICAgICAgICAgICAgICAgICAgICAgICAgICAgICAgICAgICAgICAgICAgICAgICAgIC AgDQogICAgICAgICAgICAgICAgICAgICAgICAgICAg ICAgICAgICAgICAgICAgICAgICAgICAgICAgICAgICAgICAgICAgICAgICAgICAgICAgICAgICAgICAg ICAgICAgICAgICAgDQogICAgICAgICAgICAgICAgICAgICAgICAgICAgICAgICAgICAgICAgICAgICAg ICAgICAgICAgICAgICAgICAgICAgICAgICAgICAgIC AgICAgICAgICAgICAgICAgICAgICAgDQogICAgICAgICAgICAgICAgICAgICAgICAgICAgICAgICAgIC AgICAgICAgICAgICAgICAgICAgICAgICAgICAgICAgICAgICAgICAgICAgICAgICAgICAgICAgICAgIC AgICAgDQogICAgICAgICAgICAgICAgICAgICAgICAg ICAgICAgICAgICAgICAgICAgICAgICAgICAgICAgICAgICAgICAgICAgICAgICAgICAgICAgICAgICAg ICAgICAgICAgICAgICAgDQogICAgICAgICAgICAgICAgICAgICAgICAgICAgICAgICAgICAgICAgICAg ICAgICAgICAgICAgICAgICAgICAgICAgICAgICAgIC AdPEUtADTfQJHgPUKvVROzEEToCCYwOSFxVHt7E3geRJSwSNFpGI1oQTx3Cr4+DVmGZyViWPY9etFubP 8GZI7kg0NxIJjlFKQyc6DjMZp6AM2IWGOiPHucNO3VFKebxi3LYLEpGRJboDNGe5qaMkXqWVF0QAWpMp xqIY4DRGLvZ0nsrwLoYTSaPWSRBM7YDhXsJ8CctP08 IDENCj4+UUygjtEtMemUVxC8ECBau2VaUXk9RT2CQLQtJzbzx3UiHuYcLAINGBlzKR5IJQO5CCWlSAHr Uq7VSTYtA013mjVqIM1UKw1VFvFpLX3aqm4RSfXsQVIrKkaMXum1LAdvZX9IuOKmDBpWup4vydWtvfDI t9YiucHduSHYUGCzJQUcKMldVH9eCLV6NHUOQTDjuO UsRW4dFI3qFPWzXODcTcCfJPXRAE9DEFMoLOFqkMMsBENcAZPENB6ENPduKJL0SQTfjbPjqYHmHFmtQD 9QYXJlbnQgMTkgMCBSDQo+Jm3HPR0kb2ZzAGjeAMDlGO9ncx1FZKkHKkVgE8P7sHPmJ8Z9JVciYa0HFL VcEWDrUJpxSAKHWYnnTF2LDP1zmpY6SL3ZnDXxWFXe OZUypUMiUEa5H90ekPZyGFyzGE2PHWT+Antelmo+Lc3IEMCsJNWkYCRgBqJgMZQEQfLnE8SrE4JEr2PkP0Yb TW92dThgwlYyNSbuLY5QLK6vBKSqRDYSER5CsYDpvT5jpjJsLLXgNYOWUpHeE40gqJTdZENvBNK8HRWh Uu6NFXQyG4OdmtRgbOvagmPlQVYaQPYFVH4ZOVnwvc NpuWEofAijBU21rSgcFN4NOa7ABkFyMP4qji5NaQZmGf1YWOSyWd6MYSWsTXFeARRrFCW1HITiJvLuCN plHWUfZBRfEAG1VFNnYSJyWR4CAiUlIOSoSLN9ZPHjMWOeAADkux5QVKStWRXsSYutUHEmNYCeHUYwWI xzERCnJZBzIPG6LPAnTKYbLX0LRoDgXCLiHVC5BHQe AKHbMPBuyo9FPVYiXTBbXhTzXuIbLQNbPXZpYTblUBWdQPHjPMw8YPCyRRLjAM5EGfBkLRMnVYBtEmCb HYLwDOVsss1BFGIiHIFxZvK5ZLFlTKNrDKKjHMuySGXbQZC0JqG5BIJhWDFoBW5YKyZwKSGfPHW6GNDx IBJxPAYegm1DWOYfSOFkDJY5ECOsJAVtHJVuMRouLV NmREJ3JJMlOWNxJLTzSI4JUuXtBEWkDUViVwyiNXAaAZMzgi7DPEEfNGZvGwL6QCAkSKYzRZHtYBzkAQ UqNJQ4QWY3RRKiSJVdQD4AAzJjICNoVZH4KfVqWSRfKPZaue8DFHCeOTNnNnZ7CDXlBXUwRLUeDVjqNK YeFKP7LKHjWOLbAXPyDU7ANvXpHXXlZIw9FrTeZWUo CISlis4SDFQtJPKnUIQcUAYhZBXbDYVvDPa0aiQbrHFkJYp8SH6CJ4EiwzEcAoGPIr2An984FDUoQHUu Ou8ZC1gxFl5wJDEtJEYYBg7WTNo9LlLhMHZpTUt6BDKjKHGrNRWlVqiqAQzvIJI6RgBiX8F+IDxmYTE1 KUPwQiRkRpJ4VGX7VvOcZOF9QACfXEFyPKMeAv7z XSANCj4+ESsjhGOetVmvUKSVHkJ2MiZ2IWajEAXIVl6A ID Date Data Source [id number] 12/25/2019 01:26:56 PM EDT [facility] Name Value Range Interpretation Code Description Data Lynn rce(s) Supporting Document(s) Progress Note [facility] CHDRMa9oYlTNMnAy11/IEKkbZEHjn2NcKHlmWJe7RDniNKKpD7WqVPM2iE3xNVB0ANhOAuGoYmNtLEW8 lbm [file] AgICAgICAgICAgICAgICAgICAgICAgICAgICAgICAgICAgICAgICAgICAgICAgICAgICAgICAgICAgIC AgICAgICAgICAgICAgICAgICAgICAgICAgICAgICAg ICAgICANCiAgICAgICAgICAgICAgICAgICAgICAgICAgICAgICAgICAgICAgICAgICAgICAgICAgICAg ICAgICAgICAgICAgICAgICAgICAgICAgICAgICAgICAgICAgICAgICAgICAgICANCiAgICAgICAgICAg ICAgICAgICAgICAgICAgICAgICAgICAgICAgICAgIC AgICAgICAgICAgICAgICAgICAgICAgICAgICAgICAgICAgICAgICAgICAgICAgICAgICAgICAgICANCi AgICAgICAgICAgICAgICAgICAgICAgICAgICAgICAgICAgICAgICAgICAgICAgICAgICAgICAgICAgIC AgICAgICAgICAgICAgICAgICAgICAgICAgICAgICAg ICAgICAgICANCiAgICAgICAgICAgICAgICAgICAgICAgICAgICAgICAgICAgICAgICAgICAgICAgICAg ICAgICAgICAgICAgICAgICAgICAgICAgICAgICAgICAgICAgICAgICAgICAgICAgICANCiAgICAgICAg ICAgICAgICAgICAgICAgICAgICAgICAgICAgICAgIC AgICAgICAgICAgICAgICAgICAgICAgICAgICAgICAgICAgICAgICAgICAgICAgICAgICAgICAgICAgIC ANCiAgICAgICAgICAgICAgICAgICAgICAgICAgICAgICAgICAgICAgICAgICAgICAgICAgICAgICAgIC AgICAgICAgICAgICAgICAgICAgICAgICAgICAgICAg ICAgICAgICAgICANCiAgICAgICAgICAgICAgICAgICAgICAgICAgICAgICAgICAgICAgICAgICAgICAg ICAgICAgICAgICAgICAgICAgICAgICAgICAgICAgICAgICAgICAgICAgICAgICAgICAgICANCiAgICAg ICAgICAgICAgICAgICAgICAgICAgICAgICAgICAgIC AgICAgICAgICAgICAgICAgICAgICAgICAgICAgICAgICAgICAgICAgICAgICAgICAgICAgICAgICAgIC AgICANCiAgICAgICAgICAgICAgICAgICAgICAgICAgICAgICAgICAgICAgICAgICAgICAgICAgICAgIC AgICAgICAgICAgICAgICAgICAgICAgICAgICAgICAg ICAgICAgICAgICAgICANCjw/pLMdI7lsbQAazyW6O7tdFe1ZMv0OOC6qe5YpMPYlRJwdsuSxGhqIMtYm VSWbGwaFJgt9XGwlFP4WxDKoH8IlX1JuYRrtCP7ERIZdSZSwpRIjLSNhCQFxRoM6NGEsLIekHY2JaORw YEtfFFTsTQNxAhWtYNCqBMLuJPIjLKQuFZRMGW1SEk EuJ2RdaU15ZNRBPk0+YGhhffVgVspURqXrHAQcx4XkFQp0SU8ZGZWnKjdzj7ZwQdDaMFCWRBaeFF1VTA J4ARLkHFNiEi1TDVMwF514tsZlVB5FZn4HFqLfBH2ojb0FFnSjRHHqKrdDGyd1LRuiTA5OmMCpTGxBmz 5lchYmgqHVr3XvojInvSOWY227tYFYMOZhq0pePVJR NMPckFUxDZ5nJT6fZLRmQXNiOiViDBWVIK2YSVGjNVQxzIYlOLXrHFGFWU3MJSvpZZU3PPHuqwQzoSIz XGxqQV4UGMRapvDdWoXlXJZUEXt+Se9WME9os5BsXXlsPfIeUU1pla0HHPhOAaEkA9L5gKLoX9G5SOyo Bi7QJVKxNTDnUroyOYXIUXwfWU4QQS0nhdW2YU3XyM ByLROvWYGxtLIbYDz2C30unNCdUTokXJ2YLEE+Antelmo+Mi0MFSOuNFKyYOEtLyHfPOSVNeEdH8GmR3UQh6 KtU5JhXG47dKgbkcYqDFjbKO1UYI2pNGEdMDNAMM0JrYPrfM6iwqIzVKGoPLOWIaSdC51tfUGtTJMrTI KeENLlDx4NLOLiI8TkcmAsbMmmdxZwTSAmDOBPPY6H NZmjmkWrhCZcpMnyAR31kRhyZJ5OEg9YFvHyAK7wtv1JbECxYm3GLIGpYJ2OXNTrEMZmOOUwPMZ4EKLx AlKuVBuwAOXzEEZqEPI0TODfMZGjMY2IUnFwFBJqOxJeKkXdNBCgSQCgzl7PLDTuVXGdGKk1VpOzOYRy QQGkPDtxHZZuGPGlHWT8PKWrZFLjUA1IQiCmCFMpNN YiWRtmKGWlYXVvjg1ZHSTuJWQpRWHuPwAlLSDoTLDeFMxuEVRbMOO9FAlwIFImZVGuBL3ALnKyHWMiXM i3AzWePQIeFELwst8ZHWUeTYWeWOzpHHNmUFLyPGCrORouVHJpHUVpPZGbDIRwEKEgTY0IRtIdZCDfXW OcYzBlTHJtNGCosd7GJOQvZZKpTqOdCRNzJVUsIRJy GNvwOEXeSNKxEim0OCVyDHUiEN3ZArHyYZDhZUL9WPAzVUNgSJPvng0ODHHgMTTqSum2EPHjHBEmJVXs ODqwNIBnCSO9MfP8PYIjTLUsGZ1ANzJfVIQoFAR9RcFaTAUrWAIbyb2EUDNfMXLqTXTgYYFrZPXzESQd OHgdOFKkAGZ1BCQ9XXEuQDNgMR9KApBmEIRhDjD8Ys HpULZkLNFewl0PRNDjVQWoCyP8HvLxTSLrEORcWWpqFNMiIAL4NpXmZGUcVTQcOJ6TOkAyMICnLtb1Ur oaXWLhZOMjrn6AFUAjZQGvKPEmJJTbFVQlKEPoNUmnYJQhGYA9LhNaFVBdUGVkLU1TOzTnEQZpLaq1VC LnXWWkJSJsch0ZWXHiXBSaBMwuKUHbINOuRJHjTRpu HNMjAIW2AIZcKWCkHCMkOM1LZlGvJEFeYrQwCZZiXBFuHHVzxg8UOPRdFWYtVQQmPlHtXWSpLUFoDWpo OKWvULYhPJflFJVtBNTbZZ8WBsUbUYXkAdUsOwXiNVVkFEXbya9CANZwQQVyYqXeSZSiXDRaKVMmVUq4 bbPskXIuLXr8KL9HN3FitxQjUjLNDf9Rc171MZEaKF SdTx0QL8fjOs5tKYDaCGGNEe1KZQs8FwB8MVJtQnQgSKB3F1FqXSgrUKrwNRGsOtRyZPCvKPM+IDw2MT EvHqT7WTVqXgy1M9BxF4B0EJKiGCJjWoJvBdW3SN6uNKVPTp4+JOjbwNBpoKnkJIZEKgIlBYK8HCjdBM VPRg0K ID Date Data Source [id number] 12/25/2019 12:34:42 PM EDT [facility] Name Value Range Interpretation Code Description Data Lynn rce(s) Supporting Document(s) Leukocytes [#/volume] in Blood by Automated count 9.1 10*3/uL 4-10 [facility] Erythrocytes [#/volume] in Blood by Automated count 3.77 10*6/uL 4.1- 5.3 L [facility] Hemoglobin [Mass/volume] in Blood 12.7 g/dL 11.5-15.5 [facility] Hematocrit [Volume Fraction] of Blood by Automated count 37.3 % 3 6-45 [facility] Erythrocyte mean corpuscular volume [Entitic volume] by Auto mated count 99.0 fL 80-96 H [facility] Erythrocyte mean corpuscular hemoglobin [Entitic mass] by Automated count 33.8 pg 27-33 H [facility] Erythrocyte mean corpuscular hemoglobin concentration [Mass/volume] by Automated count 34.2 g/dL 32.0-36.0 [facility] distribution width [Ratio] by Automated count 14.7 % 11.5-14.5 H [facility] Platelets [#/volume] in Blood by Automated count 225 10*3/uL 150-400 [facility] Differential cell count method - Blood [facility] Neutrophils/100 leukocytes in Blood by Automated count 63 % [facility] Lymphocytes/100 leukocytes in Blood by Automated count 29 % [facility] Monocytes/100 leukocytes in Blood by Automated count 6 % [facility] Eosinophils/100 leukocytes in Blood by Automated count 1 % [facility] Basophils/100 leukocytes in Blood by Automated count 1 % [facility] Neutrophils [#/volume] in Blood by Automated count 5.64 10*3/uL 1.8-7 .0 [facility] Lymphocytes [#/volume] in Blood by Automated count 2.64 10*3/uL 1.2-4 .0 [facility] Monocytes [#/volume] in Blood by Automated count 0.58 10*3/uL 0-0.8 [facility] Eosinophils [#/volume] in Blood by Automated count 0.13 10*3/uL 0-0.5 [facility] Basophils [#/volume] in Blood by Automated count 0.08 10*3/uL 0-0.2 [facility] Nucleated erythrocytes/100 leukocytes [Ratio] in Blood by Automated count 0 /100{WBCs} 0-0 [facility] ID Date Data Source [id number] 12/25/2019 01:40:56 PM EDT [facility] Name Value Range Interpretation Code Description Data Lynn rce(s) Supporting Document(s) Albumin [Mass/volume] in Serum or Plasma by Bromocresol green (BCG) dye binding method 4.2 g/dL 3.5-5.2 [facility] Bilirubin.total [Mass/volume] in Serum or Plasma 0.4 mg/dL <1.2 [facility] Calcium [Mass/volume] in Serum or Plasma 9.9 mg/dL 8.6-10.0 [facility] Chloride [Moles/volume] in Serum or Plasma 99 mmol/L 98-107 [facility] Creatinine [Mass/volume] in Serum or Plasma 1.59 mg/dL 0.50-0.90 H [facility] Glucose [Mass/volume] in Serum or Plasma 159 mg/dL 70-140 H [facility] Alkaline phosphatase [Enzymatic activity/volume] in Serum or Plasma 64 U/L 35-104 [facility] Potassium [Moles/volume] in Serum or Plasma 4.6 mmol/L 3.4-5.1 [facility] Protein [Mass/volume] in Serum or Plasma 6.9 g/dL 6.4-8.3 [facility] Sodium [Moles/volume] in Serum or Plasma 135 mmol/L 136-145 L [facility] Aspartate aminotransferase [Enzymatic activity/volume] in Serum or Plasma 24 U/L <32 [facility] Urea nitrogen [Mass/volume] in Serum or Plasma 22 mg/dL 6-20 H [facility] Osmolality of Serum or Plasma by calculation 287 mosm/kg 275-300 [facility] Creatinine/Urea nitrogen [Mass Ratio] in Serum or Plasma 14 [facility] Bicarbonate [Moles/volume] in Serum 22 mmol/L 22-29 [facility] Alanine aminotransferase [Enzymatic activity/volume] in Seru m or Plasma 22 U/L <33 [facility] Anion gap 3 in Serum or Plasma 14 mmol/L 8-15 [facility] Glomerular filtration rate/1.73 sq M pre dicted among non-blacks [Volume Rate/Area] in Serum or Plasma by Creatinine-based formula (MDRD) 36 mL/min/1.73m2 >60 L [facility] Glomerular filtration rate/1.73 sq M pre dicted among blacks [Volume Rate/Area] in Serum or Plasma by Creatinine-based formula (MDRD) 42 mL/min/1.73m2 >60 L [facility] ID Date Data Source [id number] 12/25/2019 01:40:56 PM EDT [facility] Name Value Range Interpretation Code Description Data Lynn rce(s) Supporting Document(s) Thyrotropin [Units/volume] in Serum or Plasma 21.060 u[IU]/mL 0.270-4 .200 H [facility] ID Date Data Source [id number] 12/04/2019 12:26:02 PM [facility] Name Value Range Interpretation Code Description Data Lynn rce(s) Supporting Document(s) Progress Note [facility] FEUIQy8dUdNOXhOh19/UOMluYQBmq9GhFRlnECq5AObgJMDtM4LoEJD4qZ4oGGG5SHxAQtKzQeZpFLC2 lbm [file] mQQmDCXgHKIF5mYoRtKjRLASyhM16f3czky7Vr2hibR7VR/jWSjTP/r8NoqK/N0X0f/Margin Analyst/xtu9wk49CQ [file] AgICAgICAgICAgICAgICAgICAgICAgICAgICAgICAg ICAgICAgICAgICAgICAgICAgICAgICAgICAgDQogICAgICAgICAgICAgICAgICAgICAgICAgICAgICAg ICAgICAgICAgICAgICAgICAgICAgICAgICAgICAgICAgICAgICAgICAgICAgICAgICAgICAgICAgICAg ICAgICAgICAgDQogICAgICAgICAgICAgICAgICAgIC AgICAgICAgICAgICAgICAgICAgICAgICAgICAgICAgICAgICAgICAgICAgICAgICAgICAgICAgICAgIC AgICAgICAgICAgICAgICAgICAgDQogICAgICAgICAgICAgICAgICAgICAgICAgICAgICAgICAgICAgIC AgICAgICAgICAgICAgICAgICAgICAgICAgICAgICAg ICAgICAgICAgICAgICAgICAgICAgICAgICAgICAgDQogICAgICAgICAgICAgICAgICAgICAgICAgICAg ICAgICAgICAgICAgICAgICAgICAgICAgICAgICAgICAgICAgICAgICAgICAgICAgICAgICAgICAgICAg ICAgICAgICAgICAgDQogICAgICAgICAgICAgICAgIC AgICAgICAgICAgICAgICAgICAgICAgICAgICAgICAgICAgICAgICAgICAgICAgICAgICAgICAgICAgIC AgICAgICAgICAgICAgICAgICAgICAgDQogICAgICAgICAgICAgICAgICAgICAgICAgICAgICAgICAgIC AgICAgICAgICAgICAgICAgICAgICAgICAgICAgICAg ICAgICAgICAgICAgICAgICAgICAgICAgICAgICAgICAgDQogICAgICAgICAgICAgICAgICAgICAgICAg ICAgICAgICAgICAgICAgICAgICAgICAgICAgICAgICAgICAgICAgICAgICAgICAgICAgICAgICAgICAg ICAgICAgICAgICAgICAgDQogICAgICAgICAgICAgIC AgICAgICAgICAgICAgICAgICAgICAgICAgICAgICAgICAgICAgICAgICAgICAgICAgICAgICAgICAgIC AgICAgICAgICAgICAgICAgICAgICAgICAgDQogICAgICAgICAgICAgICAgICAgICAgICAgICAgICAgIC AgICAgICAgICAgICAgICAgICAgICAgICAgICAgICAg KHDbGPCgCRUoSSBoAKSiNJRrFWOkCWYeECBcEPBdNPEsVVOgDAt2E2jpTZBtGDXrSB1yLUn2Ib7+DQoN DeLnYCY4kjZttV3YKL6nx6MyGLvfUSLdn8EfXZu6KT8NEKXfHOerZV9DPNqhsv5PSHOaYPPpnPWHl1on IgAnBSR9IBDsIlxaRP7IAOOrF7qwhtXvCXUfHMPQOM dsKCQUSNpcEBPODBNzSXJkQwEdFYtzDS8Rv4PqvJJ7JMa+Yt8NWD0vh5JeGSbcNREoDJ4umo8YTRaQKg MuO4VxocM3VINrSJPhOo1BHNSeROHqpWTuTsJoVAPYVxCoU2WrvG72BBPHTj8+DQplbmRvYmoNCjMyID Kpi0LzWSf3IE2PUCIjZZn5kDCzXLYqP9Hzg8DlXh22 DZYjHwibR0IimQFtTbTYhk83eklqQHMbAEOxTNCtGS4cKFXzYGBwUtW5UMHHWW1DEAYhPIFzjEMrSKBl DBKVIH2ISDnvYQM1HMUbprHtuGHdNXovLA0FVZElrwQfSeClDUDFLLa+Jw7NQZ6ji9LzXGohVvEqVE2f ff5QPFnECvUpY7V7cXGjX4A0BJniDm7JAMHwIDZbGu skAHKFPXycAI7PSJ1brsE6FN8KsMFjPWNqVONrhQJxBYn3O97hvTXsNUtxVY3IYYB+Antelmo+Bh7QTOOrDL FiLYTtQiTmBKLCJoViE0CrS9FBp6YgS4XcXL15fNaldjTnCDizHU4TBX0rUOSkXTLDIQ0NpDCjuV5tqi VoAQSoRZTKRjWvY90aeFLpQYSwJLLzZALiNz8JCSZa I3OryzLfeHinmbRrUBSsRUPKVL4JNEdmduSieZOtfDylAH70nLvjIP4SCy9FRdBtWX7whp1EmNKtZq9J ZLHmWY5THRMkXFXgZDKlHGG8AUOlJjEqGZvoFVWsRYBlCHZ2LHGjWPZzMY6ULhBaNILsVwy9VDRcYJNu PKJznp9CQBIaREEbNCN2CeViNOHkFTWoRBlhKYAlFO GqBJA0UVMaLTQjYG6XFpAdATJcEBH7YMBjGPTzWEQimv6JPFFwTTMsMFB9ERNzNEKpKIMgQKzgZLKvYF P7FVY6PIFtBRZeTB5SQwPdLDNbWGp6HSytLPBpXDBhzo4NZPZdMPCbSQjeJyVoSYWiLQJtPKzdSFPgCS DsQNP1HYBsNWQbYU2GOaJlNDXiHRH3BXJaLJBtBAAv zz7COTTmMTLaPdP5HYBjUEWyUZRmNIysNARtKXVgDRP3FWLkHMAgWE4YWfVqUBLbRWCuZAHlBIGtAEMu ih9VLHOrSAGgKmK8ZWKmTDSnNFMcXRdjLYBeAJF3JUX8BKUdPTWrVL6JEmHsJXMhTRU8THuyBQBtDFSh no1VGNZgAMDiJMrvFlZoFDPgOQQqLJimEXLvUIB6Iw E0UBWcUSWyWL0XAiWqSJLoOaR8BKCtBHLoSXOsak4OVPEuXUTjXsleOXEmOCAyLZMaVEhgNJGlMZK2VB CaIUNjHGVxSN5JEnXjNOJyTeodXGhqEIZzGPZhkv3QJFNsTEAgLYZ5NXErLBNaEWJzJWdyDMRrZZB1Jd HsDPCwZVZlVE8XUwTyMFJvYpq5PXbsHPTdUNUgnr0X KKDlZDCfMCO8ZyLpUFRoGLGcZNqrAZLwHQY9SnFgYEEmXPHfRW5FXbJyKQTvDbf3IJmfUXRwQNDclx1E PJZiRJBxGUI0LoKaIHLkVJJgRGgyVGCqDBGxSgD7WXStQTLqID3WPnNtEIGzEbU2PJGnNDBoRQPaik4O LBSvDTNhXAbmYSApGLZeMODzNUv9ozPrjFDnIJr8ND 2RU6HetqCcVmCOXb1Zr234GUUaATQfDe9UF7udLd6rCKAeZOLKYn1ZHAb3KAOcKCZ2RUd0RDV7OBS9AW FhZTFiOTExNzZkMjUzNjM+EGm5OnA0EEj1HRVnISDqPoXdCACcDBZ3DID7BzHpVKJ8Zw5pORXQDq3+DQ pjoAWpzHdmJMDJHsTeQSsvYGqsPNUSUo0G ID Date Data Source [id number] 12/04/2019 11:52:57 AM EDT [facility] Name Value Range Interpretation Code Description Data Lynn rce(s) Supporting Document(s) Leukocytes [#/volume] in Blood by Automated count 7.8 10*3/uL 4-10 [facility] Erythrocytes [#/volume] in Blood by Automated count 3.99 10*6/uL 4.1- 5.3 L [facility] Hemoglobin [Mass/volume] in Blood 13.6 g/dL 11.5-15.5 [facility] Hematocrit [Volume Fraction] of Blood by Automated count 40.0 % 3 6-45 [facility] Erythrocyte mean corpuscular volume [Entitic volume] b y Automated count 100.4 fL 80-96 H [facility] Erythrocyte mean corpuscular hemoglobin [Entitic mass] by Automated count 34.2 pg 27-33 H [facility] Erythrocyte mean corpuscular hemoglobin concentration [Mass/volume] by Automated count 34.0 g/dL 32.0-36.0 [facility] E[facility]th[facility] distribution width [Ratio] by Automated count 14.5 % 11.5-14.5 [facility] Platelets [#/volume] in Blood by Automated count 212 10*3/uL 150-400 [facility] Differential cell count method - Blood [facility] Neutrophils/100 leukocytes in Blood by Automated count 67 % [facility] Lymphocytes/100 leukocytes in Blood by Automated count 24 % [facility] Monocytes/100 leukocytes in Blood by Automated count 6 % [facility] Eosinophils/100 leukocytes in Blood by Automated count 2 % [facility] Basophils/100 leukocytes in Blood by Automated count 1 % [facility] Neutrophils [#/volume] in Blood by Automated count 5.18 10*3/uL 1.8-7 .0 [facility] Lymphocytes [#/volume] in Blood by Automated count 1.88 10*3/uL 1.2-4 .0 [facility] Monocytes [#/volume] in Blood by Automated count 0.50 10*3/uL 0-0.8 [facility] Eosinophils [#/volume] in Blood by Automated count 0.13 10*3/uL 0-0.5 [facility] Basophils [#/volume] in Blood by Automated count 0.08 10*3/uL 0-0.2 [facility] Nucleated erythrocytes/100 leukocytes [Ratio] in Blood by Automated count 0 /100{WBCs} 0-0 [facility] ID Date Data Source [id number] 12/04/2019 12:33:03 PM EDT [facility] Name Value Range Interpretation Code Description Data Lynn rce(s) Supporting Document(s) Albumin [Mass/volume] in Serum or Plasma by Bromocresol green (BCG) dye binding method 4.3 g/dL 3.5-5.2 [facility] Bilirubin.total [Mass/volume] in Serum or Plasma 0.3 mg/dL <1.2 [facility] Calcium [Mass/volume] in Serum or Plasma 9.5 mg/dL 8.6-10.0 [facility] Chloride [Moles/volume] in Serum or Plasma 99 mmol/L 98-107 [facility] Creatinine [Mass/volume] in Serum or Plasma 1.31 mg/dL 0.50-0.90 H [facility] Glucose [Mass/volume] in Serum or Plasma 192 mg/dL 70-140 H [facility] Alkaline phosphatase [Enzymatic activity/volume] in Serum or Plasma 71 U/L 35-104 [facility] Potassium [Moles/volume] in Serum or Plasma 4.1 mmol/L 3.4-5.1 [facility] Protein [Mass/volume] in Serum or Plasma 6.8 g/dL 6.4-8.3 [facility] Sodium [Moles/volume] in Serum or Plasma 133 mmol/L 136-145 L [facility] Aspartate aminotransferase [Enzymatic activity/volume] in Serum or Plasma 21 U/L <32 [facility] Urea nitrogen [Mass/volume] in Serum or Plasma 12 mg/dL 6-20 [facility] Osmolality of Serum or Plasma by calculation 281 mosm/kg 275-300 [facility] Creatinine/Urea nitrogen [Mass Ratio] in Serum or Plasma 9 [facility] Bicarbonate [Moles/volume] in Serum 25 mmol/L 22-29 [facility] Alanine aminotransferase [Enzymatic activity/volume] in Seru m or Plasma 20 U/L <33 [facility] Anion gap 3 in Serum or Plasma 9 mmol/L 8-15 [facility] Glomerular filtration rate/1.73 sq M pre dicted among non-blacks [Volume Rate/Area] in Serum or Plasma by Creatinine-based formula (MDRD) 46 mL/min/1.73m2 >60 L [facility] Glomerular filtration rate/1.73 sq M pre dicted among blacks [Volume Rate/Area] in Serum or Plasma by Creatinine-based formula (MDRD) 53 mL/min/1.73m2 >60 L [facility] ID Date Data Source [id number] 12/04/2019 12:33:03 PM EDT [facility] Name Value Range Interpretation Code Description Data Lynn rce(s) Supporting Document(s) Thyrotropin [Units/volume] in Serum or Plasma 33.720 u[IU]/mL 0.270-4 .200 H [facility] ID Date Data Source [id number] 11/19/2019 01:19:41 PM EDT [facility] Name Value Range Interpretation Code Description Data Lynn rce(s) Supporting Document(s) Progress Note [facility] EFYUOj1nDiKEVmHq49/YTSqxZVQho5UpGApoIDm1VBwpQFBwK0QqQQA2uX4oDDI2ZXqUKrUpNuHpXNJq lbm [file] AgICAgICAgICAgICAgICAgICAgICAgICAgICAgICAg ICAgICAgICAgICAgICAgICAgICAgICAgICAgICAgICAgICAgICAgICAgICAgICAgICAgICAgICAgICAg ZPBlJQJmGK6UXGWbHQMnVGHqDNIzOJTjLWYzSLNvCQJrEZCzXCJjISFkYHGqCJUlVNZaUEHwNVGfZFDx ICAgICAgICAgICAgICAgICAgICAgICAgICAgICAgIC IqHXTdMBLcCHIsMDYyCYAyRH9VFTOaRODnHYRqFPPuLRPrOBDfNUVbILZxDJUsJFAjJBCvONYzUCNdTM AgICAgICAgICAgICAgICAgICAgICAgICAgICAgICAgICAgICAgICAgICAgICAgICAgICAgICAgICAgIA 0KICAgICAgICAgICAgICAgICAgICAgICAgICAgICAg ICAgICAgICAgICAgICAgICAgICAgICAgICAgICAgICAgICAgICAgICAgICAgICAgICAgICAgICAgICAg BIHqWVHbKGEzPF4JWDAuZHQsHTFbWNMaRZEeFZZmQROwIPOsZMUuBUPmIRRzSTFvGAFrUYKtVMTeUBPf ICAgICAgICAgICAgICAgICAgICAgICAgICAgICAgIC PyOOBuUCZkGLQrBPPqFNDdGHUdBZ2VJOJtJFAoUZSjQXWhQQGyPAWyDQHzREXjYQRhWILhPIPuMYKhUX AgICAgICAgICAgICAgICAgICAgICAgICAgICAgICAgICAgICAgICAgICAgICAgICAgICAgICAgICAgIC HuGU9POQIvUNNrQYVaPISyVIFwVLRzKVRqGDNbQECw ICAgICAgICAgICAgICAgICAgICAgICAgICAgICAgICAgICAgICAgICAgICAgICAgICAgICAgICAgICAg ZINfBIBrPNGcRPRpAD9CIYMoVWRyQZEmDOSlBVWzEVGaQOFrEMNgYNHzKAMkTENsSKPqIPAjBTHjEDZk ICAgICAgICAgICAgICAgICAgICAgICAgICAgICAgIC RvHSNdLRPwCWGkQGEuKQMjNIWjEMIhAI6BUHXeRYTdFPBaPWHoQSSgXUHjIGTkBXPxRHMeWCRjBGWoXN AgICAgICAgICAgICAgICAgICAgICAgICAgICAgICAgICAgICAgICAgICAgICAgICAgICAgICAgICAgIC BuSGQrNE8GKXXbDFHfYPEnYLOuOCMfECUqNFWyFXLw ICAgICAgICAgICAgICAgICAgICAgICAgICAgICAgICAgICAgICAgICAgICAgICAgICAgICAgICAgICAg VTUuYLPtOZYfAFWyUNYcGH6VMA17wQWdu5J3HGOjJG7utdj/Oh6VQBcdfmYfmULoMQ2QViEaMP7khq3B CwAaNF9mtn8ANWtPTzFlE9Q9mKRoZXGgPAQRIgAhO3 4eXGwwVe38CXfuWUHuUtNtMRi6Kd3UFfWiG4xjZBBjOmN5TUDxSdF9ZZWeKmH2ZJBaCuYsUTdxIQ9To5 VudCAzDQo+Mw5LPB4ky7XqHYeyUcUfYB6ucg6TYFqADuFeH7LvzfH9CYV9IFOjGp1HSNWgKOXjzKMqAB VnDDDUZaIpQ2ZlxM98NCXQIr1+DQplbmRvYmoNCjI0 BRFpe6JwGWi8JQ2BCEDrQZf9eEJzOIBbD6Vxa8BrVb08XSZxMzlcYEqzaBXhcWIDYQ0pmNygWVJkLFEt IY8zYj3kWPEaCAQeWnQjWDGWHO9OFGDtJMNjbLVjKGSsHQNZWP5TQUypPJG9TXYwbgVxbTRmDXbaTC7I YXJlbnQgMjMgMCBSDQo+Fj5HOI1af1NlSOkoGJIvWB 7xsb3APBhCNsRaO9U1hMNvJ0C0DFscWo4GQVXlEXTkSfBbUXWXNFudXL7ACQ8ufrY8RP7XgUZlQPCdGS EucOVpBMd0Y27gmUOuEBnrPU6JTZP+Antelmo+Ge2BNASdLARhQXCfQjKbOPMCVmSxX7SgK1FQb4CqE4EcJL 16cOqkexTrCXygPH3MBZ3mSUGdMIRRSG9JbEKlsM5w ceLrAqMeOOWXQyZuC25odVBkPOPpFOEiJEQaSw6JWAUgY9RkcnHcgGvpyyHuYXXoFGFMFI6SEOkyejMl lYOheYahDP53fBmgDW1MOb4LYzLtGU7maa3GjGZoRc9NWZKgIa2TSJUtXUPxCSAhIIU0HEVjUjPlJZhp HNPiTBQbUZV3QQAxNZXsKQ4ROrSqVKGlQuP7QgIfPU LsRKIduh4MNKHyXMTrZbH7ZKNgWWRzSHTuHKqxTEHlQEDnGRG3ISUhFOVyYN2DZnTaHCVnDRH6HmAmCW GpBGRfvp4HDFBhFEHvKCR0LZXdDTRhPCWvDOtwOPMnSDR9XMPwFCOsJTPnSM2QTaNsWPMbQCuoAfNfNC IwBQIype8ARGGmMHWsLYB0JsFrBFFdEKIqGBwqSYNb DYFiVqHpZLYlGHWuUY8SPjOtZTHgAPO0CkBdHQIcIRAtcd6QIUCrKOBbACw8XsSiXSNrLWPxJBfpNEWe WYLmAZNiFWXlDOKhTB8DHnUyFQCtBVY8SSdvGTLaYSGdki8KKZYkXKSzTbOjAOIjGDEcZAAzLGolZGCa HHEmEgg3ECCvVVXzQQ9OFiBvSKBwKqQ5HLtaCPKtKR Axpb3AOCOgNMSbVYK7LIKuEQLlPQHpXYesBFTsFDJ5EoCbBYVvLEQrCT6MOkUvFBPmNiF6NTNrKPQxBY Nbes9EVRGlKFIhAZG9NYPoUAZuDBGyLCuhCITeLFT8DQKqLVQfSZOeCU4MSvRnFPTpVfk6FJCrMDMwCQ Bkbg5FVLMvYSLyRoT2MGYaOFDvYTInUGjtPSOzFKM6 FoA3GOOnKRUdSY2DNmAtJJjzQFZXOmw4ZOkvB6v1TJZfOn2LF5Kkg4ZfJjBiQUMRLWmcWV5lxfJkCTFw Fj7QL0eMJhn8OmWcSnK1QFFePeSqKdYoEIDtRCkvNrL3BvMuLzA3Bh9aNOa8PsJxLLKmEMGlLPOnDXB5 RnZcY4R1ZYEeQoQ9UxGbHeHeVN9NQj4HQlL9MZD7zSTdHy9LLus0ZnIRRtBqQY1SYHw= ID Date Data Source [id number] 11/17/2019 02:00:00 PM EDT [facility] ([facility] ID Date Data Source [id number] 11/17/2019 02:00:00 PM EDT [facility] ([facility] Name Value Range Interpretation Code Description Data Lynn rce(s) Supporting Document(s) Aspartate aminotransferase [Enzymatic activity/volume] in Se rum or Plasma 20 15-37 [facility] ([facility]) Albumin 3.8 3.2-5.2 [facility] Alanine aminotransferase [Enzymatic activity/volume] i n Serum or Plasma 35 30-65 [facility] Alk Phos 80 50-136 [facility] Total Bilirubin 0.5 0.0-1.0 [facility] A/G Ratio 1.0 1.00-1.93 [facility] Total Protein 7.5 6.4-8.2 [facility] ([facility] ID Date Data Source [id number] 11/15/2019 08:47:36 AM EDT [facility] Name Value Range Interpretation Code Description Data Lynn rce(s) Supporting Document(s) Progress Note [facility] TSZCQt9tXzPDShLn88/MLPpgYSRhy2MxYPqdRCf3LRsnZXIyG6AsSSI7dR4xFDG5RVwHYbUhKfZzGOR2 lbm [file] I+DW6uOOk+Bs6Yu5KneeB7coZvXSumCNZ5IE0OZYAIO5OXHv== ID Date Data Source [id number] 11/15/2019 08:47:26 AM EDT [facility] Name Value Range Interpretation Code Description Data Lynn rce(s) Supporting Document(s) Progress Note [facility] BEIKJs2sJvJAMuYv57/FVSsdUTCac6ZfHRhxPYa1ISiaPPFrO0KfWKU7bQ6wNYS1RFnNKxTpOsIoMMU0 lbm [file] //harness fitter+EklyZzDsCquwkFbCVMVV6xYwQVnjKdnbI30IXgbFZ8b5kJc/kJOn/uE5VN+7hDrMToYSdGkS5I [file] ICAgICAgICAgICAgICAgICAgICAgICAgICAgICAgICAgICAgICAgICAgICAgICAgICAgICAgICAgICAg ICAgICAgICAgICAgICAgICAgICAgICAgICANCiAgIC AgICAgICAgICAgICAgICAgICAgICAgICAgICAgICAgICAgICAgICAgICAgICAgICAgICAgICAgICAgIC AgICAgICAgICAgICAgICAgICAgICAgICAgICAgICAgICAgICANCiAgICAgICAgICAgICAgICAgICAgIC AgICAgICAgICAgICAgICAgICAgICAgICAgICAgICAg ICAgICAgICAgICAgICAgICAgICAgICAgICAgICAgICAgICAgICAgICAgICAgICANCiAgICAgICAgICAg ICAgICAgICAgICAgICAgICAgICAgICAgICAgICAgICAgICAgICAgICAgICAgICAgICAgICAgICAgICAg ICAgICAgICAgICAgICAgICAgICAgICAgICAgICANCi AgICAgICAgICAgICAgICAgICAgICAgICAgICAgICAgICAgICAgICAgICAgICAgICAgICAgICAgICAgIC AgICAgICAgICAgICAgICAgICAgICAgICAgICAgICAgICAgICAgICANCiAgICAgICAgICAgICAgICAgIC AgICAgICAgICAgICAgICAgICAgICAgICAgICAgICAg ICAgICAgICAgICAgICAgICAgICAgICAgICAgICAgICAgICAgICAgICAgICAgICAgICANCiAgICAgICAg ICAgICAgICAgICAgICAgICAgICAgICAgICAgICAgICAgICAgICAgICAgICAgICAgICAgICAgICAgICAg ICAgICAgICAgICAgICAgICAgICAgICAgICAgICAgIC ANCiAgICAgICAgICAgICAgICAgICAgICAgICAgICAgICAgICAgICAgICAgICAgICAgICAgICAgICAgIC AgICAgICAgICAgICAgICAgICAgICAgICAgICAgICAgICAgICAgICAgICANCiAgICAgICAgICAgICAgIC AgICAgICAgICAgICAgICAgICAgICAgICAgICAgICAg ICAgICAgICAgICAgICAgICAgICAgICAgICAgICAgICAgICAgICAgICAgICAgICAgICAgICANCiAgICAg ICAgICAgICAgICAgICAgICAgICAgICAgICAgICAgICAgICAgICAgICAgICAgICAgICAgICAgICAgICAg ICAgICAgICAgICAgICAgICAgICAgICAgICAgICAgIC AgICANCjw/kUYyH4cbiZNafcF1G2rsPh7LEp2PUJ6em9YvVPIzAVqpfkAoOqdFDsSpRFPwKddUQxv7GL gsFA3FlGCaC1BoL4RtVAdrKZ9BQILmRUPjsRRiWQOlIWWmOiW7DVWsJCqdQZ0LyQVwROxjAXWoGRJzLp IuORNlAQBwBJMqXGRrWDDYUDIiVDXnZxXyHEsoGH7E x5XuaKC9AWi+Db8EJU8wq5GzWClxRhAfSZ7czq0XVRhKAxEqN6TrwrZ9LRY0GGRbNr8GZIWxFFPrnFMz CCVmJXGLFyKiO9UjnF55NCLOLo1+BSehynLcWvoWYoD0THNrg7YbVGz1QS9JOHPgAQp4dWJjZKPaQ3Xp p7QzBt37SXAiMgajDStpoDLDZT1pHCfzINSrNONaQG 4rIl2fFYEzXUHdReC8GIFGVI3DMAEgTFDozIWfKKKzJYAHAT7QOZxlWZL1CCXonxGdbRThPZxlCL0HJH JlbnQgMzMgMCBSDQo+Gy0THX8xy3YuCEdgQYBxOH3zbb7XZKkRNmNvI3M4vLLhS7S1LPryIw4JLNRpKZ DeTuNmBDOULIkiFN9APU7cfrV1XX6CrZZjMSIlFEDn nKRxZKe7F48blZYnEGtkSO7PYXU+Antelmo+Aj2YNZNkLZDpEVKfJoIiCNSVNnSrT3IpR5SYz1TfR6HuLN07 qMiviiBpMMqiJM5XEJ7nLOHuETTYWU1ZvREayO6zncSaSxVnFMWPGxRxP70ctDWsNRArKUHfGXXrPl1J BLPzH2FxyjIlvRrqepKlSKRgHTQBQG5LVVwhrlYhiX XjoAwbPM02oTfxRG7ZDy4UJuAuQZ4bwq8VhXMnPr7LZJVdWt7QAMCnCWByKMRxGNM0MJFmQnKyYFjvEU KbHVNeRTO4RPGsIZWgGS4QOsWlLJSqToP1QKNdQUReZTTenv4BTJQbUGMqCXP0IrTvUEBcHCVuIHofLH QaBWUdZDU8BVAgGFUnAB5VIqNeMHArSWHzViqiHLUf ISKkgd3BCIEqIRBeZYV8ElCePFSvRLLbDDdoJPYsJMZ1OZZxQCHxZPHrJY1NMfYlFVIxKVv6TiqxHOGv EGJmpp3YNQNeRTNwCPXtKNRzALDqITMoSRliVYYcPLDxLHUeQDElUVZsLQ6MTmYgDEMuVTE5LdsgPWIe KULgnx0ZDVJjXANtVbj4XTTfZPTiGQBrQVewHHMjIC J8Lre3PXSaDLTvTS2LXpHmGLXwIZG8EQOkCQDgJOWcwu9MDLKuYESvRwe6BIBrTPYyRXGyQEaoQYDzHD O9AIPxVLKzCZJyYB0GLkElRHEtJWjiDpXdDDMyIHDcny3PCXScNMBtRDN4JyEoSNUnUZOiASoyWXKfEF H0Kkn9NYIiGGDkPX1AJaBsBFCgBBy8XJLySUWwPJDr ks0CGJBzOSMpUMYpKpWaPNDyORGmUCnkAAPsVVWiWdB5NUYgEITkXK5CQgZaYRDdXdO2PBfqZRFsZBUt uq4SACNnGSDrRBb6KaHrAHGwDSLgOVbaFDVcNTYyIDMhBRSaLDZhGF1LOtShOMVaKtV1ZNUlHBFzHZQz aq0KKGOzQTEeJxH8GqCnGVSmECLvLXlzNZYwQBVqAf O6NCLgZSYdNJ2EYeTdEJKxIeZpWIckEKMcNFKnrh3QNPEdTNGhFjU0CRIwQUDcVQCqBCnqJXGxPDVwTX f6ECYhLSHrFR4TDtWePRPkCfLgSCyfDWBdDKMeyq2MQQAuXTJvZDM6WZMpNBHwHJXiPHzhKDXvYDS7SS QdJMPjYMZzQJ0YVoSvDLMeEjU2IGstZAVtRPKebt8J hSPzhSxpau9CONqICn4FcTdeSQX3VWgzPy6enJQlZIPvVSATXd7SqfJyGBGoSOUBGHupASSrGHi2VQKz ExM8LDKpBNkyYMUrKPP2MMU8FTA4BWByAzF8GrT8NNUpV1JxHWX6UAGuQIW5RrFuXxR9RgE7TOjfGCTl NDc+OD7iIIv+Nk8Zy9LvxrA2ltGvCRglHNjtKX4AABOEU4RFZh== ID Date Data Source [id number] 11/13/2019 02:07:22 PM EDT [facility] XR CHEST FRONTAL ONLY [id number] RESULTI nterpreted by:Edwardo Montaño MDINDICATION: 54-year-old female, [...] rce(s) Supporting Document(s) ID Date Data Source [id number] 11/13/2019 11:44:07 AM EDT [facility] Name Value Range Interpretation Code Description Data Lynn rce(s) Supporting Document(s) Leukocytes [#/volume] in Blood by Automated count 5.3 10*3/uL 4-10 [facility] Erythrocytes [#/volume] in Blood by Automated count 3.77 10*6/uL 4.1- 5.3 L [facility] Hemoglobin [Mass/volume] in Blood 13.0 g/dL 11.5-15.5 [facility] Hematocrit [Volume Fraction] of Blood by Automated count 37.9 % 3 6-45 [facility] Erythrocyte mean corpuscular volume [Entitic volume] b y Automated count 100.5 fL 80-96 H [facility] Erythrocyte mean corpuscular hemoglobin [Entitic mass] by Automated count 34.3 pg 27-33 H [facility] Erythrocyte mean corpuscular hemoglobin concentration [Mass/volume] by Automated count 34.2 g/dL 32.0-36.0 [facility] Erythrocyte distribution width [Ratio] by Automated count 14.1 % 11.5-14.5 [facility] Platelets [#/volume] in Blood by Automated count 161 10*3/uL 150-400 [facility] Differential cell count method - Blood [facility] Neutrophils/100 leukocytes in Blood by Automated count 54 % [facility] Lymphocytes/100 leukocytes in Blood by Automated count 35 % [facility] Monocytes/100 leukocytes in Blood by Automated count 8 % [facility] Eosinophils/100 leukocytes in Blood by Automated count 2 % [facility] Basophils/100 leukocytes in Blood by Automated count 1 % [facility] Neutrophils [#/volume] in Blood by Automated count 2.84 10*3/uL 1.8-7 .0 [facility] Lymphocytes [#/volume] in Blood by Automated count 1.88 10*3/uL 1.2-4 .0 [facility] Monocytes [#/volume] in Blood by Automated count 0.43 10*3/uL 0-0.8 [facility] Eosinophils [#/volume] in Blood by Automated count 0.10 10*3/uL 0-0.5 [facility] Basophils [#/volume] in Blood by Automated count 0.05 10*3/uL 0-0.2 [facility] Nucleated erythrocytes/100 leukocytes [Ratio] in Blood by Automated count 0 /100{WBCs} 0-0 [facility] ID Date Data Source [id number] 11/13/2019 12:29:07 PM EDT [facility] Name Value Range Interpretation Code Description Data Lynn rce(s) Supporting Document(s) Albumin [Mass/volume] in Serum or Plasma by Bromocresol green (BCG) dye binding method 4.0 g/dL 3.5-5.2 [facility] Bilirubin.total [Mass/volume] in Serum or Plasma 0.2 mg/dL <1.2 [facility] Calcium [Mass/volume] in Serum or Plasma 9.1 mg/dL 8.6-10.0 [facility] Chloride [Moles/volume] in Serum or Plasma 98 mmol/L 98-107 [facility] Creatinine [Mass/volume] in Serum or Plasma 1.33 mg/dL 0.50-0.90 H [facility] Glucose [Mass/volume] in Serum or Plasma 215 mg/dL 70-140 H [facility] Alkaline phosphatase [Enzymatic activity/volume] in Serum or Plasma 70 U/L 35-104 [facility] Potassium [Moles/volume] in Serum or Plasma 4.2 mmol/L 3.4-5.1 [facility] Protein [Mass/volume] in Serum or Plasma 6.9 g/dL 6.4-8.3 [facility] Sodium [Moles/volume] in Serum or Plasma 133 mmol/L 136-145 L [facility] Aspartate aminotransferase [Enzymatic activity/volume] in Serum or Plasma 21 U/L <32 [facility] Urea nitrogen [Mass/volume] in Serum or Plasma 13 mg/dL 6-20 [facility] Osmolality of Serum or Plasma by calculation 283 mosm/kg 275-300 [facility] Creatinine/Urea nitrogen [Mass Ratio] in Serum or Plasma 9 [facility] Bicarbonate [Moles/volume] in Serum 25 mmol/L 22-29 [facility] Alanine aminotransferase [Enzymatic activity/volume] in Seru m or Plasma 21 U/L <33 [facility] Anion gap 3 in Serum or Plasma 11 mmol/L 8-15 [facility] Glomerular filtration rate/1.73 sq M pre dicted among non-blacks [Volume Rate/Area] in Serum or Plasma by Creatinine-based formula (MDRD) 45 mL/min/1.73m2 >60 L [facility] Glomerular filtration rate/1.73 sq M pre dicted among blacks [Volume Rate/Area] in Serum or Plasma by Creatinine-based formula (MDRD) 52 mL/min/1.73m2 >60 L [facility] ID Date Data Source [id number] [facility] Interpretation Code Description Data Lynn rce(s) Supporting Document(s) Thyrotropin [Units/volume] in Serum or Plasma 34.900 u[IU]/mL 0.270-4 .200 H [facility] ID Date Data Source [id number] 10/28/2019 09:02:08 AM [facility] Name Value Range Interpretation Code Description Data Lynn rce(s) Supporting Document(s) Progress Note [facility] CFTZDh4aPvYYMfIj85/ZKYopJMDgi3CdGPakLWe7GFklKOTzL7NlDXW3wV3yBTF7KMuKHvRrRgXkPJLt lbm [file] ID Date Data Source [id number] 10/23/2019 12:14:03 PM T [facility] Name Value Range Interpretation Code Description Data Lynn rce(s) Supporting Document(s) Leukocytes [#/volume] in Blood by Automated count 10.7 10*3/uL 4-10 H [facility] Erythrocytes [#/volume] in Blood by Automated count 3.96 10*6/uL 4.1- 5.3 L [facility] Hemoglobin [Mass/volume] in Blood 13.9 g/dL 11.5-15.5 [facility] Hematocrit [Volume Fraction] of Blood by Automated count 40.5 % 3 6-45 [facility] Erythrocyte mean corpuscular volume [Entitic volume] b y Automated count 102.4 fL 80-96 H [facility] Erythrocyte mean corpuscular hemoglobin [Entitic mass] by Automated count 35.0 pg 27-33 H [facility] Erythrocyte mean corpuscular hemoglobin concentration [Mass/volume] by Automated count 34.2 g/dL 32.0-36.0 [facility] distribution width [Ratio] by Automated count 14.5 % 11.5-14.5 [facility] Platelets [#/volume] in Blood by Automated count 201 10*3/uL 150-400 [facility] Differential cell count method - Blood [facility] Neutrophils/100 leukocytes in Blood by Automated count 69 % [facility] Lymphocytes/100 leukocytes in Blood by Automated count 21 % [facility] Monocytes/100 leukocytes in Blood by Automated count 7 % [facility] Eosinophils/100 leukocytes in Blood by Automated count 2 % [facility] Basophils/100 leukocytes in Blood by Automated count 1 % [facility] Neutrophils [#/volume] in Blood by Automated count 7.35 10*3/uL 1.8-7 .0 H [facility] Lymphocytes [#/volume] in Blood by Automated count 2.28 10*3/uL 1.2-4 .0 [facility] Monocytes [#/volume] in Blood by Automated count 0.75 10*3/uL 0-0.8 [facility] Eosinophils [#/volume] in Blood by Automated count 0.17 10*3/uL 0-0.5 [facility] Basophils [#/volume] in Blood by Automated count 0.15 10*3/uL 0-0.2 [facility] Nucleated erythrocytes/100 leukocytes [Ratio] in Blood by Automated count 0 /100{WBCs} 0-0 [facility] ID Date Data Source [id number] 10/23/2019 12:56:29 PM EDT [facility] Name Value Range Interpretation Code Description Data Lynn rce(s) Supporting Document(s) Albumin [Mass/volume] in Serum or Plasma by Bromocresol green (BCG) dye binding method 4.3 g/dL 3.5-5.2 [facility] Bilirubin.total [Mass/volume] in Serum or Plasma 0.2 mg/dL <1.2 [facility] Calcium [Mass/volume] in Serum or Plasma 9.5 mg/dL 8.6-10.0 [facility] Chloride [Moles/volume] in Serum or Plasma 98 mmol/L 98-107 [facility] Creatinine [Mass/volume] in Serum or Plasma 1.17 mg/dL 0.50-0.90 H [facility] Glucose [Mass/volume] in Serum or Plasma 289 mg/dL 70-140 H [facility] Alkaline phosphatase [Enzymatic activity/volume] in Serum or Plasma 86 U/L 35-104 [facility] Potassium [Moles/volume] in Serum or Plasma 4.5 mmol/L 3.4-5.1 [facility] Protein [Mass/volume] in Serum or Plasma 7.3 g/dL 6.4-8.3 [facility] Sodium [Moles/volume] in Serum or Plasma 130 mmol/L 136-145 L [facility] Aspartate aminotransferase [Enzymatic activity/volume] in Serum or Plasma 18 U/L <32 [facility] Urea nitrogen [Mass/volume] in Serum or Plasma 31 mg/dL 6-20 H [facility] Osmolality of Serum or Plasma by calculation 287 mosm/kg 275-300 [facility] Creatinine/Urea nitrogen [Mass Ratio] in Serum or Plasma 27 [facility] Bicarbonate [Moles/volume] in Serum 22 mmol/L 22-29 [facility] Alanine aminotransferase [Enzymatic activity/volume] in Seru m or Plasma 26 U/L <33 [facility] Anion gap 3 in Serum or Plasma 10 mmol/L 8-15 [facility] Glomerular filtration rate/1.73 sq M pre dicted among non-blacks [Volume Rate/Area] in Serum or Plasma by Creatinine-based formula (MDRD) 53 mL/min/1.73m2 >60 L [facility] Glomerular filtration rate/1.73 sq M pre dicted among blacks [Volume Rate/Area] in Serum or Plasma by Creatinine-based formula (MDRD) 61 mL/min/1.73m2 >60 [facility] ID Date Data Source [id number] [facility] Value Range Interpretation Code Description Data Lynn rce(s) Supporting Document(s) Thyrotropin [Units/volume] in Serum or Plasma 22.700 u[IU]/mL 0.270-4 .200 H [facility] ID Date Data Source [id number] 10/21/2019 11:38:53 AM [facility] Name Value Range Interpretation Code Description Data Lynn rce(s) Supporting Document(s) Progress Note [facility] RLCOJi3iVkHILwJn71/HINnpIBXjg5ItIAerLAa5SNnkKTWjE4ReZFD6bH9nLSO8ZFuEBnGbPcHaOQJ8 lbm [file] RkNrYC6BKq3CToD2OAB7lAUyHn4UNlNnUoLLCiZkDE6BQBg= ID Date Data Source [id number] 10/16/2019 09:36:00 AM EDT [facility] Name Value Range Interpretation Code Description Data Lynn rce(s) Supporting Document(s) Progress Note [facility] ATFEEi2bRoBYQcWe41/RFXjxFCNxn7JcNCtgONz8HUmxSCQdG2AhBOK9dZ2mLMG3GHgLGkQiKtJyREZz lbm [file] NjYwYTIzOWY+GX6kLKg+Hm7Qe9EbmoY3flHvORwkJLSfCu1XOTLFL0ZCRb== ID Date Data Source [id number] 10/15/2019 05:19:44 PM EDT [facility] Name Value Range Interpretation Code Description Data Lynn rce(s) Supporting Document(s) Progress Note [facility] XZHNTv4oGoLEOoLo77/LBHwlQEIkc7OvPBofAZi4WTbfJACmY4TuWME0iR4cCQK8ZKiQQnDiFdOzFPN7 lbm [file] 9GDQo= ID Date Data Source [id number] 10/08/2019 06:10:48 PM EDT [facility] Name Value Range Interpretation Code Description Data Lynn rce(s) Supporting Document(s) Progress Note [facility] GBYVCm0rRlZWDyQr57/GFTsqFNGva5XmHWkpEBb2XUgnNAOlU7LnXAS7nR0qVOZ8PBnHJvMxPxGaOZPf lbm [file] JESSI+WRpyFFweqJa6yNQcKPXrSo1NCUGmPAYcJTYdOT AgICAgICAgICAgICAgICAgICAgICAgICAgICAgICAgICAgICAgICAgICAgICAgICAgICAgICAgICAgIC DcYYPxZUCjPHCvRHFwAAEbFIBrVCHsOCJdWFDjOS7VHTQuEMPrQMOyKIXlQKRcODYgNNRsUTTkDXPzHU AgICAgICAgICAgICAgICAgICAgICAgICAgICAgICAg HAVcGRWcLRNiONLnHYVfHNQhBLPhOAXwHUGhEUMcELStQZLeSZBeQS1VGGStSUTuDBEaLSBtVWAwECAd ICAgICAgICAgICAgICAgICAgICAgICAgICAgICAgICAgICAgICAgICAgICAgICAgICAgICAgICAgICAg MCLzQLUcKEOxLGTlXZOpXCYiBQFdYJ7FSZDlGVHbXI AgICAgICAgICAgICAgICAgICAgICAgICAgICAgICAgICAgICAgICAgICAgICAgICAgICAgICAgICAgIC BgUEZpWMLhBZYdTFIpAUFlIGRtLCWhCAHgUGNvXTYpPO3EZCPyIMSxPMHtMMAdQGRvWHObKLWkWQGqTU AgICAgICAgICAgICAgICAgICAgICAgICAgICAgICAg QJDgUUJvPXNvMQYoCYDqOZMhHRDhHXZuWWUnGZWtYYBhETRjYGTfEGHmOK7FPTHgSUSnXJLgQHTgWWMy ICAgICAgICAgICAgICAgICAgICAgICAgICAgICAgICAgICAgICAgICAgICAgICAgICAgICAgICAgICAg JPDpNFQyCMPpHBEhHNClMSCmXEVaFOLdJH3BXACsIB AgICAgICAgICAgICAgICAgICAgICAgICAgICAgICAgICAgICAgICAgICAgICAgICAgICAgICAgICAgIC ZxTKUhCNDcGWMdIHRjUUYqJDIoZVZuUBSrQOWiHOUwZDPcNH1BEABlWWVfFUHzETFwQCWkOGDrZUVoRO AgICAgICAgICAgICAgICAgICAgICAgICAgICAgICAg HEEwDEDnMXArVACbENXyVSZySYRtBMJvNIDkMYUyQTFvSAKsRVLsFRHfOHNfWT3TZCExFKWpVRUzHRXr ICAgICAgICAgICAgICAgICAgICAgICAgICAgICAgICAgICAgICAgICAgICAgICAgICAgICAgICAgICAg XRRtWOOnIMYkBBFtYLIxSGSpLQEbPOYySCQcPT6ZQE AgICAgICAgICAgICAgICAgICAgICAgICAgICAgICAgICAgICAgICAgICAgICAgICAgICAgICAgICAgIC TrPRKvPFLrLMRcQMQgOWBlPKHlMRMhWGKdQLOuBWRwQMYcJOHsJC6HJM69cSXsh5S8KORlHX9fwjx/Pg 1ZADeahxGtpKDhUV6ZLsFhED8feg4QXuEhFX5zjf3T GJlYHbWjS4H7qETxRHEpCDXTMwZcK74qOZogVa30MLiwMIJzIgNfESf8Cy6IBqBhM3idQCOfLfI3BYZh GfB2TIKxGsRpHCNbXVFuQH5AJYTgN095iyUkIp5RJd5ESxUqVH7fei7XEohkYEGdZfzCWsr6LMuaYF1E qESqgIYpWGSfOQINYzJlZ0ktq2ViVovlTJTJIQdvEM 0Wa8QokKSeSYa+Wj5AWI2xz3BqJQdpTWFgVD5jve6VAOnBSwBfK7YdqRakARSgl1ikFHZlAR8mlMPiNA C8YUdlgK2cYaILaLimHZStLUJgVB5lQj2gHDDzENJ6ShDiZIHJGH6LNNUaDQJjoILwUBOsPWRUQC5BKL caRUN4ENAhcqGrmLFpOUwrGK7WZWTxtmWeJyleTOYN DQo+Fj7GQT2er3YgUSy4NDHwi9LsPEu1QV2EHOPyHTetCETjWO2lp7JzW6G5DrY2rXOnZ7kmifvjN3Hn syDvpgImXNAaMMYgGS3IBP2RIN3OTQEiQGbtUO7GIKM7XHu7QxV6FZFmOXGfSWO8XY6sKMkaCB3UEHm8 R1JeI6WPDWSyAOEKPVWxaIV9HFSCIc0AZ8LPIfdWMD XMHh0KBkEjA0TQC2qXX96EOP4FWOA+PiANCj4+UXxnveKfTirBSwD3HRVjc9MfQYm7CE9GRUWpNQyeUO 2KBNWhnY9cTZmlPY9FCtWvGXUbRGDVHyNjA90laCJxBSn7P6HpTxKwHNXlBsxkLSAeAWpdKaKaUSJoId BdDQogID4+ID4+WCyxLR7RFAhqlrAmKJUsPi7BFUVt WFWhUS4sZSUaTHKoU4I2vXhrIWOMDpZgI3aythoqIN4iXBYhW779fAslbcLvWOT5ULJcZh3DJGHpIVG5 NOYweMIbHsNkUINNRCopML1CwWKuOUF7iX0iJDazKVMbVRSbG9xNTwXdpJxwOR03xTshnlTbrAQzWTw+ Ax7HWV7eo1DcGBx2wcLcQFalPBRyRUwhOZObYQPoXR WmLUE8BBS7HUIXFgAcUCLzJWCjCPsoPIOgHJNzhv2ZUZCqMUYnYLGpNgUyYXDiIBWbFObyXBJrOOS6Xg CiBQOoTGSnEF6EViJcFPCiQCKtEFbqRPDaVJFlhy2YMLFaJVEbLlA8LvCaMQSkTLXmLNesSKWzMQU9LL p7MAYiKFFaUI8FEzVyWWXvUPNxWVGwUEJwHJYvxq7A APPcZPQwJvU6EaUbSFJeZRDzQAjeRARsELN2Lfh5KCUhEZPhUM0RHeDhIKFtLNk2ERDsTDEsBKHmys1N DYGtVEOiPLF9IVCaXUCzZQMaMObdXQHoXNIbAKD9BKDgTUWpCO2CJqOaZSYlVIGvBZYuWPYaHVWspv9L WLCgUDNhTHS1EEZjQIQbPMDvWUsfJSRdUBFlDSY8KW LzCDRkFF3OIuOuWXMlVXR8VTAtWWHpUPIehc3DQHDgGVYqAVllXVVvTKIgQTWjASjvNLUnLSUcJbB7IZ PaGRGqTG0SNqXjYMGnDwD2ODjiXDJiWMTxbr2EWWUsNHNsGlb7VXVvVMZbTZElYChcIRPzSBE6KDJ1WG FyMZVjRH1ESiDqFBVxWtSrAJZzHLKbKWGdkz7SYZQs GXJaGIHgYDPmQNEeFWEaPGxpOTLpFBJ6JoV4NXLhKSZdSU8PIyEgYCGoSgJ7FBOrTMZwQGUbcb2QMKQd MZTeOWgfMGWrBLSyJMXhHUwbXTRcOQL5AuxbTMMbBZNoSM0LDyEaBBPpEei4PKXhQOMfXUNqcp1CGEYk WZSkAxx4ZpEdIXGeWXTfNUo3mzBgfBGdRDy5FY8ST6 JtuhVzUpKWNx3On791UBZ9GEVmWl9MP4bnYa1hZRZvWNHXRy4UAPa5OJVtUBG4X4OdLPPtFumwIMs9Jn V5GXHxBqIvZBG6UGG+CZd0ANI7TAczCOGwBxPsIEV3UcdsJvn2YPWwZfMwUlZ2UK4zJONRAw9+DQpzdG CqpTanSTNBLjI2YWN7VYiaTHFYZs7I ID Date Data Source [id number] 10/02/2019 02:41:44 PM EDT [facility] Name Value Range Interpretation Code Description Data Lynn rce(s) Supporting Document(s) Progress Note [facility] OSZXOh4gUpSCRhFj00/SGVumRNVwc8OgDTyiHAt4TXxcRCIbL1GlWKA9xI2aIGU2BIkKGkJfYaTkLCA9 lbm [file] DwT1UaIdXpNWG3CdQzIP8UFp2SXyE5FRA9zSWoLi7JZGboHUNXPrNrVH0BTLb= ID Date Data Source [id number] 10/02/2019 12:26:28 PM EDT [facility] Name Value Range Interpretation Code Description Data Lynn rce(s) Supporting Document(s) Progress Note [facility] VPVCKr9qMsZAHjPv14/TRHgjGYBnk0UdSHkpRNh0KAmxZHOuX6QzREL1kZ6yHBD1IGgDEeNfClYiLUN5 lbm QgFyaUPoLjXPMeQovVHeLqCLbdKpcjcWFfRQ0ZvZP0XGHhZ37iAZPsKRHpW4JlLSKcPHG+Pu4KAANkeX HtTU4UHycP9S3uWiNEVh2/6p9VWItoYPoNvauUrnZDTQ4cdO7i52ORea1ZKShkvKiT5M9bjxGK59kEiu flAvmlpHp2IkVMfMCy5N548QdC/yqV6HXVymqY/Hf/ FyO65isI/PjOWfqoyV2ot/4HwjVwqCrLHovy3W5V++MH1cnZzuaH3HAY/zK/lAPM1hBrLnbH/Yu1/SRN 17JfQGrMh9IGpPCllOwPlw9gNsFMu2Qaf/rDD6L/i/qWDt91ogktizam9z5hWQIFD9Uz2kI0wKgyMZeY cXwae3g44AcvOqy0zMuUCIjKazTMxLFk40oBX14Sc4 noj9z27AVIHeHTCt88DFoZ0Y7bubZMQkz10NXGnGRzMltOq1yGgS+Sa5Jerz34r+kPuTSY6vvUGaS9Os J56DNo3UHkfFz3viCWtuB0aOTvMxhPtN0pqivrTWqEe7/qSozjUnTj9JAiX+RgdDkH4g0rxbFZsVuCst C5vvDHwCvb9Tt7GSd+faNzX6BPmjKS22T8xu28gNnn pBNyszAIvETDA1ilS9h5SfvMDBs3v6svOdL8CTZKvvqs9l7Q/Evelin/nDQ/1KwFd6FcyIgGmD9uJAB9ych CAR5OpxkLvmkhqsO0la21V/TZPx2CyP0vLk6XcKI+NtmkO4E/2wUrp4sVOlBthe93mwBbfdaH2qMjWh/ pHrLOXtqu5BPpcEd3TU8IwOzPzmEjYWgmgfXYAr7P8 EMiSyY4HcelCNvPf8kTRRX70QTJxrVU5sbAD+nG1RW3CTcea0/q1IqMBgoB05XjS5hKn505O8tmgixRh zRldTwa+Abdiel+p0qU4NN+NfGcqP45oH/o5Z+nzXc+vhN44V4sbsYml8KTpfrGe6eOqpYBkfA3jatXqu/r [file] [id number]== ID Date Data Source [id number] 10/02/2019 12:01:27 PM T [facility] Name Value Range Interpretation Code Description Data Lynn rce(s) Supporting Document(s) Leukocytes [#/volume] in Blood by Automated count 7.4 10*3/uL 4-10 [facility] Erythrocytes [#/volume] in Blood by Automated count 3.66 10*6/uL 4.1- 5.3 L [facility] Hemoglobin [Mass/volume] in Blood 12.9 g/dL 11.5-15.5 [facility] Hematocrit [Volume Fraction] of Blood by Automated count 38.3 % 3 6-45 [facility] Erythrocyte mean corpuscular volume [Entitic volume] b y Automated count 104.6 fL 80-96 H [facility] Erythrocyte mean corpuscular hemoglobin [Entitic mass] by Automated count 35.2 pg 27-33 H [facility] Erythrocyte mean corpuscular hemoglobin concentration [Mass/volume] by Automated count 33.7 g/dL 32.0-36.0 [facility] distribution width [Ratio] by Automated count 15.0 % 11.5-14.5 H [facility] Platelets [#/volume] in Blood by Automated count 193 10*3/uL 150-400 [facility] Differential cell count method - Blood [facility] Neutrophils/100 leukocytes in Blood by Automated count 58 % [facility] Lymphocytes/100 leukocytes in Blood by Automated count 32 % [facility] Monocytes/100 leukocytes in Blood by Automated count 7 % [facility] Eosinophils/100 leukocytes in Blood by Automated count 2 % [facility] Basophils/100 leukocytes in Blood by Automated count 1 % [facility] Neutrophils [#/volume] in Blood by Automated count 4.30 10*3/uL 1.8-7 .0 [facility] Lymphocytes [#/volume] in Blood by Automated count 2.37 10*3/uL 1.2-4 .0 [facility] Monocytes [#/volume] in Blood by Automated count 0.49 10*3/uL 0-0.8 [facility] Eosinophils [#/volume] in Blood by Automated count 0.18 10*3/uL 0-0.5 [facility] Basophils [#/volume] in Blood by Automated count 0.05 10*3/uL 0-0.2 [facility] Nucleated erythrocytes/100 leukocytes [Ratio] in Blood by Automated count 0 /100{WBCs} 0-0 [facility] ID Date Data Source [id number] 10/02/2019 12:42:24 PM EDT [facility] Name Value Range Interpretation Code Description Data Lynn rce(s) Supporting Document(s) Albumin [Mass/volume] in Serum or Plasma by Bromocresol green (BCG) dye binding method 4.4 g/dL 3.5-5.2 [facility] Bilirubin.total [Mass/volume] in Serum or Plasma 0.2 mg/dL <1.2 [facility] Calcium [Mass/volume] in Serum or Plasma 10.1 mg/dL 8.6-10.0 H [facility] Chloride [Moles/volume] in Serum or Plasma 98 mmol/L 98-107 [facility] Creatinine [Mass/volume] in Serum or Plasma 1.21 mg/dL 0.50-0.90 H [facility] Glucose [Mass/volume] in Serum or Plasma 223 mg/dL 70-140 H [facility] Alkaline phosphatase [Enzymatic activity/volume] in Serum or Plasma 77 U/L 35-104 [facility] Potassium [Moles/volume] in Serum or Plasma 4.4 mmol/L 3.4-5.1 [facility] Protein [Mass/volume] in Serum or Plasma 7.8 g/dL 6.4-8.3 [facility] Sodium [Moles/volume] in Serum or Plasma 137 mmol/L 136-145 [facility] Aspartate aminotransferase [Enzymatic activity/volume] in Serum or Plasma 24 U/L <32 [facility] Urea nitrogen [Mass/volume] in Serum or Plasma 16 mg/dL 6-20 [facility] [facility] Osmolality of Serum or Plasma by calculation 291 mosm/kg 275-300 [facility] Creatinine/Urea nitrogen [Mass Ratio] in Serum or Plasma 13 [facility] Bicarbonate [Moles/volume] in Serum 26 mmol/L 22-29 [facility] Alanine aminotransferase [Enzymatic activity/volume] in Seru m or Plasma 19 U/L <33 [facility] Anion gap 3 in Serum or Plasma 13 mmol/L 8-15 [facility] Glomerular filtration rate/1.73 sq M pre dicted among non-blacks [Volume Rate/Area] in Serum or Plasma by Creatinine-based formula (MDRD) 51 mL/min/1.73m2 >60 L [facility] Glomerular filtration rate/1.73 sq M pre dicted among blacks [Volume Rate/Area] in Serum or Plasma by Creatinine-based formula (MDRD) 59 mL/min/1.73m2 >60 L [facility] ID Date Data Source [id number] 10/02/2019 12:42:24 PM EDT [facility] Name Value Range Interpretation Code Description Data Lynn rce(s) Supporting Document(s) Thyrotropin [Units/volume] in Serum or Plasma 62.000 u[IU]/mL 0.270-4 .200 H [facility] ID Date Data Source [id number] 09/30/2019 04:44:46 PM EDT [facility] CT THORAX WITH CONTRAST [id number] RESUL TInterpreted by:Jose Guadalupe Arizmendi MDCLINICAL INDICATION: [...] rce(s) Supporting Document(s) ID Date Data Source [id number] 09/30/2019 04:44:46 PM EDT [facility] CT ABDOMEN PELVIS WITH CONTRAST [id number] AL RESULTInterpreted by:Jose Guadalupe Arizmendi [facility] INDICATION: Interval follow-up of extensive stage small [...] rce(s) Supporting Document(s) ID Date Data Source [id number] 09/25/2019 09:02:36 AM EDT [facility] Name Value Range Interpretation Code Description [facility] JXREAx5zGaCRHjGt70/RCUzfPAZxo2DgLZhdFIf0YOcxFYUvS8BkDHA9kV1nQVY5PEuOGwBvNrGgNhHv [facility] [file] [id number]== ID Date Data Source [id number] 09/25/2019 09:00:20 AM EDT [facility] Name Value Range Interpretation Code Description Data Lynn rce(s) Supporting Document(s) [facility] JJPWQm5iOwTMXcFl90/UUCcgCGVkw1WeYNaqQQb3ARbjIGZxS8FcGFK2mJ2lSAA7WMcCJbDbGsWhExCs lbm [file] [id number]== ID Date Data Source [id number] 09/24/2019 03:18:40 PM EDT [facility] Name Value Range Interpretation Code Description Data Lynn rce(s) Supporting Document(s) [facility] YAVLVw5hStVSXyHi86/MXTmoSZIee0ZnMCmbYIh1KHasOOFnA9PcAZR8lD2aFUF1YNwHVbAvAdHfCqE6 lbm [file] [facility]///123vU075nzwTgJ1yg00uKLUB4VABZM58JX2lrRHxWg+pn1DttUHAGrOeWu1DoM7K3wnXng99 [file] ICAgICAgICAgICAgICAgICAgICAgICAgICAgICAgICAgICAgICAgICAgICAgICAgICAgICAgICAgICAg ICAgICAgICAgICAgICAgICAgICAgICAgICAgICAgIC ANCiAgICAgICAgICAgICAgICAgICAgICAgICAgICAgICAgICAgICAgICAgICAgICAgICAgICAgICAgIC AgICAgICAgICAgICAgICAgICAgICAgICAgICAgICAgICAgICAgICAgICANCiAgICAgICAgICAgICAgIC AgICAgICAgICAgICAgICAgICAgICAgICAgICAgICAg ICAgICAgICAgICAgICAgICAgICAgICAgICAgICAgICAgICAgICAgICAgICAgICAgICAgICANCiAgICAg ICAgICAgICAgICAgICAgICAgICAgICAgICAgICAgICAgICAgICAgICAgICAgICAgICAgICAgICAgICAg ICAgICAgICAgICAgICAgICAgICAgICAgICAgICAgIC AgICANCiAgICAgICAgICAgICAgICAgICAgICAgICAgICAgICAgICAgICAgICAgICAgICAgICAgICAgIC AgICAgICAgICAgICAgICAgICAgICAgICAgICAgICAgICAgICAgICAgICAgICANCiAgICAgICAgICAgIC AgICAgICAgICAgICAgICAgICAgICAgICAgICAgICAg ICAgICAgICAgICAgICAgICAgICAgICAgICAgICAgICAgICAgICAgICAgICAgICAgICAgICAgICANCiAg ICAgICAgICAgICAgICAgICAgICAgICAgICAgICAgICAgICAgICAgICAgICAgICAgICAgICAgICAgICAg ICAgICAgICAgICAgICAgICAgICAgICAgICAgICAgIC AgICAgICANCiAgICAgICAgICAgICAgICAgICAgICAgICAgICAgICAgICAgICAgICAgICAgICAgICAgIC AgICAgICAgICAgICAgICAgICAgICAgICAgICAgICAgICAgICAgICAgICAgICAgICANCiAgICAgICAgIC AgICAgICAgICAgICAgICAgICAgICAgICAgICAgICAg ICAgICAgICAgICAgICAgICAgICAgICAgICAgICAgICAgICAgICAgICAgICAgICAgICAgICAgICAgICAN CiAgICAgICAgICAgICAgICAgICAgICAgICAgICAgICAgICAgICAgICAgICAgICAgICAgICAgICAgICAg ICAgICAgICAgICAgICAgICAgICAgICAgICAgICAgIC AgICAgICAgICANCjw/pIMrS4hodNKkrhV9H2gcTb3MVh0UDV9pp6HmSBFwNWraepWtQdfWAkAhFSFjRj yFCur5VCllVO9ZyBDaP6AdQ4OeWYcgJI6CFJHcFRCrtNRfCFZkTPJfDbK9PQJdWZirON4LrTJoYWprNT XlYZGpRB6JOIZlF175gjHjXN4AZl7OShDwUW2cjf8D WCfuDLEiZcxODfl2JTmjVV6LlJJllIHaAKVxWXYPOlPvD0pnz4WwNbXxNFHFQOsvLD2Ae4RaqJWdFOp+ Rd3SYQ9wd7AjJRrzOGRjXE0mwz9FHMtUTgCtD1FplSrfUUZds2luKVVdHB7gaWCvRDX4VPbgrtHoXGNq HYJggUpoVKLliRDdjRBxOHdRM5hlVDSyLe8wSH1uQK TxPTFvJgU5FARXFJ7BMETbMRUdkYHiBAYzOBNKFA9HPBaoHSS8ZJGdnsIwdLYjMIqdXU9WGHWvhzWwDN kgMCBSDQo+Xs8FAJ6ad6RnIPcvHELkWU9iqb0SLTdGIzYlQ7P4gCIiB8P4PYacMt5LVJHqRRJiGJduNE ROILqaHB3JYT0zmqD0UD9JpKUqONBuXQMghNIoTDv7 V22imFUtMKolTM5VDYC+Antelmo+Gf4DNIVlFIJyGEVpSqBtQKQTXuEgX2NoP6PLl2JmX7WwVJ64fOmadsQe UFogSZ0AGH4cUOUkIISLYW7SyDVtwX8vtiWdRKYzPIHSWaZfP73hqBZyBRWvOFL1QWKfJw9PMORlX8Bz meHzeOhlosWyBKJhMSXNFA3MIJhrppTmtRXdrPtvBQ 56cNzmAF4BEx8TClFrAF0bpl2RkTHcWn1XBEIkSf8AACVfAATaHDQhHLU7VEAyVjOvTJlxEDXsMKOaCD Y8XDYtVXOjAY9PTuPbOPBuTHtqLxClXZUoIZOddv4YBCIwGDUrJAx4HMKePOFjTKFhNZndTISlSYPlDX B2PZTqUSDvNZ2RRuXuOPPqNTIfSWeeLJRuPSFvht4J YZQqOVTqCqNdVuVlNNOaEOKpJJhyXWSuYDMbXzZnWKDwACTvJQ6VBrTaRNEtRJO3YBzqOOGpTUSgcp2X QQJiNNBvUbOcUXBkLIEmSLPnHVybSFSyNDU5OMw0PVRpUGLmFI5LWuKeYNBhYFX0JKsaEYZiWOOwvb5Y RVNpTUNuUTn0ZUTfTLJvFCDiSCdiZNYpZNZ0FzLzIO EmPACpLV1LTrMcBRTaOGI9PPPzNEKmWHZhgm5MIXVgOJAoXun3NFJpBBIrQMMtZQocAUVgDEF1NBM0OZ UuSJWsOQ6UObMuOAMhTMpkKRXqWDAcDGDuab9SLKWjPOUiIxX2CKLqQHArIWVfIIwaWGIaHCV8WVf5TZ DjSYIyXD3IYxXvVGIyZOstDtTkNYVrELZzvs6DIEHg FXNdXLWcYAGjHTHzKXPvAFs6kfXtzZOtPEk1DS4PG4UbazYwZuRPUr8Py858MDDvGAFrVa1AW2fmIi9d JRMbPIOIFb2OZEh4YHSlJCBpTVCoUXUvY8RyOFFtTpGaCgP9MyV8YBMhIXI+PBn9GjZ1FpD2DSPuJQM8 VaP7WNE5CqLhDeZpQWRfJEV4Ef5aGCNFNc0+OVxnuFQabSgrWYPSDcM2ILFaSTfbAKZZYs0Y ID Date Data Source [id number] 09/22/2019 10:41:08 AM EDT [facility] Name Value Range Interpretation Code Description Data Lynn rce(s) Supporting Document(s) [facility] AAAYFo9cOyHXItXx55/WPXqjCVLtu7ByLNxnVTe5ZFjwFFGwL1MbKBP5hB4fISJ7QEyJYxQuDnRtLiF4 lbm [file] ICAgICAgICAgICAgICAgICAgICAgICAgICAgICAgICAgICAgICAgICAgICAgICAgICAgICAgICAgICAg ICAgICAgICAgICAgICAgICAgICAgICAgICAgICAgIC ANCiAgICAgICAgICAgICAgICAgICAgICAgICAgICAgICAgICAgICAgICAgICAgICAgICAgICAgICAgIC AgICAgICAgICAgICAgICAgICAgICAgICAgICAgICAgICAgICAgICAgICANCiAgICAgICAgICAgICAgIC AgICAgICAgICAgICAgICAgICAgICAgICAgICAgICAg ICAgICAgICAgICAgICAgICAgICAgICAgICAgICAgICAgICAgICAgICAgICAgICAgICAgICANCiAgICAg ICAgICAgICAgICAgICAgICAgICAgICAgICAgICAgICAgICAgICAgICAgICAgICAgICAgICAgICAgICAg ICAgICAgICAgICAgICAgICAgICAgICAgICAgICAgIC AgICANCiAgICAgICAgICAgICAgICAgICAgICAgICAgICAgICAgICAgICAgICAgICAgICAgICAgICAgIC AgICAgICAgICAgICAgICAgICAgICAgICAgICAgICAgICAgICAgICAgICAgICANCiAgICAgICAgICAgIC AgICAgICAgICAgICAgICAgICAgICAgICAgICAgICAg ICAgICAgICAgICAgICAgICAgICAgICAgICAgICAgICAgICAgICAgICAgICAgICAgICAgICAgICANCiAg ICAgICAgICAgICAgICAgICAgICAgICAgICAgICAgICAgICAgICAgICAgICAgICAgICAgICAgICAgICAg ICAgICAgICAgICAgICAgICAgICAgICAgICAgICAgIC AgICAgICANCiAgICAgICAgICAgICAgICAgICAgICAgICAgICAgICAgICAgICAgICAgICAgICAgICAgIC AgICAgICAgICAgICAgICAgICAgICAgICAgICAgICAgICAgICAgICAgICAgICAgICANCiAgICAgICAgIC AgICAgICAgICAgICAgICAgICAgICAgICAgICAgICAg ICAgICAgICAgICAgICAgICAgICAgICAgICAgICAgICAgICAgICAgICAgICAgICAgICAgICAgICAgICAN CiAgICAgICAgICAgICAgICAgICAgICAgICAgICAgICAgICAgICAgICAgICAgICAgICAgICAgICAgICAg ICAgICAgICAgICAgICAgICAgICAgICAgICAgICAgIC AgICAgICAgICANCjw/xLUlV6qhkNVtxwV9R1bnXj7EVd9LZY2gx2GwNLAwPSruzsRzIozOOzJwTRHmNp hZXuw2PMwpUK0CoPKlA1SzI6JcREpmKX6GOSSkBBLbgNJiTPQhUJQeHxA9FBFxIYteWU6GxBEwYJcgHB AwIFIgNyAwIFIgOSAwIFIgMTEgMCBSIDEzIDAgUiBd KLctWC0Sh7JmrMA6GZs+Bg3KQM9kf7PxULqmTxWwFE1hhu9ZHMdBUtKqL9BjuyW4AAL3JDHgAi2JPVMx SWWokSTzSWKcGEUMMmEzI2MidG93WVNCYt5+QWkuqiMsJsfXHcR8HCZdr8RfMJh0VU1IDEUxUIk7qGIo CVSfU7Urg5FoBz99CISoSifuMkWqztGuPTCYYLOeyG OzlrxrMELvVQTiHt2mDm2bSRZuTTX9EeRfMBESMN0BGFKjAWYnsOKoHHQyADBYCJ1UZDpbPPL7CVHxdx ApdQXnZVfdVP1PELFftnTnTsLrHTXNNWd+Mb4OGT1dj2OuTOmfHFRrKK7elz9YAGyPWtNcS4Q3fKXpD5 K4WCwkVp1YNAAlDVLaLwShAPCOSHirPU0DON2zqdE1 OV2TkFDkIDPgGUKbtSGiMTr4D42ggMAzJJlcRH9SVEC+Antelmo+Ky3ADCMnHQZqTPZzAaTrTSMSCdUpC7Dp R8TJh6TnH1PqTR68vAikhkPmQFfpPT5YGQ5zXPPxAFUWRQ6RlZPaqQ5labHjGkGbSKNBXhEvJ51ewXKc HRHrQLJbOIFbDa4QWCWsO9MralXvmJseayXvXSZcEC DRAN1OWYxfidRdlSArkEbbIS60dCflXL8BCg7CGoZqUW5voq7EkWZoIm8HPQQvAd9UKJFiBPCcZAHcNN U2HIZhVtThUQonYWHcVVFtNFL1YBVgZHJoXC6REzZmRJZaVaGaIKcrVOOwQLDapb7SBMKuBUViKZB3UC FdBUKvXGTiBWtfZZObKAPeAAI3FOBrGNAhFN4HOeTy GUDuYHC6GrPqPFPkASOfko9KZCAxBLIiTNk7RCHjUWDyDAEzJFczDTBqALO0OaX2QCUzKSDfIE0SEuGc PKLaACk2UyxfWAKuZYEsbb9IWTQnHSDcEKS8QAEvPLQpYCQhCDumHISqCXOwYIxaVELuXTMwSH5UPiMq UQPjLIN7ItWpLUWgTKSxcx9MDIOvAKDqDBDcVeEqVD KgOBMyQGhdMHJtZYW2ZFKiDBMfXBVbSY1PBhSpOGUrYRC2STUwALVaUMYgvl1QGVEeTEHoNvY8SkWoZS RnLFDhDFanXJCyQPI3BdDaXLEnVENaQQ6LYnVyPFKmCRI2ZXCbVNNrEHRjzd0QKFQnHYIoWzanCALgFS ZfUZLxUMsyBEMrZQR8SVT1WKZgKEBkYT7GIkUdJOQu IBdgTPAcGKCpPAQngz2BLUFdGNSxFGoaBEDqADZxAYKiCEtpRWMsDTJyIELnBRFpPBUpUI6GLwOcKDDj JtCcMEbgKIXnJARmdd6FLIPeATYoDEYmYMGfOQAlJUVgVTaxRAZhIVRkVcN6EJDwNUZxJU5FGbTpBJFo GjJ7KTikHPMbCJQwaw0ULJTpFWBpOIk8PHZdORSeAP YhSHjsXHOsFPScRVA1BFCtZMEfQW8XEsIiXNLpHzZ4QGYqDDEnQVIbyn9OAVCrFFPoPwO7EYNyMSCmDW NxHElyZIHsCLPyQav6ZEBbXUJeLK7YFcRqIRFwTbK3EQHwXOHmKCPbfe7ILPMdKIZuXZT2CABkUYNuQP JvFQhkLLYwCSR1LiL4CQSjXXVuPK5PJpWlBWFgYuJg RYCtAAEbDSSltt9OmWQsdKezad0HYFpRGr1WoNahZIU7CMcdDe2ueZDtUFIvASDVDd8VrcOpRNKvTOKU NQbdGYLzMCZ1ALNjLoucLFLbThB0FCg2YKGrLIPpK2F4G8V3QAH2PxS7BSL2RyDrLXS0X5EfISQ6HSbz XoS4DST2DITpXnLaQeT+QT8hMZf+Fw3Hm1UvrcU9pzSbUWwaYKQ3BR5YGWTLI5HVIi== ID Date Data Source [id number] 09/19/2019 12:00:00 PM EDT [facility] Name Value Range Interpretation Code Description Data Lynn rce(s) Supporting Document(s) SARS coronavirus 2 RNA [facility] This lab was ordered by [facility] and reported by [facility]. ID Date Data Source [id number] 09/16/2019 02:06:07 PM EDT [facility] Name Value Range Interpretation Code Description Data Lynn rce(s) Supporting Document(s) Progress Note [facility] CYJWAo5oRjSLDpKy21/VNTdiNNTdu2RlJItaWMr2BSnnFHSfC2ZsUVZ6jY6cOWW4SAaUZtDbGoMuMaUh lbm [file] miHRXcSLukMjBwSK6DPv1YYnU4TSV9yPSjDb6WAbH3HxZLXeOiXJ9IAPd= ID Date Data Source [id number] 09/16/2019 11:30:56 AM EDT [facility] MR BRAIN WITH AND WITHOUT CONTRAST [id number] FINAL RESULTInterpreted by:Jeanie Talbot MDEXAMINATION: MR BRAIN WITH AND WITHOUT CONTRAST [id number] INDICATION: brain met, surveillance.TECHNIQUE: Multiplanar and multisequence [...] rce(s) Supporting Document(s) ID Date Data Source [id number] 09/11/2019 08:26:52 AM [facility] Name Value Range Interpretation Code Description Data [facility] rce(s) Supporting Document(s) Leukocytes [#/volume] in Blood by Automated count 7.4 10*3/uL 4-10 [facility] Erythrocytes [#/volume] in Blood by Automated count 3.34 10*6/uL 4.1- 5.3 L [facility] Hemoglobin [Mass/volume] in Blood 11.8 g/dL 11.5-15.5 [facility] Hematocrit [Volume Fraction] of Blood by Automated count 35.3 % 3 6-45 L [facility] Erythrocyte mean corpuscular volume [Entitic volume] b y Automated count 105.9 fL 80-96 H [facility] Erythrocyte mean corpuscular hemoglobin [Entitic mass] by Automated count 35.4 pg 27-33 H [facility] Erythrocyte mean corpuscular hemoglobin concentration [Mass/volume] by Automated count 33.5 g/dL 32.0-36.0 [facility] distribution width [Ratio] by Automated count 16.8 % 11.5-14.5 H [facility] Platelets [#/volume] in Blood by Automated count 241 10*3/uL 150-400 [facility] Differential cell count method - Blood [facility] Neutrophils/100 leukocytes in Blood by Automated count 58 % [facility] Lymphocytes/100 leukocytes in Blood by Automated count 31 % [facility] Monocytes/100 leukocytes in Blood by Automated count 7 % [facility] Eosinophils/100 leukocytes in Blood by Automated count 3 % [facility] Basophils/100 leukocytes in Blood by Automated count 1 % [facility] Neutrophils [#/volume] in Blood by Automated count 4.29 10*3/uL 1.8-7 .0 [facility] Lymphocytes [#/volume] in Blood by Automated count 2.34 10*3/uL 1.2-4 .0 [facility] Monocytes [#/volume] in Blood by Automated count 0.50 10*3/uL 0-0.8 [facility] Eosinophils [#/volume] in Blood by Automated count 0.20 10*3/uL 0-0.5 [facility] Basophils [#/volume] in Blood by Automated count 0.11 10*3/uL 0-0.2 [facility] Nucleated erythrocytes/100 leukocytes [Ratio] in Blood by Automated count 0 /100{WBCs} 0-0 [facility] ID Date Data Source 09/11/2019 09:34:31 AM [facility] Value Range Interpretation Code Description Data Lynn rce(s) Supporting Document(s) Cobalamin (Vitamin B12) [Mass/volume] in Serum or Plasma 512 pg/ml 2 11-946 [facility] ID Date Data Source 09/11/2019 09:34:31 AM [facility] Value Range Interpretation Code Description Data Lynn rce(s) Supporting Document(s) Ferritin [Mass/volume] in Serum or Plasma 147 ng/ml 13-150 [facility] ID Date Data Source 09/11/2019 09:34:31 AM [facility] Value Range Interpretation Code Description Data Lynn rce(s) Supporting Document(s) Albumin [Mass/volume] in Serum or Plasma by Bromocresol green (BCG) dye binding method 4.1 g/dL 3.5-5.2 [facility] Bilirubin.total [Mass/volume] in Serum or Plasma 0.2 mg/dL <1.2 [facility] Calcium [Mass/volume] in Serum or Plasma 10.1 mg/dL 8.6-10.0 H [facility] Chloride [Moles/volume] in Serum or Plasma 96 mmol/L 98-107 L [facility] Creatinine [Mass/volume] in Serum or Plasma 1.11 mg/dL 0.50-0.90 H [facility] Glucose [Mass/volume] in Serum or Plasma 195 mg/dL 70-140 H [facility] Alkaline phosphatase [Enzymatic activity/volume] in Serum or Plasma 69 U/L 35-104 [facility] Potassium [Moles/volume] in Serum or Plasma 4.2 mmol/L 3.4-5.1 [facility] Protein [Mass/volume] in Serum or Plasma 7.3 g/dL 6.4-8.3 [facility] Sodium [Moles/volume] in Serum or Plasma 132 mmol/L 136-145 L [facility] Aspartate aminotransferase [Enzymatic activity/volume] in Serum or Plasma 25 U/L <32 [facility] Urea nitrogen [Mass/volume] in Serum or Plasma 16 mg/dL 6-20 [facility] Osmolality of Serum or Plasma by calculation 281 mosm/kg 275-300 [facility] Creatinine/Urea nitrogen [Mass Ratio] in Serum or Plasma 14 [facility] Bicarbonate [Moles/volume] in Serum 25 mmol/L 22-29 [facility] Alanine aminotransferase [Enzymatic activity/volume] in Seru m or Plasma 14 U/L <33 [facility] Anion gap 3 in Serum or Plasma 11 mmol/L 8-15 [facility] Glomerular filtration rate/1.73 sq M pre dicted among non-blacks [Volume Rate/Area] in Serum or Plasma by Creatinine-based formula (MDRD) 56 mL/min/1.73m2 >60 L [facility] Glomerular filtration rate/1.73 sq M pre dicted among blacks [Volume Rate/Area] in Serum or Plasma by Creatinine-based formula (MDRD) 65 mL/min/1.73m2 >60 [facility] ID Date Data Source [id number] 09/11/2019 09:34:31 AM [facility] Name Value Range Interpretation Code Description Data Lynn rce(s) Supporting Document(s) Thyrotropin [Units/volume] in Serum or Plasma 67.320 u[IU]/mL 0.270-4 .200 H [facility] ID Date Data Source [id number] 09/11/2019 10:13:53 AM [facility] Name Value Range Interpretation Code Description Data Lynn rce(s) Supporting Document(s) Iron [Mass/volume] in Serum or Plasma 86 ug/dl 37-145 [facility] Transferrin [Mass/volume] in Serum or Plasma 235 mg/dL 200-360 [facility] Iron binding capacity [Mass/volume] in Serum or Plasma 326 ug/dl 228 -428 [facility] Iron saturation [Mass Fraction] in Serum or Plasma 26.0 % 20-55 [facility] ID Date Data Source [id number] 09/15/2019 12:06:19 AM [facility] Value Range Interpretation Code Description Data Lynn rce(s) Supporting Document(s) Pyridoxine [Mass/volume] in Serum or Plasma 32.4 ug/L 2.0-32.8 [facility] (NOTE)This test was developed and its pe rformance characteristicsdetermined by [employer]. It has not been cleared or approvedby the Food and Drug Administration.Performed At: [facility] [id number] Sneed MD Ph:[id number] ID Date Data Source [id number] 09/15/2019 03:06:33 PM [facility] Value Range Interpretation Code Description Data Lynn rce(s) Supporting Document(s) Thiamine [Moles/volume] in Blood 211.5 nmol/L 66.5-200.0 H [facility] (NOTE)This test was developed and its pe rformance characteristicsdetermined by [employer]. It has not been cleared or approvedby the Food and Drug Administration.Performed At: [facility] [id number] Sneed MD Ph:[id number] ID Date Data Source [id number] 09/11/2019 09:32:41 AM [facility] Value Range Interpretation Code Description Data Lynn rce(s) Supporting Document(s) Folate [Mass/volume] in Serum or Plasma >4.77 [facility] ID Date Data Source [id number] 08/20/2019 12:24:23 PM [facility] Value Range Interpretation Code Description Data Lynn rce(s) Supporting Document(s) Progress Note [facility] BUMWVi2fZbKXFoHy55/IOCtvPNDbi6PrPOhlXSf5IGvpMWFyB7GgPJL4rE4eHNY3CCuGQtJnDnVeJeP9 lbm [file] AgICAgICAgICAgICAgICAgICAgICAgICAgICAgICAgICAgICAgICAgICAgICAgICAgICAgICAgICAgIC IfUPAvHNMaVOVnGGCuCG5NMGXgRVKtENUgXJQyIMDp ICAgICAgICAgICAgICAgICAgICAgICAgICAgICAgICAgICAgICAgICAgICAgICAgICAgICAgICAgICAg CVJxVAQtBSIlXRFoJQBvPHBqPEJsNQBkLX9RIPAqTKLyLASpNTZiAAEoPVKwMCQxJZIzFIXsTEEsEPFa ICAgICAgICAgICAgICAgICAgICAgICAgICAgICAgIC ZyOJGpHRRhGCXvUJFgKLKtQUAtUIJsDOZsCPMfMJPaDRIpWI8JFJCiBBIiOZGkEDNrENSpDVKqDEZaIC AgICAgICAgICAgICAgICAgICAgICAgICAgICAgICAgICAgICAgICAgICAgICAgICAgICAgICAgICAgIC NmCAFlKBIvXORqKEPwDKUuZW2GEFNeIIVwUKThUBLo ICAgICAgICAgICAgICAgICAgICAgICAgICAgICAgICAgICAgICAgICAgICAgICAgICAgICAgICAgICAg AOFsKWYpICVmOUCgGLVhRSKcYMCpHFCqAQPqKC5IFCNzVLMjIVVuCNZsEDHpPMZiZRIpVTWlLUXkVFRl ICAgICAgICAgICAgICAgICAgICAgICAgICAgICAgIC NsZMKlCOTaXDFdBEXqHJMkMKPsASZqCQFuWAWjPBQtBZBrAIDuNL6BQJWtWXUlRZFtRPOkUHYiUCEdPH AgICAgICAgICAgICAgICAgICAgICAgICAgICAgICAgICAgICAgICAgICAgICAgICAgICAgICAgICAgIC YoLWZwZGFiHKDyXPPfXOCgGDXnMC6UXESdBHZlJSPz ICAgICAgICAgICAgICAgICAgICAgICAgICAgICAgICAgICAgICAgICAgICAgICAgICAgICAgICAgICAg KYCeHOShTYIyTNKjHOImYYCpJXUwWZWhONYoOLDjGG4LKKZtPFPoXMTnAQQmDKSuBOBvNCPeDPCtYRSa ICAgICAgICAgICAgICAgICAgICAgICAgICAgICAgIC UtUPZpIGQwTJYtTHOkMXOeBIEhTQPeMZWpSEPnYZHxYDDePVYgQJJfUW5FFSXpLQLoHEOiWZCjNMYvZR AgICAgICAgICAgICAgICAgICAgICAgICAgICAgICAgICAgICAgICAgICAgICAgICAgICAgICAgICAgIC BwGSLhMQKdKPOuUPWqWSQmVMYkDMJlYJ4SEH26xWWs u4S6YLOlET3pgen/Zu2UEErmzvHkhTOdKM3HNmPrJO1ebk6TWcDqYG4wzq3QCScXAbWgM1E2eQCoRCPs OIPUBfBdT26kPIwuSm39XMouIGEpAgVbPCf8Rm4AYuTgZ2utXRSeWrT4GYElJwVlGIomPU7Lx6RthYPo DQo+Js0LPX5jy2HyMKwmHJKrFK1gyd6WUQoXXbUuJ6 ZwfnU2EOWdNGLvUu5AOOUfEHCwwXYiGNZxGJMGRwJuQ1FgzN65DMRTHy8+DQplbmRvYmoNCjIwIDAgb2 FiKUo4EI1MXOEkTPk2kBNiHFCdB4Urp5PpCc74EHCpNxuhWqYkalMuFWOUQVWseYVyszgqMZFhAKVaIy 1rEG1rSAKeYVG5JvF3BCUVQB7DYCWuJJLqeZFuRSBe GZEQUU9YPRolNPC2SNLhcpPmzAHsEUigYI6BUSUyilZlGUjhBYOCHPo+Wj6TXS4ok0ZsDHxoQGYwTH9r ba8DSWlAZuFnP0G5gRAaV1U3ZZvpDi0FCSLjITCrUIcrHJYRPCukOF9MYZ1ujoC6PP2CrYAeVAEfAXUl xQXkZTc5F44poFZxMExvUN3CORJ+Antelmo+Kk1PTMRuIG FbFQCjBzUxSHPCBcGgF9IgU8ECe8YeS3ZmRG10bQvfvlGuGJyoLE4IAQ4nGZEgWNIFXZ7OaSGecK8vsw SqJFAhCDRIGiBrB86jsDItDBVgVUP9YDDdOf5OLNVzB0VkhdCcrMzliiYmNLHxKPJLTP7KNPdqpwApxK TixFsuGG34sTviBE8AGk4TCkFdPS0iyn5FrUPkFa5P RSQbNv6QWQZnLASnMYRoWBD9DYJeBrIcJLidISCrIYLbCIO7GIIeARWvFY8DZiMfLPWrRLI0FQBjCSPh XENgvh2JGDRcFASzYAAnCDEjZOOvTQFaKCbhURYkPNOtUUE7GAHaIZSuTT9MAtMpADZbGBC6UippZSLa PPUfgc5AGZIxYAYjNRiiOZOtXWZhQKZeOSbfDIThVC UoExiaDJDvIYOnHI3OCuKgBWDdREN2DMBdXYOkRLSgey3RWZYwNVSfIyD2UvMuUEWrFTEsRAjoUTAlBX D4FOF9VRIuPBVjHO8HDwQhVKJmFSGcSrOwHZSfLXKjzx1HLQJfWOBgLUIsJlUmXCHlRTKzDSmzMTUeRN B6OBY0TCToRZLcHS4GPhJoGQNvGBFeAKFpMQQfISJv gi4YULXkEQAbEoU8MkZcQPBvRWViXRyxLCWmZFR9YzMkBPUgQEOeQG7RXnLuATAkPAT1LlvbGTIjCSWc yu7FCXJoFZNkLsT0VKBiHEZpQEZmFQniFSMcHYC7YxP9SAAzJFAoVY1JTeGsQURcXHf8RHgwMACiGWJa fp7DCIQdAEOvKZriOTLhDDIsXTXiOLk1nkXdkCQgLW d2QD0JB7WdiaXcWiNGHt6Gf866IIVwWTXbYm1XV2uiPn1bHNGzBVZCVh0ZBFk5QLL5XiNrPXtsFhWxQP YwMWVmZmVlMDNlMGQyZjFjYzQ+XPr6IHy4UNAnFCJvVII0FvSmJAJrIKYsB9FxMIJqDOSnGT2nAWDPCr 4+OTctjSKpxJhxEKNCJcP7JUjfXTdsBNCQXp9W ID Date Data Source [id number] 08/20/2019 12:24:18 PM EDT [facility] Name Value Range Interpretation Code Description Data Lynn rce(s) Supporting Document(s) Progress Note [facility] TZHJHc4qJhYYWiTd24/DVBapTAWdh2QfQSdoCLe2HMtvYMHsV7FkEBR6mG3aGGF5YMgKUcYpDyCcOfC2 lbm [file] cTWnxDApSbnj2LR/Tonny/OkWf82MDOe7iH2o3CFLX2H ks7AedesRt7/inés+oWuc2hL68gjb25i7TEOhCxX+kZYR3Eg1X3bZt3vYPDJpEthpztQitzon/OrJFZqi [file] AgICAgICAgICAgICAgICAgICAgICAgICAgICAgICAgICAgICAgICAgICAgICAgICAgICAgICAgICAgIC CuVJXmJQEhCQOgGZQuFXKuTQFoRY9JIESeEUMiGXEl ICAgICAgICAgICAgICAgICAgICAgICAgICAgICAgICAgICAgICAgICAgICAgICAgICAgICAgICAgICAg LNUdLNUuSPHmMFVnBMGpOVTcFBYmXMClXBFzNVPqEX8ZNIJyQGQyJHVmLJAkSZOgFCYkDEAnZKPnWMKn ICAgICAgICAgICAgICAgICAgICAgICAgICAgICAgIC AhTZSlIQLxGKBtETBrQFWeFTRjVEDaFFDnEHPfIEAvMFKtRCAsAQIgTI0GGSPhQWSyVMYwQDFgKYDrLM AgICAgICAgICAgICAgICAgICAgICAgICAgICAgICAgICAgICAgICAgICAgICAgICAgICAgICAgICAgIC GfFPVoFSWdTJNuQRIySSWkKVEpFLYgLH9RXYMlQNFj ICAgICAgICAgICAgICAgICAgICAgICAgICAgICAgICAgICAgICAgICAgICAgICAgICAgICAgICAgICAg FBPrHKAuNQYbECDrIVUuHZRyVYJjYRLeYZWoJKCaEPTxOH4ZIDNfYAJrHNJdNDYxRGVqRDGdSLGvIQGp ICAgICAgICAgICAgICAgICAgICAgICAgICAgICAgIC XeKXVvXJLfAMDkQGZrARDpICCcTFDdSPNiBXQkZEUuMWAlLHSvFNKuAQDaGO5AFVElZKBsTQEgQQLvNP AgICAgICAgICAgICAgICAgICAgICAgICAgICAgICAgICAgICAgICAgICAgICAgICAgICAgICAgICAgIC KkVSFuZFRnYNUgPELvXEAtDXLoLVSmRXIyYI5RJKJh ICAgICAgICAgICAgICAgICAgICAgICAgICAgICAgICAgICAgICAgICAgICAgICAgICAgICAgICAgICAg BUCfSSLdLWJzUALhJYCqKCYdSCLxRNOpEVAyLKYqUNPyLRUrKX9KJHGvMGUjQTVgJDZoNYKnLBMlQUXc ICAgICAgICAgICAgICAgICAgICAgICAgICAgICAgIC ZpIMOwAYSnIATbIOJvNEJyXTWrHKBoKIGwVCRwFBWiYPGgQBTkGJFvAVVeKMHdHL3UYKIhUVKnOKEySG AgICAgICAgICAgICAgICAgICAgICAgICAgICAgICAgICAgICAgICAgICAgICAgICAgICAgICAgICAgIC TgZYIeBVPlKXBpUHDhEQAeUADfOJNpWWBiKZHkHA5N EZ03xGUbp0U2LZPjHH5uvnw/Mt3PKIwnjlMqpSCeOP0KSsRxVK3hdu0AXgQpTK8kkx1RNHzMMsByU1R7 lYDcHUNzKMTEYxPpH57pWCsjLx84QFyuMYStNkMaTEk5Zl6EHjWoZ0ogQQWxUyC6NVJqRiR4SWNeCqX5 MKWoQbXdAPPyOIIjLDZfRQXTSLZ0THYuJsKmAcGeOO IiSHdkXSZANSHaFCLaJrMkGQowAZ7Mm3UgjSH6XJw+Ap4LME9py4MvKSh0QTMfFC0epy8KJLlABxEsQ2 BljtD4EWPaHVBeXw5QSMSrSWEnzQV2RjGxOWRPBdMqV1KdkI31SIXEFe1+DQplbmRvYmoNCjQyIDAgb2 IlEOj6BL0QQPPeTQv7nDQfFLJlP5Qon0TwHz92ZOOp DbcsZXZ1syWjAL8rSIKoQSWdBY7qfqhdPUSuWKEhGf5dUN3tCDZiNXN7KqC5YVPFJN1QNPZnCLMrmDSr QTAlFASBOR3FUNjsWRE6WQBrxtRytCOrQAkyQT4NFYBqgbMsIXPuDULLRDl+Rp8OZR4te3WbJRi5HxCe VG7pmr1OOFyORmDqG6R7yHDpR8G7FUhdZs6FCDXdHV WeAkmmMNZJFEfdVD3ZMZ2vhcI1QX7RrVFyBXSjHZXhgUJcVUu1O54hiMWmZBuuHO9ONZE+Antelmo+Pg0KIC DtWASsYPSfOkVsRFHWXiOoJ6LiU2JIu1ZcM8RySZ99mMrvqqFgVVqgGP3CAS8kLGZoRJBBZH8AuRCboV 9hdnG4DESlTQHYBlScM79emBDiNPKeUGQiHIEuXs3Z DXQyR5VjrlXvgKvzluWvTMEwYQRQPK7BVOjizbAkxWXvnHhzFB14lAheYM4UXu8MGxYoRF0wuk2KeSGl Ei8MZHH9LV3PUMLzNUFmLQGeJPU9MWZpNtLyVJvkAFSqUJRwLVV3PUXwAKHlEI4RAzHnAOAwXOj2VQIh VHDmBPZleg2DKAOfVXT5JJZ7CrWjQUGfKBDwGOneYF KiJQGaSAU4TCTeWCNjTJ2ZCaScZHIfUJFmTxVtIZAlUBVvcx0LACXkPNPgTWK1CUMiCBGcAIFhLFsnRA UcWWB4LpJ8SQBiBBCoXD1AUmEmSXZsULw2XKJjEEYwRSOulz6TYLInGIYgFEJ6QgGxQHUvJCYaHHrwGR PgHTZmJaCxPQLyOOGnQD9RBqOzGBRlDJV4HfNdUHZl DXSjbg9ICBRgSILuYeS0SUYdRKQlJQQqFMlrKKZtLWA4AdIlWWCoZTWlOY1IXcBaIVVlGBB0WQvuXJAa BIOxxy9SIEDwDIUdBKJbURBlJKTpGIUiOJqkQHOwKVBxWHBiYJVlTPNvOP4IRbNwDNGiXgT9YgOoHJTj TPFgkm7VVZLlTCSsCQC7YfEgDQIhVOBtWXfzNVYkZC D7TWI1GIKxFVUxYN6BIzBePOLnEqbpYjDhRYQxJAVwuy2LVTEfPIEqISs0YzIsEMUjIHMnSTbsQFRlCM OvXAgvFGUuNPBaTO7MLvDqZEVoOuRaYLGvFVXpWQVegw2ODYHtZXJzLzD0KCLdUUWbYORjSTytIVNwZO EfOEIgQPMsUHFoGT2CDmVaRLIfVlH0NTEkTBKpTXYr co0KLKEqPQRmAdW1JaEsVZFfQYOiURniXCTmXILvFAcyCQRlLHJqLX0RJeLpVZPjLGClSYUzTGAjMLXp ll3NPRRwWLB0MUNdDpYjNEGiZMCxWMirWBKnSPA0INR9QNVeSZRqJV6ZCiOiOUAbRZZwTKNzCYTsTPDw cu2XFFZqTQG1JzW9EAWvMQQwNDAaPXccKZTgHXF5HA w5WMUmKYBjIZ9ZQrWnSIScSSvjHanrNFOzHQYxhj4MCGVvZSL6RhX5INEpLHEfBEUxDEhhOZSjNYC0RF L7HBVbMYZjKL5DIiFxFXLvBRg4CQSdXUSyBWQgac2YIXLjUBM0XRx7BNBqOLZjHTOyKChaFHIaQBR9Kf MiMZMgBKTpCV5XZsRyHYLbXRX3DNRfPBDdHJWakd1O TSYdCOK0HCk9QvQgIYCrCMJlXQgeYVVcDCPlYIKzWNDlIIPaYS4QKcKhBNveLBHRLky6GSwmI1o6LZK8 TC4KA1Wsz2JoFBGoJLKXLRblNZ5xiwBfZLYxUx5XU3mDBkbqMOW4MvOiCSU0TJDnNXT6ZADmSmruHKQs TBRmXNwhNx3uPOH8YzgzSpYbVJP5HlLkIuD6HAK0OF Q8K7L6WeRfAHPkVgTlAD4GKe6EJhZ3SID9gGZhHb4TTKRoVhEPTrLcKB8MTGu= ID Date Data Source [id number] 08/20/2019 08:19:25 AM EDT [facility] Name Value Range Interpretation Code Description Data Lynn rce(s) Supporting Document(s) Leukocytes [#/volume] in Blood by Automated count 7.2 10*3/uL 4-10 [facility] Erythrocytes [#/volume] in Blood by Automated count 2.79 10*6/uL 4.1- 5.3 L [facility] Hemoglobin [Mass/volume] in Blood 9.6 g/dL 11.5-15.5 L [facility] Hematocrit [Volume Fraction] of Blood by Automated count 29.0 % 3 6-45 L [facility] Erythrocyte mean corpuscular volume [Entitic volume] b y Automated count 104.0 fL 80-96 H [facility] Erythrocyte mean corpuscular hemoglobin [Entitic mass] by Automated count 34.6 pg 27-33 H [facility] Erythrocyte mean corpuscular hemoglobin concentration [Mass/volume] by Automated count 33.2 g/dL 32.0-36.0 [facility] distribution width [Ratio] by Automated count 22.9 % 11.5-14.5 H [facility] Platelets [#/volume] in Blood by Automated count 296 10*3/uL 150-400 [facility] Differential cell count method - Blood [facility] Neutrophils/100 leukocytes in Blood by Automated count 60 % [facility] Lymphocytes/100 leukocytes in Blood by Automated count 29 % [facility] Monocytes/100 leukocytes in Blood by Automated count 10 % [facility] Eosinophils/100 leukocytes in Blood by Automated count 0 % [facility] Basophils/100 leukocytes in Blood by Automated count 1 % [facility] Neutrophils [#/volume] in Blood by Automated count 4.34 10*3/uL 1.8-7 .0 [facility] Lymphocytes [#/volume] in Blood by Automated count 2.09 10*3/uL 1.2-4 .0 [facility] Monocytes [#/volume] in Blood by Automated count 0.69 10*3/uL 0-0.8 [facility] Eosinophils [#/volume] in Blood by Automated count 0.01 10*3/uL 0-0.5 [facility] Basophils [#/volume] in Blood by Automated count 0.04 10*3/uL 0-0.2 [facility] Nucleated erythrocytes/100 leukocytes [Ratio] in Blood by Automated count 0 /100{WBCs} 0-0 [facility] ID Date Data Source [id number] 08/20/2019 08:43:05 AM EDT [facility] Name Value Range Interpretation Code Description Data Lynn rce(s) Supporting Document(s) Albumin [Mass/volume] in Serum or Plasma by Bromocresol green (BCG) dye binding method 3.1 g/dL 3.5-5.2 L [facility] Bilirubin.total [Mass/volume] in Serum or Plasma 0.2 mg/dL <1.2 [facility] Calcium [Mass/volume] in Serum or Plasma 8.8 mg/dL 8.6-10.0 [facility] Chloride [Moles/volume] in Serum or Plasma 95 mmol/L 98-107 L [facility] Creatinine [Mass/volume] in Serum or Plasma 1.01 mg/dL 0.50-0.90 H [facility] Glucose [Mass/volume] in Serum or Plasma 298 mg/dL 70-140 H [facility] Alkaline phosphatase [Enzymatic activity/volume] in Serum or Plasma 97 U/L 35-104 [facility] Potassium [Moles/volume] in Serum or Plasma 4.0 mmol/L 3.4-5.1 [facility] Protein [Mass/volume] in Serum or Plasma 6.4 g/dL 6.4-8.3 [facility] Sodium [Moles/volume] in Serum or Plasma 132 mmol/L 136-145 L [facility] Aspartate aminotransferase [Enzymatic activity/volume] in Serum or Plasma 18 U/L <32 [facility] Urea nitrogen [Mass/volume] in Serum or Plasma 10 mg/dL 6-20 [facility] Osmolality of Serum or Plasma by calculation 284 mosm/kg 275-300 [facility] Creatinine/Urea nitrogen [Mass Ratio] in Serum or Plasma 10 [facility] Bicarbonate [Moles/volume] in Serum 23 mmol/L 22-29 [facility] Alanine aminotransferase [Enzymatic activity/volume] in Seru m or Plasma 14 U/L <33 [facility] Anion gap 3 in Serum or Plasma 14 mmol/L 8-15 [facility] Glomerular filtration rate/1.73 sq M pre dicted among non-blacks [Volume Rate/Area] in Serum or Plasma by Creatinine-based formula (MDRD) 63 mL/min/1.73m2 >60 [facility] Glomerular filtration rate/1.73 sq M pre dicted among blacks [Volume Rate/Area] in Serum or Plasma by Creatinine-based formula (MDRD) 73 mL/min/1.73m2 >60 [facility] ID Date Data Source [id number] 08/20/2019 08:43:05 AM [facility] Name Value Range Interpretation Code Description Data Lynn rce(s) Supporting Document(s) Thyrotropin [Units/volume] in Serum or Plasma 1.100 u[IU]/mL 0.270-4. 200 [facility] ID Date Data Source [id number] 08/20/2019 10:31:49 AM [facility] Value Range Interpretation Code Description Data Lynn rce(s) Supporting Document(s) Cobalamin (Vitamin B12) [Mass/volume] in Serum or Plasma 615 pg/ml 2 11-946 [facility] ID Date Data Source [id number] 08/20/2019 10:31:49 AM [facility] Value Range Interpretation Code Description Data Lynn rce(s) Supporting Document(s) Ferritin [Mass/volume] in Serum or Plasma 373 ng/ml 13-150 H [facility] ID Date Data Source [id number] 08/20/2019 10:31:49 AM [facility] Value Range Interpretation Code Description Data Lynn rce(s) Supporting Document(s) Iron [Mass/volume] in Serum or Plasma 121 ug/dl 37-145 [facility] Transferrin [Mass/volume] in Serum or Plasma 165 mg/dL 200-360 L [facility] Iron binding capacity [Mass/volume] in Serum or Plasma 229 ug/dl 228 -428 [facility] Iron saturation [Mass Fraction] in Serum or Plasma 53.0 % 20-55 [facility] ID Date Data Source [id number] 08/24/2019 03:06:11 PM [facility] Value Range Interpretation Code Description Data Lynn rce(s) Supporting Document(s) Thiamine [Moles/volume] in Blood 132.6 nmol/L 66.5-200.0 [facility] (NOTE)This test was developed and its pe rformance characteristicsdetermined by [employer]. It has not been cleared or approvedby the Food and Drug Administration.Performed At: [facility] [place] [place], [place] [id number] Sneed MD Ph:[phone] ID Date Data Source [id number] 08/26/2019 02:07:43 PM [facility] Name Value Range Interpretation Code Description Data Lynn rce(s) Supporting Document(s) Pyridoxine [Mass/volume] in Serum or Plasma 20.0 ug/L 2.0-32.8 [facility] (NOTE)This test was developed and its pe rformance characteristicsdetermined by [employer]. It has not been cleared or approvedby the Food and Drug Administration.Performed At: [address] [id number] Sneed MD Ph:[phone] ID Date Data Source [id number] 08/20/2019 03:33:03 PM [facility] Name Value Range Interpretation Code Description Data Lynn rce(s) Supporting Document(s) Folate [Mass/volume] in Serum or Plasma >4.77 [facility] ID Date Data Source [id number] 08/15/2019 06:28:18 PM [facility] CT THORAX WITH CONTRAST [id number] RESUL TInterpreted by:Farooq Otero MDINDICATION: Follow-up extensive [...] rce(s) Supporting Document(s) ID Date Data Source [id number] 08/15/2019 11:09:58 AM [facility] CT ABDOMEN PELVIS WITH CONTRAST [id number] AL RESULTInterpreted by:Jose Antonio Guan, Gabriela Parker [...] rce(s) Supporting Document(s) ID Date Data Source [id number] 07/23/2019 04:33:48 PM EDT [facility] Name Value Range Interpretation Code Description Data Lynn rce(s) Supporting Document(s) Progress Note [facility] YEXBMs0cBkHDLpQk87/ZIPybKLNhn5TrLOscSZl8LEuyQHDzH9QeCCU3rK0nAHU1QBjJQrFyPiIyNZP0 lbm [file] 8Ko8DfuiD8jgNpDIthGFN5CK6OACJYG3LTEh== ID Date Data Source [id number] 07/23/2019 04:33:43 PM EDT [facility] Name Value Range Interpretation Code Description Data Lynn rce(s) Supporting Document(s) Progress Note [facility] AZBUVm3qDjGYLaWy29/AWZqsCRCfh8FuKZcuDWz3PIpsJHFeQ0BwFLJ4lL6tXZR3KJmMWdBpYhZkBRD2 lbm [file] ICAgICAgICAgICAgICAgICAgICAgICAgICAgICAgICAgICAgICAgICAgICAgICANCiAgICAgICAgICAg ICAgICAgICAgICAgICAgICAgICAgICAgICAgICAgIC AgICAgICAgICAgICAgICAgICAgICAgICAgICAgICAgICAgICAgICAgICAgICAgICAgICAgICAgICANCi AgICAgICAgICAgICAgICAgICAgICAgICAgICAgICAgICAgICAgICAgICAgICAgICAgICAgICAgICAgIC AgICAgICAgICAgICAgICAgICAgICAgICAgICAgICAg ICAgICAgICANCiAgICAgICAgICAgICAgICAgICAgICAgICAgICAgICAgICAgICAgICAgICAgICAgICAg ICAgICAgICAgICAgICAgICAgICAgICAgICAgICAgICAgICAgICAgICAgICAgICAgICANCiAgICAgICAg ICAgICAgICAgICAgICAgICAgICAgICAgICAgICAgIC AgICAgICAgICAgICAgICAgICAgICAgICAgICAgICAgICAgICAgICAgICAgICAgICAgICAgICAgICAgIC ANCiAgICAgICAgICAgICAgICAgICAgICAgICAgICAgICAgICAgICAgICAgICAgICAgICAgICAgICAgIC AgICAgICAgICAgICAgICAgICAgICAgICAgICAgICAg ICAgICAgICAgICANCiAgICAgICAgICAgICAgICAgICAgICAgICAgICAgICAgICAgICAgICAgICAgICAg ICAgICAgICAgICAgICAgICAgICAgICAgICAgICAgICAgICAgICAgICAgICAgICAgICAgICANCiAgICAg ICAgICAgICAgICAgICAgICAgICAgICAgICAgICAgIC AgICAgICAgICAgICAgICAgICAgICAgICAgICAgICAgICAgICAgICAgICAgICAgICAgICAgICAgICAgIC AgICANCiAgICAgICAgICAgICAgICAgICAgICAgICAgICAgICAgICAgICAgICAgICAgICAgICAgICAgIC AgICAgICAgICAgICAgICAgICAgICAgICAgICAgICAg ICAgICAgICAgICAgICANCiAgICAgICAgICAgICAgICAgICAgICAgICAgICAgICAgICAgICAgICAgICAg ICAgICAgICAgICAgICAgICAgICAgICAgICAgICAgICAgICAgICAgICAgICAgICAgICAgICAgICANCjw/ aAIlZ3hcoBPqzyC8L1naQf6ESh2SHL2nh9QbNVSiOA tppqNiOciPHhVeTEAhUfcJMys2ZSbiJQ9DeOTmJ9MsR3WaGGxxGP6FBMTqZNWggWQpURVwGNQpClG2VA HaWHtjDD5WlQSkOKofEALkYVEmHzNnLMPcCMBxRARkIUBwKGTVMICwEMWvNySrEPUwJQJwZIppZCABXS S0NCGdGbZrQQhjJN1So1UlaIO9TAc+Mw2ZJL4lr4Zi RUmlNBXlVJ6rym5WPRsOTtTeW0JeigB8VLRjDUEfLt4UCLXuIHCdoMC8IOUjWBGQCoNcD5WmvS82CIZV Cj4+PJwonaEdYlyJAsZuCNHkp8RdDFv6ZO7VASHfPLz3rYFkMMHrW0Key1StKj00ZXIeMgutBFV6mrLc HM7qVHCiFCVnEB7agoekZJDmBIMvZY9cKj1xFPKrYT Y3KhUlGUDLGV2IJZSqQTCgoSEqRQWbHNLWJC0WRSbsQSK0QLGzoaHahAAwYMjoFP1ZLVCsydYmImaoOY BSDQo+Xa8DKO4vp5DyYOm6SATeHS3yvn8DJFfETbTnS3Y7kXSpS1T0PPlyCf5XYBUvRJMvFunsFCSIXZ ygZG3AMY9ovaN9PB1RaCEtCNXcDULiaIZxJEq3E16o fIXuAJsoOZ9GLOM+Antelmo+Gq5KCBNtNSHuAKQcJnUyRFVCKoCmW0IaZ7XWg2JlF7NsDQ17oCrosuFtJVsn XW5JEU6pGKFyNZVKYK3LtFDveC4mknBbKNGpIXYHCuWnB14jbMStVZQxIBH6CMImPl2SYTVsQ5MzeoPa sLldltFpMVUiPZTMPR7PPMwuyqXbeCXbvGnwTA08nP cuUW5VLp3UObTpZD7yct8JhUCzKi4JYBV2Dp5ETHVyOUHrDFMqDOG4XQBzXnRpLIndHIQgJSVyPPM7YD JuHPUcGM7AFdXpFOBzHWO2JLHxFBRyWQHbrv8DQCKiSOO9WdskXZPvXHYdMMTjALghJXUuKAOnYOP2ZP LtWZSaRV4OLaLvVITsZFNeUVYaIULhGTOlhw6CDGYd WZOhMCJ7GoJoDUOcXHJpWZdeWWEcJBY3IeLzWJIkABIaPX5FAgUtFHUjUGb3KRSjPHVtZLVvoy1SJMHh PMIhIXX5OsJcNRZyOVPuXRwyJVLjIQWgOmTuBWSsPRXxUP0JRuYhZNRnRWJ0MAQyOPXxDAYvji7DUCVp CEEiQGY5SuUqWDNtSTYgHPzbTSAsPEP2WdK5GUHvAE XeXW5DOrCiGYLjCIU7QjEeLCTxUTJdvi7LKALbERNhBMB8TJHtEAKpXNVlNYduBLZgPFOjJwl8QUWvLG MsDD0CIkEyGRPeUyC7KIxsVHQpJWHdrm2MFLJmQIUgXZmgQLWcHJUhSOVvCWqyGYPsRZY1VBn9XEGnRE EmDF6UAfQgSBJtQaliGERdYONqOQWikt8PREXzSVAt ZCZ6ZLTrIWYcKUXeUFcfYMAjYJY3ZAB8WRCoDUAfPU8SMyQpLWUeRzs9RgWiTQMlGMRslk8RXRTvVPVh EED6JPSfMGYpZBRzHJddRTLgBRRdWzqfUEUsZCJgEF7DQnJpFEXdTlG6KuthRGLqASNflm7MTLYnUTR7 LkV8KEEnOTKuPCUyYBdbIOXpESOqQuN1ESHuSFMcKZ 2RAgUeEHUkCGB8WoFfXNRtPLBcep3XUVMaMHT4MaZ3BaPuGNFxUMGmXWeyFLFtCUOeMhD0WRJvYQXbNL 0JXhSiPHYjGVPpWgWfIOCyCXMpno1JOPBgVFZ6DXZ7ZIJxVRQsIAJaFMlrXUXjGKM5XbA6BLCbJKAhXP 5LCwRpFLXxYYO1DXWsCIMbCNOxlp2QYBXzYXV7SYs9 ITQtCHYsMTSzVFeaZYAzIFS7RUS5WAKtSENcHF8MUnNeKNDaQSSeTBYzSOMoHLMapj6LEZEvCNN4Ocm2 RbCxFYAxFZKwFCqiWLEfMCR5VEV9FZGhDJGfIC8UDvBbWVDmUTseZYKtSDKhAUCcak1VdWCgaIonvm9B GMrUMo7YrYsfHOZmAZygQt3jzGI0JXVbJWLHAy8Fdt RsBOOyFEIIUTgzJWUfHLX0RNPuH4RiK1OfVPMkTGHrCTyqYUK4RvM1BZL7ZUJ9HeR9ChCmMUHfSpL3SV XzGLT2DELnNUKmDAo2GKa6PHLsQVO+NA1lAFf+Fh0Sm9GdzhL7eiXaLXy6ONO5EW1NDHBMS2URGp== ID Date Data Source [id number] 07/23/2019 02:04:15 PM EDT [facility] Name Value Range Interpretation Code Description Data Lynn rce(s) Supporting Document(s) Progress Note [facility] FXFKQq5lJpNYZsOo84/BPWidWWSxf4QnOHzdBFk5BDtgEMDgE1PuUYH5hD6wXEY0ACtPAiIfPpWxEDL0 lbm [file] AwMDAwNzkxMyAwMDAwMCBuDQowMDAwMDEwODUxIDAw PXCzMA8GKxXlTLZeZGZuUSFlREZzFTVfsq8AXTYpIFJcApjqYRNwKBQtEVKgLVznZSTqAGH8SFW1WRRk LRBiLM3NJsLxEVJrMJLaZjxnZPHgUBWbfp0ODJRuHFBfCqZpQtWaMRAoDHRwBFofVMVnEOZ1KSZ4CXLo WWWlTB5AJgKkHQZrGJw0UVXvFQReSIDmkg5FUOLrCO PcOJVpJdSyBDOwAGFoZViiACVzFDO8CQM6VJAdUEJfZA7NVtWqSFOjIQk7YARtREIiHOWykd9GCTKyMI RcMEs4OJLmIHCiHMLhSRdbKFKfFJMlRWSlGPRvMFSiRG5RYqWqSEUwNzWmETOtMKKrDSLimn7HQOBpZC PmJxy2EEUlPVZaSZLoCPmuDTWzLFPpMBb1TMRyPPEw SF3ZJjDeJNBdYiDdRKVbIEZvCRHarj9KSSLgCECtFzT5FUSfUEQwOMKuHWxeKKZbIYWgBeKrSSVxSSLn AN2SGkMdMUAbEwM1HTFpASSkSQSzvj0OBPEoEYMwIMruQfEnYQRvSQRkZJejVTEkVWE0PDXcEEJzKVHl ZB8HQvCoIBEkWvC3HsegGRIdFTMlpo1OGCZbXKPuMh k2AASqJXPcFKOdSVysPGIqDHI2DYgwGWYwSBRuZZ9KDyPfSRPpPzxsXpBiJQUyXNYrxn9WpEVnrTbtem 1DVSpGIl2HuVviNPB5LFsbEn1gyDFzRKDgUIGUBc6XmqGbNOKzRPHUHIhzFQVfNFGpUqC3KYNfPQIpEA Z2XUSuRZfoLvqbIRD1UiNzGSC7IdI5R2Y9MgCoHKTz KCV4NpN7YdXeSsF4ZXM3NwetVHErWEv+QY3bTUs+Bg1Lu5JxhvD8gdHkGFgqFxU7Fm4CPBLCL5LYPs== ID Date Data Source [id number] 07/23/2019 09:29:13 AM EDT [facility] Name Value Range Interpretation Code Description Data Lynn rce(s) Supporting Document(s) Leukocytes [#/volume] in Blood by Automated count 7.2 10*3/uL 4-10 [facility] Erythrocytes [#/volume] in Blood by Automated count 3.26 10*6/uL 4.1- 5.3 L [facility] Hemoglobin [Mass/volume] in Blood 10.8 g/dL 11.5-15.5 L [facility] Hematocrit [Volume Fraction] of Blood by Automated count 31.2 % 3 6-45 L [facility] Erythrocyte mean corpuscular volume [Entitic volume] by Auto mated count 95.7 fL 80-96 [facility] Erythrocyte mean corpuscular hemoglobin [Entitic mass] by Automated count 33.2 pg 27-33 H [facility] Erythrocyte mean corpuscular hemoglobin concentration [Mass/volume] by Automated count 34.7 g/dL 32.0-36.0 [facility] E[facility]th[facility] distribution width [Ratio] by Automated count 19.3 % 11.5-14.5 H [facility] Platelets [#/volume] in Blood by Automated count 348 10*3/uL 150-400 [facility] Differential cell count method - Blood [facility] Neutrophils/100 leukocytes in Blood by Automated count 41 % [facility] Lymphocytes/100 leukocytes in Blood by Automated count 43 % [facility] Monocytes/100 leukocytes in Blood by Automated count 10 % [facility] Basophils/100 leukocytes in Blood by Automated count 3 % [facility] Neutrophils [#/volume] in Blood by Automated count 2.95 10*3/uL 1.8-7 .0 [facility] Lymphocytes [#/volume] in Blood by Automated count 3.10 10*3/uL 1.2-4 .0 [facility] Monocytes [#/volume] in Blood by Automated count 0.72 10*3/uL 0-0.8 [facility] Basophils [#/volume] in Blood by Automated count 0.22 10*3/uL 0-0.2 H [facility] Band form neutrophils/100 leukocytes in Blood by Manual count 2 % [facility] Metamyelocytes/100 leukocytes in Blood by Manual count 1 % [facility] Band form neutrophils [#/volume] in Blood by Manual count 0.14 10*3 /uL 0-0.6 [facility] Metamyelocytes [#/volume] in Blood by Manual count 0.07 10*3/uL 0-0 H [facility] ID Date Data Source [id number] 07/23/2019 10:11:53 AM EDT [facility] Name Value Range Interpretation Code Description Data Lynn rce(s) Supporting Document(s) Albumin [Mass/volume] in Serum or Plasma by Bromocresol green (BCG) dye binding method 3.2 g/dL 3.5-5.2 L [facility] Bilirubin.total [Mass/volume] in Serum or Plasma 0.3 mg/dL <1.2 [facility] Calcium [Mass/volume] in Serum or Plasma 9.5 mg/dL 8.6-10.0 [facility] Chloride [Moles/volume] in Serum or Plasma 96 mmol/L 98-107 L [facility] Creatinine [Mass/volume] in Serum or Plasma 1.03 mg/dL 0.50-0.90 H [facility] Glucose [Mass/volume] in Serum or Plasma 301 mg/dL 70-140 H [facility] Alkaline phosphatase [Enzymatic activity/volume] in Serum or Plasma 122 U/L 35-104 H [facility] Potassium [Moles/volume] in Serum or Plasma 4.5 mmol/L 3.4-5.1 [facility] Protein [Mass/volume] in Serum or Plasma 6.8 g/dL 6.4-8.3 [facility] Sodium [Moles/volume] in Serum or Plasma 132 mmol/L 136-145 L [facility] Aspartate aminotransferase [Enzymatic activity/volume] in Serum or Plasma 15 U/L <32 [facility] Urea nitrogen [Mass/volume] in Serum or Plasma 13 mg/dL 6-20 [facility] Osmolality of Serum or Plasma by calculation 284 mosm/kg 275-300 [facility] Creatinine/Urea nitrogen [Mass Ratio] in Serum or Plasma 13 [facility] Bicarbonate [Moles/volume] in Serum 24 mmol/L 22-29 [facility] Alanine aminotransferase [Enzymatic activity/volume] in Seru m or Plasma 17 U/L <33 [facility] Anion gap 3 in Serum or Plasma 12 mmol/L 8-15 [facility] Albumin/Globulin [Mass Ratio] in Serum or Plasma 0.9 [facility] Glomerular filtration rate/1.73 sq M pre dicted among non-blacks [Volume Rate/Area] in Serum or Plasma by Creatinine-based formula (MDRD) 62 mL/min/1.73m2 >60 [facility] Glomerular filtration rate/1.73 sq M pre dicted among blacks [Volume Rate/Area] in Serum or Plasma by Creatinine-based formula (MDRD) 71 mL/min/1.73m2 >60 [facility] ID Date Data Source [id number] 07/23/2019 10:11:53 AM [facility] Name Value Range Interpretation Code Description Data Lynn rce(s) Supporting Document(s) Magnesium [Mass/volume] in Serum or Plasma 1.5 mg/dL 1.6-2.6 L [facility] ID Date Data Source [id number] 07/23/2019 10:11:53 AM [facility] Value Range Interpretation Code Description Data Lynn rce(s) Supporting Document(s) Thyrotropin [Units/volume] in Serum or Plasma 0.482 u[IU]/mL 0.270-4. 200 [facility] ID Date Data Source [id number] 07/22/2019 11:10:56 AM [facility] Value Range Interpretation Code Description Data Lynn rce(s) Supporting Document(s) Progress Note [facility] OHIQUa0mOqDJAcNa44/BSTzoDIItm8IrTCssMNg8YWpgFJKsZ4ObYOM5gU3uLZW5EXmECyNqOfXhMLD6 lbm [file] AwMDAxMjExNSAwMDAwMCBuDQowMDAwMDEyMzEyIDAw ERMqYL8SWpJaHJYdLZF5NCNdPLPrZAAwhi8QASIuMEHsObQ4VTIgHPTyQERqJPtpJEQqJYOsHzU3CUBf JEAuEC2TDbNtAPHfWVH2BGEfBBQgLSMwkt5SZNUjWWVwJOA7RVJlPNZsUCZaRLwvCFVtFWD2PXf6UBFp WBVjBT7ZWmDcIBWtKzF2ODdaZYKgJJIcgj8NTWIoTF SfZjR2HMMhHXVqSXSjJMorFOOnLIX2VoK6IKHhIRZbON0MSgCcFECuSgX1VAZhDDKbXPHqvi7TPBPyLI RxHDN3ZEEgWRJqKSQlOQawSJLmWWL9HZL6FQBkAHPmTZ3DJoOzNIKhAcrcRiBoOGGiMPXqod7QvBYhqY xfkh3PIWgUNt8RfVpoJKU4ZKqvIs1sjTLxZGXcOXBG Cf8HbaAeLGNbXNSDPLgoRGKdGSIzJBFwTmk3VKWaMpBmCUCyFoY2Dsr4JvcyOkGtDBw2HnR2BeB5AxZ4 PvO2AYN4QBO2VIUgUfC6CUv9CNFfMDK4LRF+QN4aIIt+Ox8Pt3EddpB7vyAxZXuqENBaHT2HXAFRI3NC Cg== ID Date Data Source [id number] 07/14/2019 03:10:06 PM EDT [facility] MR BRAIN WITH AND WITHOUT CONTRAST [id number] FINAL RESULTInterpreted by:Brady Luciano MDEXAMINATION: MR BRAIN WITH AND WITHOUT CONTRAST [id number] INDICATION: History of small cell lung cancer [...] rce(s) Supporting Document(s) ID Date Data Source [id number] 07/04/2019 07:56:29 AM EDT [facility] Name Value Range Interpretation Code Description Data Lynn rce(s) Supporting Document(s) Progress Note [facility] EZGHUs5rLeLHFqJa35/SYLzgDVQxv3HjBOfoHAq3FHxkKCUlO8OpCUY9jQ4dNQN2MQyQRqVlSaExZHC1 lbm [file] AgICAgICAgICAgICAgICAgICAgICAgICAgICAgICAgICAgICAgICAgICAgICAgICAgICAgICAgICAgIC AgICAgICAgICAgICAgICANCiAgICAgICAgICAgICAg ICAgICAgICAgICAgICAgICAgICAgICAgICAgICAgICAgICAgICAgICAgICAgICAgICAgICAgICAgICAg ICAgICAgICAgICAgICAgICAgICAgICAgICANCiAgICAgICAgICAgICAgICAgICAgICAgICAgICAgICAg ICAgICAgICAgICAgICAgICAgICAgICAgICAgICAgIC AgICAgICAgICAgICAgICAgICAgICAgICAgICAgICAgICAgICANCiAgICAgICAgICAgICAgICAgICAgIC AgICAgICAgICAgICAgICAgICAgICAgICAgICAgICAgICAgICAgICAgICAgICAgICAgICAgICAgICAgIC AgICAgICAgICAgICAgICAgICANCiAgICAgICAgICAg ICAgICAgICAgICAgICAgICAgICAgICAgICAgICAgICAgICAgICAgICAgICAgICAgICAgICAgICAgICAg ICAgICAgICAgICAgICAgICAgICAgICAgICAgICANCiAgICAgICAgICAgICAgICAgICAgICAgICAgICAg ICAgICAgICAgICAgICAgICAgICAgICAgICAgICAgIC AgICAgICAgICAgICAgICAgICAgICAgICAgICAgICAgICAgICAgICANCiAgICAgICAgICAgICAgICAgIC AgICAgICAgICAgICAgICAgICAgICAgICAgICAgICAgICAgICAgICAgICAgICAgICAgICAgICAgICAgIC AgICAgICAgICAgICAgICAgICAgICANCiAgICAgICAg ICAgICAgICAgICAgICAgICAgICAgICAgICAgICAgICAgICAgICAgICAgICAgICAgICAgICAgICAgICAg ICAgICAgICAgICAgICAgICAgICAgICAgICAgICAgICANCiAgICAgICAgICAgICAgICAgICAgICAgICAg ICAgICAgICAgICAgICAgICAgICAgICAgICAgICAgIC AgICAgICAgICAgICAgICAgICAgICAgICAgICAgICAgICAgICAgICAgICANCiAgICAgICAgICAgICAgIC AgICAgICAgICAgICAgICAgICAgICAgICAgICAgICAgICAgICAgICAgICAgICAgICAgICAgICAgICAgIC AgICAgICAgICAgICAgICAgICAgICAgICANCjw/eHBh Z6sooIGzjqE8K9qxNk2PUm0IAN2fg6VvKCTlGXiqcsRiEvcSLmVmQKAgRprOCyy7GGkvDR4XrIScO1Vs M2VrRNrzBN6XXWHkHIBynLBaRFHqOKXwCjX8HQSdSLwwUF6TnCYsWYfbNVLoJTGwRU5OSYHcZ575trXu NR9HPa2QToCuOB6nkw8GMJdzKFWhBbgEUul2OIvqSF 4PpTRphIXrKDPaRFLBOrZfW7eim0IrBgBlZRMSPAdkUK3Xz9KvfUSzZAg+Tb8YZB4gm9FnZMqrVUGnOE 9ovn2OBHjWEtQbW7HvmLkzAYDal2cpTSImWP3tpZLtJLJ9VIAdyt5upxVuAwJIf2oza6uqHY4SKMO0LF MbWd2zEGZnPAPbZwClZZINCP2DCPJoTKSjfWOfGGGo FLMYTQ2IXNgjCFZ5GNMoymYtaBTnWGaiST8TDQZfkcGqLHxyHKHTBUq+Ub6CQW9dc4HyVGyjLTKrVU4b zh8LFGpCPbFjJ0C2nIWrQ2D6ZImwKp8ZXKZjCZWvVYjbZILFPYfgMH7BNV6ostK3AM9WhSOdLZVpABYz kABsOQf6F88umSJiCNocZW4ZAXO+Antelmo+Rt6LWITcDA TqWKQpRcRsJEPSJeCnI2YfI4IWm2HbV7RmPS27bSgappWlVNepKP0FOD9rTOKjLGEPIE6AzXTtzI4pcw FkGMPvGSLRHrDyQ99ysCQqUCSzWWD1YKOjVb9XDQZdO9CcjdKgtAillrFaUTDmROBZTU6AMKppqoYxkQ AtwBpsYL45qVxeMO6GHg4AKxAmMI6wby8VlIFkTb9G KBWeRl5XDPEiHIQcWJBuIFW2WUJcTgQvXOreQNWtGDWeHDT9IUTmSTQrPW4ZEvCsHTXkXZH8FEIaBYWm KYKxtn1XNIRgWJRuYWSxOOLtWIUnXUZkEWjcYDFvTWRcWVZ1NKHkTOUzEH2HJaVuHYBpCHE2YvicZJWg DZUcpp0ELKLxBDFcOEakDuWbNZXiFHSrTCwuCKCqBX CaMqxwUJWdVUCqPA3UKqUnCUQiCGC9JJhoKTUnGCPddk0UIZQmJSKrByG6LdQxUYRcBYMbGBgxVOBwRM O1BYO5PQTtETMzTO3XMbLqDXUmSMKyBlimVFYnGRJvqt4YYNLiXFRzKFYyRZQqTGCqVYQmCUfgSREvER L7OPT2WBFjYJKkBV1DIaNrQSOyHCRvCNAnYBIjUTRd cm3MRZAmUVZmLsY0EJQqVCFtDMWsILhvSKFbWCR0NxT9TQFnHNIeVB7ZGaMwFDZaRIM7SSZbJQLvHZTc xl4FFENcAZKgVpY5SEDtNRJiHQKmVCwoOFMoEJR4JbZ2HCEmLAJrRT0BNgByOGMdSIk7ZHniOGOoHUCt cn3VTFDdRJMuMNxrRXYuVWPfXSKgBHc2kkLyoKNcFO x8TS6CP1GkrjOrFtBGRy3Aa433DBVtYJMqIc5FF1viIc7mZLLmUERIZu8AWXm2JyR3WSS4PLO4QLG1Kz h0JxA2OXIzKIs6UToiHuatBAY+DBf7ZFksTgz1KrXzYScbJcTgTpehEoU5GUOlZACuKLS6Fe0sSIQZJx 4+FTadvLFwkJxsKMBBUmV4ITprRMwoYUIULg2E ID Date Data Source [id number] 07/04/2019 07:56:24 AM EDT [facility] Name Value Range Interpretation Code Description Data Lynn rce(s) Supporting Document(s) Progress Note [facility] OCBKHn0tTkIXXwEt45/SDBlrIAZux7XqSPjhMQm4VLemVDQzC5VbDDH9nD5eFKO4ZFoPSgEpYqFtGJJ9 lbm [file] AgICAgICAgICAgICAgICAgICAgICAgICAgICAgICAgICAgICAgICAgICAgICAgICAgICAgICAgICAgIC AgICAgICAgICAgICAgICAgICAgICAgICAgICAgICAN CiAgICAgICAgICAgICAgICAgICAgICAgICAgICAgICAgICAgICAgICAgICAgICAgICAgICAgICAgICAg ICAgICAgICAgICAgICAgICAgICAgICAgICAgICAgICAgICAgICAgICANCiAgICAgICAgICAgICAgICAg ICAgICAgICAgICAgICAgICAgICAgICAgICAgICAgIC AgICAgICAgICAgICAgICAgICAgICAgICAgICAgICAgICAgICAgICAgICAgICAgICAgICANCiAgICAgIC AgICAgICAgICAgICAgICAgICAgICAgICAgICAgICAgICAgICAgICAgICAgICAgICAgICAgICAgICAgIC AgICAgICAgICAgICAgICAgICAgICAgICAgICAgICAg ICANCiAgICAgICAgICAgICAgICAgICAgICAgICAgICAgICAgICAgICAgICAgICAgICAgICAgICAgICAg ICAgICAgICAgICAgICAgICAgICAgICAgICAgICAgICAgICAgICAgICAgICANCiAgICAgICAgICAgICAg ICAgICAgICAgICAgICAgICAgICAgICAgICAgICAgIC AgICAgICAgICAgICAgICAgICAgICAgICAgICAgICAgICAgICAgICAgICAgICAgICAgICAgICANCiAgIC AgICAgICAgICAgICAgICAgICAgICAgICAgICAgICAgICAgICAgICAgICAgICAgICAgICAgICAgICAgIC AgICAgICAgICAgICAgICAgICAgICAgICAgICAgICAg ICAgICANCiAgICAgICAgICAgICAgICAgICAgICAgICAgICAgICAgICAgICAgICAgICAgICAgICAgICAg ICAgICAgICAgICAgICAgICAgICAgICAgICAgICAgICAgICAgICAgICAgICAgICANCiAgICAgICAgICAg ICAgICAgICAgICAgICAgICAgICAgICAgICAgICAgIC AgICAgICAgICAgICAgICAgICAgICAgICAgICAgICAgICAgICAgICAgICAgICAgICAgICAgICAgICANCi AgICAgICAgICAgICAgICAgICAgICAgICAgICAgICAgICAgICAgICAgICAgICAgICAgICAgICAgICAgIC AgICAgICAgICAgICAgICAgICAgICAgICAgICAgICAg ICAgICAgICANCjw/sVQiF8imyLRyuxO9S2ftEm9ATq5NOM2yi2VuZKXcDEaqioXmJbiIHlGaKJDbXttP Cib5SAwmRJ6JcZYdD9JhS5FeRZhwCI6HKVZdDUKuxOVcGYAbNTNpGeX1CCNzNAdrYR6PzDVfPTotTKKg IFIgNyAwIFIgOSAwIFIgMTEgMCBSIDEzIDAgUiAxNS OrXTLmWOqyUAHGAOA6YZFyXqTkGMlxBC4Vq6KxiVY5ADa+Py0TLN2zn2WbCMllOQVgCV7xqu9RODjFOm ZvQ7WsmpB8KBTkTTMoWo5IWMLrEETjdWF6QKXmPHNHQvVnN4UdoD34SUVGGw5+DQplbmRvYmoNCjQwID Cnp8PnBXj0AM5DPRFjHCf0mKJfDFZaX9Vqz0XjOz80 SWMwKgtdZJS3kkFdZA5fFNWnCZCbNE1amoirDMEaRGWwTJ98KcFsJuDxMOS9WVDmHX8gZJasDI1JYVH2 KAuxXHRrMLHlZ1jBNaDbORSrBvUjwZcwRQ6AXjOqJ9WbutDjaVUiMHEqAKRMDn2+DQplbmRvYmoNCjQx ODBtm0MwOIv5QS6ZBBTkTKonQZ2SSOEjrR8yPVhiFV 7WCpIrDtTaYOXKCeZvH22uoUDzZAl6G0NuMdAvZYXsDaamOXWaXLjvSiQsHBPgFzEpRBclWO0+ID4+DQ bkQD1WQGvqbdCiYKAnSz0DUHXqDDDjRS5lDGXxULIxK8N6fSgrLFRJMwXpH7jsxhbnWY0jYMFvV426aG mivhNhKVC7MFMtIr0EXWUnNCB7UTWcgRFkKnrkGRAF RUalGQ2SrZTgJHY1xM4mAKwgWIUgBTSdH6tFImCceCyaGY19wGmgrgRxsRRvZJo+Xq7QBD2qj6KnHZp9 ahBpDBcvVUXgVXbqGQOvYQJdTWGsQZL7VEY6NFVZJmMcNAEdACRnIYfqBBTjWJLwyy1ALQFaBZJ6UUD0 WDJqHZWgDNTzVNseHROdGBE6SKXxPVHpOIBmHI4CMe VwEBBwIBDmDYmjSQShUCAlsf0XBVOcVQAaUPC0IlWsNVDoAFBaUIdqAOKaUWK5DVUqILXrBGIcML9DVk JwLLBjMHxeYgOpQXIdKXAnlw5PZAKoFRHlEEVvMBRwLLKbQGKnGQpnXRKrMUVpHcXqQRSsEWGpOQ8RVw PnWMJrXRW8FJIyPHNpWIBagv4KXEMvZSPnWNZ2QDGl UTYwBGVmMUtuSWUsIVO8CtZ4LWVnMYLoAH6PGnPhCGJcKGO8ZFIhFLFpZZYmhc4EALTlKRKfUuI4KTHw IXNrARBwXRruVVEfMOAmAlfvJWXrACBtNW6ZZvKvCLNiIjT7YVuqIKYhKRAsxd9ERBMwDHHmCGFxSBVo NCZsMDHhHGlzYKYdXFG5JdW2NOVhTVUjIR7OOmVkZQ NhKmF1RSKfQFAfVMVwio1GESCwQBYlExy1KCRpGAKhFSVrQKmuTAQqPVR3IEFvGLKsRRFsKC4AHlAqND MqYfncJAhbFUOaYOEckc5SIUXdOWLhEWKjJLXkCKWsFMNyITgxRBCuDTQ8WeX6VQScZHTjWB8AXwQuMI OmNvn4QyQoFHTuTEWuxe7LIGQpFOIdFMZ6KPClMCNg KGHkAIqfASJpPTNkPBf6NFCwNDZkTM6ARuUqVVIxVBB1QMPlHWGnFSFjhu7DDRVsOZB4RRYvZlJhZPIw RZJjGJwxAVFqZVXhVLLmYAAoGUZeTC8UJkJmKSLsWOPiALbwJEPbOAHmgp8MVWDfXVI3Aib7SpIwWRBm GLJuEMuoZAZjOWIlEBI6JHEwZMVmDO4DBdHeLIMsZL DlTwpsGKAyOUEknl4BXTXrEGC5BGW1KqBhVCQuLYXfSAdvVVMwWOG2TOWnXUQjWJIbRB5EEjZjKXNjAL H1NkysLOOhBDZkna5FRUWhUHH4QLU6WLBdPSHnMTTjZVgrBIItSGG4MGL5ZKSiCXRpBV1RZeXuZPHfMG H2RcsgVYBoMIFjce8JXMZoLLI5Axv1QVCeLEMiDIGx ONb6omYdeBDbMQt7UE5JZ0TbhvXnYWXVVl0Qf479PWZbZRUrCn6IX3qwCl4mJTLsMFKWEg5UPEy1KvMn XwMlXhAzV4W1KXGpKIXzBiWsGMCcBHQkOCC9GoB+YRl2TMKnWQFgFsTvHnB1JUAbStK1J3FdSWDzYoXq PZM3WF2aZNWYMq3+MHwlbSUliEqvMVZNMsS9ZQR8SEwhSCYZYe3S ID Date Data Source [id number] 07/02/2019 10:19:26 AM EDT [facility] Name Value Range Interpretation Code Description Data Lynn e(s) Supporting Document(s) Albumin [Mass/volume] in Serum or Plasma by Bromocresol green (BCG) dye binding method 3.6 g/dL 3.5-5.2 [facility] Bil[facility].total [Mass/volume] in Serum or Plasma <1.2 [facility] Calcium [Mass/volume] in Serum or Plasma 8.8 mg/dL 8.6-10.0 [facility] Chloride [Moles/volume] in Serum or Plasma 98 mmol/L 98-107 [facility] Creatinine [Mass/volume] in Serum or Plasma 0.86 mg/dL 0.50-0.90 [facility] Glucose [Mass/volume] in Serum or Plasma 264 mg/dL 70-140 H [facility] Alkaline phosphatase [Enzymatic activity/volume] in Serum or Plasma 111 U/L 35-104 H [facility] Potassium [Moles/volume] in Serum or Plasma 3.6 mmol/L 3.4-5.1 [facility] Protein [Mass/volume] in Serum or Plasma 6.7 g/dL 6.4-8.3 [facility] Sodium [Moles/volume] in Serum or Plasma 137 mmol/L 136-145 [facility] Aspartate aminotransferase [Enzymatic activity/volume] in Serum or Plasma 16 U/L <32 [facility] Urea nitrogen [Mass/volume] in Serum or Plasma 12 mg/dL 6-20 [facility] Osmolality of Serum or Plasma by calculation 293 mosm/kg 275-300 [facility] Creatinine/Urea nitrogen [Mass Ratio] in Serum or Plasma 14 [facility] Bicarbonate [Moles/volume] in Serum 24 mmol/L 22-29 [facility] Alanine aminotransferase [Enzymatic activity/volume] in Seru m or Plasma 22 U/L <33 [facility] Anion gap 3 in Serum or Plasma 15 mmol/L 8-15 [facility] Albumin/Globulin [Mass Ratio] in Serum or Plasma 1.2 [facility] Glomerular filtration rate/1.73 sq M pre dicted among non-blacks [Volume Rate/Area] in Serum or Plasma by Creatinine-based formula (MDRD) 77 mL/min/1.73m2 >60 [facility] Glomerular filtration rate/1.73 sq M pre dicted among blacks [Volume Rate/Area] in Serum or Plasma by Creatinine-based formula (MDRD) 89 mL/min/1.73m2 >60 [facility] ID Date Data Source [id number] 07/02/2019 10:19:26 AM [facility] Name Value Range Interpretation Code Description Data Lynn rce(s) Supporting Document(s) Magnesium [Mass/volume] in Serum or Plasma 1.3 mg/dL 1.6-2.6 L [facility] ID Date Data Source [id number] 07/02/2019 10:20:54 AM [facility] Name Value Range Interpretation Code Description Data Lynn rce(s) Supporting Document(s) Leukocytes [#/volume] in Blood by Automated count 12.2 10*3/uL 4-10 H [facility] Erythrocytes [#/volume] in Blood by Automated count 3.76 10*6/uL 4.1- 5.3 L [facility] Hemoglobin [Mass/volume] in Blood 12.1 g/dL 11.5-15.5 [facility] Hematocrit [Volume Fraction] of Blood by Automated count 35.6 % 3 6-45 L [facility] Erythrocyte mean corpuscular volume [Entitic volume] by Auto mated count 94.7 fL 80-96 [facility] Erythrocyte mean corpuscular hemoglobin [Entitic mass] by Automated count 32.1 pg 27-33 [facility] Erythrocyte mean corpuscular hemoglobin concentration [Mass/volume] by Automated count 33.9 g/dL 32.0-36.0 [facility] E[facility]throcyte distribution width [Ratio] by Automated count 15.4 % 11.5-14.5 H [facility] Platelets [#/volume] in Blood by Automated count 392 10*3/uL 150-400 [facility] Differential cell count method - Blood [facility] Neutrophils/100 leukocytes in Blood by Automated count 53 % [facility] Lymphocytes/100 leukocytes in Blood by Automated count 31 % [facility] Monocytes/100 leukocytes in Blood by Automated count 7 % [facility] Eosinophils/100 leukocytes in Blood by Automated count 1 % [facility] Neutrophils [#/volume] in Blood by Automated count 6.47 10*3/uL 1.8-7 .0 [facility] Lymphocytes [#/volume] in Blood by Automated count 3.78 10*3/uL 1.2-4 .0 [facility] Monocytes [#/volume] in Blood by Automated count 0.85 10*3/uL 0-0.8 H [facility] Eosinophils [#/volume] in Blood by Automated count 0.12 10*3/uL 0-0.5 [facility] Band form neutrophils/100 leukocytes in Blood by Manual count 3 % [facility] Variant lymphocytes/100 leukocytes in Blood by Manual count 3 % [facility] Myelocytes/100 leukocytes in Blood by Manual count 1 % [facility] Metamyelocytes/100 leukocytes in Blood by Manual count 1 % [facility] Band form neutrophils [#/volume] in Blood by Manual count 0.37 10*3 /uL 0-0.6 [facility] Lymphocytes [#/volume] in Blood 0.37 10*3/uL 0 H [facility] Myelocytes [#/volume] in Blood by Manual count 0.12 10*3/uL 0-0 H [facility] Metamyelocytes [#/volume] in Blood by Manual count 0.12 10*3/uL 0-0 H [facility] Anisocytosis [Presence] in Blood by Light microscopy [facility] Polychromasia [Presence] in Blood by Light microscopy [facility] ID Date Data Source [id number] 07/02/2019 11:16:06 AM EDT [facility] Name Value Range Interpretation Code Description Data Lynn rce(s) Supporting Document(s) Thyrotropin [Units/volume] in Serum or Plasma 1.180 u[IU]/mL 0.270-4. 200 [facility] ID Date Data Source [id number] 06/17/2019 02:09:39 PM EDT [facility] Name Value Range Interpretation Code Description Data Lynn rce(s) Supporting Document(s) Progress [facility] DPFORj9mKjSOJtAw59/TJAcaOTSin5SgJSzuUHb2XOewXIGaM6RiGNR4tQ1rUUS2JMlMTdBtFkLpJKEn [facility] [file] ICAgICAgICAgICAgICAgICAgICAgICAgICAgICAgIC LcXZHwPSQdDKTmVNOvRQBjALYkBXDfMRXcRSJhLKVzSYJhBTXvBSYqABRrSV8DLPYiFGXzQRNiGGLjEQ AgICAgICAgICAgICAgICAgICAgICAgICAgICAgICAgICAgICAgICAgICAgICAgICAgICAgICAgICAgIC DqCSPbYJImERWtMRMlFGMgITDhHVCsQPZnRS7ZNNFk ICAgICAgICAgICAgICAgICAgICAgICAgICAgICAgICAgICAgICAgICAgICAgICAgICAgICAgICAgICAg PEXiUOLcKDZsPMBrHETvTMSfRMKbLRYqMSLcUFXtEVFfUPNhDK5QTGJjZJTxIDJzYFSzGBJmTKKbIQKw ICAgICAgICAgICAgICAgICAgICAgICAgICAgICAgIC RjBJAaEPOuZMCpUPPoZRPrLLGlRSNmVCGzJFLjSGJzQASlTCKfGSXmFCOtIZHuGE4XRGMhHFTyQVGoWO AgICAgICAgICAgICAgICAgICAgICAgICAgICAgICAgICAgICAgICAgICAgICAgICAgICAgICAgICAgIC PjYSCmYWKgUXQdZJSiGGVuAACeGTUcZQEvFMLeCS2X ICAgICAgICAgICAgICAgICAgICAgICAgICAgICAgICAgICAgICAgICAgICAgICAgICAgICAgICAgICAg WBNtNSIeZLWfPDKwGOTqCGToUQLqKFMbDEVqXDSqLRZpBQQbITLmQF0NWNWyCFRrORIsJXEfMZXxGFOf ICAgICAgICAgICAgICAgICAgICAgICAgICAgICAgIC InBFQsZJMwHWNqPHTlIVAnFSLuPXTrSQNjCDOdXZQdMREyDGNwHJMvTNBwRDEbRKRaER3JYGRmXLXmGF AgICAgICAgICAgICAgICAgICAgICAgICAgICAgICAgICAgICAgICAgICAgICAgICAgICAgICAgICAgIC AgICAgICAgICAgICAgICAgICAgICAgICAgICAgICAg KW0RNGSjOFIrWZUwKXDyFJLrBCIhSVJoWGZrPHPzGGIiGFMoZYXkVVOrBNRwASPxYYYpQQGlOALfFSJy CMQuGSSdIWAbUIXdROHcZANaREUnSFDyBOEeDZFrSGRvJZXqOQMjAROpMK0XOISvUZMgEUCiHFWgJEHc ICAgICAgICAgICAgICAgICAgICAgICAgICAgICAgIC BlXBFzFBVmFYKcNNWkTEFxBKJwVYXsBYPbKHHjXHZtGUFiVAQqEKSxIAHvEFOyIFVbELVyIG4GLW93mG Qrk9P4QOOgXP9kvcu/Bj2HBCvnnmPulPYpOR5DQwThIA8pqj5TToHaIT9yrd5WQNrYZqBtY4Z0vWZwPE MqZJXUGbQdQ45hPXpfGn81EPowDKNhUoRbOUq8Xg2E RpZeH2cwZSMiMbW0MAPqCrO1WSXcYmD5UMAwStHjMVrnUV5It1LyeUFsMTy+Sk4MJS7zy0HeUAhwTVNu VC7mnl0GANgMJoExF4UxyyZ1NWOkFXBfWx8QZGYiZKNwjQDgSKDbJMEWSsItE1RrpJ52GQXOXq3+DQpl naDlObgYDlGeGSKoq4ZoBTi3KC5WACNmHBw0pLHgKI YdN7Rzr9RoJn57INIcCqbmRWefuXQfvWNPWJ6ysFliWPCtZYHaUI9jQL2vQKOpODArLxHvHIZEVU1HGK ElVNSwrJKtSODbWKUMRB7PJBzeAWO9OEQkeyYxuLTuJTwiIB3OKCWdixYgJdocPMBFYXj+Zr0BEW5jz3 ZwBAahEGXzGB3roi3BOIaDSlHwT9L7iOSfP9O6EEud Ly4FKJAmHSWzZpkcUJYZCJyrIA2OAW3lysZ7GE7LxKVnORItLYKgeHCkWYf4O21ubPMcEYouEZ0XCUG+ Antelmo+Iu7NVXCvYBDkZFTzAqPpMWSOHxFmO2CuW4VCr6OzP6OrFO59eCuccqIiOVcoSC8YPC7sBPTfRUUL JI9WuSJraS8evwBaDJYkNPWINbZrV44hdMBgNNTcLE F3BPXxJb5DKEYiX3MchlIyxXyzzlDdTJCdSJSVRA5XTLmrvnPyfQCjqRgzCC87fLkgIJ6BOt7MMrBgSM 3urt4GvZMnGy7HJIFzYc8CEGEeOZGwZKEvKCN7FZDyOdPaKPceRRHgNYRbLBR6NIGuKTSzZL8TYfJxPH LvBtO7UktsQDEhXAHzbp8UEHVxLSIrQFDgYZDcTARf FARlWTcoOWUjWIUxNMC3FABbJRPgXR4JEoLaPNAdEQP6RpFqEGXzBMLtri2WBYBfDUDpBgo2GMUtHRNr TOFdBNyiPMJkQTT7HOD4ITEiLIFzOC7PHhItWBJjAIboQduiGPCfODEgsz3NOWNaSRLtEBm1ZwCjXVSv MAWaEDpnAFMvRMR7NLn9MBIsVENiEL2NRgQgZXKoEW RqXAMxBEKjTNHfgm2ZAIGeBBHvJON9AeXtJWDgVZMvTJgoLYTxGQNfGNQ5BCOlQTWyWA6OPzKsQPHbOI GpNMHcLARaTXWquc4CWNSzVHFzBUW5RuQxPYQvSWPuTVjpZKUjMBUoBuj1HQGoRHZdQE3OUiPvHQOoCp LzMIZeTSWjMGLhfg4RSMHdJBGcAlT5YgEuKCCzUTBr ZSssPDOpZKLgBvD5XKAeZBIiZC8YLfDjEXHlExC3JOBvNPAuVQTdtg8ZFWNmYLOcMZB8EOIqMAQyXOZo BLnvXPNnQRW4BXrwMVDyFSVlBV0OEfNsVDKbZrEqPyKzCLMoTOZene2SPSLmYZDlRWP4QHAcGURvQWCi AMyhYBPwAOW1YcsnIBXbTWAzUZ6YAbCmAVIzPfU3Vq imKRCuMEEnpv7MIEGfCHSpWhA3AEHdJWNmNZHgEUylFKZrXUU0HRo3VRCpUKMeAI1MCgQdCTRhNfh4Ey xeVADtBOIkit2JMCAyYXHyVXWmJZKkNTHjQOAjWXijORBeRWM6ZaI8NJEfCENyGY1SHoPfLRscMGQTDa y9XJsgV4e9JQGyAg2KX7Tgs7WnBzKkKUUICIdwWF8m cgRgWRLpKj0KH9tGWnqyFTDwFTIbZyD5RKHaUGNyARabMAD1GnEnBAM8PzAhDU9dFERuA6Z4OFTcXjk5 HgZ3XAUyU4ByLYxfN9Q1QJQ9FSX5NwPpMK0ZPc7HCuS0FWW4qCMpWz5XLgtvORNQEcBgCO8UUUj= ID Date Data Source [id number] 06/16/2019 07:00:00 PM [facility] PET W CT IMAGING SKULL TO THIGH 57464XDG AL RESULTInterpreted by:Azul Olson MDINDICATION: Small cell lung cancer, restaging scan, assess response to chemotherapy.RADIOPHARMACEUTICAL: F18-FDG.DOSE: 12.1 mCi.BLOOD GLUCOSE: 7 mg/dL.TECHNIQUE: The study was performed at the [facility]. Approximately 60 minutes following IV tracer administration, [...] rce(s) Supporting Document(s) ID Date Data Source [id number] 06/12/2019 08:13:51 AM T [facility] Name Value Range Interpretation Code Description Data [facility] rce(s) Supporting Document(s) Progress Note [facility] FUQCDv5hAnSVIyXi98/MIVqiJANrr8QgISaaFIe3EAaiEYXvG6UiRAF9rH3xPQN9OCaECiGaFdKbSJG6 lbm [file] OoGR1YQy6YPzA8KGS6gFJvMr8PIHwvYYfBGiTyBZ1CRSh= ID Date Data Source [id number] 06/12/2019 08:13:46 AM EDT [facility] Name Value Range Interpretation Code Description Data Lynn rce(s) Supporting Document(s) Progress Note [facility] ZQACDi2eApHKNqUz78/LBOofEHXro5ZkENubMWe9NGfiDLKeW5OpQFP2kG5yTDA0QTrOOyTtBsGmHVR5 lbm [file] [employer]ORTER/2AGhjulIVNpkLDSTSGe3sGUUiJvPZ+zAproRL0Emu8eL8J4owQl0T5e12rIpHHCoWxg8FPYLvIufg [file] FkMjIxNWZjYWY+EZ7tPAv+Al2Xh3WtegS0ayVpCWj7SrC7UN3YSFFQO8UUEj== ID Date Data Source [id number] 06/11/2019 09:22:29 AM EDT [facility] Name Value Range Interpretation Code Description Data Lynn rce(s) Supporting Document(s) Leukocytes [#/volume] in Blood by Automated count 11.0 10*3/uL 4-10 H [facility] Erythrocytes [#/volume] in Blood by Automated count 4.22 10*6/uL 4.1- 5.3 [facility] Hemoglobin [Mass/volume] in Blood 13.7 g/dL 11.5-15.5 [facility] Hematocrit [Volume Fraction] of Blood by Automated count 38.7 % 3 6-45 [facility] Erythrocyte mean corpuscular volume [Entitic volume] by Auto mated count 91.7 fL 80-96 [facility] Erythrocyte mean corpuscular hemoglobin [Entitic mass] by Automated count 32.4 pg 27-33 [facility] Erythrocyte mean corpuscular hemoglobin concentration [Mass/volume] by Automated count 35.3 g/dL 32.0-36.0 [facility] Erythrocyte distribution width [Ratio] by Automated count 13.9 % 11.5-14.5 [facility] Platelets [#/volume] in Blood by Automated count 380 10*3/uL 150-400 [facility] Differential cell count method - Blood [facility] Neutrophils/100 leukocytes in Blood by Automated count 73 % [facility] Lymphocytes/100 leukocytes in Blood by Automated count 16 % [facility] Monocytes/100 leukocytes in Blood by Automated count 6 % [facility] Basophils/100 leukocytes in Blood by Automated count 1 % [facility] Neutrophils [#/volume] in Blood by Automated count 8.03 10*3/uL 1.8-7 .0 H [facility] Lymphocytes [#/volume] in Blood by Automated count 1.76 10*3/uL 1.2-4 .0 [facility] Monocytes [#/volume] in Blood by Automated count 0.66 10*3/uL 0-0.8 [facility] Basophils [#/volume] in Blood by Automated count 0.11 10*3/uL 0-0.2 [facility] Myelocytes/100 leukocytes in Blood by Manual count 4 % [facility] Myelocytes [#/volume] in Blood by Manual count 0.44 10*3/uL 0-0 H [facility] ID Date Data Source [id number] 06/11/2019 10:29:28 AM EDT [facility] Name Value Range Interpretation Code Description Data Lynn rce(s) Supporting Document(s) Albumin [Mass/volume] in Serum or Plasma by Bromocresol green (BCG) dye binding method 4.1 g/dL 3.5-5.2 [facility] Bilirubin.total [Mass/volume] in Serum or Plasma 0.3 mg/dL <1.2 [facility] Calcium [Mass/volume] in Serum or Plasma 9.6 mg/dL 8.6-10.0 [facility] Chloride [Moles/volume] in Serum or Plasma 97 mmol/L 98-107 L [facility] Creatinine [Mass/volume] in Serum or Plasma 0.85 mg/dL 0.50-0.90 [facility] Glucose [Mass/volume] in Serum or Plasma 176 mg/dL 70-140 H [facility] Alkaline phosphatase [Enzymatic activity/volume] in Serum or Plasma 115 U/L 35-104 H [facility] Potassium [Moles/volume] in Serum or Plasma 4.3 mmol/L 3.4-5.1 [facility] Protein [Mass/volume] in Serum or Plasma 7.1 g/dL 6.4-8.3 [facility] Sodium [Moles/volume] in Serum or Plasma 137 mmol/L 136-145 [facility] Aspartate aminotransferase [Enzymatic activity/volume] in Serum or Plasma 25 U/L <32 [facility] Urea nitrogen [Mass/volume] in Serum or Plasma 10 mg/dL 6-20 [facility] Osmolality of Serum or Plasma by calculation 288 mosm/kg 275-300 [facility] Creatinine/Urea nitrogen [Mass Ratio] in Serum or Plasma 12 [facility] Bicarbonate [Moles/volume] in Serum 24 mmol/L 22-29 [facility] Alanine aminotransferase [Enzymatic activity/volume] in Seru m or Plasma 28 U/L <33 [facility] Anion gap 3 in Serum or Plasma 16 mmol/L 8-15 H [facility] Albumin/Globulin [Mass Ratio] in Serum or Plasma 1.4 [facility] Glomerular filtration rate/1.73 sq M pre dicted among non-blacks [Volume Rate/Area] in Serum or Plasma by Creatinine-based formula (MDRD) 78 mL/min/1.73m2 >60 [facility] Glomerular filtration rate/1.73 sq M pre dicted among blacks [Volume Rate/Area] in Serum or Plasma by Creatinine-based formula (MDRD) >60 [facility] ID Date Data Source [id number] 06/11/2019 12:12:29 PM [facility] Name Value Range Interpretation Code Description Data Lynn rce(s) Supporting Document(s) Magnesium [Mass/volume] in Serum or Plasma 1.6 mg/dL 1.6-2.6 [facility] ID Date Data Source [id number] 05/27/2019 12:59:29 PM [facility] Name Value Range Interpretation Code Description Data Lynn rce(s) Supporting Document(s) Progress Note [facility] CKELOn3kQqMJZaHi03/QHVtiWKEly3XqUXguUFy6ISdvJMDmR8NwIZG7eN7sNPA8AOzIXtXlMaLdMvId [facility] [file] ICAgICAgICAgICAgICAgICAgICAgICAgICAgICAgICAgICAgICAgICAgICAgICAgICAgICAgICAgICAg ICAgICAgICAgICAgICAgICAgICAgICAgICAgICAgICAgDQogICAgICAgICAgICAgICAgICAgICAgICAg ICAgICAgICAgICAgICAgICAgICAgICAgICAgICAgIC AgICAgICAgICAgICAgICAgICAgICAgICAgICAgICAgICAgICAgICAgICAgDQogICAgICAgICAgICAgIC AgICAgICAgICAgICAgICAgICAgICAgICAgICAgICAgICAgICAgICAgICAgICAgICAgICAgICAgICAgIC AgICAgICAgICAgICAgICAgICAgICAgICAgDQogICAg ICAgICAgICAgICAgICAgICAgICAgICAgICAgICAgICAgICAgICAgICAgICAgICAgICAgICAgICAgICAg ICAgICAgICAgICAgICAgICAgICAgICAgICAgICAgICAgICAgDQogICAgICAgICAgICAgICAgICAgICAg ICAgICAgICAgICAgICAgICAgICAgICAgICAgICAgIC AgICAgICAgICAgICAgICAgICAgICAgICAgICAgICAgICAgICAgICAgICAgICAgDQogICAgICAgICAgIC AgICAgICAgICAgICAgICAgICAgICAgICAgICAgICAgICAgICAgICAgICAgICAgICAgICAgICAgICAgIC AgICAgICAgICAgICAgICAgICAgICAgICAgICAgDQog ICAgICAgICAgICAgICAgICAgICAgICAgICAgICAgICAgICAgICAgICAgICAgICAgICAgICAgICAgICAg ICAgICAgICAgICAgICAgICAgICAgICAgICAgICAgICAgICAgICAgDQogICAgICAgICAgICAgICAgICAg ICAgICAgICAgICAgICAgICAgICAgICAgICAgICAgIC AgICAgICAgICAgICAgICAgICAgICAgICAgICAgICAgICAgICAgICAgICAgICAgICAgDQogICAgICAgIC AgICAgICAgICAgICAgICAgICAgICAgICAgICAgICAgICAgICAgICAgICAgICAgICAgICAgICAgICAgIC AgICAgICAgICAgICAgICAgICAgICAgICAgICAgICAg DQogICAgICAgICAgICAgICAgICAgICAgICAgICAgICAgICAgICAgICAgICAgICAgICAgICAgICAgICAg CSYpDCIxZAHeNEZoWVNtLYJmXVDlBXJxPJThCYNiORNySRFtMMTmGGIuUPj9Y8htXCNaRPVcIG5jDNk6 Jz8+HUhIRwZmVCM7vuGutT2YCU7ek6QmLUjoFAEcn2 KwDMe3SN9DLIMtYEiyLJ1AXSlirk2CGYKjJIXcqTUNz3msArWlNPJ5XVCcOwcrYX3QIDQoE2eumlVeIB XgXGUQKSkqWFWCHMhcPOMMKYPbPPIhZeQhDeHdQXMnJQ5KEYEaV286hpRgIC6JCb0ONoSeZT3qpj2EBj SfRLPsIzeCHdq3CNebST2EjDXctNHrNWGpHKIGJqOu O7anp6ScPbVpNHQHGWxnWF2Rq5QujYNqEPj+So8XMV5jj8IbHUxcDDPySE1yvf8QKXhGHxRjK7EwmSgf ATNlj1gsWHVpRX9cnRHtMMI2EA7mH4dxPYzpUGSNjRugLN3MGWK1AUJuAtHlIgNtJYNzDWsrHKMXVNwV YqQfO5Qec1VoYqZ9AWOsBkNiWAtoNXNnXmR6BY61jQ wlBQ6KLTUiYXJyMI56EOCrBPAbQg2IDk5TUaIeDM6xge9UTaDkCMSiJsaPBct5DHvnJJ5EnFOzQ7BtcL Omx1rVMcZtT2SHONN0FWHmAb8EEGZoFoNnCAYpJKiuXX2tHYEaJWLRgUfuscP4AW1QYH3tkvEeKI2BNi QnXr4zVt4VEqPnE7UaO4DaQCSdNDASMXokKV6HJWmu WA0rZY7Dn9TTdEEslB8ani9ONAReQCHwHbeute0ZHylrS9A5lHiiEETnRcDwENIMBPdlZF7BCDEuTNE2 KTGcBWKcELEHWuTkS76pJU1HE0Vde14kWrU0GXKkAlUnWCooRY33jYfikyDihEQyvOxdAQ8BBx6+DQpl bmRvYmoNCnhyZWYNCjAgMzMNCjAwMDAwMDAwMDAgNj S0RuOwFc3FWFFrULImKAIjCaFgKHEhUIWvWEpcXFJxDILkRTFyFBLjKZBlFQ1QJcHgLFIvZiZ3AKahAJ WkNQLaro2RWNJeFJApORZ6FcDtHREtKXAzLIsoGVNcWXJ3PMX0SYIbCGWuRW9RSyAfQQVfMKL6SZzzIJ GdTRNdiv4NHGJkKWRhVEOtGcMtJTRbWCDaZGfxUERq FQW8KIM9PHMwICEeZG5NIyKiVMTaBPJ7XXGkOGBoXBKhwr0KDWKvGLStEkRbZBEdPHKpELFrVDxsSLRa VHC2FpAlRCWxSTUjCG5GVhSwHAUqZNN4XVJmMCVuSMOjrp6ZXIBiYYMpIlA4FyZgLAZzYZLnZNtyKOGr OMO8QFy4CEOlYGQyDU9OWeGuCRPxIRi1XGmvCISwDY Ormj7SVKUsFPUrUDc9QEVjJIWyHAHmRLtzFYJvJGT1VWM4LYUjQSDlXP9UNdCuZDFiPAt4FJslZGEqOL Cprg1PIPMzZGVvKOM3XVJvKYSqFIRaKQgpCBRlLWRwOiw0TYEtUFNdMN8AMtXxWQZdUfU4EqJiUWCfDV Ftdw4ZMRGlBBRdMUl9KBWkQJNjYQReIYlhYFWkNEPg FAW2WABvHPFlMK6SIcOcGYClIsVcCWehPMStMABuip6FHSDtMZPmLmV7QfJgWWAxTIEoOTuuIXTdFREh KTr9TJOrADWzTY0AQuBkVZKzLjN7HbnjLBAbDCJczs6MIYVaPCNzEbp5XKPiKFOpBCImPCwkSYUwHKC0 DbK8YJPdACHtHT2ZIhMoSQGxZjA7UgYlFNGeGUAuqm 9LPKFjFBFhHTt6InCbTKUgFRXsQNlmNCImEZF6KAGgWAJrAMXrWM4VQfQxXDqeZIHGTle7QMynU2a1YW ZmRt3LR6Abq2PrSmRrZUJXLBegBW6bbhYhWSGfKu3VH6uDHatuMCrvWiTlSWX9JtC6XuPvLKKlQiG5Kc N3RnWgSWL7Ky4fJGS4QFRoXOT3UoI2OzPwFTZ3DRR2 JLsaBpwgWNY3SPOmQjEhXV2FAt6DKkG0NIR9sRAbWt3NIpJnWSUNGpIoPN9RSXc= ID Date Data Source [id number] 05/21/2019 06:08:01 PM EDT [facility] Name Value Range Interpretation Code Description Data Lynn rce(s) Supporting Document(s) Progress Note [facility] GXVOOh4yBxOPNmEe35/WUWapRECpq1SvJXguCAv2CSyfTCZzQ0SwSMO4vD9lKFR8NYgAByOhFbHyUoV5 lbm [file] Senior Product Analyst+cfeJUx5VJwrWWNjMQwiBj/Mw0Id4KvqiKP+v4SBFI7wq9ifUp4SGvv3InNeeQlNyMZK/p9pg77uWT [file] DMD9YVGhRQGqSCAvKgR7Ybp2UQf+PC9zSNw+Ht9Js7SsndK9afBpJHtsWeAdCH3AHGFTM8VMQt== ID Date Data Source [id number] 05/20/2019 12:04:36 PM EDT [facility] Name Value Range Interpretation Code Description Data Lynn rce(s) Supporting Document(s) Consultation [facility] UXUFRc2yMiFOVuFj65/DOEenDMZgc6XtZXttWAy1MLexKOObA7XxWMP2pH0oWFA0KYzRTcLlEuPhLiP9 lbm [file] ogIFtdDQplbmRvYmoNCjIgMCBvYmoNCiAgPDwNCiAg DYPxOJXgY3EeaTWlV4EWMg2WQVy8G1pgGZrcVv3TmZQuZUYrDXijLZOnC8DglxImNMdiT7UeHZLnNAYg Dq7LDTCeMWJbZ5OyNMHqGKGhTn0XVHDiTUXpW8TuNYA0ZKFsXf0ETUWsGTEoO9PsSKB2KRVzKe3+DQog AWFvY4tDPsmfS3WrEGyrQf2DEhAyPIUiOCr4I1F2VB HwLEr2W2MHQ2TOLZOcXYguLNjrOQEdXAu6V2X9ZSMcK1DMJ9Hsubgqjo1+WZ2EK93FEURmHRw9A7V7fQ EsP4K9nMgFmNJ4AL2BRP8IiJy3iQOcrF5+AF0JA2EIXrGqWSi2P2J6sJDxS7Q6bQqQyKJ7KS4QDL3NtG VjOHFgncElXw4jM6THOCvYJzLHDKB4GD9QuCKwIB2H rTVAK8GojZCsUc8wGRbftDZfbO7mKj9aGYlsJLGlW1SHG2KOMZ8QEPq3F3K9aHTyL4P6bRmGhWE6OJ5S FW5WuGufbMTrLc5sHCayBCAhHC4+DQogID4+MTwwhmMaJctBOpWgPIGdx1CcTCn9TD0GYZ7pqPxyDIE2 Yl2PqTI7pLMdM5dOEX8GoFLqF73ceHApLXIlTi1LFp I6rfGezE2FVU11nXJwk1V9UGFfR3jjQIddo38tYGosHMiFFT9xOGBABTwfBRpxWKS6ObSynccjIFChCi 2FYlGrZMx6wP4buNN2QJG9NkavcFEcVYegIyMtFtInAuA3qCaynnh3PJleFE9dFHktfvcrXJIdPud+DQ ydAOUvKPLtSwcXGNTyrZ6oaeO5wwBwLOraaCPhEd0i t9a5ZdriNv7iVn4yBUu6FkNrUfBrYQBeBp5igQ23HRdeayXqJm9CKvWfEPN2R7IpZzpLTYK+DQogIDwv cUw5xYHbTADxJd4VXVLrMTQoCPQlICRlSXElBFOiOOFdQPLcADVkGBMpNPQnSYSyKFNdJGQjVBWbFUGe ICAgICAgICAgICAgICAgICAgICAgICAgICAgICAgIC XrGVMuRVQvKANxXOEsYCRhQQQkAG7LLKMrGYKwQSZiYIZwPNBcCTFzQIVtPFOaHGFvJYRnFUKxZDKcZS AgICAgICAgICAgICAgICAgICAgICAgICAgICAgICAgICAgICAgICAgICAgICAgICAgICAgICAgICAgIC VoBM8DKYUlKOPrFOUaIAVrAVBtOCGfNQEcYAAbXKBl ICAgICAgICAgICAgICAgICAgICAgICAgICAgICAgICAgICAgICAgICAgICAgICAgICAgICAgICAgICAg JQTlTSLyVZLbJITeZG5JVNIsLRHnAAKaOBDaPBXyCHJdNBTbSOLjGBPwGRHeJGZgTPLyRPCqJSTuPVJe ICAgICAgICAgICAgICAgICAgICAgICAgICAgICAgIC DuOBUcYKPfPGXmVDCyJZGcJFJkTTFcMZ7NLWVxKGSiOSVrORVoGPVgDDDzCJYbTCHcCCCvXPJmNVQrEY AgICAgICAgICAgICAgICAgICAgICAgICAgICAgICAgICAgICAgICAgICAgICAgICAgICAgICAgICAgIC UkVINiEZ0FZGKrXTAyCYEnWIHkGQYjSKVeECPsHGEs ICAgICAgICAgICAgICAgICAgICAgICAgICAgICAgICAgICAgICAgICAgICAgICAgICAgICAgICAgICAg JXZnDOTuKHXpDKRpBTAlAR9IOSKxVDCySTZpXFFbCYLmNCWoADUlKBNqOKPlNWEaICDeWGQkQUEmSHIm ICAgICAgICAgICAgICAgICAgICAgICAgICAgICAgIC JtHZOwSGYfWYQtBKWxRUMcAMEgZZUeZYIbWP5UUTSvMNVcMGOyZEKcEHXbVJMdHKTfIPBaMCPyWVTjKJ AgICAgICAgICAgICAgICAgICAgICAgICAgICAgICAgICAgICAgICAgICAgICAgICAgICAgICAgICAgIC TwERLpEDRdKU6VGIYdRBThZIRiEATmXSScZOCiWVOo ICAgICAgICAgICAgICAgICAgICAgICAgICAgICAgICAgICAgICAgICAgICAgICAgICAgICAgICAgICAg HUTgZIXxWXMbMOIaGTWsDCKlZQ1QKPDuEZFuWIOxELViYJOsJVIvTWHkHMRqMLRgYXKsNNLhRHNyPJDa ICAgICAgICAgICAgICAgICAgICAgICAgICAgICAgIC JwAPPsPYEgFWAeOMOyOBJlJTNtKMKrQGZzAIEaNP4UNO71nMHpc9W7IARmSX6liaq/Pw8PILkdysGlvY VfTJ4NYaJaLJ1clq5QXsKxEH9ycy8DZMaDSfZyX1R9xQMuJVYmAKRQNdOwD46eIVtbOs76RBagOFFzTp QgYZo7Wi6CIaAsK7oiRUJkIqB7HQFcRiL6CELjUwUa HNhtCH5Ls1EmzIUtZZy+Kv4OTO3aa3CsMOecGzInGO0gxc9KSDsKFeYyG4IlphX0IDViYPWoMh7GGCGd LHOdkWRtPoJgXCJQUqEyC9QrmG26BFPYJq3+WPptlaRsDtwZEoSdOXYao6PtVVk4LD8SLXLpBTy6oZPd N55pc4HaaWCkUattHtZdnetsDJBuWVONQJMhPRPHtN GwwAZqFAJhEq2jTF7lWAMfOWGrOpTiZQOCMA1TVRGfUEIzuUGtAGAcPMHVLV6TIQlbREB6HDGrzqTnzG CzMZreBI9JXJMzixNfGbWgJDTOABs+Df7NNP3mr8XvEFumALPkKR1rwj1JMNnUOzNhK2G0vQNyO2R9LI ilAa2SWOMbGPIlYtJtACXJIErsOO3LOU3vvxJ0LJ9Q eQFtHWQfDHVkqJRlFNb4B41gdQGbQHwkTL0YHUS+Antelmo+Tu2GFDQzHZDwKRBvKzCwIDFHQfUnY2JvV2AM a1IjL4QyLC85mIeorwHtBRvvAU7PHQ7vVILxTCBJAS6FgTSgtF1kqdHeGjVcNCGGQkFuJ48qdSJuCSRz HTCpEPIhAc5WDGUvH9FevjFkaCympdGmTCNiNCKWFE 2CBEfsouGkcYEgnQgvLN96rVhkOR9QSa4JAsNiIQ5cdn3JfREmSs0JOIHiMD1ZDNOxWKWkNAOyZJC2MG VfMwFzDPuuCGSnDAQlJSF4CSRtHNZsTB5RKuRhULPiYBI3RDbbFNOrKZAfxo5AYXDcHKVxLyU1ENQhLB TpATAvLSdxTMZnPCGoMDD1DYMtWVYiQW2DAfLbTQVg UGI4YNJaYGOzIJWubr2GRLGoXYGnUchqEMEeGVIyDAZcDStvKHFtWQN2OLg2QQUoQUDxIZ2HJtMlQSVj CRWbYRKhZKLtXCYyiw3SLKMpXMPiXxM2WFCmPYGwMOCxIHtjAPZhCQA9RqD4BEGvXMMhEP5LTkGdPKUh ZQW4EwVmXJPcPQQsbq7EZNLlGTJzFwM6VRPkMCByRE QxXSkjRVZkJIK9Lid0MNKcHKCyWK7SOfKvQQJjMQw2BsHjTMSbAYLkqi7YUQFcFJLrRMaoZYKbOUCfRN PmIWvjMRLeQYD2YXY6PUCvXYFmTJ1KQcMgDIBhITipQvXqFDFzDQYlyf3TXFCoXYQhWYC7TOVgTXSeDF UhQCpoQVVaTENvOluoGSApVZQvSH4ZAdHlOXLjFIU1 UzJvGWFpHYOawe6GZGXwZDGyPOHeXSOxJRGlJTWfWCycUPOdCFAmGPF8ELDxGXSuKD2KHgUwDRTmJKN6 SpPcEPZnYOVojm9BGKCnUOUfNsC7ANRpDGJwFDXbIBm5ddMemLRxRIv0MK9XL7AojwNpSkSPUy0Rk474 ZIJ8LZDtCc7MC0idKq9vUBYkLELCUy7YHQt0UvGgPW NuVcAvYODfFXYaBdr6IyAsDuukQRL6QhS1AoX+CFi2SVEoWKNtEZLwQRW7ZYP9ZMGhT6KjYTErGujhMH wxUw9hHNZBVl2+ZSfucBIopAubSARNXuWbVQOxMEcoMMDDGg5P ID Date Data Source [id number] 05/20/2019 12:04:06 PM EDT [facility] Name Value Range Interpretation Code Description Data Lynn rce(s) Supporting Document(s) Glucose [Mass/volume] in Capillary blood by Glucometer 183 mg/dL 70- 140 H [facility] ID Date Data Source [id number] 05/20/2019 11:40:05 AM EDT [facility] Name Value Range Interpretation Code Description Data Lynn rce(s) Supporting Document(s) Consultation [facility] HUVFWw7yCnWVVnGo87/UMWcfRZImu0PeHEevRCn1FMquTXClX7CiQDW8sT5eNJW9EVnXQbYmMkWqIhC6 lbm [file] AoeJfjKEESJgq9GsWQBuBxAC2VCIk= ID Date Data Source [id number] 05/20/2019 10:43:59 AM EDT [facility] Name Value Range Interpretation Code Description Data Lynn rce(s) Supporting Document(s) Discharge Summary [facility] FRORRs4aKdGRVfZx40/CFEruUOJms9ZwAWfiYIz1RSwyFQArS0UeZJW5mU1sRJC4FDzTYgZwWlDdErO3 lbm [file] TITLE CAMERA OPERATOR+Vg0XSTGfHJ3UkVAWL2XnnBOvNGakS0KEIZ6HAWN8TF8PtDVeCV6PgOFKB1FdeWPtYj8nATKzh6Lk Yo5kR6JYFNKBNREkXZfoONmnDRLyFLw4D9M6MUUkO5VFZ486dDQdrAd9Co3xQ0DOKBdEEvZwLGzsAUzq PCQyIYy1A1P3NISdF4HIT2CjObAolqGiE8T+PiAvUE RIHG0HEZHLHKv0O3Y7fRSqT7M0bZzYeBE3VW4AGM8KjYLxcUOtq67+XuEIYxNoUHRhJ3GSKRXKJoMgWD hoPPmzCEFeNLo0I6F5YSMzP1HSP8sxY8p0MG9+DhNEAiMnRPUhSo2DEkDoEu5TElZvYN1ozk5WSmruEV CoIenYIdv9Y1qykro2lXInLpD1Y4W4YbE0pUXaFB2Q J7P5hNGaXQW2MBXonQD+Pt3Ov6ZxUPYoZXz7E0pgWIWeVTFpDaFdsG77D++3wycpcJF9T9m9IFQYyPLq uZiRoxSqM9oCMNJ8m0E0TUf/Dc5WBIK7vSt9iSPpQXUsUZy6aL5xpLv1TvSkXA67YAIjDExosT2gWlh2 N7Trm0YcLe9wAt3fgYIqIt4PIeFwVJC7qoXeZmXPQp R3tCoyzslsJHL4Z7j7zGD8Sa54f0zhihRvw3WzJmD1MNmcEDBvZdCcirErMYF8ezBtpH3purEgUf5IAF NvWGjfapPaPuFLAh0XZbFpTN74PdufbU0laCJ+DQogICAgICAgICAgICAgICAgICAgICAgICAgICAgIC AgICAgICAgICAgICAgICAgICAgICAgICAgICAgICAg ICAgICAgICAgICAgICAgICAgICAgICAgICAgICAgICAgICAgICAgDQogICAgICAgICAgICAgICAgICAg ICAgICAgICAgICAgICAgICAgICAgICAgICAgICAgICAgICAgICAgICAgICAgICAgICAgICAgICAgICAg ICAgICAgICAgICAgICAgICAgICAgDQogICAgICAgIC AgICAgICAgICAgICAgICAgICAgICAgICAgICAgICAgICAgICAgICAgICAgICAgICAgICAgICAgICAgIC AgICAgICAgICAgICAgICAgICAgICAgICAgICAgICAgDQogICAgICAgICAgICAgICAgICAgICAgICAgIC AgICAgICAgICAgICAgICAgICAgICAgICAgICAgICAg ICAgICAgICAgICAgICAgICAgICAgICAgICAgICAgICAgICAgICAgICAgDQogICAgICAgICAgICAgICAg ICAgICAgICAgICAgICAgICAgICAgICAgICAgICAgICAgICAgICAgICAgICAgICAgICAgICAgICAgICAg ICAgICAgICAgICAgICAgICAgICAgICAgDQogICAgIC AgICAgICAgICAgICAgICAgICAgICAgICAgICAgICAgICAgICAgICAgICAgICAgICAgICAgICAgICAgIC AgICAgICAgICAgICAgICAgICAgICAgICAgICAgICAgICAgDQogICAgICAgICAgICAgICAgICAgICAgIC AgICAgICAgICAgICAgICAgICAgICAgICAgICAgICAg ICAgICAgICAgICAgICAgICAgICAgICAgICAgICAgICAgICAgICAgICAgICAgDQogICAgICAgICAgICAg ICAgICAgICAgICAgICAgICAgICAgICAgICAgICAgICAgICAgICAgICAgICAgICAgICAgICAgICAgICAg ICAgICAgICAgICAgICAgICAgICAgICAgICAgDQogIC AgICAgICAgICAgICAgICAgICAgICAgICAgICAgICAgICAgICAgICAgICAgICAgICAgICAgICAgICAgIC AgICAgICAgICAgICAgICAgICAgICAgICAgICAgICAgICAgICAgDQogICAgICAgICAgICAgICAgICAgIC AgICAgICAgICAgICAgICAgICAgICAgICAgICAgICAg AWIrLNExASQvORVmDTYoLXFiEFLnSJUcOPKsOZLlQDWkUVYpODBnSPXvBJDnJVCjQOo3Y5gfTJPgJGAk XC0ySLz7Ow4+CTwJYpUzPLJ8azXwxB7UUI2mj7ZqWNniEXHis5EdJUa3IT8XWHLqXLkxZT8TOPuvth2R UOOcNCVzvYYSt0geCnWvYMC7UTTbPfrtCO9VATOcP2 izakXqCROcNRNUZMhgLTEDVDunCVJSXRFhRDJeThWlKzIsYTXgUD8UVEYfO784gxZpHJ0PGv8GPrHnET 1cde5VQjvwZCQfMcnEGiy9DOnuWC9TlHEmlTQhSOPvEKCWOqVaQ0niw9FxClrlSCRBZPcjMU3Ex5MhqW AxDQo+Er1VET8ht9LkHHmkRBLlSR4xmd5HOMyAAnXp J6FdzGxeUKTcj2GcEOWgRFLPmM1dTIJ6NNC0WLMikJidiYQLw7cjGW9qCBNBVATgfEXkSxS6AdPiZpSt HIA6CsSzDX4jDFkgMH9MXXP7TKphCHJlEXWxV7xKLzQrJDZtCzIbsFpwDO6ZHnMxM1WumfBmbHKcKQIf IFINCj4+ZHikbuSmOozPZcRwDIAap0QgQPk0RP6UQL QoEIfuZA1OTKCkeV1cQEhkFI5LSbLlIrUcLTXOKnLcZ97viPVsXSd5W7IlZjVuPOHhWignXSEfBIuxGw FtZXMgWyBdDQogID4+ID4+BDssED7BOFmjqePsGCDrLs7NXVMhELPuYA5vKDOmLQBxK7G6hHuvGOYQXw McM8jsdxleUK1uJYEiY802fRkhvpVaHQF0JAToNd8W GNNjFJL0JADalYGpCecfVWJIYStiAJ8HqXUzITI3mX9xSMrdCXNgLMFrM5bLSnNbeNadSU09dCtxtuYr bCBdDQo+Qx2SQK5ra7ExPXo8jpHoCJauSTRuNHqnWILdCHJtVNMmJMB0XIH3LJJHSyShQSYcAGYyIYjr JHGwQAClpr5BJJFnKWXgYAe8JHPaIFLkLJKmJMxoOB AeQDI4MuA4MPHaKRAgTQ4FVrMmUGNyQMZvOGprZXNjIHDhxe4GEMJvYUPcQJO2TZFlBAWvEYKqEFrfNF ViEVS0OhK4VNUtAMIwXB6JTtPvALNjWOxiOQZuGJGwZMKtmz0NJDHqEUZlKKP2LMTpNBJpINEiUAiaRJ WmUOA6RlP0DMSyYMHyHB0SHcDyZVBfQKP0YeXnUIDg HROrwk8YHVGoSZFnOkDeHIDgLIExBGSjCCfqQATbEGX9YGI1XMFhJFTkTJ4MOxByZIUuWJoaFFOqTEQl KMCxwe7OEJDgTWQwRQL6YwJlDPSlYGAtDCqeDQHgWPUrEPKiFMRhSWOyWZ6ZZoUyJAJyItM7EWzkZIUf CRMiop0LVPQrRNCvTRpvLnOcNQZvKWHxXImqLQHwHB UtCTxcFSHcWAGgQX9XFuRsINEmJbNhUICiQHVtXLOekp6JDFHwELOzTlO1INCqYZSnCCLuCTlwBXUlFB MdVePmXNXcEJBlIV3LPeFfHMBfIaI4KhwzDDQxHHFazg6BVLBcZVJoDdVtOEWjHLMpSVMoBZyjRFMwCG B9QWgpNSFdOAYqRN3KEnUmIKCwYhM4IGCzGNAsIYDk co4SZPXuESLuZIq2YQWqFQEjZSCeTQgaYHZcWKN8SGW3IUYjLBFjEC9WIjQySNMhZiV9TZPzGBGiEZDf yu1SIYCaRTToCkp6OSInAFWzFQVqZQwlZKShZNG5PCCvHGQyVJMpTF9SPeItHFijRCJWDqo1EFptP4n2 JNRhNZ2EI9Ogt6VlJaDeZOLZDLgqDH1vahJjSDDrDv 9AK5jRUirpRpYuR6NkKHd3DZV9TEYuFHOhKfZeTwU6AhOaOkY4QT7iJIIcFcJhPMEjIUZcMnZiCUA3Sd L3SBQgUDF9XVNySHzdWdBjZK3XPy2ZMqN5WFG2mUGxAl2JVjrtIZuDTlNtLI6WVKq= ID Date Data Source [id number] 05/20/2019 08:31:52 AM [facility] Name Value Range Interpretation Code Description Data Lynn rce(s) Supporting Document(s) Glucose [Mass/volume] in Capillary blood by Glucometer 187 mg/dL 70- 140 H [facility] ID Date Data Source [id number] 05/20/2019 02:58:33 AM [facility] Name Value Range Interpretation Code Description Data Lynn rce(s) Supporting Document(s) Bicarbonate [Moles/volume] in Serum 20 mmol/L 22-29 L [facility] Chloride [Moles/volume] in Serum or Plasma 98 mmol/L 98-107 [facility] Creatinine [Mass/volume] in Serum or Plasma 0.71 mg/dL 0.50-0.90 [facility] Glucose [Mass/volume] in Serum or Plasma 206 mg/dL 70-140 H [facility] Potassium [Moles/volume] in Serum or Plasma 4.4 mmol/L 3.4-5.1 [facility] Sodium [Moles/volume] in Serum or Plasma 131 mmol/L 136-145 L [facility] Urea nitrogen [Mass/volume] in Serum or Plasma 12 mg/dL 6-20 [facility] Anion gap 3 in Serum or Plasma 13 mmol/L 8-15 [facility] Osmolality of Serum or Plasma by calculation 278 mosm/kg 275-300 [facility] Creatinine/Urea nitrogen [Mass Ratio] in Serum or Plasma 17 [facility] Calcium [Mass/volume] in Serum or Plasma 9.0 mg/dL 8.6-10.0 [facility] Glomerular filtration rate/1.73 sq M pre dicted among non-blacks [Volume Rate/Area] in Serum or Plasma by Creatinine-based formula (MDRD) >6 0 [facility] Glomerular filtration rate/1.73 sq M pre dicted among blacks [Volume Rate/Area] in Serum or Plasma by Creatinine-based formula (MDRD) >60 [facility] ID Date Data Source [id number] 05/20/2019 02:58:33 AM [facility] Name Value Range Interpretation Code Description Data Lynn rce(s) Supporting Document(s) Magnesium [Mass/volume] in Serum or Plasma 2.0 mg/dL 1.6-2.6 [facility] ID Date Data Source [id number] 05/20/2019 02:58:33 AM [facility] Value Range Interpretation Code Description Data Lynn rce(s) Supporting Document(s) Phosphate [Mass/volume] in Serum or Plasma 3.4 mg/dL 2.5-4.5 [facility] ID Date Data Source [id number] 05/20/2019 03:12:30 AM [facility] Value Range Interpretation Code Description Data Lynn rce(s) Supporting Document(s) Leukocytes [#/volume] in Blood by Automated count 9.8 10*3/uL 4-10 [facility] Erythrocytes [#/volume] in Blood by Automated count 4.58 10*6/uL 4.1- 5.3 [facility] Hemoglobin [Mass/volume] in Blood 14.5 g/dL 11.5-15.5 [facility] Hematocrit [Volume Fraction] of Blood by Automated count 42.7 % 3 6-45 [facility] Erythrocyte mean corpuscular volume [Entitic volume] by Auto mated count 93.1 fL 80-96 [facility] Erythrocyte mean corpuscular hemoglobin [Entitic mass] by Automated count 31.7 pg 27-33 [facility] Erythrocyte mean corpuscular hemoglobin concentration [Mass/volume] by Automated count 34.1 g/dL 32.0-36.0 [facility] Erythrocyte distribution width [Ratio] by Automated count 13.1 % 11.5-14.5 [facility] Platelets [#/volume] in Blood by Automated count 318 10*3/uL 150-400 [facility] Confirmed Differential cell count method - Blood [facility] Neutrophils/100 leukocytes in Blood by Automated count 87 % [facility] Lymphocytes/100 leukocytes in Blood by Automated count 10 % [facility] Monocytes/100 leukocytes in Blood by Automated count 3 % [facility] Eosinophils/100 leukocytes in Blood by Automated count 0 % [facility] Basophils/100 leukocytes in Blood by Automated count 0 % [facility] Neutrophils [#/volume] in Blood by Automated count 8.59 10*3/uL 1.8-7 .0 H [facility] Lymphocytes [#/volume] in Blood by Automated count 0.94 10*3/uL 1.2-4 .0 L [facility] Monocytes [#/volume] in Blood by Automated count 0.29 10*3/uL 0-0.8 [facility] Eosinophils [#/volume] in Blood by Automated count 0.00 10*3/uL 0-0.5 [facility] Basophils [#/volume] in Blood by Automated count 0.03 10*3/uL 0-0.2 [facility] Nucleated erythrocytes/100 leukocytes [Ratio] in Blood by Automated count 0 /100{WBCs} 0-0 [facility] ID Date Data Source [id number] 05/19/2019 09:42:12 PM [facility] Name Value Range Interpretation Code Description Data Lynn rce(s) Supporting Document(s) Glucose [Mass/volume] in Capillary blood by Glucometer 276 mg/dL 70- 140 H [facility] ID Date Data Source [id number] 05/19/2019 05:54:23 PM [facility] Name Value Range Interpretation Code Description Data Lynn rce(s) Supporting Document(s) [facility] JMYRQx3sCuULLlMb96/QQVhdJCTyk1WhQDwmUCw1KFymGNJxV8IcVPH7xQ0rEDF4WUjSUxReIlYxIlZf lbm FdRnlCQoAgUDHfXsaMLiKtKRakCthueRLkHK5WxXO2SAFkH60rTUGyFNXcI8NxXWEeIAJ+Iu9YSUMkeI FrYF2FGezM0Qpia2d41adH6p6IKCVlUztEwN1U6QElejUnCpn57V6X2/1v9GrkCchRddQo/PvT0/KMma ur0vdm9yUKR5XdAxyHZDITJITJj+zEcyzLYtm/mz+9 NCNBkn39D9wsVrZrM/2k5dWZZFy4wJWM+uvawxCEHlo6nlOhFeF5HHlrls/f2EhpBRyiyrwL6xbhm73C m8nFmvRo26BitUxvJrcu3GdGuL9uv85qv29Ci1Tnv6iZZovzL3e927eTANDZlBg9kNoAmYMmMyraN7VL T10YwM1f3nGVuoBUE2A47KUJbd8YqG5nMduQ0OVz/h W9lIbR36gCOd3xAtcrJEpSw8OpGK8EncH+mbb5HVamRUYG6avv87laOrzxUsKneuecES/JFOegnzgzAz xBqnK5HnKWAYnIUSlbVkVZBd3/cSMGH9VdE+Nd+D8mpOIkBtBNdJJbK6HeZ7DMdz/XwvTenZkTpkRdCi SHELL[employer] SORTER+IhDJLAliFdP4b1SGP1zmpe6gfaGg7KJBc0Hd7yw [file] XLBY0DzN47UGrxLw+b2n1CnuPWJ+vp information technology/GQwOvZ85W+X kG55AzItKvRvmpxbEozKEfV8KaV31AUKHVQbZgkG0oSzks2WWIWYhGqlpvCmq5I+xiQpgPbBKOSTQXAO xrtj+Yj2CbAVO4C+GY88nmvBwQyavy5O/qzpZnmIs6v7gnI580o6TppxnMTlfigspxNfQUuyEu7dhNCj 0EfpZ/x+Wl1Lv9aitgeMQt5R3ynxQAD1qJF4r34BAu EezE/6bAdbqLltRraVR0N2vwThu5GmMsyI+URDr70EvzDbAFbMJ+8A52kVzd7I5p5bM0jE3aUlEaESBb t8ShtqycFoZfqnPt3C8NgNH5KFLDBosBfQTcHMC5gWmr7WqrrHhDAiHV3yAnSAObuaZ+bIlY91IG2BpQ bnF9gSfaYM9nOe7RQ5VixcL11B5kuhRK/C66VDzY1o 0woLy3OEdKQplQNY1f1nBGoU+Sip8CH4iCB8fiBinl36zX1+VhajhiZii520YGKMsBZpYssN6DEsuoom qxNjiZhP4HdvCmCqE4Av2632ca9f61tkunzjkFus5ri6RJPZOhVAP75RafFTMf4+ukM8R/nwnhhDahv1 61urMIwnrrXynPSy2ai++WM07Ltc4MPqZzm5FLZQ [file] Wi5kLBJXTo3+WXamkHOszRdkWTBFGwX7OgeaNHszFFMHVo3M ID Date Data Source [id number] 05/19/2019 05:16:43 PM T [facility] Name Value Range Interpretation Code Description Data Lynn rce(s) Supporting Document(s) Glucose [Mass/volume] in Capillary blood by Glucometer 157 mg/dL 70- 140 H [facility] ID Date Data Source [id number] [facility]/19[facility]2019 [facility]37[facility] WHOLE BODY [id number] AL RESULTInterpreted by:rKista Anderson, [facility] STIGLERconstance Farooq MDINDICATION Staging of small cell lung [...] rce(s) Supporting Document(s) ID Date Data Source [id number] 05/19/2019 12:01:54 PM [facility] Value Range Interpretation Code Description Data Lynn rce(s) Supporting Document(s) Glucose [Mass/volume] in Capillary blood by Glucometer 189 mg/dL 70- 140 H [facility] ID Date Data Source [id number] 05/19/2019 08:14:43 AM T [facility] Value Range Interpretation Code Description Data Lynn rce(s) Supporting Document(s) Glucose [Mass/volume] in Capillary blood by Glucometer 171 mg/dL 70- 140 H [facility] ID Date Data Source [id number] 05/19/2019 02:42:50 PM [facility] Value Range Interpretation Code Description Data Lynn rce(s) Supporting Document(s) Hemoglobin A1c/Hemoglobin.total in Blood by HPLC 7.7 % 4.0-6.0 H [facility] (NOTE)<5.7% Average risk of diabetes (ADA)5.7-6.4% Increased risk of diabetes(ADA)>/= 6.5% Diagnostic for diabetes(ADA) Glucose mean value [Mass/volume] in Blood Estimated fr om glycated hemoglobin 174 mg/dL <126 [facility] ID Date Data Source [id number] 05/19/2019 01:52:22 AM EDT [facility] Name Value Range Interpretation Code Description Data Lynn rce(s) Supporting Document(s) Leukocytes [#/volume] in Blood by Automated count 7.5 10*3/uL 4-10 [facility] Erythrocytes [#/volume] in Blood by Automated count 4.23 10*6/uL 4.1- 5.3 [facility] Hemoglobin [Mass/volume] in Blood 13.5 g/dL 11.5-15.5 [facility] Hematocrit [Volume Fraction] of Blood by Automated count 39.7 % 3 6-45 [facility] Erythrocyte mean corpuscular volume [Entitic volume] by Auto mated count 94.1 fL 80-96 [facility] Erythrocyte mean corpuscular hemoglobin [Entitic mass] by Automated count 31.9 pg 27-33 [facility] Erythrocyte mean corpuscular hemoglobin concentration [Mass/volume] by Automated count 33.9 g/dL 32.0-36.0 [facility] width [Ratio] by Automated count 13.3 % 11.5-14.5 [facility] Platelets [#/volume] in Blood by Automated count 244 10*3/uL 150-400 [facility] Differential cell count method - Blood [facility] Neutrophils/100 leukocytes in Blood by Automated count 84 % [facility] Lymphocytes/100 leukocytes in Blood by Automated count 13 % [facility] Monocytes/100 leukocytes in Blood by Automated count 3 % [facility] Eosinophils/100 leukocytes in Blood by Automated count 0 % [facility] Basophils/100 leukocytes in Blood by Automated count 0 % [facility] Neutrophils [#/volume] in Blood by Automated count 6.37 10*3/uL 1.8-7 .0 [facility] Lymphocytes [#/volume] in Blood by Automated count 0.96 10*3/uL 1.2-4 .0 L [facility] Monocytes [#/volume] in Blood by Automated count 0.19 10*3/uL 0-0.8 [facility] Eosinophils [#/volume] in Blood by Automated count 0.00 10*3/uL 0-0.5 [facility] Basophils [#/volume] in Blood by Automated count 0.02 10*3/uL 0-0.2 [facility] Nucleated erythrocytes/100 leukocytes [Ratio] in Blood by Automated count 0 /100{WBCs} 0-0 [facility] ID Date Data Source [id number] [facility]/19[facility]2019 08[facility]52[facility] Interpretation Code Description Data Lynn rce(s) Supporting Document(s) Bicarbonate [Moles/volume] in Serum 20 mmol/L 22-29 L [facility] Chloride [Moles/volume] in Serum or Plasma 97 mmol/L 98-107 L [facility] Creatinine [Mass/volume] in Serum or Plasma 0.59 mg/dL 0.50-0.90 [facility] Glucose [Mass/volume] in Serum or Plasma 182 mg/dL 70-140 H [facility] Potassium [Moles/volume] in Serum or Plasma 4.5 mmol/L 3.4-5.1 [facility] Sodium [Moles/volume] in Serum or Plasma 134 mmol/L 136-145 L [facility] Urea nitrogen [Mass/volume] in Serum or Plasma 10 mg/dL 6-20 [facility] Anion gap 3 in Serum or Plasma 17 mmol/L 8-15 H [facility] Osmolality of Serum or Plasma by calculation 281 mosm/kg 275-300 [facility] Creatinine/Urea nitrogen [Mass Ratio] in Serum or Plasma 16 [facility] Calcium [Mass/volume] in Serum or Plasma 8.4 mg/dL 8.6-10.0 L [facility] Glomerular filtration rate/1.73 sq M pre dicted among non-blacks [Volume Rate/Area] in Serum or Plasma by Creatinine-based formula (MDRD) >6 0 [facility] Glomerular filtration rate/1.73 sq M pre dicted among blacks [Volume Rate/Area] in Serum or Plasma by Creatinine-based formula (MDRD) >60 [facility] ID Date Data Source [id number] 05/19/2019 08:52:40 AM [facility] Value Range Interpretation Code Description Data Lynn rce(s) Supporting Document(s) Phosphate [Mass/volume] in Serum or Plasma 4.0 mg/dL 2.5-4.5 [facility] ID Date Data Source [id number] 05/19/2019 08:52:40 AM [facility] Name Value Range Interpretation Code Description Data Lynn rce(s) Supporting Document(s) Magnesium [Mass/volume] in Serum or Plasma 2.2 mg/dL 1.6-2.6 [facility] ID Date Data Source [id number] 05/18/2019 10:07:43 PM [facility] Name Value Range Interpretation Code Description Data Lynn rce(s) Supporting Document(s) Glucose [Mass/volume] in Capillary blood by Glucometer 213 mg/dL 70- 140 H [facility] ID Date Data Source [id number] 05/18/2019 05:20:43 PM [facility] Name Value Range Interpretation Code Description Data Lynn rce(s) Supporting Document(s) Glucose [Mass/volume] in Capillary blood by Glucometer 148 mg/dL 70- 140 H [facility] ID Date Data Source [id number] 05/18/2019 12:24:35 PM [facility] Name Value Range Interpretation Code Description Data Lynn rce(s) Supporting Document(s) Glucose [Mass/volume] in Capillary blood by Glucometer 127 mg/dL 70- 140 [facility] ID Date Data Source [id number] 05/18/2019 09:45:30 AM [facility] MR BRAIN WITH AND WITHOUT CONTRAST [id number] FINAL RESULTInterpreted by:Marietta Mendez MDHISTORY: Staging small [...] rce(s) Supporting Document(s) ID Date Data Source [id number] 05/18/2019 08:33:17 AM [facility] Name Value Range Interpretation Code Description Data Lynn rce(s) Supporting Document(s) Glucose [Mass/volume] in Capillary blood by Glucometer 142 mg/dL 70- 140 H [facility] ID Date Data Source [id number] 05/18/2019 03:07:42 AM [facility] Name Value Range Interpretation Code Description Data Lynn rce(s) Supporting Document(s) Leukocytes [#/volume] in Blood by Automated count 10.3 10*3/uL 4-10 H [facility] Erythrocytes [#/volume] in Blood by Automated count 3.88 10*6/uL 4.1- 5.3 L [facility] Hemoglobin [Mass/volume] in Blood 12.5 g/dL 11.5-15.5 [facility] Hematocrit [Volume Fraction] of Blood by Automated count 36.4 % 3 6-45 [facility] Erythrocyte mean corpuscular volume [Entitic volume] by Auto mated count 93.9 fL 80-96 [facility] Erythrocyte mean corpuscular hemoglobin [Entitic mass] by Automated count 32.3 pg 27-33 [facility] Erythrocyte mean corpuscular hemoglobin concentration [Mass/volume] by Automated count 34.4 g/dL 32.0-36.0 [facility] distribution width [Ratio] by Automated count 13.7 % 11.5-14.5 [facility] Platelets [#/volume] in Blood by Automated count 232 10*3/uL 150-400 [facility] Differential cell count method - Blood [facility] Neutrophils/100 leukocytes in Blood by Automated count 63 % [facility] Lymphocytes/100 leukocytes in Blood by Automated count 27 % [facility] Monocytes/100 leukocytes in Blood by Automated count 8 % [facility] Eosinophils/100 leukocytes in Blood by Automated count 1 % [facility] Basophils/100 leukocytes in Blood by Automated count 1 % [facility] Neutrophils [#/volume] in Blood by Automated count 6.48 10*3/uL 1.8-7 .0 [facility] Lymphocytes [#/volume] in Blood by Automated count 2.82 10*3/uL 1.2-4 .0 [facility] Monocytes [#/volume] in Blood by Automated count 0.84 10*3/uL 0-0.8 H [facility] Eosinophils [#/volume] in Blood by Automated count 0.07 10*3/uL 0-0.5 [facility] Basophils [#/volume] in Blood by Automated count 0.09 10*3/uL 0-0.2 [facility] Nucleated erythrocytes/100 leukocytes [Ratio] in Blood by Automated count 0 /100{WBCs} 0-0 [facility] ID Date Data Source [id number] 05/18/2019 03:32:32 AM EDT [facility] Name Value Range Interpretation Code Description Data Lynn rce(s) Supporting Document(s) Albumin [Mass/volume] in Serum or Plasma by Bromocresol green (BCG) dye binding method 3.2 g/dL 3.5-5.2 L [facility] Bilirubin.total [Mass/volume] in Serum or Plasma 0.3 mg/dL <1.2 [facility] Calcium [Mass/volume] in Serum or Plasma 8.0 mg/dL 8.6-10.0 L [facility] Chloride [Moles/volume] in Serum or Plasma 100 mmol/L 98-107 [facility] Creatinine [Mass/volume] in Serum or Plasma 0.55 mg/dL 0.50-0.90 [facility] Glucose [Mass/volume] in Serum or Plasma 133 mg/dL 70-140 [facility] Alkaline phosphatase [Enzymatic activity/volume] in Serum or Plasma 52 U/L 35-104 [facility] Potassium [Moles/volume] in Serum or Plasma 4.4 mmol/L 3.4-5.1 [facility] Protein [Mass/volume] in Serum or Plasma 6.0 g/dL 6.4-8.3 L [facility] Sodium [Moles/volume] in Serum or Plasma 138 mmol/L 136-145 [facility] Aspartate aminotransferase [Enzymatic activity/volume] in Serum or Plasma 27 U/L <32 [facility] Urea nitrogen [Mass/volume] in Serum or Plasma 9 mg/dL 6-20 [facility] Osmolality of Serum or Plasma by calculation 286 mosm/kg 275-300 [facility] Creatinine/Urea nitrogen [Mass Ratio] in Serum or Plasma 17 [facility] Bicarbonate [Moles/volume] in Serum 25 mmol/L 22-29 [facility] Alanine aminotransferase [Enzymatic activity/volume] in Seru m or Plasma 20 U/L <33 [facility] Anion gap 3 in Serum or Plasma 13 mmol/L 8-15 [facility] Albumin/Globulin [Mass Ratio] in Serum or Plasma 1.1 [facility] Glomerular filtration rate/1.73 sq M pre dicted among non-blacks [Volume Rate/Area] in Serum or Plasma by Creatinine-based formula (MDRD) >6 0 [facility] Glomerular filtration rate/1.73 sq M pre dicted among blacks [Volume Rate/Area] in Serum or Plasma by Creatinine-based formula (MDRD) >60 [facility] ID Date Data Source [id number] 05/18/2019 12:57:05 PM [facility] Value Range Interpretation Code Description Data Lynn rce(s) Supporting Document(s) Magnesium [Mass/volume] in Serum or Plasma 2.2 mg/dL 1.6-2.6 [facility] ID Date Data Source [id number] 05/18/2019 12:57:05 PM [facility] Value Range Interpretation Code Description Data Lynn rce(s) Supporting Document(s) Phosphate [Mass/volume] in Serum or Plasma 2.6 mg/dL 2.5-4.5 [facility] ID Date Data Source [id number] 05/17/2019 09:52:36 PM [facility] Value Range Interpretation Code Description Data Lynn rce(s) Supporting Document(s) Glucose [Mass/volume] in Capillary blood by Glucometer 137 mg/dL 70- 140 [facility] ID Date Data Source [id number] 05/17/2019 06:54:15 PM [facility] Value Range Interpretation Code Description Data Lynn rce(s) Supporting Document(s) Glucose [Mass/volume] in Capillary blood by Glucometer 127 mg/dL 70- 140 [facility] ID Date Data Source [id number] 05/17/2019 12:32:17 PM EDT [facility] Name Value Range Interpretation Code Description Data Lynn rce(s) Supporting Document(s) Glucose [Mass/volume] in Capillary blood by Glucometer 128 mg/dL 70- 140 [facility] ID Date Data Source [id number] 05/17/2019 10:03:51 AM EDT [facility] Name Value Range Interpretation Code Description Data Lynn rce(s) Supporting Document(s) EKG [facility] [id number]E8UfTGTuGSZPEF3TxPDs jb2 [file] MDAwMDAgbiAKMDAwMDAwMTQwNiAwMDAwMCBuIAowMD BiLLS3EFSuNZHnSZDfYQ2yDzYjIVJxZKX6BNgfLEPkRGXvawAXDQOnUJOdNQjdIWXwWUYvSNNrXZkxGJ JjZGPpYLJ9GIZqHYSoHH4gObWnIXBsDLHxPDWwBqC3LzHbUfKWqVWkzNauenw2NXhhS1h2YCEdWLyaHN 1wguSqJDRcIwusWm0hwMN8AYPjBjdUZn1Ob1VykuN5qbReDeL2LIF8VvZiXW8F ID Date Data Source [id number] 05/17/2019 09:48:07 AM EDT [facility] Name Value Range Interpretation Code Description Data Lynn rce(s) Supporting Document(s) Troponin T.cardiac [Mass/volume] in Serum or Plasma <0.01 [facility] ID Date Data Source [id number] 05/17/2019 08:24:51 AM EDT [facility] Name Value Range Interpretation Code Description Data Lynn rce(s) Supporting Document(s) History and Physical [facility] [id number]/YTEryEYKno8CmEDnqZXz9XGleAXTkJ2JxLNI0lA4kVJC0EFqEVxCnJaXmBrZr lbm [file] bMuzzOu+nf59EjhW9hiN8NOoxzJvssn8JVpxF0nrYr4tdccWIVO0thZVeXZSnJL/hiyWjyB2aDbl/CONTROL CLERK HEAD [file] [id number]== ID Date Data Source [id number] [facility] Interpretation Code Description Data Lynn rce(s) Supporting Document(s) Glucose [Mass/volume] in Capillary blood by Glucometer 143 mg/dL 70- 140 H [facility] ID Date Data Source [id number] 05/17[facility]2019 [facility]49[facility] Interpretation Code Description Data Lynn rce(s) Supporting Document(s) Troponin T.cardiac [Mass/volume] in Serum or Plasma <0.01 [facility] ID Date Data Source [id number] 05/17/2019 02:58:34 AM [facility] Value Range Interpretation Code Description Data Lynn rce(s) Supporting Document(s) Albumin [Mass/volume] in Serum or Plasma by Bromocresol green (BCG) dye binding method 3.3 g/dL 3.5-5.2 L [facility] Bilirubin.total [Mass/volume] in Serum or Plasma 0.3 mg/dL <1.2 [facility] Calcium [Mass/volume] in Serum or Plasma 8.3 mg/dL 8.6-10.0 L [facility] Chloride [Moles/volume] in Serum or Plasma 101 mmol/L 98-107 [facility] Creatinine [Mass/volume] in Serum or Plasma 0.68 mg/dL 0.50-0.90 [facility] Glucose [Mass/volume] in Serum or Plasma 206 mg/dL 70-140 H [facility] Alkaline phosphatase [Enzymatic activity/volume] in Serum or Plasma 54 U/L 35-104 [facility] Potassium [Moles/volume] in Serum or Plasma 5.4 mmol/L 3.4-5.1 H [facility] Protein [Mass/volume] in Serum or Plasma 6.4 g/dL 6.4-8.3 [facility] Sodium [Moles/volume] in Serum or Plasma 134 mmol/L 136-145 L [facility] Aspartate aminotransferase [Enzymatic activity/volume] in Serum or Plasma 18 U/L <32 [facility] Urea nitrogen [Mass/volume] in Serum or Plasma 12 mg/dL 6-20 [facility] Osmolality of Serum or Plasma by calculation 284 mosm/kg 275-300 [facility] Creatinine/Urea nitrogen [Mass Ratio] in Serum or Plasma 18 [facility] Bicarbonate [Moles/volume] in Serum 20 mmol/L 22-29 L [facility] Alanine aminotransferase [Enzymatic activity/volume] in Seru m or Plasma 14 U/L <33 [facility] Anion gap 3 in Serum or Plasma 13 mmol/L 8-15 [facility] Albumin/Globulin [Mass Ratio] in Serum or Plasma 1.1 [facility] Glomerular filtration rate/1.73 sq M pre dicted among non-blacks [Volume Rate/Area] in Serum or Plasma by Creatinine-based formula (MDRD) >6 0 [facility] Glomerular filtration rate/1.73 sq M pre dicted among blacks [Volume Rate/Area] in Serum or Plasma by Creatinine-based formula (MDRD) >60 [facility] ID Date Data Source [id number] 05/17/2019 03:00:40 AM EDT [facility] Name Value Range Interpretation Code Description Data Lynn rce(s) Supporting Document(s) Leukocytes [#/volume] in Blood by Automated count 19.1 10*3/uL 4-10 H [facility] Erythrocytes [#/volume] in Blood by Automated count 3.95 10*6/uL 4.1- 5.3 L [facility] Hemoglobin [Mass/volume] in Blood 12.7 g/dL 11.5-15.5 [facility] Hematocrit [Volume Fraction] of Blood by Automated count 37.0 % 3 6-45 [facility] Erythrocyte mean corpuscular volume [Entitic volume] by Auto mated count 93.6 fL 80-96 [facility] Erythrocyte mean corpuscular hemoglobin [Entitic mass] by Automated count 32.2 pg 27-33 [facility] Erythrocyte mean corpuscular hemoglobin concentration [Mass/volume] by Automated count 34.4 g/dL 32.0-36.0 [facility] Erythrocyte distribution width [Ratio] by Automated count 13.4 % 11.5-14.5 [facility] Platelets [#/volume] in Blood by Automated count 265 10*3/uL 150-400 [facility] Confirmed Differential cell count method - Blood [facility] Neutrophils/100 leukocytes in Blood by Automated count 85 % [facility] Lymphocytes/100 leukocytes in Blood by Automated count 9 % [facility] Monocytes/100 leukocytes in Blood by Automated count 6 % [facility] Eosinophils/100 leukocytes in Blood by Automated count 0 % [facility] Basophils/100 leukocytes in Blood by Automated count 0 % [facility] Neutrophils [#/volume] in Blood by Automated count 16.20 10*3/uL 1.8- 7.0 H [facility] Lymphocytes [#/volume] in Blood by Automated count 1.72 10*3/uL 1.2-4 .0 [facility] Monocytes [#/volume] in Blood by Automated count 1.07 10*3/uL 0-0.8 H [facility] Eosinophils [#/volume] in Blood by Automated count 0.01 10*3/uL 0-0.5 [facility] Basophils [#/volume] in Blood by Automated count 0.08 10*3/uL 0-0.2 [facility] Nucleated erythrocytes/100 leukocytes [Ratio] in Blood by Automated count 0 /100{WBCs} 0-0 [facility] ID Date Data Source [id number] 05/16/2019 11:14:46 PM T [facility] CT ABDOMEN PELVIS WITH CONTRAST [id number] AL RESULTInterpreted by:VAHE WigginsROCEDURE INFORMATION: Exam: CT [...] rce(s) Supporting Document(s) ID Date Data Source [id number] 05/16/2019 08:57:26 PM [facility] Value Range Interpretation Code Description Data Lynn rce(s) Supporting Document(s) Glucose [Mass/volume] in Capillary blood by Glucometer 181 mg/dL 70- 140 H [facility] ID Date Data Source [id number] 05/16/2019 06:49:49 PM EDT [facility] Name Value Range Interpretation Code Description Data Lynn rce(s) Supporting Document(s) Leukocytes [#/volume] in Blood by Automated count 20.0 10*3/uL 4-10 H [facility] Erythrocytes [#/volume] in Blood by Automated count 4.11 10*6/uL 4.1- 5.3 [facility] Hemoglobin [Mass/volume] in Blood 13.1 g/dL 11.5-15.5 [facility] Hematocrit [Volume Fraction] of Blood by Automated count 38.2 % 3 6-45 [facility] Erythrocyte mean corpuscular volume [Entitic volume] by Auto mated count 92.8 fL 80-96 [facility] Erythrocyte mean corpuscular hemoglobin [Entitic mass] by Automated count 32.0 pg 27-33 [facility] Erythrocyte mean corpuscular hemoglobin concentration [Mass/volume] by Automated count 34.4 g/dL 32.0-36.0 [facility] Erythrocyte distribution width [Ratio] by Automated count 13.3 % 11.5-14.5 [facility] Platelets [#/volume] in Blood by Automated count 287 10*3/uL 150-400 [facility] Differential cell count method - Blood [facility] Neutrophils/100 leukocytes in Blood by Automated count 89 % [facility] Lymphocytes/100 leukocytes in Blood by Automated count 7 % [facility] Monocytes/100 leukocytes in Blood by Automated count 4 % [facility] Eosinophils/100 leukocytes in Blood by Automated count 0 % [facility] Basophils/100 leukocytes in Blood by Automated count 0 % [facility] Neutrophils [#/volume] in Blood by Automated count 17.61 10*3/uL 1.8- 7.0 H [facility] Lymphocytes [#/volume] in Blood by Automated count 1.48 10*3/uL 1.2-4 .0 [facility] Monocytes [#/volume] in Blood by Automated count 0.88 10*3/uL 0-0.8 H [facility] Eosinophils [#/volume] in Blood by Automated count 0.00 10*3/uL 0-0.5 [facility] Basophils [#/volume] in Blood by Automated count 0.07 10*3/uL 0-0.2 [facility] Nucleated erythrocytes/100 leukocytes [Ratio] in Blood by Automated count 0 /100{WBCs} 0-0 [facility] ID Date Data Source [id number] 05/16/2019 07:13:34 PM EDT [facility] Name Value Range Interpretation Code Description Data Lynn rce(s) Supporting Document(s) Troponin T.cardiac [Mass/volume] in Serum or Plasma <0.01 [facility] ID Date Data Source [id number] 05/16/2019 07:13:34 PM EDT [facility] Name Value Range Interpretation Code Description Data Lynn rce(s) Supporting Document(s) Albumin [Mass/volume] in Serum or Plasma by Bromocresol green (BCG) dye binding method 3.6 g/dL 3.5-5.2 [facility] Bilirubin.total [Mass/volume] in Serum or Plasma 0.3 mg/dL <1.2 [facility] Calcium [Mass/volume] in Serum or Plasma 8.9 mg/dL 8.6-10.0 [facility] Chloride [Moles/volume] in Serum or Plasma 96 mmol/L 98-107 L [facility] Creatinine [Mass/volume] in Serum or Plasma 0.76 mg/dL 0.50-0.90 [facility] Glucose [Mass/volume] in Serum or Plasma 179 mg/dL 70-140 H [facility] Alkaline phosphatase [Enzymatic activity/volume] in Serum or Plasma 58 U/L 35-104 [facility] Potassium [Moles/volume] in Serum or Plasma 5.1 mmol/L 3.4-5.1 [facility] Protein [Mass/volume] in Serum or Plasma 6.9 g/dL 6.4-8.3 [facility] Sodium [Moles/volume] in Serum or Plasma 131 mmol/L 136-145 L [facility] Aspartate aminotransferase [Enzymatic activity/volume] in Serum or Plasma 18 U/L <32 [facility] Urea nitrogen [Mass/volume] in Serum or Plasma 12 mg/dL 6-20 [facility] Osmolality of Serum or Plasma by calculation 276 mosm/kg 275-300 [facility] Creatinine/Urea nitrogen [Mass Ratio] in Serum or Plasma 16 [facility] Bicarbonate [Moles/volume] in Serum 21 mmol/L 22-29 L [facility] Alanine aminotransferase [Enzymatic activity/volume] in Seru m or Plasma 16 U/L <33 [facility] Anion gap 3 in Serum or Plasma 14 mmol/L 8-15 [facility] Albumin/Globulin [Mass Ratio] in Serum or Plasma 1.1 [facility] Glomerular filtration rate/1.73 sq M pre dicted among non-blacks [Volume Rate/Area] in Serum or Plasma by Creatinine-based formula (MDRD) >6 0 [facility] Glomerular filtration rate/1.73 sq M pre dicted among blacks [Volume Rate/Area] in Serum or Plasma by Creatinine-based formula (MDRD) >60 [facility] ID Date Data Source [id number] 05/16/2019 05:40:42 PM EDT [facility] Name Value Range Interpretation Code Description Data Lynn rce(s) Supporting Document(s) Glucose [Mass/volume] in Capillary blood by Glucometer 187 mg/dL 70- 140 H [facility] Procedure Social History Code Duration Value Status Description Data Source(s ) Alcohol intake 03/31/2020 12:00:00 AM EST Ex-drinker (finding) comp leted Ex- drinker (finding) [facility] Tobacco use and exposure 03/31/2020 12:00:00 AM EST Never used co mpleted Never used [facility] Cigarette pack-years 03/31/2020 12:00:00 AM EST UNK completed [facility] Cigarettes smoked current (pack per day) - Reported 03/31/19 12:00:00 AM EST UNK [facility] Smoking 03/31/2020 12:00:00 AM EST Former smoker completed Former smoker [facility] Smoking 03/11/2020 12:00:00 AM EST Former Smoker completed Former Smoker eCW1 ([facility]) Smoking 03/11/2020 12:00:00 AM EST Former Smoker completed Former Smoker eCW1 ([facility]) Alcohol intake 03/09/2020 12:00:00 AM EST Ex-drinker (finding) comp leted Ex- drinker (finding) [facility] Alcohol intake 03/06/2020 12:00:00 AM EST Ex-drinker (finding) comp leted Ex- drinker (finding) [facility] Alcohol intake 02/24/2020 12:00:00 AM EST Ex-drinker (finding) comp leted Ex- drinker (finding) [facility] Smoking 01/29/2020 12:00:00 AM EST Former Smoker completed Former Smoker eCW1 ([facility]) Alcohol intake 01/26/2020 12:00:00 AM EST Ex-drinker (finding) comp leted Ex- drinker (finding) [facility] Alcohol intake 01/21/2020 12:00:00 AM EST Ex-drinker (finding) comp leted Ex- drinker (finding) [facility] Alcohol intake 01/19/2020 12:00:00 AM EST Ex-drinker (finding) comp leted Ex- drinker (finding) [facility] Alcohol intake 01/12/2020 12:00:00 AM EST Ex-drinker (finding) comp leted Ex- drinker (finding) [facility] Alcohol intake 01/02/2020 12:00:00 AM EST Ex-drinker (finding) comp leted Ex- drinker (finding) [facility] Smoking 01/01/2020 12:00:00 AM EST Former Smoker completed Former Smoker eCW1 ([facility]) Smoking 01/01/2020 12:00:00 AM EST Former Smoker completed Former Smoker eCW1 ([facility]) Alcohol intake 12/25/2019 12:00:00 AM EDT Ex-drinker (finding) comp leted Ex- drinker (finding) [facility] Alcohol intake 12/04/2019 12:00:00 AM EDT Ex-drinker (finding) comp leted Ex- drinker (finding) [facility] Alcohol intake 11/19/2019 12:00:00 AM EDT Ex-drinker (finding) comp leted Ex- drinker (finding) [facility] Alcohol intake 11/13/2019 12:00:00 AM EDT Ex-drinker (finding) comp leted Ex- drinker (finding) [facility] Alcohol intake 10/28/2019 12:00:00 AM EDT Ex-drinker (finding) comp leted Ex- drinker (finding) [facility] Alcohol intake 10/15/2019 12:00:00 AM EDT Ex-drinker (finding) comp leted Ex- drinker (finding) [facility] Alcohol intake 10/02/2019 12:00:00 AM EDT Ex-drinker (finding) comp leted Ex- drinker (finding) [facility] Alcohol intake 09/15/2019 12:00:00 AM EDT Ex-drinker (finding) comp leted Ex- drinker (finding) [facility] Cigarette pack-years 09/15/2019 12:00:00 AM EDT UNK completed [facility] Cigarettes smoked current (pack per day) - Reported 09/15/19 12:00:00 AM EDT UNK completed [facility] Smoking 09/15/2019 12:00:00 AM EDT Former smoker completed Former smoker [facility] Alcohol intake 09/11/2019 12:00:00 AM EDT Ex-drinker (finding) comp leted Ex- drinker (finding) [facility] Cigarette pack-years 09/11/2019 12:00:00 AM EDT UNK completed [facility] Cigarettes smoked current (pack per day) - Reported 09/11/19 12:00:00 AM EDT UNK completed [facility] Smoking 09/11/2019 12:00:00 AM EDT Former smoker completed Former smoker [facility] Smoking 09/09/2019 12:00:00 AM EDT Former Smoker completed Former Smoker eCW1 ([facility]) Smoking 09/09/2019 12:00:00 AM EDT Former Smoker completed Former Smoker eCW1 ([facility]) Alcohol intake 08/20/2019 12:00:00 AM EDT Ex-drinker (finding) comp leted Ex- drinker (finding) [facility] Cigarette pack-years 08/20/2019 12:00:00 AM EDT UNK [facility] Cigarettes smoked current (pack per day) - Reported 08/20/19 12:00:00 AM EDT UNK completed [facility] Smoking 08/20/2019 12:00:00 AM EDT Former smoker completed Former smoker [facility] Alcohol intake 07/23/2019 12:00:00 AM EDT Ex-drinker (finding) comp leted Ex- drinker (finding) [facility] Cigarette pack-years 07/23/2019 12:00:00 AM EDT UNK [facility] Cigarettes smoked current (pack per day) - Reported 07/23/19 12:00:00 AM EDT UNK [facility] [facility] Smoking 07/23/2019 12:00:00 AM EDT Former smoker completed Former smoker [facility] Alcohol intake 07/02/2019 12:00:00 AM EDT Ex-drinker (finding) comp leted Ex- drinker (finding) [facility] Cigarette pack-years 07/02/2019 12:00:00 AM EDT UNK completed [facility] Cigarettes smoked current (pack per day) - Reported 07/02/19 12:00:00 AM EDT UNK completed [facility] Smoking 07/02/2019 12:00:00 AM EDT Current every day smoker co mpleted Current every day smoker [facility] Alcohol intake 06/11/2019 12:00:00 AM EDT Ex-drinker (finding) comp leted Ex- drinker (finding) [facility] Cigarette pack-years 06/11/2019 12:00:00 AM EDT UNK [facility] Cigarettes smoked current (pack per day) - Reported 06/11/19 12:00:00 AM EDT UNK completed [facility] Smoking 06/11/2019 12:00:00 AM EDT Current every day smoker co mpleted Current every day smoker [facility] Alcohol intake 05/16/2019 12:00:00 AM EDT Ex-drinker (finding) comp leted Ex- drinker (finding) [facility] Cigarette pack-years 05/16/2019 12:00:00 AM EDT UNK [facility] Cigarettes smoked current (pack per day) - Reported 05/16/19 12:00:00 AM EDT UNK completed [facility] Smoking 05/16/2019 12:00:00 AM EDT Current every day smoker co mpleted Current every day smoker [facility] 05/16/2019 12:00:00 AM EDT Cigarette Smoker completed Cig arette Smoker [facility] 05/16/2019 12:00:00 AM EDT Current smoker completed Curre nt smoker [facility] 05/16/2019 12:00:00 AM EDT Cigarette Smoker completed Cig arette Smoker [facility] 05/16/2019 12:00:00 AM EDT Current smoker completed Curre nt smoker [facility] 05/16/2019 12:00:00 AM EDT Cigarette Smoker completed Cig arette Smoker [facility] 05/16/2019 12:00:00 AM EDT Current smoker completed Curre nt smoker [facility] 05/16/2019 12:00:00 AM EDT Cigarette Smoker completed Cig arette Smoker [facility] 05/16/2019 12:00:00 AM EDT Current smoker completed Curre nt smoker [facility] 05/16/2019 12:00:00 AM EDT Cigarette Smoker completed Cig arette Smoker [facility] 05/16/2019 12:00:00 AM EDT Current smoker completed Curre nt [facility] Vital Signs ID Date Data Source UNK Name Value Range Interpretation Code Description Data Source(s) Diastolic blood pressure 62 mm[Hg] 62 mm[Hg] eCW1 ([facility]) Systolic blood pressure 110 mm[Hg] 110 mm[Hg] e CW1 ([facility]) Body temperature 98.1 [degF] 98.1 [degF] eCW1 ( [facility]) Respiratory rate 18 /min 18 /min eCW1 ([facility]) Heart rate 103 /min 103 /min eCW1 ([facility]) Body mass index (BMI) [Ratio] 28.59 kg/m2 28.59 kg/m2 eCW1 ([facility]) Body height 63 [in_i] 63 [in_i] eCW1 ([facility]) Body weight 161.4 [lb_av] 161.4 [lb_av] eCW1 ([facility]) Diastolic blood pressure 72 mm[Hg] 72 mm[Hg] eCW1 ([facility]) Systolic blood pressure 120 mm[Hg] 120 mm[Hg] e CW1 ([facility]) Body temperature 99.6 [degF] 99.6 [degF] eCW1 ( [facility]) Respiratory rate 18 /min 18 /min eCW1 ([facility]) Heart rate 103 /min 103 /min eCW1 ([facility]) Body mass index (BMI) [Ratio] 29.05 kg/m2 29.05 kg/m2 W1 ([facility]) Body height 63 [in_i] 63 [in_i] eCW1 ([facility]) Body weight 164 [lb_av] 164 [lb_av] eCW1 ([facility]) Diastolic blood pressure--supine 76 mm[Hg] 76 mm[Hg] MEDENT ([facility]) Ra, med cuff Systolic blood pressure--supine 104 mm[Hg] 104 mm[Hg] MEDENT ([facility]) Ra, med cuff Diastolic blood pressure--sitting 70 mm[Hg] 70 mm[Hg] MEDENT ([facility]) Ra, med cuff Systolic blood pressure--sitting 98 mm[Hg] 98 mm[Hg] MEDENT ([facility]) Ra, med cuff Respiratory rate 16 /min 16 /min MEDENT ( [facility]) Heart rate 72 /min 72 /min MEDENT ([facility]) Body mass index (BMI) [Ratio] 30.3 kg/m2 30.3 k g/m2 MEDENT ([facility]) Body height 63 [in_i] 63 [in_i] MEDENT ([facility]) 5'3" Body weight 171.00 [lb_av] 171.00 [lb_av] MEDEN T ([facility]) Diastolic blood pressure 70 mm[Hg] 70 mm[Hg] eCW1 ([facility]) Systolic blood pressure 120 mm[Hg] 120 mm[Hg] e CW1 ([facility]) Body temperature 97.4 [degF] 97.4 [degF] eCW1 ( [facility]) Respiratory rate 20 /min 20 /min eCW1 ([facility]) Heart rate 132 /min 132 /min eCW1 ([facility]) Body mass index (BMI) [Ratio] 30.15 kg/m2 30.15 kg/m2 eCW1 ([facility]) Body height 63 [in_i] 63 [in_i] eCW1 ([facility]) Body weight 170.2 [lb_av] 170.2 [lb_av] eCW1 ([facility]) Diastolic blood pressure 70 mm[Hg] 70 mm[Hg] eCW1 ([facility]) Systolic blood pressure 110 mm[Hg] 110 mm[Hg] e CW1 ([facility]) Body temperature 96.8 [degF] 96.8 [degF] eCW1 ( [facility]) Respiratory rate 18 /min 18 /min eCW1 ([facility]) Heart rate 95 /min 95 /min eCW1 ([facility]) Body mass index (BMI) [Ratio] 32.17 kg/m2 32.17 kg/m2 eCW1 ([facility]) Body height 63 [in_i] 63 [in_i] eCW1 ([facility]) Body weight 181.6 [lb_av] 181.6 [lb_av] eCW1 ([facility]) Diastolic blood pressure 68 mm[Hg] 68 mm[Hg] eCW1 ([facility]) Systolic blood pressure 120 mm[Hg] 120 mm[Hg] e CW1 ([facility]) Body temperature 97.1 [degF] 97.1 [degF] eCW1 ( [facility]) Respiratory rate 18 /min 18 /min eCW1 ([facility]) Heart rate 96 /min 96 /min eCW1 ([facility]) Body mass index (BMI) [Ratio] 31.49 kg/m2 31.49 kg/m2 eCW1 ([facility]) Body height 63 [in_us] 63 [in_us] eCW1 ([facility]) Body weight Measured 177.8 [lb_av] 177.8 [lb_av ] eCW1 ([facility]) Diastolic blood pressure 72 mm[Hg] 72 mm[Hg] eCW1 ([facility]) Systolic blood pressure 120 mm[Hg] 120 mm[Hg] e CW1 ([facility]) Body temperature 97.4 [degF] 97.4 [degF] eCW1 ( [facility]) Respiratory rate 18 /min 18 /min eCW1 ([facility]) Heart rate 98 /min 98 /min eCW1 ([facility]) Body mass index (BMI) [Ratio] 33.72 kg/m2 33.72 kg/m2 eCW1 ([facility]) Body height 63 [in_us] 63 [in_us] eCW1 ([facility]) Body weight Measured 190.4 [lb_av] 190.4 [lb_av ] eCW1 ([facility]) ID Date Data Source [id number] 03/31/2020 03:20:01 PM [facility] Name Value Range Interpretation Code Description Data Source(s) WEIGHT RECORDED 160.[address] [facility] ID Date Data Source [id number] 03/17/2020 12:53:42 PM [facility] Name Value Range Interpretation Code Description Data Source(s) WEIGHT RECORDED [address] [facility] Body height Measured 60.[address] [facility] ID Date Data Source [id number] 03/10/2020 09:01:32 AM [facility] Value Range Interpretation Code Description Data Source(s) WEIGHT RECORDED [address] [facility] Body height Measured 60.[address] [facility] ID Date Data Source [id number] 02/24/2020 02:17:47 PM [facility] Name Value Range Interpretation Code Description Data Source(s) WEIGHT RECORDED [address] [facility] ID Date Data Source [id number] 01/26/2020 02:26:40 PM [facility] Value Range Interpretation Code Description Data Source(s) WEIGHT RECORDED [address] [facility] Body height Measured [address] [facility] ID Date Data Source [id number] 01/21/2020 03:11:36 PM [facility] Name Value Range Interpretation Code Description Data Source(s) WEIGHT RECORDED 163.[address] [facility] ID Date Data Source [id number] 01/21/2020 02:09:53 PM [facility] Name Value Range Interpretation Code Description Data Source(s) WEIGHT RECORDED [address] [facility] ID Date Data Source [id number] 01/19/2020 10:09:38 AM [facility] Name Value Range Interpretation Code Description Data Source(s) WEIGHT RECORDED 168.[address] [facility] ID Date Data Source [id number] 01/20/2020 03:54:51 PM EST [facility] Name Value Range Interpretation Code Description Data Source(s) WEIGHT RECORDED 171 lb 171 lb [facility] ID Date Data Source [id number] 12/25/2019 03:33:46 PM EDT [facility] Name Value Range Interpretation Code Description Data Source(s) WEIGHT RECORDED 172.8 lb 172.8 lb [facility] ID Date Data Source [id number] 12/04/2019 03:10:01 PM EDT [facility] Name Value Range Interpretation Code Description Data Source(s) WEIGHT RECORDED 180.[address] [facility] ID Date Data Source [id number] 12/02/2019 12:02:17 PM EDT [facility] Name Value Range Interpretation Code Description Data Source(s) WEIGHT RECORDED 181.[address] [facility] ID Date Data Source [id number] 11/15/2019 08:47:36 AM EDT [facility] Name Value Range Interpretation Code Description Data Source(s) WEIGHT RECORDED 185.[address] [facility] ID Date Data Source [id number] 10/28/2019 09:02:08 AM EDT [facility] Name Value Range Interpretation Code Description Data Source(s) WEIGHT RECORDED 185.[address] [facility] ID Date Data Source [id number] 10/15/2019 05:19:44 PM EDT [facility] Name Value Range Interpretation Code Description Data Source(s) WEIGHT RECORDED 183.6 lb 183.6 lb [facility] ID Date Data Source [id number] 10/08/2019 06:10:48 PM EDT [facility] Name Value Range Interpretation Code Description Data Source(s) WEIGHT RECORDED 183.6 lb 183.6 lb [facility] ID Date Data Source [id number] 10/02/2019 02:41:44 PM EDT [facility] Name Value Range Interpretation Code Description Data Source(s) WEIGHT RECORDED 182 lb 182 lb [facility] ID Date Data Source [id number] 09/25/2019 09:00:20 AM EDT [facility] Name Value Range Interpretation Code Description Data Source(s) WEIGHT RECORDED 181.[address] [facility] ID Date Data Source [id number] 09/16/2019 02:06:07 PM EDT [facility] Name Value Range Interpretation Code Description Data Source(s) WEIGHT RECORDED [address] [facility] ID Date Data Source [id number] 09/22/2019 10:41:08 AM EDT [facility] Name Value Range Interpretation Code Description Data Source(s) WEIGHT RECORDED 179.[address] [facility] ID Date Data Source [id number] 08/26/2019 02:07:52 PM EDT [facility] Value Range Interpretation Code Description Data Source(s) WEIGHT RECORDED 176.[address] [facility] ID Date Data Source [id number] 08/05/2019 09:13:03 AM EDT [facility] Value Range Interpretation Code Description Data Source(s) WEIGHT RECORDED 177.[address] [facility] ID Date Data Source [id number] 07/22/2019 11:10:56 AM EDT [facility] Name Value Range Interpretation Code Description Data Source(s) WEIGHT RECORDED [address] [facility] ID Date Data Source [id number] 07/04/2019 07:56:29 AM EDT [facility] Value Range Interpretation Code Description Data Source(s) WEIGHT RECORDED [address] [facility] ID Date Data Source [id number] 06/12/2019 08:13:51 AM EDT [facility] Name Value Range Interpretation Code Description Data Source(s) WEIGHT RECORDED 184.[address] [facility] ID Date Data Source [id number] 05/29/2019 09:03:46 AM EDT [facility] Name Value Range Interpretation Code Description Data Source(s) WEIGHT RECORDED 190.[address] [facility] Body height Measured 63.19 in 63.19 in [facility] Patient Treatment Plan of Care Planned Activity Planned Date Details Description Data Source (s) Magnesium Oxide 400 MG Oral Capsule 03/31/2020 12:00:00 AM [facility] Ondansetron 8 MG Oral Tablet 03/31/2020 12:00:00 AM [facility] Etoposide 50 MG Oral Capsule 03/31/2020 12:00:00 AM [facility] Dexamethasone 4 MG Oral Tablet 03/31/2020 12:00:00 AM [facility] Lorazepam 0.5 MG Oral Tablet 03/09/2020 12:00:00 AM [facility] Lorazepam 0.5 MG Oral Tablet 02/04/2020 12:00:00 AM [facility] 200 ACTUAT Albuterol 0.09 MG/ACTUAT Metered Dose Inhal er [Ventolin] 01/28/2020 12:00:00 AM [place] [address] ([facility]) Cortisporin 3.5-61461-9 01/28/2020 12:00:00 AM [place] [address] ([facility]) Acetaminophen 325 MG / Hydrocodone Bitartrate 5 MG Ora l Tablet 01/12/2020 12:00:00 AM [facility] atorvastatin 20 MG Oral Tablet 01/01/2020 12:00:00 AM EST [facility] ([facility]) atorvastatin 20 MG Oral Tablet 01/01/2020 12:00:00 AM EST [facility] ([facility]) Clobetasol Propionate E 0.05 % 01/01/2020 12:00:00 AM EST [facility] ([facility]) atorvastatin 20 MG Oral Tablet 01/01/2020 12:00:00 AM EST [facility] ([facility]) Clobetasol Propionate E 0.05 % 01/01/2020 12:00:00 AM EST [facility] ([facility]) atorvastatin 20 MG Oral Tablet 01/01/2020 12:00:00 AM EST [facility] ([facility]) Levothyroxine Sodium 0.125 MG Oral Tablet 12/04/2019 12:00:00 AM [facility] Levothyroxine Sodium 0.125 MG Oral Tablet 11/25/2019 12:00:00 AM [facility] Levothyroxine Sodium 0.05 MG Oral Tablet 11/13/2019 12:00:00 AM [facility] Levothyroxine Sodium 0.025 MG Oral Tablet 11/13/2019 12:00:00 AM [facility] Dexamethasone 2 MG Oral Tablet 10/15/2019 12:00:00 AM [facility] Dexamethasone 2 MG Oral Tablet 10/15/2019 12:00:00 AM [facility] Memantine hydrochloride 10 MG Oral Tablet 09/16/2019 12:00:00 AM [facility] Memantine HCl 28 x 5 MG & 21 x 10 MG Oral Tablet (NAME NDA TITRATION PACK) 09/16/2019 12:00:00 AM [facility] Levothyroxine Sodium 0.025 MG Oral Tablet 09/11/2019 12:00:00 AM [facility] Ondansetron 8 MG Oral Tablet 07/24/2019 12:00:00 AM [facility] Dexamethasone 4 MG Oral Tablet 07/24/2019 12:00:00 AM [facility] Etoposide 50 MG Oral Capsule 07/24/2019 12:00:00 AM [facility] Loratadine 10 MG Oral Tablet 07/23/2019 12:00:00 AM [facility] Allopurinol 300 MG Oral Tablet 07/09/2019 12:00:00 AM [place] [address] ([facility]) Allopurinol 300 MG Oral Tablet 07/09/2019 12:00:00 AM [place] [address] ([facility]) Allopurinol 300 MG Oral Tablet 07/09/2019 12:00:00 AM [place] [address] ([facility]) Levothyroxine Sodium 0.075 MG Oral Tablet 07/08/2019 12:00:00 AM [facility] Dexamethasone 4 MG Oral Tablet 07/03/2019 12:00:00 AM [facility] Etoposide 50 MG Oral Capsule 07/03/2019 12:00:00 AM [facility] Ondansetron 4 MG Oral Tablet 07/02/2019 12:00:00 AM [facility] Prochlorperazine 10 MG Oral Tablet 07/02/2019 12:00:00 AM [facility] Dexamethasone 4 MG Oral Tablet 06/12/2019 12:00:00 AM [facility] Ondansetron 4 MG Oral Tablet 06/11/2019 12:00:00 AM [facility] Prochlorperazine 10 MG Oral Tablet 06/11/2019 12:00:00 AM [facility] Etoposide 50 MG Oral Capsule 06/11/2019 12:00:00 AM [facility] Blood Pressure Kit - 05/27/2019 12:00:00 AM [facility] eCW1 ([facility]) Levothyroxine Sodium 0.1 MG Oral Tablet 05/21/2019 12:00:00 AM [facility] Allopurinol 300 MG Oral Tablet 05/20/2019 12:00:00 AM [facility] Metoprolol Tartrate 50 MG Oral Tablet 05/20/2019 12:00:00 AM [facility] atorvastatin 40 MG Oral Tablet 05/20/2019 12:00:00 AM [facility] Cholecalciferol 1000 UNT Oral Tablet 05/20/2019 12:00:00 AM [facility] Lisinopril 10 MG Oral Tablet 05/20/2019 12:00:00 AM [facility] Benzocaine 15 MG / Menthol 3.6 MG Oral Lozenge 05/20/2019 12:00:00 AM [facility] Prochlorperazine 10 MG Oral Tablet 05/20/2019 12:00:00 AM [facility] Ondansetron 8 MG Disintegrating Oral Tablet 05/20/2019 12:00:00 AM [facility] Ondansetron 4 MG Oral Tablet 05/20/2019 12:00:00 AM [facility] Acetaminophen 325 MG / Hydrocodone Bitartrate 5 MG Ora l Tablet 05/20/2019 12:00:00 AM [facility] Acetaminophen 325 MG Oral Tablet 05/20/2019 12:00:00 AM [facility] sodium chloride (preservative free) 0.9 % flush 10 mL 05/17/2019 11:33:14 AM [facility] dextrose 50 % IV solution 25 mL 05/16/2019 06:42:47 PM [facility] Glucagon 1 MG Injection 05/16/2019 06:42:47 PM [facility] Glucose 0.4 MG/MG Oral Gel 05/16/2019 06:42:47 PM [facility] dextrose 50 % IV solution 25 mL 05/16/2019 04:41:30 PM EDT [facility] Glucagon 1 MG In[facility]MG [facility]al [facility] 220 MG Oral Capsule [Aleve] 04/08/2019 12:00:00 AM EST eCW1 ([facility]) Metformin hydrochloride 500 MG Oral Tablet 04/08/2019 12:00:[address] eCW1 ([facility]) Metformin hydrochloride 1000 MG Oral Tablet [facility] Levothyroxine Sodium 0.025 MG Oral Tablet [facility] Levothyroxine Sodium 0.05 MG Oral Tablet [facility] Cholecalciferol 2000 UNT Oral Tablet [facility] Metoprolol Tartrate 50 MG Oral Tablet [facility] Lisinopril 10 MG Oral Tablet [facility] atorvastatin 40 MG Oral Tablet [facility] Levothyroxine Sodium 0.1 MG Oral Tablet [facility]
[2020-04-12] MEDS: HumaLOG INSULIN (NovoLOG) PER UNIT SC SCH (21:00)
[2020-04-12 22:20] VITALS: BP 123/87
[2020-04-12] MEDS: MAG SULF 1GM/100ML (MAG RUN) 1 GM in IV 1 EA IV SCH (22:41)
[2020-04-12] MEDS: NS 1,000 ML IV SCH (22:41)
[2020-04-12] MEDS: ATORVASTATIN 20 MG TAB PO SCH (22:42)
[2020-04-12] MEDS: METOPROLOL TART 50 MG TAB PO SCH (22:42)
[2020-04-13] VITALS (8 sets, daily range): BP systolic 91–131; BP diastolic 69–89
[2020-04-13] MEDS: MAG SULF 1GM/100ML (MAG RUN) 1 GM in IV 1 EA IV SCH ×2 (00:09→01:20)
[2020-04-13] MEDS: PIPERACILLIN/TAZOBACTAM SOD 4.5 GM in D5W MINI-BAG PLUS 50 ML IV SCH ×4 (02:33→19:16)
[2020-04-13] MEDS ORDERED: LEVOTHYROXINE 125MCG TABLET (0.125MG) PO SCH (06:00)
[2020-04-13] MEDS: HumaLOG INSULIN (NovoLOG) PER UNIT SC SCH ×4 (07:30→21:00)
--- NOTE | 2020-04-13 07:38 | ECGEPIP ---
[facility] - ED Test Date: 2020-04-12 Pat Name: ALEXA TOMLIN Department: Room: - Gender: Female Hr Advisor: : [id number] Requested By: SHELIA Cotton Order Number: [id number] Reading MD: Gelacio Martinez Measurements Intervals [place] Rate: 121 P: 61 ND: 154 QRS: 54 QRSD: 76 T: 33 QT: 302 QTc: 428 Interpretive Statements Sinus tachycardia with premature atrial complexes POOR R WAVE PROGRESSION BASELINE ARTIFACT AFFECTS INTERPRETATION RATE CHANGE COMPARED TO 11/17/19 Electronically Signed on 04-13-2020 7:38:23 EST by Gelacio Martinez
[2020-04-13 07:50] LABS: HEMATOCRIT 22.9 % (36.0-47.0); HEMOGLOBIN 8.1 g/dl (12.0-15.5); LYMPH # 0.2 10^3/uL (1.5-5.0); LYMPH % 82.1 % (24.0-44.0); MEAN CORPUSCULAR HEMOGLOBIN 35.1 pg (27.0-33.0); MEAN CORPUSCULAR HGB CONC 35.4 g/dl (32.0-36.5); MEAN CORPUSCULAR VOLUME 99.1 fl (80.0-96.0); MONO % 14.3 % (2.0-8.0); NEUTROPHILS % 3.6 % (36.0-66.0); RED BLOOD COUNT 2.31 10^6/uL (4.00-5.40)
[2020-04-13 07:52] LABS: CALCIUM LEVEL 8.8 MG/DL (8.5-10.1); CREATININE FOR GFR 1.65 MG/DL (0.55-1.30); GLOMERULAR FILTRATION RATE 34.8 (>51); POTASSIUM SERUM 3.2 MEQ/L (3.5-5.1)
[2020-04-13 08:01] LABS: WHITE BLOOD COUNT 0.3 10^3/uL (4.0-10.0)
[2020-04-13 08:03] LABS: PLATELET COUNT, AUTOMATED 13 10^3/uL (150-450)
[2020-04-13] MEDS: CEPACOL LOZENGE PO PRN ×2 (08:34→18:02)
[2020-04-13] MEDS: METOPROLOL TART 50 MG TAB PO SCH ×2 (09:00→21:13)
[2020-04-13] MEDS: allopurinoL 300 MG TAB PO SCH (09:09)
[2020-04-13] MEDS: NS 1,000 ML IV SCH (09:09)
[2020-04-13] MEDS: MULTIVITAMINS/MINERALS THERAP 1 TAB PO SCH (09:09)
[2020-04-13 10:25] LABS: MAGNESIUM LEVEL 2.7 MG/DL (1.8-2.4)
[2020-04-13] MEDS: FILGRASTIM 480 MCG/0.8 ML SYRINGE (J1442) SC SCH (10:28)
[2020-04-13] MEDS ORDERED: POTASSIUM CHLORIDE 10 MEQ SR TABLET PO ONE (10:30)
[2020-04-13] MEDS ORDERED: NS 1,000 ML IV ONE (10:30)
--- NOTE | 2020-04-13 10:45 | IPNPDOC ---
Date Seen The patient was seen on 04/13/20. Progress Note SUBJECTIVE: Patient denies any fever, chills, nausea, vomiting, shortness of breath, chest pain, pressure, tightness. OBJECTIVE PHYSICAL EXAMINATION: VITAL SIGNS: Please see below. GENERAL: Awake, alert, oriented 3, answering questions appropriately. No respiratory distress icterus or jaundice HEENT: No JVD, thyromegaly. Neck is supple, full range of motion. Dry mucous membranes CARDIOVASCULAR: S1, S2, sinus rhythm RESPIRATORY: Diminished ABDOMINAL: Soft nontender nondistended positive bowel sounds EXTREMITIES: No cyanosis or clubbing LABORATORY DATA, IMAGING STUDIES, MICROBIOLOGY: Please see below. ASSESSMENT AND PLAN: 54-year-old with metastatic small cell lung cancer admitted for pancytopenia and low-grade fever. Currently on IV antibiotics PROBLEMS: 1. Small cell lung cancer with brain mets diagnosed 04/2019 with pancytopenia due to chemotherapy 2. Suspected spinal mets - following with oncology in [place] 3. Hypertension 4. Diabetes mellitus type 2 5. Hypothyroidism 6. Degenerative disc disease 7. DVT in upper extremity 04/2016 Plan: Patient is currently on Neupogen, IV antibiotics, stage director, Dr. powers is been consulted. Reverse isolation. Await culture results and tailor antibiotics accordingly Resumed on home medications. DVT prophylaxis with compression stockings VS, I&O, 24H, Fishbone Vital Signs/I&O Vital Signs Date Time Temp Pulse Resp B/P (MAP) Pulse Ox O2 Delivery O2 Flow Rate FiO2 04/13/20 09:00 117 108/73 04/13/20 08:00 97.9 18 Room Air 04/13/20 06:00 99 I&O- Last 24 Hours up to 6 AM 04/13/20 06:00 Intake Total 1880 ml Output Total 100 ml Balance 1780 ml Laboratory Data 24H LABS Laboratory Tests 2 04/12/20 16:41: Immature Granulocyte % (Auto) 3.1H, Neutrophils (%) (Auto) 0.0L, Lymphocytes (%) (Auto) 84.4H, Monocytes (%) (Auto) 9.4H, Eosinophils (%) (Auto) 3.1H, Basophils (%) (Auto) 0.0, Neutrophils # (Auto) 0.0L, Lymphocytes # (Auto) 0.3L, Monocytes # (Auto) 0.0, Eosinophils # (Auto) 0.0, Basophils # (Auto) 0.0, Nucleated Red Blood Cells % (auto) 0.0, Immature Platelet Fraction 8.8, Prothrombin Time 13.5, Prothromb Time International Ratio 1.01, Activated Partial Thromboplast Time 27.9, Magnesium Level 1.3L, Total Bilirubin 0.4, Direct Bilirubin 0.2, Aspartate Amino Transf (AST/SGOT) 35, Alanine Aminotransferase (ALT/SGPT) 33, Alkaline Phosphatase 167H, Total Creatine Kinase 53, Creatine Kinase MB < 1.0, Creatine Kinase MB Relative Index 1.89, Troponin I < 0.02, BR-Qob-U-Type Natriuretic Peptide 354H, Total Protein 6.8, Albumin 3.2, Albumin/Globulin Ratio 0.9L, Lipase 73, Thyroid Stimulating Hormone (TSH) 18.900H 04/12/20 16:59: POC Glucose (Misc Panel) 139H, POC Sodium (Misc Panel) 134L, POC Potassium (Misc Panel) 3.6, POC Chloride (Misc Panel) 100, POC Total CO2 (Misc Panel) 23.0, POC Blood Urea Nitrogen (Misc Panel 28H, POC Ionized Calcium (Misc Panel) 5.6H, POC Creatinine (Misc Panel) 2.0H, POC Hematocrit (Misc Panel) 29.0L 04/12/20 18:45: Coronavirus (COVID-19)(PCR) NEGATIVE, Influenza Type A (RT-PCR) NEGATIVE, Influenza Type B (RT-PCR) NEGATIVE, Respiratory Syncytial Virus (PCR) NEGATIVE 04/12/20 21:19: Troponin I < 0.02 04/12/20 22:29: Bedside Glucose (Misc Panel) 153H 04/13/20 06:56: Immature Granulocyte % (Auto) 0.0, Neutrophils (%) (Auto) 3.6L, Lymphocytes (%) (Auto) 82.1H, Monocytes (%) (Auto) 14.3H, Eosinophils (%) (Auto) 0.0, Basophils (%) (Auto) 0.0, Neutrophils # (Auto) 0.0L, Lymphocytes # (Auto) 0.2L, Monocytes # (Auto) 0.0, Eosinophils # (Auto) 0.0, Basophils # (Auto) 0.0, Nucleated Red Blood Cells % (auto) 0.0, Anion Gap 10, Glomerular Filtration Rate 34.8L, Calcium Level 8.8, Magnesium Level 2.7H 04/13/20 08:10: Bedside Glucose (Misc Panel) 141H CBC/BMP Laboratory Tests 04/12/20 16:41 04/13/20 06:56 Microbiology Microbiology 04/13/20 Group A Streptococcus Screen (JULISSA) - Final, Resulted 04/13/20 Group A Streptococcus Screen (JULISSA), Resulted Pending BOONE GREENE MD Apr 13, 2020 10:42
[2020-04-13] MEDS ORDERED: LIDOCAINE VISCOUS 2% SOLN 15ML UDC SS PRN (11:00)
[2020-04-13] MEDS ORDERED: METOPROLOL TART 50 MG TAB PO ONE (15:15)
[2020-04-13] MEDS: LACTOBACILLUS ACIDOPHILUS CAP (BACID) PO SCH (18:02)
--- NOTE | 2020-04-13 18:13 | CR.PDOC ---
General Date of Consultation: Apr 13, 2020 Referring Provider: NAZ MODI DO Attending Physician: BRENDAN ADAME MD Consultation REASON FOR CONSULTATION/CHIEF COMPLAINT: [Metastatic small cell lung carcinoma with brain metastases with pancytopenia and ERIKA]. HISTORY OF PRESENT ILLNESS: [I had the pleasure of seeing Mrs. Sugey Garvey in consultation for small cell lung carcinoma with brain metastases status post radiosurgery of brain metastases and chemotherapy. As you know Mrs. Krishnan is a 54-year-old white female who is a resident of [facility] and has been a chronic smoker although she quit in April 2019. She was diagnosed to have small cell lung carcinoma and underwent radiosurgery by Dr. Moore at [facility] . According to the patient she was found to have 12 brain spots once the radiation was over she got first cycle of chemotherapy highly likely with cisplatin and [employer]ER-16 although patient does not know the name of chemotherapy. She presented to emergency room on March with increasing weakness and chest pain. Patient was found to have superior neutropenia with absolute neutrophil count of 0 and ERIKA. Patient was started on Neupogen with first dose of Neupogen last evening. She is getting 400 g of Neupogen and has been started on Zosyn. Patient currently is feeling weak and fatigued out and tired. She has severe sore throat and pain in swallowing. She is unable to eat anything and is using chicken broth he was unable to swallow any pured diet. She has minimal cough and has no phlegm or wheezing. She did not have fever chills or rigors although her temperature is 90.0F. At home she has been having slight diarrhea but currently she does not have an diarrhea. She was found to have high BUN and creatinine and ERIKA. Her hemoglobin at her arrival was 10.0 which dropped down to 8.1 today. PAST MEDICAL HISTORY: 1. [Small cell lung carcinoma with brain metastases and suspected spinal metastases followed in [place]]. 2. [Hypertension]. 3. NIDDM 4. Hypothyroidism 5. History of DVT in upper extremity PAST SURGICAL HISTORY: 1. [Tubal ligation] FAMILY HISTORY: Father: [Mnire's disease, hypertension] Mother: [NIDDM, hypertension, hypercholesterolemia] SOCIAL HISTORY: Tobacco use:[Quit smoking in April 2019] ETOH: [No history of alcohol abuse] Illicit drug use: [None] REVIEW OF SYSTEMS: CONSTITUTIONAL: [Feels weak and tired and listless]. HEENT: [None]. CARDIOVASCULAR: [No chest pain palpitations PND or orthopnea.]. RESPIRATORY: [Denies shortness of breath although has mild cough]. GENITOURINARY: [No burning urination]. MUSCULOSKELETAL: [Generalized weakness]. GASTROINTESTINAL: [Had small diarrhea at home]. SKIN: [No bruising or bleeding]. NEUROLOGICAL: [Generalized weakness]. PSYCHIATRIC: [None]. ENDOCRINE: [NIDDM]. HEMATOLOGIC/LYMPHATIC: [Severe pancytopenia]. ALLERGIC/IMMUNOLOGIC: [None]. PHYSICAL EXAMINATION: VITAL SIGNS: Please see below. GENERAL APPEARANCE: [A sick looking female distressed with sore throat and weak ness]. HEENT: [WNL EOMI oral cavity clear without mucositis or thrush throat is congested]. RESPIRATORY: [Lungs are clear to auscultation]. CARDIOVASCULAR: [Tachycardia]. ABDOMEN: [Obese, soft, nontender]. EXTREMITIES: [Minimal pedal edema]. NEUROLOGICAL: [No focal neurological deficit CN II 12 intact]. PSYCHIATRIC: [Depressed]. LABORATORY DATA: Please see below. ASSESSMENT/PLAN: 1. [Extensive small cell lung carcinoma with brain metastases status post radiosurgery to 12 spots in the brain and one cycle of chemotherapy at [facility]. Second cycle is due on 04/21/2019]. 2. [Pancytopenia. Patient hemoglobin has gone down from 10 yesterday and currently 8.1 likely due to hemodilution. She was throwing up at home and has some diarrhea. 8.1 is likely to be true feeding since yesterday when she came she was hemoconcentrated. Her absolute neutrophil count is 0. She has received 2 doses of Neupogen. Her platelets are also low at 13. She has no bleeding or bruising at this point. I would suggest to continue Neupogen 40 g subcutaneous daily. She needs to have 1 dose of Procrit 40,000 units subcutaneous 1. Patient will need 1 unit of blood transfusion to keep hematocrit up since patient has more tendency to bleed when hematocrit is low. Watch CBC every day and his platelets go down below 10 she should be transfused with a single unit of pheresed platelet. Daily CBC should be watched closely. Patient should continue Zosyn until absolute neutrophil count goes up to 500 and then IV antibiotic can be switched to oral antibiotics. 3. ERIKA. Watch daily kidney function. It is likely due to chemotherapy with cisplatin. Since she might not be drinking enough fluid due to vomiting and diarrhea. If condition worsens a nephrology consult should be called. Maintain electrolyte balance. Vital Signs/I&O Vital Signs Date Time Temp Pulse Resp B/P (MAP) Pulse Ox O2 Delivery O2 Flow Rate FiO2 04/13/20 15:24 120 131/89 04/13/20 14:00 99.4 16 99 Room Air I&O- Last 24 Hours up to 6 AM 04/13/20 06:00 Intake Total 1880 ml Output Total 100 ml Balance 1780 ml Laboratory Data Labs 24H Laboratory Tests 2 04/12/20 18:45: Coronavirus (COVID-19)(PCR) NEGATIVE, Influenza Type A (RT-PCR) NEGATIVE, Influenza Type B (RT-PCR) NEGATIVE, Respiratory Syncytial Virus (PCR) NEGATIVE 04/12/20 21:19: Troponin I < 0.02 04/12/20 22:29: Bedside Glucose (Misc Panel) 153H 04/13/20 06:56: Immature Granulocyte % (Auto) 0.0, Neutrophils (%) (Auto) 3.6L, Lymphocytes (%) (Auto) 82.1H, Monocytes (%) (Auto) 14.3H, Eosinophils (%) (Auto) 0.0, Basophils (%) (Auto) 0.0, Neutrophils # (Auto) 0.0L, Lymphocytes # (Auto) 0.2L, Monocytes # (Auto) 0.0, Eosinophils # (Auto) 0.0, Basophils # (Auto) 0.0, Nucleated Red Blood Cells % (auto) 0.0, Anion Gap 10, Glomerular Filtration Rate 34.8L, Calc ium Level 8.8, Magnesium Level 2.7H 04/13/20 08:10: Bedside Glucose (Misc Panel) 141H 04/13/20 11:40: Bedside Glucose (Misc Panel) 128H 04/13/20 16:50: Bedside Glucose (Misc Panel) 133H CBC/BMP Laboratory Tests 04/13/20 06:56 Microbiology Microbiology 04/13/20 Group A Streptococcus Screen (JULISSA) - Final, Resulted 04/13/20 Group A Streptococcus Screen (JULISSA), Resulted Pending Allergies Coded Allergies: No Known Allergies (Unverified , 05/15/19) Home Medications Scheduled Allopurinol (Zyloprim) 300 Mg Tablet, 300 MG PO DAILY, (Reported) Atorvastatin Calcium (Atorvastatin Calcium) 20 Mg Tablet, 20 MG PO QHS, (Reported) Glucosa Catalan 2Kcl/Chondroitin Catalan (Glucosamine & Chondroitin Cap) 1 Each Capsule, 1 EACH PO BID, (Reported) Levothyroxine Sodium (Levothyroxine Sodium) 125 Mcg Tablet, 125 MCG PO QAM, (Reported) Metformin HCl (Metformin HCl) 1,000 Mg Tablet, 1,000 MG PO BID, (Reported) Metoprolol Tartrate (Metoprolol Tartrate) 50 Mg Tab, 50 MG PO BID, (Reported) Multivitamin,Therapeutic (Thera-Tabs) 1 Each Tablet, 1 TAB PO DAILY, (Reported) Scheduled PRN Acetaminophen (Acetaminophen) 500 Mg Tablet, 1,000 MG PO Q6H PRN for PAIN, (Reported) Ondansetron HCl (Ondansetron HCl) 8 Mg Tablet, 8 MG PO Q6H PRN for NAUSEA OR VOMITING, #30 BRENDAN ADAME MD Apr 13, 2020 18:13
[2020-04-13] MEDS ORDERED: DARBEPOETIN 200MCG/0.4ML *NON-DIALYSIS* SYRINGE (J0881 PER 1MCG) SQ ONE (21:00)
[2020-04-13] MEDS: ATORVASTATIN 20 MG TAB PO SCH (21:13)
[2020-04-14] MEDS: PIPERACILLIN/TAZOBACTAM SOD 4.5 GM in D5W MINI-BAG PLUS 50 ML IV SCH ×4 (01:00→20:35)
[2020-04-14] MEDS: NS 1,000 ML IV SCH ×2 (03:49→10:32)
[2020-04-14] MEDS: LEVOTHYROXINE 150MCG TABLET (0.15MG) PO SCH (05:58)
[2020-04-14 06:00] VITALS: BP 117/85
[2020-04-14 06:52] LABS: BASO % 1.9 % (0.0-1.0); EOS % 1.9 % (0.0-3.0); HEMATOCRIT 27.3 % (36.0-47.0); HEMOGLOBIN 9.4 g/dl (12.0-15.5); LYMPH # 0.3 10^3/uL (1.5-5.0); LYMPH % 57.4 % (24.0-44.0); MEAN CORPUSCULAR HEMOGLOBIN 32.9 pg (27.0-33.0); MEAN CORPUSCULAR HGB CONC 34.4 g/dl (32.0-36.5); MEAN CORPUSCULAR VOLUME 95.5 fl (80.0-96.0); MONO # 0.1 10^3/uL (0.0-0.8); MONO % 16.7 % (2.0-8.0); NEUTROPHILS % 20.2 % (36.0-66.0); RED BLOOD COUNT 2.86 10^6/uL (4.00-5.40)
[2020-04-14 06:56] LABS: WHITE BLOOD COUNT 0.5 10^3/uL (4.0-10.0)
[2020-04-14 06:57] LABS: NEUTROPHILS # 0.1 10^3/uL (1.5-8.5); PLATELET COUNT, AUTOMATED 16 10^3/uL (150-450)
[2020-04-14 07:06] LABS: CALCIUM LEVEL 7.6 MG/DL (8.5-10.1); CREATININE FOR GFR 1.42 MG/DL (0.55-1.30); GLOMERULAR FILTRATION RATE 41.4 (>51); POTASSIUM SERUM 3.4 MEQ/L (3.5-5.1)
[2020-04-14] MEDS: HumaLOG INSULIN (NovoLOG) PER UNIT SC SCH ×4 (07:30→20:37)
[2020-04-14 08:00] VITALS: BP 112/80
[2020-04-14] MEDS: LACTOBACILLUS ACIDOPHILUS CAP (BACID) PO SCH ×3 (08:52→18:42)
[2020-04-14] MEDS ORDERED: POTASSIUM CHLORIDE 10 MEQ SR TABLET PO ONE (09:30)
[2020-04-14] MEDS: allopurinoL 300 MG TAB PO SCH (09:36)
[2020-04-14] MEDS: MULTIVITAMINS/MINERALS THERAP 1 TAB PO SCH (09:37)
[2020-04-14] MEDS: METOPROLOL TART 50 MG TAB PO SCH ×2 (09:37→20:36)
[2020-04-14 09:38] LABS: CLOSTRIDIUM DIFFICILE PCR NEGATIVE (NEGATIVE)
[2020-04-14] MEDS: FILGRASTIM 480 MCG/0.8 ML SYRINGE (J1442) SC SCH (10:31)
[2020-04-14] MEDS: LOPERAMIDE 2 MG CAPLET PO PRN ×2 (12:21→20:35)
[2020-04-14] MEDS: SODIUM BICARBONATE 325 MG TAB PO SCH ×2 (12:22→20:35)
--- NOTE | 2020-04-14 13:36 | IPN ---
PROGRESS NOTE DATE: 04/14/2020 SUBJECTIVE: Patient is seen and examined at the bedside and chart has been reviewed. The patient has remained afebrile overnight. No complaints of chest pain, pressure, tightness, cough, abdominal pain, nausea, vomiting, dysuria, urgency, or frequency. Denies any chills. No other issues per nursing. The patient remains neutropenic with WBC of 0.5. OBJECTIVE: VITAL SIGNS: Temperature 97.3, pulse 116, respiratory rate 16, blood pressure 112/80, 99% on room air. GENERAL: The patient is awake, alert, and oriented to person, place, and time. She has some alopecia due to chemotherapy. She has no pallor. No use of respiratory accessory muscles lying on her left side. NECK: No JVD. No thyromegaly. HEENT: Moist mucous membranes. LUNGS: Clear to auscultation. No wheezing, rales, or rhonchi. HEART: S1, S2. Sinus tachycardia. ABDOMEN: Obese, soft, nontender, and nondistended. Positive bowel sounds. EXTREMITIES: No cyanosis or clubbing. LABORATORY DATA: White 0.5, hemoglobin 9.4, hematocrit 27, platelet count 16,000 with previous platelet count of 13,000. Sodium 140, potassium 3.4, chloride 110, bicarb 19, BUN 15, creatinine 1.42, glucose of 127. MICROBIOLOGY: Strep screen negative. IMAGING DATA: Chest x-ray 04/12/2020, no active disease. ASSESSMENT/PLAN: This is a 55-year-old female with history of nonsmall cell lung cancer with metastatic disease to the brain who presented to the emergency room with complaints of chest pain and was found to have acute kidney injury and pancytopenia secondary to chemotherapy. The patient had chemotherapy from March 31 to the April 02. Current active issues are: 1. Pancytopenia secondary to chemotherapy. The patient is receiving Neupogen. No signs of gastrointestinal (GI) bleed. No acute indication for platelet transfusion or RBC transfusion. Dr. Galo has been consulted a [facility] racing driver. The patient is on full supportive care and is currently on broad-spectrum antibiotics with IV Zosyn currently still on normal saline. 2. Acute kidney injury (ERIKA) most likely secondary to chemotherapy with neprhotoxicity on intravenous (IV) fluids. Check I and O and daily weight. 3. Metabolic acidosis secondary to renal failure. 4. Type 2 diabetes on a regular diet for now. 5. Hypothyroidism on Synthroid. 6. Deep vein thrombosis (DVT) in the upper extremity in 2017 off anticoagulation currently pancytopenic. DISPOSITION: AWAITING CLINICAL IMPROVEMENT 2-3MORE DAYS. MTDD
[2020-04-14 14:00] VITALS: BP 152/95
[2020-04-14 15:14] VITALS: BP 132/98
[2020-04-14] MEDS: ATORVASTATIN 20 MG TAB PO SCH (20:36)
[2020-04-14 22:00] VITALS: BP 109/71
[2020-04-15] MEDS: PIPERACILLIN/TAZOBACTAM SOD 4.5 GM in D5W MINI-BAG PLUS 50 ML IV SCH ×2 (02:06→08:37)
[2020-04-15] MEDS: LOPERAMIDE 2 MG CAPLET PO PRN ×3 (03:54→20:58)
[2020-04-15] MEDS: LEVOTHYROXINE 150MCG TABLET (0.15MG) PO SCH (05:36)
[2020-04-15 06:00] VITALS: BP 120/72
[2020-04-15 06:18] LABS: HEMATOCRIT 26.4 % (36.0-47.0); HEMOGLOBIN 9.1 g/dl (12.0-15.5); MEAN CORPUSCULAR HEMOGLOBIN 33.1 pg (27.0-33.0); MEAN CORPUSCULAR HGB CONC 34.5 g/dl (32.0-36.5); RED BLOOD COUNT 2.75 10^6/uL (4.00-5.40); WHITE BLOOD COUNT 1.1 10^3/uL (4.0-10.0)
[2020-04-15 06:22] LABS: PLATELET COUNT, AUTOMATED 18 10^3/uL (150-450)
[2020-04-15 06:35] LABS: ANISOCYTOSIS 1+; ATYPICAL LYMPH 3 % (0-5); EOSINOPHILS 2 % (0-3); LYMPHOCYTES 37 % (16-44); METAMYELOCYTES 2 % (0-0); MONOCYTES 4 % (0-5); MYELOCYTES 3 % (0-0); NEUTROPHILS 49 % (28-66); PLATELET ESTIMATE MARKED DECREASE (NORMAL); POIKILOCYTOSIS 1+; POLYCHROMASIA 1+
[2020-04-15 06:45] LABS: CALCIUM LEVEL 8.2 MG/DL (8.5-10.1); CREATININE FOR GFR 1.29 MG/DL (0.55-1.30); GLOMERULAR FILTRATION RATE 46.2 (>51); POTASSIUM SERUM 3.3 MEQ/L (3.5-5.1)
[2020-04-15] MEDS: HumaLOG INSULIN (NovoLOG) PER UNIT SC SCH ×4 (08:36→20:47)
[2020-04-15] MEDS: SODIUM BICARBONATE 325 MG TAB PO SCH ×2 (08:37→20:59)
[2020-04-15] MEDS: LACTOBACILLUS ACIDOPHILUS CAP (BACID) PO SCH ×3 (08:37→17:37)
[2020-04-15] MEDS: NS 1,000 ML IV SCH ×3 (08:37→22:41)
[2020-04-15] MEDS: METOPROLOL TART 50 MG TAB PO SCH ×2 (08:38→20:59)
[2020-04-15] MEDS: MULTIVITAMINS/MINERALS THERAP 1 TAB PO SCH (08:38)
[2020-04-15] MEDS: allopurinoL 300 MG TAB PO SCH (08:38)
[2020-04-15 10:34] LABS: BASO % 0.9 % (0.0-1.0); EOS % 0.9 % (0.0-3.0); LYMPH # 0.3 10^3/uL (1.5-5.0); LYMPH % 28.7 % (24.0-44.0); MONO # 0.2 10^3/uL (0.0-0.8); MONO % 13.9 % (2.0-8.0); NEUTROPHILS % 43.6 % (36.0-66.0)
[2020-04-15 10:36] LABS: NEUTROPHILS # 0.5 10^3/uL (1.5-8.5)
[2020-04-15] MEDS ORDERED: LevoFLOXacin 500 MG TABLET PO ONE (11:00)
[2020-04-15] MEDS: FILGRASTIM 480 MCG/0.8 ML SYRINGE (J1442) SC SCH (11:54)
[2020-04-15] MEDS: POTASSIUM CHLORIDE 10 MEQ SR TABLET PO SCH (11:54)
--- NOTE | 2020-04-15 12:40 | IPN ---
PROGRESS NOTE DATE: 04/15/2020 SUBJECTIVE: Patient was seen and examined at the bedside. Chart has been reviewed. According to nursing, she continues to have copious amounts of liquid stool. Clostridium (C) difficile is negative and gastrointestinal (GI) panel is negative. Patient has no nausea, vomiting, abdominal pain. No fever or chills overnight. ANC today is 539, still on Neupogen. PHYSICAL EXAMINATION: VITAL SIGNS: Temperature 98.5, pulse 94, respiratory rate 18, blood pressure 120/72, 98% on room air. GENERAL: Patient is awake, alert, oriented to person, place and time, answering questions appropriately. She is significant alopecia from chemotherapy, some slight pallor. No icterus, jaundice or cyanosis. Speaks in full sentences. Dry mucous membranes with chapped lips. No jugular venous distention (JVD) or thyromegaly. No cervical lymphadenopathy. LUNGS: Clear to auscultation. No wheezing, rales or rhonchi. HEART: S1, S2. Sinus rhythm. ABDOMEN: Soft, nontender, nondistended. Positive bowel sounds. EXTREMITIES: No cyanosis, clubbing or pitting edema. LABORATORY DATA: White count 1.1, hemoglobin 9.1, hematocrit 26, platelet count 18. Sodium 140, potassium 3.3, chloride 111, bicarbonate 20, BUN 8, creatinine 1.28, glucose 138. MICROBIOLOGY: Negative Streptococcus screen. ASSESSMENT AND PLAN: This is a 54-year-old female with history of non-small cell lung cancer and metastatic disease to the brain who presented to the emergency room (ER) with complaints of chest pain, found to have pancytopenia secondary to chemotherapy and acute kidney injury. Patient received chemotherapy March 31-2020. Patient was started on broad spectrum antibiotics and given Neupogen. Chest x-ray was negative for acute disease. Chest pain resolved. Troponins were negative times two sets. Renal failure improved on intravenous (IV) fluids with peak creatinine of 1.65 and current creatinine of 1.29. She had episodes of diarrhea with low potassium levels supplemented. Acute issues are: 1. Pancytopenia secondary to chemotherapy with bone marrow suppression. Patient's ANC today is 539. She is currently on Neupogen and broad spectrum antibiotics. Per Dr. Galo, patient can be changed to oral antibiotic if ANC is greater than 500. Therefore, her IV Zosyn has been discontinued. She has been given one dose of Levaquin 500 mg today and renally dosed at 250 daily tomorrow. 2. Acute kidney injury with metabolic acidosis secondary to persistent diarrhea with electrolyte abnormalities. Patient is on sodium bicarbonate 650 by mouth twice a day, IV fluids and loperamide. GI panel, according to nursing, has been negative. 3. Diarrhea secondary to chemotherapy. On Imodium, electrolyte replacement and IV fluids. 4. Hypertension. On metoprolol 50 mg by mouth twice a day. 5. Type 2 diabetes. On insulin with sliding scale and hypoglycemic protocol. 6. Non-small cell lung cancer with metastatic disease to the brain complicated by pancytopenia with bone marrow suppression secondary to chemotherapy. 7. Hypothyroidism. On Synthroid. 8. History of deep venous thrombosis (DVT). Off anticoagulation due to pancytopenia.
[2020-04-15 14:00] VITALS: BP 112/72
[2020-04-15] MEDS ORDERED: PROMETHAZINE INJ 25 MG/ML VIAL (J2550) IV ONE (16:45)
[2020-04-15] MEDS: ATORVASTATIN 20 MG TAB PO SCH (20:58)
[2020-04-15] MEDS ORDERED: PROMETHAZINE INJ 25 MG/ML VIAL (J2550) IV PRN (21:00)
[2020-04-15 22:00] VITALS: BP 130/80
[2020-04-16] MEDS: LEVOTHYROXINE 150MCG TABLET (0.15MG) PO SCH (05:41)
[2020-04-16] MEDS: LevoFLOXacin 250 MG TABLET PO SCH (05:41)
[2020-04-16 06:00] VITALS: BP 110/82
[2020-04-16 06:40] LABS: HEMATOCRIT 26.4 % (36.0-47.0); HEMOGLOBIN 8.8 g/dl (12.0-15.5); MEAN CORPUSCULAR HEMOGLOBIN 32.4 pg (27.0-33.0); MEAN CORPUSCULAR HGB CONC 33.3 g/dl (32.0-36.5); MEAN CORPUSCULAR VOLUME 97.1 fl (80.0-96.0); RED BLOOD COUNT 2.72 10^6/uL (4.00-5.40); WHITE BLOOD COUNT 2.5 10^3/uL (4.0-10.0)
[2020-04-16 06:41] LABS: PLATELET COUNT, AUTOMATED 19 10^3/uL (150-450)
[2020-04-16 07:07] LABS: CALCIUM LEVEL 7.3 MG/DL (8.5-10.1); CREATININE FOR GFR 1.15 MG/DL (0.55-1.30); GLOMERULAR FILTRATION RATE 52.8 (>51); POTASSIUM SERUM 3.5 MEQ/L (3.5-5.1)
[2020-04-16] MEDS: HumaLOG INSULIN (NovoLOG) PER UNIT SC SCH ×4 (07:30→20:33)
[2020-04-16 08:10] LABS: ANISOCYTOSIS 1+; ATYPICAL LYMPH 2 % (0-5); LYMPHOCYTES 14 % (16-44); METAMYELOCYTES 1 % (0-0); MONOCYTES 12 % (0-5); MYELOCYTES 1 % (0-0); NEUTROPHILS 68 % (28-66); PLATELET ESTIMATE MARKED DECREASE (NORMAL)
[2020-04-16 08:12] LABS: OVALOCYTES 1+
[2020-04-16 08:29] LABS: BASO % 1.2 % (0.0-1.0); EOS % 0.4 % (0.0-3.0); LYMPH % 16.9 % (24.0-44.0); MONO % 12.1 % (2.0-8.0); NEUTROPHILS % 61.3 % (36.0-66.0)
[2020-04-16 08:30] LABS: LYMPH # 0.4 10^3/uL (1.5-5.0); MONO # 0.3 10^3/uL (0.0-0.8); NEUTROPHILS # 1.5 10^3/uL (1.5-8.5)
[2020-04-16] MEDS ORDERED: LEVO250T12 PO (08:31)
[2020-04-16] MEDS ORDERED: LEVO150T7 PO (08:31)
[2020-04-16] MEDS ORDERED: FILG48VL SC (08:31)
[2020-04-16] MEDS: LACTOBACILLUS ACIDOPHILUS CAP (BACID) PO SCH ×3 (08:39→18:07)
[2020-04-16] MEDS: MULTIVITAMINS/MINERALS THERAP 1 TAB PO SCH (08:39)
[2020-04-16] MEDS: LOPERAMIDE 2 MG CAPLET PO PRN ×3 (08:39→18:07)
[2020-04-16] MEDS: SODIUM BICARBONATE 325 MG TAB PO SCH ×2 (08:39→20:43)
[2020-04-16] MEDS: allopurinoL 300 MG TAB PO SCH (08:39)
[2020-04-16] MEDS: POTASSIUM CHLORIDE 10 MEQ SR TABLET PO SCH (08:40)
[2020-04-16] MEDS: METOPROLOL TART 50 MG TAB PO SCH ×2 (08:40→20:47)
[2020-04-16] MEDS: FILGRASTIM 480 MCG/0.8 ML SYRINGE (J1442) SC SCH (12:06)
[2020-04-16] MEDS: NS 1,000 ML IV SCH (12:06)
[2020-04-16 14:00] VITALS: BP 141/78
[2020-04-16] MEDS: ATORVASTATIN 20 MG TAB PO SCH (20:43)
[2020-04-16 22:00] VITALS: BP 141/86
[2020-04-17] MEDS: NS 1,000 ML IV SCH ×2 (00:26→12:53)
[2020-04-17] MEDS: LEVOTHYROXINE 150MCG TABLET (0.15MG) PO SCH (05:54)
[2020-04-17] MEDS: LevoFLOXacin 250 MG TABLET PO SCH (05:55)
[2020-04-17 06:00] VITALS: BP 140/73
[2020-04-17 06:17] LABS: HEMOGLOBIN 9.1 g/dl (12.0-15.5); MEAN CORPUSCULAR HEMOGLOBIN 32.7 pg (27.0-33.0); MEAN CORPUSCULAR HGB CONC 33.7 g/dl (32.0-36.5); MEAN CORPUSCULAR VOLUME 97.1 fl (80.0-96.0); RED BLOOD COUNT 2.78 10^6/uL (4.00-5.40); WHITE BLOOD COUNT 5.3 10^3/uL (4.0-10.0)
[2020-04-17 06:25] LABS: CALCIUM LEVEL 7.4 MG/DL (8.5-10.1); CREATININE FOR GFR 1.09 MG/DL (0.55-1.30); GLOMERULAR FILTRATION RATE 56.1 (>51); POTASSIUM SERUM 3.7 MEQ/L (3.5-5.1)
[2020-04-17 06:29] LABS: PLATELET COUNT, AUTOMATED 21 10^3/uL (150-450)
[2020-04-17] MEDS ORDERED: BACITAB PO (07:15)
[2020-04-17] MEDS: HumaLOG INSULIN (NovoLOG) PER UNIT SC SCH ×4 (07:30→21:00)
[2020-04-17 07:31] LABS: LYMPHOCYTES 12 % (16-44); METAMYELOCYTES 1 % (0-0); MONOCYTES 5 % (0-5); MYELOCYTES 1 % (0-0); NEUTROPHILS 76 % (28-66); PLATELET ESTIMATE MARKED DECREASE (NORMAL); TOXIC GRANULATION 1+
[2020-04-17 07:32] LABS: ANISOCYTOSIS 1+
[2020-04-17] MEDS: METOPROLOL TART 50 MG TAB PO SCH ×2 (08:03→20:00)
[2020-04-17] MEDS: LOPERAMIDE 2 MG CAPLET PO PRN (08:03)
[2020-04-17] MEDS: LACTOBACILLUS ACIDOPHILUS CAP (BACID) PO SCH ×3 (08:03→17:50)
[2020-04-17] MEDS: POTASSIUM CHLORIDE 10 MEQ SR TABLET PO SCH (08:03)
[2020-04-17] MEDS: MULTIVITAMINS/MINERALS THERAP 1 TAB PO SCH (08:03)
[2020-04-17] MEDS: SODIUM BICARBONATE 325 MG TAB PO SCH ×3 (08:03→20:01)
[2020-04-17] MEDS: allopurinoL 300 MG TAB PO SCH (08:03)
[2020-04-17] MEDS: LOMOTIL 2.5MG/0.025MG TABLET PO SCH ×3 (11:41→20:00)
--- NOTE | 2020-04-17 13:40 | IPN ---
PROGRESS NOTE DATE: 04/17/2020 SUBJECTIVE: Patient has not had any fevers. No chills, nausea, vomiting, shortness of breath, palpitations. No other issues per nursing overnight. Patient continues to have a bowel movement after every meal, eight bowel movements yesterday, liquid stool. PHYSICAL EXAMINATION: VITAL SIGNS: Temperature 98.5, pulse 102, respiratory rate 18, blood pressure 140/73, 100% on room air. GENERAL: Patient has alopecia secondary to chemotherapy. No distress. Dry mucous membranes. No jugular venous distention (JVD) or thyromegaly. LUNGS: Clear to auscultation. No wheezing or rales. HEART: S1, S2. Sinus rhythm. ABDOMEN: Soft, nontender, nondistended. Positive bowel sounds. No rebound, guarding or hepatosplenomegaly. EXTREMITIES: No clubbing, cyanosis or any pitting edema LABORATORY DATA: White count 5.3, hemoglobin 9, hematocrit 37, platelet count 21,000. Sodium 143, potassium 3.7, chloride 114, bicarbonate 19, BUN 4, creatinine 1.09, glucose 82. ASSESSMENT AND PLAN: This is a 54-year-old female with a history of non-small cell lung cancer, metastatic lesion to the spine and brain, status post gamma knife surgery and radiation, undergoing chemotherapy, presented to the emergency room with complaints of chest pain, was found to be pancytopenic secondary to chemotherapy with bone marrow suppression and acute kidney injury. Workup for infection was negative. Patient was broadly covered with intravenous Zosyn initially. That has been changed to oral Levaquin after ANC increased to over 500. Current issues: 1. Bone marrow suppression with pancytopenia secondary to chemotherapy. Patient's Neupogen has been discontinued today. The patient has been afebrile. Normal white count. Had been on IV Zosyn previously. Now on oral Levaquin 250 mg daily and Bacid. 2. Chemotherapy induced diarrhea. Gastrointestinal (GI) panel was negative. She is continued on Lomotil. She continues to have metabolic acidosis due to GI loss, therefore, she has been given some bicarbonate. Acute kidney injury. Has resolved with IV fluid. She is encouraged to increase her dietary intake, which she is tolerating well. 3. Acute kidney injury. Resolved secondary to diarrhea. 4. Hypertension. Controlled. 5. Type 2 diabetes. On sliding scale hyperglycemic protocol. 6. Hypothyroidism. On Synthroid. 7. Non-small cell lung cancer. Metastatic disease to the brain complicated by pancytopenia due to bone marrow suppression secondary to chemotherapy, improving. No acute indication for red blood cell (RBC) or platelet transfusion. Patient may be discharged home in the morning if stable overnight. MTDD
[2020-04-17 14:00] VITALS: BP 128/81
[2020-04-17] MEDS: ATORVASTATIN 20 MG TAB PO SCH (20:01)
[2020-04-17 22:00] VITALS: BP 159/67
[2020-04-18] MEDS: NS 1,000 ML IV SCH (00:54)
[2020-04-18] MEDS: LEVOTHYROXINE 150MCG TABLET (0.15MG) PO SCH (05:45)
[2020-04-18] MEDS: LevoFLOXacin 250 MG TABLET PO SCH (05:46)
[2020-04-18 06:00] VITALS: BP 139/90
[2020-04-18] MEDS: HumaLOG INSULIN (NovoLOG) PER UNIT SC SCH (07:30)
[2020-04-18] MEDS: SODIUM BICARBONATE 325 MG TAB PO SCH (08:49)
[2020-04-18] MEDS: LOMOTIL 2.5MG/0.025MG TABLET PO SCH (08:49)
[2020-04-18] MEDS: MULTIVITAMINS/MINERALS THERAP 1 TAB PO SCH (08:50)
[2020-04-18] MEDS: POTASSIUM CHLORIDE 10 MEQ SR TABLET PO SCH (08:50)
[2020-04-18] MEDS: allopurinoL 300 MG TAB PO SCH (08:50)
[2020-04-18 08:51] VITALS: BP 139/98
[2020-04-18] MEDS: METOPROLOL TART 50 MG TAB PO SCH (08:51)
[2020-04-18] MEDS: LACTOBACILLUS ACIDOPHILUS CAP (BACID) PO SCH (08:51)
--- NOTE | 2020-04-18 10:21 | DS.PDOC ---
Discharge Summary General Date of Admission Apr 12, 2020 at 20:15 Date of Discharge 04/18/20 Discharge Summary [place] Bench: Dr. ADMAE medical oncologist DISCHARGE DIAGNOSES: 1. 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 Suspected spinal mets - following with oncology in [place] 3. Hypertension 4. Diabetes mellitus type 2 5. Hypothyroidism 6. Degenerative disc disease 7. DVT in upper extremity 04/2016 8. Chemotherapy-induced diarrhea. GI panel negative coronavirus. Negative 9. Acute kidney injury due to diarrhea 10. Acute metabolic acidosis due to diarrhea 11. Hypokalemia due to diarrhea Discharge medications: See below Discharge instructions: Primary care physician and medical oncology appointment within 5 days of hospital discharge Allergies: See below HOSPITAL COURSE: This is a 54-year-old female with a history of non-small cell lung cancer, metastatic lesion to the spine and brain, status post gamma knife surgery and radiation, undergoing chemotherapy, presented to the emergency room with complaints of chest pain, was found to be pancytopenic secondary to chemotherapy with bone marrow suppression and acute kidney injury. Workup for infection was negative. Patient was broadly covered with intravenous Zosyn initially. That has been changed to oral Levaquin after ANC increased to over 500. Bone marrow suppression with pancytopenia secondary to chemotherapy. Patient's Neupogen has been discontinued today. The patient has been afebrile. Normal white count. Had been on IV Zosyn previously. Now on oral Levaquin 250 mg daily and Bacid., Urine blood cultures are negative. Chest x-ray no acute pneumonia Coronavirus. 19. Negative Chemotherapy induced diarrhea. Gastrointestinal (GI) panel was negative. She is continued on Lomotil. She continues to have metabolic acidosis due to GI loss, therefore, she has been given some bicarbonate. Acute kidney injury. Has resolved with IV fluid. She is encouraged to increase her dietary intake, which she is tolerating well. Acute kidney injury. Resolved secondary to diarrhea., Status post IV fluids . Hypokalemia, repleted potassium due to diarrhea Metabolic acidosis due to diarrhea Given bicarbonate and IV fluids Hypertension. Controlled. Type 2 diabetes. On sliding scale hyperglycemic protocol. Hypothyroidism. On Synthroid. Non-small cell lung cancer. Metastatic disease to the brain complicated by pancytopenia due to bone marrow suppression secondary to chemotherapy, improving. No acute indication for red blood cell (RBC) or platelet transfusion. Discharge physical examination: . Vitals see below GENERAL: Patient has alopecia secondary to chemotherapy. No distress. Dry mucous membranes. No jugular venous distention (JVD) or thyromegaly. LUNGS: Clear to auscultation. No wheezing or rales. HEART: S1, S2. Sinus rhythm. ABDOMEN: Soft, nontender, nondistended. Positive bowel sounds. No rebound, guarding or hepatosplenomegaly. EXTREMITIES: No clubbing, cyanosis or any pitting edema DISCHARGE LABORATORY DATA/microbiology/imaging studies: See below Time spent on discharge: 30 minutes Vital Signs/I&Os Vital Signs Date Time Temp Pulse Resp B/P (MAP) Pulse Ox O2 Delivery O2 Flow Rate FiO2 04/18/20 08:51 109 139/98 04/18/20 06:00 98.6 20 100 04/17/20 14:00 Room Air I&O- Last 24 Hours up to 6 AM 04/18/20 06:00 Intake Total 3000 ml Output Total 2000 ml Balance 1000 ml Laboratory Data Labs 24H Laboratory Tests 2 04/17/20 11:13: Bedside Glucose (Misc Panel) 115H 04/17/20 16:36: Bedside Glucose (Misc Panel) 95 04/17/20 20:32: Bedside Glucose (Misc Panel) 114H FSBS Laboratory Tests Test 04/17/20 11:13 04/17/20 16:36 04/17/20 20:32 Range/Units Bedside Glucose (Misc Panel) 115 95 114 70-105 MG/DL Microbiology Microbiology 04/13/20 Group A Streptococcus Screen (JULISSA) - Final, Complete 04/13/20 Group A Streptococcus Screen (JULISSA) - Final, Complete Discharge Medications Scheduled Allopurinol (Zyloprim) 300 Mg Tablet, 300 MG PO DAILY, (Reported) Atorvastatin Calcium (Atorvastatin Calcium) 20 Mg Tablet, 20 MG PO QHS, (Reported) Glucosa Catalan 2Kcl/Chondroitin Catalan (Glucosamine & Chondroitin Cap) 1 Each Capsule, 1 EACH PO BID, (Reported) L.acidoph/L.bulg/B.bif/S.therm (Bacid Caplet) 1 Each Tablet, 1 TAB PO WMHS Levofloxacin (Levofloxacin) 250 Mg Tablet, 250 MG PO DAILY@06 Levothyroxine Sodium (Levothyroxine Sodium) 150 Mcg Tablet, 150 MCG PO DAILY@0600 Metformin HCl (Metformin HCl) 1,000 Mg Tablet, 1,000 MG PO BID, (Reported) Metoprolol Tartrate (Metoprolol Tartrate) 50 Mg Tab, 50 MG PO BID, (Reported) Multivitamin,Therapeutic (Thera-Tabs) 1 Each Tablet, 1 TAB PO DAILY, (Reported) Scheduled PRN Acetaminophen (Acetaminophen) 500 Mg Tablet, 1,000 MG PO Q6H PRN for PAIN, (Re ported) Ondansetron HCl (Ondansetron HCl) 8 Mg Tablet, 8 MG PO Q6H PRN for NAUSEA OR VOMITING Allergies Coded Allergies: No Known Allergies (Unverified , 05/15/19) BOONE GREENE MD Apr 18, 2020 10:17
--- NOTE | 2020-04-18 10:55 | IPN ---
PROGRESS NOTE DATE: 04/16/2020 SUBJECTIVE: Afebrile. No chills. Denies any cough, shortness of breath, nausea, vomiting, dysuria, urgency, or frequency. The patient has no bleeding gingival, bright right blood per rectum, melena, black tarry stools, hematemesis, or coffee-ground emesis. OBJECTIVE: VITAL SIGNS: Temperature 98.2, pulse 107, respiratory rate 18, blood pressure 112/78, 100% on room air. GENERAL: Awake, alert, and oriented x3. HEENT: Alopecia secondary to chemotherapy. Slight pallor. No icterus. No cyanosis or jaundice. No use of respiratory accessory muscles. NECK: No JVD. No thyromegaly or cervical lymphadenopathy. LUNGS: Diminished, but clear to auscultation with no wheezing or rales. HEART: S1, S2. Sinus tachycardia. ABDOMEN: Soft, nontender, and nondistended with positive bowel sounds. EXTREMITIES: No cyanosis or clubbing. LABORATORY DATA: White count 2.5, hemoglobin 8.8, hematocrit 26, platelet count 19,000. Previous hemoglobin was 9.1, hematocrit 26.4, platelet count 18,000 yesterday and 19,000 today. Sodium 143, potassium 3.5, chloride 114, bicarb 19, BUN 5, creatinine 1.15, glucose 112. ASSESSMENT AND PLAN: This is a 54-year-old female with history of nonsmall cell lung cancer with metastatic lesions to the spine and brain status post Gamma Knife radiation and undergoing chemotherapy, who presents with pancytopenia secondary to chemotherapy with bone marrow suppression and acute kidney injury. The patient has developed diarrhea during this admission. Gastrointestinal (GI) panel was negative. Not on a bowel regimen. 1. Pancytopenia secondary to chemotherapy with bone marrow suppression. ANC today is 1750 status post Neupogen. Was on broad-spectrum IV Zosyn discontinued and currently on Levaquin renally dosed at 250 daily. 2. Acute kidney injury, resolved. 3. Metabolic acidosis on sodium bicarbonate drip due to diarrhea. 4. Diarrhea secondary to chemotherapy on Imodium, electrolyte replacement, and intravenous fluids. GI panel negative. Not on bowel regimen. 5. Hypertension on metoprolol 50 b.i.d. 6. Type 2 diabetes on sliding scale and hypoglycemic protocol. 7. Nonsmall lung cancer with metastatic disease to the brain complicated by pancytopenia with bone marrow suppression secondary to chemotherapy. Outpatient follow-up, her planned chemotherapy needs to be rescheduled due to pancytopenia. 8. Hypothyroidism on Synthroid. 9. History of deep vein thrombosis (DVT) off anticoagulation due to thrombocytopenia with platelet count of 19,000, but no signs of bleeding. The patient may be discharged over the weekend either Sunday or Sunday pending physical therapy and improvement in her blood work. MTDD
== END 2020-04-18 09:35 | disposition home or self-care (01) | DRG 660 ==
LOC: M ED 15:01 → M ED INP 20:15 → M MSPAV 22:20
PROVIDERS: ADMIT Internal Medicine; ATTEND General Practice
PROC: 30233N1 Transfusion of Nonautologous Red Blood Cells into Peripheral Vein, Percutaneous Approach (ICD-10-PCS; principal; 2020-04-13)
DX: D61.810 Antineoplastic chemotherapy induced pancytopenia (principal); N17.9 Acute kidney failure, unspecified; C79.31 Secondary malignant neoplasm of brain; C79.51 Secondary malignant neoplasm of bone; E87.2 Acidosis; D70.9 Neutropenia, unspecified; D69.6 Thrombocytopenia, unspecified; C34.90 Malignant neoplasm of unspecified part of unspecified bronchus or lung; I10 Essential (primary) hypertension; E11.9 Type 2 diabetes mellitus without complications; E03.9 Hypothyroidism, unspecified; R19.7 Diarrhea, unspecified; E87.6 Hypokalemia; Z86.718 Personal history of other venous thrombosis and embolism; Z79.899 Other long term (current) drug therapy; Z87.891 Personal history of nicotine dependence

== ENCOUNTER 2020-05-17 17:08 | Inpatient (IN) | payer OTHER ==
[~2020-05-17] VITALS: Ht 157.5 cm; Wt 65.5 kg
[2020-05-17] MEDS: ATORVASTATIN 20 MG TAB PO SCH (05:13)
[~2020-05-17 17:08] MED LIST changes: +ATOR1TAB21 PO; +BACITAB PO; +FILG48VL SC; +LEVO125T4 PO; +LEVO150T7 PO; +LEVO250T12 PO; +ZYLO300T6 PO
[2020-05-17] MEDS ORDERED: NS 1,000 ML IV SCH (18:19)
[2020-05-17] MEDS ORDERED: MORPHINE 4 MG/ML 1ML VIAL/SYRINGE (J2270) IV ONE (18:20)
--- NOTE | 2020-05-17 18:24 | REP ---
INDICATION: DYSPNEA/COUGH. COMPARISON: 04/12/2020. TECHNIQUE: SINGLE PORTABLE AP VIEW OF THE CHEST WAS PERFORMED. FINDINGS: The patient is rotated toward the right. I see no acute infiltrate. Heart and mediastinum appear somewhat magnified. IMPRESSION: NO ACUTE PULMONARY DISEASE. <Electronically signed by Carlitos Barnhart > 05/17/20 [id number]
[2020-05-17 18:29] LABS: HEMATOCRIT 29.4 % (36.0-47.0); HEMOGLOBIN 9.8 g/dl (12.0-15.5); MEAN CORPUSCULAR HEMOGLOBIN 34.8 pg (27.0-33.0); MEAN CORPUSCULAR HGB CONC 33.3 g/dl (32.0-36.5); MEAN CORPUSCULAR VOLUME 104.3 fl (80.0-96.0); PLATELET COUNT, AUTOMATED 333 10^3/uL (150-450); RED BLOOD COUNT 2.82 10^6/uL (4.00-5.40); WHITE BLOOD COUNT 16.7 10^3/uL (4.0-10.0)
[2020-05-17 18:35] LABS: ALBUMIN 2.8 GM/DL (3.2-5.2); ALT/SGPT 43 U/L (12-78); BILIRUBIN,DIRECT 0.3 MG/DL (0.0-0.2); BILIRUBIN,TOTAL 0.6 MG/DL (0.2-1.0); LIPASE 100 U/L (73-393); TOTAL PROTEIN 6.2 GM/DL (6.4-8.2)
[2020-05-17 18:47] LABS: LYMPHOCYTES 4 % (16-44); NEUTROPHILS 94 % (28-66)
[2020-05-17 18:50] LABS: PLATELET ESTIMATE NORMAL (NORMAL); TOXIC VACUOLATION 1+
[2020-05-17 18:51] LABS: ANISOCYTOSIS 1+
[2020-05-17] MEDS ORDERED: NS 500 ML IV ONE (18:55)
[2020-05-17 19:20] LABS: BLOOD UREA NITROGEN 31 MG/DL (7-18); CALCIUM LEVEL 9.8 MG/DL (8.5-10.1); CARBON DIOXIDE LEVEL 24 MEQ/L (21-32); CHLORIDE LEVEL 100 MEQ/L (98-107); CK-MB VALUE MASS < 1.0 NG/ML (<3.6); CPK CREATINE PHOSPHOKINASE 88 U/L (26-192); CREATININE FOR GFR 1.44 MG/DL (0.55-1.30); GLOMERULAR FILTRATION RATE 40.5 (>51); GLUCOSE, FASTING 129 MG/DL (70-100); MB/CK RELATIVE INDEX 1.14 (< OR =4); NT-PRO BNP 2015 PG/ML (<125); SODIUM LEVEL 134 MEQ/L (136-145); THYROXINE (T4) 12.5 UG/DL (4.5-12.0); TROPONIN I < 0.02 NG/ML (< 0.10)
[2020-05-17] MEDS: GASTROGRAFIN SOLUTION 30ML PO SCH ×2 (19:36→20:00)
[2020-05-17] MEDS ORDERED: ISOVUE-370 76% 100ML VIAL As Ordered ONE (20:36)
--- NOTE | 2020-05-17 22:08 | REPVR ---
PROCEDURE INFORMATION: Exam: CT Abdomen And Pelvis With Contrast Exam date and time: 05/17/2020 8:47 PM Age: 55 years old Clinical indication: Abdominal pain; Generalized; Additional info: Gen abd pain TECHNIQUE: Imaging protocol: Computed tomography of the abdomen and pelvis with contrast. Radiation optimization: All CT scans at this facility use at least one of these dose optimization techniques: automated exposure control; mA and/or kV adjustment per patient size (includes targeted exams where dose is matched to clinical indication); or iterative reconstruction. Contrast material: ISOVUE 370; Contrast volume: 100 ml; Contrast route: INTRAVENOUS (IV); COMPARISON: CT ABD PELVIS W/O CONTRAST 01/07/2020 6:35 AM FINDINGS: Lungs: Minimal atelectasis at the right lung base. Pleural spaces: Small right pleural effusion. Heart: Small pericardial effusion. Liver: Innumerable hypodensities in the liver likely representing metastatic disease. Gallbladder and bile ducts: Normal. No calcified stones. No ductal dilation. Pancreas: Normal. No ductal dilation. Spleen: Normal. No splenomegaly. Adrenal glands: Left adrenal nodule measuring 2 cm. Kidneys and ureters: Normal. No hydronephrosis. Stomach and bowel: Unremarkable. No obstruction. No mucosal thickening. Appendix: No evidence of appendicitis. Intraperitoneal space: Small amount of fluid in the pelvis. Vasculature: See "Lymph nodes" finding. Lymph nodes: There is mass/cluster of lymph nodes in the mediastinum with mass effect on the visualized right main pulmonary artery. Possible pulmonary embolism. CTA chest is recommended for complete evaluation. Urinary bladder: Unremarkable as visualized. Reproductive: Unremarkable as visualized. Bones/joints: Unremarkable. No acute fracture. Sclerotic and lytic lesion in the L1 vertebra, likely metastatic. Small sclerotic lesion in the T9 and L4 vertebra. Soft tissues: Umbilical hernia containing fat. There is a supraumbilical hernia containing fat. IMPRESSION: Extensive metastatic disease in the liver. Possible pulmonary embolism versus cluster of lymph nodes/mass in the visualized mediastinum. CTA chest is recommended for evaluation. Small pericardial effusion. Small right pleural effusion. Metastatic disease in the vertebra. Electronically signed by: Efren Stevens On 05/17/2020 22:08:56 PM
[2020-05-17] MEDS ORDERED: MORPHINE 2 MG/ML 1ML VIAL (J2270) IV ONE (23:15)
[2020-05-17] MEDS ORDERED: ONDANSETRON 4MG/2ML VIAL As Ordered ONE (23:45)
[2020-05-17] MEDS ORDERED: MAALOX 30 ML SUSP *UDC PO PRN (23:45)
[2020-05-17] MEDS ORDERED: MOM 30ML SUSPENSION UDC PO PRN (23:45)
[2020-05-17] MEDS ORDERED: ACETAMINOPHEN TAB 650MG DOSE (2X325MG) PO PRN (23:45)
[2020-05-17] MEDS ORDERED: ONDANSETRON 4MG/2ML VIAL IV ONE (23:50)
[2020-05-18] VITALS (7 sets, daily range): BP systolic 100–105; BP diastolic 52–76
--- NOTE | 2020-05-18 00:01 | HPEPDOC ---
[facility] Medical History & Physical Date of Admission May 17, 2020 Date of Service: May 17, 2020 Attending Physician: KAYLEE RODRIGUEZ MD History and Physical CHIEF COMPLAINT: [55 year old female complaining of abdominal pain x1 day] HISTORY OF PRESENT ILLNESS: [This is a 55 year old female with an unfortunate pmh of small cell lung carcinoma with metastasis to multiple locations including brain, diabetes, and hypertension. Patient presents to the ER with acute onset severe upper abdominal pain that is constant and nature and radiates down either side of her abdomen. Patient states that her pain is severe to the point she feels as though she is having difficulty taking deep breaths and catching her breath. Patient has experienced two episodes of non-bloody emesis while in the ER as well. Patient has never experienced anything like this before. Patient denies any precipitating events. Patient denies associated diarrhea, dark stools, chest pains, palpitations, dizziness, lightheadedness, syncope. ] PAST MEDICAL HISTORY: 1. [See HPI PAST SURGICAL HISTORY: 1. [Pericardiocentesis with pericardial window 2019]. 2. [Gamma knife for brain mets]. 3. [Lung tissue biopsy]. ALLERGIES: Please see below. REVIEW OF SYSTEMS: CONSTITUTIONAL: [Denies fever, chills]. HEENT: [Denies uri sx]. CARDIOVASCULAR: [See hpi]. RESPIRATORY: [See hpi]. GASTROINTESTINAL: [See hpi]. GENITOURINARY: [Denies dysuria]. SKIN: [Denies rash]. MUSCULOSKELETAL: [Denies joint pain]. NEUROLOGICAL: [See hpi]. HOME MEDICATIONS: Please see below. PHYSICAL EXAMINATION: VITAL SIGNS: see below GENERAL APPEARANCE: [This is a chronically ill appearing 55 year old female. She is in moderate distress due to pain]. HEENT: [No mass or lesion. EOMI. No scleral icterus. Nares patent. Oral mucosa moist with no erythema]. CARDIOVASCULAR: [Tachy rate, normal rhythm. No murmurs, rubs or gallops]. LUNGS: [Diffuse wheezing]. ABDOMEN: [Soft, non-distended. Tender throughout]. MUSCULOSKELETAL: [No joint deformity]. EXTREMITIES: [No peripheral edema. no cyanosis or clubbing]. NEUROLOGICAL: [A+Ox3. Clear speech. No focal deficits]. PSYCHIATRIC: [Mood and affect appear appropriate.]. LABORATORY DATA: See below. IMAGING: [CXR: FINDINGS: The patient is rotated toward the right. I see no acute infiltrate. Heart and mediastinum appear somewhat magnified. IMPRESSION: NO ACUTE PULMONARY DISEASE. CT Abd/Pelvis: FINDINGS: Lungs: Minimal atelectasis at the right lung base. Pleural spaces: Small right pleural effusion. Heart: Small pericardial effusion. Liver: Innumerable hypodensities in the liver likely representing metastatic disease. Gallbladder and bile ducts: Normal. No calcified stones. No ductal dilation. Pancreas: Normal. No ductal dilation. Spleen: Normal. No splenomegaly. Adrenal glands: Left adrenal nodule measuring 2 cm. Kidneys and ureters: Normal. No hydronephrosis. Stomach and bowel: Unremarkable. No obstruction. No mucosal thickening. Appendix: No evidence of appendicitis. Intraperitoneal space: Small amount of fluid in the pelvis. Vasculature: See "Lymph nodes" finding. Lymph nodes: There is mass/cluster of lymph nodes in the mediastinum with mass effect on the visualized right main pulmonary artery. Possible pulmonary embolism. CTA chest is recommended for complete evaluation. Urinary bladder: Unremarkable as visualized. Reproductive: Unremarkable as visualized. Bones/joints: Unremarkable. No acute fracture. Sclerotic and lytic lesion in the L1 vertebra, likely metastatic. Small sclerotic lesion in the T9 and L4 vertebra. Soft tissues: Umbilical hernia containing fat. There is a supraumbilical hernia containing fat. IMPRESSION: Extensive metastatic disease in the liver. Possible pulmonary embolism versus cluster of lymph nodes/mass in the visualized mediastinum. CTA chest is recommended for evaluation. Small pericardial effusion. Small right pleural effusion. Metastatic disease in the vertebra.] MICROBIOLOGY: Please see below. ASSESSMENT/PLAN: 1. [Severe abd pain - Etiology currently unclear. Metastatic disease vs. ulcer vs. possible PE - Radiology recommend f/u ct abd/pelvis with cta of chest for evaluation of possible PE. unable to perform this overnight due to being unable to give another dose of iv contrast. - Stool occult blood ordered - dilaudid for pain, zofran for nausea/vomiting - iv protonix 2. Hypotension - patient was hypotensive on arrival to ED, this has now resolved 3. SIRS - patient had hypotension, tachycardia and tachypnea upon arrival - cannot rule out possibility of occult infection in this patient - UA, blood cultures ordered 4. Macrocytic anemia - Patient's current hb is 9. We will trend. - Since anemia is macrocytic I am more concerned for a b vitamin deficiency or liver dysfunction rather than a blood loss or iron deficiency anemia from a gi bleed - b vitamin studies ordered - iron studies ordered - can follow liver functions 5. ERIKA - Likely pre-renal due to poor oral intake. Patient also has some underlying ckd due to her diabetes - i believe that erika is responsible for many of her electrolyte abnormalities, including her elevated bnp - will be giving IVF - urinary electrolytes ordered - renal us ordered 6. Metastatic disease - discovered liver nodules on patient's most recent ct. could possibly be more mets. - hepatitis panel ordered - patient follows with oncology 7. DM - patient only on metformin at home. holding for now 8. DVT prophylaxis - At this time, i am more concerned for patient developing a thrombus due to her active cancer and history of dvt than i am at her smaller possibility of a gi bleed. I am ordering heparin for prophylaxis and will leave this decision to the discretion of day team. - teds and sequentials]. Vital Signs Vital Signs Date Time Temp Pulse Resp B/P (MAP) Pulse Ox O2 Delivery O2 Flow Rate FiO2 05/17/20 23:31 88 18 128/82 99 Room Air 05/17/20 17:09 97.6 Laboratory Data Labs 24H Laboratory Tests 2 05/17/20 17:54: Lactic Acid Level 1.6 05/17/20 17:57: POC Glucose (Misc Panel) 126H, POC Sodium (Misc Panel) 132L, POC Potassium (Misc Panel) 3.9, POC Chloride (Misc Panel) 98, POC Total CO2 (Misc Panel) 24.0, POC Blood Urea Nitrogen (Misc Panel 26, POC Ionized Calcium (Misc Panel) 5.1, POC Creatinine (Misc Panel) 1.5H, POC Hematocrit (Misc Panel) 31.0L 05/17/20 17:58: Neutrophils (%) (Auto) , Nucleated Red Blood Cells % (auto) 0.0, Neutrophils 94H, Band Neutrophils 2, Lymphocytes (Manual) 4L, Anisocytosis 1+, Macrocytosis 2+, Toxic Vacuolation 1+, Platelet Estimate NORMAL, Anion Gap 10, Glomerular Filtration Rate 40.5L, Calcium Level 9.8, Total Bilirubin 0.6, Direct Bilirubin 0.3H, Aspartate Amino Transf (AST/SGOT) 102H, Alanine Aminotransferase (ALT/SGPT) 43, Alkaline Phosphatase 184H, Total Creatine Kinase 88, Creatine Kinase MB < 1.0, Creatine Kinase MB Relative Index 1.14, Troponin I < 0.02, XE-Tiq-[id number]-Type Natriuretic Peptide 2015H, Total Protein 6.2L, Albumin 2.8L, Albumin/Globulin Ratio 0.8L, Lipase 100, Thyroid Stimulating Hormone (TSH) 15.400H, Thyroxine (T4) 12.5H CBC/BMP Laboratory Tests 05/17/20 17:58 Home Medications Scheduled Allopurinol (Zyloprim) 300 Mg Tablet, 300 MG PO DAILY Atorvastatin Calcium (Atorvastatin Calcium) 20 Mg Tablet, 20 MG PO QHS Gluc Catalan/Chondro Catalan A/Vit C/Mn (Glucosamine Chondroitin Tab) 1 Each Tablet, 1 TAB PO BID Levothyroxine Sodium (Synthroid) 150 Mcg Tablet, 150 MCG PO DAILY Memantine HCl (Memantine HCl) 10 Mg Tablet, 10 MG PO BID Metformin HCl (Metformin HCl) 1,000 Mg Tablet, 1,000 MG PO BID Metoprolol Tartrate (Metoprolol Tartrate) 50 Mg Tab, 50 MG PO BID Multivitamin,Therapeutic (Thera-Tabs) 1 Each Tablet, 1 TAB PO DAILY Scheduled PRN Albuterol Sulfate (Proair Hfa) 8.5 Gm Hfa.aer.ad, 2 PUFF INH QID PRN for SHORTNESS OF BREATH Ibuprofen (Ibuprofen) 200 Mg Tablet, 200 MG PO Q6H PRN for PAIN Ondansetron HCl (Ondansetron HCl) 8 Mg Tablet, 8 MG PO Q6H PRN for NAUSEA OR VOMITING Miscellaneous Medications [Patient Comment] MED REC COMPLETED VIA EXTERNAL MED HISTORY AND PHONE CALL WITH SPOUSE Allergies Coded Allergies: acetaminophen (Verified Allergy, Unknown, PATIENT HAS LIVER ISSUES, 05/18/20) A-FIB/CHADSVASC A-FIB History Current/History of A-Fib/PAF?: No Attending Note Attending Note Time of service 1130pm Ms. Alex is a 55 yr old F w a hx of SCLC w mets to the brain, spine and possibly liver, HTN, DM2, hypothyroidism, DVT, DJD & hx of pericardial effusion who presented w c/o abdominal pain. She will be admitted for evaluation of abdominal pain of unclear cause, ERIKA & SIRS. - f/u UA & blood cx Rest per WALTER Malcolm H&P KATHY BERKOWITZ May 18, 2020 00:01 KAYLEE RODRIGUEZ MD May 18, 2020 06:50
[2020-05-18] MEDS ORDERED: PROAAER10 INH (00:16)
[2020-05-18] MEDS ORDERED: PATIENT COMMENT (00:16)
[2020-05-18] MEDS ORDERED: MEMA10TA19 PO (00:16)
[2020-05-18] MEDS ORDERED: SYNT150T PO (00:16)
[2020-05-18] MEDS ORDERED: GLUCTAB6 PO (00:16)
[2020-05-18] MEDS ORDERED: IBUP-1720 PO (00:16)
[2020-05-18 00:58] LABS: RSV AMPLIFICATION NEGATIVE (NEGATIVE)
[2020-05-18] MEDS ORDERED: ONDANSETRON 4MG/2ML VIAL IV PRN (02:00)
[2020-05-18] MEDS: SENNA 8.6 MG TAB (SENOKOT) PO SCH ×4 (02:46→22:51)
[2020-05-18] MEDS: HYDROMORPHONE HCL 0.5 MG/ 0.5 ML SYRINGE (J1170 PER 1) IV PRN ×4 (02:46→13:03)
[2020-05-18] MEDS: DOCUSATE SODIUM 100MG CAPSULE PO SCH ×3 (02:47→22:51)
[2020-05-18] MEDS ORDERED: IBUPROFEN 200MG TAB PO PRN (04:00)
[2020-05-18] MEDS ORDERED: ALBUTEROL 90 MCG/ACT 8GM HFA INHALER INH PRN (04:00)
--- NOTE | 2020-05-18 05:14 | ECGEPIP ---
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
[2020-05-18 05:30] LABS: ALBUMIN 2.4 GM/DL (3.2-5.2); ALT/SGPT 33 U/L (12-78); BILIRUBIN,TOTAL 0.3 MG/DL (0.2-1.0); BLOOD UREA NITROGEN 36 MG/DL (7-18); CALCIUM LEVEL 8.4 MG/DL (8.5-10.1); CARBON DIOXIDE LEVEL 26 MEQ/L (21-32); CHLORIDE LEVEL 99 MEQ/L (98-107); CREATININE FOR GFR 1.77 MG/DL (0.55-1.30); FERRITIN 1253 NG/ML (8-252); GLOMERULAR FILTRATION RATE 31.9 (>51); GLUCOSE, FASTING 153 MG/DL (70-100); IRON (FE) 62 UG/DL (50-170); MAGNESIUM LEVEL 1.5 MG/DL (1.8-2.4); PERCENT SATURATION 39.5 % (13.2-45.0); POTASSIUM SERUM 4.3 MEQ/L (3.5-5.1); SODIUM LEVEL 133 MEQ/L (136-145); TOTAL IRON BINDING CAPACITY 157 UG/DL (250-450); TOTAL PROTEIN 5.2 GM/DL (6.4-8.2)
[2020-05-18] MEDS ORDERED: LEVOTHYROXINE 150MCG TABLET (0.15MG) PO SCH (06:00)
[2020-05-18 06:25] LABS: ABG BASE EXCESS -1.3 (-2.0-2.0); ABG HCO3 22.4 MEQ/L (22.0-26.0); ABG O2 SATURATION 99.7 % (95.0-99.0); ABG PARTIAL PRESSURE CO2 33.5 mmHg (35.0-45.0); ABG STANDARD HCO3 23.4 MEQ/L (22.0-26.0); ABG TOTAL CO2 23.4 MEQ/L (22.0-29.0); ABG pH (ARTERIAL) 7.443 UNITS (7.350-7.450)
--- NOTE | 2020-05-18 07:25 | REPVR ---
PROCEDURE INFORMATION: Exam: US Retroperitoneal Limited, Kidneys Exam date and time: 05/18/2020 6:53 AM Age: 55 years old Clinical indication: Abnormal findings; Abnormal lab test; Other: Trent TECHNIQUE: Imaging protocol: Real-time ultrasound of the retroperitoneum with image documentation. Examination was focused on the kidneys. COMPARISON: RENAL US 03/22/2020 9:33 AM FINDINGS: Right kidney: The right kidney measures 9.5 x 4.4 x 4.6 cm. Similar appearing echotexture. There is no hydronephrosis or demonstrated renal stone, cyst or mass. Left kidney: The left kidney measures 9.5 x 5.2 x 4.6 cm. Similar appearing echotexture. There is no hydronephrosis or demonstrated renal stone, cyst or mass. Bladder: The urinary bladder was decompressed and not visualized. IMPRESSION: Stable sonographic appearance of the kidneys as compared with 03/22/20, without demonstrated abnormality. Electronically signed by: Corey Frederick On 05/18/2020 07:25:46 AM
[2020-05-18] MEDS ORDERED: MAG SULF 1GM/100ML (MAG RUN) 1 GM in IV 1 EA IV ONE (08:20)
[2020-05-18 08:38] LABS: HEMATOCRIT 23.4 % (36.0-47.0); HEMOGLOBIN 7.9 g/dl (12.0-15.5); MEAN CORPUSCULAR HEMOGLOBIN 35.1 pg (27.0-33.0); MEAN CORPUSCULAR HGB CONC 33.8 g/dl (32.0-36.5); PLATELET COUNT, AUTOMATED 194 10^3/uL (150-450); RED BLOOD COUNT 2.25 10^6/uL (4.00-5.40); WHITE BLOOD COUNT 10.6 10^3/uL (4.0-10.0)
[2020-05-18] MEDS ORDERED: allopurinoL 300 MG TAB PO SCH (09:00)
[2020-05-18] MEDS: MIRALAX *UNIT DOSE* 17GM PACKET PO SCH (09:00)
[2020-05-18] MEDS: MEMANTINE 5MG TABLET (NAMENDA) PO SCH ×2 (09:00→22:52)
[2020-05-18] MEDS ORDERED: MULTIVITAMINS/MINERALS THERAP 1 TAB PO SCH (09:00)
[2020-05-18] MEDS ORDERED: METOPROLOL TART 50 MG TAB PO SCH (09:00)
[2020-05-18 09:09] LABS: ALBUMIN 2.2 GM/DL (3.2-5.2); BILIRUBIN,TOTAL 0.3 MG/DL (0.2-1.0); CALCIUM LEVEL 8.1 MG/DL (8.5-10.1); CREATININE FOR GFR 1.75 MG/DL (0.55-1.30); GLOMERULAR FILTRATION RATE 32.4 (>51); POTASSIUM SERUM 4.2 MEQ/L (3.5-5.1); TOTAL PROTEIN 5.1 GM/DL (6.4-8.2)
[2020-05-18] MEDS: HEPARIN SOD (PORCINE) 5000UNITS/ML 1ML VIAL/SYRINGE SC SCH ×2 (09:46→22:52)
[2020-05-18 10:15] LABS: VITAMIN B12 LEVEL 879 PG/ML
[2020-05-18 10:16] LABS: FOLATE > 24.0 NG/ML
[2020-05-18 10:59] LABS: HEPATITIS A ANTIBODY IGM NEGATIVE (NEGATIVE); HEPATITIS B CORE ANTIBODY IGM NEGATIVE (NEGATIVE); HEPATITIS B SURFACE ANTIGEN NEGATIVE (NEGATIVE); HEPATITIS C VIRUS ABY INDEX < 0.0 INDEX (<0.8)
[2020-05-18] MEDS ORDERED: MAGNESIUM CITRATE 300 ML BTL PO ONE ×2 (11:35→20:40)
[2020-05-18] MEDS ORDERED: LACTULOSE 20 GM/30 ML SYRUP UD PO PRN (11:45)
[2020-05-18] MEDS ORDERED: GLUCOSE 4GM CHEW TABLET PO PRN (12:00)
[2020-05-18] MEDS ORDERED: GLUCAGON INJ 1MG VIAL SC PRN (12:00)
[2020-05-18] MEDS ORDERED: DEXTROSE 50% 50 ML SYRINGE IV PRN (12:00)
[2020-05-18] MEDS: NS 1,000 ML IV SCH (12:03)
[2020-05-18] MEDS: HumaLOG INSULIN (NovoLOG) PER UNIT SC SCH ×2 (12:31→19:00)
[2020-05-18] MEDS ORDERED: HYDROMORPHONE HCL 0.5 MG/ 0.5 ML SYRINGE (J1170 PER 1) IV PRN (15:05)
--- NOTE | 2020-05-18 15:44 | IPNPDOC ---
Date Seen The patient was seen on 05/18/20. Progress Note SUBJECTIVE: Severe abd pain, discussed findings with Dr. Castro who suggested aggressive bowel regimen with increased stool. She does have existing hernia; however, per surgery, does not look incarcerated or needing surgical intervention at this time. Tender to touch in epigastric area, HR increased with increased pain. D/mindy dilaudid and starting morphine PRN instead to see if does well with this. If not improvement with bowel regimen/defecation, will officially consult surgery to come see. OBJECTIVE: PHYSICAL EXAMINATION: VITAL SIGNS: see below GENERAL APPEARANCE: Appears in distress, uncomfortable. AAOx 3 HEENT: AT/NC, alopecia Neck: symmetrical, no JVD CARDIOVASCULAR: Tachycardic, sinus rhythm. No murmurs, rubs, gallops LUNGS: decreased breath sounds b/l , no wheezing, rhonchi or rales ABDOMEN: Distended epigastric protrusion/hernia, tender to touch. Tenderness in b/l upper abd quadrants MUSCULOSKELETAL: No joint deformity EXTREMITIES: No peripheral edema. no cyanosis or clubbing NEUROLOGICAL: CN 2-12 intact, Clear speech. No focal deficits PSYCHIATRIC: Mood and affect appear appropriate. LABORATORY DATA: See below. MICROBIOLOGY: BCx x 2 sets pending IMAGING: Renal US: Stable sonographic appearance of the kidneys as compared with 03/22/20, without demonstrated abnormality. CXR: No acute disease CT Abd/Pelvis: Extensive metastatic disease in the liver. Possible pulmonary embolism versus cluster of lymph nodes/mass in the visualized mediastinum. CTA chest is recommended for evaluation. Small pericardial effusion. Small right pleural effusion. Metastatic disease in the vertebra. Umbilical hernia containing fat. There is a supraumbilical hernia containing fat. Echocadiogram 2020: EF 60-65% Normal global left ventricular systolic function. There are some features of grade 1 left ventricular diastolic dysfunction manifested by abnormal relaxation. Large pericardial effusion that may be related to malignancy with some early echocardiographic evidence of cardiac tamponade. It was reported that the patient was taken to the OR for pericardial window and biopsy. She was found to have on CT angio a large pericardial effusion with a mediastinal mass. MICROBIOLOGY: Please see below. 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 PLAN: Severe abdominal pain possibly 2/2 to hernia vs. metastatic liver disease vs. constipation? Also cannot r/o ulcer -Severe pain, tachycardia, worsened with movement, tender to touch over area of hernia per patient -CT abd/pelvis above -LA wnl, WBC improving. -Discussed case with surgery, Dr. Castro who recommended aggressive bowel regimen as she has a lot of stool possibly pushing up on upper abdomen causing discomfort -C/w aggressive bowel regimen, given mag citrate and now receiving lactulose -Changed from dilaudid to morphine PRN, antiemetics, IV protonix -If pain unchanged after bowel movement, can officially consult surgery -If not identifiable reason for pain, could possibly be pain 2/2 to mets ? pulmonary embolus on CT abd/pelvis -Metastatic dx, hx of DVT so high risk -CT abd/pelvis: Possible pulmonary embolism versus cluster of lymph nodes/mass in the visualized mediastinum -Cannot do CTA chest due to renal fx -V/Q scan ordered today -Denies chest pain, tachycardia -F/u occult blood, if neg start AC if needed SIRS -WBC improved, pain persists, LA wnl, tachycardia persists -BCx x 2 sets pending -Requested UA to be straight cathed if unable to be provided -NS at 100 cc/hr currently, watch for s/s of fluid overload Hypomagnesemia, acute -Mag low, replacing with mag run -F/u mag in AM HFpEF, not believed to be currently in exacerbation -BNP 2014--> 1973, no incr SOB, cough, fevers, chest pain -No prior hx of CAD, CHF but hx of pericardial effusion -Last echocardiogram above -Will increased SOB, f/u new -On IVFs at 100 cc/hr; however, watch for s/s of fluid overload. 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 -Cr 1.77, incr from 1.44. Baseline close to 1.44 or better -on o/p metformin, CT abd/pelvis this admission with contrast- watch for worsening numbers and if so, consider nephrology consult -no prior nephrology consult, Renal US above -C/w IVFs, daily labs, avoid nephrotoxic meds Macrocytic anemia -Patient's current hb is 9.8--> 7.9. ? dilutional effect? -F/u occult blood -Vit B and folate wnl -Daily CBC -Avoiding AC for now with dropping numbner Transaminitis -Improving -F/u daily CMP Metastatic SCLC to brain, spine, liver -O/p follow up with oncology DM -BS controlled -CLD -Monitor FS Q6H -Start on consistent carb diet when taking good PO. Hypothyroidism -TSH elevated -Increased levothyroxine -f/u o/p GI px -PPI IV DVT px -Teds, SCD DISPOSITION: Watching closely, if does not improve, considering surgery consult- already discussed over phone. VS, I&O, 24H, Fishbone Vital Signs/I&O Vital Signs Date Time Temp Pulse Resp B/P (MAP) Pulse Ox O2 Delivery O2 Flow Rate FiO2 05/18/20 13:03 25 05/18/20 12:00 98.2 122 101/67 (78) 90 Nasal Cannula 2.0 I&O- Last 24 Hours up to 6 AM 05/18/20 06:00 Intake Total 1000 ml Balance 1000 ml Laboratory Data 24H LABS Laboratory Tests 2 05/17/20 17:54: Lactic Acid Level 1.6 05/17/20 17:57: POC Glucose (Misc Panel) 126H, POC Sodium (Misc Panel) 132L, POC Potassium (Misc Panel) 3.9, POC Chloride (Misc Panel) 98, POC Total CO2 (Misc Panel) 24.0, POC Blood Urea Nitrogen (Misc Panel 26, POC Ionized Calcium (Misc Panel) 5.1, POC Creatinine (Misc Panel) 1.5H, POC Hematocrit (Misc Panel) 31.0L 05/17/20 17:58: Neutrophils (%) (Auto) , Nucleated Red Blood Cells % (auto) 0.0, Neutrophils 94H, Band Neutrophils 2, Lymphocytes (Manual) 4L, Anisocytosis 1+, Macrocytosis 2+, Toxic Vacuolation 1+, Platelet Estimate NORMAL, Anion Gap 10, Glomerular Filtration Rate 40.5L, Calcium Level 9.8, Total Bilirubin 0.6, Direct Bilirubin 0.3H, Aspartate Amino Transf (AST/SGOT) 102H, Alanine Aminotransferase (ALT/S GPT) 43, Alkaline Phosphatase 184H, Total Creatine Kinase 88, Creatine Kinase MB < 1.0, Creatine Kinase MB Relative Index 1.14, Troponin I < 0.02, VF-Xbw-M-Type Natriuretic Peptide 2015H, Total Protein 6.2L, Albumin 2.8L, Albumin/Globulin Ratio 0.8L, Lipase 100, Thyroid Stimulating Hormone (TSH) 15.400H, Thyroxine (T4) 12.5H 05/17/20 23:49: Coronavirus (COVID-19)(PCR) NEGATIVE, Influenza Type A (RT-PCR) NEGATIVE, Influenza Type B (RT-PCR) NEGATIVE, Respiratory Syncytial Virus (PCR) NEGATIVE 05/18/20 04:50: Anion Gap 8, Glomerular Filtration Rate 31.9L, Calcium Level 8.4L, Magnesium Level 1.5L, Iron Level 62, Total Iron Binding Capacity 157L, Transferrin % Saturation 39.5, Ferritin 1253H, Total Bilirubin 0.3, Aspartate Amino Transf (AST/SGOT) 88H, Alanine Aminotransferase (ALT/SGPT) 33, Alkaline Phosphatase 139H, Total Protein 5.2L, Albumin 2.4L, Albumin/Globulin Ratio 0.9L, Vitamin B12 Level 879, Folate > 24.0, Hepatitis A IgM Antibody NEGATIVE, Hepatitis B Surface Antigen NEGATIVE, Hepatitis B Core IgM Antibody NEGATIVE, Hepatitis C Antibody Index < 0.0 05/18/20 06:20: Blood Gas Bicarbonate Standard 23.4, Arterial Blood pH 7.443, Arterial Blood Partial Pressure CO2 33.5L, Arterial Blood Partial Pressure O2 174.0H, Arterial Blood Total CO2 23.4, Arterial Blood HCO3 22.4, Arterial Blood Base Excess -1.3, Arterial Blood Oxygen Saturation 99.7H 05/18/20 08:25: Anion Gap 9, Glomerular Filtration Rate 32.4L, Calcium Level 8.1L, Total Bilirubin 0.3, Aspartate Amino Transf (AST/SGOT) 78H, Alanine Aminotransferase (ALT/SGPT) 30, Alkaline Phosphatase 134H, Total Protein 5.1L, Albumin 2.2L, Albumin/Globulin Ratio 0.8L, Nucleated Red Blood Cells % (auto) 0.0 05/18/20 08:40: VK-Vkd-H-Type Natriuretic Peptide 1973H 05/18/20 12:02: Lactic Acid Level 1.3 05/18/20 12:10: Bedside Glucose (Misc Panel) 199H CBC/BMP Laboratory Tests 05/17/20 17:58 05/18/20 04:50 05/18/20 08:25 Microbiology Microbiology 05/18/20 Blood Culture, Received Pending 05/18/20 Blood Culture, Received Pending Current Medications Current Medications Medications (Trade) Dose Ordered Sig/John Route PRN Reason Start Time Stop Time Status Last Admin Dose Admin Acetaminophen (Tylenol Tab) 650 mg Q4H PRN PO PAIN OR FEVER 05/17/20 23:45 05/18/20 00:23 DC Al Hydrox/Mg Hydrox/Simethicone (Mylanta) 30 ml DAILY PRN PO DYSPEPSIA 05/17/20 23:45 Albuterol Sulfate (Proventil, Ventolin Hfa) 2 puff QID PRN INH SHORTNESS OF BREATH 05/18/20 04:00 Allopurinol (Zyloprim) 300 mg DAILY PO 05/18/20 09:00 05/18/20 09:46 Atorvastatin Calcium (Lipitor) 20 mg QHS PO 05/17/20 21:00 Dextrose (Dextrose 50%) 25 ml ASDIRECTED PRN IV SEE LABEL COMMENTS 05/18/20 12:00 Diatrizoate Meglum/ Diatrizoate Sod (Gastrografin) 10 ml Q30M PO 05/17/20 19:30 05/17/20 20:01 DC 05/17/20 19:36 Docusate Sodium (Colace) 100 mg BID PO 05/17/20 21:00 Glucagon (Glucagon) 1 mg ASDIRECTED PRN SC SEE LABEL COMMENTS 05/18/20 12:00 Glucose (Glucose) 16 GM ASDIRECTED PRN PO SEE LABEL COMMENTS 05/18/20 12:00 Heparin Sodium (Porcine) (Heparin) 5,000 units Q12H SC 05/18/20 09:00 05/18/20 09:46 Home Med (Med Rec Complete!) ASDIRECTED XX 05/18/20 00:20 05/18/20 00:19 DC Hydromorphone HCl (Dilaudid) 0.3 mg Q3HP PRN IV MILD PAIN (PS 1-4) 05/17/20 23:35 05/18/20 08:04 Hydromorphone HCl (Dilaudid) 0.6 mg Q3HP PRN IV MODERATE PAIN (PS 5-7) 05/17/20 23:35 05/18/20 13:03 Ibuprofen (Advil) 200 mg Q6H PRN PO PAIN 05/18/20 04:00 05/18/20 06:04 DC Insulin Human Lispro (HumaLOG INSULIN) SEE PROTOCOL TABLE Q6H SC 05/18/20 12:00 05/18/20 12:31 Lactulose (Cephulac) 30 ml DAILYPRN PRN PO NO BOWEL MOVEMENT 05/18/20 11:45 Levothyroxine Sodium (Synthroid) 75 mcg DAILY@06 PO 05/19/20 06:00 Levothyroxine Sodium (Synthroid) 100 mcg DAILY@0600 PO 05/19/20 06:00 Levothyroxine Sodium (Synthroid) 150 mcg DAILY@0600 PO 05/18/20 06:00 05/18/20 11:24 DC 05/18/20 05:49 Magnesium Hydroxide (Milk Of Magnesia) 30 ml DAILY PRN PO CONSTIPATION 05/17/20 23:45 Memantine (Namenda) 10 mg BID PO 05/18/20 09:00 Metoprolol Tartrate (Lopressor) 50 mg BID PO 05/18/20 09:00 Multivitamins (Theragram-M) 1 tab DAILY PO 05/18/20 09:00 05/18/20 09:46 Ondansetron HCl (ZOFRAN INJection) 2 mg Q4HP PRN IV NAUSEA OR VOMITING 05/18/20 02:00 Polyethylene Glycol (Miralax) 1 pkt DAILY PO 05/18/20 09:00 Senna (Senokot) 2 tab BID PO 05/17/20 21:00 Sodium Chloride 1,000 ml @ 100 mls/hr Q10H IV 05/18/20 11:20 05/18/20 12:03 Sodium Chloride 1,000 ml @ 150 mls/hr Q6H40M IV 05/17/20 18:19 05/18/20 01:58 DC 05/17/20 18:40 Allergies Coded Allergies: acetaminophen (Verified Allergy, Unknown, PATIENT HAS LIVER ISSUES, 05/18/20) Steph Santana MD May 18, 2020 15:44
[2020-05-18] MEDS: MORPHINE 2 MG/ML 1ML VIAL (J2270) IV PRN ×2 (16:25→23:50)
[2020-05-18] MEDS ORDERED: PANTOPRAZOLE 40MG VIAL (C9113 PER 1) IV SCH (17:00)
[2020-05-18 19:21] LABS: SODIUM,RANDOM URINE 11 MEQ/L; UREA NITROGEN RANDOM URINE 505 MG/DL
[2020-05-18] MEDS ORDERED: METOPROLOL TART 25 MG TABLET PO SCH (21:00)
[2020-05-18] MEDS: ATORVASTATIN 20 MG TAB PO SCH (22:51)
[2020-05-19] VITALS: BP 105/51
[2020-05-19] MEDS: HumaLOG INSULIN (NovoLOG) PER UNIT SC SCH
--- NOTE | 2020-05-19 00:45 | REPVR ---
PROCEDURE INFORMATION: Exam: CT Chest Without Contrast; Diagnostic Exam date and time: 05/18/2020 11:43 PM Age: 55 years old Clinical indication: Chest pain; Type not specified; Additional info: Hypoactive bowel sounds TECHNIQUE: Imaging protocol: Diagnostic computed tomography of the chest without contrast. Radiation optimization: All CT scans at this facility use at least one of these dose optimization techniques: automated exposure control; mA and/or kV adjustment per patient size (includes targeted exams where dose is matched to clinical indication); or iterative reconstruction. COMPARISON: 1. CT Chest without contrast 2019-05-15 17:[address] ANGIO CHEST 2019-11-17 08:33 FINDINGS: Limitations: Study is limited by the absence of contrast. Lungs: Moderate right lung scattered regions of atelectasis with question small region of consolidation in the right upper lobe. Pleural spaces: Moderate right sided pleural effusion. Heart: Moderate pericardial effusion. Moderate coronary artery calcifications. Mediastinal space: Patulous esophagus with fluid/reflux and a small hiatal hernia. Aorta: Unremarkable. No aortic aneurysm. Lymph nodes: There is some mild nodularity along the pericardium such as a small nodule measuring 1.5 cm along the anterior heart on image 63, question adenopathy, pericarditis, neoplastic disease. Bones/joints: Moderate levoconvex thoracic scoliosis. Lytic lesion involving the L1 vertebral body, refer to abdomen and pelvis CT. There is some mild subtle areas of sclerosis within the skeleton suggesting bony metastases. Soft tissues: Unremarkable. IMPRESSION: 1. Moderate pericardial effusion. Moderate right sided pleural effusion. 2. Moderate right lung scattered regions of atelectasis with question small region of consolidation in the right upper lobe. 3. Patulous esophagus with fluid/reflux and a small hiatal hernia. 4. There is some mild nodularity along the pericardium such as a small nodule measuring 1.5 cm along the anterior heart on image 63, question adenopathy, pericarditis, neoplastic disease. 5. Lytic lesion involving the L1 vertebral body, refer to abdomen and pelvis CT. There is some mild subtle areas of sclerosis within the skeleton suggesting bony metastases. Electronically signed by: Mike Vang On 05/19/2020 00:45:19 AM
[2020-05-19] MEDS ORDERED: HYDROmorphone HCL 2 MG/ML 1ML VIAL (J1170) IV PRN (01:00)
--- NOTE | 2020-05-19 01:00 | REPVR ---
PROCEDURE INFORMATION: Exam: CT Abdomen And Pelvis Without Contrast Exam date and time: 05/18/2020 11:43 PM Age: 55 years old Clinical indication: Abdominal pain; Generalized; Additional info: Hypoactive bowel sounds TECHNIQUE: Imaging protocol: Computed tomography of the abdomen and pelvis without contrast. Radiation optimization: All CT scans at this facility use at least one of these dose optimization techniques: automated exposure control; mA and/or kV adjustment per patient size (includes targeted exams where dose is matched to clinical indication); or iterative reconstruction. COMPARISON: 1. CT ABD/PEL W/IV ORAL CONTRAS 2020-05-17 20:[address] ABD PELVIS W/O CONTRAST 2020-01-07 06:35 FINDINGS: Liver: Diffuse liver enlargement with innumerable hypoattenuating areas compatible with diffuse liver infiltrating metastases. Additionally, free fluid is increased and has a mixed density, question some blood products, infectious material, given the innumerable metastases in the liver, liver rupture is also consideration, although contrast would be necessary to visualize. Gallbladder and bile ducts: Vicarious excretion of contrast in the gallbladder. Pancreas: Normal. No ductal dilation. Spleen: Normal. No splenomegaly. Adrenal glands: Unchanged approximately 2 cm left adrenal nodule. Kidneys and ureters: Residual contrast in the kidneys compatible with contrast renal nephropathy. Stomach and bowel: Gastric antral thickening, correlate for gastritis. Appendix: No evidence of appendicitis. Intraperitoneal space: There is a small to moderate amount of fluid in the abdomen and pelvis. There several small foci of pneumoperitoneum along the upper abdomen, presumably related to a recent procedure, correlate alternatively represents worrisome finding for perforation. Trace free air just below the diaphragm mixed with fluid. Free fluid is increased from the recent comparison study with some mottled appearing gas foci within the fluid in the pelvis (series 205, image 130), question peritonitis, perforation, or infection/abscess. Vasculature: Moderate aortic and iliac atherosclerosis. The masses for which the CT chest was performed, are not well visualized due to the absence of contrast on this, and the CT chest. However, review of the recent CT from 05/17/2020 demonstrates pulmonary emboli, diffuse necrotic mediastinal masses, SVC tumoral thrombus, consider repeat with contrast if possible. Lymph nodes: Unremarkable. No enlarged lymph nodes. Urinary bladder: Unremarkable as visualized. Reproductive: Unremarkable as visualized. Bones/joints: Unchanged sclerotic and lytic L1 vertebral probable metastases and sclerotic lower thoracic and L4 vertebral lesions. Soft tissues: Umbilical fat protruding hernia. There is a supraumbilical hernia containing fat. IMPRESSION: 1. The masses for which the CT was performed, are not well visualized due to the absence of contrast on this, and the CT chest. However, review of the recent CT from 05/17/2020 demonstrates pulmonary emboli, diffuse necrotic mediastinal masses, SVC tumoral thrombus, consider repeat with contrast if possible. 2. Trace free air just below the diaphragm mixed with fluid. Free fluid is increased from the recent comparison study with some mottled appearing gas foci within the fluid in the pelvis (series 205, image 130), question peritonitis, perforation, or infection/abscess. 3. Additionally, free fluid is increased and mixed slightly dense, question some blood products, infectious material. Given the innumerable metastases in the liver, liver rupture is also consideration, although contrast would be necessary to visualize. 4. Diffuse liver enlargement with innumerable hypoattenuating areas compatible with diffuse liver infiltrating metastases. 5. Residual contrast in the kidneys compatible with contrast renal nephropathy. 6. Unchanged 2 cm left adrenal nodule. 7. Unchanged sclerotic and lytic L1 vertebral probable metastases and sclerotic lower thoracic and L4 vertebral lesions. 8. Gastric antral thickening, correlate for gastritis. Electronically signed by: Mike Vang On 05/19/2020 01:00:10 AM
[2020-05-19 01:13] LABS: VENOUS BASE EXCESS -3.7 (-2.0-2.0); VENOUS PARTIAL PRESSURE CO2 42.5 mmHg (38.0-50.0); VENOUS PARTIAL PRESSURE O2 37.2 mmHg (30.0-50.0); VENOUS PH 7.332 UNITS (7.330-7.430); VENOUS STANDARD HCO3 20.8 MEQ/L; VENOUS TOTAL CO2 23.3 MEQ/L (24.0-28.0)
[2020-05-19 01:18] LABS: HEMATOCRIT 31.7 % (36.0-47.0); MEAN CORPUSCULAR HEMOGLOBIN 34.2 pg (27.0-33.0); MEAN CORPUSCULAR HGB CONC 32.8 g/dl (32.0-36.5); MEAN CORPUSCULAR VOLUME 104.3 fl (80.0-96.0); RED BLOOD COUNT 3.04 10^6/uL (4.00-5.40)
[2020-05-19 01:24] LABS: HEMOGLOBIN 10.4 g/dl (12.0-15.5); PLATELET COUNT, AUTOMATED 294 10^3/uL (150-450); WHITE BLOOD COUNT 1.2 10^3/uL (4.0-10.0)
[2020-05-19 01:27] LABS: INR 1.24; PROTHROMBIN TIME 15.9 SECONDS (12.5-14.3)
--- NOTE | 2020-05-19 01:35 | IPNPDOC ---
Text Note Date of Service The patient was seen on 05/19/20. NOTE I was informed by that the patient was in a lot of pain and dyspneic At the time of evaluation around 1145PM on 05/17/20 she was more confused compared to yesterday but was able to tell us that she had severe right upper abdominal pain along with diffuse abdominal pain. We ordered a CT of the chest and abdomen. CT abd/pelvis "IMPRESSION: 1. The masses for which the CT was performed, are not well visualized due to the absence of contrast on this, and the CT chest. However, review of the recent CT from 05/17/2020 demonstrates pulmonary emboli, diffuse necrotic mediastinal masses, SVC tumoral thrombus, consider repeat with contrast if possible. 2. Trace free air just below the diaphragm mixed with fluid. Free fluid is increased from the recent comparison study with some mottled appearing gas foci within the fluid in the pelvis (series 205, image 130), question peritonitis, perforation, or infection/abscess. 3. Additionally, free fluid is increased and mixed slightly dense, question some blood products, infectious material. Given the innumerable metastases in the liver, liver rupture is also consideration, although contrast would be necessary to visualize. 4. Diffuse liver enlargement with innumerable hypoattenuating areas compatible with diffuse liver infiltrating metastases. 5. Residual contrast in the kidneys compatible with contrast renal nephropathy. 6. Unchanged 2 cm left adrenal nodule. 7. Unchanged sclerotic and lytic L1 vertebral probable metastases and sclerotic lower thoracic and L4 vertebral lesions. 8. Gastric antral thickening, correlate for gastritis. " I consulted and called the patient's daughter in law and . The patient's will come to the hospital tonight so we can determine if they would like surgery or to transition to NARCOTICS DETECTIVE. I have upgraded her pain meds back to hydromorphone which is less likely to build up in the setting of renal impairment. ADDENDUM 158AM 05/18/20 The patient's came to the hospital. I informed him of the CT scan findings and because of her advanced cancer and co-morbidities per d/w if he attempted surgery the patient would be unlikely to be able to come off of the ventilator. The patient's agreed to transition the care to focusing on keeping the patient comfortable and signed a MOL[facility] form confirming DNR/DNI with NARCOTICS DETECTIVE. I informed about the change in the plan of care and will order the NARCOTICS DETECTIVE order set shortly. VS,Jose, I+O VS, Marelye, I+O Laboratory Tests 05/18/20 04:50 05/18/20 08:25 05/19/20 01:03 Vital Signs Date Time Temp Pulse Resp B/P (MAP) Pulse Ox O2 Delivery O2 Flow Rate FiO2 05/19/20 00:00 97.5 116 22 105/51 (69) 92 Non-Rebreather 8.0 I&O- Last 24 Hours up to 6 AM 05/19/20 06:00 Intake Total 275 ml Output Total 150 ml Balance 125 ml KAYLEE RODRIGUEZ MD May 19, 2020 01:35
[2020-05-19] MEDS: HYDROMORPHONE HCL 0.5 MG/ 0.5 ML SYRINGE (J1170 PER 1) IV PRN ×2 (01:43→13:10)
[2020-05-19] MEDS: NS 1,000 ML IV SCH (01:46)
[2020-05-19 01:53] LABS: ALBUMIN 1.9 GM/DL (3.2-5.2); BILIRUBIN,TOTAL 0.2 MG/DL (0.2-1.0); CALCIUM LEVEL 8.8 MG/DL (8.5-10.1); CREATININE FOR GFR 2.87 MG/DL (0.55-1.30); GLOMERULAR FILTRATION RATE 18.3 (>51); POTASSIUM SERUM 4.4 MEQ/L (3.5-5.1); TOTAL PROTEIN 4.8 GM/DL (6.4-8.2)
[2020-05-19] MEDS ORDERED: ALBUTEROL SULFATE 2.5 MG/0.5 ML INH NEB SOLN NEB PRN (02:05)
[2020-05-19] MEDS ORDERED: LORazepam 2 MG/ML VIAL IV PRN ×2 (02:05→03:05)
[2020-05-19] MEDS ORDERED: SCOPOLAMINE 1MG TRANSDERMAL PATCH TOP PRN (03:05)
[2020-05-19] MEDS ORDERED: FLEET ENEMA PR PRN (03:05)
[2020-05-19] MEDS ORDERED: BISACODYL 10 MG SUPP PR PRN (03:05)
[2020-05-19 05:03] LABS: HEMATOCRIT 30.3 % (36.0-47.0); HEMOGLOBIN 10.1 g/dl (12.0-15.5); MEAN CORPUSCULAR HEMOGLOBIN 34.8 pg (27.0-33.0); MEAN CORPUSCULAR HGB CONC 33.3 g/dl (32.0-36.5); MEAN CORPUSCULAR VOLUME 104.5 fl (80.0-96.0); PLATELET COUNT, AUTOMATED 249 10^3/uL (150-450); WHITE BLOOD COUNT 1.4 10^3/uL (4.0-10.0)
[2020-05-19 05:45] LABS: ALBUMIN 1.8 GM/DL (3.2-5.2); BILIRUBIN,TOTAL 0.2 MG/DL (0.2-1.0); CALCIUM LEVEL 8.3 MG/DL (8.5-10.1); CREATININE FOR GFR 3.07 MG/DL (0.55-1.30); GLOMERULAR FILTRATION RATE 16.9 (>51); MAGNESIUM LEVEL 9.1 MG/DL (1.8-2.4); POTASSIUM SERUM 4.8 MEQ/L (3.5-5.1); TOTAL PROTEIN 4.7 GM/DL (6.4-8.2)
[2020-05-19] MEDS ORDERED: LEVOTHYROXINE 75MCG TABLET (0.075MG) PO SCH (06:00)
[2020-05-19] MEDS ORDERED: LEVOTHYROXINE 100MCG TABLET (0.1MG) PO SCH (06:00)
[2020-05-19] MEDS: SENNA 8.6 MG TAB (SENOKOT) PO SCH ×2 (09:00→21:00)
[2020-05-19] MEDS: MIRALAX *UNIT DOSE* 17GM PACKET PO SCH (09:00)
--- NOTE | 2020-05-19 15:09 | IPNPDOC ---
Date Seen The patient was seen on 05/19/20. Progress Note SUBJECTIVE: Overnight patient's mental status and VS worsened. Repeat CT scan later in the evenin. Review of the recent CT from 05/17/2020 demonstrates pulmonary emboli, diffuse necrotic mediastinal masses, SVC tumoral thrombus, consider repeat with contrast if possible. 2. Trace free air just below the diaphragm mixed with fluid. Free fluid is increased from the recent comparison study with some mottled appearing gas foci within the fluid in the pelvis (series 205, image 130), question peritonitis, perforation, or infection/abscess. 3. free fluid is increased and mixed slightly dense, question some blood products, infectious material. Given the innumerable metastases in the liver, liver rupture is also consideration, although contrast would be necessary to visualize. CT chest without contrast : 1. Moderate pericardial effusion. Moderate right sided pleural effusion. 2. Moderate right lung scattered regions of atelectasis with question small region of consolidation in the right upper lobe. Discussed with surgery who felt that patient would have poor outcome if taken to surgery with multiple chronic comorbidies, as per Dr. Castro. Dr. Park, [facility] hospitalist, discussed case, relayed information from surgery to and level of care as advanced at that time to RESP THER. At this time patient was very lethargic, altered and was requiring O2 for increased SOB. RESP THER orders were placed. This AM patient had no acute complaints and was very lethargic, noncommunicative, family was at bedside. Appeared comfortable. OBJECTIVE: PHYSICAL EXAMINATION: VITAL SIGNS: none GENERAL APPEARANCE: ashened appearance, resting in bed, noncommunicative. HEENT: AT/NC, alopecia Neck: symmetrical, no JVD CARDIOVASCULAR: Tachycardic, sinus rhythm. No murmurs, rubs, gallops LUNGS: increased respiratory rate, decreased breath sounds b/l , no wheezing, rhonchi or rales ABDOMEN: Distended epigastric protrusion/hernia. No documented tendernss MUSCULOSKELETAL: No joint deformity EXTREMITIES: No peripheral edema. no cyanosis or clubbing NEUROLOGICAL: CN 2-12 intact, Clear speech. No focal deficits LABORATORY DATA: None MICROBIOLOGY: BCx NG at 24 hours IMAGING: Pending echocardiogram 05/18/20. CT chest repeat without contrast: 1. Moderate pericardial effusion. Moderate right sided pleural effusion. 2. Moderate right lung scattered regions of atelectasis with question small region of consolidation in the right upper lobe. 3. Patulous esophagus with fluid/reflux and a small hiatal hernia. 4. There is some mild nodularity along the pericardium such as a small nodule measuring 1.5 cm along the anterior heart on image 63, question adenopathy, pericarditis, neoplastic disease. 5. Lytic lesion involving the L1 vertebral body, refer to abdomen and pelvis CT. There is some mild subtle areas of sclerosis within the skeleton suggesting bony metastases. CT abd/pelvis repeat: 1. The masses for which the CT was performed, are not well visualized due to the absence of contrast on this, and the CT chest. However, review of the recent CT from 05/17/2020 demonstrates pulmonary emboli, diffuse necrotic mediastinal masses, SVC tumoral thrombus, consider repeat with contrast if possible. 2. Trace free air just below the diaphragm mixed with fluid. Free fluid is increased from the recent comparison study with some mottled appearing gas foci within the fluid in the pelvis (series 205, image 130), question peritonitis, perforation, or infection/abscess. 3. Additionally, free fluid is increased and mixed slightly dense, question some blood products, infectious material. Given the innumerable metastases in the liver, liver rupture is also consideration, although contrast would be necessary to visualize. 4. Diffuse liver enlargement with innumerable hypoattenuating areas compatible with diffuse liver infiltrating metastases. 5. Residual contrast in the kidneys compatible with contrast renal nephropathy. 6. Unchanged 2 cm left adrenal nodule. 7. Unchanged sclerotic and lytic L1 vertebral probable metastases and sclerotic lower thoracic and L4 vertebral lesions. 8. Gastric antral thickening, correlate for gastritis. Renal US: Stable sonographic appearance of the kidneys as compared with 03/22/20, without demonstrated abnormality. CXR from admission: No acute disease CT Abd/Pelvis from admission: Extensive metastatic disease in the liver. Possible pulmonary embolism versus cluster of lymph nodes/mass in the visualized mediastinum. CTA chest is recommended for evaluation. Small pericardial effusion. Small right pleural effusion. Metastatic disease in the vertebra. Umbilical hernia containing fat. There is a supraumbilical hernia containing fat. Echocadiogram 2019: EF 60-65% Normal global left ventricular systolic function. There are some features of grade 1 left ventricular diastolic dysfunction manifested by abnormal relaxation. Large pericardial effusion that may be related to malignancy with some early echocardiographic evidence of cardiac tamponade. It was reported that the patient was taken to the OR for pericardial window and biopsy. She was found to have on CT angio a large pericardial effusion with a mediastinal mass. MICROBIOLOGY: Please see below. 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 Patient acutely decompensated evening of 05/18/20, per CT highly suspicious for liver metastatic lesion rupture, bleed. Acute hypoxic respiratory failure likely 2/2 to pulmonary embolism ? vs. ? developed PNA, pleural effusion, pericardial effusion? Made RESP THER early AM on 05/19/20. DIAGNOSES AT TIME OF MAKING RESP THER: Severe abdominal pain possibly 2/2 to metastatic liver disease with likely liver lesion rupture/bleed Pulmonary emboli Diffuse necrotic mediastinal masses ? SVC tumoral thrombus SIRS, cannot r/o developing sepsis with ? 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 VS, I&O, 24H, Fishbone Vital Signs/I&O Vital Signs Date Time Temp Pulse Resp B/P (MAP) Pulse Ox O2 Delivery O2 Flow Rate FiO2 05/19/20 01:53 22 05/19/20 00:00 8.0 05/19/20 00:00 97.5 116 105/51 (69) 92 Non-Rebreather l I&O- Last 24 Hours up to 6 AM 05/19/20 06:00 Intake Total 275 ml Output Total 150 ml Balance 125 ml Laboratory Data 24H LABS Laboratory Tests 2 05/18/20 18:50: Urine Color YELLOW, Urine Appearance HAZY, Urine pH 5.0, Urine Specific [place] 1.031, Urine Protein NEGATIVE, Urine Glucose (UA) NEGATIVE, Urine Ketones NEGATIVE, Urine Blood NEGATIVE, Urine Nitrite NEGATIVE, Urine Bilirubin NEGATIVE, Urine Urobilinogen 0.2, Urine Leukocyte Esterase NEGATIVE, Urine WBC (Auto) 1, Urine RBC (Auto) 1, Urine Hyaline Casts (Auto) 0, Urine Bacteria (Auto) NEGATIVE, Urine Squamous Epithelial Cells 3, Urine Amorphous Sediment SMALLH, Urine Sperm (Auto) , Urine Random Sodium 11, Urine Random Urea Nitrogen 505 05/18/20 18:55: Bedside Glucose (Misc Panel) 198H 05/18/20 23:43: Bedside Glucose (Misc Panel) 91 05/19/20 01:03: Nucleated Red Blood Cells % (auto) 0.0, Prothrombin Time 15.9H, Prothromb Time International Ratio 1.24, Blood Gas Bicarbonate Standard 20.8, Venous Blood pH 7.332, Venous Blood Partial Pressure CO2 42.5, Venous Blood Partial Pressure O2 37.2, Venous Blood Total Carbon Dioxide 23.3L, Venous Blood HCO3 22.0L, Venous Blood Oxygen Saturation 67.0, Venous Blood Base Excess -3.7L, Anion Gap 10, Glomerular Filtration Rate 18.3L, Calcium Level 8.8, Total Bilirubin 0.2, Aspartate Amino Transf (AST/SGOT) 85H, Alanine Aminotransferase (ALT/SGPT) 27, Alkaline Phosphatase 117, Total Protein 4.8L, Albumin 1.9L, Albumin/Globulin Ratio 0.7L 05/19/20 04:40: Nucleated Red Blood Cells % (auto) 0.0, Anion Gap 7L, Glomerular Filtration Rate 16.9L, Calcium Level 8.3L, Magnesium Level 9.1*H, Total Bilirubin 0.2, Aspartate Amino Transf (AST/SGOT) 105H, Alanine Aminotransferase (ALT/SGPT) 35, Alkaline Phosphatase 114, Total Protein 4.7L, Albumin 1.8L, Albumin/Globulin Ratio 0.6L CBC/BMP Laboratory Tests 05/19/20 01:03 05/19/20 04:40 Microbiology Microbiology 05/18/20 Blood Culture - Preliminary, Resulted No growth after 24 hours . All specim... 05/18/20 Blood Culture - Preliminary, Resulted No growth after 24 hours . All specim... Current Medications Current Medications Medications (Trade) Dose Ordered Sig/John Route PRN Reason Start Time Stop Time Status Last Admin Dose Admin Acetaminophen (Tylenol Tab) 650 mg Q4H PRN PO PAIN OR FEVER 05/17/20 23:45 05/18/20 00:23 DC Al Hydrox/Mg Hydrox/Simethicone (Mylanta) 30 ml DAILY PRN PO DYSPEPSIA 05/17/20 23:45 05/19/20 03:09 DC Albuterol Sulfate (Proventil Neb) 2.5 mg Q2HP PRN NEB SOB/WHEEZING 05/19/20 02:05 Albuterol Sulfate (Proventil, Ventolin Hfa) 2 puff QID PRN INH SHORTNESS OF BREATH 05/18/20 04:00 Allopurinol (Zyloprim) 300 mg DAILY PO 05/18/20 09:00 05/19/20 03:09 DC 05/18/20 09:46 Atorvastatin Calcium (Lipitor) 20 mg QHS PO 05/17/20 21:00 05/19/20 03:09 DC Bisacodyl (Dulcolax Suppository) 10 mg Q24HP PRN FL CONSTIPATION 05/19/20 03:05 Dextrose (Dextrose 50%) 25 ml ASDIRECTED PRN IV SEE LABEL COMMENTS 05/18/20 12:00 05/19/20 03:09 DC Diatrizoate Meglum/ Diatrizoate Sod (Gastrografin) 10 ml Q30M PO 05/17/20 19:30 05/17/20 20:01 DC 05/17/20 19:36 Docusate Sodium (Colace) 100 mg BID PO 05/17/20 21:00 05/19/20 03:09 DC Glucagon (Glucagon) 1 mg ASDIRECTED PRN SC SEE LABEL COMMENTS 05/18/20 12:00 05/19/20 03:09 DC Glucose (Glucose) 16 GM ASDIRECTED PRN PO SEE LABEL COMMENTS 05/18/20 12:00 05/19/20 03:09 DC Heparin Sodium (Porcine) (Heparin) 5,000 units Q12H SC 05/18/20 09:00 05/19/20 03:09 DC 05/18/20 22:52 Home Med (Med Rec Complete!) ASDIRECTED XX 05/18/20 00:20 05/18/20 00:19 DC Hydromorphone HCl (Dilaudid) 0.3 mg Q3HP PRN IV MILD PAIN (PS 1-4) 05/17/20 23:35 05/18/20 15:02 DC 05/18/20 08:04 Hydromorphone HCl (Dilaudid) 0.6 mg Q3HP PRN IV MODERATE PAIN (PS 5-7) 05/17/20 23:35 05/18/20 15:02 DC 05/18/20 13:03 Hydromorphone HCl (Dilaudid) 1 mg Q3HP PRN IV MILD PAIN (PS 1-4) 05/19/20 01:00 05/19/20 13:10 Hydromorphone HCl (Dilaudid) 1 mg Q5HP PRN IV MODERATE PAIN (PS 5-7) 05/18/20 15:05 05/18/20 16:09 DC Hydromorphone HCl (Dilaudid) 1.6 mg Q3HP PRN IV MODERATE/SEVERE PAIN (PS 5-10) 05/19/20 01:00 05/26/20 00:59 Ibuprofen (Advil) 200 mg Q6H PRN PO PAIN 05/18/20 04:00 05/18/20 06:04 DC Insulin Human Lispro (HumaLOG INSULIN) SEE PROTOCOL TABLE Q6H SC 05/18/20 12:00 05/19/20 03:09 DC 05/18/20 19:00 Lactulose (Cephulac) 30 ml DAILYPRN PRN PO NO BOWEL MOVEMENT 05/18/20 11:45 05/19/20 03:09 DC 05/18/20 15:38 Levothyroxine Sodium (Synthroid) 75 mcg DAILY@06 PO 05/19/20 06:00 05/19/20 03:09 DC Levothyroxine Sodium (Synthroid) 100 mcg DAILY@0600 PO 05/19/20 06:00 05/19/20 03:09 DC Levothyroxine Sodium (Synthroid) 150 mcg DAILY@0600 PO 05/18/20 06:00 05/18/20 11:24 DC 05/18/20 05:49 Lorazepam (Ativan) 1 mg Q2HP PRN IV ANXIETY 05/19/20 03:05 05/19/20 13:10 Lorazepam (Ativan) 2 mg Q2HP PRN IV anxiety / dyspnea 05/19/20 02:05 05/19/20 03:15 DC Magnesium Hydroxide (Milk Of Magnesia) 30 ml DAILY PRN PO CONSTIPATION 05/17/20 23:45 05/19/20 03:09 DC Memantine (Namenda) 10 mg BID PO 05/18/20 09:00 05/19/20 03:09 DC Metoprolol Tartrate (Lopressor) 25 mg BID PO 05/18/20 21:00 05/19/20 03:09 DC Metoprolol Tartrate (Lopressor) 50 mg BID PO 05/18/20 09:00 05/18/20 15:18 DC Morphine Sulfate (Morphine Sulfate Inj) 2 mg Q6H PRN IV MODERATE PAIN (PS 5-7) 05/18/20 15:00 05/19/20 01:25 DC 05/18/20 23:50 Multivitamins (Theragram-M) 1 tab DAILY PO 05/18/20 09:00 05/19/20 03:09 DC 05/18/20 09:46 Ondansetron HCl (ZOFRAN INJection) 2 mg Q4HP PRN IV NAUSEA OR VOMITING 05/18/20 02:00 Pantoprazole Sodium (Protonix) 40 mg Q24H IV 05/18/20 17:00 05/19/20 03:09 DC 05/18/20 16:24 Polyethylene Glycol (Miralax) 1 pkt DAILY PO 05/18/20 09:00 Scopolamine (Scopolamine) 1 mg Q3DP PRN TOP EXCESSIVE SECRETIONS 05/19/20 03:05 Senna (Senokot) 2 tab BID PO 05/17/20 21:00 Sodium Biphosphate/ Sodium Phosphate (Fleet Enema) 1 ea Q3DP PRN FL CONSTIPATION 05/19/20 03:05 Sodium Chloride 1,000 ml @ 100 mls/hr Q10H IV 05/18/20 11:20 05/19/20 03:09 DC 05/19/20 01:46 Sodium Chloride 1,000 ml @ 150 mls/hr Q6H40M IV 05/17/20 18:19 05/18/20 01:58 DC 05/17/20 18:40 Allergies Coded Allergies: acetaminophen (Verified Allergy, Unknown, PATIENT HAS LIVER ISSUES, 05/18/20) Steph Santana MD May 19, 2020 15:09
--- NOTE | 2020-05-20 14:38 | DS.PDOC ---
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 Patient presented to the ER with acute onset severe upper abdominal pain that is constant and nature and radiates down either side of her abdomen. Patient states that her pain is severe to the point she feels as though she is having difficulty taking deep breaths and catching her breath. Patient has experienced two episodes of non-bloody emesis while in the ER as well. Patient has never experienced anything like this before. Patient denies any precipitating events. Patient denies associated diarrhea, dark stools, chest pains, palpitations, dizziness, lightheadedness, syncope. CT abd/pelvis in ER showed: Extensive metastatic disease in the liver, possible pulmonary embolism versus cluster of lymph nodes/mass in the visualized mediastinum.-CTA chest is recommended for evaluation, small pericardial effusion, small right pleural effusion, metastatic disease in the vertebra. WBC was elevated, she appeared to be in renal failure, LA wnl and she appeared uncomfortable. She was admitted for intractable abdominal pain, n/v/d possibly 2/2 to hernia vs. metastatic liver disease vs. ulcer? HOSPITAL COURSE: Severe abdominal pain continued but was relieved intermittently with IV morphi ne. With CT abd/pelvis above, case was discussed with surgery, Dr. Castro who recommended aggressive bowel regimen as she has a lot of stool possibly pushing up on upper abdomen causing discomfort. he did not see a surgical issue at the time. Aggressive bowel regimen, given mag citrate and also received lactulose Antiemetics, IV protonix were given. Surgery also stated that if pain should worsen then they would officially consult. For ? pulmonary embolus on CT abd/pelvis, she was high risk with metastatic dx, hx of DVT. We could not do CTA chest due to renal fx, so V/Q scan ordered but unable to be done on first admission day. Due to lower than normal H/H, occult blood was ordered. Caution was taken with anticoagulants due to extensive mets, with history to the brain and us couldn't r/o bleed with H/H dropping. U/o was poor, urinary catheter was advance with little that came out. She remained on IVFs. Overnight 05/18/20 into 05/19/20, patient's pain, mental status and VS worsened. Repeat CT scan later in the evenin. Review of the recent CT from 05/17/2020 demonstrates pulmonary emboli, diffuse necrotic mediastinal masses, SVC tumoral thrombus, consider repeat with contrast if possible. 2. Trace free air just below the diaphragm mixed with fluid. Free fluid is increased from the recent comparison study with some mottled appearing gas foci within the fluid in the pelvis (series 205, image 130), question peritonitis, perforation, or infection/abscess. 3. free fluid is increased and mixed slightly dense, question some blood products, infectious material. Given the innumerable metastases in the liver, liver rupture is also consideration, although contrast would be necessary to visualize. CT chest without contrast : 1. Moderate pericardial effusion. Moderate right sided pleural effusion. 2. Moderate right lung scattered regions of atelectasis with question small region of consolidation in the right upper lobe. Overnight team discussed with surgery who felt that patient would have poor outcome if taken to surgery with multiple chronic comorbidies, as per Dr. Castro. Dr. Park, [facility] hospitalist, discussed case, relayed information from surgery to and level of care as advanced at that time to DIE CASTING MACHINE MAINTAINER. At this time patient was very lethargic, had increased work/ difficulty breathing and was altered. DIE CASTING MACHINE MAINTAINER orders were placed. On 05/20/20 listed time of was 00:53. 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 Pericardiocentesis with pericardial window 2019 2. Gamma knife for brain mets 3. Lung tissue biopsy PHYSICAL EXAMINATION: Not performed as I was not physician present at time of LABORATORY DATA: None MICROBIOLOGY: BCx NG IMAGING: Pending echocardiogram 05/18/20. CT chest repeat without contrast: 1. Moderate pericardial effusion. Moderate right sided pleural effusion. 2. Moderate right lung scattered regions of atelectasis with question small region of consolidation in the right upper lobe. 3. Patulous esophagus with fluid/reflux and a small hiatal hernia. 4. There is some mild nodularity along the pericardium such as a small nodule measuring 1.5 cm along the anterior heart on image 63, question adenopathy, pericarditis, neoplastic disease. 5. Lytic lesion involving the L1 vertebral body, refer to abdomen and pelvis CT. There is some mild subtle areas of sclerosis within the skeleton suggesting bony metastases. CT abd/pelvis repeat: 1. The masses for which the CT was performed, are not well visualized due to the absence of contrast on this, and the CT chest. However, review of the recent CT from 05/17/2020 demonstrates pulmonary emboli, diffuse necrotic mediastinal masses, SVC tumoral thrombus, consider repeat with contrast if possible. 2. Trace free air just below the diaphragm mixed with fluid. Free fluid is increased from the recent comparison study with some mottled appearing gas foci within the fluid in the pelvis (series 205, image 130), question peritonitis, perforation, or infection/abscess. 3. Additionally, free fluid is increased and mixed slightly dense, question some blood products, infectious material. Given the innumerable metastases in the liver, liver rupture is also consideration, although contrast would be necessary to visualize. 4. Diffuse liver enlargement with innumerable hypoattenuating areas compatible with diffuse liver infiltrating metastases. 5. Residual contrast in the kidneys compatible with contrast renal nephropathy. 6. Unchanged 2 cm left adrenal nodule. 7. Unchanged sclerotic and lytic L1 vertebral probable metastases and sclerotic lower thoracic and L4 vertebral lesions. 8. Gastric antral thickening, correlate for gastritis. Renal US: Stable sonographic appearance of the kidneys as compared with 03/22/20, without demonstrated abnormality. CXR from admission: No acute disease CT Abd/Pelvis from admission: Extensive metastatic disease in the liver. Possible pulmonary embolism versus cluster of lymph nodes/mass in the visualized mediastinum. CTA chest is recommended for evaluation. Small pericardial effusion. Small right pleural effusion. Metastatic disease in the vertebra. Umbilical hernia containing fat. There is a supraumbilical hernia containing fat. Echocadiogram 2020: EF 60-65% Normal global left ventricular systolic function. There are some features of grade 1 left ventricular diastolic dysfunction manifested by abnormal relaxation. Large pericardial effusion that may be related to malignancy with some early echocardiographic evidence of cardiac tamponade. It was reported that the patient was taken to the OR for pericardial window and biopsy. She was found to have on CT angio a large pericardial effusion with a mediastinal mass. MICROBIOLOGY: Please see below. DIAGNOSES AT TIME OF : Metastatic liver disease with likely liver lesion rupture/bleed Pulmonary emboli Diffuse necrotic mediastinal masses Metastatic SCLC to brain, spine, liver ? SVC tumoral thrombus SIRS, cannot r/o developing sepsis with ? RL PNA seen on new CT Mod pericardial effusion Hypomagnesemia, acute HFpEF Hypotension possibly 2/2 to decreased PO intake, medications and acute issues above Acute kidney injury with likely CKD Stage 2-3 Macrocytic anemia Transaminitis DM Hypothyroidism TIME SPENT ON DISCHARGE: 35 minutes. Vital Signs/I&Os Vital Signs Date Time Temp Pulse Resp B/P (MAP) Pulse Ox O2 Delivery O2 Flow Rate FiO2 05/19/20 20:00 6.0 05/19/20 01:53 22 05/19/20 00:00 97.5 116 105/51 (69) 92 Non-Rebreather I&O- Last 24 Hours up to 6 AM 05/20/20 06:00 Intake Total 0 ml Balance 0 ml Microbiology Microbiology 05/18/20 Blood Culture - Preliminary, Resulted No Growth after 48 hours. All Specime... 05/18/20 Blood Culture - Preliminary, Resulted No Growth after 48 hours. All Specime... Discharge Medications Scheduled Allopurinol (Zyloprim) 300 Mg Tablet, 300 MG PO DAILY, (Reported) Atorvastatin Calcium (Atorvastatin Calcium) 20 Mg Tablet, 20 MG PO QHS, (Reported) Gluc Catalan/Chondro Catalan A/Vit C/Mn (Glucosamine Chondroitin Tab) 1 Each Tablet, 1 TAB PO BID, (Reported) Levothyroxine Sodium (Synthroid) 150 Mcg Tablet, 150 MCG PO DAILY, (Reported) Memantine HCl (Memantine HCl) 10 Mg Tablet, 10 MG PO BID, (Reported) Metformin HCl (Metformin HCl) 1,000 Mg Tablet, 1,000 MG PO BID, (Reported) Metoprolol Tartrate (Metoprolol Tartrate) 50 Mg Tab, 50 MG PO BID, (Reported) Multivitamin,Therapeutic (Thera-Tabs) 1 Each Tablet, 1 TAB PO DAILY, (Reported) Scheduled PRN Albuterol Sulfate (Proair Hfa) 8.5 Gm Hfa.aer.ad, 2 PUFF INH QID PRN for SHORTNESS OF BREATH, (Reported) Ibuprofen (Ibuprofen) 200 Mg Tablet, 200 MG PO Q6H PRN for PAIN, (Reported) Ondansetron HCl (Ondansetron HCl) 8 Mg Tablet, 8 MG PO Q6H PRN for NAUSEA OR VOMITING Miscellaneous Medications [Patient Comment] , (Reported) MED REC COMPLETED VIA EXTERNAL MED HISTORY AND PHONE CALL WITH SPOUSE Allergies Coded Allergies: acetaminophen (Verified Allergy, Unknown, PATIENT HAS LIVER ISSUES, 05/18/20) Steph Santana MD May 20, 2020 14:38
--- NOTE | 2020-05-21 15:32 | ECHO ---
DATE OF PROCEDURE: 05/19/2020 Age: 55 Gender: Female REFERRING PHYSICIAN: Steph Santana M.D. PATIENT LOCATION: Room 3217. REASON FOR STUDY: Shortness of breath. 2D MEASUREMENTS: DOPPLER MEASUREMENT Peak velocity across the aortic valve 1.2 m/s Peak velocity across the LVOT 1.0 m/s Mitral E 0.6 Mitral A 0.5 with a ratio of 1.2 2D COMMENTS: 1. Technically limited due to poor acoustic window and the patient was not cooperative during the test. 2. Normal left ventricular size, wall thickness, and normal global left ventricular systolic function estimated at 60% to 65%. 3. Subjectively, the left atrium appeared to be normal. The right atrium and the right ventricle also appeared to be normal. 4. The atrial septum appeared to be normal without evidence of defect or shunt. 5. Normal aortic root. 6. No pericardial effusion seen. 7. The aortic valve, mitral valve, and tricuspid valve appeared to be normal. 8. The inferior vena cava was not well visualized. 9. Doppler was limited, but no valvular abnormalities detected. IMPRESSION: 1. Technically limited study due to poor acoustic window and the fact that the patient was not cooperative. 2. Normal global ventricular systolic function. Assessment of the left ventricular diastolic function was normal. 3. No significant valvular abnormalities detected. MTDD
== END 2020-05-20 00:53 | disposition expired | DRG 281 ==
LOC: M ED 17:08 → M ED INP 23:08 → ENRESERV 05-18 01:28 → M PCU 05-18 01:54
PROVIDERS: ADMIT Internal Medicine; ATTEND Internal Medicine
DX: C78.7 Secondary malignant neoplasm of liver and intrahepatic bile duct (principal); J96.01 Acute respiratory failure with hypoxia; I26.99 Other pulmonary embolism without acute cor pulmonale; J90 Pleural effusion, not elsewhere classified; J18.9 Pneumonia, unspecified organism; N17.9 Acute kidney failure, unspecified; C79.31 Secondary malignant neoplasm of brain; I95.9 Hypotension, unspecified; I50.32 Chronic diastolic (congestive) heart failure; I31.3 Pericardial effusion (noninflammatory); C79.51 Secondary malignant neoplasm of bone; E83.42 Hypomagnesemia; C34.90 Malignant neoplasm of unspecified part of unspecified bronchus or lung; K76.89 Other specified diseases of liver; I12.9 Hypertensive chronic kidney disease with stage 1 through stage 4 chronic kidney disease, or unspecified chronic kidney disease; Z51.5 Encounter for palliative care; Z79.899 Other long term (current) drug therapy; Z88.6 Allergy status to analgesic agent; E11.9 Type 2 diabetes mellitus without complications